=== PATIENT | female | born 1945 | race Caucasian/White ===

== ENCOUNTER 2017-12-02 10:09 | Outpatient (RCR) | payer MEDICARE, SELFPAY ==
[2017-11-25 10:44] LABS: Prothrombin Time (Protime)PT. 50.3 SECONDS (11.7-14.9)
[2017-11-25 11:25] LABS: International Normalized Ratio 5.8
[2017-11-28 10:56] LABS: International Normalized Ratio 4.5; Prothrombin Time (Protime)PT. 40.9 SECONDS (11.7-14.9)
[2017-12-02 10:35] LABS: International Normalized Ratio 1.6; Prothrombin Time (Protime)PT. 18.7 SECONDS (11.7-14.9)
== END 2017-12-02 10:10 | disposition home or self-care (01) ==
LOC: LAB 10:09
PROVIDERS: Family Provider Family Medicine; PCP Family Medicine; Visit Provider Internal Medicine Cardiovascular Disease
DX: I48.92 Unspecified atrial flutter (principal); Z79.01 Long term (current) use of 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
CPT/HCPCS: 36415; 85610

== ENCOUNTER → 2018-03-10 10:57 | Outpatient (CLI) | payer MEDICARE, SELFPAY ==
[2018-03-10 12:38] LABS: AST(SGOT) 28 U/L (15-37); Alanine Aminotransfer ALT/SGPT 33 U/L (13-56); Albumin, Serum 3.4 g/dL (3.2-5.0); Alkaline Phosphatase 108 U/L (45-117); Bilirubin, Direct 0.11 mg/dL (0.00-0.30); Magnesium 2.3 mg/dL (1.6-2.6); Protein, Total 7.4 g/dL (6.4-8.2); T4 Free Direct 1.37 ng/dL (0.76-1.46); Thyroid Stim Hormone (TSH) 1.16 uIU/mL (0.358-3.74)
== END ==
PROVIDERS: Family Provider Family Medicine; PCP Family Medicine; Visit Provider Nurse Practitioner Family
DX: E78.5 Hyperlipidemia, unspecified (principal); I48.92 Unspecified atrial flutter; Z87.74 Personal history of (corrected) congenital malformations of heart and circulatory system; Z79.899 Other long term (current) drug therapy
CPT/HCPCS: 36415; 80076; 83735; 84439; 84443

== ENCOUNTER → 2018-03-28 06:43 | Outpatient (CLI) | payer MEDICARE, SELFPAY ==
--- NOTE | 2018-03-28 14:41 | PFTCOMP ---
COMPLETE PULMONARY FUNCTION TEST INTERPRETATION Brief HPI: Patient is a 73 year old female, currently under the care of Sampson Cuevas, who presents to [facility] for complete pulmonary function tests secondary to diagnosis of hypertension. Respiratory therapist reports good effort and reproducible results. Interpretation: Forced expiration spirometry shows no large airways obstructive ventilatory defect with an FEV1 of 84% predicted. There is no significant bronchodilator response by ATS criteria. Spirograms are of good quality and plateau normally. The respiratory flow volume loop shows a normal pattern. Lung volumes by body plethysmography show a normal total lung capacity at 3.55 L, 85% predicted. All other lung volumes are within normal limits. Diffusion capacity by carbon monoxide is normal at 89% predicted. The airway resistance is elevated. Compared to previous pulmonary function tests from 08/23/2016, there has been a significant improvement in in DLCO by 38%. Impression: These pulmonary function tests are grossly within normal limits. There has been improvement compared to previous testing
--- NOTE | 2018-03-28 14:44 | PFTCOMP_ITS ---
COMPLETE PULMONARY FUNCTION TEST INTERPRETATION Brief HPI: Patient is a 73 year old female, currently under the care of Sampson Cuevas , who presents to [facility] for complete pulmonary function tests secondary to diagnosis of hypertension. Respiratory therapist reports good effort and reproducible results. Interpretation: Forced expiration spirometry shows no large airways obstructive ventilatory defect with an FEV1 of 84% predicted. There is no significant bronchodilator response by ATS criteria. Spirograms are of good quality and plateau normally. The respiratory flow volume loop shows a normal pattern. Lung volumes by body plethysmography show a normal total lung capacity at 3.55 L , 85% predicted. All other lung volumes are within normal limits. Diffusion capacity by carbon monoxide is normal at 89% predicted. The airway resistance is elevated. Compared to previous pulmonary function tests from 08/23/2016, there has been a significant improvement in in DLCO by 38%. Impression: These pulmonary function tests are grossly within normal limits. There has been improvement compared to previous testing
== END ==
PROVIDERS: Family Provider Family Medicine; PCP Family Medicine; Visit Provider Nurse Practitioner Family
DX: I10 Essential (primary) hypertension (principal); I48.92 Unspecified atrial flutter; Z79.01 Long term (current) use of 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; Z79.899 Other long term (current) drug therapy
CPT/HCPCS: 94060; 94726; 94729

== ENCOUNTER → 2018-07-16 16:12 | Outpatient (CLI) | payer MEDICARE, SELFPAY ==
[2018-07-16 18:09] LABS: ALB/GLOB Ratio 0.9 RATIO (0.9-2.4); AST(SGOT) 34 U/L (15-37); Alanine Aminotransfer ALT/SGPT 36 U/L (13-56); Albumin, Serum 3.7 g/dL (3.2-5.0); Alkaline Phosphatase 113 U/L (45-117); Anion Gap 10 (5-15); BUN 13 mg/dL (7-18); BUN/Creat Ratio 13.4 RATIO (10-20); Calcium,Total 8.9 mg/dL (8.5-10.1); Chloride 104 mmol/L (98-107); Cholesterol 235 mg/dL (200); Creatinine, Serum 0.97 mg/dL (0.55-1.02); EST Glomerular Filtration Rate 60 mL/min (>60); Est Glom Filt Rate - Afr Amer 72 mL/min (>60); Globulin 4.2 g/dL (2.2-4.2); Glucose 92 mg/dL (74-106); High Density Lipoprotein 56 mg/dL; Magnesium 2.3 mg/dL (1.6-2.6); Potassium 4.2 mmol/L (3.5-5.1); Protein, Total 7.9 g/dL (6.4-8.2); Sodium Level 143 mmol/L (136-145); T4 Free Direct 1.53 ng/dL (0.76-1.46); Thyroid Stim Hormone (TSH) 1.03 uIU/mL (0.358-3.74); Triglycerides 97 mg/dL; Uric Acid 2.7 mg/dL (2.6-6.0); Very Low Density Lipoprotein 19 mg/dL (5-40)
[2018-07-16 18:12] LABS: Vitamin B12 577 pg/mL (211-911)
[2018-07-16 19:39] LABS: Absolute Neutrophil Count 3.4 X10^3/uL (2.0-7.7); Basophil# 0.02 X10^3/uL; Basophil% 0.4 % (0-1); Eosinophil# 0.05 X10^3/uL; Hematocrit 40.8 % (37-47); Hemoglobin 13.3 g/dl (12.0-15.0); Lymphocyte % 20.1 % (19-41); Mean Corp Hgb Conc 32.6 g/gl (32-36); Mean Corpuscular Hgb 29.2 pg (27.0-32.0); Mean Corpuscular Volume 89.5 fL (81-99); Mean Platelet Vol. 11.1 fl (6.2-12.0); Monocyte# 0.47 X10^3/uL; Monocyte% 9.4 % (0-10); Neutrophil # 3.43 X10^3/uL (2.7-7.7); Neutrophil % 68.9 % (47-70); Platelet Count 156 K/mm3 (150-450); RBC Distribution Width CV 14.9 % (11.6-14.6); RBC Distribution Width SD 48.6 fl (35.1-43.9); Red Blood Count 4.56 M/mm3 (4.2-5.4)
[2018-07-16 19:48] LABS: POSITIVE COUNT NO; POSITIVE DIFFERENTIAL NO; POSITIVE MORPHOLOGY NO
[2018-07-16 20:27] LABS: Hemoglobin A1c 6.1 % (4.2-6.3)
[2018-07-18 11:23] LABS: H. Pylori Antibody (IgG) 0.67 (0.00-0.79)
== END ==
PROVIDERS: Family Provider Family Medicine; PCP Family Medicine; Visit Provider Family Medicine
DX: M19.041 Primary osteoarthritis, right hand (principal); M19.042 Primary osteoarthritis, left hand; F41.8 Other specified anxiety disorders; K21.9 Gastro-esophageal reflux disease without esophagitis; M65.30 Trigger finger, unspecified finger; I10 Essential (primary) hypertension
CPT/HCPCS: 36415; 73130; 80053; 80061; 82607; 82746; 83036; 83735; 84439; 84443; 84550; 85025; 86677

== ENCOUNTER → 2018-07-28 08:41 | Outpatient (CLI) | payer MEDICARE, SELFPAY ==
--- NOTE | 2018-07-28 08:50 | RAD_ITS ---
STUDY: X-RAY - ESOPHAGUS (BARIUM SWALLOW) WITH FLUOROSCOPY REASON FOR EXAM: Female, 73 years old. Dysphagia. TECHNIQUE: 17 view(s) of the esophagus were obtained following swallowing of barium. FLUOROSCOPY TIME (if supplied): (0:33) minutes/seconds COMPARISON: None. FINDINGS: There is no demonstrated esophageal foreign body. There is no demonstrated stricture or mucosal abnormality. There is a small hiatal hernia of the fundus of the stomach. No gastroesophageal reflux at this time. The patient ingested a 12 mm tablet of barium without any difficulty. There is atherosclerotic calcification of the aortic arch with tortuosity of the descending aorta. Findings suggest lobar inhomogeneous infiltrate in the posterior medial segment of the left lower lobe. There are diffuse degenerative changes of the visualized thoracic spine. RAD/Esophagus Only IMPRESSION: Small sliding hiatal hernia without gastroesophageal reflux. Electronically Signed: Jamaal Gonzales MD at 10:20 EDT Tel [phone], Service support ,
== END ==
PROVIDERS: Family Provider Family Medicine; PCP Family Medicine; Visit Provider Family Medicine
DX: K21.9 Gastro-esophageal reflux disease without esophagitis (principal)
CPT/HCPCS: 74220

== ENCOUNTER → 2018-07-30 14:54 | Outpatient (CLI) | payer MEDICARE, SELFPAY ==
[2018-08-04 09:22] LABS: H. PYLORI STOOL AG Negative (Negative)
== END ==
PROVIDERS: Family Provider Family Medicine; PCP Family Medicine; Visit Provider Family Medicine
DX: K21.9 Gastro-esophageal reflux disease without esophagitis (principal)

== ENCOUNTER → 2018-08-13 10:01 | Outpatient (CLI) | payer MEDICARE, SELFPAY ==
--- NOTE | 2018-08-13 10:08 | RAD_ITS ---
STUDY: X-RAY - LEFT HAND, ATTENTION third FINGER REASON FOR EXAM: Female, 73 years old. Fell in April, left middle finger pain TECHNIQUE: 3 view(s) of the finger were obtained. COMPARISON: Left hand 07/16/2018 FINDINGS: Normal metacarpal head. Normal metacarpophalangeal joint. There is demineralization of osseous structures. Normal proximal phalanx. Normal middle phalanx. Normal distal phalanx. Minimal osseous density along the ulna and dorsal cortex of the third proximal phalangeal head as on previous examination. There is mild degenerative arthrosis of the proximal interphalangeal joint. There is moderate degenerative arthrosis of the distal interphalangeal joint. No significant change of soft tissue swelling along the proximal third phalanx. RAD/Finger(s) Min 2 Views IMPRESSION: Possible mild avulsion injury involving the third proximal phalangeal head with adjacent stable soft tissue swelling. Stable osteopenia and degenerative changes. Electronically Signed: Raven Kohler MD at 3:26 EDT , Service support ,
== END ==
PROVIDERS: Family Provider Family Medicine; PCP Family Medicine; Referring Provider Family Medicine; Visit Provider Family Medicine
DX: S62.623A Displaced fracture of middle phalanx of left middle finger, initial encounter for closed fracture (principal)
CPT/HCPCS: 73140

== ENCOUNTER → 2018-08-16 09:52 | Outpatient (CLI) | payer MEDICARE, SELFPAY ==
--- NOTE | 2018-08-16 10:09 | BI_ITS ---
MAMMOGRAPHY - BILATERAL SCREENING 3-D LUIS SYNTHESIS REASON FOR EXAM: Female, 73 years old. Bilateral Screening 3-D tomosynthesis PERTINENT HISTORY: Open heart surgery 1964. No significant family history. TECHNIQUE: 2-D mammograms and 3-D Luis synthesis of the breast (s) were performed. CAD was performed. COMPARISON: 03/25/2017. FINDINGS: The breast composition is heterogeneously dense that can obscure small breast masses. Scattered benign calcifications are seen. No dense spiculated dominant masses or suspicious microcalcification cluster are identified. No new architectural distortion, asymmetric density, adenopathy, skin thickening or nipple retraction identified. There has been no significant change identified since the prior study. BI/SCREENING MAMM (CAD), BILAT IMPRESSION: No mammographic sign of malignancy. Routine yearly mammograms recommended. ASSESSMENT CATEGORY: BIRADS Category 2: Benign. A letter regarding these results will be sent to the patient by the facility within 30 days. FOLLOW UP RECOMMENDATION: Yearly follow up mammogram recommended. (A) Negative mammographic results should not deter biopsy as a palpable lesion if present should be followed based on clinical grounds and biopsy performed if clinically persistent for 3 months or increasing size. Approximately 10% of breast cancers are not detected by mammography. A normal mammogram should not delay biopsy of a clinically suspicious abnormality. Dense breast tissue may obscure neoplasm. Electronically Signed: Jasper Snow, at 21:09 EDT Tel , Service support ,
== END ==
PROVIDERS: Family Provider Family Medicine; PCP Family Medicine; Visit Provider Family Medicine
DX: Z12.31 Encounter for screening mammogram for malignant neoplasm of breast (principal)
CPT/HCPCS: 77063; 77067

== ENCOUNTER → 2018-08-20 09:52 | Outpatient (CLI) | payer MEDICARE, SELFPAY ==
--- NOTE | 2018-08-20 10:10 | RAD_ITS ---
CLINICAL HISTORY: Female, 73 years old. Dysphagia for months with food, patient feels food getting stuck in throat. Denies surgery or cancer. FLUOROSCOPY TIME (if supplied): (2:34) minutes/seconds TECHNIQUE: PROCEDURE: Double Air-contrast upper GI series. REASON FOR EXAM: See clinical history above. TECHNIQUE: After the administration of gas producing crystals, water, and barium solution orally, multiple images of the opacified gastrointestinal tract were obtained under fluoroscopic guidance. Additional upright right lateral cervical esophageal cine imaging was accomplished due to to the patient's symptomatology. FLUOROSCOPY TIME (if supplied): (2:34) minutes/seconds COMPARISON: No prior upper GI series . Correlation esophagram 07/28/[address] abdomen/pelvis 09/30/2017. FINDINGS: After the administration of gas producing crystals, water, and barium solution orally, multiple images of the opacified gastrointestinal tract were obtained under fluoroscopic guidance. Examination of the upper cervical esophagus shows mild laryngeal penetration and minimal aspiration below the vocal cords. Thoracic upper, mid and distal esophagus is dilated with prone MCKINLEY positioning and shows no persistent distal esophageal stricture although evaluation is difficult due to moderate appearing paraesophageal hernia superimposed. Paraesophageal hernia type 2 suspected with normal-appearing location of the GE junction suggested with sliding-type fundal hiatal or diaphragmatic hernia noted adjacent. Moderate appearing gastroesophageal reflux noted. Mild esophageal dysmotility suggested. The stomach shows no mucosal abnormality such as ulcer, mass or polyp but is not fully distended with air due to suspected paraesophageal hernia. Examination the duodenum appears within normal limits without ulceration mucosal thickening. Air contrast and single contrast duodenal bulb with and without compression appear within normal limits as does the C-loop of the duodenum visualized. RAD/Upper GI Series Only IMPRESSION: Minimal laryngeal penetration and minimal aspiration not below vocal cords noted. If clinically indicated, modified esophagram with speech therapy may more helpful for further evaluation. Paraesophageal hernia type II suspected versus large sliding-type hiatal hernia as described. Clinical correlation recommended. Electronically Signed: Jasper Snow, at 13:41 EDT Tel , Service support ,
== END ==
PROVIDERS: Family Provider Family Medicine; PCP Family Medicine; Referring Provider Family Medicine; Visit Provider Family Medicine
DX: K21.9 Gastro-esophageal reflux disease without esophagitis (principal)
CPT/HCPCS: 74246

== ENCOUNTER → 2018-08-26 08:29 | Outpatient (CLI) | payer MEDICARE, SELFPAY ==
--- NOTE | 2018-08-26 08:34 | CT_ITS ---
STUDY: CT CHEST WITHOUT CONTRAST REASON FOR EXAM: Female, 73 years old. Infiltrate RADIATION DOSAGE (If Supplied By Facility): CTDIvol = ( 13.24 ) mGy, DLP = ( 430.00 ) mGycm TECHNIQUE: Transaxial imaging was performed without the administration of intravenous contrast material. Multiplanar coronal and sagittal images were reformatted. Individualized dose optimization techniques were used for this CT. COMPARISON: April 11, 2016 CT chest FINDINGS: There are a few scattered peripheral groundglass opacities within the right middle lobe. There are groundglass opacities within the lung bases and in the middle lobe. There is no demonstrated pleural abnormality. There is significant enlargement of the left pulmonary artery similar to prior study measuring 4.5 cm. There is mild enlargement of the right pulmonary artery measuring 2.8 cm. This calcification on the left side of the heart and pericardium. There are coronary artery calcifications. There is a pretracheal lymph node measuring 1.3 x 1.3 cm stable since prior study. Normal hilar regions. There is atherosclerotic calcification of the aortic arch with tortuosity and elongation of the aortic arch and descending thoracic aorta. There are multi-level degenerative changes of the thoracic spine. The liver appears hyperdense suggesting history of amiodarone therapy. There is a hiatal hernia measuring 4.[address]/Chest without Contrast IMPRESSION: There is a persistent pattern of enlarged left greater than right pulmonary artery consider pulmonary arterial hypertension pulmonary valve stenosis. There is stable calcification of the left side of the heart and the pericardium and no portion of the wall of the heart. There are coronary calcifications. There is stable lymph nodes in the mediastinum There is groundglass opacity within the lungs which is suspicious for pulmonary edema or potentially cardiogenic edema. There is a minimal focus of bright middle lobe atelectasis and/or scarring which is less than prior study. Hiatal hernia The liver is hyperdense suggesting possible reaction to medical therapy including amiodarone. Electronically Signed: Garima Booth MD at 19:45 EDT Tel , Service support ,
== END ==
PROVIDERS: Family Provider Family Medicine; PCP Family Medicine; Referring Provider Family Medicine; Visit Provider Family Medicine
DX: R91.8 Other nonspecific abnormal finding of lung field (principal)
CPT/HCPCS: 71250

== ENCOUNTER → 2018-08-27 09:54 | Outpatient (CLI) | payer MEDICARE, SELFPAY ==
--- NOTE | 2018-08-27 10:06 | BD_ITS ---
STUDY: DUAL ENERGY X-RAY ABSORPTIOMETRY / DXA REASON FOR EXAM: Female, 73 years old. The patient is postmenopausal. Loss of height. TECHNIQUE: Bone Mineral Density (BMD) measurements of lumbar spine and bilateral hips were obtained. # of Images: 6 COMPARISON: Comparison is made with prior study dated July 05, 2009. FINDINGS: Lumbar Spine (L1-L4): g/cm2 (0.861) / T-score (-2.8) / Z-score (-1.1) Findings are suggestive of osteoporosis with a high fracture risk. Left Femur Total: g/cm2 (0.778) / T-score (-1.8) / Z-score (-0.2) Left Femoral Neck: g/cm2 (0.704) / T-score (-2.4) / Z-score (-0.6) Right Femur Total: g/cm2 (0.755) / T-score (-2.0) / Z-score (-0.4) Right Femoral Neck: g/cm2 (0.700) / T-score (-2.4) / Z-score (-0.6) The T-Scores on the most recent prior examination were: Lumbar Spine (L1-L4): There has been improvement of bone density since the previous examination. Left Femur Total: which represents a worsening of 12.7%. Right Femur Total: which represents a worsening of 12.8%. BD/Dexa Bone Density Study IMPRESSION: The patient is considered osteoporotic as outlined below according to World Aravind Organization (WHO) criteria with a high fracture risk. There has been worsening of bone density since the previous examination. Reference Information: The T-score is the number of standard deviations above or below the standard which is normal for young adults at their peak bone mineral density. The World Health Organization (WHO) interprets the T-scores as follows: Above -1 Normal bone density Between -1 and -2.5 Osteopenia Equal to / or below -2.5 Osteoporosis As a practical clinical guideline, osteopenia may be graded as follows: Mild -1 through -1.5 Moderate -1.6 through -2.0 Severe -2.1 through -2.4 The Z-score is the number of standard deviations above or below age-matched controls. A Z-score of less than -1.5 would be considered abnormal. References: 1. NIH Osteoporosis and Related Bone Diseases http://www.osteo.org 2. International Society for Clinical Densitometry http://www.iscd.org 3. National Osteoporosis Foundation http://www.nof.org Electronically Signed: Jamaal Gonzales MD at 8:35 EDT Tel [phone], Service support ,
== END ==
PROVIDERS: Family Provider Family Medicine; PCP Family Medicine; Referring Provider Family Medicine; Visit Provider Family Medicine
DX: Z78.0 Asymptomatic menopausal state (principal); M85.80 Other specified disorders of bone density and structure, unspecified site
CPT/HCPCS: 77080

== ENCOUNTER → 2018-09-01 08:42 | Outpatient (CLI) | payer MEDICARE, SELFPAY ==
--- NOTE | 2018-09-01 08:43 | US_ITS ---
STUDY: ABDOMINAL ULTRASOUND - RIGHT UPPER QUADRANT REASON FOR VISIT: Female, 73 years old. Generalized abdominal pain with intermittent nausea. TECHNIQUE: Ultrasound evaluation of the right upper quadrant was performed with real-time and static phan-scale imaging. TECHNICAL QUALITY: Satisfactory COMPARISON: CT chest 08/26/2018, CT abdomen and pelvis 09/30/2017. FINDINGS: Liver: The liver measures 16.2 cm. There is normal echogenicity of the liver. The bile ducts are within normal limits. There is hepatic color flow. The direction of portal flow is hepatopetal. Minimal gallbladder sludge. 5 mm calculus in the gallbladder body. Gallbladder: Normal distended gallbladder. The gallbladder wall measures 2.6 mm. There is a negative sonographic Leblanc's sign. There is no pericholecystic fluid. There are no gallstones. Common Bile Duct (C.B.D.): The common bile duct measures 4.1 mm. Pancreas: Normal size of the head, body and tail of the pancreas. There is normal echogenicity of the pancreas. There is no demonstrated pancreatic mass or cyst. Right Kidney: Normal size of the right kidney. The right kidney measures 9.3 cm. Normal renal cortex. The right cortex measures 1.2 cm. There is no demonstrated renal mass or cyst. There is no right hydronephrosis. US/Gallbladder IMPRESSION: Minimal cholelithiasis. No evidence of acute cholecystitis. Nondilated biliary tree. No acute abdominal process is evident. Electronically Signed: Karthik Samina, at 13:00 EDT Tel , Service support ,
== END ==
PROVIDERS: Family Provider Family Medicine; PCP Family Medicine; Referring Provider Surgery; Visit Provider Surgery
DX: R10.9 Unspecified abdominal pain (principal)
CPT/HCPCS: 76705

== ENCOUNTER 2018-09-10 08:44 | Day surgery (SDC) | payer MEDICARE, SELFPAY ==
[2018-09-10 09:01] VITALS: BP 137/80; PULSE 66; RESP 16; TEMP 36.2; O2SAT 95
== END 2018-09-10 09:40 | disposition home or self-care (01) ==
LOC: EN 08:44
PROVIDERS: Family Provider Family Medicine; PCP Family Medicine; Referring Provider Surgery; Visit Provider Surgery
PROC: F00ZJWZ Instrumental Swallowing and Oral Function Assessment using Swallowing Equipment (ICD-10-PCS; CPT 43235; principal; 2018-09-10 08:55)
DX: K21.9 Gastro-esophageal reflux disease without esophagitis (principal); K44.9 Diaphragmatic hernia without obstruction or gangrene
CPT/HCPCS: 91010

== ENCOUNTER → 2018-09-27 10:00 | Outpatient (CLI) | payer MEDICARE, SELFPAY ==
[2018-09-09 09:55] VITALS: BMI 26.7
[2018-09-27 11:23] LABS: Magnesium 2.2 mg/dL (1.6-2.6)
== END ==
PROVIDERS: Family Provider Family Medicine; PCP Family Medicine; Referring Provider Nurse Practitioner Family; Visit Provider Nurse Practitioner Family
DX: I10 Essential (primary) hypertension (principal)
CPT/HCPCS: 36415; 83735

== ENCOUNTER 2018-10-07 09:07 | Day surgery (SDC) | payer MEDICARE, SELFPAY ==
[2018-09-09 09:55] VITALS: BMI 26.7
[2018-10-07] VITALS (9 sets, daily range): BP systolic 136–176; BP diastolic 78–101; PULSE 69–73; RESP 16–78; TEMP 36–36.9; O2SAT 91–99; BMI 26.4
--- NOTE | 2018-10-07 06:08 | PCM.HP.STD ---
Problem List (1) Esophageal hiatal hernia Status: Acute History of Present Illness Date of Admission: 10/07/18 The patient is a 73 year old F who presented to the office August 25, 2018. Surgical consultation was been requested regarding gastroesophageal reflux disease and a large paraesophageal hiatal hernia. She had a upper GI barium study demonstrating suggestion of esophageal motility and impingement upon the distal esophagus by the large paraesophageal hiatal hernia. She does have trouble eating meat. She has a dry cough and intermittently hoarse voice. She is previously had heart surgery for a congenital defect. Also has had a hysterectomy and appendectomy. Gallbladder ultrasound showed small gallstones. She has a history of atrial flutter with tachyarrhythmia and is on Eliquis and amiodarone. Past Medical History Past Medical History (Chronic Problems): Chronic Problems (Last Updated 09/09/18 @ 07:44 by ALKA Hernandez) Paroxysmal atrial fibrillation (Chronic) DCCV in April 2016; Essential (primary) hypertension (Chronic) Dilatation of pulmonic artery (Chronic) Daytime somnolence (Chronic) Congenital heart disease (Chronic) 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, left (Chronic) Interatrial septal repair [employer] current use of anticoagulant (Chronic) GERD (gastroesophageal reflux disease) (Chronic) Atrial flutter (Chronic) Medical History: Medical History (Last Updated 09/09/18 @ 07:44 by ALKA Hernandez) Paroxysmal atrial fibrillation (Chronic) I48.0 DCCV in April 2016; Essential (primary) hypertension (Chronic) I10 Esophageal hiatal hernia (Acute) K44.9 Dilatation of pulmonic artery (Chronic) I28.8 Daytime somnolence (Chronic) R40.0 Congenital heart disease (Chronic) Q24.9 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, left (Chronic) I51.7 Interatrial septal repair [employer] current use of anticoagulant (Chronic) Z79.01 GERD (gastroesophageal reflux disease) (Chronic) K21.9 Hypotension (Acute) I95.9 Atrial flutter (Chronic) I48.92 Atypical chest pain R07.89 Hiatal hernia K44.9 Allergies No Known Allergies Allergy (Verified 09/09/18 09:56) Home Medications: Ambulatory Orders Medication Instructions Recorded Pantoprazole Sodium [Protonix] 40 mg PO DAILY 09/02/15 Sertraline HCl 50 mg PO DAILY 09/02/15 amiodarone 200 mg tablet 200 mg PO DAILY #90 tab 11/14/17 apixaban 5 mg tablet 5 mg PO BID #14 tab 01/02/18 diltiazem CD 120 mg 120 mg PO DAILY #90 cap 03/10/18 capsule,extended release 24 hr gabapentin 300 mg capsule 300 mg PO DAILY 08/25/18 levomefolate calcium 15 mg tablet 15 mg PO DAILY 08/25/18 magnesium 400 mg (as magnesium 400 mg PO DAILY tab 09/29/18 oxide) tablet Surgical History: Surgical History (Last Updated 08/25/18 @ 09:52 by Ophelia Blakely) Hx of CABG (Resolved) Z95.1 Hx of appendectomy (Resolved) Z90.49 interatrial septal repair (Resolved) History of hysterectomy Z90.710 Surgical History: appendectomy, hysterectomy, - - ASD repair in 1963. Psychiatric History: No pertinent psych hx [employer] History: No pertinent [employer] CON[employer]IST history Smoking Status: Never smoker - *Family History Paternal Family History: Family History (Last Updated 08/25/18 @ 09:54 by Ophelia Blakely) Mother Hypertension Arthritis Heart disease Father Cancer Brother Cancer Son CVA (cerebral vascular accident) Diabetes Brother TIA (transient ischemic attack) Sister Cancer Thyroid disorder History Items: No pertinent history Maternal Family History: Family History (Last Updated 08/25/18 @ 09:54 by Ophelia Blakely) Mother Hypertension Arthritis Heart disease Father Cancer Brother Cancer Son CVA (cerebral vascular accident) Diabetes Brother TIA (transient ischemic attack) Sister Cancer Thyroid disorder History Items: No pertinent history Review of Systems Constitutional: Denies: Anorexia HEENT: Reports: Difficulty Swallowing Cardiovascular: Denies: Chest Pain Respiratory: Reports: Cough Gastrointestinal: Denies: Abdominal Pain Genitourinary: Denies: Dysuria Neurological: Denies: Balance problems Psychiatric: Denies: Anxiety Endocrine: Denies: Change in Body Habitus VTE Information - Inpt Only VTE Present on Admission: No - Physical Exam General: Alert, Oriented x3, Cooperative Oral: Moist Mucosa Neck: Supple, Negative Carotid Bruits Lungs: Clear to auscultation, Normal air movement Cardiovascular: Irregular Rate, Murmur Abdomen: Bowel Sounds Present, Non Tender, - - Well-healed Pfannenstiel incision Extremities: No clubbing Musculoskeletal: No Tenderness to Palpation of Joints or Extremities Neurological: Cranial nerves II-XII grossly intact Psych/Mental Status: Normal Affect Assessment/Plan All Active Problems (Last Updated 09/09/18 @ 07:44 by Sampson Cuevas NP-C) Esophageal hiatal hernia (Acute) Hx of CABG (Resolved) Hx of appendectomy (Resolved) interatrial septal repair (Resolved) Hypotension (Acute) I plan for a esophagogastroduodenoscopy with possible biopsy or polypectomy as indicated. Careful inspection of her EG junction and hiatal hernia will be noted. She has had an opportunity ask and have questions answered. We will proceed as noted. PH probe placement is anticipated. Jasper Talley M.D., F.A.C.S.
--- NOTE | 2018-10-07 06:12 | HP.PCM_ITS ---
Problem List (1) Esophageal hiatal hernia Status: Acute History of Present Illness Date of Admission: 10/07/18 The patient is a 73 year old F who presented to the office August 25, 2018. Surgical consultation was been requested regarding gastroesophageal reflux disease and a large paraesophageal hiatal hernia. She had a upper GI barium study demonstrating suggestion of esophageal motility and impingement upon the distal esophagus by the large paraesophageal hiatal hernia. She does have trouble eating meat. She has a dry cough and intermittently hoarse voice. She is previously had heart surgery for a congenital defect. Also has had a hysterectomy and appendectomy. Gallbladder ultrasound showed small gallstones. She has a history of atrial flutter with tachyarrhythmia and is on Eliquis and amiodarone. 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 (Chronic) GERD (gastroesophageal reflux disease) (Chronic) Atrial flutter (Chronic) Medical History: Medical History (Last Updated 09/09/18 @ 07:44 by ALKA Hernandez) Paroxysmal atrial fibrillation (Chronic) I48.0 DCCV in April 2016; Essential (primary) hypertension (Chronic) I10 Esophageal hiatal hernia (Acute) K44.9 Dilatation of pulmonic artery (Chronic) I28.8 Daytime somnolence (Chronic) R40.0 Congenital heart disease (Chronic) Q24.9 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, left (Chronic) I51.7 Interatrial septal repair long 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 care 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 current use of anticoagulant (Chronic) Z79.01 GERD (gastroesophageal reflux disease) (Chronic) K21.9 Hypotension (Acute) I95.9 Atrial flutter (Chronic) I48.92 Atypical chest pain R07.89 Hiatal hernia K44.9 Allergies No Known Allergies Allergy (Verified 09/09/18 09:56) Home Medications: Ambulatory Orders Medication Instructions Recorded Pantoprazole Sodium [Protonix] 40 mg PO DAILY 09/02/15 Sertraline HCl 50 mg PO DAILY 09/02/15 amiodarone 200 mg tablet 200 mg PO DAILY #90 tab 11/14/17 apixaban 5 mg tablet 5 mg PO BID #14 tab 01/02/18 diltiazem CD 120 mg 120 mg PO DAILY #90 cap 03/10/18 capsule,extended release 24 hr gabapentin 300 mg capsule 300 mg PO DAILY 08/25/18 levomefolate calcium 15 mg tablet 15 mg PO DAILY 08/25/18 magnesium 400 mg (as magnesium 400 mg PO DAILY tab 09/29/18 oxide) tablet Surgical History: Surgical History (Last Updated 08/25/18 @ 09:52 by Ophelia Blakely) Hx of CABG (Resolved) Z95.1 Hx of appendectomy (Resolved) Z90.49 interatrial septal repair (Resolved) History of hysterectomy Z90.710 Surgical History: appendectomy, hysterectomy, - - ASD repair in 1963. 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 ROUNDER history Smoking Status: Never smoker - *Family History Paternal Family History: Family History (Last Updated 08/25/18 @ 09:54 by Ophelia Blakely) Mother Hypertension Arthritis Heart disease Father Cancer Brother Cancer Son CVA (cerebral vascular accident) Diabetes Brother TIA (transient ischemic attack) Sister Cancer Thyroid disorder History Items: No pertinent history Maternal Family History: Family History (Last Updated 08/25/18 @ 09:54 by Ophelia Blakely) Mother Hypertension Arthritis Heart disease Father Cancer Brother Cancer Son CVA (cerebral vascular accident) Diabetes Brother TIA (transient ischemic attack) Sister Cancer Thyroid disorder History Items: No pertinent history Review of Systems Constitutional: Denies: Anorexia HEENT: Reports: Difficulty Swallowing Cardiovascular: Denies: Chest Pain Respiratory: Reports: Cough Gastrointestinal: Denies: Abdominal Pain Genitourinary: Denies: Dysuria Neurological: Denies: Balance problems Psychiatric: Denies: Anxiety Endocrine: Denies: Change in Body Habitus VTE Information - Inpt Only VTE Present on Admission: No - Physical Exam General: Alert, Oriented x3, Cooperative Oral: Moist Mucosa Neck: Supple, Negative Carotid Bruits Lungs: Clear to auscultation, Normal air movement Cardiovascular: Irregular Rate, Murmur Abdomen: Bowel Sounds Present, Non Tender, - - Well-healed Pfannenstiel incision Extremities: No clubbing Musculoskeletal: No Tenderness to Palpation of Joints or Extremities Neurological: Cranial nerves II-XII grossly intact Psych/Mental Status: Normal Affect Assessment/Plan All Active Problems (Last Updated 09/09/18 @ 07:44 by Sampson Cuevas NP-C) Esophageal hiatal hernia (Acute) Hx of CABG (Resolved) Hx of appendectomy (Resolved) interatrial septal repair (Resolved) Hypotension (Acute) I plan for a esophagogastroduodenoscopy with possible biopsy or polypectomy as indicated. Careful inspection of her EG junction and hiatal hernia will be noted. She has had an opportunity ask and have questions answered. We will proceed as noted. PH probe placement is anticipated. Jasper Talley M.D., F.A.C.S.
--- NOTE | 2018-10-07 10:25 | EGD_PTH ---
PATIENT: RUBEN LOBO LOC: EN U#:[id number] AGE/SX: 73/F ROOM: RE10/07/[address]: Dr. Jasper Talley MD : 1945 BED: DIS: 10/07/2018 SPEC #: [id number] RECD: 10/07/18 12:21 STATUS: NAKIA CASSIDY #: [id number] KATHY: 10/07/18 10:[address]: Jasper Talley DEPT: SURGICAL PATHOLOGY RECD BY: Gerber Larsen ENTERED: 10/07/18 13:36 SP TYPE: EGD BIOPSY OT DR: Dr. Jame De La Garza MD Tissues: A - Gastric mucous membrane B - POLYP C - Esophagus, NOS Procedures: Special Stain Group I Surgery Specimen Level IV GMS Stain (control) HEADER OPERATION: EGD, PH probe (MOD) PRE-OP DIAGNOSIS: GERD TISSUE SUBMITTED: A - Antrum biopsy for H. pylori and path, B - Fundic polyp biopsy, C - Distal esophagus biopsy MICROSCOPIC DIAGNOSIS A. Gastric antrum, biopsy: Chronic gastritis. B. Gastric fundus, biopsy: Fundic gland polyp. C. Distal esophagus, biopsy: Consistent with reflux esophagitis. Focal acute esophagitis. Negative for fungal organisms. AM:juan josé 10/08/18 COMMENT A. The results of immunohistochemistry for Helicobacter pylori will be reported separately ([id number]). C. GMS stain with matched control was used in the evaluation of this case. MICROSCOPIC DESCRIPTION Slides are reviewed. GROSS DESCRIPTION A - Received in fixative is one container labeled with the patient's name and designated antrum biopsy for H. pylori and path. The specimen consists of one irregular fragment of light cohn soft tissue that measures 0.4 x 0.3 x 0.1 cm. The specimen is totally submitted in one cassette. B - Received in fixative is one container labeled with the patient's name and designated fundic polyp biopsy. The specimen consists of one irregular fragment of light cohn soft tissue that measures 0.3 x 0.3 x 0.1 cm. The specimen is totally submitted in one cassette. C - Received in fixative is one container labeled with the patient's name and designated distal esophagus biopsy. The specimen consists of multiple irregular fragments of light cohn soft tissue that in aggregate measure 0.7 x 0.3 x 0.1 cm. The specimen is totally submitted in one cassette. / SJ:rg 10/07/18 TC:2 CPT: 70938 x3, 72577
--- NOTE | 2018-10-07 10:25 | IMM_PTH ---
PATIENT: RUBEN LOBO LOC: EN U#:[id number] AGE/SX: 73/F ROOM: RE10/07/[address]: Dr. Jasper Talley MD : 1945 BED: DIS: 10/07/2018 SPEC #: [id number] RECD: 10/07/18 13:58 STATUS: NAKIA REQ #: [id number] KATHY: 10/07/18 10:[address]: Jasper Talley DEPT: IMMUNOHISTOCHEMISTRY RECD BY: Britney Presley ENTERED: 10/07/18 13:59 SP TYPE: IMMUNO OTHR DR: Dr. Jame De La Garza MD Tissues: A - Stomach, NOS Procedures: H Pylori (initial) PHYSICIAN & INSTITUTION [place] [address] SPECIMEN INFORMATION: Tissue Source: A - Antrum biopsy Clinical Info: GERD Specimen Number: [id number] CPT code: 24304 METHODOLOGY: Deparaffinized sections of prefer/formalin-fixed tissue or PAP/DQ stained slides are incubated with monoclonal/polyclonal antibodies/oligonucleotide probes. Localization is made via biotin free immunoperoxidase method. Appropriate controls are performed and reacted as expected. Results on target cell population are indicated in the following table: RESULTS: ANTIBODY / CLONE RESULT Block A H Pylori (polyclonal) negative These tests were developed and their performance characteristics determined by [facility]. They may not have been cleared or approved by the U.S. Food and Drug Administration. The FDA has determined that such clearance or approval is not necessary. INTERPRETATION: A. Antrum, biopsy: Negative for Helicobacter pylori organisms. AM:juan josé 10/08/18
--- NOTE | 2018-10-07 11:15 | OP.ENDO_ITS ---
Patient Name: Christine Kenney Procedure Date: 10/07/2018 10:47 AM Date of : 1945 Age: 73 Procedure: Upper GI endoscopy Indications: Esophageal reflux Providers: Jasper Talley MD Referring MD: Jasper Talley MD Medicines: Midazolam 3 mg IV, Meperidine 100 mg IV Patient Profile: Previously obtained barium swallow showed a herniation in the stomach. Complications: No immediate complications. Procedure: Pre-Anesthesia Assessment: - Prior to the procedure, a History and Physical was performed, and patient medications and allergies were reviewed. The patient's tolerance of previous anesthesia was also reviewed. The risks and benefits of the procedure and the sedation options and risks were discussed with the patient. All questions were answered, and informed consent was obtained. Prior Anticoagulants: The patient has taken no previous anticoagulant or antiplatelet agents. ASA Grade Assessment: II - A patient with mild systemic disease. After reviewing the risks and benefits, the patient was deemed in satisfactory condition to undergo the procedure. After obtaining informed consent, the endoscope was passed under direct vision. Throughout the procedure, the patient's blood pressure, pulse, and oxygen saturations were monitored continuously. The gastroscope was introduced through the mouth, and advanced to the second part of duodenum. The upper GI endoscopy was accomplished without difficulty. The patient tolerated the procedure well. Moderate Sedation: Moderate (conscious) sedation was personally administered by the endoscopist. The following parameters were monitored: oxygen saturation, heart rate, blood pressure, and response to care. Total physician intraservice time was 15 minutes. Scope In: 10:58:05 AM Scope Out: 11:05:34 AM Total Procedure Duration Time 0 hours 7 minutes 29 seconds Findings: The Z-line was regular and was found 36 cm from the incisors. Biopsies were taken with a cold forceps for histology. A medium-sized hiatal hernia was present. A few 4 mm sessile polyps with no stigmata of recent bleeding were found in the gastric fundus. The polyp was removed with a cold biopsy forceps. Resection and retrieval were complete. Mild antral erythema--biopsied The examined duodenum was normal. A hiatal hernia was present. The CERNO capsule with delivery system was introduced through the mouth and advanced into the esophagus, such that the CERON pH capsule was positioned 30 cm from the incisors, which was 6 cm proximal to the GE junction. The CERON pH capsule was then deployed and attached to the esophageal mucosa. The delivery system was then withdrawn. Endoscopy was utilized for probe placement and diagnostic evaluation. Impression: - Z-line regular, 36 cm from the incisors. Biopsied. - Medium-sized hiatal hernia. pH probe placed - A few gastric polyps. Resected and retrieved. Antrum biopsied - Normal examined duodenum. Recommendation: - Return to my office in 1 week. - Resume previous diet. - Recommend acid suppression medication be held until after 48 hours - Discharge patient to home. - Continue present medications. Procedure Code(s): --- Professional --- 89926, Esophagogastroduodenoscopy, flexible, transoral; with biopsy, single or multiple 96985, 59, Moderate sedation services provided by the same physician or other qualified health child care centre director performing the diagnostic or therapeutic service that the sedation supports, requiring the presence of an independent trained observer to assist in the monitoring of the patient's level of consciousness and physiological status; initial 15 minutes of intraservice time, patient age 5 years or older Diagnosis Code(s): --- Professional --- K44.9, Diaphragmatic hernia without obstruction or gangrene K31.7, Polyp of stomach and duodenum K21.9, Gastro-esophageal reflux disease without esophagitis CPT copyright 2017 [employer]. All rights reserved. The codes documented in this report are preliminary and upon wet process miller review may be revised to meet current compliance requirements. Jasper Talley MD 10/07/2018 11:15:22 AM This report has been signed electronically. Number of Addenda: 0 Note Initiated On: 10/07/2018 10:47 AM
--- OUTSIDE RECORDS SUMMARY | 2018-11-18 22:17 | XMS RPT_ITS ---
:1945 Author Organization OHIP Support Name Relationship Address Phone ATEN, ASPEN Unavailable Unavailable + [place] [address] WESTON LOBO Unavailable [address] + [place] [address] R Unavailable Unavailable Unavailable ATEN, ASPEN Unavailable . + [place], [place] / [facility] Unavailable [address] + [place] [address] R Unavailable Unavailable Unavailable ATEN, ASPEN Unavailable Unavailable + [place] [facility] [facility] Unavailable [address] + [place] [address] R Unavailable Unavailable Unavailable ATEN, ASPEN Unavailable . + [place] / [facility] Unavailable [address] + [place] [address] R Unavailable Unavailable Unavailable ATEN, ASPEN Unavailable Unavailable + [facility] Unavailable [address] + [place] [address] R Unavailable Unavailable Unavailable ATEN, ASPEN Unavailable Unavailable + [facility] Unavailable [address] + [place] [address] R Unavailable Unavailable Unavailable ATEN, ASPEN Unavailable Unavailable + [facility] Unavailable [address] + [place] [address] R Unavailable Unavailable Unavailable ATEN, ASPEN Unavailable . + ., [place] . [facility] Unavailable [address] + [place] [address] R Unavailable Unavailable Unavailable ATEN, ASPEN Unavailable Unavailable + [facility] Unavailable [address] + [place] [address] R Unavailable Unavailable Unavailable ATEN, ASPEN Unavailable Unavailable + [facility] Unavailable [address] + [place] [address] R Unavailable Unavailable Unavailable ATEN, ASPEN Unavailable Unavailable + [facility] Unavailable [address] + [place] [address] R Unavailable Unavailable Unavailable ATEN, ASPEN Unavailable . + [place] [address] [facility] Unavailable [address] + [place] [address] R Unavailable Unavailable Unavailable ATEN, ASPEN Unavailable Unavailable + [facility] Unavailable [address] + [place] [address] R Unavailable Unavailable Unavailable ATEN, ASPEN Unavailable Unavailable + [facility] Unavailable [address] + [place] [address] R Unavailable Unavailable Unavailable ATEN, ASPEN Unavailable Unavailable + [place] [address] [facility] Unavailable [address] + [place] [address] R Unavailable Unavailable Unavailable ATEN, ASPEN Unavailable Unavailable + [place] [address] [facility] Unavailable [address] + [place] [address] R Unavailable Unavailable Unavailable ATEN, ASPEN Unavailable Unavailable + [place] [address] [facility] Unavailable [address] + [place] [address] R Unavailable Unavailable Unavailable ATEN, ASPEN Unavailable Unavailable + [place] [address] [facility] Unavailable [address] + [place] [address] R Unavailable Unavailable Unavailable YAMIL WE[facility]ON Unavailable [address] + [place] [address] R Unavailable Unavailable Unavailable YAMIL WESTON Unavailable [address] + [place] [address] R Unavailable Unavailable Unavailable [facility] L[facility] Unavailable [address] + [place] [address] R Unavailable Unavailable Unavailable [facility] LOBO Unavailable [address] + [place] [address] R Unavailable Unavailable Unavailable [facility] L[facility] Unavailable [address] + [place] [address] R Unavailable Unavailable Unavailable [facility] Unavailable [address] + [place] [address] R Unavailable Unavailable Unavailable [facility] LOBO Unavailable [address] + [place] [address] R Unavailable Unavailable Unavailable [facility] L[facility] Unavailable [address] + [place] [address] R Unavailable Unavailable Unavailable [facility] Unavailable [address] + [place] [address] R Unavailable Unavailable Unavailable Care Team Providers Name Role Phone SONNY BARRON (OD) Attending Unavailable ALESIA DE LA GARZA Referring Unavailable BHATIAMARIO Attending Unavailable MARIO BHATIA Referring Unavailable Roof, Sampson H Attending Unavailable Roof, Sampson H Referring Unavailable De La Garza, Jame Primary Care Unavailable MoodJack thurman Attending Unavailable De La Garza, Jame Primary Care Unavailable Moodispawang Jack Referring Unavailable MoodtonypaJack piña Attending Unavailable Moodispawang Jack Referring Unavailable De La Garza, Jame Primary Care Unavailable Moodispaw, Jack Attending Unavailable De La Garza, Jame Referring Unavailable Amy Sierra Attending Unavailable Trudy Villa Attending Unavailable Roof, Sampson H Attending Unavailable De La Garza, Jame Referring Unavailable De La Garza, Jame Primary Care Unavailable Roof, Sampson H Attending Unavailable Roof, Sampson H Referring Unavailable De La Garza, Jame Primary Care Unavailable Roof, Sampson H Attending Unavailable Roof, Sampson H Referring Unavailable De La Garza, Jame Primary Care Unavailable Doug Brewer Attending Unavailable Roof, Sampson H Referring Unavailable De La Garza, Jame Attending Unavailable De La Garza, Jmae Referring Unavailable De La Garza, Jame Primary Care Unavailable De La Garza, Jame Attending Unavailable De La Garza, Jame Referring Unavailable De La Garza, Jame Primary Care Unavailable De La Garza, Jame Attending Unavailable De La Garza, Jame Referring Unavailable De La Garza, Jame Primary Care Unavailable De La Garza, Jame Attending Unavailable De La Garza, Jame Primary Care Unavailable De La Garza, Jame Attending Unavailable De La Garza, Jame Referring Unavailable De La Garza, Jame Primary Care Unavailable De La Garza, Jame Attending Unavailable De La Garza, Jame Referring Unavailable De La Garza, Jame Primary Care Unavailable De La Garza, Jame Attending Unavailable De La Garza, Jame Referring Unavailable De La Garza, Jame Primary Care Unavailable De La Garza, Jame Attending Unavailable De La Garza, Jame Referring Unavailable De La Garza, Jame Primary Care Unavailable Cebul, Jasper Attending Unavailable De La Garza, Jame Referring Unavailable Cebul, Jasper Attending Unavailable Cebul, Jasper Referring Unavailable De La Garza, Jame Primary Care Unavailable Calabretta, Parish Attending Unavailable Calabretta, Parish Referring Unavailable De La Garza, Jame Primary Care Unavailable Roof, Sampson H Attending Unavailable De La Garza, Jame Referring Unavailable Calabretta, Parish Attending Unavailable Calabretta, Parish Referring Unavailable Roof, Sampson H Attending Unavailable Roof, Sampson H Referring Unavailable De La Garza, Jame Primary Care Unavailable Cebul, Jasper Attending Unavailable Cebul, Jasper Referring Unavailable De La Garza, Jame Primary Care Unavailable Cebul, Jasper Attending Unavailable De La Garza, Jame Referring Unavailable Cebul, Jasper Attending Unavailable PROBLEMS PROBLEMS DATE TYPE CONDITION / CODE ATTENDING STATUS SOURCE 10/20/2018 Unknown K21.9 - CeJasper alonso Active [place] [facility] reflux disease [facility] without esophagitis Repository / K21.9(ICD-10) 10/20/2018 Unknown K44.9 - CebulJasper Active [place] Diaphragmatic hernia Community without obstruction Hospital or gangrene / Repository K44.9(ICD-10) 10/20/2018 Unknown K31.7 - Polyp of Jasper Talley Active [place] stomach and duodenum Community / K31.7(ICD-10) Hospital Repository 09/27/2018 Unknown I10 - Essential Sampson Cuevas Active [place] (primary) Community hypertension / Hospital I10(ICD-10) Repository 09/27/2018 Unknown I48.0 - Paroxysmal Sampson Cuevas Active [place] atrial fibrillation Community / I48.0(ICD-10) Hospital Repository 09/27/2018 Unknown Q24.9 - Congenital Sampson Cuevas Active [place] malformation of Community heart, unspecified / Hospital Q24.9(ICD-10) Repository 09/09/2018 Unknown Z79.899 - Other long Sampson Cuevas Active [place] term (current) drug Community therapy / Hospital Z79.899(ICD-10) Repository 09/01/2018 Unknown R10.9 - Unspecified CebuJasper mcdonald Active [place] abdominal pain / Community R10.9(ICD-10) Hospital Repository 08/27/2018 Unknown M85.89 - Other Jame De La Garza Active [place] specified disorders Community of bone density and Hospital structure, multiple Repository sites / M85.89(ICD-10) 08/13/2018 Unknown S62.609A - Fracture Frederic Jame Active [place] of unspecified Community phalanx of Hospital unspecified finger, Repository initial encounter for closed fracture / S62.609A(ICD-10) 07/16/2018 Unknown 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, 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, Community right hand / Hospital M19.041(ICD-10) Repository 07/16/2018 Unknown M19.042 - Primary De La Garza, 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, left Community hand / Hospital M19.042(ICD-10) Repository 03/10/2018 Unknown I48.92 - Unspecified RoofSampson Active [place] atrial flutter / [facility] I48.92(ICD-10) Hospital Repository 03/10/2018 Unknown E78.5 - RoofSampson Active [place] Hyperlipidemia, [facility] unspecified / Hospital E78.5(ICD-10) Repository 03/10/2018 Unknown Z87.74 - Personal RoofSampson Active [place] history of [facility] (corrected) Hospital congenital Repository malformations of heart and circulatory system / Z87.74(ICD-10) 03/10/2018 Unknown 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 [facility] 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 / Hospital Z79.01(ICD-10) Repository 03/10/2018 Unknown I51.7 - Cardiomegaly Sampson Cuevas Active [place] / I51.7(ICD-10) [facility] Hospital Repository PROCEDURES PROCEDURES No Procedure Records FoundRESULTS RESULTS MAGNESIUM Collected: 10/23/2018 Status: F Source: [place] 3:05 PM [facility] REPOSITORY TYPE CODE TESTS RESULT OUT OF RANGE REFERENCE UNITS LAB L501.5200 1.6-2.6 mg/dL Normal MG 2.3 Performed By: #### L501.5200 #### [place] [facility] [address] [place], [address] VITAMIN D,25 HYDROXY Collected: 10/23/2018 Status: F [facility]: [place] [facility] TYPE CODE TESTS RESULT OUT OF REFERENCE UNITS RANGE LAB L506.1000 29.95-100.01 ng/mL Low Vitamin D 22.3 25-OH Result Comment: Vitamin D 25(OH) Status Range Deficiency <20 ng/mL (50nmol/L) Insuffciency 20 - 30 ng/mL (50 - 75 nmol/L) Sufficiency 30 - 100 ng/mL (75 - 250 nmol/L) Toxicity >100 ng/mL (>250 nmol/L) Performed By: #### L506.1000, L509.1000 #### [facility] [address] [place], [address] PTHIN Collected: 10/23/2018 Status: F Source: [place] 3:05 PM [facility] REPOSITORY TYPE CODE TESTS RESULT OUT OF RANGE REFERENCE UNITS LAB L509.1000 18.4-80.1 pg/mL Normal PTHIN 52.9 Performed By: #### L506.1000, L509.1000 #### [facility] [address] [place], [place], [address] SURGERY VISIT REPORT Observed: 10/18/2018 Status: F Source: [place] 9:33 AM [facility] REPOSITORY [facility] [address] [place] [address] OFFICE VISIT Date of Service: 10/18/18 MR#: [id number] Acct: [id number] Name: RUBEN LOBO Andres Rep #: [id number] : 1945 Provider: Jasper Talley MD Age/Sex: 73/F Location: [facility] Status: Signed Intake Vital Signs10/18/18 Body Mass Index (BMI) 26.4 Intake Visit Reasons: FU Test Results Scope/Monometry Chief Complaint: manometry and EGD results Tire Spotter Required: No Is patient in pain?: No Allergies No Known Allergies Allergy (Verified 10/18/18 08:29) Medications Pantoprazole Sodium [Protonix] 40 mg PO DAILY 09/02/15 [History Confirmed 10/07/18] Sertraline HCl 50 mg PO DAILY 09/02/15 [History Confirmed 10/07/18] amiodarone 200 mg tablet 200 mg PO DAILY #90 tab 11/14/17 [Rx Confirmed 10/07/18] apixaban 5 mg tablet 5 mg PO BID #14 tab 01/02/18 [Rx Confirmed 10/07/18] diltiazem CD 120 mg capsule,extended release 24 hr 120 mg PO DAILY #90 cap 03/10/18 [Rx Confirmed 10/07/18] gabapentin 300 mg capsule 300 mg PO DAILY 08/25/18 [History Confirmed 10/07/18] levomefolate calcium 15 mg tablet 15 mg PO DAILY 08/25/18 [History Confirmed 10/07/18] magnesium 400 mg (as magnesium oxide) tablet 400 mg PO DAILY tab 09/29/18 [History Confirmed 10/07/18] Is last menstrual period known: No Post menopausal: Yes Patient : No PFSH Medical History Paroxysmal atrial fibrillation (Chronic) Essential (primary) hypertension (Chronic) Esophageal hiatal hernia (Acute) Dilatation of pulmonic artery (Chronic) Daytime somnolence (Chronic) Congenital heart disease (Chronic) 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, left (Chronic) 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) GERD (gastroesophageal reflux disease) (Chronic) Hypotension (Acute) Atrial flutter (Chronic) Atypical chest pain (Acute) Hiatal hernia (Acute) Surgical History Hx of CABG (Resolved) Hx of appendectomy (Resolved) interatrial septal repair (Resolved) History of hysterectomy (Acute) Family History Mother Hypertension Arthritis Heart disease Father Cancer Brother Cancer Son CVA (cerebral vascular accident) Diabetes Brother TIA (transient ischemic attack) Sister Cancer kidney cancer Thyroid disorder Social History Smoking Status: Never smoker alcohol intake: never substance use type: does not use caffeine: Yes Type: coffee Number of servings: 1 what type of physical activity do you participate in: walking frequency: daily duration: 30-45 minutes/day seatbelt use: always do you feel safe at home: Yes HPI HPI HPI: RUBEN LOBO, is a 73 F who presents to the office today for surgical follow-up and consultation regarding gastroesophageal reflux disease and a paraesophageal hiatal hernia. Patient does possibly have a lactose intolerance. She has some trouble swallowing food. Her previous history as noted below [id number] Name: RUBEN LOBO [facility] #:[id number] : 1945 Provider:Jasper Talley MD Age/Sex: 73/F Location:[facility] Status:Signed Intake Vital Signs 08/25/18 Height 5 ft 08/25/18 Weight: 137 lb 08/25/18 Body Mass Index (BMI) 26.7 08/25/18 Blood Pressure 148/77 H 08/25/18 Blood Pressure Location Rt brachial 08/25/18 Blood Pressure Position Sitting 08/25/18 Respiratory Rate 20 H 08/25/18 Pulse Rate 79 08/25/18 Pulse Source Monitor 08/25/18 Temperature 98.3 F 08/25/18 Temperature Source Oral 08/25/18 Pulse Ox 94 08/25/18 Oxygen Delivery Method room air Intake Visit Reasons: Large herniation of stomach Tire Spotter Required: No Is patient in pain?: No Allergies No Known Allergies Allergy (Verified 08/25/18 09:55) Medications Pantoprazole Sodium [Protonix] 40 mg PO DAILY 09/02/15 [History Confirmed 08/25/18] Sertraline HCl 50 mg PO DAILY 09/02/15 [History Confirmed 08/25/18] amiodarone 200 mg tablet 200 mg PO DAILY #90 tab 11/14/17 [Rx Confirmed 08/25/18] apixaban 5 mg tablet 5 mg PO BID #14 tab 01/02/18 [Rx Confirmed 08/25/18] diltiazem CD 120 mg capsule,extended release 24 hr 120 mg PO DAILY #90 cap 03/10/18 [Rx Confirmed 08/25/18] magnesium oxide 400 mg (241.3 mg magnesium) tablet 400 mg PO BID #180 tab 05/26/18 [Rx Confirmed 08/25/18] gabapentin 300 mg capsule 300 mg PO DAILY 08/25/18 [History Confirmed 08/25/18] levomefolate calcium 15 mg tablet 15 mg PO DAILY 08/25/18 [History Confirmed 08/25/18] FOR[facility]LY [facility], [facility] Medical History Dilatation of pulmonic artery (Chronic) Daytime somnolence (Chronic) Congenital heart disease (Chronic) 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, 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 (Chronic) 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) HTN (hypertension) (Chronic) GERD (gastroesophageal reflux disease) (Chronic) New onset atrial flutter (Acute) Hypotension (Acute) Atrial flutter (Chronic) Hiatal hernia (Acute) Atypical chest pain (Acute) Surgical History Hx of CABG (Resolved) Hx of appendectomy (Resolved) interatrial septal repair (Resolved) History of hysterectomy (Acute) Family History Mother Hypertension Arthritis Heart disease Father Cancer Brother Cancer Son CVA (cerebral vascular accident) Diabetes Brother TIA (transient ischemic attack) Sister Cancer kidney cancer Thyroid disorder Social History Smoking Status: Never smoker alcohol intake: never substance use type: does not use caffeine: Yes Type: coffee Number of servings: 1 what type of physical activity do you participate in: walking frequency: daily duration: 30-45 minutes/day seatbelt use: always do you feel safe at home: Yes HPI HPI HPI: RUBEN LOBO, is a 73 F who presents to the office today for for surgical consultation regarding gastroesophageal reflux disease and paraesophageal hiatal hernia. The patient is referred by her primary care physician Dr. Jame De La Garza and a written copy of my surgical consult and recommendations will be returned to him. 73-year-old female. For multiple years she has required pantoprazole for reflux symptoms. She claims that is she is off it for any period of time she has difficulty eating swallowing water. Over the past year she has had increased frequency of episodes where she feels like she needs to vomit but cannot. She has never had a esophageal foreign body obstruction. She does have particular trouble eating meat. She has not previously had an upper endoscopy. To help evaluate her situation on August 20, 2018 at the [facility] she had a double air contrast upper GI imaging study. This demonstrates a moderate appearing paraesophageal hiatal hernia. Moderate GE reflux is identified. Suspected esophageal dysmotility. In addition minimal laryngeal penetration is noted. The patient notes a dry cough and intermittently hoarse voice The patient's previously had heart surgery for a congenital defect. She states that she is also had a hysterectomy and appendectomy. She also thinks that she is previously been diagnosed with gallstones. She still has her gallbladder in place. Additionally she has had atrial flutter with tacky arrhythmia and is on anticoagulant Eliquis as well as rhythm control with amiodarone She states that she is scheduled to have a CT scan tomorrow ROS General General: Yes fatigue; no weight change, appetite, colon cancer, breast cancer or weakness HEENT HEENT: Yes difficulty swallowing; no eye injury, eye surgery, swollen glands or hoarseness Endo Endocrine: No thyroid disease, diabetes mellitus, thyroid cancer, Hair loss, heat intolerance or cold intolerance Skin Skin: No rash or changing moles Breast Breast: No left breast lump, right breast lump, nipple discharge, breast pain, abnormal mammogram, abnormal US or breast enlargement Musc Musculoskeletal: Yes arthritis, rheumatoid arthritis and gout; no back problems or joint pain Cardio Cardiovascular: Yes murmur, heart disease, atrial fibrillation and high blood pressure; no pacemaker, heart attack, heart stent, palpitations, shortness of breat with exertion or chest pain Psych Psychiatric: Yes depression and anxiety; no hearing voices Resp Respiratory: Yes shortness of breath, No sleep apnea, No cough, Yes COPD, No asthma, No emphysema, No wheezing Gastro Gastrointestinal: No abdominal pain, Yes nausea or vomiting, No diarrhea, No constipation, No blood in stool, Yes acid reflux, No hemorrhoids, No ulcers, No gallbladder problem, No black,tarry stools Yair Hematologic: Yes blood thinners, No blood disorders, No bleeding, No anemia, No blood clots Neuro Neurologic: No system reviewed and no additional complaints, except as docu, No as per HPI, No abnormal walking, No abnormal hearing, No abnormal movements, No abnormal speech, No behavioral changes, No burning sensations, No confusion, No seizure-like activity, No unsteadiness, No dizziness, No localized weakness, No frequent falls, No headache(s), No lack of coordination, No loss of vision, No memory loss, No numbness, No other visual disturbances, No radiating pain, No restless legs, No sensory deficit, No fainting, No tingling, No tremor(s), No weakness, No other Exam Const General: cooperative, healthy appearing, comfortable, no acute distress Nutritional Appearance: average body habitus Orientation: alert, awake, oriented x3 Other: Slightly hoarse voice with intermittent nonproductive dry cough HENMT Head: normal to inspection Eyes General: appearance normal, both eyes and all related structures Neck Neck: normal visual inspection Carotids: normal carotid upstroke, no bruits Chest Chest palpation AND inspection: normal inspection of the chest Breast Palpation: No nipple discharge Resp Effort AND Inspection: normal respiratory effort Auscultation: clear to auscultation bilaterally Cardio Rhythm: abnormal rhythm Heart Sounds: murmur Pulses: radial pulses present, brachial pulses present, femoral pulses present GI Palpation: soft, no hepatosplenomegaly Auscultation: normal bowel sounds Other: Well-healed very lengthy Pfannenstiel incision Musc Cervical Spine: normal cervical lordosis Skin General: no rashes or lesions noted Neuro General: CN's II-XI intact bilaterally Extrem General: no calf tenderness Psych Affect: normal affect Assessment AND Plan 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 Gastroesophageal reflux disease, esophagitis presence not specified K21.9 3. New onset atrial flutter I48.92 4. Esophageal hiatal hernia K44.9 Plan 73-year-old female with findings suggesting a paraesophageal hiatal hernia. In addition however there are concerns that she has significant reflux with possible pulmonary penetration causing hoarseness and intermittent cough. Barium study suggests possibility of esophageal motility disorder. She has been on long-term proton pump inhibitor. She is anticoagulated on Eliquis because of atrial flutter with rhythm control with amiodarone There is some concern that she has a history of gallstones The patient is obtaining a CT scan tomorrow. We will await those results. If they are definitive for gallstones then no additional imaging will be required. If they are indeterminate then I would recommend a gallbladder ultrasound. I am recommending esophageal manometry. I have discussed the technique, benefits, risks and alternatives. I am recommending esophagogastroduodenoscopy with anticipated biopsy and Swift pH probe placement. Again she has had the opportunity to ask and have questions answered and is desiring to proceed. I am hopeful that she will be a candidate for laparoscopic repair of her suspected paraesophageal hiatal hernia with the additional plan for treatment of her reflux disease. If she has additional gallstone disease that I likely will recommend combined surgical treatment at that setting. She is aware that on my review of her images that the paraesophageal hiatal hernia is quite notable. I am recommending proceeding with definitive evaluation and I do anticipate future laparoscopic repair. We would need to consider the addition of mesh support if a paraesophageal defect is identified. I very much appreciate the kind opportunity of assisting with her surgical care Cc: Dr. Jame Talley M.D., F.A.C.S. 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 Gastroesophageal reflux disease, esophagitis presence not specified K21.9 Esophagitis presence: esophagitis presence not specified New onset atrial flutter I48.92 Esophageal hiatal hernia K44.9 ROS General General: Yes fatigue; no weight change, appetite, colon cancer, breast cancer or weakness HEENT HEENT: Yes difficulty swallowing; no eye injury, eye surgery, swollen glands or hoarseness Endo Endocrine: No thyroid disease, diabetes mellitus, thyroid cancer, Hair loss, heat intolerance or cold intolerance Skin Skin: No rash or changing moles Breast Breast: No left breast lump, right breast lump, breast pain, abnormal mammogram, abnormal US, breast enlargement or nipple discharge Musc Musculoskeletal: Yes arthritis, rheumatoid arthritis and gout; no back problems or joint pain Cardio Cardiovascular: Yes heart disease, atrial fibrillation, high blood pressure and murmur; no pacemaker, heart attack, heart stent, palpitations, shortness of breat with exertion or chest pain Psych Psychiatric: Yes depression and anxiety; no hearing voices Resp Respiratory: Yes shortness of breath, No sleep apnea, No cough, Yes COPD, No asthma, No emphysema, No wheezing Gastro Gastrointestinal: No abdominal pain, Yes nausea or vomiting, No diarrhea, No constipation, No blood in stool, Yes acid reflux, No hemorrhoids, No ulcers, No gallbladder problem, No black,tarry stools Yair Hematologic: Yes blood thinners, No blood disorders, No bleeding, No anemia, No blood clots Neuro Neurologic: No weakness Exam Chest Breast Palpation: No nipple discharge Cardio Heart Sounds: murmur Assessment AND Plan Problems 1. Esophageal hiatal hernia K44.9 2. Gastroesophageal reflux disease with esophagitis K21.0 Plan Testing has identified the following results Barium swallow performed August 20, 2018 demonstrates a paraesophageal hiatal hernia with suggestion of possible esophageal motility disorder. Chest CT August 26, 2018: [facility] Imaging Services [address] [place] [address] Chest without Contrast MR#: [id number]:[id number] Name: YAMILRUBEN [facility] #:[id number] : 1945 73 From: Garima Booth MD PCP:Jame De La Garza MD Status:REG CLI Study:Chest without Contrast Date of Exam:08/26/18 Exam#[id number] Ordering Dr: Jame De La Garza MD STUDY: CT CHEST WITHOUT CONTRAST REASON FOR EXAM: Female, 73 years old. Infiltrate RADIATION DOSAGE (If Supplied By Facility): CTDIvol = ( 13.24 ) mGy, DLP = ( 430.00 ) mGycm TECHNIQUE: Transaxial imaging was performed without the administration of intravenous contrast material. Multiplanar coronal and sagittal images were reformatted. Individualized dose optimization techniques were used for this CT. COMPARISON: April 11, 2016 CT chest FINDINGS: There are a few scattered peripheral groundglass opacities within the right middle lobe. There are groundglass opacities within the lung bases and in the middle lobe. There is no demonstrated pleural abnormality. There is significant enlargement of the left pulmonary artery similar to prior study measuring 4.5 cm. There is mild enlargement of the right pulmonary artery measuring 2.8 cm. This calcification on the left side of the heart and pericardium. There are coronary artery calcifications. There is a pretracheal lymph node measuring 1.3 x 1.3 cm stable since prior study. Normal hilar regions. There is atherosclerotic calcification of the aortic arch with tortuosity and elongation of the aortic arch and descending thoracic aorta. There are multi-level degenerative changes of the thoracic spine. The liver appears hyperdense suggesting history of amiodarone therapy. There is a hiatal hernia measuring 4.[address]/Chest without Contrast IMPRESSION: There is a persistent pattern of enlarged left greater than right pulmonary artery consider pulmonary arterial hypertension pulmonary valve stenosis. There is stable calcification of the left side of the heart and the pericardium and no portion of the wall of the heart. There are coronary calcifications. There is stable lymph nodes in the mediastinum There is groundglass opacity within the lungs which is suspicious for pulmonary edema or potentially cardiogenic edema. There is a minimal focus of bright middle lobe atelectasis and/or scarring which is less than prior study. Hiatal hernia The liver is hyperdense suggesting possible reaction to medical therapy including amiodarone. Electronically Signed: Garima Booth MD at 19:45 EDT Tel , Service support , September 01, 2018 gallbladder ultrasound demonstrated multiple small gallstones but no evidence of acute inflammation Cardiology visit of September 09, 2018 recants at the following Stress test from January 2017 showed no peak exercise ECG changes. Nuclear images were negative for stress-induced myocardial ischemia and previous myocardial injury/infarction. Ejection fraction was reported at 67%. MARYJO from April 2016 showed an estimated ejection fraction 55%, moderately enlarged left atrium, no spontaneous contrast in left atrium, no thrombus detected left atrial appendage, severely enlarged right atrium, mild diffuse mitral thickening, moderate mitral valve insufficiency, moderate tricuspid valve insufficiency, mild diffuse aortic valve thickening, trivial aortic valve insufficiency, mild pulmonic valve insufficiency, ASD repair with color-flow Doppler evidence compatible with 2 very small areas of residual left to right interatrial shunt, bubble contrast study negative for right to left interatrial shunt, and mild atherosclerosis of the aortic arch. October 07, 2018. Esophagogastroduodenoscopy with Swift pH probe demonstrated the Z line at 36 cm. Paraesophageal hiatal hernia. Benign gastric fundic polyps. Biopsies negative for H. pylori. Chronic gastritis. Reflux esophagitis with focal acute esophagitis with no fungal elements. The pH probe component demonstrated DeMeester score average of 23.7 with first day 24.4 and second day 22.6. Esophageal manometry of September 10, 2018 demonstrates mean lower esophageal sphincter pressure of 7.1 which is low. There was 40% week swallows. There was good bolus clearance and the hiatal hernia noted. A was a 20-minute [id number] consultative appointment with the patient and her . I have proposed for her a laparoscopic repair of her hiatal hernia. Great care would be maintained not to overdo the reconstruction. I would propose a laparoscopic Toupet procedure. This also would intentionally be left loose. Pending progress of that procedure would anticipate combining a laparoscopic cholecystectomy same setting. The patient is on Eliquis and we would hold this 2 days preoperatively. In detail I have discussed the technique, benefits, risks, alternatives. She has had an opportunity to ask and have questions answered. At this point she is considering proceeding with definitive surgical repair. She would like to consider that possibly November 2018. She will notify me as to how she would like to proceed. CC: Dr. Jame De La Garza and Dr. Jack Talley M.D., F.A.C.S. Coding Level of Care Code Off vis,est,level 3 Diagnoses Esophageal hiatal hernia K44.9 Gastroesophageal reflux disease with esophagitis K21.0 Esophagitis presence: with esophagitis 10/18/18 0933 <Electronically signed by Jasper Talley MD> Date Jasper Talley MD Cosigner Signature: Date (if applicable) CC: Jame De La Garza MD; Jack Duran MD HISTORY AND PHYSICAL Observed: 10/07/2018 Status: F Source: [place] EXAM 4:28 PM [facility] REPOSITORY [facility] Medical Records Department [address] [place] [id number] History and Physical 10/07/18 0608 MR#: [id number] Acct: [id number] Name: RUBEN LOBO Rep #: [id number] : 1945 73 From: Jasper Talley MD PCP: Jame De La Garza MD Status: [facility] Y Location: EN Problem List (1) Esophageal hiatal hernia Status: Acute History of Present Illness Date of Admission: 10/07/18 The patient is a 73 year old F who presented to the office August 25, 2018. Surgical consultation was been requested regarding gastroesophageal reflux disease and a large paraesophageal hiatal hernia. She had a upper GI barium study demonstrating suggestion of esophageal motility and impingement upon the distal esophagus by the large paraesophageal hiatal hernia. She does have trouble eating meat. She has a dry cough and intermittently hoarse voice. She is previously had heart surgery for a congenital defect. Also has had a hysterectomy and appendectomy. Gallbladder ultrasound showed small gallstones. She has a history of atrial flutter with tachyarrhythmia and is on Eliquis and amiodarone. Past Medical History Past Medical History (Chronic Problems): Chronic Problems (Last Updated 09/09/18 @ 07:44 by ALKA Hernandez) Paroxysmal atrial fibrillation (Chronic) DCCV in April 2016; Essential (primary) hypertension (Chronic) Dilatation of pulmonic artery (Chronic) Daytime somnolence (Chronic) Congenital heart disease (Chronic) 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, left (Chronic) Interatrial septal repair 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) GERD (gastroesophageal reflux disease) (Chronic) Atrial flutter (Chronic) Medical History: Medical History (Last Updated 09/09/18 @ 07:44 by ALKA Hernandez) Paroxysmal atrial fibrillation (Chronic) I48.0 DCCV in April 2016; Essential (primary) hypertension (Chronic) I10 Esophageal hiatal hernia (Acute) K44.9 Dilatation of pulmonic artery (Chronic) I28.8 Daytime somnolence (Chronic) R40.0 Congenital heart disease (Chronic) Q24.9 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, left (Chronic) I51.7 Interatrial septal repair 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) Z79.01 GERD (gastroesophageal reflux disease) (Chronic) K21.9 Hypotension (Acute) I95.9 Atrial flutter (Chronic) I48.92 Atypical chest pain R07.89 Hiatal hernia K44.9 Allergies No Known Allergies Allergy (Verified 09/09/18 09:56) Home Medications: Ambulatory Orders Medication Instructions Recorded Pantoprazole Sodium [Protonix] 40 mg PO DAILY 09/02/15 Sertraline HCl 50 mg PO DAILY 09/02/15 Surgical History: Surgical History (Last Updated 08/25/18 @ 09:52 by Ophelia Blakely) Hx of CABG (Resolved) Z95.1 Hx of appendectomy (Resolved) Z90.49 interatrial septal repair (Resolved) History of hysterectomy Z90.710 Surgical History: appendectomy, hysterectomy, - - ASD repair in 1963. 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 history Smoking Status: Never smoker - *Family History Paternal Family History: Family History (Last Updated 08/25/18 @ 09:54 by Ophelia Blakely) Mother Hypertension Arthritis Heart disease Father Cancer Brother Cancer Son CVA (cerebral vascular accident) Diabetes Brother TIA (transient ischemic attack) Sister Cancer Thyroid disorder History Items: No pertinent history Maternal Family History: Family History (Last Updated 08/25/18 @ 09:54 by Ophelia Blakely) Mother Hypertension Arthritis Heart disease Father Cancer Brother Cancer Son CVA (cerebral vascular accident) Diabetes Brother TIA (transient ischemic attack) Sister Cancer Thyroid disorder History Items: No pertinent history Review of Systems Constitutional: Denies: Anorexia HEENT: Reports: Difficulty Swallowing Cardiovascular: Denies: Chest Pain Respiratory: Reports: Cough Gastrointestinal: Denies: Abdominal Pain Genitourinary: Denies: Dysuria Neurological: Denies: Balance problems Psychiatric: Denies: Anxiety Endocrine: Denies: Change in Body Habitus VTE Information - Inpt Only VTE Present on Admission: No - Physical Exam General: Alert, Oriented x3, Cooperative Oral: Moist Mucosa Neck: Supple, Negative Carotid Bruits Lungs: Clear to auscultation, Normal air movement Cardiovascular: Irregular Rate, Murmur Abdomen: Bowel Sounds Present, Non Tender, - - Well-healed Pfannenstiel incision Extremities: No clubbing Musculoskeletal: No Tenderness to Palpation of Joints or Extremities Neurological: Cranial nerves II-XII grossly intact Psych/Mental Status: Normal Affect Assessment/Plan All Active Problems (Last Updated 09/09/18 @ 07:44 by Sampson Cuevas, TAILMAN-C) Esophageal hiatal hernia (Acute) Hx of CABG (Resolved) Hx of appendectomy (Resolved) interatrial septal repair (Resolved) Hypotension (Acute) I plan for a esophagogastroduodenoscopy with possible biopsy or polypectomy as indicated. Careful inspection of her EG junction and hiatal hernia will be noted. She has had an opportunity ask and have questions answered. We will proceed as noted. PH probe placement is anticipated. Jasper Talley M.D., F.A.C.S. 10/07/18 1628 <Electronically signed by Jasper Talley MD> Date Jasper Talley MD Cosign Signature: Date (if applicable) CC: Jame De La Garza MD; Jasper Talley MD Signed OPERATIVE REPORT - Observed: 10/07/2018 Status: F Source: [place] [facility] 11:15 AM [facility] REPOSITORY [facility] Medical Records Department [address] [place] [address] Operative Report - Endoscopy MR#: [id number] Acct: [id number] Name: RUBEN LOBO Rep #: [id number] : 1945 73 From: Jasper Talley MD PCP: Jame De La Garza MD Status: REG [facility] Patient Name: Ruben Lobo Procedure Date: 10/07/2018 10:47 AM Date of : 1945 Age: 73 Procedure: Upper GI endoscopy Indications: Esophageal reflux Providers: Jasper Talley MD Referring MD: Jasper Talley MD Medicines: Midazolam 3 mg IV, Meperidine 100 mg IV Patient Profile: Previously obtained barium swallow showed a herniation in the stomach. Complications: No immediate complications. Procedure: Pre-Anesthesia Assessment: - Prior to the procedure, a History and Physical was performed, and patient medications and allergies were reviewed. The patient's tolerance of previous anesthesia was also reviewed. The risks and benefits of the procedure and the sedation options and risks were discussed with the patient. All questions were answered, and informed consent was obtained. Prior Anticoagulants: The patient has taken no previous anticoagulant or antiplatelet agents. ASA Grade Assessment: II - A patient with mild systemic disease. After reviewing the risks and benefits, the patient was deemed in satisfactory condition to undergo the procedure. After obtaining informed consent, the endoscope was passed under direct vision. Throughout the procedure, the patient's blood pressure, pulse, and oxygen saturations were monitored continuously. The gastroscope was introduced through the mouth, and advanced to the second part of duodenum. The upper GI endoscopy was accomplished without difficulty. The patient tolerated the procedure well. Moderate Sedation: Moderate (conscious) sedation was personally administered by the endoscopist. The following parameters were monitored: oxygen saturation, heart rate, blood pressure, and response to care. Total physician intraservice time was 15 minutes. Scope In: 10:58:05 AM Scope Out: 11:05:34 AM Total Procedure Duration Time 0 hours 7 minutes 29 seconds Findings: The Z-line was regular and was found 36 cm from the incisors. Biopsies were taken with a cold forceps for histology. A medium-sized hiatal hernia was present. A few 4 mm sessile polyps with no stigmata of recent bleeding were found in the gastric fundus. The polyp was removed with a cold biopsy forceps. Resection and retrieval were complete. Mild antral erythema--biopsied The examined duodenum was normal. A hiatal hernia was present. The SWIFT capsule with delivery system was introduced through the mouth and advanced into the esophagus, such that the SWIFT pH capsule was positioned 30 cm from the incisors, which was 6 cm proximal to the GE junction. The SWIFT pH capsule was then deployed and attached to the esophageal mucosa. The delivery system was then withdrawn. Endoscopy was utilized for probe placement and diagnostic evaluation. Impression: - Z-line regular, 36 cm from the incisors. Biopsied. - Medium-sized hiatal hernia. pH probe placed - A few gastric polyps. Resected and retrieved. Antrum biopsied - Normal examined duodenum. Recommendation: - Return to my office in 1 week. - Resume previous diet. - Recommend acid suppression medication be held until after 48 hours - Discharge patient to home. - Continue present medications. Procedure Code(s): --- Professional --- 54437, Esophagogastroduodenoscopy, flexible, transoral; with biopsy, single or multiple 34756, 59, Moderate sedation services provided by the same physician or other qualified health gericare aide performing the diagnostic or therapeutic service that the sedation supports, requiring the presence of an independent trained observer to assist in the monitoring of the patient's level of consciousness and physiological status; initial 15 minutes of intraservice time, patient age 5 years or older Diagnosis Code(s): --- Professional --- K44.9, Diaphragmatic hernia without obstruction or gangrene K31.7, Polyp of stomach and duodenum K21.9, Gastro-esophageal reflux disease without esophagitis CPT copyright 2017 [employer]. All rights reserved. The codes documented in this report are preliminary and upon offset printing operator review may be revised to meet current compliance requirements. Jasper Talley MD 10/07/2018 11:15:22 AM This report has been signed electronically. Number of Addenda: 0 Note Initiated On: 10/07/2018 10:47 AM 10/07/18 1115 Date Jasper Talley MD Cosigner Signature: Date (if indicated) CC: Jame De La Garza MD; Jasper Talley MD Date Dictated: 10/07/18 1047 Date Transcribed: Butcher Fish: SEAN Signed EGD (PICK SITE) Observed: 10/07/2018 Status: F Source: [place] 10:25 AM [facility] REPOSITORY Patient: RUBEN LOBO : 1945 (73/F) Acct Num: [id number] Phys: Jasper Talley MD Unit Num: [id number] Loc: EN Specimen: [id number] Received: 10/07/18 - 1221 Spec Type: EGD BIOPSY TISSUES 1 TISSUES: A. Gastric mucous membrane B. POLYP C. Esophagus, NOS COMMENT A. The results of immunohistochemistry for Helicobacter pylori will be reported separately ([id number]). C. GMS stain with matched control was used in the evaluation of this case. GROSS DESCRIPTION A - Received in fixative is one container labeled with the patient's name and designated antrum biopsy for H. pylori and path. The specimen consists of one irregular fragment of light cohn soft tissue that measures 0.4 x 0.3 x 0.1 cm. The specimen is totally submitted in one cassette. B - Received in fixative is one container labeled with the patient's name and designated fundic polyp biopsy. The specimen consists of one irregular fragment of light cohn soft tissue that measures 0.3 x 0.3 x 0.1 cm. The specimen is totally submitted in one cassette. C - Received in fixative is one container labeled with the patient's name and designated distal esophagus biopsy. The specimen consists of multiple irregular fragments of light cohn soft tissue that in aggregate measure 0.7 x 0.3 x 0.1 cm. The specimen is totally submitted in one cassette. / SJ:juan josé 10/07/18 TC:2 CPT: 01871 x3, 41400 HEADER OPERATION: EGD, PH probe (MOD) PRE-OP DIAGNOSIS: GERD TISSUE SUBMITTED: A - Antrum biopsy for H. pylori and path, B - Fundic polyp biopsy, C - Distal esophagus biopsy MICROSCOPIC DESCRIPTION Slides are reviewed. MICROSCOPIC DIAGNOSIS A. Gastric antrum, biopsy: Chronic gastritis. B. Gastric fundus, biopsy: Fundic gland polyp. C. Distal esophagus, biopsy: Consistent with reflux esophagitis. Focal acute esophagitis. Negative for fungal organisms. AM:juan josé 10/08/18 Signed Franki [facility] 10/08/18 <signature on file> Performed By: #### PEGD #### [facility] [address] [place] [address] [address] [place], [place], [address] IMMUNOHISTOCHEMISTRY Observed: 10/07/2018 Status: F Source: [place] 10:25 AM [facility] REPOSITORY Patient: RUBEN LOBO : 1945 (73/F) Acct Num: [id number] Phys: Mayank GLOVER,Jasper Unit Num: [id number] Loc: EN Specimen: [id number] Received: 10/07/18 - 1358 Spec Type: IMMUNO TISSUES 1 TISSUES: A. Stomach, NOS SPECIMEN INFORMATION: Tissue Source: A - Antrum biopsy Clinical Info: GERD Specimen Number: [id number] CPT code: 66608 METHODOLOGY: Deparaffinized sections of prefer/formalin-fixed tissue or PAP/DQ stained slides are incubated with monoclonal/polyclonal antibodies/oligonucleotide probes. Localization is made via biotin free immunoperoxidase method. Appropriate controls are performed and reacted as expected. Results on target cell population are indicated in the following table: RESULTS: ANTIBODY / CLONE RESULT Block A H Pylori (polyclonal) negative These tests were developed and their performance characteristics determined by [facility]. They may not have been cleared or approved by the U.S. Food and Drug Administration. The FDA has determined that such clearance or approval is not necessary. INTERPRETATION: A. Antrum, biopsy: Negative for Helicobacter pylori organisms. AM:juan josé 10/08/18 PHYSICIAN AND INSTITUTION [address] [address] Signed Franki Olivier 10/08/18 <signature on file> Performed By: #### PIMM #### [facility] [address] [place], [place] [address]. [place], [address] MAGNESIUM Collected: 09/27/2018 Status: F Source: [place] 10:13 AM [facility] REPOSITORY TYPE CODE TESTS RESULT OUT OF RANGE REFERENCE UNITS LAB L501.5200 1.6-2.6 mg/dL Normal MG 2.2 Performed By: #### L501.5200 #### [facility] [address] [place], [place] [address]. [place], [address] CARDIOLOGY VISIT Observed: 09/09/2018 Status: F Source: [place] REPORT 1:10 PM [facility] REPOSITORY [facility] [address] [place], [place] [address]. [address] [place] [address] OFFICE VISIT Date of Service: 09/09/18 MR#: [id number] Acct: [id number] Name: RUBEN LOBO Rep #: [id number] : 1945 Provider: BRYAN Cuevas Age/Sex: 73/F Location: [facility] Status: Signed HPI HPI Details: RUBEN LOBO, is a 73 F who presents to the office today for a cardiovascular outpatient follow-up. She has a history of atrial flutter with a cardioversion in April 2016, hypertension, and previous ASD with repair in 1962. Pt. denies chest, arm, jaw, or neck discomfort. Her exercise tolerance is stable. Pt. denies symptoms of CHF, palpitations, lightheadedness, near syncope, or syncopal episodes. Pt. denies edema or claudication issues. Pt. denies PND, fever, chills, blood in urine, blood in stool, or myalgia. She state some dizziness with quick position changes. She states sleeping on an incline for years due to GERD. She has having a workup with general surgery/Dr. Talley regarding acid reflux and swallowing concerns. Intake Vital Signs09/09/18 Height 5 ft 09/09/18 Weight: 137 lb 09/09/18 Body Mass Index (BMI) 26.7 09/09/18 Blood Pressure 122/70 H H 09/09/18 Blood Pressure Location Lt brachial Intake Visit Reasons: 6 M FU Tire Spotter Required: No Accompanied by: none Is patient in pain?: No Allergies No Known Allergies Allergy (Verified 09/09/18 09:56) Medications Pantoprazole Sodium [Protonix] 40 mg PO DAILY 09/02/15 [History Confirmed 08/25/18] Sertraline HCl 50 mg PO DAILY 09/02/15 [History Confirmed 08/25/18] amiodarone 200 mg tablet 200 mg PO DAILY #90 tab 11/14/17 [Rx Confirmed 08/25/18] apixaban 5 mg tablet 5 mg PO BID #14 tab 01/02/18 [Rx Confirmed 08/25/18] diltiazem CD 120 mg capsule,extended release 24 hr 120 mg PO DAILY #90 cap 03/10/18 [Rx Confirmed 08/25/18] magnesium oxide 400 mg (241.3 mg magnesium) tablet 400 mg PO BID #180 tab 05/26/18 [Rx Confirmed 08/25/18] gabapentin 300 mg capsule 300 mg PO DAILY 08/25/18 [History Confirmed 08/25/18] levomefolate calcium 15 mg tablet 15 mg PO DAILY 08/25/18 [History Confirmed 08/25/18] PFSH Medical History Paroxysmal atrial fibrillation (Chronic) Essential (primary) hypertension (Chronic) Esophageal hiatal hernia (Acute) Dilatation of pulmonic artery (Chronic) Daytime somnolence (Chronic) Congenital heart disease (Chronic) 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, left (Chronic) 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) GERD (gastroesophageal reflux disease) (Chronic) Hypotension (Acute) Atrial flutter (Chronic) Atypical chest pain (Acute) Hiatal hernia (Acute) Surgical History Hx of CABG (Resolved) Hx of appendectomy (Resolved) interatrial septal repair (Resolved) History of hysterectomy (Acute) Family History Mother Hypertension Arthritis Heart disease Father Cancer Brother Cancer Son CVA (cerebral vascular accident) Diabetes Brother TIA (transient ischemic attack) Sister Cancer kidney cancer Thyroid disorder Social History Smoking Status: Never smoker alcohol intake: never substance use type: does not use caffeine: Yes Type: coffee Number of servings: 1 what type of physical activity do you participate in: walking frequency: daily duration: 30-45 minutes/day seatbelt use: always do you feel safe at home: Yes ROS Const Const: Positive for fatigue; negative for weakness, body ache, fever(s) or chills ENT ENT: Positive for dizziness and other (Difficulty swallowing) Cardio Chest Pain: No Palpitations: No Edema: None Muscle aches with walking: None Resp Respiratory: Positive for SOB orthopnea\SOB lying down (not new); negative for SOB with activity, SOB at rest or paroxysmal nocturnal dyspnea GI GI: Positive for heartburn (with difficulty swollowing); negative nausea, black,tarry stools, bright, red blood in stools or vomiting blood/hematemesis : Negative for hematuria or frequent nighttime urination/ nocturia Musc Musc: Negative for muscle aches/ myalgia Neuro Neuro: Positive for dizziness; negative for weakness, lightheadedness, near syncope or syncope Endo Endo: Positive for fatigue Cardiology Exam Const Appearance: cooperative, healthy appearing, comfortable and no acute distress Nutritional Appearance: average body habitus and well nourished Orientation: alert, awake and oriented x3 Head Head: normal to inspection Ears: hearing grossly normal bilaterally Nose: external nose normal Mouth: oral mucosae normal Eyes Pupils: PERRL EOM: EOM intact bilaterally Neck Neck: no JVD and normal visual inspection Carotids: normal carotid upstroke Chest Chest inspection: normal inspection of the chest, normal respiratory effort and symmetric chest movement Auscultation: Bilateral: Clear to Auscultation Cardio Rate: regular rate Rhythm: regular rhythm Heart sounds: S1 normal and S2 normal; negative rub or gallop GI GI: normal to inspection Neuro General: alert, awake, oriented x3 and CN's II-XI intact bilaterally Skin Skin: no rashes or lesions noted Extremities Pulses: Normal: Right Posterior Tibial Pulse, Left Posterior Tibial Pulse, Right Radial Pulse, Left Radial Pulse Lower Extremity Edema: None: Bilateral Psych Psychological: normal affect Supplemental Info Stress test from January 2017 showed no peak exercise ECG changes. Nuclear images were negative for stress-induced myocardial ischemia and previous myocardial injury/infarction. Ejection fraction was reported at 67%. MARYJO from April 2016 showed an estimated ejection fraction 55%, moderately enlarged left atrium, no spontaneous contrast in left atrium, no thrombus detected left atrial appendage, severely enlarged right atrium, mild diffuse mitral thickening, moderate mitral valve insufficiency, moderate tricuspid valve insufficiency, mild diffuse aortic valve thickening, trivial aortic valve insufficiency, mild pulmonic valve insufficiency, ASD repair with color-flow Doppler evidence compatible with 2 very small areas of residual left to right interatrial shunt, bubble contrast study negative for right to left interatrial shunt, and mild atherosclerosis of the aortic arch. Assessment AND Plan 1. Congenital heart disease Q24.9 Plan She has a history of ASD repair in 1962. Her most recent transesophageal echocardiogram in April 2016 showed 2 very small areas of residual left to right interatrial shunt. Her bubble contrast study was negative for right to left interatrial shunt. She denies any shortness of breath. Her activity level has remained stable. At this time, she will continue current medications and we will continue to monitor. 2. Paroxysmal atrial fibrillation I48.0 DCCV in April 2016; Plan She appears to maintain regular rhythm. Her heart rate remains well controlled. she will continue with a limiting medication, 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 medication, and factor Xa inhibitor. We will continue to monitor. Orders Orders: 3. Essential (primary) hypertension I10 Plan Patient's blood pressure is well-controlled today in the office. We will continue to monitor this. We will not make any medication regimen changes. 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 She will be referred to Dr. Pastor for further input regarding hyperdensity and if recommendation to adjust/decrease amiodarone. Her pulmonary function test, thyroid function, and liver laboratory work were all within normal range. Orders Referrals: Plan Detail Other Medications Discontinued: potassium chloride ER Discontinued Reason: Ordered/[id number] mEq PO DAILY 30 tabs 0RF d in error Additional Comments She will keep February [address] Duran for further evaluation. Thank you for allowing us to participate in the patient's plan of care, if you have any questions please do not hesitate to call. This note was generated using a voice recognition system and there may be incorrect words, spelling, or punctuation that were not noted upon reviewing the office note prior to saving. 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 Z79.899 09/09/18 1310 <Electronically signed by Sampson RUCKER> Date Sampson RUCKER Cosigner Signature: Date (if applicable) CC: Jame De La Garza MD 12 LEAD EKG PERFORMED Observed: 09/09/2018 Status: F [place] [facility] [place] [address] 12 Lead [place] [facility] [place]09/18 0957 MR#: [id number] Acct: [id number] Name: RUBEN LOBO Rep #: [id number] : 1945 73 From: Sampson RUCKER Attending Dr: Sampson Cuevas NP Status: DEP AMB Ordering Dr: Sampson Cuevas Date: 09/09/18 [place] [facility] [place]: F C [place] [facility] [place] [facility] [place] ECG Report Interpretation Sinus Rhythm Nonspecific T-abnormality. ABNORMAL Electronically signed on 09/10/2018 at 17:53 by Jack Duran Software Version [id number] 09/10/18 1757 Date Sampson Cuevas TAILMANKamille CC: Jame De La Garza MD Date Dictated: 09/09/1857 Date Transcribed: 09/09/18956 Butcher Fish: MAYDA Signed GALLBLADDER Observed: 09/01/2018 Status: F Source: [place] 8:43 AM [facility] REPOSITORY [facility] Imaging Services [address] [place] [address] Gallbladder MR#: [id number] Acct: [id number] Name: RUBEN LOBO Rep #: [id number] : 1945 F 73 From: Karthik Haas MD PCP: Jame De La Garza MD Status: REG CLI Study: Gallbladder Date of Exam: 09/01/18 Exam# [id number] Ordering Dr: Jasper Talley MD STUDY: ABDOMINAL ULTRASOUND - RIGHT UPPER QUADRANT REASON FOR VISIT: Female, 73 years old. Generalized abdominal pain with intermittent nausea. TECHNIQUE: Ultrasound evaluation of the right upper quadrant was performed with real-time and static phan-scale imaging. TECHNICAL QUALITY: Satisfactory COMPARISON: CT chest 08/26/2018, CT abdomen and pelvis 09/30/2017. FINDINGS: Liver: The liver measures 16.2 cm. There is normal echogenicity of the liver. The bile ducts are within normal limits. There is hepatic color flow. The direction of portal flow is hepatopetal. Minimal gallbladder sludge. 5 mm calculus in the gallbladder body. Gallbladder: Normal distended gallbladder. The gallbladder wall measures 2.6 mm. There is a negative sonographic Leblanc's sign. There is no pericholecystic fluid. There are no gallstones. Common Bile Duct (C.B.D.): The common bile duct measures 4.1 mm. Pancreas: Normal size of the head, body and tail of the pancreas. There is normal echogenicity of the pancreas. There is no demonstrated pancreatic mass or cyst. Right Kidney: Normal size of the right kidney. The right kidney measures 9.3 cm. Normal renal cortex. The right cortex measures 1.2 cm. There is no demonstrated renal mass or cyst. There is no right hydronephrosis. US/Gallbladder IMPRESSION: Minimal cholelithiasis. No evidence of acute cholecystitis. Nondilated biliary tree. No acute abdominal process is evident. Electronically Signed: Karthik Haas, at 13:00 EDT Tel , Service support , CC: Jame De La Garza MD; Jasper Talley MD Butcher Fish: Signed DEXA BONE DENSITY Observed: 08/27/2018 Status: F Source: [place] [facility] 10:06 AM [facility] REPOS[facility]ORY [facility] Imaging Services [address] [place] [address] Dexa Bone Density Study MR#: [id number] Acct: [id number] Name: RUBEN LOBO Rep #: [id number] : 1945 F 73 From: Jamaal Gonzales MD PCP: Jame De La Garza MD Status: REG CLI Study: Dexa Bone Density Study Date of Exam: 08/27/18 Exam# [id number] Ordering Dr: Jame De La Garza MD STUDY: DUAL ENERGY X-RAY ABSORPTIOMETRY / DXA REASON FOR EXAM: Female, 73 years old. The patient is postmenopausal. Loss of height. TECHNIQUE: Bone Mineral Density (BMD) measurements of lumbar spine and bilateral hips were obtained. # of Images: 6 COMPARISON: Comparison is made with prior study dated July 05, 2009. FINDINGS: Lumbar Spine (L1-L4): g/cm2 (0.861) / T-score (-2.8) / Z-score (-1.1) Findings are suggestive of osteoporosis with a high fracture risk. Left Femur Total: g/cm2 (0.778) / T-score (-1.8) / Z- score (-0.2) Left Femoral Neck: g/cm2 (0.704) / T-score (-2.4) / Z- score (-0.6) Right Femur Total: g/cm2 (0.755) / T-score (-2.0) / Z- score (-0.4) Right Femoral Neck: g/cm2 (0.700) / T-score (-2.4) / Z-score (-0.6) The T-Scores on the most recent prior examination were: Lumbar Spine (L1-L4): There has been improvement of bone density since the previous examination. Left Femur Total: which represents a worsening of 12.7%. Right Femur Total: which represents a worsening of 12.8%. BD/Dexa Bone Density Study IMPRESSION: The patient is considered osteoporotic as outlined below according to World Aravind Organization (WHO) criteria with a high fracture risk. There has been worsening of bone density since the previous examination. Reference Information: The T-score is the number of standard deviations above or below the standard which is normal for young adults at their peak bone mineral density. The World Health Organization (WHO) interprets the T-scores as follows: Above -1 Normal bone density Between -1 and -2.5 Osteopenia Equal to / or below -2.5 Osteoporosis As a practical clinical guideline, osteopenia may be graded as follows: Mild -1 through -1.5 Moderate -1.6 through -2.0 Severe -2.1 through -2.4 The Z-score is the number of standard deviations above or below age-matched controls. A Z-score of less than -1.5 would be considered abnormal. References: 1. NIH Osteoporosis and Related Bone Diseases http://www.osteo.org 2. International Society for Clinical Densitometry http://www.iscd.org 3. National Osteoporosis Foundation http://www.nof.org Electronically Signed: Jamaal Gonzales MD at 8:35 EDT Tel [phone], Service support , CC: Jame De La Garza MD Butcher Fish: Signed CHEST WITHOUT Observed: 08/26/2018 Status: F Source: [place] [facility] 8:34 AM [facility]POS[facility] Imaging Services [address] [place] [address] Chest without Contrast MR#: [id number] Acct: [id number] Name: RUBEN LOBO Rep #: [id number] : 1945 F 73 From: Garima Booth MD PCP: Jame De La Garza MD Status: REG CLI Study: Chest without Contrast Date of Exam: 08/26/18 Exam# [id number] Ordering Dr: Jame De La Garaz MD STUDY: CT CHEST WITHOUT CONTRAST REASON FOR EXAM: Female, 73 years old. Infiltrate RADIATION DOSAGE (If Supplied By Facility): CTDIvol = ( 13.24 ) mGy, DLP = ( 430.00 ) mGycm TECHNIQUE: Transaxial imaging was performed without the administration of intravenous contrast material. Multiplanar coronal and sagittal images were reformatted. Individualized dose optimization techniques were used for this CT. COMPARISON: April 11, 2016 CT chest FINDINGS: There are a few scattered peripheral groundglass opacities within the right middle lobe. There are groundglass opacities within the lung bases and in the middle lobe. There is no demonstrated pleural abnormality. There is significant enlargement of the left pulmonary artery similar to prior study measuring 4.5 cm. There is mild enlargement of the right pulmonary artery measuring 2.8 cm. This calcification on the left side of the heart and pericardium. There are coronary artery calcifications. There is a pretracheal lymph node measuring 1.3 x 1.3 cm stable since prior study. Normal hilar regions. There is atherosclerotic calcification of the aortic arch with tortuosity and elongation of the aortic arch and descending thoracic aorta. There are multi-level degenerative changes of the thoracic spine. The liver appears hyperdense suggesting history of amiodarone therapy. There is a hiatal hernia measuring 4.[address]/Chest without Contrast IMPRESSION: There is a persistent pattern of enlarged left greater than right pulmonary artery consider pulmonary arterial hypertension pulmonary valve stenosis. There is stable calcification of the left side of the heart and the pericardium and no portion of the wall of the heart. There are coronary calcifications. There is stable lymph nodes in the mediastinum There is groundglass opacity within the lungs which is suspicious for pulmonary edema or potentially cardiogenic edema. There is a minimal focus of bright middle lobe atelectasis and/or scarring which is less than prior study. Hiatal hernia The liver is hyperdense suggesting possible reaction to medical therapy including amiodarone. Electronically Signed: Garima Booth MD at 19:45 EDT Tel , Service support , CC: Jame De La Garza MD Butcher Fish: Signed SURGERY VISIT REPORT Observed: 08/25/2018 Status: F Source: [place] 10:37 AM [facility] REPOSITORY [facility] [address] [place] [address] [address] [place] [address] OFFICE VISIT Date of Service: 08/25/18 MR#: [id number] Acct: [id number] Name: YAMILRUBEN M Rep #: [id number] : 1945 Provider: Jasper Talley MD Age/Sex: 73/F Location: [facility] Status: Signed Intake Vital Signs08/25/18 Height 5 ft 08/25/18 Weight: 137 lb Intake Visit Reasons: Large herniation of stomach T[employer] 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 Required: No Is patient in pain?: No Allergies No Known Allergies Allergy (Verified 08/25/18 09:55) Medications Pantoprazole Sodium [Protonix] 40 mg PO DAILY 09/02/15 [History Confirmed 08/25/18] Sertraline HCl 50 mg PO DAILY 09/02/15 [History Confirmed 08/25/18] amiodarone 200 mg tablet 200 mg PO DAILY #90 tab 11/14/17 [Rx Confirmed 08/25/18] apixaban 5 mg tablet 5 mg PO BID #14 tab 01/02/18 [Rx Confirmed 08/25/18] diltiazem CD 120 mg capsule,extended release 24 hr 120 mg PO DAILY #90 cap 03/10/18 [Rx Confirmed 08/25/18] magnesium oxide 400 mg (241.3 mg magnesium) tablet 400 mg PO BID #180 tab 05/26/18 [Rx Confirmed 08/25/18] gabapentin 300 mg capsule 300 mg PO DAILY 08/25/18 [History Confirmed 08/25/18] levomefolate calcium 15 mg tablet 15 mg PO DAILY 08/25/18 [History Confirmed 08/25/18] FORMERLY [facility], 1928–1983 Medical History Dilatation of pulmonic artery (Chronic) Daytime somnolence (Chronic) Congenital heart disease (Chronic) 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, left (Chronic) 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) HTN (hypertension) (Chronic) GERD (gastroesophageal reflux disease) (Chronic) New onset atrial flutter (Acute) Hypotension (Acute) Atrial flutter (Chronic) Hiatal hernia (Acute) Atypical chest pain (Acute) Surgical History Hx of CABG (Resolved) Hx of appendectomy (Resolved) interatrial septal repair (Resolved) History of hysterectomy (Acute) Family History Mother Hypertension Arthritis Heart disease Father Cancer Brother Cancer Son CVA (cerebral vascular accident) Diabetes Brother TIA (transient ischemic attack) Sister Cancer kidney cancer Thyroid disorder Social History Smoking Status: Never smoker alcohol intake: never substance use type: does not use caffeine: Yes Type: coffee Number of servings: 1 what type of physical activity do you participate in: walking frequency: daily duration: 30-45 minutes/day seatbelt use: always do you feel safe at home: Yes HPI HPI HPI: RUBEN LOBO, is a 73 F who presents to the office today for for surgical consultation regarding gastroesophageal reflux disease and paraesophageal hiatal hernia. The patient is referred by her primary care physician Dr. Jame De La Garza and a written copy of my surgical consult and recommendations will be returned to him. 73-year-old female. For multiple years she has required pantoprazole for reflux symptoms. She claims that is she is off it for any period of time she has difficulty eating swallowing water. Over the past year she has had increased frequency of episodes where she feels like she needs to vomit but cannot. She has never had a esophageal foreign body obstruction. She does have particular trouble eating meat. She has not previously had an upper endoscopy. To help evaluate her situation on August 20, 2018 at the [facility] she had a double air contrast upper GI imaging study. This demonstrates a moderate appearing paraesophageal hiatal hernia. Moderate GE reflux is identified. Suspected esophageal dysmotility. In addition minimal laryngeal penetration is noted. The patient notes a dry cough and intermittently hoarse voice The patient's previously had heart surgery for a congenital defect. She states that she is also had a hysterectomy and appendectomy. She also thinks that she is previously been diagnosed with gallstones. She still has her gallbladder in place. Additionally she has had atrial flutter with tacky arrhythmia and is on anticoagulant Eliquis as well as rhythm control with amiodarone She states that she is scheduled to have a CT scan tomorrow ROS General General: Yes fatigue; no weight change, appetite, colon cancer, breast cancer or weakness HEENT HEENT: Yes difficulty swallowing; no eye injury, eye surgery, swollen glands or hoarseness Endo Endocrine: No thyroid disease, diabetes mellitus, thyroid cancer, Hair loss, heat intolerance or cold intolerance Skin Skin: No rash or changing moles Breast Breast: No left breast lump, right breast lump, nipple discharge, breast pain, abnormal mammogram, abnormal US or breast enlargement Musc Musculoskeletal: Yes arthritis, rheumatoid arthritis and gout; no back problems or joint pain Cardio Cardiovascular: Yes murmur, heart disease, atrial fibrillation and high blood pressure; no pacemaker, heart attack, heart stent, palpitations, shortness of breat with exertion or chest pain Psych Psychiatric: Yes depression and anxiety; no hearing voices Resp Respiratory: Yes shortness of breath, No sleep apnea, No cough, Yes COPD, No asthma, No emphysema, No wheezing Gastro Gastrointestinal: No abdominal pain, Yes nausea or vomiting, No diarrhea, No constipation, No blood in stool, Yes acid reflux, No hemorrhoids, No ulcers, No gallbladder problem, No black,tarry stools Yair Hematologic: Yes blood thinners, No blood disorders, No bleeding, No anemia, No blood clots Neuro Neurologic: No system reviewed and no additional complaints, except as docu, No as per HPI, No abnormal walking, No abnormal hearing, No abnormal movements, No abnormal speech, No behavioral changes, No burning sensations, No confusion, No seizure-like activity, No unsteadiness, No dizziness, No localized weakness, No frequent falls, No headache(s), No lack of coordination, No loss of vision, No memory loss, No numbness, No other visual disturbances, No radiating pain, No restless legs, No sensory deficit, No fainting, No tingling, No tremor(s), No weakness, No other Exam Const General: cooperative, healthy appearing, comfortable, no acute distress Nutritional Appearance: average body habitus Orientation: alert, awake, oriented x3 Other: Slightly hoarse voice with intermittent nonproductive dry cough HENMT Head: normal to inspection Eyes General: appearance normal, both eyes and all related structures Neck Neck: normal visual inspection Carotids: normal carotid upstroke, no bruits Chest Chest palpation AND inspection: normal inspection of the chest Breast Palpation: No nipple discharge Resp Effort AND Inspection: normal respiratory effort Auscultation: clear to auscultation bilaterally Cardio Rhythm: abnormal rhythm Heart Sounds: murmur Pulses: radial pulses present, brachial pulses present, femoral pulses present GI Palpation: soft, no hepatosplenomegaly Auscultation: normal bowel sounds Other: Well-healed very lengthy Pfannenstiel incision Musc Cervical Spine: normal cervical lordosis Skin General: no rashes or lesions noted Neuro General: CN's II-XI intact bilaterally Extrem General: no calf tenderness Psych Affect: normal affect Assessment AND Plan Problems 1. 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 Z79.01 2. Gastroesophageal reflux disease, esophagitis presence not specified K21.9 3. New onset atrial flutter I48.92 4. Esophageal hiatal hernia K44.9 Plan 73-year-old female with findings suggesting a paraesophageal hiatal hernia. In addition however there are concerns that she has significant reflux with possible pulmonary penetration causing hoarseness and intermittent cough. Barium study suggests possibility of esophageal motility disorder. She has been on long-term proton pump inhibitor. She is anticoagulated on Eliquis because of atrial flutter with rhythm control with amiodarone There is some concern that she has a history of gallstones The patient is obtaining a CT scan tomorrow. We will await those results. If they are definitive for gallstones then no additional imaging will be required. If they are indeterminate then I would recommend a gallbladder ultrasound. I am recommending esophageal manometry. I have discussed the technique, benefits, risks and alternatives. I am recommending esophagogastroduodenoscopy with anticipated biopsy and Swift pH probe placement. Again she has had the opportunity to ask and have questions answered and is desiring to proceed. I am hopeful that she will be a candidate for laparoscopic repair of her suspected paraesophageal hiatal hernia with the additional plan for treatment of her reflux disease. If she has additional gallstone disease that I likely will recommend combined surgical treatment at that setting. She is aware that on my review of her images that the paraesophageal hiatal hernia is quite notable. I am recommending proceeding with definitive evaluation and I do anticipate future laparoscopic repair. We would need to consider the addition of mesh support if a paraesophageal defect is identified. I very much appreciate the kind opportunity of assisting with her surgical care Cc: Dr. Jame Talley M.D., F.A.C.S. 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 Gastroesophageal reflux disease, esophagitis presence not specified K21.9 Esophagitis presence: esophagitis presence not specified New onset atrial flutter I48.92 Esophageal hiatal hernia K44.9 08/25/18 1037 <Electronically signed by Jasper Talley MD> Date Jasper Talley MD Cosigner Signature: Date (if applicable) CC: Jame De La Garza MD UPPER GI SERIES Observed: 08/20/2018 Status: F Source: [place] [facility] 10:03 AM [facility] REPOS[facility] Imaging Services [address] [place] [address] Upper GI Series Only MR#: [id number] Acct: [id number] Name: RUBEN LOBO Rep #: [id number] : 1945 F 73 From: Jasper Snow MD PCP: Jame De La Garza MD Status: REG CLI Study: Upper GI Series Only Date of Exam: 08/20/18 Exam# [id number] Ordering Dr: Jame De La Garza MD CLINICAL HISTORY: Female, 73 years old. Dysphagia for months with food, patient feels food getting stuck in throat. Denies surgery or cancer. FLUOROSCOPY TIME (if supplied): (2:34) minutes/seconds TECHNIQUE: PROCEDURE: Double Air-contrast upper GI series. REASON FOR EXAM: See clinical history above. TECHNIQUE: After the administration of gas producing crystals, water, and barium solution orally, multiple images of the opacified gastrointestinal tract were obtained under fluoroscopic guidance. Additional upright right lateral cervical esophageal cine imaging was accomplished due to to the patient's symptomatology. FLUOROSCOPY TIME (if supplied): (2:34) minutes/seconds COMPARISON: No prior upper GI series . Correlation esophagram 07/28/[address] abdomen/pelvis 09/30/2017. FINDINGS: After the administration of gas producing crystals, water, and barium solution orally, multiple images of the opacified gastrointestinal tract were obtained under fluoroscopic guidance. Examination of the upper cervical esophagus shows mild laryngeal penetration and minimal aspiration below the vocal cords. Thoracic upper, mid and distal esophagus is dilated with prone MCKINLEY positioning and shows no persistent distal esophageal stricture although evaluation is difficult due to moderate appearing paraesophageal hernia superimposed. Paraesophageal hernia type 2 suspected with normal-appearing location of the GE junction suggested with sliding-type fundal hiatal or diaphragmatic hernia noted adjacent. Moderate appearing gastroesophageal reflux noted. Mild esophageal dysmotility suggested. The stomach shows no mucosal abnormality such as ulcer, mass or polyp but is not fully distended with air due to suspected paraesophageal hernia. Examination the duodenum appears within normal limits without ulceration mucosal thickening. Air contrast and single contrast duodenal bulb with and without compression appear within normal limits as does the C-loop of the duodenum visualized. RAD/Upper GI Series Only IMPRESSION: Minimal laryngeal penetration and minimal aspiration not below vocal cords noted. If clinically indicated, modified esophagram with speech therapy may more helpful for further evaluation. Paraesophageal hernia type II suspected versus large sliding- type hiatal hernia as described. Clinical correlation recommended. Electronically Signed: Jasper Snow, at 13:41 EDT Tel , Service support , CC: Jame De La Garza MD Butcher Fish: Signed SCREENING MAMM (CAD), Observed: 08/16/2018 Status: F Source: [place] 10:11 AM [facility] REPOSITORY [facility] Imaging Services [address] [place] [address] SCREENING MAMM (CAD), BILAT MR#: [id number] Acct: [id number] Name: RUBEN LOBO Rep #: [id number] : 1945 F 73 From: Jasper Snow MD PCP: Jame De La Garza MD Status: REG CLI Study: SCREENING MAMM (CAD), BILAT Date of Exam: 08/16/18 Exam# [id number] Ordering Dr: Jame De La Garza MD MAMMOGRAPHY - BILATERAL SCREENING 3-D DARRIAN SYNTHESIS REASON FOR EXAM: Female, 73 years old. Bilateral Screening 3-D tomosynthesis PERTINENT HISTORY: Open heart surgery 1963. No significant family history. TECHNIQUE: 2-D mammograms and 3-D Darrian synthesis of the breast (s) were performed. CAD was performed. COMPARISON: 03/25/2017. FINDINGS: The breast composition is heterogeneously dense that can obscure small breast masses. Scattered benign calcifications are seen. No dense spiculated dominant masses or suspicious microcalcification cluster are identified. No new architectural distortion, asymmetric density, adenopathy, skin thickening or nipple retraction identified. There has been no significant change identified since the prior study. BI/SCREENING MAMM (CAD), BILAT IMPRESSION: No mammographic sign of malignancy. Routine yearly mammograms recommended. ASSESSMENT CATEGORY: BIRADS Category 2: Benign. A letter regarding these results will be sent to the patient by the facility within 30 days. FOLLOW UP RECOMMENDATION: Yearly follow up mammogram recommended. (A) Negative mammographic results should not deter biopsy as a palpable lesion if present should be followed based on clinical grounds and biopsy performed if clinically persistent for 3 months or increasing size. Approximately 10% of breast cancers are not detected by mammography. A normal mammogram should not delay biopsy of a clinically suspicious abnormality. Dense breast tissue may obscure neoplasm. Electronically Signed: Jasper Snow, at 21:09 EDT Tel , Service support , CC: Jame De La Garza MD Butcher Fish: Signed FINGER(S) MIN 2 VIEWS Observed: 08/13/2018 Status: F Source: [place] 10:09 AM [facility] REPOSITORY [facility] Imaging Services [address] [place] [address] Finger(s) Min 2 Views MR#: [id number] Acct: [id number] Name: RUBEN LOBO Rep #: [id number] : 1945 F 73 From: Raven Kohler MD PCP: Jame De La Garza MD Status: REG CLI Study: Finger(s) Min 2 Views Date of Exam: 08/13/18 Exam# [id number] Ordering Dr: Jame De La Garza MD STUDY: X-RAY - LEFT HAND, ATTENTION third FINGER REASON FOR EXAM: Female, 73 years old. Fell in April, left middle finger pain TECHNIQUE: 3 view(s) of the finger were obtained. COMPARISON: Left hand 07/16/2018 FINDINGS: Normal metacarpal head. Normal metacarpophalangeal joint. There is demineralization of osseous structures. Normal proximal phalanx. Normal middle phalanx. Normal distal phalanx. Minimal osseous density along the ulna and dorsal cortex of the third proximal phalangeal head as on previous examination. There is mild degenerative arthrosis of the proximal interphalangeal joint. There is moderate degenerative arthrosis of the distal interphalangeal joint. No significant change of soft tissue swelling along the proximal third phalanx. RAD/Finger(s) Min 2 Views IMPRESSION: Possible mild avulsion injury involving the third proximal phalangeal head with adjacent stable soft tissue swelling. Stable osteopenia and degenerative changes. Electronically Signed: Raven Kohler MD at 3:26 EDT , Service support , CC: Jame De La Garza MD Butcher Fish: Signed H. PYLORI STOOL AG Collected: 07/30/2018 Status: F Source: [place] 2:56 PM [facility] REPOSITORY TYPE CODE TESTS RESULT OUT OF RANGE REFERENCE UNITS LAB L3100.1950 Negative Normal H PYLORI Negative STL AG Result Comment: Performed at: - [facility] [address] [id number] Real Estate Acquisition Analyst: Taj Ojeda MD, Phone: [phone] Performed By: #### L3100.1950 #### [facility] (refer to report for specific site) refer to report for address and phone number ESOPHAGUS ONLY Observed: 07/28/2018 Status: F Source: [place] 8:43 AM [facility] REPOSITORY [facility] Imaging Services [address] [place] [address] Esophagus Only MR#: [id number] Acct: [id number] Name: RUBEN LOBO Rep #: [id number] : 1945 F 73 From: Jamaal Gonzales MD PCP: Jame De La Garza MD Status: REG CLI Study: Esophagus Only Date of Exam: 07/28/18 Exam# [id number] Ordering Dr: Jame De La Garza MD STUDY: X-RAY - ESOPHAGUS (BARIUM SWALLOW) WITH FLUOROSCOPY REASON FOR EXAM: Female, 73 years old. Dysphagia. TECHNIQUE: 17 view(s) of the esophagus were obtained following swallowing of barium. FLUOROSCOPY TIME (if supplied): (0:33) minutes/seconds COMPARISON: None. FINDINGS: There is no demonstrated esophageal foreign body. There is no demonstrated stricture or mucosal abnormality. There is a small hiatal hernia of the fundus of the stomach. No gastroesophageal reflux at this time. The patient ingested a 12 mm tablet of barium without any difficulty. There is atherosclerotic calcification of the aortic arch with tortuosity of the descending aorta. Findings suggest lobar inhomogeneous infiltrate in the posterior medial segment of the left lower lobe. There are diffuse degenerative changes of the visualized thoracic spine. RAD/Esophagus Only IMPRESSION: Small sliding hiatal hernia without gastroesophageal reflux. Electronically Signed: Jamaal Gonzales MD at 10:20 EDT Tel [phone], Service support , CC: Jame De La Garza MD Butcher Fish: Signed COMPREHENSIVE METABOLIC Collected: 07/16/2018 Status: F Source: [place] 4:20 PM [facility] REPOSITORY Order Comment: Order Date: 07/16/18 Order Info: 0786-1 - CMP Order Info: 66723-1 - LIPID Order Info: 3084-1 - URIC Order Info: 25711-0 - MG Order Info: 3016-3 - TSH Order Info: 2284-8 - FOLS Order Info: 3024-7 - T4F Is Patient Taking Vitamins or Folic Acid Supplements? N TYPE CODE TESTS RESULT OUT OF RANGE REFERENCE UNITS LAB L501.0100 74-106 mg/dL Normal GLU 92 Result Comment: Please note revised GLUCOSE reference range effective 2017. LAB L501.1000 7-18 mg/dL Normal BUN 13 LAB L501.1100 0.55-1.02 mg/dL Normal CREAT,SERUM 0.97 Result Comment: The validity of the calculated GFR AND GFRAA in patients over 70 years has not been determined. Clinical correlation is essential. LAB L501.1110 >60 mL/min Normal EST GFR 60 Result Comment: Non- GFR Calc LAB L501.1115 >60 mL/min Normal EST GFR - AA 72 Result Comment: GFR Calc LAB L501.1300 10-20 RATIO Normal BUN/CRE 13.4 LAB L501.1500 6.4-8.2 g/dL T Normal PROT 7.9 LAB L501.1800 3.2-5.0 g/dL Normal ALB 3.7 LAB L501.1950 2.2-4.2 g/dL Normal GLOB 4.2 LAB L501.2000 0.9-2.4 RATIO Normal A/G 0.9 LAB L501.2200 8.5-10.1 mg/dL CA Normal 8.9 LAB L501.4100 15-37 U/L Normal AST 34 LAB L501.4305 45-117 U/L Normal ALK P 113 LAB L501.4405 13-56 U/L Normal ALT 36 LAB L501.4600 0.20-1.00 mg/dL T Normal BILI 0.70 LAB L501.5300 136-145 mmol/L NA Normal 143 LAB L501.5600 3.5-5.1 mmol/L K Normal 4.2 LAB L501.5900 98-107 mmol/L CL Normal 104 LAB L501.6100 21.0-32.0 mmol/L Normal CO2 29.0 LAB L501.6200 5-15 Normal GAP 10 Performed By: #### L500.4050, L500.4100, L501.1400, L501.5200, L501.9520, L506.0250, L506.0400, L503.0105, L100.0100, L501.9985 #### [facility] [address] [place], [address] LIPID PROFILE Collected: 07/16/2018 Status: F Source: [place] 4:20 PM [facility] REPOSITORY Order Comment: Order Date: 07/16/18 Order Info: 0786-1 - CMP Order Info: 54948-0 - LIPID Order Info: 3084-1 - URIC Order Info: 70631-9 - MG Order Info: 3016-3 - TSH Order Info: 2284-8 - FOLS Order Info: 3024-7 - T4F Is Patient Taking Vitamins or Folic Acid Supplements? N TYPE CODE TESTS RESULT OUT OF RANGE REFERENCE UNITS LAB L501.4900 200 mg/dL High CHOL 235 Result Comment: <200 mg/dL Desirable 200-240 mg/dL Borderline >240 mg/dL High Risk LAB L501.5000 mg/dL Normal TRIG 97 Result Comment: The drugs N-Acetylcysteine and Metamizole may falsely depress this assay. Serum Triglycerides Reference Interval Normal <150 mg/dL Borderline high 150 - 199 mg/dL High 200 - 499 mg/dL Very High > or = 500 mg/dL LAB L501.6400 mg/dL Normal HDL 56 Result Comment: The drugs N-Acetylcysteine and Metamizole may falsely depress this assay. Reference Range HDL <40 mg/dL Low HDL Cholesterol HDL >or= 60 mg/dL High HDL Cholesterol LAB L501.6500 0-130 mg/dL High LDL 160 LAB L501.6600 5-40 mg/dL Normal VLDL 19 Performed By: #### L500.4050, L500.4100, L501.1400, L501.5200, L501.9520, L506.0250, L506.0400, L503.0105, L100.0100, L501.9985 #### [facility] [address] [place], [place], [address] URIC ACID Collected: 07/16/2018 Status: F Source: [place] 4:20 PM [facility] REPOSITORY Order Comment: Order Date: 07/16/18 Order Info: 0786-1 - CMP Order Info: 46162-2 - LIPID Order Info: 3084-1 - URIC Order Info: 22793-1 - MG Order Info: 3016-3 - TSH Order Info: 2284-8 - FOLS Order Info: 3024-7 - T4F Is Patient Taking Vitamins or Folic Acid Supplements? N TYPE CODE TESTS RESULT OUT OF RANGE REFERENCE UNITS LAB L501.1400 2.6-6.0 mg/dL Normal URIC 2.7 Result Comment: The drugs N-Acetylcysteine and Metamizole may falsely depress this assay. Performed By: #### L500.4050, L500.4100, L501.1400, L501.5200, L501.9520, L506.0250, L506.0400, L503.0105, L100.0100, L501.9985 #### [facility] [address] [place], [address] MAGNESIUM Collected: 07/16/2018 Status: F Source: [place] 4:20 PM [facility] REPOSITORY Order Comment: Order Date: 07/16/18 Order Info: 0786-1 - CMP Order Info: 36055-9 - LIPID Order Info: 308- - URIC Order Info: 21540-8 - MG Order Info: 3 - TSH Order Info: 8 - FOLS Order Info: 7 - T4F Is Patient Taking Vitamins or Folic Acid Supplements? N TYPE CODE TESTS RESULT OUT OF RANGE REFERENCE UNITS LAB L501.5200 1.6-2.6 mg/dL Normal MG 2.3 Performed By: #### L500.4050, L500.4100, L501.1400, L501.5200, L501.9520, L506.0250, L506.0400, L503.0105, L100.0100, L501.9985 #### [facility] [address] [place], [place], [id number] THYROID STIM HORMONE Collected: 07/16/2018 Status: F Source: [place] (TSH) 4:20 PM [facility] REPOSITORY Order Comment: Order Date: 07/16/18 Order Info: 0786-1 - CMP Order Info: 87448-2 - LIPID Order Info: 30802-09 - URIC Order Info: 37927-2 - MG Order Info: 3 - TSH Order Info: 2288 - FOLS Order Info: 302-7 - T4F Is Patient Taking Vitamins or Folic Acid Supplements? N TYPE CODE TESTS RESULT OUT OF RANGE REFERENCE UNITS LAB L501.9520 0.358-3.74 uIU/mL Normal TSH 1.03 Performed By: #### L500.4050, L500.4100, L501.1400, L501.5200, L501.9520, L506.0250, L506.0400, L503.0105, L100.0100, L501.9985 #### [facility] [address] [place], [place], [address] FOLATES, (FOLIC ACID) Collected: 07/16/2018 Status: F Source: [place] 4:20 PM [facility] REPOSITORY Order Comment: Order Date: 07/16/18 Order Info: 0786-1 - CMP Order Info: 19669-2 - LIPID Order Info: 308- - URIC Order Info: 92258-2 - MG Order Info: 3 - TSH Order Info: 2284-06 - FOLS Order Info: 7 - T4F Is Patient Taking Vitamins or Folic Acid Supplements? N TYPE CODE TESTS RESULT OUT OF RANGE REFERENCE UNITS LAB L506.0250 3.1-55.4 ng/mL Normal FOLATES 17.90 Performed By: #### L500.4050, L500.4100, L501.1400, L501.5200, L501.9520, L506.0250, L506.0400, L503.0105, L100.0100, L501.9985 #### [facility] [address] [facility] [place], [address] T4 FREE DIRECT Collected: 07/16/2018 Status: F Source: [place] 4:20 PM [facility] REPOSITORY Order Comment: Order Date: 07/16/18 Order Info: 0786-1 - CMP Order Info: 36742-9 - LIPID Order Info: 1 - URIC Order Info: 14228-0 - MG Order Info: 3 - TSH Order Info: 2284-06 - FOLS Order Info: 7 - T4F Is Patient Taking Vitamins or Folic Acid Supplements? N TYPE CODE TESTS RESULT OUT OF REFERENCE UNITS RANGE LAB L506.0400 0.76-1.46 ng/dL High T4 FREE 1.53 DIRECT Performed By: #### L500.4050, L500.4100, L501.1400, L501.5200, L501.9520, L506.0250, L506.0400, L503.0105, L100.0100, L501.9985 #### [facility] [address] [place], [address] VITAMIN B12 Collected: 07/16/2018 Status: F Source: [place] 4:20 PM [facility] REPOSITORY Order Comment: Order Date: 07/16/18 Order Info: 2132-9 - B12 TYPE CODE TESTS RESULT OUT OF RANGE REFERENCE UNITS LAB L503.0105 211-911 pg/mL Normal Vitamin B12 577 Performed By: #### L500.4050, L500.4100, L501.1400, L501.5200, L501.9520, L506.0250, L506.0400, L503.0105, L100.0100, L501.9985 #### [facility] [place], [address] CBC W/DIFF, AUTOMATED Collected: 07/16/2018 Status: F Source: [place] 4:20 PM [facility] REPOSITORY Order Comment: Order Date: 07/16/18 Order Info: 0184-1 - CBCD TYPE CODE TESTS RESULT OUT OF RANGE REFERENCE UNITS LAB L100.1000 4.4-11.0 K/mm3 Normal WBC 5.0 LAB L100.1200 4.2-5.4 M/mm3 Normal RBC 4.56 LAB L100.1300 12.0-15.0 g/dl Normal HGB 13.3 LAB L100.1400 37-47 % Normal HCT 40.8 LAB L100.1500 81-99 fL Normal MCV 89.5 LAB L100.1600 27.0-32.0 pg Normal MCH 29.2 LAB L100.1700 32-36 g/gl Normal MCHC 32.6 LAB L100.1810 11.6-14.6 % High RDW CV 14.9 LAB L100.1820 35.1-43.9 fl High RDW SD 48.6 LAB L100.1900 150-450 K/mm3 Normal PLT 156 LAB L100.2000 6.2-12.0 fl Normal MPV 11.1 LAB L100.2100 47-70 % Normal NEUT% 68.9 LAB L100.2200 19-41 % Normal LY% 20.1 LAB L100.2300 0-10 % Normal MONO% 9.4 LAB L100.2400 0-5 % Normal EO% 1.0 LAB L100.2500 0-1 % Normal BASO% 0.4 LAB L100.2550 0.0-0.9 % Normal IM GRAN % 0.200 Result Comment: IG% - Immature Granulocytes (promyelocytes, myelocytes and metamyelocytes) > 1% indicates that a LEFT SHIFT is Present. LAB L100.2620 2.0-7.7 X10 3/uL Normal Absolute Neut 3.4 LAB L100.2720 0.83-4.51 X10 3/ul Normal Absolute Lymph 1.00 Performed By: #### L500.4050, L500.4100, L501.1400, L501.5200, L501.9520, L506.0250, L506.0400, L503.0105, L100.0100, L501.9985 #### [facility] [address] [place], [place], [address] HEMOGLOBIN A1C Collected: 07/16/2018 Status: F Source: [place] 4:20 PM [facility] REPOSITORY Order Comment: Order Date: 07/16/18 Order Info: 4548-4 - A1C TYPE CODE TESTS RESULT OUT OF RANGE REFERENCE UNITS LAB L501.9985 4.2-6.3 % Normal HGB A1C 6.1 Performed By: #### L500.4050, L500.4100, L501.1400, L501.5200, L501.9520, L506.0250, L506.0400, L503.0105, L100.0100, L501.9985 #### [facility] [address] [facility] [place], [place], [address] H. PYLORI ANTIBODY Collected: 07/16/2018 Status: F Source: [place] (IGG) 4:20 PM [facility] REPOSITORY TYPE CODE TESTS RESULT OUT OF RANGE REFERENCE UNITS LAB L3100.1900 0.00-0.79 Normal H.PYLORI 0.67 [id number] Result Comment: Result Units: Index Value Negative <0.80 Equivocal 0.80 - 0.89 Positive >0.89 Performed at: [facility] [id number] Real Estate Acquisition Analyst: Marcelo Willard PhD, Phone: [phone] Performed By: #### L3100.1900 #### [facility] (refer to report for specific site) refer to report for address and phone number HAND MIN 3 VIEWS Observed: 07/16/2018 Status: F Source: [place] 4:19 PM [facility] REPOSITORY [facility] Imaging Services [address] [place] [address] Hand Min 3 Views MR#: [id number] Acct: [id number] Name: RUBEN LOBO Rep #: [id number] : 1945 F 73 From: Kimani Jiménez MD PCP: Jame De La Garza MD Status: REG CLI Study: Hand Min 3 Views Date of Exam: 07/16/18 Exam# [id number] Ordering Dr: Jame De La Garza MD STUDY: X-RAY - LEFT HAND REASON FOR EXAM: Pain at the third proximal interphalangeal joint after a fall. TECHNIQUE: 3 view(s) of the hand. COMPARISON: None. FINDINGS: There is osteopenia. Normal radiocarpal articulation. Normal distal radioulnar joint. Normal visualized carpal bones. Normal carpal articulations There is joint space narrowing of the carpometacarpal articulation of the thumb. Normal second through fifth carpometacarpal joints. Normal metacarpi. Normal metacarpophalangeal joint of the thumb. Normal interphalangeal joint of the thumb. Normal proximal and distal phalanges of the thumb. Normal metacarpophalangeal joints of the second through fifth fingers. There are marginal osteophytes and joint space narrowing of the second through fifth distal interphalangeal joints. There is joint space narrowing of the second through fifth proximal interphalangeal joints. There is a very small minimally displaced fracture of the ulnar cortex of the head of the third proximal phalanx best demonstrated on the oblique view. There is soft tissue swelling the third digit. RAD/Hand Min 3 Views IMPRESSION: Very small fracture of the ulnar cortex of the head of the third proximal phalanx. Arthrosis of the first carpometacarpal joint and second through fifth proximal and distal interphalangeal joints. Osteopenia. Electronically Signed: Kimani Jiménez MD at 14:15 EDT Tel , Service support , CC: Jame De La Garza MD Butcher Fish: Signed PROGRESS Observed: 06/03/2018 Status: COMPLETED Source: [place] 3:25 PM [facility] REPOSITORY HNO ID: [id number] Author: Mario Bhatia Service: (none) Author Type: Physician Type: Progress Notes Filed: 06/03/2018 4:01 PM Note Text: ASSESSMENT/PLAN: 1. 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 - YAG CAPSULOTOMY OS (LEFT EYE) 2. Punctate keratitis of both eyes - ICD9: 370.21, ICD10: H16.143 Continue Systane Balance three times daily into both eyes. 3. 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 4. Essential hypertension - ICD9: 401.9, ICD10: I10 Manage care with primary care physician. Mario Bhatia MD I have confirmed and edited as necessary the relevant ophthalmic history, review of systems, surgical history, and ophthalmological examination findings as obtained by the ophthalmic technical staff. I have seen and examined Ruben Lobo. I have discussed the examination findings, diagnosis, and treatment options with Ruben Lobo and/or her family. I have also reviewed and agree with the assessment and plan as stated above and agree with all its relevant components. I gave the patient the opportunity to ask questions about the findings, diagnosis, and treatment options. PROGRESS Observed: 05/13/2018 Status: COMPLETED Source: [place] 2:04 PM [facility] REPOSITORY HNO ID: [id number] Author: Mario Bhatia Service: (none) Author Type: Physician Type: Progress Notes Filed: 05/13/2018 2:08 PM Note Text: ASSESSMENT/PLAN: 1. 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 Punctate keratitis of both eyes - ICD9: 370.21, ICD10: H16.143 Begin: Systane Balance 1 drop in both eyes three times daily 3. 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 Essential hypertension - ICD9: 401.9, ICD10: I10 Continue care with primary care physician Mario Bhatia MD I have confirmed and edited as necessary the relevant ophthalmic history, review of systems, surgical history, and ophthalmological examination findings as obtained by the ophthalmic technical staff. I have seen and examined Ruben Lobo. I have discussed the examination findings, diagnosis, and treatment options with Ruben Lobo and/or her family. I have also reviewed and agree with the assessment and plan as stated above and agree with all its relevant components. I gave the patient the opportunity to ask questions about the findings, diagnosis, and treatment options. PULMONARY FUNCTION Observed: 03/28/2018 Status: F Source: [place] REPORT COMP 2:44 PM [facility] REPOSITORY [facility] Pulmonary Services/Neurology [address] [place] [address] MR#: [id number] Acct: [id number] Name: RUBEN LOBO Rep #: [id number] : 1945 73 From: Doug Brewer MD Referring Dr: Sampson Cuevas NP Status: REG CLI Ordering Dr: Date: Location: PSN Sex: F C COMPLETE PULMONARY FUNCTION TEST INTERPRETATION Brief HPI: Patient is a 73 year old female, currently under the care of Sampson Cuevas, who presents to [facility] for complete pulmonary function tests secondary to diagnosis of hypertension. Respiratory therapist reports good effort and reproducible results. Interpretation: Forced expiration spirometry shows no large airways obstructive ventilatory defect with an FEV1 of 84% predicted. There is no significant bronchodilator response by ATS criteria. Spirograms are of good quality and plateau normally. The respiratory flow volume loop shows a normal pattern. Lung volumes by body plethysmography show a normal total lung capacity at 3.55 L, 85% predicted. All other lung volumes are within normal limits. Diffusion capacity by carbon monoxide is normal at 89% predicted. The airway resistance is elevated. Compared to previous pulmonary function tests from 08/23/2016, there has been a significant improvement in in DLCO by 38%. Impression: These pulmonary function tests are grossly within normal limits. There has been improvement compared to previous testing 03/28/18 9081 <Electronically signed by Doug Brewer MD> Date Doug Brewer MD CC: BRYAN Cuevas; Doug Brewer MD; Jame De La Garza MD Date Dictated: 03/28/18 144 Date Transcribed: 03/28/181440 Butcher Fish: CELY Signed CARDIOLOGY VISIT Observed: 03/10/2018 Status: F Source: [place] 1:05 PM [facility] REPOSITORY [facility] [address] [place] [address] OFFICE VISIT Date of Service: 03/10/18 MR#: [id number] Acct: [id number] Name: RUBEN LOBO Rep #: [id number] : 1945 Provider: BRYAN Cuevas Age/Sex: 72/F [place] [facility] [place]: Signed HPI HPI Details: RUBEN LOBO, is a 72 F who presents to the office today for a cardiovascular outpatient follow-up. She has a history of atrial flutter with a cardioversion in April 2016, hypertension, and previous ASD with repair in 1962. Pt. denies chest, arm, jaw, or neck discomfort. Her exercise tolerance is stable. Pt. denies symptoms of CHF, palpitations, lightheadedness, near syncope, or syncopal episodes. Pt. denies edema or claudication issues. Pt. denies PND, fever, chills, blood in urine, blood in stool, or myalgia. She states fatigue after working outside for two hours and being the sun. She state some dizziness with quick position changes. She states sleeping on an incline for years. She states her weight is increased. She states some difficulty swallowing d/t GERD. Intake Vital Signs03/10/18 Height 5 ft 1 in 03/10/18 Weight: 140 lb 03/10/18 Body Mass Index (BMI) 26.4 03/10/18 Blood Pressure 126/62 Intake Visit Reasons: 6 M FU [employer] Required: No Accompanied by: Is patient in pain?: No Allergies No Known Allergies Allergy (Verified 03/10/18 10:03) Medications Pantoprazole Sodium [Protonix] 40 mg PO DAILY 09/02/15 [History Confirmed 03/10/18] Sertraline HCl 50 mg PO DAILY 09/02/15 [History Confirmed 03/10/18] amiodarone 200 mg tablet 200 mg PO DAILY #90 tab 11/14/17 [Rx Confirmed 03/10/18] apixaban 5 mg tablet 5 mg PO BID #14 tab 01/02/18 [Rx Confirmed 03/10/18] magnesium oxide 400 mg tablet 400 mg PO BID #180 tab 02/07/18 [Rx Confirmed 03/10/18] diltiazem CD 120 mg capsule,extended release 24 hr 120 mg PO DAILY #90 cap 03/10/18 [Rx Confirmed 03/10/18] Ejection fraction %: 60 to 64 PFSH Medical History Dilatation of pulmonic artery (Chronic) Daytime somnolence (Chronic) Congenital heart disease (Chronic) 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, left (Chronic) 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) HTN (hypertension) (Chronic) GERD (gastroesophageal reflux disease) (Chronic) New onset atrial flutter (Acute) Hypotension (Acute) Atrial flutter (Chronic) Atypical chest pain (Acute) Surgical History Hx of CABG (Resolved) Hx of appendectomy (Resolved) interatrial septal repair (Resolved) Family History Mother Hypertension Father Cancer Brother Cancer Son CVA (cerebral vascular accident) Diabetes Brother TIA (transient ischemic attack) Social History Smoking Status: Never smoker alcohol intake: never substance use type: does not use caffeine: Yes Type: coffee Number of servings: 1 what type of physical activity do you participate in: walking frequency: daily duration: 30-45 minutes/day seatbelt use: always do you feel safe at home: Yes ROS Const Const: Positive for fatigue and weight gain; negative for weakness, body ache, fever(s) or chills ENT ENT: Positive for dizziness Cardio Chest Pain: No Palpitations: No Edema: None Muscle aches with walking: None Resp Respiratory: Positive for SOB orthopnea\SOB lying down (not new); negative for SOB with activity, SOB at rest or paroxysmal nocturnal dyspnea GI GI: Positive for heartburn (with difficulty swollowing); negative nausea, black,tarry stools, bright, red blood in stools or vomiting blood/hematemesis : Negative for hematuria or frequent nighttime urination/ nocturia Musc Musc: Negative for muscle aches/ myalgia Neuro Neuro: Positive for dizziness; negative for weakness, lightheadedness, near syncope, syncope or orthostatic symptoms Endo Endo: Positive for fatigue Cardiology Exam Const Appearance: cooperative, healthy appearing, comfortable and no acute distress Orientation: alert, awake and oriented x3 Head Head: normal to inspection Mouth: oral mucosae normal Neck Neck: no JVD and normal visual inspection Carotids: normal carotid upstroke Chest Chest inspection: normal inspection of the chest and normal respiratory effort Auscultation: Bilateral: Clear to Auscultation Cardio Rate: regular rate Rhythm: regular rhythm Heart sounds: S1 normal and S2 normal; negative rub or gallop GI GI: normal to inspection Neuro General: alert, awake, oriented x3 and CN's II-XI intact bilaterally Skin Skin: no rashes or lesions noted Extremities Pulses: Normal: Right Posterior Tibial Pulse, Left Posterior Tibial Pulse, Right Radial Pulse, Left Radial Pulse Lower Extremity Edema: None: Bilateral Psych Psychological: normal affect Supplemental Info Stress test from January 2017 showed no peak exercise ECG changes. Nuclear images were negative for stress-induced myocardial ischemia and previous myocardial injury/infarction. Ejection fraction was reported at 67%. MARYJO from April 2016 showed an estimated ejection fraction 55%, moderately enlarged left atrium, no spontaneous contrast in left atrium, no thrombus detected left atrial appendage, severely enlarged right atrium, mild diffuse mitral thickening, moderate mitral valve insufficiency, moderate tricuspid valve insufficiency, mild diffuse aortic valve thickening, trivial aortic valve insufficiency, mild pulmonic valve insufficiency, ASD repair with color-flow Doppler evidence compatible with 2 very small areas of residual left to right interatrial shunt, bubble contrast study negative for right to left interatrial shunt, and mild atherosclerosis of the aortic arch. Assessment AND Plan 1. Paroxysmal atrial fibrillation I48.0 Plan Patient EKG in office showed sinus rhythm at a rate of 71 bpm. Her MARYJO from April 2016 showed an ejection fraction of 55%. Her stress test from January 2017 was negative for stress-induced myocardial ischemia. Patient denies any recurrence of this. She will continue current medications which include calcium channel kelly, 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, and factor Xa inhibitor. 2. Essential hypertension I10 Plan Patient's blood pressure is well-controlled today in the office. We will continue to monitor this. We will not make any medication regimen changes. Orders Orders: 3. Pure hypercholesterolemia E78.00; E78.0 Plan Patient believes is being managed by primary care physician. She is not on any cholesterol lowering medication. 4. H/O atrial septal defect repair Z87.74 Plan MARYJO from April 2016 showed ASD repair with color-flow Doppler evidence compatible with 2 very small areas of residual left to right intra-atrial shunt. Patient denies any changing or worsening shortness of breath. We will continue to monitor this through history, exam, and repeat echocardiogram as needed. 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 Thus due to long-term amiodarone therapy she will undergo a pulmonary function test, liver profile, and thyroid function tests. We will wait for the results for further recommendation. She declined repeat chest x-ray at this time. Orders Orders: 6. Hypomagnesemia E83.42 Plan Patient inquired if her magnesium to be taken once a day. Thus, a magnesium level will be drawn to further evaluate. We will wait for results of this test for further recommendation. Plan Detail Other Orders Orders: Other Medications Refilled: Additional Comments Thank you for allowing us to participate in the patients plan of care, if you have any questions please do not hesitate to call. This note was generated using a voice recognition system and there may be incorrect words, spelling or punctuation that were not noted when reviewing the office note prior to saving. 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 Hypomagnesemia E83.42 Coding Level of Care Code Off vis,est,level 3 Diagnoses Paroxysmal atrial fibrillation I48.0 Essential hypertension I10 Hypertension type: essential hypertension Pure hypercholesterolemia E78.00; E78.0 Hyperlipidemia type: pure hypercholesterolemia H/O atrial septal defect repair Z87.74 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 Z79.899 Hypomagnesemia E83.42 03/10/18 1305 <Electronically signed by Sampson RUCKER> Date Sampson RUCKER Cosigner Signature: Date (if applicable) CC: Jame De La Garza MD LIVER PROFILE Collected: 03/10/2018 Status: F Source: [place] 11:05 AM [facility] REPOSITORY TYPE CODE TESTS RESULT OUT OF RANGE REFERENCE UNITS LAB L501.1500 6.4-8.2 g/dL Normal T PROT 7.4 LAB L501.1800 3.2-5.0 g/dL Normal ALB 3.4 LAB L501.1950 2.2-4.2 g/dL Normal GLOB 4.0 LAB L501.4100 15-37 U/L Normal AST 28 LAB L501.4305 45-117 U/L Normal ALK P 108 LAB L501.4405 13-56 U/L Normal ALT 33 LAB L501.4600 0.20-1.00 mg/dL Normal T BILI 0.30 LAB L501.4700 0.00-0.30 mg/dL Normal D BILI 0.11 Performed By: #### L500.3400, L501.5200, L501.9520, L506.0400 #### [facility] [address] [place], [place], [address] MAGNESIUM Collected: 03/10/2018 Status: F Source: [place] 11:05 AM [facility] REPOSITORY TYPE CODE TESTS RESULT OUT OF RANGE REFERENCE UNITS LAB L501.5200 1.6-2.6 mg/dL Normal MG 2.3 Performed By: #### L500.3400, L501.5200, L501.9520, L506.0400 #### [facility] [address] [place], [address] THYROID STIM HORMONE Collected: 03/10/2018 Status: F Source: [place] (TSH) 11:05 AM [facility] REPOSITORY TYPE CODE TESTS RESULT OUT OF RANGE REFERENCE UNITS LAB L501.9520 0.358-3.74 uIU/mL Normal TSH 1.16 Performed By: #### L500.3400, L501.5200, L501.9520, L506.0400 #### [facility] [address] [place], [address] T4 FREE DIRECT Collected: 03/10/2018 Status: F Source: [place] 11:05 AM [facility] REPOSITORY TYPE CODE TESTS RESULT OUT OF RANGE REFERENCE UNITS LAB L506.0400 0.76-1.46 ng/dL Normal T4 FREE 1.37 DIRECT Performed By: #### L500.3400, L501.5200, L501.9520, L506.0400 #### [facility] [address] [place], [address] 12 LEAD EKG PERFORMED Observed: 03/10/2018 Status: F [place] [facility] [place] [facility] REPOSITORY [facility] [address] [place] [address] 12 Lead EKG performed [place] [facility] [place] 03/10/18 0956 MR#: [id number] Acct: [id number] Name: RUBEN LOBO Rep #: [id number] : 1945 72 From: Sampson Cuevas TAILMAN-C Attending Dr: Sampson Cuevas NP Status: REG AMB Ordering Dr: Sampson Cuevas TAILMANMariellaC Date: 03/10/18 [place] [facility] [place]: F C [place] [facility] [place] Lead EKG [place] [facility] [place] ECG Report Interpretation Sinus Rhythm Electronically signed on 03/10/2018 at 10:32 by Jack Duran 03/10/18 1033 Date Sampson RUCKER CC: Jame De La Garza MD Date Dictated: 03/10/18955 Date Transcribed: 03/10/18955 Butcher Fish: MAYDA Signed PROTHROMBIN TIME W/INR Collected: 12/02/2017 Status: F Source: [place] 10:15 AM [facility] REPOSITORY TYPE CODE TESTS RESULT OUT OF RANGE REFERENCE UNITS LAB L300.4150 11.7-14.9 SECONDS High PROTIME 18.7 LAB L300.4200 Normal INR 1.6 Performed By: #### L300.3900 #### [facility] [address] [place], [address] PROTHROMBIN TIME W/INR Collected: 11/28/2017 Status: F Source: [place] 10:17 AM [facility] REPOSITORY Order Comment: CRITICAL VALUE VERIFIED. CALLED TO [facility] 11/28/17 1109 Indira Crawford. RESULTS READ BACK BY GENEVA . TYPE CODE TESTS RESULT OUT OF REFERENCE UNITS RANGE LAB L300.4150 11.7-14.9 SECONDS High PROTIME 40.9 LAB L300.4200 High alert INR 4.5 Performed By: #### L300.3900 #### [facility] [address] [place], [address] PROTHROMBIN TIME W/INR Collected: 11/25/2017 Status: F Source: [place] 10:19 AM [facility] REPOSITORY Order Comment: Comments: STANDING ORDER Comments: STANDING ORDER TYPE CODE TESTS RESULT OUT OF REFERENCE UNITS RANGE LAB L300.4150 11.7-14.9 SECONDS High PROTIME 50.3 LAB L300.4200 High alert INR 5.8 Result Comment: CRITICAL VALUE VERIFIED. CALLED TO [facility] AT [facility] 11/25/17 1125 Arcelia Ernst. RESULTS READ BACK BY SAME . Performed By: #### L300.3900 #### [facility] [address] [place], [address] ALLERGIES ALLERGIES DATE TYPE / CODE NAME / CODE REACTION SEVERITY SOURCE 10/18/2018 Drug No Known Unknown [facility] Allergy/416 Allergies/M94394 [facility] 432044(SNOM 0388(RXNORM) Repository ED CT) Drug NO KNOWN [facility] Class/82399 ALLERGIES [facility] [place] 1003(SNOMED Repository CT) ENCOUNTERS ENCOUNTERS ADMIT/DISCHARGE ACCOUNT ADMITTING ENCOUNTER LOCATION SOURCE NUMBER CLASS 10/23/[id number] [facility] Hospital ing:MTLAB Repository 10/18/2018/10/18/20 [id number] Ambulatory BMSBuilding:B [place] 18 MS.[facility] Repository 10/07/2018/10/07/20 [id number] Ambulatory [address] Hospital ing:ENRoom: Repository AC10 10/07/2018/10/07/20 [id number] Ambulatory BMSBuilding:B [place] 18 MS.CF.[facility] Repository 09/27/2018 [id number] Ambulatory [facility] Hospital ing:LAB Repository 09/10/2018/09/10/20 [id number] Ambulatory [address] Hospital ing:EN Repository 09/10/2018/09/10/20 [id number] Ambulatory BMSBuilding:B [place] 18 MS.CF.[facility] Repository 09/09/2018/09/09/20 [id number] Ambulatory BMSBuilding:B Valentina 18 MS.[facility] Hospital Repository 09/01/2018 [id number] Ambulatory [facility] Hospital ing:US Repository 08/27/2018 [id number] Ambulatory [facility] Hospital ing:OPBD Repository 08/26/2018 [id number] Ambulatory [facility] Hospital ing:CT Repository 08/25/2018/08/25/20 [id number] Ambulatory BMSBuilding:B [place] 18 MS.[facility] Repository 08/20/2018 [id number] Ambulatory [facility] ing:RAD Repository 08/16/2018 [id number] Ambulatory [facility] Hospital ing:OPBI Repository 08/13/2018 [id number] Ambulatory [facility] ing:MTRAD Repository 07/30/2018 [id number] Ambulatory [facility] Hospital ing:LABSPEC Repository 07/28/2018 [id number] [facility]RAD Repository 07/16/2018 [id number] Ambulatory [facility] Hospital ing:MTLAB Repository 06/03/2018/06/04/20 [id number] Ambulatory [address] Repository 05/13/2018/05/15/20 [id number] Ambulatory [address] Repository 03/28/2018 [id number] Ambulatory [facility] Hospital ing:PSN Repository 03/28/2018 [id number] Ambulatory BMSBuilding:[facility] Repository 03/10/2018 [id number] Ambulatory [facility] Hospital ing:LAB Repository 03/10/2018/03/10/20 [id number] Ambulatory BMSBuilding:B Valentina [address] MS.[facility] Repository 03/04/2018 [id number] Ambulatory [facility] Hospital Repository 02/27/2018 [id number] Ambulatory BMSBuilding:B Anderson MS.[facility] Hospital Repository 02/24/2018 [id number] Ambulatory BMSBuilding:B Anderson MS.[facility] Hospital Repository 12/13/2017 [id number] Ambulatory [facility] Hospital ing:LAB Repository 12/02/2017/12/02/19 [id number] Ambulatory [address] Hospital ing:LAB Repository PAYERS PAYERS ENCOUNTER GUARANTOR PAYER SUBSCRIBER SOURCE 10/23/2018 RUBEN Campos Primary RUBEN Campos Valentina [id number] Insurance:HUMANA HERMANDOB: Community [employer] [id number] Repository [address]Bmi: (414) [id number] [phone] () Date:7535-93-92CD [address] [address]DV: 10/23/2018 Secondary NOT GIVENUNK Anderson Insurance:SELF PAY [facility] Number: Effective Repository Date:2018-10-23 10/18/2018 RUBEN Campos Primary RUBEN Campos Valentina [id number] Insurance:HUMANA HERMANDOB: Community [employer]IC[facility] [id number], [place] Number: Repository [address]Fuw: (330 [id number] [phone] (HP) Date:4433-91-93BW [address] [address]IN: 10/18/2018 Secondary NOT GIVENUNK Valentina Insurance:SELF PAY [facility] Effective Repository Date:2018-10-18 10/07/2018 RUBEN Campos Primary RUBEN Campos [place] [id number] Insurance:HUMANA HERMANDOB: Community [employer]IC[facility] [id number], [place] Number: Repository [address]Eaf: 330 [id number] [phone] (HP) Date:4601-36-94II [address] [address]XX: 10/07/2018 Secondary NOT GIVENUNK Anderson Insurance:SELF PAY [facility] Number: Effective Repository Date:2018-09-19 10/07/2018 RUBEN Campos Primary RUBEN Campos Valentina [id number] Insurance:HUMANA HERMANDOB: Community [employer]IC[facility] [id number], [place] Number: Repository [address]Gyk: (330 [id number] [phone]) Date:1794-82-38FE [address] [address]CY: 10/07/2018 Secondary NOT GIVENUNK Valentina Insurance:SELF PAY [facility] Number: Effective Repository Date:2018-10-07 09/27/2018 RUBEN Campos Primary RUBEN Campos [place] [id number] Insurance:HUMANA HERMANDOB: Community [employer] [id number], [place] Number: Repository [address]Xor: (330 [id number] [phone]) Date:2052-53-24RC [address] [address]TL: 09/27/2018 Secondary NOT GIVENUNK Anderson Insurance:SELF PAY [facility] Number: Effective Repository Date:2018-09-27 09/10/2018 RUBEN Campos [place] [id number] Insurance:HUMANA HERMANDOB: Community S[employer]IO MEDICARE PPOPolicy [id number] [place] Number: Repository [address]Ayz: 330 [id number] [phone] (HP) Date:6898-96-18XU [address] [address]GR: 09/10/2018 Secondary NOT GIVENUNK Valentina Insurance:SELF PAY [facility] Number: Effective Repository Date:2018-08-27 09/10/2018 RUBEN Campos Valentina [id number] Insurance:HUMANA HERMANDOB: Community S[employer] MEDICARE PPOPolicy [id number] [place] Number: Repository [address]Hil: 330 [id number] [phone] () Date:9637-81-19CC [address] [address]NG: 09/10/2018 Secondary NOT GIVENUNK Anderson Insurance:SELF PAY [facility] Number: Effective Repository Date:2018-09-10 09/09/2018 RUBEN Campos Valentina [id number] Insurance:HUMANA HERMANDOB: Community [employer] MEDICARE PPOPolicy [id number] [facility] [place] Number: Repository [address]Zlu: 330 [id number] [phone] (HP) Date:4437-46-34NL [address] [address]QR: 09/09/2018 Secondary NOT GIVENUNK Anderson Insurance:SELF PAY [facility] Number: Effective Repository Date:2018-09-09 09/01/2018 RUBEN Campos Primary RUBEN Campos Valentina [id number] Insurance:HUMANA HERMANDOB: Community S[employer]IO MEDICARE PPOPolicy [id number] [place] Number: Repository [address]Ige: (330 [id number] [phone] (HP) Date:4748-91-17NP [address] [address]RD: 09/01/2018 Secondary NOT GIVENUNK Anderson Insurance:SELF PAY [facility] Number: Effective Repository Date:2018-08-28 08/27/2018 RUBEN Campos [place] [id number] Insurance:HUMANA HERMANDOB: Community S[employer]IO MEDICARE [id number] [place] Number: Repository [address]Lup: (330 [id number] [phone] (HP) Date:3999-14-01UQ [address] [address]MU: 08/27/2018 Secondary NOT GIVENUNK Valentina Insurance:SELF PAY [facility] Number: Effective Repository Date:2018-08-15 08/26/2018 [place] Alivia Primary RUBEN Campos Valentina [id number] Insurance:HUMANA HERMANDOB: Community [facility]L[employer]IO MEDICARE [facility] [id number] Number: Repository [address]Ics: (330) [id number] [phone] (HP) Date:5908-32-82SO [address] [address]FB: 08/26/2018 Secondary NOT GIVENUNK Valentina Insurance:SELF PAY [facility] Number: Effective Repository Date:2018-08-18 08/25/2018 RUBEN Campos [place] [id number] Insurance:HUMANA HERMANDOB: Community [facility] [facility]IC[facility] [id number] Health [facility] Number: Repository [address]Oeu: (330 [id number] [phone] (HP) Date:8466-14-81QE [address] [address]VX: 08/25/2018 Secondary NOT GIVENUNK Anderson Insurance:SELF PAY [facility] Number: Effective Repository Date:2018-08-25 08/20/2018 [place] Campos [place] [id number] Insurance:HUMANA HERMANDOB: Community [employer] [id number], [place] Number: Repository [address]Lwq: 330 [id number] [phone] (HP) Date:7856-71-33TP [address]4601WP: 08/20/2018 Secondary NOT GIVENUNK Valentina Insurance:SELF PAY [facility] Number: Effective Repository Date:2018-08-14 08/16/2018 [place] Campos [place] [id number] Insurance:HUMANA HERMANDOB: Community [facility] [facility]IC[facility] [id number], [place] Number: Repository [address]Evm: (330 [id number] [phone] (HP) Date:1600-62-44JV [place] [address]WP: 08/16/2018 Secondary NOT GIVENUNK Valentina Insurance:SELF PAY [facility] Number: Effective Repository Date:2018-07-21 08/13/2018 [place] Campos Valentina [id number] Insurance:HUMANA HERMANDOB: Community [employer] [facility]IC[facility] [id number], [place] Number: Repository [address]Rzw: (330 [id number] [phone] (HP) Date:6276-57-28OM [place] [address]69712[address]WP: 08/13/2018 Secondary NOT GIVENUNK Valentina Insurance:SELF PAY [facility] Number: Effective Repository Date:2018-08-13 07/30/2018 [place] Campos [place] [id number] Insurance:HUMANA HERMANDOB: Community [facility] [facility]IC[facility] [id number], [place] Number: Repository [address]Tgs: (330 [id number] [phone] (HP) Date:2796-44-43NA [address] [place] [address]VX: 07/30/2018 Secondary NOT GIVENUNK Anderson Insurance:SELF PAY [facility] Number: Effective Repository Date:2018-07-30 07/28/2018 [place] Campos [place] [id number] Insurance:HUMANA HERMANDOB: Community [facility] [id number], [place] Number: Repository [phone]: (330) [id number] [phone] (HP) Date:2885-99-22YQ [address] [place] [address]KJ: 07/28/2018 Secondary NOT GIVENUNK Anderson Insurance:SELF PAY [facility] Number: Effective Repository Date:2018-07-22 07/16/[address] [facility] RUBEN Campos Valentina [id number] Insurance:HUMANA HERMANDOB: Community [facility]IO MEDICARE [facility] [id number] [place] [address], [place]: Repository [address]Ycq: (330 [id number] [phone] () Date:1350-27-90TR [address] [address]AG: 07/16/2018 Secondary NOT GIVENUNK Anderson Insurance:SELF PAY [facility] Number: Effective Repository Date:2018-07-16 03/28/[address] [facility] RUBEN Campos Valentina [id number] Insurance:HUMANA HERMANDOB: Community [facility] [facility]IC[facility] [id number], [place] Number: Repository [address]Suv: [id number] [phone] Date:1728-86-98HB [address] () [address] [place] [address] [id number]: 03/28/2018 Secondary NOT GIVENUNK Valentina Insurance:SELF PAY [facility] Number: Effective Repository Date:2018-03-10 03/28/[address] [place] [address] [facility] RUBEN Campos Valentina [id number] Insurance:HUMANA HERMANDOB: Community [employer] MEDICARE PPOPolicy [id number] [place] Number: Repository [address]Izp: [id number] [phone] Date:[id number] [address] (HP) [address] [place] [id number]: 03/28/2018 Secondary NOT GIVENUNK Anderson Insurance:SELF PAY [facility] Number: Effective Repository Date:2018-03-28 03/10/[address] [place] [address] [facility] RUBEN Campos Valentina [id number] Insurance:HUMANA HERMANDOB: Community [facility] MEDICARE [facility] [id number] [facility] Number: Repository [id number]: [id number] [phone] Date:1437-95-55SQ [address] (HP) [address] [place] [id number]: 03/10/2018 Secondary NOT GIVENUNK Valentina Insurance:SELF PAY [facility] Number: Effective Repository Date:2018-03-10 03/10/2018 [place] [facility] RUBEN Campos Anderson [id number] Insurance:HUMANA HERMANDOB: Community [facility] MEDICARE [facility] [id number] Number[place] Repository [address]Txu: [id number] [phone] Date:[id number] [address] (HP) [address] [place] [id number]: 03/10/2018 Secondary NOT GIVENUNK Valentina Insurance:SELF PAY [facility] Number: Effective Repository Date:2018-03-10 03/04/2018 [place] [facility] RUBEN Campos Valentina [id number] Insurance:HUMANA HERMANDOB: Community [employer] MEDICARE [facility] [id number] Number: Repository [address]Tsg: [id number] [phone] Date:1793-82-96UX [address] (HP) [address] [place] [id number]: 03/04/2018 Secondary NOT GIVENUNK Valentina Insurance:SELF PAY [facility]: Effective Repository Date:2018-03-04 02/27/2018 [place] Campos Valentina [id number] Insurance:HUMANA HERMANDOB: Community [employer] MEDICARE PPOPolicy [id number] Number: Repository [id number]: [id number] [phone] Date:[id number] [address] (HP) [id number] [place] [id number]: 02/27/2018 Secondary NOT GIVENUNK Anderson Insurance:SELF PAY [facility] Number: Effective Repository Date:2018-02-27 02/24/[address] [place] [address] [facility] RUBEN Campos Anderson [id number] Insurance:ANTHEM HERMANDOB: Community [employer] MEDICARE [facility] [id number] [place] Number: Repository [address]Ayd: [id number] [phone] Date:1617-28-07DY [address] (HP) [id number] [place] [address]JA: 02/24/2018 Secondary NOT GIVENUNK Anderson Insurance:SELF PAY [facility] Number: Effective Repository Date:2017-10-28 12/13/[address] [address] [facility] RUBEN Campos Valentina [id number] Insurance:HUMANA HERMANDOB: Community [employer] MEDICARE PPOPolicy [id number] [facility] Number[place] Repository [address]Lvu: [id number] [phone] Date:8706-53-24UC [address] (HP) [id number] [place] [id number]: 12/13/2017 Secondary NOT GIVENUNK Valentina Insurance:SELF PAY [facility] Number: Effective Repository Date:2017-12-13 12/02/[address] [place] [address] [facility] RUBEN Campos Anderson [id number] Insurance:HUMANA HERMANDOB: Community [place] MEDICARE [id number] [address]Kfv: [id number] [phone] Date:6602-09-15NQ [address] () [address], [place] [address]XP: 12/02/2017 Secondary NOT GIVENUNK Anderson Insurance:SELF PAY [facility] Number: Effective Repository Date:2017-11-25
== END 2018-10-07 12:21 | disposition home or self-care (01) ==
LOC: EN 09:11 → AC 09:12
PROVIDERS: Family Provider Family Medicine; PCP Family Medicine; Referring Provider Surgery; Visit Provider Surgery
PROC: (CPT 43235; principal; 2018-10-07 09:55)
DX: K21.0 Gastro-esophageal reflux disease with esophagitis (principal); K31.7 Polyp of stomach and duodenum; K29.50 Unspecified chronic gastritis without bleeding; K44.9 Diaphragmatic hernia without obstruction or gangrene; I48.92 Unspecified atrial flutter; I48.0 Paroxysmal atrial fibrillation; I10 Essential (primary) hypertension; Q24.9 Congenital malformation of heart, unspecified; Z79.02 Long term (current) use of antithrombotics/antiplatelets; Z79.899 Other long term (current) drug therapy
CPT/HCPCS: 43239; 91035; 88305; 88312; 88342; 99152; 99153; J7120

== ENCOUNTER → 2018-10-23 14:57 | Outpatient (CLI) | payer MEDICARE, SELFPAY ==
[2018-10-18 08:30] VITALS: BMI 26.4
[2018-10-23 17:37] LABS: Magnesium 2.3 mg/dL (1.6-2.6)
[2018-10-23 17:53] LABS: Vitamin D,25 Hydroxy 22.3 ng/mL (29.95-100.01)
[2018-10-23 17:54] LABS: PTHIN 52.9 pg/mL (18.4-80.1)
--- OUTSIDE RECORDS SUMMARY | 2018-12-09 12:31 | XMS RPT_ITS ---
:1945 Author Organization OHIP Support Name Relationship Address Phone ATEN, ASPEN Unavailable . + [place] [address] WESTON LOBO Unavailable [address] + [place] [address] R Unavailable Unavailable Unavailable ATEN, ASPEN Unavailable . + [place] [address] WESTON LOBO Unavailable [address] + [place] [address] R Unavailable Unavailable Unavailable ATEN, ASPEN Unavailable Unavailable + [place] [address] WESTON LOBO Unavailable [address] + [place] [address] R Unavailable Unavailable Unavailable ATEN, ASPEN Unavailable . + [place], [place] / [facility] LOBO Unavailable [address] + [place] [address] R Unavailable Unavailable Unavailable ATEN, ASPEN Unavailable Unavailable + [place] LOBO Unavailable [address] + [place] [address] R Unavailable Unavailable Unavailable ATEN, ASPEN Unavailable . + [place], [place] / [facility] L[facility]O Unavailable [address] + [place] [address] R Unavailable Unavailable Unavailable ATEN, ASPEN Unavailable Unavailable + [facility] LOBO Unavailable [address] + [place] [address] R Unavailable Unavailable Unavailable ATEN, ASPEN Unavailable Unavailable + [facility] LOBO Unavailable [address] + [place] [address] R Unavailable Unavailable Unavailable ATEN, ASPEN Unavailable Unavailable + [facility] LOBO Unavailable [address] + [place] [address] R Unavailable Unavailable Unavailable ATEN, ASPEN Unavailable . + ., [place] . [facility] LOBO Unavailable [address] + [place] [address] R Unavailable Unavailable Unavailable ATEN, ASPEN Unavailable Unavailable + [facility]O Unavailable [address] + [place] [address] R Unavailable Unavailable Unavailable ATEN, ASPEN Unavailable Unavailable + [facility] Unavailable [address] + [place] [address] R Unavailable Unavailable Unavailable ATEN, ASPEN Unavailable Unavailable + [facility] Unavailable [address] + [place] [address] R Unavailable Unavailable Unavailable ATEN, ASPEN Unavailable . + [place] [address] WESTON LOBO Unavailable [address] + [place] [address] R Unavailable Unavailable Unavailable ATEN, ASPEN Unavailable Unavailable + [facility] Unavailable [address] + [place] [address] R Unavailable Unavailable Unavailable ATEN, ASPEN Unavailable Unavailable + [facility] Unavailable [address] + [place] [address] R Unavailable Unavailable Unavailable ATEN, ASPEN Unavailable Unavailable + [place] [address] WEST[facility] LOBO Unavailable [address] + [place] [address] R Unavailable Unavailable Unavailable ATEN, ASPEN Unavailable Unavailable + [place] [address] WEST[facility] LOBO Unavailable [address] + [place] [address] R Unavailable Unavailable Unavailable ATEN, ASPEN Unavailable Unavailable + [place] [address] WESTON LOBO Unavailable [address] + [place] [address] R Unavailable Unavailable Unavailable ATENASPEN Unavailable Unavailable + [place] [address] WESTON LOBO Unavailable [address] + [place] [address] R Unavailable Unavailable Unavailable WESTON LOBO Unavailable [address] + [place] [address] R Unavailable Unavailable Unavailable WESTON LOBO Unavailable [address] + [place] [address] R Unavailable Unavailable Unavailable WESTON LOBO Unavailable [address] + [place] [address] R Unavailable Unavailable Unavailable WESTON LOBO Unavailable [address] + [place] [address] R Unavailable Unavailable Unavailable WESTON LOBO Unavailable [address] + [place] [address] R Unavailable Unavailable Unavailable WESTON LOBO Unavailable [address] + [place] [address] R Unavailable Unavailable Unavailable WESTON LOBO Unavailable [address] + [place] [address] R Unavailable Unavailable Unavailable WESTON LOBO Unavailable [address] + [place] [address] R Unavailable Unavailable Unavailable Care Team Providers Name Role Phone SONNY BARRON (OD) Attending Unavailable ALESIA DE LA GARZA Referring Unavailable MARIO GARCIA Attending Unavailable GARCIAMARIO TADEO Referring Unavailable Roof, Sampson H Attending Unavailable Roof, Sampson H Referring Unavailable De La Garza, Jame Primary Care Unavailable Jesusita Ascencio PA-C Attending Unavailable De La Garza, Jame Referring Unavailable MoodispaJack piña Attending Unavailable Moodispaw Jack Referring Unavailable De La Garza, Jame Primary Care Unavailable Moodispaw Jack Attending Unavailable De La Garza, Jame [...] Garza, Jame Referring Unavailable De La Garza, Ajme Primary Care Unavailable De La Garza, Jame [...] Unavailable Cebul, Jasper Attending Unavailable Cebul, Jasper Attending Unavailable Cebul, Jasper Referring Unavailable De La Garza, Jame Primary Care Unavailable PROBLEMS PROBLEMS DATE TYPE CONDITION / CODE ATTENDING STATUS SOURCE 10/20/2018 Unknown K21.9 - Cebul Jasper Active [place] [facility] reflux disease Hospital without esophagitis Repository / K21.9(ICD-10) 10/20/2018 Unknown K44.9 - Cebul, Jasper Active [place] Diaphragmatic hernia Community without obstruction Hospital or gangrene / Repository K44.9(ICD-10) 10/20/2018 Unknown K31.7 - Polyp of Cebul Jasper Active [place] stomach and duodenum Community / K31.7(ICD-10) Hospital Repository 09/27/2018 Unknown I10 - Essential Mason Sampson Blanco Sachi Montgomery (primary) Community hypertension / Hospital I10(ICD-10) Repository 09/27/2018 Unknown I48.0 - Paroxysmal Mason Sampson Francis Active [place] atrial fibrillation Community / I48.0(ICD-10) Hospital Repository 09/27/2018 Unknown Q24.9 - Congenital RoofSampson Active [place] malformation of [facility] heart, unspecified / Hospital Q24.9(ICD-10) Repository 09/09/2018 Unknown Z79.899 - Other long Sampson Cuevas Active [place] term (current) drug Community therapy / Hospital Z79.899(ICD-10) Repository 09/01/2018 Unknown R10.9 - Unspecified CebuJasper mcdonald Active [place] abdominal pain / Community R10.9(ICD-10) Hospital Repository 08/27/2018 Unknown M85.89 - Other De La Garza, Jame Active [place] specified disorders Community of bone density and Hospital structure, multiple Repository sites / M85.89(ICD-10) 08/13/2018 Unknown S62.609A - Fracture De La Garza, Jame Active [place] of unspecified Community phalanx of Hospital unspecified finger, Repository initial encounter for closed fracture / S62.609A(ICD-10) 07/16/2018 Unknown 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, 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, Community right hand / Hospital M19.041(ICD-10) Repository 07/16/2018 Unknown M19.042 - Primary De La Garza, 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, left [facility] hand / Hospital M19.042(ICD-10) Repository 03/10/2018 Unknown I48.92 - Unspecified RoofSampson Active [place] atrial flutter / [facility] I48.92(ICD-10) Hospital Repository 03/10/2018 Unknown E78.5 - RoofSampson Active [place] Hyperlipidemia, Community unspecified / Hospital E78.5(ICD-10) Repository 03/10/2018 Unknown 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 - 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 [place] [address] OFFICE VISIT Date of Service: 12/01/18 MR#: [id number] Acct: [id number] Name: RUBEN LOBO Rep #: [id number] : 1945 Provider: Jesusita Ascencio PA-C Age/Sex: 73/F Location: [facility] Status: Signed Intake Vital Signs12/01/18 Body Mass Index (BMI) 26.4 12/01/18 Height 5 ft 12/01/18 Weight: 135 lb Intake Visit Reasons: lap belgica toupet wrpa AND lap samantha 12-08 w/ RC Chief Complaint: manometry and EGD results Seaman Officer Required: No Is patient in pain?: No Allergies No Known Allergies Allergy (Verified 12/01/18 10:55) Medications Pantoprazole Sodium [Protonix] 40 mg PO DAILY 09/02/15 [History Confirmed 12/01/18] Sertraline HCl 50 mg PO QHS 09/02/15 [History Confirmed 12/01/18] gabapentin 300 mg capsule 300 mg PO QHS 08/25/18 [History Confirmed 12/01/18] levomefolate calcium 15 mg tablet 15 mg PO DAILY 08/25/18 [History Confirmed 12/01/18] magnesium 400 mg (as magnesium oxide) tablet 400 mg PO DAILY tab 09/29/18 [History Confirmed 12/01/18] Amiodarone HCl [Cordarone] 200 mg PO DAILY 12/01/18 [History Confirmed 12/01/18] Apixaban [Eliquis] 5 mg PO BID 12/01/18 [History Confirmed 12/01/18] Diltiazem CD [Cardizem CD] 120 mg PO DAILY 12/01/18 [History Confirmed 12/01/18] Ergocalciferol (Vitamin D2) [Vitamin D2] 50,000 unit PO QWEEK 12/01/18 [History Confirmed 12/01/18] [facility] Medical History Paroxysmal atrial fibrillation (Chronic) Essential (primary) hypertension (Chronic) Esophageal hiatal hernia (Acute) Dilatation of pulmonic artery (Chronic) Daytime somnolence (Chronic) Congenital heart disease (Chronic) 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, left (Chronic) correction current use of anticoagulant (Chronic) GERD (gastroesophageal [...] safe at home: Yes HPI HPI HPI: Patient is a 73 y/o female I am following for an update history and physical for an upcoming laparoscopic Belgica. Patient denies recent hospitalizations or illnesses. She continues to note occasional reflux symptoms. Patient denies previous myocardial infarction, stroke and blood clots. She does follow with Dr. Duran for cardiology. She is currently on Eliquis for cardiac disease. Patient denies previous myocardial infarction, stroke. She denies previous complications with anesthesia. Patient's previous history per Dr. Talley: RUBEN LOBO, is a 73 F who [...] situation on August 20, 2018 at the [facility] she had a double air contrast [...] as well as rhythm control with amiodarone ROS General General: Yes fatigue; no weight [...] blood clots Neuro Neurologic: No weakness Exam Const General: cooperative, healthy appearing, comfortable, no acute distress [facility] Head: normal to inspection Eyes General: appearance normal, both eyes and all related structures Neck Neck: normal visual inspection Neck mass: No Carotids: normal carotid upstroke Chest Breast Palpation: No nipple discharge Resp Effort AND Inspection: normal respiratory effort Auscultation: clear to auscultation bilaterally Cardio Rate: regular rate Rhythm: regular rhythm Heart Sounds: murmur GI Inspection: normal to inspection Palpation: soft Auscultation: normal bowel sounds Skin General: no rashes or lesions noted Neuro General: no focal motor deficits, CN's II-XI intact bilaterally Extrem General: normal to inspection Psych Appearance: grossly normal Affect: normal affect Assessment AND Plan Problems 1. Esophageal hiatal hernia K44.9 2. Calculus of gallbladder without cholecystitis without obstruction K80.[address] Talley will plan to perform a laparoscopic Toupet procedure and laparoscopic cholecystectomy with intraoperative cholangiogram. Procedure details, risk and benefits have been reviewed. Patient has had the opportunity to ask multiple questions. She would like to proceed with the proposed procedure. She is to hold her Eliquis 2 days pre-operatively. Medications Discontinued: apixaban (Eliquis) Discontinued Reason: Order edited - Disco5 mg PO BID 180 tabs 3RF ntinuing original order Coding Level of Care Code No Charge Diagnoses Esophageal hiatal hernia K44.9 Calculus of gallbladder without cholecystitis without obstruction K80.20 Cholelithiasis location: gallbladder Cholecystitis presence: without cholecystitis Biliary obstruction: without biliary obstruction Comment Update H AND P 12/02/18 1445 <Electronically signed by Jesusita Ascencio PA-C> Date Jesusita Ascencio PA-C Cosigner Signature: Date (if applicable) CC: 12 LEAD ELECTROCARDIOGRAM Observed: 12/02/2018 Status: F Source: [place] 12:54 PM [facility] Cardiovascular Services [address] [place] [address] EKG - CAC 12/01/18 1133 MR#: [id number] Acct: [id number] Name: RUBEN LOBO Rep #: [id number] : 1945 73 From: Cory Montes MD Attending Dr: Jasper Talley MD Status: [facility] Ordering Dr: Jasper Talley MD Date: 12/01/18 Location: [facility] Sex: F C Admitted: Test Reason : Blood Pressure : / mmHG Vent. Rate : 063 BPM Atrial Rate : 063 BPM P-R Int : 178 ms QRS Dur : 082 ms QT Int : 452 ms P-R-T Axes : 034 034 086 degrees QTc Int : 462 ms Normal sinus rhythm Normal ECG Confirmed by ALEJANDRA GLOVER, CORY ([id number]), magazine editor BLANCO LUNA ([id number]) on 12/02/2018 12:54:23 PM Referred By: Jasper Talley Confirmed By:CORY MONTES MD 12/02/18 1254 Date Cory Montes MD CC: Jame De La Garza MD; Jasper Talley MD Date Dictated: 12/01/18 1133 Date Transcribed: 12/01/181132 Center Maker Hand: Signed CBC-COMPLETE BLOOD CNT Collected: 12/01/2018 Status: F Source: [place] NO DIFF 11:40 AM [facility] TYPE CODE TESTS RESULT OUT OF RANGE REFERENCE UNITS LAB L100.1000 4.4-11.0 K/mm3 Normal WBC 4.7 LAB L100.1200 4.2-5.4 M/mm3 Normal RBC 4.48 LAB L100.1300 12.0-15.0 g/dl Normal HGB 13.3 LAB L100.1400 37-47 % Normal HCT 41.7 LAB L100.1500 81-99 fL Normal MCV 93.1 LAB L100.1600 27.0-32.0 pg Normal MCH 29.7 LAB L100.1700 32-36 g/gl Low MCHC 31.9 LAB L100.1810 11.6-14.6 % Normal RDW CV 14.2 LAB L100.1820 35.1-43.9 fl High RDW SD 46.9 LAB L100.1900 150-450 K/mm3 Low PLT 127 LAB L100.2000 6.2-12.0 fl Normal MPV 11.0 Performed By: #### L100.0500 #### [facility] [address] [place], [address] BASIC METABOLIC Collected: 12/01/2018 Status: F Source: [place] PROFILE (BMP) 11:40 AM [facility] TYPE CODE TESTS RESULT OUT OF RANGE REFERENCE UNITS LAB L501.0100 74-106 mg/dL High GLU 108 Result Comment: Fasting Glucose result from 100 to 125 mg/dL suggests IMPAIRED HOMEOSTASIS per A.D.A. criteria. Please note revised GLUCOSE reference range effective 2017. LAB L501.1000 7-18 mg/dL High BUN 20 LAB L501.1100 0.55-1.02 mg/dL Normal CREAT,SERUM 0.92 Result Comment: The validity of the calculated GFR AND GFRAA in patients over 70 years has not been determined. Clinical correlation is essential. LAB L501.1110 >60 mL/min Normal EST GFR 64 Result Comment: Non- GFR Calc LAB L501.1115 >60 mL/min Normal EST GFR - AA 77 Result Comment: GFR Calc LAB L501.1255 ml/min Normal Estimated CRCL 39.12 LAB L501.1300 10-20 RATIO High BUN/CRE 21.8 LAB L501.2200 8.5-10 mg/dL Normal .1 CA 8.8 LAB L501.5300 136-14 mmol/L Normal 5 NA 142 LAB L501.5600 3.5-5. mmol/L Normal 1 K 4.1 LAB L501.5900 98-107 mmol/L Normal CL 105 LAB L501.6100 21.0-3 mmol/L Normal 2.0 CO2 30.0 LAB L501.6200 5-15 Normal GAP 7 Performed By: #### L500.2500 #### [facility] [address] [place], [address] MAGNESIUM Collected: 10/23/2018 Status: F Source: [place] 3:05 PM [facility] TYPE CODE TESTS RESULT OUT OF RANGE REFERENCE UNITS LAB L501.5200 1.6-2.6 mg/dL Normal MG 2.3 Performed By: #### L501.5200 #### [facility] [address] [place], [address] VITAMIN D,25 HYDROXY Collected: 10/23/2018 Status: F Source: [place] 3:05 PM [facility] TYPE CODE TESTS RESULT OUT OF REFERENCE UNITS RANGE LAB L506.1000 29.95-100.01 ng/mL Low Vitamin D 22.3 25-OH Result Comment: Vitamin D 25(OH) Status Range Deficiency <20 ng/mL (50nmol/L) Insuffciency 20 - 30 ng/mL (50 - 75 nmol/L) Sufficiency 30 - 100 ng/mL (75 - 250 nmol/L) Toxicity >100 ng/mL (>250 nmol/L) Performed By: #### L506.1000, L509.1000 #### [facility] [address] [place], [address] PTHIN Collected: 10/23/2018 Status: F Source: [place] 3:05 PM [facility] TYPE CODE TESTS RESULT OUT OF RANGE REFERENCE UNITS LAB L509.1000 18.4-80.1 pg/mL Normal PTHIN 52.9 Performed By: #### L506.1000, L509.1000 #### [facility] [address] [place], [place], [address] SURGERY VISIT REPORT Observed: 10/18/2018 Status: F Source: [place] 9:33 AM [facility] 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 Her previous history as noted below [id number] Name: RUBEN LOBO [facility] #:[id number] : 1945 Provider:Jasper Talley MD Age/Sex: 73/F Location:[facility] Status:Signed Intake Vital Signs 08/25/18 Height 5 [...] Intake Visit Reasons: Large herniation of stomach Seaman Officer Required: No Is patient in pain?: No [...] PO DAILY 08/25/18 [History Confirmed 08/25/18] [facility] Medical History Dilatation of pulmonic artery (Chronic) Daytime somnolence (Chronic) Congenital heart disease (Chronic) 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, left (Chronic) correction current use of anticoagulant (Chronic) HTN (hypertension) [...] situation on August 20, 2018 at the [facility] she had a double air contrast [...] normal affect Assessment AND Plan 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 Chest CT August 26, 2018: [facility] Imaging Services [address] [place] [address] Chest without Contrast MR#: [id number]:[id number] Name: RUBEN LOBO [facility] #:[id number] : 1945 73 From: Garima Booth MD PCP:Jame De La Garza MD Status:REG CLI Study:Chest without Contrast Date of Exam:08/26/18 Exam#[id number] Ordering Dr: Jame De La Garza MD [...] hiatal hernia noted. A was a 20-minute [id number] consultative appointment with the patient and her [...] AND PHYSICAL Observed: 10/07/2018 Status: F Source: [place] EXAM 4:28 PM [facility] Medical Records Department [address] [place] [address] History and Physical 10/07/18 0608 MR#: [id number] Acct: [id number] Name: RUBEN LOBO Rep #: [id number] : 1945 73 From: Jasper Talley MD PCP: Jame De La Garza MD Status: [facility] Location: EN Problem List (1) Esophageal [...] 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, left (Chronic) 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 Psychiatric History: No pertinent psych hx GOLF CADDIE History: No pertinent GOLF CADDIE history Smoking Status: Never smoker - *Family [...] (Last Updated 09/09/18 @ 07:44 by Sampson Cuevas [employer]) Esophageal hiatal hernia (Acute) Hx of CABG [...] is anticipated. Jasper Talley M.D., F.A.C.S. 10/07/18 1057 <Electronically signed by Jasper Talley MD> Date Jasper Talley MD Cosigner Signature: Date (if applicable) CC: Jame De La Garza MD; Jasper Talley MD Signed OPERATIVE REPORT - Observed: 10/07/2018 Status: F Source: [place] ENDOS[facility] 11:15 AM [facility] Medical Records Department [address] [place] [address] Operative Report - Endoscopy MR#: [id number] Acct: [id number] Name: RUBEN LOBO Rep #: [id number] : 1945 73 From: Jasper Talley MD PCP: Jame De La Garza MD Status: [facility] Patient Name: Ruben Lobo Procedure Date: 10/07/2018 [...] present medications. Procedure Code(s): --- Professional --- 08705, Esophagogastroduodenoscopy, flexible, transoral; with biopsy, single or multiple 67619, 59, Moderate sedation services provided by the same physician or other qualified health cardiac care nurse performing the diagnostic or therapeutic service that [...] reflux disease without esophagitis CPT copyright 2017 [employer]. All rights reserved. The codes documented in this report are preliminary and upon remote inpatient coder review may be revised to meet current compliance requirements. Jasper Talley MD 10/07/2018 11:15:22 AM This report has been signed electronically. Number of Addenda: 0 Note Initiated On: 10/07/2018 10:47 AM 10/07/18 1115 Date Jasper Talley MD Cosigner Signature: Date (if indicated) CC: Jame De La Garza MD; Jasper Talley MD Date Dictated: 10/07/18 1047 Date Transcribed: Center Maker Hand: SEAN Signed EGD (PICK SITE) Observed: 10/07/2018 Status: F Source: [place] 10:25 AM [facility] Patient: RUBEN LOBO : 1945 (73/F) Acct Num: [id number] Phys: Jasper Talley MD Unit Num: [id number] Loc: EN Specimen: [id number] Received: 10/07/18 - 1221 Spec Type: EGD BIOPSY TISSUES 1 TISSUES: A. Gastric mucous membrane B. POLYP C. Esophagus, NOS COMMENT A. The results of immunohistochemistry for Helicobacter pylori will be reported separately ([id number]). C. GMS stain with matched control was [...] cassette. / SJ:juan josé 10/07/18 TC:2 CPT: 10057 x3, 29246 HEADER OPERATION: EGD, PH probe (MOD) PRE-OP [...] Focal acute esophagitis. Negative for fungal organisms. AM: 10/08/18 Signed Franki [facility] 10/08/18 <signature on file> Performed By: #### PEGD #### [facility] [place], [address] IMMUNOHISTOCHEMISTRY Observed: 10/07/2018 Status: F Source: [place] 10:25 AM [facility] Patient: RUBEN LOBO : 1945 (73/F) Acct Num: [id number] Phys: Mayank GLOVER,Jasper Unit Num: [id number] Loc: EN Specimen: [id number] Received: 10/07/18 - 1358 Spec Type: IMMUNO TISSUES 1 TISSUES: A. Stomach, NOS SPECIMEN INFORMATION: Tissue Source: A - Antrum biopsy Clinical Info: GERD Specimen Number: [id number] CPT code: 68238 METHODOLOGY: Deparaffinized sections of prefer/formalin-fixed tissue or [...] developed and their performance characteristics determined by [facility]. They may not have been cleared or approved by the U.S. Food and Drug Administration. The FDA has determined that such clearance or approval is not necessary. INTERPRETATION: A. Antrum, biopsy: Negative for Helicobacter pylori organisms. AM:rg 10/08/18 PHYSICIAN AND INSTITUTION [address] [address] Signed Franki Olivier 10/08/18 <signature on file> Performed By: #### PIMM #### [facility] [address] [place] [address]. [place], [address] MAGNESIUM Collected: 09/27/2018 Status: F Source: [place] 10:13 AM [facility] TYPE CODE TESTS RESULT OUT OF RANGE REFERENCE UNITS LAB L501.5200 1.6-2.6 mg/dL Normal MG 2.2 Performed By: #### L501.5200 #### [facility] [address] [place] [address]. [place], [address] CARDIOLOGY VISIT Observed: 09/09/2018 Status: F Source: [place] REPORT 1:10 PM [facility] [place] [facility] Group [address] [place], [place] [address]e. 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 Orders Orders: 4. 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.899 Coding Level of Care Code Off vis,est,level 3 Diagnoses Congenital heart disease Q24.9 Paroxysmal atrial fibrillation I48.0 Essential (primary) hypertension I10 correction current use of 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 drug Z79.899 09/09/18 1310 <Electronically signed by Sampson STREETC> Date Sampson STREETC Cosigner Signature: Date (if applicable) CC: Jame De La Garza MD 12 LEAD EKG PERFORMED Observed: 09/09/2018 Status: F Source: [place] [facility] 9:58 AM [address] [place] [address] 12 Lead EKG performed by [facility] 09/09/18 0957 MR#: [id number] Acct: [id number] Name: RUBEN LOBO Rep #: [id number] : 1945 73 From: Sampson Cuevas NP-C Attending Dr: Sampson Cuevas NP Status: DEP AMB Ordering Dr: Sampson Cuevas Date: 09/09/18 Location: [facility] Sex: F C Admitted: [facility]/12 Lead EKG performed by [facility] ECG Report Interpretation Sinus Rhythm Nonspecific T-abnormality. ABNORMAL Electronically signed on 09/10/2018 at 17:53 by Jack Duran Software Version 8610 09/10/18 1757 Date Sampson Cuevas [employer]-C CC: Jame De La Graza MD Date Dictated: 09/09/18956 Date Transcribed: 09/09/18956 Center Maker Hand: MAYDA Signed GALLBLADDER Observed: 09/01/2018 Status: F Source: [place] 8:43 AM [facility] Imaging Services [address] [place] [address] Gallbladder MR#: [id number] Acct: [id number] Name: RUBEN LOBO Rep #: [id number] : 1945 F 73 From: Karthik Haas MD PCP: Jame De La Garza MD Status: REG CLI Study: Gallbladder Date of Exam: 09/01/18 Exam# [id number] Ordering Dr: Jasper Talley MD STUDY: ABDOMINAL [...] De La Garza MD; Jasper Talley MD Center Maker Hand: Signed DEXA BONE DENSITY Observed: 08/27/2018 Status: F Source: [place] STUDY 10:06 AM [facility] Imaging Services [address] [place] [address] Dexa Bone Density Study MR#: [id number] Acct: [id number] Name: RUBEN LOBO Rep #: [id number] : 1945 F 73 From: Jamaal Gonzales MD PCP: Jame De La Garza MD Status: [facility] CLI Study: Dexa Bone Density Study Date of Exam: 08/27/18 Exam# [id number] Ordering Dr: Jame De La Garza MD [...] Jamaal Gonzales MD at 8:35 EDT Tel [phone], Service support , CC: Jame De La Garza MD Center Maker Hand: Signed CHEST WITHOUT Observed: 08/26/2018 Status: F Source: [place] CONTRAST 8:34 AM [facility] Imaging Services [address] [place] [address] Chest without Contrast MR#: [id number] Acct: [id number] Name: RUBEN LOBO Rep #: [id number] : 1945 F 73 From: Garima Booth MD PCP: Jame De La Garza MD Status: REG CLI Study: Chest without Contrast Date of Exam: 08/26/18 Exam# [id number] Ordering Dr: Jame De La Garza MD [...] , CC: Jame De La Garza MD Center Maker Hand: Signed SURGERY VISIT REPORT Observed: 08/25/2018 Status: F Source: [place] 10:[address] [place] [address] OFFICE VISIT Date of Service: 08/25/18 MR#: [id number] Acct: [id number] Name: RUBEN LOBO Rep #: [id number] : 1945 Provider: Jasper Talley MD Age/Sex: 73/F Location: [facility] Status: Signed Intake Vital Signs08/25/18 Height 5 ft 08/25/18 Weight: 137 lb Intake Visit Reasons: Large herniation of stomach Seaman Officer Required: No Is patient in pain?: No [...] PO DAILY 08/25/18 [History Confirmed 08/25/18] [facility] Medical History Dilatation of pulmonic artery (Chronic) Daytime somnolence (Chronic) Congenital heart disease (Chronic) 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, left (Chronic) correction current use of anticoagulant (Chronic) HTN (hypertension) [...] situation on August 20, 2018 at the [facility] she had a double air contrast [...] normal affect Assessment AND Plan 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 Gastroesophageal [...] Coding Level of Care Code Comprehensive,moderate Diagnoses correction current use of anticoagulant Z79.01 Gastroesophageal reflux disease, esophagitis presence not specified K21.9 Esophagitis presence: esophagitis presence not specified New onset atrial flutter I48.92 Esophageal hiatal hernia K44.9 08/25/18 1037 <Electronically signed by Jasper Talley MD> Date Jasper Talley MD Cosigner Signature: Date (if applicable) CC: Jame De La Garza MD UPPER GI SERIES Observed: 08/20/2018 Status: F Source: [place] 10:03 AM [facility] Imaging Services [address] [place] [address] Upper GI Series Only MR#: [id number] Acct: [id number] Name: RUBEN LOBO Rep #: [id number] : 1945 F 73 From: Jasper Snow MD PCP: Jame De La Garza MD Status: REG CLI Study: Upper GI Series Only Date of Exam: 08/20/18 Exam# [id number] Ordering Dr: Jame De La Garza MD [...] , CC: Jame De La Garza MD Center Maker Hand: Signed SCREENING MAMM (CAD), Observed: 08/16/2018 Status: F Source: [place] BILAT 10:11 AM [facility] Imaging Services [address] [place] [address] SCREENING MAMM (CAD), BILAT MR#: [id number] Acct: [id number] Name: RUBEN LOBO Rep #: [id number] : 1945 F 73 From: Jasper Snow MD PCP: Jame De La Garza MD Status: REG CLI Study: SCREENING MAMM (CAD), BILAT Date of Exam: 08/16/18 Exam# [id number] Ordering Dr: Jame De La Garza MD [...] , CC: Jame De La Garza MD Center Maker Hand: Signed FINGER(S) MIN 2 VIEWS Observed: 08/13/2018 Status: F Source: [place] 10:09 AM [facility] Imaging Services [address] [place] [address] Finger(s) Min 2 Views MR#: [id number] Acct: [id number] Name: RUBEN LOBO Rep #: [id number] : 1945 F 73 From: Raven Kohler MD PCP: Jame De La Garza MD Status: REG CLI Study: Finger(s) Min 2 Views Date of Exam: 08/13/18 Exam# [id number] Ordering Dr: Jame De La Garza MD [...] , CC: Jame De La Garza MD Center Maker Hand: Signed H. PYLORI STOOL AG Collected: 07/30/2018 Status: F Source: [place] 2:56 PM [facility] TYPE CODE TESTS RESULT OUT OF RANGE REFERENCE UNITS LAB L3100.1950 Negative Normal H PYLORI Negative STL AG Result Comment: Performed at: - [facility] [id number] Control Clerk Head: Taj Ojeda MD, Phone: [phone] Performed By: #### L3100.1950 #### [facility] (refer to report for specific site) refer to report for address and phone number ESOPHAGUS ONLY Observed: 07/28/2018 Status: F Source: [place] 8:43 AM [facility] Imaging Services [address] [place] [address] Esophagus Only MR#: [id number] Acct: [id number] Name: YAMILRUBEN M Rep #: [id number] : 1945 F 73 From: Jamaal Gonzales MD PCP: Jame De La Garza MD Status: REG CLI Study: Esophagus Only Date of Exam: 07/28/18 Exam# [id number] Ordering Dr: Jame De La Garza MD [...] Jamaal Gonzales MD at 10:20 EDT Tel [phone], Service support , CC: Jame De La Garza MD Center Maker Hand: Signed COMPREHENSIVE METABOLIC Collected: 07/16/2018 Status: F Source: [place] 4:20 PM [facility] Order Comment: Order Date: 07/16/18 Order Info: 0786-1 - CMP Order Info: 45249-6 - LIPID Order Info: 3084-1 - URIC Order Info: 62858-6 - MG Order Info: 3016-3 - TSH [...] L501.9520, L506.0250, L506.0400, L503.0105, L100.0100, L501.9985 #### [facility] [address] [facility] [place], [address] LIPID PROFILE Collected: 07/16/2018 Status: F Source: [place] 4:20 PM [facility] Order Comment: Order Date: 07/16/18 Order Info: 0786-1 - CMP Order Info: 46230-6 - LIPID Order Info: 3084-1 - URIC Order Info: 12322-2 - MG Order Info: 3016-3 - TSH [...] L501.9520, L506.0250, L506.0400, L503.0105, L100.0100, L501.9985 #### [facility] [address] [facility] [place], [address] URIC ACID Collected: 07/16/2018 Status: F Source: [place] 4:20 PM [facility] Order Comment: Order Date: 07/16/18 Order Info: 0786-1 - CMP Order Info: 83795-6 - LIPID Order Info: 3084-1 - URIC Order Info: 85758-6 - MG Order Info: 3016-3 - TSH [...] L501.9520, L506.0250, L506.0400, L503.0105, L100.0100, L501.9985 #### [facility] [address] [place], [place], [address] MAGNESIUM Collected: 07/16/2018 Status: F Source: [place] 4:20 PM [facility] Order Comment: Order Date: 07/16/18 Order Info: 0786-1 - CMP Order Info: 60710-4 - LIPID Order Info: 3084-1 - URIC Order Info: 78702-2 - MG Order Info: 3015-3 - TSH Order Info: 8 - FOLS Order Info: 3023-7 - T4F Is Patient Taking Vitamins or Folic Acid Supplements? N TYPE CODE TESTS RESULT OUT OF RANGE REFERENCE UNITS LAB L501.5200 1.6-2.6 mg/dL Normal MG 2.3 Performed By: #### L500.4050, L500.4100, L501.1400, L501.5200, L501.9520, L506.0250, L506.0400, L503.0105, L100.0100, L501.9985 #### [facility] [address] [facility] [place], [place], [address] THYROID STIM HORMONE Collected: 07/16/2018 Status: F Source: [place] (TSH) 4:20 PM [facility] Order Comment: Order Date: 07/16/18 Order Info: 0786-1 - CMP Order Info: 94356-4 - LIPID Order Info: 308-1 - URIC Order Info: 72817-5 - MG Order Info: 3 - TSH Order Info: 8 - FOLS Order Info: 7 - T4F Is Patient Taking Vitamins or Folic Acid Supplements? N TYPE CODE TESTS RESULT OUT OF RANGE REFERENCE UNITS LAB L501.9520 0.358-3.74 uIU/mL Normal TSH 1.03 Performed By: #### L500.4050, L500.4100, L501.1400, L501.5200, L501.9520, L506.0250, L506.0400, L503.0105, L100.0100, L501.9985 #### [facility] [address] [place], [place], [address] FOLATES, (FOLIC ACID) Collected: 07/16/2018 Status: F Source: [place] 4:20 PM [facility] Order Comment: Order Date: 07/16/18 Order Info: 0786-1 - CMP Order Info: 80293-5 - LIPID Order Info: 308- - URIC Order Info: 30707-7 - MG Order Info: 3 - TSH Order Info: 8 - FOLS Order Info: 7 - T4F Is Patient Taking Vitamins or Folic Acid Supplements? N TYPE CODE TESTS RESULT OUT OF RANGE REFERENCE UNITS LAB L506.0250 3.1-55.4 ng/mL Normal FOLATES 17.90 Performed By: #### L500.4050, L500.4100, L501.1400, L501.5200, L501.9520, L506.0250, L506.0400, L503.0105, L100.0100, L501.9985 #### [facility] [address] [place], [place], [address] T4 FREE DIRECT Collected: 07/16/2018 Status: F Source: [place] 4:20 PM [facility] Order Comment: Order Date: 07/16/18 Order Info: 0786-1 - CMP Order Info: 04561-1 - LIPID Order Info: 3083-11 - URIC Order Info: 30425-7 - MG Order Info: 3016-01 - TSH Order Info: 8 - FOLS Order Info: 7 - T4F Is Patient Taking Vitamins or Folic Acid Supplements? N TYPE CODE TESTS RESULT OUT OF REFERENCE UNITS RANGE LAB L506.0400 0.76-1.46 ng/dL High T4 FREE 1.53 DIRECT Performed By: #### L500.4050, L500.4100, L501.1400, L501.5200, L501.9520, L506.0250, L506.0400, L503.0105, L100.0100, L501.9985 #### [facility] [address] [place], [place], [address] VITAMIN B12 Collected: 07/16/2018 Status: F Source: [place] 4:20 PM [facility] Order Comment: Order Date: 07/16/18 Order Info: 2132-9 - B12 TYPE CODE TESTS RESULT OUT OF RANGE REFERENCE UNITS LAB L503.0105 211-911 pg/mL Normal Vitamin B12 577 Performed By: #### L500.4050, L500.4100, L501.1400, L501.5200, L501.9520, L506.0250, L506.0400, L503.0105, L100.0100, L501.9985 #### [facility] [place], [address] CBC W/DIFF, AUTOMATED Collected: 07/16/2018 Status: F Source: [place] 4:20 PM [facility] Order Comment: Order Date: 07/16/18 Order [...] L501.9520, L506.0250, L506.0400, L503.0105, L100.0100, L501.9985 #### [facility] [address] [place], [place], [address] HEMOGLOBIN A1C Collected: 07/16/2018 Status: F Source: [place] 4:20 PM [facility] Order Comment: Order Date: 07/16/18 Order Info: 4548-4 - A1C TYPE CODE TESTS RESULT OUT OF RANGE REFERENCE UNITS LAB L501.9985 4.2-6.3 % Normal HGB A1C 6.1 Performed By: #### L500.4050, L500.4100, L501.1400, L501.5200, L501.9520, L506.0250, L506.0400, L503.0105, L100.0100, L501.9985 #### [facility] [address] [facility] [place], [place], [address] H. PYLORI ANTIBODY Collected: 07/16/2018 Status: F Source: [place] (IGG) 4:20 PM [facility] TYPE CODE TESTS RESULT OUT OF RANGE REFERENCE UNITS LAB L3100.1900 0.00-0.79 Normal H.PYLORI 0.67 862904 Result Comment: Result Units: Index Value Negative <0.80 Equivocal 0.80 - 0.89 Positive >0.89 Performed at: [facility] [id number] Control Clerk Head: Marcelo Willard PhD, Phone: [phone] Performed By: #### L3100.1900 #### [facility] (refer to report for specific site) refer to report for address and phone number HAND MIN 3 VIEWS Observed: 07/16/2018 Status: F Source: [place] 4:19 PM [facility] [place] [address] Hand Min 3 Views MR#: [id number] Acct: [id number] Name: RUBEN LOBO Rep #: [id number] : 1945 F 73 From: Kimani Jiménez MD PCP: Jame De La Garza MD Status: REG CLI Study: Hand Min 3 Views Date of Exam: 07/16/18 Exam# [id number] Ordering Dr: Jame De La Garza MD [...] , CC: Jame De La Garza MD Center Maker Hand: Signed PROGRESS Observed: 06/03/2018 Status: COMPLETED Source: [place] 3:25 PM [facility] REPOSITORY HNO ID: [id number] Author: Mario Garcia Service: (none) Author Type: Physician Type: Progress [...] Manage care with primary care physician. Mario Garcia MD I have confirmed and edited as [...] options. PROGRESS Observed: 05/13/2018 Status: COMPLETED Source: [place] 2:04 PM [facility] REPOSITORY HNO ID: [id number] Author: Mario Garcia Service: (none) Author Type: Physician Type: Progress [...] Continue care with primary care physician Mario Garcia MD I have confirmed and edited as [...] PULMONARY FUNCTION Observed: 03/28/2018 Status: F Source: [place] REPORT COMP 2:44 PM [facility] Pulmonary Services/Neurology [address] [place] [address] MR#: [id number] Acct: [id number] Name: RUBEN LOBO Rep #: [id number] : 1945 73 From: Doug Brewer MD Referring Dr: Sampson Cuevas NP Status: REG CLI Ordering Dr: Date: Location: [facility] Sex: F C COMPLETE PULMONARY FUNCTION TEST INTERPRETATION Brief HPI: Patient is a 73 year old female, currently under the care of Sampson Cuevas, who presents to [facility] for complete pulmonary function tests secondary [...] been improvement compared to previous testing 03/28/18 1444 <Electronically signed by Doug Brewer MD> Date Doug Brewer MD CC: BRYAN Cuevas; Doug Brewer MD; Jame De La Garza MD Date Dictated: 03/28/181440 Date Transcribed: 03/28/181440 Center Maker Hand: CELY Signed CARDIOLOGY VISIT Observed: 03/10/2018 Status: F Source: [place] REPORT 1:05 PM [facility] [address] [facility] [place] [address] OFFICE VISIT Date of Service: 03/10/18 MR#: [id number] Acct: [id number] Name: RUBEN LOBO Rep #: [id number] : 1945 Provider: BRYAN Cuevas Age/Sex: 72/F Location: [facility] Status: Signed HPI HPI Details: RUBEN LOBO, [...] Pressure 126/62 Intake Visit Reasons: 6 M Seaman Officer Required: No Accompanied by: Is patient in [...] heart disease (Chronic) 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, left (Chronic) correction current use of anticoagulant (Chronic) HTN (hypertension) [...] medication. 4. H/O atrial septal defect repair Z87. Plan MARYJO from April 2016 showed ASD repair with color-flow Doppler evidence compatible with 2 very small areas of residual left to right intra-atrial shunt. Patient denies any changing or worsening shortness of breath. We will continue to monitor this through history, exam, and repeat echocardiogram as needed. Orders Orders: 5. 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.899 Hypomagnesemia E83.42 Coding Level of Care Code Off vis,est,level 3 Diagnoses Paroxysmal atrial fibrillation I48.0 Essential hypertension I10 Hypertension type: essential hypertension Pure hypercholesterolemia E78.00; E78.0 Hyperlipidemia type: pure hypercholesterolemia H/O atrial septal defect repair Z87.74 correction current use of 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 drug Z79.899 Hypomagnesemia E83.42 03/10/18 1305 <Electronically signed by Sampson RUCKER> Date Sampson RUCKER Cosigner Signature: Date (if applicable) CC: Jame De La Garza MD LIVER PROFILE Collected: 03/10/2018 Status: F Source: [place] 11:05 [facility] REPOSITORY TYPE CODE TESTS RESULT OUT OF [...] By: #### L500.3400, L501.5200, L501.9520, L506.0400 #### [facility] [address] [place], [place], [address] MAGNESIUM Collected: 03/10/2018 Status: F Source: [place] 11:05 [facility] REPOSITORY TYPE CODE TESTS RESULT OUT OF RANGE REFERENCE UNITS LAB L501.5200 1.6-2.6 mg/dL Normal MG 2.3 Performed By: #### L500.3400, L501.5200, L501.9520, L506.0400 #### [facility] [address] [place], [address] THYROID STIM HORMONE Collected: 03/10/2018 Status: F Source: [place] (TSH) 11:05 AM [facility] TYPE CODE TESTS RESULT OUT OF RANGE REFERENCE UNITS LAB L501.9520 0.358-3.74 uIU/mL Normal TSH 1.16 Performed By: #### L500.3400, L501.5200, L501.9520, L506.0400 #### [facility] [address] [place], [address] T4 FREE DIRECT Collected: 03/10/2018 Status: F Source: [place] 11:05 AM [facility] TYPE CODE TESTS RESULT OUT OF RANGE REFERENCE UNITS LAB L506.0400 0.76-1.46 ng/dL Normal T4 FREE 1.37 DIRECT Performed By: #### L500.3400, L501.5200, L501.9520, L506.0400 #### [facility] [address] [place], [address] 12 LEAD EKG PERFORMED Observed: 03/10/2018 Status: F Source: [place] [facility] 9:57 AM [facility] [address] [place] [address] 12 Lead EKG performed by [facility] 03/10/18 0956 MR#: [id number] Acct: [id number] Name: RUBEN LOBO Andres Rep #: [id number] : 1945 72 From: Sampson Cuevas [employer]-C Attending Dr: Sampson Cuevas NP Status: REG AMB Ordering Dr: Sampson Cuevas [employer]-C Date: 03/10/18 [place]: [facility] Sex: F C Admitted: [facility]/12 Lead EKG performed by [facility] ECG Report Interpretation Sinus Rhythm Electronically signed on 03/10/2018 at 10:32 by Jack Duran 03/10/18 1033 Date Sampson RUCKER CC: Jame De La Garza MD Date Dictated: 03/10/18955 Date Transcribed: 03/10/18955 Center Maker Hand: MAYDA Signed ALLERGIES ALLERGIES DATE TYPE / CODE NAME / CODE REACTION SEVERITY SOURCE 12/01/2018 Drug No Known Unknown [facility] Allergy/416 Allergies/C02617 Hospital 328783(SNOM 0388(RXNORM) Repository ED CT) Drug NO KNOWN [place] Class/96251 ALLERGIES Main [place] 1003(SNOMED Repository CT) ENCOUNTERS ENCOUNTERS ADMIT/DISCHARGE ACCOUNT ADMITTING ENCOUNTER LOCATION SOURCE NUMBER CLASS 12/08/2018 [id number] [facility] ing[facility]C Repository 12/01/2018/12/01/19 [id number] Ambulatory BMSBuilding:B [place] [facility] Repository 10/23/2018 [id number] Ambulatory [facility] Hospital ing:MTLAB Repository 10/18/2018/10/18/20 [id number] Ambulatory BMSBuilding:B [place] [address] [facility] Repository 10/07/2018/10/07/20 [id number] Ambulatory [address] Hospital ing:ENRoom: Repository [facility] 10/07/2018/10/07/20 [id number] Ambulatory BMSBuilding:B [place] [address] [facility] Repository 09/27/2018 [id number] Ambulatory [facility] Hospital ing:LAB Repository 09/10/2018/09/10/20 [id number] [address] [facility]:EN Repository 09/10/2018/09/10/20 [id number] Ambulatory BMSBuilding:B [place] [address] [facility] Repository 09/09/2018/09/09/20 [id number] Ambulatory BMSBuilding:B [place] [address] [facility] Repository 09/01/2018 [id number] [facility] ing:US Repository 08/27/2018 [id number] Ambulatory [facility] Hospital ing:OPBD Repository 08/26/2018 [id number] Ambulatory [facility] ing:CT Repository 08/25/2018/08/25/20 [id number] Ambulatory BMSBuilding:B [place] [facility] Repository 08/20/2018 [id number] Ambulatory [facility] ing:RAD Repository 08/16/2018 [id number] Ambulatory [facility] ing:OPBI Repository 08/13/2018 [id number] Ambulatory [facility] Hospital ing:MTRAD Repository 07/30/2018 [id number] Ambulatory [facility] Hospital ing:LABSPEC Repository 07/28/2018 [id number] Ambulatory [facility] ing:RAD Repository 07/16/2018 [id number] Ambulatory [facility] ing:MTLAB Repository 06/03/2018/06/04/20 [id number] Ambulatory [address] Repository 05/13/2018/05/15/20 [id number] Ambulatory [address] Repository 03/28/2018 [id number] Ambulatory [facility] Hospital ing:PSN Repository 03/28/2018 [id number] Ambulatory BMSBuilding:W [place] [facility] Repository 03/10/2018 [id number] Ambulatory [facility] Hospital ing:LAB Repository 03/10/2018/03/10/20 [id number] Ambulatory BMSBuilding:B [place] [address] [place] [facility] Repository 03/04/2018 [id number] Ambulatory BMS [facility] Repository 02/27/2018 [id number] Ambulatory BMSBuilding:B [place] MS.[facility] Repository 02/24/2018 [id number] Ambulatory BMSBuilding:B Valentina MS.[facility] Repository 12/13/2017 [id number] Ambulatory [facility] HospitalBuild Hospital ing:LAB Repository PAYERS PAYERS ENCOUNTER GUARANTOR PAYER SUBSCRIBER SOURCE 12/08/2018 RUBEN Campos Primary RUBEN [place] [id number] S Insurance:HUMANA HERMANDOB: Community [employer] [employer] PPOPolicy [id number] Number: Repository [address]Vyg: (330 [id number] [phone] (HP) Date:7577-47-89JQ [address] [address]PB: 12/08/2018 Secondary NOT GIVENUNK Valentina Insurance:SELF PAY [facility] Number: Effective Repository Date:2018-11-07 12/01/2018 RUBEN Campos Primary RUBEN [place] [id number] S Insurance:HUMANA HERMANDOB: Community [employer] [employer] PPOPolicy [id number] Number: Repository [address]Qhm: 330 [id number] [phone] () Date:4151-80-65JP [address] [address]TI: 12/01/2018 Secondary NOT GIVENUNK [place] Insurance:SELF PAY [facility] Number: Effective Repository Date:2018-11-28 10/23/2018 RUBEN Campos Primary RUBEN Montgomery [id number] Insurance:HUMANA HERMANDOB: Community [facility] [facility] [id number] Number: Repository [address]Byz: (330 [id number] [phone]) Date:3276-63-56FF [address] [address]SH: 10/23/2018 Secondary NOT GIVENUNK [place] Insurance:SELF PAY [facility] Number: Effective Repository Date:2018-10-23 10/18/2018 RUBEN Campos Primary RUBEN Montgomery [id number] Insurance:HUMANA HERMANDOB: Community [facility] [id number] [place] Number: Repository [address]Vgr: 330 [id number] [phone] (HP) Date:9267-32-60WG [address] [place] [address]LC: 10/18/2018 Secondary NOT GIVENUNK [place] Insurance:SELF PAY [facility] Number: Effective Repository Date:2018-10-18 10/07/2018 RUBEN Campos [place] [id number] Insurance:HUMANA HERMANDOB: Community [facility] [id number], [place] Number: Repository [address]Qrt: (330 [id number] [phone] (HP) Date:4324-93-07DD [address] [address]AE: 10/07/2018 Secondary NOT GIVENUNK [place] Insurance:SELF PAY [facility] Number: Effective Repository Date:2018-09-19 10/07/2018 RUBEN Campos [place] [id number] Insurance:HUMANA HERMANDOB: Community [facility] [id number] [place] Number: Repository [address]Inw: 330 [id number] [phone] (HP) Date:5070-53-77BZ [address] [address]KC: 10/07/2018 Secondary NOT GIVENUNK [place] Insurance:SELF PAY [facility] Number: Effective Repository Date:2018-10-07 09/27/2018 RUBEN Campos Valentina [id number] Insurance:HUMANA HERMANDOB: Community [facility] [id number] [place] Number: Repository [address]Oui: 330 [id number] [phone] (HP) Date:6424-86-50JM [address] [address]YU: 09/27/2018 Secondary NOT GIVENUNK Valentina Insurance:SELF PAY [facility] Number: Effective Repository Date:2018-09-27 09/10/2018 RUBEN Campos Primary RUBEN Campos [place]ina [id number] Insurance:HUMANA HERMANDOB: Community [place] [employer]ARE [id number] [place] Number[place] Repository [phone]: (330 [id number] [phone] (HP) Date:2098-71-60KV [address] [address]ZZ: 09/10/2018 Secondary NOT GIVENUNK [place] Insurance:SELF PAY [facility] Number: Effective Repository Date:2018-08-27 09/10/2018 RUBEN Campos Primary RUBEN Campos [place] [id number] Insurance:HUMANA HERMANDOB: Community [facility] [id number] [facility] Number[place] Repository [phone]: (330 [id number] [phone] (HP) Date:0939-42-37DS [address] [address]IN: 09/10/2018 Secondary NOT GIVENUNK Valentina Insurance:SELF PAY [facility] Number: Effective Repository Date:2018-09-10 09/09/2018 RUBEN Campos Primary RUBEN Campos [place] [id number] Insurance:HUMANA HERMANDOB: Community [facility] [id number] [facility] Number[place] Repository [address]Nmb: (330 [id number] [phone] (HP) Date:9207-28-72OF [address] [address]QG: 09/09/2018 Secondary NOT GIVENUNK [place] Insurance:SELF PAY [facility] Number: Effective Repository Date:2018-09-09 09/01/2018 RUBEN Campos Primary RUBEN Campos Valentina [id number] Insurance:HUMANA HERMANDOB: Community [facility] [id number] [facility] Number[place] Repository [address]Esf: 330 [id number] [phone] (HP) Date:1982-25-76KM [address] [address]QA: 09/01/2018 Secondary NOT GIVENUNK [place] Insurance:SELF PAY [facility]: Effective Repository Date:2018-08-28 08/27/2018 RUBEN Campos Valentina [id number] Insurance:HUMANA HERMANDOB: Community [place] [facility]ARE [facility] [id number] [facility] Number: Repository [address]Tps: 330 [id number] [phone] () Date:9001-01-31NJ [address] [address]CB: 08/27/2018 Secondary NOT GIVENUNK Valentina Insurance:SELF PAY [facility] Number: Effective Repository Date:2018-08-15 08/26/2018 [place] Campos [place] [id number] Insurance:HUMANA HERMANDOB: Community [facility] [id number] [place] [address], [place]: Repository [address]Xvs: 330 [id number] [phone] (HP) Date:9043-16-13GT [address] [address]PE: 08/26/2018 Secondary NOT GIVENUNK [place] Insurance:SELF PAY [facility] Number: Effective Repository Date:2018-08-18 08/25/2018 RUBEN Campos Valentina [id number] Insurance:HUMANA HERMANDOB: Community [facility] [id number] Women[facility] Number: Repository [address]Wdr: (330 [id number] [phone] () Date:7226-03-85EI [address] [address]YA: 08/25/2018 Secondary NOT GIVENUNK [place] Insurance:SELF PAY [facility] Number: Effective Repository Date:2018-08-25 08/20/2018 [place] Campos Valentina [id number] Insurance:HUMANA HERMANDOB: Community [facility] [id number] Women[facility] Number[place] Repository [address]Bqg: (076 [id number] [phone] (HP) Date:7113-16-11HM [address] [address]DS: 08/20/2018 Secondary NOT GIVENUNK Valentina Insurance:SELF PAY [facility] Number: Effective Repository Date:2018-08-14 08/16/2018 [place] Bunch [facility] RUBEN Campos Valentina [id number] Insurance:HUMANA HERMANDOB: Community [employer] MEDICARE PPOPolic [id number], [place] Number: Repository [phone]: (330 [id number] [phone] (HP) Date:8320-44-94CD [address] [address]RY: 08/16/2018 Secondary NOT GIVENUNK Valentina Insurance:SELF PAY [facility] Number: Effective Repository Date:2018-07-21 08/13/2018 [place] Bunch [facility] RUBEN Campos Valentina [id number] Insurance:HUMANA HERMANDOB: Community [employer]ARE PPOPolicy [id number] [place] [address], [place]: Repository [address]Dnu: 330 [id number] [phone] Date:3460-98-50ST [address] [address]XA: 08/13/2018 Secondary NOT GIVENUNK Valentina Insurance:SELF PAY [facility] Number: Effective Repository Date:2018-08-13 07/30/2018 [place] B[facility] RUBEN Campos Valentina [id number] Insurance:HUMANA HERMANDOB: Community [employer] PPOPolicy [id number] [facility] Number: Repository [address]Iko: 330 [id number] [phone] (HP) Date:5633-12-71CB [address] [address]SC: 07/30/2018 Secondary NOT GIVENUNK Valentina Insurance:SELF PAY [facility] Number: Effective Repository Date:2018-07-30 07/28/2018 [place] Alivia Rubi [place] [id number] Insurance:HUMANA HERMANDOB: Community [employer] MEDICARE PPOPoly [id number] Women[facility], [place] Number[place] Repository [address]Tco: 330 [id number] [phone] (HP) Date:3038-11-98WM [address] [place] [address]WG: 07/28/2018 Secondary NOT GIVENUNK Valentina Insurance:SELF PAY [facility] Number: Effective Repository Date:2018-07-22 07/16/2018 [place] Bunch Primary RUBEN [place] [id number] Insurance:HUMANA HERMANDOB: Community [facility] [id number] Women[facility] Number[place] Repository [address]Vor: 330 [id number] [phone] (HP) Date:5078-34-42NE [address] [address]SM: 07/16/2018 Secondary NOT GIVENUNK [place] Insurance:SELF PAY [facility] Number: Effective Repository Date:2018-07-16 03/28/2018 [place] Bunch Primary RUBEN Montgomery [id number] Insurance:HUMANA HERMANDOB: Community [facility] [id number] Women[facility], [place] Number: Repository [address]Vaf: [id number] [phone] Date:7723-61-78HM [address] (HP) [address] [place] [address]AR: 03/28/2018 Secondary NOT GIVENUNK [place] Insurance:SELF PAY [facility] Number: Effective Repository Date:2018-03-10 03/28/2018 [place] [id number] Insurance:HUMANA HERMANDOB: Community [facility] [id number] Women[facility] Number: Repository [address]Psc: [id number] [phone] Date:7047-93-22CV [address] (HP) [address] [place] [address]QW: 03/28/2018 Secondary NOT GIVENUNK [place] Insurance:SELF PAY [facility] Number: Effective Repository Date:2018-03-28 03/10/2018 [place] Campos Valentina [id number] Insurance:HUMANA HERMANDOB: Community [employer] MED[employer]ARE PPOPolicy [id number] Women's [facility], [place] Number: Repository [address]Geu: [id number] [phone] Date:3419-53-63PA [address] (HP) [address] [place] [address]AN: 03/10/2018 Secondary NOT GIVENUNK [place] Insurance:SELF PAY [facility] Number: Effective Repository Date:2018-03-10 03/10/2018 [place] B[facility] RUBEN Campos Valentina [id number] Insurance:HUMANA HERMANDOB: Community [employer] MEDICARE PPOPoly [id number] Women's [facility], [place] Number: Repository [address]Iyf: [id number] [phone] Date:3179-46-92FI [address] () [id number] [place] [address]BI: 03/10/2018 Secondary NOT GIVENUNK Valentina Insurance:SELF PAY [facility] Number: Effective Repository Date:2018-03-10 03/04/2018 [place] Campos Valentina [id number] Insurance:HUMANA HERMANDOB: Community [employer]ARE PPOPolicy [id number] Women's [facility], [place] Number: Repository [address]Fnu: [id number] [phone] Date:3504-33-09YB [address] () [id number] [place] [address]GE: 03/04/2018 Secondary NOT GIVENUNK [place] Insurance:SELF PAY [facility] Number: Effective Repository Date:2018-03-04 02/27/2018 [place] Campos Valentina [id number] Insurance:HUMANA HERMANDOB: Community [employer]ARE PPOPolicy [id number] Women[facility] Number[place] Repository [address]Vqh: [id number] [phone] Date:2420-53-89QO [address] (HP) [id number] [place] [address]ZE: 02/27/2018 Secondary NOT GIVENUNK [place] Insurance:SELF PAY [facility] Number: Effective Repository Date:2018-02-27 02/24/[address] [facility] RUBEN Campos Valentina [id number] Insurance:ANTHEM HERMANDOB: Community [facility]ICARE [facility] [id number] Women's [facility] Number: Repository [address]Rnb: [id number] [phone] Date:0314-64-95OQ [address] () [address]80766JYXPBMV, [place] [address]AL: 02/24/2018 Secondary NOT GIVENUNK Valentina Insurance:SELF PAY [facility] Number: Effective Repository Date:2017-10-28 12/13/2017 [place] [facility] Valentina [id number] Insurance:HUMANA HERMANDOB: Community [facility] [id number] Women[facility] Number: Repository [id number]: [id number] [phone] Date:6336-87-20YI [address] () [id number] [place] [address]AE: 12/13/2017 Secondary NOT GIVENUNK Valentina Insurance:SELF PAY [facility] Number: Effective Repository Date:2017-12-13
== END ==
PROVIDERS: Family Provider Family Medicine; PCP Family Medicine; Referring Provider Nurse Practitioner Family; Visit Provider Nurse Practitioner Family
DX: M81.0 Age-related osteoporosis without current pathological fracture (principal); I10 Essential (primary) hypertension; I48.0 Paroxysmal atrial fibrillation; Z95.1 Presence of aortocoronary bypass graft
CPT/HCPCS: 36415; 82306; 83735; 83970

== ENCOUNTER 2018-12-08 11:24 | Observation (INO) | payer MEDICARE, SELFPAY ==
[2018-10-18 08:30] VITALS: BMI 26.4
[2018-12-01 10:05] VITALS: BMI 26.4
[2018-12-01 11:03] VITALS: BP 137/74; PULSE 64; RESP 17; TEMP 36.9; O2SAT 97; BMI 26.2
--- NOTE | 2018-12-01 11:26 | SDCEKG_ITS ---
Test Reason : Blood Pressure : / mmHG Vent. Rate : 063 BPM Atrial Rate : 063 BPM P-R Int : 178 ms QRS Dur : 082 ms QT Int : 452 ms P-R-T Axes : 034 034 086 degrees QTc Int : 462 ms Normal sinus rhythm Normal ECG Confirmed by ALEJANDRA GLOVER, LUKAS ([id number]), technical writer and editor BLANCO LUNA ([id number]) on 12/02/2018 12:54:23 PM Referred By: Jaspre Talley Confirmed By:LUKAS ROBERTS MD
[2018-12-01 11:53] LABS: Hematocrit 41.7 % (37-47); Hemoglobin 13.3 g/dl (12.0-15.0); Mean Corp Hgb Conc 31.9 g/gl (32-36); Mean Corpuscular Hgb 29.7 pg (27.0-32.0); Mean Corpuscular Volume 93.1 fL (81-99); Platelet Count 127 K/mm3 (150-450); RBC Distribution Width CV 14.2 % (11.6-14.6); RBC Distribution Width SD 46.9 fl (35.1-43.9); Red Blood Count 4.48 M/mm3 (4.2-5.4); White Blood Count 4.7 K/mm3 (4.4-11.0)
[2018-12-01 11:54] LABS: Scan Indicated on CBC? Y/N NO
[2018-12-01 12:14] LABS: Anion Gap 7 (5-15); BUN 20 mg/dL (7-18); BUN/Creat Ratio 21.8 RATIO (10-20); Calcium,Total 8.8 mg/dL (8.5-10.1); Chloride 105 mmol/L (98-107); Creatinine, Serum 0.92 mg/dL (0.55-1.02); EST Glomerular Filtration Rate 64 mL/min (>60); Est Glom Filt Rate - Afr Amer 77 mL/min (>60); Estimated Creatinine Clearance 39.12 ml/min; Glucose 108 mg/dL (74-106); Potassium 4.1 mmol/L (3.5-5.1); Sodium Level 142 mmol/L (136-145)
[2018-12-08] VITALS (14 sets, daily range): BP systolic 115–154; BP diastolic 63–86; PULSE 67–78; RESP 16–18; TEMP 36.3–37.1; O2SAT 87–100; BMI 26.2; BMI 25.6
--- NOTE | 2018-12-08 | GALL_PTH ---
PATIENT: RUBEN LOBO LOC: MS2 U#:[id number] AGE/SX: 73/F ROOM: MS211 RE12/08/[address]: Dr. Jasper Talley MD : 1945 BED: 1 DIS: 12/10/2018 SPEC #: [id number] RECD: 12/08/18 14:27 STATUS: NAKIA REAdolfo #: [id number] KATHY: 12/08/18 00:[address]: Jasper Talley DEPT: SURGICAL PATHOLOGY RECD BY: Tommie Mcfarland ENTERED: 12/08/18 14:27 SP TYPE: BOAZ WASHBURN DR: Dr. Jame De La Garza MD Tissues: Gallbladder, NOS Procedures: Surgery Specimen Level III HEADER OPERATION: Laparoscopic Himanshu fundoplication with Toupet wrap; laparoscopic cholecystectomy PRE-OP DIAGNOSIS: Esophageal hiatal hernia; calculus of gallbladder without cholecystitis or obstruction TISSUE SUBMITTED: Gallbladder MICROSCOPIC DIAGNOSIS Gallbladder, cholecystectomy: Chronic cholecystitis and cholelithiasis. AM:juan josé 12/09/18 MICROSCOPIC DESCRIPTION Slides are reviewed. GROSS DESCRIPTION Received is one container labeled with the patient's name and designated gallbladder. The specimen consists of a gallbladder measuring 7.8 x 3 x 2.8 cm. The external surface is smooth and glistening. Focally, it is granular, hemorrhagic and contains cautery artifact. The lumen of the gallbladder contains yellow-green mucoid bile and one black calculus measuring 0.3 x 0.2 x 0.1 cm. The mucosa is bile-stained and without any mass lesions. The gallbladder wall averages 0.2 cm in thickness and is free of mass lesions. Patcher Wood Welder sections of the gallbladder and the cystic duct are submitted in one cassette. / AM:juan josé 12/08/18 TC:3 CPT: 24800
[2018-12-08] MEDS: Cefazolin 2 GM in 0.9% Normal Saline 100 ML IV (07:19)
--- NOTE | 2018-12-08 07:22 | DCINST_ITS ---
Addendum entered and electronically signed by Jesusita Ascencio PA-C 12/10/18 13:13: Patient will need to make an appointment with Dr. Talley in 1 week in the office for a follow-up. Original Note: <Jasper Talley - Last Filed: 12/08/18 07:21> Discharge Diet: Light diet - advance as tolerated - if you have questions about your diet instructions, please talk to you doctor. Discharge Activity: May Not Drive - for 3-5 days or while taking narcotic pain medicine. May shower in (days): 1 Lifting Restrictions: 10 pounds Call your doctor if your incision/area has: Continuous Slow Oozing, Sudden Increased Bleeding, Increased Pain/ Swelling, Increased Redness, Foul Smelling Discharge Call your doctor if you observe: Fever of 101 or Higher Suture Line Care: Avoid Pulling/Pushing, Avoid Pinching/Bending Additional Dressing/Incision Instructions:: Change or remove dressing in 3 days. Leave steri-strips in place for 1 week. Allergies/Adverse Reactions: Allergies No Known Allergies Allergy (Verified 12/01/18 10:55) Medications to take at Discharge Pantoprazole Sodium [Protonix] 40 mg PO DAILY 09/02/15 Sertraline HCl 50 mg PO QHS 09/02/15 gabapentin 300 mg capsule 300 mg PO QHS 08/25/18 levomefolate calcium 15 mg tablet 15 mg PO DAILY 08/25/18 magnesium 400 mg (as magnesium oxide) tablet 400 mg PO DAILY tab 09/29/18 Amiodarone HCl [Cordarone] 200 mg PO DAILY 12/01/18 Apixaban [Eliquis] 5 mg PO BID 12/01/18 Diltiazem CD [Cardizem CD] 120 mg PO DAILY 12/01/18 Ergocalciferol (Vitamin D2) [Vitamin D2] 50,000 unit PO QWEEK 12/01/18 Hydrocodone Bitart/Apap 5-325 [[place] 5MG-325MG] 1 tablet PO Q6H PRN PRN 3 Days #8 tablet 12/08/18 The following prescriptions were given: Hydrocodone Bitart/Apap 5-325 [[place] 5MG-325MG] 1 tablet PO Q6H PRN PRN 3 Days #8 tablet PRN Reason: Pain Primary Care Physician: Jame De La Garza MD [Primary Care Provider] - Test Results: Test results from this visit will be discussed in further detail at your follow- up appointment, if applicable. Please Follow Up With: Jasper Talley MD - [phone] When: Call to make an appointment to be seen in about 10 days. <Jesusita Ascencio - Last Filed: 12/09/18 07:45> Test Results: Test results from this visit will be discussed in further detail at your follow- up appointment, if applicable.
[2018-12-08] MEDS: Bupivacaine Mpf 0.5% 30 ML VIAL (11:25)
--- NOTE | 2018-12-08 11:28 | PCM.OPRPT ---
Problem List (1) GERD (gastroesophageal reflux disease) Status: Chronic Qualifiers: (2) Chronic cholecystitis with calculus Status: Chronic Report of Operation Date of Procedure: 12/08/18 Pre-Operative Diagnosis: Intractable gastroesophageal reflux disease. Chronic cholecystitis cholelithiasis. Moderately large hiatal hernia Post-Operative Diagnosis: Same Surgery/Procedure Performed:: Laparoscopic repair of hiatal hernia with toupet procedure. Esophagogastroduodenoscopy. Laparoscopic cholecystectomy Description of Surgical Findings:: Timeout and informed consent was obtained. 73 taken the operating placement table underwent general endotracheal intubation anesthesia. Ancef 2 g given intravenously preoperatively. The abdomen was sterilely prepped draped. Ioban drape was used to facilitate drape placement. 0.5% Marcaine was used as a local anesthetic throughout. Skin sites were pre-anesthetized. To the right and slightly superior to the umbilicus local was instilled following her incision created and using the Primus Green Energyiport technology direct access was gained to the abdomen. The abdomen was insufflated with CO2 to a pressure of 12 mmHg pressure. Primary trocar inserted, laparoscope inserted no of any trocar injuries. By the conclusion of the case I had 2 additional family reports of the right mid and lateral abdomen. A telemeter port site in the left epigastrium and 2 more family reports in the left epigastrium left lateral epigastrium. I addressed the hiatal hernia first. The pars flaccida was identified this area was incised with a harmonic scalpel. I was able to identify the right vita of the diaphragm I then did some blunt dissection to identify the stomach and esophagus. I then mobilized the greater curvature of the stomach up near the fundus transecting the short gastrics were needed with harmonic scalpel in order to get visualization of the left vita. I preserved peritoneum upon both vita. As a then dissected the EG junction free. I then performed dissection into the mediastinum carefully protecting the posterior vagus with the esophagus. I was able to get circumferential control was able to identify the vagus I was able to place 1/2 inch Clarkson drain around the esophagus to help with mobilization and visualization. Carefully with gentle blunt dissection harmonic scalpel dissection The lower 6-8 cm of the esophagus nicely freed. I now had vita while identified the esophagus was freed I used a small pledgets of Dacron using a Hemoccult carotid patch. Lot number [id number]. Serial #[id number]. Expiry date 06/10/2023. I utilized 0 Nurolon sutures in carefully approximated the diaphragmatic hiatus. The defect was moderately large approximately 6-8 7 sutures were required for approximation however made sure that this did not encroach upon the esophagus I felt that I had good repair without making it overtly snug. I then was able to wrap the fundus of the stomach. I secured the fundic wrap to the right vita of the diaphragm with a 0 Nurolon. I then performed the toupee procedure securing the wrap portion of the stomach to the anterior lateral aspect of the esophagus did this with 0 Nurolon in a running fashion. Having achieved that I then took the left portion of the fundus of the right fascia approximately 250-270 degrees around secured that to the left aspect of the anterior lateral esophagus in a similar fashion with a running 0 Nurolon. I did take the opportunity with the apex of each suture to assure that I had portion of the epiphrenic phrenic ligament. [place] that I now had a very nice posterior partial wrap. Diaphragm had been nicely repaired. I then performed an upper endoscopy advancing the scope easily and readily the EG junction appear to be in good position the stomach was insufflated. There was some small amount of retained food still within the stomach not a large amount. I could see the posterior wrap nicely in place. There was absolutely no air leak. The scope was then withdrawn and an OG was replaced to completely decompress the stomach. I felt that I had successfully treated now the hiatal hernia and reflux component. Now addressed the gallbladder that was the need for the extra 5 mm port lateral in the right. Rest of the dissector distracted it perform blunt dissection at the infundibulum until I had the critical view completely identified. The cystic artery clearly identified cystic duct identified in the lower portion of the gallbladder was dissected free so I have acute critical view. Couple hemo-lock clips were placed on the cystic artery prior to transecting it. Harmonic scalpel was used for that. To hemo-lock clips were placed proximally 1 distally on the cystic duct prior to transecting that. The gallbladder was then dissected free from the liver bed using electrocautery. Hemostasis was made intact with electrocautery and then to further assure hemostasis I did place 2 pieces of fibrillar in the liver bed. The liver bed was slightly friable. This area was inspected with a noted to be nicely hemostatic in the right upper quadrant was irrigated and aspirated free. I reinspected the Toupet procedure and I felt that this was nicely intact as well. The gallbladder was now exited through the telemeter port site no fascial enlargement was required. That site was now closed with a GraNee needle and 0 Vicryl sutures of [id number] suture in a simple suture. Port sites were inspected they were noted to be hemostatic ports were removed under visualization the abdomen was allowed to deflate his CO2. Skin edges approximated up to 4 Monocryl subdermal stitches. Steri-Strips and Telfa and OpSite dressings were sponge and instrument and needle counts were reported the surgeon be correct. Blood loss was actually quite minimal for all procedures. Specimens include gallbladder. Drains none. Blood loss minimal. The patient was taken to the recovery area in satisfactory condition without apparent complication Jasper Talley M.D., F.A.C.S. Type of Anesthesia:: General Anesthesiologist: Jarrett Browning
--- NOTE | 2018-12-08 11:39 | OP.PCM_ITS ---
Problem List (1) GERD (gastroesophageal reflux disease) Status: Chronic Qualifiers: (2) Chronic cholecystitis with calculus Status: Chronic Report of Operation Date of Procedure: 12/08/18 Pre-Operative Diagnosis: Intractable gastroesophageal reflux disease. Chronic cholecystitis cholelithiasis. Moderately large hiatal hernia Post-Operative Diagnosis: Same Surgery/Procedure Performed:: Laparoscopic repair of hiatal hernia with toupet procedure. Esophagogastroduodenoscopy. Laparoscopic cholecystectomy Description of Surgical Findings:: Timeout and informed consent was obtained. 73 taken the operating placement table underwent general endotracheal intubation anesthesia. Ancef 2 g given intravenously preoperatively. The abdomen was sterilely prepped draped. Ioban drape was used to facilitate drape placement. 0.5% Marcaine was used as a local anesthetic throughout. Skin sites were pre-anesthetized. To the right and slightly superior to the umbilicus local was instilled following her incision created and using the Visiport technology direct access was gained to the abdomen. The abdomen was insufflated with CO2 to a pressure of 12 mmHg pressure. Primary trocar inserted, laparoscope inserted no of any trocar injuries. By the conclusion of the case I had 2 additional family reports of the right mid and lateral abdomen. A telemeter port site in the left epigastrium and 2 more family reports in the left epigastrium left lateral epigastrium. I addressed the hiatal hernia first. The pars flaccida was id entified this area was incised with a harmonic scalpel. I was able to identify the right vita of the diaphragm I then did some blunt dissection to identify the stomach and esophagus. I then mobilized the greater curvature of the stomach up near the fundus transecting the short gastrics were needed with harmonic scalpel in order to get visualization of the left vita. I preserved peritoneum upon both vita. As a then dissected the EG junction free. I then performed dissection into the mediastinum carefully protecting the posterior vagus with the esophagus. I was able to get circumferential control was able to identify the vagus I was able to place 1/2 inch Augustin drain around the esophagus to help with mobilization and visualization. Carefully with gentle blunt dissection harmonic scalpel dissection The lower 6-8 cm of the esophagus nicely freed. I now had vita while identified the esophagus was freed I used a small pledgets of Dacron using a Hemoccult carotid patch. Lot number [id number]. Serial #[id number]. Expiry date 06/10/2023. I utilized 0 Nurolon sutures in carefully approximated the diaphragmatic hiatus. The defect was moderately large approximately 6-8 7 sutures were required for approximation however made sure that this did not encroach upon the esophagus I felt that I had good repair without making it overtly snug. I then was able to wrap the fundus of the stomach. I secured the fundic wrap to the right vita of the diaphragm with a 0 Nurolon. I then performed the toupee procedure securing the wrap portion of the stomach to the anterior lateral aspect of the esophagus did this with 0 Nurolon in a running fashion. Having achieved that I then took the left portion of the fundus of the right fascia approximately 250-270 degrees around secured that to the left aspect of the anterior lateral esophagus in a similar fashion with a running 0 Nurolon. I did take the opportunity with the apex of each suture to assure that I had portion of the epiphrenic phrenic ligament. [place] that I now had a very nice posterior partial wrap. Diaphragm had been nicely repaired. I then performed an upper endoscopy advancing the scope easily and readily the EG junction appear to be in good position the stomach was insufflated. There was some small amount of retained food still within the stomach not a large amount. I could see the posterior wrap nicely in place. There was absolutely no air leak. The scope was then withdrawn and an OG was replaced to completely decompress the stomach. I felt that I had successfully treated now the hiatal hernia and reflux component. Now addressed the gallbladder that was the need for the extra 5 mm port lateral in the right. Rest of the dissector distracted it perform blunt dissection at the infundibulum until I had the critical view completely identified. The cystic artery clearly identified cystic duct identified in the lower portion of the gallbladder was dissected free so I have acute critical view. Couple hemo-lock clips were placed on the cystic artery prior to transecting it. Harmonic scalpel was used for that. To hemo-lock clips were placed proximally 1 distally on the cystic duct prior to transecting that. The gallbladder was then dissected free from the liver bed using electrocautery. Hemostasis was made intact with electrocautery and then to further assure hemostasis I did place 2 pieces of fibrillar in the liver bed. The liver bed was slightly friable. This area was inspected with a noted to be nicely hemostatic in the right upper quadrant was irrigated and aspirated free. I reinspected the Toupet procedure and I felt that this was nicely intact as well. The gallbladder was now exited through the telemeter port site no fascial enlargement was required. That site was now clos ed with a GraNee needle and 0 Vicryl sutures of [id number] suture in a simple suture. Port sites were inspected they were noted to be hemostatic ports were removed under visualization the abdomen was allowed to deflate his CO2. Skin edges approximated up to 4 Monocryl subdermal stitches. Steri-Strips and Telfa and OpSite dressings were sponge and instrument and needle counts were reported the surgeon be correct. Blood loss was actually quite minimal for all procedures. Specimens include gallbladder. Drains none. Blood loss minimal. The patient was taken to the recovery area in satisfactory condition without apparent complication Jasper Talley M.D., F.A.C.S. Type of Anesthesia:: General Anesthesiologist: Jarrett Browning
[2018-12-08] MEDS: Morphine 2 MG/ML Syringe IV ×2 (14:52→17:45)
[2018-12-08] MEDS: 0.9% NaCl Peripheral Flush Adult/Peds IV ×3 (14:52→18:58)
--- NOTE | 2018-12-08 14:55 | NURSING ---
Bag of LR transported with pt from PACU programmed to run per order 60cc/hr-- MAR times adjusted. Kpad in place and cont. spo2 applied per protocol for + stop screening.
--- NOTE | 2018-12-08 18:01 | NURSING ---
Pt stood at bedside at 1600- slightly dizzy and stated she did not feel comfortable to walk yet. Dr. Talley in to see patient- again educated on importance of ambulation- pt requested to walk at 1730- same completed. Pt walked up hallway, but stated that due to pain she could not tolerate anymore at this time. Returned to room- sitting in recliner. in with patient- both deny needs.
[2018-12-08] MEDS: Ondansetron 4 MG/2 ML Vial IV (18:58)
[2018-12-08] MEDS: Lactated Ringers 1,000 ML 60 ML IV (21:25)
[2018-12-08] MEDS: Sertraline 50 MG Tablet PO (21:25)
[2018-12-08] MEDS: Gabapentin 300 MG Capsule PO (21:25)
[2018-12-09] VITALS (10 sets, daily range): BP systolic 122–147; BP diastolic 64–83; PULSE 72–83; RESP 16–20; TEMP 36.2–36.6; O2SAT 77–97
[2018-12-09] MEDS: HYDROcodone Bitartrate/Apap 5/325 Tablet PO ×2 (02:08→09:30)
[2018-12-09] MEDS: Enoxaparin 40 MG/0.4 ML Syringe SC (05:05)
--- NOTE | 2018-12-09 05:53 | PCM.PN.SRG ---
Subjective: Pt supine in bed Notes abdominal discomfort, no flatus Has not been OOB to chair Still on oxygen - Physical Exam General: Alert Lungs: - - poor respiratory excursion Clear apices Abdomen: Hypoactive Bowel Sounds, Distended, Tender Vital Signs Temp Pulse Resp BP Pulse Ox 98 F 80 16 147/83 H 97 12/09/18 02:09 12/09/18 02:09 12/09/18 02:09 12/09/18 02:09 12/09/18 02:09 Oxygen Flow Rate (L/min) 2 Oxygen Delivery Method Nasal Cannula Weight: 135 lb 9.349 oz Body Mass Index (BMI) 25.6 Intake and Output for Last 24 Hours 12/07/18 12/08/18 12/09/18 23:59 23:59 23:59 Intake Total 529 / 529 1437 / 1437 Output Total 150 / 150 775 / 775 Balance 379 / 379 662 / 662 Medical Necessity - Tobacco Use Smoking Status: Never smoker Assessment/Plan All Active Problems (Last Reviewed 12/01/18 @ 10:02 by Ophelia Blakely) Esophageal hiatal hernia (Acute) Hx of CABG (Resolved) Hx of appendectomy (Resolved) interatrial septal repair (Resolved) Hypotension (Acute) Need to mobilize and encourage IS Plan discharge later today
[2018-12-09] MEDS: Amiodarone 200 MG Tablet PO (09:30)
[2018-12-09] MEDS: Pantoprazole Sodium 40 MG Tablet PO (09:30)
[2018-12-09] MEDS: Magnesium Oxide 400 MG Tablet PO (09:30)
[2018-12-09] MEDS: dilTIAZem CD 120 MG Capsule PO (09:30)
[2018-12-09] MEDS: BENZOCAINE/MENTHOL 1 LOZENGE MUCOUS MEM (09:32)
--- NOTE | 2018-12-09 11:17 | NURSING ---
Pt educated on importance of ambulation and IS- due to low spo2 levels on O2. Educated on fine crackles in lungs and common issues with deep breathing vs. abdominal pain and risk for pneumonia. Pt verbalized understanding. Notified that we will be pushing ambulation today- again understanding verbalized. While ambulating pt did pass flatus, had only been belching prior.
--- NOTE | 2018-12-09 11:38 | NURSING ---
cps called and notified of x1 order for duoneb
[2018-12-09] MEDS: Ipratropium/Albuterol Sulfate 3 ML AMPUL.NEB INHALATION ×2 (11:48→19:55)
--- NOTE | 2018-12-09 13:03 | CASEMGMT ---
RN CM Note. Intro role of CM to patient in room. Pt states she is independent, no dc needs. Continues to wear oxygen. Verified that [facility] is [employer], but per [facility] member service representative: Human guidelines for approval require face to face documentation for need of oxygen and it must be for CHRONIC conditions only. Acute conditions are not covered under [employer]. [facility] nurse jaden. Jeanette KISER RN AC
[2018-12-09] MEDS: Furosemide 20 MG/2 ML VIAL IV (13:25)
[2018-12-09] MEDS: 0.9% NaCl Peripheral Flush Adult/Peds IV (13:26)
--- NOTE | 2018-12-09 14:16 | RAD_ITS ---
STUDY: X-RAY CHEST REASON FOR EXAM: Female, 73 years old. Shortness of breath following recent surgery. TECHNIQUE: PA and lateral views of the chest. COMPARISON: Comparison is made with prior study dated April 11, 2016. FINDINGS: There now is evidence of increased interstitial markings at the lung bases with areas of confluence. This may represent either atelectasis and/or infiltrates superimposed on bibasilar scarring. There is no demonstrated pleural abnormality. Normal size heart. Normal mediastinum and grant. There is prominence of the pulmonary hilar arteries without peripheral pulmonary vascular congestion, suggesting pulmonary hypertension. This is worse on the left side. There is atherosclerotic calcification of the aortic arch with tortuosity. There is demineralization of the osseous structures. Normal visualized ribs, clavicles, and shoulders. Gaseous distention of the stomach in the visualized colon. RAD/Chest PA and Lateral IMPRESSION: Increased markings at the lung bases with areas of confluence suggesting bibasilar atelectasis and/or infiltrate superimposed on scarring. Stable enlargement of the left pulmonary artery. Electronically Signed: Jamaal Gonzales MD at 15:04 EST , Service support ,
--- NOTE | 2018-12-09 15:43 | NURSING ---
CPS called at this time and notified of new orders. Recommendation would be to push I.S. today and if not resolved tomorrow- consult pulmonology.
[2018-12-09] MEDS: Acetaminophen 325 MG Tablet 650 MG PO (17:10)
[2018-12-09 17:22] LABS: Hematocrit 38.3 % (37-47); Mean Corp Hgb Conc 31.3 g/gl (32-36); Mean Corpuscular Hgb 29.4 pg (27.0-32.0); Mean Corpuscular Volume 93.9 fL (81-99); Mean Platelet Vol. 11.3 fl (6.2-12.0); Platelet Count 126 K/mm3 (150-450); RBC Distribution Width CV 14.7 % (11.6-14.6); RBC Distribution Width SD 50.3 fl (35.1-43.9); Red Blood Count 4.08 M/mm3 (4.2-5.4)
[2018-12-09 17:27] LABS: Scan Indicated on CBC? Y/N NO
--- NOTE | 2018-12-09 20:00 | CPS ---
decreased to 1 lpm O2
[2018-12-09] MEDS: Sertraline 50 MG Tablet PO (22:01)
[2018-12-09] MEDS: Gabapentin 300 MG Capsule PO (22:01)
[2018-12-10] VITALS (8 sets, daily range): BP systolic 125–138; BP diastolic 67–70; PULSE 75–81; RESP 16–20; TEMP 36.6–37.2; O2SAT 88–96
[2018-12-10] MEDS: Enoxaparin 40 MG/0.4 ML Syringe SC (06:07)
--- NOTE | 2018-12-10 06:17 | PCM.PN.SRG ---
Subjective: Pt feeling more comfortable - Physical Exam General: Alert, Oriented x3, Cooperative, No apparent distress Lungs: - - clear apices, still diminished in bases Abdomen: Bowel Sounds Present, Soft, Non Tender Vital Signs Temp Pulse Resp BP Pulse Ox 98.0 F 76 18 138/70 H 96 12/10/18 04:06 12/10/18 04:06 12/10/18 04:06 12/10/18 04:06 12/10/18 04:06 Oxygen Flow Rate (L/min) 2 Oxygen Delivery Method Nasal Cannula Weight: 135 lb 9.349 oz Body Mass Index (BMI) 25.6 Intake and Output for Last 24 Hours 12/08/18 12/09/18 12/10/18 23:59 23:59 23:59 Intake Total 529 / 529 2927 / 2927 240 / 240 Output Total 150 / 150 1450 / 1450 Balance 379 / 379 1477 / 1477 240 / 240 Laboratory Tests Past 24 Hrs 12/09/18 17:05 WBC 11.0 RBC 4.08 L Hgb 12.0 Hct 38.3 MCV 93.9 MCH 29.4 MCHC 31.3 L RDW 14.7 H RDW Differential 50.3 H Plt Count 126 L MPV 11.3 Medical Necessity - Tobacco Use Smoking Status: Never smoker Assessment/Plan All Active Problems (Last Reviewed 12/01/18 @ 10:02 by Ophelia Blakely) Esophageal hiatal hernia (Acute) Hx of CABG (Resolved) Hx of appendectomy (Resolved) interatrial septal repair (Resolved) Hypotension (Acute) Pt again encouraged to be OOB and ambulating and working on IS and in chair. I have encouraged her to be completely out of the bed today. Plan discharge today if oxygen can be weened. Post op bed rest after surgery and post op day 1 has lead to bibasilar atelectasis. No evidence for pneumonia. Encouragement offered
[2018-12-10] MEDS: Ipratropium/Albuterol Sulfate 3 ML AMPUL.NEB INHALATION ×3 (06:54→15:39)
[2018-12-10] MEDS: HYDROcodone Bitartrate/Apap 5/325 Tablet PO (07:54)
[2018-12-10] MEDS: Amiodarone 200 MG Tablet PO (11:29)
[2018-12-10] MEDS: dilTIAZem CD 120 MG Capsule PO (11:29)
[2018-12-10] MEDS: Pantoprazole Sodium 40 MG Tablet PO (11:29)
[2018-12-10] MEDS: Magnesium Oxide 400 MG Tablet PO (11:29)
--- NOTE | 2018-12-10 12:28 | PCM.PN.BLA ---
Progress Note Patient continues to need oxygen via nasal canula due to decrease oxygen saturation. Patient does have a history of pulmonary hypertension. Patient recently had a chest x-ray which demonstrated Increased markings at the lung bases with areas of confluence suggesting bibasilar atelectasis and/or infiltrate superimposed on scarring. Stable enlargement of the left pulmonary artery. Patient is ambulatory in her home. Patient has been 83% ambulatory on room air and does qualify for home oxygen. Patient again continues to require 1 liter of oxygen. Code Visit Inpatient E&M: 70304 Subs Hosp L1 - POST-OP
--- NOTE | 2018-12-10 12:39 | PN_ITS ---
Progress Note Patient continues to need oxygen via nasal canula due to decrease oxygen saturation. Patient does have a history of pulmonary hypertension. Patient recently had a chest x-ray which demonstrated Increased markings at the lung bases with areas of confluence suggesting bibasilar atelectasis and/or infiltrate superimposed on scarring. Stable enlargement of the left pulmonary artery. Patient is ambulatory in her home. Patient has been 83% ambulatory on room air and does qualify for home oxygen. Patient again continues to require 1 liter of oxygen. Code Visit Inpatient E&M: 76171 Subs Hosp L1 - POST-OP
--- NOTE | 2018-12-10 12:39 | PCM.DC.SUM ---
Discharge Date and Diagnosis Date of Admission: 12/08/18 Date of Discharge: 12/10/18 - Primary Discharge Diagnosis Intractable gastroesophageal reflux disease Chronic cholecystitis cholelithiasis Moderately large hiatal hernia - Secondary Discharge Diagnosis Chronic Problems (Last Reviewed 12/01/18 @ 10:02 by Ophelia Blakely) Chronic cholecystitis with calculus (Chronic) Paroxysmal atrial fibrillation (Chronic) DCCV in April 2016; Essential (primary) hypertension (Chronic) Dilatation of pulmonic artery (Chronic) Daytime somnolence (Chronic) Congenital heart disease (Chronic) 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, left (Chronic) 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 Esophagogastroduodenoscopy. Laparoscopic cholecystectomy. Summary of Care Provided: The patient is a 73 year old F who presented for an elective laparoscopic Himanshu and lap samantha. Dr. Talley performed a Laparoscopic repair of hiatal hernia with toupet procedure. Esophagogastroduodenoscopy. Laparoscopic cholecystectomy on 12/08/18. Patient tolerated the procedure well. Patient does have a history of pulmonary hypertension. She was placed on oxygen post-operatively. She had difficulty keeping her oxygen saturation into the 90's on room air. Patient was tested for home oxygen and has qualified. Patient will be discharged to home on oxygen via nasal canula. Patient will follow-up with Dr. Talley in 1 week. She denies shortness of breath with oxygen. She notes minimal amount of abdominal discomfort. - Physical Exam General: Alert, Oriented x3, Cooperative Abdomen: Bowel Sounds Present, Soft, Distended - slightly, Tender - generalized, - - Incisions c/d/i. No erythema or infection noted Vital Signs Temp Pulse Resp BP Pulse Ox 97.9 F 75 16 136/70 H 95 12/10/18 07:43 12/10/18 11:25 12/10/18 11:25 12/10/18 07:43 12/10/18 08:15 Oxygen Flow Rate (L/min) 2 Oxygen Delivery Method Nasal Cannula Weight: 135 lb 9.349 oz Body Mass Index (BMI) 25.6 Intake and Output for Last 24 Hours 01/28/19 01/29/19 01/30/19 23:59 23:59 23:59 Intake Total 529 / 529 2927 / 2927 240 / 240 Output Total 150 / 150 1450 / 1450 Balance 379 / 379 1477 / 1477 240 / 240 Laboratory Tests Past 24 Hrs 12/09/18 17:05 WBC 11.0 RBC 4.08 L Hgb 12.0 Hct 38.3 MCV 93.9 MCH 29.4 MCHC 31.3 L RDW 14.7 H RDW Differential 50.3 H Plt Count 126 L MPV 11.3 Discharge Diet: Light diet - advance as tolerated - if you have questions about your diet instructions, please talk to you doctor. Discharge Activity: May Not Drive - for 3-5 days or while taking narcotic pain medicine. May shower in (days): 1 Call your doctor if your incision/area has: Continuous Slow Oozing, Sudden Increased Bleeding, Increased Pain/ Swelling, Increased Redness, Foul Smelling Discharge Call your doctor if you observe: Fever of 101 or Higher Suture Line Care: Avoid Pulling/Pushing, Avoid Pinching/Bending Additional Dressing/Incision Instructions:: Change or remove dressing in 3 days. Leave steri-strips in place for 1 week. Home Medications: Medications to take at Discharge Pantoprazole Sodium [Protonix] 40 mg PO DAILY 09/02/15 Sertraline HCl 50 mg PO QHS 09/02/15 gabapentin 300 mg capsule 300 mg PO QHS 08/25/18 levomefolate calcium 15 mg tablet 15 mg PO DAILY 08/25/18 magnesium 400 mg (as magnesium oxide) tablet 400 mg PO DAILY tab 09/29/18 Amiodarone HCl [Cordarone] 200 mg PO DAILY 12/01/18 Apixaban [Eliquis] 5 mg PO BID 12/01/18 Diltiazem CD [Cardizem CD] 120 mg PO DAILY 12/01/18 Ergocalciferol (Vitamin D2) [Vitamin D2] 50,000 unit PO QWEEK 12/01/18 Hydrocodone Bitart/Apap 5-325 [[place] 5MG-325MG] 1 tablet PO Q6H PRN PRN 3 Days #8 tablet 12/08/18 Following Prescrptions Were Given to Patient: Hydrocodone Bitart/Apap 5-325 [[place] 5MG-325MG] 1 tablet PO Q6H PRN PRN 3 Days #8 tablet PRN Reason: Pain Primary Care Physician: Jame De La Garza MD [Primary Care Provider] - Please Follow Up With: Jasper Talley MD - [phone] When: 1 week Disposition: Home Minutes spent on discharge:: 25 Patient Condition:: Stable Medical Necessity - Tobacco Use Smoking Status: Never smoker Meaningful Use Info Meaningful Use Diagnoses (Choose all that apply): None applicable Code Visit Inpatient E&M: 40983 Disch Hosp
--- NOTE | 2018-12-10 12:57 | DS.PCM_ITS ---
Discharge Date and Diagnosis Date of Admission: 12/08/18 Date of Discharge: 12/10/18 - Primary Discharge Diagnosis Intractable gastroesophageal reflux disease Chronic cholecystitis cholelithiasis Moderately large hiatal hernia - Secondary Discharge Diagnosis Chronic Problems (Last Reviewed 12/01/18 @ 10:02 by Ophelia Blakely) Chronic cholecystitis with calculus (Chronic) Paroxysmal atrial fibrillation (Chronic) DCCV in April 2016; Essential (primary) hypertension (Chronic) Dilatation of pulmonic artery (Chronic) Daytime somnolence (Chronic) Congenital heart disease (Chronic) 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, left (Chronic) 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 Esophagogastroduodenoscopy. Laparoscopic cholecystectomy. Summary of Care Provided: The patient is a 73 year old F who presented for an elective laparoscopic Himanshu and lap samantha. Dr. Talley performed a Laparoscopic repair of hiatal hernia with toupet procedure. Esophagogastroduodenoscopy. Laparoscopic cholecystectomy on 12/08/18. Patient tolerated the procedure well. Patient does have a history of pulmonary hypertension. She was placed on oxygen post-operatively. She had difficulty keeping her oxygen saturation into the 90's on room air. Patient was tested for home oxygen and has qualified. Patient will be discharged to home on oxygen via nasal canula. Patient will follow-up with Dr. Talley in 1 week. She denies shortness of breath with oxygen. She notes minimal amount of abdominal discomfort. - Physical Exam General: Alert, Oriented x3, Cooperative Abdomen: Bowel Sounds Present, Soft, Distended - slightly, Tender - generalized, - - Incisions c/d/i. No erythema or infection noted Vital Signs Temp Pulse Resp BP Pulse Ox 97.9 F 75 16 136/70 H 95 12/10/18 07:43 12/10/18 11:25 12/10/18 11:25 12/10/18 07:43 12/10/18 08:15 Oxygen Flow Rate (L/min) 2 Oxygen Delivery Method Nasal Cannula Weight: 135 lb 9.349 oz Body Mass Index (BMI) 25.6 Intake and Output for Last 24 Hours 01/28/19 01/29/19 01/30/19 23:59 23:59 23:59 Intake Total 529 / 529 2927 / 2927 240 / 240 Output Total 150 / 150 1450 / 1450 Balance 379 / 379 1477 / 1477 240 / 240 Laboratory Tests Past 24 Hrs 12/09/18 17:05 WBC 11.0 RBC 4.08 L Hgb 12.0 Hct 38.3 MCV 93.9 MCH 29.4 MCHC 31.3 L RDW 14.7 H RDW Differential 50.3 H Plt Count 126 L MPV 11.3 Discharge Diet: Light diet - advance as tolerated - if you have questions about your diet instructions, please talk to you doctor. Discharge Activity: May Not Drive - for 3-5 days or while taking narcotic pain medicine. May shower in (days): 1 Call your doctor if your incision/area has: Continuous Slow Oozing, Sudden Increased Bleeding, Increased Pain/ Swelling, Increased Redness, Foul Smelling Discharge Call your doctor if you observe: Fever of 101 or Higher Suture Line Care: Avoid Pulling/Pushing, Avoid Pinching/Bending Additional Dressing/Incision Instructions:: Change or remove dressing in 3 days. Leave steri-strips in place for 1 week. Home Medications: Medications to take at Discharge Pantoprazole Sodium [Protonix] 40 mg PO DAILY 09/02/15 Sertraline HCl 50 mg PO QHS 09/02/15 gabapentin 300 mg capsule 300 mg PO QHS 08/25/18 levomefolate calcium 15 mg tablet 15 mg PO DAILY 08/25/18 magnesium 400 mg (as magnesium oxide) tablet 400 mg PO DAILY tab 09/29/18 Amiodarone HCl [Cordarone] 200 mg PO DAILY 12/01/18 Apixaban [Eliquis] 5 mg PO BID 12/01/18 Diltiazem CD [Cardizem CD] 120 mg PO DAILY 12/01/18 Ergocalciferol (Vitamin D2) [Vitamin D2] 50,000 unit PO QWEEK 12/01/18 Hydrocodone Bitart/Apap 5-325 [[place] 5MG-325MG] 1 tablet PO Q6H PRN PRN 3 Days #8 tablet 12/08/18 Following Prescrptions Were Given to Patient: Hydrocodone Bitart/Apap 5-325 [[place] 5MG-325MG] 1 tablet PO Q6H PRN PRN 3 Days #8 tablet PRN Reason: Pain Primary Care Physician: Jame De La Garza MD [Primary Care Provider] - Please Follow Up With: Jasper Talley MD - [phone] When: 1 week Disposition: Home Minutes spent on discharge:: 25 Patient Condition:: Stable Medical Necessity - Tobacco Use Smoking Status: Never smoker Meaningful Use Info Meaningful Use Diagnoses (Choose all that apply): None applicable Code Visit Inpatient E&M: 28135 Disch Hosp
--- NOTE | 2018-12-10 14:22 | CASEMGMT ---
RN CM NOTE: Home O2 qualification testing completed and pt qualifies for oxygen. Script obtained from [facility]. Script, Face to Face stating pt's need for home O2, home O2 qualification testing, insurance information, demographics, documentation of chronic condition/pulmonary hypertension, and Discharge Summary all faxed to [facility] @ [phone]. They were made aware pt is discharging today and will need portable oxygen delivered prior to discharge. Jaylene BUSTAMANTEN RN CM
== END 2018-12-10 16:15 | disposition home or self-care (01) ==
LOC: SDC 11:35 → MS2 18:05 → MS3 12-09 07:22
PROVIDERS: Physician Assistant; Admitting Provider Surgery; Family Provider Family Medicine; PCP Family Medicine; Referring Provider Surgery; Visit Provider Surgery
PROC: (CPT 43325; principal; 2018-12-08 06:55)
DX: K80.10 Calculus of gallbladder with chronic cholecystitis without obstruction (principal); K21.9 Gastro-esophageal reflux disease without esophagitis; K44.9 Diaphragmatic hernia without obstruction or gangrene; Z95.1 Presence of aortocoronary bypass graft; I27.20 Pulmonary hypertension, unspecified; I48.0 Paroxysmal atrial fibrillation; I10 Essential (primary) hypertension; Q24.9 Congenital malformation of heart, unspecified; F32.9 Major depressive disorder, single episode, unspecified; Z79.899 Other long term (current) drug therapy; Z79.01 Long term (current) use of 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; G25.81 Restless legs syndrome
CPT/HCPCS: 43280; 47562; 36415; 71046; 80048; 85027; 87070; 87205; 88304; 93005; 94640; 94667; 94762; 96372; 96374; 96375; 96376; 99218; J7120; A4216; C1768; G0378; G0379; J1940; J2405

== ENCOUNTER → 2019-01-15 13:45 | Outpatient (CLI) | payer MEDICARE, SELFPAY ==
[2018-12-31 07:41] VITALS: BMI 23.4
--- NOTE | 2019-01-15 13:47 | ECHOD_ITS ---
Reason For Study: dyspnea/SOB Procedure This was a 2D Doppler, Color Flow transthoracic echocardiogram. Contrast injection was performed. Exam performed in department. Left Ventricle Normal LV size. Left ventricular systolic function is normal. The estimated ejection fraction is 60 %. Post operative septal motion. No regional wall motion abnormalities noted. Right Ventricle Normal RV size. Normal systolic function. Atria The left atrium is moderately enlarged. The right atrium is mildly enlarged. 2D echocardiographic findings c/w an interatrial shunt repair. No doppler evidence for ASD. Mitral Valve There is no mitral annular calcification. Mild diffuse mitral valve thickening. Mild (1+) mitral valve insufficiency. Tricuspid Valve Normal tricuspid valve. Trivial tricuspid valve insufficiency. Right ventricular systolic pressure estimated to be 31 mmHg. Aortic Valve Trisinus/trileaflet aortic valve. Normal aortic valve. Trivial aortic valve insufficiency. Pulmonic Valve The pulmonic valve is not well visualized. Mild (1+) pulmonic valve insufficiency. Great Vessels Normal sized aortic root. Pericardium/Pleural No pericardial effusion. MMode/2D Measurements & Calculations LVIDd: 4.6 cm IVSd: 0.82 cm Ao root diam: 2.6 cm LVIDs: 2.8 cm LVPWd: 1.0 cm RVDd: 3.4 cm FS: 39.5 % LAV(MOD-bp): 73.3 ml LA A4 area: 25.9 cm2 LA dimension(2D): 4.2 cm LAV(MOD-bp) Indexed: 46.6 ml/m2 LAV(MOD-sp2): 49.5 ml LAV(MOD-sp4): 90.7 ml RA A4 area: 21.0 cm2 Doppler Measurements & Calculations MV E max sandor: 95.8 cm/sec Lat Peak E' Sandor: 5.1 cm/sec Med Peak E' Sandor: 7.5 cm/sec MV A max sandor: 89.3 cm/sec E/E' lat: 18.7 E/E' med: 12.8 MV E/A: 1.1 Ao V2 max: 138.8 cm/sec AI max sandor: 464.0 cm/sec LV V1 max: 113.4 cm/sec Ao max P.7 mmHg AI max P.1 mmHg LV V1 max P.2 mmHg AI dec slope: 262.5 cm/sec2 AI P1/2t: 517.8 msec PA V2 max: 197.6 cm/sec PI dec slope: 128.9 cm/sec2 TR max sandor: 264.5 cm/sec PA V2 mean: 135.6 cm/sec TR max P.2 mmHg PA V2 VTI: 39.9 cm Interpretation Summary Left ventricular systolic function is normal. The estimated ejection fraction is 60 %. Post operative septal motion. The left atrium is moderately enlarged. The right atrium is mildly enlarged. 2D echocardiographic findings c/w an interatrial shunt repair. Mild diffuse mitral valve thickening. Mild (1+) mitral valve insufficiency. Trivial tricuspid valve insufficiency. Trivial aortic valve insufficiency. Mild (1+) pulmonic valve insufficiency. Right ventricular systolic pressure estimated to be 31 mmHg. Transmitral diastolic flow velocities suggest diastolic dysfunction (pseudonormal pattern). Ordering Physician: Christopher Devine D.O. Referring Physician: Jame De La Garza Performed By: Ophelia Diaz RDCS, RVT
== END ==
PROVIDERS: Family Provider Family Medicine; PCP Family Medicine; Referring Provider Internal Medicine Critical Care Medicine; Visit Provider Internal Medicine Critical Care Medicine
DX: I27.20 Pulmonary hypertension, unspecified (principal)
CPT/HCPCS: 93306

== ENCOUNTER → 2019-01-28 10:46 | Outpatient (CLI) | payer MEDICARE, SELFPAY ==
[2019-01-28 09:59] VITALS: BMI 23.2
[2019-01-28 12:11] LABS: Rheumatoid Factor < 10.0 IU/mL (<15)
[2019-01-29 15:34] LABS: ANTINUCLEAR ANTIBODIES DIRECT Negative (Negative)
[2019-01-30 20:07] LABS: Cytoplasmic Ab (C-ANCA) <1:20 titer (Neg:<1:20)
[2019-01-31 11:55] LABS: CCP IgG Antibodies 13 units (0-19); Perinuclear Ab (P-ANCA) <1:20 titer (Neg:<1:20)
== END ==
PROVIDERS: Family Provider Family Medicine; PCP Family Medicine; Visit Provider Nurse Practitioner Acute Care
DX: R06.09 Other forms of dyspnea (principal)
CPT/HCPCS: 36415; 86038; 86200; 86225; 86235; 86256; 86431

== ENCOUNTER → 2019-04-13 | Outpatient (CLI) | payer MEDICARE, SELFPAY ==
[2019-01-28 09:59] VITALS: BMI 23.2
[2019-04-03 14:04] VITALS: BMI 24.2
--- NOTE | 2019-04-14 07:42 | PFT ---
INTRODUCTION: The patient is a 74-year-old female that presents for pulmonary function studies secondary to a diagnosis of exertional dyspnea. Respiratory therapy reports good patient effort. Bronchodilators were used during testing. INTERPRETATION: Forced expiration spirometry demonstrates no evidence of a large airways obstructive ventilatory defect. There was no significant response to aerosolized bronchodilators, based upon strict ATS criteria. Spirograms are of good quality and plateau normally. Body plethysmography was performed and reveals lung volumes to be within normal limits. Diffusing capacity by single breath CO is also within normal limits. When compared to pulmonary function studies from March 2018, there has been improvement in the patient's FEV1 and total lung capacity. IMPRESSION: Normal pulmonary function studies.
== END | disposition home or self-care (01) ==
LOC: PSN 07:46
PROVIDERS: Family Provider Family Medicine; PCP Family Medicine; Referring Provider Nurse Practitioner Acute Care; Visit Provider Nurse Practitioner Acute Care
DX: R06.09 Other forms of dyspnea (principal)
CPT/HCPCS: 94060; 94726; 94729

== ENCOUNTER → 2019-04-15 | Outpatient (CLI) | payer MEDICARE, SELFPAY ==
[2019-01-28 09:59] VITALS: BMI 23.2
[2019-04-03 14:04] VITALS: BMI 24.2
[2019-04-15 09:10] VITALS: PULSE 65; PULSE 69; PULSE 73; PULSE 75; PULSE 77; PULSE 79; PULSE 88; O2SAT 94; O2SAT 95; O2SAT 96; O2SAT 98
--- NOTE | 2019-04-15 13:06 | PCM.PSN.6M ---
PSN 6 Minute Walk Test - 6 Minute Walk Test 6 Minute Walk Test: 6 Minute Walk Test PSN:6-Minute Walk Test Start: 04/15/19 09:09 Freq: Status: Active Protocol: RESP.6MINW Document 04/15/19 09:10 MAXWELL (Rec: 04/15/19 09:16 MAXWELL [id number]) 6 Minute Walk Test Date Performed 04/15/19 Time Performed 09:00 Height 5 ft Weight: 124 lb Weight in Pounds 124.[address]: Christopher Devine Assistive device used: None Pre-test Oxygen Delivery Method Room Air Pulse Ox (%) 94 Pulse Rate (60-100 beats/min) 65 Dyspnea Sofya Scale (0-10) 0 Exertion Sofya Scale (6-20) 6 1st minute Oxygen Delivery Method Room Air Pulse Ox (%) 95 Pulse Rate (60-100 beats/min) 73 2nd minute Oxygen Delivery Method Room Air Pulse Ox (%) 95 Pulse Rate (60-100 beats/min) 75 3rd minute Oxygen Delivery Method Room Air Pulse Ox (%) 95 Pulse Rate (60-100 beats/min) 77 4th minute Oxygen Delivery Method Room Air Pulse Ox (%) 94 Pulse Rate (60-100 beats/min) 79 5th minute Oxygen Delivery Method Room Air Pulse Ox (%) 96 Pulse Rate (60-100 beats/min) 79 6th minute Oxygen Delivery Method Room Air Pulse Ox (%) 95 Pulse Rate (60-100 beats/min) 88 Dyspnea Sofya Scale (0-10) 1 Exertion Sofya Scale (6-20) 12 Post-test Oxygen Delivery Method Room Air Pulse Ox (%) 98 Pulse Rate (60-100 beats/min) 69 Full Laps Walked 17 Partial Lap, Number of Tiles Walked 39 Total Distance Walked (ft) 1042 - Interpretation Interpretation: The patient ambulated 1042 feet over the course of 6 minutes beginning on room air without assistive devices or breaks. Pretesting oxygen saturation was noted to be 94% on room air. With ambulation, the dustin oxygen saturation was 94%. There was no significant exertional oxygen desaturation. - Recommendations Recommendations: There is no indication for the use of supplemental oxygen at this time.
== END | disposition home or self-care (01) ==
PROVIDERS: Family Provider Family Medicine; PCP Family Medicine; Referring Provider Nurse Practitioner Acute Care; Visit Provider Nurse Practitioner Acute Care
DX: R06.09 Other forms of dyspnea (principal)
CPT/HCPCS: 94618

== ENCOUNTER → 2019-04-22 | Outpatient (CLI) | payer MEDICARE, SELFPAY ==
[2019-04-22 08:52] VITALS: BMI 24.2
[2019-04-22 11:16] LABS: AST(SGOT) 32 U/L (15-37); Alanine Aminotransfer ALT/SGPT 37 U/L (13-56); Albumin, Serum 3.6 g/dL (3.2-5.0); Alkaline Phosphatase 110 U/L (45-117); Bilirubin, Direct 0.17 mg/dL (0.00-0.30); Cholesterol 207 mg/dL (200); Globulin 4.1 g/dL (2.2-4.2); High Density Lipoprotein 58 mg/dL; Protein, Total 7.7 g/dL (6.4-8.2); T4 Total, Thyroxin 12.6 ug/dL (4.8-13.9); Thyroid Stim Hormone (TSH) 1.66 uIU/mL (0.358-3.74); Triglycerides 112 mg/dL; Very Low Density Lipoprotein 22 mg/dL (5-40)
== END | disposition home or self-care (01) ==
LOC: LAB 09:44
PROVIDERS: Family Provider Family Medicine; PCP Family Medicine; Referring Provider Internal Medicine Cardiovascular Disease; Visit Provider Internal Medicine Cardiovascular Disease
DX: E78.5 Hyperlipidemia, unspecified (principal)
CPT/HCPCS: 36415; 80061; 80076; 84436; 84443

== ENCOUNTER → 2019-04-23 | Outpatient (CLI) | payer MEDICARE, SELFPAY ==
[2019-04-22 08:52] VITALS: BMI 24.2
== END | disposition home or self-care (01) ==
LOC: SL 12:53
PROVIDERS: Family Provider Family Medicine; PCP Family Medicine; Referring Provider Internal Medicine Critical Care Medicine; Visit Provider Internal Medicine Critical Care Medicine
DX: G47.34 Idiopathic sleep related nonobstructive alveolar hypoventilation (principal)
CPT/HCPCS: 94762

== ENCOUNTER → 2019-05-07 | Outpatient (CLI) | payer MEDICARE, SELFPAY ==
[2019-04-30 13:57] VITALS: BMI 24.2
== END | disposition home or self-care (01) ==
PROVIDERS: Family Provider Family Medicine; PCP Family Medicine; Referring Provider Nurse Practitioner Acute Care; Visit Provider Nurse Practitioner Acute Care
DX: G47.33 Obstructive sleep apnea (adult) (pediatric) (principal)
CPT/HCPCS: 95806

== ENCOUNTER → 2019-06-12 | Outpatient (CLI) | payer MEDICARE, SELFPAY ==
[2019-04-30 13:57] VITALS: BMI 24.2
== END | disposition home or self-care (01) ==
LOC: SL 19:36
PROVIDERS: Family Provider Family Medicine; PCP Family Medicine; Referring Provider Nurse Practitioner Acute Care; Visit Provider Nurse Practitioner Acute Care
DX: G47.33 Obstructive sleep apnea (adult) (pediatric) (principal)
CPT/HCPCS: 95811

== ENCOUNTER → 2019-08-21 | Outpatient (CLI) | payer MEDICARE, SELFPAY ==
[2019-08-12 06:25] VITALS: BMI 24.4
--- NOTE | 2019-08-21 16:06 | RAD_ITS ---
STUDY: X-RAY - RIGHT KNEE REASON FOR EXAM: Female, 74 years old. Right knee pain TECHNIQUE: 4 view(s) of the knee. COMPARISON: None. FINDINGS: Normal visualized distal femur. Normal visualized proximal tibia and fibula. Normal proximal tibiofibular articulation. Normal medial femorotibial compartment. Normal lateral femorotibial compartment. Normal patellofemoral articulation. There is no demonstrated joint effusion. The soft tissue structures are unremarkable. RAD/Knee 4 or More Views IMPRESSION: Normal x-ray examination of the knee. Electronically Signed: Denny Ruiz MD ([place]) at 16:17 EDT , Service support ,
== END | disposition home or self-care (01) ==
LOC: MTRAD 16:06
PROVIDERS: Family Provider Family Medicine; PCP Family Medicine; Referring Provider Family Medicine; Visit Provider Family Medicine
DX: M25.561 Pain in right knee (principal)
CPT/HCPCS: 73564

== ENCOUNTER → 2019-10-17 09:18 | Outpatient (CLI) | payer MEDICARE, SELFPAY ==
[2019-08-12 06:25] VITALS: BMI 24.4
[2019-10-01 15:36] VITALS: BMI 25.5
--- NOTE | 2019-10-17 09:20 | BI_ITS ---
MAMMOGRAPHY - BILATERAL SCREENING REASON FOR EXAM: Female, 74 years old. Routine annual screening examination. PERTINENT HISTORY: Non-contributory. TECHNIQUE: Digital bilateral breast luis (3D mammographic acquisition) in the CC and MLO projections. 2-D mediolateral oblique (MLO) and craniocaudad (CC) views of both breasts were obtained. CAD: Full Field Digital Mammography with Computer Added Detection was performed. COMPARISON: Comparison is made with prior examination dated August 16, 2018 and March 25, 2017. FINDINGS: Breast Composition: The breasts are heterogeneously dense, which may obscure small masses. There are no dominant masses or suspicious calcifications. No other significant abnormalities are identified. There has been no significant change since the prior study. BI/SCREEN MAMM (CAD) W/LUIS BILAT IMPRESSION: Stable bilateral screening mammogram. Yearly follow-up mammogram recommended. (A) ASSESSMENT CATEGORY: BIRADS Category 1: Negative. A letter regarding these results will be sent to the patient by the facility within 30 days. Approximately 10% of breast cancers are not detected by mammography. A normal mammogram should not delay biopsy of a clinically suspicious abnormality. [id number] Electronically Signed: Jamaal Gonzales, at 8:48 EST , Service support ,
== END ==
PROVIDERS: Family Provider Family Medicine; PCP Family Medicine; Referring Provider Family Medicine; Visit Provider Family Medicine
DX: Z12.31 Encounter for screening mammogram for malignant neoplasm of breast (principal)
CPT/HCPCS: 77063; 77067

== ENCOUNTER → 2019-10-20 11:00 | Outpatient (CLI) | payer MEDICARE, SELFPAY ==
[2019-10-01 15:36] VITALS: BMI 25.5
== END ==
PROVIDERS: Family Provider Family Medicine; PCP Family Medicine; Referring Provider Nurse Practitioner Acute Care; Visit Provider Nurse Practitioner Acute Care
DX: G47.33 Obstructive sleep apnea (adult) (pediatric) (principal)
CPT/HCPCS: 98960; G0463

== ENCOUNTER 2020-01-16 12:05 | Emergency (ER) | payer MEDICARE, SELFPAY ==
[2019-12-30 06:33] VITALS: BMI 23.0
[2020-01-16 12:06] VITALS: BP 136/82; PULSE 72; RESP 18; TEMP 36.2; O2SAT 98; BMI 20.9
[2020-01-16] MEDS: oxyCODONE 5 MG Tablet PO (12:26)
[2020-01-16] MEDS: Ondansetron ODT 4 MG Tablet PO (12:26)
[2020-01-16] MEDS: Acetaminophen 500 MG Tablet 1000 MG PO (12:26)
--- NOTE | 2020-01-16 12:27 | RAD_ITS ---
STUDY: X-RAY - RIGHT KNEE REASON FOR EXAM: Female, 74 years old. knee pain 6 months, no injury TECHNIQUE: view(s) of the knee. COMPARISON: None. FINDINGS: Normal visualized distal femur. Normal visualized proximal tibia and fibula. Normal proximal tibiofibular articulation. There is mild narrowing in the medial femorotibial compartment. Normal lateral femorotibial compartment. Normal patellofemoral articulation. The soft tissue structures are unremarkable. RAD/Knee 4 or More Views IMPRESSION: Mild medial joint space narrowing. Otherwise unremarkable x-ray examination of the knee. Electronically Signed: Devon Taylor, at 12:52 EST Tel , Service support ,
--- NOTE | 2020-01-16 12:34 | ED.DCSUM_ITS ---
- ER Visit Summary Date of Service: 01/16/20 Chief Complaint: Right knee pain History of Present Illness: The patient is a [address] Jame De La Garza. She reports she has right knee pain again approximately month ago. She does not remember any specific injury. No fall, MVA, or change in activity. She reports it is a sharp pain that is 10 out of 10 at worst and 6 out of 10 currently. Is worsened by walking. She is taken Tylenol and iced it without relief. She denies any paresthesias distally. Review of systems: General: No fever, chills, cold sweats. Cardiovascular: No chest pain, palpitations. Respiratory: No cough, shortness of breath, dyspnea on exertion. Gastrointestinal: No abdominal pain, nausea, vomiting, diarrhea, melena, or hematochezia. Genitourinary: No dysuria, frequency, hematuria. Skin: No rash. Neuro: No headache, numbness, weakness. Physical Examination: Vitals: Stable. Afebrile. General: Well-nourished and well-developed. Head: Normocephalic atraumatic. Neck: Supple, no lymphadenopathy. No JVD. Nontender. Cardiovascular: Regular rate and rhythm. No murmurs. Respiratory: No respiratory distress. Clear to auscultation bilaterally. Abdominal: Soft, nontender, nondistended, normal bowel sounds. No guarding, rebound, or peritoneal signs. Back: Nontender. Extremities: Moderate tenderness to palpation with medial side of her right knee. Mild joint effusion. Pain, but no ligamentous instability with anterior/posterior drawer and medial/lateral stress. 2+ dorsalis pedis pulse. Skin: Normal color, no rash. Neurologic: Alert and oriented ?3. Cranial nerves II through XII are intact. Normal strength and sensation. Psych: Normal affect. Test Results: Clinical Impression(s) from Imaging Studies Knee X-Ray 01/16/20 12:27 IMPRESSION: Mild medial joint space narrowing. Otherwise unremarkable x-ray examination of the knee. Electronically Signed: Devon Taylor, at 12:52 EST Tel , Service support , Emergency Department Course and Treatment: Patient was treated with oxycodone and Tylenol. She took a dose of Eliquis this morning. I do not think arthrocentesis is in her best interest. Clinically I think that a meniscus injury is the most likely cause of her pain. Treatment Plan: Patient be discharged with Percocet and Colace. Instructed to follow-up with Dr. Carvajal in 3 to 5 days for another exam. Return to the emergency department for any worsening symptoms. Disposition: To home in improved and stable condition. Impression: 1. Right knee pain. This note was generated with [employer] dictation software. It may contain incorrect words, spelling, and punctuation that were not noted in review of the chart prior to signing ED Disposition - Plan for ED Patient: Disposition: Home or Assisted Living Instructions: KNEE PAIN, Uncertain Cause Prescriptions: Docusate Sodium [Colace] 100 mg PO DAILY #20 cap Prescription Printed Oxycodone HCl/Acetaminophen [Percocet 5/325] 1 tab PO Q6H PRN PRN 3 Days #12 tab PRN Reason: Pain Prescription Printed Ondansetron [Zofran Odt] 4 mg PO Q8H PRN PRN #10 tab PRN Reason: Nausea Prescription Printed Referrals: Cy Carvajal DO [STAFF PHYSICIAN] - 3-5 Days
== END 2020-01-16 13:32 | disposition home or self-care (01) ==
PROVIDERS: Emergency Provider Emergency Medicine; PCP Family Medicine
DX: M25.561 Pain in right knee (principal); D68.9 Coagulation defect, unspecified; I10 Essential (primary) hypertension; I25.10 Atherosclerotic heart disease of native coronary artery without angina pectoris; Z79.899 Other long term (current) drug therapy
CPT/HCPCS: 73564; 99283

== ENCOUNTER → 2020-03-15 10:49 | Outpatient (CLI) | payer MEDICARE, SELFPAY ==
[2020-03-15 13:05] LABS: Vitamin D,25 Hydroxy 44.6 ng/mL
[2020-03-15 13:08] LABS: AST(SGOT) 31 U/L (15-37); Alanine Aminotransfer ALT/SGPT 35 U/L (13-56); Albumin, Serum 3.6 g/dL (3.2-5.0); Alkaline Phosphatase 74 U/L (45-117); Bilirubin, Direct 0.18 mg/dL (0.00-0.30); Globulin 3.9 g/dL (2.2-4.2); Protein, Total 7.5 g/dL (6.4-8.2); T4 Free Direct 1.41 ng/dL (0.76-1.46)
[2020-03-15 13:15] LABS: Anion Gap 2 (5-15); BUN 15 mg/dL (7-18); BUN/Creat Ratio 18.6 RATIO (10-20); Calcium,Total 8.7 mg/dL (8.5-10.1); Chloride 107 mmol/L (98-107); EST Glomerular Filtration Rate 74 mL/min (>60); Est Glom Filt Rate - Afr Amer 89 mL/min (>60); Glucose 105 mg/dL (74-106); Potassium 3.9 mmol/L (3.5-5.1); Sodium Level 141 mmol/L (136-145); Thyroid Stim Hormone (TSH) 1.19 uIU/mL (0.358-3.74)
== END ==
PROVIDERS: Physician Assistant Medical; PCP Family Medicine; Referring Provider Family Medicine; Visit Provider Family Medicine
DX: M81.0 Age-related osteoporosis without current pathological fracture (principal); I48.92 Unspecified atrial flutter; E78.00 Pure hypercholesterolemia, unspecified; Z79.899 Other long term (current) drug therapy
CPT/HCPCS: 36415; 80048; 80076; 82306; 84439; 84443

== ENCOUNTER → 2020-06-08 11:45 | Outpatient (CLI) | payer MEDICARE, SELFPAY ==
[2020-06-08 11:14] VITALS: BMI 21.1
--- NOTE | 2020-06-08 11:52 | RAD_ITS ---
STUDY: X-RAY CHEST REASON FOR EXAM: Female, 75 years old. Previous open heart surgery. Routine physical. TECHNIQUE: PA and lateral views of the chest. COMPARISON: Chest, 12/09/2018. CT of the chest, 04/11/2016. FINDINGS: The lungs are well-expanded. There is increased density at both lung bases which may be due to overlying breast tissue. The more extreme interstitial markings and scarring seen on the previous study are not appreciated on the current exam. There is no demonstrated pleural abnormality. The heart is normal in size. There is bilateral hilar prominence unchanged from previous study. This is due to prominent pulmonary arteries. The mediastinum appears grossly normal and unchanged. There is atherosclerotic calcification of the aortic arch with tortuosity. There is demineralization of the osseous structures. Normal visualized ribs, clavicles, and shoulders. There is no demonstrated abnormality of the visualized soft tissue structures of the upper abdomen. RAD/Chest PA and Lateral IMPRESSION: 1. Minimal increased density at the lung bases. Question overlying breast tissue versus mild infiltrate. 2. No other change from the previous examination. Electronically Signed: Victorino River DO at 16:27 EDT Tel [phone], Service support ,
[2020-06-08 12:59] LABS: Cholesterol 213 mg/dL (200); High Density Lipoprotein 58 mg/dL; T4 Free Direct 1.52 ng/dL (0.76-1.46); Triglycerides 83 mg/dL; Very Low Density Lipoprotein 17 mg/dL (5-40)
== END ==
PROVIDERS: PCP Family Medicine; Referring Provider Internal Medicine Cardiovascular Disease; Visit Provider Internal Medicine Cardiovascular Disease
DX: E78.00 Pure hypercholesterolemia, unspecified (principal); I48.0 Paroxysmal atrial fibrillation; Q24.9 Congenital malformation of heart, unspecified; E78.2 Mixed hyperlipidemia; I10 Essential (primary) hypertension; Z79.899 Other long term (current) drug therapy
CPT/HCPCS: 36415; 71046; 80061; 84439; 84443

== ENCOUNTER → 2020-07-19 06:54 | Outpatient (CLI) | payer MEDICARE, SELFPAY ==
[2020-06-08 11:14] VITALS: BMI 21.1
--- NOTE | 2020-07-19 13:41 | PFT ---
INTRODUCTION: The patient is a 75-year-old female that presents for pulmonary function studies secondary to a diagnosis of high risk medication use. Respiratory therapy reports good patient effort. Bronchodilators were used during testing. INTERPRETATION: Forced expiration spirometry demonstrates no evidence of a large airways obstructive ventilatory defect. There was no significant response to aerosolized bronchodilators, based upon strict ATS criteria. Spirograms are of good quality and plateau normally. Body plethysmography was performed and reveals lung volumes to be within normal limits. Diffusing capacity by single breath CO is also within normal limits at 91% of predicted. IMPRESSION: Grossly normal pulmonary function studies.
== END ==
PROVIDERS: PCP Family Medicine; Referring Provider Internal Medicine Cardiovascular Disease; Visit Provider Internal Medicine Cardiovascular Disease
DX: I48.0 Paroxysmal atrial fibrillation (principal); Q24.9 Congenital malformation of heart, unspecified; E78.2 Mixed hyperlipidemia; I10 Essential (primary) hypertension; Z79.899 Other long term (current) drug therapy
CPT/HCPCS: 94060; 94726; 94729

== ENCOUNTER → 2020-09-06 13:31 | Outpatient (CLI) | payer MEDICARE, SELFPAY ==
[2020-06-08 11:14] VITALS: BMI 21.1
== END ==
PROVIDERS: PCP Family Medicine; Referring Provider Family Medicine; Visit Provider Family Medicine
DX: R30.0 Dysuria (principal)
CPT/HCPCS: 87077; 87086; 87088; 87186

== ENCOUNTER 2020-09-11 15:14 | Emergency (ER) | payer MEDICARE, SELFPAY ==
[2020-06-08 11:14] VITALS: BMI 21.1
[2020-09-11 15:15] VITALS: BP 136/80; PULSE 79; RESP 26; TEMP 36.7; O2SAT 97; BMI 21.1
[2020-09-11 15:19] VITALS: BP 136/80; PULSE 79; RESP 26; TEMP 36.7; O2SAT 97
--- NOTE | 2020-09-11 15:56 | CT_ITS ---
STUDY: CT ABDOMEN AND PELVIS WITHOUT CONTRAST REASON FOR EXAM: Female, 75 years old. ABD PAIN W/ NAUSEA X 3 DAYS, UTI, WEIGHT LOSS RADIATION DOSAGE (If Supplied By Facility): CTDIvol = ( 12.51 ) mGy, DLP = ( 404.15 ) mGycm TECHNIQUE: Transaxial images were obtained from the dome of the diaphragm to the symphysis pubis without oral contrast, and without intravenous contrast. Sagittal and coronal images were reconstructed. Individualized dose optimization techniques were used for this CT. COMPARISON: 09/30/2017 FINDINGS: The visualized lung bases are unremarkable. Stable left pericardial calcifications. Normal liver. Cholecystectomy. Normal spleen. Normal pancreas. Normal bilateral adrenal glands. Multiple nonobstructing right renal stones. Normal left kidney. Normal visualized stomach. Normal small intestine. Normal colon. Appendectomy. Normal abdominal aorta. Normal inferior vena cava. Normal retroperitoneum. Normal urinary bladder. Normal abdominal wall. Normal osseous structures. CT/Abdomen/Pelvis W IV Cont ONLY IMPRESSION: No evidence of acute intestinal pathology or acute obstructive uropathy. No visible mass or adenopathy. Electronically Signed: Taj Dominguez MD at 18:05 EST Tel , Service support ,
--- NOTE | 2020-09-11 15:58 | ED.VISSUMM ---
- ER Visit Summary Date of Service: 09/11/20 Chief Complaint: Lower abdominal pain with nausea and vomiting History of Present Illness: The patient is a 75 F this with a UTI this past week by her primary care physician and was placed on oral antibiotics. Says she is developed lower abdominal pain with nausea vomiting. She also states she has some mild constipation. She denies any fever or chills. Denies any current dysuria. She has had multiple prior abdominal surgeries including appendectomy, cholecystectomy and hysterectomy. She is currently on the blood thinner Eliquis. She also has a history of hypertension, anxiety and A. fib. Physical Examination: Elderly female no acute distress vital signs stable afebrile. She does not look septic or toxic. H EENT exam dry mucous membranes. Neck nontender. Lungs clear to auscultation. Heart regular rhythm no murmur. Abdomen soft. Nondistended. Normal bowel sounds. Minimal suprapubic tenderness. No organomegaly or masses. No pulsatile mass. No distention no signs of obstruction. Patient is moving all 4 extremities. Calves are nontender without edema. Neurologically she is awake and alert with no focal motor deficits. Test Results: CBC white count of 6. Hemoglobin 13. Platelets slightly low 119,000. Chemistries normal normal creatinine gap. Liver enzymes ALT and AST slightly elevated. Lipase normal. Urinalysis normal no signs of infection. Scan of the abdomen and pelvis with IV contrast only showed right-sided renal stones but otherwise no acute pathology. No diverticulitis. No perforation or abscess. No other causes for her discomfort. Repeat exam the patient is doing well at 7:53 PM. Abdomen is benign. She and I went over all of her test results she is comfortably discharged home. And follow-up with her primary care physician. Emergency Department Course and Treatment: Patient with recent UTI on antibiotic now with nausea vomiting and suprapubic abdominal pain. Basically a benign exam with minimal tenderness. She undergo a CT of her abdomen pelvis with labs. She will receive IV fluids and IV Zofran for nausea and dehydration. Treatment Plan: Follow-up with your doctor. Finish her antibiotic for her UTI. Tylenol for any pain. Return if worse. Disposition: Discharge Impression: Acute abdominal pain with nausea and vomiting of uncertain etiology Acute dehydration History of prior appendectomy, cholecystectomy and hysterectomy Status post recent UTI This note was generated with [employer] software. It may contain incorrect words, spelling, and punctuation that were not noted in review of the chart prior to signing ED Disposition - Plan for ED Patient: Referrals: Jame De La Garza MD [Primary Care Provider] -
[2020-09-11] MEDS: Ondansetron 4 MG/2 ML Vial IV (16:16)
[2020-09-11] MEDS: 0.9% Normal Saline 1,000 ML 1000 ML IV (16:16)
[2020-09-11 16:26] LABS: Absolute Lymphocyte Count 0.64 X10^3/uL (0.83-4.51); Absolute Neutrophil Count 5.1 X10^3/uL (2.0-7.7); Basophil# 0.03 X10^3/uL; Basophil% 0.5 % (0-1); Eosinophil# 0.02 X10^3/uL; Eosinophils% 0.3 % (0-5); Hematocrit 43.2 % (37-47); Hemoglobin 13.8 g/dL (12.0-15.0); Lymphocyte # 0.64 X10^3/ul (4.0); Lymphocyte % 10.3 % (19-41); Mean Corp Hgb Conc 31.9 g/dL (32-36); Mean Corpuscular Hgb 31.3 pg (27.0-32.0); Mean Platelet Vol. 10.6 fl (6.2-12.0); Monocyte# 0.44 X10^3/uL; Monocyte% 7.1 % (0-10); NRBC Flagged by Analyzer 0 % (0-5); Neutrophil # 5.08 X10^3/uL (2.7-7.7); Neutrophil % 81.5 % (47-70); POSITIVE COUNT YES; Platelet Count 119 K/mm3 (150-450); RBC Distribution Width CV 12.6 % (11.6-14.6); RBC Distribution Width SD 45.2 fl (35.1-43.9); Red Blood Count 4.41 M/mm3 (4.2-5.4); White Blood Count 6.2 K/mm3 (4.4-11.0)
[2020-09-11 16:33] LABS: Bacteria 0 SEEN /hpf (None Seen); Mucous, Urine 0 SEEN /hpf (<or=2+); Red Blood Cells-Urine 0 SEEN /hpf (0-5)
[2020-09-11 16:34] LABS: Differential Indicated SCAN CRITERIA MET
[2020-09-11 16:39] LABS: AST(SGOT) 152 U/L (15-37); Alanine Aminotransfer ALT/SGPT 150 U/L (13-56); Albumin, Serum 3.5 g/dL (3.2-5.0); Alkaline Phosphatase 71 U/L (45-117); Anion Gap 6 (5-15); BUN 17 mg/dL (7-18); Bilirubin, Direct 0.18 mg/dL (0.00-0.30); Calcium,Total 9.1 mg/dL (8.5-10.1); Chloride 111 mmol/L (98-107); Creatinine, Serum 1.06 mg/dL (0.55-1.02); EST Glomerular Filtration Rate 54 mL/min (>60); Est Glom Filt Rate - Afr Amer 65 mL/min (>60); Globulin 3.9 g/dL (2.2-4.2); Glucose 123 mg/dL (74-106); Lipase 333 U/L (73-393); Potassium 4.3 mmol/L (3.5-5.1); Protein, Total 7.4 g/dL (6.4-8.2); Sodium Level 144 mmol/L (136-145)
[2020-09-11 16:50] LABS: Color, Urine Yellow (Yellow); Glucose, Dipstick Normal (Normal); Ketone-Dipstick 5 mg/dl (Negative); Leukocyte Esterase-Dipstick 25 /ul (Negative); Nitrite-Dipstick Negative (Negative); Occult Blood-Urine 10 /ul (Negative); Protein-Dipstick 30 mg/dl (Negative); Urine Clarity Cloudy (Clear); Urine Urobilinogen 1 mg/dl (Normal); Urine pH 6.5 (5.0 - 8.0)
[2020-09-11 16:54] LABS: Urine Bilirubin Dipstick 1 mg/dL (Negative)
[2020-09-11 16:58] LABS: Squamous Epithelial Cells - UA 0-5 SEEN /hpf (5-10); White Blood Cells 0-5 SEEN /hpf (0-5)
[2020-09-11 16:59] LABS: Amorphous Sediment 2+; Calcium Oxalate Crystals Ur 1+ /hpf (<or=2+)
[2020-09-11 17:00] LABS: Hyaline Cast 0-5 SEEN /lpf (0-5)
[2020-09-11 17:36] VITALS: BP 132/77; PULSE 65; RESP 14; TEMP 36.9; O2SAT 98
[2020-09-11 19:26] VITALS: BP 141/74; PULSE 67; RESP 22; TEMP 36.5; O2SAT 94
--- NOTE | 2020-09-11 19:58 | ED.DEP ---
ED Disposition - Plan for ED Patient: Disposition: Home or Assisted Living Instructions: ED Abdominal Pain Unkn Cause Fem Referrals: Jame De La Garza MD [Primary Care Provider] - 3-5 Days if not improving Additional Instructions: Tylenol for pain. Follow-up with your doctor if not improving. Your labs tonight, urinalysis and CAT scan all look good.
== END 2020-09-11 20:12 | disposition home or self-care (01) ==
PROVIDERS: Emergency Provider Emergency Medicine; PCP Family Medicine
DX: R10.30 Lower abdominal pain, unspecified (principal); R11.2 Nausea with vomiting, unspecified; E86.0 Dehydration; Z87.440 Personal history of urinary (tract) infections
CPT/HCPCS: 74177; 80048; 80076; 81001; 83690; 85025; 96374; 99283; J7030; Q9967; J2405

== ENCOUNTER → 2020-09-20 14:40 | Outpatient (CLI) | payer MEDICARE, SELFPAY ==
[2020-09-11 15:15] VITALS: BMI 21.1
--- NOTE | 2020-09-20 14:44 | RAD_ITS ---
HISTORY: interstitial lung disease. patient states she has no energy ADDITIONAL HISTORY: None provided. COMPARISON: 06/08/2020. CTA 04/11/2016 EXAMINATION/TECHNIQUE: XR Chest 2 Views Number of images including paperwork: 2 FINDINGS: LUNGS AND PLEURA: No dense consolidation. Blunting of the right costophrenic angle compatible with small pleural effusion versus pleural scarring. CARDIAC SILHOUETTE: Stable. Pericardial calcifications along the left heart appear similar. MEDIASTINUM AND RAOUL: Pulmonary arterial enlargement, greater on the left, and appears unchanged. UPPER ABDOMEN: Unremarkable. SKELETON AND SOFT TISSUES: No acute findings. Degenerative changes. OTHER DEVICES AND HARDWARE: None. RAD/Chest PA and Lateral IMPRESSION: Small right pleural effusion versus pleural scarring. at [id number] Reported and signed by: Yue Meza MD Electronically Signed: Yue Meza MD at 6:47 EST Tel , Service support ,
[2020-09-20 18:05] LABS: Absolute Lymphocyte Count 1.03 X10^3/uL (0.83-4.51); Basophil# 0.04 X10^3/uL; Basophil% 0.7 % (0-1); Eosinophil# 0.02 X10^3/uL; Eosinophils% 0.4 % (0-5); Hematocrit 45.2 % (37-47); Lymphocyte # 1.03 X10^3/ul (4.0); Lymphocyte % 18.4 % (19-41); Mean Corpuscular Hgb 30.5 pg (27.0-32.0); Mean Corpuscular Volume 98.5 fL (81-99); Mean Platelet Vol. 11.1 fl (6.2-12.0); Monocyte# 0.53 X10^3/uL; Monocyte% 9.4 % (0-10); NRBC Flagged by Analyzer 0 % (0-5); Neutrophil # 3.97 X10^3/uL (2.7-7.7); Neutrophil % 70.7 % (47-70); Platelet Count 158 K/mm3 (150-450); RBC Distribution Width CV 12.8 % (11.6-14.6); RBC Distribution Width SD 46.4 fl (35.1-43.9); Red Blood Count 4.59 M/mm3 (4.2-5.4); White Blood Count 5.6 K/mm3 (4.4-11.0)
[2020-09-20 18:24] LABS: Erythrocyte Sedimentation Rate 4 mm/hr (0-30)
[2020-09-20 18:32] LABS: ALB/GLOB Ratio 0.9 RATIO (0.9-2.4); AST(SGOT) 110 U/L (15-37); Alanine Aminotransfer ALT/SGPT 183 U/L (13-56); Albumin, Serum 3.6 g/dL (3.2-5.0); Alkaline Phosphatase 78 U/L (45-117); Anion Gap 4 (5-15); BUN 15 mg/dL (7-18); BUN/Creat Ratio 13.6 RATIO (10-20); Bilirubin, Direct 0.19 mg/dL (0.00-0.30); Calcium,Total 9.3 mg/dL (8.5-10.1); Chloride 104 mmol/L (98-107); EST Glomerular Filtration Rate 51 mL/min (>60); Est Glom Filt Rate - Afr Amer 62 mL/min (>60); Globulin 3.9 g/dL (2.2-4.2); Glucose 87 mg/dL (74-106); Potassium 3.9 mmol/L (3.5-5.1); Protein, Total 7.5 g/dL (6.4-8.2); Sodium Level 140 mmol/L (136-145)
== END ==
PROVIDERS: PCP Family Medicine; Referring Provider Family Medicine; Visit Provider Family Medicine
DX: J84.9 Interstitial pulmonary disease, unspecified (principal)
CPT/HCPCS: 36415; 71046; 80053; 82248; 85025; 85652

== ENCOUNTER → 2020-10-14 18:01 | Outpatient (CLI) | payer MEDICARE, SELFPAY | PROVIDERS: PCP Family Medicine; Referring Provider Internal Medicine Gastroenterology; Visit Provider Internal Medicine Gastroenterology | DX: Z11.59 Encounter for screening for other viral diseases (principal) | CPT/HCPCS: 87635; C9803; U0003 ==

== ENCOUNTER → 2021-07-03 08:05 | Outpatient (CLI) | payer MEDICARE, SELFPAY ==
[2020-12-30 13:33] VITALS: BMI 22.6
--- NOTE | 2021-07-03 08:26 | EKG12_ITS ---
Test Reason : PRE-OP Blood Pressure : / mmHG Vent. Rate : 064 BPM Atrial Rate : 064 BPM P-R Int : 138 ms QRS Dur : 080 ms QT Int : 466 ms P-R-T Axes : 026 036 067 degrees QTc Int : 480 ms Normal sinus rhythm Normal ECG Confirmed by ALEJANDRA GLOVER, LUKAS ([id number]), video tape editor KRISTINE DURAN ([id number]) on 07/04/2021 7:57:31 AM Referred By: Pranav Colbert Confirmed By:LUKAS ROBERTS MD
[2021-07-03 08:46] LABS: Hematocrit 41.7 % (37-47); Hemoglobin 13.4 g/dL (12.0-15.0); Mean Corp Hgb Conc 32.1 g/dL (32-36); Mean Corpuscular Hgb 31.7 pg (27.0-32.0); Mean Corpuscular Volume 98.6 fL (81-99); Mean Platelet Vol. 10.5 fl (6.2-12.0); Platelet Count 119 K/mm3 (150-450); RBC Distribution Width CV 13.5 % (11.6-14.6); Red Blood Count 4.23 M/mm3 (4.2-5.4); White Blood Count 5.1 K/mm3 (4.4-11.0)
[2021-07-03 09:11] LABS: Anion Gap 1 (5-15); BUN 15 mg/dL (7-18); BUN/Creat Ratio 19.8 RATIO (10-20); Calcium,Total 8.8 mg/dL (8.5-10.1); Chloride 107 mmol/L (98-107); Creatinine, Serum 0.76 mg/dL (0.55-1.02); EST Glomerular Filtration Rate 79 mL/min (>60); Est Glom Filt Rate - Afr Amer 95 mL/min (>60); Glucose 105 mg/dL (74-106); Potassium 4.2 mmol/L (3.5-5.1); Sodium Level 142 mmol/L (136-145)
== END ==
PROVIDERS: PCP Family Medicine; Referring Provider Physician Assistant; Visit Provider Physician Assistant
DX: Z01.818 Encounter for other preprocedural examination (principal)
CPT/HCPCS: 36415; 80048; 85027; 93005

== ENCOUNTER → 2021-08-03 13:02 | Outpatient (CLI) | payer MEDICARE, SELFPAY | PROVIDERS: PCP Family Medicine; Visit Provider Nurse Practitioner Acute Care | DX: G47.33 Obstructive sleep apnea (adult) (pediatric) (principal) | CPT/HCPCS: 98960; G0463 ==

== ENCOUNTER → 2021-08-15 15:36 | Outpatient (CLI) | payer MEDICARE, SELFPAY ==
[2021-08-15 17:26] LABS: Absolute Lymphocyte Count 0.97 X10^3/uL (0.83-4.51); Absolute Neutrophil Count 3.5 X10^3/uL (2.0-7.7); Basophil# 0.04 X10^3/uL; Basophil% 0.8 % (0-1); Eosinophil# 0.06 X10^3/uL; Eosinophils% 1.2 % (0-5); Hematocrit 41.1 % (37-47); Hemoglobin 13.3 g/dL (12.0-15.0); Lymphocyte # 0.97 X10^3/ul (0.83-4.51); Lymphocyte % 19.3 % (19-41); Mean Corp Hgb Conc 32.4 g/dL (32-36); Mean Corpuscular Hgb 31.3 pg (27.0-32.0); Mean Corpuscular Volume 96.7 fL (81-99); Mean Platelet Vol. 11.5 fl (6.2-12.0); Monocyte# 0.43 X10^3/uL; Monocyte% 8.6 % (0-10); NRBC Flagged by Analyzer 0 % (0-5); Neutrophil # 3.49 X10^3/uL (2.7-7.7); Neutrophil % 69.5 % (47-70); Platelet Count 118 K/mm3 (150-450); RBC Distribution Width CV 13.4 % (11.6-14.6); Red Blood Count 4.25 M/mm3 (4.2-5.4)
[2021-08-15 18:15] LABS: Anion Gap 7 (5-15); BUN 19 mg/dL (7-18); BUN/Creat Ratio 23.9 RATIO (10-20); Calcium,Total 9.3 mg/dL (8.5-10.1); Chloride 108 mmol/L (98-107); EST Glomerular Filtration Rate 75 mL/min (>60); Est Glom Filt Rate - Afr Amer 90 mL/min (>60); Glucose 77 mg/dL (74-106); Potassium 3.8 mmol/L (3.5-5.1); Sodium Level 142 mmol/L (136-145)
== END ==
PROVIDERS: PCP Family Medicine; Visit Provider Physician Assistant
DX: Z01.818 Encounter for other preprocedural examination (principal)
CPT/HCPCS: 36415; 80048; 85025

== ENCOUNTER 2021-09-11 05:37 | Day surgery (SDC) | payer MEDICARE, SELFPAY ==
[2021-09-11 06:15] VITALS: BP 162/72; PULSE 70; RESP 18; TEMP 36.5; O2SAT 99; BMI 23.0
[2021-09-11] MEDS: Lactated Ringers 1,000 ML 100 ML IV (06:25)
[2021-09-11] MEDS: Cefazolin 2 GM in 0.9% Normal Saline 100 ML IV (07:38)
[2021-09-11] MEDS: Epinephrine (1 mg/ml) 1 MG/ML VIAL (07:52)
[2021-09-11] MEDS: Lidocaine 1% /Epi 1:100 (20ml) 20 ML Vial (08:05)
[2021-09-11 08:24] VITALS: BP 161/89; BP 162/72; PULSE 72; RESP 14; TEMP 36.1; O2SAT 93
[2021-09-11 08:30] VITALS: BP 152/80; BP 162/72; PULSE 73; RESP 18; O2SAT 93
[2021-09-11 08:45] VITALS: BP 141/72; BP 162/72; PULSE 66; RESP 18; TEMP 36.1; O2SAT 100
[2021-09-11 08:46] VITALS: BP 141/72; BP 162/72; PULSE 68; RESP 16; O2SAT 93
[2021-09-11 09:40] VITALS: BP 142/80; BP 162/72; PULSE 78; RESP 16; TEMP 36.6; O2SAT 98
--- NOTE | 2021-09-11 09:53 | PCM.OPRPT ---
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 Description of Procedure: With appropriate informed consent, the patient was taken to the operative suite. After induction of general and regional anesthesia and administration of the preoperative antibiotics, the well leg was fitted with BHUMI and SCDs and well padded. The right knee was placed into the arthroscopy leg singh, prepped and draped sterilely. The standard arthroscopy portals were pre-injected with 0.5% Marcaine with epinephrine. A lateral portal was established. The diagnostic arthroscopy was begun. The patellofemoral joint revealed no significant cartilage damage. The medial compartment was entered and the medial portal was established. A probe was utilized to probe the medial meniscus. There was a posterior horn, multi-layered MMT and Grade 3 and 4 chondromalacia of the medial femoral condyle and medial tibial plateau. ACL and PCL were probed and intact. The lateral compartment was entered. There was no significant pathology. Subsequently, a partial [ medial ] meniscectomy was performed using a combination of straight and angled basket punches. The meniscotome was then utilized to remove the fragments of cartilage and then to smooth the remainder of the meniscus to a firm and stable rim. A shaver was used to perform a chondroplasty on the [ MFC and MTP ] to smooth the roughened surface cartilage and remove any delaminated cartilage. Thereafter, the arthroscopy instruments and fluid were removed. The portals were closed with interrupted sutures of 4-0 nylon followed by application of a sterile well-padded dressing and KELECHI wrap. The patient was extubated and transferred to the PACU in stable and satisfactory condition. Cy Carvajal DO Surgeon: Cy Carvajal applied marine physics professor: None Type of Anesthesia: General Anesthesiologist: Jarrett Browning Admit VTE Documentation VTE Present on Admission: No VTE Mechan Device Prophylaxis: SCD's and Thigh High BHUMI Hose VTE Pharm Prophylaxis ordered?: Yes
== END 2021-09-11 10:02 | disposition home or self-care (01) ==
LOC: SDC 05:37 → AC 05:38
PROVIDERS: PCP Family Medicine; Referring Provider Orthopaedic Surgery; Visit Provider Orthopaedic Surgery
PROC: (CPT 29870; principal; 2021-09-11 07:10)
DX: S83.241A Other tear of medial meniscus, current injury, right knee, initial encounter (principal); X50.1XXA Overexertion from prolonged static or awkward postures, initial encounter; Y93.9 Activity, unspecified; Y92.9 Unspecified place or not applicable; I25.10 Atherosclerotic heart disease of native coronary artery without angina pectoris; I10 Essential (primary) hypertension; F32.A Depression, unspecified; Z79.01 Long term (current) use of 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; Q24.9 Congenital malformation of heart, unspecified; I48.92 Unspecified atrial flutter; K21.9 Gastro-esophageal reflux disease without esophagitis; G47.33 Obstructive sleep apnea (adult) (pediatric); I48.0 Paroxysmal atrial fibrillation; I27.20 Pulmonary hypertension, unspecified; Z79.899 Other long term (current) drug therapy; E78.2 Mixed hyperlipidemia; M06.9 Rheumatoid arthritis, unspecified
CPT/HCPCS: 01400; 29881; J7120; J2405

== ENCOUNTER → 2021-10-09 15:44 | Outpatient (CLI) | payer MEDICARE, SELFPAY ==
--- NOTE | 2021-10-09 15:46 | RAD_ITS ---
STUDY: XR Chest 2 Views 10/09/2021 3:53 PM REASON FOR EXAM: Female, 76 years old. CHEST PAIN amiodarone therapy COMPARISON: 11/20/2019 TECHNIQUE: XR Chest 2 Views FINDINGS: There is a right pleural effusion. Right lower lobe infiltrate or atelectasis. Enlarged heart size. Normal mediastinum. Normal grant. Prominent appearing increased interstitial lung markings. Normal visualized pulmonary arteries. There is atherosclerotic calcification of the aortic arch with tortuosity. There are diffuse degenerative changes of the visualized thoracic spine. There is degenerative osteoarthritis of the bilateral shoulders. There is no demonstrated abnormality of the visualized soft tissue structures of the upper abdomen. RAD/Chest PA and Lateral IMPRESSION: There is a right pleural effusion. Right lower lobe infiltrate or atelectasis. Electronically Signed: Parker Hunt MD at 16:50 EST , Service support ,
[2021-10-09 17:19] LABS: AST(SGOT) 39 U/L (15-37); Alanine Aminotransfer ALT/SGPT 38 U/L (13-56); Albumin, Serum 3.4 g/dL (3.2-5.0); Alkaline Phosphatase 87 U/L (45-117); Bilirubin, Direct 0.18 mg/dL (0.00-0.30); Cholesterol 189 mg/dL (200); Globulin 3.6 g/dL (2.2-4.2); High Density Lipoprotein 53 mg/dL; T4 Free Direct 1.34 ng/dL (0.76-1.46); Thyroid Stim Hormone (TSH) 1.75 uIU/mL (0.358-3.74); Triglycerides 81 mg/dL; Very Low Density Lipoprotein 16 mg/dL (5-40)
== END ==
PROVIDERS: PCP Family Medicine; Referring Provider Internal Medicine Cardiovascular Disease; Visit Provider Internal Medicine Cardiovascular Disease
DX: R07.89 Other chest pain (principal); E78.2 Mixed hyperlipidemia; I48.0 Paroxysmal atrial fibrillation; I51.7 Cardiomegaly; Z79.899 Other long term (current) drug therapy
CPT/HCPCS: 36415; 71046; 80061; 80076; 84439; 84443

== ENCOUNTER 2022-01-10 15:06 | Outpatient (CLI) | payer MEDICARE, SELFPAY ==
[2022-01-10 17:49] LABS: Absolute Lymphocyte Count 0.99 X10^3/uL (0.83-4.51); Absolute Neutrophil Count 2.5 X10^3/uL (2.0-7.7); Basophil# 0.02 X10^3/uL; Basophil% 0.5 % (0-1); Eosinophil# 0.04 X10^3/uL; Hematocrit 42.5 % (37-47); Hemoglobin 14.1 g/dL (12.0-15.0); Lymphocyte # 0.99 X10^3/ul (0.83-4.51); Mean Corp Hgb Conc 33.2 g/dL (32-36); Mean Corpuscular Hgb 31.3 pg (27.0-32.0); Mean Corpuscular Volume 94.2 fL (81-99); Mean Platelet Vol. 11.1 fl (6.2-12.0); Monocyte# 0.38 X10^3/uL; Monocyte% 9.6 % (0-10); NRBC Flagged by Analyzer 0 % (0-5); Neutrophil # 2.51 X10^3/uL (2.7-7.7); Neutrophil % 63.4 % (47-70); Platelet Count 114 K/mm3 (150-450); RBC Distribution Width SD 45.2 fl (35.1-43.9); Red Blood Count 4.51 M/mm3 (4.2-5.4)
[2022-01-10 17:51] LABS: Erythrocyte Sedimentation Rate 7 mm/hr (0-30)
[2022-01-10 18:08] LABS: ALB/GLOB Ratio 0.9 RATIO (0.9-2.4); AST(SGOT) 48 U/L (15-37); Alanine Aminotransfer ALT/SGPT 51 U/L (13-56); Albumin, Serum 3.4 g/dL (3.2-5.0); Alkaline Phosphatase 70 U/L (45-117); Anion Gap 3 (5-15); BUN 16 mg/dL (7-18); CRP < 2.90 mg/L (0.0-3.0); Calcium,Total 8.8 mg/dL (8.5-10.1); Chloride 104 mmol/L (98-107); Creatinine, Serum 0.64 mg/dL (0.55-1.02); EST Glomerular Filtration Rate 96 mL/min (>60); Est Glom Filt Rate - Afr Amer 116 mL/min (>60); Globulin 3.7 g/dL (2.2-4.2); Glucose 85 mg/dL (74-106); Potassium 4.1 mmol/L (3.5-5.1); Protein, Total 7.1 g/dL (6.4-8.2); Sodium Level 139 mmol/L (136-145)
== END 2022-01-10 23:59 | disposition home or self-care (01) ==
LOC: LAB 15:07
PROVIDERS: PCP Family Medicine; Referring Provider Family Medicine; Visit Provider Family Medicine
DX: J01.90 Acute sinusitis, unspecified (principal)
CPT/HCPCS: 36415; 80053; 85025; 85652; 86140

== ENCOUNTER 2022-02-12 06:51 | Outpatient (CLI) | payer MEDICARE, SELFPAY ==
--- NOTE | 2022-02-12 06:54 | CT_ITS ---
STUDY: CT MAXILLOFACIAL SINUSES REASON FOR EXAM: Female, 76 years old. ACUTE SINUSITIS RADIATION DOSAGE (If Supplied By Facility): CTDIvol = ( 33.06 ) mGy, DLP = ( 701.62 ) mGycm TECHNIQUE: The patient was scanned in a multi detector CT scanner. High resolution axial imaging was performed without the administration of intravenous contrast material. Sagittal and coronal images were reconstructed. Individualized dose optimization techniques were used for this CT. COMPARISON: None. FINDINGS: FRONTAL SINUSES: Normal aeration, without mucosal inflammatory disease. ETHMOIDAL SINUSES: Normal aeration, without mucosal inflammatory disease. MAXILLARY SINUSES: Small incidental retention cyst at the base of the right maxillary antrum. No mucosal thickening or air-fluid levels. SPHENOIDAL SINUSES: Normal aeration, without mucosal inflammatory disease. Nonspecific fluid opacifies a few of the right mastoid air cells. There is nonpneumatization of the inferior mastoid air cells on both sides, greater on the right. No mastoid septal destruction is seen to indicate coalescent mastoiditis. No fluid is seen about the middle ear ossicles. There is been previous optic surgery. The globes, optic nerves and extraocular muscles are symmetric. No intraorbital mass. The inferior nasal turbinates are hypertrophied. There is a minimal andrew bullosa on the left. No turbinate paradoxical curvature. Nasal septum is midline. There is slight lateral deviation of both uncinate processes with secondary narrowing of the ethmoidal infundibula. Epiglottis is normal in size. Adenoids and palatine tonsils mildly prominent. Parotid glands are symmetric. No cervical adenopathy is visualized on this nonenhanced scan. Upper cervical spine is unremarkable except for facet arthritis. CT/Sinus/Facial Bone IMPRESSION: No findings of acute or chronic sinusitis identified. Electronically Signed: Diego Johnson MD at 8:00 EDT ,
== END 2022-02-12 23:59 | disposition home or self-care (01) ==
LOC: CT 06:52
PROVIDERS: PCP Family Medicine; Referring Provider Family Medicine; Visit Provider Family Medicine
DX: J01.90 Acute sinusitis, unspecified (principal)
CPT/HCPCS: 70486

== ENCOUNTER 2022-02-13 16:40 | Outpatient (CLI) | payer MEDICARE, SELFPAY ==
[2022-02-13 16:43] LABS: Mucous, Urine 0 SEEN /hpf (<or=2+); Squamous Epithelial Cells - UA 0 SEEN /hpf (5-10); White Blood Cells 0 SEEN /hpf (0-5)
[2022-02-13 17:52] LABS: Color, Urine Brown (Yellow); Glucose, Dipstick Normal (Normal); Ketone-Dipstick 5 mg/dl (Negative); Leukocyte Esterase-Dipstick 25 /ul (Negative); Nitrite-Dipstick Negative (Negative); Occult Blood-Urine 250 /ul (Negative); Protein-Dipstick 100 mg/dl (Negative); Urine Bilirubin Dipstick Negative (Negative); Urine Clarity Cloudy (Clear); Urine Urobilinogen 1 mg/dl (Normal); Urine pH 6.5 (5.0 - 8.0)
[2022-02-13 18:03] LABS: Red Blood Cells-Urine > 100 SEEN /hpf (0-5)
[2022-02-13 18:04] LABS: Bacteria 1+ /hpf (None Seen)
[2022-02-13 18:05] LABS: Calcium Oxalate Crystals Ur 1+ /hpf (<or=2+)
== END 2022-02-13 23:59 | disposition home or self-care (01) ==
LOC: MFPLAB 16:41
PROVIDERS: PCP Family Medicine; Referring Provider Family Medicine; Visit Provider Family Medicine
DX: R31.9 Hematuria, unspecified (principal)
CPT/HCPCS: 81001; 87077; 87086; 87088; 87186

== ENCOUNTER → 2022-03-07 | Outpatient (CLI) | payer MEDICARE, SELFPAY | END | disposition home or self-care (01) | PROVIDERS: PCP Family Medicine; Referring Provider Family Medicine; Visit Provider Family Medicine | DX: R31.9 Hematuria, unspecified (principal) | CPT/HCPCS: 87086; 87088 ==

== ENCOUNTER → 2022-03-21 | Outpatient (CLI) | payer MEDICARE, SELFPAY ==
--- NOTE | 2022-03-21 10:51 | BD_ITS ---
STUDY: DUAL ENERGY X-RAY ABSORPTIOMETRY / DXA REASON FOR EXAM: Female, 76 years old. 733.00OsteoporosisBONE DENSITY REASON FOR EXAM TECHNIQUE: Bone Mineral Density (BMD) measurements of lumbar spine and bilateral hips were obtained. COMPARISON: Comparison is made with prior study 08/27/2018. FINDINGS: Lumbar Spine (L1-L4): g/cm2 (0.799) / T-score (-2.5) / Z-score (0.1) Findings are suggestive of osteopenia with a high fracture risk. Left Femur Total: g/cm2 (0.707) / T-score (-1.9) / Z-score (0.0) Left Femoral Neck: g/cm2 (0.626) / T-score (-2.0) / Z-score (0.2) Right Femur Total: g/cm2 (0.726) / T-score (-1.8) / Z-score (0.1) Right Femoral Neck: g/cm2 (0.584) / T-score (-2.4) / Z-score (-0.2) The T-Scores on the most recent prior examination were: Lumbar Spine (L1-L4): There has been improvement of bone density since the previous examination. Left Femur Total: which represents a worsening of 1.6%. Right Femur Total: which represents an improvement of 4.2%. BD/Dexa Bone Density Study IMPRESSION: The patient is considered osteopenic as outlined below according to World Aravind Organization (WHO) criteria with a high fracture risk. There has been improvement of bone density since the previous examination. Reference Information: The T-score is the number of standard deviations above or below the standard which is normal for young adults at their peak bone mineral density. The World Health Organization (WHO) interprets the T-scores as follows: Above -1 Normal bone density Between -1 and -2.5 Osteopenia Equal to / or below -2.5 Osteoporosis As a practical clinical guideline, osteopenia may be graded as follows: Mild -1 through -1.5 Moderate -1.6 through -2.0 Severe -2.1 through -2.4 The Z-score is the number of standard deviations above or below age-matched controls. A Z-score of less than -1.5 would be considered abnormal. References: 1. NIH Osteoporosis and Related Bone Diseases www osteo.org 2. International Society for Clinical Densitometry www iscd.org 3. National Osteoporosis Foundation www nof.org Electronically Signed: Jamaal Gonzales MD at 15:32 EDT ,
== END | disposition home or self-care (01) ==
LOC: OPBD 10:32
PROVIDERS: PCP Family Medicine; Visit Provider Family Medicine
DX: M81.0 Age-related osteoporosis without current pathological fracture (principal)
CPT/HCPCS: 77080

== ENCOUNTER → 2022-04-19 | Outpatient (CLI) | payer MEDICARE, SELFPAY | END | disposition home or self-care (01) | PROVIDERS: PCP Family Medicine; Referring Provider Family Medicine; Visit Provider Family Medicine | DX: N39.0 Urinary tract infection, site not specified (principal) | CPT/HCPCS: 87086; 87088; 87186 ==

== ENCOUNTER → 2022-05-17 | Outpatient (CLI) | payer MEDICARE, SELFPAY ==
[2022-05-17 10:22] LABS: Absolute Lymphocyte Count 0.97 X10^3/uL (0.83-4.51); Basophil# 0.02 X10^3/uL; Basophil% 0.5 % (0-1); Eosinophil# 0.08 X10^3/uL; Eosinophils% 1.8 % (0-5); Hematocrit 41.4 % (37-47); Lymphocyte # 0.97 X10^3/ul (0.83-4.51); Lymphocyte % 21.9 % (19-41); Mean Corp Hgb Conc 31.4 g/dL (32-36); Mean Corpuscular Hgb 30.4 pg (27.0-32.0); Mean Platelet Vol. 11.1 fl (6.2-12.0); Monocyte# 0.39 X10^3/uL; Monocyte% 8.8 % (0-10); NRBC Flagged by Analyzer 0 % (0-5); Neutrophil # 2.95 X10^3/uL (2.7-7.7); Neutrophil % 66.5 % (47-70); Platelet Count 106 K/mm3 (150-450); RBC Distribution Width CV 13.4 % (11.6-14.6); RBC Distribution Width SD 47.6 fl (35.1-43.9); Red Blood Count 4.27 M/mm3 (4.2-5.4); White Blood Count 4.4 K/mm3 (4.4-11.0)
[2022-05-17 11:19] LABS: Anion Gap 4 (5-15); BUN 15 mg/dL (7-18); Calcium,Total 8.7 mg/dL (8.5-10.1); Chloride 108 mmol/L (98-107); Creatinine, Serum 0.75 mg/dL (0.55-1.02); EST Glomerular Filtration Rate 80 mL/min (>60); Est Glom Filt Rate - Afr Amer 96 mL/min (>60); Glucose 106 mg/dL (74-106); Potassium 4.4 mmol/L (3.5-5.1); Sodium Level 142 mmol/L (136-145); T4 Free Direct 1.36 ng/dL (0.76-1.46); Thyroid Stim Hormone (TSH) 2.46 uIU/mL (0.358-3.74)
== END | disposition home or self-care (01) ==
LOC: LAB 09:22
PROVIDERS: Nurse Practitioner Gerontology; PCP Family Medicine; Visit Provider Internal Medicine Cardiovascular Disease
DX: R53.83 Other fatigue (principal)
CPT/HCPCS: 36415; 80048; 84439; 84443; 85025

== ENCOUNTER → 2022-06-29 | Outpatient (CLI) | payer MEDICARE, SELFPAY ==
--- NOTE | 2022-06-29 12:55 | ECHOD_ITS ---
Reason For Study: Afib/Flutter Procedure This was a 2D Doppler, Color Flow transthoracic echocardiogram. The exam was of adequate technical quality. Exam performed in department. Left Ventricle Normal LV size. Left ventricular systolic function is normal. The estimated ejection fraction is 55 %. Diastolic function is indeterminate. No regional wall motion abnormalities noted. Right Ventricle Normal RV size. Normal systolic function. Atria The left atrium is moderately enlarged. Normal right atrium. 2D echocardiographic findings c/w an interatrial shunt repair. No doppler evidence for ASD. Mitral Valve There is no mitral annular calcification. Normal mitral valve. Mild (1+) mitral valve insufficiency. Tricuspid Valve Normal tricuspid valve. Trivial tricuspid valve insufficiency. Right ventricular systolic pressure estimated to be 21 mmHg. Aortic Valve Trisinus/trileaflet aortic valve. Normal aortic valve. Trivial aortic valve insufficiency. Pulmonic Valve The pulmonic valve is not well visualized. Mild (1+) pulmonic valve insufficiency. Great Vessels Normal sized aortic root. Pericardium/Pleural No pericardial effusion. MMode/2D Measurements & Calculations LVIDd: 4.2 cm IVSd: 0.77 cm Ao root diam: 3.1 cm LVIDs: 2.6 cm LVPWd: 0.90 cm LA dimension: 4.6 cm RVDd: 2.8 cm FS: 39.1 % LAV(MOD-bp): 72.4 ml LA A4 area: 25.5 cm2 RA A4 area: 18.3 cm2 LAV(MOD-bp) Indexed: 51.9 ml/m2 LAV(MOD-sp2): 62.6 ml LAV(MOD-sp4): 83.4 ml Time Measurements MV dec time: 0.20 sec Doppler Measurements & Calculations MV E max sandor: 78.9 cm/sec Lat Peak E' Sandor: 8.2 cm/sec Med Peak E' Sandor: 10.8 cm/sec MV A max sandor: 74.6 cm/sec E/E' lat: 9.7 E/E' med: 7.3 MV E/A: 1.1 MV V2 max: 95.7 cm/sec MV P1/2t max sandor: 95.7 cm/sec Ao V2 max: 138.9 cm/sec MV max P.7 mmHg MV P1/2t: 76.4 msec Ao max P.7 mmHg MV V2 mean: 53.9 cm/sec MV dec slope: 367.0 cm/sec2 Ao V2 mean: 85.1 cm/sec MV mean P.4 mmHg MVA(P1/2t): 2.9 cm2 Ao mean P.5 mmHg MV V2 VTI: 27.9 cm Ao V2 VTI: 25.7 cm AI max sandor: 452.6 cm/sec LV V1 max: 119.0 cm/sec PA V2 max: 187.5 cm/sec AI max P.9 mmHg LV V1 max P.7 mmHg PA V2 mean: 124.5 cm/sec LV V1 mean P.8 mmHg AI dec slope: 296.4 cm/sec2 LV V1 mean: 77.6 cm/sec AI P1/2t: 447.3 msec LV V1 VTI: 21.9 cm TR max sandor: 208.9 cm/sec PI dec slope: 156.6 cm/sec2 TR max P.5 mmHg ECHO/Echo Complete Interpretation Summary Left ventricular systolic function is normal. The estimated ejection fraction is 55 %. The left atrium is moderately enlarged. 2D echocardiographic findings c/w an interatrial shunt repair. No doppler evidence for ASD. Mild (1+) mitral valve insufficiency. Trivial tricuspid valve insufficiency. Trivial aortic valve insufficiency. Mild (1+) pulmonic valve insufficiency. Right ventricular systolic pressure estimated to be 21 mmHg. Diastolic function is indeterminate. Ordering Physician: Radha Spencer Referring Physician: Jame De La Garza Performed By: Jhonathan Sharp RCS
--- NOTE | 2022-06-29 12:56 | US_ITS ---
STUDY: RENAL ULTRASOUND - COMPLETE REASON FOR EXAM: Female, 77 years old. HEMATURIA TECHNIQUE: Ultrasound evaluation of the kidneys was performed with real-time and static crook-scale imaging. COMPARISON: None. FINDINGS: RIGHT KIDNEY: Normal location of the right kidney, which is normal in size. The right kidney measures 10 cm x 6.6 cm x 5.4 cm. There is a normal cortex of the right kidney. The renal cortex measures 1.7 cm. There is no right renal mass or cyst. There is a 1.4 cm calculus in the proximal right ureter. There is moderate hydronephrosis of the right kidney. DISTAL RIGHT URETER: There is non-visualization of the distal right ureter. There is no demonstrated right ureterovesical junction calculus. There is no demonstrated right ureteral jet. LEFT KIDNEY: Normal location of the left kidney, which is normal in size. The left kidney measures 10 cm x 4.5 cm x 4.8 cm. There is a normal cortex of the left kidney. The renal cortex measures 1.5 cm. There is no left renal mass or cyst. There are no left renal calculi. There is no left hydronephrosis. DISTAL LEFT URETER: There is non-visualization of the distal left ureter. There is no demonstrated left ureterovesical junction calculus. There is no demonstrated left ureteral jet. BLADDER: The bladder is empty at the time of examination. US/Kidney and Bladder IMPRESSION: 1.4 cm calculus in the proximal right ureter causing moderate degree of right hydronephrosis. Electronically Signed: Jamaal Gonzales MD at 13:54 EDT ,
== END | disposition home or self-care (01) ==
PROVIDERS: PCP Family Medicine; Referring Provider Nurse Practitioner Gerontology; Visit Provider Nurse Practitioner Gerontology
DX: R31.0 Gross hematuria (principal); I48.0 Paroxysmal atrial fibrillation; I34.0 Nonrheumatic mitral (valve) insufficiency
CPT/HCPCS: 76770; 93306

== ENCOUNTER → 2022-07-06 | Outpatient (CLI) | payer MEDICARE, SELFPAY ==
--- NOTE | 2022-07-06 12:41 | RAD_ITS ---
STUDY: X-RAY CHEST REASON FOR EXAM: Female, 77 years old. R06.00 , dyspnea TECHNIQUE: PA and lateral views of the chest. COMPARISON: 10/09/2021 FINDINGS: There is hyperinflation of the lungs consistent with chronic obstructive lung disease (COPD). No airspace consolidation. There is pleural fibrotic scarring of the right costophrenic angle. Normal size heart. Normal mediastinum and grant. There is prominence of the pulmonary hilar arteries without peripheral pulmonary vascular congestion, suggesting pulmonary hypertension. There is atherosclerotic calcification of the aortic arch with tortuosity. There is demineralization of the osseous structures. Normal visualized ribs, clavicles, and shoulders. There is no demonstrated abnormality of the visualized soft tissue structures of the upper abdomen. RAD/Chest PA and Lateral IMPRESSION: No airspace consolidation or pleural effusion. Chronic fibrotic changes. Pulmonary hypertension. Electronically Signed: Denny Ruiz MD ([place]) at 16:53 EDT ,
[2022-07-06 15:09] LABS: Absolute Lymphocyte Count 1.16 X10^3/uL (0.83-4.51); Absolute Neutrophil Count 5.9 X10^3/uL (2.0-7.7); Basophil# 0.05 X10^3/uL; Basophil% 0.6 % (0-1); Eosinophil# 0.02 X10^3/uL; Eosinophils% 0.3 % (0-5); Hematocrit 41.6 % (37-47); Hemoglobin 13.3 g/dL (12.0-15.0); Lymphocyte # 1.16 X10^3/ul (0.83-4.51); Mean Corpuscular Hgb 31.3 pg (27.0-32.0); Mean Corpuscular Volume 97.9 fL (81-99); Monocyte# 0.51 X10^3/uL; Monocyte% 6.6 % (0-10); NRBC Flagged by Analyzer 0 % (0-5); Neutrophil # 5.88 X10^3/uL (2.7-7.7); Neutrophil % 76.2 % (47-70); Platelet Count 235 K/mm3 (150-450); RBC Distribution Width CV 14.1 % (11.6-14.6); RBC Distribution Width SD 50.8 fl (35.1-43.9); Red Blood Count 4.25 M/mm3 (4.2-5.4); White Blood Count 7.7 K/mm3 (4.4-11.0)
[2022-07-06 15:13] LABS: Erythrocyte Sedimentation Rate 14 mm/hr (0-30)
[2022-07-06 15:30] LABS: ALB/GLOB Ratio 0.6 RATIO (0.9-2.4); AST(SGOT) 230 U/L (15-37); Alanine Aminotransfer ALT/SGPT 274 U/L (13-56); Albumin, Serum 2.6 g/dL (3.2-5.0); Alkaline Phosphatase 91 U/L (45-117); Anion Gap 3 (5-15); BUN 19 mg/dL (7-18); BUN/Creat Ratio 17.4 RATIO (10-20); Calcium,Total 8.2 mg/dL (8.5-10.1); Chloride 106 mmol/L (98-107); Creatinine, Serum 1.09 mg/dL (0.55-1.02); EST Glomerular Filtration Rate 52 mL/min (>60); Est Glom Filt Rate - Afr Amer 63 mL/min (>60); Globulin 4.2 g/dL (2.2-4.2); Glucose 122 mg/dL (74-106); Potassium 4.2 mmol/L (3.5-5.1); Protein, Total 6.8 g/dL (6.4-8.2); Sodium Level 141 mmol/L (136-145); Thyroid Stim Hormone (TSH) 2.23 uIU/mL (0.358-3.74)
== END | disposition home or self-care (01) ==
PROVIDERS: PCP Family Medicine; Referring Provider Family Medicine; Visit Provider Family Medicine
DX: R63.4 Abnormal weight loss (principal); R06.00 Dyspnea, unspecified
CPT/HCPCS: 36415; 71046; 80053; 84443; 85025; 85652

== ENCOUNTER → 2022-07-10 | Outpatient (CLI) | payer MEDICARE, SELFPAY ==
[2022-07-10 14:08] LABS: Internal QC Validated? YES +Cl - CLEAR BKGD; Monotest Negative (Negative)
== END | disposition home or self-care (01) ==
LOC: LAB 12:31
PROVIDERS: PCP Family Medicine; Referring Provider Family Medicine; Visit Provider Family Medicine
DX: R53.83 Other fatigue (principal)
CPT/HCPCS: 36415; 86308

== ENCOUNTER → 2022-07-12 | Outpatient (CLI) | payer MEDICARE, SELFPAY ==
[2022-07-12 12:01] LABS: AST(SGOT) 74 U/L (15-37); Alanine Aminotransfer ALT/SGPT 107 U/L (13-56); Albumin, Serum 2.5 g/dL (3.2-5.0); Alkaline Phosphatase 96 U/L (45-117); Bilirubin, Direct 0.12 mg/dL (0.00-0.30); Cholesterol 125 mg/dL (200); Globulin 3.9 g/dL (2.2-4.2); High Density Lipoprotein 34 mg/dL; Protein, Total 6.4 g/dL (6.4-8.2); T4 Total, Thyroxin 8.6 ug/dL (4.8-13.9); Thyroid Stim Hormone (TSH) 4.19 uIU/mL (0.358-3.74); Triglycerides 129 mg/dL; Very Low Density Lipoprotein 26 mg/dL (5-40)
== END | disposition home or self-care (01) ==
LOC: LAB 10:20
PROVIDERS: PCP Family Medicine; Visit Provider Internal Medicine Cardiovascular Disease
DX: Q24.9 Congenital malformation of heart, unspecified (principal); I27.20 Pulmonary hypertension, unspecified; I48.92 Unspecified atrial flutter; I48.0 Paroxysmal atrial fibrillation; I51.7 Cardiomegaly; E78.2 Mixed hyperlipidemia; Z79.899 Other long term (current) drug therapy
CPT/HCPCS: 36415; 80061; 80076; 84436; 84443

== ENCOUNTER → 2022-07-25 | Outpatient (CLI) | payer MEDICARE, SELFPAY ==
--- NOTE | 2022-07-25 13:34 | CT_ITS ---
STUDY: CT ABDOMEN AND PELVIS WITH CONTRAST REASON FOR EXAM: Female, 77 years old. ELEVATED LIVER ENZYMES WEIGHT LOSS RADIATION DOSAGE (If Supplied By Facility): CTDIvol = ( 13.66 ) mGy, DLP = ( 326.47 ) mGycm TECHNIQUE: Transaxial images were obtained from the dome of the diaphragm to the symphysis pubis with oral contrast. Oral and amp; IV Readi-CAT and amp; 100mL Isovue-370 was administered. Sagittal and coronal images were reconstructed. Individualized dose optimization techniques were used for this CT. COMPARISON: Comparison is made with prior study dated 09/11/2020. FINDINGS: Stable increased markings at the lung bases suggestive of scarring. Coronary artery calcification. Stable left pericardial calcifications. Normal liver. The patient is status post cholecystectomy. Normal spleen. Normal pancreas. Normal bilateral adrenal glands. Moderate degree of right hydronephrosis and proximal right hydroureter due to a 9.4 mm calculus in the proximal portion of the right ureter. Normal left kidney. There is a small hiatal hernia. Normal small intestine. Normal colon. The patient is status post appendectomy. Normal abdominal aorta. Normal inferior vena cava. Normal retroperitoneum. Normal urinary bladder. There is absence of the uterus consistent with a prior hysterectomy. Normal abdominal wall. There are degenerative changes of the visualized lumbar spine. CT/Abdomen/Pelvis WITH Contrast IMPRESSION: Moderate degree of the right hydronephrosis and proximal right hydroureter due to a 9.4 mm calculus in the proximal portion of the right ureter. The patient is status post cholecystectomy. Prior hysterectomy. Electronically Signed: Jamaal Gonzales MD at 14:12 EDT ,
== END | disposition home or self-care (01) ==
LOC: CT 13:33
PROVIDERS: PCP Family Medicine; Referring Provider Family Medicine; Visit Provider Family Medicine
DX: R63.4 Abnormal weight loss (principal)
CPT/HCPCS: 74177; Q9967

== ENCOUNTER 2022-08-01 12:13 | Day surgery (SDC) | payer MEDICARE, SELFPAY ==
[2022-08-01 12:27] VITALS: BP 142/69; PULSE 76; RESP 16; TEMP 36.3; O2SAT 100; BMI 19.8
[2022-08-01] MEDS: Lactated Ringers 1,000 ML 15 ML IV (12:34)
--- NOTE | 2022-08-01 13:47 | PCM.HP.STD ---
[facility] - General General Date of Service: 08/01/22 Chief Complaint: Right proximal ureteral calculi [facility] Narrative RUBEN LOBO, is a 77 F who presents for treatment of a right proximal ureteral calculi were in place a stent and then shockwave lithotripsy, spoke to her in the preoperative setting regarding the procedure we talked about the risk of the procedure bleeding infection is stopped her Eliquis as instructed there is a risk that she will need multiple procedures and the stone may not break is also risk of bleeding from the kidney from the shockwave [facility] Medical History (Updated 07/30/22 @ 09:22 by Montse Ascencio) Anxiety Arthritis 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, left Atrial flutter Cardiology follow-up encounter Chronic cholecystitis with calculus Congenital heart disease CPAP (continuous positive airway pressure) dependence Depression Dilatation of pulmonic artery Esophageal hiatal hernia Essential (primary) hypertension Excessive bleeding Gastric reflux GERD (gastroesophageal reflux disease) History of atrial fibrillation History of cardioversion History of echocardiogram History of hiatal hernia History of pain when walking History of steroid therapy History of stress test 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 current use of anticoagulant Mixed hyperlipidemia Non-smoker On amiodarone therapy CLARISSE (obstructive sleep apnea) Paroxysmal atrial fibrillation Post-menopausal Pulmonary hypertension Restless legs Rheumatoid arthritis Shortness of breath on exertion Sleep apnea Wears dentures Wears hearing aid Home Medications denosumab 60 mg/mL subcutaneous syringe (Prolia) 60 mg subcut [id number] 12/14/20 [History Last Taken Unknown] pantoprazole 40 mg tablet,delayed release 40 mg PO DAILY 12/14/20 [History Last Taken Unknown] sertraline 100 mg tablet 100 mg PO QHS 12/14/20 [History Last Taken Unknown] ascorbic acid (vitamin C) 500 mg tablet (Vitamin C) 500 mg PO BID 08/21/21 [History Last Taken Unknown] apixaban 5 mg tablet (Eliquis) 5 mg PO BID 07/30/22 [History Last Taken 07/29/22] diltiazem HCl 120 mg capsule,extended release 24 hr 120 mg PO DAILY bp/heart 07/30/22 [History Last Taken Unknown] ciprofloxacin HCl 500 mg tablet (Cipro) 500 mg PO BID #6 tabs 08/01/22 [Rx Last Taken Unknown] Allergy/AdvReac Type Severity Reaction Status Date / Time No Known Allergies Allergy Verified 08/01/22 12:25 Family History Mother Hypertension Arthritis Heart disease Father Cancer Brother Cancer Son CVA (cerebral vascular accident) Diabetes Brother TIA (transient ischemic attack) Sister Cancer kidney cancer Thyroid disorder Surgical History History of appendectomy History of arthroscopy of right knee History of atrial septal defect repair History of cardiac catheterization History of cholecystectomy History of hysterectomy History of open heart surgery Status post laparoscopic Himanshu fundoplication (~11/2018) Social History Smoking Status: Never smoker alcohol intake: never substance use type: does not use caffeine: Yes Type: coffee Number of servings: 1 what type of physical activity do you participate in: walking frequency: daily duration: 30-45 minutes/day seatbelt use: always do you feel safe at home: Yes Vital Signs Vital Signs Vital Signs: 08/01/22 12:27 08/01/22 12:27 Temperature 97.4 F L Temperature Source Temporal Pulse Rate 76 Respiratory Rate 16 Respiratory Pattern Normal Blood Pressure 142/69 H Blood Pressure Mean 93 Blood Pressure Source Monitor Blood Pressure Position Semi-Fowlers Blood Pressure Location Left Arm Pulse Ox 100 Oxygen Delivery Method Room Air Weight Weight: 46.2 kg Body Mass Index (BMI) 19.8
--- NOTE | 2022-08-01 13:48 | PCM.DC ---
Discharge Instructions Diet Discharge Diet: No restrictions, Light diet - advance as tolerated and Soft diet Activity Discharge Activity: Return to Normal Activity Follow Up Care Please Follow Up With: Hesham Reece MD When: call for appt., do xray before next appt Test Results: Test results from this visit will be discussed in further detail at your follow-up appointment, if applicable. Discharge Plan Admission Primary Reason for Your Visit: Right kidney stone Attending Provider: Hesham Reece Primary Care Provider: Jame De La Garza Discharge Orders/Prescriptions Prescriptions: New ciprofloxacin HCl [Cipro] 500 mg tablet 500 mg PO BID Qty: 6 0RF Continued sertraline 100 mg tablet 100 mg PO QHS pantoprazole 40 mg tablet,delayed release (DR/EC) 40 mg PO DAILY Prolia 60 mg/mL syringe 60 mg SC [id number] ascorbic acid (vitamin C) [Vitamin C] 500 mg Tablet 500 mg PO BID diltiazem HCl 120 mg capsule,extended release 24hr 120 mg PO DAILY Held Eliquis 5 mg tablet 5 mg PO BID Hold Instructions: Resume on 08/06/22. Referrals / Follow Up: Jame De La Garza MD [Primary Care Provider] - Hesham Reece MD [Med Staff - Active Staff] - Disposition Disposition (needs filled in before D/C Order can be placed): Home, Self Care
[2022-08-01] MEDS: Lactated Ringers 1,000 ML 75 ML IV (13:50)
[2022-08-01] MEDS: Cefazolin 2 GM in 0.9% Normal Saline 100 ML IV (14:07)
--- NOTE | 2022-08-01 15:29 | PCM.OPRPT ---
Report of Operation Date of Procedure: 08/01/22 Pre-Operative Diagnosis: right ureteral calculi Post-Operative Diagnosis: same Surgery/Procedure Performed:: cysto and right stent placement and right ESWL Description of Surgical Findings:: Patient presents to the hospital for treatment of a kidney stone with shockwave lithotripsy. In the preoperative area and x-ray was done to confirm the location of the stone. The x-ray was reviewed and the stone location was reviewed. In the preoperative setting I spoke with the patient regarding the treatment of the stone how the treatment would be conducted and the expectations after surgery. The patient understands there is a risk of bleeding and infection. Also discussed the very rare risk of hematoma or damage to the kidney. We also discussed the risk that the shockwave machine will fail to break the stone adequately and that the patient may need other surgical procedures. We also discussed the possibility that the patient may need a stent after the procedure. After reviewing the procedure with the patient, the patient is signed the consent form all the patient's questions were addressed and was taken back to the operating room for treatment of a kidney stone. Patient was taken back to the operating room, patient was identified by the nursing staff, we identified the side of the treatment and the patient side of treatment had been marked by my initials. The patient underwent general anesthetic and was placed supine on the lithotripter table. We then used fluoroscopy to identify the stone on the Right side. The urethra and genitals were prepped and draped in usual sterile fashion. Using a 21 Bruneian rigid cystourethroscope the entire length of the urethra was normal then went into the bladder. Identified the trigone the left and right ureteral orifice. I then cannulated the right orifice and advanced a wire up into the kidney. I then backloaded a 5 Bruneian open ended catheter over the wire and injected contrast to delineate the anatomy. After the retrograde was performed I then used fluoroscopic images and guidance to advanced a wire up into the kidney and over the 0.038 glidewire I advanced a 6 Bruneian by 26 cm double pigtail stent. I then pulled the 0.038 Glidewire off and the stent coiled in the kidney bladder good position. The bladder was then drained. We confirmed the position of the stent by fluoroscopy. We then positioned the patient under the lithotripter and we used triangulation technique to identify the location of the stone and then we made sure that the stone was engaged in the F2 focal point of F2 Donier lithoprior machine. Once the patient was positioned appropriately and the stone was identified and placed in the F2 focal point of the lithotripter machine we then proceeded with shockwave lithotripsy. In the beginning the shockwave was delivered at a rate of 90 shocks per minute, we monitor the EKG for any ectopy. The power was slowly increased to 5 kV and subsequently at the 7 kV. We then proceeded with the treatment we move the therapy had around during the treatment to make sure the stone stayed in the F2 focal point during the entire treatment and after 4000 shockwaves were delivered to the stone under fluoroscopic guidance the treatment was completed. The patient was given instructions to call the office to make an a follow-up appointment with an xray to evaluate the success of the treatment, pateint understands that its possible the stones may need another procedure.At this point the patient's anesthetic was reversed patient was extubated and taken back to the PACU in stable condition.Patient was taken back to the operating room after induction of general anesthesia, the patient was placed in dorsolithotomy position. Surgeon: Hesham Reece Type of Anesthesia: General Drains: right stent Admit VTE Documentation VTE Present on Admission: No VTE Mechan Device Prophylaxis: SCD's VTE Pharm Prophylaxis ordered?: No
[2022-08-01 15:40] VITALS: BP 140/86; BP 142/69; PULSE 80; RESP 17; TEMP 36.3; O2SAT 100
[2022-08-01 15:45] VITALS: BP 142/69; BP 142/89; PULSE 78; RESP 16; O2SAT 100
[2022-08-01] MEDS: Ketorolac 15 MG/ML Vial IV (15:46)
[2022-08-01 15:59] VITALS: BP 134/79; BP 142/69; PULSE 76; RESP 16; TEMP 36.1; O2SAT 99
[2022-08-01 16:13] VITALS: BP 142/69
[2022-08-01 16:49] VITALS: BP 140/76; BP 142/69; PULSE 81; RESP 16; TEMP 36.8; O2SAT 95
== END 2022-08-01 17:09 | disposition home or self-care (01) ==
LOC: SDC 12:14 → AC 12:15
PROVIDERS: PCP Family Medicine; Referring Provider Urology; Visit Provider Urology
PROC: (CPT 50590; principal; 2022-08-01 14:05)
DX: N20.1 Calculus of ureter (principal); I48.92 Unspecified atrial flutter; I48.0 Paroxysmal atrial fibrillation; I10 Essential (primary) hypertension; G47.33 Obstructive sleep apnea (adult) (pediatric); K21.9 Gastro-esophageal reflux disease without esophagitis; F41.9 Anxiety disorder, unspecified; F32.A Depression, unspecified; Z79.01 Long term (current) use of 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; Z79.899 Other long term (current) drug therapy; Z86.16 Personal history of COVID-19
CPT/HCPCS: J7120; C1769; C2617; J2405

== ENCOUNTER → 2022-08-06 | Outpatient (CLI) | payer MEDICARE, SELFPAY ==
--- NOTE | 2022-08-06 14:25 | RAD_ITS ---
EXAM: XR ABDOMEN, 1 VIEW CLINICAL INDICATION: CALCULUS OF KIDNEY TECHNIQUE: Frontal supine view of the abdomen/pelvis. This report was created using [employer] report generation technology. COMPARISON: CT of 07/25/2022. FINDINGS: LOWER THORAX: No acute pathology. GASTROINTESTINAL TRACT: Unremarkable. Non-obstructive. No bowel or stomach distention. ORGANS: Right ureteral stent has been inserted and extends from the upper pole of the right kidney to the region of the urinary bladder. A 2 mm rounded calcification with central lucency is projected adjacent to the distal third of the right ureter, consistent with a calcified pelvic phlebolith as was noted on prior CT. The 9 mm stone seen within the proximal right ureter on the prior CT is not visualized on the current abdominal radiograph. No organomegaly. BONES/JOINTS: Lumbar degenerative disc disease is present. SOFT TISSUES: No acute pathology. RAD/Abdomen Single View IMPRESSION: Interval placement of a right ureteral stent. No definite ureteral stones are seen adjacent to the indwelling right ureteral stent. Electronically Signed: Diego Johnson MD at 5:18 EDT ,
== END | disposition home or self-care (01) ==
PROVIDERS: PCP Family Medicine; Referring Provider Urology; Visit Provider Urology
DX: N20.0 Calculus of kidney (principal)
CPT/HCPCS: 74018

== ENCOUNTER → 2022-09-13 | Outpatient (CLI) | payer MEDICARE, SELFPAY ==
--- NOTE | 2022-09-13 13:15 | CT_ITS ---
EXAM: CT RIGHT LOWER EXTREMITY WITHOUT INTRAVENOUS CONTRAST CLINICAL INDICATION: ARTHRITIS PRE OP TECHNIQUE: Helically acquired images were obtained of the right lower extremity without intravenous contrast. 2-D reformats were performed by the technologist. CTDIvol = ( 20.63 ) mGy, DLP = ( 1445.29 ) mGycm This CT exam was performed using one or more of the following dose reduction techniques: automated exposure control, adjustment of the mA and/or kV according to patient size, and/or use of iterative reconstruction technique. This report was created using Fourteen IP report Safe Shepherd technology. COMPARISON: None. FINDINGS: BONES/JOINTS: Moderate hip and knee osteoarthrosis, the latter worse at the medial femorotibial compartment. No acute osseous abnormalities or malalignment. No osteonecrosis. No other sclerotic or destructive changes. SOFT TISSUES: Large suprapatellar joint effusion. No soft tissue swelling or gas. No radiopaque foreign body. CT/Extremity Lower without Contra IMPRESSION: Moderate osteoarthrosis involving the knee and hip joints with large suprapatellar joint effusion identified. Electronically Signed: Umair Rodriguez MD at 2:16 EDT ,
[2022-09-13 14:17] LABS: AST(SGOT) 48 U/L (15-37); Alanine Aminotransfer ALT/SGPT 41 U/L (13-56); Albumin, Serum 3.5 g/dL (3.2-5.0); Alkaline Phosphatase 80 U/L (45-117); Bilirubin, Direct 0.17 mg/dL (0.00-0.30); Globulin 4.2 g/dL (2.2-4.2); Protein, Total 7.7 g/dL (6.4-8.2); Thyroid Stim Hormone (TSH) 2.77 uIU/mL (0.358-3.74)
== END | disposition home or self-care (01) ==
PROVIDERS: Internal Medicine Cardiovascular Disease; PCP Family Medicine; Referring Provider Orthopaedic Surgery; Visit Provider Orthopaedic Surgery
DX: E78.5 Hyperlipidemia, unspecified (principal); R74.8 Abnormal levels of other serum enzymes; R79.89 Other specified abnormal findings of blood chemistry; M17.11 Unilateral primary osteoarthritis, right knee
CPT/HCPCS: 36415; 73700; 80076; 84443

== ENCOUNTER → 2022-09-20 | Outpatient (CLI) | payer MEDICARE, SELFPAY | END | disposition home or self-care (01) | LOC: LABSPEC 16:48 | PROVIDERS: PCP Family Medicine; Visit Provider Urology | DX: N30.00 Acute cystitis without hematuria (principal) | CPT/HCPCS: 87077; 87086; 87088; 87186 ==

== ENCOUNTER 2022-10-01 17:18 | Observation (INO) | payer MEDICARE, SELFPAY ==
[2022-09-24 15:29] LABS: Absolute Lymphocyte Count 1.08 X10^3/uL (0.83-4.51); Absolute Neutrophil Count 3.1 X10^3/uL (2.0-7.7); Basophil# 0.03 X10^3/uL; Basophil% 0.6 % (0-1); Eosinophils% 2.1 % (0-5); Hematocrit 39.7 % (37-47); Hemoglobin 12.9 g/dL (12.0-15.0); Lymphocyte # 1.08 X10^3/ul (0.83-4.51); Lymphocyte % 22.7 % (19-41); Mean Corp Hgb Conc 32.5 g/dL (32-36); Mean Corpuscular Hgb 31.4 pg (27.0-32.0); Mean Corpuscular Volume 96.6 fL (81-99); Mean Platelet Vol. 11.5 fl (6.2-12.0); Monocyte% 8.4 % (0-10); NRBC Flagged by Analyzer 0 % (0-5); Neutrophil # 3.14 X10^3/uL (2.7-7.7); Platelet Count 119 K/mm3 (150-450); RBC Distribution Width CV 13.3 % (11.6-14.6); RBC Distribution Width SD 47.4 fl (35.1-43.9); Red Blood Count 4.11 M/mm3 (4.2-5.4); White Blood Count 4.8 K/mm3 (4.4-11.0)
[2022-09-24 15:56] LABS: Albumin, Serum 3.3 g/dL (3.2-5.0); Anion Gap 5 (5-15); BUN 21 mg/dL (7-18); BUN/Creat Ratio 26.3 RATIO (10-20); Calcium,Total 9.1 mg/dL (8.5-10.1); Chloride 107 mmol/L (98-107); EST Glomerular Filtration Rate 74 mL/min (>60); Est Glom Filt Rate - Afr Amer 90 mL/min (>60); Glucose 142 mg/dL (74-106); Potassium 4.1 mmol/L (3.5-5.1); Sodium Level 143 mmol/L (136-145)
[2022-09-24 16:01] LABS: Hemoglobin A1c 5.2 % (3.8-5.6)
[2022-09-24 16:10] LABS: Magnesium 2.3 mg/dL (1.6-2.6)
--- NOTE | 2022-09-25 14:36 | CASEMGMT ---
TC to pt for RN CM assessment, pt states she will not be spending the night in the hospital. She plans to go home same day as surgery.
[2022-10-01] VITALS (17 sets, daily range): BP systolic 112–152; BP diastolic 61–78; PULSE 67–80; RESP 16–18; TEMP 36.2–36.9; O2SAT 96–100; BMI 21.4
[2022-10-01] MEDS: Gabapentin 600 MG Tablet PO (08:32)
[2022-10-01] MEDS: Acetaminophen 500 MG Tablet 1000 MG PO ×2 (08:32→21:39)
[2022-10-01] MEDS: Magnesium 1 GM over 15 mins IV (08:32)
[2022-10-01] MEDS: Lactated Ringers 1,000 ML 15 ML IV (08:53)
[2022-10-01 09:21] LABS: Bedside Glucose 145 mg/dL (74-106)
[2022-10-01] MEDS: Cefazolin 2 GM in 0.9% Normal Saline 100 ML IV (09:35)
--- NOTE | 2022-10-01 10:30 | KNEE_PTH ---
PATIENT: RUBEN LOBO LOC: [facility]3 U#:[id number] AGE/SX: 77/F ROOM: [facility]316 RE10/01/[address]: Dr. Cy Carvajal DO : 1945 BED: 1 DIS: 10/02/2022 SPEC #: [id number] RECD: 10/01/22 10:57 STATUS: NAKIA REAdolfo #: [id number] KATHY: 10/01/22 10:[address]: Cy Carvajal DEPT: SURGICAL PATHOLOGY RECD BY: Summer Camacho ENTERED: 10/01/22 11:48 SP TYPE: TOTAL KNEE OTHR DR: Dr. Jame De La Garza MD Tissues: Knee, NOS Procedures: Decalcification bone/plaque Surgery Specimen Level IV HEADER OPERATION: ERAS, total knee replacement robotic arm assist PRE-OP DIAGNOSIS: Osteoarthritis right knee TISSUE SUBMITTED: Right knee bone MICROSCOPIC DIAGNOSIS Right knee bone, total knee replacement/resection: Pieces of bone with degenerative osteoarthritic changes. POLLO:juan josé 10/05/2022 MICROSCOPIC DESCRIPTION Slides are reviewed. GROSS DESCRIPTION Received is one container designated right knee bone. The specimen consists of multiple fragments of cohn-yellow bone measuring in aggregate 10 x 9 x 3 cm. No soft tissue is identified. A number of bony fragments contain articular surfaces consistent with tibial plateau and femoral condyle and displaying prominent osteophyte formation, eburnation, and bone erosion. Residential [employer] Heat Technician sections are submitted in one cassette after decalcification. / POLLO:juan josé 10/01/2022 TC:5 CPT: 09249, 09420
--- NOTE | 2022-10-01 10:40 | OP.PCM_ITS ---
Report of Operation Date of Procedure: 10/01/22 Pre-Operative Diagnosis: OA right knee Post-Operative Diagnosis: same Surgery/Procedure Performed:: Right TKR Description of Surgical Findings:: Report of Operation Date of Procedure: 10/01/2022 Preoperative Diagnosis: [ right ] knee primary osteoarthritis Postoperative Diagnosis: [right ] knee primary osteoarthritis Operation: Robotic Assisted Knee Total Arthroplasty, [right ] knee Surgeon: Dr Cy Carvajal DO Political Director: Pranav Colbert PA-C Anesthesia: spinal Anesthesiologist: Alen Fregoso M.D. Findings: Stable knee with good patella tracking Specimen(s): Bony cuts Complications: No intraoperative complications Estimated Blood Loss: 30 cc IV Fluids: 1000 cc crystalloid Implants Used: 1. Sukhwinder Triathlon press-fit CR size 2 femur 2. [place] Triathlon size 2 tibia 3. 29 mm patella 4. 12 mm CS polyethylene Brief History Operative Indications: [ (77 y/o female) ] with history of [ right ] knee osteoarthrosis with radiographic findings with loss of joint space, osteophyte formation and subchondral sclerosis. Failed conservative measures as mentioned in the H&P. Discussion of total knee arthroplasty as well as risk and benefits were discussed with the patient including but not limited to blood loss, DVTs, PEs, neurovascular damage, general risk of anesthesia including loss of life, and stiffness or instability were also discussed with the patient. Patient demonstrated understanding and was able to sign informed consent. Procedure: On the date of procedure, patient's [right ] lower extremity was marked in the preoperative area. The patient was then taken back to the operating room where that patient was placed on the table in the supine position. All bony prominences were identified and well-padded. Anesthesia assumed control of the C-spine and airway throughout the remainder of the procedure. A tourniquet was placed on the [ right ] upper thigh and the leg was prepped in a sterile fashion. The surgeon then scrubbed at this time. Upon reentering the room, the [right ] lower extremity was draped in a standard orthopedic fashion. A timeout was then called and everyone agreed upon the side, the site, the procedure to be performed, patient's identity and antibiotics given. Esmarch bandage was used to exsanguinate the extremity and the tourniquet was p laced up to 250 mmHg with the knee in flexion. A midline skin incision was made and a sharp dissection was taken down through skin, subcutaneous tissue and fat. The standard medial parapatellar incision was made and the patella was subluxed laterally. An appropriate deep MCL release was done and the fat pad was resected. Our attention was then directed to the patella. The patella was everted and a flat resection was made. The knee was then flexed up and 2 femoral pins were placed inside the incision and 2 tibial pins were placed outside the incision in the medial tibia bicortically. Once this was completed, the 2 checkpoints in the femur and tibia were placed. Knee was then flexed up and the bony landmarks were registered. Once the was completed, the knee taken through range of motion and manually stressed allowing us to plan for an appropriate tibial cut. The robotic arm was brought into the field sterilely and checkpoint and saw were registered. Based on the patient's deformity, the tibial cut was made in [ 1 degree varus ]. At this time, the tensioner was then placed in the joint and ligament tension was checked at 90 degrees and full extension. Based on the patient's ligamentous tension, appropriate adjustments were made to the operative plan and ligament releases were done. Once we were happy with our operative plan with balanced flexion and extension gaps, our attention was directed to the femur. The robot was brought into the field sterilely and registered. Posterior condylar cuts, anterior chamfer cuts and anterior cuts were appropriately made for a [size 2 ] femur. When these were completed, the saws were switched out in the distal femoral and posterior chamfer cuts were made. Protecting the soft tissue throughout this time. A [size 2 ] base plate was selected. The knee was flexed to 90 degrees and soft tissues and posterior osteophytes were removed from the joint. 40 cc of the periarticular injection was injected into the posterior medial corner of the joint. The appropriate trials were then placed on the femur and tibia. A trial polyethylene was trialed to ensure proper balancing and stability of the knee. The appropriate tibial internal rotation was then marked with a bovie. Our attention was then directed to the patella. The lug holes were drilled and the patella trial was placed. Patellar tracking was checked and deemed appropriate. Once we were happy, lug holes were drilled for the femur and trial components were removed. The tibia was subluxed and pinned into place and the keel was punched and drilled appropriately. Final components were verified and opened. The wound was copiously irrigated with normal saline. The components were impacted into place with the tibia, femur and finally the patella. The trial poly component was placed and the knee was placed in full extension. The tracking, alignment and balance were verified and a [12 mm CS ] polyethylene component was placed. Once the final components were placed an Irrisept lavage was performed and the wound was copiously irrigated with normal saline solution and the periarticular injection was given. the wound was closed in a layer-paez fashion using #1 alejandro ryl interrupted sutures for the arthrotomy, 2-0 interrupted vicryl suture for the subcuticular layer and aylin for final skin closure. A sterile compressive dressing was then placed. The patient was then awakened from anesthesia, transferred to the [place] and transferred to the PACU for recovery. My physician assistant cross country coach was a vital part of this case. He was important in appropriate retraction during the case, and protection of soft tissues during bony cuts. His intimate knowledge of the case and my steps aided in safe and expedient completion of the procedure as well as appropriate position of the leg during the case. He was also vital in assisting with closure under my direct supervision. Due to the complexity of this case, robotic arm was used to assist in the surgery to improve accuracy and clinical outcomes. Post-op Plan: DVT ppx; ASA 81 mg BID, thigh high compression stockings Follow up: in office in 2 weeks for wound check PT: to start POD #0 at hospital, outpatient PT should be arranged. Preoperative antibiotic: Ancef 1 gram IV Cy Carvajal DO Surgeon: Cy Carvajal ict support technicians: Pranav Colbert Type of Anesthesia: Spinal Anesthesiologist: Alen Fregoso Estimated Blood Loss (mL): 30 cc Fluids Replaced: 1000 cc crystalloid Admit VTE Documentation VTE Present on Admission: No VTE Mechan Device Prophylaxis: SCD's and Thigh High BHUMI Hose VTE Pharm Prophylaxis ordered?: Yes
--- NOTE | 2022-10-01 11:20 | RAD_ITS ---
STUDY: X-RAY - RIGHT KNEE REASON FOR EXAM: Female, 77 years old. Postoperative evaluation after total knee arthroplasty. TECHNIQUE: 2 view(s) of the knee. COMPARISON: January 16, 2020. FINDINGS: There is a 3 component total knee arthroplasty in anatomic position. There are expected post-operative findings. There are no complications. No other significant abnormality is identified. RAD/Knee 1 or 2 Views IMPRESSION: Total knee arthroplasty in anatomic alignment without complications. Electronically Signed: Pranav Go, at 11:30 EST ,
[2022-10-01] MEDS: Lactated Ringers 1,000 ML 125 ML IV (11:21)
--- NOTE | 2022-10-01 14:08 | SUR.PHASEII ---
PT IS WAITING FOR PHYSICAL THERAPY AT THIS TIME.
--- NOTE | 2022-10-01 14:54 | SUR.PHASEII ---
PT KNEE LEAKING DARK RED BLOOD, CONCETTA JEFFERSON AT BEDSIDE, PER JEFFERSON REINFORCED DRESSING AND PLACED A SANDBAG ON THE WOUND FOR 1 HR, THEN PT CAN COME DO THERAPY, WILL REDRESS THE WOUND PRIOR TO D/C PER JEFFERSON VERBAL ORDER.
--- NOTE | 2022-10-01 16:04 | SUR.PHASEII ---
PT IN ROOM WITH PT NOW.
--- NOTE | 2022-10-01 16:45 | SUR.PHASEII ---
PT NOTES MODERATE BLEEDING THROUGH KELECHI WRAP AFTER SHE WAS UP WITH PHYSICAL THERAPY. PT ASSISTED BACK TO BED AND SAND BAD PLACED BACK ON PT'S KNEE AND WRAPPED WITH MORE KELECHI WRAP.
--- NOTE | 2022-10-01 17:17 | SUR.PHASEII ---
CALLED MADE TO DR. JONAS LETTING HIM KNOW PT BLED AFTER PHYSICAL THERAPY. INSTRUCTED TO REDRESS AND SAND BAG HER LEG MORE AND ADMIT OBS OVER NIGHT.
[2022-10-01] MEDS: oxyCODONE 5 MG Tablet PO (17:30)
[2022-10-01] MEDS: 0.9% Saline Lock 10 ML Syringe IV (21:39)
[2022-10-02 00:51] VITALS: BP 125/71; PULSE 70; RESP 16; TEMP 36.9; O2SAT 95
--- NOTE | 2022-10-02 01:06 | NURSING ---
removed paula bandage and sandbag. minimal blood on dressing. pt assisted to the bathroom. pt tolerated well. increased drainage drainage on bandage. re-applied sandbag.
[2022-10-02 05:59] VITALS: BP 122/61; PULSE 75; RESP 16; TEMP 36.6; O2SAT 96
[2022-10-02 06:03] VITALS: BP 122/61; PULSE 75; RESP 16; TEMP 36.6; O2SAT 96
[2022-10-02] MEDS: oxyCODONE 5 MG Tablet PO ×2 (06:05→13:45)
[2022-10-02] MEDS: Acetaminophen 500 MG Tablet 1000 MG PO ×2 (06:05→13:45)
--- NOTE | 2022-10-02 07:53 | PCM.PN.ORT ---
Subjective Subjective Patient sitting up in bed awake. Patient states her pain has been very well managed. Patient denies any chest pain, shortness of breath, nausea vomiting. Nursing states they did change dressing 1 time last night. Patient has no other complaints at this time. Patient quite anxious to be discharged home. Objective Data Objective Data Vital Signs: Vital Signs Temp Pulse Resp BP Pulse Ox O2 Del Method O2 Flow Rate 98 F 75 16 122/61 H 96 Room Air 4 10/02/22 06:03 10/02/22 06:03 10/02/22 06:03 10/02/22 06:03 10/02/22 06:03 10/02/22 06:03 10/01/22 12:45 Oxygen Flow Rate (L/min) 4 Oxygen Delivery Method Room Air Weight: 49.714 kg Body Mass Index (BMI) 21.4 Intake & Output: Intake and Output for Last 24 Hours 09/30/22 10/01/22 10/02/22 23:59 23:59 23:59 Intake Total 2422.42 / 2422.42 300 / 300 Balance 2422.42 / 2422.42 300 / 300 Lab / Micro Data Result Diagrams: 09/24/22 15:09 09/24/22 15:09 Labs: Laboratory Results - last 24 hr 10/01/22 08:27: POC Glucose 145 H Micro: Microbiology 09/24/22 15:09 Swab (Method) Nasal Screen MRSA/MSSA - Final Radiography Diagnostic Testing: Radiology Impression Knee X-Ray 10/01/22 11:20 IMPRESSION: Total knee arthroplasty in anatomic alignment without complications. Electronically Signed: Pranav Go, at 11:30 EST , Physical Exam Narrative Upon entering the room I found patient sitting up in bed awake alert and oriented. Patient no respiratory distress, speaking in full sentences. Patient has full range of motion of the upper extremities without limitations. On exam of the right knee I found 2 small areas of blood soaked dressing. The more proximal area was approximately 2 cm in diameter. The distal spot was 1 cm in diameter at the distal end of the incision. The stab incisions on the midshaft tibia clean dry intact. Patient has good flexion-extension of the knee with mild pain. No calf tenderness. Neurovascular is otherwise intact. Const alert and oriented x3 General Appearance: cooperative HEENT normocephalic Eyes PERRL Resp normal respiratory effort Effort and Inspection: able to speak in complete sentences Extremity normal capillary refill Skin no rashes or lesions noted Neuro CN's II-XII intact bilaterally Psych mental status grossly normal Assessment & Plan Assessment/Plan (1) Status post total right knee replacement not using cement: PLAN: 1. Patient will continue all pain medication as prescribed. Patient has received her postop oxycodone, and the prescription has been filled 2. Resume Eliquis as prescribed preoperatively 3. Encourage incentive spirometry 4. Continue ice to the right knee 45 minutes each hour while awake 5. Therapy this morning if no additional bleeding discharge home after therapy 6. Change dressing prior to discharge 7. Follow-up as scheduled (2) Postoperative bleeding from incision:
--- NOTE | 2022-10-02 08:01 | DCINST_ITS ---
Discharge Instructions Diet Discharge Diet: No restrictions Activity Discharge Activity: Return to Normal Activity and May Shower May shower in (days): 4 May resume sexual activity in: No Restrictions Ice area for (Minutes): 45 Keep extremity elevated above heart level: Operative Extremity Dressing / Incision Call your doctor if your incision/area has: Sudden Increased Bleeding and Increased Redness Call your doctor if you observe: Fever of 101 or Higher Remove Dressing in: 1 week Follow Up Care Please Follow Up With: Pranav Colbert PA-C When: As scheduled Test Results: Test results from this visit will be discussed in further detail at your follow- up appointment, if applicable. Discharge Plan Admission Primary Reason for Your Visit: Postop right total knee arthroplasty Attending Provider: Cy Carvajal Primary Care Provider: Jame De La Garza Discharge Orders/Prescriptions Prescriptions: New acetaminophen 500 mg Tablet 1,000 mg PO Q8 14 Days Qty: 84 0RF oxycodone 5 mg Tablet 5 - 10 mg PO Q4H PRN PRN (Reason: Pain Score 4-10) 7 Days Qty: 1 0RF Continued sertraline 100 mg tablet 100 mg PO QHS pantoprazole 40 mg tablet,delayed release (DR/EC) 40 mg PO DAILY Prolia 60 mg/mL syringe 60 mg SC [id number] ascorbic acid (vitamin C) [Vitamin C] 500 mg Tablet 500 mg PO BID Eliquis 5 mg tablet 5 mg PO BID Hold Instructions: Resume on 08/06/22. diltiazem HCl 120 mg capsule,extended release 24hr 120 mg PO DAILY calcium carbonate-vitamin D3 600-125 mg-unit Tablet 1 tab PO DAILY Referrals / Follow Up: Jame De La Garza MD [Primary Care Provider] - Disposition Disposition (needs filled in before D/C Order can be placed): Home, Self Care
--- NOTE | 2022-10-02 09:25 | CASEMGMT ---
TAIWO AGUILERA Assessment: Face to Face with pt for initial transition planning/care coordination assessment. TAIWO AGUILERA introduced self and role at [facility], pt voices understanding and consents to assessment. Pt is A/O x4 and answers all questions appropriately at this time. Pt sitting up in bed eating breakfast in no distress. Care providers, pharmacy, and demographics verified/updated. Admitting Dx: R TKR PCP:Frederic Specialists:Tyrelapsloane, ortho; Shanell, uro; Nilson, puljoey Preferred Pharmacy: [facility] Insurance: [email or web address] [facility] Prescription Benefit: yes LW/HPOA: Pt states she has a LW/DPOA and her DPOA is her son Jaxon Palmer. Pt is aware this is not on file at [facility] and she may bring in to be scanned into her chart. LNOK: Deion Kenney, Living Arrangements: Pt lives in a single story home with 2 steps to enter. Pt reports she is I in ADL's and denies concerns at home. Transportation: Pt drives self and denies concerns with transportation. She states her sister will transport her to medical appts post surgery. DME/HHC/SNF: Pt has a standard walker, canes and grab bars in the bathroom and in the tub at home. Pt states [facility] was supposed to start today for PT. She denies SNF stays. Pt states no concerns with going home at time of dc. Message to Deyanira at [facility], PT will start tomorrow. Pt states no further concerns/needs. CM to follow. Advised pt to ask CM if any further question/concerns/needs arise, voices understanding. Pt Goal: Home with [facility] Plan: Home with [facility]
[2022-10-02 09:35] VITALS: BP 126/76; PULSE 75; RESP 18; TEMP 36.4; O2SAT 99
--- NOTE | 2022-10-02 11:01 | PHA.DC.MR ---
Pharmacy Service has performed discharge medication reconciliation for this patient. The patient's discharge medication list was reviewed for discrepancies and discrepancies were resolved. Home Medications denosumab 60 mg/mL subcutaneous syringe (Prolia) 60 mg subcut [id number] 12/14/20 pantoprazole 40 mg tablet,delayed release 40 mg PO DAILY 12/14/20 sertraline 100 mg tablet 100 mg PO QHS 12/14/20 ascorbic acid (vitamin C) 500 mg tablet (Vitamin C) 500 mg PO BID 08/21/21 apixaban 5 mg tablet (Eliquis) 5 mg PO BID 07/30/22 diltiazem HCl 120 mg capsule,extended release 24 hr 120 mg PO DAILY bp/heart 07/30/22 calcium carbonate-vitamin D3 600 mg-125 unit tablet 1 tab PO DAILY 09/17/22 acetaminophen 500 mg tablet 1,000 mg PO Q8 Pain 14 days #84 tabs 10/02/22 oxycodone 5 mg tablet 5 - 10 mg PO Q4H PRN PRN Pain Score 4-10 7 days #1 TAB 10/02/22
[2022-10-02 13:42] VITALS: BP 114/61; PULSE 84; RESP 18; TEMP 37.2; O2SAT 98
[2022-10-02 15:08] VITALS: BP 152/76
== END 2022-10-02 15:19 | disposition home or self-care (01) ==
LOC: MS3 10-02 01:59 → SDC 10-02 09:51 → MS3 10-02 09:51
PROVIDERS: Anesthesiology; Admitting Provider Orthopaedic Surgery; PCP Family Medicine; Referring Provider Orthopaedic Surgery; Visit Provider Orthopaedic Surgery
PROC: 0SRC0JZ Replacement of Right Knee Joint with Synthetic Substitute, Open Approach (ICD-10-PCS; CPT 27447; principal; 2022-10-01 10:00)
DX: M17.11 Unilateral primary osteoarthritis, right knee (principal); M06.9 Rheumatoid arthritis, unspecified; I48.92 Unspecified atrial flutter; I48.0 Paroxysmal atrial fibrillation; Z86.16 Personal history of COVID-19; R06.09 Other forms of dyspnea; Z79.01 Long term (current) use of 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; Z79.899 Other long term (current) drug therapy; I10 Essential (primary) hypertension; K21.9 Gastro-esophageal reflux disease without esophagitis; E78.2 Mixed hyperlipidemia; G47.33 Obstructive sleep apnea (adult) (pediatric); I25.10 Atherosclerotic heart disease of native coronary artery without angina pectoris
CPT/HCPCS: 27447; S2900; 01402; 64447; 36415; 73560; 80048; 82040; 82962; 83036; 83735; 85025; 87081; 88305; 88311; 97116; 97162; 97530; 99218; 99251; C1776; J7120; A4216; G0378; G0463; J2405; J3475

== ENCOUNTER → 2023-04-11 | Outpatient (CLI) | payer MEDICARE, SELFPAY ==
--- NOTE | 2023-04-11 12:41 | MRI_ITS ---
STUDY: MRI LUMBAR SPINE WITHOUT CONTRAST REASON FOR EXAM: Female, 78 years old. RADICULOPATHY, OSTEOPOROSIS RISK, LBP TECHNIQUE: MRI examination lumbar spine fusion protocol including multiplanar multiecho noncontrast imaging. Contrast: No contrast administered. COMPARISON: None FINDINGS: Vertebral bodies and alignment. 1. Vertebral body height and alignment are maintained. Multilevel disc changes and heterogeneous marrow signal. There is edema and a moderate type I endplate changes at L3-4. No evidence of disc edema. No paraspinal fluid collections identified. 2. No evidence of occult fracture or malalignment. 3. Paraspinous soft tissue planes have normal appearance. Normal appearance of the muscular fascial planes of the erector spinae. 4. Normal appearance of the sacrum and sacroiliac joints. Intervertebral disks levels. T12-L1: Disc desiccation without disc herniation canal or foraminal narrowing. L1-2: Disc desiccation, minimal disc bulge without disc herniation canal or foraminal narrowing. Mild facet arthropathy. L2-3: Disc desiccation, broad-based posterior disc bulge, no evidence of canal or foraminal narrowing. Facet and ligamentum flavum hypertrophic changes are present. L3-4: Disc desiccation, broad-based chronic appearing disc bulge/borderline protrusion with deformity the anterior epidural space. No canal stenosis. Mild endplate erosions noted. Facet and ligamentum flavum hypertrophic changes are present. Mild crowding of nerve roots in the lateral recesses without nerve root impingement. Neural foramina are widely patent. L4-5: Disc desiccation, broad-based concentric disc protrusion, deformity of the anterior epidural space at, central thecal sac is maintained at approximately 10 mm. Facet and ligament flavum hypertrophic changes are present. There is effacement of the lateral recesses greater on the LEFT than RIGHT, potential of early LEFT L5 nerve root impingement in the LEFT lateral recess. Mild foraminal narrowing without grant nerve root impingement. L5-S1: Disc desiccation, broad-based chronic appearing disc bulge without evidence of disc herniation or canal stenosis. Facet hypertrophic changes without foraminal stenosis. Spinal cord: Normal appearance of the spinal cord and conus. Conus is located at L1. Cauda equina has normal appearance. No evidence of cord compression or edema. No intramedullary signal abnormality noted. MRI/Spine Lumbar (Routine) IMPRESSION: 1. Diffuse multilevel lumbar spondylosis. There are Modic type I endplate changes at L3-4. There is broad-based posterior disc bulge/borderline protrusion at L3-4 without grant canal stenosis or nerve root impingement. 2. Broad-based concentric disc protrusion at L4-5, no canal stenosis however effacement of the anterior epidural space and narrowing of the lateral recesses. Potential early LEFT L5 nerve root impingement within the LEFT lateral recess. 3. No evidence of cord compression. No intramedullary signal abnormality noted. Electronically Signed: Karthik Johnston MD at 21:16 EDT ,
== END | disposition home or self-care (01) ==
PROVIDERS: PCP Family Medicine; Referring Provider Orthopaedic Surgery; Visit Provider Orthopaedic Surgery
DX: M54.16 Radiculopathy, lumbar region (principal); Z96.651 Presence of right artificial knee joint
CPT/HCPCS: 72148

== ENCOUNTER → 2023-06-14 | Outpatient (CLI) | payer MEDICARE, SELFPAY ==
[2023-06-14 15:00] LABS: Absolute Lymphocyte Count 1.33 X10^3/uL (0.83-4.51); Absolute Neutrophil Count 3.6 X10^3/uL (2.0-7.7); Basophil# 0.02 X10^3/uL; Basophil% 0.4 % (0-1); Eosinophil# 0.03 X10^3/uL; Eosinophils% 0.5 % (0-5); Hematocrit 42.4 % (37-47); Hemoglobin 12.8 g/dL (12.0-15.0); Lymphocyte # 1.33 X10^3/ul (0.83-4.51); Lymphocyte % 24.4 % (19-41); Mean Corp Hgb Conc 30.2 g/dL (32-36); Mean Corpuscular Hgb 27.5 pg (27.0-32.0); Mean Platelet Vol. 11.9 fl (6.2-12.0); Monocyte# 0.43 X10^3/uL; Monocyte% 7.9 % (0-10); NRBC Flagged by Analyzer 0 % (0-5); Neutrophil # 3.63 X10^3/uL (2.7-7.7); Neutrophil % 66.4 % (47-70); Platelet Count 142 K/mm3 (150-450); RBC Distribution Width CV 15.5 % (11.6-14.6); RBC Distribution Width SD 51.2 fl (35.1-43.9); Red Blood Count 4.66 M/mm3 (4.2-5.4); White Blood Count 5.5 K/mm3 (4.4-11.0)
[2023-06-14 15:47] LABS: AST(SGOT) 27 U/L (15-37); Alanine Aminotransfer ALT/SGPT 20 U/L (13-56); Albumin, Serum 3.7 g/dL (3.2-5.0); Alkaline Phosphatase 55 U/L (45-117); Anion Gap 2 (5-15); BUN 14 mg/dL (7-18); BUN/Creat Ratio 17.3 RATIO (10-20); Calcium,Total 8.9 mg/dL (8.5-10.1); Chloride 108 mmol/L (98-107); Creatinine, Serum 0.81 mg/dL (0.55-1.02); EST Glomerular Filtration Rate 73 mL/min (>60); Est Glom Filt Rate - Afr Amer 88 mL/min (>60); Globulin 3.8 g/dL (2.2-4.2); Glucose 104 mg/dL (74-106); Potassium 3.7 mmol/L (3.5-5.1); Protein, Total 7.5 g/dL (6.4-8.2); Sodium Level 141 mmol/L (136-145); Thyroid Stim Hormone (TSH) 1.87 uIU/mL (0.358-3.74)
== END | disposition home or self-care (01) ==
LOC: MTLAB 12:38
PROVIDERS: PCP Family Medicine; Referring Provider Family Medicine; Visit Provider Family Medicine
DX: I48.91 Unspecified atrial fibrillation (principal); J84.9 Interstitial pulmonary disease, unspecified
CPT/HCPCS: 36415; 80053; 84443; 85025

== ENCOUNTER 2023-10-12 14:55 | Emergency (ER) | payer MEDICARE, SELFPAY ==
[2023-10-12 14:55] VITALS: BP 144/101; PULSE 112; RESP 16; TEMP 36; O2SAT 98; BMI 23.3
--- NOTE | 2023-10-12 15:27 | EKG12_ITS ---
Test Reason : HEADACHE Blood Pressure : / mmHG Vent. Rate : 114 BPM Atrial Rate : 228 BPM P-R Int : 000 ms QRS Dur : 076 ms QT Int : 334 ms P-R-T Axes : -80 018 087 degrees QTc Int : 460 ms Atrial flutter with 2:1 A-V conduction Nonspecific ST and T wave abnormality Abnormal ECG Confirmed by ALEJANDRA GLOVER, LUKAS ([id number]), metropolitan editor BENJAMIN DAVDI ([id number]) on 10/14/2023 9:52:45 AM Referred By: Confirmed By:LUKAS ROBERTS MD
[2023-10-12 15:52] LABS: Absolute Lymphocyte Count 1.03 X10^3/uL (0.83-4.51); Basophil# 0.03 X10^3/uL; Basophil% 0.7 % (0-1); Eosinophil# 0.03 X10^3/uL; Eosinophils% 0.7 % (0-5); Hematocrit 41.9 % (37-47); Hemoglobin 13.5 g/dL (12.0-15.0); Lymphocyte # 1.03 X10^3/ul (0.83-4.51); Mean Corp Hgb Conc 32.2 g/dL (32-36); Mean Corpuscular Hgb 30.2 pg (27.0-32.0); Mean Corpuscular Volume 93.7 fL (81-99); Mean Platelet Vol. 10.7 fl (6.2-12.0); Monocyte# 0.36 X10^3/uL; NRBC Flagged by Analyzer 0 % (0-5); Neutrophil % 66.9 % (47-70); Platelet Count 119 K/mm3 (150-450); RBC Distribution Width CV 13.6 % (11.6-14.6); Red Blood Count 4.47 M/mm3 (4.2-5.4); White Blood Count 4.5 K/mm3 (4.4-11.0)
[2023-10-12 16:07] LABS: ALB/GLOB Ratio 1.1 RATIO (0.9-2.4); AST(SGOT) 20 U/L (15-37); Alanine Aminotransfer ALT/SGPT 22 U/L (13-56); Albumin, Serum 3.6 g/dL (3.2-5.0); Alkaline Phosphatase 70 U/L (45-117); Anion Gap 5 (5-15); BUN 15 mg/dL (7-18); BUN/Creat Ratio 20.3 RATIO (10-20); Calcium,Total 8.9 mg/dL (8.5-10.1); Chloride 106 mmol/L (98-107); Creatinine, Serum 0.74 mg/dL (0.55-1.02); EST Glomerular Filtration Rate 81 mL/min (>60); Est Glom Filt Rate - Afr Amer 98 mL/min (>60); Globulin 3.4 g/dL (2.2-4.2); Glucose 125 mg/dL (74-106); Potassium 3.8 mmol/L (3.5-5.1); Sodium Level 141 mmol/L (136-145); Troponin-I HS 16 pg/mL (3.0-54.0)
--- NOTE | 2023-10-12 16:09 | CT_ITS ---
EXAM: CT HEAD WITHOUT INTRAVENOUS CONTRAST CLINICAL INDICATION: headache TECHNIQUE: Multiple axial images were obtained of the head without intravenous contrast. This CT exam was performed using one or more of the following dose reduction techniques: automated exposure control, adjustment of the mA and/or kV according to patient size, and/or use of iterative reconstruction technique. COMPARISON: CT, 02/12/2022 FINDINGS: BRAIN AND EXTRA-AXIAL SPACES: Small chronic lacunar infarct within the left putamen. There is non-specific periventricular hypoattenuation which is most commonly related to chronic microvascular ischemic disease in a patient of this age. There is no mass, mass-effect, or shift of the midline structures. No evidence of acute infarct or acute intracranial hemorrhage. There is no evidence of pathologic extra-axial fluid. There is no hydrocephalus. Patent basal cisterns. BONES/JOINTS: No significant abnormality. No discrete lytic or blastic abnormalities. VASCULATURE: Arteriosclerosis. SINUSES: No significant findings. MASTOID AIR CELLS: No significant effusion. ORBITS: Bilateral ocular lens extraction presumptively for the treatment of cataracts. Otherwise, no acute orbital pathology. CT/Brain/Head without Contrast IMPRESSION: Chronic ischemic changes. No CT evidence of acute intracranial pathology. Electronically Signed: Mundo Strauss DO at 17:23 EST ,
[2023-10-12] MEDS: DiphenhydrAMINE 50 MG/ML Syringe 25 MG IV (16:17)
[2023-10-12] MEDS: Metoclopramide 10 MG/2 ML Vial IV (16:17)
[2023-10-12] MEDS: 0.9% Normal Saline (1000mL) 1,000 ML 999 ML IV (16:18)
[2023-10-12 17:45] VITALS: BP 167/113; PULSE 114; RESP 18; O2SAT 94
[2023-10-12 17:47] LABS: Bacteria 0 SEEN /hpf (None Seen); Color, Urine Straw (Yellow); Glucose, Dipstick Normal (Normal); Ketone-Dipstick Negative (Negative); Leukocyte Esterase-Dipstick Negative /ul (Negative); Mucous, Urine 0 SEEN /hpf (<or=2+); Nitrite-Dipstick Negative (Negative); Occult Blood-Urine Negative /ul (Negative); Protein-Dipstick Negative (Negative); Red Blood Cells-Urine 0 SEEN /hpf (0-5); Squamous Epithelial Cells - UA 0 SEEN /hpf (5-10); Urine Bilirubin Dipstick Negative (Negative); Urine Clarity Clear (Clear); Urine Urobilinogen Normal (Normal); White Blood Cells 0 SEEN /hpf (0-5)
[2023-10-12 20:37] VITALS: BP 144/98; PULSE 98; RESP 16; TEMP 36.6; O2SAT 98
--- NOTE | 2023-10-12 22:18 | EDS_ITS ---
HPI History of Present Illness Chief Complaint: Nausea/Vomiting Narrative Narrative: 78-year-old female presenting with months of headache intermittently. States worse in the morning. She states that now she is having nausea and vomiting. She has not had this evaluated by her primary care physician. She has not been referred to neurologist. No history of migraines. No history of trauma. Patient states that her father of a tumor in his brain. Patient states that she does not have any abdominal pain. She has not had fever or chills. No urinary or vaginal complaints. No constipation or diarrhea. 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 drug [facility] current use of anticoagulant Mixed hyperlipidemia Non-smoker On amiodarone therapy CLARISSE (obstructive sleep apnea) Paroxysmal atrial fibrillation Post-menopausal Pulmonary hypertension Restless legs Rheumatoid arthritis Shortness of breath on exertion Sleep apnea Wears dentures Wears hearing aid Home Medications denosumab 60 mg/mL subcutaneous syringe (Prolia) 60 mg subcut [id number] 12/14/20 [History Last Taken 04/25/22] pantoprazole 40 mg tablet,delayed release 40 mg PO DAILY 12/14/20 [History Last Taken 09/26/22] sertraline 100 mg tablet 100 mg PO QHS 12/14/20 [History Last Taken 09/30/22] ascorbic acid (vitamin C) 500 mg tablet (Vitamin C) 500 mg PO BID 08/21/21 [History Last Taken 09/26/22] calcium carbonate-vitamin D3 600 mg-125 unit tablet 1 tab PO DAILY 09/17/22 [History Last Taken 09/26/22] acetaminophen 500 mg tablet 1,000 mg (2 x 500 mg) PO Q8 Pain 14 days #84 tabs 10/02/22 [Rx Last Taken Unknown] oxycodone 5 mg tablet 5 - 10 mg (1 - 2 x 5 mg) PO Q4H PRN PRN Pain Score 4-10 7 days #1 TAB 10/02/22 [Rx Last Taken Unknown] diltiazem HCl 120 mg capsule,extended release 24 hr See Rx Instructions .Route .COMPLEX #90 CAPSULES 10/24/22 [Rx Last Taken Unknown] apixaban 5 mg tablet (Eliquis) 5 mg PO BID #180 tabs 08/01/23 [Rx Last Taken Unknown] ondansetron 4 mg disintegrating tablet 4 mg PO Q8H PRN PRN Nausea #20 tabs 10/12/23 [Rx Last Taken Unknown] Allergy/AdvReac Type Severity Reaction Status Date / Time No Known Allergies Allergy Verified 10/12/23 14:55 Family History Mother Hypertension Arthritis Heart disease Father Cancer Brother Cancer Son CVA (cerebral vascular accident) Diabetes Brother TIA (transient ischemic attack) Sister Cancer kidney cancer Thyroid disorder Surgical History History of appendectomy History of arthroscopy of right knee History of atrial septal defect repair History of cardiac catheterization History of cholecystectomy History of hysterectomy History of open heart surgery Hx of cystoscopy Status post laparoscopic Himanshu fundoplication (~11/2018) Status post right knee replacement Social History Smoking Status: Never smoker alcohol intake: never substance use type: does not use caffeine: Yes Type: coffee Number of servings: 1 what type of physical activity do you participate in: walking frequency: daily duration: 30-45 minutes/day seatbelt use: always do you feel safe at home: Yes ROS ROS ED Constitutional Constitutional ED: Denies chills, fever(s) or sweats Eyes Eyes: Denies blurry vision or change in vision ENT ENT ED: Denies ear pain or sore throat Cardiovascular Cardiovascular: Denies chest pain, palpitations or racing heartbeat Respiratory/Chest Respiratory/Chest: Denies cough, dyspnea or sputum Gastrointestinal Gastrointestinal: Reports nausea and vomiting; Denies abdominal pain, constipation or diarrhea Genitourinary Genitourinary ED: Denies dysuria, hematuria or urinary frequency Musculoskeletal Musculoskeletal: Denies arthralgias, myalgias or neck pain Integumentary Denies abscess, Abrasions or rash Neurologic Neurologic: Reports headache(s); Denies paresthesias or weakness Psychiatric Psychiatric: Denies anxiety, depression, suicidal ideation or suicidal thoughts Endocrine Endocrinology: Denies polydipsia or polyuria EXAM Physical Exam Const Vital Signs: 10/12/23 14:55 10/12/23 17:45 10/12/23 20:37 Temperature 96.8 F L 98 F Temperature Source Temporal Pulse Rate 112 H 114 H 98 Respiratory Rate 16 18 16 Blood Pressure 144/101 H 167/113 H 144/98 H Blood Pressure Mean 115 131 113 Pulse Ox 98 94 98 Oxygen Delivery Method Room Air Room Air Positive well nourished General Appearance ED: NAD; Negative for pallor HEENT Reports normocephalic, TM's clear and moist mucous membranes atraumatic and trauma Tympanic Membrane ED: Yes TM's clear Eyes PERRL and EOMs intact bilaterally Neck no lymphadenopathy, supple and no meningeal signs Resp normal respiratory effort and clear to auscultation bilaterally Auscultation: Negative for rales, rhonchi or wheezes Cardio regular rate and regular rhythm GI non-tender Extremity normal to inspection General Extremety ED: Negative for edema General Extremity: Negative for edema Neuro oriented x3, CN's II-XII intact bilaterally and no sensory deficits noted Sensorium / Orientation: awake and alert Motor Exam: strength 5/5 throughout Psych mental status grossly normal Mood & Affect: Negative for anxious or tearful Skin General Skin Exam: Negative for jaundice or pallor MDM MDM MDM Narrative Medical decision making narrative: Patient presenting with headaches, nausea, vomiting. She reports a history of her father having a brain tumor. Original includes migraine, atypical headache, dehydration, electrolyte normalities. CBC within normal limits. CMP is normal. Urinalysis negative for infection. CT of the brain was performed and is negative. Patient medicated with Reglan, Benadryl and states her headache is resolved and her nausea and vomiting are also better. EKG was performed on my interpretation this shows a flutter with 2 1 conduction and she has a history of A-fib. Patient anticoagulated so I will suspicion for PE. Patient given IV fluids and her heart rate is better now at 98. Headache is improved. Patient will be discharged home with Zofran. She is counseled take Tylenol for headaches. Return precautions discussed. Impression: 1. Headache 2. Nausea/vomiting Lab Data Attestation: I reviewed the patient's lab results. Labs: Laboratory Results - last 24 hr 10/12/23 10/12/23 15:35 17:42 WBC 4.5 RBC 4.47 Hgb 13.5 Hct 41.9 MCV 93.7 MCH 30.2 MCHC 32.2 RDW Std Deviation 47.0 H RDW Coeff of Reji 13.6 Plt Count 119 L MPV 10.7 Immature Gran % (Auto) 0.700 Neut % (Auto) 66.9 Lymph % (Auto) 23.0 [place] % (Auto) 8.0 Eos % (Auto) 0.7 Baso % (Auto) 0.7 Absolute Neuts (auto) 3.0 Absolute Lymphs (auto) 1.03 Nucleated RBC % 0 Sodium 141 Potassium 3.8 Chloride 106 Carbon Dioxide 30.0 Anion Gap 5 BUN 15 Creatinine 0.74 Estim Creat Clear Calc 33.30 Est GFR (MDRD) Af Amer 98 Est GFR (MDRD) Non-Af 81 BUN/Creatinine Ratio 20.3 H Glucose 125 H Calcium 8.9 Total Bilirubin 0.80 AST 20 ALT 22 Alkaline Phosphatase 70 Troponin I High Sens 16 Total Protein 7.0 Albumin 3.6 Globulin 3.4 Albumin/Globulin Ratio 1.1 Urine Color Straw Urine Clarity Clear Urine pH 7.0 Ur Specific [place] 1.010 Urine Protein Negative Urine Glucose (UA) Normal Urine Ketones Negative Urine Occult Blood Negative Urine Nitrite Negative Urine Bilirubin Negative Urine Urobilinogen Normal Ur Leukocyte Esterase Negative Urine RBC 0 SEEN Urine WBC 0 SEEN Ur Squamous Epith Cells 0 SEEN Urine Bacteria 0 SEEN Urine Mucus 0 SEEN Radiography Diagnostic Testing: Clinical Impression(s) from Imaging Studies Brain CT 10/12/23 16:09 IMPRESSION: Chronic ischemic changes. No CT evidence of acute intracranial pathology. Electronically Signed: Mundo Strauss DO at 17:23 EST , Discharge Plan Triage Chief Complaint: Nausea/Vomiting Other Complaint: Headache ED Provider: Earnest Haji Dx/Rx/DC Orders Instructions: ED Headache Unspecified, ED Vomiting (Adult) Prescriptions: New ondansetron 4 mg tablet,disintegrating 4 mg PO Q8H PRN PRN (Reason: Nausea) Qty: 20 0RF No Action sertraline 100 mg tablet 100 mg PO QHS pantoprazole 40 mg tablet,delayed release (DR/EC) 40 mg PO DAILY Prolia 60 mg/mL syringe 60 mg SC [id number] ascorbic acid (vitamin C) [Vitamin C] 500 mg Tablet 500 mg PO BID calcium carbonate-vitamin D3 600-125 mg-unit Tablet 1 tab PO DAILY acetaminophen 500 mg Tablet 1,000 mg PO Q8 14 Days Qty: 84 0RF oxycodone 5 mg Tablet 5 - 10 mg PO Q4H PRN PRN (Reason: Pain Score 4-10) 7 Days Qty: 1 0RF diltiazem HCl 120 mg capsule,extended release 24hr See Rx Instructions .ROUTE .COMPLEX Qty: 90 3RF Dose Instruction: TAKE 1 CAPSULE EVERY DAY FOR BLOOD PRESSURE AND HEART Rx Instructions: TAKE 1 CAPSULE EVERY DAY FOR BLOOD PRESSURE AND HEART Eliquis 5 mg tablet 5 mg PO BID Qty: 180 3RF Hold Instructions: Resume on 08/06/22. Primary Care Provider: Jame De La Garza Referrals: Jame De La Garza MD [Primary Care Provider] - Disposition Disposition: Home, Self Care Discharge Date/Time: 10/12/23 20:38
== END 2023-10-12 20:38 | disposition home or self-care (01) ==
PROVIDERS: Emergency Provider Student in an Organized Health Care Education/Training Program; PCP Family Medicine; Visit Provider Student in an Organized Health Care Education/Training Program
DX: R51.9 Headache, unspecified (principal); R11.2 Nausea with vomiting, unspecified; G47.33 Obstructive sleep apnea (adult) (pediatric)
CPT/HCPCS: 70450; 80053; 81001; 84484; 85025; 93005; 96374; 96375; 99285; J7030; A4216

== ENCOUNTER → 2023-12-03 | Outpatient (CLI) | payer MEDICARE, SELFPAY ==
--- NOTE | 2023-12-03 13:39 | RAD_ITS ---
STUDY: X-RAY - CERVICAL SPINE REASON FOR EXAM: Female, 78 years old. CERVICAL DEGENERATIVE DISC TECHNIQUE: 5 view(s) of the cervical spine were obtained. COMPARISON: None FINDINGS: Normal anterior atlantoaxial articulation. Normal odontoid process. Bones are demineralized. Normal cervical lordosis. Normal vertebral bodies and endplates. Mild disc space narrowing throughout the cervical spine. Normal visualized intervertebral neuroforamina. The soft tissue structures are unremarkable. RAD/Cerv Spine 4 or 5 Views IMPRESSION: Mild degenerative changes, no acute findings Electronically Signed: Mario Wang MD at 17:07 EST ,
== END | disposition home or self-care (01) ==
LOC: MTRAD 13:37
PROVIDERS: PCP Family Medicine; Referring Provider Clinical Nurse Specialist Adult Health; Visit Provider Clinical Nurse Specialist Adult Health
DX: M50.30 Other cervical disc degeneration, unspecified cervical region (principal)
CPT/HCPCS: 72050

== ENCOUNTER → 2024-02-07 | Outpatient (CLI) | payer MEDICARE, SELFPAY | END | disposition home or self-care (01) | PROVIDERS: PCP Family Medicine; Referring Provider Physician Assistant Medical; Visit Provider Physician Assistant Medical | DX: R55 Syncope and collapse (principal); I48.0 Paroxysmal atrial fibrillation | CPT/HCPCS: 93225; 93226 ==

== ENCOUNTER → 2024-05-26 | Outpatient (CLI) | payer MEDICARE, SELFPAY ==
[2024-05-26 15:22] LABS: Absolute Lymphocyte Count 1.23 X10^3/uL (0.83-4.51); Absolute Neutrophil Count 3.1 X10^3/uL (2.0-7.7); Basophil# 0.03 X10^3/uL; Basophil% 0.6 % (0-1); Eosinophil# 0.05 X10^3/uL; Hematocrit 41.9 % (37-47); Hemoglobin 12.5 g/dL (12.0-15.0); Lymphocyte # 1.23 X10^3/ul (0.83-4.51); Lymphocyte % 25.6 % (19-41); Mean Corp Hgb Conc 29.8 g/dL (32-36); Mean Corpuscular Hgb 26.5 pg (27.0-32.0); Mean Corpuscular Volume 88.8 fL (81-99); Mean Platelet Vol. 11.5 fl (6.2-12.0); Monocyte# 0.38 X10^3/uL; Monocyte% 7.9 % (0-10); NRBC Flagged by Analyzer 0 % (0-5); Neutrophil # 3.11 X10^3/uL (2.7-7.7); Neutrophil % 64.7 % (47-70); Platelet Count 128 K/mm3 (150-450); RBC Distribution Width CV 16.3 % (11.6-14.6); RBC Distribution Width SD 53.2 fl (35.1-43.9); Red Blood Count 4.72 M/mm3 (4.2-5.4); White Blood Count 4.8 K/mm3 (4.4-11.0)
[2024-05-26 15:55] LABS: Microalbumin,Random Urine 19.5 mg/L (NO RANGE EST.); Microalbumin:Creatinine Ratio 25.6 mg/g CRE (<30 mg/g CRE)
[2024-05-26 16:06] LABS: ALB/GLOB Ratio 0.9 RATIO (0.9-2.4); AST(SGOT) 21 U/L (15-37); Alanine Aminotransfer ALT/SGPT 17 U/L (13-56); Albumin, Serum 3.6 g/dL (3.2-5.0); Alkaline Phosphatase 61 U/L (45-117); Anion Gap 6 (5-15); BUN 15 mg/dL (7-18); BUN/Creat Ratio 20.4 RATIO (10-20); Calcium,Total 8.9 mg/dL (8.5-10.1); Chloride 104 mmol/L (98-107); Creatinine, Serum 0.74 mg/dL (0.55-1.02); EST Glomerular Filtration Rate 81 mL/min (>60); Est Glom Filt Rate - Afr Amer 98 mL/min (>60); Globulin 3.8 g/dL (2.2-4.2); Glucose 106 mg/dL (74-106); Potassium 3.6 mmol/L (3.5-5.1); Protein, Total 7.4 g/dL (6.4-8.2); Sodium Level 139 mmol/L (136-145); Thyroid Stim Hormone (TSH) 1.76 uIU/mL (0.358-3.74)
== END | disposition home or self-care (01) ==
LOC: MFPLAB 11:50
PROVIDERS: PCP Family Medicine; Visit Provider Family Medicine
DX: D69.6 Thrombocytopenia, unspecified (principal); I10 Essential (primary) hypertension
CPT/HCPCS: 36415; 80053; 82043; 82570; 84443; 85025

== ENCOUNTER 2024-07-08 16:06 | Emergency (ER) | payer MEDICARE, SELFPAY ==
[2024-07-08] VITALS (10 sets, daily range): BP systolic 141–160; BP diastolic 84–99; PULSE 92–97; RESP 16–30; TEMP 36.4–36.6; O2SAT 93–98; BMI 24.1
--- NOTE | 2024-07-08 16:20 | MRI_ITS ---
We are attempting to reach an attending provider to discuss findings. An addendum with communication details will be sent when the communication is complete. STUDY: MRI CERVICAL SPINE REASON FOR EXAM: Female, 79 years old. Neck pain -- Concern for epidural hematoma -- Recent steroid injection at C7-T1 TECHNIQUE: MRI examination of the cervical spine obtained with standard protocol including multiplanar multiecho Noncontrast imaging. Contrast: No contrast administered COMPARISON: No pertinent prior examinations for comparison. FINDINGS: Vertebral bodies and alignment: 1. Vertebral body height and alignment are maintained. No marrow edema or occult fracture.. 2. Prevertebral soft tissue planes have normal appearance. Normal appearance the odontoid process and alignment of the craniocervical junction. 3. There is focal area of subcutaneous and muscular edema posteriorly at the T1-T2 level. Remaining muscular fascial planes have normal appearance, and the posterior ligamentous support structure the cervical spine is intact. Intervertebral disc levels: C2-3: Disc desiccation, no evidence of disc herniation canal or foraminal stenosis. C3-4: Disc desiccation, no disc herniation noted. There is extensive posterior epidural fluid collection which extends superiorly to level of the posterior arch of C2 consistent with a large epidural abscess versus hematoma. This does extend the full extent of the cervical spine and extends into the thoracic spine to approximately the T8 level. At C3-4, the epidural fluid measures approximately 3 mm in thickness. There is narrowing of the thecal sac, and effacement of the CSF space. The AP dimension of the thecal sac estimated at 7.6 mm. No cord compression. Neural foramina are mildly narrowed due to uncovertebral joint and facet changes. Normal appearance the endplate. C4-5: Disc desiccation, broad-based posterior disc bulge/borderline protrusion. Prominent posterior epidural fluid collection, central thecal sac is narrowed to approximately 5 mm with effacement of the spinal cord and mild flattening without evidence of cord edema or hemorrhage. The neural foramina are widely patent. Facet hypertrophic changes are present. C5-6: Disc desiccation. No disc herniation. There however is prominence of the posterior epidural fluid collection with maximal thickness of approximately 5 mm. Effacement of CSF space. Thecal sac measures approximately 6 mm. No cord compression. Mild RIGHT foraminal stenosis. C6-7: Disc desiccation without disc herniation. Posterior epidural fluid collection is noted, currently estimated at 5 mm. Effacement of CSF space. No evidence of cord compression. Neural foramina appear widely patent.. C7-T1: No disc herniation. There is disc desiccation. Posterior epidural fluid collection is again noted. Neural foramina appear widely patent. Spinal CORD: There is normal appearance the spinal cord. No intramedullary signal abnormality, masses or syrinx. Normal appearance of the cervical medullary junction. There is cord displacement due to the large posterior epidural fluid collection/hematoma versus abscess. MRI/Spine Cervical (Routine) IMPRESSION: 1. Extensive posterior epidural abscess versus hematoma extending throughout the full extent of the cervical canal. Appears to terminate superiorly at posterior arch of C2, and extends inferiorly to the level of T8 in the mid thoracic spine. Significant effacement of the CSF space throughout spinal canal due to the posterior epidural fluid. Displacement of the cord without evidence of cord compression or edema. No cord hemorrhage. 2. Multilevel cervical spondylosis, there is broad-based disc bulge/borderline protrusion at C4-5. 3. Normal appearance the visualized spinal cord without evidence of signal abnormality however displacement due to large posterior epidural abscess. No cord edema or hemorrhage. 4. Edema is noted posteriorly in the muscular fascial planes at the T1-T2 level, of uncertain etiology. Electronically Signed: Karthik Johnston MD at 19:56 EDT ,
--- NOTE | 2024-07-08 16:20 | MRI_ITS ---
STUDY: MRI THORACIC SPINE WithoutCONTRAST REASON FOR EXAM: Female, 79 years old. Pain -- Concern for epidural hematoma TECHNIQUE: MRI examination of the thoracic spine obtained with a standard protocol including multiplanar multiecho noncontrastimaging. Contrast: No contrast administered. COMPARISON: Comparison is made to MRI of the cervical spine obtained same date. FINDINGS: VERTEBRAL BODIES: 1. Vertebral body height and alignment are maintained. Prominent hemangioma present at T8. Small hemangioma at T12. 2. No evidence of fracture marrow edema or destructive marrow replacement process. 3. There is note of an extensive posterior epidural fluid collection which extends from approximately the T8-T9 level, superiorly into the cervical spine as previously noted. There is minimal thickness in the T8-T9 level estimated at approximately 1 to 2 mm, however significantly thickened superiorly, measuring approximately 9 mm at the T2 level. INTERVERTEBRAL DISC SPACES: T1-2, T2-3, T3-4, T4-5, T5-6, T6-7, T7-8, T8-9, T9-10, T10-11, T11-12: 1. Intervertebral disc spaces are maintained, there is diffuse disc desiccation without evidence of disc herniation. There is broad-based disc bulge at T12-L1. SPINAL CORD: 1. Spinal cord has normal configuration, conus terminating at L1. There is however displacement of the cord anteriorly in the mid to upper thoracic spine due to the posterior epidural fluid collection. No cord edema or hemorrhage. No significant cord flattening identified. PARASPINOUS SOFT TISSUES: The soft tissue structures are unremarkable. MRI/Spine Thoracic (Routine) IMPRESSION: 1. Prominent posterior epidural fluid collection extending from approximately the T8-T9 level, superiorly to the cervical spine. Minimal thickness in the lower thoracic spine however epidural fluid collection measures approximately 9 mm in the upper thoracic spine with effacement of the thecal CSF space. Cord displacement without acute cord compression. 2. Epidural fluid collections consistent with a prominent epidural hematoma versus developing abscess. 3. No disc herniation identified. 4. Cord has normal signal without evidence of edema or hemorrhage. Mild displacement in the upper thoracic spine. Electronically Signed: Karthik Johnston MD at 20:02 EDT ,
--- NOTE | 2024-07-08 16:37 | ED.VIS.BACK ---
HPI History of Present Illness Chief Complaint: Back Informant: patient Onset/Context/Timing Onset: Today Context: Sudden Onset Chronic pain exacerbated by: Epidural injection Timing: Continuous Quality: - (Stabbing) Location: Thoracic (Upper thoracic, lower cervical) Current Severity: Severe Maximum Severity: Severe Worsened by: improves with Movement Relieved by: Remaining Still Associated Symptoms Associated Symptoms: Negative for Numbness or Tingling Narrative Narrative: Patient presents with upper back pain that began today. Patient states she had an epidural injection in her upper back. Patient states that after that her pain became worse. Patient describes the pain as stabbing. Patient states it is worse with any movement. Patient states it is better with rest. Patient denies any radiation of the pain. Patient denies any paresthesias or weakness. Patient denies any bowel or bladder changes. Patient denies any difficulty breathing or difficulty swallowing. Patient is on Eliquis for atrial fibrillation. [facility] Medical History Wears hearing aid Arthritis Restless legs Shortness of breath on exertion On amiodarone therapy Wears dentures Post-menopausal Depression Anxiety Rheumatoid arthritis History of hiatal hernia Gastric reflux Non-smoker CPAP (continuous positive airway pressure) dependence Sleep apnea History of pain when walking History of echocardiogram History of stress test Hypertension Cardiology follow-up encounter History of atrial fibrillation History of cardioversion CLARISSE (obstructive sleep apnea) Mixed hyperlipidemia assisted current use of 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 drug Pulmonary hypertension Chronic cholecystitis with calculus Paroxysmal atrial fibrillation Essential (primary) hypertension Esophageal hiatal hernia 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, 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 use of anticoagulant Atrial flutter GERD (gastroesophageal reflux disease) Home Medications ?Medication ?Instructions ?Recorded ?Last Taken ?Type denosumab 60 mg/mL subcutaneous 60 mg subcut [id number] 12/14/20 04/25/22 History syringe (Prolia) pantoprazole 40 mg tablet,delayed 40 mg PO DAILY 12/14/20 09/26/22 History release sertraline 100 mg tablet 100 mg PO QHS 12/14/20 09/30/22 History calcium carbonate-vitamin D3 600 1 tab PO DAILY 09/17/22 09/26/22 History mg-125 unit tablet diltiazem HCl 120 mg See Rx Instructions .Route 12/18/23 Unknown Rx capsule,extended release 24 hr .COMPLEX #90 CAPSULES magnesium 200 mg tablet 400 mg PO BID 12/18/23 Unknown History acetaminophen 500 mg tablet 1,000 mg PO Q8 PRN Pain 12/20/23 Unknown History ascorbic acid (vitamin C) 500 mg 500 mg PO DAILY 12/20/23 Unknown History tablet (Vitamin C) metoprolol tartrate 50 mg tablet 50 mg PO BID This is a dose 03/02/24 Unknown Rx increase #180 tabs apixaban 5 mg tablet (Eliquis) 5 mg PO BID #180 tabs 04/07/24 Unknown Rx Allergy/AdvReac Type Severity Reaction Status Date / Time No Known Allergies Allergy Verified 07/08/24 16:08 Family History Mother Hypertension Arthritis Heart disease Father Cancer Brother Cancer Son CVA (cerebral vascular accident) Diabetes Brother TIA (transient ischemic attack) Sister Cancer kidney cancer Thyroid disorder Surgical History Status post right knee replacement Hx of cystoscopy History of arthroscopy of right knee History of cardiac catheterization History of open heart surgery History of cholecystectomy History of atrial septal defect repair History of appendectomy Status post laparoscopic Himanshu fundoplication (~11/2018) History of hysterectomy Social History Smoking Status: Never smoker alcohol intake: never substance use type: does not use caffeine: Yes Type: coffee Number of servings: 1 what type of physical activity do you participate in: walking frequency: daily duration: 30-45 minutes/day seatbelt use: always do you feel safe at home: Yes ROS ROS ED Constitutional Constitutional ED: Denies chills or fever(s) Eyes Eyes: Denies blurry vision or change in vision ENT ENT ED: Denies rhinorrhea or sore throat Cardiovascular Cardiovascular: Denies chest pain or palpitations Respiratory/Chest Respiratory/Chest: Denies cough or dyspnea Gastrointestinal Gastrointestinal: Denies nausea or vomiting Genitourinary Genitourinary ED: Denies dysuria or hematuria Musculoskeletal Musculoskeletal: Reports back pain and neck pain Integumentary Denies abscess or rash Neurologic Neurologic: Denies headache(s) or weakness Allergic/Immunologic Allergic/Immunologic ED: Denies mouth swelling or urticaria EXAM Physical Exam Const Vital Signs: 07/08/24 16:08 07/08/24 17:11 07/08/24 17:45 Temperature 97.5 F L Temperature Source Oral Pulse Rate 93 95 97 Respiratory Rate 16 21 H 30 H Blood Pressure 160/99 H 146/87 H 152/90 H Blood Pressure Mean 119 106 108 Pulse Ox 95 98 95 Oxygen Delivery Method Room Air 07/08/24 20:00 07/08/24 21:00 07/08/24 21:30 Temperature Temperature Source Pulse Rate 96 97 Respiratory Rate 18 18 Blood Pressure 157/95 H 154/84 H 141/96 H Blood Pressure Mean 115 104 110 Pulse Ox 96 94 94 Oxygen Delivery Method Room Air 07/08/24 21:45 07/08/24 22:00 Temperature Temperature Source Pulse Rate 94 Respiratory Rate 17 Blood Pressure 156/88 H Blood Pressure Mean 106 Pulse Ox 94 93 Oxygen Delivery Method Positive well nourished and well developed General Appearance ED: well developed and NAD HEENT Reports moist mucous membranes Neck supple and no JVD Resp normal respiratory effort and clear to auscultation bilaterally Cardio regular rate and regular rhythm GI soft to palpation, non-tender and non-distended Back/Spine Back/Spine Narrative: There is tenderness over the injection site at the upper thoracic/lower cervical area. There is no bony crepitance or step-off. Range of motion was limited in all motions of the thoracic spine secondary to pain. There is pain with flexion of the cervical spine. There is no pain with rotation of the cervical spine. Lumbar Spine / Lower Back: ROM limited Extremity normal to inspection General Extremety ED: Negative for edema or tenderness General Extremity: Negative for edema Neuro oriented x3 and no sensory deficits noted Neuro Narrative: Babinski sign was downgoing bilaterally. There is no clonus noted. Sensorium / Orientation: alert Motor Exam: strength 5/5 throughout Psych mental status grossly normal MDM MDM MDM Narrative Medical decision making narrative: Differential diagnosis includes epidural hematoma, coagulopathy, spinal cord compression, and postoperative pain. MRI of the cervical and thoracic spine will be obtained to assess for epidural hematoma. CBC will be obtained to assess for leukocytosis and anemia. Basic metabolic profile will be obtained to assess for renal function and electrolyte abnormality. PT was INR and PTT will be obtained to assess for coagulopathy. Lab Data Attestation: I reviewed the patient's lab results. Lab results narrative: CBC was reviewed. Platelets were slightly low at 90. PT with INR and PTT were reviewed and were essentially within normal limits. Basic metabolic profile was reviewed. Glucose was slightly elevated at 127. The remainder is within normal limits. Labs: Laboratory Results - last 24 hr 07/08/24 16:42 WBC 6.9 RBC 4.57 Hgb 12.9 Hct 41.0 MCV 89.7 MCH 28.2 MCHC 31.5 L RDW Std Deviation 49.8 H RDW Coeff of Reji 15.0 H Plt Count 90 L MPV 11.0 Immature Gran % (Auto) 0.700 Neut % (Auto) 88.2 H Lymph % (Auto) 8.9 L [place] % (Auto) 1.3 Eos % (Auto) 0.3 Baso % (Auto) 0.6 Absolute Neuts (auto) 6.0 Absolute Lymphs (auto) 0.61 L Nucleated RBC % 0 PT 14.2 INR 1.1 APTT 22.8 L Sodium 141 Potassium 3.9 Chloride 107 Carbon Dioxide 29.0 Anion Gap 5 BUN 18 Creatinine 0.63 Estim Creat Clear Calc 46.67 Est GFR (MDRD) Af Amer 117 Est GFR (MDRD) Non-Af 97 BUN/Creatinine Ratio 28.6 H Glucose 127 H Calcium 9.5 Radiography Diagnostic Testing: Clinical Impression(s) from Imaging Studies Cervical Spine MRI 07/08/24 16:20 IMPRESSION: 1. Extensive posterior epidural abscess versus hematoma extending throughout the full extent of the cervical canal. Appears to terminate superiorly at posterior arch of C2, and extends inferiorly to the level of T8 in the mid thoracic spine. Significant effacement of the CSF space throughout spinal canal due to the posterior epidural fluid. Displacement of the cord without evidence of cord compression or edema. No cord hemorrhage. 2. Multilevel cervical spondylosis, there is broad-based disc bulge/borderline protrusion at C4-5. 3. Normal appearance the visualized spinal cord without evidence of signal abnormality however displacement due to large posterior epidural abscess. No cord edema or hemorrhage. 4. Edema is noted posteriorly in the muscular fascial planes at the T1-T2 level, of uncertain etiology. Electronically Signed: Karthik Johnston MD at 19:56 EDT , ADDENDUM: 07/08/242011 IMPRESSION: 1. Extensive posterior epidural abscess versus hematoma extending throughout the full extent of the cervical canal. Appears to terminate superiorly at posterior arch of C2, and extends inferiorly to the level of T8 in the mid thoracic spine. Significant effacement of the CSF space throughout spinal canal due to the posterior epidural fluid. Displacement of the cord without evidence of cord compression or edema. No cord hemorrhage. 2. Multilevel cervical spondylosis, there is broad-based disc bulge/borderline protrusion at C4-5. 3. Normal appearance the visualized spinal cord without evidence of signal abnormality however displacement due to large posterior epidural abscess. No cord edema or hemorrhage. 4. Edema is noted posteriorly in the muscular fascial planes at the T1-T2 level, of uncertain etiology. N.B. : The above Results were Read Back by Karthik Johnston MD to Jame Buenrostro, , , and understanding confirmed on 07/08/2024 20:05:14 (ET). Electronically Signed: Karthik Johnston MD at 19:56 EDT , Thoracic Spine MRI 07/08/24 16:20 IMPRESSION: 1. Prominent posterior epidural fluid collection extending from approximately the T8-T9 level, superiorly to the cervical spine. Minimal thickness in the lower thoracic spine however epidural fluid collection measures approximately 9 mm in the upper thoracic spine with effacement of the thecal CSF space. Cord displacement without acute cord compression. 2. Epidural fluid collections consistent with a prominent epidural hematoma versus developing abscess. 3. No disc herniation identified. 4. Cord has normal signal without evidence of edema or hemorrhage. Mild displacement in the upper thoracic spine. Electronically Signed: Karthik Johnston MD at 20:02 EDT , MRI of the cervical and thoracic spine was obtained. There is epidural hematoma extending from C2 related to T8-T9 level. It is approximately 8 to 9 mm in thickness. There is some compression of the spinal cord but there is no cord edema or hemorrhage. This was interpreted by the radiologist and was also independently reviewed by myself. Treatment and Re-Evaluation Narrative: Case was discussed with Dr. Noel. He was advised of the findings. He discussed the case with Dr. Vargas from orthopedic spine surgery. He recommended the patient be transferred in case the hematoma would expand and will require emergency surgery. Case was discussed with the [facility] transfer center for [facility]. The hospitalist, Dr. Lam recommended consulting neurosurgery. Case was discussed with Dr. Richard from neurosurgery. He recommended admitting the patient to ICU. Case was discussed with ICU nurse practitioner. Patient was accepted there. They recommended giving the patient Kcentra to reverse the Eliquis. This was ordered. Patient will be transferred to [facility]. Patient and family understand and are agreeable with the plan. All questions were answered. Discharge Plan Triage Chief Complaint: Back ED Provider: Jame Buenrostro Dx/Rx/DC Orders Clinical Impression: Spinal epidural hematoma, Essential (primary) hypertension, Paroxysmal atrial fibrillation Prescriptions: No Action sertraline 100 mg tablet 100 mg PO QHS pantoprazole 40 mg tablet,delayed release (DR/EC) 40 mg PO DAILY Prolia 60 mg/mL syringe 60 mg SC [id number] acetaminophen 500 mg tablet 1,000 mg PO Q8 PRN (Reason: Pain) Patient Comments: pt states 2-3 tabs at a time magnesium 200 mg tablet 400 mg PO BID ascorbic acid (vitamin C) [Vitamin C] 500 mg tablet 500 mg PO DAILY calcium carbonate-vitamin D3 600-125 mg-unit Tablet 1 tab PO DAILY diltiazem HCl 120 mg capsule,extended release 24hr See Rx Instructions .ROUTE .COMPLEX Qty: 90 3RF Dose Instruction: TAKE 1 CAPSULE EVERY DAY FOR BLOOD PRESSURE AND HEART Rx Instructions: TAKE 1 CAPSULE EVERY DAY FOR BLOOD PRESSURE AND HEART metoprolol tartrate 50 mg tablet 50 mg PO BID Qty: 180 3RF Eliquis 5 mg tablet 5 mg PO BID Qty: 180 3RF Primary Care Provider: Jame De La Garza Referrals: Jame De La Garza MD [Primary Care Provider] - Print Language: Bolivian Disposition Disposition: Acute Care Hospital Discharge Location: [facility]
[2024-07-08 16:52] LABS: Absolute Lymphocyte Count 0.61 X10^3/uL (0.83-4.51); Basophil# 0.04 X10^3/uL; Basophil% 0.6 % (0-1); Eosinophil# 0.02 X10^3/uL; Eosinophils% 0.3 % (0-5); Hemoglobin 12.9 g/dL (12.0-15.0); Lymphocyte # 0.61 X10^3/ul (0.83-4.51); Lymphocyte % 8.9 % (19-41); Mean Corp Hgb Conc 31.5 g/dL (32-36); Mean Corpuscular Hgb 28.2 pg (27.0-32.0); Mean Corpuscular Volume 89.7 fL (81-99); Monocyte# 0.09 X10^3/uL; Monocyte% 1.3 % (0-10); NRBC Flagged by Analyzer 0 % (0-5); Neutrophil # 6.04 X10^3/uL (2.7-7.7); Neutrophil % 88.2 % (47-70); POSITIVE COUNT YES; Platelet Count 90 K/mm3 (150-450); RBC Distribution Width SD 49.8 fl (35.1-43.9); Red Blood Count 4.57 M/mm3 (4.2-5.4); White Blood Count 6.9 K/mm3 (4.4-11.0)
[2024-07-08 17:00] LABS: International Normalized Ratio 1.1; Prothrombin Time (Protime)PT. 14.2 SECONDS (11.7-14.9)
[2024-07-08 17:01] LABS: Partial Thromboplast Time 22.8 Seconds (24.1-36.2)
[2024-07-08 17:11] LABS: Anion Gap 5 (5-15); BUN 18 mg/dL (7-18); BUN/Creat Ratio 28.6 RATIO (10-20); Calcium,Total 9.5 mg/dL (8.5-10.1); Chloride 107 mmol/L (98-107); Creatinine, Serum 0.63 mg/dL (0.55-1.02); EST Glomerular Filtration Rate 97 mL/min (>60); Est Glom Filt Rate - Afr Amer 117 mL/min (>60); Estimated Creatinine Clearance 46.67 ml/min; Glucose 127 mg/dL (74-106); Potassium 3.9 mmol/L (3.5-5.1); Sodium Level 141 mmol/L (136-145)
[2024-07-08] MEDS: VIAFLEX IV (22:44)
[2024-07-08] MEDS: HUM PROTHROMBIN CPLX LANS IV (22:44)
[2024-07-08] MEDS: Morphine 4 MG/ML Syringe IV (23:35)
[2024-07-08] MEDS: Ondansetron 4 MG/2 ML Vial IV (23:35)
== END 2024-07-08 23:55 | disposition short-term general hospital (02) ==
PROVIDERS: Emergency Provider Emergency Medicine; PCP Family Medicine; Visit Provider Emergency Medicine
DX: G97.61 Postprocedural hematoma of a nervous system organ or structure following a nervous system procedure (principal); I48.0 Paroxysmal atrial fibrillation; I10 Essential (primary) hypertension; G47.33 Obstructive sleep apnea (adult) (pediatric)
CPT/HCPCS: 72141; 72146; 80048; 85025; 85610; 85730; 96365; 96375; 99283; J7050; A4216; C9159; J2405

== ENCOUNTER 2024-07-19 09:51 | Inpatient (IN) | payer MEDICARE, SELFPAY ==
[2024-07-19] VITALS (12 sets, daily range): BP systolic 98–123; BP diastolic 67–89; PULSE 66–108; RESP 15–30; TEMP 36.5–37.2; O2SAT 92–100; BMI 20.7
--- NOTE | 2024-07-19 10:08 | EKG12_ITS ---
Test Reason : BACK PAIN Blood Pressure : / mmHG Vent. Rate : 104 BPM Atrial Rate : 208 BPM P-R Int : 000 ms QRS Dur : 078 ms QT Int : 438 ms P-R-T Axes : 000 039 091 degrees QTc Int : 575 ms Critical Test Result: Long QTc Atrial flutter with 2:1 A-V conduction Nonspecific ST and T wave abnormality Abnormal ECG Confirmed by ALEJANDRA GLOVER, LUKAS ([id number]), news editor KRISTINE DURAN ([id number]) on 07/20/2024 2:49:03 PM Referred By: Confirmed By:LUKAS ROBERTS MD
--- NOTE | 2024-07-19 10:09 | RAD_ITS ---
EXAM: XR CHEST, 1 VIEW CLINICAL INDICATION: PT HAS HX OF BACK SURGERY, HAD A EPIDURAL LAST WEEK WHICH CAUSED A HEMATOMA AND NOW HAS MORE PAIN. WAS GIVEN TRAMADOL ON SATURDAY AND NOW HAS MORE PAIN AND STATES THE MEDICINE MAKES HER DIZZY AND MAKES HER SLEEPY. PT C/O PAIN STILL. STATES SHE TOOK IT LAST EITHER LAST NIGHT OR THIS MORNING. CALLED EMS BECAUSE SHE NEEDED HELP GETTING UP. TECHNIQUE: Frontal view of the chest. COMPARISON: 07/06/2022. FINDINGS: LUNGS AND PLEURAL SPACES: Pulmonary hyperinflation with flattening of the hemidiaphragms. No suspicious interstitial infiltrates, consolidation or edema. No pneumothorax. No effusion. HEART: Cardiomegaly is unchanged. MEDIASTINUM: Central airways and mediastinal contour are unremarkable. BONES/JOINTS: Unremarkable. No acute fracture. SOFT TISSUES: Midline surgical aylin overlying the lower cervical spine and thoracic spine. VASCULATURE: Pronounced dilatation of the left main pulmonary artery bifurcation may be secondary to pulmonic valve stenosis with poststenotic dilatation and/or pulmonary arterial hypertension. RAD/Chest 1 View (Portable) IMPRESSION: 1. No acute cardiopulmonary pathology. 2. COPD. 3. Cardiomegaly with dilated left main pulmonary artery bifurcation overlying the left mainstem bronchus may be secondary to pulmonic valve stenosis with poststenotic dilatation and/or pulmonary arterial hypertension. Correlation with 2-D echocardiogram will help clarify. 4. No significant interval change. Electronically Signed: Smith Wood MD at 10:44 EDT ,
[2024-07-19 10:19] LABS: Absolute Lymphocyte Count 2.26 X10^3/uL (0.83-4.51); Absolute Neutrophil Count 11.8 X10^3/uL (2.0-7.7); Basophil# 0.06 X10^3/uL; Basophil% 0.4 % (0-1); Eosinophil# 0.01 X10^3/uL; Eosinophils% 0.1 % (0-5); Hematocrit 35.9 % (37-47); Hemoglobin 11.1 g/dL (12.0-15.0); Lymphocyte # 2.26 X10^3/ul (0.83-4.51); Lymphocyte % 14.7 % (19-41); Mean Corp Hgb Conc 30.9 g/dL (32-36); Mean Corpuscular Hgb 28.8 pg (27.0-32.0); Mean Corpuscular Volume 93.2 fL (81-99); Mean Platelet Vol. 11.1 fl (6.2-12.0); Monocyte# 1.08 X10^3/uL; NRBC Flagged by Analyzer 0 % (0-5); Neutrophil % 76.9 % (47-70); Platelet Count 262 K/mm3 (150-450); RBC Distribution Width CV 15.2 % (11.6-14.6); RBC Distribution Width SD 51.3 fl (35.1-43.9); Red Blood Count 3.85 M/mm3 (4.2-5.4); White Blood Count 15.4 K/mm3 (4.4-11.0)
[2024-07-19 10:35] LABS: Anion Gap 5 (5-15); BUN 21 mg/dL (7-18); BUN/Creat Ratio 23.5 RATIO (10-20); Calcium,Total 9.5 mg/dL (8.5-10.1); Chloride 106 mmol/L (98-107); Creatinine, Serum 0.89 mg/dL (0.55-1.02); EST Glomerular Filtration Rate 65 mL/min (>60); Est Glom Filt Rate - Afr Amer 78 mL/min (>60); Estimated Creatinine Clearance 36.82 ml/min; Glucose 215 mg/dL (74-106); Potassium 3.8 mmol/L (3.5-5.1); Sodium Level 139 mmol/L (136-145); Troponin-I HS 14 pg/mL (3.0-54.0)
--- NOTE | 2024-07-19 10:53 | EX.ED.DYSGE1 ---
HPI History of Present Illness Chief Complaint: Back Informant: patient Narrative Narrative: Patient is a 79-year-old female with history of chronic atrial flutter/fibrillation on Eliquis, diltiazem and metoprolol as well as recent epidural neck injection performed by pain management with complication of what sounds like an epidural hematoma requiring emergent surgery at [facility]. This was performed 10 days ago. Patient was discharged from the hospital a week ago to home. She states at 1 point she could not move her extremities however her movement has returned. She has had increased weakness over the past 24 hours or so and is having increased pain in her back. She does not recall the name of her surgeon. She notes she did follow-up with her PCP, Dr. De La Garza, who prescribed her tramadol. She started taking this yesterday. She states that she was discharged home with only Tylenol for pain medication. She does live at home with her her has Parkinson's so is not able to assist her. She has been wearing a [place] collar as well. This morning her son came and checked on her and she was laying in bed. He states she was a little slow to arouse (it took 2 to 5 seconds for her to wake up) and patient was complaining of dizziness. States when she tried to move this morning she had increased pain coming from her right back radiating around. She states she felt she could not move her arms and legs. Patient was having a hard time lifting of the water bottle stating she felt too weak. Family states this is new. No report of any fevers, sweats or chills. No report of any nausea or vomiting or abdominal pain. Denies any chest pain or difficulty breathing. No new drainage or rash from this vision site reported. Denies any recent falls or injuries. Patient notes she did not take her morning medications. 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 Pulmonary hypertension Chronic cholecystitis with calculus Paroxysmal atrial fibrillation Essential (primary) hypertension Esophageal hiatal hernia 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, left 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 Atrial flutter GERD (gastroesophageal reflux disease) Home Medications ?Medication ?Instructions ?Recorded ?Last Taken ?Type pantoprazole 40 mg tablet,delayed 40 mg PO DAILY 12/14/20 07/18/24 History release sertraline 100 mg tablet 100 mg PO QHS 12/14/20 07/18/24 History diltiazem HCl 120 mg See Rx Instructions .Route 12/18/23 07/18/24 Rx capsule,extended release 24 hr .COMPLEX #90 CAPSULES magnesium 200 mg tablet 100 mg PO DAILY 12/18/23 07/18/24 History acetaminophen 500 mg tablet 1,000 mg PO Q8 PRN Pain 12/20/23 Unknown History metoprolol tartrate 50 mg tablet 50 mg PO BID This is a dose 03/02/24 07/19/24 Rx increase #180 tabs apixaban 5 mg tablet (Eliquis) 5 mg PO BID #180 tabs 04/07/24 07/18/24 Rx cholecalciferol (vitamin D3) 50 50 mcg PO DAILY 07/19/24 07/18/24 History mcg (2,000 unit) capsule tramadol 50 mg tablet 50 mg PO Q4H PRN pain 07/19/24 07/18/24 History Allergy/AdvReac Type Severity Reaction Status Date / Time No Known Allergies Allergy Verified 07/19/24 09:58 Family History Mother Hypertension Arthritis Heart disease Father Cancer Brother Cancer Son CVA (cerebral vascular accident) Diabetes Brother TIA (transient ischemic attack) Sister Cancer kidney cancer Thyroid disorder Surgical History Status post right knee replacement Hx of cystoscopy History of arthroscopy of right knee History of cardiac catheterization History of open heart surgery History of cholecystectomy History of atrial septal defect repair History of appendectomy Status post laparoscopic Himanshu fundoplication (~11/2018) History of hysterectomy Social History Smoking Status: Never smoker alcohol intake: never substance use type: does not use caffeine: Yes Type: coffee Number of servings: 1 what type of physical activity do you participate in: walking frequency: daily duration: 30-45 minutes/day seatbelt use: always do you feel safe at home: Yes ROS ROS ED Constitutional Constitutional ED: Denies chills or fever(s) Cardiovascular Cardiovascular: Denies chest pain or palpitations Respiratory/Chest Respiratory/Chest: Denies cough or dyspnea Gastrointestinal Gastrointestinal: Denies abdominal pain, nausea or vomiting Genitourinary Genitourinary ED: Denies dysuria Musculoskeletal Musculoskeletal: Reports back pain Integumentary Denies rash Neurologic Neurologic: Reports weakness; Denies paresthesias Hematologic/Lymphatic Hematologic/Lymphatic: Reports easy bleeding, easy bruising and other Details: on eliquis EXAM Physical Exam Const Vital Signs: 07/19/24 09:52 07/19/24 11:31 07/19/24 11:38 Temperature 98.1 F Temperature Source Oral Pulse Rate 74 66 108 H Pulse Rate [Lying] Pulse Rate [Sitting (for 1 minute prior to obtaining)] Respiratory Rate 16 Blood Pressure 104/80 98/71 Blood Pressure [Lying] Blood Pressure [Sitting (for 1 minute prior to obtaining)] Blood Pressure Mean 88 80 Blood Pressure Mean [Lying] Blood Pressure Mean [Sitting (for 1 minute prior to obtaining)] Pulse Ox 97 Oxygen Delivery Method Room Air 07/19/24 12:43 07/19/24 13:00 07/19/24 13:31 Temperature 98 F Temperature Source Pulse Rate 100 73 Pulse Rate [Lying] 101 H Pulse Rate [Sitting (for 1 minute prior to obtaining)] 101 H Respiratory Rate 26 H 30 H Blood Pressure 123/86 H 112/88 H Blood Pressure [Lying] 112/75 Blood Pressure [Sitting (for 1 minute prior to obtaining)] 116/78 Blood Pressure Mean 98 96 Blood Pressure Mean [Lying] 87 Blood Pressure Mean [Sitting (for 1 minute prior to obtaining)] 90 Pulse Ox 92 92 Oxygen Delivery Method Room Air 07/19/24 14:05 07/19/24 15:00 07/19/24 16:57 Temperature 98.9 F Temperature Source Temporal Pulse Rate 101 H 90 90 Pulse Rate [Lying] Pulse Rate [Sitting (for 1 minute prior to obtaining)] Respiratory Rate 15 20 H 18 Blood Pressure 112/88 H 112/89 H 122/85 H Blood Pressure [Lying] Blood Pressure [Sitting (for 1 minute prior to obtaining)] Blood Pressure Mean 96 96 97 Blood Pressure Mean [Lying] Blood Pressure Mean [Sitting (for 1 minute prior to obtaining)] Pulse Ox 92 94 93 Oxygen Delivery Method Room Air Room Air Room Air Positive well nourished and well developed General Appearance ED: well developed and NAD HEENT Reports moist mucous membranes Eyes PERRL and EOMs intact bilaterally Neck Neck Narrative: [place] Post[place] J collar in place. Chest Wall inspection of chest normal and palpation of chest normal Resp normal respiratory effort and clear to auscultation bilaterally Cardio regular rate and regular rhythm GI normal to inspection, nondistended, normoactive bowel sounds and non-tender Back/Spine Back/Spine Narrative: Surgical aylin in place of the lower cervical and upper thoracic spine, midline. There is significant tenderness palpation of the upper thoracic back diffusely and worse on the right. No fluid collection or hematomas appreciated on palpation but patient does not tolerate deeper palpation. 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 No drift of the upper extremities. Sensation intact in all extremities. Sensorium / Orientation: alert Psych mental status grossly normal Skin Skin Narrative: Surgical incision of the upper back midline consistent with her recent spinal surgery. There are aylin in place but no surrounding erythema or drainage appreciated. No signs of cellulitis at this time. MDM MDM MDM Narrative Medical decision making narrative: Patient is evaluated for increased weakness as well as increased pain. She has a relatively complex medical history with chronic anticoagulation on Eliquis and recent epidural hematoma requiring emergent surgery. This was performed at [facility]. Records over [facility] reviewed. It appears that patient had a T1-T5 laminectomy with evacuation of epidural hematoma performed by Dr. Richard on 07/09. Per neurosurgery progress note on 07/12/2024 her neurologic strength improved to 5 out of 5, the drain was DC'd and plan for follow-up in 2 weeks for incision check/staple removal. Most recent CBC on 07/12/2024 shows white blood cell count of 7.31. Differential is broad including postoperative infection, postoperative pain control, medication side effect, pneumonia, urinary tract infection, acute dehydration, cardiac event. Protocol labs obtained and will add on CRP and ESR. I do not think she requires repeat spinal imaging at this time as she does not have acute deficits and I suspect imaging will show postoperative changes at this time. Once I have results back will speak with neurosurgery on-call for the patient surgeon at [facility] and come up with a final disposition. Is given morphine, Zofran and gentle IV fluids in the ER. Will give the patient her morning metoprolol as well so she does not go into A-fib with RVR. Patient is improvement of pain with morphine but does require redosed. She does have a leukocytosis with white blood cell count of 15.4 and a mild anemia with a hemoglobin 11.1. The leukocytosis is acute however the anemia is stable compared to her labs on 07/12/2024 where her white blood cell count was 11.2. Inflammatory markers largely normal. She does have an elevated lactate of 2.4. Is given IV fluids. Urinalysis concerning for infection with positive nitrates and 3+ bacteria on straight cath sample however she also has 50-100 hyaline cast and 5-10 epithelial cells. Repeat lactate after fluids is now 1.1. I spoke with the patient's surgeon, Dr. Richard, who states if she does not have any acute neurologic symptoms or signs of surgical site infection on exam he does not think there is any type of surgical complication and does not need transfer back to [facility]. I then spoke with hospitalist, Dr. Owen, who was not convinced that the leukocytosis was from a urinary tract infection and requested a CT of the surgical sites for further evaluation. CT shows postsurgical absence of the spinous processes and lamina at T1-T2, superficial midline postoperative hematoma underneath the midline surgical aylin extending from the cervical spine down to T6 vertebral body level measuring 5 x 3.3 cm actually and 14.2 cm craniocaudally. Given that she is on Eliquis that amount of bleeding does not surprising however her hemoglobin is stable. This might be causing her pain. I then spoke again with the hospitalist service who felt the patient be better over at [facility] where her surgeon is in case there is surgical complication that arises. I spoke with the hospitalist at [facility] who declined transfer at this time since there is no clear surgical complication and he recommended treatment for the urinary tract infection fluids and state they be happy to except if the patient starts to have signs of surgical site infection. I then spoke with Dr. Ricardo who accepted the patient on her service. Patient stated that she did not want to be transferred. Patient remains hemodynamically stable in the ER. He started on Rocephin for my concern of urinary tract infection. Patient remains afebrile in the emergency room. After receiving IV fluids patient is still lightheaded and dizzy when she attempts to stand. Unable to perform full orthostatics. Lab Data Attestation: I reviewed the patient's lab results. Labs: Laboratory Results - last 24 hr 07/19/24 07/19/24 07/19/24 10:05 11:15 12:15 WBC 15.4 H RBC 3.85 L Hgb 11.1 L Hct 35.9 L MCV 93.2 MCH 28.8 MCHC 30.9 L RDW Std Deviation 51.3 H RDW Coeff of Reji 15.2 H Plt Count 262 MPV 11.1 Immature Gran % (Auto) 0.900 Neut % (Auto) 76.9 H Lymph % (Auto) 14.7 L Catron % (Auto) 7.0 Eos % (Auto) 0.1 Baso % (Auto) 0.4 Absolute Neuts (auto) 11.8 H Absolute Lymphs (auto) 2.26 Nucleated RBC % 0 ESR 5 Sodium 139 Potassium 3.8 Chloride 106 Carbon Dioxide 28.0 Anion Gap 5 BUN 21 H Creatinine 0.89 Estim Creat Clear Calc 36.82 Est GFR (MDRD) Af Amer 78 Est GFR (MDRD) Non-Af 65 BUN/Creatinine Ratio 23.5 H Glucose 215 H Lactic Acid 2.4 H* Calcium 9.5 Troponin I High Sens 14 C-React Prot Ext Range 10.60 H Urine Color Rowena Urine Clarity Sl. Cloudy Urine pH 5.0 Ur Specific [place] 1.030 Urine Protein 30 H Urine Glucose (UA) Normal Urine Ketones 5 H Urine Occult Blood Negative Urine Nitrite Positive H Urine Bilirubin 1 H Urine Urobilinogen 4 H Ur Leukocyte Esterase 25 H Urine RBC 0 SEEN Urine WBC 0-5 SEEN Ur Squamous Epith Cells 5-10 SEEN Amorphous Sediment 1+ Urine Bacteria 3+ Hyaline Casts 50-100 SEEN Urine Mucus 4+ 07/19/24 15:27 WBC RBC Hgb Hct MCV MCH MCHC RDW Std Deviation RDW Coeff of Reji Plt Count MPV Immature Gran % (Auto) Neut % (Auto) Lymph % (Auto) Catron % (Auto) Eos % (Auto) Baso % (Auto) Absolute Neuts (auto) Absolute Lymphs (auto) Nucleated RBC % ESR Sodium Potassium Chloride Carbon Dioxide Anion Gap BUN Creatinine Estim Creat Clear Calc Est GFR (MDRD) Af Amer Est GFR (MDRD) Non-Af BUN/Creatinine Ratio Glucose Lactic Acid 1.1 Calcium Troponin I High Sens C-React Prot Ext Range Urine Color Urine Clarity Urine pH Ur Specific [place] Urine Protein Urine Glucose (UA) Urine Ketones Urine Occult Blood Urine Nitrite Urine Bilirubin Urine Urobilinogen Ur Leukocyte Esterase Urine RBC Urine WBC Ur Squamous Epith Cells Amorphous Sediment Urine Bacteria Hyaline Casts Urine Mucus Radiography Chest X-Ray - ED: 1 View, Read by ED Physician, Read by Radiologist and Chronic Changes Diagnostic Testing: Clinical Impression(s) from Imaging Studies Chest X-Ray 07/19/24 10:09 IMPRESSION: 1. No acute cardiopulmonary pathology. 2. COPD. 3. Cardiomegaly with dilated left main pulmonary artery bifurcation overlying the left mainstem bronchus may be secondary to pulmonic valve stenosis with poststenotic dilatation and/or pulmonary arterial hypertension. Correlation with 2-D echocardiogram will help clarify. 4. No significant interval change. Electronically Signed: Smith Wood MD at 10:44 EDT Reading Location ID and State: [facility] / [place] , Service support , Cervical Spine CT 07/19/24 13:27 IMPRESSION: 1. Postsurgical absence of the spinous processes and lamina at T1-T2 disc space level and caudally. Please see CT thoracic spine showing superficial midline hematoma underneath the surgical aylin. 2. No suspicious cervical extruded disc fragment or cervical spinal stenosis. 3. No CT evidence of any suspicious residual gas-containing epidural abscess following postsurgical evacuation. 4. Partial ankylosis of the left C2-C3 facet joint and mild left C3-C4 left C4-C5 degenerative facet arthropathy. Electronically Signed: Smith Wood MD at 15:03 EDT , Thoracic Spine CT 07/19/24 13:27 IMPRESSION: 1. Superficial midline postoperative hematoma underneath the midline surgical aylin extending from the cervical spine down to T6 vertebral body level. This measures 5.1 x 3.3 cm in the axial projection and 14.2 cm craniocaudally. 2. Postsurgical absence of the spinous processes and lamina at T1-T2 down to T5-T6 disc space levels. 3. T8 benign vertebral hemangioma and smaller T12 benign vertebral body hemangioma. 4. Suboptimal visualization of the central canal due to absence of intrathecal contrast. No suspicious central canal stenosis or intervertebral neural foraminal stenosis. 5. Small bilateral apical paraseptal cysts, left more than right. 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
[2024-07-19 11:04] LABS: Erythrocyte Sedimentation Rate 5 mm/hr (0-30)
--- NOTE | 2024-07-19 11:06 | ED.RN ---
Multiple family members in the hallway. Family were told that patient could have 2 visitors and they could switch in and out. Family upset about this. I also explained that they would have to stay in the room and not hang out in the hallway due to HIPAA and other patients privacy. They verbalized understanding.
[2024-07-19] MEDS: Ondansetron 4 MG/2 ML Vial IV (11:13)
[2024-07-19] MEDS: Morphine 4 MG/ML Syringe IV ×2 (11:13→14:18)
[2024-07-19] MEDS: 0.9% Normal Saline (1000mL) 1,000 ML 100 ML IV ×2 (11:14→16:52)
[2024-07-19] MEDS: Metoprolol(XL)Succ 50 MG Tablet PO (11:37)
[2024-07-19 11:45] LABS: Lactic Acid 2.4 mmol/L (0.4-1.9)
--- NOTE | 2024-07-19 12:09 | ED.RN ---
Paged Dr Joaquín Richard from [facility].
[2024-07-19 12:18] LABS: Red Blood Cells-Urine 0 SEEN /hpf (0-5)
[2024-07-19 12:21] LABS: Color, Urine Amber (Yellow); Glucose, Dipstick Normal (Normal); Ketone-Dipstick 5 mg/dl (Negative); Leukocyte Esterase-Dipstick 25 /ul (Negative); Nitrite-Dipstick Positive (Negative); Occult Blood-Urine Negative /ul (Negative); Protein-Dipstick 30 mg/dl (Negative); Urine Clarity Sl. Cloudy (Clear); Urine Urobilinogen 4 mg/dl (Normal)
[2024-07-19 12:24] LABS: Urine Bilirubin Dipstick 1 mg/dL (Negative)
[2024-07-19 12:35] LABS: Amorphous Sediment 1+; Bacteria 3+ /hpf (None Seen); Hyaline Cast 50-100 SEEN /lpf (0-5); Mucous, Urine 4+ /hpf (<or=2+); Squamous Epithelial Cells - UA 5-10 SEEN /hpf (5-10); White Blood Cells 0-5 SEEN /hpf (0-5)
--- NOTE | 2024-07-19 13:07 | ED.RN ---
Dr Richard paged again. Answering service had the wrong number for call back.
--- NOTE | 2024-07-19 13:15 | ED.RN ---
Dr Richard called back
--- NOTE | 2024-07-19 13:27 | CT_ITS ---
STUDY: CT THORACIC SPINE WITHOUT CONTRAST REASON FOR EXAM: Female, 79 years old. Post op pain. C and T spine surgery 2 weeks ago with bleeding complications RADIATION DOSAGE (If Supplied By Facility): CTDIvol = ( 18.54 ) mGy, DLP = ( 700.96 ) mGycm TECHNIQUE: The patient was scanned in a multi detector CT scanner. High resolution imaging was performed. Images were obtained from lower C3 to upper L2. Sagittal and coronal images were reconstructed. Individualized dose optimization techniques were used for this CT. The protocol utilizes one or more of the following dose reduction techniques: automated exposure control, adjustment of mA and/or kV according to patient size, and/or use of iterative reconstruction technique. COMPARISON: Unremarkable thoracic spine without contrast 07/08/2024. FINDINGS: Normal visualized cervical spine. Normal kyphosis of the thoracic spine. There is no substantial scoliosis. Postsurgical absence of the spinous processes and lamina at T1-T2 down to T5-T6 disc space levels. Normal thoracic vertebral body heights and alignment. Coarse vertical trabeculations of the T8 vertebral body due to hemangioma. Smaller T12 benign vertebral body hemangioma is also present. No lytic or blastic lesions. Normal disc spaces heights. Suboptimal visualization of the central canal due to absence of intrathecal contrast. No central canal stenosis and no intervertebral neural foraminal stenosis. Prominent midline subcutaneous postoperative hematoma underneath the midline surgical aylin. This hematoma extends from the cervical spine down to T6 vertebral body level. The hematoma measures 5.1 x 3.3 cm in the axial projection and 14.2 cm craniocaudally. Small paraseptal cysts are visible in the lung apices, left more than right. CT/Spine Thoracic without Contras IMPRESSION: 1. Superficial midline postoperative hematoma underneath the midline surgical aylin extending from the cervical spine down to T6 vertebral body level. This measures 5.1 x 3.3 cm in the axial projection and 14.2 cm craniocaudally. 2. Postsurgical absence of the spinous processes and lamina at T1-T2 down to T5-T6 disc space levels. 3. T8 benign vertebral hemangioma and smaller T12 benign vertebral body hemangioma. 4. Suboptimal visualization of the central canal due to absence of intrathecal contrast. No suspicious central canal stenosis or intervertebral neural foraminal stenosis. 5. Small bilateral apical paraseptal cysts, left more than right. Electronically Signed: Smith Wood MD at 14:56 EDT ,
--- NOTE | 2024-07-19 13:27 | CT_ITS ---
EXAM: CT CERVICAL SPINE WITHOUT INTRAVENOUS CONTRAST CLINICAL INDICATION: post op pain. C and T spine surgery 2 weeks ago with bleeding complications TECHNIQUE: Helically acquired images were obtained of the cervical spine without intravenous contrast. 2D reformatted images were reviewed. This CT exam was performed using one or more of the following dose reduction techniques: automated exposure control, adjustment of the mA and/or kV according to patient size, and/or use of iterative reconstruction technique. RADIATION DOSE: CTDIvol = 17.98 mGy, DLP = 378.25 mGy-cm COMPARISON: MR cervical spine without contrast 07/08/2024. FINDINGS: VERTEBRAE: Postsurgical absence of the spinous processes and lamina at T1-T2 disc space level and caudally. Normal vertebral body heights. Normal alignment. No lytic or blastic lesions. DISCS/SPINAL CANAL/NEURAL FORAMINA: Unremarkable. No critical stenosis. Normal central canal and intervertebral neuroforamina. Partial ankylosis of the left C2-C3 facet joint. Mild left C3-C4 and left C4-C5 degenerative facet arthropathy. Normal remaining facet joints. SOFT TISSUES: Unremarkable. No prevertebral soft tissue swelling. LYMPH NODES: Unremarkable. No cervical adenopathy. LUNG APICES: Unremarkable as visualized. Clear. CT/Spine Cervical without Contras IMPRESSION: 1. Postsurgical absence of the spinous processes and lamina at T1-T2 disc space level and caudally. Please see CT thoracic spine showing superficial midline hematoma underneath the surgical aylin. 2. No suspicious cervical extruded disc fragment or cervical spinal stenosis. 3. No CT evidence of any suspicious residual gas-containing epidural abscess following postsurgical evacuation. 4. Partial ankylosis of the left C2-C3 facet joint and mild left C3-C4 left C4-C5 degenerative facet arthropathy. Electronically Signed: Smith Wood MD at 15:03 EDT ,
--- NOTE | 2024-07-19 13:34 | ED.RN ---
call son sourav when admitted [phone]
[2024-07-19 15:19] LABS: Reflex Lactate? Y
[2024-07-19 15:59] LABS: Lactic Acid 1.1 mmol/L (0.4-1.9)
--- NOTE | 2024-07-19 16:22 | ED.RN ---
Called transfer line to [facility] for transfer
[2024-07-19] MEDS: Ceftriaxone 1 GM/50 ML BAG IV (16:52)
[2024-07-19] MEDS: oxyCODONE 5 MG Tablet PO ×2 (17:42→23:53)
--- NOTE | 2024-07-19 17:42 | HP.PCM.HOS_ITS ---
HPI - General General Date of Admission: 07/19/24 Date of Service: 07/19/24 Chief Complaint: intractable pain HPI Narrative RUBEN LOBO, is a 79 F with a PMH as outlined who presents via the ED on 07/19/2024 with a complaint of intractable upper back pain. She had an epidural neck injection by pain management for intractable neck pain, which was complicated by epidural hematoma. She had to go to [facility] emergently for evacuation of the hematoma which was done 10 days prior to admission. She was discharged home but said the pain was still poorly controlled. She said she had been feeling weak at home due to the intractable pain. She denied any fever, chills, nausea, vomiting, burning with urination or any other symptoms. Review of systems was otherwise negative. Vitals in the ED were BP of 122/85, WV of 90, RR of 18 and temp of 98.9F. He was saturating at 94% on room air. CBC showed Hb of 11.1, wbc of 15.4 and platelets of 262. ESR is 5 and CRP is 10.60. Urinalysis showed 3+ bacteria. [place]mitry showed sodium of 139, potassium of 3.8 and bicarb of 28. Cr is 0.89. She did have imaging of the cervical and thoracic spine done due to concerns about possible infection of the surgical site. Cervical spine CT showed postsurcial absence of the spinous processes nad laima at T1-T2 disc space level caudally and no suspicious cervical extruded dis fragment or cervical spinal stenosis and no evidence of any residual gas containing epidural sbscess following post surgical evacuation. Thoracic spine Ct showed superficial midline postoperative hematoma underneath the midline surgical aylin extending from the cervical spine own to T6 vertebral body level, measuring 5.1 x 3.3cm axially and 14.2cm craniocaudally. The ED doctor discussed the findings with the spine surgeon at [facility] who did no think patient needed to be transferred there and didnt think her symptoms were due to the surgery. She is therefore being admitted to be managed for debility due to intractable back pain and UTI. 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 Pulmonary hypertension Chronic cholecystitis with calculus Paroxysmal atrial fibrillation Essential (primary) hypertension Esophageal hiatal hernia 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, left 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 Atrial flutter GERD (gastroesophageal reflux disease) Home Medications ?Medication ?Instructions ?Recorded ?Last Taken ?Type pantoprazole 40 mg tablet,delayed 40 mg PO DAILY 12/14/20 07/18/24 History release sertraline 100 mg tablet 100 mg PO QHS 12/14/20 07/18/24 History magnesium 200 mg tablet 100 mg PO DAILY 12/18/23 07/18/24 History acetaminophen 500 mg tablet 1,000 mg PO Q8 PRN Pain 12/20/23 Unknown History metoprolol tartrate 50 mg tablet 50 mg PO BID This is a dose 03/02/24 07/19/24 Rx increase #180 tabs apixaban 5 mg tablet (Eliquis) 5 mg PO BID #180 tabs 04/07/24 07/18/24 Rx cholecalciferol (vitamin D3) 50 50 mcg PO DAILY 07/19/24 07/18/24 History mcg (2,000 unit) capsule diltiazem HCl 120 mg 120 mg PO DAILY BLOOD PRESSURE AND 07/19/24 07/18/24 History capsule,extended release 24 hr HEART tramadol 50 mg tablet 50 mg PO Q4H PRN pain 07/19/24 07/18/24 History Allergy/AdvReac Type Severity Reaction Status Date / Time No Known Allergies Allergy Verified 07/19/24 09:58 Family History Mother Hypertension Arthritis Heart disease Father Cancer Brother Cancer Son CVA (cerebral vascular accident) Diabetes Brother TIA (transient ischemic attack) Sister Cancer kidney cancer Thyroid disorder Surgical History Status post right knee replacement Hx of cystoscopy History of arthroscopy of right knee History of cardiac catheterization History of open heart surgery History of cholecystectomy History of atrial septal defect repair History of appendectomy Status post laparoscopic Himanshu fundoplication (~11/2018) History of hysterectomy Social History Smoking Status: Never smoker alcohol intake: never substance use type: does not use caffeine: Yes Type: coffee Number of servings: 1 what type of physical activity do you participate in: walking frequency: daily duration: 30-45 minutes/day seatbelt use: always do you feel safe at home: Yes ROS Constitutional Constitutional: Reports fatigue, malaise and weakness; Denies anorexia, chills or fever(s) Eyes Eyes: Denies change in vision ENT HEENT: Denies dysphagia, headache(s), nasal congestion, nasal discharge or sore throat Cardiovascular Cardiovascular: Denies chest pain, dyspnea on exertion, edema, lightheadedness, orthopnea, palpitations, paroxysmal nocturnal dyspnea, rapid heart rate or syncope Respiratory/Chest Respiratory/Chest: Denies cough, dyspnea, productive cough, shortness of breath at rest or shortness of breath with exertion Gastrointestinal Gastrointestinal: Denies abdominal pain, constipation, diarrhea, dyspepsia, nausea or vomiting Genitourinary Genitourinary: Denies burning urination, dysuria, urinary frequency or urinary urgency Musculoskeletal Musculoskeletal: Reports back pain; Denies arthralgias, joint pain, joint stiffness, joint swelling, myalgias or neck pain Neurologic Neurologic: Denies confusion, dizziness, focal weakness, headache(s), numbness, paresthesias, seizure-like activity, seizures, syncope or tingling Psychiatric Psychiatric: Denies anxiety or depression Endocrine Endocrinology: Denies change in body appearance Vital Signs Vital Signs Vital Signs: 07/19/24 09:52 07/19/24 11:31 07/19/24 11:38 Temperature 98.1 F Temperature Source Oral Pulse Rate 74 66 108 H Pulse Rate [Lying] Pulse Rate [Sitting (for 1 minute prior to obtaining)] Respiratory Rate 16 Blood Pressure 104/80 98/71 Blood Pressure [Lying] Blood Pressure [Sitting (for 1 minute prior to obtaining)] Blood Pressure Mean 88 80 Blood Pressure Mean [Lying] Blood Pressure Mean [Sitting (for 1 minute prior to obtaining)] Pulse Ox 97 Oxygen Delivery Method Room Air 07/19/24 12:43 07/19/24 13:00 07/19/24 13:31 Temperature 98 F Temperature Source Pulse Rate 100 73 Pulse Rate [Lying] 101 H Pulse Rate [Sitting (for 1 minute prior to obtaining)] 101 H Respiratory Rate 26 H 30 H Blood Pressure 123/86 H 112/88 H Blood Pressure [Lying] 112/75 Blood Pressure [Sitting (for 1 minute prior to obtaining)] 116/78 Blood Pressure Mean 98 96 Blood Pressure Mean [Lying] 87 Blood Pressure Mean [Sitting (for 1 minute prior to obtaining)] 90 Pulse Ox 92 92 Oxygen Delivery Method Room Air 07/19/24 14:05 07/19/24 15:00 07/19/24 16:57 Temperature 98.9 F Temperature Source Temporal Pulse Rate 101 H 90 90 Pulse Rate [Lying] Pulse Rate [Sitting (for 1 minute prior to obtaining)] Respiratory Rate 15 20 H 18 Blood Pressure 112/88 H 112/89 H 122/85 H Blood Pressure [Lying] Blood Pressure [Sitting (for 1 minute prior to obtaining)] Blood Pressure Mean 96 96 97 Blood Pressure Mean [Lying] Blood Pressure Mean [Sitting (for 1 minute prior to obtaining)] Pulse Ox 92 94 93 Oxygen Delivery Method Room Air Room Air Room Air Weight Weight: 106 lb Body Mass Index (BMI) 20.7 Physical Exam Const alert, oriented x3 and no apparent distress Constitutional Narrative: in mild distress due to upper back pain General Appearance: cooperative HEENT normocephalic, head/scalp atraumatic, hearing grossly normal bilaterally, moist oral mucous membranes and oropharynx normal Eyes PERRL, EOMs intact bilaterally and conjunctivae normal Neck no lymphadenopathy, supple and no JVD Resp normal respiratory effort, no retractions, no use of accessory muscles and clear to auscultation bilaterally Cardio regular rate, regular rhythm, S1 normal heart sound, S2 normal heart sound and no murmurs GI normal to inspection, nondistended, normoactive bowel sounds, soft to palpation, non-tender and non-distended Extremity normal to inspection, full ROM and no clubbing, cyanosis or edema Extremity Narrative: In cervical collar. Skin Skin Narrative: intact aylin over upper back at site of surgery. Mild erythema around the aylin. Minimal erythema, no discharge.. Neuro oriented x3, CN's II-XII intact bilaterally, moves all extremities and no focal motor deficits Sensorium / Orientation: awake and alert Motor Exam: strength 5/5 throughout Psych affect normal Results Lab / Micro Data 07/19/24 10:05 07/19/24 10:05 Labs: Laboratory Results - last 24 hr 07/19/24 10:05: WBC 15.4 H, RBC 3.85 L, Hgb 11.1 L, Hct 35.9 L, MCV 93.2, MCH 28.8, MCHC 30.9 L, RDW Std Deviation 51.3 H, RDW Coeff of Reji 15.2 H, Plt Count 262, MPV 11.1, Immature Gran % (Auto) 0.900, Neut % (Auto) 76.9 H, Lymph % (Auto) 14.7 L, [place] % (Auto) 7.0, Eos % (Auto) 0.1, Baso % (Auto) 0.4, Absolute Neuts (auto) 11.8 H, Absolute Lymphs (auto) 2.26, Nucleated RBC % 0, ESR 5, Sodium 139, Potassium 3.8, Chloride 106, Carbon Dioxide 28.0, Anion Gap 5, BUN 21 H, Creatinine 0.89, Estim Creat Clear Calc 36.82, Est GFR (MDRD) Af Amer 78, Est GFR (MDRD) Non-Af 65, BUN/Creatinine Ratio 23.5 H, Glucose 215 H, Calcium 9.5, Troponin I High Sens 14, C-React Prot Ext Range 10.60 H 07/19/24 11:15: Lactic Acid 2.4 H* 07/19/24 12:15: Urine Color [place], Urine Clarity Sl. Cloudy, Urine pH 5.0, Ur Specific [place] 1.030, Urine Protein 30 H, Urine Glucose (UA) Normal, Urine Ketones 5 H, Urine Occult Blood Negative, Urine Nitrite Positive H, Urine Bilirubin 1 H, Urine Urobilinogen 4 H, Ur Leukocyte Esterase 25 H, Urine RBC 0 SEEN, Urine WBC 0-5 SEEN, Ur Squamous Epith Cells 5-10 SEEN, Amorphous Sediment 1+, Urine Bacteria 3+, Hyaline Casts 50-100 SEEN, Urine Mucus 4+ 07/19/24 15:27: Lactic Acid 1.1 Rhythm Strip Rhythm Strip: A-fib Rate: 104 Ectopy: None Imaging Radiology Impression Chest X-Ray 07/19/24 10:09 IMPRESSION: 1. No acute cardiopulmonary pathology. 2. COPD. 3. Cardiomegaly with dilated left main pulmonary artery bifurcation overlying the left mainstem bronchus may be secondary to pulmonic valve stenosis with poststenotic dilatation and/or pulmonary arterial hypertension. Correlation with 2-D echocardiogram will help clarify. 4. No significant interval change. Electronically Signed: Smith Wood MD at 10:44 EDT Reading Location ID and State: [facility] / [place] , Service support , Cervical Spine CT 07/19/24 13:27 IMPRESSION: 1. Postsurgical absence of the spinous processes and lamina at T1-T2 disc space level and caudally. Please see CT thoracic spine showing superficial midline hematoma underneath the surgical aylin. 2. No suspicious cervical extruded disc fragment or cervical spinal stenosis. 3. No CT evidence of any suspicious residual gas-containing epidural abscess following postsurgical evacuation. 4. Partial ankylosis of the left C2-C3 facet joint and mild left C3-C4 left C4-C5 degenerative facet arthropathy. Electronically Signed: Smith Wood MD at 15:03 EDT Reading Location ID and State: [facility] / [place] , Service support , Thoracic Spine CT 07/19/24 13:27 IMPRESSION: 1. Superficial midline postoperative hematoma underneath the midline surgical aylin extending from the cervical spine down to T6 vertebral body level. This measures 5.1 x 3.3 cm in the axial projection and 14.2 cm craniocaudally. 2. Postsurgical absence of the spinous processes and lamina at T1-T2 down to T5-T6 disc space levels. 3. T8 benign vertebral hemangioma and smaller T12 benign vertebral body hemangioma. 4. Suboptimal visualization of the central canal due to absence of intrathecal contrast. No suspicious central canal stenosis or intervertebral neural foraminal stenosis. 5. Small bilateral apical paraseptal cysts, left more than right. Electronically Signed: Smith Wood MD at 14:56 EDT , Assessment & Plan Assessment/Plan (1) UTI (urinary tract infection): (2) Intractable pain: PLAN: Plan #UTI * admitted with a complaint of weakness and intractable back pain, likely from her recent epidural abscess I&D * urinalysis showed 3+ bacteria. WBC is elevated at 15.4, with a predominant neutrophilia. * admit to med surg * get urine cultures and blood cultures * start on IV ceftriaxone. * hydrate gently with IVF NS @ 125cc/hr x 2 * #postop cervical hematoma * As stated patient had evacuation of an epidural hematoma done at [facility] in [place] 10 days ago. Due to concerns about possible infection at the site, she had thoracic spine and cervical spine CT done on admission which showed superficial midline postop hematoma underneath the midline surgical aylin extending from the cervical spine down to T6 vertebral body, measuring 5.1 x 3.3 cm in the axial projection and 14.2 cm craniocaudally * The ED doctor did discuss this with patient surgeon at [facility] who did not think that patient needed to be transferred to [facility] as this was suspected changes from the surgery. * Patient is on Eliquis will monitor Hb closely to see if there is any drop which may signify a worsening of the hematoma. * #History of epidural hematoma s/p evacuation * As stated above surgery done 10 days ago. Imaging findings as above. * Surgical site has mild erythema around the aylin but there is minimal differential warmth and no discharge. Will monitor closely. * has intractable pain from the surgery. Will place on PO tylenol, PO oxycodone and IV morphine prn for pain * #Paroxysmal afib: on eliquis and metoprolol as well as cardizem. #Depression; on sertraline DVT prophylaxis: on eliquis already CODE STATUS: DNR CCA no intubation * Patient counseled extensively about different types of CODE STATUS including full code, DNR CCA and DNR CCA. * Patient elects to be DNRCCA no intubation. * Total [id number] time 17 minutes. Charges/Coding Visit Charges Inpatient E&M: 13256 Init Hosp L3 Procedures Hospitalists Procedures: 66978 Advncd Care Plan 30 Min
[2024-07-19] MEDS: 0.9% Normal Saline (1000mL) 1,000 ML 125 ML IV (19:09)
[2024-07-19] MEDS: Acetaminophen 325 MG Tablet 650 MG PO (23:53)
[2024-07-19] MEDS: Metoprolol Tartrate 50 MG Tablet PO (23:54)
[2024-07-19] MEDS: APIXABAN 5 MG TABLET PO (23:54)
[2024-07-19] MEDS: Sertraline 100 MG Tablet PO (23:56)
[2024-07-20 04:07] VITALS: BP 101/67; PULSE 87; RESP 16; TEMP 36.7; O2SAT 100
[2024-07-20 06:34] LABS: Absolute Lymphocyte Count 2.08 X10^3/uL (0.83-4.51); Basophil# 0.04 X10^3/uL; Basophil% 0.4 % (0-1); Eosinophil# 0.04 X10^3/uL; Eosinophils% 0.4 % (0-5); Hematocrit 27.4 % (37-47); Hemoglobin 8.4 g/dL (12.0-15.0); Lymphocyte # 2.08 X10^3/ul (0.83-4.51); Lymphocyte % 23.2 % (19-41); Mean Corp Hgb Conc 30.7 g/dL (32-36); Mean Corpuscular Hgb 28.9 pg (27.0-32.0); Mean Corpuscular Volume 94.2 fL (81-99); Mean Platelet Vol. 10.8 fl (6.2-12.0); Monocyte# 0.78 X10^3/uL; Monocyte% 8.7 % (0-10); NRBC Flagged by Analyzer 0 % (0-5); Neutrophil # 5.97 X10^3/uL (2.7-7.7); Neutrophil % 66.7 % (47-70); Platelet Count 149 K/mm3 (150-450); RBC Distribution Width CV 15.6 % (11.6-14.6); RBC Distribution Width SD 53.1 fl (35.1-43.9); Red Blood Count 2.91 M/mm3 (4.2-5.4)
[2024-07-20 07:29] LABS: Anion Gap 6 (5-15); BUN 22 mg/dL (7-18); BUN/Creat Ratio 26.3 RATIO (10-20); Calcium,Total 8.7 mg/dL (8.5-10.1); Chloride 108 mmol/L (98-107); Creatinine, Serum 0.84 mg/dL (0.55-1.02); EST Glomerular Filtration Rate 70 mL/min (>60); Est Glom Filt Rate - Afr Amer 85 mL/min (>60); Estimated Creatinine Clearance 39.01 ml/min; Glucose 128 mg/dL (74-106); Potassium 4.1 mmol/L (3.5-5.1); Sodium Level 141 mmol/L (136-145)
--- NOTE | 2024-07-20 07:41 | WOUNDNOTE ---
skin photo: left flank/sacral area
[2024-07-20] MEDS: dilTIAZem CD 120 MG Capsule PO (09:44)
[2024-07-20] MEDS: Menthol/Lanolin/Calamine/Znox 113 GM Tube 1 APPLIC TOPICAL ×2 (09:44→21:27)
[2024-07-20] MEDS: Pantoprazole Sodium 40 MG Tablet PO (09:44)
[2024-07-20] MEDS: Cholecalciferol (VIT D3) 25 MCG TABLET (1,000 UNITS) 50 MCG PO (09:44)
[2024-07-20 09:45] VITALS: BP 106/79; PULSE 103
[2024-07-20] MEDS: Metoprolol Tartrate 50 MG Tablet PO ×2 (09:45→21:29)
[2024-07-20] MEDS: Ceftriaxone 1 GM/50 ML BAG IV (09:45)
[2024-07-20] MEDS: APIXABAN 5 MG TABLET PO ×2 (09:45→21:29)
[2024-07-20] MEDS: Ensure Plus High Protein 120 ML LIQUID PO ×4 (09:46→21:52)
[2024-07-20 09:57] VITALS: BP 106/79; PULSE 102; RESP 16; TEMP 36.9; O2SAT 97
--- NOTE | 2024-07-20 13:11 | CASEMGMT ---
TAIWO AGUILERA Assessment Face to Face with patient for initial transition planning/care coordination assessment. TAIWO AGUILERA introduced self and role at [facility], pt voices understanding. Pt is A&Ox4 and is resting comfortably in bed and is calm. Care providers, pharmacy, and demographics verified. Admitting dx: UTI LACE Strata: 2 PCP: Jame De La Garza Specialists: Jorge Luis Devine (Pulmonary) Preferred Pharmacy: [facility] Insurance: [employer] [facility] Prescription Benefit: Yes LNOK: Deion Kenney (), Jaxon Palmer (Son), Jame (Son) Living Arrangements: Pt lives with her in a single story home with two steps to enter ADLs/IADLs: Pt currently requires assistance with ADL and IADLS Transportation: Self, both sons. Denies current concerns DME: FWW, canes, Grab bars, C-Collar, BP Monitor. Denies further needs at this time HHC/SNF: Reports recent SNF stay but cannot recall the name of the facility. Pt states that she had a poor experience at the SNF. Pt states that she is active with HHC but is unsure of the agency. Pt son states that he believes it is [facility]. Pt?s goal: Home with the continuation of HHC Plan: Anticipate eventual DC home with the continuation of HHC. Pt denies SNF needs. 6-click is 15. PT/OT evaluations are pending. Report given to [facility] TAIWO AGUILERA. Case management to contact current HHC company to see if they are able to continue home care at time of DC. Mai Farley RN, CM
[2024-07-20] MEDS: 0.9% Normal Saline (1000mL) 1,000 ML 125 ML IV (14:09)
--- NOTE | 2024-07-20 14:48 | CASEMGMT ---
Discharge Planning A list of?SNF providers including quality and resource use data and consistent with the patient's preferred geographic region, medical needs, and insurance network was created in [employer] Guide.? This list was provided to the SW. Lauryn Feldman Discharge Planning Asst.
--- NOTE | 2024-07-20 15:31 | CASEMGMT ---
Message sent to [facility] to see if patient is active with their services as pt cannot recall name of agency she is active with. Pt was in [facility] prior.
[2024-07-20 16:00] VITALS: BP 109/75; PULSE 87; RESP 16; TEMP 36.1; O2SAT 100
--- NOTE | 2024-07-20 16:55 | PCM.PN.HOSP ---
Reason for Visit Reason for Visit: Diagnoses Urinary tract infection, site not specified (07/19/24) Pain, unspecified (07/19/24) Subjective Subjective Patient was seen and examined today, urine culture is not growing out any bacteria yet, patient still has some pain around the incision site on her upper back and lower neck area. Objective Data Objective Data Vital Signs: Vital Signs Temp Pulse Resp BP Pulse Ox O2 Del Method 98.5 F 102 H 16 106/79 97 Room Air 07/20/24 09:57 07/20/24 09:57 07/20/24 09:57 07/20/24 09:57 07/20/24 09:57 07/20/24 09:57 Oxygen Delivery Method Room Air Weight: 48.081 kg Body Mass Index (BMI) 20.7 Intake & Output: Intake and Output for Last 24 Hours 07/18/24 07/19/24 07/20/24 23:59 23:59 23:59 Intake Total 613.33 / 713.33 2150 / 2150 Output Total 0 / 0 Balance 613.33 / 713.33 2150 / 2150 Lab / Micro Data 07/20/24 06:22 07/20/24 06:22 Labs: Laboratory Results - last 24 hr 07/20/24 06:22: WBC 9.0, RBC 2.91 L, Hgb 8.4 L, Hct 27.4 L, MCV 94.2, MCH 28.9, MCHC 30.7 L, RDW Std Deviation 53.1 H, RDW Coeff of Reji 15.6 H, Plt Count 149 L, MPV 10.8, Immature Gran % (Auto) 0.600, Neut % (Auto) 66.7, Lymph % (Auto) 23.2, [place] % (Auto) 8.7, Eos % (Auto) 0.4, Baso % (Auto) 0.4, Absolute Neuts (auto) 6.0, Absolute Lymphs (auto) 2.08, Nucleated RBC % 0, Sodium 141, Potassium 4.1, Chloride 108 H, Carbon Dioxide 27.0, Anion Gap 6, BUN 22 H, Creatinine 0.84, Estim Creat Clear Calc 39.01, Est GFR (MDRD) Af Amer 85, Est GFR (MDRD) Non-Af 70, BUN/Creatinine Ratio 26.3 H, Glucose 128 H, Calcium 8.7 Micro: Microbiology 07/19/24 12:15 Urine, Random Urine Culture - Preliminary Culture exhibits no growth. Rhythm Strip Rhythm Strip: A-fib Rate: 104 Ectopy: None Physical Exam Const alert, oriented x3, no apparent distress and average body habitus General Appearance: cooperative, well kempt and well developed Orientation / Consciousness: awake, oriented to person, oriented to place and oriented to time HEENT normocephalic, head/scalp atraumatic and moist oral mucous membranes Eyes PERRL, EOMs intact bilaterally and conjunctivae normal Neck supple, no JVD, thyroid normal and no carotid bruits General: trachea midline Resp normal respiratory effort, no retractions, no use of accessory muscles and clear to auscultation bilaterally Auscultation: Negative for rales, rhonchi or wheezes Cardio regular rate, regular rhythm, S1 normal heart sound, S2 normal heart sound, no murmurs, no rub and no gallops GI normal to inspection, nondistended, normoactive bowel sounds, soft to palpation, non-tender and non-distended Extremity no clubbing, cyanosis or edema Skin Skin Narrative: Patient has a healing incision over the upper thoracic spine area in the midline extending into the neck area, there is no discharge from the area, it is tender around the right sided aspect of the incision, tenderness is not severe. Neuro oriented x3, CN's II-XII intact bilaterally, no focal motor deficits and no sensory deficits noted Sensorium / Orientation: awake and alert Speech: speech normal Psych affect normal Assessment & Plan Assessment/Plan (1) Postoperative hematoma: PLAN: Plan 1. Acute cystitis-patient's urine is not growing out any organisms as of yet, continue present antibiotic coverage #2 status postevacuation of hematoma in the third cervical spine area in the upper thoracic spine area with continuing tenderness of the area-continue to observe for any changes in the wound healing of this area #3 paroxysmal [id number] is on metoprolol and Eliquis #4 chronic depression-patient is on Zoloft Total clinical time spent by myself addressing the patient's medical issues, reviewing all of her data, and collaborating with patient's care team: 35 minutes Charges/Coding Visit Charges Inpatient E&M: 53146 Subs Hosp L2
[2024-07-20] MEDS: oxyCODONE 5 MG Tablet PO (21:25)
[2024-07-20] MEDS: Acetaminophen 325 MG Tablet 650 MG PO (21:26)
[2024-07-20 21:29] VITALS: BP 131/75; PULSE 93; PULSE 95; RESP 18; TEMP 36.7; O2SAT 99
[2024-07-20] MEDS: Sertraline 100 MG Tablet PO (21:29)
[2024-07-20] MEDS: 0.9% Saline Lock 10 ML Syringe IV (21:40)
[2024-07-21 03:29] VITALS: BP 94/60; PULSE 86; RESP 16; TEMP 36.7; O2SAT 96
[2024-07-21 08:47] VITALS: BP 116/68; PULSE 103; RESP 17; TEMP 36.7; O2SAT 100
--- NOTE | 2024-07-21 08:59 | CASEMGMT ---
Received confirmation that pt is not active with [facility]. Message sent to [facility] who reported they are active with PT, OT and [employer] services for pt. Requested dc diver assistant send rest of referral at this time.
--- NOTE | 2024-07-21 09:20 | CASEMGMT ---
Discharge Planning HH resumption referral sent to [facility]. Lauryn Feldman DC Planning Asst.
[2024-07-21 09:49] VITALS: PULSE 72
[2024-07-21] MEDS: Metoprolol Tartrate 50 MG Tablet PO (09:49)
[2024-07-21] MEDS: dilTIAZem CD 120 MG Capsule PO (09:49)
[2024-07-21] MEDS: APIXABAN 5 MG TABLET PO (09:49)
[2024-07-21] MEDS: Pantoprazole Sodium 40 MG Tablet PO (09:50)
[2024-07-21] MEDS: Cholecalciferol (VIT D3) 25 MCG TABLET (1,000 UNITS) 50 MCG PO (09:51)
[2024-07-21] MEDS: Ensure Plus High Protein 120 ML LIQUID PO (09:53)
[2024-07-21] MEDS: Ceftriaxone 1 GM/50 ML BAG IV (09:56)
[2024-07-21] MEDS: Menthol/Lanolin/Calamine/Znox 113 GM Tube 1 APPLIC TOPICAL (10:02)
[2024-07-21] MEDS: Acetaminophen 325 MG Tablet 650 MG PO (12:02)
--- NOTE | 2024-07-21 12:20 | DCINST_ITS ---
Discharge Instructions Diet Discharge Diet: No restrictions Activity Discharge Activity: Return to Normal Activity Weight Bearing Status: Full weight bearing Follow Up Care Test Results: Test results from this visit will be discussed in further detail at your follow- up appointment, if applicable. Discharge Plan Admission Admit Date/Time: 07/19/24 17:33 Primary Reason for Your Visit: cystitis, back pain Attending Provider: Yahir Thrasher Primary Care Provider: Jame De La Garza Consulting Providers: Mady Ricardo Discharge Orders/Prescriptions Prescriptions: New hydrocodone-acetaminophen 5-325 mg tablet 1 tab PO Q6H PRN (Reason: pain) 4 Days Qty: 14 0RF cephalexin 500 mg capsule 500 mg PO TID Qty: 15 0RF Rx Instructions: start on 07/22/24 Continued sertraline 100 mg tablet 100 mg PO QHS pantoprazole 40 mg tablet,delayed release (DR/EC) 40 mg PO DAILY acetaminophen 500 mg tablet 1,000 mg PO Q8 PRN (Reason: Pain) Patient Comments: pt states 2-3 tabs at a time magnesium 200 mg tablet 100 mg PO DAILY tramadol 50 mg tablet 50 mg PO Q4H PRN cholecalciferol (vitamin D3) 50 mcg (2,000 unit) capsule 50 mcg PO DAILY diltiazem HCl 120 mg capsule,extended release 24hr 120 mg PO DAILY metoprolol tartrate 50 mg tablet 50 mg PO BID Qty: 180 3RF Eliquis 5 mg tablet 5 mg PO BID Qty: 180 3RF Referrals / Follow Up: Jame De La Garza MD [Primary Care Provider] - Within 2 Weeks (you will need a repeat CBC ordered) Disposition Disposition (needs filled in before D/C Order can be placed): Home, Self Care
[2024-07-21 12:42] LABS: Absolute Lymphocyte Count 1.46 X10^3/uL (0.83-4.51); Absolute Neutrophil Count 6.5 X10^3/uL (2.0-7.7); Basophil# 0.03 X10^3/uL; Basophil% 0.3 % (0-1); Eosinophil# 0.07 X10^3/uL; Eosinophils% 0.8 % (0-5); Hematocrit 27.2 % (37-47); Hemoglobin 8.4 g/dL (12.0-15.0); Lymphocyte # 1.46 X10^3/ul (0.83-4.51); Lymphocyte % 16.6 % (19-41); Mean Corp Hgb Conc 30.9 g/dL (32-36); Mean Corpuscular Hgb 29.5 pg (27.0-32.0); Mean Corpuscular Volume 95.4 fL (81-99); Mean Platelet Vol. 10.7 fl (6.2-12.0); Monocyte# 0.68 X10^3/uL; Monocyte% 7.8 % (0-10); NRBC Flagged by Analyzer 0 % (0-5); Neutrophil # 6.48 X10^3/uL (2.7-7.7); Neutrophil % 73.9 % (47-70); Platelet Count 142 K/mm3 (150-450); RBC Distribution Width CV 15.4 % (11.6-14.6); Red Blood Count 2.85 M/mm3 (4.2-5.4); White Blood Count 8.8 K/mm3 (4.4-11.0)
--- NOTE | 2024-07-21 12:58 | CASEMGMT ---
Addendum entered by Veronique Acuña 07/21/24 13:28: DC instructions and progress notes attached via [facility] and sent to [facility] at this time. Original Note: RN CM into pt room, pt nurse present. Pt states she does want to return home with her HHC. She states she has multiple family members who can assist at home. She states that her sons are staying with her for a short time as well. Pt declines SNF. [facility] to resume care for pt.
--- NOTE | 2024-07-21 13:19 | PCM.DC.SUM ---
Providers Date of Admission: 07/19/24 Date of Discharge: 07/21/24 Primary Care Physician: Dr. 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 Acute cystitis #2 status postevacuation of hematoma of the upper thoracic spinal area #3 paroxysmal C-vkc-szxargw is on metoprolol and Eliquis #4 chronic depression-patient is on Zoloft #5 acute anemia-etiology unclear Total clinical time spent by myself addressing the patient's medical issues, reviewing all of her data, and collaborating with patient's care team: 35 minutes Medications at Discharge Home Medications pantoprazole 40 mg tablet,delayed release 40 mg PO DAILY 12/14/20 sertraline 100 mg tablet 100 mg PO QHS 12/14/20 magnesium 200 mg tablet 100 mg PO DAILY 12/18/23 acetaminophen 500 mg tablet 1,000 mg PO Q8 PRN Pain 12/20/23 metoprolol tartrate 50 mg tablet 50 mg PO BID This is a dose increase #180 tabs 03/02/24 apixaban 5 mg tablet (Eliquis) 5 mg PO BID #180 tabs 04/07/24 cholecalciferol (vitamin D3) 50 mcg (2,000 unit) capsule 50 mcg PO DAILY 07/19/24 diltiazem HCl 120 mg capsule,extended release 24 hr 120 mg PO DAILY BLOOD PRESSURE AND HEART 07/19/24 tramadol 50 mg tablet 50 mg PO Q4H PRN pain 07/19/24 cephalexin 500 mg capsule 500 mg PO TID #15 caps 07/21/24 hydrocodone-acetaminophen 5-325mg 5mg-325mg 1 tab PO Q6H PRN pain 4 days #14 tabs 07/21/24 Hospital Course Operations None Procedures None Summary of Care Provided Minutes Spent on Discharge: 31 Hospital Course: This 79-year-old white female was seen in the emergency room at [facility] with complaints of increased pain in her upper right back area. Patient recently underwent surgery for an epidural hematoma that resulted from a cervical epidural injection. She had been discharged from the hospital approximately 10 days ago with Tylenol for pain and she has been wearing a rigid cervical collar. Patient also complained of generalized weakness, she denied any fevers or chills. Emergency room physician contacted the patient's physician who performed her surgery on 07/09/2024, it appeared that the patient had a T1-T5 laminectomy with evacuation of an epidural hematoma. Labs were obtained in the emergency room to rule out any postoperative infection, white blood cell count was elevated at 15.4, hemoglobin was 11.1, lactic acid was elevated at 2.4, urinalysis was obtained and was concerning for an infection with positive nitrite and +3 bacteria on a straight cath sample. The ER physician spoke with the patient's surgeon, the patient's surgeon did not feel that the patient needed to be transferred back to [facility] where the surgery had been performed and instead the patient was admitted to the hospital here for uncontrolled pain and acute cystitis. Patient was given IV antibiotics and pain medications, her back pain improved during her hospitalization, urine culture grew out no organisms. Despite this result, I felt that the patient had a urinary tract infection and antibiotics were continued at the time of discharge home. Patient had a drop in her hemoglobin after she was admitted to the hospital, at the time of discharge it was stable however-etiology for the drop in hemoglobin was not understood. The patient's hemoglobin at the time of discharge from [facility] on 07/12/2024 was 11.2. On 07/21/2024, patient was seen and examined: On examination she appeared in good health and spirits, she does not appear to be in any distress. Vital signs as documented. Skin warm and dry and without overt rashes. Neck without JVD, thyroid appears normal, trachea is midline, neck is supple. Lungs clear, normal air movement was noted. Heart exam notable for regular rhythm, normal sounds and absence of murmurs, rubs or gallops. Abdomen unremarkable and without evidence of organomegaly, masses, or abdominal aortic enlargement, bowel sounds are present in all 4 quadrants, no abdominal tenderness was noted. Extremities nonedematous, no cyanosis was noted, no clubbing was noted. Neuro: Cranial nerves II through XII are grossly intact, no focal motor deficits were noted, sensation to light touch and pinprick is intact, motor exam 5/5 throughout. Psych: Patient is alert and oriented x3, she does not appear anxious or depressed, she does not appear agitated. Patient was discharged home in stable condition on 07/21/2024 I contacted the patient's physician-Dr. Jame De La Garza-and made him aware that the patient had a drop in her hemoglobin during her hospitalization, he will recheck her labs and perform any necessary workup. Weight / BMI Weight Weight: 48.081 kg Body Mass Index (BMI) 20.7 ABG / Lab / Microbiology Data 07/21/24 12:34 07/20/24 06:22 Laboratory: Laboratory Results - last 24 hr 07/21/24 12:34: WBC 8.8, RBC 2.85 L, Hgb 8.4 L, Hct 27.2 L, MCV 95.4, MCH 29.5, MCHC 30.9 L, RDW Std Deviation 53.0 H, RDW Coeff of Reji 15.4 H, Plt Count 142 L, MPV 10.7, Immature Gran % (Auto) 0.600, Neut % (Auto) 73.9 H, Lymph % (Auto) 16.6 L, [place] % (Auto) 7.8, Eos % (Auto) 0.8, Baso % (Auto) 0.3, Absolute Neuts (auto) 6.5, Absolute Lymphs (auto) 1.46, Nucleated RBC % 0 Microbiology: Microbiology 07/19/24 12:15 Urine, Random Urine Culture - Final Culture exhibits no growth. D/C Instructions Discharge Diet: No restrictions Weight Bearing Status: Full weight bearing Meaningful Use Info Meaningful Use Meaningful Use Diagnoses (Choose all that apply): None applicable Ischemic Stroke Statin Dosing Therapy Reference: STATIN DOSE THERAPY REFERENCE: * Patients > 75 years receive moderate or high dose statin therapy. * Patients 75 years or YOUNGER should receive HIGH intensity statin dose unless contraindicated. You will be required to document reason for non-treatment if statin daily dose does not meet guidelines. HIGH DOSE STATIN THERAPY DAILY Atorvastatin > than or = to 40 mg Rosuvastatin > than or = to 20 mg Amlodipine + Atorvastatin > than or = to 2.5/40 mg Ezetimibe + Simvastatin 10/80 mg Simvastatin 80mg Discharge Plan Admission Admit Date/Time: 07/19/24 17:33 Primary Reason for Your Visit: cystitis, back pain Attending Provider: Yahir Thrasher Primary Care Provider: Jame De La Garza Consulting Providers: Mady Ricardo Discharge Orders/Prescriptions Prescriptions: New hydrocodone-acetaminophen 5-325 mg tablet 1 tab PO Q6H PRN (Reason: pain) 4 Days Qty: 14 0RF cephalexin 500 mg capsule 500 mg PO TID Qty: 15 0RF Rx Instructions: start on 07/22/24 Continued sertraline 100 mg tablet 100 mg PO QHS pantoprazole 40 mg tablet,delayed release (DR/EC) 40 mg PO DAILY acetaminophen 500 mg tablet 1,000 mg PO Q8 PRN (Reason: Pain) Patient Comments: pt states 2-3 tabs at a time magnesium 200 mg tablet 100 mg PO DAILY tramadol 50 mg tablet 50 mg PO Q4H PRN cholecalciferol (vitamin D3) 50 mcg (2,000 unit) capsule 50 mcg PO DAILY diltiazem HCl 120 mg capsule,extended release 24hr 120 mg PO DAILY metoprolol tartrate 50 mg tablet 50 mg PO BID Qty: 180 3RF Eliquis 5 mg tablet 5 mg PO BID Qty: 180 3RF Referrals / Follow Up: Jame De La Garza MD [Primary Care Provider] - Within 2 Weeks (you will need a repeat CBC ordered) Disposition Disposition (needs filled in before D/C Order can be placed): Home, Self Care Charges/Coding Visit Charges Inpatient E&M: 20223 Disch Hosp >30min
[2024-07-21 14:27] VITALS: BP 106/67; PULSE 101; RESP 16; TEMP 36.6; O2SAT 100
== END 2024-07-21 15:15 | disposition home health service (06) | DRG 690 ==
LOC: ED 16:58 → MS3 17:18
PROVIDERS: Admitting Provider Student in an Organized Health Care Education/Training Program; Emergency Provider Emergency Medicine; PCP Family Medicine; Visit Provider Internal Medicine
DX: N30.00 Acute cystitis without hematuria (principal); L76.31 Postprocedural hematoma of skin and subcutaneous tissue following a dermatologic procedure; D64.9 Anemia, unspecified; E86.0 Dehydration; E78.2 Mixed hyperlipidemia; S31.809A Unspecified open wound of unspecified buttock, initial encounter; I48.0 Paroxysmal atrial fibrillation; M06.9 Rheumatoid arthritis, unspecified; I10 Essential (primary) hypertension; K21.9 Gastro-esophageal reflux disease without esophagitis; G47.33 Obstructive sleep apnea (adult) (pediatric); Z66 Do not resuscitate; Z79.01 Long term (current) use of 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; Z79.899 Other long term (current) drug therapy; X58.XXXA Exposure to other specified factors, initial encounter
CPT/HCPCS: 36415; 71045; 72125; 72128; 80048; 81001; 83605; 84484; 85025; 85652; 86140; 87040; 87086; 93005; 97162; 97802; 99285; J7030; P9612; A4216; J2405

== ENCOUNTER → 2024-07-31 | Outpatient (CLI) | payer MEDICARE, SELFPAY ==
[2024-07-31 17:42] LABS: Absolute Lymphocyte Count 1.24 X10^3/uL (0.83-4.51); Absolute Neutrophil Count 2.9 X10^3/uL (2.0-7.7); Basophil# 0.03 X10^3/uL; Basophil% 0.6 % (0-1); Eosinophil# 0.07 X10^3/uL; Eosinophils% 1.5 % (0-5); Hematocrit 37.6 % (37-47); Hemoglobin 11.5 g/dL (12.0-15.0); Lymphocyte # 1.24 X10^3/ul (0.83-4.51); Lymphocyte % 26.7 % (19-41); Mean Corp Hgb Conc 30.6 g/dL (32-36); Mean Corpuscular Volume 98.2 fL (81-99); Mean Platelet Vol. 11.3 fl (6.2-12.0); Monocyte# 0.38 X10^3/uL; Monocyte% 8.2 % (0-10); NRBC Flagged by Analyzer 0 % (0-5); Neutrophil % 62.6 % (47-70); Platelet Count 178 K/mm3 (150-450); RBC Distribution Width CV 17.9 % (11.6-14.6); RET-HE 31.9 pg (30-35); Red Blood Count 3.83 M/mm3 (4.2-5.4); Reticulocyte Count 4.98 % (0.5-1.5); White Blood Count 4.6 K/mm3 (4.4-11.0)
[2024-07-31 17:57] LABS: Ferritin 88 ng/mL (8-252); Iron Binding Capacity,Total 404 ug/dL (250-450); Lipase 174 U/L (13-75)
[2024-08-04 08:15] LABS: Endomysial Antibody IgA Negative (Negative); Immunoglobulin A 539 mg/dL (64-422); t-Transglutaminase IgA <2 U/mL (0-3)
== END | disposition home or self-care (01) ==
LOC: MTLAB 15:13
PROVIDERS: PCP Family Medicine; Referring Provider Family Medicine; Visit Provider Family Medicine
DX: R19.7 Diarrhea, unspecified (principal); D64.9 Anemia, unspecified
CPT/HCPCS: 36415; 82728; 82784; 83516; 83550; 83690; 85025; 85045; 86255

== ENCOUNTER → 2024-08-28 | Outpatient (CLI) | payer MEDICARE, SELFPAY ==
--- NOTE | 2024-08-28 15:56 | CT_ITS ---
EXAM: CT ABDOMEN AND PELVIS WITH INTRAVENOUS CONTRAST CLINICAL INDICATION: pancreas inflammation and diarrhea TECHNIQUE: Helically acquired images were obtained of the abdomen and pelvis with intravenous contrast. This CT exam was performed using one or more of the following dose reduction techniques: automated exposure control, adjustment of the mA and/or kV according to patient size, and/or use of iterative reconstruction technique. CONTRAST: Oral and amp; IV Readi-CAT and amp; 75mL Isovue-370 RADIATION DOSE: CTDIvol = 12.91 mGy, DLP = 424.65 mGy-cm COMPARISON: 9.14.22 FINDINGS: LOWER THORAX: There are calcifications of the coronary arteries. Left-sided pericardial calcifications. Lung bases are clear. ABDOMEN: LIVER: Unremarkable. Normal liver. GALLBLADDER AND BILE DUCTS: There is non-visualization of the gallbladder, which may be secondary to either contraction or a prior cholecystectomy. No intra- or extrahepatic biliary ductal dilation. PANCREAS: Unremarkable. No focal cystic or solid mass. Normal pancreas. SPLEEN: Unremarkable. Normal spleen. ADRENALS: Unremarkable. Normal bilateral adrenal glands. KIDNEYS AND URETERS: Unremarkable. Normal renal size and position. No hydronephrosis. No acute findings of the right kidney. No acute findings of the left kidney. STOMACH AND BOWEL: Stool throughout the colon. No stomach or bowel distention. No focal inflammatory change. Normal visualized stomach. Normal small intestine. PELVIS: APPENDIX: There is non-visualization of the appendix. BLADDER: Unremarkable. Normal urinary bladder. REPRODUCTIVE: There is absence of the uterus consistent with a prior hysterectomy. ABDOMEN and PELVIS: INTRAPERITONEAL SPACE: Unremarkable. No ascites or other fluid collection. No free air. BONES/JOINTS: There are multi-level degenerative changes of the thoracic spine. There are diffuse degenerative changes of the visualized lumbar spine. No suspicious lytic or blastic abnormality. SOFT TISSUES: There is an umbilical hernia containing fat. VASCULATURE: There is atherosclerotic calcification of the aortic arch with tortuosity and elongation of the aortic arch and descending thoracic aorta. There are calcifications of the abdominal aorta. This is consistent for atherosclerotic disease. There is no abdominal aortic aneurysm. Normal pulmonary arteries. LYMPH NODES: Unremarkable. No enlarged lymph nodes. CT/Abdomen/Pelvis WITH Contrast IMPRESSION: No acute findings in the abdomen or pelvis. Electronically Signed: Parker Hunt MD at 15:35 EDT ,
[2024-08-28 16:21] LABS: CREATININE FINGERSTICK < 1.0 mg/dL (0.55-1.02); EGFR FINGERSTICK > 60.0000 mL/min (>60)
== END | disposition home or self-care (01) ==
LOC: CT 15:54
PROVIDERS: PCP Family Medicine; Referring Provider Family Medicine; Visit Provider Family Medicine
DX: I51.89 Other ill-defined heart diseases (principal)
CPT/HCPCS: 74177; Q9967

== ENCOUNTER → 2024-09-04 | Outpatient (CLI) | payer MEDICARE, SELFPAY ==
--- NOTE | 2024-09-04 13:03 | ECHOD_ITS ---
Reason For Study: PAROXYSMAL AFIB Procedure This was a 2D Doppler, Color Flow transthoracic echocardiogram. Exam performed in department. Left Ventricle Normal LV size. The left ventricular ejection fraction is 60 %. No regional wall motion abnormalities noted. Right Ventricle Normal RV size. Normal systolic function. Atria The left atrium is mildly enlarged. Normal right atrium. Mitral Valve Mild (1+) eccentric mitral valve insufficiency. Tricuspid Valve Normal tricuspid valve. Mild (1+) tricuspid valve insufficiency. Right ventricular systolic pressure estimated to be 28 mmHg. Aortic Valve Trisinus/trileaflet aortic valve. Mild focal aortic valve calcification. Mild (1+) aortic valve insufficiency. Pulmonic Valve Mild restriction of the pulmonic valve. Mild stenosis of the pulmonic valve. Mild (1+) pulmonic valve insufficiency. Great Vessels Calcified aortic root. The pulmonary artery is normal size. Inferior vena cava collapse with respiration. Pericardium/Pleural No pericardial effusion. MMode/2D Measurements & Calculations LVIDd: 4.4 cm IVSd: 0.90 cm Ao root diam: 3.3 cm LVIDs: 2.9 cm LVPWd: 0.98 cm FS: 35.1 % LAV(MOD-bp): 74.7 ml LVAd ap4: 22.2 cm2 LVAd ap2: 21.9 cm2 LAV(MOD-bp) Indexed: 51.2 ml/m2 LVLd ap4: 6.8 cm LVLd ap2: 7.9 cm LAV(MOD-sp2): 73.8 ml EDV(MOD-sp4): 64.0 ml EDV(MOD-sp2): 55.7 ml LAV(MOD-sp4): 72.1 ml EDV(sp4-el): 61.0 ml EDV(sp2-el): 51.9 ml LVAs ap4: 12.8 cm2 LVAs ap2: 12.1 cm2 LVLs ap4: 5.9 cm LVLs ap2: 6.5 cm ESV(MOD-sp4): 24.1 ml ESV(MOD-sp2): 20.8 ml ESV(sp4-el): 23.8 ml ESV(sp2-el): 19.1 ml EF(MOD-sp4): 62.4 % EF(MOD-sp2): 62.6 % EF(sp4-el): 61.0 % SV(MOD-sp4): 39.9 ml SV(MOD-sp2): 34.9 ml SV(sp4-el): 37.2 ml LA dimension(2D): 4.3 cm LA A4 area: 23.1 cm2 RA A4 area: 20.1 cm2 TAPSE: 2.0 cm Doppler Measurements & Calculations MV E max bart: 116.2 cm/sec Ao V2 max: 116.3 cm/sec AI max bart: 421.4 cm/sec Ao max P.4 mmHg AI max P.0 mmHg Ao V2 mean: 75.0 cm/sec AI dec slope: 345.5 cm/sec2 Ao mean P.6 mmHg AI P1/2t: 357.3 msec Ao V2 VTI: 22.1 cm AV (velocity ratio): 0.91 LV V1 max: 90.0 cm/sec PA V2 max: 154.9 cm/sec PI dec slope: 262.9 cm/sec2 LV V1 max P.2 mmHg PA V2 mean: 105.5 cm/sec LV V1 mean P.6 mmHg LV V1 mean: 58.2 cm/sec LV V1 VTI: 20.2 cm TR max bart: 266.1 cm/sec TR max P.3 mmHg ECHO/Echo Complete Interpretation Summary Normal LV size. The left ventricular ejection fraction is 60 %. Mild restriction of the pulmonic valve. Mild stenosis of the pulmonic valve. Ordering Physician: Cy Rodriguez Referring Physician: Cy Rodriguez; Jame De La Garza Performed By: Ophelia Diaz, DORY, RVT
== END | disposition home or self-care (01) ==
LOC: CVS 13:02
PROVIDERS: PCP Family Medicine; Referring Provider Internal Medicine Cardiovascular Disease; Visit Provider Internal Medicine Cardiovascular Disease
DX: I48.0 Paroxysmal atrial fibrillation (principal)
CPT/HCPCS: 93306

== ENCOUNTER 2024-10-16 13:30 | Outpatient (RCR) | payer MEDICARE, SELFPAY ==
--- NOTE | 2024-09-14 08:38 | HP.PTEVAL_ITS ---
Patient's Visit Information Visit Information Visit Information: RUBEN LOBO is a 79 year old F referred to Physical Therapy by Joaquín Richard MD with a diagnosis of cervicothoracic spinal stenosis. Date of Evaluation: 09/10/24 Physical Therapist: Roberto Cortez DPT Visit Plan Frequency: 2x /Week Duration: 6 Weeks Plan: 1) manual/IASTIM to reduce R sided mid trap, upper trap pain 2) light mid trap/upper trap activation to aid in improved posture 3) light progressive ROM of cervical and thoracic spine. Subjective Subjective: Pt. is here today for her initial evaluation with diagnosis of cervicothoracic spinal stenosis. Pt. reports having an injection on aug 08. She has a blood clot and have to have emergency removal. She had surgery the following day. Pt. was in hospital for 4 days. Pt. reports haivng several aylin in her thoracic and cervical spine. Those were removed ~2 weeks ago. Pt. is still having pain her thoracic spine R worse than L. She reports no N/T noted. Pt. is on a 8Lb lifting restriction. She is sleeping okay, but does wake her up at night. Pt. was unsure to what surgery she had. Pt. is hopeful to reduce the pain in her neck and back and get back to all household activities. 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 Pain Thoracic spine: Pain Intensity (Out of 10): 6 Pain Intensity Range: 4 and 10 Comment: R side Objective Objective: POSTURE: Pt. has a general increased thoracic kyphosis. Pt. has increased pain with attempts to correct. FH posture as well. [place]: Pt. has healing incision from cervical throughout thoracic spine. No signs of infection. Good healing. Pt. has marked tenderness along thoracic erector spinae. She has increased pain at L mid trap and rhomboids as well as upper trap. NEURO: pt. has normal sensation in BUEs and throughout thoracic spine. ROM: Pt. has close to full B shoulder ROM without increase in symptoms. CERVICAL SPINE: pt. has mod loss with extension, min loss with flexion, mod/max loss with B sidebend and rotation. Pt. reports not much pain with cervical ROM, but marked stiffness. THORACIC SPINE: Pt. has increased NW symptoms with extension mod loss, rotation increase NW Mod loss bilat. MMT: Pt. has 4+/5 strength throughout BUEs, mild increase NW with mid trap testing. Balance/Special Test Scores Oswestry Neck Score: 22 Goals Goal 1:: LTG: Pt. to be I with HEP. Goal Time Frame: 4-6 Weeks Goal 2:: LTG: Pt. report decreased R sided thoracic pain allowing for increased tolerance with all daily activities. Goal Time Frame: 4-6 Weeks Goal 3:: STG: Pt. to sleep throughout the night without increase in symptoms. Goal Time Frame: 2-4 Weeks Goal 4:: LTG: Pt. to report no pain with all ADLs. Goal Time Frame: 4-6 Weeks Goal 5:: LTG: PT. to have increased cervical and thoracic ROM by 25% throughout. Goal Time Frame: 4-6 Weeks Rehabilitation Potential Physical Therapy Diagnosis: Pt. has signs and symptoms consistent with cervicothoracic spinal stenosis. Pt. has marked muscle pain after her subsequent surgery to remove blood clotting. Pt. has marked cervical and thoracic hypomobility as well. Pt. would benefit from manual to reduce muscle pain progressing into light muscle activiation to increase cervical/thoracic stability. Rehabilitation Potential: Good Anticipated Interventions Patient/Client Instruction: Educate patient on: Condition, Plan of Care, Risk Factors and Benefits of Fitness Program For the Purpose of:: To improve decision making, To facilitate caregiver knowledge, To improve self management, To prevent re-injury and To improve ability to perform tasks related to life management Therapeutic Exercise to Include: Strength training, Coordination, Postural training, Flexibilty training, Active ROM, [place] Exercises and Scapular Strength/Stabilization For the Purpose of:: To decrease pain, To increase ROM, To improve nutrient delivery to tissue, To increase oxygenation perfusion, To improve muscle performance and motor function, To improve ability to perform ADL's, To decrease soft tissue restriction and To increase flexibility/ROM Manual Therapy Techniques to Include: Soft tissue mobilization Comment: IASTIM For the Purpose of:: To decrease pain, To increase ROM, To improve nutrient delivery to tissue and To increase oxygenation perfusion Text: Thank you for the opportunity to evaluate your patient. For Medicare and Medicare HMO plans, please review the plan of care and approve it. It will need to be FAXED BACK to us at [phone] for Medicare purposes. For Medicare only, by signing this I certify the plan of care. Please let me know if there are questions or concerns regarding this plan of care. Physician Sig nature: Date:
== END 2024-10-16 19:00 | disposition home or self-care (01) ==
LOC: PT 13:30
PROVIDERS: PCP Family Medicine; Referring Provider Neurological Surgery; Visit Provider Neurological Surgery
DX: M48.03 Spinal stenosis, cervicothoracic region (principal)
CPT/HCPCS: 97140; 97161

== ENCOUNTER → 2025-01-26 | Outpatient (CLI) | payer MEDICARE, SELFPAY ==
--- NOTE | 2025-01-26 07:05 | MRI_ITS ---
PROCEDURE: SPINE THORACIC (ROUTINE) REASON FOR EXAM: UPPER THORAX PAIN S/P SURGICAL INTERVENTION AND FAILED PT IN PAST TECHNIQUE: Noncontrast thoracic spine MRI. COMPARISON: None. FINDINGS: Vertebrae: Thoracic vertebral body heights are preserved. Vertebral body hemangiomata noted, by far most prominent at the T8 vertebral body. Bone marrow signal is otherwise unremarkable. Alignment: Normal. No spondylolisthesis. Spinal Cord: Thoracic spinal cord is of normal size and signal intensities. Disc spaces: Minimal to mild degenerative disc disease of the thoracic spine noted. A very mild disc protrusion is seen at the T7-T8 level. No significant degree of spinal canal stenosis or neural foraminal narrowing is noted. Very mild disc bulge noted at T12-L1, without associated spinal canal stenosis or neural foraminal narrowing. Moderate disc space narrowing is seen at this level. No significant disc bulge or herniation is seen at the remaining thoracic levels. Normal appearance of the thoracic cord is seen, including the conus medullaris. Paraspinal Tissues: Unremarkable. MRI/Spine Thoracic (Routine) IMPRESSION: 1. Minimal to mild multilevel thoracic spine degenerative disc disease. 2. No significant spinal canal stenosis or neural foraminal narrowing is seen. 3. Additional findings as noted Reading Location: [id number]
--- NOTE | 2025-01-26 07:05 | MRI_ITS ---
PROCEDURE: SPINE CERVICAL (ROUTINE) REASON FOR EXAM: CERVICAL PAIN S/P SURGICAL INTERVENTION AND FAILED PT IN PAST TECHNIQUE: Cervical spine MRI without intravenous gadolinium-based contrast. COMPARISON: 07/19/2024. FINDINGS: Cervical vertebral body heights are preserved. Prominent marrow edema within the dens and xoek-seorwib-czgv-right anterior arch of C1 with small surrounding degenerative soft tissue pannus, similar to slightly increased from 07/08/2024. Severe loss of joint space between the anterior arch of C1 and the dens again noted. No significant malalignment. Operative changes of the upper thoracic spine better depicted on separately dictated MRI thoracic spine. Unremarkable cervical cord signal. C2-3: Mild left onui-yyaxamj-ojmq-right facet arthropathy. No significant spinal canal or foraminal stenosis. C3-4: Mild diffuse disc bulging. Mild facet arthropathy, rkep-kjdpzxv-erbp-right. Minimal focal spinal canal stenosis. No significant foraminal stenosis. C4-5: Loss of disc height with diffuse disc bulging and superimposed central disc protrusion contacting the ventral cord. Mild focal spinal canal stenosis. Mild facet arthropathy. Mild/moderate right foraminal stenosis. C5-6: Small posterior central disc protrusion. Minimal focal spinal canal stenosis. Moderate right and mild/moderate left foraminal stenosis. C6-7: Diffuse disc bulging with tiny superimposed posterior central disc protrusion. Mild/moderate right foraminal stenosis. No significant spinal canal or left foraminal stenosis. C7-T1: Mild bilateral foraminal disc bulging. No significant spinal canal stenosis. Mild bilateral foraminal stenosis. Other: Cataract surgery. MRI/Spine Cervical (Routine) IMPRESSION: 1. Multilevel spondylosis as above, most prominent at C1-C2 with increasing ass ociated marrow edema compared with 07/08/2024. No high-grade foraminal or spinal canal stenosis identified, however there is a po sterior central disc protrusion at C4-C5 contacting the ventral cord. 2. Additional description as above. Reading Location: [id number]
== END | disposition home or self-care (01) ==
PROVIDERS: PCP Family Medicine; Referring Provider Family Medicine; Visit Provider Family Medicine
DX: M54.6 Pain in thoracic spine (principal); R68.89 Other general symptoms and signs
CPT/HCPCS: 72141; 72146

== ENCOUNTER 2025-03-12 07:14 | Observation (INO) | payer MEDICARE, SELFPAY ==
[2025-03-12] VITALS (10 sets, daily range): BP systolic 102–146; BP diastolic 63–89; PULSE 64–94; RESP 15–20; TEMP 36.5–36.7; O2SAT 95–98; BMI 24.2; BMI 22.7
--- NOTE | 2025-03-12 07:32 | ED.RN ---
PT BROUGHT IN BY HER SON, CO CHRONIC NECK PAIN AND NAUSEA IN THE MORNINGS. PT CARES FOR HER WHO HAS [place] AND IS NOT AMBULATORY. 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 CAUSES HER ABD PAIN. HX OF AFIB. SON IS AT THE BEDSIDE TODAY.
--- NOTE | 2025-03-12 07:38 | EKG12_ITS ---
Test Reason : GENERAL Blood Pressure : */* mmHG Vent. Rate : 64 BPM Atrial Rate : 187 BPM P-R Int : * ms QRS Dur : 78 ms QT Int : 462 ms P-R-T Axes : * 15 113 degrees QTcB Int : 476 ms Critical Test Result: AV Block Atrial flutter with variable block Abnormal ECG Confirmed by ALEJANDRA GLOVER, LUKAS ([id number]), film editor KRISTINE DURAN ([id number]) on 03/15/2025 9:17:20 AM Referred By: Confirmed By: LUKAS ROBERTS MD
--- NOTE | 2025-03-12 07:40 | EX.ED.DYSGE1 ---
HPI History of Present Illness Chief Complaint: General Illness Narrative Narrative: Patient is a 79-year-old female who is presenting to the ER with multiple complaints. Patient is having upper thoracic chronic back pain for a year status post surgeries and spinal injections. Patient has seen multiple specialist for this, she has an appointment next week. This is not acute today. Patient acute concern is weakness, fatigue, nausea since Saturday. 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 Son is at bedside. Son states that patient is weak and fatigued caring for her . Patient has no headache or neck pain. No significant chest pain or shortness of breath. Mild abdominal discomfort. No history of acid reflux, she does take acid reflux medication. No bowel or bladder changes. Patient uses with 2 feet for ambulation at home. No recent falls. No recent trauma. No true emesis, just nausea for the past 2 days. [facility] Medical History Postoperative hematoma Dehydration Dizziness Intractable pain UTI (urinary tract infection) Wears hearing aid Arthritis Restless legs Shortness of breath on exertion On amiodarone therapy Wears dentures Post-menopausal Depression Anxiety Rheumatoid arthritis History of hiatal hernia Gastric reflux Non-smoker CPAP (continuous positive airway pressure) dependence Sleep apnea History of pain when walking History of echocardiogram History of stress test Hypertension Cardiology follow-up encounter History of atrial fibrillation History of cardioversion CLARISSE (obstructive sleep apnea) Mixed 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 Pulmonary hypertension Chronic cholecystitis with calculus Paroxysmal atrial fibrillation Essential (primary) hypertension Esophageal hiatal hernia 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, left 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 Atrial flutter GERD (gastroesophageal reflux disease) Home Medications ?Medication ?Instructions ?Recorded ?Last Taken ?Type sertraline 100 mg tablet 100 mg PO QHS 12/14/20 07/18/24 History acetaminophen 500 mg tablet 1,000 mg PO Q8 PRN Pain 12/20/23 Unknown History metoprolol tartrate 50 mg tablet 50 mg PO BID This is a dose 03/02/24 07/19/24 Rx increase #180 tabs apixaban 5 mg tablet (Eliquis) 5 mg PO BID #180 tabs 04/07/24 07/18/24 Rx cholecalciferol (vitamin D3) 50 50 mcg PO DAILY 07/19/24 07/18/24 History mcg (2,000 unit) capsule pantoprazole 40 mg tablet,delayed 40 mg PO DAILY #90 tabs 08/19/24 Unknown Rx release diltiazem HCl 180 mg 180 mg PO DAILY 03/12/25 03/12/25 History capsule,extended release 24 hr magnesium oxide 400 mg PO DAILY SUPPLEMENT 03/12/25 03/11/25 History oxycodone 5 mg tablet 2.5 - 5 mg PO QHS 03/12/25 03/11/25 History tizanidine 4 mg tablet 4 mg PO Q8H PRN muscle spasticity 03/12/25 Unknown History Allergy/AdvReac Type Severity Reaction Status Date / Time No Known Allergies Allergy Verified 03/12/25 07:15 Family History Mother Hypertension Arthritis Heart disease Father Cancer Brother Cancer Son CVA (cerebral vascular accident) Diabetes Brother TIA (transient ischemic attack) Sister Cancer kidney cancer Thyroid disorder Surgical History Status post right knee replacement Hx of cystoscopy History of arthroscopy of right knee History of cardiac catheterization History of open heart surgery History of cholecystectomy History of atrial septal defect repair History of appendectomy Status post laparoscopic Himanshu fundoplication (~11/2018) History of hysterectomy Social History Smoking Status: Never smoker alcohol intake: never substance use type: does not use caffeine: Yes Type: coffee Number of servings: 1 what type of physical activity do you participate in: walking frequency: daily duration: 30-45 minutes/day seatbelt use: always do you feel safe at home: Yes ROS ROS ED ROS Narrative REVIEW OF SYSTEMS: Unless otherwise stated in this report the patient's positive and negative responses for review of systems for constitutional, eyes, ENT, cardiovascular, respiratory, gastrointestinal, neurological, , musculoskeletal, and integument systems and related systems to the presenting problem are either stated in the history of present illness or were not pertinent or were negative for the symptoms and/or complaints related to the presenting medical problem. EXAM Physical Exam Narrative Exam Narrative: Vital signs reviewed and patient is not hypoxic. Son is at bedside General: The patient appears well and in no apparent distress. Patient is resting comfortably on cart. Not toxic, lethargic, or listless. Skin: Warm, dry, no pallor noted. There is no rash noted. Head: Normocephalic, atraumatic Eye: Normal conjunctiva, no drainage, EOMI. PERRL. Ears, Nose, Mouth, and Throat: oral mucosa is slightly dry. Nares patent. Mouth without vesicles. Cardiovascular: Regular Rate and Rhythm, no murmurs, gallops, or rubs Respiratory: Patient is in no distress, no accessory muscle use, lungs are clear to auscultation, no wheezing, rales or rhonchi Back: non-tender, no CVA tenderness bilaterally to percussion. NO CTLS midline or paraspinal tenderness to palpation. GI: Soft, minimal midepigastric tenderness to palpation, no tenderness to palpation, no masses appreciated. No rebound, guarding, or rigidity noted. Musculoskeletal: The patient has full range of motion of all extremities and joints with no difficulty. Patient has no motor, no sensory deficits. Neurological: A&O x4, normal speech, no focal neurological deficits. Psychiatric: Cooperative Const Vital Signs: 03/12/25 07:15 03/12/25 07:26 03/12/25 09:20 Temperature 97.7 F L Temperature Source Oral Pulse Rate 69 66 Respiratory Rate 16 15 Respiratory Effort Normal Respiratory Pattern Normal Blood Pressure 105/63 102/70 Blood Pressure Mean 77 80 Pulse Ox 98 96 Oxygen Delivery Method Room Air Room Air MDM MDM MDM Narrative Medical decision making narrative: Patient seen and examined: IV fluids, Zofran, Pepcid, Lidoderm patch, EKG, basic lab work will be done. Patient has chronic A-fib. Differential diagnosis includes but is not limited to: Relevant laboratory interpretation: Platelets 130, bun 22, creatinine 0.8. Troponin and BNP have been added on. Reevaluation: 0931 patient has no symptoms. Patient feels significantly better after Zofran and IV fluids Social barriers to healthcare: There are no food insecurities, there is no issue with transportation, there are no insurance barriers Disposition: Patient was given IV fluids, Zofran and Pepcid. Patient was prescribed Zofran and Lidoderm patches. Patient has a follow-up with a\spinal specialist next week. Patient's been having upper back pain for a year. Son is at bedside. Patient is tired and fatigued, patient is taking care of her at home. 0908 I have spoken to the stewardesses teacher on-call, Dr. Martin. He agrees with 2-1 AV block, patient is on Eliquis, since patient is having weakness, nausea, and her age, he recommended admission to the hospital for observation and to see if patient symptoms would worsen and if patient would need a pacemaker or not. He has reviewed the 2 EKGs done today. 09 patient's case was discussed with her. Patient was recommended to be admitted for observation by cardiology. Patient agrees. Patient has no symptoms currently. Patient feels significant better after Zofran and IV fluids. Lab work shows no significant findings. Patient had add-on troponin, BMP, and coags. Patient is on Eliquis. No other further recommendations from Dr. Martin. Hospitalist has been paged, cardiology be on consultation Dr Owen agrees with admission Lab Data Attestation: I reviewed the patient's lab results. Labs: Laboratory Results - last 24 hr 03/12/25 07:50 WBC 4.7 RBC 4.45 Hgb 12.2 Hct 38.4 MCV 86.3 MCH 27.4 MCHC 31.8 L RDW Std Deviation 48.3 H RDW Coeff of Reji 15.3 H Plt Count 130 L MPV 10.9 Immature Gran % (Auto) 0.400 Neut % (Auto) 65.6 Lymph % (Auto) 22.6 [place] % (Auto) 9.7 Eos % (Auto) 1.1 Baso % (Auto) 0.6 Absolute Neuts (auto) 3.1 Absolute Lymphs (auto) 1.07 Nucleated RBC % 0 Sodium 138 Potassium 4.5 Chloride 101 Carbon Dioxide 27.2 Anion Gap 10 BUN 22 H Creatinine 0.89 Estim Creat Clear Calc 40.29 L Est GFR (MDRD) Non-Af 66 BUN/Creatinine Ratio 24.3 H Glucose 144 H Calcium 9.4 Total Bilirubin 0.45 AST 24 ALT 10 Alkaline Phosphatase 118 H Total Protein 7.1 Albumin 4.0 Globulin 3.1 Albumin/Globulin Ratio 1.3 Lipase 80 H EKG Initial EKG: Attestation: I personally reviewed and interpreted this EKG as follows: (EKG interpretation. An irregular irregular rhythm at 64 beats a minute. Normal axis deviation. Nonspecific ST findings. QTc of 476. EKG reading second-degree type II block, however P-Ps do not appear to be coordinating perfectly, not a third-degree type block, this would be repeated.) Comments: EKG #2. EKG interpretation. Regular rhythm at 62 beats a minute. Discharge Plan Dx/Rx/DC Orders Clinical Impression: 2nd degree AV block, Nausea, Dehydration, mild Disposition Disposition: Acute Care Hospital [facility]
[2025-03-12] MEDS: Ondansetron 4 MG/2 ML Vial IV (07:53)
[2025-03-12] MEDS: 0.9% Normal Saline (1000mL) 1,000 ML 999 ML IV (07:53)
[2025-03-12 08:05] LABS: Absolute Lymphocyte Count 1.07 X10^3/uL (0.83-4.51); Absolute Neutrophil Count 3.1 X10^3/uL (2.0-7.7); Basophil# 0.03 X10^3/uL; Basophil% 0.6 % (0-1); Eosinophil# 0.05 X10^3/uL; Eosinophils% 1.1 % (0-5); Hematocrit 38.4 % (37-47); Hemoglobin 12.2 g/dL (12.0-15.0); Lymphocyte # 1.07 X10^3/ul (0.83-4.51); Lymphocyte % 22.6 % (19-41); Mean Corp Hgb Conc 31.8 g/dL (32-36); Mean Corpuscular Hgb 27.4 pg (27.0-32.0); Mean Corpuscular Volume 86.3 fL (81-99); Mean Platelet Vol. 10.9 fl (6.2-12.0); Monocyte# 0.46 X10^3/uL; Monocyte% 9.7 % (0-10); NRBC Flagged by Analyzer 0 % (0-5); Neutrophil # 3.11 X10^3/uL (2.7-7.7); Neutrophil % 65.6 % (47-70); Platelet Count 130 K/mm3 (150-450); RBC Distribution Width CV 15.3 % (11.6-14.6); RBC Distribution Width SD 48.3 fl (35.1-43.9); Red Blood Count 4.45 M/mm3 (4.2-5.4); White Blood Count 4.7 K/mm3 (4.4-11.0)
--- NOTE | 2025-03-12 08:10 | EKG12_ITS ---
Test Reason : REPEAT Blood Pressure : */* mmHG Vent. Rate : 62 BPM Atrial Rate : 62 BPM P-R Int : 216 ms QRS Dur : 86 ms QT Int : 458 ms P-R-T Axes : 74 31 117 degrees QTcB Int : 464 ms Atrial flutter with variable block Nonspecific T wave abnormality Abnormal ECG Confirmed by ALEJANDRA GLOVER, LUKAS ([id number]), order editor KRISTINE DURAN ([id number]) on 03/15/2025 9:54:57 AM Referred By: Confirmed By: LUKAS ROBERTS MD
[2025-03-12 08:23] LABS: ALB/GLOB Ratio 1.3 RATIO (0.9-2.4); AST(SGOT) 24 U/L (<=31); Alanine Aminotransfer ALT/SGPT 10 U/L (<=34); Alkaline Phosphatase 118 U/L (35-104); Anion Gap 10 (5-15); BUN 22 mg/dL (4-19); BUN/Creat Ratio 24.3 RATIO (10-20); Calcium,Total 9.4 mg/dL (7.6-11.0); Carbon Dioxide 27.2 mmol/L (21.0-32.0); Chloride 101 mmol/L (98-108); Creatinine, Serum 0.89 mg/dL (0.70-1.20); EST Glomerular Filtration Rate 66 (>60); Estimated Creatinine Clearance 40.29 ml/min (50-250); Globulin 3.1 g/dL (2.2-4.2); Glucose 144 mg/dL (70-99); Lipase 80 U/L (13-75); Potassium 4.5 mmol/L (3.3-5.1); Protein, Total 7.1 g/dL (5.9-8.4); Sodium Level 138 mmol/L (133-145); Total Bilirubin 0.45 mg/dL (0.00-1.30)
[2025-03-12] MEDS: Lidocaine 5% Patch 1 PATCH TOPICAL (09:09)
[2025-03-12] MEDS: Famotidine 200 MG/20 ML MDV 20 MG in 0.9% Normal Saline (Pres. free 8 ML 300 MG IV (09:09)
--- NOTE | 2025-03-12 09:40 | PCM.HP.STD ---
HPI - General General Date of Admission: 03/12/25 Date of Service: 03/12/25 Chief Complaint: Fatigue HPI Narrative RUBEN LOBO, is a 79 Fwith past medical history significant for paroxysmal atrial fibrillation, ASD status postrepair dyslipidemia hypertension who presented with progressive generalized weakness and fatigue. Per patient he has been unsteady on his feet but denies having any fall. Also complains of chronic neck and back pain for which she is undergoing multiple epidural steroid injection. Decision was made to present patient to the hospital due to increasing fatigue. Workup in the emergency department was unremarkable except for EKG which demonstrated second-degree AV block. The health administration teacher on-call Dr. Rivas was notified recommended for patient to be admitted for subsequent evaluation in the hospital [facility] Medical History Postoperative hematoma Dehydration Dizziness Intractable pain UTI (urinary tract infection) Wears hearing aid Arthritis Restless legs Shortness of breath on exertion On amiodarone therapy Wears dentures Post-menopausal Depression Anxiety Rheumatoid arthritis History of hiatal hernia Gastric reflux Non-smoker CPAP (continuous positive airway pressure) dependence Sleep apnea History of pain when walking History of echocardiogram History of stress test Hypertension Cardiology follow-up encounter History of atrial fibrillation History of cardioversion CLARISSE (obstructive sleep apnea) Mixed hyperlipidemia 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 Pulmonary hypertension Chronic cholecystitis with calculus Paroxysmal atrial fibrillation Essential (primary) hypertension Esophageal hiatal hernia 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, left 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 Atrial flutter GERD (gastroesophageal reflux disease) Home Medications ?Medication ?Instructions ?Recorded ?Last Taken ?Type sertraline 100 mg tablet 100 mg PO QHS 12/14/20 03/11/25 History acetaminophen 500 mg tablet 1,000 mg PO Q8 PRN Pain 12/20/23 03/11/25 History metoprolol tartrate 50 mg tablet 50 mg PO BID This is a dose 03/02/24 03/11/25 Rx increase #180 tabs apixaban 5 mg tablet (Eliquis) 5 mg PO BID #180 tabs 04/07/24 03/11/25 Rx cholecalciferol (vitamin D3) 50 50 mcg PO DAILY 07/19/24 03/11/25 History mcg (2,000 unit) capsule pantoprazole 40 mg tablet,delayed 40 mg PO DAILY #90 tabs 08/19/24 03/11/25 Rx release diltiazem HCl 180 mg 180 mg PO DAILY 03/12/25 03/12/25 History capsule,extended release 24 hr magnesium oxide 400 mg PO DAILY SUPPLEMENT 03/12/25 03/11/25 History oxycodone 5 mg tablet 2.5 - 5 mg PO QHS 03/12/25 03/11/25 History tizanidine 4 mg tablet 4 mg PO Q8H PRN muscle spasticity 03/12/25 Unknown History Allergy/AdvReac Type Severity Reaction Status Date / Time No Known Allergies Allergy Verified 03/12/25 07:15 Family History Mother Hypertension Arthritis Heart disease Father Cancer Brother Cancer Son CVA (cerebral vascular accident) Diabetes Brother TIA (transient ischemic attack) Sister Cancer kidney cancer Thyroid disorder Surgical History Status post right knee replacement Hx of cystoscopy History of arthroscopy of right knee History of cardiac catheterization History of open heart surgery History of cholecystectomy History of atrial septal defect repair History of appendectomy Status post laparoscopic Himanshu fundoplication (~11/2018) History of hysterectomy Social History Smoking Status: Never smoker alcohol intake: never substance use type: does not use caffeine: Yes Type: coffee Number of servings: 1 what type of physical activity do you participate in: walking frequency: daily duration: 30-45 minutes/day seatbelt use: always do you feel safe at home: Yes ROS ROS Narrative GENERAL: Fatigue HEENT: denies headache, sinus congestion, or drainage, dysphagia RESPIRATORY: denies cough, sputum production, shortness of breath, dyspnea on exertion CARDIAC: denies chest pain, palpitations, orthopnea, PND GASTROINTESTINAL: Abdominal pain and nausea but no vomit GENITOURINARY: denies dysuria, urgency, frequency, heamaturia EXTREMITY: denies swelling MUSCULOSKELETAL: Chronic neck pain NEUROLOGIC: denies focal numbness, weakness, tingling HEMATOLOGIC: denies easy bruising and/or hemorrhage INTEGUMENT: denies rashes PSYCHIATRIC: denies suicidal or homicidal ideation Vital Signs Vital Signs Vital Signs: 03/12/25 07:15 03/12/25 07:26 03/12/25 09:20 Temperature 97.7 F L Temperature Source Oral Pulse Rate 69 66 Respiratory Rate 16 15 Respiratory Effort Normal Respiratory Pattern Normal Blood Pressure 105/63 102/70 Blood Pressure Mean 77 80 Pulse Ox 98 96 Oxygen Delivery Method Room Air Room Air Weight Weight: 56.245 kg Body Mass Index (BMI) 24.2 Physical Exam Narrative GENERAL: cooperative HEENT: Atraumatic; normocephalic EYES; Anicteric, Normal Conjunctiva NECK; supple, normal thyroid, RESPIRATORY: Diminished to auscultation CARDIOVASCULAR: Regular S1 S2, GI: soft, normoactive bowel sounds, : No Renal angle tenderness; EXTREMITIES: No edema, no clubbing, MUSCULOSKELETAL: no muscle wasting NEURO: Awake; no lateralizing signs. SKIN: No Rash PSYCH; Flat affect Results Lab / Micro Data 03/12/25 07:50 03/12/25 07:50 Labs: Laboratory Results - last 24 hr 03/12/25 07:50: WBC 4.7, RBC 4.45, Hgb 12.2, Hct 38.4, MCV 86.3, MCH 27.4, MCHC 31.8 L, RDW Std Deviation 48.3 H, RDW Coeff of Reji 15.3 H, Plt Count 130 L, MPV 10.9, Immature Gran % (Auto) 0.400, Neut % (Auto) 65.6, Lymph % (Auto) 22.6, [place] % (Auto) 9.7, Eos % (Auto) 1.1, Baso % (Auto) 0.6, Absolute Neuts (auto) 3.1, Absolute Lymphs (auto) 1.07, Nucleated RBC % 0, Sodium 138, Potassium 4.5, Chloride 101, Carbon Dioxide 27.2, Anion Gap 10, BUN 22 H, Creatinine 0.89, Estim Creat Clear Calc 40.29 L, Est GFR (MDRD) Non-Af 66, BUN/Creatinine Ratio 24.3 H, Glucose 144 H, Calcium 9.4, Total Bilirubin 0.45, AST 24, ALT 10, Alkaline Phosphatase 118 H, Total Protein 7.1, Albumin 4.0, Globulin 3.1, Albumin/Globulin Ratio 1.3, Lipase 80 H Assessment & Plan Assessment/Plan (1) 2nd degree AV block: PLAN: Plan Patient is a 79-year-old lady with past medical history significant for paroxysmal atrial fibrillation, ASD status postrepair dyslipidemia hypertension who presented with progressive generalized weakness and fatigue. EKG obtained in the emergency department demonstrated type II AV block. Admitted to monitored bed for subsequent management 1. A fib/flutter with 2-1 AV conduction EKG obtained in the ED did show questionable Mobitz type II. Admitted to telemetry for continuous monitoring as part of her management ordered serial cardiac enzymes 2D echo and consultation placed to cardiology from the ED. Patient is on Cardizem as well as metoprolol held given her presentation did continue patient systemic anticoagulant with 2. Chronic back pain with significant debility ? Requested for PT OT and mental health social worker to assist with discharge planning. Also ordered TSH for subsequent eval came back within normal 3. Congenital heart disease?ASD ? Status post repair 4. Hypertension ? Blood pressure controlled, home medications continued with dose adjustment as needed 5. Depression with anxiety ? Patient is on sertraline 6. GERD ? With previous laparoscopic Himanshu's fundoplication patient is on PPI continued 7. DVT prophylaxis ? Patient is on apixaban Advance planning; did discuss with the patient and family (patient's son who was in the room) regarding advanced directives as well as CODE STATUS. Did explain the various scenarios involved ( FULL CODE, DNR CCA, DNR CCA with no intubation, and DNR CC and what each meant) patient elected to be DNR CCA no intubation. Order was placed. Time spent on discussion 16 minutes. Charges/Coding Multi Select Codes Visit Charges Visit Charges: 75456 Init Hosp L2 Hospitalists' Procedures Procedures: 44496 Advncd Care Plan 30 Min
--- NOTE | 2025-03-12 09:45 | ECHOD_ITS ---
Reason For Study Reason For Study: ARRYTHMIA Procedure This was a 2D Doppler, Color Flow transthoracic echocardiogram. Exam performed portable in patient room. Left Ventricle Normal left ventricle. The estimated ejection fraction is 55-60 %. Right Ventricle Normal right ventricle. Normal systolic function. Atria The left atrium is moderately enlarged. The right atrium is moderately enlarged. Mitral Valve The mitral valve is structurally normal. No prolapse or stenosis seen. Mild (1+) mitral valve insufficiency. Tricuspid Valve Normal tricuspid valve. Moderate (2+) tricuspid valve insufficiency. Aortic Valve Trisinus/trileaflet aortic valve. Trivial aortic valve insufficiency. Pulmonic Valve The pulmonic valve is not well visualized. Great Vessels The aortic root is not well visualized. Pericardium/Pleural No pericardial effusion. MMode/2D Measurements & Calculations LVIDd: 3.9 cm IVSd: 0.75 cm LVOT diam: 2.0 cm LVIDs: 2.9 cm LVPWd: 1.1 cm LVOT area: 3.3 cm2 RVDd: 4.0 cm FS: 25.1 % Ao root diam: 3.0 cm LAV(MOD-bp): 77.7 ml LVAd ap4: 19.4 cm2 LAV(MOD-bp) Indexed: 51.0 ml/m2 LVLd ap4: 6.8 cm LAV(MOD-sp2): 57.7 ml EDV(MOD-sp4): 47.6 ml LAV(MOD-sp4): 88.7 ml EDV(sp4-el): 47.2 ml LVAs ap4: 13.9 cm2 LVLs ap4: 6.3 cm ESV(MOD-sp4): 28.3 ml ESV(sp4-el): 26.2 ml EF(MOD-sp4): 40.6 % EF(sp4-el): 44.5 % SV(MOD-sp4): 19.3 ml SV(sp4-el): 21.0 ml LA A4 area: 27.2 cm2 SI(MOD-sp4): 12.7 ml/m2 LA dimension(2D): 4.3 cm RA A4 area: 23.0 cm2 Time Measurements MV dec time: 0.15 sec Doppler Measurements & Calculations MV E max sandor: 122.8 cm/sec Lat Peak E' Sandor: 6.9 cm/sec Med Peak E' Sandor: 9.5 cm/sec MV A max sandor: 41.3 cm/sec E/E' lat: 17.8 E/E' med: 13.0 MV E/A: 3.0 MV V2 max: 131.2 cm/sec Ao V2 max: 98.1 cm/sec MV max P.9 mmHg MV dec slope: 810.5 cm/sec2 Ao max P.9 mmHg MV V2 mean: 63.1 cm/sec Ao V2 mean: 64.9 cm/sec MV mean P.2 mmHg Ao mean P.0 mmHg MV V2 VTI: 24.1 cm Ao V2 VTI: 19.0 cm AV (velocity ratio): 0.93 MVA(VTI): 2.4 cm2 MED(I,D): 3.0 cm2 MED(V,D): 3.1 cm2 AI max sandor: 443.2 cm/sec LV V1 max: 92.7 cm/sec SV(LVOT): 57.9 ml AI max P.6 mmHg LV V1 max P.4 mmHg LV V1 mean P.9 mmHg AI dec slope: 232.9 cm/sec2 LV V1 mean: 63.2 cm/sec AI P1/2t: 557.3 msec LV V1 VTI: 17.6 cm PA V2 max: 165.0 cm/sec TR max sandor: 304.0 cm/sec PA V2 mean: 101.1 cm/sec TR max P.0 mmHg PA mean PG (full): 1.6 mmHg ECHO/Echo Complete Interpretation Summary The estimated ejection fraction is 55-60 %. Normal LV systolic function Mild MR Trivial aortic regurgitation Moderate tricuspid dilatation. No significant change from previous echocardiogram Ordering Physician: Anthony Owen Referring Physician: Jame De La Garza MD Performed By: Chanell Ruff RCS
[2025-03-12 10:08] LABS: International Normalized Ratio 1.3; Prothrombin Time (Protime)PT. 16.4 SECONDS (11.7-14.9)
[2025-03-12 10:09] LABS: Partial Thromboplast Time 31.9 Seconds (24.1-36.2)
[2025-03-12 10:39] LABS: Pro- Brain NATRIURETIC PEPTIDE 1002 pg/mL (<=1800); Troponin T High Sensitivity 13 ng/L (<=14)
[2025-03-12 11:49] LABS: Troponin T High Sens 2 HR 12 ng/L (<=14)
[2025-03-12] MEDS: Acetaminophen 500 MG Tablet 1000 MG PO ×2 (13:01→21:15)
[2025-03-12] MEDS: oxyCODONE 5 MG Tablet PO (13:01)
--- NOTE | 2025-03-12 13:17 | PCM.CONS.C ---
Assessment & Plan Assessment/Plan (1) Paroxysmal atrial fibrillation: (2) Atrial flutter, paroxysmal: (3) Nausea: (4) MUÑOZ (dyspnea on exertion): (5) Fatigue: PLAN: 79-year-old patient I was consulted for evaluation of this patient as she has abnormal EKG Presentation with symptoms of nausea fatigue generalized weakness. Review of the quality assurance monitor body showed evidence of atrial flutter with variable ventricular rate Patient had history of ASD which was repaired in 1962 as a child And she been seen and followed by the hotel lobby concierge here at [facility] Patient has been on rate control as well as on anticoagulation with Eliquis. She was on diltiazem hydrochloride 180 mg daily in addition to metoprolol 50 mg twice daily as well patient has been treated with amiodarone. On review of the cardiac record patient had an echocardiogram previously showed EF in the range of 60% no significant valvular abnormality noted. Cardiac care plan recommendations; This patient with multiple medical comorbidities Has paroxysmal atrial fibrillation Essential hypertension Pulmonary hypertension CLARISSE The quality assurance monitor body did reveal atrial flutter with variable ventricular rate. Recommend to monitor over the night continue on the anticoagulation with apixaban In addition I reduced the dose of the beta-kelly to metoprolol 25 twice daily Reduce the dose of Cardizem to 30 every 8 hour. Will repeat an echocardiogram to assess and evaluate LV function. Will follow-up clinically during this admission once stable she can be discharged likely tomorrow and plan of follow-up earlier with the primary hotel lobby concierge To discuss further plan possible synchronized cardioversion which can be set up as an outpatient. HPI Consult Data Date of Consult: 03/12/25 HPI Narrative Reason for Consultation: Atrial flutter with variable ventricular rate HPI Narrative: RUBEN LOBO, is a 79 F who presents [facility] Medical History Postoperative hematoma Dehydration Dizziness Intractable pain UTI (urinary tract infection) Wears hearing aid Arthritis Restless legs Shortness of breath on exertion On amiodarone therapy Wears dentures Post-menopausal Depression Anxiety Rheumatoid arthritis History of hiatal hernia Gastric reflux Non-smoker CPAP (continuous positive airway pressure) dependence Sleep apnea History of pain when walking History of echocardiogram History of stress test Hypertension Cardiology follow-up encounter History of atrial fibrillation History of cardioversion CLARISSE (obstructive sleep apnea) Mixed hyperlipidemia senior care current use of 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 drug Pulmonary hypertension Chronic cholecystitis with calculus Paroxysmal atrial fibrillation Essential (primary) hypertension Esophageal hiatal hernia 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, left senior care current use of anticoagulant Atrial flutter GERD (gastroesophageal reflux disease) Home Medications ?Medication ?Instructions ?Recorded ?Last Taken ?Type sertraline 100 mg tablet 100 mg PO QHS 12/14/20 03/11/25 History acetaminophen 500 mg tablet 1,000 mg PO Q8 PRN Pain 12/20/23 03/11/25 History metoprolol tartrate 50 mg tablet 50 mg PO BID This is a dose 03/02/24 03/11/25 Rx increase #180 tabs apixaban 5 mg tablet (Eliquis) 5 mg PO BID #180 tabs 04/07/24 03/11/25 Rx cholecalciferol (vitamin D3) 50 50 mcg PO DAILY 07/19/24 03/11/25 History mcg (2,000 unit) capsule pantoprazole 40 mg tablet,delayed 40 mg PO DAILY #90 tabs 08/19/24 03/11/25 Rx release diltiazem HCl 180 mg 180 mg PO DAILY 03/12/25 03/12/25 History capsule,extended release 24 hr magnesium oxide 400 mg PO DAILY SUPPLEMENT 03/12/25 03/11/25 History oxycodone 5 mg tablet 2.5 - 5 mg PO QHS 03/12/25 03/11/25 History tizanidine 4 mg tablet 4 mg PO Q8H PRN muscle spasticity 03/12/25 Unknown History Allergy/AdvReac Type Severity Reaction Status Date / Time No Known Allergies Allergy Verified 03/12/25 07:15 Family History Mother Hypertension Arthritis Heart disease Father Cancer Brother Cancer Son CVA (cerebral vascular accident) Diabetes Brother TIA (transient ischemic attack) Sister Cancer kidney cancer Thyroid disorder Surgical History Status post right knee replacement Hx of cystoscopy History of arthroscopy of right knee History of cardiac catheterization History of open heart surgery History of cholecystectomy History of atrial septal defect repair History of appendectomy Status post laparoscopic Himanshu fundoplication (~11/2018) History of hysterectomy Social History Smoking Status: Never smoker alcohol intake: never substance use type: does not use caffeine: Yes Type: coffee Number of servings: 1 what type of physical activity do you participate in: walking frequency: daily duration: 30-45 minutes/day seatbelt use: always do you feel safe at home: Yes Physical Exam Cardio Cardio Narrative: Seen and evaluated at bedside family were at bedside she is comfortable Feeling better still having some mild nausea athletic monitor showed atrial flutter with variable ventricular rate Cardiac exam S1-S2 irregular No systolic or diastolic murmur Chest exam normal to auscultation bilateral Examination lower extremity no lower extremity edema noted. Risk Stratification Risk Stratification Applicable: No Objective Data Vital Signs: Vital Signs Temp Pulse Resp BP Pulse Ox O2 Del Method 97.9 F 70 18 123/85 H 95 Room Air 03/12/25 10:03/12/25 10:03/12/25 10:27 03/12/25 10:27 03/12/25 10:03/12/25 10:57 Oxygen Delivery Method Room Air Weight: 116 lb 9.992 oz Body Mass Index (BMI) 22.7 Intake & Output: Intake and Output for Last 24 Hours 03/10/25 03/11/25 03/12/25 23:59 23:59 23:59 Intake Total 1210 / 1210 Balance 1210 / 1210 Lab / Micro Data 03/12/25 07:50 03/12/25 07:50 Labs: Laboratory Results - last 24 hr 03/12/25 07:50: WBC 4.7, RBC 4.45, Hgb 12.2, Hct 38.4, MCV 86.3, MCH 27.4, MCHC 31.8 L, RDW Std Deviation 48.3 H, RDW Coeff of Reji 15.3 H, Plt Count 130 L, MPV 10.9, Immature Gran % (Auto) 0.400, Neut % (Auto) 65.6, Lymph % (Auto) 22.6, [place] % (Auto) 9.7, Eos % (Auto) 1.1, Baso % (Auto) 0.6, Absolute Neuts (auto) 3.1, Absolute Lymphs (auto) 1.07, Nucleated RBC % 0, Sodium 138, Potassium 4.5, Chloride 101, Carbon Dioxide 27.2, Anion Gap 10, BUN 22 H, Creatinine 0.89, Estim Creat Clear Calc 40.29 L, Est GFR (MDRD) Non-Af 66, BUN/Creatinine Ratio 24.3 H, Glucose 144 H, Calcium 9.4, Total Bilirubin 0.45, AST 24, ALT 10, Alkaline Phosphatase 118 H, Total Protein 7.1, Albumin 4.0, Globulin 3.1, Albumin/Globulin Ratio 1.3, Lipase 80 H 03/12/25 09:47: PT 16.4 H, INR 1.3, APTT 31.9, Troponin T High Sens 13, NT pro BNP II 1002, TSH 3.660 03/12/25 11:20: Troponin T Hi Sens 2 Hr 12 Cardiology Labs/Tests 03/12/25 07:50: WBC 4.7, RBC 4.45, Hgb 12.2, Hct 38.4, MCV 86.3, MCH 27.4, MCHC 31.8 L, Plt Count 130 L, MPV 10.9, Immature Gran % (Auto) 0.400, Neut % (Auto) 65.6, Lymph % (Auto) 22.6, [place] % (Auto) 9.7, Eos % (Auto) 1.1, Baso % (Auto) 0.6, Absolute Neuts (auto) 3.1, Nucleated RBC % 0, Sodium 138, Potassium 4.5, Chloride 101, Carbon Dioxide 27.2, Anion Gap 10, BUN 22 H, Creatinine 0.89, Est GFR (MDRD) Non-Af 66, BUN/Creatinine Ratio 24.3 H, Glucose 144 H, Calcium 9.4, Total Bilirubin 0.45 03/12/25 09:47: PT 16.4 H, INR 1.3, APTT 31.9 Rhythm: EKG: ECHO: Stress Test: Cardiac Cath: PCI: CT Surgery: Holter monitor: EPS: PPM: CXR: Chest CT Scan:
[2025-03-12 14:43] LABS: Troponin T High Sens 4 HR 12 ng/L (<=14)
[2025-03-12] MEDS: Metoprolol Tartrate 25 MG Tablet PO (21:12)
[2025-03-12] MEDS: dilTIAZem 30 MG Tablet PO (21:12)
[2025-03-12] MEDS: APIXABAN 5 MG TABLET PO (21:12)
[2025-03-12] MEDS: Sertraline 100 MG Tablet PO (21:15)
[2025-03-13] VITALS (7 sets, daily range): BP systolic 128–150; BP diastolic 85–100; PULSE 79–89; RESP 16–18; TEMP 36.6–36.7; O2SAT 96–97; BMI 23.6
[2025-03-13 05:39] LABS: Absolute Lymphocyte Count 1.65 X10^3/uL (0.83-4.51); Absolute Neutrophil Count 2.7 X10^3/uL (2.0-7.7); Basophil# 0.02 X10^3/uL; Basophil% 0.4 % (0-1); Eosinophil# 0.08 X10^3/uL; Eosinophils% 1.6 % (0-5); Hematocrit 36.7 % (37-47); Hemoglobin 11.5 g/dL (12.0-15.0); Lymphocyte # 1.65 X10^3/ul (0.83-4.51); Lymphocyte % 33.6 % (19-41); Mean Corp Hgb Conc 31.3 g/dL (32-36); Mean Corpuscular Hgb 27.3 pg (27.0-32.0); Mean Corpuscular Volume 87.2 fL (81-99); Mean Platelet Vol. 11.6 fl (6.2-12.0); Monocyte# 0.49 X10^3/uL; NRBC Flagged by Analyzer 0 % (0-5); Neutrophil # 2.65 X10^3/uL (2.7-7.7); Platelet Count 109 K/mm3 (150-450); RBC Distribution Width CV 15.5 % (11.6-14.6); RBC Distribution Width SD 49.2 fl (35.1-43.9); Red Blood Count 4.21 M/mm3 (4.2-5.4); White Blood Count 4.9 K/mm3 (4.4-11.0)
--- NOTE | 2025-03-13 06:00 | EKG12_ITS ---
Test Reason : AM EKG Blood Pressure : */* mmHG Vent. Rate : 81 BPM Atrial Rate : 192 BPM P-R Int : * ms QRS Dur : 78 ms QT Int : 386 ms P-R-T Axes : -89 54 96 degrees QTcB Int : 448 ms Atrial flutter with variable A-V block Abnormal ECG When compared with ECG of 12-Mar-2025 08:23, MANUAL COMPARISON REQUIRED DATA IS UNCONFIRMED Confirmed by ALEJANDRA GLOVER, LUKAS ([id number]), film editor supervisor KRISTINE DURAN ([id number]) on 03/19/2025 12:42:53 PM Referred By: NARCISO Confirmed By: LUKAS ROBERTS MD
[2025-03-13 06:04] LABS: Anion Gap 10 (5-15); BUN 15 mg/dL (4-19); BUN/Creat Ratio 22.3 RATIO (10-20); Carbon Dioxide 23.1 mmol/L (21.0-32.0); Chloride 105 mmol/L (98-108); Creatinine, Serum 0.69 mg/dL (0.70-1.20); EST Glomerular Filtration Rate 88 (>60); Estimated Creatinine Clearance 44.34 ml/min (50-250); Glucose 118 mg/dL (70-99); Magnesium 1.9 mg/dL (1.5-2.2); Phosphorus 4.2 mg/dL (2.7-4.5); Potassium 4.4 mmol/L (3.3-5.1); Sodium Level 138 mmol/L (133-145)
[2025-03-13] MEDS: Acetaminophen 500 MG Tablet 1000 MG PO ×2 (06:30→14:34)
[2025-03-13] MEDS: dilTIAZem 30 MG Tablet PO ×2 (06:30→14:34)
--- NOTE | 2025-03-13 09:10 | PCM.DC.SUM ---
Providers Date of Admission: 03/12/25 Date of Discharge: 03/13/25 Primary Care Physician: Dr. Jame De La Garza MD Consultations 03/12/25 10:12 Consult: Cardiology Routine Consulting Provider: Quincy Martin Reason for Consult: Second-degree AV block EMERGENT Consult: No MD Notified: Yes Date Notified: 03/12/25 Time Notified: 09:44 Method of Notification: ED Physician Initiated Reason For Visit: SECOND DEGREE AV BLOCK Diagnosis Discharge Diagnosis (1) Paroxysmal atrial fibrillation: Status: Chronic Code(s): I48.0 - Paroxysmal atrial fibrillation (2) Atrial flutter, paroxysmal: Status: Acute Code(s): I48.92 - Unspecified atrial flutter (3) Nausea: Status: Acute Code(s): R11.0 - Nausea (4) MUÑOZ (dyspnea on exertion): Status: Chronic Code(s): R06.09 - Other forms of dyspnea (5) Fatigue: Status: Acute Code(s): R53.83 - Other fatigue Plan Patient is a 79-year-old lady with past medical history significant for paroxysmal atrial fibrillation, ASD status postrepair dyslipidemia hypertension who presented with progressive generalized weakness and fatigue. EKG obtained in the emergency department demonstrated type II AV block. Admitted to monitored bed for subsequent management 1. A fib/flutter with 2-1 AV conduction EKG obtained in the ED did show questionable Mobitz type II. Admitted to telemetry for continuous monitoring as part of her management ordered serial cardiac enzymes 2D echo and consultation placed to cardiology from the ED. Patient is on Cardizem as well as metoprolol held given her presentation did continue patient systemic anticoagulant with apixaban Patient was seen in consultation by Dr. Martin with cardiology medication adjustments were made patient was on Cardizem 180 mg daily changed to 30 mg 3 times daily. Patient was also on metoprolol 50 mg twice daily this was decreased to 25 twice daily. Patient had a repeat echo done and plans for patient to follow-up with primary cardiology as outpatient for possible synchronized cardioversion as outpatient 2. Chronic back pain with significant debility ? Requested for PT OT and case management social worker to assist with discharge planning. Also ordered TSH for subsequent eval came back within normal 3. Congenital heart disease?ASD ? Status post repair 4. Hypertension ? Blood pressure controlled, home medications continued with dose adjustment as needed 5. Depression with anxiety ? Patient is on sertraline 6. GERD ? With previous laparoscopic Himanshu's fundoplication patient is on PPI continued 7. DVT prophylaxis ? Patient is on apixaban Medications at Discharge Home Medications sertraline 100 mg tablet 100 mg PO QHS 12/14/20 acetaminophen 500 mg tablet 1,000 mg PO Q8 PRN Pain 12/20/23 apixaban 5 mg tablet (Eliquis) 5 mg PO BID #180 tabs 04/07/24 cholecalciferol (vitamin D3) 50 mcg (2,000 unit) capsule 50 mcg PO DAILY 07/19/24 pantoprazole 40 mg tablet,delayed release 40 mg PO DAILY #90 tabs 08/19/24 magnesium oxide 400 mg PO DAILY SUPPLEMENT 03/12/25 oxycodone 5 mg tablet 2.5 - 5 mg PO QHS 03/12/25 tizanidine 4 mg tablet 4 mg PO Q8H PRN muscle spasticity 03/12/25 diltiazem HCl 30 mg tablet 30 mg PO Q8 30 days #90 tabs 03/13/25 metoprolol tartrate 25 mg tablet 25 mg PO BID 30 days #60 tabs 03/13/25 Hospital Course Summary of Care Provided Minutes Spent on Discharge: 32 Physical Exam Narrative GENERAL: cooperative, appears jittery HEENT: Atraumatic; normocephalic EYES; Anicteric, Normal Conjunctiva NECK; supple, normal thyroid, RESPIRATORY: Diminished to auscultation CARDIOVASCULAR: Regular S1 S2, GI: soft, normoactive bowel sounds, : No Renal angle tenderness; EXTREMITIES: No edema, no clubbing, MUSCULOSKELETAL: no muscle wasting NEURO: Awake; no lateralizing signs. SKIN: No Rash PSYCH; Flat affect Weight / BMI Weight Weight: 54.9 kg Body Mass Index (BMI) 23.6 ABG / Lab / Microbiology Data 03/13/25 05:08 03/13/25 05:08 Laboratory: Laboratory Results - last 24 hr 03/12/25 09:47: PT 16.4 H, INR 1.3, APTT 31.9, Troponin T High Sens 13, NT pro BNP II 1002, TSH 3.660 03/12/25 11:20: Troponin T Hi Sens 2 Hr 12 03/12/25 13:55: Troponin T Hi Sens 4Hr 12 03/13/25 05:08: WBC 4.9, RBC 4.21, Hgb 11.5 L, Hct 36.7 L, MCV 87.2, MCH 27.3, MCHC 31.3 L, RDW Std Deviation 49.2 H, RDW Coeff of Reji 15.5 H, Plt Count 109 L, MPV 11.6, Immature Gran % (Auto) 0.400, Neut % (Auto) 54.0, Lymph % (Auto) 33.6, [place] % (Auto) 10.0, Eos % (Auto) 1.6, Baso % (Auto) 0.4, Absolute Neuts (auto) 2.7, Absolute Lymphs (auto) 1.65, Nucleated RBC % 0, Sodium 138, Potassium 4.4, Chloride 105, Carbon Dioxide 23.1, Anion Gap 10, BUN 15, Creatinine 0.69 L, Estim Creat Clear Calc 44.34 L, Est GFR (MDRD) Non-Af 88, BUN/Creatinine Ratio 22.3 H, Glucose 118 H, Calcium 9.0, Phosphorus 4.2, Magnesium 1.9 D/C Instructions Discharge Diet: No restrictions Discharge Activity: Return to Normal Activity Call your doctor if you observe: Fever of 101 or Higher, Shortness of breath, Fainting spells and Chest pain DC O2, CPAP, BIPAP Needs Home O2 Discharge instructions: No Meaningful Use Info Meaningful Use Meaningful Use Diagnoses (Choose all that apply): None applicable Ischemic Stroke Statin Dosing Therapy Reference: STATIN DOSE THERAPY REFERENCE: * Patients > 75 years receive moderate or high dose statin therapy. * Patients 75 years or YOUNGER should receive HIGH intensity statin dose unless contraindicated. You will be required to document reason for non-treatment if statin daily dose does not meet guidelines. HIGH DOSE STATIN THERAPY DAILY Atorvastatin > than or = to 40 mg Rosuvastatin > than or = to 20 mg Amlodipine + Atorvastatin > than or = to 2.5/40 mg Ezetimibe + Simvastatin 10/80 mg Simvastatin 80mg Discharge Plan Admission Admit Date/Time: 03/12/25 09:40 Attending Provider: Anthony Owen Primary Care Provider: Jame De La Garza Consulting Providers: Quincy Martin Discharge Orders/Prescriptions Prescriptions: New diltiazem HCl 30 mg Tablet 30 mg PO Q8 30 Days Qty: 90 0RF metoprolol tartrate 25 mg Tablet 25 mg PO BID 30 Days Qty: 60 0RF Continued sertraline 100 mg tablet 100 mg PO QHS acetaminophen 500 mg tablet 1,000 mg PO Q8 PRN (Reason: Pain) cholecalciferol (vitamin D3) 50 mcg (2,000 unit) capsule 50 mcg PO DAILY magnesium oxide 400 mg magnesium tablet 400 mg PO DAILY tizanidine 4 mg tablet 4 mg PO Q8H PRN (Reason: muscle spasticity) oxycodone 5 mg tablet 2.5 - 5 mg PO QHS Patient Comments: PT TAKES NEEDED. Eliquis 5 mg tablet 5 mg PO BID Qty: 180 3RF pantoprazole 40 mg tablet,delayed release (DR/EC) 40 mg PO DAILY Qty: 90 3RF Discontinued diltiazem HCl 180 mg capsule,extended release 24hr 180 mg PO DAILY metoprolol tartrate 50 mg tablet 50 mg PO BID Qty: 180 3RF Referrals / Follow Up: Jame De La Garza MD [Primary Care Provider] - Within 2 Weeks Quincy Martin MD [Med Staff - Active Staff] - Within 2 Weeks Disposition Disposition (needs filled in before D/C Order can be placed): Home, Self Care Charges/Coding Visit Charges Inpatient E&M: 73346 Disch Hosp >30min
[2025-03-13] MEDS: Metoprolol Tartrate 25 MG Tablet PO (09:12)
[2025-03-13] MEDS: APIXABAN 5 MG TABLET PO (09:12)
[2025-03-13] MEDS: Cholecalciferol (VIT D3) 25 MCG TABLET (1,000 UNITS) 50 MCG PO (09:13)
[2025-03-13] MEDS: Magnesium Chloride 64 MG Delay Rel.Tablet 128 MG PO (09:13)
[2025-03-13] MEDS: Pantoprazole Sodium 40 MG Tablet PO (09:13)
== END 2025-03-13 09:10 | disposition home or self-care (01) ==
LOC: ED 09:29 → PCU 10:01
PROVIDERS: Admitting Provider Internal Medicine; Emergency Provider Emergency Medicine; PCP Family Medicine; Visit Provider Internal Medicine
DX: I44.1 Atrioventricular block, second degree (principal); I48.0 Paroxysmal atrial fibrillation; I48.92 Unspecified atrial flutter; I10 Essential (primary) hypertension; F41.9 Anxiety disorder, unspecified; R11.0 Nausea; E86.0 Dehydration; F32.A Depression, unspecified; E78.2 Mixed hyperlipidemia; K21.9 Gastro-esophageal reflux disease without esophagitis; R06.09 Other forms of dyspnea; M54.9 Dorsalgia, unspecified; G89.29 Other chronic pain; G47.33 Obstructive sleep apnea (adult) (pediatric); Z79.01 Long term (current) use of 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; Z79.891 Long term (current) use of opiate analgesic; Z90.710 Acquired absence of both cervix and uterus
CPT/HCPCS: 36415; 80048; 80053; 83690; 83735; 83880; 84100; 84443; 84484; 85025; 85610; 85730; 93005; 93306; 94668; 96374; 96375; 97161; 97166; 99221; 99252; 99284; A4216; G0378; G0463; J2405

== ENCOUNTER 2025-05-19 11:30 | Outpatient (RCR) | payer MEDICARE, SELFPAY ==
--- NOTE | 2025-04-12 14:21 | HP.PTEVAL ---
Patient's Visit Information Visit Information Visit Information: RUBEN LOBO is a 80 year old F referred to Physical Therapy by Dr. Juan Manuel Martinez MD with a diagnosis of CERVICAL DISC DEGENERATION. Date of Evaluation: 04/12/25 Physical Therapist: Berny Freitas, PT, Cert MDT, OCS Visit Plan Frequency: 2x /Week Duration: 4 Weeks Plan: PT INTERVENTIONS MANUAL THERAPY ( STM/TRACTION CERVICAL) ,CERVICAL ROM ,POSTURAL EX'S ,STRENGTHENING AND MODALITIES Subjective Subjective: This 80 y/o female presents to physical therapy with cervical pain. Patient has had epidural injection neck thus had spinal hematoma. Patient had T1 -T6 laminectomy and [facility] Aug 08. Patient d/c to home on Aug after 3-4 days with fww and neck brace . Patient had to wear neck brace for [address] Martinez ,recommended PT and x-rays cervical DDD,. Dr Martinez want another MRI. Patient located cervical spine to base . Described as ache. Medication oxycodone. Patient aggravating standing/bending ,flexion ,turning and lifting . Alleviating factors rest. Denies paresthesia/tingling-. Denies dizziness/nausea/tinnitus. Patient has global ESTRADA. Pain pain affects sleeping. Patient condition affects QOL and function /ADL. Patient goals to decrease pain. SOCAIL: Pain Bilateral Neck: Pain Intensity (Out of 10): 7 Pain Intensity Range: 10 Objective Objective: POSTURE: mild thoracic kyphosis GAIT: reciprocal pattern PALAPTION: tender UT/levator/paraspinals NEURO: denies paresthesia/tingling ,reflexes C5-6-7 1/3 CERVICAL ROM: flexion mod loss ,lateral flexion severe loss ,extension severe loss , rotation mod/severe loss BUE AROM: WFL MMT: grossly 4/5 ,shoulders 4-/5 Special Tests C/S Radiculapathy - Left Upper limb tension test: Negative C/S Radiculapathy - Right Upper limb tension test: Negative C/S Radiculapathy - Left Spurlings: Positive C/S Radiculapathy - Right [place]: Positive C/S Radiculapathy - Left Cervical distraction: Negative C/S Radiculapathy - Right Cervical distraction: Negative C/S Radiculapathy - Left Relief test: Negative C/S Radiculapathy - Right Relief test: Negative Sharp Miriam: Negative Vertebral Artery Test: Negative Alar Ligament Test: Negative Balance/Special Test Scores Oswestry Neck Score: 34 Goals Goal 1:: Patient to be I with HEP for cervical Goal Time Frame: 4-6 Weeks Goal 2:: Patient to demonstrate 40% improvement with less pain and improved function Goal Time Frame: 4-6 Weeks Goal 3:: Patient to improve cervical ROM for function of recovery for driving Goal Time Frame: 4-6 Weeks Goal 4:: Patient to improve neck oswestry score by 5 points to improve QOL and function Goal Time Frame: 4-6 Weeks Rehabilitation Potential Physical Therapy Diagnosis: Patient has h/o T1-6 laminectomy from hematoma Aug 09 with pain ,decrease ROM cervical ,tenderness throughout impairs ADLS and housework tasks thus benefit from skilled PT Rehabilitation Potential: Good Anticipated Interventions Patient/Client Instruction: Educate patient on: Condition and Plan of Care For the Purpose of:: To decrease pain, To increase ROM, To improve muscle performance and motor function, To improve ability to perform ADL's, To increase tolerance to activity/condition/position, To improve ability of physical actions for home/community/work/leisure, To improve health of tissue, To decrease soft tissue restriction, To increase flexibility/ROM, To improve endurance and To assume or resume ADL's Therapeutic Exercise to Include: Strength training, Postural training, Flexibilty training, Active ROM and Scapular Strength/Stabilization For the Purpose of:: To decrease pain, To increase ROM, To improve muscle performance and motor function, To improve ability to perform ADL's, To increase tolerance to activity/condition/position, To improve ability of physical actions for home/community/work/leisure, To improve health of tissue, To decrease soft tissue restriction, To increase flexibility/ROM and To improve tolerance to ADL's Manual Therapy Techniques to Include: Soft tissue mobilization Comment: CERVICAL TRACTION For the Purpose of:: To decrease pain, To increase ROM, To improve nutrient delivery to tissue, To increase oxygenation perfusion, To improve muscle performance and motor function, To improve health of tissue and To decrease soft tissue restriction TENS: Yes IF ES: Yes Cryotherapy (ice pack, ice massage): Yes Thermo therapy (hot pack): Yes Ultrasound (thermal/non thermal): Yes For the Purpose of:: To decrease pain, To increase ROM, To improve nutrient delivery to tissue, To increase oxygenation perfusion, To improve health of tissue and To decrease soft tissue restriction Text: Thank you for the opportunity to evaluate your patient. For Medicare and Medicare HMO plans, please review the plan of care and approve it. It will need to be FAXED BACK to us at [phone] for Medicare purposes. For Medicare only, by signing this I certify the plan of care. Please let me know if there are questions or concerns regarding this plan of care. Physician Signature: Date:
--- NOTE | 2025-05-19 12:32 | HP.PTDCSUM ---
Discharge Summary D/C summary: It has been my pleasure to treat RUBEN LOBO referred by Dr. Juan Manuel Martinez MD, with the diagnosis of CERVICAL DISC DEGENERATION for a total of 8 visit(s). Discharge Date: 05/19/25 Please see the following information for a summary of their discharge status. Subjective Subjective: Doing some better plan to see for A-FIB Able to sleep less medication Able to work in garden Pain Bilateral Neck: Pain Intensity (Out of 10): 2 Overall Improvement % Improvement: 50 Objective Objective/Function: OSTURE: mild thoracic kyphosis GAIT: reciprocal pattern PALAPTION: tender UT/levator/paraspinals NEURO: denies paresthesia/tingling ,reflexes C5-6-7 1/3 CERVICAL ROM: flexion mod loss ,lateral flexion mod loss ,extension/mod severe loss , rotation mod loss BUE AROM: WFL MMT: grossly 4/5 ,shoulders 4-/5 Goals Goal 1:: Patient to be I with HEP for cervical Goal Progress: Goal Met Goal 2:: Patient to demonstrate 40% improvement with less pain and improved function Goal Progress: Goal Met Goal 3:: Patient to improve cervical ROM for function of recovery for driving Goal Progress: Goal Met Goal 4:: Patient to improve neck oswestry score by 5 points to improve QOL and function Goal Progress: Goal Met Plan Plan: D/C D/C Information Discharge Comments: HEP d/c sentence: If there are questions or concerns regarding this patient's physical therapy, please feel free to call me at [phone]. Thank you for the referral of this patient. Sincerely, Berny Freitas, PT, Cert MDT, OCS Balance/Gait/Functional tests Balance/Special Test Scores Oswestry Neck Score: 10 Improvement % Improvement: 50
== END 2025-05-19 19:00 | disposition home or self-care (01) ==
LOC: PT 11:30
PROVIDERS: PCP Family Medicine; Referring Provider Orthopaedic Surgery Orthopaedic Surgery of the Spine; Visit Provider Orthopaedic Surgery Orthopaedic Surgery of the Spine
DX: M50.30 Other cervical disc degeneration, unspecified cervical region (principal)
CPT/HCPCS: 97035; 97110; 97140; 97162

== ENCOUNTER 2025-05-29 18:07 | Inpatient (IN) | payer MEDICARE, SELFPAY ==
[2025-05-29] VITALS (39 sets, daily range): BP systolic 64–115; BP diastolic 40–75; PULSE 43–99; RESP 12–37; TEMP 32.6–37.5; O2SAT 87–100; BMI 23.8
[2025-05-29] MEDS: NORMAL SALINE 999 ML IV (18:20)
--- NOTE | 2025-05-29 18:23 | EDS_ITS ---
HPI History of Present Illness Chief Complaint: Weakness Informant: patient and family Narrative Narrative: Presents private vehicle with sister increasing weakness. Lightheaded symptoms. Denies cough denies recent vomiting diarrhea. Denies urinary symptoms. On presentation blood pressure in the 60s. Patient history of atrial fibrillation on Eliquis. History of hypertension on medications. She denies taking any extra doses of medications. States recently saw cardiology her Eliquis was decreased from 5-2.5. Denies any black or bloody stools. She has been told of anemia in the past and has had previous transfusion when asked. Unclear of any congestive heart failure. Her sister states she met with her to have dinner. Per patient was feeling fine throughout the day sudden symptoms while they were eating. After evaluation depression no echocardiogram 2 months ago EF normal. [facility] Medical History Postoperative hematoma Dehydration Dizziness Intractable pain UTI (urinary tract infection) Wears hearing aid Arthritis Restless legs Shortness of breath on exertion On amiodarone therapy Wears dentures Post-menopausal Depression Anxiety Rheumatoid arthritis History of hiatal hernia Gastric reflux Non-smoker CPAP (continuous positive airway pressure) dependence Sleep apnea History of pain when walking History of echocardiogram History of stress test Hypertension Cardiology follow-up encounter History of atrial fibrillation History of cardioversion CLARISSE (obstructive sleep apnea) Mixed hyperlipidemia [facility] current use of 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 drug Pulmonary hypertension Chronic cholecystitis with calculus Paroxysmal atrial fibrillation Essential (primary) hypertension Esophageal hiatal hernia 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, left [facility] current use of anticoagulant Atrial flutter GERD (gastroesophageal reflux disease) Home Medications ?Medication ?Instructions ?Recorded ?Last Taken ?Type sertraline 100 mg tablet 100 mg PO QHS sleep 12/14/20 03/11/25 History apixaban 5 mg tablet (Eliquis) 5 mg PO BID blood thinn er #180 tabs 04/07/24 03/11/25 Rx cholecalciferol (vitamin D3) 50 50 mcg PO DAILY vitami n 07/19/24 03/11/25 History mcg (2,000 unit) capsule pantoprazole 40 mg tablet,delayed 40 mg PO DAILY reflu x #90 tabs 08/19/24 03/11/25 Rx release magnesium oxide 400 mg PO DAILY SUPPLEMENT 0 03/12/25 03/11/25 History oxycodone 5 mg tablet 2.5 - 5 mg PO QHS pain 03/1203/11/25 History diltiazem HCl 30 mg tablet 30 mg PO Q8 30 days #90 tab s 03/13/25 Unknown Rx metoprolol tartrate 25 mg tablet 25 mg PO BID 30 days #60 tabs 03/13/25 Unknown Rx Allergy/AdvReac Type Severity Reaction Status Date / Time No Known Allergies Allergy Verified 03/22/25 14:44 Family History Mother Hypertension Arthritis Heart disease Father Cancer Brother Cancer Son CVA (cerebral vascular accident) Diabetes Brother TIA (transient ischemic attack) Sister Cancer kidney cancer Thyroid disorder Surgical History Status post right knee replacement Hx of cystoscopy History of arthroscopy of right knee History of cardiac catheterization History of open heart surgery History of cholecystectomy History of atrial septal defect repair History of appendectomy Status post laparoscopic Himanshu fundoplication (~11/2018) History of hysterectomy Social History Smoking Status: Never smoker alcohol intake: never substance use type: does not use caffeine: Yes Type: coffee Number of servings: 1 what type of physical activity do you participate in: walking frequency: daily duration: 30-45 minutes/day seatbelt use: always do you feel safe at home: Yes ROS ROS ED Constitutional Constitutional ED: Denies fever(s) Cardiovascular Cardiovascular: Reports other Details: Lightheaded ; Denies chest pain Respiratory/Chest Respiratory/Chest: Denies cough Gastrointestinal Gastrointestinal: Denies abdominal pain, diarrhea or vomiting Musculoskeletal Musculoskeletal: Denies none Integumentary Denies rash or wounds Neurologic Neurologic: Reports weakness EXAM Physical Exam Const Vital Signs: 05/29/25 18:08 05/29/25 18:18 05/29/25 18:19 Temperature 97.7 F L 97.2 F L Temperature Source Temporal Temporal Pulse Rate 67 63 Respiratory Rate 16 17 Respiratory Pattern Normal Blood Pressure 67/47 L 65/45 L Blood Pressure Mean 53 51 Pulse Ox 95 92 Oxygen Delivery Method Room Air Room Air Oxygen Flow Rate (L/min) 05/29/25 18:20 05/29/25 18:27 05/29/25 18:29 Temperature Temperature Source Pulse Rate 44 L 56 L Respiratory Rate 22 H 23 H Respiratory Pattern Blood Pressure 64/52 L Blood Pressure Mean 56 Pulse Ox 99 95 91 Oxygen Delivery Method Room Air Room Air Oxygen Flow Rate (L/min) 05/29/25 18:30 05/29/25 18:33 05/29/25 18:35 Temperature Temperature Source Pulse Rate 52 L 53 L 65 Respiratory Rate 29 H 22 H 18 Respiratory Pattern Blood Pressure 71/48 L 69/55 L 69/55 L Blood Pressure Mean 55 59 62 Pulse Ox 87 98 Oxygen Delivery Method Room Air Oxygen Flow Rate (L/min) 05/29/25 18:40 05/29/25 18:40 05/29/25 18:43 Temperature Temperature Source Pulse Rate 54 L 58 L 58 L Respiratory Rate 24 H 23 H 19 H Respiratory Pattern Blood Pressure 71/51 L 71/51 L 69/48 L Blood Pressure Mean 57 60 57 Pulse Ox 97 100 99 Oxygen Delivery Method Nasal Cannula Oxygen Flow Rate (L/min) 2 05/29/25 18:45 05/29/25 18:50 05/29/25 18:55 Temperature Temperature Source Pulse Rate 48 L 58 L 56 L Respiratory Rate 17 23 H 24 H Respiratory Pattern Blood Pressure 76/63 L 75/51 L 73/54 L Blood Pressure Mean 69 60 61 Pulse Ox 100 Oxygen Delivery Method Oxygen Flow Rate (L/min) 05/29/25 19:00 05/29/25 19:03 05/29/25 19:05 Temperature Temperature Source Pulse Rate 57 L 58 L 59 L Respiratory Rate 37 H 30 H 21 H Respiratory Pattern Blood Pressure 73/59 L 73/59 L 75/55 L Blood Pressure Mean 66 63 63 Pulse Ox 100 100 Oxygen Delivery Method Nasal Cannula Oxygen Flow Rate (L/min) 2 05/29/25 19:10 05/29/25 19:12 05/29/25 19:15 Temperature 97.7 F L Temperature Source Oral Pulse Rate 51 L 60 43 L Respiratory Rate 14 26 H 12 Respiratory Pattern Blood Pressure 77/48 L 72/43 L 65/45 L Blood Pressure Mean 58 52 53 Pulse Ox 100 97 100 Oxygen Delivery Method Nasal Cannula Oxygen Flow Rate (L/min) 2 05/29/25 19:18 05/29/25 19:21 05/29/25 19:23 Temperature Temperature Source Pulse Rate 56 L 60 79 Respiratory Rate 14 18 Respiratory Pattern Blood Pressure 72/43 L 80/53 L 83/61 L Blood Pressure Mean 54 62 68 Pulse Ox 96 Oxygen Delivery Method Oxygen Flow Rate (L/min) 05/29/25 19:24 05/29/25 19:27 05/29/25 19:30 Temperature Temperature Source Pulse Rate 81 77 79 Respiratory Rate 17 19 H 22 H Respiratory Pattern Blood Pressure 89/67 L 83/61 L 94/63 Blood Pressure Mean 76 70 74 Pulse Ox 97 98 Oxygen Delivery Method Oxygen Flow Rate (L/min) 05/29/25 19:33 05/29/25 19:40 05/29/25 19:42 Temperature Temperature Source Pulse Rate 74 72 80 Respiratory Rate 23 H 23 H 17 Respiratory Pattern Blood Pressure 83/58 L 84/51 L 84/56 L Blood Pressure Mean 67 63 65 Pulse Ox 96 94 Oxygen Delivery Method Oxygen Flow Rate (L/min) 05/29/25 19:45 05/29/25 19:51 05/29/25 19:53 Temperature 90.7 F L 92.5 F L Temperature Source Core Core Pulse Rate 77 82 84 Respiratory Rate 21 H 34 H Respiratory Pattern Blood Pressure 82/53 L 75/58 L 75/58 L Blood Pressure Mean 62 65 63 Pulse Ox 98 91 Oxygen Delivery Method Oxygen Flow Rate (L/min) 05/29/25 20:00 05/29/25 20:00 05/29/25 20:10 Temperature 95.7 F L 95.6 F L 96.6 F L Temperature Source Core Core Core Pulse Rate 89 84 96 Respiratory Rate 30 H 24 H 24 H Respiratory Pattern Blood Pressure 89/40 L 102/53 L 94/64 Blood Pressure Mean 56 69 74 Pulse Ox 95 99 94 Oxygen Delivery Method Nasal Cannula Nasal Cannula Oxygen Flow Rate (L/min) 2 2 05/29/25 20:25 05/29/25 20:40 05/29/25 20:55 Temperature 97.1 F L 97.3 F L 97.9 F Temperature Source Core Core Core Pulse Rate 96 99 98 Respiratory Rate 18 20 H 26 H Respiratory Pattern Blood Pressure 115/47 L 91/54 L 97/67 Blood Pressure Mean 69 66 77 Pulse Ox 94 89 94 Oxygen Delivery Method Nasal Cannula Nasal Cannula Nasal Cannula Oxygen Flow Rate (L/min) 2 2 2 05/29/25 21:08 Temperature 98.0 F Temperature Source Core Pulse Rate 99 Respiratory Rate 24 H Respiratory Pattern Blood Pressure 108/71 Blood Pressure Mean 83 Pulse Ox 92 Oxygen Delivery Method Nasal Cannula Oxygen Flow Rate (L/min) 2 Positive well nourished and well developed General Appearance ED: well developed and NAD HEENT Reports moist mucous membranes normocephalic and atraumatic Eyes General Eye ED: Yes pale conjunctiva Neck full ROM Chest Wall Chest: Negative for tenderness Resp normal respiratory effort and normal air movement Effort and Inspection: symmetric chest movement; Negative for respiratory distress Cardio no murmurs Rate: bradycardia Rhythm: abnormal rhythm Peripheral Pulses: pulses 2+ throughout GI normal to inspection, nondistended, normoactive bowel sounds and non-tender Palpation: Negative for guarding or rebound tenderness present Extremity normal to inspection General Extremety ED: Negative for edema or tenderness General Extremity: Negative for edema Neuro oriented x3 and no sensory deficits noted Sensorium / Orientation: awake and alert Skin no rashes or lesions noted and no wounds Sepsis Attestation Sepsis Alert: Yes Sepsis Attestation: Sepsis Ruled Out (No clinical symptoms with other reasons for hypotension.) MDM MDM MDM Narrative Medical decision making narrative: Interventions / MDM: Differential diagnosis: Symptomatic bradycardia, transient hypotension, paroxysmal atrial fibrillation, weakness, acute kidney injury Diagnosis considered but do not suspect: Sepsis however no clinical symptoms of upper respiratory or urinary symptoms. My EKG interpretation: EKG at 1821: Atrial flutter with variable AV block rate of [address] changes. Repeat EKG at 2037: Sinus rhythm rate of 99, no ST changes. Imaging independently reviewed and interpreted by myself: 1 view chest x-ray: Increased interstitial markings, no consolidations. External documents reviewed: Reviewing records March of this year had bradycardia concerns for type II block cardiology was involved recommend admission her metoprolol decreased to 25 mg twice daily her diltiazem went down to 30 mg every 8 hours from 180 mg. Her echocardiogram was normal in the hospital. She was discharged potential outpatient evaluation for cardioversion. She was not hypotensive at that time. Test considered but not ordered:N/A ED course: Patient pressures in the 60s heart rate in the 40s sepsis protocol and labs were ordered. However she does not report any infectious symptoms she has pale conjunctiva. I did type and screen. 30 cc/kg normal same bolus ord ered. Patient has bradycardia hypotension she was ordered for 1 mg atropine. 1854: Fluids were given. Nursing heart rate still in the 40s blood pressure systolic 70s additional atropine ordered. 1907: With patient's bradycardia and hypotension I did speak with on-call precision lathe operator Dr. Contreras discussed her history and march admission. Recommends holding her calcium and beta-blockers. He states if not responsive can start a dopamine drip. Normal EF with her blood pressure can give additional fluids. Additional liter of fluids was ordered. 1942: Dopamine drip started at 5 mg/kg/min, per nursing just started. Heart rate in the 70s and 80s blood pressure systolic 83. Labs normal hemoglobin 12.2. Creatinine 1.43 up from 0.6 previously. She denies any recent vomiting or diarrhea. X-ray increased interstitial markings concerning edema versus atypical viral infection per radiology. Patient with no cough symptoms for concerns for pneumonia. Lactic acid returned 2.8 fluids were given likely from her hypotension. 1999: Apparently patient became hypothermic in the ED. Maikol hugger placed. Sampson catheter with temperature probe placed. 2029: Heart rate in the 90s appears sinus rhythm on the monitor blood pressure systolic 106. Will repeat EKG. Son is currently present she sees Dr. More from [facility] electrophysiology for the past year. She saw him on Saturday. Paperwork from discharge from the visit notes she was decreased on Eliquis however back up on her diltiazem to 180 mg once a day along with placed on metoprolol 50 mg once a day. Combination of AURELIA and her higher doses of medications may have contributed to her bradycardia. Core temperature 97.1 in the room. 2042: EKG is back in normal sinus rhythm. Heart rate in the 90s. Blood pressure systolic 88 in the room currently. Urine negative for infection cultures are pending. At this time concerns for bradycardia induced symptoms likely caused by her AURELIA. Dopamine drip will be stopped at this time we will monitor. Fluids given for blood pressure. Will reevaluate and plan to admit. 2119: Patient off the dopamine drip she is off the Maikol hugger heart rate in the 90s blood pressure 108 systolic. Clinically feeling better. Does complain of her chronic neck issues. I discussed with hospitalist Dr. Castañeda discussed her history findings recent medical changes then increases by her electr ophysiologist. We will admit her to PCU. Re-evaluation: stable Disposition discussed with patient/family/significant other: Patient Case discussed with consulting clinician: Cardiology, hospitalist This note was generated with [employer] dictation software. It may contain incorrect words, spelling, and punctuation that were not noted in checking the note before signing. Lab Data Attestation: I reviewed the patient's lab results. Labs: Laboratory Results - last 24 hr 05/29/25 05/29/25 05/29/25 18:15 18:25 19:56 WBC 7.6 RBC 4.34 Hgb 12.2 Hct 38.2 MCV 88.0 MCH 28.1 MCHC 31.9 L RDW Std Deviation 48.8 H RDW Coeff of Reij 15.1 H Plt Count 181 MPV 11.6 Immature Gran % (Auto) 0.400 Neut % (Auto) 61.1 Lymph % (Auto) 27.1 [place] % (Auto) 9.4 Eos % (Auto) 1.2 Baso % (Auto) 0.8 Absolute Neuts (auto) 4.6 Absolute Lymphs (auto) 2.05 Nucleated RBC % 0 PT 16.3 H INR 1.3 APTT 31.7 Sodium 139 Potassium 4.2 Chloride 103 Carbon Dioxide 22.8 Anion Gap 13 BUN 32 H Creatinine 1.43 H Estim Creat Clear Calc 24.46 L Est GFR (MDRD) Non-Af 37 L BUN/Creatinine Ratio 22.4 H Glucose 211 H Lactic Acid 2.8 H* Calcium 9.4 Total Bilirubin 0.46 AST 30 ALT 16 Alkaline Phosphatase 130 H Total Protein 6.9 Albumin 4.1 Globulin 2.8 Albumin/Globulin Ratio 1.4 Urine Color Yellow Urine Clarity Sl. Cloudy Urine pH 5.0 Ur Specific [place] 1.020 Urine Protein 100 H Urine Glucose (UA) Normal Urine Ketones 5 H Urine Occult Blood 10 H Urine Nitrite Negative Urine Bilirubin 1 H Urine Urobilinogen 1 H Ur Leukocyte Esterase 100 H Urine RBC 0-5 SEEN Urine WBC 0-5 SEEN Ur Squamous Epith Cells 0-5 SEEN Ur Transition Epith Cell 0-5 SEEN Calcium Oxalate Crystal 1+ Urine Bacteria 2+ Hyaline Casts 50-100 SEEN Urine Mucus 1+ Blood Type O POSITIVE Antibody Screen NEGATIVE Radiography Diagnostic Testing: Clinical Impression(s) from Imaging Studies Chest X-Ray 05/29/25 18:45 IMPRESSION: 1. Increased interstitial markings, which may represent pulmonary edema or atypical/viral infection 2. Opacity at the aortopulmonary window, in keeping with known enlargement of the pulmonary artery in this location, appears intervally enlarged compared to most recent radiographs on 07/19/2024. Reading Location: [facility] Critical Care Time Critical Care Time: Yes Critical care time (excluding procedures): 30-74 minutes, Discussing w/Patient &/or Family/Licensed Retail Supervisor, Discussing w/Consultants, Arranging Admission or Transf er, Performing Direct Patient Care at Bedside and - (45 minutes) Discharge Plan Triage Chief Complaint: Weakness ED Provider: Fadi Krueger Dx/Rx/DC Orders Clinical Impression: Symptomatic bradycardia, Hypotension, Atrial flutter, paroxysmal, Acute kidney injury, Weakness, Hypothermia Prescriptions: No Action sertraline 100 mg tablet 100 mg PO QHS cholecalciferol (vitamin D3) 50 mcg (2,000 unit) capsule 50 mcg PO DAILY magnesium oxide 400 mg magnesium tablet 400 mg PO DAILY oxycodone 5 mg tablet 2.5 - 5 mg PO QHS Patient Comments: PT TAKES NEEDED. diltiazem HCl 30 mg Tablet 30 mg PO Q8 30 Days Qty: 90 0RF metoprolol tartrate 25 mg Tablet 25 mg PO BID 30 Days Qty: 60 0RF Eliquis 5 mg tablet 5 mg PO BID Qty: 180 3RF pantoprazole 40 mg tablet,delayed release (DR/EC) 40 mg PO DAILY Qty: 90 3RF Primary Care Provider: Jame De La Garza Referrals: Jame De La Garza MD [Primary Care Provider] - Print Language: Kazakh Disposition Disposition: Acute Care Hospital [facility]
[2025-05-29 18:45] LABS: Hematocrit 38.2 % (37-47); Hemoglobin 12.2 g/dL (12.0-15.0); Immature Granulocytes Count 0.030 X10^3/uL (0.0-0.0); Mean Corp Hgb Conc 31.9 g/dL (32-36); Mean Corpuscular Volume 88.0 fL (81-99); Mean Platelet Vol. 11.6 fl (6.2-12.0); NRBC Flagged by Analyzer 0 % (0-5); Platelet Count 181 K/mm3 (150-450); RBC Distribution Width CV 15.1 % (11.6-14.6); RBC Distribution Width SD 48.8 fl (35.1-43.9); Red Blood Count 4.34 M/mm3 (4.2-5.4); White Blood Count 7.6 K/mm3 (4.4-11.0)
--- NOTE | 2025-05-29 18:45 | RAD_ITS ---
PROCEDURE: CHEST 1 VIEW (PORTABLE) 05/29/2025 REASON FOR EXAM: HYPOTENSION TECHNIQUE: Frontal view of the chest. COMPARISON: Chest radiograph on 07/19/2024 and 07/06/2022, CT thoracic spine on 07/19/2024 FINDINGS: Hardware: None Cardiomediastinal silhouette: Increased prominence of rounded density at the aortiopulmonary window compared to most recent radiographs on 07/19/2024. Tortuous thoracic aorta with atherosclerosis remains unchanged. Lungs: Increased prominence of the interstitial markings. No significant pleural effusion. Bones: Degenerative changes of the shoulders and spine. RAD/Chest 1 View (Portable) IMPRESSION: 1. Increased interstitial markings, which may represent pulmonary edema or aty pical/viral infection 2. Opacity at the aortopulmonary window, in keeping with known enlargement of the pulmonary artery in this location, appears intervally enlarged compared to most recent radiographs on 07/19/2024. Reading Location: [facility]
--- OUTSIDE RECORDS SUMMARY | 2025-05-29 18:53 | XMS RPT_ITS | CCD ---
Author Organization [facility] CliniSynj Care Team Providers Care Necktie Stitcher Name Role Phone Donna RN, Lauryn Solorzano Unavailable Unavailable Donna RN, Lauryn Solorzano Unavailable Unavailable Jack Duran MD Unavailable Irene, RN, Michelle Campos Unavailable Pete Bonilla RN, Michelle Campos Unavailable Unavailgerardo Thompson RN, Lauryn Solorzano Unavailable Unavailable Donna MARAVILLA, Lauryn Solorzano Unavailable Unavailable Jack Duarn MD Unavailable Rip De La Garza MD Primary Care Provider Dr. Rip De La Garza Primary Care Provider Dr. Rip De La Garza Referring Provider [phone] Tj ADAMS, RIPSAW OPERATOR-C Radha Attending Provider CONCETTA Leyva Attending Provider Dr. Jack Duran Attending Provider [phone] Christopher Devine Attending Provider [phone] Rip De La Garza Primary Care Provider Dr. Rip De La Garza Referring Provider [phone] CONCETTA Leyva Attending Provider Dr. Jack Duran Attending Provider [phone] Christopher Devine Attending Provider [phone] Dr. Rip De La Garza Primary Care Provider Dr. Rip De La Garza Referring Provider [phone] Dr. Rip De La Garza Primary Care Provider [phone] Rip De La Garza Referring Provider [phone] CONCETTA Rivero Attending Provider Kadeem ADAMS, RIPSAW OPERATOR-C Rosario Attending Provider [phone] Frederic GLOVER, Rip Solorzano Primary Care Provider Shine GLOVER, Regi Unavailable HAILE GONZALEZ Admitting Unavailabl e HAILE GONZALEZ Attending Unavailabl e BRODERICK, RIP Referring Unavailable DE LA GARZA, RIP A Primary Care Unavailable Frederic GLOVER, Rip A Unavailable Rito PT, Pratima Unavailable Frederic GLOVER, Dr. Kilgore Primary Care Provider Jose Manuel GLOVER, Abdulaziz Attending Provider Jose Manuel GLOVER, Abdulaziz Referring Provider [phone] Frederic GLOVER, Dr. Kilgore Attending Provider [phone] Frederic GLOVER, Dr. Kilgore Referring Provider Frederic GLOVER, Dr. Kilgore Primary Care Provider [facility] DO, Dr. Nice Emergency Provider Brayden GLOVER, Dr. Cruz Admit Provider Unavailable Brayden GLOVER, Dr. Cruz Attending Provider Unavailjeanine Martin MD, Dr. Mathew Other Provider Brayden GLOVER, Dr. Cruz Other Provider Unavailable Veronica GLOVER, Dr. Mathew Attending Provider Jyoti GLOVER, Dr. Ray Attending Provider Dr. Anthony Owen MD Referring Provider Unavailjeanine Martinez MD, Dr. Zambrano Attending Provider Dr. Juan Manuel Martinez MD Referring Provider De La Garza, Rip Primary Care Unavailable Cory Montes Attending Unavailable De La Garza, Rip Primary Care Unavailable Radha Rodriguez Attending Unavailable De La Garza, Rip Referring Unavailable Radha Rodriguez Attending Unavailable De La Garza, Rip Referring Unavailable De La Garza, Rip Primary Care Unavailable Quincy Martin Consulting Unavailable De La Garza, Rip Primary Care Unavailable Anthony Owen Attending Unavailable Anthony Owen Admitting Unavailable Anthony Owen Consulting Unavailable De La Garza, Rip Attending Unavailable De La Garza, Rip Referring Unavailable De La Garza, Rip Primary Care Unavailable De La Garza, Rip Primary Care Unavailable Radha Rodriguez Attending Unavailable Radha Rodriguez Referring Unavailable Abdulaziz Banegas Referring Unavailable Abdulaziz Banegas Attending Unavailable De La Garza, Rip Primary Care Unavailable De La Garza, Rip Primary Care Unavailable De La Garza, Rip Attending Unavailable De La Garza, Rip Referring Unavailable De La Garza, Rip Primary Care Unavailable De La Garza, Rip Attending Unavailable Jaimeam, Mady Cristel Admitting Unavailable Koram, Mady Cristel Consulting Unavailable De La Garza, Rip Primary Care Unavailable Yahir Thrasher Attending Unavailable Yahir Thrasher Consulting Unavailable Quincy Martin Attending Unavailable Jaimeam, Mady Cristel Attending Unavailable De La Garza, Rip Primary Care Unavailable Anthony Owen Referring Unavailable Cory Montes Attending Unavailable De La Garza, Rip Primary Care Unavailable Cory Montes Attending Unavailable De La Garza, Rip Primary Care Unavailable Tj RIPSAW OPERATOR, Radha Attending Unavailable Juan Manuel Martinez Referring Unavailable Juan Manuel Martinez Attending Unavailable De La Garza, Rip Primary Care Unavailable De La Garza, Rip Primary Care Unavailable De La Garza, Rip Attending Unavailable De La Garza, Rip Primary Care Unavailable Rip Buenrostro Attending Unavailable Quincy Martin Consulting Unavailable De La Garza, Rip Primary Care Unavailable Anthony Owen Attending Unavailable Anthony Owen Admitting Unavailable Koram, Mady Cristel Consulting Unavailable Koram, Mady Cristel Admitting Unavailable De La Garza, Rip Primary Care Unavailable Yahir Thrasher Attending Unavailable De La Garza, Rip Attending Unavailable De La Garza, Rip Referring Unavailable De La Garza, Rip Primary Care Unavailable Juan Manuel Martinez Attending Unavailable De La Garza, Rip Primary Care Unavailable De La Garza, Rip Referring Unavailable De La Garza, Rip A Primary Care Provider VINITA THAKUR Attending Unavailable RADHA RODRIGUEZ Referring Unavailable DE LA GARZA, RIP Primary Care Unavailable VINITA THAKUR Attending Unavailable DE LA GARZA, RIP Primary Care Unavailable Medications Current Medications Medication Drug Class(es) Dates Sig (Normalized) Sig (Original) acetaminophen 325 mg / HYDROcodone bitartrate 5 mg oral tablet (20 sources) Opioid Agonist Start: 07-21-2024 End: 08-18-2024 take 1 tablet by mouth every six hours as needed HYDROcodone-aceta minophen (Grimes) 5-325 MG tablet Take 1 tablet by mouth every 6 hours as needed. 07/22/2024 Active Start: 12-08-2018 End: 12-11-2018 Hydrocodone-Acetaminophen 1 TABLET tablet Discontinued 1 {tbl} PO EVERY 6 HOURS NEEDED as needed for Pain 8 3 0 December 08, 2018 1:00am December 10, 2018 1:00am December 11, 2018 1:07am Postoperative pain Other acute postprocedural pain Start: 12-08-2018 End: 12-11-2018 take 1 tablet by mouth every six hours as needed Hydrocodone-Acetaminophen Discontinued 1 TABLET PO EVERY 6 HOURS NEEDED 8 3 December 08, 2018 1:00am December 11, 2018 1:07am Start: 09-30-2017 End: 03-10-2018 Hydrocodone-Acetaminophen 1 TABLET tablet Discontinued 1 - 2 {tbl} PO EVERY 4 HOURS NEEDED as needed for Pain 12 0 September 30, 2017 1:00am March 10, 2018 10:21am Start: 09-30-2017 End: 03-10-2018 take 1 tablet by mouth every four hours as needed Hydrocodone-Acetaminophen Discontinued 1 - 2 TABLET PO EVERY 4 HOURS NEEDED September 30, 2017 1:00am March 10, 2018 10:21am apixaban 2.5 mg oral tablet (20 sources) Factor Xa Inhibitor Start: 05-25-2025 take 1 tablet by mouth twice daily apixaban (Eliquis) 2.5 MG tablet Take 1 tablet (2.5 mg) by mouth 2 times daily. 180 tablet 3 05/25/2025 Active Start: 07-17-2024 End: 05-25-2025 take 1 tablet by mouth twice daily apixaban (Eliquis) 5 MG tablet Take 5 mg by mouth twice a day. 07/17/2024 05/25/2025 Discontinued Start: 07-30-2022 End: 04-07-2024 take 1 tablet by mouth twice daily Apixaban (Eliquis) 5 mg tablet Discontinued 5 mg PO TWICE A DAY 180 November 18, 2023 10:15am April 07, 2024 3:55pm Start: 12-02-2017 End: 06-29-2022 take 1 tablet by mouth twice daily Apixaban 5 mg tablet Discontinued 5 mg PO TWICE A DAY 60 October 16, 2021 2:29pm June 29, 2022 5:03pm afib Start: 04-14-2016 End: 11-18-2017 take 1 tablet by mouth twice daily Apixaban 5 MG tablet Discontinued 5 mg PO TWICE A DAY 180 November 14, 2017 8:44am November 18, 2017 1:53pm take 5 mg by mouth once daily ap ixaban (ELIQUIS ORAL) Take 5 mg by mouth once daily. 0 Active Comment on above: Take 5 mg by mouth o nce daily. calcium carbonate 600 mg / cholecalciferol 125 unt oral tablet (3 sources) Vitamin D Start: 09-17-2022 take 1 tablet by mouth once daily Calcium Carbonate-Vitamin D3 Active 1 TABLET PO DAILY September 17, 2022 12:00am Start: 09-17-2022 take 1 tablet by avani th once daily Calcium Carbonate-Vitamin D3 (Calcium 600 + D(3)) 600-125 mg-unit Tablet Active 1 TABLET PO DAILY September 17, 2022 12:00am Calcium Carbonate / vitamin D3 (3 sources) Start: 09-17-2022 take 1 tablet by mouth once daily Calcium Carbonate-Vitamin D3 Active 1 TABLET PO DAILY September 17, 2022 12:00am Start: 09-17-2022 take 1 tablet by avani th once daily Calcium Carbonate-Vitamin D3 Active 1 TABLET PO DAILY September 17, 2022 1:00am cholecalciferol 0.05 mg oral capsule (20 sources) Vitamin D Start: 07-19-2024 take 1 capsule by mouth once daily Cholecalciferol (Vitamin D3) 50 mcg (2,000 unit) capsule Active 50 ug PO DAILY July 19, 2024 12:00am vitamin Start: 07-15-2024 take 1 tablet by avani th once daily cholecalciferol (Vitamin D-3) 50 MCG (2000 UT) tablet Take 2,000 Units by mouth daily. 07/15/2024 Active End: 05-01-2022 take 1 tablet by mouth once daily cholecalciferol (VITAMIN D) 1,000 unit tab tablet Take 1,000 Units by mouth once daily. 0 05/01/2022 Discontinued Comment on above: Take 1,000 Units by mouth once daily. ciprofloxacin 500 mg oral tablet (2 sources) Quinolone Antimicrobial Start: 08-01-20 take 1 tablet by mouth twice daily Ciprofloxacin Hcl (Cipro) 500 mg tablet Active 500 MG PO TWICE A DAY August 01, 2022 12:00am 1 ml denosumab 60 mg/ml prefilled syringe (20 sources) RANK Ligand Inhibitor Start: 07-15-20 24 denosumab (PROLIA) 60 mg/mL syrg Inject 60 mg subcutaneously once every 6 months. Patient should start on July 15, 2024. 07/15/2024 Active Start: 12-14-2020 End: 07-19-2024 denosumab (Prolia) 60 MG/ML solution prefilled syringe Inject 60 mg under the skin every 6 months. 07/15/2024 Active inject 60 mg by subc utaneous injection twice daily denosumab (PROLIA) 60 mg/mL syrg Inject 60 mg subcutaneously one time only. Twice daily Active Comment on above: Inject 60 mg subcuta neously one time only. Twice daily 24 hr dilTIAZem hydrochloride 180 mg extended release oral capsule (20 sources) Calcium Channel Kelly Start: 05-06-20 End: 05-25-20 take 1 tablet by mouth twice daily dilTIAZem (Cardizem) 60 MG immediate release tablet Take 60 mg by mouth 2 times daily. 05/06/2025 05/25/2025 Discontinued Start: 03-13-2025 take 1 tablet by avani every eight hours Diltiazem Hcl 30 mg Tablet Active 30 mg PO EVERY 8 HOURS 90 30 0 March 13, 2025 12:00am Start: 01-05-2025 End: 05-25-2026 take 1 capsule by mouth once daily dilTIAZem CD (Cardizem CD) 180 MG 24 hr capsule Take 1 capsule (180 mg) by mouth daily. 90 capsule 3 05/25/2025 05/25/2026 Active Start: 04-14-2016 End: 03-12-2025 take 1 capsule by mouth once daily Diltiazem Hcl 120 mg capsule,extended release 24hr Discontinued 120 mg PO DAILY 90 3 October 05, 2024 1:34pm March 12, 2025 9:54am BLOOD PRESSURE AND HEART take 1 tablet by avani four times daily diltiazem (CARDIZEM) 120 mg tablet Take 120 mg by mouth four times daily. Active Comment on above: Take 120 mg by mouth four times daily. DULoxetine 20 mg delayed release oral capsule (1 source) Serotonin and Norepinephrine Reuptake Inhibitor Start: take 1 capsule by mouth once daily DULoxetine (Cymbalta) [address] capsule Take 20 mg by mouth daily. 05/06/2025 Active indapamide 1.25 mg oral tablet (5 sources) Thiazide-like Diuretic Start: take 0.625 mg by mouth once daily indapamide (Lozol) 1.25 MG tablet Take 0.625 mg by mouth daily. 05/06/2025 Active Start: 08-18-2024 End: 09-15-2024 take 1 mg by mouth once daily Indapamide 1.25 mg table t Discontinued mg PO daily August 18, 2024 1:37pm September 15, 2024 2:06pm magnesium oxide 400 mg oral tablet (20 sources) Start: 07-15-2024 take 1 tablet by mouth once daily Magnesium Oxide 400 mg magnesium tablet Active 400 mg PO DAILY March 12, 2025 12:00am SUPPLEMENT Start: 09-29-2018 End: 04-03-2019 take 1 tablet by mouth once daily Magnesium Oxide 400 mg magnesium tablet Discontinued 400 mg PO DAILY September 29, 2018 1:00am April 03, 2019 2:08pm supplement Start: 04-14-2016 End: 09-29-2018 take 1 tablet by mouth twice daily Magnesium Oxide 400 mg tablet Discontinued 400 mg PO TWICE A DAY 180 3 May 26, 2018 2:18pm September 29, 2018 5:43pm 24 hr metoprolol succinate 50 mg extended release oral tablet (20 sources) beta-Adrenergic Kelly Start: 05-25-2025 End: 05-25-2026 take 1 tablet by mouth once daily in the evening metoprolol succinate XL (Toprol-XL) 50 MG 24 hr tablet Take 1 tablet (50 mg) by mouth every evening. Do not crush or chew. 30 tablet 11 05/25/2025 05/25/2026 Active Start: 03-13-2025 take 1 tablet by avani th twice daily Metoprolol Tartrate 25 mg Tablet Active 25 mg PO TWICE A DAY 60 30 0 March 13, 2025 12:00am Start: 03-02-2024 End: 05-25-2025 take 1 tablet by mouth twice daily metoprolol tartrate (Lopressor) 50 MG tablet Take 50 mg by mouth twice a day. 07/15/2024 05/25/2025 Discontinued Start: 12-18-2023 End: 03-02-2024 take 1 tablet by mouth twice daily Metoprolol Tartrate 25 mg tablet Discontinued 25 mg PO TWICE A DAY 180 3 December 18, 2023 4:23pm March 02, 2024 2:22pm oxyCODONE hydrochloride 5 mg oral tablet (7 sources) Opioid Agonist Start: 03-12-2025 take 2.5-5 mg by mouth at bedtime Oxycodone 5 mg tablet Active 2.5 - 5 mg PO AT BEDTIME March 12, 2025 12:00am pain Start: 10-02-2022 End: 12-18-2023 take 5-10 mg by mouth every four hours as needed for pain Oxycodone 5 mg Tablet Discontinued 5 - 10 mg PO EVERY 4 HOURS NEEDED as needed for Pain Score 4-10 1 7 0 October 02, 2022 December 18, 2023 3:57pm Status post total right knee replacement not using cement Presence of right artificial knee joint rivaroxaban 20 mg oral tablet (5 sources) Factor Xa Inhibitor Start: 06-29-2022 take 1 tablet by mouth once daily at dinner Rivaroxaban (Xarelto) 20 mg tablet Active 20 MG PO DAILY June 29, 2022 12:00am must administer with evening meal sertraline 100 mg oral tablet (20 sources) Serotonin Reuptake Inhibitor Start: 12-14-2020 take 1 tablet by mouth at bedtime Sertraline 100 mg tablet Active 100 mg PO AT BEDTIME December 14, 2020 1:00am sleep Start: 12-31-2018 End: 12-14-2020 take 2 tablets by mouth at bedtime Sertraline 50 mg tablet Discontinued 100 mg PO AT BEDTIME December 31, 2018 8:49am December 14, 2020 11:30am DEPRESSION Start: 12-31-2018 End: 12-14-2020 take 100 mg by mouth at bedtime Sertraline Discontinue d 100 MG PO AT BEDTIME December 31, 2018 8:49am December 14, 2020 11:30am Start: 09-02-2015 End: 12-31-2018 take 1 tablet by mouth at bedtime Sertraline 50 MG tablet Discontinued 50 mg PO AT BEDTIME September 02, 2015 12:00am December 31, 2018 8:50am DEPRESSION Comment on above: Take 100 mg by mouth once daily. Completed/Discontinued Medications Medication Drug Class(es) Dates Sig (Normalized) Sig (Original) acetaminophen 500 mg oral tablet (20 sources) Start: 10-02-2022 End: 2025 take 2 tablets by mouth every eight hours as needed for pain Acetaminophen 500 mg tablet Discontinued 1000 mg PO EVERY 8 HOURS as needed for Pain December 20, 2023 2:47pm 2025 2:46pm Start: 10-02-2022 End: 12-20-2023 take 1000 mg by mouth every eight hours Acetaminophen Active 1000 MG PO EVERY 8 HOURS December 20, 2023 2:47pm acetaminophen 325 mg / oxyCODONE hydrochloride 5 mg oral tablet (20 sources) Opioid Agonist Start: 01-16-2020 End: 01-19-2020 Oxycodone-Acetaminophen 1 TABLET tablet Discontinued 1 {tbl} PO EVERY 6 HOURS NEEDED as needed for Pain 12 3 0 January 16, 2020 January 18, 2020 12:00am January 19, 2020 12:08am Knee pain Pain in unspecified knee Start: 01-16-2020 End: 01-19-2020 take 1 tablet by mouth every six hours as needed Oxycodone-Acetaminophen Discontinued 1 TABLET PO EVERY 6 HOURS NEEDED 12 3 January 16, 2020 January 19, 2020 12:08am amiodarone hydrochloride 200 mg oral tablet (20 sources) Antiarrhythmic Start: 05-17-2022 End: 05-17-2022 Amiodarone 200 mg tablet Discontinued 100 mg PO DAILY 90 3 May 17, 2022 9:11am May 17, 2022 4:38pm heart Start: 05-17-2022 End: 05-17-2022 take 100 mg by mouth once daily Amiodarone Discontinue d 100 MG PO DAILY 90 May 17, 2022 9:11am May 17, 2022 4:38pm Start: 04-19-2016 End: 07-16-2024 take 1 tablet by mouth once daily Amiodarone 200 mg tablet Discontinued 200 mg PO DAILY 90 3 November 16, 2021 9:33am May 17, 2022 9:12am heart Start: 04-14-2016 End: 09-30-2017 take 1 tablet by mouth twice daily Amiodarone 200 MG tablet Discontinued 200 mg PO TWICE A DAY 60 0 April 14, 2016 12:00am September 30, 2017 2:53pm Comment on above: Take by mouth once d aily. ascorbic acid 500 mg oral tablet (20 sources) Vitamin C Start: 08-21-2021 End: 12-20-2023 take 1 tablet by mouth twice daily Ascorbic Acid (Vitamin C) (Vitamin C) 500 mg Tablet Discontinued 500 mg PO TWICE A DAY August 21, 2021 12:00am December 20, 2023 2:49pm Start: 08-21-2021 End: 07-19-2024 take 1 tablet by mouth once daily Ascorbic Acid (Vitamin C) (Vitamin C) 500 mg tablet Discontinued 500 mg PO DAILY December 20, 2023 2:48pm July 19, 2024 1:36pm Start: 08-12-2019 End: 06-08-2020 Ascorbic Acid (Vitamin C) 50 0 mg capsule Discontinued mg PO 0 August 12, 2019 12:00am June 08, 2020 11:16am Start: 08-12-2019 End: 06-08-2020 Ascorbic Acid (Vitamin C) Discontinued MG PO August 12, 2019 12:00am June 08, 2020 11:16am [facility] daily ascorbic acid (Vitamin C) 500 MG tablet Take 500 mg by mouth daily. Active Comment on above: Take 500 mg by mouth once daily. calcium carbonate 1500 mg oral tablet (20 sources) Start: 12-31-2018 End: 06-08-2020 take 1 tablet by mouth twice daily Calcium Carbonate (Calcium 600) 600 mg calcium (1,500 mg) tablet Discontinued 600 mg PO TWICE A DAY December 31, 2018 1:00am June 08, 2020 11:15am Calcium Carbonate / Vitamin D (16 sources) Start: 09-15-2015 take 2 tablets by mouth once daily CALTRATE 600+D 600-400 MG-UNIT TABS Two tablets by mouth daily CALCIUM CARBONATE-VITAMIN D [id number] Jack Duran MD Start: 09-15-2015 End: 05-01-2016 take 2 tablets by mouth once daily CALTRATE 600+D 600-400 MG-UNIT TABS Two tablets by mouth daily CALCIUM CARBONATE-VITAMIN D [id number] Adrianna Box PA-C Start: 09-15-2015 take 2 tablets by mo [facility] once daily CALTRATE 600+D 600-400 MG-UNIT TABS Two tablets by mouth daily CALCIUM CARBONATE-VITAMIN D Jack Duran MD Start: 09-15-2015 End: 05-01-2016 take 2 tablets by mouth once daily CALTRATE 600+D 600-400 MG-UNIT TABS Two tablets by mouth daily CALCIUM CARBONATE-VITAMIN D Adrianna Box PA-C Calcium Carbonate-Vitamin D3 600-125 mg-unit Tablet (2 sources) Start: 09-17-2022 End: 07-19-2024 Calcium Carbonate-Vitamin D3 600-125 mg-unit Tablet Discontinued 1 {tbl} PO DAILY September 17, 2022 1:00am July 19, 2024 1:36pm calcium citrate 1040 mg oral tablet (3 sources) End: 05-01-2022 take 1 tablet by mouth twice daily Calcium Citrate 250 mg calcium tab Take 1 tablet by mouth twice daily. 0 05/01/2022 Discontinued Comment on above: Take 1 tablet by avani th twice daily. cephalexin 500 mg oral capsule (14 sources) Cephalosporin Antibacterial Start: 07-21-2024 End: 08-18-2024 take 1 capsule by mouth three times daily Cephalexin 500 mg capsule Discontinued 500 mg PO THREE TIMES A DAY 15 0 July 21, 2024 12:00am August 18, 2024 1:36pm start on 07/22/24 docusate sodium 100 mg oral capsule (20 sources) Start: 01-16-2020 End: 06-08-2020 take 1 capsule by mouth once daily Docusate Sodium 100 MG capsule Discontinued 100 mg PO DAILY 20 January 16, 2020 1:00am June 08, 2020 11:16am Start: 09-30-2017 End: 03-10-2018 take 1 capsule by mouth once daily Docusate Sodium 100 MG capsule Discontinued 100 mg PO DAILY 20 September 30, 2017 1:00am March 10, 2018 10:21am ergocalciferol 1.25 mg oral capsule (20 sources) Provitamin D2 Compound Start: 12-01-2018 End: 04-03-2019 Ergocalciferol (Vitamin D2) 50,000 UNIT capsule Discontinued 08703 U PO EVERY WEEK December 01, 2018 1:00am April 03, 2019 2:06pm supplement Start: 09-15-2015 End: 05-01-2016 take 1 tablet by mouth once daily VITAMIN D (ERGOCALCIFEROL) 54738 UNIT CAPS One tablet by mouth daily ERGOCALCIFEROL [id number] Jack Duran MD Start: 09-15-2015 End: 05-01-2016 take 1 tablet by mouth once daily VITAMIN D (ERGOCALCIFEROL) 85174 UNIT CAPS One tablet by mouth daily ERGOCALCIFEROL [id number] Jack Duran MD Fluad Quad (65yr up)(PF) 60 mcg (15 mcg x 4)/0.5mL IM syringe (flu vac (4 sources) Start: 08-03-2021 End: 08-03-2021 Fluad Quad (65yr up)(PF) 60 mcg (15 mcg x 4)/0.5mL IM syringe (flu vac Discontinued 60 MCG IM ONCE 0.5 August 03, 2021 9:21am August 03, 2021 10:13am gabapentin 100 mg oral capsule (20 sources) Anti-epileptic Agent Start: 12-31-2018 End: 08-12-2019 Gabapentin 100 mg capsule Discontinued 0 PO TWICE A DAY December 31, 2018 1:00am August 12, 2019 11:18am 1-3 capsules PO BID in addition to HS gabapentin; Start: 08-25-2018 End: 08-12-2019 take 1 capsule by mouth at bedtime Gabapentin 300 mg capsule Discontinued 300 mg PO AT BEDTIME August 25, 2018 12:00am August 12, 2019 11:18am restless legs hydroCHLOROthiazide 25 mg / triamterene 37.5 mg oral tablet (20 sources) Potassium-sparing Diuretic, Thiazide Diuretic Start: 09-02-2015 End: 05-01-2016 Triamterene-Hydrochlorothiaz id 1 EACH tablet Discontinued 1 {tbl} PO DAILY September 02, 2015 12:00am April 14, 2016 4:10pm Start: 09-02-2015 End: 04-14-2016 take 1 tablet by mouth once daily Triamterene-Hydrochlorothiazid Discontin ued 1 TABLET PO DAILY September 02, 2015 12:00am April 14, 2016 4:10pm Ipratropium (3 sources) Anticholinergic End: 05-01-2022 IPRATROPIUM BROMIDE NASAL Us e in the nose every 6 hours as needed. 0 05/01/2022 Discontinued IPRATROPIUM BROM ANDREEA NASAL Use in the nose every 6 hours as needed. 0 Active Comment on above: Use in the nose ever y 6 hours as needed. levomefolate (20 sources) Start: 08-25-2018 End: 12-31-2018 take 1 tablet by mouth once daily Levomefolate Calcium (L-Methylfolate) 15 mg tablet Discontinued 15 MG PO DAILY August 25, 2018 9:58am December 31, 2018 8:50am Start: 08-25-2018 End: 12-31-2018 take 1 tablet by mouth once daily Levomefolate Calcium (L-Methylfolate) 15 mg tablet Discontinued 15 mg PO DAILY August 25, 2018 12:00am December 31, 2018 8:50am Start: 08-25-2018 End: 12-31-2018 take 1 tablet by mouth once daily Levomefolate Calcium (L-Methylfolate) 15 mg tablet Discontinued 15 MG PO DAILY August 24, 2018 11:00pm December 31, 2018 7:50am Start: 08-25-2018 End: 12-31-2018 take 1 tablet by mouth once daily Levomefolate Calcium (L-Methylfolate) 15 mg tablet Discontinued 15 MG PO DAILY August 25, 2018 12:00am December 31, 2018 8:50am Magnesium (3 sources) Start: 12-18-2023 End: 03-12-2025 Magnesium 200 mg tablet Disc ontinued 100 mg PO DAILY December 18, 2023 1:00am March 12, 2025 9:55am Start: 12-18-2023 Magnesium 200 mg tablet Active 100 mg PO DAILY December 18, 2023 1:00am Start: 12-18-2023 take 400 mg by mouth twice wyatt ly Magnesium Active 400 MG PO TWICE A DAY December 18, 2023 1:00am Juthljiji-Axigroi-Lzjlj Acid (MAGNEBIND 400) 400-200-1 mg tab (1 source) Magnesium-Calciu m-Folic Acid (MAGNEBIND 400) 400-200-1 mg tab Take by mouth. 0 Active Comment on above: Take by mouth. Benksgoem-Rsojgev-Xizes Acid (MAGNEBIND 400,WITH FOLIC ACID,) 400-200-1 mg tab (2 sources) End: 05-01-20 Tveqytxzb-Ruuhrsv-Fxpft Acid (MAGNEBIND 400,WITH FOLIC ACID,) 400-200-1 mg tab Take by mouth. 0 05/01/2022 Discontinued Magnesium-Calciu m-Folic Acid (MAGNEBIND 400,WITH FOLIC ACID,) 400-200-1 mg tab Take by mouth. 0 Active Comment on above: Take by mouth. menthol 0.0044 mg/mg / zinc oxide 0.206 mg/mg topical ointment (2 sources) Start: 08-18-2024 End: 03-12-2025 Menthol-Zinc Oxide (Calmoseptine) 0.44-20.6 % ointment Discontinued TOPICAL August 18, 2024 12:00am March 12, 2025 9:57am multivit with calcium,iron,min (WOMEN'S MULTIPLE VITAMINS ORAL) (3 sources) End: 05-01-2022 take 1 tablet by mouth once daily multivit with calcium,iron,min (WOMEN'S MULTIPLE VITAMINS ORAL) Take 1 tablet by mouth once daily. 0 05/01/2022 Discontinued take 1 tablet by mouth once palmira y multivit with calcium,iron,min (WOMEN'S MULTIPLE VITAMINS ORAL) Take 1 tablet by mouth once daily. 0 Active Comment on above: Take 1 tablet by avani once daily. nitrofurantoin, macrocrystals 25 mg / nitrofurantoin, monohydrate 75 mg oral capsule (20 sources) Nitrofuran Antibacterial Start: 017 End: 018 take 1 capsule by mouth every twelve hours Nitrofurantoin Monohyd/M-Cryst 100 MG capsule Discontinued 100 mg PO EVERY 12 HOURS 14 0 September 30, 2017 1:00am March 10, 2018 10:20am ondansetron 4 mg disintegrating oral tablet (20 sources) Serotonin-3 Receptor Antagonist Start: 023 End: 024 take 1 tablet by mouth every eight hours as needed for nausea Ondansetron 4 mg tablet,disintegrating Discontinued 4 mg PO EVERY 8 HOURS NEEDED as needed for Nausea 20 October 12, 2023 1:00am December 18, 2023 3:57pm Start: 01-16-2020 End: 06-08-2020 take 1 tablet by mouth every eight hours as needed for nausea Ondansetron 4 MG tablet Discontinued 4 mg PO EVERY 8 HOURS NEEDED as needed for Nausea January 16, 2020 1:00am June 08, 2020 11:16am pantoprazole 40 mg delayed release oral tablet (20 sources) Proton Pump Inhibitor Start: 09-07-2015 End: 08-19-2024 take 1 tablet by mouth once daily Pantoprazole 40 mg tablet,delayed release (DR/EC) Discontinued 40 mg PO DAILY December 14, 2020 1:00am August 19, 2024 4:27pm Start: 09-02-2015 End: 12-31-2018 take 2 tablets by mouth once daily Pantoprazole 20 MG tablet Discontinued 40 mg PO DAILY September 02, 2015 12:00am December 31, 2018 8:50am gerd Start: 09-02-2015 End: 12-31-2018 take 40 mg by mouth once daily Pantoprazole Discontinu ed 40 MG PO DAILY September 02, 2015 12:00am December 31, 2018 8:50am Comment on above: Take 40 mg by mouth once daily. phenazopyridine hydrochloride 100 mg oral tablet (20 sources) Start: 09-11-20 End: 12-14-19 take 2 tablets by mouth three times daily Phenazopyridine 100 MG tablet Discontinued 200 mg PO THREE TIMES A DAY September 11, 2020 12:00am December 14, 2020 11:32am Start: 09-11-2020 End: 12-14-2020 take 200 mg by mouth three times daily Phenazopyridine Discontinued 200 MG PO THREE TIMES A DAY September 11, 2020 12:00am December 14, 2020 11:32am Pomegranate Fruit Extract (20 sources) Start: 04-03-2019 End: 08-12-2019 take 250 mg by mouth once daily Pomegranate Fruit Extract Discontinued 250 MG PO DAILY April 03, 2019 2:08pm August 12, 2019 11:19am Start: 04-03-2019 End: 08-12-2019 take 1 capsule by mouth once daily Pomegranate Fruit Extract 250 mg capsule Discontinued 250 mg PO DAILY 0 April 03, 2019 12:00am August 12, 2019 11:19am Start: 04-03-2019 End: 08-12-2019 take 1 capsule by mouth once daily Pomegranate Fruit Extract 250 mg capsule Discontinued 250 mg PO DAILY April 03, 2019 12:00am August 12, 2019 11:19am Start: 04-03-2019 End: 08-12-2019 take 250 mg by mouth once daily Pomegranate Fruit Extr act Discontinued 250 MG PO DAILY April 02, 2019 11:00pm August 12, 2019 10:19am Start: 04-03-2019 End: 08-12-2019 take 250 mg by mouth once daily Pomegranate Fruit Extr act Discontinued 250 MG PO DAILY April 03, 2019 12:00am August 12, 2019 11:19am POMEGRANATE FRUIT EXTRACT (3 sources) Start: 04-03-2019 End: 05-01-2022 take 1 capsule by mouth once daily pomegranate fruit extract 250 mg cap Take 250 mg by mouth once daily. 0 04/03/2019 05/01/2022 Discontinued Start: 04-03-2019 take 1 capsule by mo [facility] once daily pomegranate fruit extract 250 mg cap Take 250 mg by mouth once daily. 0 04/03/2019 Active Comment on above: Take 250 mg by mouth once daily. potassium chloride 20 meq extended release oral tablet (20 sources) Start: 09-09-2018 End: 09-09-2018 take 1 tablet by mouth once daily Potassium Chloride 20 mEq tablet extended release Discontinued 20 meq PO DAILY 30 0 September 09, 2018 12:00am September 09, 2018 12:25pm potassium gluconate 2.5 meq oral tablet (3 sources) End: 05-01-2022 take 1 tablet by mouth once daily Potassium 99 mg tab Take 1 tablet by mouth once daily. 0 05/01/2022 Discontinued Comment on above: Take 1 tablet by [facility] once daily. Prenat.Vits,Chilango,Min- Iron-Folic (18 sources) Start: 12-31-2018 End: 12-14-2020 take 1 tablet by mouth once daily Prenat.Vits,Chilango,Min-Ir on-Folic Discontinued 1 TABLET PO DAILY December 31, 2018 8:49am December 14, 2020 11:32am Start: 12-31-2018 End: 12-14-2020 take 1 tablet by mouth once daily Prenat.Vits,Chilango,Ofj-Upmi-Ekhfz Discontin ued 1 TABLET PO DAILY December 31, 2018 12:00am December 14, 2020 10:32am Start: 12-31-2018 End: 12-14-2020 take 1 tablet by mouth once daily Prenat.Vits,Chilango,Dsi-Zqbk-Bwmvu Discontin ued 1 TABLET PO DAILY December 31, 2018 1:00am December 14, 2020 11:32am Prenat.Vits,Chilango,Nhu-Qjya-Bof ic tablet (2 sources) Start: 12-31-2018 End: 12-14-2020 Prenat.Vits,Chilango,Uvh-Gwuz-Oxj ic tablet Discontinued 1 {tbl} PO DAILY December 31, 2018 1:00am December 14, 2020 11:32am 28 mg iron- 800 mcg tab (3 sources) Start: 03-23-2019 End: 05-01-2022 take 1 tablet by mouth once daily 28 mg iron- 800 mcg tab Take 1 tablet by mouth once daily. 3 03/23/2019 05/01/2022 Discontinued Start: 03-23-2019 take 1 tablet by avani th once daily 28 mg iron- 800 mcg tab Take 1 tablet by mouth once daily. 3 03/23/2019 Active Comment on above: Take 1 tablet by avani th once daily. propranolol hydrochloride 10 mg oral tablet (1 source) beta-Adrenergic Kelly End: take 1 tablet by mouth once daily propranolol (Inderal) 10 MG tablet Take 10 mg by mouth Nightly. 05/25/2025 Discontinued rOPINIRole 1 mg oral tablet (20 sources) Nonergot Dopamine Agonist Start: End: take 1 tablet by mouth at bedtime Ropinirole 1 mg tablet Discontinued 1 mg PO AT BEDTIME August 12, 2019 12:00am December 30, 2019 10:39am sulfamethoxazole 800 mg / trimethoprim 160 mg oral tablet (20 sources) Dihydrofolate Reductase Inhibitor Antibacterial, Sulfonamide Antimicrobial Start: End: Sulfamethoxazole-Tr imethoprim 1 EACH tablet Discontinued 1 NMA PO TWICE A DAY September 11, 2020 12:00am December 14, 2020 11:32am Start: 09-11-2020 End: 12-14-2020 Sulfamethoxazole-Trimethopri m Discontinued 1 EACH PO TWICE A DAY September 11, 2020 12:00am December 14, 2020 11:32am tiZANidine 4 mg oral tablet (1 source) Central alpha-2 Adrenergic Agonist Start: 03-12-2025 End: 2025 take 1 tablet by mouth every eight hours as needed Tizanidine 4 mg tablet Discontinued 4 mg PO Q8H as needed for muscle spasticity March 12, 2025 12:00am 2025 2:46pm traMADol hydrochloride 50 mg oral tablet (2 sources) Opioid Agonist Start: 07-19-2024 End: 08-18-2024 take 1 tablet by mouth every four hours as needed Tramadol 50 mg tablet Discontinued 50 mg PO EVERY 4 HOURS NEEDED July 19, 2024 12:00am August 18, 2024 1:36pm pain valACYclovir 500 mg oral tablet (3 sources) Herpesvirus Nucleoside Analog DNA Polymerase Inhibitor, Herpes Simplex Virus Nucleoside Analog DNA Polymerase Inhibitor, Herpes Zoster Virus Nucleoside Analog DNA Polymerase Inhibitor End: 05-01-2022 valACYclovir (VALTREX) 500 mg tablet Take 500 mg by mouth as needed. 0 05/01/2022 Discontinued Comment on above: Take 500 mg by mouth as needed. warfarin sodium 4 mg oral tablet (20 sources) Vitamin K Antagonist Start: 11-18-2017 End: 12-02-2017 take 1 tablet by mouth once daily Warfarin 4 mg tablet Discontinued 4 mg PO daily 30 November 18, 2017 1:00am December 02, 2017 12:10pm Please contact the information source for Protocol details. Problems Active Problems Problem Classification Problem Date Documented Da te Episodic/Chronic Abdominal hernia (20 sources) Hiatal hernia; Translations: [Diaphragmatic hernia without obstruction or gangrene] 12-08-2018 Episodic Anxiety disorders (20 sources) Anxiety; Translations: [Anxiety disorder, unspecified] Onset: 4 07-08-2024 Chronic Biliary tract disease (20 sources) Chronic cholecystitis with calculus; Translations: [Calculus of gallbladder with chronic cholecystitis without obstruction] 10-01-2019 Episodic Cardiac and circulatory congenital anomalies (20 sources) Left atrial abnormality; Translations: [Congenital heart disease] Onset: 4 09-07-2015 Chronic Cardiac and circulatory congenital anomalies (1 source) Personal history of (corrected) congenital malformations of heart and circulatory system; Translations: [Personal history of (corrected) congenital malformations of heart and circulatory system] Onset: Episodic Cardiac dysrhythmias (20 sources) Atrial flutter; Translations: [Unspecified atrial flutter] Onset: 6 04-19-2016 Chronic Comment on above: DCCV in April 2016; Cataract (20 sources) Bilateral pseudophakia; Translations: [Presence of intraocular lens] Onset: 8 Resolved: 9 04-28-2019 Chronic Coagulation and hemorrhagic disorders (1 source) Thrombocytopenia, unspecified; Translations: [Thrombocytopenia, unspecified] Onset: 4 Chronic Coma; stupor; and brain damage (20 sources) Daytime somnolence; Translations: [Somnolence] Onset: 5 09-15-2015 Episodic Complications of surgical procedures or medical care (9 sources) Postoperative hemorrhage; Translations: [Postoperative hemorrhage from incision] Episodic Conditions associated with dizziness or vertigo (2 sources) Dizziness; Translations: [Dizziness and giddiness] 07-29-2024 Episodic Conduction disorders (3 sources) Second degree atrioventricular block; Translations: [Atrioventricular block, second degree] Onset: 5 03-21-2025 Chronic Disorders of lipid metabolism (20 sources) Mixed hyperlipidemia; Translations: [Mixed hyperlipidemia] Onset: 4 Chronic Esophageal disorders (20 sources) Gastroesophageal reflux disease; Translations: [Gastro-esophageal reflux disease without esophagitis] 12-08-2018 Chronic Essential hypertension (20 sources) Hypertensive disorder; Translations: [Essential hypertension] Onset: 6 08-02-2016 Chronic Fluid and electrolyte disorders (4 sources) Dehydration; Translations: [Dehydration] 07-29-2024 Episodic Heart valve disorders (16 sources) Mitral valve regurgitation; Translations: [Nonrheumatic mitral (valve) insufficiency] 05-17-2022 Chronic Inflammation; infection of eye (except that caused by tuberculosis or sexually transmitteddisease) (20 sources) Bilateral punctate keratitis of eyes; Translations: [Punctate keratitis, bilateral] Onset: 8 05-13-2018 Chronic Intracranial injury (20 sources) Hematoma; Translations: [Epidural hematoma] Onset: 4 07-08-2024 Episodic Malaise and fatigue (20 sources) Fatigue; Translations: [Other fatigue] Onset: 5 Episodic Mood disorders (20 sources) Depressive disorder; Translations: [Depression] Onset: 4 07-09-2024 Chronic Nausea and vomiting (3 sources) Nausea; Translations: [Nausea] Onset: 5 03-12-2025 Episodic Other aftercare (20 sources) Long-term current use of anticoagulant; Translations: [care home (current) use of 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] 12-08-2018 Episodic Other aftercare (20 sources) Drug therapy finding; Translations: [Other watermelon inspector (current) drug therapy] 10-09-2021 Episodic Other aftercare (20 sources) Long-term current use of drug therapy; Translations: [Other watermelon inspector (current) drug therapy] 04-02-2019 Episodic Other aftercare (1 source) superintendent container terminal (current) use of 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; Translations: [care home (current) use of 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] Onset: 5 Episodic Other and ill-defined heart disease (20 sources) Left atrial enlargement; Translations: [Cardiomegaly] 12-08-2018 Chronic Comment on above: Interatrial septal r epair Other and ill-defined heart disease (1 source) Other ill-defined heart diseases; Translations: [Other ill-defined heart diseases] Onset: 4 Chronic Other circulatory disease (20 sources) Low blood pressure; Translations: [Hypotension, unspecified] 10-01-2019 Episodic Other connective tissue disease (6 sources) History of total knee arthroplasty; Translations: [Presence of right artificial knee joint] 10-02-2022 Chronic Other connective tissue disease (1 source) Presence of right artificial knee joint; Translations: [Knee joint replacement] Chronic Other gastrointestinal disorders (20 sources) H/O: abdominal hernia; Translations: [Personal history of other diseases of the digestive system] Onset: 4 07-09-2024 Episodic Other hereditary and degenerative nervous system conditions (1 source) Essential tremor; Translations: [Essential tremor] Chronic Other injuries and conditions due to external causes (2 sources) Other injury of unspecified body region, initial encounter; Translations: [Other injury of unspecified body region, initial encounter] Onset: 5 Episodic Other liver diseases (13 sources) Elevated liver enzymes level; Translations: [Abnormal levels of other serum enzymes] 07-13-2022 Episodic Other lower respiratory disease (20 sources) Dyspnea on exertion; Translations: [Dyspnea, unspecified] 12-31-2018 Episodic Other lower respiratory disease (2 sources) Other forms of dyspnea; Translations: [Other forms of dyspnea] Onset: 4 Episodic Other nervous system disorders (16 sources) Tremor; Translations: [Tremor, unspecified] 05-17-2022 Episodic Other nervous system disorders (8 sources) Tremor, unspecified; Translations: [Abnormal involuntary movements] Episodic Other nutritional; endocrine; and metabolic disorders (20 sources) Hypomagnesemia; Translations: [Hypomagnesemia] Onset: 4 07-09-2024 Chronic Other screening for suspected conditions (not mental disorders or infectious disease) (13 sources) Raised TSH level; Translations: [Other specified abnormal findings of blood chemistry] 07-13-2022 Episodic Pulmonary heart disease (20 sources) Pulmonary hypertension; Translations: [Pulmonary hypertension, unspecified] 10-01-2019 Chronic Comment on above: PASP 31 mmHg Pulmonary heart disease (20 sources) Dilatation of pulmonary artery; Translations: [Other diseases of pulmonary vessels] Onset: 5 09-07-2015 Episodic Residual codes; unclassified (20 sources) Obstructive sleep apnea syndrome; Translations: [Obstructive sleep apnea (adult) (pediatric)] Onset: 4 10-01-2019 Chronic Comment on above: AHI 11.92 Residual codes; unclassified (20 sources) Hypoxia; Translations: [Idiopathic sleep related nonobstructive alveolar hypoventilation] 04-30-2019 Chronic Residual codes; unclassified (11 sources) Obstructive sleep apnea (adult) (pediatric); Translations: [Obstructive sleep apnea (adult)(pediatric)] Onset: Chronic Residual codes; unclassified (10 sources) History of repair of atrial septal defect; Translations: [Personal history of (corrected) congenital malformations of heart and circulatory system] Onset: 6 08-02-2016 Episodic Residual codes; unclassified (2 sources) Pain; Translations: [Pain, unspecified] 07-29-2024 Episodic Residual codes; unclassified (2 sources) Other specified postprocedural states; Translations: [History of laminectomy] 03-23-2025 Episodic Rheumatoid arthritis and related disease (20 sources) Rheumatoid arthritis of multiple joints; Translations: [Rheumatoid arthritis, unspecified] Onset: 4 07-09-2024 Chronic Spinal cord injury (2 sources) Spinal epidural hematoma; Translations: [Unspecified site of spinal cord injury without evidence of spinal bone injury] 07-16-2024 Chronic Spondylosis; intervertebral disc disorders; other back problems (3 sources) Degeneration of cervical intervertebral disc; Translations: [Other cervical disc degeneration, mid-cervical region, unspecified level] Onset: 5 03-23-2025 Chronic Spondylosis; intervertebral disc disorders; other back problems (20 sources) Pain in cervical spine; Translations: [Cervicalgia] Onset: 4 07-09-2024 Episodic Unclassified (3 sources) Long-term drug therapy; Translations: [Other half-way (current) drug therapy] Onset: 6 04-19-2016 Unclassified (1 source) Finding of body mass index; Translations: [Body mass index (BMI) 25.0-25.9, adult] Onset: 5 10-26-2015 Unclassified (1 source) Hematoma, epidural (HCC); Translations: [Hematoma, epidural (HCC)] Onset: 4 Unclassified (2 sources) Degeneration of intervertebral disc of cervical region Unclassified (4 sources) M50.30 - Other cervical disc degeneration, unspecified cervical region Unclassified (2 sources) Longstanding persistent atrial fibrillation; Translations: [Longstanding persistent atrial fibrillation (HCC)] Onset: 4 Viral infection (20 sources) Disease caused by 2019-nCoV; Translations: [COVID-19] Episodic Past or Other Problems Problem Classification Problem Date Documented Da te Episodic/Chronic Nonspecific chest pain (20 sources) Atypical chest pain; Translations: [Chest discomfort] Onset: 09-07-2015 09-07-2015 Episodic Other aftercare (6 sources) Other watermelon inspector (current) drug therapy; Translations: [Other watermelon inspector (current) drug therapy] Onset: 04-19-2016 04-19-2016 Episodic Other eye disorders (20 sources) Vortex keratopathy of bilateral eyes; Translations: [Unspecified corneal deposit, bilateral] Onset: 05-13-2018 05-13-2018 Episodic Other gastrointestinal disorders (1 source) Diarrhea, unspecified; Translations: [Diarrhea, unspecified] Onset: 08-27-2024 Episodic Other nutritional; endocrine; and metabolic disorders (7 sources) Body mass index (BMI) 25.0-25.9, adult; Translations: [Body mass index (BMI) 25.0-25.9, adult] Onset: 10-26-2015 10-26-2015 Episodic Residual codes; unclassified (13 sources) Family history of stroke; Translations: [FH: Hypertension] 10-26-2015 Episodic Residual codes; unclassified (3 sources) FH: Hypertension; Translations: [Family history of ischemic heart disease and other diseases of the circulatory system] 09-15-2015 Episodic Residual codes; unclassified (1 source) Pain, unspecified; Translations: [Pain, unspecified] Onset: 07-22-2024 Episodic Syncope (6 sources) Syncope; Translations: [Syncope and collapse] Onset: 09-15-2024 12-18-2023 Episodic Urinary tract infections (4 sources) Urinary tract infectious disease; Translations: [Urinary tract infection, site not specified] Onset: 07-22-2024 07-29-2024 Episodic Results Test Name Value Interpretation Reference Range Facility 37on 05-25-2025 37 Stop the propanolol and the cardizem pills Restart the Diltiazem 180 mg daily in AM Restart Metoprolol (Toprol) 50 mg once a day in the evening Decrease the eliquis to 2.5 mg twice a day. You can take half of the 5mg pill twice a day until you run out and then fill the new script. Please check your Blood Pressure and Heart Rate 2-3 times a week and write it down and bring it to Dr Rodriguez appointment. Normal [facility] ECG 12 lead - CLINIC PERFORM EDon 05-25-2025 Probably Typical Atrial Flutter with a 2:1 VR [facility] Office Visiton 05-25-2025 Follow-up visit [id number] Ruben Lobo 1945 F Date Provider Department Center 05/25/2025 [id number] [facility] None No family history on file Level of Service:30514 DE OFFICE/OUTPATIENT ESTABLISHED MOD MDM 30 MIN Reason for Visit and Comments: Atrial Flutter [101] Other [0] - 1962 ASD closure Atrial Fibrillation [80] - Persisitent Hypertension [364335] Sleep Apnea [348] - Does not have C-PAP Normal [facility] Progress Noteon 05-25-2025 Progress Note ;;[facility] [place] Cardiology/Electroph ysiology Follow Up Clinic Note Chief Complaint: Chief Complaint Patient presents with Atrial Flutter Other 1963 ASD closure Atrial Fibrillation Persisitent Hypertension Sleep Apnea Does not have C-PAP History of Present Illness: Ruben Lobo is a 80 y.o. female referred here in Dec [address] Rodriguez for evaluation of her atrial tachyarrhythmias. She had an ASD closure in 1962. She was diagnosed with atrial fibrillation in 2017 and had a CVN by Dr. Duran. She reports that she followed with him for a while, and records show that at least in 2018 she was on amiodarone. She does not remember the drug and she was off of it as of 2021. It looks like she went back into atrial flutter by ECG in Oct 2023 and has been in it by ECGs (Jun 2024, Jul 2024, Aug 2024, and Sep 2024) and by a Holter monitor in Jan 2024 since then. In Jun 2024 she had a paraspinal hematoma with a neck injection for pain that required neurosurgical intervention. She was restarted on Eliquis soon after that. When I met her in December, she had no cardiac symptoms, other than some vague fatigue/weakness. We decided that rate control was appropriate, as the likelihood of maintaining sinus rhythm is fairly low given her age, her ASD repair, her large atria, and the fact that she has been in the arrhythmia for a year and a half. I increased her Cardizem to 180 mg daily and kept her on metoprolol 50 twice daily She presents today feeling at her baseline. She really cannot tell me when she may have gotten back into atrial flutter/fibrillation . She continues to report some weakness/fatigue, which is at her baseline. However, she presented to the [facility] ED in early March for weakness. She was discharged from the ED without seeing cardiology. The EKGs, which showed atrial flutter with a controlled/variable VR were read as second-degree AV block and her Cardizem and metoprolol were decreased. Subsequently, she saw her PCP who decreased her Cardizem to 60 mg twice a day and stopped the metoprolol and gave her propranolol 10 mg daily. She denies chest pain, shortness of breath/MUÑOZ, decrease in exercise tolerance, palpitation, dizziness, or syncope. Her who needed total care for parkinsonism recently was moved [place] [facility] facility. She does not exercise regularly, but can do all of her ADLs. The ECG from the [facility] ED in March showed a slow atrial flutter with a controlled VR in the 60 to 80 bpm. Another echo done in March 2025 showed a normal LVEF with minimal valvular disease. Her EKG today shows a slow, likely typical atrial flutter, though the atrial cycle is ~200 bpm, with a 2-1 VR at ~100 bpm. ECGs in Aug/Sep 2024 (which I reviewed) show both typical and reverse typical a flutter with 2-1 conduction and a VR of 105 beats a minute. A 48-hour Holter in Jan 2024 shows the same with an avg VR of 95 bpm. An echo in Aug 2024 shows a normal LVEF of 60% mildly enlarged LA and a normal RA, and mild TR, MR, and AI. Assessment and Plan: 1. Longstanding Persistent Atrial Flutter: It appears that she may have been in this rhythm since at least Oct 2023. She denies symptoms other than some fatigue that has started over the last few weeks and does not seem associated with her rhythm. When I met her in December, her HR was better controlled after Dr. Rodriguez increased the metoprolol to 50 twice daily. I do not believe that a cardioversion or ablation will help her feel any better. I think the likelihood of recurrence given her ASD surgery and longstanding arrhythmia are high. In December, and again today I told her and her son that rate control seems more appropriate in this case. The medications should not have been decreased in the ED. I will resume the 180 mg of Cardizem daily in the morning and restart 50 mgof Toprol in the evening. This should be enough to control her heart rate. I have asked her and her son to record her HR and BP for Dr. Rodriguez. She sees him in the next month. Today, I will also decrease her Eliquis to 2.5 twice a day as she is now 80 and weighs 53 kg. I will see her here on a as needed basis. 2. Hypertension: Seems well-controlled here today. I have asked her and her son to keep a log of her BPs and heart rate for Dr. Rodriguez. 3. Paraspinal hematoma: This occurred in the setting of a neck injection for pain. She has been cleared to resume Eliquis and has been taking it without incident. When I met her we briefly spoke about a Watchman procedure because she asked me if she could stop the Eliquis. If she has another bleeding episode it would be reasonable to consider that. Past Medical History: Medical History[1] Past Surgical History Surgical History[2] Family History Family History[3] Social History Social History[4] Medications: Reviewed Allergies: Reviewed Review of Systems: All other systems wer (more content not included)... [facility] (1)on 025 PT D/C Summary (1) [facility] [id number] [place] [address] / REHABILITATION SERVICES DISCHARGE SUMMARY MR#: [id number] Acct: [id number] Name: RUBEN LOBO Rep #: [id number] : 1945 80 From: Berny Freitas PT, Cert. T, OCS Referring Dr.: Dr. Juan Manuel Martinez MD Status: REG RCR Insurance: [employer] PPO SELF PAY INSURANCE Discharge Summary D/C summary: It has been my pleasure to treat RUBEN LOBO referred by Dr. Juan Manuel Martinez MD, with the diagnosis of CERVICAL DISC DEGENERATION for a total of 8 visit(s). Discharge Date: 05/19/25 Please see the following information for a summary of their discharge status. Subjective Subjective: Doing some better plan to see for A-FIB Able to sleep less medication Able to work in garden Pain Bilateral Neck: Pain Intensity (Out of 10): 2 Overall Improvement % Improvement: 50 Objective Objective/Function: OSTURE: mild thoracic kyphosis GAIT: reciprocal pattern PALAPTION: tender UT/levator/paraspina ls NEURO: denies paresthesia/tingling ,reflexes C5-6-7 1/3 CERVICAL ROM: flexion mod loss ,lateral flexion mod loss ,extension/mod severe loss , rotation mod loss BUE AROM: WFL MMT: grossly 4/5 ,shoulders 4-/5 Goals Goal 1:: Patient to be I with HEP for cervical Goal Progress: Goal Met Goal 2:: Patient to demonstrate 40% improvement with less pain and improved function Goal Progress: Goal Met Goal 3:: Patient to improve cervical ROM for function of recovery for driving Goal Progress: Goal Met Goal 4:: Patient to improve neck oswestry score by 5 points to improve QOL and function Goal Progress: Goal Met Plan Plan: D/C D/C Information Discharge Comments: HEP d/c sentence: If there are questions or concerns regarding this patient's physical therapy, please feel free to call me at [phone]. Thank you for the referral of this patient. Sincerely, Berny Freitas PT, Cert T, OCS Balance/Gait/Functio nal tests Balance/Special Test Scores Oswestry Neck Score: 10 Improvement % Improvement: 50 05/20/25 1302 CC: Dr. Juan Manuel Martinez MD; Dr. Rip De La Garza MD JLA Signed [facility] 3604-28-2025 36 Records received and given to [facility] 36on 04-27-2025 36 Records requested via fax [facility] 36 ----- Message from Ophelia Campos sent at 04/27/2025 1:31 PM EDT ----- She was admitted to [facility] 03-12-25 need Echo EKG and Card consult [facility] Inital Evaluation (1) - PTon 04-12-2025 Inital Evaluation (1) - PT [facility] Physical Therapy [facility] [address] [place] [address] [address] [place] [address] / REHABILITATION SERVICES INITIAL EVALUATION MR#: [id number] Acct: [id number] Name: RUBEN LOBO Rep #: [id number] : 1945 80 From: Samantha Mckeon PT. MD Verdugo, OCS Referring Dr.: Dr. Juan Manuel Martinez MD Status: REG RCR Insurance: [employer] PPO SELF PAY INSURANCE Patient's Visit Information Visit Information Visit Information: RUBEN LOBO is a 80 year old F referred to Physical Therapy by Dr. Juan Manuel Martinez MD with a diagnosis of CERVICAL DISC DEGENERATION. Date of Evaluation: 04/12/25 Physical Therapist: Berny Freitas PT, Samantha GLOVERT, OCS Visit Plan Frequency: 2x /Week Duration: 4 Weeks Plan: PT INTERVENTIONS MANUAL THERAPY ( STM/TRACTION CERVICAL) ,CERVICAL ROM ,POSTURAL EX'S ,STRENGTHENING AND MODALITIES Subjective Subjective: This 80 y/o female presents to physical therapy with cervical pain. Patient has had epidural injection neck thus had spinal hematoma. Patient had T1 -T6 laminectomy and [facility] Aug 08. Patient d/c to home on Aug after 3-4 days with fww and neck brace . Patient had to wear neck brace for [address] Martinez ,recommended PT and x-rays cervical DDD,. Dr Martinez want another MRI. Patient located cervical spine to base . Described as ache. Medication oxycodone. Patient aggravating standing/bending ,flexion ,turning and lifting . Alleviating factors rest. Denies paresthesia/tingling -. Denies dizziness/nausea/tin nitus. Patient has global ESTRADA. Pain pain affects sleeping. Patient condition affects QOL and function /ADL. Patient goals to decrease pain. SOCAIL: Pain Bilateral Neck: Pain Intensity (Out of 10): 7 Pain Intensity Range: 10 Objective Objective: POSTURE: mild thoracic kyphosis GAIT: reciprocal pattern PALAPTION: tender UT/levator/paraspina ls NEURO: denies paresthesia/tingling ,reflexes C5-6-7 1/3 CERVICAL ROM: flexion mod loss ,lateral flexion severe loss ,extension severe loss , rotation mod/severe loss BUE AROM: WFL MMT: grossly 4/5 ,shoulders 4-/5 Special Tests C/S Radiculapathy - Left Upper limb tension test: Negative C/S Radiculapathy - Right Upper limb tension test: Negative C/S Radiculapathy - Left Spurlings: Positive C/S Radiculapathy - Right Spurlings: Positive C/S Radiculapathy - Left Cervical distraction: Negative C/S Radiculapathy - Right Cervical distraction: Negative C/S Radiculapathy - Left Relief test: Negative C/S Radiculapathy - Right Relief test: Negative Sharp Miriam: Negative Vertebral Artery Test: Negative Alar Ligament Test: Negative Balance/Special Test Scores Oswestry Neck Score: 34 Goals Goal 1:: Patient to be I with HEP for cervical Goal Time Frame: 4-6 Weeks Goal 2:: Patient to demonstrate 40% improvement with less pain and improved function Goal Time Frame: 4-6 Weeks Goal 3:: Patient to improve cervical ROM for function of recovery for driving Goal Time Frame: 4-6 Weeks Goal 4:: Patient to improve neck oswestry score by 5 points to improve QOL and function Goal Time Frame: 4-6 Weeks Rehabilitation Potential Physical Therapy Diagnosis: Patient has h/o T1-6 laminectomy from hematoma Aug 09 with pain ,decrease ROM cervical ,tenderness throughout impairs ADLS and housework tasks thus benefit from s killed PT Rehabilitation Potential: Good Anticipated Interventions Patient/Client Instruction: Educate patient on: Condition and Plan of Care For the Purpose of:: To decrease pain, To increase ROM, To improve muscle performance and motor function, To improve ability to perform ADL's, To increase tolerance to activity/condition/p osition, To improve ability of physical actions for home/community/work/ leisure, To improve health of tissue, To decrease soft tissue restriction, To increase flexibility/ROM, To improve endurance and To assume or resume ADL's Therapeutic Exercise to Include: Strength training, Postural training, Flexibilty training, Active ROM and Scapular Strength/Stabilizati on For the Purpose of:: To decrease pain, To increase ROM, To improve muscle performance and motor function, To improve ability to perform ADL's, To increase tolerance to activity/condition/p osition, To improve ability of physical actions for home/community/work/ leisure, To improve health of tissue, To decrease soft tissue restriction, To increase flexibility/ROM and To improve tolerance to ADL's Manual Therapy Techniques to Include: Soft tissue mobilization Comment: CERVICAL TRACTION For the Purpose of:: To decrease pain, To increase ROM, To improve nutrient delivery to tissue, To increase oxygenation perfusion, To improve muscle performance and motor function, To improve health of tissue and To decrease soft tissue restriction TENS: Yes IF ES: Yes Cryotherapy (ice pack, ice mas (more content not included)... Normal [facility] Cerv Spine 4 or 5 Viewson Cerv Spine 4 or 5 Views [facility] Imaging Services [address] [address] Cerv Spine 4 or 5 Views MR#: [id number] Acct: [id number] Name: RUBEN LOBO Rep #: [id number] : 1945 F 80 From: Jv Boyer MD PCP: Dr. Rip De La Garza MD Status: DEP AMB Study: Cerv Spine 4 or 5 Views Date of Exam: 03/22/25 Exam# [id number] Ordering Dr: Nicole Gonzalez PROCEDURE: CERV SPINE 4 OR 5 VIEWS 2025 REASON FOR EXAM: PAIN TECHNIQUE: Four views of the cervical spine, with flexion and extension views COMPARISON: July 19, 2024 CT FINDINGS: Vertebral body height and alignment are maintained. There is no spondylolisthesis or significant instability demonstrated on flexion or extension views. There is mild loss of disc height from C4-7. Soft tissues are unremarkable. Mineralization is normal. Vascular calcifications are visible. RAD/Cerv Spine 4 or 5 Views IMPRESSION: There is no instability demonstrated. [facility] CC: CONCETTA Patrick; Dr. Rip De La Garza MD [employer] Supervisor: Signed Normal [facility] Orthopedic Visit Reporton Orthopedic Visit Report [facility] [address] [place] [address] [address] [place] [address] OFFICE VISIT Date of Service: 03/22/25 MR#: [id number] Acct: [id number] Name: RUBEN LOBO Rep #: [id number] : 1945 Provider: Dr. Juan Manuel Martinez MD Age/Sex: 80/F Location: [email or web address] Status: Signed Intake Vital Signs 09/15/24 13:01 03/12/25 10:28 03/22/25 14:41 Height 5 ft 5 ft 5 ft Weight: 113 lb 8 oz BMI 22.1 Intake Visit Reasons: CERVICAL/THORACIC SPINE Chief Complaint: Cervica and thoracic spine pain Accompanied by: Self Is patient in pain?: Yes Pain scale (1-10): 8 Allergies No Known Allergies Allergy (Verified 03/22/25 14:44) Medications ???Medication ???Instructions ???Recorded ???Confirmed ???Type sertraline 100 mg tablet 100 mg PO QHS sleep 12/14/2003/22 History apixaban 5 mg tablet (Eliquis) 5 mg PO BID blood thinner #180 tab s 04/07/24 03/22/25 Rx cholecalciferol (vitamin D3) 50 50 mcg PO DAILY vitamin 07/19/24 0 03/22/25 History mcg (2,000 unit) capsule pantoprazole 40 mg tablet,delayed 40 mg PO DAILY reflux #90 tabs 03/22/25 Rx release magnesium oxide 400 mg PO DAILY SUPPLEMENT 5 03/22/25 History oxycodone 5 mg tablet 2.5 - 5 mg PO QHS pain 03/12/25 History diltiazem HCl 30 mg tablet 30 mg PO Q8 30 days #90 tabs 03/1303/22/25 Rx metoprolol tartrate 25 mg tablet 25 mg PO BID 30 days #60 tabs 02/0203/22/25 Rx Have you fallen in the past year?: No PFSH Medical History Postoperative hematoma Dehydration Dizziness Intractable pain UTI (urinary tract infection) Wears hearing aid Arthritis Restless legs Shortness of breath on exertion On amiodarone therapy Wears dentures Post-menopausal Depression Anxiety Rheumatoid arthritis History of hiatal hernia Gastric reflux Non-smoker CPAP (continuous positive airway pressure) dependence Sleep apnea History of pain when walking History of echocardiogram History of stress test Hypertension Cardiology follow-up encounter History of atrial fibrillation History of cardioversion CLARISSE (obstructive sleep apnea) 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 Pulmonary hypertension Chronic cholecystitis with calculus Paroxysmal atrial fibrillation Essential (primary) hypertension Esophageal hiatal hernia 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, left care home current use of anticoagulant Atrial flutter GERD (gastroesophageal reflux disease) Surgical History Status post right knee replacement Hx of cystoscopy History of arthroscopy of right knee History of cardiac catheterization History of open heart surgery History of cholecystectomy History of atrial septal defect repair History of appendectomy Status post laparoscopic Diogenes fundoplication ( 11/2018) History of hysterectomy Family History Mother Hypertension Arthritis Heart disease [...] you feel safe at home: Yes HPI CERVICAL/THORACIC SPINE Details: This documentation accurately reflects the service provided and the decisions made by me, Dr. Juan Manuel Martinez MD 03/22/25 1441. Part of today???s visit was documented by Rodolfo Aldana MA, acting as scribe. RUBEN LOBO is a 80 year old F here today for cervical and thoracic spine pain. Patient is having pain in the back. The pain is achy and stabbing. The pain is mainly in the upper back behind the neck. The pain goes into both shoulder.This has been going on since June of 2024. She got a shot in the neck by Dr. Sanchez, and that's when her pain started. When he took the needle out he ruptured a blood clot. Patient got a surgery in the neck. The surgery was on 07/09/2024 at [facility] in [place]. The pain hurts worse when she walks.Patient did physical therapy at [facility]. They mainly massaged her neck and back which had helped a little bit.Patient denies any diabetes, but is on a blood thinner.Patient denies any smoking or drugs.Patient states she doesn't have much feeling in (more content not included)... Normal [facility] Thoracic Spine 2 Viewson Thoracic Spine 2 Views [facility] Imaging Services [address] [place] [address] Thoracic Spine 2 Views MR#: [id number] Acct: [id number] Name: RUBEN LOBO Rep #: [id number] : 1945 F 80 From: Isaac Hayward MD PCP: Dr. Rip De La Garza MD Status: DEP AMB Study: Thoracic Spine 2 Views Date of Exam: 03/22/25 Exam# [id number] Ordering Dr: Nicole Gonzalez PROCEDURE: THORACIC SPINE 2 VIEWS 2025 REASON FOR EXAM: PAIN TECHNIQUE: 2 view(s) of the thoracic spine. COMPARISON: Thoracic spine CT on 07/19/2024, thoracic spine MRI 01/26/2025 FINDINGS: Thoracic vertebral body heights and alignment are maintained. There is mild diffuse osteopenia. Vertebral body hemangiomas are better demonstrated on prior cross-sectional exams. Ctwf-xo-vogbfydp multilevel degenerative changes. Aortic atherosclerosis. Visualized lungs are clear. RAD/Thoracic Spine 2 Views IMPRESSION: 1. Qvmc-cy-zapiyqnp degenerative changes of the thoracic spine. 2. Diffuse osteopenia. Reading Location: [id number] CC: CONCETTA Patrick; Dr. Rip De La Garza MD [employer] Supervisor: Signed Normal [facility] Basic Metabolic Profile (BMP )on 03-15-2025 BUN Normal 4-19 [facility] Comment on above: Result Comment: Canc elled via OM: Order cancelled - Patient discharged Performed By: #### L 503.6005 #### [facility] [address] [place], [address] BUN/CRE Normal 10-20 [facility] Comment on above: Result Comment: Canc elled via OM: Order cancelled - Patient discharged Performed By: #### L 503.6005 #### [facility] [address] [place], [address] Calcium Normal 7.6-11.0 [facility] Comment on above: Result Comment: Canc elled via OM: Order cancelled - Patient discharged Performed By: #### L 503.6005 #### [facility] [address] [place], [address] CL Normal 98-108 [facility] Comment on above: Result Comment: Canc elled via OM: Order cancelled - Patient discharged Performed By: #### L 503.6005 #### [facility] [address] [place], [address] CO2 Normal 21.0-32.0 [facility] Comment on above: Result Comment: Canc elled via OM: Order cancelled - Patient discharged Performed By: #### L 503.6005 #### [facility] [address] [place], [address] CREAT,SERUM Normal 0.70-1.20 [facility] Comment on above: Result Comment: Canc elled via OM: Order cancelled - Patient discharged Performed By: #### L 503.6005 #### [facility] [address] [place], [address] eGFR Normal >60 [facility] Comment on above: Result Comment: Canc elled via OM: Order cancelled - Patient discharged Performed By: #### L 503.6005 #### [facility] [address] [place], [address] GAP Normal 5-15 [facility] Comment on above: Result Comment: Canc elled via OM: Order cancelled - Patient discharged Performed By: #### L 503.6005 #### [facility] [address] [place], [address] GLU Normal 70-99 [facility] Comment on above: Result Comment: Canc elled via OM: Order cancelled - Patient discharged Performed By: #### L 503.6005 #### [facility] [address] [place], [address] Potassium Normal 3.3-5.1 [facility] Comment on above: Result Comment: Canc elled via OM: Order cancelled - Patient discharged Performed By: #### L 503.6005 #### [facility] [address] [place], [address] Basic Metabolic Profile (BMP) Normal 133-145 [facility] Comment on above: Result Comment: Canc elled via OM: Order cancelled - Patient discharged Performed By: #### L 503.6005 #### [facility] [address] [place], [address] CBC W/Diff, Automatedon 05-0 -2024 Absolute Neut Normal 2.0-7.7 [facility] Comment on above: Result Comment: Canc elled via OM: Order cancelled - Patient discharged Performed By: #### L 503.6005 #### [facility] [address] [place], [address] HCT Normal 37-47 [facility] Comment on above: Result Comment: Canc elled via OM: Order cancelled - Patient discharged Performed By: #### L 503.6005 #### [facility] [address] [place], [address] HGB Normal 12.0-15.0 [facility] Comment on above: Result Comment: Canc elled via OM: Order cancelled - Patient discharged Performed By: #### L 503.6005 #### [facility] [address] [place], [address] MCH Normal 27.0-32.0 [facility] Comment on above: Result Comment: Canc elled via OM: Order cancelled - Patient discharged Performed By: #### L 503.6005 #### [facility] [address] [place], [address] MCHC Normal 32-36 [facility] Comment on above: Result Comment: Canc elled via OM: Order cancelled - Patient discharged Performed By: #### L 503.6005 #### [facility] [address] [place], [address] MCV Normal 81-99 [facility] Comment on above: Result Comment: Canc elled via OM: Order cancelled - Patient discharged Performed By: #### L 503.6005 #### [facility] [address] [place], [address] NEUT% Normal 47-70 [facility] Comment on above: Result Comment: Canc elled via OM: Order cancelled - Patient discharged Performed By: #### L 503.6005 #### [facility] [address] [place] [place], [address] PLT Normal 150-450 [facility] Comment on above: Result Comment: Canc elled via OM: Order cancelled - Patient discharged Performed By: #### L 503.6005 #### [facility] [address] [place] [place], [address] RBC Normal 4.2-5.4 [facility] Comment on above: Result Comment: Canc elled via OM: Order cancelled - Patient discharged Performed By: #### L 503.6005 #### [facility] [address] [place], [address] RDW CV Normal 11.6-14.6 [facility] Comment on above: Result Comment: Canc elled via OM: Order cancelled - Patient discharged Performed By: #### L 503.6005 #### [facility] [address] [place], [address] RDW SD Normal 35.1-43.9 [facility] Comment on above: Result Comment: Canc elled via OM: Order cancelled - Patient discharged Performed By: #### L 503.6005 #### [facility] [address] [place], [address] WBC Normal 4.4-11.0 [facility] Comment on above: Result Comment: Canc elled via OM: Order cancelled - Patient discharged Performed By: #### L 503.6005 #### [facility] [address] [place], [address] Basic Metabolic Profile (BMP )on 03-14-2025 BUN Normal 4-19 [facility] Comment on above: Result Comment: Canc elled via OM: Order cancelled - Patient discharged Performed By: #### L 500.2500, L100.0100, L501.4020 #### [facility] [address] [place] [place], [address] BUN/CRE Normal 10-20 [facility] Comment on above: Result Comment: Canc elled via OM: Order cancelled - Patient discharged Performed By: #### L 500.2500, L100.0100, L501.4020 #### [facility] [address] [place], [address] Calcium Normal 7.6-11.0 [facility] Comment on above: Result Comment: Canc elled via OM: Order cancelled - Patient discharged Performed By: #### L 500.2500, L100.0100, L501.4020 #### [facility] [address] [place] [place], [address] CL Normal 98-108 [facility] Comment on above: Result Comment: Canc elled via OM: Order cancelled - Patient discharged Performed By: #### L 500.2500, L100.0100, L501.4020 #### [facility] [address] [place] [place], [address] CO2 Normal 21.0-32.0 [facility] Comment on above: Result Comment: Canc elled via OM: Order cancelled - Patient discharged Performed By: #### L 500.2500, L100.0100, L501.4020 #### [facility] [address] [place] [place], [address] CREAT,SERUM Normal 0.70-1.20 [facility] Comment on above: Result Comment: Canc elled via OM: Order cancelled - Patient discharged Performed By: #### L 500.2500, L100.0100, L501.4020 #### [facility] [address] [place], [address] eGFR Normal >60 [facility] Comment on above: Result Comment: Canc elled via OM: Order cancelled - Patient discharged Performed By: #### L 500.2500, L100.0100, [id number] #### [facility] [address] [place], [address] GAP Normal 5-15 [facility] Comment on above: Result Comment: Canc elled via OM: Order cancelled - Patient discharged Performed By: #### L 500.2500, L100.0100, [id number] #### [facility] [address] [place], [address] GLU Normal 70-99 [facility] Comment on above: Result Comment: Canc elled via OM: Order cancelled - Patient discharged Performed By: #### L 500.2500, L100.0100, L501.4020 #### [facility] [address] [place], [address] Potassium Normal 3.3-5.1 [facility] Comment on above: Result Comment: Canc elled via OM: Order cancelled - Patient discharged Performed By: #### L 500.2500, L100.0100, L501.4020 #### [facility] [address] [place], [address] Basic Metabolic Profile (BMP) Normal 133-145 [facility] Comment on above: Result Comment: Canc elled via OM: Order cancelled - Patient discharged Performed By: #### L 500.2500, L100.0100, L501.4020 #### [facility] [address] [place], [address] CBC W/Diff, Automatedon 05-0 -2024 Absolute Neut Normal 2.0-7.7 [facility] Comment on above: Result Comment: Canc elled via OM: Order cancelled - Patient discharged Performed By: #### L 500.2500, L100.0100, L501.4020 #### [facility] [address] [place], [address] HCT Normal 37-47 [facility] Comment on above: Result Comment: Canc elled via OM: Order cancelled - Patient discharged Performed By: #### L 500.2500, L100.0100, [id number] #### [facility] [address] [place], [address] HGB Normal 12.0-15.0 [facility] Comment on above: Result Comment: Canc elled via OM: Order cancelled - Patient discharged Performed By: #### L 500.2500, L100.0100, L501.4020 #### [facility] [address] [place], [address] MCH Normal 27.0-32.0 [facility] Comment on above: Result Comment: Canc elled via OM: Order cancelled - Patient discharged Performed By: #### L 500.2500, L100.0100, [id number] #### [facility] [address] [place], [address] MCHC Normal 32-36 [facility] Comment on above: Result Comment: Canc elled via OM: Order cancelled - Patient discharged Performed By: #### L 500.2500, L100.0100, [id number] #### [facility] [address] [place], [address] MCV Normal 81-99 [facility] Comment on above: Result Comment: Canc elled via OM: Order cancelled - Patient discharged Performed By: #### L 500.2500, L100.0100, L501.4020 #### [facility] [address] [place], [place], [address] NEUT% Normal 47-70 [facility] Comment on above: Result Comment: Canc elled via OM: Order cancelled - Patient discharged Performed By: #### L 500.2500, L100.0100, L501.4020 #### [facility] [address] [place], [address] PLT Normal 150-450 [facility] Comment on above: Result Comment: Canc elled via OM: Order cancelled - Patient discharged Performed By: #### L 500.2500, L100.0100, L501.4020 #### [facility] [address] [place], [address] RBC Normal 4.2-5.4 [facility] Comment on above: Result Comment: Canc elled via OM: Order cancelled - Patient discharged Performed By: #### L 500.2500, L100.0100, L501.4020 #### [facility] [address] [place], [address] RDW CV Normal 11.6-14.6 [facility] Comment on above: Result Comment: Canc elled via OM: Order cancelled - Patient discharged Performed By: #### L 500.2500, L100.0100, L501.4020 #### [facility] [address] [place], [address] RDW SD Normal 35.1-43.9 [facility] Comment on above: Result Comment: Canc elled via OM: Order cancelled - Patient discharged Performed By: #### L 500.2500, L100.0100, L501.4020 #### [facility] [address] [place], [address] WBC Normal 4.4-11.0 [facility] Comment on above: Result Comment: Canc elled via OM: Order cancelled - Patient discharged Performed By: #### L 500.2500, L100.0100, L501.4020 #### [facility] [address] [place], [address] 12 Lead EKGon 03-13-2025 12 Lead EKG [facility] Cardi[facility] Services [address] [place] [address] 12 Lead EKG 03/13/25 0602 MR#: [id number] Acct: [id number] Name: RUBEN LOBO Rep #: [id number] : 1945 79 From: Cory Montes MD Attending Dr: Dr. Anthony Owen MD Status: DIS MELI Ordering Dr: Quincy Martin MD Date: 03/13/25 Location: [facility] Sex: F C Admitted: 03/12/25 Test Reason : AM EKG Blood Pressure : */* mmHG Vent. Rate : 81 BPM Atrial Rate : 192 BPM P-R Int : * ms QRS Dur : 78 ms QT Int : 386 ms P-R-T Axes : -89 54 96 degrees QTcB Int : 448 ms Atrial flutter with variable A-V block Abnormal ECG When compared with ECG of 12-Mar-2025 08:23, MANUAL COMPARISON REQUIRED DATA IS UNCONFIRMED Confirmed by JYOTI GLOVER, CORY ([id number]), map editor KRISTINE DURAN ([id number]) on 03/19/2025 12:42:53 PM Referred By: BRAYDEN Confirmed By: CORY MONTES MD 03/19/25 1242 Date Cory Montes MD CC: Dr. Anthony Owen MD; Dr. Rip De La Garza MD; Dr. Quincy Martin MD Signed Normal [facility] Absolute lymphocyte countOrd ered By: Anthony Owen on 03-13-2025 Lymphocytes Auto (Unsp spec) [#/Vol] 1.65 10*3/uL 0.83-4.51 [facility] Absolute neutrophil countOrd ered By: Anthony Owen on 03-13-2025 Neutrophils (Bld) [#/Vol] 2.7 10*3/uL 2.0-7.7 [facility] Anion gap in Serum or Plasma Ordered By: Anthony Owen on 03-13-2025 Anion gap [Moles/Vol] 10 mmol/L 5-15 [facility] Automated lymphocyte count a s percentage of total leukocytesOrdered By: Anthony Owen on 03-13-2025 Lymphocytes/100 WBC Auto (Unsp spec) 33.6 % 19-41 [facility] BUN/creatinine ratioOrdered By: Anthony Owen on 03-13-2025 Urea nitrogen/Creatinine [Mass ratio] 22.3 mg/mg High 10- [facility] Basic Metabolic Profile (BMP )on 03-13-2025 BUN/CRE 22.3 RATIO High 10- [facility] Comment on above: Performed By: #### L 503.6005 #### [facility] [address] [place], [address] Calcium [Mass/Vol] 9.0 mg/dL Normal 7.6-11.0 [facility] Comment on above: Performed By: #### L 503.6005 #### [facility] [address] [place], [address] Chloride [Moles/Vol] 105 mmol/L Normal 98-108 [facility] Comment on above: Performed By: #### L 503.6005 #### [facility] [address] [place], [address] CO2 [Moles/Vol] 23.1 mmol/L Normal 21.0-32.0 [facility] Comment on above: Performed By: #### L 503.6005 #### [facility] [address] [place], [address] Creatinine [Mass/Vol] 0.69 mg/dL Low 0.70-1.20 [facility] Comment on above: Performed By: #### L 503.6005 #### [facility] [address] [place], [address] ECRCL 44.34 ml/min Low 50-250 [facility] Comment on above: Performed By: #### L 503.6005 #### [facility] [address] [place], [address] GAP 10 Normal 5-15 [facility] Comment on above: Performed By: #### L 503.6005 #### [facility] [address] [place], [address] GFR/1.73 sq M.predicted among non-blacks MDRD (S/P/Bld) [Vol rate/Area] 88 mL/min/{1.73_m2} Normal >60 [facility] Comment on above: Result Comment: mL/m in/1.73m2 CKD-EPI Creatinine Equation (2020) Performed By: #### L 503.6005 #### [facility] [address] [place], [address] Glucose [Mass/Vol] 118 mg/dL High 70-99 [facility] Comment on above: Performed By: #### L 503.6005 #### [facility] [address] [place], [address] Potassium [Moles/Vol] 4.4 mmol/L Normal 3.3-5.1 [facility] Comment on above: Performed By: #### L 503.6005 #### [facility] [address] [place], [address] Sodium [Moles/Vol] 138 mmol/L Normal 133-145 [facility] Comment on above: Performed By: #### L 503.6005 #### [facility] [address] [place], [address] Urea nitrogen [Mass/Vol] 15 mg/dL Normal 4-19 [facility] Comment on above: Performed By: #### L 503.6005 #### [facility] [address] [place], [address] Basophil percentageOrdered B y: Anthony Owen on 03-13-2025 Basophils/100 WBC (Bld) 0.4 % 0-1 [facility] CBC W/Diff, Automatedon Absolute Lymph 1.65 X10 3/uL Normal 0.83-4.51 [facility] Comment on above: Performed By: #### L 503.6005 #### [facility] [address] [place], [address] Absolute Neut 2.7 X10 3/uL Normal 2.0-7.7 [facility] Comment on above: Performed By: #### L 503.6005 #### [facility] [address] [place], [address] Basophils/100 WBC (Bld) 0.4 % Normal 0-1 [facility] Comment on above: Performed By: #### L 503.6005 #### [facility] [address] [place], [address] Eosinophils/100 WBC (Bld) 1.6 % Normal 0-5 [facility] Comment on above: Performed By: #### L 503.6005 #### [facility] [address] [place], [address] Erythrocyte distribution width (RBC) [Ratio] 15.5 % High 11.6-14.6 [facility] Comment on above: Performed By: #### L 503.6005 #### [facility] [address] [place], [address] Hematocrit (Bld) [Volume fraction] 36.7 % Low 37-47 [facility] Comment on above: Performed By: #### L 503.6005 #### [facility] [address] [place], [address] Hemoglobin (Bld) [Mass/Vol] 11.5 g/dL Low 12.0-15.0 [facility] Comment on above: Performed By: #### L 503.6005 #### [facility] [address] [place], [address] IG% 0.400 Normal 0.0-0.9 [facility] Comment on above: Result Comment: IG% - Immature Granulocytes (promyelocytes, myelocytes and metamyelocytes) > 1% indicates that a LEFT SHIFT is Present. Performed By: #### L 503.6005 #### [facility] [address] [place], [address] Lymphocytes/100 WBC (Bld) 33.6 % Normal 19-41 [facility] Comment on above: Performed By: #### L 503.6005 #### [facility] [address] [place], [address] MCH (RBC) [Entitic mass] 27.3 pg Normal 27.0-32.0 [facility] Comment on above: Performed By: #### L 503.6005 #### [facility] [address] [place], [address] MCHC (RBC) [Mass/Vol] 31.3 g/dL Low 32-36 [facility] Comment on above: Performed By: #### L 503.6005 #### [facility] [address] [place], [address] MCV (RBC) [Entitic vol] 87.2 fL Normal 81-99 [facility] Comment on above: Performed By: #### L 503.6005 #### [facility] [address] [place], [address] Monocytes/100 WBC (Bld) 10.0 % Normal 0-10 [facility] Comment on above: Performed By: #### L 503.6005 #### [facility] [address] [place], [address] Neutrophils/100 WBC (Bld) 54.0 % Normal 47-70 [facility] Comment on above: Performed By: #### L 503.6005 #### [facility] [address] [place], [address] Nucleated RBC (Bld) [#/Vol] 0 10*3/uL Normal 0-5 [facility] Comment on above: Performed By: #### L 503.6005 #### [facility] [address] [place], [address] Platelet mean volume (Bld) [Entitic vol] 11.6 fL Normal 6.2-12.0 [facility] Comment on above: Performed By: #### L 503.6005 #### [facility] [address] [place], [address] Platelets (Bld) [#/Vol] 109 10*3/uL Low 150-450 [facility] Comment on above: Performed By: #### L 503.6005 #### [facility] [address] [place], [address] RBC (Bld) [#/Vol] 4.21 10*6/uL Normal 4.2-5.4 [facility] Comment on above: Performed By: #### L 503.6005 #### [facility] [address] [place], [address] RDW SD 49.2 fl High 35.1-43.9 [facility] Comment on above: Performed By: #### L 503.6005 #### [facility] [address] [place], [address] WBC (Bld) [#/Vol] 4.9 10*3/uL Normal 4.4-11.0 [facility] Comment on above: Performed By: #### L 503.6005 #### [facility] [address] [place], [address] Carbon dioxide, total [Moles /volume] in Central venous bloodOrdered By: Anthony Owen on 03-13-2025 CO2 [Moles/Vol] 23.1 mmol/L 21.0-32.0 [facility] Chloride assayOrdered By: Leonardo Owen on 03-13-2025 Chloride [Moles/Vol] 105 mmol/L 98-108 [facility] Eosinophil percentageOrdered By: Anthony Owen on 03-13-2025 Eosinophils/100 WBC (Bld) 1.6 % 0-5 [facility] Erythrocyte distribution wid th ratioOrdered By: Anthony Owen on 03-13-2025 Erythrocyte distribution width (RBC) [Ratio] 15.5 % High 11.6-14.6 [facility] Erythrocyte distribution wid th standard deviationOrdered By: Anthony Owen on 03-13-2025 Erythrocyte distribution width (RBC) [Ratio] 49.2 fl High 35.1-43.9 [facility] Glomerular filtration rate ( GFR) estimation/1.73 sq m using serum, plasma, or whole bOrdered By: Anthony Owen on 03-13-2025 GFR/1.73 sq M.predicted among non-blacks MDRD (S/P/Bld) [Vol rate/Area] 88 mL/min/{1.73_m2} >60 [facility] Comment on above: mL/min/1.73m2 CKD-EP I Creatinine Equation (2020) Hematocrit Auto (Bld) [Volum e fraction]Ordered By: Anthony Owen on 03-13-2025 Hematocrit (Bld) [Volume fraction] 36.7 % Low 37-47 [facility] Hemoglobin measurementOrdere d By: Anthony Owen on 03-13-2025 Hemoglobin (Bld) [Mass/Vol] 11.5 g/dL Low 12.0-15.0 [facility] Immature granulocytes/100 WB C Auto (Bld)Ordered By: Anthony Owen on 03-13-2025 Immature granulocytes/100 WBC (Bld) 0.400 % 0.0-0.9 [facility] Comment on above: IG% - Immature Granu locytes (promyelocytes, myelocytes and metamyelocytes) > 1% indicates that a LEFT SHIFT is Present. MCV (mean corpuscular volume ) determinationOrdered By: Anthony Owen on 03-13-2025 MCV (RBC) [Entitic vol] 87.2 fL 81-99 [facility] Magnesiumon 03-13-2025 Magnesium [Mass/Vol] 1.9 mg/dL Normal 1.5-2.2 [facility] Comment on above: Performed By: #### L 500.2500, L100.0100, L501.4020 #### [facility] [address] [place], [place], [address] Magnesium measurement (mass/ volume)Ordered By: Anthony Owen on 03-13-2025 Magnesium (Unsp spec) [Mass/Vol] 1.9 mg/dL 1.5-2.2 [facility] Mean corpuscular hemoglobin (MCH) determinationOrdered By: Anthony Owen on 03-13-2025 MCH (RBC) [Entitic mass] 27.3 pg 27.0-32.0 [facility] Mean corpuscular hemoglobin concentration (MCHC) determinationOrdered By: Anthony Owen on 03-13-2025 MCHC (RBC) [Mass/Vol] 31.3 g/dL Low 32-36 [facility] Mean platelet volume determi nationOrdered By: Anthony Owen on 03-13-2025 Platelet mean volume (Bld) [Entitic vol] 11.6 fL 6.2-12.0 [facility] Monocyte percentageOrdered B y: Anthony Owen on 03-13-2025 Monocytes/100 WBC (Bld) 10.0 % 0-10 [facility] Neutrophil percentageOrdered By: Anthony Owen on 03-13-2025 Neutrophils/100 WBC (Bld) 54.0 % 47-70 [facility] Nucleated red blood cell per centageOrdered By: Anthony Owen on 03-13-2025 Nucleated RBC/100 WBC (Bld) [Ratio] 0 % 0-5 [facility] Phosphoruson 03-13-2025 Phosphate [Mass/Vol] 4.2 mg/dL Normal 2.7-4.5 [facility] Comment on above: Performed By: #### L 503.6005 #### [facility] [address] [facility] [place], [address] Platelet countOrdered By: Leonardo Owen on 03-13-2025 Platelets (Bld) [#/Vol] 109 10*3/uL Low 150-450 [facility] Potassium measurement (mass/ volume)Ordered By: Anthony Owen on 03-13-2025 Potassium (Unsp spec) [Mass/Vol] 4.4 mmol/L 3.3-5.1 [facility] RBC Auto (Bld) [#/Vol]Ordere d By: Anthony Owen on 03-13-2025 RBC (Bld) [#/Vol] 4.21 10*6/uL 4.2-5.4 [facility] Serum creatinine measurement (mass/volume)Ordered By: Anthony Owen on 03-13-2025 Creatinine [Mass/Vol] 0.69 mg/dL Low 0.70-1.20 [facility] Serum glucose measurement (m ass/volume)Ordered By: Anthony Owen on 03-13-2025 Glucose [Mass/Vol] 118 mg/dL High 70-99 [facility] Serum or plasma calcium unruly urement (mass/volume)Ordered By: Anthony Owen on 03-13-2025 Calcium [Mass/Vol] 9.0 mg/dL 7.6-11.0 [facility] Serum or plasma urea nitroge n measurement (mass/volume)Ordered By: Anthony Owen on 03-13-2025 Urea nitrogen [Mass/Vol] 15 mg/dL 4-19 [facility] Sodium levelOrdered By: Cheko Owen on 03-13-2025 Sodium [Moles/Vol] 138 mmol/L 133-145 [facility] White blood cell (WBC) count Ordered By: Anthony Owen on 03-13-2025 WBC (Bld) [#/Vol] 4.9 10*3/uL 4.4-11.0 [facility] 12 Lead EKGon 03-12-2025 12 Lead EKG [facility] Cardiovascular Services [address] [place] [address] 12 Lead EKG 03/12/25 0823 MR#: [id number] Acct: [id number] Name: RUBEN LOBO Rep #: [id number] : 1945 79 From: Cory Montes MD Attending Dr: Dr. Anthony Owen MD Status: DIS MELI Ordering Dr: Tex Chavarria DO Date: 03/12/25 Location: U Sex: F C Admitted: 03/12/25 Test Reason : REPEAT Blood Pressure : */* mmHG Vent. Rate : 62 BPM Atrial Rate : 62 BPM P-R Int : 216 ms QRS Dur : 86 ms QT Int : 458 ms P-R-T Axes : 74 31 117 degrees QTcB Int : 464 ms Atrial flutter with variable block Nonspecific T wave abnormality Abnormal ECG Confirmed by CORY MONTES MD ([id number]), map editor KRISTINE DURAN ([id number]) on 03/15/2025 9:54:57 AM Referred By: Confirmed By: CORY MONTES MD 03/15/2554 Date Cory Montes MD CC: Dr. Anthony Owen MD; Dr. Rip De La Garza MD; Dr. Tex Chavarria DO Signed Normal [facility] 12 Lead EKG [facility] Cardi[facility] Services [address] [place] [address] 12 Lead EKG 03/12/25 0756 MR#: [id number] Acct: [id number] Name: RUBEN LOBO Rep #: [id number] : 1945 79 From: Cory Montes MD Attending Dr: Dr. Anthony Owen MD Status: DIS MELI Ordering Dr: Tex Chavarria DO Date: 03/12/25 Location: [facility] Sex: F C Admitted: 03/12/25 Test Reason : GENERAL Blood Pressure : */* mmHG Vent. Rate : 64 BPM Atrial Rate : 187 BPM P-R Int : * ms QRS Dur : 78 ms QT Int : 462 ms P-R-T Axes : * 15 113 degrees QTcB Int : 476 ms Critical Test Result: AV Block Atrial flutter with variable block Abnormal ECG Confirmed by CORY MONTES MD ([id number]), KRISTINE Duarte ([id number]) on 03/15/2025 9:17:20 AM Referred By: Confirmed By: CORY MONTES MD 03/15/25 0917 Date Cory Montes MD CC: Dr. Anthony Owen MD; Dr. Rip De La Garza MD; Dr. Tex Chavarria DO Signed Normal [facility] Activated partial thrombopla stin time (aPTT) in platelet poor plasma by coagulation aOrdered By: Tex Chavarria on 03-12-2025 aPTT Coag (PPP) [Time] 31.9 s 24.1-36.2 [facility] Bilirubin, totalOrdered By: Tex Chavarria on 03-12-2025 Bilirubin [Mass/Vol] 0.45 mg/dL 0.00-1.30 [facility] CBC W/Diff, Automatedon Absolute Lymph 1.07 X10 3/uL Normal 0.83-4.51 [facility] Comment on above: Performed By: #### L 500.2500, L100.0100, L501.4020 #### [facility] [address] [place], [address] Absolute Neut 3.1 X10 3/uL Normal 2.0-7.7 [facility] Comment on above: Performed By: #### L 500.2500, L100.0100, L501.4020 #### [facility] [address] [place], [address] Basophils/100 WBC (Bld) 0.6 % Normal 0-1 [facility] Comment on above: Performed By: #### L 500.2500, L100.0100, L501.4020 #### [facility] [address] [place], [address] Eosinophils/100 WBC (Bld) 1.1 % Normal 0-5 [facility] Comment on above: Performed By: #### L 500.2500, L100.0100, L501.4020 #### [facility] [address] [place], [address] Erythrocyte distribution width (RBC) [Ratio] 15.3 % High 11.6-14.6 [facility] Comment on above: Performed By: #### L 500.2500, L100.0100, L501.4020 #### [facility] [address] [place], [address] Hematocrit (Bld) [Volume fraction] 38.4 % Normal 37-47 [facility] Comment on above: Performed By: #### L 500.2500, L100.0100, L501.4020 #### [facility] [address] [place], [address] Hemoglobin (Bld) [Mass/Vol] 12.2 g/dL Normal 12.0-15.0 [facility] Comment on above: Performed By: #### L 500.2500, L100.0100, L501.4020 #### [facility] [address] [place], [address] IG% 0.400 Normal 0.0-0.9 [facility] Comment on above: Result Comment: IG% - Immature Granulocytes (promyelocytes, myelocytes and metamyelocytes) > 1% indicates that a LEFT SHIFT is Present. Performed By: #### L 500.2500, L100.0100, L501.4020 #### [facility] [address] [place], [address] Lymphocytes/100 WBC (Bld) 22.6 % Normal 19-41 [facility] Comment on above: Performed By: #### L 500.2500, L100.0100, L501.4020 #### [facility] [address] [place], [address] MCH (RBC) [Entitic mass] 27.4 pg Normal 27.0-32.0 [facility] Comment on above: Performed By: #### L 500.2500, L100.0100, L501.4020 #### [facility] [address] [place], [address] MCHC (RBC) [Mass/Vol] 31.8 g/dL Low 32-36 [facility] Comment on above: Performed By: #### L 500.2500, L100.0100, L501.4020 #### [facility] [address] [place], [address] MCV (RBC) [Entitic vol] 86.3 fL Normal 81-99 [facility] Comment on above: Performed By: #### L 500.2500, L100.0100, L501.4020 #### [facility] [address] [place], [address] Monocytes/100 WBC (Bld) 9.7 % Normal 0-10 [facility] Comment on above: Performed By: #### L 500.2500, L100.0100, L501.4020 #### [facility] [address] [place], [address] Neutrophils/100 WBC (Bld) 65.6 % Normal 47-70 [facility] Comment on above: Performed By: #### L 500.2500, L100.0100, L501.4020 #### [facility] [address] [place], [address] Nucleated RBC (Bld) [#/Vol] 0 10*3/uL Normal 0-5 [facility] Comment on above: Performed By: #### L 500.2500, L100.0100, L501.4020 #### [facility] [address] [place], [address] Platelet mean volume (Bld) [Entitic vol] 10.9 fL Normal 6.2-12.0 [facility] Comment on above: Performed By: #### L 500.2500, L100.0100, L501.4020 #### [facility] [address] [place], [address] Platelets (Bld) [#/Vol] 130 10*3/uL Low 150-450 [facility] Comment on above: Performed By: #### L 500.2500, L100.0100, L501.4020 #### [facility] [address] [place], [address] RBC (Bld) [#/Vol] 4.45 10*6/uL Normal 4.2-5.4 [facility] Comment on above: Performed By: #### L 500.2500, L100.0100, L501.4020 #### [facility] [address] [place], [address] RDW SD 48.3 fl High 35.1-43.9 [facility] Comment on above: Performed By: #### L 500.2500, L100.0100, L501.4020 #### [facility] [address] [place], [address] WBC (Bld) [#/Vol] 4.7 10*3/uL Normal 4.4-11.0 [facility] Comment on above: Performed By: #### L 500.2500, L100.0100, L501.4020 #### [facility] [address] [place], [address] Comprehensive Metabolic Prof [facility] 03-12-2025 Albumin [Mass/Vol] 4.0 g/dL Normal 3.4-4.8 [facility] Comment on above: Performed By: #### L 500.2500, L100.0100, L501.4020 #### [facility] [address] [place], [address] Albumin/Globulin [Mass ratio] 1.3 {ratio} Normal 0.9-2.4 [facility] Comment on above: Performed By: #### L 500.2500, L100.0100, L501.4020 #### [facility] [address] [place], [address] ALK PHOS 118 U/L High 35-104 [facility] Comment on above: Performed By: #### L 500.2500, L100.0100, L501.4020 #### [facility] [address] [place], [address] ALT [Catalytic activity/Vol] 10 U/L Normal <=34 [facility] Comment on above: Performed By: #### L 500.2500, L100.0100, L501.4020 #### [facility] [address] [place], [address] AST [Catalytic activity/Vol] 24 U/L Normal <=31 [facility] Comment on above: Performed By: #### L 500.2500, L100.0100, L501.4020 #### [facility] [address] [place], [address] Bilirubin [Mass/Vol] 0.45 mg/dL Normal 0.00-1.30 [facility] Comment on above: Performed By: #### L 500.2500, L100.0100, L501.4020 #### [facility] [address] [place], [address] BUN/CRE 24.3 RATIO High 10-20 [facility] Comment on above: Performed By: #### L 500.2500, L100.0100, L501.4020 #### [facility] [address] [place], [address] Calcium [Mass/Vol] 9.4 mg/dL Normal 7.6-11.0 [facility] Comment on above: Performed By: #### L 500.2500, L100.0100, L501.4020 #### [facility] [address] [place], [address] Chloride [Moles/Vol] 101 mmol/L Normal 98-108 [facility] Comment on above: Performed By: #### L 500.2500, L100.0100, L501.4020 #### [facility] [address] [place], [address] CO2 [Moles/Vol] 27.2 mmol/L Normal 21.0-32.0 [facility] Comment on above: Performed By: #### L 500.2500, L100.0100, L501.4020 #### [facility] [address] [place], [address] Creatinine [Mass/Vol] 0.89 mg/dL Normal 0.70-1.20 [facility] Comment on above: Performed By: #### L 500.2500, L100.0100, L501.4020 #### [facility] [address] [place], [address] ECRCL 40.29 ml/min Low 50-250 [facility] Comment on above: Performed By: #### L 500.2500, L100.0100, L501.4020 #### [facility] [address] [place], [address] GAP 10 Normal 5-15 [facility] Comment on above: Performed By: #### L 500.2500, L100.0100, L501.4020 #### [facility] [address] [place], [address] GFR/1.73 sq M.predicted among non-blacks MDRD (S/P/Bld) [Vol rate/Area] 66 mL/min/{1.73_m2} Normal >60 [facility] Comment on above: Result Comment: mL/m in/1.73m2 CKD-EPI Creatinine Equation (2020) Performed By: #### L 500.2500, L100.0100, L501.4020 #### [facility] [address] [place] [place], [address] Globulin (S) [Mass/Vol] 3.1 g/dL Normal 2.2-4.2 [facility] Comment on above: Performed By: #### L 500.2500, L100.0100, L501.4020 #### [facility] [address] [place], [address] Glucose [Mass/Vol] 144 mg/dL High 70-99 [facility] Comment on above: Performed By: #### L 500.2500, L100.0100, L501.4020 #### [facility] [address] [place], [address] Potassium [Moles/Vol] 4.5 mmol/L Normal 3.3-5.1 [facility] Comment on above: Performed By: #### L 500.2500, L100.0100, L501.4020 #### [facility] [address] [place], [address] Sodium [Moles/Vol] 138 mmol/L Normal 133-145 [facility] Comment on above: Performed By: #### L 500.2500, L100.0100, L501.4020 #### [facility] [address] [place], [address] T PROT 7.1 g/dL Normal 5.9-8.4 [facility] Comment on above: Performed By: #### L 500.2500, L100.0100, L501.4020 #### [facility] [address] [place], [address] Urea nitrogen [Mass/Vol] 22 mg/dL High 4-19 [facility] Comment on above: Performed By: #### L 500.2500, L100.0100, L501.4020 #### [facility] [address] [place], [address] Consultation - Cardiologyon 03-12-2025 Consultation - Cardiology [facility] Medical Records Department [address] [place] [address] Consultation - Cardiology 03/12/25 1317 MR#: [id number] Acct: [id number] Name: RUBEN LOBO Rep #: [id number] : 1945 79 From: Quincy Martin MD PCP: Dr. Rip De La Garza MD Status:ADM MELI Location: [place] [address] Assessment Plan Assessment/Plan (1) Paroxysmal atrial fibrillation: (2) Atrial flutter, paroxysmal: (3) Nausea: (4) MUÑOZ (dyspnea on exertion): (5) Fatigue: PLAN: 79-year-old patient I was consulted for evaluation of this patient as she has abnormal EKG Presentation with symptoms of nausea fatigue generalized weakness. 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 She was on diltiazem hydrochloride 180 mg daily in addition to metoprolol 50 mg twice daily as well patient has been treated with amiodarone. On review of the cardiac record patient had an echocardiogram previously showed EF in the range of 60% no significant valvular abnormality noted. Cardiac care plan recommendations; This patient with multiple medical comorbidities Has paroxysmal atrial fibrillation Essential hypertension Pulmonary hypertension CLARISSE The residential monitor did reveal atrial flutter with variable ventricular rate. Recommend to monitor over the night continue on the anticoagulation with apixaban In addition I reduced the dose of the beta-kelly to metoprolol 25 twice daily Reduce the dose of Cardizem to 30 every 8 hour. Will repeat an echocardiogram to assess and evaluate LV function. Will follow-up clinically during this admission once stable she can be discharged likely tomorrow and plan of follow-up earlier with the primary cryptographic center specialist To discuss further plan possible synchronized cardioversion which can be set up as an outpatient. HPI Consult Data Date of Consult: 03/12/25 HPI Narrative Reason for Consultation: Atrial flutter with variable ventricular rate HPI Narrative: RUBEN LOBO, is a 79 F who presents [facility] Medical History Postoperative hematoma Dehydration Dizziness Intractable pain UTI (urinary tract infection) Wears hearing aid Arthritis Restless legs Shortness of breath on exertion On amiodarone therapy Wears dentures Post-menopausal Depression Anxiety Rheumatoid arthritis History of hiatal hernia Gastric reflux Non-smoker CPAP (continuous positive airway pressure) dependence Sleep apnea History of pain when walking History of echocardiogram History of stress test Hypertension Cardiology follow-up encounter History of atrial fibrillation History of cardioversion CLARISSE (obstructive sleep apnea) Mixed 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 Pulmonary hypertension Chronic cholecystitis with calculus Paroxysmal atrial fibrillation Essential (primary) hypertension Esophageal hiatal hernia 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, left care home current use of anticoagulant Atrial flutter GERD (gastroesophageal reflux disease) Home Medications ???Medication ???Instructions ???Recorded ???Last Taken ???Type sertraline 100 mg tablet 100 mg PO QHS 12/14/20 03/11/25 Hi story acetaminophen 500 mg tablet 1,000 mg PO Q8 PRN Pain 12/20/23 0 03/11/25 History metoprolol tartrate 50 mg tablet 50 mg PO BID This is a dose 03/11/25 Rx increase #180 tabs apixaban 5 mg tablet (Eliquis) 5 mg PO BID #180 tabs 04/07/2412/05 Rx cholecalciferol (vitamin D3) 50 50 mcg PO DAILY 07/19/24 03/11/25 History mcg (2,000 unit) capsule pantoprazole 40 mg tablet,delayed 40 mg PO DAILY #90 tabs 08/19/24 03/11/25 Rx release diltiazem HCl 180 mg 180 mg PO DAILY 03/12/25 03/12/25 History capsule,extended release 24 hr magnesium oxide 400 mg PO DAILY SUPPLEMENT 5 03/11/25 History oxycodone 5 mg tablet 2.5 - 5 mg PO QHS 03/12/25 5 History tizanidine 4 mg tablet 4 mg PO Q8H PRN muscle spasticity 03/12/25 Unknown History Allergy/AdvReac Type Severity Reaction Status Date / Time No Known Allergies Allergy Verified 03/12/25 07:15 Family History Mother Hypertension Arthritis Heart disease Father Cancer Brother Cancer Son CVA (cerebral vascular accident) Diabetes Brother TIA (transient ischemic attack) Sister Cancer kidney cancer Thyroid disorder Surgical History (more content not included)... Normal [facility] Echo Completeon 03-12-2025 Echo Complete [facility] [address] [place] [address] Echo Complete 03/12/25 1420 MR#: [id number] Acct: [id number] Name: RUBEN LOBO Rep #: [id number] : 1945 79 From: Quincy Martin MD Attending Dr: Dr. Anthony Owen MD Status: ADM MELI Ordering Dr: Anthony Owen MD Date: 03/12/25 Location: [facility] Sex: F C Admitted: 03/12/25 Reason For Study Reason For Study: ARRYTHMIA Procedure This was a 2D Doppler, Color Flow transthoracic echocardiogram. Exam performed portable in patient room. Left Ventricle Normal left ventricle. The estimated ejection fraction is 55-60 %. Right Ventricle Normal right ventricle. Normal systolic function. Atria The left atrium is moderately enlarged. The right atrium is moderately enlarged. Mitral Valve The mitral valve is structurally normal. No prolapse or stenosis seen. Mild (1+) mitral valve insufficiency. Tricuspid Valve Normal tricuspid valve. Moderate (2+) tricuspid valve insufficiency. Aortic Valve Trisinus/trileaflet aortic valve. Trivial aortic valve insufficiency. Pulmonic Valve The pulmonic valve is not well visualized. Great Vessels The aortic root is not well visualized. Pericardium/Pleural No pericardial effusion. MMode/2D Measurements Calculations LVIDd: 3.9 cm IVSd: 0.75 cm LVOT diam: 2.0 cm LVIDs: 2.9 cm LVPWd: 1.1 cm LVOT area: 3.3 cm2 RVDd: 4.0 cm FS: 25.1 % Ao root diam: 3.0 cm LAV(MOD-bp): 77.7 ml LVAd ap4: 19.4 cm2 LAV(MOD-bp) Indexed: 51.0 ml/m2 LVLd ap4: 6.8 cm LAV(MOD-sp2): 57.7 ml EDV(MOD-sp4): 47.6 ml LAV(MOD-sp4): 88.7 ml EDV(sp4-el): 47.2 ml LVAs ap4: 13.9 cm2 LVLs ap4: 6.3 cm ESV(MOD-sp4): 28.3 ml ESV(sp4-el): 26.2 ml EF(MOD-sp4): 40.6 % EF(sp4-el): 44.5 % SV(MOD-sp4): 19.3 ml SV(sp4-el): 21.0 ml LA A4 area: 27.2 cm2 SI(MOD-sp4): 12.7 ml/m2 LA dimension(2D): 4.3 cm RA A4 area: 23.0 cm2 Time Measurements MV dec time: 0.15 sec Doppler Measurements Calculations MV E max bart: 122.8 cm/sec Lat Peak E' Bart: 6.9 cm/sec Med Peak E' Bart: 9.5 cm/sec MV A max bart: 41.3 cm/sec E/E' lat: 17.8 E/E' med: 13.0 MV E/A: 3.0 MV V2 max: 131.2 cm/sec Ao V2 max: 98.1 cm/sec MV max P.9 mmHg MV dec slope: 810.5 cm/sec2 Ao max P.9 mmHg MV V2 mean: 63.1 cm/sec Ao V2 mean: 64.9 cm/sec MV mean P.2 mmHg Ao mean P.0 mmHg MV V2 VTI: 24.1 cm Ao V2 VTI: 19.0 cm AV (velocity ratio): 0.93 MVA(VTI): 2.4 cm2 MED(I,D): 3.0 cm2 MED(V,D): 3.1 cm2 AI max bart: 443.2 cm/sec LV V1 max: 92.7 cm/sec SV(LVOT): 57.9 ml AI max P.6 mmHg LV V1 max P.4 mmHg LV V1 mean P.9 mmHg AI dec slope: 232.9 cm/sec2 LV V1 mean: 63.2 cm/sec AI P1/2t: 557.3 msec LV V1 VTI: 17.6 cm PA V2 max: 165.0 cm/sec TR max bart: 304.0 cm/sec PA V2 mean: 101.1 cm/sec TR max P.0 mmHg PA mean PG (full): 1.6 mmHg ECHO/Echo Complete Interpretation Summary The estimated ejection fraction is 55-60 %. Normal LV systolic function Mild MR Trivial aortic regurgitation Moderate tricuspid dilatation. No significant change from previous echocardiogram Ordering Physician: Anthony Owen Referring Physician: Rpi De La Garza MD Performed By: Chanell Ruff RCS 03/13/25 1449 Date Quincy Martin MD CC: Dr. Anthony Owen MD; Dr. Rip De La Garza MD Date Dictated: 03/12/25 1420 Date Transcribed: 03/13/25 1449 [employer] Supervisor: Signed Normal [facility] Emergency Department Summary on 03-12-2025 Emergency Department Summary [facility] Medical Records Department [address] [place] [address] Emergency Department Summary 03/12/25 MR#: [id number] Acct: [id number] Name: RUBEN LOBO Rep #: [id number] : 1945 79 From: Tex Chavarria DO PCP: Dr. Rip De La Garza MD Status:ADM MELI Location: [address] History of Present Illness Chief Complaint: General Illness Narrative Narrative: Patient is a 79-year-old female who is presenting to the ER with multiple complaints. Patient is having upper thoracic chronic back pain for a year status post surgeries and spinal injections. Patient has seen multiple specialist for this, she has an appointment next week. This is not acute today. Patient acute concern is weakness, fatigue, nausea since Saturday. 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 Son is at bedside. Son states that patient is weak and fatigued caring for her . Patient has no headache or neck pain. No significant chest pain or shortness of breath. Mild abdominal discomfort. No history of acid reflux, she does take acid reflux medication. No bowel or bladder changes. Patient uses with 2 feet for ambulation at home. No recent falls. No recent trauma. No true emesis, just nausea for the past [address] [facility] Medical History Postoperative hematoma Dehydration Dizziness Intractable pain UTI (urinary tract infection) Wears hearing aid Arthritis Restless legs Shortness of breath on exertion On amiodarone therapy Wears dentures Post-menopausal Depression Anxiety Rheumatoid arthritis History of hiatal hernia Gastric reflux Non-smoker CPAP (continuous positive airway pressure) dependence Sleep apnea History of pain when walking History of echocardiogram History of stress test Hypertension Cardiology follow-up encounter History of atrial fibrillation History of cardioversion CLARISSE (obstructive sleep apnea) Mixed hyperlipidemia care home current use of 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 drug Pulmonary hypertension Chronic cholecystitis with calculus Paroxysmal atrial fibrillation Essential (primary) hypertension Esophageal hiatal hernia 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, left care home current use of anticoagulant Atrial flutter GERD (gastroesophageal reflux disease) Home Medications ???Medication ???Instructions ???Recorded ???Last Taken ???Type sertraline 100 mg tablet 100 mg PO QHS 12/14/20 07/18/24 Hi story acetaminophen 500 mg tablet 1,000 mg PO Q8 PRN Pain 12/20/23 U nknown History metoprolol tartrate 50 mg tablet 50 mg PO BID This is a dose 07/19/24 Rx increase #180 tabs apixaban 5 mg tablet (Eliquis) 5 mg PO BID #180 tabs 04/07/2406/03 Rx cholecalciferol (vitamin D3) 50 50 mcg PO DAILY 07/19/24 07/18/24 History mcg (2,000 unit) capsule pantoprazole 40 mg tablet,delayed 40 mg PO DAILY #90 tabs 08/19/24 Unknown Rx release diltiazem HCl 180 mg 180 mg PO DAILY 03/12/25 03/12/25 History capsule,extended release 24 hr magnesium oxide 400 mg PO DAILY SUPPLEMENT 5 03/11/25 History oxycodone 5 mg tablet 2.5 - 5 mg PO QHS 03/12/25 5 History tizanidine 4 mg tablet 4 mg PO Q8H PRN muscle spasticity 03/12/25 Unknown History Allergy/AdvReac Type Severity Reaction Status Date / Time No Known Allergies Allergy Verified 03/12/25 07:15 Family History Mother Hypertension Arthritis Heart disease Father Cancer Brother Cancer Son CVA (cerebral vascular accident) Diabetes Brother TIA (transient ischemic attack) Sister Cancer kidney cancer Thyroid disorder Surgical History Status post right knee replacement Hx of cystoscopy History of arthroscopy of right knee History of cardiac catheterization History of open heart surgery History of cholecystectomy History of atrial septal defect repair History of appendectomy Status post laparoscopic Diogenes fundoplication ( 11/2018) History of hysterectomy Social History Smoking Status: Never smoker alcohol intake: never substance use type: does not use caffeine: Yes Type: coffee Number of servings: 1 what type of physical activity do you participate in: walking frequency: daily duration: 30-45 minutes/day seatbelt use: always do you feel safe at home: Yes ROS ROS ED ROS Narrative REVIEW OF SYSTEMS: Unless otherwise stated in this report the patient's positive and negative responses for review of systems for constitutional, eyes, ENT, cardiovascular, respiratory, gas trointestinal, neurological, , musculoskeletal, and (more content not included)... Normal [facility] H AND P Exam - [facility] 03-12-2025 H&P Exam - Hospitalist [facility] Medical Records Department [address] [place] [address] H P Exam - Hospitalist 03/12/25 0940 MR#: [id number] Acct: [id number] Name: RUBEN LOBO Rep #: [id number] : 1945 79 From: Anthony Owen MD PCP: Dr. Rip De La Garza MD Status:ADM MELI Location: [place] [address] HPI - General General Date of Admission: 03/12/25 Date of Service: 03/12/25 Chief Complaint: Fatigue HPI Narrative RUBEN LOBO, is a 79 Fwith past medical history significant for paroxysmal atrial fibrillation, ASD status postrepair dyslipidemia hypertension who presented with progressive generalized weakness and fatigue. Per patient he has been unsteady on his feet but denies having any fall. Also complains of chronic neck and back pain for which she is undergoing multiple epidural steroid injection. Decision was made to present patient to the hospital due to increasing fatigue. Workup in the emergency department was unremarkable except for EKG which demonstrated second-degree AV block. The cryptographic center specialist on-call Dr. Rivas was notified recommended for patient to be admitted for subsequent evaluation in the hospital [facility] Medical History Postoperative hematoma Dehydration Dizziness Intractable pain UTI (urinary tract infection) Wears hearing aid Arthritis Restless legs Shortness of breath on exertion On amiodarone therapy Wears dentures Post-menopausal Depression Anxiety Rheumatoid arthritis History of hiatal hernia Gastric reflux Non-smoker CPAP (continuous positive airway pressure) dependence Sleep apnea History of pain when walking History of echocardiogram History of stress test Hypertension Cardiology follow-up encounter History of atrial fibrillation History of cardioversion CLARISSE (obstructive sleep apnea) Mixed hyperlipidemia care home current use of 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 drug Pulmonary hypertension Chronic cholecystitis with calculus Paroxysmal atrial fibrillation Essential (primary) hypertension Esophageal hiatal hernia 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, left care home current use of anticoagulant Atrial flutter GERD (gastroesophageal reflux disease) Home Medications ???Medication ???Instructions ???Recorded ???Last Taken ???Type sertraline 100 mg tablet 100 mg PO QHS 12/14/20 03/11/25 Hi story acetaminophen 500 mg tablet 1,000 mg PO Q8 PRN Pain 12/20/23 0 03/11/25 History metoprolol tartrate 50 mg tablet 50 mg PO BID This is a dose 03/11/25 Rx increase #180 tabs apixaban 5 mg tablet (Eliquis) 5 mg PO BID #180 tabs 04/07/2412/05 Rx cholecalciferol (vitamin D3) 50 50 mcg PO DAILY 07/19/24 03/11/25 History mcg (2,000 unit) capsule pantoprazole 40 mg tablet,delayed 40 mg PO DAILY #90 tabs 08/19/24 03/11/25 Rx release diltiazem HCl 180 mg 180 mg PO DAILY 03/12/25 03/12/25 History capsule,extended release 24 hr magnesium oxide 400 mg PO DAILY SUPPLEMENT 5 03/11/25 History oxycodone 5 mg tablet 2.5 - 5 mg PO QHS 03/12/25 5 History tizanidine 4 mg tablet 4 mg PO Q8H PRN muscle spasticity 03/12/25 Unknown History Allergy/AdvReac Type Severity Reaction Status Date / Time No Known Allergies Allergy Verified 03/12/25 07:15 Family History Mother Hypertension Arthritis Heart disease Father Cancer Brother Cancer Son CVA (cerebral vascular accident) Diabetes Brother TIA (transient ischemic attack) Sister Cancer kidney cancer Thyroid disorder Surgical History Status post right knee replacement Hx of cystoscopy History of arthroscopy of right knee History of cardiac catheterization History of open heart surgery History of cholecystectomy History of atrial septal defect repair History of appendectomy Status post laparoscopic Diogenes fundoplication ( 11/2018) History of hysterectomy Social History Smoking Status: Never smoker alcohol intake: never substance use type: does not use caffeine: Yes Type: coffee Number of servings: 1 what type of physical activity do you participate in: walking frequency: daily duration: 30-45 minutes/day seatbelt use: always do you feel safe at home: Yes ROS ROS Narrative GENERAL: Fatigue HEENT: denies headache, sinus congestion, or drainage, dysphagia RESPIRATORY: denies cough, sputum production, shortness of breath, dyspnea on exertion CARDIAC: denies chest pain, palpitations, orthopnea, PND GASTROINTESTINAL: Abdominal pain and nausea but no vomit GENITOURINARY: denies dysuria, urgency, frequency, heamaturia EXTREMITY (more content not included)... Normal [facility] normalized rat io (INR) calculationOrdered By: Tex Chavarria on 03-12-2025 INR Coag (Bld) [Relative time] 1.3 {INR} [facility] L499.0042on 03-12-2025 Trop T High Sen 12 ng/L Normal <=14 [facility] Comment on above: Performed By: #### L 500.2500, L100.0100, L501.4020 #### [facility] [address] [place], [address] L499.0043on 03-12-2025 Trop T High Sen 12 ng/L Normal <=14 [facility] Comment on above: Performed By: #### L 499.0043 #### [facility] [address] [place], [address] L501.4021on 03-12-2025 Trop T High Sen 13 ng/L Normal <=14 [facility] Comment on above: Performed By: #### L 500.2500, L100.0100, L501.4020 #### [facility] [address] [place], [address] L503.7505on 03-12-2025 Natriuretic peptide B (Bld) [Mass/Vol] 1002 pg/mL Normal <=1800 [facility] Comment on above: Result Comment: Hear t Failure Unlikely: < 300 pg/mL Heart Failure Likely < 50 Years: > 450 pg/mL 50-75 Years: > 900 pg/mL >75 Years: > 1800 pg/mL Performed By: #### L 500.2500, L100.0100, L501.4020 #### [facility] [address] [place], [address] Laboratory - Chemistry and C hemistry - challengeOrdered By: Tex Chavarria on 03-12-2025 AST [Catalytic activity/Vol] 24 U/L <32 [facility] Lipaseon 03-12-2025 Lipase [Catalytic activity/Vol] 80 U/L High 13-75 [facility] Comment on above: Result Comment: Kendra abrams note: LIPASE revised reference range effective 23. New Lipase methodology. Expected to produce lower values than the previous assay method. NEW Reference Range: 13 - 75 U/L Performed By: #### L 500.2500, L100.0100, L501.4020 #### [facility] [address] [place], [address] Lipase measurementOrdered By : Tex Chavarria on 03-12-2025 Lipase [Catalytic activity/Vol] 80 U/L High 13-75 [facility] Comment on above: Please note:LIPASE r evised reference range effective 23. New Lipase methodology. Expected to produce lower values than the previous assay method. NEW Reference Range: 13 - 75 U/L Natriuretic peptide.B prohor pearl N-Terminal [Mass/volume] in Serum or PlasmaOrdered By: Tex Chavarria on 03-12-2025 Natriuretic peptide.B prohormone N-Terminal [Mass/Vol] 1002 pg/mL <1800 [facility] Comment on above: Heart Failure Unlike ly: < 300 pg/mLHeart Failure Likely< 50 Years: > 450 pg/mL50-75 Years: > 900 pg/mL>75 Years: > 1800 pg/mL Partial Thromboplast Timeon 03-12-2025 aPTT Coag (Bld) [Time] 31.9 s Normal 24.1-36.2 [facility] Comment on above: Performed By: #### L 500.2500, L100.0100, L501.4020 #### [facility] [address] [place], [address] Prothrombin Time w/INRon INR Coag (PPP) [Relative time] 1.3 {INR} Normal [facility] Comment on above: Performed By: #### L 500.2500, L100.0100, L501.4020 #### [facility] [address] [place], [address] PT Coag (PPP) [Time] 16.4 s High 11.7-14.9 [facility] Comment on above: Performed By: #### L 500.2500, L100.0100, L501.4020 #### [facility] [address] [place], [address] Prothrombin timeOrdered By: Tex Chavarria on 03-12-2025 PT Coag (PPP) [Time] 16.4 s High 11.7-14.9 [facility] Serum globulin measurementOr dered By: Tex Chavarria on 03-12-2025 Globulin (S) [Mass/Vol] 3.1 g/dL 2.2-4.2 [facility] Serum or plasma alanine avery otransferase (ALT) measurementOrdered By: Tex Chavarria on 03-12-2025 ALT [Catalytic activity/Vol] 10 U/L <35 [facility] Serum or plasma albumin unruly urement (mass/volume)Ordered By: Tex Chavarria on 03-12-2025 Albumin [Mass/Vol] 4.0 g/dL 3.4-4.8 [facility] Serum or plasma albumin/glob ulin mass ratioOrdered By: Tex Chavarria on 03-12-2025 Albumin/Globulin [Mass ratio] 1.3 {ratio} 0.9-2.4 [facility] Serum or plasma alkaline javier sphatase measurementOrdered By: Tex Chavarria on 03-12-2025 ALP [Catalytic activity/Vol] 118 U/L High 35-104 [facility] TSH DL <= 0.005 mIU/L QnOrde red By: Anthony Owen on 03-12-2025 TSH Qn 3.660 uIU/mL 0.300-4.200 [facility] Thyroid Stim Hormone (TSH)on 03-12-2025 TSH 3.660 uIU/mL Normal 0.300-4.200 [facility] Comment on above: Performed By: #### L 500.2500, L100.0100, L501.4020 #### [facility] [address] [place], [address] Total proteinOrdered By: Clyde haylee Deon on 03-12-2025 Protein [Mass/Vol] 7.1 g/dL 5.9-8.4 [facility] Troponin T.cardiac [Mass/vol ume] in Serum or Plasma by High sensitivity methodOrdered By: Tex Chavarria on 03-12-2025 Troponin T.cardiac High sensitivity method [Mass/Vol] 12 ng/L <14 [facility] Troponin T.cardiac High sensitivity method [Mass/Vol] 12 ng/L <14 [facility] Troponin T.cardiac High sensitivity method [Mass/Vol] 13 ng/L <14 [facility] Magnetic resonance imaging r eportOrdered By: Yahri Moise on 01-26-2025 Study report [facility] Imaging Services [address] [place] [address] Spine Cervical (Routine) MR#: [id number] Acct: [id number] Name: RUBEN LOBO Rep #: [id number] : 1945 F 79 From: Coral Moise MD PCP: Dr. Rip De La Garza MD Status: REG CLI Study:Spine Cervical (Routine) Date of Exam: 01/26/25 Exam# [id number] Ordering Dr: Alexis De La Garza MD PROCEDURE: SPINE CERVICAL (ROUTINE) REASON FOR EXAM: CERVICAL PAIN S/P SURGICAL INTERVENTION AND FAILED PT IN PAST TECHNIQUE: Cervical spine MRI without intravenous gadolinium-based contrast. COMPARISON: 07/19/2024. FINDINGS: Cervical vertebral body heights are preserved. Prominent marrow edema within thedens and cudc-oeiswgd-grtr-ri ght anterior arch of C1 with small surrounding degenerative soft tissue pannus, similar to slightly increased from 07/08/2024. Severe loss of joint space between the anterior arch of C1 and the dens again noted. No significant malalignment. Operative changes of the upper thoracic spine better depicted on separately dictated MRI thoracic spine. Unremarkable cervical cord signal. C2-3: Mild left qvhl-gtsyizo-bfij-ri ght facet arthropathy. No significant spinal canal or foraminal stenosis. C3-4: Mild diffuse disc bulging. Mild facet arthropathy, zaox-gyzynue-sicw-ri ght. Minimal focal spinal canal stenosis. No significant foraminal stenosis. C4-5: Loss of disc height with diffuse disc bulging and superimposed central disc protrusion contacting the ventral cord. Mild focal spinal canal stenosis. Mild facet arthropathy. Mild/moderate right foraminal stenosis. C5-6: Small posterior central disc protrusion. Minimal focal spinal canal stenosis. Moderate right and mild/moderate left foraminal stenosis. C6-7: Diffuse disc bulging with tiny superimposed posterior central disc protrusion. Mild/moderate right foraminal stenosis. No significant spinal canal or left foraminal stenosis. C7-T1: Mild bilateral foraminal disc bulging. No significant spinal canal stenosis. Mild bilateral foraminal stenosis. Other: Cataract surgery. MRI/Spine Cervical (Routine) IMPRESSION: 1. Multilevel spondylosis as above, most prominent at C1-C2 with increasing associated marrow edema compared with 07/08/2024. No high-grade foraminal or spinal canal stenosis identified, however there is a posterior central disc protrusion at C4-C5 contacting the ventral cord. 2. Additional description as above. Reading Location: [id number] CC: Dr. Rip De La Garza MD ~ [employer] Supervisor: Signed [facility] Magnetic resonance imaging r eportOrdered By: Anthony Ryan on 01-26-2025 Study report [facility] Imaging Services [address] [place] [address] Spine Thoracic (Routine) MR#: [id number] Acct: [id number] Name: RUBEN LOBO Rep #: [id number] : 1945 F 79 From: Valentino Ryan MD PCP: Dr. Rip De La Garza MD Status: REG CLI Study:Spine Thoracic (Routine) Date of Exam: 01/26/25 Exam# [id number] Ordering Dr: Alexis De La Garza MD PROCEDURE: SPINE THORACIC (ROUTINE) REASON FOR EXAM: UPPER THORAX PAIN S/P SURGICAL INTERVENTION AND FAILED PT IN PAST TECHNIQUE: Noncontrast thoracic spine MRI. COMPARISON: None. FINDINGS: Vertebrae: Thoracic vertebral body heights are preserved. Vertebral body hemangiomata noted, by far most prominent at the T8 vertebral body. Bone marrow signal is otherwise unremarkable. Alignment: Normal. No spondylolisthesis. Spinal Cord: Thoracic spinal cord is of normal size and signal intensities. Disc spaces: Minimal to mild degenerative disc disease of the thoracic spine noted. A very mild disc protrusion is seen at the T7-T8 level. No significant degree of spinal canal stenosis or neural foraminal narrowing is noted. Very mild disc bulge noted at T12-L1, without associated spinal canal stenosis or neural foraminal narrowing. Moderate disc space narrowing is seen at this level. No significant disc bulge or herniation is seen at the remaining thoracic levels. Normal appearance of the thoracic cord is seen, including the conus medullaris. Paraspinal Tissues: Unremarkable. MRI/Spine Thoracic (Routine) IMPRESSION: 1. Minimal to mild multilevel thoracic spine degenerative disc disease. 2. No significant spinal canal stenosis or neural foraminal narrowing is seen. 3. Additional findings as noted Reading Location: [address] CC: Dr. Rip De La Garza MD ~ [employer] Supervisor: Signed [facility] Spine Cervical (Routine)on 0 01-26-2025 Spine Cervical (Routine) [facility] Imaging Services [address] [place] [address] [id number] Spine Cervical (Routine) MR#: [id number] Acct: [id number] Name: RUBEN LOBO Rep #: [id number] : 1945 F 79 From: Yahir Moise MD PCP: Dr. Rip De La Garza MD Status: REG CLI Study: Spine Cervical (Routine) Date of Exam: Exam# [id number] Ordering Dr: Rip De La Garza MD PROCEDURE: SPINE CERVICAL (ROUTINE) REASON FOR EXAM: CERVICAL PAIN S/P SURGICAL INTERVENTION AND FAILED PT IN PAST TECHNIQUE: Cervical spine MRI without intravenous gadolinium-based contrast. COMPARISON: 07/19/2024. FINDINGS: Cervical vertebral body heights are preserved. Prominent marrow edema within the dens and xovz-jilmrrs-czsd-ri ght anterior arch of C1 with small surrounding degenerative soft tissue pannus, similar to slightly increased from 07/08/2024. Severe loss of joint space between the anterior arch of C1 and the dens again noted. No significant malalignment. Operative changes of the upper thoracic spine better depicted on separately dictated MRI thoracic spine. Unremarkable cervical cord signal. C2-3: Mild left erid-cfdkfex-pkvo-ri ght facet arthropathy. No significant spinal canal or foraminal stenosis. C3-4: Mild diffuse disc bulging. Mild facet arthropathy, jeyw-vdhmffp-squm-ri ght. Minimal focal spinal canal stenosis. No significant foraminal stenosis. C4-5: Loss of disc height with diffuse disc bulging and superimposed central disc protrusion contacting the ventral cord. Mild focal spinal canal stenosis. Mild facet arthropathy. Mild/moderate right foraminal stenosis. C5-6: Small posterior central disc protrusion. Minimal focal spinal canal stenosis. Moderate right and mild/moderate left foraminal stenosis. C6-7: Diffuse disc bulging with tiny superimposed posterior central disc protrusion. Mild/moderate right foraminal stenosis. No significant spinal canal or left foraminal stenosis. C7-T1: Mild bilateral foraminal disc bulging. No significant spinal canal stenosis. Mild bilateral foraminal stenosis. Other: Cataract surgery. MRI/Spine Cervical (Routine) IMPRESSION: 1. Multilevel spondylosis as above, most prominent at C1-C2 with increasing associated marrow edema compared with 07/08/2024. No high-grade foraminal or spinal canal stenosis identified, however there is a posterior central disc protrusion at C4-C5 contacting the ventral cord. 2. Additional description as above. Reading Location: [id number] CC: Dr. Rip De La Garza MD [employer] Supervisor: Signed Normal [facility] Spine Thoracic (Routine)on 0 01-26-2025 Spine Thoracic (Routine) [facility] Imaging Services [address] [place] [address] Spine Thoracic (Routine) MR#: [id number] Acct: [id number] Name: RUBEN LOBO Rep #: [id number] : 1945 F 79 From: Anthony Barnard PCP: Dr. Rip De La Garza MD Status: REG CLI Study: Spine Thoracic (Routine) Date of Exam: Exam# [id number] Ordering Dr: Rip De La Garza MD PROCEDURE: SPINE THORACIC (ROUTINE) REASON FOR EXAM: UPPER THORAX PAIN S/P SURGICAL INTERVENTION AND FAILED PT IN PAST TECHNIQUE: Noncontrast thoracic spine MRI. COMPARISON: None. FINDINGS: Vertebrae: Thoracic vertebral body heights are preserved. Vertebral body hemangiomata noted, by far most prominent at the T8 vertebral body. Bone marrow signal is otherwise unremarkable. Alignment: Normal. No spondylolisthesis. Spinal Cord: Thoracic spinal cord is of normal size and signal intensities. Disc spaces: Minimal to mild degenerative disc disease of the thoracic spine noted. A very mild disc protrusion is seen at the T7-T8 level. No significant degree of spinal canal stenosis or neural foraminal narrowing is noted. Very mild disc bulge noted at T12-L1, without associated spinal canal stenosis or neural foraminal narrowing. Moderate disc space narrowing is seen at this level. No significant disc bulge or herniation is seen at the remaining thoracic levels. Normal appearance of the thoracic cord is seen, including the conus medullaris. Paraspinal Tissues: Unremarkable. MRI/Spine Thoracic (Routine) IMPRESSION: 1. Minimal to mild multilevel thoracic spine degenerative disc disease. 2. No significant spinal canal stenosis or neural foraminal narrowing is seen. 3. Additional findings as noted Reading Location: [address] CC: Dr. Rip De La Garza MD [employer] Supervisor: Signed Normal [facility] Office Visiton 01-05-2025 Follow-up visit [id number] Ruben Lobo 1945 F Date Provider Department Center 01/05/2025 [id number] [facility] None No family history on file Level of Service:85459 DE OFFICE/OUTPATIENT NEW HIGH MDM 60 MINUTES Reason for Visit and Comments: Atrial Flutter [101] - Atypical Other [0] - 1962 ASD closure Atrial Fibrillation [80] - PAF Hypertension [933149] Normal [facility] Progress Noteon 01-05-[address] [facility] [place] Cardiology/Electroph ysiology New Patient clinic Note Chief Complaint: Chief Complaint Patient presents with Atrial Flutter Atypical Other 1962 ASD closure Atrial Fibrillation PAF Hypertension History of Present Illness: Ruben Lobo is a 79 y.o. female referred here by Dr. Rodriguez for evaluation of her atrial tachyarrhythmias. She had an appointment in Nov 2024, but could not make it. As far as I can tell she had an ASD closure in 1962. She was diagnosed with atrial fibrillation in 2017 and had a CVN by Dr. Duran. She reports that she followed with him for a while, and records show that at least in 2018 she was on amiodarone. She does not remember the drug and she was off of it as of 2021. It appears that she went back into an atypical atrial flutter by ECG in Oct 2023 and has been in it by ECGs (Jun in 2023) and by a Holter monitor in January 2024 since then. In June 2024 she suffered a paraspinal hematoma with a neck injection for pain that required neurosurgical intervention. She was restarted on Eliquis soon after that. She presents today feeling at her baseline. She really cannot tell me when she may have gotten back into atrial flutter/fibrillation . She reports some fatigue over the last few weeks, but she denies chest pain, shortness of breath/MUÑOZ, decrease in exercise tolerance, palpitation, dizziness, or syncope. She takes care of her who needs total care because of severe parkinsonism. She does not exercise regularly, but can do all of her ADLs. Dr. Rodriguez increased her metoprolol to 50 twice daily in Sep 2024. She reports blood pressures in the 140-150 systolic at home and heart rates mostly in the 90s. Her EKG today shows probably typical atrial flutter, though the atrial cycle is ~200 bpm, with a VR in the 70s. ECGs from August and September 2024 (which I were able to review) show both typical and reverse typical a flutter with 2-1 conduction and a VR of 105 beats a minute. A 48-hour Holter in Jan 2024 shows the same with an avg VR of 95 bpm. An echo in August 2024 shows a normal LVEF of 60% mildly enlarged LA and a normal RA, and mild TR, MR, and AI. Assessment and Plan: 1. Longstanding Persistent Atrial Flutter: It appears that she may have been in this rhythm since at least October 2023. She denies symptoms other than some fatigue that has started over the last few weeks and does not seem associated with her rhythm. In addition, her heart rate appears better by today's ECG because of the increase in metoprolol to 50 twice daily. I wonder if that is contributing to some fatigue. I do not believe that a cardioversion or ablation will help her feel any better. I think the likelihood of recurrence given her ASD surgery and longstanding arrhythmia are high. I told her and her son today that rate control seems more appropriate in this case. I will increase the Cardizem to 180 mg daily 2. Hypertension: She may be a little nervous today, but her BP seems to be running a little high at home. The Cardizem should help with this as well. I have asked her and her son to keep a log of her BPs and heart rate for Dr. Rodriguez. I will see her one more time in 3 to 4 months to make sure that she is doing okay. 3. Paraspinal hematoma: This occurred in the setting of a neck injection for pain. She has been cleared to resume Eliquis and has been taking it without incident. Today we briefly spoke about a Watchman procedure because she asked me if she could stop the Eliquis. If she has another bleeding episode it would be reasonable to consider a left atrial appendage closure. Past Medical History: Past Medical History: Diagnosis Date A-fib ([facility]) ([facility]) 10/14/2024 On Eliquis Anxiety 10/14/2024 Congenital heart disease 11/11/1963 Mixed hyperlipidemia 07/09/2024 CLARISSE on CPAP 10/14/2024 Rheumatoid arthritis involving multiple sites ([facility]) ([facility]) 07/09/2024 Typical atrial flutter ([facility]) 10/14/2024 Past Surgical History Past Surgical History: Procedure Laterality Date APPENDECTOMY ASD REPAIR CHOLECYSTECTOMY HYSTERECTOMY KNEE ARTHROPLASTY Right DIOGENES FUNDOPLICATION Family History No family history on file. Social History Social History Tobacco Use Smoking status: Never Smokeless tobacco: Never Vaping Use Vaping status: Never Used Substance Use Topics Alcohol use: Never Drug use: Never Medications: Reviewed Allergies: Reviewed Review of Systems: All other systems were reviewed and are negative other than as noted in the HPI. Physical Examination: Vitals: Blood pressure (!) 154/100, pulse 77, height 5' (1.524 m), weight 144 lb 12.8 oz (65.7 kg), SpO2 96%. Constitutional: Appears well kept and looks stated age; in NAD Psychiatric: A &O x3 Mood is pleasant; Affect is appropriate Musculoskeletal: Normocephalic; no joint swelling; gait steady; 5/5 (more content not included)... Normal [facility] 12 Lead EKG performed by [facility] on 09-15-2024 12 Lead EKG performed by [facility] [address] [place] [address] 12 Lead EKG performed by [facility] 09/15/24806 MR#: [id number] Acct: [id number] Name: RUBEN LOBO Rep #: [id number] : 1945 79 From: Radha Rodriguez MD Attending Dr: Dr. Radha Rodriguez MD Status: DE P AMB Ordering Dr: Radha Rodriguez MD Date: 09/15/24 [place] [facility] [place]: F C Admitted: [facility]/12 Lead EKG performed by [facility] ECG Report Interpretation ------Atrial flutter -Diffuse ST depression + Nonspecific T-abnormality -Nondiagnostic. ABNORMAL Electronically signed on 09/15/2024 at 15:[address] Radha Rodriguez [employer] Version 8610 09/15/244 Date Radha Rodriguez MD CC: Dr. Rip De La Garza MD Date Dictated: 09/15/24806 Date Transcribed: 09/15/24806 [employer] Supervisor: Signed Normal [facility] Cardiology Visit Reporton Cardiology Visit Report [facility] [address] [place] [address] OFFICE VISIT Date of Service: 09/15/24 MR#: [id number] Acct: [id number] Name: RUBEN LOBO Andres Rep #: [id number] : 1945 Provider: Dr. Radha collier MD Age/Sex: 79/F Location: [facility] Status: Signed HPI HPI History of Present Illness Details: Ms. Lobo is seen here today for monitoring of her coronary disease and to review treatment options for her atypical atrial flutter. The patient has been documented to be in atrial flutter on EKG in October 2023 July 19, 2020 for August 18, 2024 and again today. Her EKG today shows atrial flutter with a heart rate of [address]-T wave changes and is really unchanged from her previous EKGs. Historically her EKGs have been read as sinus tach to 104 to 108 bpm. The patient has been on Eliquis and she had a pain injection after being off Eliquis for several days that resulted in a paraspinous hematoma requiring neuro surgical intervention. She has been recently cleared and is no longer having to wear her neck brace. The patient tells me that the neurosurgeon reported it was okay for her now to proceed with direct-current cardioversion if that was indicated. The patient has a history of an open ASD closure in 1962. She also has a history of hypertension. The patient had a Holter monitor done in January 2024 which showed atrial fibrillation and flutter with rare PVCs that was read as 100% atrial fibrillation. The patient's diary correlated with the rapid heart rates as palpitations. Recent echocardiogram done September 04, 2024. There is normal LV size and systolic function ejection fraction of 60% with no regional wall motion abnormality. Right ventricle was normal size and function left atrium was mildly enlarged there was normal right atrial size. 1+ mitral regurgitation was noted the tricuspid valve was normal with 1+ TR and right ventricular systolic pressure was estimated at 28. There was mild restriction of the pulmonic valve noted with 1+ pulmonic insufficiency. The patient comes in today with her son to discuss treatment options which I would recommend she be evaluated by electrophysiology. Intake Vital Signs 08/18/24 13:34 09/15/24 13:01 Height 5 ft 5 ft Weight: 112 lb BMI 21.9 BP 140/89 H Blood Pressure Location Lt brachial Position Sitting Respiration 18 Pulse 104 H Pulse Source Monitor Pulse Oximetry (%) 93 Oxygen Delivery Method room air Intake Visit Reasons: 6 WK FU Rock Breaker Required: No Is patient in pain?: No Allergies No Known Allergies Allergy (Verified 09/15/24 13:02) Medications ???Medication ???Instructions ???Recorded ???Confirmed ???Type sertraline 100 mg tablet 100 mg PO QHS 12/14/20 09/15/24 History magnesium 200 mg tablet 100 mg PO DAILY 12/18/23 09/15/24 History acetaminophen 500 mg tablet 1,000 mg PO Q8 PRN Pain 12/20/23 09/15/24 History metoprolol tartrate 50 mg tablet 50 mg PO BID This is a dose 03/02/24 09/15/24 Rx increase #180 tabs apixaban 5 mg tablet (Eliquis) 5 mg PO BID #180 tabs 04/07/24 09/15/24 Rx cholecalciferol (vitamin D3) 50 50 mcg PO DAILY 07/19/24 09/15/24 History mcg (2,000 unit) capsule diltiazem HCl 120 mg 120 mg PO DAILY BLOOD PRESSURE AND 07/19/24 09/15/24 History capsule,extended release 24 hr HEART menthol 0.44 %-zinc oxide 20.6 % topical 08/18/24 09/15/24 History topical ointment (Calmoseptine) pantoprazole 40 mg tablet,delayed 40 mg PO DAILY #90 tabs 08/19/24 09/15/24 Rx release Ejection fraction %: 60 Have you fallen in the past year?: Yes [facility] Medical History Postoperative hematoma Dehydration Dizziness Intractable pain UTI (urinary tract infection) Wears hearing aid Arthritis Restless legs Shortness of breath on exertion On amiodarone therapy Wears dentures Post-menopausal Depression Anxiety Rheumatoid arthritis History of hiatal hernia Gastric reflux Non-smoker CPAP (continuous positive airway pressure) dependence Sleep apnea History of pain when walking History of echocardiogram History of stress test Hypertension Cardiology follow-up encounter History of atrial fibrillation History of cardioversion CLARISSE (obstructive sleep apnea) Mixed hyperlipidemia care home current use of 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 drug Pulmonary hypertension Chronic cholecystitis with calculus Paroxysmal atrial fibrillation Essential (primary) hypertension Esophageal hiatal hernia 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, left care home current use of anticoagulant Atrial flutter GERD (gastroesophageal reflux disease) Surgical History ... [facility] Inital Evaluation (1) - PTon 09-14-2024 Inital Evaluation (1) - PT [facility] Physical Therapy [facility] [address] [place] [address] / REHABILITATION SERVICES INITIAL EVALUATION MR#: [id number] Acct: [id number] Name: RUBEN LOBO Rep #: [id number] : 1945 79 From: Roberto Cortez DPT Referring Dr.: Abdulaziz Banegas MD Status: REG RCR Insurance: [employer] PPO SELF PAY INSURANCE Patient's Visit Information Visit Information Visit Information: RUBEN LOBO is a 79 year old F referred to Physical Therapy by Abdulaziz Banegas MD with a diagnosis of cervicothoracic spinal stenosis. Date of Evaluation: 09/10/24 Physical Therapist: Roberto Cortez DPT Visit Plan Frequency: 2x /Week Duration: 6 Weeks Plan: 1) manual/IASTIM to reduce R sided mid trap, upper trap pain 2) light mid trap/upper trap activation to aid in improved posture 3) light progressive ROM of cervical and thoracic spine. Subjective Subjective: Pt. is here today for her initial evaluation with diagnosis of cervicothoracic spinal stenosis. Pt. reports having an injection on aug 08. She has a blood clot and have to have emergency removal. She had surgery the following day. Pt. was in hospital for 4 days. Pt. reports haivng several aylin in her thoracic and cervical spine. Those were removed 2 weeks ago. Pt. is still having pain her thoracic spine R worse than L. She reports no N/T noted. Pt. is on a 8Lb lifting restriction. She is sleeping okay, but does wake her up at night. Pt. was unsure to what surgery she had. Pt. is hopeful to reduce the pain in her neck and back and get back to all household activities. 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 Pain Thoracic spine: Pain Intensity (Out of 10): 6 Pain Intensity Range: 4 and 10 Comment: R side Objective Objective: POSTURE: Pt. has a general increased thoracic kyphosis. Pt. has increased pain with attempts to correct. FH posture as well. [place]ON: Pt. has healing incision from cervical throughout thoracic spine. No signs of infection. Good healing. Pt. has marked tenderness along thoracic erector spinae. She has increased pain at L mid trap and rhomboids as well as upper trap. NEURO: pt. has normal sensation in BUEs and throughout thoracic spine. ROM: Pt. has close to full B shoulder ROM without increase in symptoms. CERVICAL SPINE: pt. has mod loss with extension, min loss with flexion, mod/max loss with B sidebend and rotation. Pt. reports not much pain with cervical ROM, but marked stiffness. THORACIC SPINE: Pt. has increased NW symptoms with extension mod loss, rotation increase NW Mod loss bilat. MMT: Pt. has 4+/5 strength throughout BUEs, mild increase NW with mid trap testing. Balance/Special Test Scores Oswestry Neck Score: 22 Goals Goal 1:: LTG: Pt. to be I with HEP. Goal Time Frame: 4-6 Weeks Goal 2:: LTG: Pt. report decreased R sided thoracic pain allowing for increased tolerance with all daily activities. Goal Time Frame: 4-6 Weeks Goal 3:: STG: Pt. to sleep throughout the night without increase in symptoms. Goal Time Frame: 2-4 Weeks Goal 4:: LTG: Pt. to report no pain with all ADLs. Goal Time Frame: 4-6 Weeks Goal 5:: LTG: PT. to have increased cervical and thoracic ROM by 25% throughout. Goal Time Frame: 4-6 Weeks Rehabilitation Potential Physical Therapy Diagnosis: Pt. has signs and symptoms consistent with cervicothoracic spinal stenosis. Pt. has marked muscle pain after her subsequent surgery to remove blood clotting. Pt. has marked cervical and thoracic hypomobility as well. Pt. would benefit from manual to reduce muscle pain progressing into light muscle activiation to increase cervical/thoracic stability. Rehabilitation Potential: Good Anticipated Interventions Patient/Client Instruction: Educate patient on: Condition, Plan of Care, Risk Factors and Benefits of Fitness Program For the Purpose of:: To improve decision making, To facilitate caregiver knowledge, To improve self management, To prevent re-injury and To improve ability to perform tasks related to life management Therapeutic Exercise to Include: Strength training, Coordination, Postural training, Flexibilty training, Active ROM, [place] Exercises and Scapular Strength/Stabilizati on For the Purpose of:: To decrease pain, To increase ROM, To improve nutrient delivery to tissue, To increase oxygenation perfusion, To improve muscle performance and motor function, To improve ability to perform ADL's, To decrease soft tissue restriction and To increase flexibility/ROM Manual Therapy Techniques to Include: Soft tissue mobilization Comment: IASTIM For the Purpose of:: To decrease pain, To increase ROM, To improve nutrient delivery to tissue and To increase oxygenation perfusion Text: Thank you for the opportunity to evaluate your patient. For Medicare and (more content not included)... Normal [facility] Echo Completeon 09-04-2024 Echo Complete [facility] [address] [place] [address] Echo Complete 09/04/24 1307 MR#: [id number] Acct: [id number] Name: RUBEN LOBO Rep #: [id number] : 1945 79 From: Cory Montes MD Attending Dr: Dr. Radha Rodriguez MD Status: [facility] Ordering Dr: Radha Rodriguez MD Date: 09/04/24 Location: [facility] Sex: F C Admitted: Reason For Study: PAROXYSMAL AFIB Procedure This was a 2D Doppler, Color Flow transthoracic echocardiogram. Exam performed in department. Left Ventricle Normal LV size. The left ventricular ejection fraction is 60 %. No regional wall motion abnormalities noted. Right Ventricle Normal RV size. Normal systolic function. Atria The left atrium is mildly enlarged. Normal right atrium. Mitral Valve Mild (1+) eccentric mitral valve insufficiency. Tricuspid Valve Normal tricuspid valve. Mild (1+) tricuspid valve insufficiency. Right ventricular systolic pressure estimated to be 28 mmHg. Aortic Valve Trisinus/trileaflet aortic valve. Mild focal aortic valve calcification. Mild (1+) aortic valve insufficiency. Pulmonic Valve Mild restriction of the pulmonic valve. Mild stenosis of the pulmonic valve. Mild (1+) pulmonic valve insufficiency. Great Vessels Calcified aortic root. The pulmonary artery is normal size. Inferior vena cava collapse with respiration. Pericardium/Pleural No pericardial effusion. MMode/2D Measurements Calculations LVIDd: 4.4 cm IVSd: 0.90 cm Ao root diam: 3.3 cm LVIDs: 2.9 cm LVPWd: 0.98 cm FS: 35.1 % _ LAV(MOD-bp): 74.7 ml LVAd ap4: 22.2 cm2 LVAd ap2: 21.9 cm2 LAV(MOD-bp) Indexed: 51.2 ml/m2 LVLd ap4: 6.8 cm LVLd ap2: 7.9 cm LAV(MOD-sp2): 73.8 ml EDV(MOD-sp4): 64.0 ml EDV(MOD-sp2): 55.7 ml LAV(MOD-sp4): 72.1 ml EDV(sp4-el): 61.0 ml EDV(sp2-el): 51.9 ml LVAs ap4: 12.8 cm2 LVAs ap2: 12.1 cm2 LVLs ap4: 5.9 cm LVLs ap2: 6.5 cm ESV(MOD-sp4): 24.1 ml ESV(MOD-sp2): 20.8 ml ESV(sp4-el): 23.8 ml ESV(sp2-el): 19.1 ml EF(MOD-sp4): 62.4 % EF(MOD-sp2): 62.6 % EF(sp4-el): 61.0 % _ SV(MOD-sp4): 39.9 ml SV(MOD-sp2): 34.9 ml SV(sp4-el): 37.2 ml _ LA dimension(2D): 4.3 cm LA A4 area: 23.1 cm2 RA A4 area: 20.1 cm2 _ TAPSE: 2.0 cm Doppler Measurements Calculations MV E max bart: 116.2 cm/sec Ao V2 max: 116.3 cm/sec AI max bart: 421.4 cm/sec Ao max P.4 mmHg AI max P.0 mmHg Ao V2 mean: 75.0 cm/sec AI dec slope: 345.5 cm/sec2 Ao mean P.6 mmHg AI P1/2t: 357.3 msec Ao V2 VTI: 22.1 cm AV (velocity ratio): 0.91 _ LV V1 max: 90.0 cm/sec PA V2 max: 154.9 cm/sec PI dec slope: 262.9 cm/sec2 LV V1 max P.2 mmHg PA V2 mean: 105.5 cm/sec LV V1 mean P.6 mmHg LV V1 mean: 58.2 cm/sec LV V1 VTI: 20.2 cm _ TR max bart: 266.1 cm/sec TR max P.3 mmHg ECHO/Echo Complete Interpretation Summary Normal LV size. The left ventricular ejection fraction is 60 %. Mild restriction of the pulmonic valve. Mild stenosis of the pulmonic valve. Ordering Physician: Radha Rodriguez Referring Physician: Radha Rodriguez; Rip De La Garza Performed By: Ophelia Diaz, DORY, RVT 09/04/24 1636 Date Cory Montes MD CC: Dr. Rip De La Garza MD; Dr. Radha Rodriguez MD Date Dictated: 09/04/24 1307 Date Transcribed: 09/04/241635 [employer] Supervisor: Signed Normal [facility] Abdomen/Pelvis WITH Contrast on 08-28-2024 Abdomen/Pelvis WITH Contrast [facility] Imaging Services [address] [place] [id number] Abdomen/Pelvis WITH Contrast MR#: [id number] Acct: [id number] Name: RUBEN LOBO Andres Rep #: [id number] : 1945 F 79 From: Parker Barnard PCP: Dr. Rip De La Garza MD Status: [facility] Study: Abdomen/Pelvis WITH Contrast Date of Exam: Exam# [id number] Ordering Dr: Rip De La Garza MD [id number] EXAM: CT ABDOMEN AND PELVIS WITH INTRAVENOUS CONTRAST CLINICAL INDICATION: pancreas inflammation and diarrhea TECHNIQUE: Helically acquired images were obtained of the abdomen and pelvis with intravenous contrast. This CT exam was performed using one or more of the following dose reduction techniques: automated exposure control, adjustment of the mA and/or kV according to patient size, and/or use of iterative reconstruction technique. CONTRAST: Oral and amp; IV Readi-CAT and amp; 75mL Isovue-370 RADIATION DOSE: CTDIvol = 12.91 mGy, DLP = 424.65 mGy-cm COMPARISON: 9.14.22 FINDINGS: LOWER THORAX: There are calcifications of the coronary arteries. Left-sided pericardial calcifications. Lung bases are clear. ABDOMEN: LIVER: Unremarkable. Normal liver. GALLBLADDER AND BILE DUCTS: There is non-visualization of the gallbladder, which may be secondary to either contraction or a prior cholecystectomy. No intra- or extrahepatic biliary ductal dilation. PANCREAS: Unremarkable. No focal cystic or solid mass. Normal pancreas. SPLEEN: Unremarkable. Normal spleen. ADRENALS: Unremarkable. Normal bilateral adrenal glands. KIDNEYS AND URETERS: Unremarkable. Normal renal size and position. No hydronephrosis. No acute findings of the right kidney. No acute findings of the left kidney. STOMACH AND BOWEL: Stool throughout the colon. No stomach or bowel distention. No focal inflammatory change. Normal visualized stomach. Normal small intestine. PELVIS: APPENDIX: There is non-visualization of the appendix. BLADDER: Unremarkable. Normal urinary bladder. REPRODUCTIVE: There is absence of the uterus consistent with a prior hysterectomy. ABDOMEN and PELVIS: INTRAPERITONEAL SPACE: Unremarkable. No ascites or other fluid collection. No free air. BONES/JOINTS: There are multi-level degenerative changes of the thoracic spine. There are diffuse degenerative changes of the visualized lumbar spine. No suspicious lytic or blastic abnormality. SOFT TISSUES: There is an umbilical hernia containing fat. VASCULATURE: There is atherosclerotic calcification of the aortic arch with tortuosity and elongation of the aortic arch and descending thoracic aorta. There are calcifications of the abdominal aorta. This is consistent for atherosclerotic disease. There is no abdominal aortic aneurysm. Normal pulmonary arteries. LYMPH NODES: Unremarkable. No enlarged lymph nodes. CT/Abdomen/Pelvis WITH Contrast IMPRESSION: No acute findings in the abdomen or pelvis. Electronically Signed: Parker Hunt MD at 15:35 EDT , CC: Dr. Rip De La Garza MD [employer] Supervisor: Signed Normal [facility] CREATININE FINGERSTICKon CREATININE WB < 1.0 Normal 0.55-1.02 [facility] Comment on above: Performed By: #### L 500.2500, L100.0100, L501.4020 #### [facility] [address] [place], [address] EGFR WB > 60.0000 Normal >60 [facility] Comment on above: Performed By: #### L 500.2500, L100.0100, L501.4020 #### [facility] [address] [place], [address] 12 Lead EKG performed by [facility] on 08-18-2024 12 Lead EKG performed by [facility] [address] [place] [address] 12 Lead EKG performed by [facility] 08/18/2434 MR#: [id number] Acct: [id number] Name: RUBEN LOBO Rep #: [id number] : 1945 79 From: Radha Rodriguez MD Attending Dr: Dr. Radha Rodriguez MD Status: DE P AMB Ordering Dr: Radha Rodriguez MD Date: 08/18/24 [place] [facility] [place]: F C Admitted: BMS/12 Lead EKG performed by [facility] ECG Report Interpretation ------Atypical Atrial Flutter with 2:1 conduction Nonspecific T-abnormality ABNORMAL Electronically signed on 08/18/2024 at 14:[address] Radha Rodriguez [employer] Version 8610 08/18/24 1429 Date Radha Rodriguez MD CC: Dr. Rip De La Garza MD Date Dictated: 08/18/24933 Date Transcribed: 08/18/24933 [employer] Supervisor: Signed Normal [facility] Cardiology Visit Reporton Cardiology Visit Report [facility] [address] [place], [place] [address] OFFICE VISIT Date of Service: 08/18/24 MR#: [id number] Acct: [id number] Name: RUBEN LOBO Rep #: [id number] : 1945 Provider: Dr. Radha collier MD Age/Sex: 79/F Location: [facility] Status: Signed HPI HPI History of Present Illness Details: Ruben Lobo is a 79-year-old white female with a history of paroxysmal atrial fibrillation/flutter status post synchronized biphasic DC cardioversion (2015), ASD status post repair (1962), hyperlipidemia, and hypertension. Patient comes in today for 6-month follow-up visit. She actually had an epidural injection on August 09 which resulted in a paraspinous hematoma requiring emergent neurosurgical intervention. She had been off of her Eliquis for 4 days prior to the episode of dural injection. And the Eliquis was reinstituted 2 to 3 days after her neurosurgical surgery. She believes that was around August 12, 2024. The patient sometimes is aware when she is in atrial fibrillation she currently denies any palpitations. However, EKG done in the office today shows atypical flutter with 2-1 AV conduction and nonspecific ST and T wave changes. She is not aware other than the fact that she knows her heart rate is in the 100 range. It is 104 on the EKG with a flutter rate of 200. The patient is on a combination of diltiazem and metoprolol. Blood pressure is well-controlled at 117/77. I do not have an op report from her recent hospitalization at [facility]. She was not aware that she was in anything other than sinus tach. She is still wearing a c-collar brace. She is to follow-up with the neurosurgeon next week. Her [id number] score is 4. Intake Vital Signs 07/08/24 16:08 07/20/24 14:14 08/18/24 13:34 Height 5 ft 1 in 5 ft 5 ft Weight: 111 lb BMI 21.7 BP 117/77 Blood Pressure Location Lt brachial Position Sitting Respiration 18 Pulse 104 H Pulse Source Monitor Pulse Oximetry (%) 97 Oxygen Delivery Method room air Intake Visit Reasons: 6 M FU Rock Breaker Required: No Accompanied by: Self Is patient in pain?: No Allergies No Known Allergies Allergy (Verified 08/18/24 13:34) Medications ???Medication ???Instructions ???Recorded ???Confirmed ???Type pantoprazole 40 mg tablet,delayed 40 mg PO DAILY 12/14/20 08/18/24 History release sertraline 100 mg tablet 100 mg PO QHS 12/14/20 08/18/24 History magnesium 200 mg tablet 100 mg PO DAILY 12/18/23 08/18/24 History acetaminophen 500 mg tablet 1,000 mg PO Q8 PRN Pain 12/20/23 08/18/24 History metoprolol tartrate 50 mg tablet 50 mg PO BID This is a dose 03/02/24 08/18/24 Rx increase #180 tabs apixaban 5 mg tablet (Eliquis) 5 mg PO BID #180 tabs 04/07/24 08/18/24 Rx cholecalciferol (vitamin D3) 50 50 mcg PO DAILY 07/19/24 08/18/24 History mcg (2,000 unit) capsule diltiazem HCl 120 mg 120 mg PO DAILY BLOOD PRESSURE AND 07/19/24 08/18/24 History capsule,extended release 24 hr HEART indapamide 1.25 mg tablet mg PO QDAY 08/18/24 08/18/24 History menthol 0.44 %-zinc oxide 20.6 % topical 08/18/24 08/18/24 History topical ointment (Calmoseptine) Ejection fraction %: 55 Have you fallen in the past year?: Yes [facility] Medical History Postoperative hematoma Dehydration Dizziness Intractable pain UTI (urinary tract infection) Wears hearing aid Arthritis Restless legs Shortness of breath on exertion On amiodarone therapy Wears dentures Post-menopausal Depression Anxiety Rheumatoid arthritis History of hiatal hernia Gastric reflux Non-smoker CPAP (continuous positive airway pressure) dependence Sleep apnea History of pain when walking History of echocardiogram History of stress test Hypertension Cardiology follow-up encounter History of atrial fibrillation History of cardioversion CLARISSE (obstructive sleep apnea) Mixed hyperlipidemia care home current use of 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 drug Pulmonary hypertension Chronic cholecystitis with calculus Paroxysmal atrial fibrillation Essential (primary) hypertension Esophageal hiatal hernia 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, left 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 Normal [facility] Celiac Disease Profileon ENDOMYSIAL IGA Negative Normal Negative [facility] Comment on above: Performed By: #### L 3410.2400, L5.0 ####[facility] [id number] [place], [place], [id number] IMMUNOGLOB A QN 539 mg/dL High 64-422 [facility] Comment on above: Result Comment: Perf ormed at: CB - [facility] [address] [id number] Senior Payroll Manager: Marcelo Willard PhD, Phone: [phone] Performed By: #### L 3410.2400, L5.0 ####[facility] [id number] [place], [place], [id number] tTG IGA <2 Normal 0-3 [facility] Comment on above: Result Comment: Nega tive 0 - 3 Weak Positive 4 - 10 Positive >10 Tissue Transglutaminase (tTG) has been identified as the endomysial antigen. Studies have demonstr- ated that endomysial IgA antibodies have over 99% specificity for gluten sensitive enteropathy. Performed By: #### L 3410.2400, L5.2450 ####[facility] [address] [place], [place], [id number] CBC W/Diff, Automatedon 07-13 Absolute Lymph 1.24 X10 3/uL Normal 0.83-4.51 [facility] Comment on above: Order Comment: 'TROP ' Serial specimen #1, #2 or #3: 1 Performed By: #### L 500.2500, L100.0100, L501.4020 #### [facility] [address] [place], [address] Absolute Neut 2.9 X10 3/uL Normal 2.0-7.7 [facility] Comment on above: Order Comment: 'TROP ' Serial specimen #1, #2 or #3: 1 Performed By: #### L 500.2500, L100.0100, L501.4020 #### [facility] [address] [place], [address] Basophils/100 WBC (Bld) 0.6 % Normal 0-1 [facility] Comment on above: Order Comment: 'TROP ' Serial specimen #1, #2 or #3: 1 Performed By: #### L 500.2500, L100.0100, L501.4020 #### [facility] [address] [place], [address] Eosinophils/100 WBC (Bld) 1.5 % Normal 0-5 [facility] Comment on above: Order Comment: 'TROP ' Serial specimen #1, #2 or #3: 1 Performed By: #### L 500.2500, L100.0100, L501.4020 #### [facility] [address] [place], [address] Erythrocyte distribution width (RBC) [Ratio] 17.9 % High 11.6-14.6 [facility] Comment on above: Order Comment: 'TROP ' Serial specimen #1, #2 or #3: 1 Performed By: #### L 500.2500, L100.0100, L501.4020 #### [facility] [address] [place], [address] Hematocrit (Bld) [Volume fraction] 37.6 % Normal 37-47 [facility] Comment on above: Order Comment: 'TROP ' Serial specimen #1, #2 or #3: 1 Performed By: #### L 500.2500, L100.0100, L501.4020 #### [facility] [address] [place], [address] Hemoglobin (Bld) [Mass/Vol] 11.5 g/dL Low 12.0-15.0 [facility] Comment on above: Order Comment: 'TROP ' Serial specimen #1, #2 or #3: 1 Performed By: #### L 500.2500, L100.0100, L501.4020 #### [facility] [address] [place], [address] IG% 0.400 Normal 0.0-0.9 [facility] Comment on above: Order Comment: 'TROP ' Serial specimen #1, #2 or #3: 1 Result Comment: IG% - Immature Granulocytes (promyelocytes, myelocytes and metamyelocytes) > 1% indicates that a LEFT SHIFT is Present. Performed By: #### L 500.2500, L100.0100, L501.4020 #### [facility] [address] [place], [address] Lymphocytes/100 WBC (Bld) 26.7 % Normal 19-41 [facility] Comment on above: Order Comment: 'TROP ' Serial specimen #1, #2 or #3: 1 Performed By: #### L 500.2500, L100.0100, L501.4020 #### [facility] [address] [place], [address] MCH (RBC) [Entitic mass] 30.0 pg Normal 27.0-32.0 [facility] Comment on above: Order Comment: 'TROP ' Serial specimen #1, #2 or #3: 1 Performed By: #### L 500.2500, L100.0100, L501.4020 #### [facility] [address] [place], [address] MCHC (RBC) [Mass/Vol] 30.6 g/dL Low 32-36 [facility] Comment on above: Order Comment: 'TROP ' Serial specimen #1, #2 or #3: 1 Performed By: #### L 500.2500, L100.0100, L501.4020 #### [facility] [address] [place], [address] MCV (RBC) [Entitic vol] 98.2 fL Normal 81-99 [facility] Comment on above: Order Comment: 'TROP ' Serial specimen #1, #2 or #3: 1 Performed By: #### L 500.2500, L100.0100, L501.4020 #### [facility] [address] [place], [address] Monocytes/100 WBC (Bld) 8.2 % Normal 0-10 [facility] Comment on above: Order Comment: 'TROP ' Serial specimen #1, #2 or #3: 1 Performed By: #### L 500.2500, L100.0100, L501.4020 #### [facility] [address] [place], [address] Neutrophils/100 WBC (Bld) 62.6 % Normal 47-70 [facility] Comment on above: Order Comment: 'TROP ' Serial specimen #1, #2 or #3: 1 Performed By: #### L 500.2500, L100.0100, L501.4020 #### [facility] [address] [place], [address] Nucleated RBC (Bld) [#/Vol] 0 10*3/uL Normal 0-5 [facility] Comment on above: Order Comment: 'TROP ' Serial specimen #1, #2 or #3: 1 Performed By: #### L 500.2500, L100.0100, L501.4020 #### [facility] [address] [place], [address] Platelet mean volume (Bld) [Entitic vol] 11.3 fL Normal 6.2-12.0 [facility] Comment on above: Order Comment: 'TROP ' Serial specimen #1, #2 or #3: 1 Performed By: #### L 500.2500, L100.0100, L501.4020 #### [facility] [address] [place], [address] Platelets (Bld) [#/Vol] 178 10*3/uL Normal 150-450 [facility] Comment on above: Order Comment: 'TROP ' Serial specimen #1, #2 or #3: 1 Performed By: #### L 500.2500, L100.0100, L501.4020 #### [facility] [address] [place], [address] RBC (Bld) [#/Vol] 3.83 10*6/uL Low 4.2-5.4 [facility] Comment on above: Order Comment: 'TROP ' Serial specimen #1, #2 or #3: 1 Performed By: #### L 500.2500, L100.0100, L501.4020 #### [facility] [address] [place], [address] RDW SD 63.0 fl High 35.1-43.9 [facility] Comment on above: Order Comment: 'TROP ' Serial specimen #1, #2 or #3: 1 Performed By: #### L 500.2500, L100.0100, L501.4020 #### [facility] [address] [place], [address] WBC (Bld) [#/Vol] 4.6 10*3/uL Normal 4.4-11.0 [facility] Comment on above: Order Comment: 'TROP ' Serial specimen #1, #2 or #3: 1 Performed By: #### L 500.2500, L100.0100, L501.4020 #### [facility] [address] [place], [address] Ferritinon 07-31-2024 Ferritin [Mass/Vol] 88 ng/mL Normal 8-252 [facility] Comment on above: Order Comment: 'TROP ' Serial specimen #1, #2 or #3: 1 Performed By: #### L 500.2500, L100.0100, L501.4020 #### [facility] [address] [place], [address] Iron Binding Capacity,Totalo n 07-31-2024 TIBC 404 ug/dL Normal 250-450 [facility] Comment on above: Order Comment: 'TROP ' Serial specimen #1, #2 or #3: 1 Performed By: #### L 500.2500, L100.0100, L501.4020 #### [facility] [address] [place], [address] Lipaseon 07-31-2024 Lipase [Catalytic activity/Vol] 174 U/L High 13-75 [facility] Comment on above: Order Comment: Order Date: 07/23/24Order Info: [id number] - TIBCOrder Info: [id number] - DONY Result Comment: Kendra abrams note: LIPASE revised reference range effective 23. New Lipase methodology. Expected to produce lower values than the previous assay method. NEW Reference Range: 13 - 75 U/L Performed By: #### L 3410.2400, L501.2450 ####[facility] [id number] [place], [address] Retic Panelon 07-31-2024 IM RET FRACTION 18.20 High 3.00-15.90 [facility] Comment on above: Order Comment: 'TROP ' Serial specimen #1, #2 or #3: 1 Performed By: #### L 500.2500, L100.0100, L501.4020 #### [facility] [address] [place], [address] RET-HE 31.9 pg Normal 30-35 [facility] Comment on above: Order Comment: 'TROP ' Serial specimen #1, #2 or #3: 1 Performed By: #### L 500.2500, L100.0100, L501.4020 #### [facility] [address] [place], [address] Retic Count 4.98 High 0.5-1.5 [facility] Comment on above: Order Comment: 'TROP ' Serial specimen #1, #2 or #3: 1 Performed By: #### L 500.2500, L100.0100, L501.4020 #### [facility] [address] [place], [address] [facility] 07-27-2024 [facility] Telephone ([facility]CS[facility]) RUBEN LOBO ([id number]) 1945 F Date Time Provider Department 07/27/24 FRANCES VANN HCSIND During your visit today, we recorded the following information about you: Frances Vann, [employer] 07/27/2024 11:35 AM Signed Unmade PT visit today due to patients being admitted to hospital. Allergies As of Date: 07/27/2024 (No Known Allergies) Date Reviewed: 07/23/2024 Reviewed by: Felicia Caicedo OT - Fully Assessed Reason for Visit: Home Care [4073] Cmt: Unmade PT visit Prescriptions as of 07/27/2024 - apixaban (ELIQUIS) 5 mg tab(s) Take 5 mg by mouth two times a day. - cephALEXin (KEFLEX) 500 mg capsule Take 500 mg by mouth three times a day. - HYDROcodone-acetamin ophen (NORCO) 5-325 mg per tablet Take 1 tablet by mouth every 6 hours as needed for pain. - metoprolol tartrate, short acting, (LOPRESSOR) 50 mg tablet Take 50 mg by mouth two times a day. - cholecalciferol (VITAMIN D-3) 50 mcg (2,000 unit) tablet Take 2,000 Units by mouth once daily. - magnesium oxide 400 mg magnesium tab Take 1 tablet by mouth once daily. - acetaminophen (TYLENOL) 500 mg tablet Take 1,000 mg by mouth every 8 hours as needed for pain. - ascorbic acid, vitamin C, (VITAMIN C) 500 mg tablet Take 500 mg by mouth once daily. - pantoprazole DR (PROTONIX) 40 mg tablet Take 40 mg by mouth once daily. - denosumab (PROLIA) 60 mg/mL syrg Inject 60 mg subcutaneously once every 6 months. Patient should start on July 15, 2024. - diltiazem (CARDIZEM) 120 mg tablet Take 120 mg by mouth four times daily. - sertraline (ZOLOFT) 50 mg tablet Take 100 mg by mouth once daily. Meds Comments as of 07/22/2024: 07/22/24. 2 new medications: 1. Hydrocodone- acetaminophen 5-325mg. 1 tablet by mouth every 6 hours as needed for pain. 2. Keflex 500mg 1 capsule by mouth 3 times a day. 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] 05/13/2018 Essential hypertension [I10] 05/13/2018 Pseudophakia of both eyes [Z96.1] 04/28/2019 A-fib (HCC) [I48.91] Anxiety [F41.9] Congenital heart disease [Q24.9] 1964 CLARISSE on CPAP [G47.33] Epidural hematoma (HCC) [S06.4XAA] 07/08/2024 Hematoma, epidural (HCC) [S06.4XAA] 07/08/2024 History of hiatal hernia [Z87.19] 07/09/2024 Mixed hyperlipidemia [E78.2] 07/09/2024 Rheumatoid arthritis involving multiple sites (*07/09/2024 Depression [F32.A] 07/09/2024 Pain of cervical spine [M54.2] 07/09/2024 Hypomagnesemia [E83.42] 07/09/2024 Encounter Status:Closed by FRANCES VANN on 07/27/24 Normal [facility] [place] Culture, Blood (WB)on 2023 CUB No growth in 5 days. Normal [facility] Comment on above: Performed By: #### L 503.6005 #### [facility] [address] [place], [address] CBC W/Diff, Automatedon 07-12-2023 Absolute Lymph 1.46 X10 3/uL Normal 0.83-4.51 [facility] Comment on above: Performed By: #### L 500.2500, L100.0100, L501.4020 #### [facility] [address] [place], [address] Absolute Neut 6.5 X10 3/uL Normal 2.0-7.7 [facility] Comment on above: Performed By: #### L 500.2500, L100.0100, L501.4020 #### [facility] [address] [place], [address] Basophils/100 WBC (Bld) 0.3 % Normal 0-1 [facility] Comment on above: Performed By: #### L 500.2500, L100.0100, L501.4020 #### [facility] [address] [place], [address] Eosinophils/100 WBC (Bld) 0.8 % Normal 0-5 [facility] Comment on above: Performed By: #### L 500.2500, L100.0100, L501.4020 #### [facility] [address] [place], [address] Erythrocyte distribution width (RBC) [Ratio] 15.4 % High 11.6-14.6 [facility] Comment on above: Performed By: #### L 500.2500, L100.0100, L501.4020 #### [facility] [address] [place], [address] Hematocrit (Bld) [Volume fraction] 27.2 % Low 37-47 [facility] Comment on above: Performed By: #### L 500.2500, L100.0100, L501.4020 #### [facility] [address] [place], [address] Hemoglobin (Bld) [Mass/Vol] 8.4 g/dL Low 12.0-15.0 [facility] Comment on above: Performed By: #### L 500.2500, L100.0100, L501.4020 #### [facility] [address] [place], [address] IG% 0.600 Normal 0.0-0.9 [facility] Comment on above: Result Comment: IG% - Immature Granulocytes (promyelocytes, myelocytes and metamyelocytes) > 1% indicates that a LEFT SHIFT is Present. Performed By: #### L 500.2500, L100.0100, L501.4020 #### [facility] [address] [place], [address] Lymphocytes/100 WBC (Bld) 16.6 % Low 19-41 [facility] Comment on above: Performed By: #### L 500.2500, L100.0100, L501.4020 #### [facility] [address] [place], [address] MCH (RBC) [Entitic mass] 29.5 pg Normal 27.0-32.0 [facility] Comment on above: Performed By: #### L 500.2500, L100.0100, L501.4020 #### [facility] [address] [place], [address] MCHC (RBC) [Mass/Vol] 30.9 g/dL Low 32-36 [facility] Comment on above: Performed By: #### L 500.2500, L100.0100, L501.4020 #### [facility] [address] [place], [address] MCV (RBC) [Entitic vol] 95.4 fL Normal 81-99 [facility] Comment on above: Performed By: #### L 500.2500, L100.0100, L501.4020 #### [facility] [address] [place], [address] Monocytes/100 WBC (Bld) 7.8 % Normal 0-10 [facility] Comment on above: Performed By: #### L 500.2500, L100.0100, L501.4020 #### [facility] [address] [place], [address] Neutrophils/100 WBC (Bld) 73.9 % High 47-70 [facility] Comment on above: Performed By: #### L 500.2500, L100.0100, L501.4020 #### [facility] [address] [place], [address] Nucleated RBC (Bld) [#/Vol] 0 10*3/uL Normal 0-5 [facility] Comment on above: Performed By: #### L 500.2500, L100.0100, L501.4020 #### [facility] [address] [place], [address] Platelet mean volume (Bld) [Entitic vol] 10.7 fL Normal 6.2-12.0 [facility] Comment on above: Performed By: #### L 500.2500, L100.0100, L501.4020 #### [facility] [address] [place], [address] Platelets (Bld) [#/Vol] 142 10*3/uL Low 150-450 [facility] Comment on above: Performed By: #### L 500.2500, L100.0100, L501.4020 #### [facility] [address] [place] [place], [address] RBC (Bld) [#/Vol] 2.85 10*6/uL Low 4.2-5.4 [facility] Comment on above: Performed By: #### L 500.2500, L100.0100, L501.4020 #### [facility] [address] [place], [address] RDW SD 53.0 fl High 35.1-43.9 [facility] Comment on above: Performed By: #### L 500.2500, L100.0100, L501.4020 #### [facility] [address] [place], [address] WBC (Bld) [#/Vol] 8.8 10*3/uL Normal 4.4-11.0 [facility] Comment on above: Performed By: #### L 500.2500, L100.0100, L501.4020 #### [facility] [address] [place], [address] CNPNon 07-21-2024 CNPN Telephone (HCSIND) RUBEN LOBO ([id number]) 1945 F Date Time Provider Department 07/21/24 RIP DE LA GARZA HCSIND During your visit today, we recorded the following information about you: Dory العراقي LPN 07/21/2024 2:[address] De La Garza's office, spoke with Roberta, advised we will be resuming care on 07/23/24. She confirmed and will Dr De La Garza know. Allergies As of Date: 07/21/2024 (No Known Allergies) Date Reviewed: 07/16/2024 Reviewed by: Pratima Veras, PT - Fully Assessed Reason for Visit: Home Care [4073] Cmt: Resumption of Care Prescriptions as of 07/22/2024 - metoprolol tartrate, short acting, (LOPRESSOR) 50 mg tablet Take 50 mg by mouth two times a day. - cholecalciferol (VITAMIN D-3) 50 mcg (2,000 unit) tablet Take 2,000 Units by mouth once daily. - magnesium oxide 400 mg magnesium tab Take 1 tablet by mouth once daily. - acetaminophen (TYLENOL) 500 mg tablet Take 1,000 mg by mouth every 8 hours as needed for pain. - ascorbic acid, vitamin C, (VITAMIN C) 500 mg tablet Take 500 mg by mouth once daily. - pantoprazole DR (PROTONIX) 40 mg tablet Take 40 mg by mouth once daily. - denosumab (PROLIA) 60 mg/mL syrg Inject 60 mg subcutaneously once every 6 months. Patient should start on July 15, 2024. - diltiazem (CARDIZEM) 120 mg tablet Take 120 mg by mouth four times daily. - sertraline (ZOLOFT) 50 mg tablet Take 100 mg by mouth once daily. 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] 05/13/2018 Essential hypertension [I10] 05/13/2018 Pseudophakia of both eyes [Z96.1] 04/28/2019 A-fib (HCC) [I48.91] Anxiety [F41.9] Congenital heart disease [Q24.9] 1964 CLARISSE on CPAP [G47.33] Epidural hematoma (HCC) [S06.4XAA] 07/08/2024 Hematoma, epidural (HCC) [S06.4XAA] 07/08/2024 History of hiatal hernia [Z87.19] 07/09/2024 Mixed hyperlipidemia [E78.2] 07/09/2024 Rheumatoid arthritis involving multiple sites (*07/09/2024 Depression [F32.A] 07/09/2024 Pain of cervical spine [M54.2] 07/09/2024 Hypomagnesemia [E83.42] 07/09/2024 Encounter Status:Closed by DORY العراقي on 07/21/24 [facility] Telephone (HCSIND) RUBEN LOBO ([id number]) 1945 F Date Time Provider Department 07/21/24 ERIN CHISHOLM HCSIND During your visit today, we recorded the following information about you: Erin Chisholm 07/21/2024 12:44 PM Signed Date/Time: 07/21/2024 12:42 PM Spoke with Jaxon @ phone #: [phone] - Preferred # for contact: [phone] Have you received help from a home care company in the last 60 days? [facility] Are you agreeable to [facility] services? yes What address will we be seeing you at? [address] [place] [id number] Do you have any upcoming appointments or things we need to schedule around? Not sure Do you have a teachable CG or can you manage your care independently? Allergies As of Date: 07/21/2024 (No Known Allergies) Date Reviewed: 07/16/2024 Reviewed by: Pratima Veras, PT - Fully Assessed Reason for Visit: Home Care [4073] Cmt: Confirmation Call Prescriptions as of 07/21/2024 - metoprolol tartrate, short acting, (LOPRESSOR) 50 mg tablet Take 50 mg by mouth two times a day. - cholecalciferol (VITAMIN D-3) 50 mcg (2,000 unit) tablet Take 2,000 Units by mouth once daily. - magnesium oxide 400 mg magnesium tab Take 1 tablet by mouth once daily. - acetaminophen (TYLENOL) 500 mg tablet Take 1,000 mg by mouth every 8 hours as needed for pain. - ascorbic acid, vitamin C, (VITAMIN C) 500 mg tablet Take 500 mg by mouth once daily. - pantoprazole DR (PROTONIX) 40 mg tablet Take 40 mg by mouth once daily. - denosumab (PROLIA) 60 mg/mL syrg Inject 60 mg subcutaneously once every 6 months. Patient should start on July 15, 2024. - diltiazem (CARDIZEM) 120 mg tablet Take 120 mg by mouth four times daily. - sertraline (ZOLOFT) 50 mg tablet Take 100 mg by mouth once daily. 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] 05/13/2018 Essential hypertension [I10] 05/13/2018 Pseudophakia of both eyes [Z96.1] 04/28/2019 A-fib (HCC) [I48.91] Anxiety [F41.9] Congenital heart disease [Q24.9] 1964 CLARISSE on CPAP [G47.33] Epidural hematoma (HCC) [S06.4XAA] 07/08/2024 Hematoma, epidural (HCC) [S06.4XAA] 07/08/2024 History of hiatal hernia [Z87.19] 07/09/2024 Mixed hyperlipidemia [E78.2] 07/09/2024 Rheumatoid arthritis involving multiple sites (*07/09/2024 Depression [F32.A] 07/09/2024 Pain of cervical spine [M54.2] 07/09/2024 Hypomagnesemia [E83.42] 07/09/2024 Encounter Status:Closed by ERIN CHISHOLM on 07/21/24 Normal [facility] [place] Discharge Instructionon - Discharge Instruction [facility] Medical Records Department [address] [place] [address] Instructions for Home/Discharge Instructions 07/21/24 1220 MR#: [id number] Acct: [id number] Name: RUBEN LOBO Rep #: [id number] : 1945 79 From: Yahir Thrasher DO PCP: Dr. Rip De La Garza MD Status:ADM IN Discharge Instructions Diet Discharge Diet: No restrictions Activity Discharge Activity: Return to Normal Activity Weight Bearing Status: Full weight bearing Follow Up Care Test Results: Test results from this visit will be discussed in further detail at your follow-up appointment, if applicable. Discharge Plan Admission Admit Date/Time: 07/19/24 17:33 Primary Reason for Your Visit: cystitis, back pain Attending Provider: Yahir Thrasher Primary Care Provider: Rip De La Garza Consulting Providers: Mady Ricardo Discharge Orders/Prescriptions Prescriptions: New hydrocodone-acetamin ophen 5-325 mg tablet 1 tab PO Q6H PRN (Reason: pain) 4 Days Qty: 14 0RF cephalexin 500 mg capsule 500 mg PO TID Qty: 15 0RF Rx Instructions: start on 07/22/24 Continued sertraline 100 mg tablet 100 mg PO QHS pantoprazole 40 mg tablet,delayed release (DR/EC) 40 mg PO DAILY acetaminophen 500 mg tablet 1,000 mg PO Q8 PRN (Reason: Pain) Patient Comments: pt states 2-3 tabs at a time magnesium 200 mg tablet 100 mg PO DAILY tramadol 50 mg tablet 50 mg PO Q4H PRN cholecalciferol (vitamin D3) 50 mcg (2,000 unit) capsule 50 mcg PO DAILY diltiazem HCl 120 mg capsule,extended release 24hr 120 mg PO DAILY metoprolol tartrate 50 mg tablet 50 mg PO BID Qty: 180 3RF Eliquis 5 mg tablet 5 mg PO BID Qty: 180 3RF Referrals / Follow Up: Rip De La Garza MD [Primary Care Provider] - Within 2 Weeks (you will need a repeat CBC ordered) Disposition Disposition (needs filled in before D/C Order can be placed): Home, Self Care 07/21/24 1319 Yahir Thrasher DO CC: Dr. Rip De La Garza MD; Dr. Mady Ricardo MD Signed Normal [facility] Metabolic Profile (BMP )on 07-20-2024 BUN/CRE 26.3 RATIO High 10-20 [facility] Comment on above: Performed By: #### L 500.2500, L100.0100, L501.4020 #### [facility] [address] [place], [address] CA,Total 8.7 mg/dL Normal 8.5-10.1 [facility] Comment on above: Performed By: #### L 500.2500, L100.0100, L501.4020 #### [facility] [address] [place], [address] Chloride [Moles/Vol] 108 mmol/L High 98-107 [facility] Comment on above: Performed By: #### L 500.2500, L100.0100, L501.4020 #### [facility] [address] [place], [address] CO2 [Moles/Vol] 27.0 mmol/L Normal 21.0-32.0 [facility] Comment on above: Performed By: #### L 500.2500, L100.0100, L501.4020 #### [facility] [address] [place], [address] Creatinine [Mass/Vol] 0.84 mg/dL Normal 0.55-1.02 [facility] Comment on above: Result Comment: The validity of the calculated GFR GFRAA in patients over 70 years has not been determined. Clinical correlation is essential. Performed By: #### L 500.2500, L100.0100, L501.4020 #### [facility] [address] [place], [address] ECRCL 39.01 ml/min Normal [facility] Comment on above: Performed By: #### L 500.2500, L100.0100, L501.4020 #### [facility] [address] [place], [address] EST GFR - AA 85 mL/min Normal >60 [facility] Comment on above: Result Comment: Afri can Turkish GFR Calc Performed By: #### L 500.2500, L100.0100, L501.4020 #### [facility] [address] [place], [address] GAP 6 Normal 5-15 [facility] Comment on above: Performed By: #### L 500.2500, L100.0100, L501.4020 #### [facility] [address] [place], [address] GFR/1.73 sq M.predicted among non-blacks MDRD (S/P/Bld) [Vol rate/Area] 70 mL/min/{1.73_m2} Normal >60 [facility] Comment on above: Result Comment: Non- GFR Calc Performed By: #### L 500.2500, L100.0100, L501.4020 #### [facility] [address] [place], [address] Glucose [Mass/Vol] 128 mg/dL High 74-106 [facility] Comment on above: Result Comment: Fast ing Glucose result greater than or equal to 126 mg/dL suggests DIABETES MELLITUS per A.D.A. criteria. Performed By: #### L 500.2500, L100.0100, L501.4020 #### [facility] [address] [place], [address] Potassium [Moles/Vol] 4.1 mmol/L Normal 3.5-5.1 [facility] Comment on above: Performed By: #### L 500.2500, L100.0100, L501.4020 #### [facility] [address] [place], [address] Sodium [Moles/Vol] 141 mmol/L Normal 136-145 [facility] Comment on above: Performed By: #### L 500.2500, L100.0100, L501.4020 #### [facility] [address] [place], [address] Urea nitrogen [Mass/Vol] 22 mg/dL High 7-18 [facility] Comment on above: Performed By: #### L 500.2500, L100.0100, L501.4020 #### [facility] [address] [place], [address] CBC W/Diff, Automatedon 09-0 9-2024 Absolute Lymph 2.08 X10 3/uL Normal 0.83-4.51 [facility] Comment on above: Performed By: #### L 500.2500, L100.0100, L501.4020 #### [facility] [address] [place], [address] Absolute Neut 6.0 X10 3/uL Normal 2.0-7.7 [facility] Comment on above: Performed By: #### L 500.2500, L100.0100, L501.4020 #### [facility] [address] [place], [address] Basophils/100 WBC (Bld) 0.4 % Normal 0-1 [facility] Comment on above: Performed By: #### L 500.2500, L100.0100, L501.4020 #### [facility] [address] [place], [address] Eosinophils/100 WBC (Bld) 0.4 % Normal 0-5 [facility] Comment on above: Performed By: #### L 500.2500, L100.0100, L501.4020 #### [facility] [address] [place] [place], [address] Erythrocyte distribution width (RBC) [Ratio] 15.6 % High 11.6-14.6 [facility] Comment on above: Performed By: #### L 500.2500, L100.0100, L501.4020 #### [facility] [address] [place], [address] Hematocrit (Bld) [Volume fraction] 27.4 % Low 37-47 [facility] Comment on above: Performed By: #### L 500.2500, L100.0100, L501.4020 #### [facility] [address] [place] [place], [address] Hemoglobin (Bld) [Mass/Vol] 8.4 g/dL Low 12.0-15.0 [facility] Comment on above: Performed By: #### L 500.2500, L100.0100, L501.4020 #### [facility] [address] [place], [address] IG% 0.600 Normal 0.0-0.9 [facility] Comment on above: Result Comment: IG% - Immature Granulocytes (promyelocytes, myelocytes and metamyelocytes) > 1% indicates that a LEFT SHIFT is Present. Performed By: #### L 500.2500, L100.0100, L501.4020 #### [facility] [address] [place], [address] Lymphocytes/100 WBC (Bld) 23.2 % Normal 19-41 [facility] Comment on above: Performed By: #### L 500.2500, L100.0100, L501.4020 #### [facility] [address] [place], [address] MCH (RBC) [Entitic mass] 28.9 pg Normal 27.0-32.0 [facility] Comment on above: Performed By: #### L 500.2500, L100.0100, L501.4020 #### [facility] [address] [place], [address] MCHC (RBC) [Mass/Vol] 30.7 g/dL Low 32-36 [facility] Comment on above: Performed By: #### L 500.2500, L100.0100, L501.4020 #### [facility] [address] [place], [address] MCV (RBC) [Entitic vol] 94.2 fL Normal 81-99 [facility] Comment on above: Performed By: #### L 500.2500, L100.0100, L501.4020 #### [facility] [address] [place] [place], [address] Monocytes/100 WBC (Bld) 8.7 % Normal 0-10 [facility] Comment on above: Performed By: #### L 500.2500, L100.0100, L501.4020 #### [facility] [address] [place] [place], [address] Neutrophils/100 WBC (Bld) 66.7 % Normal 47-70 [facility] Comment on above: Performed By: #### L 500.2500, L100.0100, L501.4020 #### [facility] [address] [place], [address] Nucleated RBC (Bld) [#/Vol] 0 10*3/uL Normal 0-5 [facility] Comment on above: Performed By: #### L 500.2500, L100.0100, L501.4020 #### [facility] [address] [place], [address] Platelet mean volume (Bld) [Entitic vol] 10.8 fL Normal 6.2-12.0 [facility] Comment on above: Performed By: #### L 500.2500, L100.0100, L501.4020 #### [facility] [address] [place], [address] Platelets (Bld) [#/Vol] 149 10*3/uL Low 150-450 [facility] Comment on above: Performed By: #### L 500.2500, L100.0100, L501.4020 #### [facility] [address] [place], [address] RBC (Bld) [#/Vol] 2.91 10*6/uL Low 4.2-5.4 [facility] Comment on above: Performed By: #### L 500.2500, L100.0100, L501.4020 #### [facility] [address] [place], [address] RDW SD 53.1 fl High 35.1-43.9 [facility] Comment on above: Performed By: #### L 500.2500, L100.0100, L501.4020 #### [facility] [address] [place], [address] WBC (Bld) [#/Vol] 9.0 10*3/uL Normal 4.4-11.0 [facility] Comment on above: Performed By: #### L 500.2500, L100.0100, L501.4020 #### [facility] [address] [place], [address] Urine Cultureon 07-20-2024 [facility] Culture exhibits no growth. Normal [facility] Comment on above: Performed By: #### M 100.2200 ####[facility] [address] [place], [address] 12 Lead EKGon 07-19-2024 12 Lead EKG [facility] Cardiovascular Services [address] [place] [address] 12 Lead EKG 07/19/24 1014 MR#: [id number] Acct: [id number] Name: RUBEN LOBO Rep #: [id number] : 1945 79 From: Cory Montes MD Attending Dr: Dr. Yahir Thrasher DO Status: A DM IN Ordering Dr: Dana Casarez DO Date: 07/19/24 Location: [facility] [place] Sex: F C Admitted: 07/19/24 Test Reason : BACK PAIN Blood Pressure : / mmHG Vent. Rate : 104 BPM Atrial Rate : 208 BPM P-R Int : 000 ms QRS Dur : 078 ms QT Int : 438 ms P-R-T Axes : 000 039 091 degrees QTc Int : 575 ms Critical Test Result: Long QTc Atrial flutter with 2:1 A-V conduction Nonspecific ST and T wave abnormality Abnormal ECG Confirmed by CORY MONTES MD ([id number]), map editor KRISTINE DURAN ([id number]) on 07/20/2024 2:49:03 PM Referred By: Confirmed By:CORY MONTES MD 07/20/24 1449 Date Cory Montes MD CC: Dr. Dana Casarez DO; Dr. Rip De La Garza MD; Dr. Yahir Thrasher DO Signed Normal [facility] Basic Metabolic Profile (BMP )on 07-19-2024 BUN/CRE 23.5 RATIO High 10-20 [facility] Comment on above: Order Comment: 'TROP ' Serial specimen #1, #2 or #3: 1 Performed By: #### L 500.2500, L100.0100, L501.4020 #### [facility] [address] [place], [address] CA,Total 9.5 mg/dL Normal 8.5-10.1 [facility] Comment on above: Order Comment: 'TROP ' Serial specimen #1, #2 or #3: 1 Performed By: #### L 500.2500, L100.0100, L501.4020 #### [facility] [address] [place], [address] Chloride [Moles/Vol] 106 mmol/L Normal 98-107 [facility] Comment on above: Order Comment: 'TROP ' Serial specimen #1, #2 or #3: 1 Performed By: #### L 500.2500, L100.0100, L501.4020 #### [facility] [address] [place], [address] CO2 [Moles/Vol] 28.0 mmol/L Normal 21.0-32.0 [facility] Comment on above: Order Comment: 'TROP ' Serial specimen #1, #2 or #3: 1 Performed By: #### L 500.2500, L100.0100, L501.4020 #### [facility] [address] [place], [address] Creatinine [Mass/Vol] 0.89 mg/dL Normal 0.55-1.02 [facility] Comment on above: Order Comment: 'TROP ' Serial specimen #1, #2 or #3: 1 Result Comment: The validity of the calculated GFR GFRAA in patients over 70 years has not been determined. Clinical correlation is essential. Performed By: #### L 500.2500, L100.0100, L501.4020 #### [facility] [address] [place], [address] ECRCL 36.82 ml/min Normal [facility] Comment on above: Order Comment: 'TROP ' Serial specimen #1, #2 or #3: 1 Performed By: #### L 500.2500, L100.0100, L501.4020 #### [facility] [address] [place], [address] EST GFR - AA 78 mL/min Normal >60 [facility] Comment on above: Order Comment: 'TROP ' Serial specimen #1, #2 or #3: 1 Result Comment: Afri can Turkish GFR Calc Performed By: #### L 500.2500, L100.0100, L501.4020 #### [facility] [address] [place], [address] GAP 5 Normal 5-15 [facility] Comment on above: Order Comment: 'TROP ' Serial specimen #1, #2 or #3: 1 Performed By: #### L 500.2500, L100.0100, L501.4020 #### [facility] [address] [place], [address] GFR/1.73 sq M.predicted among non-blacks MDRD (S/P/Bld) [Vol rate/Area] 65 mL/min/{1.73_m2} Normal >60 [facility] Comment on above: Order Comment: 'TROP ' Serial specimen #1, #2 or #3: 1 Result Comment: Non- GFR Calc Performed By: #### L 500.2500, L100.0100, L501.4020 #### [facility] [address] [place], [address] Glucose [Mass/Vol] 215 mg/dL High 74-106 [facility] Comment on above: Order Comment: 'TROP ' Serial specimen #1, #2 or #3: 1 Result Comment: Gluc ose result greater than or equal to 200 mg/dL suggests DIABETES MELLITUS per A.D.A. criteria. Performed By: #### L 500.2500, L100.0100, L501.4020 #### [facility] [address] [place], [address] Potassium [Moles/Vol] 3.8 mmol/L Normal 3.5-5.1 [facility] Comment on above: Order Comment: 'TROP ' Serial specimen #1, #2 or #3: 1 Performed By: #### L 500.2500, L100.0100, L501.4020 #### [facility] [address] [place], [address] Sodium [Moles/Vol] 139 mmol/L Normal 136-145 [facility] Comment on above: Order Comment: 'TROP ' Serial specimen #1, #2 or #3: 1 Performed By: #### L 500.2500, L100.0100, L501.4020 #### [facility] [address] [place], [address] Urea nitrogen [Mass/Vol] 21 mg/dL High 7-18 [facility] Comment on above: Order Comment: 'TROP ' Serial specimen #1, #2 or #3: 1 Performed By: #### L 500.2500, L100.0100, L501.4020 #### [facility] [address] [place], [address] CBC W/Diff, Automatedon 09-0 Absolute Lymph 2.26 X10 3/uL Normal 0.83-4.51 [facility] Comment on above: Performed By: #### L 500.2500, L100.0100, L501.4020 #### [facility] [address] [place], [address] Absolute Neut 11.8 X10 3/uL High 2.0-7.7 [facility] Comment on above: Performed By: #### L 500.2500, L100.0100, L501.4020 #### [facility] [address] [place], [address] Basophils/100 WBC (Bld) 0.4 % Normal 0-1 [facility] Comment on above: Performed By: #### L 500.2500, L100.0100, L501.4020 #### [facility] [address] [place], [address] Eosinophils/100 WBC (Bld) 0.1 % Normal 0-5 [facility] Comment on above: Performed By: #### L 500.2500, L100.0100, L501.4020 #### [facility] [address] [place], [address] Erythrocyte distribution width (RBC) [Ratio] 15.2 % High 11.6-14.6 [facility] Comment on above: Performed By: #### L 500.2500, L100.0100, L501.4020 #### [facility] [address] [place], [address] Hematocrit (Bld) [Volume fraction] 35.9 % Low 37-47 [facility] Comment on above: Performed By: #### L 500.2500, L100.0100, L501.4020 #### [facility] [address] [place], [address] Hemoglobin (Bld) [Mass/Vol] 11.1 g/dL Low 12.0-15.0 [facility] Comment on above: Performed By: #### L 500.2500, L100.0100, L501.4020 #### [facility] [address] [place], [address] IG% 0.900 Normal 0.0-0.9 [facility] Comment on above: Result Comment: IG% - Immature Granulocytes (promyelocytes, myelocytes and metamyelocytes) > 1% indicates that a LEFT SHIFT is Present. Performed By: #### L 500.2500, L100.0100, L501.4020 #### [facility] [address] [place], [address] Lymphocytes/100 WBC (Bld) 14.7 % Low 19-41 [facility] Comment on above: Performed By: #### L 500.2500, L100.0100, L501.4020 #### [facility] [address] [place], [address] MCH (RBC) [Entitic mass] 28.8 pg Normal 27.0-32.0 [facility] Comment on above: Performed By: #### L 500.2500, L100.0100, L501.4020 #### [facility] [address] [place], [address] MCHC (RBC) [Mass/Vol] 30.9 g/dL Low 32-36 [facility] Comment on above: Performed By: #### L 500.2500, L100.0100, L501.4020 #### [facility] [address] [place], [address] MCV (RBC) [Entitic vol] 93.2 fL Normal 81-99 [facility] Comment on above: Performed By: #### L 500.2500, L100.0100, L501.4020 #### [facility] [address] [place], [address] Monocytes/100 WBC (Bld) 7.0 % Normal 0-10 [facility] Comment on above: Performed By: #### L 500.2500, L100.0100, L501.4020 #### [facility] [address] [place], [address] Neutrophils/100 WBC (Bld) 76.9 % High 47-70 [facility] Comment on above: Performed By: #### L 500.2500, L100.0100, L501.4020 #### [facility] [address] [place], [address] Nucleated RBC (Bld) [#/Vol] 0 10*3/uL Normal 0-5 [facility] Comment on above: Performed By: #### L 500.2500, L100.0100, L501.4020 #### [facility] [address] [place], [address] Platelet mean volume (Bld) [Entitic vol] 11.1 fL Normal 6.2-12.0 [facility] Comment on above: Performed By: #### L 500.2500, L100.0100, L501.4020 #### [facility] [address] [place], [address] Platelets (Bld) [#/Vol] 262 10*3/uL Normal 150-450 [facility] Comment on above: Performed By: #### L 500.2500, L100.0100, L501.4020 #### [facility] [address] [place], [address] RBC (Bld) [#/Vol] 3.85 10*6/uL Low 4.2-5.4 [facility] Comment on above: Performed By: #### L 500.2500, L100.0100, L501.4020 #### [facility] [address] [place], [address] RDW SD 51.3 fl High 35.1-43.9 [facility] Comment on above: Performed By: #### L 500.2500, L100.0100, L501.4020 #### [facility] [address] [place], [address] WBC (Bld) [#/Vol] 15.4 10*3/uL High 4.4-11.0 [facility] Comment on above: Performed By: #### L 500.2500, L100.0100, L501.4020 #### [facility] [address] [place], [address] CRPon 07-19-2024 C-REACTIVE PROT 10.60 mg/L High 0.0-3.0 [facility] Comment on above: Result Comment: C-Re active Protein (CRP) provides useful information for the diagnosis, therapy and monitoring of inflammatory processes and associated diseases. For the evaluation of Relative Risk for Cardiovascular Disease, a High Sensitivity CRP (HSCRP) should be ordered. Performed By: #### L 500.2500, L100.0100, L501.4020 #### [facility] [address] [place], [address] Chest 1 View (Portable)on Chest 1 View (Portable) [facility] Imaging Services [address] [place] [address] Chest 1 View (Portable) MR#: [id number] Acct: [id number] Name: RUBEN LOBO Andres Rep #: [id number] : 1945 F 79 From: Smith Wood MD PCP: Dr. Rip De La Garza MD Status: [facility] ER Study: Chest 1 View (Portable) Date of Exam: 07/19/24 Exam# [id number] Ordering Dr: Dana Casarez DO [id number] EXAM: XR CHEST, 1 VIEW CLINICAL INDICATION: PT HAS HX OF BACK SURGERY, HAD A EPIDURAL LAST WEEK WHICH CAUSED A HEMATOMA AND NOW HAS MORE PAIN. WAS GIVEN TRAMADOL ON SATURDAY AND NOW HAS MORE PAIN AND STATES THE MEDICINE MAKES HER DIZZY AND MAKES HER SLEEPY. PT C/O PAIN STILL. STATES SHE TOOK IT LAST EITHER LAST NIGHT OR THIS MORNING. CALLED EMS BECAUSE SHE NEEDED HELP GETTING UP. TECHNIQUE: Frontal view of the chest. COMPARISON: 07/06/2022. FINDINGS: LUNGS AND PLEURAL SPACES: Pulmonary hyperinflation with flattening of the hemidiaphragms. No suspicious interstitial infiltrates, consolidation or edema. No pneumothorax. No effusion. HEART: Cardiomegaly is unchanged. MEDIASTINUM: Central airways and mediastinal contour are unremarkable. BONES/JOINTS: Unremarkable. No acute fracture. SOFT TISSUES: Midline surgical aylin overlying the lower cervical spine and thoracic spine. VASCULATURE: Pronounced dilatation of the left main pulmonary artery bifurcation may be secondary to pulmonic valve stenosis with poststenotic dilatation and/or pulmonary arterial hypertension. RAD/Chest 1 View (Portable) IMPRESSION: 1. No acute cardiopulmonary pathology. 2. COPD. 3. Cardiomegaly with dilated left main pulmonary artery bifurcation overlying the left mainstem bronchus may be secondary to pulmonic valve stenosis with poststenotic dilatation and/or pulmonary arterial hypertension. Correlation with 2-D echocardiogram will help clarify. 4. No significant interval change. Electronically Signed: Smith Wood MD at 10:44 EDT , CC: Dr. Dana Casarez DO; Dr. Rip De La Garza MD [employer] Supervisor: Signed Normal [facility] Emergency Department Summary on 07-19-2024 Emergency Department Summary [facility] Medical Records Department [address] [place] [address] Emergency Department Summary 07/19/24 MR#: [id number] Acct: [id number] Name: RUBEN LOBO Rep #: [id number] : 1945 79 From: Dana Casarez DO PCP: Dr. Rip De La Garza MD Status:ADM IN Location: [address] History of Present Illness Chief Complaint: Back Informant: patient Narrative Narrative: Patient is a 79-year-old female with history of chronic atrial flutter/fibrillation on Eliquis, diltiazem and metoprolol as well as recent epidural neck injection performed by pain management with complication of what sounds like an epidural hematoma requiring emergent surgery at [facility]. This was performed 10 days ago. Patient was discharged from the hospital a week ago to home. She states at 1 point she could not move her extremities however her movement has returned. She has had increased weakness over the past 24 hours or so and is having increased pain in her back. She does not recall the name of her surgeon. She notes she did follow-up with her PCP, Dr. De La Garza, who prescribed her tramadol. She started taking this yesterday. She states that she was discharged home with only Tylenol for pain medication. She does live at home with her her has Parkinson's so is not able to assist her. She has been wearing a [place] [employer] collar as well. This morning her son came and checked on her and she was laying in bed. He states she was a little slow to arouse (it took 2 to 5 seconds for her to wake up) and patient was complaining of dizziness. States when she tried to move this morning she had increased pain coming from her right back radiating around. She states she felt she could not move her arms and legs. Patient was having a hard time lifting of the water bottle stating she felt too weak. Family states this is new. No report of any fevers, sweats or chills. No report of any nausea or vomiting or abdominal pain. Denies any chest pain or difficulty breathing. No new drainage or rash from this vision site reported. Denies any recent falls or injuries. Patient notes she did not take her morning medications. [facility] Medical History Wears hearing aid Arthritis Restless legs Shortness of breath on exertion On amiodarone therapy Wears dentures Post-menopausal Depression Anxiety Rheumatoid arthritis History of hiatal hernia Gastric reflux Non-smoker CPAP (continuous positive airway pressure) dependence Sleep apnea History of pain when walking History of echocardiogram History of stress test Hypertension Cardiology follow-up encounter History of atrial fibrillation History of cardioversion CLARISSE (obstructive sleep apnea) Mixed 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 Pulmonary hypertension Chronic cholecystitis with calculus Paroxysmal atrial fibrillation Essential (primary) hypertension Esophageal hiatal hernia 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, left care home current use of anticoagulant Atrial flutter GERD (gastroesophageal reflux disease) Home Medications ???Medication ???Instructions ???Recorded ???Last Taken ???Type pantoprazole 40 mg tablet,delayed 40 mg PO DAILY 12/14/20 07/18/24 History release sertraline 100 mg tablet 100 mg PO QHS 12/14/20 07/18/24 History diltiazem HCl 120 mg See Rx Instructions .Route 12/18/23 07/18/24 Rx capsule,extended release 24 hr .COMPLEX #90 CAPSULES magnesium 200 mg tablet 100 mg PO DAILY 12/18/23 07/18/24 History acetaminophen 500 mg tablet 1,000 mg PO Q8 PRN Pain 12/20/23 Unknown History metoprolol tartrate 50 mg tablet 50 mg PO BID This is a dose 03/02/24 07/19/24 Rx increase #180 tabs apixaban 5 mg tablet (Eliquis) 5 mg PO BID #180 tabs 04/07/24 07/18/24 Rx cholecalciferol (vitamin D3) 50 50 mcg PO DAILY 07/19/24 07/18/24 History mcg (2,000 unit) capsule tramadol 50 mg tablet 50 mg PO Q4H PRN pain 07/19/24 07/18/24 History Allergy/AdvReac Type Severity Reaction Status Date / Time No Known Allergies Allergy Verified 07/19/24 09:58 Family History Mother Hypertension Arthritis Heart disease Father Cancer Brother Cancer Son CVA (cerebral vascular accident) Diabetes Brother TIA (transient ischemic attack) Sister Cancer kidney cancer Thyroid disorder Surgical History Status post right knee replacement Hx of cystoscopy History of arthroscopy of right knee History of cardiac catheterization History of open heart surgery History of cholecystectomy History of atrial septal defect repair History of appendectomy Status post l (more content not included)... Normal [facility] Erythrocyte Sed Rateon 07-19 SED RATE 5 mm/hr Normal 0-30 [facility] Comment on above: Performed By: #### L 500.2500, L100.0100, L501.4020 #### [facility] [address] [place], [address] H AND P Exam - Hospitaliston 07-19-2024 H&P Exam - Hospitalist [facility] Medical Records Department [address] [place] [address] H P Exam - Hospitalist 07/19/24 1742 MR#: [id number] Acct: [id number] Name: RUBEN LOBO Rep #: [id number] : 1945 79 From: Mady Ricardo MD PCP: Dr. Rip De La Garza MD Status:ADM IN Location: [facility] BP643-6 HPI - General General Date of Admission: 07/19/24 Date of Service: 07/19/24 Chief Complaint: intractable pain HPI Narrative RUBEN LOBO, is a 79 F with a PMH as outlined who presents via the ED on 07/19/2024 with a complaint of intractable upper back pain. She had an epidural neck injection by pain management for intractable neck pain, which was complicated by epidural hematoma. She had to go to [facility] emergently for evacuation of the hematoma which was done 10 days prior to admission. She was discharged home but said the pain was still poorly controlled. She said she had been feeling weak at home due to the intractable pain. She denied any fever, chills, nausea, vomiting, burning with urination or any other symptoms. Review of systems was otherwise negative. Vitals in the ED were BP of 122/85, DE of 90, RR of 18 and temp of 98.9F. He was saturating at 94% on room air. CBC showed Hb of 11.1, wbc of 15.4 and platelets of 262. ESR is 5 and CRP is 10.60. Urinalysis showed 3+ bacteria. Chemitry showed sodium of 139, potassium of 3.8 and bicarb of 28. Cr is 0.89. She did have imaging of the cervical and thoracic spine done due to concerns about possible infection of the surgical site. Cervical spine CT showed postsurcial absence of the spinous processes nad laima at T1-T2 disc space level caudally and no suspicious cervical extruded dis fragment or cervical spinal stenosis and no evidence of any residual gas containing epidural sbscess following post surgical evacuation. Thoracic spine Ct showed superficial midline postoperative hematoma underneath the midline surgical aylin extending from the cervical spine own to T6 vertebral body level, measuring 5.1 x 3.3cm axially and 14.2cm craniocaudally. The ED doctor discussed the findings with the spine surgeon at [facility] who did no think patient needed to be transferred there and didnt think her symptoms were due to the surgery. She is therefore being admitted to be managed for debility due to intractable back pain and UTI. [facility] Medical History Wears hearing aid Arthritis Restless legs Shortness of breath on exertion On amiodarone therapy Wears dentures Post-menopausal Depression Anxiety Rheumatoid arthritis History of hiatal hernia Gastric reflux Non-smoker CPAP (continuous positive airway pressure) dependence Sleep apnea History of pain when walking History of echocardiogram History of stress test Hypertension Cardiology follow-up encounter History of atrial fibrillation History of cardioversion CLARISSE (obstructive sleep apnea) Mixed hyperlipidemia care home current use of 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 drug Pulmonary hypertension Chronic cholecystitis with calculus Paroxysmal atrial fibrillation Essential (primary) hypertension Esophageal hiatal hernia 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, left care home current use of anticoagulant Atrial flutter GERD (gastroesophageal reflux disease) Home Medications ???Medication ???Instructions ???Recorded ???Last Taken ???Type pantoprazole 40 mg tablet,delayed 40 mg PO DAILY 12/14/20 07/18/24 History release sertraline 100 mg tablet 100 mg PO QHS 12/14/20 07/18/24 History magnesium 200 mg tablet 100 mg PO DAILY 12/18/23 07/18/24 History acetaminophen 500 mg tablet 1,000 mg PO Q8 PRN Pain 12/20/23 Unknown History metoprolol tartrate 50 mg tablet 50 mg PO BID This is a dose 03/02/24 07/19/24 Rx increase #180 tabs apixaban 5 mg tablet (Eliquis) 5 mg PO BID #180 tabs 04/07/24 07/18/24 Rx cholecalciferol (vitamin D3) 50 50 mcg PO DAILY 07/19/24 07/18/24 History mcg (2,000 unit) capsule diltiazem HCl 120 mg 120 mg PO DAILY BLOOD PRESSURE AND 07/19/24 07/18/24 History capsule,extended release 24 hr HEART tramadol 50 mg tablet 50 mg PO Q4H PRN pain 07/19/24 07/18/24 History Allergy/AdvReac Type Severity Reaction Status Date / Time No Known Allergies Allergy Verified 07/19/24 09:58 Family History Mother Hypertension Arthritis Heart disease Father Cancer Brother Cancer Son CVA (cerebral vascular accident) Diabetes Brother TIA (transient ischemic attack) Sister Cancer kidney cancer Thyroid disorder Surgical History Status post right knee replacement Hx of cystoscopy History of arthroscopy of right knee History of car (more content not included)... Normal [facility] L501.4020on 07-19-2024 TROPONIN-I HS 14 pg/mL Normal 3.0-54.0 [facility] Comment on above: Order Comment: 'TROP ' Serial specimen #1, #2 or #3: 1 Result Comment: Kendra abrams Note: New Test Units and Gender Specific Reference Ranges. For more information see Policy Stat Procedure [place] High Sensitivity Troponin (TNIH) and attachments. Performed By: #### L 500.2500, L100.0100, L501.4020 #### [facility] [address] [facility] [place], [address] Lactic Acidon 07-19-2024 Lactate [Moles/Vol] 1.1 mmol/L Normal 0.4-1.9 [facility] Comment on above: Performed By: #### L 503.6005 #### [facility] [address] [place], [address] Lactate [Moles/Vol] 2.4 mmol/L Invalid Interpretation Code 0.4-1.9 [facility] Comment on above: Order Comment: Y Result Comment: Crit ical Result(s) Called at: 11:44:21 07/19/2024 by: Linda De Leon. Results read back by same. Performed By: #### L 503.6005 ####[facility] [address] [place], [address] Spine Cervical without Contr ason 07-19-2024 Spine Cervical without Contras [facility] Imaging Services [address] [place] [address] Spine Cervical without Contras MR#: [id number] Acct: [id number] Name: RUBEN LOBO Rep #: [id number] : 1945 F 79 From: Smith Wood MD PCP: Dr. Rip De La Garza MD Status: REG ER Study: Spine Cervical without Contras Date of Exam: 0 07/19/24 Exam# [id number] Ordering Dr: Dana Casarez DO [id number] EXAM: CT CERVICAL SPINE WITHOUT INTRAVENOUS CONTRAST CLINICAL INDICATION: post op pain. C and T spine surgery 2 weeks ago with bleeding complications TECHNIQUE: Helically acquired images were obtained of the cervical spine without intravenous contrast. 2D reformatted images were reviewed. This CT exam was performed using one or more of the following dose reduction techniques: automated exposure control, adjustment of the mA and/or kV according to patient size, and/or use of iterative reconstruction technique. RADIATION DOSE: CTDIvol = 17.98 mGy, DLP = 378.25 mGy-cm COMPARISON: MR cervical spine without contrast 07/08/2024. FINDINGS: VERTEBRAE: Postsurgical absence of the spinous processes and lamina at T1-T2 disc space level and caudally. Normal vertebral body heights. Normal alignment. No lytic or blastic lesions. DISCS/SPINAL CANAL/NEURAL FORAMINA: Unremarkable. No critical stenosis. Normal central canal and intervertebral neuroforamina. Partial ankylosis of the left C2-C3 facet joint. Mild left C3-C4 and left C4-C5 degenerative facet arthropathy. Normal remaining facet joints. SOFT TISSUES: Unremarkable. No prevertebral soft tissue swelling. LYMPH NODES: Unremarkable. No cervical adenopathy. LUNG APICES: Unremarkable as visualized. Clear. CT/Spine Cervical without Contras IMPRESSION: 1. Postsurgical absence of the spinous processes and lamina at T1-T2 disc space level and caudally. Please see CT thoracic spine showing superficial midline hematoma underneath the surgical aylin. 2. No suspicious cervical extruded disc fragment or cervical spinal stenosis. 3. No CT evidence of any suspicious residual gas-containing epidural abscess following postsurgical evacuation. 4. Partial ankylosis of the left C2-C3 facet joint and mild left C3-C4 left C4-C5 degenerative facet arthropathy. Electronically Signed: Smith Wood MD at 15:03 EDT Reading Location ID and State: [facility] / [place] , Service support , CC: Dr. Dana Casarez DO; Dr. 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 Rip De La Garza MD Status: REG ER Study: Spine Thoracic without Contras Date of Exam: 0 07/19/24 Exam# [id number] Ordering Dr: Dana Casarez DO [id number] STUDY: CT THORACIC SPINE WITHOUT CONTRAST REASON FOR EXAM: Female, 79 years old. Post op pain. C and T spine surgery 2 weeks ago with bleeding complications RADIATION DOSAGE (If Supplied By Facility): CTDIvol = ( 18.54 ) mGy, DLP = ( 700.96 ) mGycm TECHNIQUE: The patient was scanned in a multi detector CT scanner. High resolution imaging was performed. Images were obtained from lower C3 to upper L2. Sagittal and coronal images were reconstructed. Individualized dose optimization techniques were used for this CT. The protocol utilizes one or more of the following dose reduction techniques: automated exposure control, adjustment of mA and/or kV according to patient size, and/or use of iterative reconstruction technique. COMPARISON: Unremarkable thoracic spine without contrast 07/08/2024. FINDINGS: Normal visualized cervical spine. Normal kyphosis of the thoracic spine. There is no substantial scoliosis. Postsurgical absence of the spinous processes and lamina at T1-T2 down to T5-T6 disc space levels. Normal thoracic vertebral body heights and alignment. Coarse vertical trabeculations of the T8 vertebral body due to hemangioma. Smaller T12 benign vertebral body hemangioma is also present. No lytic or blastic lesions. Normal disc spaces heights. Suboptimal visualization of the central canal due to absence of intrathecal contrast. No central canal stenosis and no intervertebral neural foraminal stenosis. Prominent midline subcutaneous postoperative hematoma underneath the midline surgical aylin. This hematoma extends from the cervical spine down to T6 vertebral body level. The hematoma measures 5.1 x 3.3 cm in the axial projection and 14.2 cm craniocaudally. Small paraseptal cysts are visible in the lung apices, left more than right. CT/Spine Thoracic without Contras IMPRESSION: 1. Superficial midline postoperative hematoma underneath the midline surgical aylin extending from the cervical spine down to T6 vertebral body level. This measures 5.1 x 3.3 cm in the axial projection and 14.2 cm craniocaudally. 2. Postsurgical absence of the spinous processes and lamina at T1-T2 down to T5-T6 disc space levels. 3. T8 benign vertebral hemangioma and smaller T12 benign vertebral body hemangioma. 4. Suboptimal visualization of the central canal due to absence of intrathecal contrast. No suspicious central canal stenosis or intervertebral neural foraminal stenosis. 5. Small bilateral apical paraseptal cysts, left more than right. Electronically Signed: Smith Wood MD at 14:56 EDT , CC: Dr. Dana Casarez, DO; Dr. Rip De La Garza MD Fish Bait Processing Supervisor: Signed Normal [facility] Urinalysis, Completeon 07-19 AMORPHOUS 1+ Normal [facility] Comment on above: Order Comment: COLOR OF URINE MAY AFFECT DIPSTICK RESULTS.POWER PRESS SUPERVISOR TO SPECIFY Performed By: #### L 400.0001 ####[facility] [address] [place], [address] BACTERIA 3+ /hpf Normal None Seen [facility] Comment on above: Order Comment: COLOR OF URINE MAY AFFECT DIPSTICK RESULTS.POWER PRESS SUPERVISOR TO SPECIFY Performed By: #### L 400.0001 ####[facility] [address] [place], [address] CAST,HYALINE 50-100 SEEN Normal 0-5 [facility] Comment on above: Order Comment: COLOR OF URINE MAY AFFECT DIPSTICK RESULTS.POWER PRESS SUPERVISOR TO SPECIFY Performed By: #### L 400.0001 ####[facility] [address] [place], [address] EPI,SQUAMOUS 5-10 SEEN Normal 5-10 [facility] Comment on above: Order Comment: COLOR OF URINE MAY AFFECT DIPSTICK RESULTS.POWER PRESS SUPERVISOR TO SPECIFY Performed By: #### L 400.0001 ####[facility] [address] [place], [address] Mucus Ql (Urine sed) 4+ /hpf Normal [facility] Comment on above: Order Comment: COLOR OF URINE MAY AFFECT DIPSTICK RESULTS.POWER PRESS SUPERVISOR TO SPECIFY Performed By: #### L 400.0001 ####[facility] [address] [place], [address] WBC 0-5 SEEN Normal 0-5 [facility] Comment on above: Order Comment: COLOR OF URINE MAY AFFECT DIPSTICK RESULTS.POWER PRESS SUPERVISOR TO SPECIFY Performed By: #### L 400.0001 ####[facility] [address] [place], [address] RBC 0 SEEN Normal 0-5 [facility] Comment on above: Order Comment: COLOR OF URINE MAY AFFECT DIPSTICK RESULTS.POWER PRESS SUPERVISOR TO SPECIFY Performed By: #### L 400.0001 ####[facility] [address] [place], [address] CNCOon 07-14-2024 CNCO Letter Text Normal [facility] CNPCate 07-14-2024 CNPN Telephone (HCSIND) RUBEN LOBO ([id number]) 1945 F Date Time Provider Department 07/14/24 [facility] During your visit today, we recorded the following information about you: Nasrin Lezama LPN 07/14/2024 11:09 AM Signed Date/Time: 07/14/2024 11:07 AM Spoke with Ruben @ phone #: [phone] - Preferred # for contact: [phone] Have you received help from a home care company in the last 60 days? No Are you agreeable to [facility] services? Yes What address will we be seeing you at? [address] [place] [address] Do you have any upcoming appointments or things we need to schedule around? No Do you have a teachable CG or can you manage your care independently? Independent with care . Allergies As of Date: 07/14/2024 (No Known Allergies) Date Reviewed: 07/10/2024 Reviewed by: Oh Kelly, RN - Fully Assessed Reason for Visit: Home Care [4073] Cmt: Confirmation Call Prescriptions as of 07/14/2024 - ascorbic acid, vitamin C, (VITAMIN C) 500 mg tablet Take 500 mg by mouth once daily. - pantoprazole DR (PROTONIX) 40 mg tablet Take 40 mg by mouth once daily. - denosumab (PROLIA) 60 mg/mL syrg Inject 60 mg subcutaneously one time only. Twice daily - diltiazem (CARDIZEM) 120 mg tablet Take 120 mg by mouth four times daily. - amiodarone (PACERONE) 200 mg tablet Take by mouth once daily. - sertraline (ZOLOFT) 50 mg tablet Take 100 mg by mouth once daily. 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] 05/13/2018 Essential hypertension [I10] 05/13/2018 Pseudophakia of both eyes [Z96.1] 04/28/2019 A-fib (HCC) [I48.91] Anxiety [F41.9] Congenital heart disease [Q24.9] 1964 CLARISSE on CPAP [G47.33] Epidural hematoma (HCC) [S06.4XAA] 07/08/2024 Hematoma, epidural (HCC) [S06.4XAA] 07/08/2024 History of hiatal hernia [Z87.19] 07/09/2024 Mixed hyperlipidemia [E78.2] 07/09/2024 Rheumatoid arthritis involving multiple sites (*07/09/2024 Depression [F32.A] 07/09/2024 Pain of cervical spine [M54.2] 07/09/2024 Hypomagnesemia [E83.42] 07/09/2024 Encounter Status:Closed by NASRIN LEZAMA on 07[facility]14/24 [facility] HNO [facility]: [id number] Author: HECTOR HAAS MD Service: Hospital Medicine Author Type: Physician Type: Discharge Summary Filed: 07/13/2024 10:16 Note Text: DISCHARGE SUMMARY PATIENT NAME: Ruben Lobo ADMISSION DATE: 07/09/2024 DISCHARGE DATE: 07/13/2024 Attending Physician: Hector Haas MD Code Status: Full Code Highest Readmission Risk Score: 13 The 30 day readmissions risk score is derived from an internally validated risk model which evaluates patient level characteristics, utilization history, medication orders and lab results up until the day of discharge. Patients with a score of 40 or above are considered highest risk for readmission. Specific patient level drivers will be listed at the bottom of the summary. Reason for Hospitalization: Difficulty walking and slurred speech Epidural hematoma Hospital Course: 79 years old with past medical history of paroxysmal A-fib on Eliquis, anxiety, depression, congenital heart disease CLARISSE on CPAP, hyperlipidemia cervical spine pain. Patient had underwent steroid injection for cervical spine on 07/08/2024 for which she held the Eliquis for 2 days then he presented to the hospital with difficulty walking, slurred speech and weakness. MRI was completed and showed extensive posterior epidural fluid collection extending superiorly to the level of the posterior arch of C2 consistent with large epidural hematoma. Admitted to the ICU and neurosurgeon was consulted and patient is s/p T1-T5 laminectomy,evacuati on of epidural hematoma for which she regained her strength and improved and went back to baseline. Blood thinner on hold. Neurosurgery has recommended to continue [place] J collar and to hold Eliquis till she follow-up in 2 weeks. I told the patient that she has to follow-up with the neurosurgeon and she should not resume Eliquis until cleared by neurosurgeon as an outpatient. Patient is stable and doing fine and ready for discharge with home health care. Consulting Teams During Hospitalization: Neurosurgeon Treatment Team: Attending Provider: Hector Haas MD Consulting: Melody Duke Attending: MR HEATHER SERRANO Patient Condition @ Discharge: Stable Discharge Disposition: Home with Home Health Modification to Baseline: Discharge Checklist: Has Inventory And Pricing Associate been notified of pending discharge today: Yes Medications reconciled: Yes Follow-up appointment orders placed: Yes Does the patient have a PICC line or central line: No Discharge medications reviewed: Yes Meds to Beds used: Yes General: AOX3. No acute distress. Well developed, hydrated and nourished. Head: [place] J collar Neck: The neck is supple without adenopathy. No JVD Cardiac:Regular heart rate, sangeeta S 1 S2 , no added murmurs or sounds Lung: Sounds are clear in all lobes bilaterally without rales, ronchi, or wheezes Abdominal: soft lax, and non-tender without distention. Bowel sounds are present and normoactive in all four quadrants. Extremities: No swelling or erythema. Neurological: The patient is awake, alert and oriented to person, place, and time with normal speech. Motor function is normal with muscle strength 5/5 bilaterally to upper and lower extremities. Sensation is intact bilaterally. . Cranial nerves are intact. Psychiatric: Appropriate mood and affect. Good judgement and insight. No visual or auditory hallucinations. Information Provided to Patient: Follow-up with primary care and neurosurgery DIET: Resume pre-hospital diet ACTIVITY: Resume pre-hospital activity WOUND/SURGICAL SITE CARE: None ALLERGIES No Known Allergies Discharge Medications: Medication List CONTINUE taking these medications amiodarone 200 mg tablet Commonly known as: PACERONE dilTIAZem 120 mg tablet Commonly known as: CARDIZEM pantoprazole DR 40 mg tablet Commonly known as: PROTONIX PROLIA 60 mg/mL Generic drug: denosumab sertraline 50 mg tablet Commonly known as: ZOLOFT VITAMIN C 500 mg tablet Generic drug: ascorbic acid (vitamin C) STOP taking these medications ELIQUIS ORAL Plan of Care: Plan of care discussed with Provider, RN, Patient Future Appointments: Follow Up with PCP: Rip De La Garza MD Discharge Information Row Name Admission (Current) from 07/09/2024 in MR 5B MED/SURG Home Health Care Agency [facility] Start of Care 07/14/24 start of care will be in the next 24-48 hours after you are discharged The patient's risk for 30-day readmission is determined using the following contributing factors: Pt variables contributing to increased readmission risk: 22 Active Medication Orders 14 Most Recent BUN Result 9.7 First Resulted Calcium During Admission 1 Insurance - Medicare 1 Discharge Disposition - Home I have performed the [id number]-[id number] and relevant services for a total of >30 minutes. SIGNATURE: Hector Haas MD DATE: July 13, 2024 TIME: 10:13 (more content not included)... [facility] ([id number]) 1945 F Date Time Provider Department 07/13/24 FLAVIA DAWSON During your visit today, we recorded the following information about you: Flavia Dawson LPN 07/13/2024 11:46 AM Signed Unable to leave message to follow for home care due to holiday. Flavia Dawson LPN July 13, 2024 11:45 AM Lise NasrinDANIEL 07/14/2024 11:45 AM Addendum Made several attempts to call providers office, was on hold every time. DANIEL Giron Ludmila, LPN 07/14/2024 12:15 PM Signed Called and left message with Amy in providers office, wanted to know if he would follow for home care. DANIEL Giron Ludmila, LPN 07/14/2024 3:17 PM Signed Spoke with Brandi in office, she stated agreed to follow post surgery - as long as pt does not have any vacuum devices, drains, pumps etc, then the surgical team will need to follow. Nasrin Lezama LPN Allergies As of Date: 07/13/2024 (No Known Allergies) Date Reviewed: 07/10/2024 Reviewed by: Oh Kelly, RN - Fully Assessed Reason for Visit: Home Care [4073] Cmt: MD TO FOLLOW Prescriptions as of 07/14/2024 - ascorbic acid, vitamin C, (VITAMIN C) 500 mg tablet Take 500 mg by mouth once daily. - pantoprazole DR (PROTONIX) 40 mg tablet Take 40 mg by mouth once daily. - denosumab (PROLIA) 60 mg/mL syrg Inject 60 mg subcutaneously one time only. Twice daily - diltiazem (CARDIZEM) 120 mg tablet Take 120 mg by mouth four times daily. - amiodarone (PACERONE) 200 mg tablet Take by mouth once daily. - sertraline (ZOLOFT) 50 mg tablet Take 100 mg by mouth once daily. 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] 05/13/2018 Essential hypertension [I10] 05/13/2018 Pseudophakia of both eyes [Z96.1] 04/28/2019 A-fib (HCC) [I48.91] Anxiety [F41.9] Congenital heart disease [Q24.9] 1964 CLARISSE on CPAP [G47.33] Epidural hematoma (HCC) [S06.4XAA] 07/08/2024 Hematoma, epidural (HCC) [S06.4XAA] 07/08/2024 History of hiatal hernia [Z87.19] 07/09/2024 Mixed hyperlipidemia [E78.2] 07/09/2024 Rheumatoid arthritis involving multiple sites (*07/09/2024 Depression [F32.A] 07/09/2024 Pain of cervical spine [M54.2] 07/09/2024 Hypomagnesemia [E83.42] 07/09/2024 Encounter Status:Closed by FLAVIA DAWSON on 07/13/24 Normal [facility] THERAPY NTon 07-13-2024 THERAPY NT HNO ID: [id number] Author: MICHAEL AMIN PT DPT Service: Physical Therapy Author Type: Professor Of Business Type: Therapy (PT/OT/Speech/Resp) Filed: 07/13/2024 15:31 Note Text: Attestation signed by Michael Amin PT DPT at 07/13/2024 3:31 PM I reviewed and agree with the documentation corresponding to this therapy visit. SIGNATURE: Michael Amin PT DPT DATE: July 13, 2024 TIME: 3:30 PM Physical Therapy Treatment Summary SERVICE DATE: 07/13/2024 SERVICE TIME: 853 to 932 ROOM: [id number] PT 6 Clicks Score: 21 Total Joint Replacement Discharge Readiness: Cleared from Physical Therapy DISCHARGE RECOMMENDATIONS Home PT Recommended Discharge Disposition Due to: Functional status decline Recommended Discharge Equipment: Wheeled Walker ASSESSMENT Response to Therapy Interventions: Good Participation in Activities, Improved Tolerance for Activity Tolerated session fairly well w/ pt progressing well for home. Pt voiced understanding to all education including precautions, home safety/set up. Pt's questions were answered, Recommended family asisst w/ home set uponhomegoing for safety. PRECAUTIONS Spine, Brace Gina horne, log roll, PRIYA CURRENT HOSPITAL COURSE cervical epidural steroid injection yesterday on 07/08 resuling in weakness falls S/p T1-5 Laminectomy/ Hematoma evacuation 07/09 with ICU stay. 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 She sometimes has to assist husb w/ his self care but he can usually take care of himself. She does the driving. SUBJECTIVE per pt will have FFSU. Voiced concern w/ and his issues, stated FANTA viera w/ her sons. THERAPY DIAGNOSIS Reduced mobility-other TREATMENT INTERVENTIONS Therapeutic Exercise (01863), Gait Training (48868), Therapeutic Activity (86635) Timed Code Treatment (minutes): 39 Skilled Treatment Time (minutes): 39 TRAINING AND EDUCATION PROVIDED Anatomy and Impact on Deficits, Assistive Device Use, Car Transfers, Discharge Planning, Exercise Program, Falls Prevention, Gait Pattern, Reduction of Deviations, Home Safety, Home Set-up/Modifications , Precautions/Restrict ions, Role of Physical Therapy, Sitting Balance, Stair Navigation, Standing Balance, Transfers THERAPEUTIC SKILLS USED Cues for Sequencing/Proper Technique for Activity, Cuing Verbal, Movement Facilitation FUNCTIONAL STATUS Bed Mobility Rolling: Additional Information (NT) verbal education on log roll Supine To Sit: Additional Information (NT) Sit to Supine: Additional Information (NT) Scooting: Supervision Transfers Sit To Stand: Supervision slow to rise, good balance. no dizziness Stand To Sit: Supervision Bed to Chair Additional Information (NT) Bed To Chair Transfer Type: Stepping Bed To Chair Transfer Equipment: Wheeled Walker Gait Stand By Assistance vc to stay w/ in confines of ww during turning. No LOB, no dizziness, daniel LE buckling. vc to not to attempt ti turn head. Precautions reinforced. Gait Device: Wheeled Walker General Deviations/Observati ons: Narrow Base of Support, Step length decreased, Improper distancing from assistive device Gait Distance (feet): 25'x2,250' Stairs Contact Guard Assistance Stairs Device: Rail, Other: See Comment (No rail for entry, son to provide support.) Number of Stairs: 5 (x2 trials) GOALS Patient will demonstrate progress to optimize functional mobility, maximize activity tolerance and endurance to maximize function upon discharge. Able to Perform HEP with: Minimal Assistance Rolling with: Minimal Assistance Transfer Supine to/from Sit with: Minimal Assistance Transfer Sit to/from Stand with: Minimal Assistance Ambulate with: Minimal Assistance Distance: 50 Device: Wheeled Walker Ambulate Up and Down Steps with: Stand By Assistance Number of Steps: 3 Device: Rail Rehab Potential: Fair Progress Toward Goals: Progressing as expected PLAN PT Frequency: 5 Times Per Week Treatment Interventions: Education Plan for Next Visit: Bed Mobility, Gait Training, Sit to Stand Transfers, Walker Training, Stair Training SIGNATURE: Salina Rushing PTA PATIENT NAME: Arline (more content not included)... Normal [facility] Basic metabolic 2000 panelon 07-12-2024 Anion gap [Moles/Vol] mmol/L Low 5-16 [facility] Comment on above: Order Comment: Speci men Type: BLOOD SPECIMEN Ordering Facility: [facility] Address: [address] [place] [address] Performed By: #### 2 4323-8, 2276-4, 16906-9, 2777-1, 58090-6, 88102-0 #### [facility] CLIA [id number] [address] [place], [place] [address] [place] Calcium [Mass/Vol] 9.2 mg/dL Normal 8.5-10.5 [facility] Comment on above: Order Comment: Speci men Type: BLOOD SPECIMEN Ordering Facility: [facility] Address: [address] [place] [address] Performed By: #### 2 4323-8, 2276-4, 64328-4, 2777-1, 35766-8, 41790-9 #### [facility] CLIA [id number] [address] [place], [place] [address] [place] Chloride [Moles/Vol] 104 mmol/L Normal 98-107 [facility] Comment on above: Order Comment: Speci men Type: BLOOD SPECIMEN Ordering Facility: [facility] Address: [address] [place] [address] Performed By: #### 2 4323-8, 2276-4, 45117-1, 2777-1, 23096-7, 99041-2 #### [facility] CLIA [id number] [address] [place], [place] [address] [place] CO2 [Moles/Vol] 32 mmol/L Normal 21-32 [facility] Comment on above: Order Comment: Speci men Type: BLOOD SPECIMEN Ordering Facility: [facility] Address: [address] [place] [address] Performed By: #### 2 4323-8, 2276-4, 39973-7, 2777-1, 96822-5, 94443-9 #### [facility] CLIA [id number] [address] [place], [place] [address] [place] Creatinine [Mass/Vol] 0.49 mg/dL Low 0.51-0.95 [facility] Comment on above: Order Comment: Speci men Type: BLOOD SPECIMEN Ordering Facility: [facility] Address: [address] [place] [address] Result Comment: Huma ents receiving either N-Acetylcysteine (NAC) or Metamizole prior to venipuncture, may have falsely depressed results. Performed By: #### 2 4323-8, 2276-4, 68815-2, 2777-1, 12100-9, 93288-0 #### [facility] CLIA [id number] [address] [place], [place] [address] [place] Creatinine and Glomerular filtration rate.predicted panel (S/P/Bld) 96 mL/min/1.73m??? Normal >=60 [facility] Comment on above: Order Comment: Magalie lorenzo Type: BLOOD SPECIMEN Ordering Facility: [facility] Address: [address] [place] [address] Result Comment: Diana mated Glomerular Filtration Rate (eGFR) is calculated using the 2020 CKD-EPI creatinine equation. This equation utilizes serum creatinine, sex, and age as parameters. The creatinine assay has traceable calibration to isotope dilution-mass spectrometry. Refer to KDIGO guidelines for clinical interpretation. In patients with unstable renal function, e.g. those with acute kidney injury, the eGFR may not accurately reflect actual GFR. Performed By: #### 2 4323-8, 2276-4, 67543-5, 2777-1, 54436-8, 27841-0 #### [facility] CLIA [id number] [address] [place], [place] [address] [place] Glucose [Mass/Vol] 178 mg/dL High 70-100 [facility] Comment on above: Order Comment: Magalie lorenzo Type: BLOOD SPECIMEN Ordering Facility: [facility] Address: [address] [place] [address] Result Comment: The [place] [employer] (ADA) provides guidance for cutoff values for fasting glucose and random glucose. The ADA defines fasting as no caloric intake for at least 8 hours. Fasting plasma glucose results between 100 to 125 mg/dL indicate increased risk for diabetes (prediabetes). Fasting plasma glucose results greater than or equal to 126 mg/dL meet the criteria for diagnosis of diabetes. In the absence of unequivocal hyperglycemia, results should be confirmed by repeat testing. In a patient with classic symptoms of hyperglycemia or hyperglycemic crisis, random plasma glucose results greater than or equal to 200 mg/dL meet the criteria for diagnosis of diabetes. Reference: Standards of Medical Care in Diabetes 2016, [place] [employer]. Diabetes Care. 2016.39(Suppl 1). Results may be falsely elevated after the administration of Sulfapyridine. Results may be falsely depressed after the administration of Sulfasalazine. Performed By: #### 2 4323-8, 6-4, 95621-5, 2776-1, 56610-1, 85846-2 #### [facility] CLIA [id number] [address] [place], [place] [address] [place] Potassium [Moles/Vol] 4.1 mmol/L Normal 3.5-5.1 [facility] Comment on above: Order Comment: Speci men Type: BLOOD SPECIMEN Ordering Facility: [facility] Address: [address] [place] [address] Performed By: #### 2 4323-8, 2275-4, 81285-8, 2776-, 57505-3, 90349-5 #### [facility] CLIA [id number] [address] [place] [address] [place] Sodium [Moles/Vol] 138 mmol/L Normal 136-145 [facility] Comment on above: Order Comment: Speci men Type: BLOOD SPECIMEN Ordering Facility: [facility] Address: [address] [place] [address] Performed By: #### 2 4323-8, 2275-4, 32840-1, 2776-1, 62410-2, 22182-9 #### [facility] CLIA [id number] [address] [place] [address] [place] Urea nitrogen [Mass/Vol] 14 mg/dL Normal 7-26 [facility] Comment on above: Order Comment: Speci men Type: BLOOD SPECIMEN Ordering Facility: [facility] Address: [address] [place] [address] Performed By: #### 2 4323-8, 2275-4, 01124-8, 2776-1, 74413-3, 49207-9 #### [facility] CLIA [id number] [address] [place], [place] [address] [place] CBC W Auto Differential pane l (Bld)on 07-12-2024 Basophils (Bld) [#/Vol] 10*3/uL Normal <0.11 [facility] Comment on above: Order Comment: Speci men Type: BLOOD SPECIMEN Ordering Facility: [facility] Address: [address] [place] [address] Performed By: #### 2 4323-8, 2276-4, 35358-4, 2777-1, 95713-0, 97179-9 #### [facility] CLIA [id number] [address] [place], [place] [address] [place] Basophils/100 WBC (Bld) 0.1 % Normal [facility] Comment on above: Order Comment: Speci men Type: BLOOD SPECIMEN Ordering Facility: [facility] Address: [address] [place] [address] Performed By: #### 2 4323-8, 2276-4, 96219-0, 2777-1, 96864-4, 62379-3 #### [facility] CLIA [id number] [address] [place] [address] [place] Differential cell count method Nom (Bld) Auto Normal [facility] Comment on above: Order Comment: Speci men Type: BLOOD SPECIMEN Ordering Facility: [facility] Address: [address] [place] [address] Performed By: #### 2 4323-8, 2276-4, 97371-1, 2777-1, 89650-4, 06595-7 #### [facility] CLIA [id number] [address] [place], [place] [address] [place] Eosinophils (Bld) [#/Vol] 10*3/uL Normal <0.46 [facility] Comment on above: Order Comment: Speci men Type: BLOOD SPECIMEN Ordering Facility: [facility] Address: [address] [place] [address] Performed By: #### 2 4323-8, 2276-4, 99894-4, 2777-1, 39131-9, 12556-0 #### [facility] CLIA [id number] [address] [place], [place] [address] [place] Eosinophils/100 WBC (Bld) 0.3 % Normal [facility] Comment on above: Order Comment: Speci men Type: BLOOD SPECIMEN Ordering Facility: [facility] Address: [address] [place] [address] Performed By: #### 2 4323-8, 6-4, 01714-2, 2777-1, 04870-5, 22931-0 #### [facility] CLIA [id number] [address] [place] [address] [place] Erythrocyte distribution width (RBC) [Ratio] 15.2 % High 11.5-15.0 [facility] Comment on above: Order Comment: Speci men Type: BLOOD SPECIMEN Ordering Facility: [facility] Address: [address] [place] [address] Performed By: #### 2 4323-8, 6-4, 30068-2, 2777-1, 09000-1, 33772-4 #### [facility] CLIA [id number] [address] [place] [address] [place] Hematocrit (Bld) [Volume fraction] 35.4 % Low 36.0-46.0 [facility] Comment on above: Order Comment: Speci men Type: BLOOD SPECIMEN Ordering Facility: [facility] Address: [address] [place] [address] Performed By: #### 2 4323-8, 6-4, 91743-6, 2777-1, 62157-7, 55619-3 #### [facility] CLIA [id number] [address] [place], [place] [address] [place] Hemoglobin (Bld) [Mass/Vol] 11.2 g/dL Low 11.5-15.5 [facility] Comment on above: Order Comment: Speci men Type: BLOOD SPECIMEN Ordering Facility: [facility] Address: [address] [place] [address] Performed By: #### 2 4323-8, 6-4, 70225-8, 2777-1, 54656-1, 77182-9 #### [facility] CLIA [id number] [address] [place] [address] [place] Immature granulocytes (Bld) [#/Vol] 0.05 10*3/uL Normal <0.10 [facility] Comment on above: Order Comment: Speci men Type: BLOOD SPECIMEN Ordering Facility: [facility] Address: [address] [place], [place] [address] Performed By: #### 2 4323-8, 6-4, 77040-9, 2777-1, 08424-5, 19578-9 #### [facility] CLIA [id number] [address] [place], [place] [address] [place] Immature granulocytes/100 WBC (Bld) 0.7 % Normal [facility] Comment on above: Order Comment: Speci men Type: BLOOD SPECIMEN Ordering Facility: [facility] Address: [address] [place] [address] Performed By: #### 2 4323-8, 6-4, 15818-6, 2777-1, 09892-9, 19006-5 #### [facility] CLIA [id number] [address] [place] [address] [place] Lymphocytes (Bld) [#/Vol] 0.87 10*3/uL Low 1.00-4.00 [facility] Comment on above: Order Comment: Speci men Type: BLOOD SPECIMEN Ordering Facility: [facility] Address: [address] [place], [place] [address] Performed By: #### 2 4323-8, 6-4, 26107-5, 2777-1, 77434-7, 58406-7 #### [facility] CLIA [id number] [address] [place], [place] [address] [place] Lymphocytes/100 WBC (Bld) 11.9 % Normal [facility] Comment on above: Order Comment: Speci men Type: BLOOD SPECIMEN Ordering Facility: [facility] Address: [address] [place] [address] Performed By: #### 2 4323-8, 6-4, 44906-9, 7-1, 69870-3, 00412-1 #### [facility] CLIA [id number] [address] [place], [place] [address] [place] MCH (RBC) [Entitic mass] 29.2 pg Normal 26.0-34.0 [facility] Comment on above: Order Comment: Speci men Type: BLOOD SPECIMEN Ordering Facility: [facility] Address: [address] [place] [address] Performed By: #### 2 4323-8, 6-4, 32818-0, 7-1, 19373-8, 51571-9 #### [facility] CLIA [id number] [address] [place] [address] [place] MCHC (RBC) [Mass/Vol] 31.6 g/dL Normal 30.5-36.0 [facility] Comment on above: Order Comment: Speci men Type: BLOOD SPECIMEN Ordering Facility: [facility] Address: [address] [place] [address] Performed By: #### 2 4323-8, 6-4, 30445-0, 7-1, 24526-5, 34892-9 #### [facility] CLIA [id number] [address] [place], [place] [address] [place] MCV (RBC) [Entitic vol] 92.2 fL Normal 80.0-100.0 M [facility] Comment on above: Order Comment: Speci men Type: BLOOD SPECIMEN Ordering Facility: [facility] Address: [address] [place] [address] Performed By: #### 2 4323-8, 6-4, 05359-7, 2777-1, 39772-2, 88429-3 #### [facility] CLIA [id number] [address] [place] [address] [place] Monocytes (Bld) [#/Vol] 0.61 10*3/uL Normal <0.87 [facility] Comment on above: Order Comment: Speci men Type: BLOOD SPECIMEN Ordering Facility: [facility] Address: [address] [place], [place] [address] Performed By: #### 2 4323-8, 6-4, 01731-9, 7-1, 40044-3, 61320-4 #### [facility] CLIA [id number] [address] [place] [address] [place] Monocytes/100 WBC (Bld) 8.3 % Normal [facility] Comment on above: Order Comment: Speci men Type: BLOOD SPECIMEN Ordering Facility: [facility] Address: [address] [place], [place] [address] Performed By: #### 2 4323-8, 6-4, 64386-5, 7-1, 93571-4, 48037-6 #### [facility] CLIA [id number] [address] [place], [place] [address] [place] Neutrophils (Bld) [#/Vol] 5.75 10*3/uL Normal 1.45-7.50 [facility] Comment on above: Order Comment: Speci men Type: BLOOD SPECIMEN Ordering Facility: [facility] Address: [address] [place], [place] [address] Performed By: #### 2 4323-8, 6-4, 87567-2, 2777-1, 51435-6, 31383-2 #### [facility] CLIA [id number] [address] [place], [place] [address] [place] Neutrophils/100 WBC (Bld) 78.7 % Normal [facility] Comment on above: Order Comment: Speci men Type: BLOOD SPECIMEN Ordering Facility: [facility] Address: [address] [place], [place] [address] Performed By: #### 2 4323-8, 6-4, 66945-6, 7-1, 01871-5, 99339-2 #### [facility] CLIA [id number] [address] [place] [address] [place] Nucleated RBC (Bld) [#/Vol] 10*3/uL Normal <0.01 [facility] Comment on above: Order Comment: Speci men Type: BLOOD SPECIMEN Ordering Facility: [facility] Address: [address] [place] [address] Performed By: #### 2 4323-8, 2276-4, 42714-6, 2777-1, 77731-8, 41412-1 #### [facility] CLIA [id number] [address] [place], [place] [address] [place] Nucleated RBC/100 WBC (Bld) [Ratio] 0.0 /100 WBC Normal [facility] Comment on above: Order Comment: Speci men Type: BLOOD SPECIMEN Ordering Facility: [facility] Address: [address] [place] [address] Performed By: #### 2 4323-8, 6-4, 13775-4, 7-1, 12990-0, 56597-4 #### [facility] CLIA [id number] [address] [place], [place] [address] [place] Platelet mean volume (Bld) [Entitic vol] 11.3 fL Normal 9.0-12.7 [facility] Comment on above: Order Comment: Speci men Type: BLOOD SPECIMEN Ordering Facility: [facility] Address: [address] [place] [address] Performed By: #### 2 4323-8, 6-4, 14638-8, 7-1, 88850-0, 54632-1 #### [facility] CLIA [id number] [address] [place], [place] [address] [place] Platelets (Bld) [#/Vol] 92 10*3/uL Low 150-400 M [facility] Comment on above: Order Comment: Speci men Type: BLOOD SPECIMEN Ordering Facility: [facility] Address: [address] [place] [address] Result Comment: No c lot detected. Performed By: #### 2 4323-8, 2276-4, 48081-5, 2777-1, 09893-8, 28551-1 #### [facility] CLIA [id number] [address] [place], [place] [address] [facility] OF [place] RBC (Bld) [#/Vol] 3.84 10*6/uL Low 3.90-5.20 [facility] Comment on above: Order Comment: Speci men Type: BLOOD SPECIMEN Ordering Facility: [facility] Address: [address] [place] [address] Performed By: #### 2 4323-8, 2276-4, 02307-9, 2777-1, 48346-5, 29263-9 #### [facility] CLIA [id number] [address] [place], [place] [address] [facility] OF [place] WBC (Bld) [#/Vol] 7.31 10*3/uL Normal 3.70-11.00 [facility] Comment on above: Order Comment: Speci men Type: BLOOD SPECIMEN Ordering Facility: [facility] Address: [address] [place] [address] Performed By: #### 2 4323-8, 2276-4, 40915-4, 2777-1, 37062-2, 81200-1 #### [facility] CLIA [id number] [address] [place], [place] [address] [facility] CONSULT PROGon 07-12-2024 CONSULT PROG HNO ID: [id number] Author: JUSTINO PALMER APRN.EMERGENCY PLANNING AND RESPONSE MANAGER Service: Neurosurgery Author Type: Nurse Practitioner Type: Consult Progress Note Filed: 07/12/2024 11:32 Note Text: POST OP PROGRESS NOTE NEUROSURGERY PATIENT NAME: Ruben Lobo DATE of SERVICE: 07/12/2024 TIME of SERVICE: 9:20 AM ASSESSMENT AND PLAN: 79 year old female who is POD #3 s/p T1-T5 laminectomy, evacuation of epidural hematoma by Dr. Banegas Continue current post operative care Neurologically strength improved to 5/5 Pain control Regular diet Increase activity, up OOB BID, ambulate, PT/OT, IS CANDDB Q1H Continue [place] J collar Will DC drain today Continue medical management per the primary team We will FU outpatient in 2 weeks for incision check/staple removal Please call with any questions We will sign off Case and POC discussed with Dr. Banegas and RN Subjective INTERVAL HPI Patient is a 79 year old female who is POD #3 s/p T1-T5 laminectomy, evacuation of epidural hematoma by Dr. Banegas. She was seen and examined at bedside this morning. She is resting comfortably sitting up in the recliner. Pain controlled at this time. No overnight events. She denies chest pain, shortness of breath, nausea, vomiting, diarrhea. She complains of incisional neck pain. PRIYA drain holding suction, 30 cc output overnight, serosanguineous. Dressing is clean, dry, intact, aylin intact. We will DC drain today. Incision cleaned with chlorhexidine, dressing changed today. Vitals stable. Neurologically strength improved to 5/5. Current Facility-Administere d Medications Medication Dose Route Frequency potassium chloride ER 20-40 mEq tab(s) (KLOR-CON) 20-40 mEq ORAL/FEEDING TUBE PRN Or potassium chloride iv piggyback 20 mEq/100 mL 20 mEq INTRAVENOUS PRN phosphorus 500 mg tab(s) (K PHOS NEUTRAL) 500 mg ORAL/FEEDING TUBE PRN(NO DISPENSE) magnesium sulfate iv piggyback in sterile water 2 g 50 mL 2 g INTRAVENOUS PRN NaCl 0.9% iv flush bag 20 mL INTRAVENOUS PRN albuterol 2.5 mg /3 mL (0.083 %) 2.5 mg (PROVENTIL) 2.5 mg INHALATION q 4 H PRN ondansetron 4 mg tab(s) (ZOFRAN) 4 mg ORAL q 6 H PRN Or ondansetron (PF) 4 mg injection (ZOFRAN) 4 mg INTRAVENOUS q 6 H PRN docusate sodium 200 mg cap(s) (COLACE) 200 mg ORAL BID magnesium hydroxide 400 mg/5 mL 30 mL (MOM) 30 mL ORAL/FEEDING TUBE DAILY PRN sertraline 100 mg tab(s) (ZOLOFT) 100 mg ORAL AT BEDTIME bisacodyl EC 10 mg tab(s) (DULCOLAX) 10 mg ORAL DAILY PRN bisacodyl 10 mg suppository (DULCOLAX) 10 mg RECTAL DAILY PRN ceFAZolin iv piggyback 2 g in D5W (iso-osmotic) 100 mL (ANCEF) 2 g INTRAVENOUS q 6 HR polyethylene glycol 3350 17 g packet 17 g ORAL DAILY morphine 4 mg injection 4 mg INTRAVENOUS q 2 H PRN oxyCODONE-acetaminop hen 5-325 mg 1 tablet (PERCOCET) 1 tablet ORAL q 4 H PRN oxyCODONE-acetaminop hen 5-325 mg 2 tablet (PERCOCET) 2 tablet ORAL q 4 H PRN tiZANidine 4 mg tab(s) (ZANAFLEX) 4 mg ORAL q 8 H PRN acetaminophen 650 mg tab(s) (TYLENOL) 650 mg ORAL q [address] 40 mg tab(s) (PROTONIX) 40 mg ORAL DAILY (6 AM) dilTIAZem CD 120 mg cap(s) (CARDIZEM CD, CARTIA XT) 120 mg ORAL DAILY Objective PHYSICAL EXAM General Appearence: Alert and oriented x3, confused at times, follows commands, NAD, voice normal, speech clear, [place] J collar intact Eyes: PERRLA HEENT: normocephalic, atraumatic Respiratory: no respiratory distress, regular breathing, rate and effort Cardiovascular: regular rate and rhythm, peripheral pulses palpable, no edema Musculoskeletal: RUIZ x4 Neuro: Strength 5/5 RUE, 5/5 LUE 5/5 RLE, 5/5 LLE Sensation intact Skin: Incision with dressing C/D/I, aylin intact PRIYA drain with 30 cc output, serosanguineous, will DC drain today, incision cleaned with chlorhexidine, dressing changed today VITAL SIGNS 24 HOUR REVIEW: Patient Vitals for the past 24 hrs: BP Temp Temp src Pulse Resp SpO2 07/12/24 0727 164/95 36.4 ?C (97.6 ?F) -- 107 -- 93 % 07/11/24 2030 133/87 36.7 ?C (98.1 ?F) Oral 100 16 91 % 07/11/24 1450 139/84 36.7 ?C (98 ?F) Oral 115 14 89 % LABS: Recent Labs 07/11/24 0601 07/10/24 0352 WBC 8.47 13.29* HB 11.2* 11.7 HCT 35.5* 36.0 PLT 96* 95* NA 137 137 K 4.3 4.2 CHLOR 105 105 CO2 32 28 BUN 18 15 CREAT 0.62 0.51 GLUC 136* 149* CA 9.3 9.1 MG 1.9 2.1 P 1.8* 2.8 SIGNATURE: Justino Palmer APRN.CNP DATE: July 12, 2024 TIME: 9:20 AM Normal [facility] Magnesium SerPl-mCncon 07-12 Magnesium [Mass/Vol] 1.6 mg/dL Normal 1.6-2.6 [facility] Comment on above: Order Comment: Speci men Type: BLOOD SPECIMEN Ordering Facility: [facility] Address: [address] [place] [address] [place] [address] Performed By: #### 2 4323-8, 2276-4, 71379-6, 2777-1, 90010-7, 99649-8 #### [facility] CLIA [id number] [address] [place] [address] THERAPY NTon 07-12-2024 THERAPY NT HNO ID: [id number] Author: MICHAEL AMIN PT, DPT Service: Physical Therapy Author Type: Professor Of Business Type: Therapy (PT/OT/Speech/Resp) Filed: 07/12/2024 14:53 Note Text: Attestation signed by Michael Amin PT, DPT at 07/12/2024 2:53 PM I reviewed and agree with the documentation corresponding to this therapy visit. SIGNATURE: Michael Amin PT, DPT DATE: July 12, 2024 TIME: 2:53 PM Physical Therapy Treatment Summary SERVICE DATE: 07/12/2024 SERVICE TIME: 955 to 105 ROOM: [id number] PT 6 Clicks Score: 21 Total Joint Replacement Discharge Readiness: Cleared from Physical Therapy DISCHARGE RECOMMENDATIONS Home PT Recommended Discharge Disposition Due to: Functional status decline Recommended Discharge Equipment: Wheeled Walker ASSESSMENT Response to Therapy Interventions: Low Activity Tolerance Pt tolerated session fair. Pt is SBA/CGA for all aspects of fucntional mobilty. Pt is demonstrating increased overall functional mobility and with good safety and precautions intact. DPT addressed and agrees to discharge recommendation change from SNF to HHPT. Pt is concerned about assist for at home with parkinsons. PRECAUTIONS Spine, Brace Gina horne, log roll, PRIYA CURRENT HOSPITAL COURSE cervical epidural steroid injection yesterday on 07/08 resuling in weakness falls S/p T1-5 Laminectomy/ Hematoma evacuation 07/09 with ICU stay. 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 She sometimes has to assist husb w/ his self care but he can usually take care of himself. She does the driving. SUBJECTIVE Pt agreeable to therapy THERAPY DIAGNOSIS Reduced mobility-other TREATMENT INTERVENTIONS Therapeutic Activity (99330), Gait Training (72777) Timed Code Treatment (minutes): 57 Skilled Treatment Time (minutes): 57 TRAINING AND EDUCATION PROVIDED Advanced Balance Activities THERAPEUTIC SKILLS USED Cuing Verbal, Cuing Tactile, Cues for Sequencing/Proper Technique for Activity FUNCTIONAL STATUS Bed Mobility Rolling: Maximal Assistance Supine To Sit: Stand By Assistance, Contact Guard Assistance Sit to Supine: Stand By Assistance, Contact Guard Assistance Scooting: Stand By Assistance, Contact Guard Assistance Transfers Sit To Stand: Stand By Assistance, Contact Guard Assistance from EOB, chair, minimal cies for safety good follow through. Stand To Sit: Stand By Assistance, Contact Guard Assistance Bed to Chair Stand By Assistance, Contact Guard Assistance Bed To Chair Transfer Type: Stepping Bed To Chair Transfer Equipment: Wheeled Walker Gait Stand By Assistance, Contact Guard Assistance Pt demonstrating good FWW proximity/management , No instability, dizziness or LOB noted. Gait Device: Wheeled Walker General Deviations/Observati ons: Antalgic gait, Melvi decreased, Narrow Base of Support Gait Distance (feet): 226ft, 200ft Stairs Stand By Assistance, Contact Guard Assistance Stairs Device: Rail Number of Stairs: 10 GOALS Patient will demonstrate progress to optimize functional mobility, maximize activity tolerance and endurance to maximize function upon discharge. Able to Perform HEP with: Minimal Assistance Rolling with: Minimal Assistance Transfer Supine to/from Sit with: Minimal Assistance Transfer Sit to/from Stand with: Minimal Assistance Ambulate with: Minimal Assistance Distance: 50 Device: Wheeled Walker Ambulate Up and Down Steps with: Stand By Assistance Number of Steps: 3 Device: Rail Rehab Potential: Fair Progress Toward Goals: Progressing as expected PLAN PT Frequency: 5 Times Per Week Treatment Interventions: Education Plan for Next Visit: Gait Training SIGNATURE: Anthony Shay PTA PATIENT NAME: Ruben Lobo DATE: July 12, 2024 TIME: 11:11 AM Normal [facility] Basic metabolic 2000 panelon 07-11-2024 Anion gap [Moles/Vol] mmol/L Low 5-16 [facility] Comment on above: Order Comment: Speci men Type: BLOOD SPECIMEN Ordering Facility: [facility] Address: [address] [place], [place] [address] Performed By: #### 2 4323-8, 2276-4, 64113-5, 2777-1, 03338-2, 31696-1 #### [facility] CLIA [id number] [address] [place] [address] [place] Calcium [Mass/Vol] 9.3 mg/dL Normal 8.5-10.5 [facility] Comment on above: Order Comment: Speci men Type: BLOOD SPECIMEN Ordering Facility: [facility] Address: [address] [place] [address] Performed By: #### 2 4323-8, 2276-4, 44440-3, 2777-1, 91086-3, 67268-6 #### [facility] CLIA [id number] [address] [place] [address] [place] Chloride [Moles/Vol] 105 mmol/L Normal 98-107 [facility] Comment on above: Order Comment: Speci men Type: BLOOD SPECIMEN Ordering Facility: [facility] Address: [address] [place] [address] Performed By: #### 2 4323-8, 2276-4, 84187-6, 2777-1, 94966-9, 42333-6 #### [facility] CLIA [id number] [address] [place] [address] [place] CO2 [Moles/Vol] 32 mmol/L Normal 21-32 [facility] Comment on above: Order Comment: Speci men Type: BLOOD SPECIMEN Ordering Facility: [facility] Address: [address] [place] [address] Performed By: #### 2 4323-8, 6-4, 83954-9, 2777-1, 24767-9, 88668-1 #### [facility] CLIA [id number] [address] [place], [place] [address] [place] Creatinine [Mass/Vol] 0.62 mg/dL Normal 0.51-0.95 [facility] Comment on above: Order Comment: Speci men Type: BLOOD SPECIMEN Ordering Facility: [facility] Address: [address] [place] [address] Result Comment: Huma ents receiving either N-Acetylcysteine (NAC) or Metamizole prior to venipuncture, may have falsely depressed results. Performed By: #### 2 4323-8, 2276-4, 78657-2, 2777-1, 94840-3, 92770-8 #### [facility] CLIA [id number] [address] [place], [place] [address] [place] Creatinine and Glomerular filtration rate.predicted panel (S/P/Bld) 91 mL/min/1.73m??? Normal >=60 [facility] Comment on above: Order Comment: Speci men Type: BLOOD SPECIMEN Ordering Facility: [facility] Address: [address] [place] [address] Result Comment: Diana mated Glomerular Filtration Rate (eGFR) is calculated using the 2020 CKD-EPI creatinine equation. This equation utilizes serum creatinine, sex, and age as parameters. The creatinine assay has traceable calibration to isotope dilution-mass spectrometry. Refer to KDIGO guidelines for clinical interpretation. In patients with unstable renal function, e.g. those with acute kidney injury, the eGFR may not accurately reflect actual GFR. Performed By: #### 2 4323-8, 2276-4, 55101-6, 2777-1, 47487-6, 04182-5 #### [facility] CLIA [id number] [address] [place], [place] [address] [place] Glucose [Mass/Vol] 136 mg/dL High 70-100 [facility] Comment on above: Order Comment: Speci men Type: BLOOD SPECIMEN Ordering Facility: [facility] Address: [address] [place] [address] Result Comment: The [place] Diabetes [employer] (ADA) provides guidance for cutoff values for fasting glucose and random glucose. The ADA defines fasting as no caloric intake for at least 8 hours. Fasting plasma glucose results between 100 to 125 mg/dL indicate increased risk for diabetes (prediabetes). Fasting plasma glucose results greater than or equal to 126 mg/dL meet the criteria for diagnosis of diabetes. In the absence of unequivocal hyperglycemia, results should be confirmed by repeat testing. In a patient with classic symptoms of hyperglycemia or hyperglycemic crisis, random plasma glucose results greater than or equal to 200 mg/dL meet the criteria for diagnosis of diabetes. Reference: Standards of Medical Care in Diabetes 2016, [place] [employer] Association. Diabetes Care. 2016.39(Suppl 1). Results may be falsely elevated after the administration of Sulfapyridine. Results may be falsely depressed after the administration of Sulfasalazine. Performed By: #### 2 4323-8, 2276-4, 93647-4, 7-1, 98907-1, 12993-9 #### [facility] CLIA [id number] [address] [place], [place] [address] [place] Potassium [Moles/Vol] 4.3 mmol/L Normal 3.5-5.1 [facility] Comment on above: Order Comment: Speci men Type: BLOOD SPECIMEN Ordering Facility: [facility] Address: [facility] [place] [address] Performed By: #### 2 4323-8, 6-4, 96404-8, 2777-1, 04168-3, 75622-4 #### [facility] CLIA [id number] [address] [place], [place] [address] [place] Sodium [Moles/Vol] 137 mmol/L Normal 136-145 [facility] Comment on above: Order Comment: Speci men Type: BLOOD SPECIMEN Ordering Facility: [facility] Address: [address] [place] [address] Performed By: #### 2 4323-8, 6-4, 90162-2, 7-1, 61986-0, 65011-1 #### [facility] CLIA [id number] [address] [place], [place] [address] [place] Urea nitrogen [Mass/Vol] 18 mg/dL Normal 7-26 [facility] Comment on above: Order Comment: Speci men Type: BLOOD SPECIMEN Ordering Facility: [facility] Address: [address] [place] [address] Performed By: #### 2 4323-8, 6-4, 19312-7, 7-1, 44729-7, 46186-4 #### [facility] CLIA [id number] [address] [place], [place] [address] [place] CBC W Auto Differential pane l (Bld)on 07-11-2024 Basophils (Bld) [#/Vol] 10*3/uL Normal <0.11 M [facility] Comment on above: Order Comment: Speci men Type: BLOOD SPECIMEN Ordering Facility: [facility] Address: [address] [place] [address] Performed By: #### 2 4323-8, 6-4, 20456-4, 7-1, 50945-9, 63659-0 #### [facility] CLIA [id number] [address] [place] [address] [place] Basophils/100 WBC (Bld) 0.1 % Normal [facility] Comment on above: Order Comment: Speci men Type: BLOOD SPECIMEN Ordering Facility: [facility] Address: [address] [place] [address] Performed By: #### 2 4323-8, 2276-4, 05767-2, 2777-1, 35612-5, 72939-8 #### [facility] CLIA [id number] [address] [place], [place] [address] [place] Differential cell count method Nom (Bld) Auto Normal [facility] Comment on above: Order Comment: Speci men Type: BLOOD SPECIMEN Ordering Facility: [facility] Address: [address] [place] [address] Performed By: #### 2 4323-8, 2276-4, 93233-1, 2777-1, 78510-1, 28080-2 #### [facility] CLIA [id number] [address] [place], [place] [address] [place] Eosinophils (Bld) [#/Vol] 10*3/uL Normal <0.46 [facility] Comment on above: Order Comment: Speci men Type: BLOOD SPECIMEN Ordering Facility: [facility] Address: [address] [place] [address] Performed By: #### 2 4323-8, 6-4, 19432-6, 2777-1, 91073-1, 41837-4 #### [facility] CLIA [id number] [address] [place], [place] [address] [place] Eosinophils/100 WBC (Bld) 0.0 % Normal [facility] Comment on above: Order Comment: Speci men Type: BLOOD SPECIMEN Ordering Facility: [facility] Address: [address] [place] [address] Performed By: #### 2 4323-8, 2276-4, 78545-2, 2777-1, 67216-3, 02693-9 #### [facility] CLIA [id number] [address] [place], [place] [address] [place] Erythrocyte distribution width (RBC) [Ratio] 15.7 % High 11.5-15.0 [facility] Comment on above: Order Comment: Speci men Type: BLOOD SPECIMEN Ordering Facility: [facility] Address: [address] [place] [address] Performed By: #### 2 4323-8, 6-4, 92222-1, 2777-1, 81672-1, 14640-6 #### [facility] CLIA [id number] [address] [place] [address] [place] Hematocrit (Bld) [Volume fraction] 35.5 % Low 36.0-46.0 [facility] Comment on above: Order Comment: Speci men Type: BLOOD SPECIMEN Ordering Facility: [facility] Address: [address] [place] [address] Performed By: #### 2 4323-8, 6-4, 59488-6, 7-1, 41891-9, 03759-5 #### [facility] CLIA [id number] [address] [place], [place] [address] [place] Hemoglobin (Bld) [Mass/Vol] 11.2 g/dL Low 11.5-15.5 [facility] Comment on above: Order Comment: Speci men Type: BLOOD SPECIMEN Ordering Facility: [facility] Address: [address] [place] [address] Performed By: #### 2 4323-8, 6-4, 25145-0, 2777-1, 27733-1, 49987-5 #### [facility] CLIA [id number] [address] [place], [place] [address] [place] Immature granulocytes (Bld) [#/Vol] 0.09 10*3/uL Normal <0.10 [facility] Comment on above: Order Comment: Speci men Type: BLOOD SPECIMEN Ordering Facility: [facility] Address: [address] [place] [address] Performed By: #### 2 4323-8, 6-4, 20224-2, 2777-1, 55318-5, 49650-0 #### [facility] CLIA [id number] [address] [place], [place] [address] [place] Immature granulocytes/100 WBC (Bld) 1.1 % Normal [facility] Comment on above: Order Comment: Speci men Type: BLOOD SPECIMEN Ordering Facility: [facility] Address: [address] [place] [address] Performed By: #### 2 4323-8, 6-4, 22208-3, 7-1, 09603-3, 08765-3 #### [facility] CLIA [id number] [address] [place] [address] [place] Lymphocytes (Bld) [#/Vol] 0.61 10*3/uL Low 1.00-4.00 [facility] Comment on above: Order Comment: Speci men Type: BLOOD SPECIMEN Ordering Facility: [facility] Address: [address] [place] [address] Performed By: #### 2 4323-8, 6-4, 84666-2, 2777-1, 85425-1, 87671-2 #### [facility] CLIA [id number] [address] [place], [place] [address] [place] Lymphocytes/100 WBC (Bld) 7.2 % Normal [facility] Comment on above: Order Comment: Speci men Type: BLOOD SPECIMEN Ordering Facility: [facility] Address: [address] [place] [address] Performed By: #### 2 4323-8, 6-4, 47499-1, 7-1, 69319-4, 93903-1 #### [facility] CLIA [id number] [address] [place], [place] [address] [place] MCH (RBC) [Entitic mass] 29.0 pg Normal 26.0-34.0 [facility] Comment on above: Order Comment: Speci men Type: BLOOD SPECIMEN Ordering Facility: [facility] Address: [address] [place] [address] Performed By: #### 2 4323-8, 6-4, 53176-9, 2777-1, 31121-7, 38174-4 #### [facility] CLIA [id number] [address] [place], [place] [address] [place] MCHC (RBC) [Mass/Vol] 31.5 g/dL Normal 30.5-36.0 [facility] Comment on above: Order Comment: Speci men Type: BLOOD SPECIMEN Ordering Facility: [facility] Address: [address] [place] [address] Performed By: #### 2 4323-8, 6-4, 32805-4, 2777-1, 59635-8, 31141-7 #### [facility] CLIA [id number] [address] [place], [place] [address] [place] MCV (RBC) [Entitic vol] 92.0 fL Normal 80.0-100.0 [facility] Comment on above: Order Comment: Speci men Type: BLOOD SPECIMEN Ordering Facility: [facility] Address: [address] [place] [address] Performed By: #### 2 4323-8, 6-4, 72290-0, 277-1, 94798-0, 13945-9 #### [facility] CLIA [id number] [address] [place] [address] [place] Monocytes (Bld) [#/Vol] 0.91 10*3/uL High <0.87 [facility] Comment on above: Order Comment: Speci men Type: BLOOD SPECIMEN Ordering Facility: [facility] Address: [address] [place] [address] Performed By: #### 2 4323-8, 6-4, 88674-6, 277-1, 56426-3, 40045-6 #### [facility] CLIA [id number] [address] [place] [address] [place] Monocytes/100 WBC (Bld) 10.7 % Normal [facility] Comment on above: Order Comment: Speci men Type: BLOOD SPECIMEN Ordering Facility: [facility] Address: [address] [place] [address] Performed By: #### 2 4323-8, 6-4, 71973-3, 2776-1, 68447-1, 97131-9 #### [facility] CLIA [id number] [address] [place] [address] [place] Neutrophils (Bld) [#/Vol] 6.85 10*3/uL Normal 1.45-7.50 [facility] Comment on above: Order Comment: Speci men Type: BLOOD SPECIMEN Ordering Facility: [facility] Address: [address] [place] [address] Performed By: #### 2 4323-8, 2275-4, 09893-0, 7-1, 82617-5, 93341-9 #### [facility] CLIA [id number] [address] [place], [place] [address] [place] Neutrophils/100 WBC (Bld) 80.9 % Normal [facility] Comment on above: Order Comment: Speci men Type: BLOOD SPECIMEN Ordering Facility: [facility] Address: [address] [place] [address] Performed By: #### 2 4323-8, 6-4, 30229-2, 7-1, 35050-7, 61346-7 #### [facility] CLIA [id number] [address] [place], [place] [address] [place] Nucleated RBC (Bld) [#/Vol] 10*3/uL Normal <0.01 [facility] Comment on above: Order Comment: Speci men Type: BLOOD SPECIMEN Ordering Facility: [facility] Address: [address] [place] [address] Performed By: #### 2 4323-8, 6-4, 08524-5, 7-1, 34146-6, 78473-8 #### [facility] CLIA [id number] [address] [place], [place] [address] [place] Nucleated RBC/100 WBC (Bld) [Ratio] 0.0 /100 WBC Normal [facility] Comment on above: Order Comment: Speci men Type: BLOOD SPECIMEN Ordering Facility: [facility] Address: [address] [place] [address] Performed By: #### 2 4323-8, 2276-4, 42450-3, 2777-1, 04954-9, 75782-9 #### [facility] CLIA [id number] [address] [place], [place] [address] [place] Platelet mean volume (Bld) [Entitic vol] 11.6 fL Normal 9.0-12.7 [facility] Comment on above: Order Comment: Speci men Type: BLOOD SPECIMEN Ordering Facility: [facility] Address: [address] [place] [address] Performed By: #### 2 4323-8, 6-4, 49331-0, 7-1, 31841-9, 24955-0 #### [facility] CLIA [id number] [address] [place] [address] [place] Platelets (Bld) [#/Vol] 96 10*3/uL Low 150-400 M [facility] Comment on above: Order Comment: Speci men Type: BLOOD SPECIMEN Ordering Facility: [facility] Address: [address] [place] [address] Result Comment: No c lot detected. Performed By: #### 2 4323-8, 6-4, 72940-1, 7-1, 34049-6, 35621-2 #### [facility] CLIA [id number] [address] [place], [place] [address] [place] RBC (Bld) [#/Vol] 3.86 10*6/uL Low 3.90-5.20 [facility] Comment on above: Order Comment: Speci men Type: BLOOD SPECIMEN Ordering Facility: [facility] Address: [address] [place] [address] Performed By: #### 2 4323-8, 6-4, 10480-8, 7-1, 16464-1, 80255-1 #### [facility] CLIA [id number] [address] [place] [place] [address] [place] WBC (Bld) [#/Vol] 8.47 10*3/uL Normal 3.70-11.00 [facility] Comment on above: Order Comment: Speci men Type: BLOOD SPECIMEN Ordering Facility: [facility] Address: [address] [place] [address] Performed By: #### 2 4323-8, 2276-4, 56479-4, 2777-1, 90544-6, 67899-1 #### [facility] CLIA [id number] [address] [place] [place] [address] [facility] CONSULT PROGon 07-11-2024 CONSULT PROG HNO ID: [id number] Author: JUSTINO PALMER APRN.EMERGENCY PLANNING AND RESPONSE MANAGER Service: Neurosurgery Author Type: Nurse Practitioner Type: Consult Progress Note Filed: 07/11/2024 16:22 Note Text: POST OP PROGRESS NOTE NEUROSURGERY PATIENT NAME: Ruben Lobo DATE of SERVICE: 07/11/2024 TIME of SERVICE: 2:20 PM ASSESSMENT AND PLAN: 79 year old female who is POD #2 s/p T1-T5 laminectomy, evacuation of epidural hematoma by Dr. Banegas Continue current post operative care Neurologically strength improved Pain control Regular diet Increase activity, up OOB BID, ambulate, PT/OT, IS CANDDB Q1H Continue [place] J collar Continue drain Continue ABX until drain DC'd Continue medical management per the primary team Please call with any questions We will continue to follow Case and POC discussed with Dr. Banegas, RN, and family at bedside Subjective INTERVAL HPI Patient is a 79 year old female who is POD #2 s/p T1-T5 laminectomy, evacuation of epidural hematoma by Dr. Banegas. She was seen and examined at bedside. She is resting in bed with [place] J collar intact. Pain controlled at this time. No overnight events. She denies chest pain, shortness of breath, nausea, vomiting, diarrhea. She complains of incisional pain. PRIYA drain holding suction, 120 cc output overnight, serosanguineous. Dressing is clean, dry, intact, aylin intact. Vitals stable. Neurologically strength improved. Current Facility-Administere d Medications Medication Dose Route Frequency potassium chloride ER 20-40 mEq tab(s) (KLOR-CON) 20-40 mEq ORAL/FEEDING TUBE PRN Or potassium chloride iv piggyback 20 mEq/100 mL 20 mEq INTRAVENOUS PRN phosphorus 500 mg tab(s) (K PHOS NEUTRAL) 500 mg ORAL/FEEDING TUBE PRN(NO DISPENSE) magnesium sulfate iv piggyback in sterile water 2 g 50 mL 2 g INTRAVENOUS PRN NaCl 0.9% iv flush bag 20 mL INTRAVENOUS PRN albuterol 2.5 mg /3 mL (0.083 %) 2.5 mg (PROVENTIL) 2.5 mg INHALATION q 4 H PRN ondansetron 4 mg tab(s) (ZOFRAN) 4 mg ORAL q 6 H PRN Or ondansetron (PF) 4 mg injection (ZOFRAN) 4 mg INTRAVENOUS q 6 H PRN docusate sodium 200 mg cap(s) (COLACE) 200 mg ORAL BID magnesium hydroxide 400 mg/5 mL 30 mL (MOM) 30 mL ORAL/FEEDING TUBE DAILY PRN sertraline 100 mg tab(s) (ZOLOFT) 100 mg ORAL AT BEDTIME bisacodyl EC 10 mg tab(s) (DULCOLAX) 10 mg ORAL DAILY PRN bisacodyl 10 mg suppository (DULCOLAX) 10 mg RECTAL DAILY PRN ceFAZolin iv piggyback 2 g in D5W (iso-osmotic) 100 mL (ANCEF) 2 g INTRAVENOUS q 6 HR polyethylene glycol 3350 17 g packet 17 g ORAL DAILY morphine 4 mg injection 4 mg INTRAVENOUS q 2 H PRN oxyCODONE-acetaminop hen 5-325 mg 1 tablet (PERCOCET) 1 tablet ORAL q 4 H PRN oxyCODONE-acetaminop hen 5-325 mg 2 tablet (PERCOCET) 2 tablet ORAL q 4 H PRN tiZANidine 4 mg tab(s) (ZANAFLEX) 4 mg ORAL q 8 H PRN acetaminophen 650 mg tab(s) (TYLENOL) 650 mg ORAL q [address] 40 mg tab(s) (PROTONIX) 40 mg ORAL DAILY (6 AM) dilTIAZem CD 120 mg cap(s) (CARDIZEM CD, CARTIA XT) 120 mg ORAL DAILY Objective PHYSICAL EXAM General Appearence: Alert and oriented x3, confused at times, follows commands, NAD, voice normal, speech clear, [place] J collar intact Eyes: PERRLA HEENT: normocephalic, atraumatic Respiratory: no respiratory distress, regular breathing, rate and effort Cardiovascular: regular rate and rhythm, peripheral pulses palpable, no edema Musculoskeletal: RUIZ x4 Neuro: Strength 5/5 RUE, 5/5 LUE 5/5 RLE, 5/5 LLE Sensation intact Skin: Incision with dressing C/D/I, aylin intact PRIYA drain with 120 cc output, serosanguineous VITAL SIGNS 24 HOUR REVIEW: Patient Vitals for the past 24 hrs: BP Temp Temp src Pulse Resp SpO2 07/11/24 1450 139/84 36.7 ?C (98 ?F) Oral 115 14 89 % 07/11/24 0829 121/76 36.8 ?C (98.3 ?F) -- 105 -- 93 % 07/11/24 0346 109/68 36.7 ?C (98 ?F) Oral 103 14 90 % 07/11/24 0009 134/86 36.6 ?C (97.9 ?F) Oral 104 16 97 % 07/10/24 2105 131/81 36.3 ?C (97.4 ?F) Oral 103 19 97 % LABS: Recent Labs 07/11/24 0601 07/10/24 0352 07/09/24 0059 WBC 8.47 13.29* 9.69 HB 11.2* 11.7 12.9 HCT 35.5* 36.0 40.5 PLT 96* 95* 105* INR -- -- 1.0 APTT -- -- 25.4 NA 137 137 139 K 4.3 4.2 4.0 CHLOR 105 105 104 CO2 32 28 28 BUN 18 15 15 CREAT 0.62 0.51 0.58 GLUC 136* 149* 150* CA 9.3 9.1 9.7 MG 1.9 2.1 1.7 P 1.8* 2.8 4.2 SIGNATURE: Justino Palmer APRN.EMERGENCY PLANNING AND RESPONSE MANAGER DATE: July 11, 2024 TIME: 2:20 PM [facility] Calcium.ionized [Moles/Vol]o n 07-11-2024 Calcium.ionized (Bld) [Mass/Vol] 1.22 mmol/L Normal 1.08-1.30 [facility] Comment on above: Order Comment: Speci men Type: BLOOD SPECIMEN Ordering Facility: [facility] Address: [address] [place] [address] Performed By: #### 2 4323-8, 6-4, 26412-0, 2777-1, 38031-3, 31793-7 #### [facility] CLIA [id number] [address] [place] [address] [place] Calcium.ionized adjusted to pH 7.4 (Bld) [Moles/Vol] 1.19 mmol/L Normal 1.08-1.30 [facility] Comment on above: Order Comment: Speci men Type: BLOOD SPECIMEN Ordering Facility: [facility] Address: [address] [place] [address] Performed By: #### 2 4323-8, 6-4, 70336-3, 2777-1, 32946-0, 52697-9 #### [facility] CLIA [id number] [address] [place], [place] [address] [place] Magnesium SerPl-mCncon 07-11 Magnesium [Mass/Vol] 1.9 mg/dL Normal 1.6-2.6 [facility] Comment on above: Order Comment: Speci men Type: BLOOD SPECIMEN Ordering Facility: [facility] Address: [address] [place] [address] Performed By: #### 2 4323-8, 6-4, 31668-7, 2777-1, 50323-1, 98968-9 #### [facility] CLIA [id number] [address] [place], [place] [address] [place] Phosphate SerPl-mCncon 07-11 Phosphate [Mass/Vol] 1.8 mg/dL Low 2.5-4.9 [facility] Comment on above: Order Comment: Speci men Type: BLOOD SPECIMEN Ordering Facility: [facility] Address: [address] [place] [address] Result Comment: Elev ated m-protein (paraprotein) levels in the serum may be exhibited in patients with monoclonal gammopathies, causing falsely elevated inorganic phosphorus results. Performed By: #### 2 4323-8, 2276-4, 18776-8, 2777-1, 12412-7, 37026-4 #### [facility] CLIA [id number] [address] THERAPY NTon 07-11-2024 THERAPY NT HNO ID: [id number] Author: GIANLUCA AVILEZ, OTR/L Service: Occupational Therapy Author Type: Occupational Therapist Type: Therapy (PT/OT/Speech/Resp) Filed: 07/11/2024 12:31 Note Text: Occupational Therapy Evaluation Summary SERVICE DATE: 07/11/2024 SERVICE TIME: 45 to 1015 ROOM: [id number] OT 6 Clicks Score: 15 DISCHARGE RECOMMENDATIONS Subacute/SNF Recommended Discharge Disposition Comments: Pt not safe for return home at this time d/t husb unable to assist and pt having some confusion and difficulty focusing at this time. Recommended Discharge Disposition Due to: Functional deficits requiring ongoing therapy service prior to discharge home. Anticipated Discharge Needs: Supervision at Home Recommended Discharge Equipment: To Be Determined ASSESSMENT Response to Therapy Interventions: Good Participation in Activities, Needs Frequent Redirection or Reinstruction Tolerated OT well once able to get engaged in tasks at hand. She would benefit from continued OT to prepare for return home. PRECAUTIONS Spine, Brace Gina horne, log roll, PRIYA CURRENT HOSPITAL COURSE cervical epidural steroid injection yesterday on 07/08 resuling in weakness falls S/p T1-5 Laminectomy/ Hematoma evacuation 07/09 with ICU stay. 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 She sometimes has to assist husb w/ his self care but he can usually take care of himself. She does the driving. Baseline Cognition: Oriented to self, Oriented to place, Oriented to time, Oriented to situation SUBJECTIVE Will you help me dial this number Pt trying to get a hold of insurance company but having difficulty. Advised nurse and she was to assist pt w/ her concern COGNITION Orientation Deficits: Other: See Comment (Orinted to self. Difficulty figuring out how to use phone for insurace information. At times calling out for family members and forgetting that she is in the hospital. Oriented to month but not exact date) Responsiveness: Alert Follows Commands: 1-step Commands Attention Deficits: Distractible THERAPY DIAGNOSIS Decreased activities of daily living (ADL) TREATMENT INTERVENTIONS Evaluation, Self Fci Management (33332) Timed Code Treatment (minutes): 16 Skilled Treatment Time (minutes): 31 TRAINING AND EDUCATION PROVIDED Activity Adaptation/Compensat ory Strategies, Assistive Device Use, Bed Mobility, Benefits of In-Hospital Mobility, Functional Mobility Involving ADLs, Lower Extremity Dressing, Role of Occupational Therapy, Transfer - Bed to Chair THERAPEUTIC SKILLS USED Cues for Sequencing/Proper Technique for Activity, Management of Critical Lines, Tubes and/or Drains, Movement Facilitation FUNCTIONAL STATUS Activities of Daily Living Assist Level Additional Information Feeding Set Up Grooming Minimal Assistance Bathing Upper Body Minimal Assistance Bathing Lower Body Moderate Assistance Dressing Upper Body Minimal Assistance Dressing Lower Body Moderate Assistance Toileting Maximal Assistance Mobility Assist Level Additional Information Bed Mobility Rolling: Minimal Assistance Supine To Sit: Moderate Assistance Sit to Stand Moderate Assistance, Additional Information (mod to min assist) Stand to Sit Minimal Assistance Bed to Chair Moderate Assistance Bed To Chair Transfer Type: Stepping Bed To Chair Transfer Equipment: Wheeled Walker Toilet/Commode Shower Functional Mobility GOALS Patient will demonstrate progress to optimize self-care activities, cognitive and/or coping to maximize function upon discharge. Grooming with: Supervision Upper Body Bathing with: Supervision Upper Body Dressing with: Supervision Lower Body Bathing with: Supervision Lower Body Dressing with: Supervision Toilet Hygiene with: Supervision Toilet Transfer with: Supervision Additional Goal 1: Supervision functional mobility for getting around the house staying on the main level. Additional Goal 2: Pt will be instructed in spine precautions, adaptive techniques/equipment and demo understanding w/ min cueing for follow through w/ no signs of confusion Rehab Potential: Good PLAN OT Frequency: Once Daily Treatment Interventions: Self Care/Home Management, Functional Mobility Training, Balance Training, Cognitive Training Plan for Next Visit: Bat (more content not included)... Normal [facility] Basic metabolic 2000 panelon 07-10-2024 Anion gap [Moles/Vol] 4 mmol/L Low 5-16 [facility] Comment on above: Order Comment: Speci men Type: BLOOD SPECIMEN Ordering Facility: [facility] Address: [address] [place] [address] Performed By: #### 3 255-7, 76865-6, 11665-9 #### [facility] CLIA [id number] [address] [place] [address] [place] Calcium [Mass/Vol] 9.1 mg/dL Normal 8.5-10.5 [facility] Comment on above: Order Comment: Speci men Type: BLOOD SPECIMEN Ordering Facility: [facility] Address: [address] [place] [address] Performed By: #### 3 255-7, 02680-2, 11571-1 #### [facility] CLIA [id number] [address] [place] [address] [place] Chloride [Moles/Vol] 105 mmol/L Normal 98-107 [facility] Comment on above: Order Comment: Speci men Type: BLOOD SPECIMEN Ordering Facility: [facility] Address: [address] [place] [address] Performed By: #### 3 255-7, 65142-1, 04690-6 #### [facility] CLIA [id number] [address] [place] [address] [place] CO2 [Moles/Vol] 28 mmol/L Normal 21-32 [facility] Comment on above: Order Comment: Speci men Type: BLOOD SPECIMEN Ordering Facility: [facility] Address: [address] [place] [address] Performed By: #### 3 255-7, 74235-8, 46909-5 #### [facility] CLIA [id number] [address] [place] [address] [place] Creatinine [Mass/Vol] 0.51 mg/dL Normal 0.51-0.95 [facility] Comment on above: Order Comment: Magalie lorenzo Type: BLOOD SPECIMEN Ordering Facility: [facility] Address: [address] [facility] [place] [address] Result Comment: Huma ents receiving either N-Acetylcysteine (NAC) or Metamizole prior to venipuncture, may have falsely depressed results. Performed By: #### 3 255-7, 43545-2, 28009-4 #### [facility] CLIA [id number] [address] [place] [address] Creatinine and Glomerular filtration rate.predicted panel (S/P/Bld) 95 mL/min/1.73m??? Normal >=60 [facility] Comment on above: Order Comment: Magalie lorenzo Type: BLOOD SPECIMEN Ordering Facility: [facility] Address: [address] [place] [address] Result Comment: Diana mated Glomerular Filtration Rate (eGFR) is calculated using the 2020 CKD-EPI creatinine equation. This equation utilizes serum creatinine, sex, and age as parameters. The creatinine assay has traceable calibration to isotope dilution-mass spectrometry. Refer to KDIGO guidelines for clinical interpretation. In patients with unstable renal function, e.g. those with acute kidney injury, the eGFR may not accurately reflect actual GFR. Performed By: #### 3 255-7, 96382-5, 93628-7 #### [facility] CLIA [id number] [address] [place] [address] [place] Glucose [Mass/Vol] 149 mg/dL High 70-100 [facility] Comment on above: Order Comment: Magalie lorenzo Type: BLOOD SPECIMEN Ordering Facility: [facility] Address: [address] [place] [address] Result Comment: The [place] [employer] (ADA) provides guidance for cutoff values for fasting glucose and random glucose. The ADA defines fasting as no caloric intake for at least 8 hours. Fasting plasma glucose results between 100 to 125 mg/dL indicate increased risk for diabetes (prediabetes). Fasting plasma glucose results greater than or equal to 126 mg/dL meet the criteria for diagnosis of diabetes. In the absence of unequivocal hyperglycemia, results should be confirmed by repeat testing. In a patient with classic symptoms of hyperglycemia or hyperglycemic crisis, random plasma glucose results greater than or equal to 200 mg/dL meet the criteria for diagnosis of diabetes. Reference: Standards of Medical Care in Diabetes 2016, [place] [employer] Association. Diabetes Care. 2016.39(Suppl 1). Results may be falsely elevated after the administration of Sulfapyridine. Results may be falsely depressed after the administration of Sulfasalazine. Performed By: #### 3 255-7, 38855-2, 14902-5 #### [facility] CLIA [id number] [address] [place] [address] [place] Potassium [Moles/Vol] 4.2 mmol/L Normal 3.5-5.1 [facility] Comment on above: Order Comment: Magalie lorenzo Type: BLOOD SPECIMEN Ordering Facility: [facility] Address: [address] [place] [address] Performed By: #### 3 255-7, 75995-3, 28739-4 #### [facility] CLIA [id number] [address] [place] [address] [place] Sodium [Moles/Vol] 137 mmol/L Normal 136-145 [facility] Comment on above: Order Comment: Magalie lorenzo Type: BLOOD SPECIMEN Ordering Facility: [facility] Address: [address] [place] [address] Performed By: #### 3 255-7, 15217-7, 59700-4 #### [facility] CLIA [id number] [address] [place], [place] [address] [place] Urea nitrogen [Mass/Vol] 15 mg/dL Normal 7-26 [facility] Comment on above: Order Comment: Magalie lorenzo Type: BLOOD SPECIMEN Ordering Facility: [facility] Address: [address] [place] [address] Performed By: #### 3 255-7, 48021-9, 84510-2 #### [facility] CLIA [id number] [address] [place] [address] [place] CBC W Auto Differential pane l (Bld)on 07-10-2024 Basophils (Bld) [#/Vol] 10*3/uL Normal <0.11 [facility] Comment on above: Order Comment: Speci men Type: BLOOD SPECIMEN Ordering Facility: [facility] Address: [address] [place] [address] Performed By: #### 3 255-7, 56501-6, 99727-0 #### [facility] CLIA [id number] [address] [place] [address] [place] Basophils/100 WBC (Bld) 0.1 % Normal [facility] Comment on above: Order Comment: Speci men Type: BLOOD SPECIMEN Ordering Facility: [facility] Address: [address] [place] [address] Performed By: #### 3 255-7, 26047-6, 85803-6 #### [facility] CLIA [id number] [address] [place] [address] Differential cell count method Nom (Bld) Auto Normal [facility] Comment on above: Order Comment: Speci men Type: BLOOD SPECIMEN Ordering Facility: [facility] Address: [address] [place] [address] Performed By: #### 3 255-7, 89916-8, 97240-7 #### [facility] CLIA [id number] [address] [place] [address] [place] Eosinophils (Bld) [#/Vol] 10*3/uL Normal <0.46 [facility] Comment on above: Order Comment: Speci men Type: BLOOD SPECIMEN Ordering Facility: [facility] Address: [address] [place] [address] Performed By: #### 3 255-7, 04670-8, 60933-7 #### [facility] CLIA [id number] [address] [place] [address] [place] Eosinophils/100 WBC (Bld) 0.0 % Normal [facility] Comment on above: Order Comment: Speci men Type: BLOOD SPECIMEN Ordering Facility: [facility] Address: [address] [place] [address] Performed By: #### 3 255-7, 42414-3, 77366-1 #### [facility] CLIA [id number] [address] [place], [place] [address] [place] Erythrocyte distribution width (RBC) [Ratio] 15.2 % High 11.5-15.0 [facility] Comment on above: Order Comment: Speci men Type: BLOOD SPECIMEN Ordering Facility: [facility] Address: [address] [place] [address] Performed By: #### 3 255-7, 65590-1, 56251-2 #### [facility] CLIA [id number] [address] [place] [address] [place] Hematocrit (Bld) [Volume fraction] 36.0 % Normal 36.0-46.0 [facility] Comment on above: Order Comment: Speci men Type: BLOOD SPECIMEN Ordering Facility: [facility] Address: [address] [place] [address] Performed By: #### 3 255-7, 56525-8, 55366-0 #### [facility] CLIA [id number] [address] [place] [address] [place] Hemoglobin (Bld) [Mass/Vol] 11.7 g/dL Normal 11.5-15.5 [facility] Comment on above: Order Comment: Speci men Type: BLOOD SPECIMEN Ordering Facility: [facility] Address: [address] [place] [address] Performed By: #### 3 255-7, 19718-2, 32678-7 #### [facility] CLIA [id number] [address] [place] [address] [place] Immature granulocytes (Bld) [#/Vol] 0.10 10*3/uL High <0.10 [facility] Comment on above: Order Comment: Speci men Type: BLOOD SPECIMEN Ordering Facility: [facility] Address: [address] [place] [address] Performed By: #### 3 255-7, 01075-9, 09796-7 #### [facility] CLIA [id number] [address] [place] [address] [place] Immature granulocytes/100 WBC (Bld) 0.8 % Normal [facility] Comment on above: Order Comment: Speci men Type: BLOOD SPECIMEN Ordering Facility: [facility] Address: [address] [place] [address] Performed By: #### 3 255-7, 91433-3, 64836-4 #### [facility] CLIA [id number] [address] [place] [address] [place] Lymphocytes (Bld) [#/Vol] 0.46 10*3/uL Low 1.00-4.00 [facility] Comment on above: Order Comment: Speci men Type: BLOOD SPECIMEN Ordering Facility: [facility] Address: [address] [place] [address] Performed By: #### 3 255-7, 53339-0, 60206-3 #### [facility] CLIA [id number] [address] [place] [address] [place] Lymphocytes/100 WBC (Bld) 3.5 % Normal [facility] Comment on above: Order Comment: Speci men Type: BLOOD SPECIMEN Ordering Facility: [facility] Address: [address] [place] [address] Performed By: #### 3 255-7, 38489-7, 59769-2 #### [facility] CLIA [id number] [address] [place] [address] [place] MCH (RBC) [Entitic mass] 29.0 pg Normal 26.0-34.0 [facility] Comment on above: Order Comment: Speci men Type: BLOOD SPECIMEN Ordering Facility: [facility] Address: [address] [place] [address] Performed By: #### 3 255-7, 21353-8, 05772-7 #### [facility] CLIA [id number] [address] [place] [address] [place] MCHC (RBC) [Mass/Vol] 32.5 g/dL Normal 30.5-36.0 [facility] Comment on above: Order Comment: Speci men Type: BLOOD SPECIMEN Ordering Facility: [facility] Address: [address] [place] [address] Performed By: #### 3 255-7, 56583-8, 90295-3 #### [facility] CLIA [id number] [address] [place], [place] [address] [place] MCV (RBC) [Entitic vol] 89.3 fL Normal 80.0-100.0 [facility] Comment on above: Order Comment: Speci men Type: BLOOD SPECIMEN Ordering Facility: [facility] Address: [address] [place] [address] Performed By: #### 3 255-7, 33128-1, 27306-5 #### [facility] CLIA [id number] [address] [place] [address] [place] Monocytes (Bld) [#/Vol] 0.90 10*3/uL High <0.87 [facility] Comment on above: Order Comment: Speci men Type: BLOOD SPECIMEN Ordering Facility: [facility] Address: [address] [place] [address] Performed By: #### 3 255-7, 84858-8, 65546-6 #### [facility] CLIA [id number] [address] [place] [address] [place] Monocytes/100 WBC (Bld) 6.8 % Normal [facility] Comment on above: Order Comment: Speci men Type: BLOOD SPECIMEN Ordering Facility: [facility] Address: [address] [place] [address] Performed By: #### 3 255-7, 22573-5, 53509-3 #### [facility] CLIA [id number] [address] [place], [place] [address] [place] Neutrophils (Bld) [#/Vol] 11.82 10*3/uL High 1.45-7.50 [facility] Comment on above: Order Comment: Speci men Type: BLOOD SPECIMEN Ordering Facility: [facility] Address: [address] [place] [address] Performed By: #### 3 255-7, 32731-8, 53167-3 #### [facility] CLIA [id number] [address] [place] [address] [place] Neutrophils/100 WBC (Bld) 88.8 % Normal [facility] Comment on above: Order Comment: Speci men Type: BLOOD SPECIMEN Ordering Facility: [facility] Address: [address] [place] [address] Performed By: #### 3 255-7, 30757-2, 67272-9 #### [facility] CLIA [id number] [address] [place] [address] [place] Nucleated RBC (Bld) [#/Vol] 10*3/uL Normal <0.01 [facility] Comment on above: Order Comment: Speci men Type: BLOOD SPECIMEN Ordering Facility: [facility] Address: [address] [place] [address] Performed By: #### 3 255-7, 76872-0, 54224-8 #### [facility] CLIA [id number] [address] [place] [address] [place] Nucleated RBC/100 WBC (Bld) [Ratio] 0.0 /100 WBC Normal [facility] Comment on above: Order Comment: Speci men Type: BLOOD SPECIMEN Ordering Facility: [facility] Address: [address] [place] [address] Performed By: #### 3 255-7, 64089-0, 01909-0 #### [facility] CLIA [id number] [address] [place] [address] [place] Platelet mean volume (Bld) [Entitic vol] 11.5 fL Normal 9.0-12.7 [facility] Comment on above: Order Comment: Speci men Type: BLOOD SPECIMEN Ordering Facility: [facility] Address: [address] [place] [address] Performed By: #### 3 255-7, 87012-3, 07578-3 #### [facility] CLIA [id number] [address] [place] [address] [place] Platelets (Bld) [#/Vol] 95 10*3/uL Low 150-400 M [facility] Comment on above: Order Comment: Speci men Type: BLOOD SPECIMEN Ordering Facility: [facility] Address: [address] [place] [address] Result Comment: No c lot detected. Performed By: #### 3 255-7, 72600-2, 98508-5 #### [facility] CLIA [id number] [address] [place], [place] [address] [place] RBC (Bld) [#/Vol] 4.03 10*6/uL Normal 3.90-5.20 [facility] Comment on above: Order Comment: Speci men Type: BLOOD SPECIMEN Ordering Facility: [facility] Address: [address] [place] [address] Performed By: #### 3 255-7, 92706-4, 78300-9 #### [facility] CLIA [id number] [address] [place], [place] [address] [place] WBC (Bld) [#/Vol] 13.29 10*3/uL High 3.70-11.00 [facility] Comment on above: Order Comment: Speci men Type: BLOOD SPECIMEN Ordering Facility: [facility] Address: [address] [place] [address] Performed By: #### 3 255-7, 64533-3, 40418-6 #### [facility] CLIA [id number] [address] [place] [address] [facility] CONSULT PROGon 07-10-2024 CONSULT PROG HNO ID: [id number] Author: JUSTINO PALMER APRN.EMERGENCY PLANNING AND RESPONSE MANAGER Service: Neurosurgery Author Type: Nurse Practitioner Type: Consult Progress Note Filed: 07/10/2024 10:34 Note Text: POST OP PROGRESS NOTE NEUROSURGERY PATIENT NAME: Ruben Lobo DATE of SERVICE: 07/10/2024 TIME of SERVICE: 9:30 AM ASSESSMENT AND PLAN: 79 year old female who is POD #1 s/p T1-T5 laminectomy, evacuation of epidural hematoma by Dr. Banegas Continue current post operative care Neurologically strength improved Pain control Advance diet as tolerated Increase activity, up OOB BID, ambulate, PT/OT, IS CANDDB Q1H Continue [place] J collar Continue drain Continue ABX until drain DC'd Continue medical management per the primary ICU team Please call with any questions We will continue to follow Case and POC discussed with Dr. Banegas, RN, and family at bedside Subjective INTERVAL HPI Patient is a 79 year old female who is POD #1 s/p T1-T5 laminectomy, evacuation of epidural hematoma by Dr. Banegas. She was seen and examined at bedside this morning. She is resting in bed with cervical collar intact. Pain controlled at this time. No overnight events. She denies chest pain, shortness of breath, nausea, vomiting, diarrhea. She complains of incisional pain. PRIYA drain holding suction, 140 cc output overnight, serosanguineous. Dressing is clean, dry, intact, aylin intact. Vitals stable. Neurologically strength improved. Current Facility-Administere d Medications Medication Dose Route Frequency potassium chloride ER 20-40 mEq tab(s) (KLOR-CON) 20-40 mEq ORAL/FEEDING TUBE PRN Or potassium chloride iv piggyback 20 mEq/100 mL 20 mEq INTRAVENOUS PRN phosphorus 500 mg tab(s) (K PHOS NEUTRAL) 500 mg ORAL/FEEDING TUBE PRN(NO DISPENSE) magnesium sulfate iv piggyback in sterile water 2 g 50 mL 2 g INTRAVENOUS PRN NaCl 0.9% iv flush bag 20 mL INTRAVENOUS PRN albuterol 2.5 mg /3 mL (0.083 %) 2.5 mg (PROVENTIL) 2.5 mg INHALATION q 4 H PRN ondansetron 4 mg tab(s) (ZOFRAN) 4 mg ORAL q 6 H PRN Or ondansetron (PF) 4 mg injection (ZOFRAN) 4 mg INTRAVENOUS q 6 H PRN docusate sodium 200 mg cap(s) (COLACE) 200 mg ORAL BID magnesium hydroxide 400 mg/5 mL 30 mL (MOM) 30 mL ORAL/FEEDING TUBE DAILY PRN sertraline 100 mg tab(s) (ZOLOFT) 100 mg ORAL AT BEDTIME bisacodyl EC 10 mg tab(s) (DULCOLAX) 10 mg ORAL DAILY PRN bisacodyl 10 mg suppository (DULCOLAX) 10 mg RECTAL DAILY PRN ceFAZolin iv piggyback 2 g in D5W (iso-osmotic) 100 mL (ANCEF) 2 g INTRAVENOUS q 6 HR polyethylene glycol 3350 17 g packet 17 g ORAL DAILY morphine 4 mg injection 4 mg INTRAVENOUS q 2 H PRN oxyCODONE-acetaminop hen 5-325 mg 1 tablet (PERCOCET) 1 tablet ORAL q 4 H PRN oxyCODONE-acetaminop hen 5-325 mg 2 tablet (PERCOCET) 2 tablet ORAL q 4 H PRN tiZANidine 4 mg tab(s) (ZANAFLEX) 4 mg ORAL q 8 H PRN acetaminophen 650 mg tab(s) (TYLENOL) 650 mg ORAL q 6 H PRN amiodarone 200 mg tab(s) (PACERONE) 200 mg ORAL DAILY [START ON 07/11/2024] pantoprazole DR 40 mg tab(s) (PROTONIX) 40 mg ORAL DAILY (6 AM) dilTIAZem CD 120 mg cap(s) (CARDIZEM CD, CARTIA XT) 120 mg ORAL DAILY Objective PHYSICAL EXAM General Appearence: Alert and oriented x3, confused at times, follows commands, NAD, voice normal, speech clear, cervical collar intact Eyes: PERRLA HEENT: normocephalic, atraumatic Respiratory: no respiratory distress, regular breathing, rate and effort Cardiovascular: regular rate and rhythm, peripheral pulses palpable, no edema Musculoskeletal: RUIZ x4 Neuro: Strength 5/5 RUE, 5/5 LUE 5/5 RLE, 5/5 LLE Sensation intact Skin: Incision with dressing C/D/I, aylin intact PRIYA drain with 140 cc output, serosanguineous VITAL SIGNS 24 HOUR REVIEW: Patient Vitals for the past 24 hrs: BP Temp Temp src Pulse Resp SpO2 Weight 07/10/24 0904 -- -- -- 100 25 95 % -- 07/10/24 0744 -- 37.3 ?C (99.2 ?F) Oral -- -- -- -- 07/10/24 0700 119/69 -- -- 98 19 96 % -- 08/30/24 0600 121/71 -- -- 98 14 98 % -- 07/10/24 0500 120/73 -- -- 98 19 97 % -- 07/10/24 0425 -- -- -- -- -- -- 54.3 kg (119 lb 11.4 oz) 07/10/24 0400 141/84 36.6 ?C (97.9 ?F) Oral 97 17 98 % -- 07/10/24 0300 144/86 -- -- 97 19 99 % -- 07/10/24 0200 158/88 -- -- 97 19 99 % -- 07/10/24 0100 150/85 -- -- 97 18 99 % -- 07/10/24 0000 149/85 -- -- 96 18 99 % -- 07/09/24 2300 146/84 -- -- 97 22 98 % -- 07/09/24 2200 154/77 -- -- 97 20 98 % -- 07/09/24 2100 151/84 -- -- 96 22 97 % -- 07/09/24 2000 151/86 36.6 ?C (97.8 ?F) Oral 96 22 99 % -- 07/09/24 1900 168/93 -- -- 96 24 99 % -- 07/09/24 1830 168/101 -- -- 95 23 99 % -- 07/09/24 1800 166/88 -- -- 93 21 99 % -- 07/09/24 1745 150/93 -- -- 88 24 96 % -- 07/09/24 1730 164/91 -- -- 85 20 100 % -- 07/09/24 1715 155/94 -- -- 87 17 99 % -- 07/09/24 1700 149/91 -- -- 85 24 100 % -- 07/09/24 1645 153/85 -- -- 88 23 99 % -- 07/09/24 1630 153/81 -- -- 91 24 98 % -- 07/09/24 1615 -- -- -- 93 27 99 % -- 07/09/24 1600 -- -- -- 85 23 99 % (more content not included)... [facility] Calcium.ionized [Moles/Vol]o n 07-10-2024 Calcium.ionized (Bld) [Mass/Vol] 1.15 mmol/L Normal 1.08-1.30 [facility] Comment on above: Order Comment: Magalie lorenzo Type: BLOOD SPECIMEN Ordering Facility: [facility] Address: [address] [place] [address] Performed By: #### 3 255-7, 95400-7, 89431-6 #### [facility] CLIA [id number] [address] [place] [address] [place] Calcium.ionized adjusted to pH 7.4 (Bld) [Moles/Vol] 1.11 mmol/L Normal 1.08-1.30 [facility] Comment on above: Order Comment: Magalie lorenzo Type: BLOOD SPECIMEN Ordering Facility: [facility] Address: [address] [place] [address] Performed By: #### 3 255-7, 64500-3, 24368-2 #### [facility] CLIA [id number] [address] [place] [address] [place] Magnesium SerPl-mCncon 07-10 Magnesium [Mass/Vol] 2.1 mg/dL Normal 1.6-2.6 [facility] Comment on above: Order Comment: Magalie lorenzo Type: BLOOD SPECIMEN Ordering Facility: [facility] Address: [address] [place] [address] Performed By: #### 3 255-7, 40074-1, 90302-2 #### [facility] CLIA [id number] [address] [place], [place] [address] [place] NURSING PROGon 07-10-2024 NURSING PROG HNO ID: [id number] Author: MUSA OSEI, RN Service: Nursing Author Type: Registered Nurse Type: Nursing Progress Note Filed: 07/10/2024 12:45 Note Text: Report called to 5b; all questions addressed. All belongings sent with patient, family present. Normal [facility] Phosphate SerPl-mCncon 07-10 Phosphate [Mass/Vol] 2.8 mg/dL Normal 2.5-4.9 [facility] Comment on above: Order Comment: Speci men Type: BLOOD SPECIMEN Ordering Facility: [facility] Address: [address] [place] [address] Result Comment: Elev ated m-protein (paraprotein) levels in the serum may be exhibited in patients with monoclonal gammopathies, causing falsely elevated inorganic phosphorus results. Performed By: #### 3 255-7, 84443-9, 94737-4 #### [facility] CLIA [id number] [facility] [address] THERAPY NTon 07-10-2024 THERAPY NT HNO ID: [id number] Author: FLAVIA BAUMAN, PT, DPT Service: Physical Therapy Author Type: Physical Therapist Type: Therapy (PT/OT/Speech/Resp) Filed: 07/10/2024 14:42 Note Text: Physical Therapy Evaluation Summary SERVICE DATE: 07/10/2024 SERVICE TIME: 1351 to 1430 ROOM: [place] [address] PT 6 Clicks Score: 11 Total Joint Replacement Discharge Readiness: Cleared from Physical Therapy DISCHARGE RECOMMENDATIONS Subacute/SNF Recommended Discharge Disposition Due to: Functional status decline Recommended Discharge Equipment: Wheeled Walker ASSESSMENT Response to Therapy Interventions: Low Activity Tolerance Pt tolerated PT eval fair. Pt educated on spine precautions, log roll, and PT POC. Pt is max assitance with poor LE coordination, pain limiting. Implement acute care PT, recommend SNF PRECAUTIONS Spine, Brace Gina horne, log roll, PRIYA CURRENT HOSPITAL COURSE cervical epidural steroid injection yesterday on 07/08 resuling in weakness falls S/p T1-5 Laminectomy/ Hematoma evacuation 07/09 with ICU stay. 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 Falls noted due to hard to get up- requring intermittent assistance to achieve stand SUBJECTIVE THERAPY DIAGNOSIS Reduced mobility-other TREATMENT INTERVENTIONS Evaluation, Therapeutic Activity (86237) Timed Code Treatment (minutes): 24 Skilled Treatment Time (minutes): 39 TRAINING AND EDUCATION PROVIDED Advanced Balance Activities THERAPEUTIC SKILLS USED Physical Assist FUNCTIONAL STATUS Bed Mobility Rolling: Maximal Assistance Supine To Sit: Maximal Assistance Transfers Sit To Stand: Maximal Assistance, Additional Information From EOB and chair level, max cues, cues for breathing, strong posterior lean Stand To Sit: Maximal Assistance Bed to Chair Gait Maximal Assistance, Additional Information Very small slow shuffeled steps Gait Device: Wheeled Walker Gait Distance (feet): 3 feet, 4 feet Stairs GOALS Patient will demonstrate progress to optimize functional mobility, maximize activity tolerance and endurance to maximize function upon discharge. Able to Perform HEP with: Minimal Assistance Rolling with: Minimal Assistance Transfer Supine to/from Sit with: Minimal Assistance Transfer Sit to/from Stand with: Minimal Assistance Ambulate with: Minimal Assistance Distance: 50 Device: Wheeled Walker Ambulate Up and Down Steps with: Stand By Assistance Number of Steps: 3 Device: Rail Rehab Potential: Fair Progress Toward Goals: Progressing slower than expected PLAN PT Frequency: 5 Times Per Week Treatment Interventions: Education Plan for Next Visit: Gait Training SIGNATURE: Flavia Bauman PT, DPT PATIENT NAME: Ruben Lobo DATE: July 10, 2024 TIME: 2:42 PM [facility] THERAPY NT HNO ID: [id number] Author: FLAVIA BAUMAN PT, DPT Service: Physical Therapy Author Type: Physical Therapist Type: Therapy (PT/OT/Speech/Resp) Filed: 07/10/2024 08:15 Note Text: PHYSICAL THERAPY MISSED VISIT SERVICE DATE: 07/10/2024 SERVICE TIME: ROOM: [facility]-23 Patient not seen due to Clinical Appropriateness (Pt with BR orders). SIGNATURE: Flavia Bauman PT, DPT PATIENT NAME: Ruben Lobo DATE: July 10, 2024 TIME: 8:15 AM [facility] THERAPY NT HNO ID: [id number] Author: TODD COLON OTR/Xochitl Service: ? Author Type: Occupational Therapist Type: Therapy (PT/OT/Speech/Resp) Filed: 07/10/2024 08:06 Note Text: OCCUPATIONAL THERAPY MISSED VISIT SERVICE DATE: 07/10/2024 SERVICE TIME: 0805 ROOM: [facility]-23 Patient not seen due to Clinical Appropriateness (Pt with active bedrest oders. Will intiate OT eval when medically cleared for OOB activity.). SIGNATURE: CHETAN Kamara/Xochitl PATIENT NAME: Ruben Lobo DATE: July 10, 2024 TIME: 8:06 AM [facility] ANES POSTPROC EVALon 024 ANES POSTPROC EVAL HNO ID: [id number] Author: JONO LEBLANC MD Service: Anesthesiology Author Type: Anesthesiologist Type: Anesthesia Postprocedure Evaluation Filed: 07/09/2024 16:03 Note Text: POST ANESTHESIA EVALUATION NOTE : 1945 Procedure Summary Date: 07/09/24 Room / Location: OR 05 / OR Anesthesia Start: 1104 Anesthesia Stop: 1406 Procedure: CERVICOTHORACIC LAMINECTOMY FOR EVACUATION OF EPIDURAL COLLECTION (Bilateral: Spine Thoracic) Diagnosis: Epidural hematoma (HCC) (Epidural hematoma (HCC) [S06.4XAA]) Surgeons: Abdulaziz Banegas MD Responsible Provider: Jono Leblanc MD Anesthesia Type: general ASA Status: 3 Anesthesia Type: general Airway Type: ETT Last Vitals Vitals Value Taken Time BP 138/82 07/09/24 1545 Temp 36.7 ?C (98 ?F) 07/09/24 1400 Pulse 85 07/09/24 1601 Resp 23 07/09/24 1601 SpO2 95 % 07/09/24 1549 Vitals shown include unfiled device data. Post Anesthesia Patient Status Patient Evaluation: PACU. PACU/ICU Patient Condition: stable. Anticipated Disposition: ICU planned admission. Neurological Status: aware and responsive. Pulmonary Status: breathing comfortably on room air Airway Control: returned to baseline unsupported. Cardiovascular Status: stable. Pain Management: clinically adequate Postoperative Hydration: acceptable. Intraoperative Events: no significant anesthesia events Post Operative Nausea/Vomiting Status: no significant post operative nausea or vomiting Recommendation: continue current plan of care. Anesthesia Observations No Documentation SIGNATURE: Jono Leblanc MD PATIENT NAME: Ruben Lobo DATE: July 09, 2024 TIME: 4:03 PM CSN: [id number] [facility] ANES PRE-OPon 08-29-2024 ANES PRE-OP HNO ID: [id number] Author: JONO LEBLANC MD Service: Anesthesiology Author Type: Anesthesiologist Type: Anesthesia Preprocedure Evaluation Filed: 07/09/2024 10:44 Note Text: ANESTHESIOLOGY DAY OF SURGERY NOTE : 1945 Procedure Information Date/Time: 07/09/24 1000 Procedure: CERVICOTHORACIC LAMINECTOMY FOR EVACUATION OF EPIDURAL COLLECTION (Bilateral: Spine Thoracic) Location: MR OR 05 / MR OR Surgeons: Abdulaziz Banegas MD Estimated body mass index is 21.37 kg/m? as calculated from the following: Height as of this encounter: 154.9 cm (5' 1). Weight as of this encounter: 51.3 kg (113 lb 1.5 oz). Most recent hematocrit and potassium results: Hematocrit 40.5 07/09/2024 Potassium 4.0 07/09/2024 Relevant Problems ANESTHESIA (+) CLARISSE on CPAP CARDIO (+) A-fib (HCC) (+) Essential hypertension NEURO-PSYCH (+) History of hiatal hernia PULMONARY (+) CLARISSE on CPAP Other (+) Rheumatoid arthritis involving multiple sites (HCC) I - PHYSICAL EVALUATION AIRWAY Patient intubated: No. Tracheostomy tube not present Mallampati: II. TM distance: >3 FB. Neck ROM: full ROM without neurological symptoms. Mouth opening: adequate. Short neck: no. Thick neck: no DENTAL Dentures, upper: complete. Additional exam findings: yes. CARDIOVASCULAR Rhythm: irregular PULMONARY Breath sounds clear to auscultation. II - ANESTHESIA PLAN ASA Score: 3 Anesthetic Plan: general Airway type: ETT The patient is not a current smoker. NPO Status: adequate Beta Kelly Monitoring Plan Monitoring plan: standard ASA and invasive hemodynamic monitoring. Monitoring method: arterial Line Post Procedure Analgesic Plan Postoperative analgesic plan: parenteral or oral opioids. Informed Consent Anesthetic risks, benefits, alternatives, personnel and consent discussed: yes. Patient / Responsible Democrat agrees to proceed: yes Patient / Surrogate agrees to blood products: Yes Vitals Value Taken Time BP 148/88 07/09/24 1000 Pulse 95 07/09/24 1028 Resp 35 07/09/24 1017 Temp SpO2 97 % 07/09/24 1028 Vitals shown include unfiled device data. Facility-Administere d Medications as of 07/09/2024 Medication Dose Route Frequency - potassium chloride ER 20-40 mEq tab(s) (KLOR-CON) 20-40 mEq ORAL/FEEDING TUBE PRN Or - potassium chloride iv piggyback 20 mEq/100 mL 20 mEq INTRAVENOUS PRN - phosphorus 500 mg tab(s) (K PHOS NEUTRAL) 500 mg ORAL/FEEDING TUBE PRN(NO DISPENSE) - magnesium sulfate iv piggyback in sterile water 2 g 50 mL 2 g INTRAVENOUS PRN - NaCl 0.9% iv flush bag 20 mL INTRAVENOUS PRN - lactated ringers iv infusion 50 mL/hr INTRAVENOUS CONTINUOUS - albuterol 2.5 mg /3 mL (0.083 %) 2.5 mg (PROVENTIL) 2.5 mg INHALATION q 4 H PRN - famotidine 20 mg injection (PEPCID) 20 mg INTRAVENOUS BID - ondansetron 4 mg tab(s) (ZOFRAN) 4 mg ORAL q 6 H PRN Or - ondansetron (PF) 4 mg injection (ZOFRAN) 4 mg INTRAVENOUS q 6 H PRN - docusate sodium 200 mg cap(s) (COLACE) 200 mg ORAL BID - magnesium hydroxide 400 mg/5 mL 30 mL (MOM) 30 mL ORAL/FEEDING TUBE DAILY PRN - sertraline 100 mg tab(s) (ZOLOFT) 100 mg ORAL AT BEDTIME - magnesium sulfate in sterile water 4 g in 100 mL iv piggyback 4 g INTRAVENOUS ONCE - ceFAZolin iv piggyback 2 g in D5W (iso-osmotic) 100 mL (ANCEF) 2 g INTRAVENOUS Pre-Op Once Outpatient Medications as of 07/09/2024 Medication Sig - ascorbic acid, vitamin C, (VITAMIN C) 500 mg tablet Take 500 mg by mouth once daily. - pantoprazole DR (PROTONIX) 40 mg tablet Take 40 mg by mouth once daily. - denosumab (PROLIA) 60 mg/mL syrg Inject 60 mg subcutaneously one time only. Twice daily - diltiazem (CARDIZEM) 120 mg tablet Take 120 mg by mouth four times daily. - apixaban (ELIQUIS ORAL) Take 5 mg by mouth once daily. - amiodarone (PACERONE) 200 mg tablet Take by mouth once daily. - sertraline (ZOLOFT) 50 mg tablet Take 100 mg by mouth once daily. I have interviewed and examined the patient. I have reviewed the medical record and/or the pre-anesthesia evaluation, pertinent labs, and test results. This contains updated information obtained within 48 hours of Surgery/Procedure. SIGNATURE: Jono Leblanc MD PATIENT NAME: Ruben Lobo DATE: July 09, 2024 TIME: 10:29 AM CSN: [id number] [facility] BLOOD BANK COMMENTon 024 BLOOD BANK COMMENT See Comment [facility] Comment on above: Order Comment: Speci men Type: BLOOD SPECIMEN Ordering Facility: [facility] Address: [address] [place] [address] Result Comment: CONA YANA sample requested from :[facility] 07/09/24 02:33 SE Performed By: #### 3 255-7, 38818-7, 40454-8 #### [facility] CLIA [id number] [address] [place] [address] OF [facility] BRIEF OP NOTon 07-09-2024 BRIEF OP NOT HNO ID: [id number] Author: ABDULAZIZ BANEGAS MD Service: Neurosurgery Author Type: Physician Type: Brief Op Note Filed: 07/09/2024 13:03 Note Text: BRIEF OPERATIVE / PROCEDURE NOTE LOG ID: [id number] SURGERY/PROCEDURE DATE: 07/09/2024 INCISION/PROCEDURE START TIME: 11:51 AM INCISION CLOSE/PROCEDURE END TIME: 1:01 PM SURGEON(S)/PROCEDURA LIST(S) AND ADMINISTRATIVE INTERN(S): Surgeons and Role: * Abdulaziz Banegas MD - Primary Pulp Grinder: Jese Maravilla SA SURGERY/PROCEDURE(S) : T1-5 laminectomy/evac of epidural hemtoma ANESTHESIA: General FINDINGS: Spinal cord compression ESTIMATED BLOOD LOSS:150 ml SPECIMENS: None COMPLICATIONS: None DRAINS: Modified CLOSURE TECHNIQUE: Primary PRE-OP/PRE-PROCEDURE DIAGNOSIS: C2-T6 epidural hematoma/parapresis POST-OP/POST-PROCEDU RE DIAGNOSIS: Same as Preop Patient was accompanied to the next level of care by a licensed practitioner from the surgical team pending completion of this brief op note (or operative note) SIGNATURE: Abdulaziz Banegas MD PATIENT NAME: Ruben Lobo DATE: July 09, 2024 TIME: 1:01 PM Normal [facility] CBC panel Auto (Bld)on 07-09 Erythrocyte distribution width (RBC) [Ratio] 15.0 % Normal 11.5-15.0 [facility] Comment on above: Order Comment: Speci men Type: BLOOD SPECIMEN Ordering Facility: [facility] Address: [address] [place] [address] Performed By: #### 3 255-7, 50764-5, 82907-2 #### [facility] CLIA [id number] [address] [place] [address] [place] Hematocrit (Bld) [Volume fraction] 40.5 % Normal 36.0-46.0 [facility] Comment on above: Order Comment: Speci men Type: BLOOD SPECIMEN Ordering Facility: [facility] Address: [address] [place] [address] Performed By: #### 3 255-7, 10560-4, 79439-8 #### [facility] CLIA [id number] [address] [place] [address] [place] Hemoglobin (Bld) [Mass/Vol] 12.9 g/dL Normal 11.5-15.5 [facility] Comment on above: Order Comment: Speci men Type: BLOOD SPECIMEN Ordering Facility: [facility] Address: [address] [place] [address] Performed By: #### 3 255-7, 59076-5, 32131-9 #### [facility] CLIA [id number] [address] [place] [address] [place] MCH (RBC) [Entitic mass] 28.4 pg Normal 26.0-34.0 [facility] Comment on above: Order Comment: Speci men Type: BLOOD SPECIMEN Ordering Facility: [facility] Address: [address] [place] [address] Performed By: #### 3 255-7, 35143-4, 58759-6 #### [facility] CLIA [id number] [address] [place], [place] [address] [place] MCHC (RBC) [Mass/Vol] 31.9 g/dL Normal 30.5-36.0 [facility] Comment on above: Order Comment: Speci men Type: BLOOD SPECIMEN Ordering Facility: [facility] Address: [address] [place] [address] Performed By: #### 3 255-7, 35861-2, 52794-2 #### [facility] CLIA [id number] [address] [place] [address] [place] MCV (RBC) [Entitic vol] 89.0 fL Normal 80.0-100.0 M [facility] Comment on above: Order Comment: Speci men Type: BLOOD SPECIMEN Ordering Facility: [facility] Address: [address] [place] [address] Performed By: #### 3 255-7, 23173-6, 84162-7 #### [facility] CLIA [id number] [address] [place] [address] [place] Nucleated RBC (Bld) [#/Vol] 10*3/uL Normal <0.01 [facility] Comment on above: Order Comment: Speci men Type: BLOOD SPECIMEN Ordering Facility: [facility] Address: [address] [place] [address] Performed By: #### 3 255-7, 14123-7, 94560-2 #### [facility] CLIA [id number] [address] [place], [place] [address] [place] Platelet mean volume (Bld) [Entitic vol] 11.9 fL Normal 9.0-12.7 [facility] Comment on above: Order Comment: Speci men Type: BLOOD SPECIMEN Ordering Facility: [facility] Address: [address] [place] [address] Performed By: #### 3 255-7, 69167-9, 75582-2 #### [facility] CLIA [id number] [address] [place], [place] [address] [place] Platelets (Bld) [#/Vol] 105 10*3/uL Low 150-400 [facility] Comment on above: Order Comment: Speci men Type: BLOOD SPECIMEN Ordering Facility: [facility] Address: [address] [place] [address] Result Comment: Resu lts checked and verified. No clot detected. Performed By: #### 3 255-7, 20253-0, 37684-7 #### [facility] CLIA [id number] [address] [place] [address] [place] RBC (Bld) [#/Vol] 4.55 10*6/uL Normal 3.90-5.20 [facility] Comment on above: Order Comment: Speci men Type: BLOOD SPECIMEN Ordering Facility: [facility] Address: [address] [place] [address] Performed By: #### 3 255-7, 36755-1, 13546-7 #### [facility] CLIA [id number] [address] [place] [address] [place] WBC (Bld) [#/Vol] 9.69 10*3/uL Normal 3.70-11.00 [facility] Comment on above: Order Comment: Speci men Type: BLOOD SPECIMEN Ordering Facility: [facility] Address: [address] [place] [address] Performed By: #### 3 255-7, 47654-1, 58067-5 #### [facility] CLIA [id number] [address] [place] [address] OF [place] CONFIRM BLOOD TYPEon 024 ABO O Normal [facility] Comment on above: Order Comment: Speci men Type: BLOOD SPECIMEN Ordering Facility: [facility] Address: [address] [place] [address] Performed By: #### 3 255-7, 87108-7, 61268-4 #### [facility] CLIA [id number] [address] [place] [address] [place] Rh Nom (Bld) Positive Normal [facility] Comment on above: Order Comment: Speci men Type: BLOOD SPECIMEN Ordering Facility: [facility] Address: [address] [place] [address] Performed By: #### 3 255-7, 18983-4, 63350-4 #### [facility] CLIA [id number] [address] [place] [address] [facility] CONSULTon 07-09-2024 CONSULT HNO ID: [id number] Author: ABDULAZIZ BANEGAS MD Service: Neurosurgery Author Type: Nurse Practitioner Type: Consults Filed: 07/10/2024 16:22 Note Text: Attestation signed by Abdulaziz Banegas MD at 07/10/2024 4:22 PM I reviewed and agree with Z SPino eval CONSULT: NEUROSURGERY PATIENT NAME: Ruben Lobo DATE of SERVICE: 07/09/2024 TIME of SERVICE: 8:00 AM REASON FOR CONSULT: Cervicothoracic epidural hematoma REQUESTING PHYSICIAN: Dylon Farley APRN.EMERGENCY PLANNING AND RESPONSE MANAGER PRIMARY CARE PHYSICIAN: Rip De La Garza MD HPI: Ms. Lboo is a 79 year old female who presents to [facility] ED as a transfer from [facility]. She received a cervical epidural steroid injection yesterday on 07/08. After the procedure she began to have difficulty walking, slurred speech, and progressive weakness. She is on Eliquis at home for a-fib and the medication was reportedly stopped 2 days before injection. An MRI was done at [facility] and showed extensive posterior epidural hematoma spanning cervicothoracic spine. Imaging reviewed by Dr. Banegas. We recommend emergent cervicothoracic laminectomy, evacuation of epidural hematoma. Risks and benefits of surgery were explained to the patient, significant other, and son at bedside including bleeding, infection, CSF leak, paralysis, nerve root injury, increased weakness, increased numbness, need for further surgeries, , stroke, myocardial infarction, DVT, PE. All of their questions were answered. They are willing to proceed with surgery. She is posted for emergent surgery. Patient seen and examined at bedside this AM. She is resting in bed complaining of cervical neck pain. She denies chest pain, shortness of breath, nausea, vomiting, diarrhea. She complains of progressive paraparesis since her injection yesterday. She denies any bowel or bladder symptoms. She is AANDOx3, follows commands, moves all extremities x4, 4-/5 strength in BUE/BLE. Vitals stable. ASSESSMENT AND PLAN: - 79 year old female who presents with epidural hematoma/progressive paraparesis - Imaging reviewed by Dr. Banegas - We recommend emergent cervicothoracic laminectomy, evacuation of epidural hematoma - Had a long discussion with patient, significant other, and son at bedside about treatment options including risks, benefits, and details of surgery - They are willing to proceed with surgery - She is posted for emergent surgery - Continue medical management per the primary ICU team - Please call with any questions - We will continue to follow - Case and plan of care discussed with Dr. 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 No date: Depression No date: Essential hypertension No date: GERD (gastroesophageal reflux disease) No date: H/O hiatal hernia 1964: Interatrial septal defect Comment: s/p Surgical correction No date: CLARISSE on CPAP No date: Pulmonary hypertension ([facility]) Comment: PASP-31 No date: Rheumatoid arthritis ([facility]) PAST SURGICAL HISTORY: PAST SURGICAL HISTORY 1963: APPENDECTOMY HX No date: ARTHROSCOPY KNEE DIAGNOSTIC W/WO SYNOVIAL BX SPX; Right 1964: ASD CLOSURE; N/A 12/2015: CARDIOVERSION ; N/A 2019: CHOLECYSTECTOMY HX No date: CYSTOSCOPY; N/A 2019: HERNIA REPAIR HX No date: HYSTERECTOMY HX Comment: Partial 11/2018: LAP, REVISION DIOGENES FUNDOPLASTY 1964: LHC ONLY (NO CORONARIES); N/A 1964: PAST SURGICAL HISTORY OF Comment: ASD repair of Left Interatrial Septum 05/13/2018: POST-CATARACT LASER SURGERY; Left Comment: Yag Capsulotomy No date: TOTAL KNEE REPLACEMENT; Right 2005: XCAPSL CTRC RMVL INSJ IO LENS PROSTH W/O ECP; Bilateral Comment: Cataract Extraction with PC IOL/ Restor lens FAMILY HISTORY: FAMILY HISTORY Problem Relation Age of Onset Hypertension Mother Heart Mother Cancer Sister Kidney No Ocular Disease No Family History Diabetes No Family History SOCIAL HISTORY: Social History Tobacco Use Smoking status: Never Smokeless tobacco: Never Substance Use Topics Alcohol use: No Drug use: No MEDICATIONS: Prior to Admission Medications: ascorbic acid, vitamin C, (VITAMIN C) 500 mg tablet, Take 500 mg by mouth once daily., Disp: , Rfl: , 07/08/[address] (PROTONIX) 40 mg tablet, Take 40 mg by mouth once daily., Disp: , Rfl: , 07/08/2024 denosumab (PROLIA) 60 mg/mL syrg, Inject 60 mg subcutaneously one time only. Twice daily, Disp: , Rfl: , 07/08/2024 diltiazem (CARDIZEM) 120 mg tablet, Take 120 mg by mouth four times daily., Disp: , Rfl: , 07/08/2024 apixaban (ELIQUIS ORAL), Take 5 mg by mouth once daily. , Disp: , Rfl: , Past Week amiodarone (more content not included)... Normal [facility] Comprehensive metabolic 2000 panelon 07-09-2024 Albumin [Mass/Vol] 3.8 g/dL Normal 3.2-5.0 [facility] Comment on above: Order Comment: Magalie lorenzo Type: BLOOD SPECIMEN Ordering Facility: [facility] Address: [address] [place] [address] Performed By: #### 2 4323-8, 2276-4, 58580-2, 2777-1, 79281-9, 56446-3 #### [facility] CLIA [id number] [address] [place], [place] [address] [place] ALP [Catalytic activity/Vol] 70 U/L Normal 45-117 [facility] Comment on above: Order Comment: Magalie lorenzo Type: BLOOD SPECIMEN Ordering Facility: [facility] Address: [address] [facility] [place] [address] Performed By: #### 2 4323-8, 6-4, 20351-0, 7-1, 49992-3, 80376-9 #### [facility] CLIA [id number] [address] [place], [place] [address] [place] ALT [Catalytic activity/Vol] 10 U/L Low 13-61 [facility] Comment on above: Order Comment: Speci men Type: BLOOD SPECIMEN Ordering Facility: [facility] Address: [address] [place] [address] Result Comment: Resu lts may be falsely depressed after the administration of Sulfasalazine and/or Sulfapyridine. Performed By: #### 2 4323-8, 6-4, 35553-2, 7-1, 26631-9, 94393-9 #### [facility] CLIA [id number] [address] [place], [place] [address] [place] Anion gap [Moles/Vol] 7 mmol/L Normal 5-16 [facility] Comment on above: Order Comment: Speci men Type: BLOOD SPECIMEN Ordering Facility: [facility] Address: [facility] [place] [address] Performed By: #### 2 4323-8, 6-4, 68577-5, 7-1, 82239-1, 23905-3 #### [facility] CLIA [id number] [address] [place], [place] [address] [place] AST [Catalytic activity/Vol] 24 U/L Normal 8-34 [facility] Comment on above: Order Comment: Speci men Type: BLOOD SPECIMEN Ordering Facility: [facility] Address: [address] [place] [address] Result Comment: Resu lts may be falsely depressed after the administration of Sulfasalazine and/or Sulfapyridine. Performed By: #### 2 4323-8, 6-4, 97804-2, 2777-1, 27353-8, 74216-2 #### [facility] CLIA [id number] [address] [place], [place] [address] [place] Bilirubin [Mass/Vol] 1.0 mg/dL Normal 0.2-1.0 [facility] Comment on above: Order Comment: Speci men Type: BLOOD SPECIMEN Ordering Facility: [facility] Address: [address] [place] [address] Performed By: #### 2 4323-8, 6-4, 83862-9, 2777-1, 63746-8, 95152-3 #### [facility] CLIA [id number] [address] [place] [address] [place] Calcium [Mass/Vol] 9.7 mg/dL Normal 8.5-10.5 [facility] Comment on above: Order Comment: Speci men Type: BLOOD SPECIMEN Ordering Facility: [facility] Address: [address] [place] [address] Performed By: #### 2 4323-8, 6-4, 99836-7, 2777-1, 15918-4, 18200-8 #### [facility] CLIA [id number] [address] [place], [place] [address] [place] Chloride [Moles/Vol] 104 mmol/L Normal 98-107 [facility] Comment on above: Order Comment: Speci men Type: BLOOD SPECIMEN Ordering Facility: [facility] Address: [address] [place] [address] Performed By: #### 2 4323-8, 6-4, 00155-9, 2777-1, 84267-9, 80008-8 #### [facility] CLIA [id number] [address] [place], [place] [address] [place] CO2 [Moles/Vol] 28 mmol/L Normal 21-32 [facility] Comment on above: Order Comment: Speci men Type: BLOOD SPECIMEN Ordering Facility: [facility] Address: [address] [place] [address] Performed By: #### 2 4323-8, 6-4, 09926-2, 2777-1, 48598-6, 16163-2 #### [facility] CLIA [id number] [address] [place] [address] [place] Creatinine [Mass/Vol] 0.58 mg/dL Normal 0.51-0.95 [facility] Comment on above: Order Comment: Magalie lorenzo Type: BLOOD SPECIMEN Ordering Facility: [facility] Address: [address] [place] [address] Result Comment: Huma ents receiving either N-Acetylcysteine (NAC) or Metamizole prior to venipuncture, may have falsely depressed results. Performed By: #### 2 4323-8, 6-4, 10203-0, 2777-1, 31432-8, 04863-9 #### [facility] CLIA [id number] [address] [place] [address] [place] Creatinine and Glomerular filtration rate.predicted panel (S/P/Bld) 92 mL/min/1.73m??? Normal >=60 [facility] Comment on above: Order Comment: Magalie lorenzo Type: BLOOD SPECIMEN Ordering Facility: [facility] Address: [address] [place] [address] Result Comment: Diana mated Glomerular Filtration Rate (eGFR) is calculated using the 2020 CKD-EPI creatinine equation. This equation utilizes serum creatinine, sex, and age as parameters. The creatinine assay has traceable calibration to isotope dilution-mass spectrometry. Refer to KDIGO guidelines for clinical interpretation. In patients with unstable renal function, e.g. those with acute kidney injury, the eGFR may not accurately reflect actual GFR. Performed By: #### 2 4323-8, 6-4, 76127-6, 2777-1, 60508-8, 06209-1 #### [facility] CLIA [id number] [address] [place] [address] [place] Glucose [Mass/Vol] 150 mg/dL High 70-100 [facility] Comment on above: Order Comment: Magalie lorenzo Type: BLOOD SPECIMEN Ordering Facility: [facility] Address: [address] [place] [address] Result Comment: The [place] Diabetes Association (ADA) provides guidance for cutoff values for fasting glucose and random glucose. The ADA defines fasting as no caloric intake for at least 8 hours. Fasting plasma glucose results between 100 to 125 mg/dL indicate increased risk for diabetes (prediabetes). Fasting plasma glucose results greater than or equal to 126 mg/dL meet the criteria for diagnosis of diabetes. In the absence of unequivocal hyperglycemia, results should be confirmed by repeat testing. In a patient with classic symptoms of hyperglycemia or hyperglycemic crisis, random plasma glucose results greater than or equal to 200 mg/dL meet the criteria for diagnosis of diabetes. Reference: Standards of Medical Care in Diabetes 2016, [place] Diabetes Association. Diabetes Care. 2016.39(Suppl 1). Results may be falsely elevated after the administration of Sulfapyridine. Results may be falsely depressed after the administration of Sulfasalazine. Performed By: #### 2 4323-8, 6-4, 81163-3, 7-1, 62039-1, 60714-0 #### [facility] CLIA [id number] [address] [place], [place] [address] [place] Potassium [Moles/Vol] 4.0 mmol/L Normal 3.5-5.1 [facility] Comment on above: Order Comment: Speci men Type: BLOOD SPECIMEN Ordering Facility: [facility] Address: [address] [place] [address] Performed By: #### 2 4323-8, 6-4, 55373-8, 2776-1, 27671-7, 01038-0 #### [facility] CLIA [id number] [address] [place], [place] [address] [place] Protein [Mass/Vol] 7.2 g/dL Normal 6.0-8.5 [facility] Comment on above: Order Comment: Speci men Type: BLOOD SPECIMEN Ordering Facility: [facility] Address: [address] [place] [address] Performed By: #### 2 4323-8, 6-4, 57360-4, 7-1, 73224-2, 22592-6 #### [facility] CLIA [id number] [address] [place], [place] [address] [place] Sodium [Moles/Vol] 139 mmol/L Normal 136-145 [facility] Comment on above: Order Comment: Speci men Type: BLOOD SPECIMEN Ordering Facility: [facility] Address: [address] [place] [address] Performed By: #### 2 4323-8, 2276-4, 81649-6, 2777-1, 73094-6, 43509-2 #### [facility] CLIA [id number] [address] [place] [address] [place] Urea nitrogen [Mass/Vol] 15 mg/dL Normal 7-26 [facility] Comment on above: Order Comment: Speci men Type: BLOOD SPECIMEN Ordering Facility: [facility] Address: [address] [place] [address] Performed By: #### 2 4323-8, 6-4, 32972-5, 2777-1, 67282-7, 53475-8 #### [facility] CLIA [id number] [address] [place] [address] [place] Ferritin SerPl-ncon 2023 Ferritin [Mass/Vol] 22.8 ng/mL Normal 8.0-307.0 [facility] Comment on above: Order Comment: Speci men Type: BLOOD SPECIMEN Ordering Facility: [facility] Address: [address] [place] [address] Performed By: #### 2 4323-8, 6-4, 87556-1, 2777-1, 26071-7, 34477-9 #### [facility] CLIA [id number] [address] [place], [place] [address] [place] Fibrinogen PPP-mCncon 2023 Fibrinogen Coag (PPP) [Mass/Vol] 278 mg/dL Normal 200-400 [facility] Comment on above: Order Comment: Speci men Type: BLOOD SPECIMEN Ordering Facility: [facility] Address: [address] [place] [address] Performed By: #### 3 255-7, 65445-6, 62132-8 #### [facility] CLIA [id number] [address] [place] [address] [place] [address] [place] HISTORY PHYSICALon HISTORY PHYSICAL HNO ID: [id number] Author: ABDULAZIZ BANEGAS MD Service: Neurosurgery Author Type: Physician Type: H&P Filed: 07/09/2024 10:42 Note Text: UPDATED HISTORY AND PHYSICAL EXAMINATION SERVICE DATE: 07/09/2024 SERVICE TIME: 10:42 AM PHYSICAL EXAM MUST BE COMPLETED ON ADMISSION The History and Physical (completed in the past 30 days) has been reviewed and the patient has been examined. The contents accurately reflect the patient's condition with the following additions or revisions since the HANDP was completed. Examination indicates no changes. This HANDP can be found in the attached. SIGNATURE: Abdulaziz Banegas MD PATIENT NAME: Ruben Lobo DATE: July 09, 2024 TIME: 10:42 AM Normal [facility] HISTORY PHYSICAL HNO ID: [id number] Author: HAILE GONZALEZ DO Service: Critical Care Author Type: Physician Type: H&P Filed: 07/09/2024 09:42 Note Text: [facility] PULMONARY [facility] CRITICAL CARE SERVICE DATE: July 09, 2024 SERVICE TIME: 0030 HPI: This is a 79 year old female with a past medical history of paroxysmal A-fib, anxiety, depression, congenital heart disease CLARISSE on CPAP, hyperlipidemia cervical spine pain. Patient is on Eliquis at home for A-fib. Patient held Eliquis at home for 2 days prior to planning steroid injection for cervical spine pain. Patient underwent procedure [facility] 07/08/2024. After the procedure the patient reports that she had difficulty walking, slurred speech, weakness. An MRI was completed and was significant for extensive posterior epidural fluid collection extending superiorly to the level of the posterior arch of C2 consistent with large epidural abscess versus hematoma. Hematoma wasnoted to extend the fourth send of the cervical spine and into the thoracic spine to approximately level of T8. No cord compression was noted. After the discovery of a hematoma, it was determined that the patient should be transferred to high-level care. Neurosurgery was notified at the request of the hospitalist physician for evaluation prior to acceptance and transfer. Dr. Banegas reviewed the case and MRI imaging and recommended ICU admission for frequent neuro assessments. Patient was accepted for admission to [facility] ICU. On arrival, patient is awake, alert and oriented x 3. No acute distress noted. Patient denies headache, vision changes, paresthesias, weakness, chest pain, shortness of breath, abdominal pain, N/V, urinary frequency or dysuria. Neurologic assessment is benign. No focal sensory/motor deficits. Laboratory diagnostics assessed on admission. CMP obtained and significant for glucose of 150, otherwise unremarkable. Iron studies are benign. CBC with no leukocytosis or anemia. Anemia noted with a platelet count of 105. PT/INR/PTT/fibrinoge n all within normal parameters. UA does not appear infectious. Type and screen collected. 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 No date: Rheumatoid arthritis ([facility]) PAST SURGICAL HISTORY 1964: APPENDECTOMY HX No date: ARTHROSCOPY KNEE DIAGNOSTIC W/WO SYNOVIAL BX SPX; Right 1964: ASD CLOSURE; N/A 12/2015: CARDIOVERSION ; N/A 2019: CHOLECYSTECTOMY HX No date: CYSTOSCOPY; N/A 2019: HERNIA REPAIR HX No date: HYSTERECTOMY HX Comment: Partial 11/2018: LAP, REVISION DIOGENES FUNDOPLASTY 1964: [facility] ONLY (NO CORONARIES); N/A 1964: PAST SURGICAL HISTORY OF Comment: ASD repair of Left Interatrial Septum 05/13/2018: POST-CATARACT LASER SURGERY; Left Comment: Yag Capsulotomy No date: TOTAL KNEE REPLACEMENT; Right 2004: XCAPSL CTRC RMVL INSJ IO LENS PROSTH W/O ECP; Bilateral Comment: Cataract Extraction with PC IOL/ Restor lens FAMILY HISTORY Problem Relation Age of Onset Hypertension Mother Heart Mother Cancer Sister Kidney No Ocular Disease No Family History Diabetes No Family History Social History Tobacco Use Smoking status: Never Smokeless tobacco: Never Substance Use Topics Alcohol use: No Drug use: No HOME MEDICATIONS: ascorbic acid, vitamin C, (VITAMIN C) 500 mg tabletTake 500 mg by mouth once daily.Disp: Rfl: pantoprazole DR (PROTONIX) 40 mg tabletTake 40 mg by mouth once daily.Disp: Rfl: denosumab (PROLIA) 60 mg/mL syrgInject 60 mg subcutaneously one time only. Twice dailyDisp: Rfl: diltiazem (CARDIZEM) 120 mg tabletTake 120 mg by mouth four times daily.Disp: Rfl: apixaban (ELIQUIS ORAL)Take 5 mg by mouth once daily. Disp: Rfl: amiodarone (PACERONE) 200 mg tabletTake by mouth once daily.Disp: Rfl: sertraline (ZOLOFT) 50 mg tabletTake 100 mg by mouth once daily. Disp: Rfl: INPATIENT MEDICATIONS: Current Facility-Administere d Medications Medication Dose Route Frequency potassium chloride ER 20-40 mEq tab(s) (KLOR-CON) 20-40 mEq ORAL/FEEDING TUBE PRN Or potassium chloride iv piggyback 20 mEq/100 mL 20 mEq INTRAVENOUS PRN phosphorus 500 mg tab(s) (K PHOS NEUTRAL) 500 mg ORAL/FEEDING TUBE PRN(NO DISPENSE) magnesium sulfate iv piggyback in sterile water 2 g 50 mL 2 g INTRAVENOUS PRN NaCl 0.9% iv flush bag 20 mL INTRAVENOUS PRN lactated ringers iv infusion 50 mL/hr INTRAVENOUS CONTINUOUS albuterol 2.5 mg /3 mL (0.083 %) 2.5 mg (PROVENTIL) 2.5 mg INHALATION q 4 H PRN famotidine 20 mg injec (more content not included)... Normal [facility] IMMATURE PLATELET FRACTIONon 07-09-2024 Platelets reticulated/100 platelets Auto (Bld) 5.9 % Normal 0.9-7.2 [facility] Comment on above: Order Comment: Magalie lorenzo Type: BLOOD SPECIMEN Ordering Facility: [facility] Address: [address] [place] [address] Performed By: #### 3 255-7, 77502-1, 38323-4 #### [facility] CLIA [id number] [address] [place], [place] [address] [place] Iron and Iron binding capaci ty panelon 07-09-2024 Iron [Mass/Vol] 71 ug/dL Normal 50-170 [facility] Comment on above: Order Comment: Magalie lorenzo Type: BLOOD SPECIMEN Ordering Facility: [facility] Address: [address] [place], [place] [address] Result Comment: Huma ents treated with metal-binding drugs (e.g.deferoxamine) may have depressed iron values, as chelated iron may not properly react in the Siemens iron assay. Performed By: #### 2 4323-8, 2276-4, 86461-2, 2777-1, 75489-5, 08920-7 #### [facility] CLIA [id number] [address] [place], [place] [address] [place] Iron binding capacity [Mass/Vol] 398 ug/dL Normal 221-481 [facility] Comment on above: Order Comment: Magalie lorenzo Type: BLOOD SPECIMEN Ordering Facility: [facility] Address: [address] [place] [address] Performed By: #### 2 4323-8, 6-4, 38765-5, 7-1, 35098-1, 09260-4 #### [facility] CLIA [id number] [address] [place], [place] [address] [place] Iron/TIBC [Molar ratio] 17.8 % Low 22.0-44.0 M [facility] Comment on above: Order Comment: Magalie lorenzo Type: BLOOD SPECIMEN Ordering Facility: [facility] Address: [address] [place] [address] Performed By: #### 2 4323-8, 2276-4, 99695-9, 2777-1, 57776-8, 44980-3 #### [facility] CLIA [id number] [address] [place], [place] [address] [place] LDH SerPl-cCncon 07-09-2024 LDH [Catalytic activity/Vol] 177 U/L Normal 84-246 [facility] Comment on above: Order Comment: Magalie lorenzo Type: BLOOD SPECIMEN Ordering Facility: [facility] Address: [address] [place] [address] Performed By: #### 2 532-0 #### [facility] CLIA [id number] [address] [place], [place] [address] [place] Lipid 1996 panelon 4 Cholesterol [Mass/Vol] 166 mg/dL Normal 0-199 [facility] Comment on above: Order Comment: Chandanjag lorenzo Type: BLOOD SPECIMEN Ordering Facility: [facility] Address: [address] [place] [address] Result Comment: <200 mg/dL, Desirable 200-239 mg/dL, Borderline high >239 mg/dL, High Performed By: #### 2 4323-8, 6-4, 13906-0, 7-1, 03203-3, 41091-3 #### [facility] CLIA [id number] [address] OF [place] Cholesterol in HDL [Mass/Vol] 49 mg/dL Normal >40 [facility] Comment on above: Order Comment: Magalie lorenzo Type: BLOOD SPECIMEN Ordering Facility: [facility] Address: [address] [place] [address] Result Comment: 40-5 9 mg/dL, Acceptable >59 mg/dL, High: Negative risk factor for coronary heart disease <40 mg/dL, Low: Positive risk factor for coronary heart disease Performed By: #### 2 4323-8, 6-4, 15899-5, 7-1, 67631-6, 30997-9 #### [facility] CLIA [id number] [facility] [employer] [address] OF [facility] Cholesterol in LDL [Mass/Vol] 108 mg/dL Normal 0-129 [facility] Comment on above: Order Comment: Chandanjag lorenzo Type: BLOOD SPECIMEN Ordering Facility: [facility] Address: [address] [place] [address] Result Comment: <100 mg/dL, Optimal 100-129 mg/dL, Near optimal/above optimal 130-159 mg/dL, Borderline high 160-189 mg/dL, High >189 mg/dL, Very high Secondary prevention optimal LDL Cholesterol levels are recommended to be < 70 mg/dL Performed By: #### 2 4323-8, 2276-4, 51053-8, 7-1, 55689-2, 36736-7 #### [facility] CLIA [id number] [address] [place], [place] [address] [facility] OF [place] Cholesterol in LDL/Cholesterol in HDL [Mass ratio] 2.20 {ratio} Normal <2.54 [facility] Comment on above: Order Comment: Magalie lorenzo Type: BLOOD SPECIMEN Ordering Facility: [facility] Address: [address] [place] [address] Result Comment: Refe romulo: 1. National Cholesterol Education Program ATP III Guideline At-A-Glance Quick Desk Reference: National Heart, Lung, and Blood [place]. National Institutes of Health. 2001: NIH Publication No. 01-3305. 2. An International Atherosclerosis Society position paper: global recommendations for the management of dyslipidemia: executive summary, Atherosclerosis. 2014: 232(2):410-413. Performed By: #### 2 4323-8, 6-4, 00491-0, 2777-1, 72441-8, 43346-2 #### [facility] CLIA [id number] [address] [place], [place] [address] [place] Cholesterol in VLDL [Mass/Vol] 9 mg/dL Normal <30 [facility] Comment on above: Order Comment: Magalie lorenzo Type: BLOOD SPECIMEN Ordering Facility: [facility] Address: [address] [place] [address] Performed By: #### 2 4323-8, 6-4, 47031-4, 2777-1, 78380-9, 45312-2 #### [facility] CLIA [id number] [address] [place], [place] [address] [place] Cholesterol non HDL [Mass/Vol] 117 mg/dL Normal <130 [facility] Comment on above: Order Comment: Magalie lorenzo Type: BLOOD SPECIMEN Ordering Facility: [facility] Address: [address] [place], [place] [address] Result Comment: <130 mg/dL, Optimal 130-159 mg/dL, Near optimal/above optimal 160-189 mg/dL, Borderline high 190-219 mg/dL, High >219 mg/dL, Very high Secondary prevention optimal non HDL Cholesterol levels are recommended to be <100 mg/dL Performed By: #### 2 4323-8, 6-4, 86417-2, 7-1, 30288-9, 31279-7 #### [facility] CLIA [id number] [address] [place], [place] [address] [place] Cholesterol.total/Choles terol in HDL [Mass ratio] 3.39 {ratio} Normal <5.10 [facility] Comment on above: Order Comment: Speci men Type: BLOOD SPECIMEN Ordering Facility: [facility] Address: [address] [place] [address] Performed By: #### 2 4323-8, 6-4, 26310-4, 7-1, 12613-1, 59380-5 #### [facility] CLIA [id number] [address] [place] [address] STATES [place] [facility] FASTING TIME Normal [facility] Comment on above: Order Comment: Speci men Type: BLOOD SPECIMEN Ordering Facility: [facility] Address: [address] [place] [address] Result Comment: Unkn own Performed By: #### 2 4323-8, 6-4, 30470-1, 7-1, 57956-2, 08775-7 #### [facility] CLIA [id number] [address] [place] [address] [place] Triglyceride [Mass/Vol] 47 mg/dL Normal 30-149 M [facility] Comment on above: Order Comment: Speci men Type: BLOOD SPECIMEN Ordering Facility: [facility] Address: [address] [place] [address] Result Comment: <150 mg/dL, Normal 150-199 mg/dL, Borderline high 200-499 mg/dL, High >499 mg/dL, Very high Patients receiving either N-Acetylcysteine (NAC) or Metamizole prior to venipuncture, may have falsely depressed results. Performed By: #### 2 4323-8, 6-4, 17941-9, 2777-1, 63464-5, 14042-5 #### [facility] CLIA [id number] [address] [place], [place] [address] [place] Magnesium SerPl-mCncon 07-09 Magnesium [Mass/Vol] 1.7 mg/dL Normal 1.6-2.6 [facility] Comment on above: Order Comment: Speci men Type: BLOOD SPECIMEN Ordering Facility: [facility] Address: [address] [place] [address] Performed By: #### 2 4323-8, 2276-4, 57756-4, 2777-1, 50569-7, 18638-9 #### [facility] CLIA [id number] [address] [place] [address] [facility] OF [place] NURSING PROGon 07-09-2024 NURSING PROG HNO ID: [id number] Author: KELLIE CHANG RN Service: Nursing Author Type: Registered Nurse Type: Nursing Progress Note Filed: 07/09/2024 14:24 Note Text: Spoke with patient's ICU nurse, Charline about medications on her pump set. Patient came to in house holding with LR and a mag bolus running, they were stopped during surgery. OK per Charline to restart both medications at same rate she arrived to in house holding Normal [facility] NUTRITIONon 07-09-2024 NUTRITION HNO ID: [id number] Author: AJ RUSSO RD Service: Nutrition Therapy Author Type: Registered Dietitian Type: Nutrition Filed: 07/09/2024 14:20 Note Text: NUTRITION THERAPY INITIAL ASSESSMENT SERVICE DATE: 07/09/2024 SERVICE TIME: 1330 REASON FOR VISIT: MST 2 Nutrition Assessment: Recommended Malnutrition Diagnosis: Unable to Identify Malnutrition at this time Nutrition Diagnosis: PES Statement: No diagnosis at this time Care Plan: Follow for diet advancement to goal Monitor and Evaluation: Meet greater than 75% of estimated needs, Monitor bowel function, Monitor labs, I/Os, vital signs, weight, Monitor fluid/electrolyte balance HPI: Pt admitted for epidural hematoma and pain of cervical spine. Neurosurgery consulted. OR today for cervicothoracic laminectomy for evacuation of epidural collection. 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 No date: Rheumatoid arthritis ([facility]) Intake History: Nutrition Intake Prior to Admission: Unable to determine (Pt off the floor in OR) Current Nutrition Intake: NPO Current Intake Over time: (1 day LOS) Dosing Weight: 51.3 kg (113 lb) Dosing Weight Type: Current weight Estimated kilocalorie needs: 3820-8146 Calorie Calculation Method: 25-30 kcals/kg Estimated protein needs (grams): 61-77 Grams protein determined by: 1.2 - 1.5 g/kg Diet Orders (From admission, onward) Start Ordered 07/09/2445 DIET NPO START NOW 07/09/24 0944 Anthropometrics: Height: 154.9 cm (5' 1) Weight: 51.3 kg (113 lb 1.5 oz) Usual Weight: 51.3 kg (113 lb) 04/2022 Usual Weight Obtained From: Chart Review Body mass index is 21.37 kg/m?. Weight change percentage over time: No recent wt hx available per EMR but appears stable since 2021 Weight Change: Stable weight(s) Last Wt 07/09/24 : 51.3 kg (113 lb 1.5 oz) 05/02/22 : 51.5 kg (113 lb 9.6 oz) Physical Exam: Reason NFPE not performed: Unable to participate (Pt off the floor in OR) Potential micronutrient deficiency: Unable to determine at this time Edema/Ascites: No edema GI Symptoms: None Functional Status: Unable to assess Potential Signs of Inflammation: Chronic condition, Hyperglycemia, Imaging studies MNT Billing: $ Routine Care : 1-15 minutes SIGNATURE: Aj Russo RD PATIENT NAME: Ruben Lobo DATE: July 09, 2024 TIME: 2:17 PM [facility] OPERATIVE NOon 07-09-2024 OPERATIVE NO HNO ID: [id number] Author: ABDULAZIZ BANEGAS MD Service: Neurosurgery Author Type: Physician Type: Operative Report Filed: 07/10/2024 16:23 Note Text: [facility] - OPERATIVE REPORT RUBEN LOBO : 1945 AGE: 79. SEX: F PATIENT TYPE: I HOSP [facility] LOCATION: [place] [address] ATTENDING PHYSICIAN: HAILE GONZALEZ CSN NUMBER: [id number] DATE OF SURGERY/PROCEDURE: 07/09/2024 INCISION/PROCEDURE START TIME: 11:51 AM INCISION CLOSE/PROCEDURE END TIME: 1:24 PM PREOPERATIVE DIAGNOSIS: POSTOPERATIVE DIAGNOSIS: SURGEON: Abdulaziz Banegas MD ADMINISTRATIVE INTERN: assistant county attorney, Justino Palmer CNP SURGERY/PROCEDURE: 1. T1-T5 laminectomy. 2. Evacuation of epidural hematoma. 3. Insertion of subfascial drain. ANESTHESIA: General This is an emergency procedure. PREOPERATIVE DIAGNOSES: 1. Status post epidural steroid injection, C2-T6. 2. Epidural hematoma. 3. Paraparesis. 4. Failure of conservative therapy. POSTOPERATIVE DIAGNOSES: 1. Status post epidural steroid injection, C2-T6. 2. Epidural hematoma. 3. Paraparesis. 4. Failure of conservative therapy. ESTIMATED BLOOD LOSS: 150 mL. Patient received 2 liters of crystalloid. Urine output was 100 mL. COMPLICATIONS: There were no intraoperative complications. INDICATIONS FOR SURGERY: The patient is a 79-year-old female who received upper thoracic epidural steroid injection yesterday. Right after procedure, she noted that she is unable to turn her head, ambulate. The patient was sent over to emergency room where extensive epidural hematoma was discovered with its apex at T2- T3 level. The patient was transferred from outside facility to the Intensive Care Unit. She failed to improve conservatively and she was scheduled for a surgical decompression. Surgical benefits and risks were discussed in detail, including bleeding, infection, CSF leak, nerve root injury, failure to improve, need for further surgeries, paralysis, increased weakness, , stroke, myocardial infarction, DVT, PE. The patient was willing to proceed. DESCRIPTION OF PROCEDURE: After the patient was identified in preoperative area, she was brought to the operating room where she was intubated. Perioperative antibiotics were administered. The patient's head was placed in Loza headholder, and she was placed on Hamilton table prone, and the pressure points were double padded, patient's head was secured in Loza headholder to a Hamilton table. Intraoperative C-arm was used to identify operative levels and patient's posterior cervicothoracic spine was prepped and draped in sterile fashion. Midline linear incision was made with a #10 scalpel. Dissection was carried down through subcutaneous tissue to the cervicothoracic fascia. Small soft tissue hematoma at the T2-T3 level was noted from epidural steroid injection. Cervicothoracic fascia was opened bilaterally, subperiosteal dissection plane over the spinous process and lamina was developed. Self-retaining retractors were applied. A marking clamp was placed at C7 and level was confirmed according to [facility] Spine localization protocol. Copious irrigation was used. At that point, we proceeded with laminectomy T1-T5, spinous process of T1-T5 were removed with Leksell rongeurs, utilizing high-speed Midas Jonel drill, 2 and 3 mm Kerrison rongeurs. Laminectomy was performed. Spinal cord was decompressed. A large amount of blood was removed. Utilizing gentle irrigation and [place] elevator, the rest of the tissues were decompressed. Hemostasis was obtained with bone wax, Surgicel, Gelfoam, thrombin. Subfascial drain was exited through a separate stab wound. The wound was closed in sterile fashion using 0 Vicryl, 2-0 Vicryl and skin aylin. Sterile dressing was applied. Patient was placed supine. She was extubated. The patient was taken over to the Intensive Care Unit to stable vital signs. At the end of the procedure, needle and sponge count was correct. There were no intraoperative complications. Abdulaziz Banegas MD TA:[id number] /[id number] Normal [facility] PT panel Coag (PPP)on 2023 INR Coag (PPP) [Relative time] 1.0 {INR} Normal 0.9-1.3 [facility] Comment on above: Order Comment: Speci men Type: BLOOD SPECIMEN Ordering Facility: [facility] Address: [address] [place] [address] Result Comment: Komal min K Antagonist (VKA) Therapeutic Range: INR 2 to 3 (Target INR of 2.5) Note: For patients treated with VKA drugs, such as warfarin, the [place] [employer] 2012 Guideline recommends a therapeutic INR range of 2 to 3 (target INR of 2.5). This recommendation includes high-risk patients with antiphospholipid syndrome with previous arterial or venous thromboembolism, current-generation mechanical or bioprosthetic aortic heart valve replacement. Note: Patients with mechanical aortic valve replacement and additional risk factors for thromboembolic events (atrial fibrillation, previous thromboembolism, LV dysfunction, hypercoagulable conditions) or an older generation mechanical AVR (i.e., ball in-Cage) or any mechanical MVR should have a INR therapeutic range of 2.5 to 3.5 (target INR of 3). Jessica GH, et al. Chest 2012, 141:7S-47S Kari RA, et al. [facility] 2017, 70: 252-289 Performed By: #### 3 255-7, 32548-8, 25542-5 #### [facility] CLIA [id number] [address] [place] [address] [place] PT Coag (PPP) [Time] 10.9 s Normal 9.7-13.0 [facility] Comment on above: Order Comment: Magalie lorenzo Type: BLOOD SPECIMEN Ordering Facility: [facility] Address: [address] [place] [address] Performed By: #### 3 255-7, 70763-2, 36012-4 #### [facility] CLIA [id number] [address] [place], [place] [address] [place] Phosphate [facility] 07-09 Phosphate [Mass/Vol] 4.2 mg/dL Normal 2.5-4.9 [facility] Comment on above: Order Comment: Magalie lorenzo Type: BLOOD SPECIMEN Ordering Facility: [facility] Address: [address] [place] [address] Result Comment: Elev ated m-protein (paraprotein) levels in the serum may be exhibited in patients with monoclonal gammopathies, causing falsely elevated inorganic phosphorus results. Performed By: #### 2 4323-8, 2276-4, 79178-7, 2777-1, 28343-8, 10761-1 #### [facility] CLIA [id number] [address] [place], [place] [address] [place] STAPHYLOCOCCUS AUREUS AND MR SA SCREEN, PCR, NASALon 07-09-2024 S. aureus and MRSA panel JOANN+probe (Nose) Not detected Normal Not Detected [facility] Comment on above: Order Comment: Speci men Type: BLOOD SPECIMEN Ordering Facility: [facility] Address: [facility] [place] [address] Performed By: #### 3 255-7, 29818-3, 41469-4 #### [facility] CLIA [id number] [address] THERAPY NTon 07-09-2024 THERAPY NT HNO ID: [id number] Author: TODD COLON OTR/Xochitl Service: ? Author Type: Occupational Therapist Type: Therapy (PT/OT/Speech/Resp) Filed: 07/09/2024 12:47 Note Text: OCCUPATIONAL THERAPY MISSED VISIT SERVICE DATE: 07/09/2024 SERVICE TIME: 1247 ROOM: SURGERY POOL (MR SURGERY) Patient not seen due to Test / Procedure. SIGNATURE: CHETAN Kamara/Xochitl PATIENT NAME: Ruben Lobo DATE: July 09, 2024 TIME: 12:47 PM Normal [facility] THERAPY NT HNO ID: [id number] Author: FLAVIA BAUMAN PT, DPT Service: Physical Therapy Author Type: Physical Therapist Type: Therapy (PT/OT/Speech/Resp) Filed: 07/09/2024 11:07 Note Text: PHYSICAL THERAPY MISSED VISIT SERVICE DATE: 07/09/2024 SERVICE TIME: ROOM: MR SURGERY POOL (MR SURGERY) Patient not seen due to Clinical Appropriateness (Pt is in surgery this ). SIGNATURE: Flavia Bauman PT, DPT PATIENT NAME: Ruben Lobo DATE: July 09, 2024 TIME: 11:07 AM Normal [facility] THERAPY NT HNO ID: [id number] Author: ALVAREZ VALDERRAMA RRT Service: Respiratory Therapy Author Type: Registered Resp Therapist Type: Therapy (PT/OT/Speech/Resp) Filed: 07/09/2024 08:44 Note Text: 07/09/24 0826 Resp Assessment: Within Normal Limits (WNL): Rhythm Regular and Unlabored; No Cough or Sputum; Breath Sounds Clear All Lobes Forced Vital Capacity (FVC) (L) 1.1 Bedside Spirometry/Neuromusc ular Assessment $Bedside Spirometry/Neuromusc ular Assessment $Performed - Neuromuscular Assessment (FVC and NIF) NIF (cm H2O) (Non-Intubated) -36 [facility] TYPE + SCREENon 07-09-2024 ABO O [facility] Comment on above: Order Comment: Speci men Type: BLOOD SPECIMEN Ordering Facility: [facility] Address: [address] [place] [address] Performed By: #### 3 255-7, 54373-0, 79748-0 #### [facility] CLIA [id number] [address] [place] [address] [place] HISTORICAL AB SCR STATUS Negative [facility] Comment on above: Order Comment: Speci men Type: BLOOD SPECIMEN Ordering Facility: [facility] Address: [address] [place] [address] Performed By: #### 3 255-7, 03805-9, 07710-7 #### [facility] CLIA [id number] [address] [place] [address] [place] Rh Nom (Bld) Positive [facility] Comment on above: Order Comment: Speci men Type: BLOOD SPECIMEN Ordering Facility: [facility] Address: [address] [place] [address] Performed By: #### 3 255-7, 57800-6, 57065-7 #### [facility] CLIA [id number] [address] [place] [address] [place] TYPE AND SCREEN EXPIRATION 07/12/2024 23:59 [facility] Comment on above: Order Comment: Speci men Type: BLOOD SPECIMEN Ordering Facility: [facility] Address: [address] [place] [address] Performed By: #### 3 255-7, 09143-7, 51957-7 #### [facility] CLIA [id number] [address] [place] [address] [place] Urinalysis complete panel (U )on 07-09-2024 Bacteria LM.HPF (Urine sed) [#/Area] None Seen Normal None Seen [facility] Comment on above: Order Comment: Speci men Type: BLOOD SPECIMEN Ordering Facility: [facility] Address: [address] [place] [address] Performed By: #### 3 255-7, 31398-0, 49250-3 #### [facility] CLIA [id number] [address] [place], [place] [address] [place] Bilirubin Ql (U) Negative Normal Negative [facility] Comment on above: Order Comment: Speci men Type: BLOOD SPECIMEN Ordering Facility: [facility] Address: [address] [place] [address] Performed By: #### 3 255-7, 45447-8, 58267-3 #### [facility] CLIA [id number] [address] [place], [place] [address] [place] Clarity (Unsp spec) Cloudy Abnormal Clear [facility] Comment on above: Order Comment: Speci men Type: BLOOD SPECIMEN Ordering Facility: [facility] Address: [address] [place] [address] Performed By: #### 3 255-7, 21136-2, 76000-7 #### [facility] CLIA [id number] [address] [place] [address] [place] Color (U) Yellow Normal Yellow [facility] Comment on above: Order Comment: Speci men Type: BLOOD SPECIMEN Ordering Facility: [facility] Address: [address] [place] [address] Performed By: #### 3 255-7, 22259-7, 37474-4 #### [facility] CLIA [id number] [address] [place], [place] [address] [place] Epithelial cells LM.HPF (Urine sed) [#/Area] Few Normal [facility] Comment on above: Order Comment: Speci men Type: BLOOD SPECIMEN Ordering Facility: [facility] Address: [address] [place] [address] Performed By: #### 3 255-7, 11356-0, 39614-9 #### [facility] CLIA [id number] [address] [place] [address] [place] Glucose Test strip (U) [Mass/Vol] Negative Normal Negative [facility] Comment on above: Order Comment: Speci men Type: BLOOD SPECIMEN Ordering Facility: [facility] Address: [address] [place] [address] Performed By: #### 3 255-7, 11231-8, 23031-9 #### [facility] CLIA [id number] [address] [place] [address] [place] Hemoglobin Ql (U) Negative Normal Negative [facility] Comment on above: Order Comment: Speci men Type: BLOOD SPECIMEN Ordering Facility: [facility] Address: [address] [place] [address] Performed By: #### 3 255-7, 58648-7, 48162-9 #### [facility] CLIA [id number] [address] [place] [address] Ketones Ql (U) Trace Abnormal Negative [facility] Comment on above: Order Comment: Speci men Type: BLOOD SPECIMEN Ordering Facility: [facility] Address: [address] [place] [address] Performed By: #### 3 255-7, 65452-0, 11086-0 #### [facility] CLIA [id number] [address] [place] [address] Leukocyte esterase Test strip Ql (U) Negative Normal Negative [facility] Comment on above: Order Comment: Speci men Type: BLOOD SPECIMEN Ordering Facility: [facility] Address: [address] [place] [address] Performed By: #### 3 255-7, 24823-3, 65524-3 #### [facility] CLIA [id number] [address] [place] [address] [place] Nitrite Ql (U) Negative Normal Negative [facility] Comment on above: Order Comment: Speci men Type: BLOOD SPECIMEN Ordering Facility: [facility] Address: [address] [place] [address] Performed By: #### 3 255-7, 15405-6, 89791-2 #### [facility] CLIA [id number] [address] [place], [place] [address] [place] pH (U) 7.0 [pH] Normal 5.0-8.0 [facility] Comment on above: Order Comment: Speci men Type: BLOOD SPECIMEN Ordering Facility: [facility] Address: [address] [place] [address] Performed By: #### 3 255-7, 72308-8, 98790-9 #### [facility] CLIA [id number] [address] [place], [place] [address] [place] Protein (U) [Mass/Vol] Negative Normal Negative [facility] Comment on above: Order Comment: Speci men Type: BLOOD SPECIMEN Ordering Facility: [facility] Address: [address] [place] [address] Performed By: #### 3 255-7, 10268-7, 97103-0 #### [facility] CLIA [id number] [address] [place] [address] [place] RBC LM.HPF (Urine sed) [#/Area] 0-3 /HPF Normal 0-3 /HPF [facility] Comment on above: Order Comment: Speci men Type: BLOOD SPECIMEN Ordering Facility: [facility] Address: [address] [place] [address] Performed By: #### 3 255-7, 04545-4, 52516-4 #### [facility] CLIA [id number] [address] [place], [place] [address] [place] Specific gravity (U) [Rel density] 1.014 Normal 1.005-1.030 [facility] Comment on above: Order Comment: Speci men Type: BLOOD SPECIMEN Ordering Facility: [facility] Address: [address] [place] [address] Performed By: #### 3 255-7, 01732-3, 22068-7 #### [facility] CLIA [id number] [address] [place], [place] [address] [place] Urobilinogen Ql (U) Negative Normal Negative [facility] Comment on above: Order Comment: Speci men Type: BLOOD SPECIMEN Ordering Facility: [facility] Address: [address] [place] [address] [place] [id number] Performed By: #### 3 255-7, 80241-9, 14350-4 #### [facility] CLIA [id number] [address] [place], [place] [address] [facility] OF JOHN WBC LM.HPF (Urine sed) [#/Area] 0-5 /HPF Normal 0-5 /HPF [facility] Comment on above: Order Comment: Speci men Type: BLOOD SPECIMEN Ordering Facility: [facility] Address: [address] [place] [address] [place] [id number] Performed By: #### 3 255-7, 06189-5, 56516-1 #### [facility] CLIA [id number] [address] [place], [place] [address] [facility] OF JOHN XR VERIFY LEVEL [id number] 07-09-2024 XR VERIFY LEVEL C-SPINE-NB * * *Final Report* * * DATE OF EXAM: Jul 09 2024 12:16PM RHX [id number] - XR VERIFY LEVEL C-SPINE-NB / PROCEDURE REASON: Other * * * * Physician Interpretation * * * * XR VERIFY LEVEL C-SPINE-NB Ordering Physician: ABDULAZIZ BANEGAS Clinical Statement: Spinal localization FINDINGS: The tip of the surgical instrument is at the level of the spinous process of C7. IMPRESSION: Surgical instrument tip is at the spinous process of C7. Findings were confirmed with a spine surgeon at the time of the examination. [employer] Supervisor: PSCB Transcribe Date/Time: Jul 09 2024 12:22P Dictated by : GINGER BLAS MD This examination was interpreted and the report reviewed and electronically signed by: GINGER BLAS MD on Jul 09 2024 12:29PM EST [id number] Normal [facility] aPTT PPPon 07-09-2024 aPTT Coag (PPP) [Time] 25.4 s Normal 23.0-32.4 [facility] Comment on above: Order Comment: Speci men Type: BLOOD SPECIMEN Ordering Facility: [facility] Address: [address], [place] [address] Performed By: #### 3 255-7, 16281-6, 35031-3 #### [facility] CLIA [id number] [address] [place] [address] [place] Basic Metabolic Profile (BMP )on 07-08-2024 BUN/CRE 28.6 RATIO High 10-20 [facility] Comment on above: Performed By: #### L 500.2500, L100.0100, L501.4020 #### [facility] [address] [place], [address] CA,Total 9.5 mg/dL Normal 8.5-10.1 [facility] Comment on above: Performed By: #### L 500.2500, L100.0100, L501.4020 #### [facility] [address] [place], [address] Chloride [Moles/Vol] 107 mmol/L Normal 98-107 [facility] Comment on above: Performed By: #### L 500.2500, L100.0100, L501.4020 #### [facility] [address] [place], [address] CO2 [Moles/Vol] 29.0 mmol/L Normal 21.0-32.0 [facility] Comment on above: Performed By: #### L 500.2500, L100.0100, L501.4020 #### [facility] [address] [place], [address] Creatinine [Mass/Vol] 0.63 mg/dL Normal 0.55-1.02 [facility] Comment on above: Result Comment: The validity of the calculated GFR GFRAA in patients over 70 years has not been determined. Clinical correlation is essential. Performed By: #### L 500.2500, L100.0100, L501.4020 #### [facility] [address] [place], [address] ECRCL 46.67 ml/min Normal [facility] Comment on above: Performed By: #### L 500.2500, L100.0100, L501.4020 #### [facility] [address] [place], [address] EST GFR - AA 117 mL/min Normal >60 [facility] Comment on above: Result Comment: Afri can Turkish GFR Calc Performed By: #### L 500.2500, L100.0100, L501.4020 #### [facility] [address] [place], [address] GAP 5 Normal 5-15 [facility] Comment on above: Performed By: #### L 500.2500, L100.0100, L501.4020 #### [facility] [address] [place], [address] GFR/1.73 sq M.predicted among non-blacks MDRD (S/P/Bld) [Vol rate/Area] 97 mL/min/{1.73_m2} Normal >60 [facility] Comment on above: Result Comment: Non- GFR Calc Performed By: #### L 500.2500, L100.0100, L501.4020 #### [facility] [address] [place], [address] Glucose [Mass/Vol] 127 mg/dL High 74-106 [facility] Comment on above: Result Comment: Fast ing Glucose result greater than or equal to 126 mg/dL suggests DIABETES MELLITUS per A.D.A. criteria. Performed By: #### L 500.2500, L100.0100, L501.4020 #### [facility] [address] [place], [address] Potassium [Moles/Vol] 3.9 mmol/L Normal 3.5-5.1 [facility] Comment on above: Performed By: #### L 500.2500, L100.0100, L501.4020 #### [facility] [address] [place] [place], [address] Sodium [Moles/Vol] 141 mmol/L Normal 136-145 [facility] Comment on above: Performed By: #### L 500.2500, L100.0100, L501.4020 #### [facility] [address] [place], [address] Urea nitrogen [Mass/Vol] 18 mg/dL Normal 7-18 [facility] Comment on above: Performed By: #### L 500.2500, L100.0100, L501.4020 #### [facility] [address] [place], [address] CBC W/Diff, Automatedon 06-12 Absolute Lymph 0.61 X10 3/uL Low 0.83-4.51 [facility] Comment on above: Performed By: #### L 500.2500, L100.0100, L501.4020 #### [facility] [address] [place], [address] Absolute Neut 6.0 X10 3/uL Normal 2.0-7.7 [facility] Comment on above: Performed By: #### L 500.2500, L100.0100, L501.4020 #### [facility] [address] [place], [address] Basophils/100 WBC (Bld) 0.6 % Normal 0-1 [facility] Comment on above: Performed By: #### L 500.2500, L100.0100, L501.4020 #### [facility] [address] [place], [address] Eosinophils/100 WBC (Bld) 0.3 % Normal 0-5 [facility] Comment on above: Performed By: #### L 500.2500, L100.0100, L501.4020 #### [facility] [address] [place], [address] Erythrocyte distribution width (RBC) [Ratio] 15.0 % High 11.6-14.6 [facility] Comment on above: Performed By: #### L 500.2500, L100.0100, L501.4020 #### [facility] [address] [place], [address] Hematocrit (Bld) [Volume fraction] 41.0 % Normal 37-47 [facility] Comment on above: Performed By: #### L 500.2500, L100.0100, L501.4020 #### [facility] [address] [place], [address] Hemoglobin (Bld) [Mass/Vol] 12.9 g/dL Normal 12.0-15.0 [facility] Comment on above: Performed By: #### L 500.2500, L100.0100, L501.4020 #### [facility] [address] [place], [address] IG% 0.700 Normal 0.0-0.9 [facility] Comment on above: Result Comment: IG% - Immature Granulocytes (promyelocytes, myelocytes and metamyelocytes) > 1% indicates that a LEFT SHIFT is Present. Performed By: #### L 500.2500, L100.0100, L501.4020 #### [facility] [address] [place], [address] Lymphocytes/100 WBC (Bld) 8.9 % Low 19-41 [facility] Comment on above: Performed By: #### L 500.2500, L100.0100, L501.4020 #### [facility] [address] [place], [address] MCH (RBC) [Entitic mass] 28.2 pg Normal 27.0-32.0 [facility] Comment on above: Performed By: #### L 500.2500, L100.0100, L501.4020 #### [facility] [address] [place], [address] MCHC (RBC) [Mass/Vol] 31.5 g/dL Low 32-36 [facility] Comment on above: Performed By: #### L 500.2500, L100.0100, L501.4020 #### [facility] [address] [place], [address] MCV (RBC) [Entitic vol] 89.7 fL Normal 81-99 [facility] Comment on above: Performed By: #### L 500.2500, L100.0100, L501.4020 #### [facility] [address] [place], [address] Monocytes/100 WBC (Bld) 1.3 % Normal 0-10 [facility] Comment on above: Performed By: #### L 500.2500, L100.0100, L501.4020 #### [facility] [address] [place], [address] Neutrophils/100 WBC (Bld) 88.2 % High 47-70 [facility] Comment on above: Performed By: #### L 500.2500, L100.0100, L501.4020 #### [facility] [address] [place], [address] Nucleated RBC (Bld) [#/Vol] 0 10*3/uL Normal 0-5 [facility] Comment on above: Performed By: #### L 500.2500, L100.0100, L501.4020 #### [facility] [address] [place], [address] Platelet mean volume (Bld) [Entitic vol] 11.0 fL Normal 6.2-12.0 [facility] Comment on above: Performed By: #### L 500.2500, L100.0100, L501.4020 #### [facility] [address] [place], [address] Platelets (Bld) [#/Vol] 90 10*3/uL Low 150-450 [facility] Comment on above: Performed By: #### L 500.2500, L100.0100, L501.4020 #### [facility] [address] [place], [address] RBC (Bld) [#/Vol] 4.57 10*6/uL Normal 4.2-5.4 [facility] Comment on above: Performed By: #### L 500.2500, L100.0100, L501.4020 #### [facility] [address] [place], [address] RDW SD 49.8 fl High 35.1-43.9 [facility] Comment on above: Performed By: #### L 500.2500, L100.0100, L501.4020 #### [facility] [address] [place], [address] WBC (Bld) [#/Vol] 6.9 10*3/uL Normal 4.4-11.0 [facility] Comment on above: Performed By: #### L 500.2500, L100.0100, L501.4020 #### [facility] [address] [place], [address] Emergency Department Summary on 07-08-2024 Emergency Department Summary [facility] Medical Records Department [address] [place] [address] Emergency Department Summary 07/08/24 MR#: [id number] Acct: [id number] Name: RUBEN LOBO Rep #: [id number] : 1945 79 From: Rip Buenrostro DO PCP: Dr. Rip De La Garza MD Status:DEP ER Location: ED HPI History of Present Illness Chief Complaint: Back Informant: patient Onset/Context/Timing Onset: Today Context: Sudden Onset Chronic pain exacerbated by: Epidural injection Timing: Continuous Quality: - (Stabbing) Location: Thoracic (Upper thoracic, lower cervical) Current Severity: Severe Maximum Severity: Severe Worsened by: improves with Movement Relieved by: Remaining Still Associated Symptoms Associated Symptoms: Negative for Numbness or Tingling Narrative Narrative: Patient presents with upper back pain that began today. Patient states she had an epidural injection in her upper back. Patient states that after that her pain became worse. Patient describes the pain as stabbing. Patient states it is worse with any movement. Patient states it is better with rest. Patient denies any radiation of the pain. Patient denies any paresthesias or weakness. Patient denies any bowel or bladder changes. Patient denies any difficulty breathing or difficulty swallowing. Patient is on Eliquis for atrial fibrillation. [facility] Medical History Wears hearing aid Arthritis Restless legs Shortness of breath on exertion On amiodarone therapy Wears dentures Post-menopausal Depression Anxiety Rheumatoid arthritis History of hiatal hernia Gastric reflux Non-smoker CPAP (continuous positive airway pressure) dependence Sleep apnea History of pain when walking History of echocardiogram History of stress test Hypertension Cardiology follow-up encounter History of atrial fibrillation History of cardioversion CLARISSE (obstructive sleep apnea) Mixed 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 Pulmonary hypertension Chronic cholecystitis with calculus Paroxysmal atrial fibrillation Essential (primary) hypertension Esophageal hiatal hernia 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, left [employer] current use of anticoagulant Atrial flutter GERD (gastroesophageal reflux disease) Home Medications ???Medication ???Instructions ???Recorded ???Last Taken ???Type denosumab 60 mg/mL subcutaneous 60 mg subcut [id number] 12/14/20 04/25/22 History syringe (Prolia) pantoprazole 40 mg tablet,delayed 40 mg PO DAILY 12/14/20 09/26/22 History release sertraline 100 mg tablet 100 mg PO QHS 12/14/20 09/30/22 History calcium carbonate-vitamin D3 600 1 tab PO DAILY 09/17/22 09/26/22 History mg-125 unit tablet diltiazem HCl 120 mg See Rx Instructions .Route 12/18/23 Unknown Rx capsule,extended release 24 hr .COMPLEX #90 CAPSULES magnesium 200 mg tablet 400 mg PO BID 12/18/23 Unknown History acetaminophen 500 mg tablet 1,000 mg PO Q8 PRN Pain 12/20/23 Unknown History ascorbic acid (vitamin C) 500 mg 500 mg PO DAILY 12/20/23 Unknown History tablet (Vitamin C) metoprolol tartrate 50 mg tablet 50 mg PO BID This is a dose 03/02/24 Unknown Rx increase #180 tabs apixaban 5 mg tablet (Eliquis) 5 mg PO BID #180 tabs 04/07/24 Unknown Rx Allergy/AdvReac Type Severity Reaction Status Date / Time No Known Allergies Allergy Verified 07/08/24 16:08 Family History Mother Hypertension Arthritis Heart disease Father Cancer Brother Cancer Son CVA (cerebral vascular accident) Diabetes Brother TIA (transient ischemic attack) Sister Cancer kidney cancer Thyroid disorder Surgical History Status post right knee replacement Hx of cystoscopy History of arthroscopy of right knee History of cardiac catheterization History of open heart surgery History of cholecystectomy History of atrial septal defect repair History of appendectomy Status post laparoscopic Diogenes fundoplication ( 11/2018) History of hysterectomy Social History Smoking Status: Never smoker alcohol intake: never substance use type: does not use caffeine: Yes Type: coffee Number of servings: 1 what type of physical activity do you participate in: walking frequency: daily duration: 30-45 minutes/day seatbelt use: always do you feel safe at home: Yes ROS ROS ED Constitutional Constitutional ED: Denies chills or fever(s) Eyes Eyes: Denies blurry vision or change in vision ENT ENT ED: Denies rhinorrhea or sore throat Cardiovascular Cardiovascular: Denies chest pain or palpit (more content not included)... Normal [facility] Partial Thromboplast Timeon 07-08-2024 aPTT Coag (Bld) [Time] 22.8 s Low 24.1-36.2 [facility] Comment on above: Performed By: #### L 300.7181, L300.3903 #### [facility] [address] [place], [address] Prothrombin Time w/INRon INR Coag (PPP) [Relative time] 1.1 {INR} Normal [facility] Comment on above: Performed By: #### L 300.4310, L300.3900 #### [facility] [address] [place], [address] PT Coag (PPP) [Time] 14.2 s Normal 11.7-14.9 [facility] Comment on above: Performed By: #### L 300.4310, L300.3900 #### [facility] [address] [place], [address] Spine Cervical (Routine)on 0 07-08-2024 Spine Cervical (Routine) [facility] Imaging Services [address] [place] [address] Spine Cervical (Routine) MR#: [id number] Acct: [id number] Name: RUBEN LOBO Rep #: [id number] : 1945 F 79 From: Karthik Barnard PCP: Dr. Rip De La Garza MD Status: [facility] Study: Spine Cervical (Routine) Date of Exam: Exam# [id number] Ordering Dr: Rip Buenrostro DO ADDENDUM by Dr. Karthik Johnston MD on 07/08/24 at 1956 [id number] STUDY: MRI CERVICAL SPINE REASON FOR EXAM: Female, 79 years old. Neck pain -- Concern for epidural hematoma -- Recent steroid injection at C7-T1 TECHNIQUE: MRI examination of the cervical spine obtained with standard protocol including multiplanar multiecho Noncontrast imaging. Contrast: No contrast administered COMPARISON: No pertinent prior examinations for comparison. FINDINGS: Vertebral bodies and alignment: 1. Vertebral body height and alignment are maintained. No marrow edema or occult fracture.. 2. Prevertebral soft tissue planes have normal appearance. Normal appearance the odontoid process and alignment of the craniocervical junction. 3. There is focal area of subcutaneous and muscular edema posteriorly at the T1-T2 level. Remaining muscular fascial planes have normal appearance, and the posterior ligamentous support structure the cervical spine is intact. Intervertebral disc levels: C2-3: Disc desiccation, no evidence of disc herniation canal or foraminal stenosis. C3-4: Disc desiccation, no disc herniation noted. There is extensive posterior epidural fluid collection which extends superiorly to level of the posterior arch of C2 consistent with a large epidural abscess versus hematoma. This does extend the full extent of the cervical spine and extends into the thoracic spine to approximately the T8 level. At C3-4, the epidural fluid measures approximately 3 mm in thickness. There is narrowing of the thecal sac, and effacement of the CSF space. The AP dimension of the thecal sac estimated at 7.6 mm. No cord compression. Neural foramina are mildly narrowed due to uncovertebral joint and facet changes. Normal appearance the endplate. C4-5: Disc desiccation, broad-based posterior disc bulge/borderline protrusion. Prominent posterior epidural fluid collection, central thecal sac is narrowed to approximately 5 mm with effacement of the spinal cord and mild flattening without evidence of cord edema or hemorrhage. The neural foramina are widely patent. Facet hypertrophic changes are present. C5-6: Disc desiccation. No disc herniation. There however is prominence of the posterior epidural fluid collection with maximal thickness of approximately 5 mm. Effacement of CSF space. Thecal sac measures approximately 6 mm. No cord compression. Mild RIGHT foraminal stenosis. C6-7: Disc desiccation without disc herniation. Posterior epidural fluid collection is noted, currently estimated at 5 mm. Effacement of CSF space. No evidence of cord compression. Neural foramina appear widely patent.. C7-T1: No disc herniation. There is disc desiccation. Posterior epidural fluid collection is again noted. Neural foramina appear widely patent. Spinal CORD: There is normal appearance the spinal cord. No intramedullary signal abnormality, masses or syrinx. Normal appearance of the cervical medullary junction. There is cord displacement due to the large posterior epidural fluid collection/hematoma versus abscess. 07/08/241955 Date cc: Dr. Rip Buenrostro DO; Dr. Rip De La Garza MD * Signed ADDENDUM by Dr. Karthik Johnston MD on 07/08/24 at 1955 MRI/Spine Cervical (Routine) IMPRESSION: 1. Extensive posterior epidural abscess versus hematoma extending throughout the full extent of the cervical canal. Appears to terminate superiorly at posterior arch of C2, and extends inferiorly to the level of T8 in the mid thoracic spine. Significant effacement of the CSF space throughout spinal canal due to the posterior epidural fluid. Displacement of the cord without evidence of cord compression or edema. No cord hemorrhage. 2. Multilevel cervical spondylosis, there is broad-based disc bulge/borderline protrusion at C4-5. 3. Normal appearance the visualized spinal cord without evidence of signal abnormality however displacement due to large posterior epidural abscess. No cord edema or hemorrhage. 4. Edema is noted posteriorly in the muscular fascial planes at the T1-T2 level, of uncertain etiology. N.B. : The above Results were Read Back by Karthik Johnston MD to Rip Buenrostro, DO, and understanding confirmed on 07/08/2024 20:05:14 (ET). Electronically Signed: Karthik Johnston MD at 19:56 EDT Reading Location ID and State: [id number] (more content not included)... Normal [facility] Spine Thoracic (Routine)on 07-08-2024 Spine Thoracic (Routine) [facility] Imaging Services [address], [place] [address] Spine Thoracic (Routine) MR#: [id number] Acct: [id number] Name: RUBEN LOBO Andres Rep #: [id number] : 1945 F 79 From: Karthik Barnard PCP: Dr. Rip De La Garza MD Status: [facility] Study: Spine Thoracic (Routine) Date of Exam: Exam# [id number] Ordering Dr: Rip Buenrostro DO [id number] STUDY: MRI THORACIC SPINE WithoutCONTRAST REASON FOR EXAM: Female, 79 years old. Pain -- Concern for epidural hematoma TECHNIQUE: MRI examination of the thoracic spine obtained with a standard protocol including multiplanar multiecho noncontrastimaging. Contrast: No contrast administered. COMPARISON: Comparison is made to MRI of the cervical spine obtained same date. FINDINGS: VERTEBRAL BODIES: 1. Vertebral body height and alignment are maintained. Prominent hemangioma present at T8. Small hemangioma at T12. 2. No evidence of fracture marrow edema or destructive marrow replacement process. 3. There is note of an extensive posterior epidural fluid collection which extends from approximately the T8-T9 level, superiorly into the cervical spine as previously noted. There is minimal thickness in the T8-T9 level estimated at approximately 1 to 2 mm, however significantly thickened superiorly, measuring approximately 9 mm at the T2 level. INTERVERTEBRAL DISC SPACES: T1-2, T2-3, T3-4, T4-5, T5-6, T6-7, T7-8, T8-9, T9-10, T10-11, T11-12: 1. Intervertebral disc spaces are maintained, there is diffuse disc desiccation without evidence of disc herniation. There is broad-based disc bulge at T12-L1. SPINAL CORD: 1. Spinal cord has normal configuration, conus terminating at L1. There is however displacement of the cord anteriorly in the mid to upper thoracic spine due to the posterior epidural fluid collection. No cord edema or hemorrhage. No significant cord flattening identified. PARASPINOUS SOFT TISSUES: The soft tissue structures are unremarkable. MRI/Spine Thoracic (Routine) IMPRESSION: 1. Prominent posterior epidural fluid collection extending from approximately the T8-T9 level, superiorly to the cervical spine. Minimal thickness in the lower thoracic spine however epidural fluid collection measures approximately 9 mm in the upper thoracic spine with effacement of the thecal CSF space. Cord displacement without acute cord compression. 2. Epidural fluid collections consistent with a prominent epidural hematoma versus developing abscess. 3. No disc herniation identified. 4. Cord has normal signal without evidence of edema or hemorrhage. Mild displacement in the upper thoracic spine. Electronically Signed: Karthik Johnston MD at 20:02 EDT , CC: Dr. Rip Buenrostro DO; Dr. Rip De La Garza MD [employer] Supervisor: Signed Normal [facility] CBC W/Diff, Automatedon 05-11 Absolute Lymph 1.23 X10 3/uL Normal 0.83-4.51 [facility] Comment on above: Order Comment: Order Date: 05/26/24Order Info: 0184-1 - CBCD Performed By: #### L 502.0250, L100.0100, L501.9520, L500.4050 ####[facility] [address] [place], [address] Absolute Neut 3.1 X10 3/uL Normal 2.0-7.7 [facility] Comment on above: Order Comment: Order Date: 05/26/24Order Info: 0184-1 - CBCD Performed By: #### L 502.0250, L100.0100, L501.9520, L500.4050 ####[facility] [address] [place], [address] Basophils/100 WBC (Bld) 0.6 % Normal 0-1 [facility] Comment on above: Order Comment: Order Date: 05/26/24Order Info: 0184-1 - CBCD Performed By: #### L 502.0250, L100.0100, L501.9520, L500.4050 ####[facility] [address] [place], [address] Eosinophils/100 WBC (Bld) 1.0 % Normal 0-5 [facility] Comment on above: Order Comment: Order Date: 05/26/24Order Info: 0184-1 - CBCD Performed By: #### L 502.0250, L100.0100, L501.9520, L500.4050 ####[facility] [address] [place], [address] Erythrocyte distribution width (RBC) [Ratio] 16.3 % High 11.6-14.6 [facility] Comment on above: Order Comment: Order Date: 05/26/24Order Info: 018- - CBCD Performed By: #### L 502.0250, L100.0100, L501.9520, L500.4050 ####[facility] [address] [place], [address] Hematocrit (Bld) [Volume fraction] 41.9 % Normal 37-47 [facility] Comment on above: Order Comment: Order Date: 05/26/24Order Info: 018- - CBCD Performed By: #### L 502.0250, L100.0100, L501.9520, L500.4050 ####[facility] [address] [place], [address] Hemoglobin (Bld) [Mass/Vol] 12.5 g/dL Normal 12.0-15.0 [facility] Comment on above: Order Comment: Order Date: 05/26/24Order Info: 018- - CBCD Performed By: #### L 502.0250, L100.0100, L501.9520, L500.4050 ####[facility] [address] [place], [address] IG% 0.200 Normal 0.0-0.9 [facility] Comment on above: Order Comment: Order Date: 05/26/24Order Info: 018- - CBCD Result Comment: IG% - Immature Granulocytes (promyelocytes, myelocytes and metamyelocytes) > 1% indicates that a LEFT SHIFT is Present. Performed By: #### L 502.0250, L100.0100, L501.9520, L500.4050 ####[facility] [address] [place], [address] Lymphocytes/100 WBC (Bld) 25.6 % Normal 19-41 [facility] Comment on above: Order Comment: Order Date: 05/26/24Order Info: 0184-1 - CBCD Performed By: #### L 502.0250, L100.0100, L501.9520, L500.4050 ####[facility] [address] [place], [address] MCH (RBC) [Entitic mass] 26.5 pg Low 27.0-32.0 [facility] Comment on above: Order Comment: Order Date: 05/26/24Order Info: 0184-1 - CBCD Performed By: #### L 502.0250, L100.0100, L501.9520, L500.4050 ####[facility] [address] [place], [address] MCHC (RBC) [Mass/Vol] 29.8 g/dL Low 32-36 [facility] Comment on above: Order Comment: Order Date: 05/26/24Order Info: 018-1 - CBCD Performed By: #### L 502.0250, L100.0100, L501.9520, L500.4050 ####[facility] [address] [place], [address] MCV (RBC) [Entitic vol] 88.8 fL Normal 81-99 [facility] Comment on above: Order Comment: Order Date: 05/26/24Order Info: 0184-1 - CBCD Performed By: #### L 502.0250, L100.0100, L501.9520, L500.4050 ####[facility] [address] [place], [address] Monocytes/100 WBC (Bld) 7.9 % Normal 0-10 [facility] Comment on above: Order Comment: Order Date: 05/26/24Order Info: 0184-1 - CBCD Performed By: #### L 502.0250, L100.0100, L501.9520, L500.4050 ####[facility] [address] [place], [address] Neutrophils/100 WBC (Bld) 64.7 % Normal 47-70 [facility] Comment on above: Order Comment: Order Date: 05/26/24Order Info: 0184-1 - CBCD Performed By: #### L 502.0250, L100.0100, L501.9520, L500.4050 ####[facility] [address] [place], [address] Nucleated RBC (Bld) [#/Vol] 0 10*3/uL Normal 0-5 [facility] Comment on above: Order Comment: Order Date: 05/26/24Order Info: 0184-1 - CBCD Performed By: #### L 502.0250, L100.0100, L501.9520, L500.4050 ####[facility] [address] [place], [address] Platelet mean volume (Bld) [Entitic vol] 11.5 fL Normal 6.2-12.0 [facility] Comment on above: Order Comment: Order Date: 05/26/24Order Info: 0184-1 - CBCD Performed By: #### L 502.0250, L100.0100, L501.9520, L500.4050 ####[facility] [address] [place], [address] Platelets (Bld) [#/Vol] 128 10*3/uL Low 150-450 [facility] Comment on above: Order Comment: Order Date: 05/26/24Order Info: 0184-1 - CBCD Performed By: #### L 502.0250, L100.0100, L501.9520, L500.4050 ####[facility] [address] [place], [address] RBC (Bld) [#/Vol] 4.72 10*6/uL Normal 4.2-5.4 [facility] Comment on above: Order Comment: Order Date: 05/26/24Order Info: 0184-1 - CBCD Performed By: #### L 502.0250, L100.0100, L501.9520, L500.4050 ####[facility] [address] [place], [address] RDW SD 53.2 fl High 35.1-43.9 [facility] Comment on above: Order Comment: Order Date: 05/26/24Order Info: 0184-1 - CBCD Performed By: #### L 502.0250, L100.0100, L501.9520, L500.4050 ####[facility] [address] [place], [address] WBC (Bld) [#/Vol] 4.8 10*3/uL Normal 4.4-11.0 [facility] Comment on above: Order Comment: Order Date: 05/26/24Order Info: 0184-1 - CBCD Performed By: #### L 502.0250, L100.0100, L501.9520, L500.4050 ####[facility] [address] [place], [address] Comprehensive Metabolic Prof [facility] 05-26-2024 Albumin [Mass/Vol] 3.6 g/dL Normal 3.2-5.0 [facility] Comment on above: Order Comment: Order Date: 05/26/24Order Info: 0786-1 - CMPOrder Info: 3016-3 - TSH Performed By: #### L 502.0250, L100.0100, L501.9520, L500.4050 ####[facility] [address] [place], [address] Albumin/Globulin [Mass ratio] 0.9 {ratio} Normal 0.9-2.4 [facility] Comment on above: Order Comment: Order Date: 05/26/24Order Info: 0786-1 - CMPOrder Info: 3016-3 - TSH Performed By: #### L 502.0250, L100.0100, L501.9520, L500.4050 ####[facility] [address] [place], [address] ALK P 61 U/L Normal 45-117 [facility] Comment on above: Order Comment: Order Date: 05/26/24Order Info: 07-1 - CMPOrder Info: 6-3 - TSH Performed By: #### L 502.0250, L100.0100, L501.9520, L500.4050 ####[facility] [address] [place], [address] ALT [Catalytic activity/Vol] 17 U/L Normal 13-56 [facility] Comment on above: Order Comment: Order Date: 05/26/24Order Info: 0786- - CMPOrder Info: 3016-3 - TSH Performed By: #### L 502.0250, L100.0100, L501.9520, L500.4050 ####[facility] [address] [place], [address] AST [Catalytic activity/Vol] 21 U/L Normal 15-37 [facility] Comment on above: Order Comment: Order Date: 05/26/24Order Info: 0786- - CMPOrder Info: 3016-3 - TSH Performed By: #### L 502.0250, L100.0100, L501.9520, L500.4050 ####[facility] [address] [place], [address] Bilirubin [Mass/Vol] 0.80 mg/dL Normal 0.20-1.00 [facility] Comment on above: Order Comment: Order Date: 05/26/24Order Info: 0786-1 - CMPOrder Info: 3016-3 - TSH Result Comment: For patients on eltrombopag therapy, use of Dimension [place] TBIL is not recommended. Performed By: #### L 502.0250, L100.0100, L501.9520, L500.4050 ####[facility] [address] [place], [address] BUN/CRE 20.4 RATIO High 10-20 [facility] Comment on above: Order Comment: Order Date: 05/26/24Order Info: [id number] - CMPOrder Info: [id number] - TSH Performed By: #### L 502.0250, L100.0100, L501.9520, L500.4050 ####[facility] [address] [place], [address] CA,Total 8.9 mg/dL Normal 8.5-10.1 [facility] Comment on above: Order Comment: Order Date: 05/26/24Order Info: [id number] - CMPOrder Info: [id number] - TSH Performed By: #### L 502.0250, L100.0100, L501.9520, L500.4050 ####[facility] [address] [place], [address] Chloride [Moles/Vol] 104 mmol/L Normal 98-107 [facility] Comment on above: Order Comment: Order Date: 05/26/24Order Info: [id number] - CMPOrder Info: [id number] - TSH Performed By: #### L 502.0250, L100.0100, L501.9520, L500.4050 ####[facility] [address] [place], [address] CO2 [Moles/Vol] 29.0 mmol/L Normal 21.0-32.0 [facility] Comment on above: Order Comment: Order Date: 05/26/24Order Info: [id number] - CMPOrder Info: [id number] - TSH Performed By: #### L 502.0250, L100.0100, L501.9520, L500.4050 ####[facility] [address] [place], [address] Creatinine [Mass/Vol] 0.74 mg/dL Normal 0.55-1.02 [facility] Comment on above: Order Comment: Order Date: 05/26/24Order Info: [id number] - CMPOrder Info: [id number] - TSH Result Comment: The validity of the calculated GFR GFRAA in patients over 70 years has not been determined. Clinical correlation is essential. Performed By: #### L 502.0250, L100.0100, L501.9520, L500.4050 ####[facility] [address] [place], [address] EST GFR - AA 98 mL/min Normal >60 [facility] Comment on above: Order Comment: Order Date: 05/26/24Order Info: [id number] - CMPOrder Info: [id number] - TSH Result Comment: Afri can Turkish GFR Calc Performed By: #### L 502.0250, L100.0100, L501.9520, L500.4050 ####[facility] [address] [place], [address] GAP 6 Normal 5-15 [facility] Comment on above: Order Comment: Order Date: 05/26/24Order Info: [id number] - CMPOrder Info: [id number] - TSH Performed By: #### L 502.0250, L100.0100, L501.9520, L500.4050 ####[facility] [address] [place], [address] GFR/1.73 sq M.predicted among non-blacks MDRD (S/P/Bld) [Vol rate/Area] 81 mL/min/{1.73_m2} Normal >60 [facility] Comment on above: Order Comment: Order Date: 05/26/24Order Info: [id number] - CMPOrder Info: [id number] - TSH Result Comment: Non- GFR Calc Performed By: #### L 502.0250, L100.0100, L501.9520, L500.4050 ####[facility] [address] [place], [address] Globulin (S) [Mass/Vol] 3.8 g/dL Normal 2.2-4.2 [facility] Comment on above: Order Comment: Order Date: 05/26/24Order Info: 07- - CMPOrder Info: 3 - TSH Performed By: #### L 502.0250, L100.0100, L501.9520, L500.4050 ####[facility] [address] [place], [address] Glucose [Mass/Vol] 106 mg/dL Normal 74-106 [facility] Comment on above: Order Comment: Order Date: 05/26/24Order Info: [id number] - CMPOrder Info: [id number] - TSH Result Comment: Fast ing Glucose result from 100 to 125 mg/dL suggests IMPAIRED HOMEOSTASIS per A.D.A. criteria. Performed By: #### L 502.0250, L100.0100, L501.9520, L500.4050 ####[facility] [address] [place], [address] Potassium [Moles/Vol] 3.6 mmol/L Normal 3.5-5.1 [facility] Comment on above: Order Comment: Order Date: 05/26/24Order Info: [id number]- - CMPOrder Info: [id number] - TSH Performed By: #### L 502.0250, L100.0100, L501.9520, L500.4050 ####[facility] [address] [place], [address] Sodium [Moles/Vol] 139 mmol/L Normal 136-145 [facility] Comment on above: Order Comment: Order Date: 05/26/24Order Info: [id number] - CMPOrder Info: [id number] - TSH Performed By: #### L 502.0250, L100.0100, L501.9520, L500.4050 ####[facility] [address] [place], [address] T PROT 7.4 g/dL Normal 6.4-8.2 [facility] Comment on above: Order Comment: Order Date: 05/26/24Order Info: [id number] - CMPOrder Info: [id number] - TSH Performed By: #### L 502.0250, L100.0100, L501.9520, L500.4050 ####[facility] [address] [place], [address] Urea nitrogen [Mass/Vol] 15 mg/dL Normal 7-18 [facility] Comment on above: Order Comment: Order Date: 05/26/24Order Info: [id number] - CMPOrder Info: [id number] - TSH Performed By: #### L 502.0250, L100.0100, L501.9520, L500.4050 ####[facility] [address] [place], [address] Microalb:Creat Ratio,Random URon 05-26-2024 Creatinine [Mass/Vol] 76.10 mg/dL Normal NO RAN GE EST. [facility] Comment on above: Order Comment: Order Date: 05/26/24Order Info: [id number] - MIACRE Performed By: #### L 502.0250, L100.0100, L501.9520, L500.4050 ####[facility] [address] [place], [address] MALB:CRE 25.6 mg/g CRE Normal <30 mg/g CRE [facility] Comment on above: Order Comment: Order Date: 05/26/24Order Info: [id number] - MIACRE Performed By: #### L 502.0250, L100.0100, L501.9520, L500.4050 ####[facility] [address] [place], [address] MICROALBUMIN,UR 19.5 mg/L Normal NO RANGE EST. [facility] Comment on above: Order Comment: Order Date: 05/26/24Order Info: [id number] - MIACRE Performed By: #### L 502.0250, L100.0100, L501.9520, L500.4050 ####[facility] [address] [place], [address] Thyroid Stim Hormone (TSH)on 05-26-2024 TSH 1.76 uIU/mL Normal 0.358-3.74 [facility] Comment on above: Order Comment: Order Date: 05/26/24Order Info: [id number] - CMPOrder Info: [id number] - TSH Performed By: #### L 502.0250, L100.0100, L501.9520, L500.4050 ####[facility] [address] [place], [place], [address] Absolute lymphocyte countOrd ered By: Earnest Haji on 10-12-2023 Lymphocytes Auto (Unsp spec) [#/Vol] 1.03 10*3/uL 0.83-4.51 [facility] Basophil percentageOrdered B y: Earnest Haji on 10-12-2023 Basophil percentage 0 SEEN /hpf 0-5 [facility] Basophils/100 WBC (Bld) 0.7 % 0-1 [facility] Bilirubin [Mass/Vol] 0.80 mg/dL 0.20-1.00 [facility] Comment on above: For patients on eltr ombopag therapy, use of Dimension Newell TBIL is not recommended. Chloride [Moles/Vol] 106 mmol/L 98-107 [facility] Eosinophils/100 WBC (Bld) 0.7 % 0-5 [facility] Glucose [Mass/Vol] 125 mg/dL 74-106 [facility] Comment on above: Fasting Glucose resu lt from 100 to 125 mg/dL suggests IMPAIRED HOMEOSTASIS per A.D.A. criteria. Neutrophils (Bld) [#/Vol] 3.0 10*3/uL 2.0-7.7 [facility] Neutrophils/100 WBC (Bld) 66.9 % 47-70 [facility] Potassium [Moles/Vol] 3.8 mmol/L 3.5-5.1 [facility] Protein [Mass/Vol] 7.0 g/dL 6.4-8.2 [facility] Sodium [Moles/Vol] 141 mmol/L 136-145 [facility] WBC (Bld) [#/Vol] 4.5 10*3/uL 4.4-11.0 [facility] Bilirubin Test strip Ql (U)O rdered By: Earnest Haji on 10-12-2023 Bilirubin Ql (U) Negative Negative [facility] Blood erythrocytes count (nu mber/volume)Ordered By: Earnest Haji on 10-12-2023 RBC (Bld) [#/Vol] 4.47 10*6/uL 4.2-5.4 [facility] Blood hemoglobin measurement (mass/volume)Ordered By: Earnest Haji on 10-12-2023 Hemoglobin (Bld) [Mass/Vol] 13.5 g/dL 12.0-15.0 [facility] Blood lymphocytes/100 leukoc ytesOrdered By: Earnest Haji on 10-12-2023 Lymphocytes/100 WBC (Bld) 23.0 % 19-41 [facility] Blood monocytes/100 leukocyt esOrdered By: Earnest Haji on 10-12-2023 Monocytes/100 WBC (Bld) 8.0 % 0-10 [facility] Blood platelet mean volumeOr dered By: Earnest Haji on 10-12-2023 Platelet mean volume (Bld) [Entitic vol] 10.7 fL 6.2-12.0 [facility] Determination of erythrocyte mean corpuscular volume (MCV)Ordered By: Earnest Haji on 10-12-2023 MCV (RBC) [Entitic vol] 93.7 fL 81-99 [facility] Hematocrit Auto (Bld) [Volum e fraction]Ordered By: Earnest Haji on 10-12-2023 Hematocrit (Bld) [Volume fraction] 41.9 % 37-47 [facility] Ketones Test strip Ql (U)Ord ered By: Earnest Haji on 10-12-2023 Ketones Ql (U) Negative Negative [facility] Laboratory - Chemistry and C hemistry - challengeOrdered By: Earnest Haji on 10-12-2023 ALP [Catalytic activity/Vol] 70 U/L 45-117 [facility] ALT [Catalytic activity/Vol] 22 U/L 13-56 [facility] CO2 [Moles/Vol] 30.0 mmol/L 21.0-32.0 [facility] Globulin (S) [Mass/Vol] 3.4 g/dL 2.2-4.2 [facility] Urea nitrogen/Creatinine [Mass ratio] 20.3 mg/mg 10-20 [facility] Laboratory - Hematology and Cell countsOrdered By: Earnest Haji on 10-12-2023 Erythrocyte distribution width (RBC) [Entitic vol] 47.0 fL 35.1-43.9 [facility] Erythrocyte distribution width (RBC) [Ratio] 13.6 % 11.6-14.6 [facility] Immature granulocytes/100 WBC (Bld) 0.700 % 0.0-0.9 [facility] Comment on above: IG% - Immature Granu locytes (promyelocytes, myelocytes and metamyelocytes) > 1% indicates that a LEFT SHIFT is Present. MCH (RBC) [Entitic mass] 30.2 pg 27.0-32.0 [facility] Nucleated RBC/100 WBC (Bld) [Ratio] 0 % 0-5 [facility] MCHC Auto (RBC) [Mass/Vol]Or dered By: Earnest Haji on 10-12-2023 MCHC (RBC) [Mass/Vol] 32.2 g/dL 32-36 [facility] Mucus LM Ql (Urine sed)Order ed By: Earnest Haji on 10-12-2023 Mucus Ql (Urine sed) 0 SEEN /hpf [facility] Nitrite Test strip Ql (U)Ord ered By: Earnest Haji on 10-12-2023 Nitrite Ql (U) Negative Negative [facility] No Panel InformationOrdered By: Earnest Haji on 10-12-2023 Estimated Creatinine Clearance Calc 33.30 ml/min [facility] Estimated GFR (MDRD) Amer 98 mL/min >60 [facility] Comment on above: GFR Calc Estimated GFR (MDRD) Non-Af Amer 81 mL/min >60 [facility] Comment on above: Non- GFR Calc Troponin I High Sensitivity 16 pg/mL 3.0-54.0 [facility] Comment on above: Please Note: [place] t Units and Gender Specific Reference Ranges. For more information see Policy Stat Procedure Newell High Sensitivity Troponin (TNIH) and attachments. Platelets bldOrdered By: Abdulkadir Haji on 10-12-2023 Platelets (Bld) [#/Vol] 119 10*3/uL 150-450 [facility] Protein Test strip Ql (U)Ord ered By: Earnest Haji on 10-12-2023 Protein Ql (U) Negative Negative [facility] Serum or plasma albumin unruly urement (mass/volume)Ordered By: Earnest Haji on 10-12-2023 Albumin [Mass/Vol] 3.6 g/dL 3.2-5.0 [facility] Serum or plasma albumin/glob ulin mass ratioOrdered By: Earnest Haji on 10-12-2023 Albumin/Globulin [Mass ratio] 1.1 {ratio} 0.9-2.4 [facility] Serum or plasma calcium unruly urement (mass/volume)Ordered By: Earnest Haji on 10-12-2023 Calcium [Mass/Vol] 8.9 mg/dL 8.5-10.1 [facility] Serum or plasma creatinine m easurement (mass/volume)Ordered By: Earnest Haji on 10-12-2023 Creatinine [Mass/Vol] 0.74 mg/dL 0.55-1.02 [facility] Comment on above: The validity of the calculated GFR & GFRAA in patients over 70 years has not been determined. Clinical correlation is essential. Serum or plasma urea nitroge n measurement (mass/volume)Ordered By: Earnest Haji on 10-12-2023 Urea nitrogen [Mass/Vol] 15 mg/dL 7-18 [facility] Squamous epithelial cells de tection in urine sediment by light microscopyOrdered By: Earnest Haji on 10-12-2023 Epithelial cells.squamous LM Ql (Urine sed) 0 SEEN /hpf 5-10 [facility] Thin prep Papanicolaou smear with manual screeningOrdered By: Earnest Haji on 10-12-2023 Thin prep Papanicolaou smear with manual screening 20 U/L 15-37 [facility] Thin prep Papanicolaou smear with manual screening 5 5-15 [facility] Urine blood detectionOrdered By: Earnest Haji on 10-12-2023 RBC Ql (U) Negative Negative [facility] RBC Ql (U) 0 SEEN /hpf 0-5 [facility] Urine clarityOrdered By: Abdulkadir Haji on 10-12-2023 Clarity (U) Clear Clear [facility] Urine color determinationOrd ered By: Earnest Haji on 10-12-2023 Color (U) Straw Yellow [facility] Urine glucose detectionOrder ed By: Earnest Haji on 10-12-2023 Glucose Ql (U) Normal mg/dl Normal [facility] Urine leukocyte esterase det ection by dipstickOrdered By: Earnest Haji on 10-12-2023 Leukocyte esterase Test strip Ql (U) Negative Negative [facility] Urine pHOrdered By: Earnest mckeon on 10-12-2023 pH (U) 7.0 [pH] 5.0 - 8.0 [facility] Urine sediment bacteria coun t by microscopy (number/high power field)Ordered By: Earnest Haji on 10-12-2023 Bacteria LM.HPF (Urine sed) [#/Area] 0 /[HPF] None Seen [facility] Urine specific gravity measu rementOrdered By: Earnest Haji on 10-12-2023 Specific gravity (U) [Rel density] 1.010 1.002-1.030 [facility] Urobilinogen Auto test strip Ql (U)Ordered By: Earnest Haji on 10-12-2023 Urobilinogen Ql (U) Normal mg/dl Normal [facility] Absolute lymphocyte countOrd ered By: Rip De La Garza on 06-14-2023 Lymphocytes Auto (Unsp spec) [#/Vol] 1.33 10*3/uL 0.83-4.51 [facility] Basophil percentageOrdered B y: Rip De La Garza on 06-14-2023 Basophils/100 WBC (Bld) 0.4 % 0-1 [facility] Bilirubin [Mass/Vol] 0.70 mg/dL 0.20-1.00 [facility] Comment on above: For patients on eltr ombopag therapy, use of Dimension Newell TBIL is not recommended. Chloride [Moles/Vol] 108 mmol/L 98-107 [facility] Eosinophils/100 WBC (Bld) 0.5 % 0-5 [facility] Glucose [Mass/Vol] 104 mg/dL 74-106 [facility] Comment on above: Fasting Glucose resu lt from 100 to 125 mg/dL suggests IMPAIRED HOMEOSTASIS per A.D.A. criteria. Neutrophils (Bld) [#/Vol] 3.6 10*3/uL 2.0-7.7 [facility] Neutrophils/100 WBC (Bld) 66.4 % 47-70 [facility] Potassium [Moles/Vol] 3.7 mmol/L 3.5-5.1 [facility] Protein [Mass/Vol] 7.5 g/dL 6.4-8.2 [facility] Sodium [Moles/Vol] 141 mmol/L 136-145 [facility] WBC (Bld) [#/Vol] 5.5 10*3/uL 4.4-11.0 [facility] Blood erythrocytes count (nu mber/volume)Ordered By: Rip eD La Garza on 06-14-2023 RBC (Bld) [#/Vol] 4.66 10*6/uL 4.2-5.4 [facility] Blood hemoglobin measurement (mass/volume)Ordered By: Rip De La Garza on 06-14-2023 Hemoglobin (Bld) [Mass/Vol] 12.8 g/dL 12.0-15.0 [facility] Blood lymphocytes/100 leukoc ytesOrdered By: Rip De La Garza on 06-14-2023 Lymphocytes/100 WBC (Bld) 24.4 % 19-41 [facility] Blood monocytes/100 leukocyt esOrdered By: Rip De La Garza on 06-14-2023 Monocytes/100 WBC (Bld) 7.9 % 0-10 [facility] Blood platelet mean volumeOr dered By: Rip De La Garza on 06-14-2023 Platelet mean volume (Bld) [Entitic vol] 11.9 fL 6.2-12.0 [facility] Determination of erythrocyte mean corpuscular volume (MCV)Ordered By: Rip De La Garza on 06-14-2023 MCV (RBC) [Entitic vol] 91.0 fL 81-99 [facility] Hematocrit Auto (Bld) [Volum e fraction]Ordered By: Rip De La Garza on 06-14-2023 Hematocrit (Bld) [Volume fraction] 42.4 % 37-47 [facility] Laboratory - Chemistry and C hemistry - challengeOrdered By: Rip De La Garza on 06-14-2023 ALP [Catalytic activity/Vol] 55 U/L 45-117 [facility] ALT [Catalytic activity/Vol] 20 U/L 13-56 [facility] CO2 [Moles/Vol] 31.0 mmol/L 21.0-32.0 [facility] Globulin (S) [Mass/Vol] 3.8 g/dL 2.2-4.2 [facility] Urea nitrogen/Creatinine [Mass ratio] 17.3 mg/mg 10-20 [facility] Laboratory - Hematology and Cell countsOrdered By: Rip De La Garza on 06-14-2023 Erythrocyte distribution width (RBC) [Entitic vol] 51.2 fL 35.1-43.9 [facility] Erythrocyte distribution width (RBC) [Ratio] 15.5 % 11.6-14.6 [facility] Immature granulocytes/100 WBC (Bld) 0.400 % 0.0-0.9 [facility] Comment on above: IG% - Immature Granu locytes (promyelocytes, myelocytes and metamyelocytes) > 1% indicates that a LEFT SHIFT is Present. MCH (RBC) [Entitic mass] 27.5 pg 27.0-32.0 [facility] Nucleated RBC/100 WBC (Bld) [Ratio] 0 % 0-5 [facility] MCHC Auto (RBC) [Mass/Vol]Or dered By: Rip De La Garza on 06-14-2023 MCHC (RBC) [Mass/Vol] 30.2 g/dL 32-36 [facility] No Panel InformationOrdered By: Rip De La Garza on 06-14-2023 Estimated GFR (MDRD) Amer 88 mL/min >60 [facility] Comment on above: GFR Calc Estimated GFR (MDRD) Non-Af Amer 73 mL/min >60 [facility] Comment on above: Non- GFR Calc Thyroid Stimulating Hormone (TSH) 1.87 uIU/mL 0.358-3.74 [facility] Platelets bldOrdered By: Julianna De La Garza on 06-14-2023 Platelets (Bld) [#/Vol] 142 10*3/uL 150-450 [facility] Serum or plasma albumin unruly urement (mass/volume)Ordered By: Rip De La Garza on 06-14-2023 Albumin [Mass/Vol] 3.7 g/dL 3.2-5.0 [facility] Serum or plasma albumin/glob ulin mass ratioOrdered By: Rip De La Garza on 06-14-2023 Albumin/Globulin [Mass ratio] 1.0 {ratio} 0.9-2.4 [facility] Serum or plasma calcium unruly urement (mass/volume)Ordered By: Rip De La Garza on 06-14-2023 Calcium [Mass/Vol] 8.9 mg/dL 8.5-10.1 [facility] Serum or plasma creatinine m easurement (mass/volume)Ordered By: Rip De La Garza on 06-14-2023 Creatinine [Mass/Vol] 0.81 mg/dL 0.55-1.02 [facility] Comment on above: The validity of the calculated GFR & GFRAA in patients over 70 years has not been determined. Clinical correlation is essential. Serum or plasma urea nitroge n measurement (mass/volume)Ordered By: Rip De La Garza on 06-14-2023 Urea nitrogen [Mass/Vol] 14 mg/dL 7-18 [facility] Thin prep Papanicolaou smear with manual screeningOrdered By: Rip De La Garza on 06-14-2023 Thin prep Papanicolaou smear with manual screening 27 U/L 15-37 [facility] Thin prep Papanicolaou smear with manual screening 2 5-15 [facility] Glucose Glucometer (BldC) [M ass/Vol]on 10-01-2022 Glucose [Mass/Vol] 145 mg/dL 74-106 [facility] Work Phone: Comment on above: MANAGEMENT OF PATIEN T CARE PER NURSING PROTOCOL Absolute lymphocyte counton 09-24-2022 Lymphocytes Auto (Unsp spec) [#/Vol] 1.08 10*3/uL 0.83-4.51 [facility] Work Phone: Basophil percentageon 2021 Basophils/100 WBC (Bld) 0.6 % 0-1 [facility] Work Phone: Chloride [Moles/Vol] 107 mmol/L 98-107 [facility] Work Phone: Eosinophils/100 WBC (Bld) 2.1 % 0-5 [facility] Work Phone: Glucose [Mass/Vol] 142 mg/dL 74-106 [facility] Work Phone: Comment on above: Fasting Glucose resu lt greater than or equal to 126 mg/dL suggests DIABETES MELLITUS per A.D.A. criteria. Neutrophils (Bld) [#/Vol] 3.1 10*3/uL 2.0-7.7 [facility] Work Phone: Neutrophils/100 WBC (Bld) 66.0 % 47-70 [facility] Work Phone: Potassium [Moles/Vol] 4.1 mmol/L 3.5-5.1 [facility] Work Phone: Sodium [Moles/Vol] 143 mmol/L 136-145 [facility] Work Phone: WBC (Bld) [#/Vol] 4.8 10*3/uL 4.4-11.0 [facility] Work Phone: Blood erythrocytes count (nu mber/volume)on 09-24-2022 RBC (Bld) [#/Vol] 4.11 10*6/uL 4.2-5.4 [facility] Work Phone: Blood hemoglobin measurement (mass/volume)on 09-24-2022 Hemoglobin (Bld) [Mass/Vol] 12.9 g/dL 12.0-15.0 [facility] Work Phone: Blood lymphocytes/100 leukoc yteson 09-24-2022 Lymphocytes/100 WBC (Bld) 22.7 % 19-41 [facility] Work Phone: Blood monocytes/100 leukocyt eson 09-24-2022 Monocytes/100 WBC (Bld) 8.4 % 0-10 [facility] Work Phone: Blood platelet mean volumeon 09-24-2022 Platelet mean volume (Bld) [Entitic vol] 11.5 fL 6.2-12.0 [facility] Work Phone: Determination of erythrocyte mean corpuscular volume (MCV)on 09-24-2022 MCV (RBC) [Entitic vol] 96.6 fL 81-99 [facility] Work Phone: Hematocrit Auto (Bld) [Volum e fraction]on 09-24-2022 Hematocrit (Bld) [Volume fraction] 39.7 % 37-47 [facility] Work Phone: Laboratory - Chemistry and C hemistry - challengeon 09-24-2022 CO2 [Moles/Vol] 31.0 mmol/L 21.0-32.0 [facility] Work Phone: Magnesium [Mass/Vol] 2.3 mg/dL 1.6-2.6 [facility] Work Phone: [phone] Urea nitrogen/Creatinine [Mass ratio] 26.3 mg/mg 10-20 [facility] Work Phone: [phone] Laboratory - Hematology and Cell countson 09-24-2022 Erythrocyte distribution width (RBC) [Entitic vol] 47.4 fL 35.1-43.9 [facility] Work Phone: [phone] Erythrocyte distribution width (RBC) [Ratio] 13.3 % 11.6-14.6 [facility] Work Phone: Immature granulocytes/100 WBC (Bld) 0.200 % 0.0-0.9 [facility] Work Phone: Comment on above: IG% - Immature Granu locytes (promyelocytes, myelocytes and metamyelocytes) > 1% indicates that a LEFT SHIFT is Present. MCH (RBC) [Entitic mass] 31.4 pg 27.0-32.0 [facility] Work Phone: Nucleated RBC/100 WBC (Bld) [Ratio] 0 % 0-5 [facility] Work Phone: MCHC Auto (RBC) [Mass/Vol]on 09-24-2022 MCHC (RBC) [Mass/Vol] 32.5 g/dL 32-36 [facility] Work Phone: No Panel Informationon 09-24 Estimated GFR (MDRD) Amer 90 mL/min >60 [facility] Work Phone: Comment on above: GFR Calc Estimated GFR (MDRD) Non-Af Amer 74 mL/min >60 [facility] Work Phone: Comment on above: Non- GFR Calc Platelets bldon 09-24-2022 Platelets (Bld) [#/Vol] 119 10*3/uL 150-450 [facility] Work Phone: Serum or plasma albumin unruly urement (mass/volume)on 09-24-2022 Albumin [Mass/Vol] 3.3 g/dL 3.2-5.0 [facility] Work Phone: Serum or plasma calcium unruly urement (mass/volume)on 09-24-2022 Calcium [Mass/Vol] 9.1 mg/dL 8.5-10.1 [facility] Work Phone: Serum or plasma creatinine m easurement (mass/volume)on 09-24-2022 Creatinine [Mass/Vol] 0.80 mg/dL 0.55-1.02 [facility] Work Phone: Comment on above: The validity of the calculated GFR & GFRAA in patients over 70 years has not been determined. Clinical correlation is essential. Serum or plasma urea nitroge n measurement (mass/volume)on 09-24-2022 Urea nitrogen [Mass/Vol] 21 mg/dL 7-18 [facility] Work Phone: Thin prep Papanicolaou smear with manual screeningon 09-24-2022 Thin prep Papanicolaou smear with manual screening 5 5-15 [facility] Work Phone: Whole blood hemoglobin A1c/t otal hemoglobin ratio (mass fraction)on 09-24-2022 HbA1c (Bld) [Mass fraction] 5.2 % 3.8-5.6 [facility] Work Phone: [phone] Comment on above: Normal < 5.7 % Predi abetic 5.7 - 6.4 % Diabetic >or= 6.5 % Please note range changes. Basophil percentageon 2021 Bilirubin [Mass/Vol] 0.60 mg/dL 0.20-1.00 [facility]: [phone] Comment on above: For patients on eltr ombopag therapy, use of Dimension Newell TBIL is not recommended. Protein [Mass/Vol] 7.7 g/dL 6.4-8.2 [facility] Work Phone: [phone] Direct bilirubinon Bilirubin.direct [Mass/Vol] 0.17 mg/dL 0.00-0.30 [facility] Work Phone: [phone] Laboratory - Chemistry and C hemistry - challengeon 09-13-2022 ALP [Catalytic activity/Vol] 80 U/L 45-117 [facility] Work Phone: [phone] ALT [Catalytic activity/Vol] 41 U/L 13-56 [facility] Work Phone: [phone] Globulin (S) [Mass/Vol] 4.2 g/dL 2.2-4.2 [facility] Work Phone: [phone] Panel Informationon 09-13 Thyroid Stimulating Hormone (TSH) 2.77 uIU/mL 0.358-3.74 [facility] Work Phone: [phone] Serum or plasma albumin unruly urement (mass/volume)on 09-13-2022 Albumin [Mass/Vol] 3.5 g/dL 3.2-5.0 [facility] Work Phone: [phone] Thin prep Papanicolaou smear with manual screeningon 09-13-2022 Thin prep Papanicolaou smear with manual screening 48 U/L 15-37 [facility] Work Phone: Basophil percentageon 2021 Bilirubin [Mass/Vol] 0.40 mg/dL 0.20-1.00 [facility] Work Phone: [phone] Comment on above: For patients on eltr ombopag therapy, use of Dimension Newell TBIL is not recommended. Cholesterol [Mass/Vol] 125 mg/dL <200 [facility] Work Phone: [phone] Comment on above: <200 mg/dL Desirable 200-240 mg/dL Borderline >240 mg/dL High Risk Protein [Mass/Vol] 6.4 g/dL 6.4-8.2 [facility] Work Phone: [phone] Triglyceride [Mass/Vol] 129 mg/dL <199 [facility] Work Phone: [phone] Comment on above: The drugs N-Acetylcy steine and Metamizole may falsely depress this assay.Serum Triglycerides Reference Interval Normal <150 mg/dL Borderline high 150 - 199 mg/dL High 200 - 499 mg/dL Very High > or = 500 mg/dL Direct bilirubinon Bilirubin.direct [Mass/Vol] 0.12 mg/dL 0.00-0.30 [facility] Work Phone: [phone] Laboratory - Chemistry and C hemistry - challengeon 07-12-2022 ALP [Catalytic activity/Vol] 96 U/L 45-117 [facility] Work Phone: [phone] ALT [Catalytic activity/Vol] 107 U/L 13-56 [facility] Work Phone: [phone] Globulin (S) [Mass/Vol] 3.9 g/dL 2.2-4.2 [facility] Work Phone: [phone] [Mass/Vol] 8.6 ug/dL 4.8-13.9 [facility] Work Phone: [phone] Panel Informationon 07-12 Thyroid Stimulating Hormone (TSH) 4.19 uIU/mL 0.358-3.74 [facility] Work Phone: [phone] Serum or plasma albumin unruly urement (mass/volume)on 07-12-2022 Albumin [Mass/Vol] 2.5 g/dL 3.2-5.0 [facility] Work Phone: [phone] Serum or plasma cholesterol in HDL measurement (mass/volume)on 07-12-2022 Cholesterol in HDL [Mass/Vol] 34 mg/dL >40 [facility] Work Phone: Comment on above: The drugs N-Acetylcy steine and Metamizole may falsely depress this assay. Reference Range HDL <40 mg/dL Low HDL Cholesterol HDL >or= 60 mg/dL High HDL Cholesterol Serum or plasma cholesterol in VLDL measurement (mass/volume)on 07-12-2022 Cholesterol in VLDL [Mass/Vol] 26 mg/dL 5-40 [facility] Work Phone: [phone] Serum or plasma low density lipoprotein (LDL) cholesterol measurement (mass/volume)on 07-12-2022 Cholesterol in LDL [Mass/Vol] 65 mg/dL 0-130 [facility] Work Phone: Thin prep Papanicolaou smear with manual screeningon 07-12-2022 Thin prep Papanicolaou smear with manual screening 74 U/L 15-37 [facility] Work Phone: Serum heterophile antibody d etectionon 07-10-2022 Heterophile Ab Ql (S) Negative Negative [facility] Work Phone: Absolute lymphocyte counton 07-06-2022 Lymphocytes Auto (Unsp spec) [#/Vol] 1.16 10*3/uL 0.83-4.51 [facility] Work Phone: Basophil percentageon 2021 Basophils/100 WBC (Bld) 0.6 % 0-1 [facility] Work Phone: [phone] Bilirubin [Mass/Vol] 0.70 mg/dL 0.20-1.00 [facility] Work Phone: Comment on above: For patients on eltr ombopag therapy, use of Dimension Newell TBIL is not recommended. Chloride [Moles/Vol] 106 mmol/L 98-107 [facility] Work Phone: Eosinophils/100 WBC (Bld) 0.3 % 0-5 [facility] Work Phone: Glucose [Mass/Vol] 122 mg/dL 74-106 [facility] Work Phone: Comment on above: Fasting Glucose resu lt from 100 to 125 mg/dL suggests IMPAIRED HOMEOSTASIS per A.D.A. criteria. Neutrophils (Bld) [#/Vol] 5.9 10*3/uL 2.0-7.7 [facility] Work Phone: Neutrophils/100 WBC (Bld) 76.2 % 47-70 [facility] Work Phone: Potassium [Moles/Vol] 4.2 mmol/L 3.5-5.1 [facility] Work Phone: [phone] Protein [Mass/Vol] 6.8 g/dL 6.4-8.2 [facility] Work Phone: [phone] Sodium [Moles/Vol] 141 mmol/L 136-145 [facility] Work Phone: WBC (Bld) [#/Vol] 7.7 10*3/uL 4.4-11.0 [facility] Work Phone: Blood erythrocytes count (nu mber/volume)on 07-06-2022 RBC (Bld) [#/Vol] 4.25 10*6/uL 4.2-5.4 [facility] Work Phone: Blood hemoglobin measurement (mass/volume)on 07-06-2022 Hemoglobin (Bld) [Mass/Vol] 13.3 g/dL 12.0-15.0 [facility] Work Phone: Blood lymphocytes/100 leukoc yteson 07-06-2022 Lymphocytes/100 WBC (Bld) 15.0 % 19-41 [facility] Work Phone: Blood monocytes/100 leukocyt eson 07-06-2022 Monocytes/100 WBC (Bld) 6.6 % 0-10 [facility] Work Phone: Blood platelet mean volumeon 07-06-2022 Platelet mean volume (Bld) [Entitic vol] 11.0 fL 6.2-12.0 [facility] Work Phone: [phone] Determination of erythrocyte mean corpuscular volume (MCV)on 07-06-2022 MCV (RBC) [Entitic vol] 97.9 fL 81-99 [facility] Work Phone: [phone] Erythrocyte sedimentation ra marcia 07-06-2022 ESR (Bld) [Velocity] 14 mm/h 0-30 [facility] Work Phone: [phone] Hematocrit Auto (Bld) [Volum e fraction]on 07-06-2022 Hematocrit (Bld) [Volume fraction] 41.6 % 37-47 [facility] Work Phone: [phone] Laboratory - Chemistry and C hemistry - challengeon 07-06-2022 ALP [Catalytic activity/Vol] 91 U/L 45-117 [facility] Work Phone: [phone] ALT [Catalytic activity/Vol] 274 U/L 13-56 [facility] Work Phone: [phone] CO2 [Moles/Vol] 32.0 mmol/L 21.0-32.0 [facility] Work Phone: [phone] Globulin (S) [Mass/Vol] 4.2 g/dL 2.2-4.2 [facility] Work Phone: [phone] Urea nitrogen/Creatinine [Mass ratio] 17.4 mg/mg 10-20 [facility] Work Phone: [phone] Laboratory - Hematology and Cell countson 07-06-2022 Erythrocyte distribution width (RBC) [Entitic vol] 50.8 fL 35.1-43.9 [facility] Work Phone: [phone] Erythrocyte distribution width (RBC) [Ratio] 14.1 % 11.6-14.6 [facility] Work Phone: [phone] Immature granulocytes/100 WBC (Bld) 1.300 % 0.0-0.9 [facility] Work Phone: [phone] Comment on above: IG% - Immature Granu locytes (promyelocytes, myelocytes and metamyelocytes) > 1% indicates that a LEFT SHIFT is Present. MCH (RBC) [Entitic mass] 31.3 pg 27.0-32.0 [facility] Work Phone: [phone] Nucleated RBC/100 WBC (Bld) [Ratio] 0 % 0-5 [facility] Work Phone: [phone] MCHC Auto (RBC) [Mass/Vol]on 07-06-2022 MCHC (RBC) [Mass/Vol] 32.0 g/dL 32-36 [facility] Work Phone: [phone] Panel Informationon 07-06 Estimated GFR (MDRD) Amer 63 mL/min >60 [facility] Work Phone: [phone] Comment on above: GFR Calc Estimated GFR (MDRD) Non-Af Amer 52 mL/min >60 [facility] Work Phone: [phone] Comment on above: Non- GFR Calc Thyroid Stimulating Hormone (TSH) 2.23 uIU/mL 0.358-3.74 [facility] Work Phone: Platelets bldon 07-06-2022 Platelets (Bld) [#/Vol] 235 10*3/uL 150-450 [facility] Work Phone: [phone] Serum or plasma albumin unruly urement (mass/volume)on 07-06-2022 Albumin [Mass/Vol] 2.6 g/dL 3.2-5.0 [facility] Work Phone: [phone] Serum or plasma albumin/glob ulin mass ratioon 07-06-2022 Albumin/Globulin [Mass ratio] 0.6 {ratio} 0.9-2.4 [facility] Work Phone: [phone] Serum or plasma calcium unruly urement (mass/volume)on 07-06-2022 Calcium [Mass/Vol] 8.2 mg/dL 8.5-10.1 [facility] Work Phone: [phone] Serum or plasma creatinine m easurement (mass/volume)on 07-06-2022 Creatinine [Mass/Vol] 1.09 mg/dL 0.55-1.02 [facility] Work Phone: Comment on above: The validity of the calculated GFR & GFRAA in patients over 70 years has not been determined. Clinical correlation is essential. Serum or plasma urea nitroge n measurement (mass/volume)on 07-06-2022 Urea nitrogen [Mass/Vol] 19 mg/dL 7-18 [facility] Work Phone: Thin prep Papanicolaou smear with manual screeningon 07-06-2022 Thin prep Papanicolaou smear with manual screening 230 U/L 15-37 [facility] Work Phone: Thin prep Papanicolaou smear with manual screening 3 5-15 [facility] Work Phone: Absolute lymphocyte counton 05-17-2022 Lymphocytes Auto (Unsp spec) [#/Vol] 0.97 10*3/uL 0.83-4.51 [facility] Work Phone: Basophil percentageon 2021 Basophils/100 WBC (Bld) 0.5 % 0-1 [facility] Work Phone: Chloride [Moles/Vol] 108 mmol/L 98-107 [facility] Work Phone: Eosinophils/100 WBC (Bld) 1.8 % 0-5 [facility] Work Phone: Glucose [Mass/Vol] 106 mg/dL 74-106 [facility] Work Phone: Comment on above: Fasting Glucose resu lt from 100 to 125 mg/dL suggests IMPAIRED HOMEOSTASIS per A.D.A. criteria. Neutrophils (Bld) [#/Vol] 3.0 10*3/uL 2.0-7.7 [facility] Work Phone: Neutrophils/100 WBC (Bld) 66.5 % 47-70 [facility] Work Phone: Potassium [Moles/Vol] 4.4 mmol/L 3.5-5.1 [facility] Work Phone: Sodium [Moles/Vol] 142 mmol/L 136-145 [facility] Work Phone: [phone] WBC (Bld) [#/Vol] 4.4 10*3/uL 4.4-11.0 [facility] Work Phone: Blood erythrocytes count (nu mber/volume)on 05-17-2022 RBC (Bld) [#/Vol] 4.27 10*6/uL 4.2-5.4 [facility]: [phone] Blood hemoglobin measurement (mass/volume)on 05-17-2022 Hemoglobin (Bld) [Mass/Vol] 13.0 g/dL 12.0-15.0 [facility] Work Phone: Blood lymphocytes/100 leukoc yteson 05-17-2022 Lymphocytes/100 WBC (Bld) 21.9 % 19-41 [facility] Work Phone: [phone] Blood monocytes/100 leukocyt eson 05-17-2022 Monocytes/100 WBC (Bld) 8.8 % 0-10 [facility] Work Phone: Blood platelet mean volumeon 05-17-2022 Platelet mean volume (Bld) [Entitic vol] 11.1 fL 6.2-12.0 [facility] Work Phone: Determination of erythrocyte mean corpuscular volume (MCV)on 05-17-2022 MCV (RBC) [Entitic vol] 97.0 fL 81-99 [facility] Work Phone: [phone] Hematocrit Auto (Bld) [Volum e fraction]on 05-17-2022 Hematocrit (Bld) [Volume fraction] 41.4 % 37-47 [facility] Work Phone: Laboratory - Chemistry and C hemistry - challengeon 05-17-2022 CO2 [Moles/Vol] 30.0 mmol/L 21.0-32.0 [facility] Work Phone: Free T4 [Mass/Vol] 1.36 ng/dL 0.76-1.46 [facility] Work Phone: [phone] Urea nitrogen/Creatinine [Mass ratio] 20.0 mg/mg 10-20 [facility] Work Phone: [phone] Laboratory - Hematology and Cell countson 05-17-2022 Erythrocyte distribution width (RBC) [Entitic vol] 47.6 fL 35.1-43.9 [facility] Work Phone: [phone] Erythrocyte distribution width (RBC) [Ratio] 13.4 % 11.6-14.6 [facility] Work Phone: [phone] Immature granulocytes/100 WBC (Bld) 0.500 % 0.0-0.9 [facility] Work Phone: [phone] Comment on above: IG% - Immature Granu locytes (promyelocytes, myelocytes and metamyelocytes) > 1% indicates that a LEFT SHIFT is Present. MCH (RBC) [Entitic mass] 30.4 pg 27.0-32.0 [facility] Work Phone: [phone] Nucleated RBC/100 WBC (Bld) [Ratio] 0 % 0-5 [facility] Work Phone: [phone] MCHC Auto (RBC) [Mass/Vol]on 05-17-2022 MCHC (RBC) [Mass/Vol] 31.4 g/dL 32-36 [facility] Work Phone: No Panel Informationon 05-17 Estimated GFR (MDRD) Amer 96 mL/min >60 [facility] Work Phone: [phone] Comment on above: GFR Calc Estimated GFR (MDRD) Non-Af Amer 80 mL/min >60 [facility] Work Phone: [phone] Comment on above: Non- GFR Calc Thyroid Stimulating Hormone (TSH) 2.46 uIU/mL 0.358-3.74 [facility] Work Phone: Platelets bldon 05-17-2022 Platelets (Bld) [#/Vol] 106 10*3/uL 150-450 [facility] Work Phone: Serum or plasma calcium unruly urement (mass/volume)on 05-17-2022 Calcium [Mass/Vol] 8.7 mg/dL 8.5-10.1 [facility] Work Phone: Serum or plasma creatinine m easurement (mass/volume)on 05-17-2022 Creatinine [Mass/Vol] 0.75 mg/dL 0.55-1.02 [facility] Work Phone: Comment on above: The validity of the calculated GFR & GFRAA in patients over 70 years has not been determined. Clinical correlation is essential. Serum or plasma urea nitroge n measurement (mass/volume)on 05-17-2022 Urea nitrogen [Mass/Vol] 15 mg/dL 7-18 [facility] Work Phone: Thin prep Papanicolaou smear with manual screeningon 05-17-2022 Thin prep Papanicolaou smear with manual screening 4 5-15 [facility] Work Phone: Culture, urineon 03-07-2022 Bacteria identified Cx Nom (U) Positive [facility] Work Phone: Basophil percentageon 2021 Basophil percentage 0 SEEN /hpf 0-5 [facility] Work Phone: Bilirubin Test strip Ql (U)o n 02-13-2022 Bilirubin Ql (U) Negative Negative [facility] Work Phone: Calcium oxalate crystals det ection in urine sediment by light microscopyon 02-13-2022 Calcium oxalate crystals LM Ql (Urine sed) 1+ /hpf [facility] Work Phone: Culture, urineon 02-13-2022 Bacteria identified Cx Nom (U) Enterococcus faecalis [facility] Work Phone: Ketones Test strip Ql (U)on 02-13-2022 Ketones Ql (U) 5 mg/dl Negative [facility] Work Phone: Mucus LM Ql (Urine sed)on Mucus Ql (Urine sed) 0 SEEN /hpf [facility] Work Phone: Nitrite Test strip Ql (U)on 02-13-2022 Nitrite Ql (U) Negative Negative [facility] Work Phone: Protein Test strip Ql (U)on 02-13-2022 Protein Ql (U) 100 mg/dl Negative [facility] Work Phone: Squamous epithelial cells de tection in urine sediment by light microscopyon 02-13-2022 Epithelial cells.squamous LM Ql (Urine sed) 0 SEEN /hpf 5-10 [facility] Work Phone: Urine blood detectionon RBC Ql (U) 250 /ul Negative [facility] Work Phone: [phone] RBC Ql (U) > 100 SEEN /hpf 0-5 [facility] Work Phone: [phone] Urine clarityon 02-13-2022 Clarity (U) Cloudy Clear [facility] Work Phone: Urine color determinationon 02-13-2022 Color (U) Brown Yellow [facility] Work Phone: Urine glucose detectionon Glucose Ql (U) Normal mg/dl Normal [facility] Work Phone: Urine leukocyte esterase det ection by dipstickon 02-13-2022 Leukocyte esterase Test strip Ql (U) 25 /ul Negative [facility] Work Phone: Urine pHon 02-13-2022 pH (U) 6.5 [pH] 5.0 - 8.0 [facility] Work Phone: Urine sediment bacteria coun t by microscopy (number/high power field)on 02-13-2022 Bacteria LM.HPF (Urine sed) [#/Area] 1 /[HPF] None Seen [facility] Work Phone: Urine specific gravity measu rementon 02-13-2022 Specific gravity (U) [Rel density] 1.020 1.002-1.030 [facility] Work Phone: Urobilinogen Auto test strip Ql (U)on 02-13-2022 Urobilinogen Ql (U) 1 mg/dl Normal [facility] Work Phone: Absolute lymphocyte counton 01-10-2022 Lymphocytes Auto (Unsp spec) [#/Vol] 0.99 10*3/uL 0.83-4.51 [facility] Work Phone: Basophil percentageon 2021 Basophils/100 WBC (Bld) 0.5 % 0-1 [facility] Work Phone: Bilirubin [Mass/Vol] 0.70 mg/dL 0.20-1.00 [facility] Work Phone: Comment on above: For patients on eltr ombopag therapy, use of Dimension Newell TBIL is not recommended. Chloride [Moles/Vol] 104 mmol/L 98-107 [facility] Work Phone: Eosinophils/100 WBC (Bld) 1.0 % 0-5 [facility] Work Phone: Glucose [Mass/Vol] 85 mg/dL 74-106 [facility] Work Phone: Neutrophils (Bld) [#/Vol] 2.5 10*3/uL 2.0-7.7 [facility] Work Phone: Neutrophils/100 WBC (Bld) 63.4 % 47-70 [facility] Work Phone: Potassium [Moles/Vol] 4.1 mmol/L 3.5-5.1 [facility] Work Phone: Protein [Mass/Vol] 7.1 g/dL 6.4-8.2 [facility] Work Phone: Sodium [Moles/Vol] 139 mmol/L 136-145 [facility] Work Phone: WBC (Bld) [#/Vol] 4.0 10*3/uL 4.4-11.0 [facility] Work Phone: Blood erythrocytes count (nu mber/volume)on 01-10-2022 RBC (Bld) [#/Vol] 4.51 10*6/uL 4.2-5.4 [facility] Work Phone: Blood hemoglobin measurement (mass/volume)on 01-10-2022 Hemoglobin (Bld) [Mass/Vol] 14.1 g/dL 12.0-15.0 [facility] Work Phone: Blood lymphocytes/100 leukoc yteson 01-10-2022 Lymphocytes/100 WBC (Bld) 25.0 % 19-41 [facility] Work Phone: [phone] Blood monocytes/100 leukocyt eson 01-10-2022 Monocytes/100 WBC (Bld) 9.6 % 0-10 [facility] Work Phone: Blood platelet mean volumeon 01-10-2022 Platelet mean volume (Bld) [Entitic vol] 11.1 fL 6.2-12.0 [facility] Work Phone: Determination of erythrocyte mean corpuscular volume (MCV)on 01-10-2022 MCV (RBC) [Entitic vol] 94.2 fL 81-99 [facility] Work Phone: Erythrocyte sedimentation ra marcia 01-10-2022 ESR (Bld) [Velocity] 7 mm/h 0-30 [facility] Work Phone: Hematocrit Auto (Bld) [Volum e fraction]on 01-10-2022 Hematocrit (Bld) [Volume fraction] 42.5 % 37-47 [facility] Work Phone: Laboratory - Chemistry and C hemistry - challengeon 01-10-2022 ALP [Catalytic activity/Vol] 70 U/L 45-117 [facility] Work Phone: ALT [Catalytic activity/Vol] 51 U/L 13-56 [facility] Work Phone: CO2 [Moles/Vol] 32.0 mmol/L 21.0-32.0 [facility] Work Phone: Globulin (S) [Mass/Vol] 3.7 g/dL 2.2-4.2 [facility] Work Phone: Urea nitrogen/Creatinine [Mass ratio] 25.0 mg/mg 10-20 [facility] Work Phone: [phone] Laboratory - Hematology and Cell countson 01-10-2022 Erythrocyte distribution width (RBC) [Entitic vol] 45.2 fL 35.1-43.9 [facility] Work Phone: [phone] Erythrocyte distribution width (RBC) [Ratio] 13.0 % 11.6-14.6 [facility] Work Phone: [phone] Immature granulocytes/100 WBC (Bld) 0.500 % 0.0-0.9 [facility] Work Phone: [phone] Comment on above: IG% - Immature Granu locytes (promyelocytes, myelocytes and metamyelocytes) > 1% indicates that a LEFT SHIFT is Present. MCH (RBC) [Entitic mass] 31.3 pg 27.0-32.0 [facility] Work Phone: [phone] Nucleated RBC/100 WBC (Bld) [Ratio] 0 % 0-5 [facility] Work Phone: [phone] MCHC Auto (RBC) [Mass/Vol]on 01-10-2022 MCHC (RBC) [Mass/Vol] 33.2 g/dL 32-36 [facility] Work Phone: [phone] No Panel Informationon 01-10 Estimated GFR (MDRD) Amer 116 mL/min >60 [facility] Work Phone: [phone] Comment on above: GFR Calc Estimated GFR (MDRD) Non-Af Amer 96 mL/min >60 [facility] Work Phone: [phone] Comment on above: Non- GFR Calc Platelets bldon 01-10-2022 Platelets (Bld) [#/Vol] 114 10*3/uL 150-450 [facility] Work Phone: [phone] Serum or plasma C reactive p rotein measurement (mass/volume)on 01-10-2022 CRP [Mass/Vol] mg/L 0.0-3.0 [facility] Work Phone: [phone] Comment on above: C-Reactive Protein ( CRP) provides useful information for thediagnosis, therapy and monitoring of inflammatory processesand associated diseases. For the evaluation of Relative Riskfor Cardiovascular Disease, a High Sensitivity CRP (HSCRP)should be ordered. Serum or plasma albumin unruly urement (mass/volume)on 01-10-2022 Albumin [Mass/Vol] 3.4 g/dL 3.2-5.0 [facility] Work Phone: Serum or plasma albumin/glob ulin mass ratioon 01-10-2022 Albumin/Globulin [Mass ratio] 0.9 {ratio} 0.9-2.4 [facility] Work Phone: [phone] Serum or plasma calcium unruly urement (mass/volume)on 01-10-2022 Calcium [Mass/Vol] 8.8 mg/dL 8.5-10.1 [facility] Work Phone: Serum or plasma creatinine m easurement (mass/volume)on 01-10-2022 Creatinine [Mass/Vol] 0.64 mg/dL 0.55-1.02 [facility] Work Phone: Comment on above: The validity of the calculated GFR & GFRAA in patients over 70 years has not been determined. Clinical correlation is essential. Serum or plasma urea nitroge n measurement (mass/volume)on 01-10-2022 Urea nitrogen [Mass/Vol] 16 mg/dL 7-18 [facility] Work Phone: Thin prep Papanicolaou smear with manual screeningon 01-10-2022 Thin prep Papanicolaou smear with manual screening 48 U/L 15-37 [facility] Work Phone: [phone] Thin prep Papanicolaou smear with manual screening 3 5-15 [facility] Work Phone: [phone] Lab Report: Prothrombin Time w/INRon 12-02-2017 Coagulation tissue factor induced in platelet poor plasma 18.7 s High 11.7-14.9 [facility] Work Phone: [phone] INR in blood by coagulation 1.6 {INR} Invalid Interpretation Code [facility] Work Phone: [phone] Lab Report: Prothrombin Time w/INRon 11-28-2017 Coagulation tissue factor induced in platelet poor plasma 40.9 s High 11.7-14.9 [facility] Work Phone: [phone] INR in blood by coagulation 4.5 {INR} Critically high [facility] Work Phone: [phone] Lab Report: Prothrombin Time w/INRon 11-25-2017 Coagulation tissue factor induced in platelet poor plasma 50.3 s High 11.7-14.9 [facility] Work Phone: [phone] INR in blood by coagulation 5.8 {INR} Critically high [facility] Work Phone: [phone] Lab Report: T4 Total, Thyrox inon 07-08-2017 T4 mass conc 12.3 ug/dL Invalid Interpretation Code 4.8-13.9 [facility] Work Phone: [phone] Lab Report: Thyroid Stim Hor pearl (TSH)on 07-08-2017 Thyrotropin Qn 1.13 u[iU]/mL Invalid Interpretation Code 0.358-3.74 [facility] Work Phone: [phone] Office Visit: [facility] 07-08-20 17 Documentation of current medications (procedure) Done Invalid Interpretation Code [facility] Work Phone: [phone] Protein mass conc Done [facility] Work Phone: [phone] Tobacco smoking status NMIS Tobacco smoking status [facility] Invalid Interpretation Code [facility] Work Phone: [phone] Tobacco smoking status [facility] Never smoker [facility] Work Phone: [phone] Tobacco use [facility] Never smoker Invalid Interpretation Code [facility] Work Phone: [phone] Lab Report: Basic Metabolic Profile (BMP)on 05-06-2017 Anion gap 6 mmol/L Invalid Interpretation Code 5-15 [facility] Work Phone: [phone] Anion gap molar conc 6 mmol/L 5-[address] [facility] Work Phone: [phone] BUN/Creatinine Ratio 19.0 RATIO Invalid Interpretation Code 10-20 [facility] Work Phone: [phone] Calcium 8.7 mg/dL Invalid Interpretation Code 8.5-10.1 [facility] Work Phone: [phone] Chloride 102 mmol/L Invalid Interpretation Code 98-107 [facility] Work Phone: [phone] CO2 31.0 mmol/L Invalid Interpretation Code 21.0-32.0 [facility] Work Phone: [phone] CO2 ppres (BldV) 31.0 mmol/L 21.0-32.0 [facility] Work Phone: [phone] Creatinine 0.89 mg/dL Invalid Interpretation Code 0.55-1.02 [facility] Work Phone: [phone] eGFR (non-black) 80 mL/min/{1.73_m2} Invalid Interpretation Code >60 [facility] Work Phone: [phone] eGFR (non-black) 66 mL/min/{1.73_m2} Invalid Interpretation Code >60 [facility] Work Phone: [phone] EST GFR - AA 80 mL/min >60 [facility] Work Phone: [phone] Glucose 107 mg/dL Invalid Interpretation Code 70-110 [facility] Work Phone: [phone] Glucose mass conc 107 mg/dL 70-110 [facility] Work Phone: [phone] Potassium 3.9 mmol/L Invalid Interpretation Code 3.5-5.1 [facility] Work Phone: [phone] Sodium 139 mmol/L Invalid Interpretation Code 136-145 [facility] Work Phone: [phone] Urea nitrogen 17 mg/dL Invalid Interpretation Code 7-18 [facility] Work Phone: [phone] Lab Report: Lipid Profileon 05-06-2017 Cholesterol 226 mg/dL High 200 [facility] Work Phone: [phone] HDL Cholesterol 65 mg/dL Invalid Interpretation Code [facility] Work Phone: [phone] LDL Cholesterol 141 mg/dL High 0-130 [facility] Work Phone: [phone] Triglyceride 100 mg/dL Invalid Interpretation Code [facility] Work Phone: [phone] very low density lipoproteins 20 mg/dL Invalid Interpretation Code 5-40 [facility] Work Phone: [phone] Lab Report: Liver Profileon 05-06-2017 Alanine aminotransferase (ALT) 27 U/L Invalid Interpretation Code 12-78 [facility] Work Phone: [phone] Albumin 3.6 g/dL Invalid Interpretation Code 3.4-5.0 [facility] Work Phone: [phone] Alkaline phosphatase (ALP) 114 U/L Invalid Interpretation Code 45-117 [facility] Work Phone: [phone] ALP enzyme act/vol (Bld) 114 U/L 45-117 [facility] Work Phone: [phone] Aspartate aminotransferase (AST) 25 U/L Invalid Interpretation Code 15-37 [facility] Work Phone: [phone] Bilirubin (direct) 0.13 mg/dL Invalid Interpretation Code 0.00-0.30 [facility] Work Phone: [phone] Bilirubin (total) 0.70 mg/dL Invalid Interpretation Code 0.20-1.00 [facility] Work Phone: [phone] Globulin 4.2 g/dL High 2.3-3.5 [facility] Work Phone: [phone] Globulin mass conc (S) 4.2 g/dL High 2.3-3.5 [facility] Work Phone: [phone] Protein 7.8 g/dL Invalid Interpretation Code 6.4-8.2 [facility] Work Phone: [phone] Lab Report: Lipid Profileon 01-07-2017 Cholesterol [Mass/Vol] 222 mg/dL High 200 [facility] Work Phone: [phone] Cholesterol in HDL [Mass/Vol] 71 mg/dL [facility] Work Phone: [phone] Cholesterol in LDL [Mass/Vol] 130 mg/dL 0-130 [facility] Work Phone: [phone] Lipoprotein.pre-beta [Mass/Vol] 21 mg/dL 5-40 [facility] Work Phone: [phone] Triglyceride [Mass/Vol] 105 mg/dL [facility] Work Phone: [phone] Lab Report: Liver Profileon 01-07-2017 Albumin [Mass/Vol] 3.8 g/dL 3.4-5.0 [facility] Work Phone: [phone] ALP (Bld) [Catalytic activity/Vol] 112 U/L 45-117 [facility] Work Phone: [phone] ALT [Catalytic activity/Vol] 25 U/L 12-78 [facility] Work Phone: [phone] AST [Catalytic activity/Vol] 22 U/L 15-37 [facility] Work Phone: [phone] Bilirubin [Mass/Vol] 0.60 mg/dL 0.20-1.[address] [facility] [address] [facility] [employer] Work Phone: [phone] Bilirubin.direct [Mass/Vol] 0.14 mg/dL 0.00-0.30 [facility] Work Phone: [phone] Globulin (S) [Mass/Vol] 4.1 g/dL High 2.3-3.5 [facility] [employer] Work Phone: [phone] Protein [Mass/Vol] 7.9 g/dL 6.4-8.2 [facility] Work Phone: [phone]) Lab Report: T4 Total, Thyrox inon 01-07-2017 T4 [Mass/Vol] 13.3 ug/dL Invalid Interpretation Code 4.8-13.9 [facility] [employer] Work Phone: [phone]) Lab Report: Thyroid Stim Hor pearl (TSH)on 01-07-2017 TSH Qn 1.41 u[iU]/mL 0.358-3.74 [facility] [employer] Work Phone: [phone] Office Visiton 01-07-2017 Dietary management education, guidance, and counseling (procedure) yes Invalid Interpretation Code [facility] Work Phone: [phone] Documentation of current medications (procedure) Done Invalid Interpretation Code [facility] Work Phone: [phone] Replaced Document: [facility] E CG Observationson 01-07-2017 EKG QRS axis 26 deg [facility] [employer] Work Phone: [phone] electrocardiogram interpretation Sinus Rhythm - Nonspecific T-abnormality. ABNORMAL Invalid Interpretation Code [facility] [employer] Work Phone: GE use only - for [employer] import when terms are not otherwise specified 442 ms Invalid Interpretation Code [facility] Phone: [phone] Interpretation Sinus Rhythm - Nonspecific T-abnormality. ABNORMAL [facility] Work Phone: [phone] P Prosper 32 deg [facility] Work Phone: [phone] P wave axis, electrocardiogram 32 deg Invalid Interpretation Code [facility] Work Phone: [phone] DE Interval 138 ms [facility] Work Phone: [phone] DE interval, electrocardiogram 138 ms Invalid Interpretation Code [facility] Work Phone: [phone] Pulse (Heart Rate) 74 /min Invalid Interpretation Code [facility] Phone: [phone] QRS axis, electrocardiogram 26 deg Invalid Interpretation Code [facility] Phone: [phone] QRS Duration 88 ms [facility] Phone: [phone] QRS duration, electrocardiogram 88 ms Invalid Interpretation Code [facility] Phone: [phone] QT Interval new path ms [facility] Work Phone: [phone] QT interval, electrocardiogram new path ms Invalid Interpretation Code [facility] Phone: [phone] QTc Evans 442 ms [facility] Work Phone: [phone] T Prosper 90 deg [facility] Phone: [phone] T wave axis, electrocardiogram 90 deg Invalid Interpretation Code [facility] Phone: [phone] Clinical Lists Update: [employer] 01-02-2017 Left ventricular Ejection fraction 60 % Invalid Interpretation Code [facility] Phone: [phone] Office Visit: [facility] 10-26-20 15 Tobacco smoking status NHIS Never smoker [facility] Phone: [phone] Tobacco use [facility] Never smoker Invalid Interpretation Code [facility] Phone: [phone] Office Visiton 09-15-2015 cardiac risk group B Invalid Interpretation Code [facility] Phone: [phone] General cardiovascular disease 10Y risk [#] [place]D'Agostm[place] 11 % Invalid Interpretation Code [facility] Work Phone: [phone] Clinical Lists Update: [employer] 09-02-2015 Anion gap [Moles/Vol] 8 mmol/L [facility] Work Phone: [phone] Chloride [Moles/Vol] 105 mmol/L [facility] Work Phone: [phone] CO2 (BldV) [Partial pressure] 28.0 mmol/L [facility] Work Phone: [phone] Creatinine [Mass/Vol] 1.04 mg/dL [facility] Work Phone: [phone] Erythrocytes (RBC) 4.51 10*6/uL Invalid Interpretation Code [facility] Work Phone: [phone] Hematocrit (Bld) [Volume fraction] 36.3 % Low [facility] Work Phone: [phone] Hematocrit (HCT) 36.3 % Low [facility] Work Phone: [phone] Hemoglobin (Bld) [Mass/Vol] 11.1 g/dL Low [facility] Work Phone: [phone]) MCH 24.6 pg Low [facility] Work Phone: [phone] MCH (RBC) [Entitic mass] 24.6 pg Low [facility] Work Phone: [phone] MCHC 30.6 g/dL Low [facility] Work Phone: [phone] MCHC (RBC) [Mass/Vol] 30.6 g/dL Low [facility] Work Phone: [phone]) MCV 80.5 fL Low [facility] Work Phone: [phone] MCV (RBC) [Entitic vol] 80.5 fL Low [facility] Work Phone: [phone] Platelets 185 10*3/mm3 Invalid Interpretation Code [facility] Work Phone: [phone]() Platelets (Bld) [#/Vol] 185 10*3/mm3 [facility] Work Phone: [phone] Potassium [Moles/Vol] 3.7 mmol/L [facility] Work Phone: [phone]) RBC (Bld) [#/Vol] 4.51 10*6/uL [facility] Work Phone: [phone] Sodium [Moles/Vol] 141 mmol/L [facility] Work Phone: [phone] Urea nitrogen [Mass/Vol] 21 mg/dL [facility] Work Phone: [phone] Urea nitrogen/Creatinine [Mass ratio] 20.2 mg/mg [facility] Work Phone: [phone] WBC (Bld) [#/Vol] 7.8 10*3/uL [facility] Work Phone: [phone] WBC (Leukocytes) 7.8 10*3/uL Invalid Interpretation Code [facility] Work Phone: [phone] Culture, urine Bacteria identified Cx Nom (U) Enterococcus faecalis [facility] Work Phone: Bacteria identified Cx Nom (U) Positive [facility] Work Phone: [phone] Bacteria identified Cx Nom (U) Presumptive E. coli [facility] Work Phone: [phone] Bacteria identified Cx Nom (U) Escherichia coli [facility] Work Phone: [phone] Panel Information Nasal Screen MRSA/MSSA [facility] Work Phone: Vital Signs Date Time Vital Sign Value Performing Clinician Nani trimble 05-25-2025 13:23-0400 Body height 152.4 cm Vinita Thakur MD Work Phone: [facility] 05-25-2025 13:23-0400 Body mass index (BMI) [Ratio] 22.89 kg/m2 Vinita Thakur MD Work Phone: [facility] 05-25-2025 13:23-0400 Body weight 53.16 kg Vinita Thakur MD Work Phone: [facility] 05-25-2025 13:23-0400 Diastolic blood pressure 82 mm[Hg] Vinita Thakur MD Work Phone: [facility] 05-25-2025 13:23-0400 Heart rate 103 /min Vinita Thakur MD Work Phone: [facility] 05-25-2025 13:23-0400 SaO2% (BldA) [Mass fraction] 97 % Vinita Thakur MD Work Phone: [facility] 05-25-2025 13:23-0400 Systolic blood pressure 130 mm[Hg] Vinita Thakur MD Work Phone: [facility] 2025 14:41-0400 Body height 152.[address] Rip De La Garza MD Work Phone: [facility] 2025 14:41-0400 Body mass index (BMI) [Ratio] 22.1 kg/m2 Dr. Rip De La Garza MD Work Phone: [facility] 2025 14:41-0400 Body weight 51.[address] Rip De La Garza MD Work Phone: [facility] 03-13-2025 14:29-0400 Body temperature 97.9 [degF] Dr. Rip De La Garza MD Work Phone: [facility] 03-13-2025 14:29-0400 Diastolic blood pressure 100 mm[Hg] Dr. Rip De La Garza MD Work Phone: [facility] 03-13-2025 14:29-0400 Heart rate 89 /min Dr. Rip De La Garza MD Work Phone: [facility] 03-13-2025 14:29-0400 Respiratory rate 18 /min Dr. Rip De La Garza MD Work Phone: [facility] 03-13-2025 14:29-0400 SaO2% (BldA) [Mass fraction] 96 % Dr. Rip De La Garza MD Work Phone: [facility] 03-13-2025 14:29-0400 Systolic blood pressure 150 mm[Hg] Dr. Rip De La Garza MD Work Phone: [facility] 03-13-2025 05:19-0400 Body mass index (BMI) [Ratio] 23.6 kg/m2 Dr. Rip De La Garza MD Work Phone: [facility] 03-13-2025 05:19-0400 Body weight 54.[address] Rip De La Garza MD Work Phone: [facility] 08-17-2024 13:46-0400 Body temperature 97.39 [degF] Pratima Halderman-Mckeon PT Work Phone: [facility] 08-17-2024 13:46-0400 Diastolic blood pressure 80 mm[Hg] Pratima Halderman-Mckeon PT Work Phone: [facility] 08-17-2024 13:46-0400 Heart rate 100 /min Pratima Halderman-Mckeon PT Work Phone: [facility] 08-17-2024 13:46-0400 Respiratory rate 16 /min Pratima Halderman-Mckeon PT Work Phone: [facility] 08-17-2024 13:46-0400 SaO2% (BldA) [Mass fraction] 97 % Pratima Halderman-Mckeon PT Work Phone: [facility] 08-17-2024 13:46-0400 Systolic blood pressure 120 mm[Hg] Pratima Halderman-Mckeon PT Work Phone: [facility] 08-11-2024 12:09-0400 Body temperature 97.3 [degF] Frances Hugo [employer] Work Phone: [facility] 08-11-2024 12:09-0400 Diastolic blood pressure 84 mm[Hg] Frances Hugo [employer] MANAGER Work Phone: [facility] 08-11-2024 12:09-0400 Heart rate 99 /min Frances Hugo [employer] MANAGER Work Phone: [facility] 08-11-2024 12:09-0400 Respiratory rate 18 /min Frances Hugo [employer] MANAGER Work Phone: [facility] 08-11-2024 12:09-0400 SaO2% (BldA) [Mass fraction] 99 % Frances Hugo [employer] MANAGER Work Phone: [facility] 08-11-2024 12:09-0400 Systolic blood pressure 128 mm[Hg] Frances Hugo [employer] MANAGER Work Phone: [facility] 08-04-2024 13:20-0400 Body temperature 98.01 [degF] Pratima Legerhafsacrystal-Mckeon PT Work Phone: [facility] 08-04-2024 13:20-0400 Diastolic blood pressure 76 mm[Hg] Pratima Halhafsacrystal-Mckeon PT Work Phone: [facility] 08-04-2024 13:20-0400 Heart rate 92 /min Pratima Arsenadrian-Mckeon PT Work Phone: [facility] 08-04-2024 13:20-0400 Respiratory rate 16 /min Pratima Arsenhafsacrystal-Mckeon PT Work Phone: [facility] 08-04-2024 13:20-0400 SaO2% (BldA) [Mass fraction] 99 % Pratima Tenorio-Mckeon PT Work Phone: [facility] 08-04-2024 13:20-0400 Systolic blood pressure 128 mm[Hg] Pratima Tenorio-Mckeon PT Work Phone: [facility] 07-29-2024 13:14-0400 Body temperature 97.39 [degF] Frances Hugo [employer] MA[employer]GER Work Phone: [facility] 07-29-2024 13:14-0400 Diastolic blood pressure 88 mm[Hg] Frances Hugo [employer] MANAGER Work Phone: [facility] 07-29-2024 13:14-0400 Heart rate 89 /min Frances Hugo [employer] MANAGER Work Phone: [facility] 07-29-2024 13:14-0400 Respiratory rate 18 /min Frances Hugo [employer] MANAGER Work Phone: [facility] 07-29-2024 13:14-0400 SaO2% (BldA) [Mass fraction] 98 % Frances Hugo [employer] MANAGER Work Phone: [facility] 07-29-2024 13:14-0400 Systolic blood pressure 128 mm[Hg] Frances Hugo [employer] MANAGER Work Phone: [facility] 07-23-2024 10:26-0400 Body temperature 97 [degF] Felicia Gerstenslager O T Work Phone: [facility] 07-23-2024 10:26-0400 Diastolic blood pressure 82 mm[Hg] Felicia Gerstenslager OT Work Phone: [facility] 07-23-2024 10:26-0400 Heart rate 90 /min Felicia Gerstenslager O T Work Phone: [facility] 07-23-2024 10:26-0400 SaO2% (BldA) [Mass fraction] 99 % Felicia Gerstenslager OT Work Phone: [facility] 07-23-2024 10:26-0400 Systolic blood pressure 128 mm[Hg] Felicia Gerstenslager OT Work Phone: [facility] 07-22-2024 14:18-0400 Diastolic blood pressure 72 mm[Hg] Chevy Rufener PT Work Phone: [facility] 07-22-2024 14:18-0400 Heart rate 99 /min Chevy Rufener PT Work Phone: [facility] 07-22-2024 14:18-0400 Respiratory rate 16 /min Chevy Rufener PT Work Phone: [facility] 07-22-2024 14:18-0400 SaO2% (BldA) [Mass fraction] 98 % Chevy Rufener PT Work Phone: [facility] 07-22-2024 14:18-0400 Systolic blood pressure 132 mm[Hg] Chevy Rufener PT Work Phone: [facility] 07-22-2024 14:02-0400 Body temperature 97.81 [degF] Chevy Rufener PT Work Phone: [facility] 07-17-2024 13:46-0400 Heart rate 100 /min Anna Clancey OTR/L Work Phone: [facility] 07-17-2024 13:46-0400 SaO2% (BldA) [Mass fraction] 98 % Anna Clancey OTR/L Work Phone: [facility] 07-17-2024 13:34-0400 Body temperature 98.71 [degF] Anna Clancey OTR/L Work Phone: [facility] 07-17-2024 13:34-0400 Diastolic blood pressure 78 mm[Hg] Anna Clancey OTR/L Work Phone: [facility] 07-17-2024 13:34-0400 Systolic blood pressure 116 mm[Hg] Anna Clancey OTR/L Work Phone: [facility] 07-16-2024 15:52-0400 Body temperature 96.91 [degF] Pratima Personman-Mckeon PT Work Phone: [facility] 07-16-2024 15:52-0400 Diastolic blood pressure 84 mm[Hg] Pratima Halderman-Mckeon PT Work Phone: [facility] 07-16-2024 15:52-0400 Heart rate 100 /min Pratima Halderman-Mckeon PT Work Phone: [facility] 07-16-2024 15:52-0400 Respiratory rate 16 /min Pratima Halderman-Mckeon PT Work Phone: [facility] 07-16-2024 15:52-0400 SaO2% (BldA) [Mass fraction] 99 % Pratima Legerderman-Mckeon PT Work Phone: [facility] 07-16-2024 15:52-0400 Systolic blood pressure 140 mm[Hg] Pratima Halderman-Mckeon PT Work Phone: [facility] 07-15-2024 10:29-0400 Body temperature 97 [degF] Pratima Veras PT Work Phone: [facility] 07-15-2024 10:29-0400 Diastolic blood pressure 70 mm[Hg] Pratima Veras PT Work Phone: [facility] 07-15-2024 10:29-0400 Heart rate 78 /min Pratima Veras PT Work Phone: [facility] 07-15-2024 10:29-0400 Respiratory rate 16 /min Pratima HalDomingo PT Work Phone: [facility] 07-15-2024 10:29-0400 SaO2% (BldA) [Mass fraction] 97 % Pratima Veras PT Work Phone: [facility] 07-15-2024 10:29-0400 Systolic blood pressure 132 mm[Hg] Pratima Veras PT Work Phone: [facility] 01-29-2024 12:27-0400 Body height 152.[address] Rip De La Garza Work Phone: [facility] 01-29-2024 12:27-0400 Body mass index (BMI) [Ratio] 22.8 kg/m2 Dr. Rip De La Garza Work Phone: [facility] 01-29-2024 12:27-0400 Body weight 53.[address] Rip De La Garza Work Phone: [facility] 01-29-2024 12:27-0400 Diastolic blood pressure 70 mm[Hg] Dr. Rip De La Garza Work Phone: [facility] 01-29-2024 12:27-0400 Heart rate 89 /min Dr. Rip De La Garza Work Phone: [facility] 01-29-2024 12:27-0400 Systolic blood pressure 128 mm[Hg] Dr. Rip De La Garza Work Phone: [facility] 12-20-2023 10:33-0500 Body mass index (BMI) [Ratio] 22.8 kg/m2 Dr. Rip De La Garza Work Phone: [facility] 12-20-2023 10:33-0500 Body temperature 98.6 [degF] Dr. Rip De La Garza Work Phone: [facility] 12-20-2023 10:33-0500 Body weight 53.[address] Rip De La Garza Work Phone: [facility] 12-20-2023 10:33-0500 Diastolic blood pressure 86 mm[Hg] Dr. Rip De La Garza Work Phone: [facility] 12-20-2023 10:33-0500 Heart rate 102 /min Dr. Rip De La Garza Work Phone: [facility] 12-20-2023 10:33-0500 Respiratory rate 18 /min Dr. Rip De La Garza Work Phone: [facility] 12-20-2023 10:33-0500 SaO2% (BldA) [Mass fraction] 97 % Dr. Rip De La Garza Work Phone: [facility] 12-20-2023 10:33-0500 Systolic blood pressure 134 mm[Hg] Dr. Rip De La Garza Work Phone: [facility] 12-18-2023 13:01-0500 Body mass index (BMI) [Ratio] 23.4 kg/m2 Dr. Rip De La Garza Work Phone: [facility] 12-18-2023 13:01-0500 Body weight 54.[address] Rip De La Garza Work Phone: [facility] 12-18-2023 13:01-0500 Diastolic blood pressure 91 mm[Hg] Dr. Rip De La Garza Work Phone: [facility] 12-18-2023 13:01-0500 Heart rate 105 /min Dr. Rip De La Garza Work Phone: [facility] 12-18-2023 13:01-0500 Respiratory rate 18 /min Dr. Rip De La Garza Work Phone: [facility] 12-18-2023 13:01-0500 SaO2% (BldA) [Mass fraction] 95 % Dr. Rip De La Garza Work Phone: [facility] 12-18-2023 13:01-0500 Systolic blood pressure 136 mm[Hg] Dr. Rip De La Garza Work Phone: [facility] 10-12-2023 20:37-0500 Body temperature 98 [degF] [facility] 10-12-2023 20:37-0500 Diastolic blood pressure 98 mm[Hg] [facility] 10-12-2023 20:37-0500 Heart rate 98 /min [facility] 10-12-2023 20:37-0500 Respiratory rate 16 /min [facility] 10-12-2023 20:37-0500 SaO2% (BldA) [Mass fraction] 98 % [facility] 10-12-2023 20:37-0500 Systolic blood pressure 144 mm[Hg] [facility] 10-12-2023 14:55-0500 Body height 152.[address] [facility] 10-12-2023 14:55-0500 Body mass index (BMI) [Ratio] 23.3 kg/m2 [facility] 10-12-2023 14:55-0500 Body weight 54.[address] [facility] 10-02-2022 13:42-0500 Body temperature 98.9 [degF] Dr. Rip De La Garza Work Phone: [facility] Work Phone: 10-02-2022 13:42-0500 Diastolic blood pressure 61 mm[Hg] Dr. Rip De L aGarza Work Phone: [facility] Work Phone: 10-02-2022 13:42-0500 Heart rate 84 /min Dr. Rip De La Garza Work Phone: [facility] Work Phone: 10-02-2022 13:42-0500 Respiratory rate 18 /min Dr. Rip De La Garza Work Phone: [facility] Work Phone: 10-02-2022 13:42-0500 SaO2% (BldA) [Mass fraction] 98 % Dr. Rip De La Garza Work Phone: [facility] Work Phone: 10-02-2022 13:42-0500 Systolic blood pressure 114 mm[Hg] Dr. Rip De La Garza Work Phone: [facility] Work Phone: 10-01-2022 18:10-0500 Body height 152.[address] Rip De La Garza Work Phone: [facility] Work Phone: 10-01-2022 18:10-0500 Body mass index (BMI) [Ratio] 21.4 kg/m2 Dr. Rip De La Garza Work Phone: [facility] Work Phone: 10-01-2022 18:10-0500 Body weight 49.[address] Rip De La Garza Work Phone: [facility] Work Phone: 10-01-2022 12:45-0500 Inhaled oxygen flow rate 4 L/min Dr. Rip De La Garza Work Phone: [facility] Work Phone: 08-01-2022 16:49-0400 Body temperature 98.3 [degF] Dr. Rip De La Garza Work Phone: [facility] Work Phone: 08-01-2022 16:49-0400 Diastolic blood pressure 76 mm[Hg] Dr. Rip De La Garza Work Phone: [facility] Work Phone: 08-01-2022 16:49-0400 Heart rate 81 /min Dr. Rip De La Garza Work Phone: [facility] Work Phone: 08-01-2022 16:49-0400 Respiratory rate 16 /min Dr. Rip De La Garza Work Phone: [facility] Work Phone: 08-01-2022 16:49-0400 SaO2% (BldA) [Mass fraction] 95 % Dr. Rip De La Garza Work Phone: [facility] Work Phone: 08-01-2022 16:49-0400 Systolic blood pressure 140 mm[Hg] Dr. Rip De La Garza Work Phone: [facility] Work Phone: 08-01-2022 12:27-0400 Body height 152.[address] Rip De La Garza Work Phone: [facility] Work Phone: 08-01-2022 12:27-0400 Body mass index (BMI) [Ratio] 19.8 kg/m2 Dr. Rip De La Garza Work Phone: [facility] Work Phone: 08-01-2022 12:27-0400 Body weight 46.[address] Rip De La Garza Work Phone: [facility] Work Phone: 07-12-2022 11:00-0400 Body height 154.[address] Rip De La Garza Work Phone: [facility] Work Phone: 07-12-2022 11:00-0400 Body mass index (BMI) [Ratio] 20.2 kg/m2 Dr. Rip De La Garza Work Phone: [facility] Work Phone: 07-12-2022 11:00-0400 Body temperature 97.2 [degF] Dr. Rip De La Garza Work Phone: [facility] Work Phone: 07-12-2022 11:00-0400 Body weight 48.[address] Rip De La Garza Work Phone: [facility] Work Phone: 07-12-2022 11:00-0400 Diastolic blood pressure 65 mm[Hg] Dr. Rip De La Garza Work Phone: [facility] Work Phone: 07-12-2022 11:00-0400 Heart rate 72 /min Dr. Rip De La Garza Work Phone: [facility] Work Phone: 07-12-2022 11:00-0400 Respiratory rate 16 /min Dr. Rip De La Garza Work Phone: [facility] Work Phone: 07-12-2022 11:00-0400 SaO2% (BldA) [Mass fraction] 96 % Dr. Rip De La Garza Work Phone: [facility] Work Phone: 07-12-2022 11:00-0400 Systolic blood pressure 129 mm[Hg] Dr. Rip De La Garza Work Phone: [facility] Work Phone: 05-17-2022 08:32-0400 Body height 154.[address] Rip De La Garza Work Phone: [facility] Work Phone: 05-17-2022 08:32-0400 Body mass index (BMI) [Ratio] 21.3 kg/m2 Dr. Rip De La Garza Work Phone: [facility] Work Phone: 05-17-2022 08:32-0400 Body weight 51.[address] Rip De La Garza Work Phone: [facility] Work Phone: 05-17-2022 08:32-0400 Diastolic blood pressure 76 mm[Hg] Dr. Rip De La Garza Work Phone: [facility] Work Phone: 05-17-2022 08:32-0400 Heart rate 69 /min Dr. Rip De La Garza Work Phone: [facility] Work Phone: 05-17-2022 08:32-0400 Respiratory rate 18 /min Dr. Rip De La Garza Work Phone: [facility] Work Phone: 05-17-2022 08:32-0400 SaO2% (BldA) [Mass fraction] 95 % Dr. Rip De La Garza Work Phone: [facility] Work Phone: 05-17-2022 08:32-0400 Systolic blood pressure 134 mm[Hg] Dr. Rip De La Garza Work Phone: [facility] Work Phone: 05-02-2022 13:57-0400 Body height 152.4 cm Snehal Cross MD Work Phone: [facility] 05-02-2022 13:57-0400 Body weight 51.53 kg Snehal Cross MD Work Phone: [facility] 05-02-2022 13:57-0400 Diastolic blood pressure 63 mm[Hg] Snehal Cross MD Work Phone: [facility] 05-02-2022 13:57-0400 Heart rate 69 /min Snehal Cross MD Work Phone: [facility] 05-02-2022 13:57-0400 SaO2% (BldA) [Mass fraction] 98 % Snehal Cross MD Work Phone: [facility] 05-02-2022 13:57-0400 Systolic blood pressure 130 mm[Hg] Snehal Cross MD Work Phone: [facility] 03-21-2022 10:48-0400 Body height 154.[address] [facility] Work Phone: 07-08-2017 10:23-0400 BMI (Body Mass Index) 24.72 kg/m2 Lauryn Thompson RN [facility] Work Phone: 07-08-2017 10:23-0400 BP Diastolic 68 mm[Hg] Lauryn Thompson RN [facility] Work Phone: 07-08-2017 10:23-0400 BP Systolic 138 mm[Hg] Lauryn Thompson RN [facility] Work Phone: 07-08-2017 10:0400 Height 156.21 cm Lauryn Thompson RN [facility] Work Phone: 07-08-2017 10:-0400 Pulse (Heart Rate) 80 /min Lauryn Thompson RN [facility] Work Phone: 07-08-2017 10:-0400 Respiratory Rate 18 /min Lauryn Thompson RN [facility] Work Phone: 07-08-2017 10:0400 Weight 60.33 kg Lauryn Thompson RN [facility] Work Phone: 01-07-2017 13:21-0500 Heart rate 74 /min Jack Duran MD [facility] Work Phone: 01-07-2017 13:01-0500 BMI (Body Mass Index) 25.65 kg/m2 Jack Duran MD [facility] Work Phone: 01-07-2017 13:01-0500 Body weight 62.6 kg Jack Duran MD [facility] Work Phone: 01-07-2017 13:01-0500 BP Diastolic 72 mm[Hg] Jack Duran MD [facility] Work Phone: 01-07-2017 13:01-0500 BP Systolic 128 mm[Hg] Jack Duran MD [facility] Work Phone: 01-07-2017 13:01-0500 BSA (Body Surface Area) 1.62 m2 Jack Duran MD [facility] Work Phone: 01-07-2017 13:01-0500 Pulse (Heart Rate) 72 /min [facility] Work Phone: 01-07-2017 13:01-0500 Respiratory Rate 18 /min Jack Duran MD [facility] Work Phone: 01-07-2017 13:01-0500 Weight 62.6 kg Jack Duran MD [facility] Work Phone: 09-15-2015 13:36-0500 Height 156.21 cm Jack Duran MD [facility] Work Phone: Encounters Encounter Date Encounter Type Care Provider Facility Start: 05-25-2025 End: 05-25-2025 Office outpatient visit 25 minutes Vinita Thakur MD Work Phone: [facility] Comment on above: Typical atrial flutt er (HCC) (Primary Dx); Longstanding persistent atrial fibrillation (HCC); Congenital heart disease; Essential hypertension; Paraspinal hematoma; CLARISSE on CPAP Start: 05-25-2025 End: 05-25-2025 ambulatory [facility] Start: 05-19-2025 End: 05-19-[address] Rip De La Garza MD Work Phone: -Physical Therapy Start: 05-19-2025 End: 05-19-[address] Juan Manuel Martinez MD -Physical Therapy Work Phone: Start: 2025 End: [address] Juan Manuel Martinez MD -[facility] Work Phone: Start: 2025 End: 2025 ambulatory Juan Manuel Martinez Facility:[facility] Start: 03-13-2025 Non-patient / Non-visit Dr. Anthony Owen MD -[facility] Work Phone: Start: 03-13-2025 End: 03-13-2025 ambulatory Rip De La Garza Facility:[facility] Start: 03-13-2025 End: 03-13-2025 Non-patient / Non-visit Dr. Cory Montes MD -[facility] Work Phone: Start: 03-12-2025 Non-patient / Non-visit Dr. Quincy Martin MD -[facility] Start: 03-12-2025 End: 03-13-2025 ambulatory Quincy Martin Facility:[facility] Start: 03-12-2025 End: 03-13-2025 Evaluation and management of inpatient Dr. Anthony Owen MD -Progressive Care Unit Work Phone: Start: 02-03-2025 ambulatory Rip De La Garza Facility:[facility] Start: 01-26-2025 End: 01-26-[address] Rip De La Garza MD Work Phone: [facility] Work Phone: Start: 01-26-2025 End: 01-26-[address] Rip De La Garza MD -[facility] Work Phone: Start: 01-26-2025 End: 01-26-2025 ambulatory Rip De La Garza Facility:[facility] Start: 01-05-2025 End: 01-05-2025 ambulatory [facility] Start: 10-16-2024 End: 10-16-2024 ambulatory Abdulaziz Banegas Facility:[facility] Start: 10-16-2024 End: 10-16-2024 Discharged Recurring Abdulaziz Banegas MD -Physical Therapy Work Phone: Start: 09-15-2024 End: 09-15-2024 ambulatory Rip De La Garza Facility:[facility] Start: 09-08-2024 ambulatory Rip De La Garza Facility:[facility] Start: 09-04-2024 ambulatory Rip De La Garza Facility:[facility] Start: 09-04-2024 End: 09-04-2024 ambulatory Rip De La Garza Facility:[facility] Start: 08-28-2024 End: 08-28-2024 ambulatory Rip De La Garza Facility:[facility] Start: 08-18-2024 End: 08-18-2024 ambulatory Radha Rodriguez Facility:[facility] Start: 08-17-2024 End: 08-17-2024 Home visit Pratima Veras PT Work Phone: [facility] Comment on above: PT AGENCY DC W VISIT Start: 08-12-2024 End: 08-12-2024 Home visit Natalie Cantu RECRUITMENT ASSISTANT Work Phone: [facility] Comment on above: RECRUITMENT ASSISTANT DISC DC W VISIT Start: 08-11-2024 End: 08-11-2024 Home visit Frances Vann AIRPORT OPERATIONS DUTY MANAGER Work Phone: [facility] Comment on above: AIRPORT OPERATIONS DUTY MANAGER ROUTINE Start: 08-05-2024 End: 08-05-2024 Home visit Natalie Cantu RECRUITMENT ASSISTANT Work Phone: [facility] Comment on above: RECRUITMENT ASSISTANT ROUTINE Start: 08-04-2024 End: 08-04-2024 Home visit Pratima Veras PT Work Phone: [facility] Comment on above: PT REASSESSMENT Start: 07-31-2024 End: 07-31-2024 [facility] Facility:[facility] Start: 07-29-2024 End: 07-29-2024 Home visit Frances Vann AIRPORT OPERATIONS DUTY MANAGER Work Phone: [facility] Comment on above: AIRPORT OPERATIONS DUTY MANAGER ROUTINE RECRUITMENT ASSISTANT UNMADE VISIT Start: 07-27-2024 End: 07-27-2024 Telephone encounter Frances Vann AIRPORT OPERATIONS DUTY MANAGER Work Phone: [facility] Comment on above: Home Care (Unmade PT visit) Start: 07-27-2024 End: 07-27-2024 Home visit Frances Vann AIRPORT OPERATIONS DUTY MANAGER Work Phone: [facility] Comment on above: AIRPORT OPERATIONS DUTY MANAGER UNMADE VISIT Start: 07-23-2024 End: 07-23-2024 Home visit Rachel Baker RN Work Phone: [facility] Comment on above: CARE COORDINATION Start: 07-23-2024 End: 07-23-2024 Home visit Felicia Caicedo OT Work Phone: [facility] Comment on above: OT EVAL Start: 07-22-2024 End: 07-22-2024 Home visit Chevy Hernandez PT Work Phone: [facility] Comment on above: PT ROMA Start: 07-21-2024 End: 07-21-2024 Telephone encounter Erin Chisholm Work Phone: [facility] Comment on above: Home Care (Confirmat ion Call ) Home Care (Resumptio n of Care) Start: 07-21-2024 End: 07-21-2024 Home visit Pratima Veras PT Work Phone: [facility] Comment on above: PT TRANSFER PT UNMADE VISIT Start: 07-19-2024 ambulatory Mady Cristel Koram Facility :[facility] Start: 07-19-2024 End: 07-21-2024 Evaluation and management of inpatient Mady Cristel Koram Facility:[facility] Start: 07-17-2024 End: 07-17-2024 Home visit Anna Alexandre OTR/L Work Phone: [facility] Comment on above: OT EVAL Start: 07-16-2024 End: 07-16-2024 Home visit Rachel Baker RN Work Phone: [facility] Comment on above: CARE COORDINATION PT ROUTINE Start: 07-15-2024 End: 07-15-2024 Home visit Pratima Veras PT Work Phone: [facility] Comment on above: PT SOC Start: 07-14-2024 End: 07-14-2024 Telephone encounter Nasrin Lezama LPN Work Phone: [facility] Comment on above: Home Care (Confirmat ion Call ) Start: 07-13-2024 End: 07-13-2024 Telephone encounter Flavia Dawson GEOSPATIAL ENGINEER [facility] Comment on above: Home Care (MD ELOY MURPHY) Start: 07-09-2024 Evaluation and management of inpatient HAILE GONZALEZ Facility:[id number] Start: 07-08-2024 End: 07-08-2024 Emergency department patient visit Rip Empire Facility:[facility] Start: 05-26-2024 End: 05-26-2024 ambulatory [facility] Facility:[facility] Start: 02-07-2024 End: 02-07-[address] Rip De La Garza Work Phone: [facility] Work Phone: Start: 02-07-2024 End: 02-07-[address] Rip De La Garza Work Phone: [facility]-Pulmonary Services/Neurology Work Phone: Start: 01-29-2024 End: 01-29-[address] Rip De La Garza Work Phone: [facility] Work Phone: Start: 12-20-2023 End: 12-20-[address] Rip De La Garza Work Phone: [facility]-Pulmonary Medicine [facility] Work Phone: Start: 12-18-2023 End: 12-18-[address] Rip De La Garza Work Phone: [facility] Work Phone: Start: 12-03-2023 End: 12-03-[address] Rip De La Garza Work Phone: [facility]-Radiology, [place] Work Phone: Start: 10-12-2023 End: 10-12-2023 Emergency department patient visit [facility]-Emergency Department Work Phone: Start: 06-14-2023 End: 06-14-2023 ambulatory [facility] Work Phone: Start: 06-14-2023 End: 06-14-2023 Patient encounter procedure [facility]-Laboratory, [place] Work Phone: Start: 04-11-2023 End: 04-11-2023 Patient encounter procedure [facility] Work Phone: Start: 10-01-2022 End: 10-02-2022 Evaluation and management of inpatient Dr. Rip De La Garza Work Phone: [facility]-Medical Surgical 3 Start: 10-01-2022 End: 10-02-[address] Rip De La Garza Work Phone: [facility] Work Phone: Start: 09-20-2022 End: 09-20-[address] Rip De La Garza Work Phone: [facility] Work Phone: Start: 09-20-2022 End: 09-20-[address] Rip De La Garza Work Phone: [facility]-Laboratory, Spec[place] Start: 09-13-2022 End: 09-13-[address] Rip De La Garza Work Phone: [facility] Work Phone: Start: 09-13-2022 End: 09-13-[address] Rip De La Garza Work Phone: [facility]-Cat Scan, [facility] Start: 08-06-2022 End: 08-06-[address] Rip De La Garza Work Phone: [facility] Work Phone: Start: 08-06-2022 End: 08-06-[address] Rip De La Garza Work Phone: [facility]-Radiology, [facility] Start: 08-01-2022 End: 08-01-2022 Admission to same day surgery center Dr. Rip De La Garza Work Phone: [facility]-Surgical Day Care Start: 08-01-2022 End: 08-01-[address] Rip De La Garza Work Phone: [facility] Work Phone: Start: 07-25-2022 End: 07-25-[address] Rip De La Garza Work Phone: [facility] Work Phone: Start: 07-25-2022 End: 07-25-[address] Rip De La Garza Work Phone: [facility] Start: 07-12-2022 End: 07-12-[address] Rip De La Garza Work Phone: [facility] Work Phone: Start: 07-12-2022 End: 07-12-[address] Rip De La Garza Work Phone: [facility]-Pulmonary Medicine [facility] Start: 07-10-2022 End: 07-10-[address] Rip De La Garza Work Phone: [facility] Work Phone: Start: 07-10-2022 End: 07-10-[address] Rip De La Garza Work Phone: [facility]-Laboratory Start: 07-06-2022 End: 07-06-[address] Rip De La Garza Work Phone: [facility] Work Phone: Start: 07-06-2022 End: 07-06-[address] Rip De La Garza Work Phone: [facility] Start: 06-29-2022 Non-patient / Non-visit Dr. Rip De La Garza Work Phone: [facility] Start: 06-29-2022 End: 06-29-[address] Rip De La Garza Work Phone: [facility] Work Phone: Start: 06-29-2022 End: 06-29-[address] Rip De La Garza Work Phone: [facility] Start: 06-01-2022 End: 06-01-[address] Rip De La Garza Work Phone: [facility] Start: 05-17-2022 End: 05-17-[address] Rip De La Garza Work Phone: [facility] Start: 05-02-2022 End: 05-02-2022 Patient encounter procedure Snehal Cross MD Work Phone: Neurology Comment on above: Essential tremor (Pr imary Dx) Start: 04-19-2022 End: 04-19-[address] Rip De La Garza Work Phone: [facility]-Laboratory, Specimen Start: 04-03-2022 Telephone encounter Snehal hermosillo MD Work Phone: Neurology Comment on above: Patient Update (Expo sure to Covid ) Start: 03-30-2022 Telephone encounter Snehal hermosillo MD Work Phone: Neurology Comment on above: Referral Request ([facility] for Dr. Cross) Start: 03-21-2022 End: 03-21-2022 Patient encounter procedure [facility]-Outpatient Bone Densitometry Start: 03-07-2022 End: 03-07-2022 Patient encounter procedure [facility]-Laboratory, Specimen Start: 02-13-2022 End: 02-13-2022 Patient encounter procedure [facility]-Laboratory, [place] Start: 02-12-2022 End: 02-12-2022 Patient encounter procedure [facility]-Cat Scan, [facility] Start: 01-10-2022 End: 01-10-2022 Patient encounter procedure [facility]-Laboratory Procedures Date Procedure Procedure Detail Performing Clinician Start: 05-25-2025 Ecg routine ecg w/le ast 12 lds w/i&r Vinita Thakur MD Work Phone: Start: 2025 X-ray of cervical spine Dr. Rip De La Garza MD Work Phone: Start: [address] Rip De La Garza MD Work Phone: Start: 03-13-[address] Rip De La Garza MD Work Phone: Start: 03-13-2025 Serum inorganic phos phate measurement Dr. Rip De La Garza MD Work Phone: Start: 01-26-2025 MRI of cervical spine Evon De La Garza MD Work Phone: Start: 01-26-2025 MRI of thoracic spine Evon De La Garza MD Work Phone: Start: 07-09-2024 Antibody screen HORACIO Barnard GONZALEZ Comment on above: Order Comment: Speci men Type: BLOOD SPECIMEN Ordering Facility: [facility] Address: [facility] [place] [address] Performed By: #### 3 [id number], [id number], [id number] #### [facility] CLIA [id number] [address] [place] [address] OF JOHN Start: 12-03-2023 X-ray of cervical spine Dr. Rip De La Garza Work Phone: Start: 10-12-2023 CT of head without contrast Start: 04-11-2023 MRI of lumbar spine Start: 10-01-2022 Radiologic examinati on of knee Dr. Rip De La Garza Work Phone: Start: 10-01-2022 Total Knee Replaceme nt Robotic Arm Alessia (Right) Dr. Rip De La Garza Work Phone: Start: 09-13-2022 MRI of lower extremity Dr. Rip De La Garza Work Phone: Start: 08-06-2022 Diagnostic radiograp hy of abdomen Dr. Rip De La Garza Work Phone: Start: 08-01-2022 Extracorporeal shock wave lith[address] Rip De La Garza Work Phone: Start: 07-25-2022 Computed tomography of abdomen and pelvis with contrast Dr. Rip De La Garza Work Phone: Start: 07-06-2022 Plain chest X-ray Dr. Bertrand De La Garza Work Phone: Start: 06-29-[address] Alexis De La Garza Work Phone: Start: 05-02-2022 Adult depression scr eening assessment Snehal Cross MD Work Phone: Start: 03-21-2022 Dual energy X-ray absorptiometry Start: 03-07-2022 Urine culture Start: 02-13-2022 Bacteria identified in Urine by Culture Start: 02-13-2022 Urine culture Start: 02-12-2022 CT of face Start: 07-08-2017 End: 07-08-2017 Follow Up Appt 6 months Adrianna wong PA-C Work Phone: Start: 07-08-2017 End: 07-08-2017 PFM Adrianna Box PA-C Work Phone: Start: 07-08-2017 End: 07-08-2017 Thyroid stimulating hormone (TSH) Adrianna Box PA-C Work Phone: Start: 07-08-2017 End: 07-08-2017 Thyroxine (T4) Adrianna Box PA-C Work Phone: Start: 04-11-2017 Lipid 1996 panel - S rogelio or Plasma Vinita Thakur MD Work Phone: Start: 04-11-2017 End: 05-06-2017 *Hepatic Function Panel Jack Duran MD Start: 04-11-2017 End: 05-06-2017 Lipid panel [AGGREGATE] Jack Duran MD Start: 01-07-2017 End: 01-07-2017 Dietary management education, guidance, and counseling Jack Duran MD Start: 01-07-2017 End: 01-07-2017 Documentation of current medications Jack Duran MD Start: 01-07-2017 End: 01-07-2017 *Hepatic Function Panel Jack Duran MD Start: 01-07-2017 End: 01-07-2017 Electrocardiogram, complete Jack stover MD Start: 01-07-2017 End: 01-07-2017 Follow Up Appt 6 months Jack Duran MD Start: 01-07-2017 End: 01-07-2017 Lipid panel [AGGREGATE] Jack Duran MD Start: 01-07-2017 End: 01-07-2017 MMM Jack Duran MD Start: 01-07-2017 End: 06-26-2017 Nuclear stress test -exercise Jack Duran MD Start: 01-07-2017 End: 01-07-2017 Thyroid stimulating hormone (TSH) Jack uDran MD Start: 01-07-2017 End: 01-07-2017 Thyroxine (T4) Jack Duran MD Start: 08-02-2016 End: 06-26-2017 *Hepatic Function Panel Yahir Jeanine Russo ENDOSCOPY TECHNICAN -C Start: 08-02-2016 End: 08-02-2016 Follow Up Appt 6 months Yahir Jeanine Russo ENDOSCOPY TECHNICAN -C Start: 08-02-2016 End: 08-02-2016 PFM Yahir A Russo ENDOSCOPY TECHNICAN-C Start: 08-02-2016 End: 06-26-2017 Pulmonary Function Test - complete Yahir Solorzano Russo ENDOSCOPY TECHNICAN-C Start: 08-02-2016 End: 06-26-2017 Thyroid stimulating hormone (TSH) Yahir A Russo ENDOSCOPY TECHNICAN-C Start: 08-02-2016 End: 06-26-2017 Thyroxine (T4) Yahir Solorzano Russo ENDOSCOPY TECHNICAN-C Start: 05-01-2016 End: 05-01-2016 Follow Up Appt 3 months Adrianna wong PA-C Work Phone: Start: 05-01-2016 End: 05-01-2016 Follow Up Appt 6 months Adrianna wong PA-C Work Phone: Start: 05-01-2016 End: 05-01-2016 MMM Adrianna Box PA-C Work Phone: Start: 05-01-2016 End: 05-01-2016 PFM Adrianna Box PA-C Work Phone: Start: 04-19-2016 End: 06-09-2016 Electrocardiogram, complete Jack stovre MD Start: 10-26-2015 End: 10-26-2015 Follow Up Appt Other Adrianna mcdonald PA-C Work Phone: Start: 09-15-2015 End: 09-16-2015 Documentation of current medications Jack Duran MD Start: 09-15-2015 End: 09-15-2015 Follow Up Appt 6 weeks Jack Duran MD Start: 09-15-2015 End: 09-15-2015 MMM Jack Duran MD Start: 09-15-2015 End: 09-22-2015 Nuclear stress test -Lexiscan Jack Duran MD Bacteria identified in Urine by Culture Dr. Rip De La Garza Work Phone: Nasal Screen MRSA/MSSA Dr. Bertrand De La Garza Work Phone: Urine culture Dr. Rip De La Garza Work Phone: Plan of Treatment Date Care Activity Detail Author Start: 12-07-2029 DTaP/Tdap/Td Vaccine s (2 - Td or Tdap) DTaP/Tdap/Td Vaccines (2 - Td or Tdap) [facility] Start: 12-07-2029 Urine microalbumin profile DTa P,Tdap,Td Vaccine (2 - Td or Tdap) [facility] Start: 07-12-2027 Diabetes Screening Diabetes Screenin g [facility] Start: 08-04-2025 BP Controlled (<130/80) BP Con trolled (<130/80) [facility] Start: 07-17-2025 BP Controlled (<130/80) BP Con trolled (<130/80) [facility] Start: 07-12-2025 Influenza vaccination Influenza Vacc ine (#1) [facility] Start: 03-13-2025 Patient discharge [facility] Start: 03-12-2025 Ambulation without limitation [facility] Start: 03-12-2025 Assessment of risk o f venous thromboembolism [facility] Start: 03-12-2025 Catheterization of vein [facility] Start: 03-12-2025 Insertion of cathete r into peripheral vein [facility] Start: 03-12-2025 Measuring intake and output [facility] Start: 03-12-2025 Oxygen therapy [facility] Start: 03-12-2025 Providing care accor ding to standard [facility] [facility] Start: 03-12-2025 Referral to cryptographic center specialist [facility] Start: 03-12-2025 Referral to occupati onal therapist [facility] Start: 03-12-2025 Referral to service [facility] Start: 03-12-2025 Admission procedure [facility] Start: 03-12-2025 End: 03-12-2025 [facility] Start: 11-11-2024 Medicare Advantage A nnual Wellness Visit Medicare Advantage Annual Wellness Visit [facility] Start: 07-22-2024 End: 07-22-2024 Home visit 07/22/2024 2:00 PM EDT Home Care Visit [facility] [address], [place] [id number] Chevy Hernandez, PT [address] [place] [address] PT ROMA [facility] Comment on above: PT ROMA Start: 07-12-2024 Covid-19 Vaccine ( season) Covid-19 Vaccine ( season) [facility] Start: 07-12-2024 Covid-19 Vaccine ( season) Covid-19 Vaccine ( season) [facility] Start: 07-12-2024 COVID-19 Vaccine ( season) COVID-19 Vaccine ( season) [facility] Start: 07-12-2024 Influenza vaccination Influenza Vacc ine (#1) [facility] Start: 12-20-2023 Patient referral [facility] Work Phone: Start: 11-11-2023 Advance Directive Discussion Advance Directive Discussion [facility] Start: 10-12-2023 [facility] Start: 05-02-2023 Adult depression scr eening assessment DEPRESSION SCREENING [facility] Start: 10-01-2022 Following clinical p athway protocol [facility] Work Phone: Start: 10-01-2022 Admission procedure [facility] Work Phone: Start: 10-01-2022 Application of ice c ollar, cap or bag [facility] Work Phone: Start: 10-01-2022 Exercises [facility] Work Phone: Start: 10-01-2022 Incentive spirometry [facility] Work Phone: Start: 10-01-2022 Neurovascular assessment [facility] Work Phone: Start: 10-01-2022 End: 10-02-2022 Patient discharge [facility] Work Phone: Start: 10-01-2022 Patient education [facility] Work Phone: Start: 10-01-2022 Provision of activit y privileges [facility] Work Phone: Start: 10-01-2022 Referral to service [facility] Work Phone: Start: 10-01-2022 Vital signs measurements [facility] Work Phone: Start: 10-01-2022 Wound care [facility] Work Phone: Start: 10-01-2022 [facility] Work Phone: Start: 08-01-2022 Anes lithotrp xtrcor p shock wave w/o water bath ANESTH KIDNEY STONE DESTRUCT [facility] Work Phone: Start: 08-01-2022 Patient discharge [facility] Work Phone: Start: 08-01-2022 Ambulation without limitation [facility] Work Phone: Start: 08-01-2022 Medication education [facility] Work Phone: Start: 08-01-2022 Taking patient vital signs [facility] Work Phone: Start: 08-01-2022 [facility] Work Phone: Start: 07-12-2022 Influenza vaccination INFLUENZ A (Season Ended) [facility] Start: 04-11-2022 Lipid panel Lipid Panel [facility] Start: 01-12-2022 COVID-19 VACCINE (4 - Booster for Pfizer series) COVID-19 VACCINE (4 - Booster for Pfizer series) [facility] Start: 11-11-2021 ADVANCE DIRECTIVE DISCUSSION ADVANCE DIRECTIVE DISCUSSION [facility] Start: 2020 RSV Immunization for Adults (1 - 1-dose 75+ series) RSV Immunization for Adults (1 - 1-dose 75+ series) [facility] Start: 2020 RSV Vaccine (1 - 1-d ose 75+ series) RSV Vaccine (1 - 1-dose 75+ series) [facility] Start: 02-24-2018 End: 02-24-2018 Appointment [facility] Work Phone: Start: 07-08-2017 End: 07-08-2017 Appointment Appointment [facility] Work Phone: Start: 07-08-2017 End: 07-08-2017 Follow Up Appt 6 months Follow Up Appt 6 months [facility] [employer] Work Phone: Start: 07-08-2017 End: 07-08-2017 PFM PFM [facility] [employer] Work Phone: Start: 07-08-2017 End: 07-08-2017 Thyroid stimulating hormone (TSH) *TSH [facility] [employer] Work Phone: Start: 07-08-2017 End: 07-08-2017 Thyroxine (T4) *T4 (Total) [facility] [employer] Work Phone: Start: 04-11-2017 End: 05-06-2017 *Hepatic Function Panel *Hepatic Function Panel [facility] [employer] Work Phone: Start: 04-11-2017 End: 05-06-2017 Lipid panel [AGGREGATE] *Lipid Profile CC PCP [facility] Work Phone: Start: 01-07-2017 End: 01-07-2017 *Hepatic Function Panel *Hepatic Function Panel [employer] Work Phone: Start: 01-07-2017 End: 01-07-2017 Electrocardiogram, complete EKG (In office) [employer] Work Phone: Start: 01-07-2017 End: 01-07-2017 Follow Up Appt 6 months Follow Up Appt 6 months [employer] Work Phone: Start: 01-07-2017 End: 01-07-2017 Lipid panel [AGGREGATE] *Lipid Profile CC PCP [employer] Work Phone: Start: 01-07-2017 End: 01-07-2017 MMM MMM [employer] Work Phone: Start: 01-07-2017 End: 01-07-2017 Nuclear stress test -exercise Nuclear stress test -exercise [employer] Work Phone: Start: 01-07-2017 End: 01-07-2017 Thyroid stimulating hormone (TSH) *TSH [employer] Work Phone: Start: 01-07-2017 End: 01-07-2017 Thyroxine (T4) *T4 (Total) [employer] Work Phone: Start: 08-02-2016 End: 06-26-2017 *Hepatic Function Panel *Hepatic Function Panel [facility] Phone: Start: 08-02-2016 End: 08-02-2016 Follow Up Appt 6 months Follow Up Appt 6 months [employer] Work Phone: Start: 08-02-2016 End: 08-02-2016 PFM PFM [employer] Work Phone: Start: 08-02-2016 End: 08-02-2016 Pulmonary Function Test - complete Pulmonary Function Test - complete [employer] Work Phone: Start: 08-02-2016 End: 06-26-2017 Thyroid stimulating hormone (TSH) *TSH [employer] Work Phone: Start: 08-02-2016 End: 06-26-2017 Thyroxine (T4) *T4 (Total) [facility] Work Phone: Start: 05-01-2016 End: 05-01-2016 Follow Up Appt 3 months Follow Up Appt 3 months [facility] Work Phone: Start: 05-01-2016 End: 05-01-2016 Follow Up Appt 6 months Follow Up Appt 6 months [facility] Work Phone: Start: 05-01-2016 End: 05-01-2016 MMM MMM [facility] Work Phone: Start: 05-01-2016 End: 05-01-2016 PFM PFM [facility] Work Phone: Start: 04-19-2016 End: 04-19-2016 Electrocardiogram, complete EKG (In office) [facility] Work Phone: Start: 10-26-2015 End: 10-26-2015 Follow Up Appt Other Follow Up Appt Other [facility] Work Phone: Start: 09-15-2015 End: 09-15-2015 Follow Up Appt 6 weeks Follow Up Appt 6 weeks [facility] Work Phone: Start: 09-15-2015 End: 09-15-2015 MMM MMM [facility] Work Phone: Start: 09-15-2015 End: 09-15-2015 Nuclear stress test -Lexiscan Nuclear stress test -Lexiscan [facility] Work Phone: Start: 2010 BONE DENSITY BONE DENSITY [facility] Start: 2010 PNEUMOCOCCAL: 65+ (1 - PCV) PNEUMOCOCCAL: 65+ (1 - PCV) [facility] Start: 2010 PNEUMOVAX AGE 65 AND OVER WITH 5YR LOOKBACK (#1) PNEUMOVAX AGE 65 AND OVER WITH 5YR LOOKBACK (#1) [facility] Start: 2010 Screening for osteoporosis Bone Dens ity Screening [facility] Start: 2005 RSV Vaccine (1 - 1-d ose 60+ series) RSV Vaccine (1 - 1-dose 60+ series) [facility] Start: 1995 SHINGRIX VACCINE (1 of 2) [place] GRIX VACCINE (1 of 2) [facility] Start: 1995 Zoster Vaccines (1 of 2) Zoste r Vaccines (1 of 2) [facility] Start: 1990 DIABETES SCREEN DIABETES SCREEN [facility] Start: 1964 Urine microalbumin profile DTA P,TDAP,TD (1 - Tdap) [facility] Start: 1963 ANNUAL PCP TEAM BRICK WHEELER JIMMIE DISEASE VISIT ANNUAL PCP TEAM CHRONIC DISEASE VISIT [facility] Start: 1963 BP CONTROLLED (<130/80) BP CON TROLLED (<130/80) [facility] Start: 1963 HEPATITIS C SCREENING HEPATITIS C SC REENING [facility] Start: 1957 Adult depression scr eening assessment DEPRESSION SCREENING [facility] Start: 1957 Depression Monitoring Depression Mon itoring [facility] Start: 1950 COVID-19 VACCINE (#1) COVID-19 VACCI NE (#1) [facility] Start: 1945 Screening for osteoporosis Bone Dens ity Scan [facility] Patient Education [facility] Work Phone: Patient referral [facility] Work Phone: Polysomnography [facility] Work Phone: [place] [facility] Immunizations Immunization Date Immunization Notes Care Provider Ezequiel bautista 11-27-2023 influenza virus vaccine, unspecified formulation Vinita Thakur MD Work Phone: [facility] 08-01-2021 influenza virus vaccine, unspecified formulation Flavia Dawson LPN [facility] 12-30-2020 influenza, injectabl e, quadrivalent, preservative free [facility] 12-30-2020 influenza, seasonal, injectable [facility] 12-30-2020 Fluad Quad (65yr up)(PF) 60 mcg (15 mcg x 4)/0.5mL IM syringe (flu vac [facility] Work Phone: 08-12-2019 Fluad 2019- 65yr up(PF)45 mcg(15 mcgx3)/0.5 mL intramuscular syringe (flu vac [facility] Work Phone: 07-12-2015 Influenza virus vaccine [facility] Payers Date Payer Category Payer Self-pay [id number] [phone] [id number] 2019 Medicare HUMANA MEDICARE HU[employer]NA MEDICARE PPO [id number] 2019-Present [phone] [place], [place] [address] PPO [id number] 2019 Medicare [facility] HUMANA MEDICARE PPO [id number] 2019-Present [phone] [place] [address] [id number] 2019 Medicare HMO [facility] MEDICARE [id number] 2019 Medicare [id number] 2015 Medicare [id number] Unknown [id number] [id number] 2 Unknown [id number] 2.16.840.1.656292.3.579.2.46 2 Unknown [id number] 2.16.840.1.717710.3.579.2.46 2 Unknown [id number] 2.16.840.1.540899.3.579.2.46 2 Unknown [id number] 2.16.840.1.473888.3.579.2.46 2 Unknown [id number] 2.16.840.1.363920.3.579.2.46 2 Unknown [id number] 2.16.840.1.647202.3.579.2.46 2 Unknown [id number] 2.16.840.1.886659.3.579.2.46 2 Unknown [id number] 2.16.840.1.676091.3.579.2.46 2 Unknown [id number] 2.16.840.1.912782.3.579.2.46 2 Unknown [id number] 2.16.840.1.096988.3.579.2.46 2 Unknown [id number] 2.16.840.1.930903.3.579.2.46 2 Unknown [id number] 2.16.840.1.910475.3.579.2.46 2 Unknown [id number] 2.16.840.1.381716.3.579.2.46 2 Unknown [id number] 2.16.840.1.648449.3.579.2.46 2 Unknown [id number] 2.16.840.1.074835.3.579.2.46 2 Unknown [id number] 2.16.840.1.218035.3.579.2.46 2 Unknown [id number] 2.16.840.1.054053.3.579.2.46 2 Unknown [id number] 2.16.840.1.888812.3.579.2.46 2 Unknown [id number] 2.16.840.1.584754.3.579.2.46 2 Unknown [id number] 2.16.840.1.163120.3.579.2.46 2 Unknown [id number] 2.16.840.1.283219.3.579.2.46 2 Unknown [id number] 2.16.840.1.195020.3.579.2.46 2 Unknown [id number] 2.16.840.1.933374.3.579.2.46 2 Social History Date Type Detail Facility Start: 10-09-2021 End: 01-29-2024 Tobacco smoking status NMIS Unknown if ever smoked [facility] Start: 1945 Sex Assigned At Female [facility] Start: 05-13-2018 End: 10-14-2024 Tobacco smoking status NMIS Never smoked tobacco [facility] Start: 05-13-2018 End: 10-14-2024 Tobacco use and exposure Smokeless tobacco non-user [facility] Start: 11-05-2019 End: 07-08-2024 Alcohol intake Current non-drinker of alcohol (finding) [facility] Start: 1945 Sex Assigned At Not on file C [facility] Start: 04-22-2022 End: 05-02-2022 Exposure to SARS-CoV-2 (event) Not sure [facility] Start: 04-11-2016 None [facility] Start: 04-11-2016 Spouse/ Signif icant Other [facility] Start: 09-03-2015 Non-smoker [facility] Start: 07-09-2024 End: 05-25-2025 History of Social function [facility] Start: 07-09-2024 End: 05-25-2025 [facility] Utilities [facility] Has the [employer], [employer], oil, or water company threatened to shut off services in your home in past 12Mo No [facility] Adult Depression Screening Assessment 4 [facility] (I/We) worried gavin er (my/our) food would run out before (I/we) got money to buy more. Never true [facility] Start: 06-11-2022 End: 02-01-2025 Sex Female (finding) [facility] Start: 05-25-2025 Alcoholic beverage intake Lifetime non-drinker (finding) [employer] Medical Equipment Procedure Code Equipment Code Equipment Origin al Text Equipment Identifier Dates Diogenes fundoplication CLIP,HEMOL OCK LG WECK FDA Start: 12-08-2018 Diogenes fundoplication CLIP,HEMOL OCK MED WECK FDA Start: 12-08-2018 Diogenes fundoplication CLIP,HEMOL OCK MED WECK FDA Start: 12-08-2018 Diogenes fundoplication CLIP,HEMOL OCK MED WECK FDA Start: 12-08-2018 Diogenes fundoplication PATCH,CAROTID THIN FDA Start: 12-08-2018 Diogenes fundoplication CLIP,HEMOL OCK LG WECK FDA Start: 12-08-2018 Diogenes fundoplication CLIP,HEMOL OCK MED WECK FDA Start: 12-08-2018 Diogenes fundoplication CLIP,HEMOL OCK MED WECK FDA Start: 12-08-2018 Diogenes fundoplication CLIP,HEMOL OCK MED WECK FDA Start: 12-08-2018 Doigenes fundoplication PATCH,CAROTID THIN FDA Start: 12-08-2018 Diogenes fundoplication CLIP,HEMOL OCK LG WECK FDA Start: 12-08-2018 Diogenes fundoplication CLIP,HEMOL OCK MED WECK FDA Start: 12-08-2018 Diogenes fundoplication CLIP,HEMOL OCK MED WECK FDA Start: 12-08-2018 Diogenes fundoplication CLIP,HEMOL OCK MED WECK FDA Start: 12-08-2018 Diogenes fundoplication PATCH,CAROTID THIN FDA Start: 12-08-2018 Diogenes fundoplication CLIP,HEMOL OCK LG WECK FDA Start: 12-08-2018 Diogenes fundoplication CLIP,HEMOL OCK MED WECK FDA Start: 12-08-2018 Diogenes fundoplication CLIP,HEMOL OCK MED WECK FDA Start: 12-08-2018 Diogenes fundoplication CLIP,HEMOL OCK MED WECK FDA Start: 12-08-2018 Diogenes fundoplication PATCH,CAROTID THIN FDA Start: 12-08-2018 Diogenes fundoplication CLIP,HEMOL OCK LG WECK FDA Start: 12-08-2018 Diogenes fundoplication CLIP,HEMOL OCK MED WECK FDA Start: 12-08-2018 Diogenes fundoplication CLIP,HEMOL OCK MED WECK FDA Start: 12-08-2018 Diogenes fundoplication CLIP,HEMOL OCK MED WECK FDA Start: 12-08-2018 Diogenes fundoplication PATCH,CAROTID THIN FDA Start: 12-08-2018 Diogenes fundoplication CLIP,HEMOL OCK LG WECK FDA Start: 12-08-2018 Diogenes fundoplication CLIP,HEMOL OCK MED WECK FDA Start: 12-08-2018 Diogenes fundoplication CLIP,HEMOL OCK MED WECK FDA Start: 12-08-2018 Diogenes fundoplication CLIP,HEMOL OCK MED WECK FDA Start: 12-08-2018 Diogenes fundoplication PATCH,CAROTID THIN FDA Start: 12-08-2018 Diogenes fundoplication CLIP,HEMOL OCK LG WECK FDA Start: 12-08-2018 Diogenes fundoplication CLIP,HEMOL OCK MED WECK FDA Start: 12-08-2018 Diogenes fundoplication CLIP,HEMOL OCK MED WECK FDA Start: 12-08-2018 Diogenes fundoplication CLIP,HEMOL OCK MED WECK FDA Start: 12-08-2018 Diogenes fundoplication PATCH,CAROTID THIN FDA Start: 12-08-2018 Diogenes fundoplication CLIP,HEMOL OCK LG WECK FDA Start: 12-08-2018 Diogenes fundoplication CLIP,HEMOL OCK MED WECK FDA Start: 12-08-2018 Diogenes fundoplication CLIP,HEMOL OCK MED WECK FDA Start: 12-08-2018 Diogenes fundoplication CLIP,HEMOL OCK MED WECK FDA Start: 12-08-2018 Diogenes fundoplication PATCH,CAROTID THIN FDA Start: 12-08-2018 Diogenes fundoplication CLIP,HEMOL OCK LG WECK FDA Start: 12-08-2018 Diogenes fundoplication CLIP,HEMOL OCK MED WECK FDA Start: 12-08-2018 Diogenes fundoplication CLIP,HEMOL OCK MED WECK FDA Start: 12-08-2018 Diogenes fundoplication CLIP,HEMOL OCK MED WECK FDA Start: 12-08-2018 Diogenes fundoplication PATCH,CAROTID THIN FDA Start: 12-08-2018 Diogenes fundoplication CLIP,HEMOL OCK LG WECK FDA Start: 12-08-2018 Diogenes fundoplication CLIP,HEMOL OCK MED WECK FDA Start: 12-08-2018 Diogenes fundoplication CLIP,HEMOL OCK MED WECK FDA Start: 12-08-2018 Diogenes fundoplication CLIP,HEMOL OCK MED WECK FDA Start: 12-08-2018 Diogenes fundoplication PATCH,CAROTID THIN FDA Start: 12-08-2018 Diogenes fundoplication CLIP,HEMOL OCK LG WECK FDA Start: 12-08-2018 Diogenes fundoplication CLIP,HEMOL OCK MED WECK FDA Start: 12-08-2018 Diogenes fundoplication CLIP,HEMOL OCK MED WECK FDA Start: 12-08-2018 Diogenes fundoplication CLIP,HEMOL OCK MED WECK FDA Start: 12-08-2018 Diogenes fundoplication PATCH,CAROTID THIN FDA Start: 12-08-2018 Diogenes fundoplication CLIP,HEMOL OCK LG WECK FDA Start: 12-08-2018 Diogenes fundoplication CLIP,HEMOL OCK MED WECK FDA Start: 12-08-2018 Diogenes fundoplication CLIP,HEMOL OCK MED WECK FDA Start: 12-08-2018 Diogenes fundoplication CLIP,HEMOL OCK MED WECK FDA Start: 12-08-2018 Diogenes fundoplication PATCH,CAROTID THIN FDA Start: 12-08-2018 Diogenes fundoplication CLIP,HEMOL OCK LG WECK FDA Start: 12-08-2018 Diogenes fundoplication CLIP,HEMOL OCK MED WECK FDA Start: 12-08-2018 Diogenes fundoplication CLIP,HEMOL OCK MED WECK FDA Start: 12-08-2018 Diogenes fundoplication CLIP,HEMOL OCK MED WECK FDA Start: 12-08-2018 Diogenes fundoplication PATCH,CAROTID THIN FDA Start: 12-08-2018 Diogenes fundoplication CLIP,HEMOL OCK LG WECK FDA Start: 12-08-2018 Diogenes fundoplication CLIP,HEMOL OCK MED WECK FDA Start: 12-08-2018 Diogenes fundoplication CLIP,HEMOL OCK MED WECK FDA Start: 12-08-2018 Diogenes fundoplication CLIP,HEMOL OCK MED WECK FDA Start: 12-08-2018 Diogenes fundoplication PATCH,CAROTID THIN FDA Start: 12-08-2018 Diogenes fundoplication CLIP,HEMOL OCK LG WECK FDA Start: 12-08-2018 Diogenes fundoplication CLIP,HEMOL OCK MED WECK FDA Start: 12-08-2018 Diogenes fundoplication CLIP,HEMOL OCK MED WECK FDA Start: 12-08-2018 Diogenes fundoplication CLIP,HEMOL OCK MED WECK FDA Start: 12-08-2018 Diogenes fundoplication PATCH,CAROTID THIN FDA Start: 12-08-2018 Diogenes fundoplication CLIP,HEMOL OCK LG WESTEPHANIE FDA Start: 12-08-2018 Diogenes fundoplication CLIP,HEMOL OCK MED WECK FDA Start: 12-08-2018 Diogenes fundoplication CLIP,HEMOL OCK MED WECK FDA Start: 12-08-2018 Diogenes fundoplication CLIP,HEMOL OCK MED WECK FDA Start: 12-08-2018 Diogenes fundoplication PATCH,CAROTID THIN FDA Start: 12-08-2018 Diogenes fundoplication CLIP,HEMOL OCK LG WESTEPHANIE FDA Start: 12-08-2018 Diogenes fundoplication CLIP,HEMOL OCK MED WECK FDA Start: 12-08-2018 Diogenes fundoplication CLIP,HEMOL OCK MED WECK FDA Start: 12-08-2018 Diogenes fundoplication CLIP,HEMOL OCK MED WECK FDA Start: 12-08-2018 Diogenes fundoplication PATCH,CAROTID THIN FDA Start: 12-08-2018 Diogenes fundoplication CLIP,HEMOL OCK LG WECK FDA Start: 12-08-2018 Diogenes fundoplication CLIP,HEMOL OCK MED WECK FDA Start: 12-08-2018 Diogenes fundoplication CLIP,HEMOL OCK MED WECK FDA Start: 12-08-2018 Diogenes fundoplication CLIP,HEMOL OCK MED WECK FDA Start: 12-08-2018 Diogenes fundoplication PATCH,CAROTID THIN FDA Start: 12-08-2018 Diogenes fundoplication CLIP,HEMOL OCK LG WECK FDA Start: 12-08-2018 Diogenes fundoplication CLIP,HEMOL OCK MED WECK FDA Start: 12-08-2018 Diogenes fundoplication CLIP,HEMOL OCK MED WECK FDA Start: 12-08-2018 Diogenes fundoplication CLIP,HEMOL OCK MED WECK FDA Start: 12-08-2018 Diogenes fundoplication PATCH,CAROTID THIN FDA Start: 12-08-2018 Diogenes fundoplication CLIP,HEMOL OCK LG WECK FDA Start: 12-08-2018 Diogenes fundoplication CLIP,HEMOL OCK MED WECK FDA Start: 12-08-2018 Diogenes fundoplication CLIP,HEMOL OCK MED WECK FDA Start: 12-08-2018 Diogenes fundoplication CLIP,HEMOL OCK MED WECK FDA Start: 12-08-2018 Diogenes fundoplication PATCH,CAROTID THIN FDA Start: 12-08-2018 Lithotripsy, ESWL ([id number]) Polymeric uret eral stent ()[id number] FDA Start: 08-01-2022 Lithotripsy, ESWL ([id number]) Polymeric uret eral stent ()[id number] FDA Start: 08-01-2022 ([id number]) Metal-backed patella prosthesis ()[id number] FDA Start: 10-01-2022 ([id number]) Coated knee femu r prosthesis ()[id number] FDA Start: 10-01-2022 ([id number]) Coated knee tibi a prosthesis ()[id number] FDA Start: 10-01-2022 ([id number]) Tibial insert ()[id number] FDA Start: 10-01-2022 Goals Date Patient Goal Desired Activity /State Functional Status Date Assessment Result Facility 03-13-2025 Functional status Ambulates [facility] Work Phone: 10-02-2022 Functional status Chair [facility] Work Phone: 08-01-2022 Functional status Bathroom Privilege [facility] Work Phone: Mental Status Date Assessment Result Facility 03-13-2025 Cognitive function Voice/Name [facility] Work Phone: 10-12-2023 Cognitive function Level Of Cons ciousness Awake;Alert;Appropriate;Follow s Commands [facility] Work Phone: 10-02-2022 Cognitive function Level Of Cons ciousness Awake;Alert;Appropriate;Follow s Commands [facility] Work Phone: 10-01-2022 Cognitive function Voice/Name [facility] Work Phone: 08-01-2022 Cognitive function Voice/Name [facility] Work Phone: Clinical Notes 05-13-2018 to 05-25-2025 Vinita Thakur MD - 05/25/2025 1:45 PM EDTPatient Instructions Note Date & Type Note Facility 05-25-2025 History of Presen t illness Narrative ;;[facility] [place] Card[facility]/Electrophysiology Follow Up Clinic Note Chief Complaint: Chief Complaint Patient presents with Atrial Flutter Other 1963 ASD closure Atrial Fibrillation Persisitent Hypertension Sleep Apnea Does not have C-PAP History of Present Illness: Ruben Lobo is a 80 y.o. female referred here in Dec [address] Rodriguez for evaluation of her atrial tachyarrhythmias. She had an ASD closure in 1962. She was diagnosed with atrial fibrillation in 2017 and had a CVN by Dr. Duran. She reports that she followed with him for a while, and records show that at least in 2018 she was on amiodarone. She does not remember the drug and she was off of it as of 2021. It looks like she went back into atrial flutter by ECG in Oct 2023 and has been in it by ECGs (Jun 2024, Jul 2024, Aug 2024, and Sep 2024) and by a Holter monitor in Jan 2024 since then. In Jun 2024 she had a paraspinal hematoma with a neck injection for pain that required neurosurgical intervention. She was restarted on Eliquis soon after that. When I met her in December, she had no cardiac symptoms, other than some vague fatigue/weakness. We decided that rate control was appropriate, as the likelihood of maintaining sinus rhythm is fairly low given her age, her ASD repair, her large atria, and the fact that she has been in the arrhythmia for a year and a half. I increased her Cardizem to 180 mg daily and kept her on metoprolol 50 twice daily She presents today feeling at her baseline. She really cannot tell me when she may have gotten back into atrial flutter/fibrillation. She continues to report some weakness/fatigue, which is at her baseline. However, she presented to the [facility] ED in early March for weakness. She was discharged from the ED without seeing cardiology. The EKGs, which showed atrial flutter with a controlled/variable VR were read as second-degree AV block and her Cardizem and metoprolol were decreased. Subsequently, she saw her PCP who decreased her Cardizem to 60 mg twice a day and stopped the metoprolol and gave her propranolol 10 mg daily. She denies chest pain, shortness of breath/MUÑOZ, decrease in exercise tolerance, palpitation, dizziness, or syncope. Her who needed total care for parkinsonism recently was moved [place] a [place] [facility] facility. She does not exercise regularly, but can do all of her ADLs. The ECG from the [facility] ED in March showed a slow atrial flutter with a controlled VR in the 60 to 80 bpm. Another echo done in March 2025 showed a normal LVEF with minimal valvular disease. Her EKG today shows a slow, likely typical atrial flutter, though the atrial cycle is ~200 bpm, with a 2-1 VR at ~100 bpm. ECGs in Aug/Sep 2024 (which I reviewed) show both typical and reverse typical a flutter with 2-1 conduction and a VR of 105 beats a minute. A 48-hour Holter in Jan 2024 shows the same with an avg VR of 95 bpm. An echo in Aug 2024 shows a normal LVEF of 60% mildly enlarged LA and a normal RA, and mild TR, MR, and AI. Assessment and Plan: 1. Longstanding Persistent Atrial Flutter: It appears that she may have been in this rhythm since at least Oct 2023. She denies symptoms other than some fatigue that has started over the last few weeks and does not seem associated with her rhythm. When I met her in December, her HR was better controlled after Dr. Rodriguez increased the metoprolol to 50 twice daily. I do not believe that a cardioversion or ablation will help her feel any better. I think the likelihood of recurrence given her ASD surgery and longstanding arrhythmia are high. In December, and again today I told her and her son that rate control seems more appropriate in this case. The medications should not have been decreased in the ED. I will resume the 180 mg of Cardizem daily in the morning and restart 50 mg of Toprol in the evening. This should be enough to control her heart rate. I have asked her and her son to record her HR and BP for Dr. Rodriguez. She sees him in the next month. Today, I will also decrease her Eliquis to 2.5 twice a day as she is now 80 and weighs 53 kg. I will see her here on a as needed basis. 2. Hypertension: Seems well-controlled here today. I have asked her and her son to keep a log of her BPs and heart rate for Dr. Rodriguez. 3. Paraspinal hematoma: This occurred in the setting of a neck injection for pain. She has been cleared to resume Eliquis and has been taking it without incident. When I met her we briefly spoke about a Watchman procedure because she asked me if she could stop the Eliquis. If she has another bleeding episode it would be reasonable to consider that. Past Medical History: Medical History[1] Past Surgical History Surgical History[2] Family History Family History[3] Social History Social History[4] Medications: Reviewed Allergies: Reviewed Review of Systems: All other systems were reviewed and are negative other than as noted in the HPI. Physical Examination: Vitals: Blood pressure 130/82, pulse 103, height 5' (1.524 m), weight 117 lb 3.2 oz (53.2 kg), SpO2 97%. Constitutional: Appears well kept and looks stated age; in NAD Psychiatric: A &O x3 Mood is pleasant; Affect is appropriate Musculoskeletal: Normocephalic; no joint swelling; gait steady; 5/5 muscle strength bilaterally in upper and lower extremities; no clubbing or cyanosis HEENT: Pupils are equal and round; Conjunctiva are not injected; Sclera are non-icteric; Airway and Nares are patent; Ears without external abnormalities. Mucosa is pink; Dentition is normal Neck: Supple; No JVD or Bruits; No thyromegaly; No lymphadenopathy Respiratory: Lungs are clear with no rales or wheezes. Respiratory effort is normal and symmetrical bilaterally; Good air movement bilaterally Heart: Regularly irregular; Nl S1 and S2 no mcrg Abdomen: NABS soft, non-tender, non-distended; no organomegaly; no obvious masses Extremities/Skin: No LE edema; Skin warm to touch and well perfused; skin discoloration is absent Neuro: sensation and motor function are grossly normal. Cranial Nerves are grossly intact Laboratory Tests: Lab Results Component Value Date WBC 4.6 07/31/2024 HGB 11.5 (A) 07/31/2024 HCT 37.6 07/31/2024 MCV 98.2 07/31/2024 PLT 178 07/31/2024 Lab Results Component Value Date NA 141 07/20/2024 K 4.1 07/20/2024 CL 108 (A) 07/20/2024 CO2 27 07/20/2024 BUN 22 07/20/2024 CREATININE 0.84 07/20/2024 Vinita Thakur MD DATE of SERVICE: 05/25/2025 [1] Past Medical History: Diagnosis Date A-fib ([facility]) ([facility]) 10/14/2024 On Eliquis Anxiety 10/14/2024 Congenital heart disease 11/11/1963 Mixed hyperlipidemia 07/09/2024 CLARISSE on CPAP 10/14/2024 Rheumatoid arthritis involving multiple sites ([facility]) ([facility]) 07/09/2024 Typical atrial flutter ([facility]) 10/14/2024 [2] Past Surgical History: Procedure Laterality Date APPENDECTOMY ASD REPAIR CHOLECYSTECTOMY HYSTERECTOMY KNEE ARTHROPLASTY Right DIOGENES FUNDOPLICATION [3] No family history on file. [4] Social History Tobacco Use Smoking status: Never Smokeless tobacco: Never Vaping Use Vaping status: Never Used Substance Use Topics Alcohol use: Never Drug use: Never documented in this encounter [facility] 05-25-2025 Instructions Vinita Thakur MD - 05/25/2025 1:45 PM EDT Stop the propanolol and the cardizem pills Restart the Diltiazem 180 mg daily in AM Restart Metoprolol (Toprol) 50 mg once a day in the evening Decrease the eliquis to 2.5 mg twice a day. You can take half of the 5mg pill twice a day until you run out and then fill the new script. Please check your Blood Pressure and Heart Rate 2-3 times a week and write it down and bring it to Dr Rodriguez appointment. documented in this encounter [facility] 05-19-2025 Discharge summary Note Date/Time May 19, 2025 7:00p [facility] [address] [place] [address] / REHABILITATION SERVICES DISCHARGE SUMMARY MR#: [id number] Acct: [id number] Name: RUBEN LOBO Rep #: [id number] : 1945 80 From: Cert. NATALIIA Cevallos, OCS Referring Dr.: Dr. Juan Manuel Martinez MD Status: REG RCR Insurance: [employer] MEDICARE PPO SELF PAY INSURANCE Discharge Summary D/C summary: It has been my pleasure to treat RUBEN LOBO referred by Dr. Juan Manuel Martinez MD, with the diagnosis of CERVICAL DISC DEGENERATION for a total of 8 visit(s). Discharge Date: 05/19/25 Please see the following information for a summary of their discharge status. Subjective Subjective: Doing some better plan to see for A-FIB Able to sleep less medication Able to work in garden Pain Bilateral Neck: Pain Intensity (Out of 10): 2 Overall Improvement % Improvement: 50 Objective Objective/Function: OSTURE: mild thoracic kyphosis GAIT: reciprocal pattern PALAPTION: tender UT/levator/paraspinals NEURO: denies paresthesia/tingling ,reflexes C5-6-7 1/3 CERVICAL ROM: flexion mod loss ,lateral flexion mod loss ,extension/mod severe loss , rotation mod loss BUE AROM: WFL MMT: grossly 4/5 ,shoulders 4-/5 Goals Goal 1:: Patient to be I with HEP for cervical Goal Progress: Goal Met Goal 2:: Patient to demonstrate 40% improvement with less pain and improved function Goal Progress: Goal Met Goal 3:: Patient to improve cervical ROM for function of recovery for driving Goal Progress: Goal Met Goal 4:: Patient to improve neck oswestry score by 5 points to improve QOL and function Goal Progress: Goal Met Plan Plan: D/C D/C Information Discharge Comments: HEP d/c sentence: If there are questions or concerns regarding this patient's physical therapy, please feel free to call me at [phone]. Thank you for the referral of thispatient. Sincerely, Berny Freitas PT, Cert T, OCS Balance/Gait/Functional tests Balance/Special Test Scores Oswestry Neck Score: 10 Improvement % Improvement: 50 <Electronically signed by Samantha Mckeon PT. NATALIIA, OCS> 05/20/25 1302 CC: Dr. Juan Manuel Martinez MD; Dr. Rip De La Garza MD ~ JLA Signed [facility] Work Phone: 1(492) 195-376907-09-2025 Discharge summary [facility] [address] [place] [address] [address] [place] [id number] / REHABILITATION SERVICES DISCHARGE SUMMARY MR#: [id number] Acct: [id number] Name: RUBEN LOBO Rep #: [id number] : 1945 80 From: Cert. NATALIIA Cevallos, OCS Referring Dr.: Dr. Juan Manuel Martinez MD Status: REG RCR Insurance: [employer] MEDICARE PPO SELF PAY INSURANCE Discharge Summary D/C summary: It has been my pleasure to treat RUBEN LOBO referred by Dr. Juan Manuel Martinez MD, with the diagnosis of CERVICAL DISC DEGENERATION for a total of 8 visit(s). Discharge Date: 05/19/25 Please see the following information for a summary of their discharge status. Subjective Subjective: Doing some better plan to see DR mike MERINO Able to sleep less medication Able to work in garden Pain Bilateral Neck: Pain Intensity (Out of 10): 2 Overall Improvement % Improvement: 50 Objective Objective/Function: OSTURE: mild thoracic kyphosis GAIT: reciprocal pattern PALAPTION: tender UT/levator/paraspinals NEURO: denies paresthesia/tingling ,reflexes C5-6-7 11/13 CERVICAL ROM: flexion mod loss ,lateral flexion mod loss ,extension/mod severe loss , rotation mod loss BUE AROM: WFL MMT: grossly 4/5 ,shoulders 4-/5 Goals Goal 1:: Patient to be I with HEP for cervical Goal Progress: Goal Met Goal 2:: Patient to demonstrate 40% improvement with less pain and improved function Goal Progress: Goal Met Goal 3:: Patient to improve cervical ROM for function of recovery for driving Goal Progress: Goal Met Goal 4:: Patient to improve neck oswestry score by 5 points to improve QOL and function Goal Progress: Goal Met Plan Plan: D/C D/C Information Discharge Comments: HEP d/c sentence: If there are questions or concerns regarding this patient's physical therapy, please feel free to call me at [phone]. Thank you for the referral of thispatient. Sincerely, Berny Freitas, PT, Cert MDT, OCS Balance/Gait/Functional tests Balance/Special Test Scores Oswestry Neck Score: 10 Improvement % Improvement: 50 05/20/25 1302 CC: Dr. Juan Manuel Martinez MD; Dr. Rip De La Garza MD ~ JLA Signed [facility]05-03-2025 [facility] Medical Records Department [address] [place] [address] Discharge Summary 03/13/25 09 MR#: [id number] Acct: [id number] Name: RUBEN LOBO Rep #: [id number] : 1945 79 From: Anthony Owen MD PCP: Dr. Rip De La Garza MD Status:ADM MELI Location: [place] [address] Providers Date of Admission: 03/12/25 Date of Discharge: 03/13/25 Primary Care Physician: Dr. Rip De La Garza MD Consultations 03/12/25 10:12 Consult: Cardiology Routine Consulting Provider: Quincy Martin Reason for Consult: Second-degree AV block EMERGENT Consult: No MD Notified: Yes Date Notified: 03/12/25 Time Notified: 09:44 Method of Notification: ED Physician Initiated Reason For Visit: SECOND DEGREE AV BLOCK Diagnosis Discharge Diagnosis (1) Paroxysmal atrial fibrillation: Status: Chronic Code(s): I48.0 - Paroxysmal atrial fibrillation (2) Atrial flutter, paroxysmal: Status: Acute Code(s): I48.92 - Unspecified atrial flutter (3) Nausea: Status: Acute Code(s): R11.0 - Nausea (4) MUÑOZ (dyspnea on exertion): Status: Chronic Code(s): R06.09 - Other forms of dyspnea (5) Fatigue: Status: Acute Code(s): R53.83 - Other fatigue Plan Patient is a 79-year-old lady with past medical history significant for paroxysmal atrial fibrillation, ASD status postrepair dyslipidemia hypertension who presented with progressive generalized weakness and fatigue. EKG obtained in the emergency department demonstrated type II AV block. Admitted to monitored bed for subsequent management 1. A fib/flutter with 2-1 AV conduction EKG obtained in the ED did show questionable Mobitz type II. Admitted to telemetry for continuous monitoring as part of her management ordered serial cardiac enzymes 2D echo and consultation placed to cardiology from the ED. Patient is on Cardizem as well as metoprolol held given her presentation did continue patient systemic anticoagulant with apixaban Patient was seen in consultation by Dr. Martin with cardiology medication adjustments were made patient was on Cardizem 180 mg daily changed to 30 mg 3 times daily. Patient was also on metoprolol 50 mg twice daily this was decreased to 25 twice daily. Patient had a repeat echo done and plans for patient to follow-up with primary cardiology as outpatient for possible synchronized cardioversion as outpatient 2. Chronic back pain with significant debility ??? Requested for PT OT and web content & social media manager to assist with discharge planning. Also ordered TSH for subsequent eval came back within normal 3. Congenital heart disease???ASD ??? Status post repair 4. Hypertension ??? Blood pressure controlled, home medications continued with dose adjustment as needed 5. Depression with anxiety ??? Patient is on sertraline 6. GERD ??? With previous laparoscopic Diogenes's fundoplication patient is on PPI continued 7. DVT prophylaxis ??? Patient is on apixaban Medications at Discharge Home Medications sertraline 100 mg tablet 100 mg PO QHS 12/14/20 acetaminophen 500 mg tablet 1,000 mg PO Q8 PRN Pain 12/20/23 apixaban 5 mg tablet (Eliquis) 5 mg PO BID #180 tabs 04/07/24 cholecalciferol (vitamin D3) 50 mcg (2,000 unit) capsule 50 mcg PO DAILY 07/19/24 pantoprazole 40 mg tablet,delayed release 40 mg PO DAILY #90 tabs 08/19/24 magnesium oxide 400 mg PO DAILY SUPPLEMENT 03/12/25 oxycodone 5 mg tablet 2.5 - 5 mg PO QHS 03/12/25 tizanidine 4 mg tablet 4 mg PO Q8H PRN muscle spasticity 03/12/25 diltiazem HCl 30 mg tablet 30 mg PO Q8 30 days #90 tabs 03/13/25 metoprolol tartrate 25 mg tablet 25 mg PO BID 30 days #60 tabs 03/13/25 Hospital Course Summary of Care Provided Minutes Spent on Discharge: 32 Physical Exam Narrative GENERAL: cooperative, appears jittery HEENT: Atraumatic; normocephalic EYES; Anicteric, Normal Conjunctiva NECK; supple, normal thyroid, RESPIRATORY: Diminished to auscultation CARDIOVASCULAR: Regular S1 S2, GI: soft, normoactive bowel sounds, : No Renal angle tenderness; EXTREMITIES: No edema, no clubbing, MUSCULOSKELETAL: no muscle wasting NEURO: Awake; no lateralizing signs. SKIN: No Rash PSYCH; Flat affect Weight / BMI Weight Weight: 54.9 kg Body Mass Index (BMI) 23.6 ABG / Lab / Microbiology Data 03/13/25 05:08 03/13/25 05:08 Laboratory: Laboratory Results - last 24 hr 03/12/25 09:47: PT 16.4 H, INR 1.3, APTT 31.9, Troponin T High Sens 13, NT pro BNP II 1002, TSH 3.660 03/12/25 11:20: Troponin T Hi Sens 2 Hr 12 03/12/25 13:55: Troponin T Hi Sens 4Hr 12 03/13/25 05:08: WBC 4.9, RBC 4.21, Hgb 11.5 L, Hct 36.7 L, MCV 87.2, MCH 27.3, MCHC 31.3 L, RDW Std Deviation 49.2 H, RDW Coeff of Reji 15.5 H, Plt Count 109 L, MPV 11.6, Immature Gran % (Auto) 0.400, Neut % (Auto) 54.0, Lymph % (Auto) 33.6, [place] % (Auto) 10.0, Eos % (Auto) 1.6, Baso % (more contentnot included)...[facility]05-02-2025 Evaluation note* Diagnosis Onset Date Resolution Status Admit Date Atrial flutter, paroxysmal acute March 12, 2025 9:40am Dehydration, mild acute March 9:40am Nausea acute March 12, 2025 9:40am MUÑOZ (dyspnea on exertion) chronic March 12, 2025 9:40am Paroxysmal atrial fibrillation chron ic March 12, 2025 9:40am 2nd degree AV block resolved March 122024 9:40am Fatigue resolved March 12, 2025 9:40am H/O laminectomy acute 2025 2:22pm Other cervical disc degeneration, mid-cervical region, unspecified level acute March 222024 2:22pm [facility] Work Phone: 1(163) 279-705510-07-2024 Miscellaneous Notes* PT DISCHARGE - Pratima Veras, PT - 08/17/2024 1:21 PM EDT SITUATION: spouse present during today's visit. patient reports the following since the last homecare visit: medications/allergies--no changes, no fall. patient reports she is doing beter. Feels thatshe is doing more and starting to build some stamina. Reports she is able to complete all of her self care. Family assists with gettign her out of the house and with outdoor ambulation. Pt reports that she usses the cane some but prefers to use the rollator BACKGROUND: Diagnoses (reason for Home Care): hospital admission to [facility] on 07/19/24-07/21/24 [facility]: pt had a cervical epidural on 07/08 then presented to the ER on 07/09 with difficulty walking, slurredspeech and weakness Diagnoses (reason for Home Care): [facility] 07/09/24 on 07/13/24. Encounter for other orthopedic aftercare SURGERY/PROCEDURE: 1. T1-T5 laminectomy. 2. Evacuation of epidural hematoma. 3. Insertion of subfascial drain. Weight Bearing/Precaution Changes: neck brace - may remove when sitting or sleeping ASSESSMENT: Focus of visit performed standing le strength exercises. Patient has good understandingof HEP. able to continue indep. Starting to do some walkign without an ad ( short distances in the kitchen and bathroom or near something to touch. Physical therapy discharged: goals achieved. Functional performance at discharge - bed mobility independent, transfers independent, ambulation independent and stairs supervision. Plan of care, goals, and discharge reviewed and agreed upon with patient and/or caregiver. RECOMMENDATION: Patient discharged from home health services. Instructions to include:home exercise program as directed See intervention summary for intervention/education details. [facility]'s home Note* PT DISCHARGE - Pratima Veras PT - 08/17/2024 1:21 PM EDT SITUATION: spouse present during today's visit. patient reports the following since the last homecare visit: medications/allergies--no changes, no fall. patient reports she is doing beter. Feels thatshe is doing more and starting to build some stamina. Reports she is able to complete all of her self care. Family assists with gettign her out of the house and with outdoor ambulation. Pt reports that she usses the cane some but prefers to use the rollator BACKGROUND: Diagnoses (reason for Home Care): hospital admission to [facility] on 07/19/24-07/21/24 [facility]: pt had a cervical epidural on 07/08 then presented to the ER on 07/09 with difficulty walking, slurredspeech and weakness Diagnoses (reason for Home Care): [facility] 07/09/24 on 07/13/24. Encounter for other orthopedic aftercare SURGERY/PROCEDURE: 1. T1-T5 laminectomy. 2. Evacuation of epidural hematoma. 3. Insertion of subfascial drain. Weight Bearing/Precaution Changes: neck brace - may remove when sitting or sleeping ASSESSMENT: Focus of visit performed standing le strength exercises. Patient has good understandingof HEP. able to continue indep. Starting to do some walkign without an ad ( short distances in the kitchen and bathroom or near something to touch. Physical therapy discharged: goals achieved. Functional performance at discharge - bed mobility independent, transfers independent, ambulation independent and stairs supervision. Plan of care, goals, and discharge reviewed and agreed upon with patient and/or caregiver. RECOMMENDATION: Patient discharged from home health services. Instructions to include:home exercise program as directed See intervention summary for intervention/education details. [facility] Work Phone: 1(431) 677-744209-24-2024 Miscellaneous Notes* PT ROUTINE/REASSESSMENT/RECERT/CASE MGMT - Pratima Veras, PT - 08/04/2024 12:31 PM EDT SITUATION: spouse present during today's visit. patient reports the following since the last homecare visit: medications/allergies--no changes, no fall. patient reports she is doing ok. States that things are finally starting to settle down around here . Her son called [employer] this morning to arrange to have the walker shipped to her . I finally decidedthat i do want it. This rollaotr is really getting worn out BACKGROUND: Diagnoses (reason for Home Care): hospital admission to [facility] on 07/19/24-07/21/24 [facility]: pt had a cervical epidural on 07/08 then presented to the ER on 07/09 with difficulty walking, slurred speech and weakness Diagnoses (reason for Home Care): [facility] 07/09/24 on 07/13/24. Encounter for other orthopedic aftercare SURGERY/PROCEDURE: 1. T1-T5 laminectomy. 2. Evacuation of epidural hematoma. 3. Insertion of subfascial drain. Weight Bearing/Precaution Changes: neck brace - may remove when sitting or sleeping ASSESSMENT: Focus of visit performed standing le strength exercises. Patient has good understandingof HEP. Gait training w/cane Plan of care, goals, and visit frequency reviewed and agreed upon with patient and/or caregiver. . Unalbe to walk outside today due to rain. Son states that took her out yesterday and walked to the neighbors drive and back Current Discharge Plan: independent with home exercise program Anticipate discharge by TBD RECOMMENDATION: Will add one additional viist to the POC to address cane training . Next visit to focus on: cane and stair training and outdoor ambulation if able See intervention summary for intervention/education details. [facility] Patient's home Note* PT ROUTINE/REASSESSMENT/RECERT/CASE MGMT - Pratima Veras, PT - 08/04/2024 12:31 PM EDT SITUATION: spouse present during today's visit. patient reports the following since the last homecare visit: medications/allergies--no changes, no fall. patient reports she is doing ok. States that things are finally starting to settle down around here . Her son called [employer] this morning to arrange to have the walker shipped to her . I finally decidedthat i do want it. This rollaotr is really getting worn out BACKGROUND: Diagnoses (reason for Home Care): hospital admission to [facility] on 07/19/24-07/21/24 [facility]: pt had a cervical epidural on 07/08 then presented to the ER on 07/09 with difficulty walking, slurred speech and weakness Diagnoses (reason for Home Care): [facility] 07/09/24 on 07/13/24. Encounter for other orthopedic aftercare SURGERY/PROCEDURE: 1. T1-T5 laminectomy. 2. Evacuation of epidural hematoma. 3. Insertion of subfascial drain. Weight Bearing/Precaution Changes: neck brace - may remove when sitting or sleeping ASSESSMENT: Focus of visit performed standing le strength exercises. Patient has good understandingof HEP. Gait training w/cane Plan of care, goals, and visit frequency reviewed and agreed upon with patient and/or caregiver. . Unalbe to walk outside today due to rain. Son states that took her out yesterday and walked to the neighbors drive and back Current Discharge Plan: independent with home exercise program Anticipate discharge by TBD RECOMMENDATION: Will add one additional viist to the POC to address cane training . Next visit to focus on: cane and stair training and outdoor ambulation if able See intervention summary for intervention/education details. [facility] Work Phone: 1(339) 127-515209-18-2024 Miscellaneous Notes* PT ROUTINE/REASSESSMENT/RECERT/CASE MGMT - Frances Vann PTA - 07/29/2024 1:03 PM EDT SITUATION: son present during today's visit. patient reports the following since the last homecare visit: medications/allergies--no changes, no fall. patient reports she is doing ok. just got home from hospital yesterday. things have been crazy around here.. BACKGROUND: Diagnoses (reason for Home Care): hospital admission to [facility] on 07/19/24-07/21/24. pt had a cervical epidural on 07/08 then presented to the ER on 07/09 with difficulty walking, slurred speech and weakness Diagnoses (reason for Home Care): [facility] 07/09/24 on 07/13/24. Encounter for other orthopedic aftercare SURGERY/PROCEDURE: 1. T1-T5 laminectomy. 2. Evacuation of epidural hematoma. 3. Insertion of subfascial drain. Weight Bearing/Precaution Changes: neck brace ASSESSMENT: Focus of visit performed standing le strength exercises. Patient has good understanding of HEP. Gait training w/rollator. Plan of care, goals, and visit frequency reviewed and agreed upon with patient and/or caregiver. Current Discharge Plan: independent with home exercise program Anticipate discharge by TBD RECOMMENDATION: Next visit to focus on stair training and outdoor ambulation if able See intervention summary for intervention/education details. [facility] in this encounter[facility] Patient's home Note* PT ROUTINE/REASSESSMENT/RECERT/CASE MGMT - Frances Vann PTA - 07/29/2024 1:03 PM EDT SITUATION: son present during today's visit. patient reports the following since the last homecare visit: medications/allergies--no changes, no fall. patient reports she is doing ok. just got home from hospital yesterday. things have been crazy around here.. BACKGROUND: Diagnoses (reason for Home Care): hospital admission to [facility] on 07/19/24-07/21/24. pt had a cervical epidural on 07/08 then presented to the ER on 07/09 with difficulty walking, slurred speech and weakness Diagnoses (reason for Home Care): [facility] 07/09/24 on 07/13/24. Encounter for other orthopedic aftercare SURGERY/PROCEDURE: 1. T1-T5 laminectomy. 2. Evacuation of epidural hematoma. 3. Insertion of subfascial drain. Weight Bearing/Precaution Changes: neck brace ASSESSMENT: Focus of visit performed standing le strength exercises. Patient has good understanding of HEP. Gait training w/rollator. Plan of care, goals, and visit frequency reviewed and agreed upon with patient and/or caregiver. Current Discharge Plan: independent with home exercise program Anticipate discharge by TBD RECOMMENDATION: Next visit to focus on stair training and outdoor ambulation if able See intervention summary for intervention/education details. [facility] Work Phone: [phone]) 821-689909-16-2024 Telephone encounter Note* Telephone Encounter - Frances Vann PTA - 07/27/2024 11:28 AM EDT Unmade PT visit today due to patients being admitted to hospital. [facility] Work Phone: 1(472) 679-926809-16-2024 Miscellaneous Notes* Telephone Encounter - Frances Vann PTA - 07/27/2024 11:28 AM EDT Unmade PT visit today due to patients being admitted to hospital. documented in this encounterMem[facility]24 Miscellaneous Notes* CARE COORDINATION - Rachel Baker RN - 07/23/2024 3:35 PM EDT Medication review completed. No ineffective drug therapy, significant side effects, significant drug interactions, duplicate drug therapy, or noncompliance with drug therapy noted. Patient reports taking Eliquis 2 times daily not listed on medication list. Called PCP Dr. De La Garza's office to confirm. Eliquis added to medication list. Rachel Baker RN documented in this encounterMemorial [facility]09-12-[facility] Patient's home Note* CARE COORDINATION - Rachel Baker RN - 07/23/2024 3:35 PM EDT Medication review completed. No ineffective drug therapy, significant side effects, significant drug interactions, duplicate drug therapy, or noncompliance with drug therapy noted. Patient reports taking Eliquis 2 times daily not listed on medication list. Called PCP Dr. De La Garza's office to confirm. Eliquis added to medication list. Rachel Baker RN [facility] Work Phone: 1(725) 915-689009-12-2024 Miscellaneous Notes* OT EVALUATION/REASSESSMENT/RECERT - Felicia Caicedo OT - 07/23/2024 7:10 AM EDT SITUATION: Pt lying in bed upon arrival in no apparent distress. spouse present during today's visit. patient reports the following since the last homecare visit: medications/allergies--no changes, no fall. BACKGROUND: Diagnoses or reason for home care: Pt went to spine doctor for an epidural and during the procedurea blood clot ruptured. Pt is now under spinal precautions and in a cervical collar. Cystitis. Resume PT, OT, RECRUITMENT ASSISTANT per previous plan of care Valentina 07/19-07/21 Any one of the comorbidities from the list below may have a deleterious effect on the primary home care diagnosis. ACTIVE PROBLEM LIST Essential Hypertension A-Fib (Hcc) Anxiety Congenital Heart Disease Epidural Hematoma (Hcc) Hematoma, Epidural (Hcc) Mixed Hyperlipidemia Rheumatoid Arthritis Involving Multiple Sites (Hcc) Depression Pain of Cervical Spine Hypomagnesemia SPECIFIC ORDERS: - Precautions/Activity Restrictions: Weight Bearing or Precautions: spinal, Brace Gina horne - Start Cephalexin 500mg capsule PO TID on 07/22/24 - Follow up with PCP in 2 weeks ASSESSMENT: PLOF; Pt was Indep with self care, was ambulating community distances without a device, and was driving. She was taking care of all IADL and was managing meds, finances, and MD appoitnmadalid. Social Situation: Pt lives with spouse who is not in good health. Pt was acting as his 24 hour CG. Son is staying with pt for a week to assist. Has multiple family members who assist as needed. Pt pays to have yardwork done. Barriers: pain, decreased activity tolerance, strength, and balance. D/C Plan: To remain in her own home and get back to doing everything I was doing before. [facility]. Reviewed and explained homecare services. Plan of care, goals and visit frequency developed, reviewed, and agreed upon with patient and/or caregiver. Patient identified goals: to be able to walk. Therapist educated pt on falls prevention and spinal precautions. Pt demo abilty to follow during functional tasks. Therapist recommended having someone with pt when she performs showering tasks and she reports her family will be there for this. Pt scored 85/100 on the Modified Denny Index. She currently is at a sup to Indep level for ADL and transfers. Rafaeliy is providing assist when needed. Pt declines further skilled OT services at this time 1 time eval only. Current Discharge Plan:remain in community with/without caregiver support. Anticipate discharge by 07/23/24 RECOMMENDATION: Plan for next visit to focus on n/a- 1 time eval only. Pt declines further skilled OT services.. See intervention summary for intervention/education details. documented in this encounterMem[facility]09-[facility] Patient's home Note* OT EVALUATION/REASSESSMENT/RECERT - Felicia Caicedo OT - 07/23/2024 7:10 AM EDT SITUATION: Pt lying in bed upon arrival in no apparent distress. spouse present during today's visit. patient reports the following since the last homecare visit: medications/allergies--no changes, no fall. BACKGROUND: Diagnoses or reason for home care: Pt went to spine doctor for an epidural and during the procedurea blood clot ruptured. Pt is now under spinal precautions and in a cervical collar. Cystitis. Resume PT, OT, RECRUITMENT ASSISTANT per previous plan of care Valentina 07/19-07/21 Any one of the comorbidities from the list below may have a deleterious effect on the primary home care diagnosis. ACTIVE PROBLEM LIST Essential Hypertension A-Fib (Hcc) Anxiety Congenital Heart Disease Epidural Hematoma (Hcc) Hematoma, Epidural (Hcc) Mixed Hyperlipidemia Rheumatoid Arthritis Involving Multiple Sites (Hcc) Depression Pain of Cervical Spine Hypomagnesemia SPECIFIC ORDERS: - Precautions/Activity Restrictions: Weight Bearing or Precautions: spinal, Brace Gina coffmany - Start Cephalexin 500mg capsule PO TID on 07/22/24 - Follow up with PCP in 2 weeks ASSESSMENT: PLOF; Pt was Indep with self care, was ambulating community distances without a device, and was driving. She was taking care of all IADL and was managing meds, finances, and MD appnicolastwaylon. Social Situation: Pt lives with spouse who is not in good health. Pt was acting as his 24 hour CG. Son is staying with pt for a week to assist. Has multiple family members who assist as needed. Pt pays to have yardwork done. Barriers: pain, decreased activity tolerance, strength, and balance. D/C Plan: To remain in her own home and get back to doing everything I was doing before. [facility]. Reviewed and explained homecare services. Plan of care, goals and visit frequency developed, reviewed, and agreed upon with patient and/or caregiver. Patient identified goals: to be able to walk. Therapist educated pt on falls prevention and spinal precautions. Pt demo abilty to follow during functional tasks. Therapist recommended having someone with pt when she performs showering tasks and she reports her family will be there for this. Pt scored 85/100 on the Modified Denny Index. She currently is at a sup to Indep level for ADL and transfers. Reay is providing assist when needed. Pt declines further skilled OT services at this time 1 time eval only. Current Discharge Plan:remain in community with/without caregiver support. Anticipate discharge by 07/23/24 RECOMMENDATION: Plan for next visit to focus on n/a- 1 time eval only. Pt declines further skilled OT services.. See intervention summary for intervention/education details. [facility] Work Phone: 1(776) 807-834109-11-2024 Miscellaneous Notes* HH PT SOC/ROMA/FOLLOW UP/OTHER - Chevy Hernandez, PT - 07/22/2024 2:30 PM EDT SITUATION: spouse and son present during today's visit. patient reports she is tired today. Reports she wants to get better so she can take care of her who has Parkinsons. BACKGROUND: Diagnoses (reason for Home Care): hospital admission to [facility] on 07/19/24-07/21/24. pt had a cervical epidural on 07/08 then presented to the ER on 07/09 with difficulty walking, slurred speech and weakness Diagnoses (reason for Home Care): [facility] 07/09/24 on 07/13/24. Encounter for other orthopedic aftercare SURGERY/PROCEDURE: 1. T1-T5 laminectomy. 2. Evacuation of epidural hematoma. 3. Insertion of subfascial drain. ACTIVE PROBLEM LIST Punctate Keratitis of Both Eyes Vortex Keratopathy, Bilateral Essential Hypertension Pseudophakia of Both Eyes A-Fib (Hcc) Mixed Hyperlipidemia Rheumatoid Arthritis Involving Multiple Sites (Hcc) Depression Pain of Cervical Spine Hypomagnesemia SPECIFIC ORDERS - Equipment Owned: Cane, Walker, Shower Chair - PRECAUTIONS Spine, Brace Gina horne, log roll, PRIYA - Wound location: Incision Neck Posterior , Wound care: - Keep waterproof dressing on for 5 days until 07/16, then leave open to air - Wound location: Buttock , Wound care: Foam- Adhesive ASSESSMENT: [facility]. Reviewed and explained homecare services. Plan of care, goals, and visit frequency developed, reviewed, and agreed upon with patient and/or caregiver. Patient Goal: to get back to her independent life Patient will benefit from continued physical therapy to address the following deficits: strength, balance, gait, transfers, stair negotiation and bed mobility. Current Discharge Plan: independent with home exercise program. Anticipate discharge by TBD. RECOMMENDATION: Next visit to focus on progress HEP and functional mobility as tolerated Agreeable to PT, OT and RECRUITMENT ASSISTANT; declining NA. See intervention summary for intervention/education details. documented in this encounterMem[facility]09-11-[facility]24 Patient's home Note* HH PT SOC/ROMA/FOLLOW UP/OTHER - Chevy Hernandez PT - 07/22/2024 2:30 PM EDT SITUATION: spouse and son present during today's visit. patient reports she is tired today. Reports she wants to get better so she can take care of her who has Parkinsons. BACKGROUND: Diagnoses (reason for Home Care): hospital admission to [facility] on 07/19/24-07/21/24. pt had a cervical epidural on 07/08 then presented to the ER on 07/09 with difficulty walking, slurred speech and weakness Diagnoses (reason for Home Care): [facility] 07/09/24 on 07/13/24. Encounter for other orthopedic aftercare SURGERY/PROCEDURE: 1. T1-T5 laminectomy. 2. Evacuation of epidural hematoma. 3. Insertion of subfascial drain. ACTIVE PROBLEM LIST Punctate Keratitis of Both Eyes Vortex Keratopathy, Bilateral Essential Hypertension Pseudophakia of Both Eyes A-Fib (Hcc) Mixed Hyperlipidemia Rheumatoid Arthritis Involving Multiple Sites (Hcc) Depression Pain of Cervical Spine Hypomagnesemia SPECIFIC ORDERS - Equipment Owned: Cane, Walker, Shower Chair - PRECAUTIONS Spine, Brace Gina horne, log roll, PRIYA - Wound location: Incision Neck Posterior , Wound care: - Keep waterproof dressing on for 5 days until 07/16, then leave open to air - Wound location: Buttock , Wound care: Foam- Adhesive ASSESSMENT: [facility]. Reviewed and explained homecare services. Plan of care, goals, and visit frequency developed, reviewed, and agreed upon with patient and/or caregiver. Patient Goal: to get back to her independent life Patient will benefit from continued physical therapy to address the following deficits: strength, balance, gait, transfers, stair negotiation and bed mobility. Current Discharge Plan: independent with home exercise program. Anticipate discharge by TBD. RECOMMENDATION: Next visit to focus on progress HEP and functional mobility as tolerated Agreeable to PT, OT and RECRUITMENT ASSISTANT; declining NA. See intervention summary for intervention/education details. [facility] Work Phone: 1(208) 442-730009-10-2024 Telephone encounter Note* Telephone Encounter - Dory العراقي LPN - 07/21/2024 2:[address] De La Garza's office, spoke with Roberta, advised we will be resuming care on 07/23/24. She confirmed and will Dr De La Garza know. [facility] Work Phone: [phone]) [phone] Miscellaneous Notes* Telephone Encounter - Dory العراقي LPN - 07/21/2024 2:[address] De La Garza's office, spoke with Roberta, advised we will be resuming care on 07/23/24. She confirmed and will Dr De La Garza know. documented in this encounterMemorial [facility]09-10-2024 [facility] Medical Records Department [address] [place] [id number] Discharge Summary 07/21/24 1319 MR#: [id number] Acct: [id number] Name: RUBEN LOBO Rep #: [id number] : 1945 79 From: Yahir Thrasher DO PCP: Dr. Rip De La Garza MD Status:DIS IN Location: [facility] GE[facility]-2 Providers Date of Admission: 07/19/24 Date of Discharge: 07/21/24 Primary Care Physician: Dr. Rip De La Garza MD Consultations 07/20/24 03:27 Consult: Onc/Wound/zipper machine operator Routine Comment: Reason for Consult:: chronic wounds on upper buttocks/lower back that come and go Reason For Visit: UTI Diagnosis Discharge Diagnosis (1) Postoperative hematoma: Status: Acute Plan 1. Acute cystitis #2 status postevacuation of hematoma of the upper thoracic spinal area #3 paroxysmal [id number] is on metoprolol and Eliquis #4 chronic depression-patient is on Zoloft #5 acute anemia-etiology unclear Total clinical time spent by myself addressing the patient's medical issues, reviewing all of her data, and collaborating with patient's care team: 35 minutes Medications at Discharge Home Medications pantoprazole 40 mg tablet,delayed release 40 mg PO DAILY 12/14/20 sertraline 100 mg tablet 100 mg PO QHS 12/14/20 magnesium 200 mg tablet 100 mg PO DAILY 12/18/23 acetaminophen 500 mg tablet 1,000 mg PO Q8 PRN Pain 12/20/23 metoprolol tartrate 50 mg tablet 50 mg PO BID This is a dose increase #180 tabs 03/02/24 apixaban 5 mg tablet (Eliquis) 5 mg PO BID #180 tabs 04/07/24 cholecalciferol (vitamin D3) 50 mcg (2,000 unit) capsule 50 mcg PO DAILY 07/19/24 diltiazem HCl 120 mg capsule,extended release 24 hr 120 mg PO DAILY BLOOD PRESSURE AND HEART 07/19/24 tramadol 50 mg tablet 50 mg PO Q4H PRN pain 07/19/24 cephalexin 500 mg capsule 500 mg PO TID #15 caps 07/21/24 hydrocodone-acetaminophen 5-325mg 5mg-325mg 1 tab PO Q6H PRN pain 4 days #14 tabs 07/21/24 Hospital Course Operations None Procedures None Summary of Care Provided Minutes Spent on Discharge: 31 Hospital Course: This 79-year-old white female was seen in the emergency room at [facility] with complaints of increased pain in her upper right back area. Patient recently underwent surgery for an epidural hematoma that resulted from a cervical epidural injection. She had been discharged from the hospital approximately 10 days ago with Tylenol for pain and she has been wearing a rigid cervical collar. Patient also complained of generalized weakness, she denied any fevers or chills. Emergency room physician contacted the patient's physician who performed her surgery on 07/09/2024, it appeared that the patient had a T1-T5 laminectomy with evacuation of an epidural hematoma. Labs were obtained in the emergency room to rule out any postoperative infection, white blood cell count was elevated at 15.4, hemoglobin was 11.1, lactic acid was elevated at 2.4, urinalysis was obtained and was concerning for an infection with positive nitrite and +3 bacteria on a straight cath sample. The ER physician spoke with the patient's surgeon, the patient's surgeon did not feel that the patient needed to be transferred back to [facility] where the surgery had been performed and instead the patient was admitted to the hospital here for uncontrolled pain and acute cystitis. Patient was given IV antibiotics and pain medications, her back pain improved during her hospitalization, urine culture grew out no organisms. Despite this result, I felt that the patient had a urinary tract infection and antibiotics were continued at the time of discharge home. Patient had a drop in her hemoglobin after she was admitted to the hospital, at the time of discharge it was stable however-etiology for the drop in hemoglobin was not understood. The patient's hemoglobin at the time of discharge from [facility] on 07/12/2024 was 11.2. On 07/21/2024, patient was seen and examined: On examination she appeared in good health and spirits, she does not appear to be in any distress. Vital signs as documented. Skin warm and dry and without overt rashes. Neck without JVD, thyroid appears normal, trachea is midline, neck is supple. Lungs clear, normal air movement was noted. Heart exam notable for regular rhythm, normal sounds and absence of murmurs, rubs or gallops. Abdomen unremarkable and without evidence of organomegaly, masses, or abdominal aortic enlargement, bowel sounds are present in all 4 quadrants, no abdominal tenderness was noted. Extremities nonedematous, no cyanosis was noted, no clubbing was noted. Neuro: Cranial nerves II through XII are grossly intact, no focal motor deficits were noted, sensation to light touch and pinprick is intact, motor exam 5/5 throughout. Psych: Patient is alert and oriented x3, she does not appear anxious or depressed, she does not appear agitated. Patie (more content not included)...[facility]09-10-2024 Telephone encounter Note* Telephone Encounter - Erin Chisholm - 07/21/2024 12:42 PM EDT Date/Time: 07/21/2024 12:42 PM Spoke with Jaxon @ phone #: [phone] - Preferred # for contact: [phone] Have you received help from a home care company in the last 60 days? [facility] Are you agreeable to [facility] services? yes What address will we be seeing you at? [address] [place] [id number] Do you have any upcoming appointments or things we need to schedule around? Not sure Do you have a teachable CG or can you manage your care independently? [facility] Work Phone: [phone] Miscellaneous Notes* Telephone Encounter - Erin Chisholm - 07/21/2024 12:42 PM EDT Date/Time: 07/21/2024 12:42 PM Spoke with Jaxon @ phone #: [phone] - Preferred # for contact: [phone] Have you received help from a home care company in the last 60 days? [facility] Are you agreeable to [facility] services? yes What address will we be seeing you at? [address] [place] [address] Do you have any upcoming appointments or things we need to schedule around? Not sure Do you have a teachable CG or can you manage your care independently? documented in this encounterMem[facility] Miscellaneous Notes* OT EVALUATION/REASSESSMENT/RECERT - Anna Alexandre, OTR/L - 07/17/2024 10:13 AM EDT SITUATION: spouse and sons present during today's visit. patient reports the following since the last homecarevisit: medications/allergies--no changes, no fall. Pt lives with spouse who has his own medical issues and is unable to assist pt - pt is typically his caregiver. Pt has son from out of stay who is here to assist as well as multiple other family members. Pt states they aren't left alone.Pt took tylenol during visit and used ice pack. Pt reports pain at 3-4 after taking tylenol. Pt reports she hasbeen doing her ADLs with supervision and feels like she doesn't need the RECRUITMENT ASSISTANT. BACKGROUND: Diagnoses or reason for home care: Encounter for other orthopedic aftercare SURGERY/PROCEDURE: T1-T5 laminectomy. Past medical history: HTN, A-Fib, HLD, Rheumatoid Arthritis, Depression, anxiety, CLARISSE Weight Bearing or Precautions: Gerson wyatt ASSESSMENT: Patient evaluated by [facility] Home[facility]. Reviewed and explained homecare services. Plan of care, goals and visit frequency developed, reviewed, and agreed upon with patient and/or caregiver. Patient identified goals: I want to get better. RECOMMENDATION: Plan for next visit to focus on n/a. OT instructed on the RPE scale during activities, pain management techniques and tub/shower transfers. Pt reports completing ADLs with supervision and having 24/7A from family members for assistance needed in all ADL/IADL tasks. OT recommended returning for further instruction on energy conservation education and modifiations for IADLs during recovery, thoughpt declined. OT evaluation only completed this date. See intervention summary for intervention/education details. documented in this encounterMemorial [facility] Patient's home Note* OT EVALUATION/REASSESSMENT/RECERT - Anna Alexandre OTR/L - 07/17/2024 10:13 AM EDT SITUATION: spouse and sons present during today's visit. patient reports the following since the last homecarevisit: medications/allergies--no changes, no fall. Pt lives with spouse who has his own medical issues and is unable to assist pt - pt is typically his caregiver. Pt has son from out of stay who is here to assist as well as multiple other family members. Pt states they aren't left alone.Pt took tylenol during visit and used ice pack. Pt reports pain at 3-4 after taking tylenol. Pt reports she hasbeen doing her ADLs with supervision and feels like she doesn't need the RECRUITMENT ASSISTANT. BACKGROUND: Diagnoses or reason for home care: Encounter for other orthopedic aftercare SURGERY/PROCEDURE: T1-T5 laminectomy. Past medical history: HTN, A-Fib, HLD, Rheumatoid Arthritis, Depression, anxiety, CLARISSE Weight Bearing or Precautions: Gerson wyatt ASSESSMENT: Patient evaluated by [facility] Homecare occupational therapy. Reviewed and explained homecare services. Plan of care, goals and visit frequency developed, reviewed, and agreed upon with patient and/or caregiver. Patient identified goals: I want to get better. RECOMMENDATION: Plan for next visit to focus on n/a. OT instructed on the RPE scale during activities, pain management techniques and tub/shower transfers. Pt reports completing ADLs with supervision and having 24/7A from family members for assistance needed in all ADL/IADL tasks. OT recommended returning for further instruction on energy conservation education and modifiations for IADLs during recovery, thoughpt declined. OT evaluation only completed this date. See intervention summary for intervention/education details. [facility] Work Phone: 1(207) 664-869309-05-2024 Miscellaneous Notes* PT ROUTINE/REASSESSMENT/RECERT/CASE MGMT - Pratima Veras, PT - 07/16/2024 3:01 PM EDT SITUATION: spouse present during today's visit. patient reports the following since the last homecare visit: medications/allergies--no changes, no fall. patient reports she's eager to get her dressing off its bugging me Pt reports that the son who came from [place] to help her is now in the hospital so her sisters areat the house today to help her . Pt had not called for her follow up appt. Assisted pt to call , but she ended up having to leave a message BACKGROUND:pt had a cervical epidural on 07/08 then presented to the ER on 07/09 with difficulty walking, slurred speech and weakness Diagnoses (reason for Home Care): [facility] 07/09/24 on 07/13/24. Encounter for other orthopedic aftercare SURGERY/PROCEDURE: 1. T1-T5 laminectomy. 2. Evacuation of epidural hematoma. 3. Insertion of subfascial drain. ACTIVE PROBLEM LIST Punctate Keratitis of Both Eyes Vortex Keratopathy, Bilateral Essential Hypertension Pseudophakia of Both Eyes A-Fib (Hcc) Mixed Hyperlipidemia Rheumatoid Arthritis Involving Multiple Sites (Hcc) Depression Pain of Cervical Spine Hypomagnesemia SPECIFIC ORDERS - Equipment Owned:Cane, Walker, Shower Chair - PRECAUTIONS Spine, Brace Gina horne, log roll, PRIYA - Wound location: Incision Neck Posterior , Wound care: - Keep waterproof dressing on for 5 days until 07/16, then leave open to air - Wound location: Buttock , Wound care: Foam- Adhesive - Follow up in 2 weeks after surgery for incision check/staple removal ASSESSMENT: Focus of visit dressing removal . Incision 195 cm with 39 aylin. Clean , dry , well approximated . With pts permission a photo was uploaded to [employer] for MD to review Pts sister found a RW in the garage. Adjusted to her ht and instr in use Instr in standing HEP , gave written handout Plan of care, goals, and visit frequency reviewed and agreed upon with patient and/or caregiver. Current Discharge Plan: independent with home exercise program Anticipate discharge by 08/08/24 RECOMMENDATION: Next visit to focus on ther ex, gait, balance See intervention summary for intervention/education details. documented in [facility] encounter[facility] Patient's home Note* PT ROUTINE/REASSESSMENT/RECERT/CASE MGMT - Pratima Veras, PT - 07/16/2024 3:01 PM EDT SITUATION: spouse present during today's visit. patient reports the following since the last homecare visit: medications/allergies--no changes, no fall. patient reports she's eager to get her dressing off its bugging me Pt reports that the son who came from [place] to help her is now in the hospital so her sisters areat the house today to help her . Pt had not called for her follow up appt. Assisted pt to call , but she ended up having to leave a message BACKGROUND:pt had a cervical epidural on 07/08 then presented to the ER on 07/09 with difficulty walking, slurred speech and weakness Diagnoses (reason for Home Care): [facility] 07/09/24 on 07/13/24. Encounter for other orthopedic aftercare SURGERY/PROCEDURE: 1. T1-T5 laminectomy. 2. Evacuation of epidural hematoma. 3. Insertion of subfascial drain. ACTIVE PROBLEM LIST Punctate Keratitis of Both Eyes Vortex Keratopathy, Bilateral Essential Hypertension Pseudophakia of Both Eyes A-Fib (Hcc) Mixed Hyperlipidemia Rheumatoid Arthritis Involving Multiple Sites (Hcc) Depression Pain of Cervical Spine Hypomagnesemia SPECIFIC ORDERS - Equipment Owned:Cane, Walker, Shower Chair - PRECAUTIONS Spine, Brace Gina horne, log faraz, PRIYA - Wound location: Incision Neck Posterior , Wound care: - Keep waterproof dressing on for 5 days until Th07/16, then leave open to air - Wound location: Buttock , Wound care: Foam- Adhesive - Follow up in 2 weeks after surgery for incision check/staple removal ASSESSMENT: Focus of visit dressing removal . Incision 195 cm with 39 aylin. Clean , dry , well approximated . With pts permission a photo was uploaded to [employer] for MD to review Pts sister found a RW in the garage. Adjusted to her ht and instr in use Instr in standing HEP , gave written handout Plan of care, goals, and visit frequency reviewed and agreed upon with patient and/or caregiver. Current Discharge Plan: independent with home exercise program Anticipate discharge by 08/08/24 RECOMMENDATION: Next visit to focus on ther ex, gait, balance See intervention summary for intervention/education details. [facility] Work Phone: 1(233) 593-305709-05-2024 Miscellaneous Notes* CARE COORDINATION - Rachel Baker RN - 07/16/2024 10:00 AM EDT Medication review completed. No ineffective drug therapy, significant side effects, significant drug interactions, duplicate drug therapy, or noncompliance with drug therapy noted. SOC clinician reported the following. Patient not taking Amiodarone. Patient taking Metoprolol Tartrate 50 mg BID not listed on medication list. Per PCP outside record medication list Metoprolol present and Amiodarone is not. Updated medication list. Rachel Baker RN documented in this encounterMem[facility] Patient's home Note* CARE COORDINATION - Rachel Baker RN - 07/16/2024 10:00 AM EDT Medication review completed. No ineffective drug therapy, significant side effects, significant drug interactions, duplicate drug therapy, or noncompliance with drug therapy noted. SOC clinician reported the following. Patient not taking Amiodarone. Patient taking Metoprolol Tartrate 50 mg BID not listed on medication list. Per PCP outside record medication list Metoprolol present and Amiodarone is not. Updated medication list. Rachel Baker RN [facility] Work Phone: [phone]) 757-306809-04-2024 Miscellaneous Notes* HH PT SOC/ROMA/FOLLOW UP/OTHER - Pratima Veras, PT - 07/15/2024 9:31 AM EDT SITUATION: spouse and son present during today's visit. patient reports this really hurts, its kind of a crazy situation . BACKGROUND:pt had a cervical epidural on 07/08 then presented to the ER on 07/09 with difficulty walking, slurred speech and weakness Diagnoses (reason for Home Care): [facility] 07/09/24 on 07/13/24. Encounter for other orthopedic aftercare SURGERY/PROCEDURE: 1. T1-T5 laminectomy. 2. Evacuation of epidural hematoma. 3. Insertion of subfascial drain. ACTIVE PROBLEM LIST Punctate Keratitis of Both Eyes Vortex Keratopathy, Bilateral Essential Hypertension Pseudophakia of Both Eyes A-Fib (Hcc) Mixed Hyperlipidemia Rheumatoid Arthritis Involving Multiple Sites (Hcc) Depression Pain of Cervical Spine Hypomagnesemia SPECIFIC ORDERS - Equipment Owned: Cane, Walker, Shower Chair - PRECAUTIONS Spine, Brace Gina horne, log roll, PRIYA - Wound location: Incision Neck Posterior , Wound care: - Keep waterproof dressing on for 5 days until 07/16, then leave open to air - Wound location: Buttock , Wound care: Foam- Adhesive - Follow up in 2 weeks after surgery for incision check/staple removal ASSESSMENT: Patient evaluated by [facility] Homecare physical therapy. Reviewed and explained homecare services. Plan of care, goals, and visit frequency developed, reviewed, and agreed upon with patient and/or caregiver. Patient Goal: get back to myself again Patient will benefit from continued physical therapy to address the following deficits: strength, balance, gait, transfers, stair negotiation and bed mobility. Current Discharge Plan: independent with home exercise program. Anticipate discharge by 08/08/24. RECOMMENDATION: Next visit to focus on dressing removal, ther ex, gait, transfers Agreeable to PT, OT and RECRUITMENT ASSISTANT; declining none. See intervention summary for intervention/education details. documented in this encounterMem[facility] Patient's home Note* PT SOC/ROMA/FOLLOW UP/OTHER - Pratima Veras PT - 07/15/2024 9:31 AM EDT SITUATION: spouse and son present during today's visit. patient reports this really hurts, its kind of a crazy situation . BACKGROUND:pt had a cervical epidural on 07/08 then presented to the ER on 07/09 with difficulty walking, slurred speech and weakness Diagnoses (reason for Home Care): [facility] 07/09/24 on 07/13/24. Encounter for other orthopedic aftercare SURGERY/PROCEDURE: 1. T1-T5 laminectomy. 2. Evacuation of epidural hematoma. 3. Insertion of subfascial drain. ACTIVE PROBLEM LIST Punctate Keratitis of Both Eyes Vortex Keratopathy, Bilateral Essential Hypertension Pseudophakia of Both Eyes A-Fib (Hcc) Mixed Hyperlipidemia Rheumatoid Arthritis Involving Multiple Sites (Hcc) Depression Pain of Cervical Spine Hypomagnesemia SPECIFIC ORDERS - Equipment Owned: Cane, Walker, Shower Chair - PRECAUTIONS Spine, Brace Gina horne, log roll, PRIYA - Wound location: Incision Neck Posterior , Wound care: - Keep waterproof dressing on for 5 days until 07/16, then leave open to air - Wound location: Buttock , Wound care: Foam- Adhesive - Follow up in 2 weeks after surgery for incision check/staple removal ASSESSMENT: Patient evaluated by [facility] Homecare physical therapy. Reviewed and explained homecare services. Plan of care, goals, and visit frequency developed, reviewed, and agreed upon with patient and/or caregiver. Patient Goal: get back to myself again Patient will benefit from continued physical therapy to address the following deficits: strength, balance, gait, transfers, stair negotiation and bed mobility. Current Discharge Plan: independent with home exercise program. Anticipate discharge by 08/08/24. RECOMMENDATION: Next visit to focus on dressing removal, ther ex, gait, transfers Agreeable to PT, OT and RECRUITMENT ASSISTANT; declining none. See intervention summary for intervention/education details. [facility] Work Phone: 1(575) 602-106409-03-2024 Telephone encounter Note* Telephone Encounter - Nasrin Lezama LPN - 07/14/2024 11:07 AM EDT Date/Time: 07/14/2024 11:07 AM Spoke with Ruben @ phone #: [phone] - Preferred # for contact: [phone] Have you received help from a home care company in the last 60 days? No Are you agreeable to [facility] services? Yes What address will we be seeing you at? [address] [place], [place] [id number] Do you have any upcoming appointments or things we need to schedule around? No Do you have a teachable CG or can you manage your care independently? Independent with care . [facility] Work Phone: [phone]) 124-977309-03-2024 Miscellaneous Notes* Telephone Encounter - Nasrin Lezama LPN - 07/14/2024 11:07 AM EDT Date/Time: 07/14/2024 11:07 AM Spoke with Ruben @ phone #: [phone] - Preferred # for contact: [phone] Have you received help from a home care company in the last 60 days? No Are you agreeable to [facility] services? Yes What address will we be seeing you at? [address] [place] [id number] Do you have any upcoming appointments or things we need to schedule around? No Do you have a teachable CG or can you manage your care independently? Independent with care . documented in this encounterMem[facility] Telephone encounter Note * Telephone Encounter - Flavia Dawson LPN - 07/13/2024 11:45 AM EDT Unable to leave message to follow for home care due to holiday. Flavia Dawson LPN July 13, 2024 11:45 AM [facility]09-02-2024 Miscellaneous Notes* Telephone Encounter - Flavia Dawson LPN - 07/13/2024 11:45 AM EDT Unable to leave message to follow for home care due to holiday. Flavia Dawson LPN July 13, 2024 11:45 AM documented in this encounterMemorial [facility]-2024 NoteHNO ID: [id number] Author: SEE JOYCE LISW Service: Care Management Author Type: Low Raw Sugar Cutter Type: Care Mgt Progress Note Filed: 07/13/2024 10:50 Note Text: Summary: Discharge Planning CARE MANAGEMENT DISCHARGE NOTE SERVICE DATE: July 13, 2024 SERVICE TIME: 10:28 AM Admission Date: 07/09/2024 LOS: 4 days Discharge Arrangement Services Arranged Provider Name: [facility] Phone: see below Caregiver Assessment Transportation Arrangements Transportation Arrangements: Car Date of Trip: 07/13/24 Time of Trip: 1600 Destination: Home Handoff Communication: Additional Information: Pt will d/c to home with [facility] for home therapy. Pt has necessary dme at baseline. Pt and family agreeable for d/c plan. Spouse to transport. Case closed Discharge Information Row Name Admission (Current) from 07/09/2024 in MR [id number] MED/SURG Home Health Care Agency [facility] Home Care Start of Care 07/14/24 start of care will be in the next 24-48 hours after you are discharged SIGNATURE: SHOBHA Doss PATIENT NAME: Ruben Lobo DATE: July 13, 2024 TIME: 10:28 AM CONTACT #: [phone] NoteHNO ID: [id number] Author: SEE JOYCE LISW Service: Care Management Author Type: Low Raw Sugar Cutter Type: Care Mgt Progress Note Filed: 07/12/2024 13:49 Note Text: Summary: Discharge Planning CARE MANAGEMENT PROGRESS NOTE SERVICE DATE: 07/12/2024 SERVICE TIME: 1:48 PM LOS: 3 days [place] of Choice Given: Yes Level of Care Discussed: Home Care Financial Disclosure Provided: Yes Provider List: Home Care Provider list within the patient's requested geographic area shared with the patient/family: Yes within: 20 miles of zip code: [address] Quality and resource use metrics shared with the patient that are relevant to the patient's goals of care and treatment preferences:: Yes Pt gave choice for [facility] home care. Referral sent. Encouraged additional choices as able. Will follow for [facility] set up. SIGNATURE: SHOBHA Doss PATIENT NAME: Ruben Lobo DATE: July 12, 2024 TIME: 1:48 PM PAGER/CONTACT #: [phone]09-01-2024 Note HNO ID: [id number] Author: SEE JOYCE LISW Service: Care Management Author Type: Low Raw Sugar Cutter Type: Care Mgt Progress Note Filed: 07/12/2024 12:08 Note Text: Summary: Discharge Planning Update Note: D/c plan recommended for [facility] for home therapy. Pt,spouse, son rip notified and in agreement. Pt to given FOC as soon as able. Pt has necessary DME at baseline. 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 She was given resources to assist with this concern. Will continue to follow for [facility] set up. Family to transport at discharge.[facility] NoteHNO ID: [id number] Author: REGI RIOJAS MD Service: Hospital Medicine Author Type: Physician Type: Progress Notes Filed: 07/12/2024 01:59 Note Text: HOSPITALIST SERVICE DAILY PROGRESS NOTE PRIMARY CARE PHYSICIAN: Rip De La Garza MD Sign off: 79-year-old lady with known history of paroxysmal atrial fibrillation on Eliquis, anxiety, depression, CLARISSE on CPAP, hyperlipidemia presented to the hospital with cervical spine pain after steroid injection she received on 07/08/2024. She also had neurological deficits. MRI showed hematoma in the cervical spine. She is s/p T1-T5 laminectomy/hematoma evacuation. She was in the ICU and was downgraded on 07/11/2024. She continues to have drain. Neurosurgery following. SUBJECTIVE: Patient was seen and examined this morning, sleeping in bed, no acute distress, no acute events overnight. Continue to follow recommendations from neurosurgery regarding duration of drain status post T1-T5 laminectomy with hematoma evacuation. PHYSICAL EXAM: BP 133/87 Pulse 115 Temp (Src) 98.1 (Oral) Resp 16 Ht 5' 1 (1.55m) Wt 119 lb 11.4 oz (54.3kg) SpO2 91% BMI 22.63 kg/(m2). O2 Therapy: Room Air DATA: Intake/Output Summary (Last 24 hours) at 07/12/2024 0155 Last data filed at 07/11/2024 1426 Gross per 24 hour Intake -- Output 350 ml Net -350 ml Current Facility-Administered Medications Medication Dose Route Frequency Provider Last Rate Last Admin pantoprazole DR 40 mg tab(s) (PROTONIX) 40 mg ORAL DAILY (6 AM) García Snow APRN.EMERGENCY PLANNING AND RESPONSE MANAGER 40 mg at 07/11/24 0511 dilTIAZem CD 120 mg cap(s) (CARDIZEM CD, CARTIA XT) 120 mg ORAL DAILY García Snow APRN.EMERGENCY PLANNING AND RESPONSE MANAGER 120 mg at 07/11/24 0850 potassium chloride ER 20-40 mEq tab(s) (KLOR-CON) 20-40 mEq ORAL/FEEDING TUBE PRN García Snow APRN.EMERGENCY PLANNING AND RESPONSE MANAGER Or potassium chloride iv piggyback 20 mEq/100 mL 20 mEq INTRAVENOUS PRN García Snow APRN.EMERGENCY PLANNING AND RESPONSE MANAGER phosphorus 500 mg tab(s) (K PHOS NEUTRAL) 500 mg ORAL/FEEDING TUBE PRN(NO DISPENSE) García Snow APRN.EMERGENCY PLANNING AND RESPONSE MANAGER magnesium sulfate iv piggyback in sterile water 2 g 50 mL 2 g INTRAVENOUS PRN García Snow APRN.EMERGENCY PLANNING AND RESPONSE MANAGER NaCl 0.9% iv flush bag 20 mL INTRAVENOUS PRN Neidert, García Taj, COUNTING MACHINE OPERATOR.EMERGENCY PLANNING AND RESPONSE MANAGER albuterol 2.5 mg /3 mL (0.083 %) 2.5 mg (PROVENTIL) 2.5 mg INHALATION q 4 H PRN García Snow APRN.EMERGENCY PLANNING AND RESPONSE MANAGER ondansetron 4 mg tab(s) (ZOFRAN) 4 mg ORAL q 6 H PRN García Snow APRN.EMERGENCY PLANNING AND RESPONSE MANAGER Or ondansetron (PF) 4 mg injection (ZOFRAN) 4 mg INTRAVENOUS q 6 H PRN García Snow APRN.EMERGENCY PLANNING AND RESPONSE MANAGER 4 mg at 07/09/24 1257 docusate sodium 200 mg cap(s) (COLACE) 200 mg ORAL BID García Snow APRN.EMERGENCY PLANNING AND RESPONSE MANAGER 200 mg at 07/11/242022 magnesium hydroxide 400 mg/5 mL 30 mL (MOM) 30 mL ORAL/FEEDING TUBE DAILY PRN García Snow APRN.EMERGENCY PLANNING AND RESPONSE MANAGER sertraline 100 mg tab(s) (ZOLOFT) 100 mg ORAL AT BEDTIME García Snow APRN.EMERGENCY PLANNING AND RESPONSE MANAGER 100 mg at 07/11/242022 bisacodyl EC 10 mg tab(s) (DULCOLAX) 10 mg ORAL DAILY PRN García Snow APRN.EMERGENCY PLANNING AND RESPONSE MANAGER bisacodyl 10 mg suppository (DULCOLAX) 10 mg RECTAL DAILY PRN García Snow APRN.EMERGENCY PLANNING AND RESPONSE MANAGER ceFAZolin iv piggyback 2 g in D5W (iso-osmotic) 100 mL (ANCEF) 2 g INTRAVENOUS q 6 HR García Snow APRN.EMERGENCY PLANNING AND RESPONSE MANAGER Stopped at 07/12/24 0008 polyethylene glycol 3350 17 g packet 17 g ORAL DAILY García Snow APRN.EMERGENCY PLANNING AND RESPONSE MANAGER 17 g at 07/11/24 0850 morphine 4 mg injection 4 mg INTRAVENOUS q 2 H PRN García Snow APRN.EMERGENCY PLANNING AND RESPONSE MANAGER 4 mg at 07/11/24 1419 oxyCODONE-acetaminophen 5-325 mg 1 tablet (PERCOCET) 1 tablet ORAL q 4 H PRN García Snow APRN.EMERGENCY PLANNING AND RESPONSE MANAGER 1 tablet at 07/11/24 1731 oxyCODONE-acetaminophen 5-325 mg 2 tablet (PERCOCET) 2 tablet ORAL q 4 H PRN García Snow APRN.EMERGENCY PLANNING AND RESPONSE MANAGER 2 tablet at 07/11/24 1229 tiZANidine 4 mg tab(s) (ZANAFLEX) 4 mg ORAL q 8 H PRN García Snow APRN.EMERGENCY PLANNING AND RESPONSE MANAGER acetaminophen 650 mg tab(s) (TYLENOL) 650 mg ORAL q 6 H PRN García Snow APRN.EMERGENCY PLANNING AND RESPONSE MANAGER 650 mg at 07/09/242031 Recent Results (from the past 36 hour(s)) COMPLETE BLOOD COUNT AND DIFFERENTIAL Collection Time: 07/11/24 6:01 AM Result Value Ref Range WBC 8.47 3.70 - 11.00 k/uL RBC 3.86 (L) 3.90 - 5.20 m/uL Hemoglobin 11.2 (L) 11.5 - 15.5 g/dL Hematocrit 35.5 (L) 36.0 - 46.0 % MCV 92.0 80.0 - 100.0 fL MCH 29.0 26.0 - 34.0 pg MCHC 31.5 30.5 - 36.0 g/dL RDW-CV 15.7 (H) 11.5 - 15.0 % Platelet Count 96 (L) 150 - 400 k/uL MPV 11.6 9.0 - 12.7 fL Neutrophils % 80.9 % Abs Neut 6.85 1.45 - 7.50 k/uL Lymphocytes % 7.2 % Abs Lymph 0.61 (L) 1.00 - 4.00 k/uL Monocytes % 10.7 % Abs [place] 0.91 (H) <0.87 k/uL Eosinophils % 0.0 % Abs Eosin <0.03 <0.46 k/uL Basophils % 0.1 % Abs Baso <0.03 <0.11 k/uL Immature Granulocytes % 1.1 % Abs Immature Gran 0.09 <0.10 k/uL NRBC 0.0 /100 WBC Absolute nRBC <0.01 <0.01 k/uL Diff Type Auto BASIC METABOLIC PANEL Collection Time: 07/11/24 6:01 AM Result Value Ref Range (more content not included)...[facility]08-31-2024 NoteHNO ID: [id number] Author: TONYA HENNESSY MD Service: Hospital Medicine Author Type: Physician Type: Progress Notes Filed: 07/11/2024 14:35 Note Text: INPATIENT PROGRESS NOTE SERVICE DATE: 07/11/2024 SERVICE TIME: 9:32 AM PRIMARY SERVICE: Hospital Medicine Subjective INTERVAL HPI: No acute events overnight. Patient continued to have drainage from the drain. Patient was evaluated at the bedside. Patient reported having 5-6 pain on resting and 8-9/10 with breathing. No other complaints. Current Facility-Administered Medications Medication Dose Route Frequency potassium chloride ER 20-40 mEq tab(s) (KLOR-CON) 20-40 mEq ORAL/FEEDING TUBE PRN Or potassium chloride iv piggyback 20 mEq/100 mL 20 mEq INTRAVENOUS PRN phosphorus 500 mg tab(s) (K PHOS NEUTRAL) 500 mg ORAL/FEEDING TUBE PRN(NO DISPENSE) magnesium sulfate iv piggyback in sterile water 2 g 50 mL 2 g INTRAVENOUS PRN NaCl 0.9% iv flush bag 20 mL INTRAVENOUS PRN albuterol 2.5 mg /3 mL (0.083 %) 2.5 mg (PROVENTIL) 2.5 mg INHALATION q 4 H PRN ondansetron 4 mg tab(s) (ZOFRAN) 4 mg ORAL q 6 H PRN Or ondansetron (PF) 4 mg injection (ZOFRAN) 4 mg INTRAVENOUS q 6 H PRN docusate sodium 200 mg cap(s) (COLACE) 200 mg ORAL BID magnesium hydroxide 400 mg/5 mL 30 mL (MOM) 30 mL ORAL/FEEDING TUBE DAILY PRN sertraline 100 mg tab(s) (ZOLOFT) 100 mg ORAL AT BEDTIME bisacodyl EC 10 mg tab(s) (DULCOLAX) 10 mg ORAL DAILY PRN bisacodyl 10 mg suppository (DULCOLAX) 10 mg RECTAL DAILY PRN ceFAZolin iv piggyback 2 g in D5W (iso-osmotic) 100 mL (ANCEF) 2 g INTRAVENOUS q 6 HR polyethylene glycol 3350 17 g packet 17 g ORAL DAILY morphine 4 mg injection 4 mg INTRAVENOUS q 2 H PRN oxyCODONE-acetaminophen 5-325 mg 1 tablet (PERCOCET) 1 tablet ORAL q 4 H PRN oxyCODONE-acetaminophen 5-325 mg 2 tablet (PERCOCET) 2 tablet ORAL q 4 H PRN tiZANidine 4 mg tab(s) (ZANAFLEX) 4 mg ORAL q 8 H PRN acetaminophen 650 mg tab(s) (TYLENOL) 650 mg ORAL q 6 H PRN amiodarone 200 mg tab(s) (PACERONE) 200 mg ORAL DAILY pantoprazole DR 40 mg tab(s) (PROTONIX) 40 mg ORAL DAILY (6 AM) dilTIAZem CD 120 mg cap(s) (CARDIZEM CD, CARTIA XT) 120 mg ORAL DAILY Objective PHYSICAL EXAM: BP 121/76 Pulse 105 Temp (Src) 98.3 (Oral) Resp 14 Ht 5' 1 (1.55m) Wt 119 lb 11.4 oz (54.3kg) SpO2 93% BMI 22.63 kg/(m2). O2 Therapy: Room Air, Liters: 0.0 Physical Exam Performed General-appears comfortable in no acute distress. [id number] in place, drain in place with drainage noted. Heart-normal rate and rhythm. S1 and S2 heard. No murmur/gallop/rub Lungs-clear to auscultation bilaterally. No wheezes/crackles Abdomen-soft and nontender. Normal bowel sounds. Neuro-alert and oriented x3. No gross neurological deficits. Extremities-warm and perfusing well. No pedal edema. DATA: Diagnostic tests reviewed for today's visit: DATA: LABORATORY TESTS: CBC: Recent Labs 07/11/24 0601 07/10/24 03507/09/24 005 WBC 8.47 13.29* 9.69 HB 11.2* 11.7 12.9 PLT 96* 95* 105* MCV 92.0 89.3 89.0 NEUTP 80.9 88.8 -- ABSNEUT 6.85 11.82* -- LYMPHP 7.2 3.5 -- EODINP 0.0 0.0 -- CHEM: Recent Labs 07/11/24 0601 07/10/24 0352 07/09/24 005 NA 137 137 139 K 4.3 4.2 4.0 CA 9.3 9.1 9.7 MG 1.9 2.1 1.7 P 1.8* 2.8 4.2 ANION <3* 4* 7 CHLOR 105 105 104 CO2 32 28 28 GLUC 136* 149* 150* BUN 18 15 15 CREAT 0.62 0.51 0.58 HEPATIC: Recent Labs 07/09/24 0059 ALT 10* AST 24 TBILI 1.0 ALKPHOS 70 ALB 3.8 TPROT 7.2 URINALYSIS: Recent Labs 07/09/24 0152 SPGR 1.014 UBACTERIA None Seen LEUKEST Negative UWBC 0-5 /HPF URBC 0-3 /HPF UHB Negative UPROT Negative UGLUC Negative UKET Trace* COAG: Recent Labs 07/09/24 0059 APTT 25.4 INR 1.0 CARDIAC: No results for input(s): CKMB, CKMBP, TROPT, PBNP in the last 168 hours. Most recent labs and imaging results. Assessment/Plan Sign off: 79-year-old lady with known history of paroxysmal atrial fibrillation on Eliquis, anxiety, depression, CLARISSE on CPAP, hyperlipidemia presented to the hospital with cervical spine pain after steroid injection she received on 07/08/2024. She also had neurological deficits. MRI showed hematoma in the cervical spine. She is s/p T1-T5 laminectomy/hematoma evacuation. She was in the ICU and was downgraded on 07/11/2024. She continues to have drain. Neurosurgery following. # Epidural hematoma: Presented with cervical spine pain, difficulty walking, slurred speech, weakness after steroid injection in the C-spine on 07/08/2024. MRI showed hematoma extending superiorly to the level of the posterior arch of C2 consistent with large epidural hematoma. She was taken to surgery. She is s/p T1-T5 laminectomy with hematoma evacuation. Neurosurgery on board. Recommended to continue the drain as long as she has drainage. Discussed with neurosurgery. Continue cefazolin 2 g every 6 hours as long as she has PRIYA drain in. Co (more content not included)...[facility]08-30-2024 NoteHNO ID: [id number] Author: GARCÍA SNOW APRN.CNP Service: Critical Care Author Type: Nurse Practitioner Type: Plan of Care Filed: 07/10/2024 11:50 Note Text: Reached out and discussed patient with Sagar Palmer (Neurosurgery). He is ok for patient be transferred to floors.[facility]08-30-2024 NoteHNO ID: [id number] Author: SHILOH NUNEZ RN Service: Care Management Author Type: Registered Nurse Type: Care Mgt Progress Note Filed: 07/10/2024 11:15 Note Text: CARE MANAGEMENT PROGRESS NOTE SERVICE DATE: 07/10/2024 SERVICE TIME: 1110 LOS: 1 day Post-Acute Discharge Planning Patient Goal(s): Be able to go home, General wellness [place] of Choice Explained: Discharge Planning Participant(s): Patient/Family Comments: Anticipated # of Days Until Discharge: Transport at Discharge: Needs Prior to Discharge: Needs Prior to Discharge: To Be Determined Post-Acute Discharge Plan: Chart reviewed. Patient came to the hospital from home with her for a steroid injection for back pain 07/08 at [facility]. Post procedure she had slurred speech and weakness. She had an MRI which showed a large hematoma vs epidural abscess. She was transferred to [facility] for a higher level of care. Neurosurgery is following and she had a T1-5 Laminectomy/ Hematoma evacuation 07/09. She has a C-collar and post op PRIYA drain. She is on IV antibiotics which per Neurosurgery note she will need to continue until the drain is removed. At this time her plan remiains to return home independently when medically cleared. She denies needing any HHC, therapy, DME, or rehab stays but is pending therapy evals. 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 Until HCPOA can be obtained and verified we will follow [place] NOK. Patient is legally but her has Parkinson's and Dementia- per patient he does not have capacity to make decisions and requires car dryer care. She has 2 adult biological children and they are legal NOK. They are listed below: Buck Hood (son) [phone] Rip Lobo (son) [phone] SIGNATURE: Shiloh Nunez RN PATIENT NAME: Ruben Lobo DATE: July 10, 2024 TIME: 11:10 AM PAGER/CONTACT #: [phone] Note HNO ID: [id number] Author: HAILE GONZALEZ DO Service: Critical Care Author Type: Physician Type: Progress Notes Filed: 07/10/2024 09:37 Note Text: PULMONARY/CRITICAL CARE INTENSIVE MEDICAL/SURGICAL CARE UNIT PROGRESS NOTE Patient Name: Ruben Lobo Account #: Data Unavailable Admission Date: 07/09/2024 Date of Evaluation: 07/10/2024 Time of Evaluation: 9:26 AM SUBJECTIVE Patient only complains about pain this morning. She wants to know when she can go home. VITALS 07/10/24 0600 07/10/24 0700 07/10/24 0744 07/10/24 0904 BP: 121/71 119/69 Pulse: 98 98 100 Resp: 14 19 25 Temp: 37.3 ?C (99.2 ?F) TempSrc: Oral SpO2: 98% 96% 95% Weight: Height: PHYSICAL EXAM Gen: Alert AND Oriented x 3, No acute distress HEENT: Normocephalic, Atraumatic, Pupils Equally Reactive to light and accomodation, moist mucous membranes, Neck: Supple, no rigidity, Trachea is midline, no Lymphadenopathy Lungs: Clear to Auscultation bilaterally , No wheezing, rhonchi or rales Heart: Regular Rate and Rhythm, Normal S1 and S2, no murmurs Abd: Soft, Nontender and nondistended, Positive Bowel Sounds x all four quadrants Ext: No edema, +2 pulses Neuro: CN II - XII grossly intact, 4/5 in the RLE ; C-Spine PRIYA Drain in place 24 hour Intake AND Output: Intake/Output Summary (Last 24 hours) at 07/10/2024 0926 Last data filed at 07/10/2024 0744 Gross per 24 hour Intake 3804.6 ml Output 1285 ml Net 2519.6 ml INPATIENT MEDICATIONS : Current Facility-Administered Medications Medication Dose Route Frequency potassium chloride ER 20-40 mEq tab(s) (KLOR-CON) 20-40 mEq ORAL/FEEDING TUBE PRN Or potassium chloride iv piggyback 20 mEq/100 mL 20 mEq INTRAVENOUS PRN phosphorus 500 mg tab(s) (K PHOS NEUTRAL) 500 mg ORAL/FEEDING TUBE PRN(NO DISPENSE) magnesium sulfate iv piggyback in sterile water 2 g 50 mL 2 g INTRAVENOUS PRN NaCl 0.9% iv flush bag 20 mL INTRAVENOUS PRN albuterol 2.5 mg /3 mL (0.083 %) 2.5 mg (PROVENTIL) 2.5 mg INHALATION q 4 H PRN famotidine 20 mg injection (PEPCID) 20 mg INTRAVENOUS BID ondansetron 4 mg tab(s) (ZOFRAN) 4 mg ORAL q 6 H PRN Or ondansetron (PF) 4 mg injection (ZOFRAN) 4 mg INTRAVENOUS q 6 H PRN docusate sodium 200 mg cap(s) (COLACE) 200 mg ORAL BID magnesium hydroxide 400 mg/5 mL 30 mL (MOM) 30 mL ORAL/FEEDING TUBE DAILY PRN sertraline 100 mg tab(s) (ZOLOFT) 100 mg ORAL AT BEDTIME bisacodyl EC 10 mg tab(s) (DULCOLAX) 10 mg ORAL DAILY PRN bisacodyl 10 mg suppository (DULCOLAX) 10 mg RECTAL DAILY PRN ceFAZolin iv piggyback 2 g in D5W (iso-osmotic) 100 mL (ANCEF) 2 g INTRAVENOUS q 6 HR polyethylene glycol 3350 17 g packet 17 g ORAL DAILY morphine 4 mg injection 4 mg INTRAVENOUS q 2 H PRN oxyCODONE-acetaminophen 5-325 mg 1 tablet (PERCOCET) 1 tablet ORAL q 4 H PRN oxyCODONE-acetaminophen 5-325 mg 2 tablet (PERCOCET) 2 tablet ORAL q 4 H PRN tiZANidine 4 mg tab(s) (ZANAFLEX) 4 mg ORAL q 8 H PRN acetaminophen 650 mg tab(s) (TYLENOL) 650 mg ORAL q 6 H PRN NaCl 0.9% iv infusion 50 mL/hr INTRAVENOUS CONTINUOUS HOME MEDICATIONS: ascorbic acid, vitamin C, (VITAMIN C) 500 mg tabletTake 500 mg by mouth once daily.Disp: Rfl: pantoprazole DR (PROTONIX) 40 mg tabletTake 40 mg by mouth once daily.Disp: Rfl: denosumab (PROLIA) 60 mg/mL syrgInject 60 mg subcutaneously one time only. Twice dailyDisp: Rfl: diltiazem (CARDIZEM) 120 mg tabletTake 120 mg by mouth four times daily.Disp: Rfl: apixaban (ELIQUIS ORAL)Take 5 mg by mouth once daily. Disp: Rfl: amiodarone (PACERONE) 200 mg tabletTake by mouth once daily.Disp: Rfl: sertraline (ZOLOFT) 50 mg tabletTake 100 mg by mouth once daily. Disp: Rfl: LABORATORY TESTS: CBC: Recent Labs 07/10/2435107/09/2458 WBC 13.29* 9.69 HB 11.7 12.9 HCT 36.0 40.5 PLT 95* 105* MCV 89.3 89.0 RDWCV 15.2* 15.0 NEUTP 88.8 -- ABSNEUT 11.82* -- LYMPHP 3.5 -- MONOP 6.8 -- EODINP 0.0 -- COAG: Recent Labs 07/09/2458 APTT 25.4 INR 1.0 BMP: Recent Labs 07/10/2435107/09/2458 GLUC 149* 150* NA 137 139 K 4.2 4.0 CHLOR 105 104 CO2 28 28 ANION 4* 7 BUN 15 15 CREAT 0.51 0.58 CHEM: Recent Labs 07/10/2435107/09/2458 ALB -- 3.8 TPROT -- 7.2 CA 9.1 9.7 MG 2.1 1.7 HEPATIC: Recent Labs 07/09/2458 ALKPHOS 70 ALT 10* AST 24 TBILI 1.0 URINALYSIS: Recent Labs 07/09/24 0152 SPGR 1.014 UGLUC Negative UBILI Negative UKET Trace* UHB Negative UPROT Negative UWBC 0-5 /HPF CARDIAC: No results for input(s): CKTEST, CKMB, CKMBP, TROPT, PBNP in the last 168 hours. ASSESSMENT - Acute Respiratory Insufficiency - Epidural Hematoma 2/2 C-Spine Steroid Injection (07/08) s/p T1-5 Laminectomy/Hematoma Evacuation (07/09) - Hx of Chronic Upper AND Lower Back Pain - Hx of CLARISSE (PAP Compliant) - Hx of Paroxysmal Atrial Fibrillation - Hx of Congenital Heart Disease - Hx of Depression - Hx of Osteo (more content not included)...[facility]08-29-2024 Note HNO ID: [id number] Author: JONO LEBLANC MD Service: Anesthesiology Author Type: Anesthesiologist Type: Anesthesia Procedure Notes Filed: 07/09/2024 12:14 Note Text: ANESTHESIOLOGY PROCEDURE NOTE A-Line General Information Procedure Start Time/Medication Administration: 07/09/2024 11:16 AM Procedure End Time: 07/09/2024 11:20 AM Patient location during procedure: OR Timeout Performed Pre-procedure: timeout performed Indications: continuous blood pressure monitoring Staffing Anesthesiologist: Jono Leblanc MD Performed by: anesthesiologist Preparation Sterility Preparation: hand hygiene performed prior to procedure, sterile gloves, drapes, and procedure tray, gown used during line insertion, surgical cap used, mask used, sterile drape used during line insertion, skin prep agent completely dried prior to procedure Site Prep: Chloraprep Procedure Details Catheter Type: arterial line Catheter Size: 20 G Catheter Length: 1.75 in Guidewire Used: Yes Guidewire Removed Intact: Yes Laterality: right Site: radial artery Ultrasound Guided: No Line Secured: occlusive biodressing Events Events: patient tolerated procedure well with no complications SIGNATURE: Jono Leblanc MD PATIENT NAME: Ruben Lobo DATE: July 09, 2024 TIME: 12:13 PM CSN: [id number] [facility]08-29-2024 NoteHNO ID: [id number] Author: ALYX HUERTA AA Service: ? Author Type: Seaman Type: Anesthesia Procedure Notes Filed: 07/09/2024 11:47 Note Text: ANESTHESIOLOGY PROCEDURE NOTE Airway General Information Procedure Start Time/Medication Administration: 07/09/2024 11:13 AM Procedure End Time: 07/09/2024 11:15 AM Patient location during procedure: OR Timeout Performed Pre-procedure: timeout performed Consent Obtained: Yes Patient identity confirmed: arm band Staffing Anesthesiologist: Jono Leblanc MD CAA: Alyx Huerta AA Performed by: anesthesiologist and CAA Indications and Patient Condition Indications for airway management: anesthesia Preoxygenated: yes anesthesia circuit Method: sleep Manual In-Line Stabilization: Yes Difficult Mask: No Final Airway Details Final airway type: endotracheal airway Final Endotracheal Airway: ETT Cuffed: yes Successful intubation technique: video laryngoscopy Devices used: Glidescope Endotracheal tube insertion site: oral Blade: Darvin Blade size: #3 ETT size (mm): 7.0 Measured from: lips Measurement (cm): 20 Placement verified by: capnometry Cormack-Lehane Classification: grade I - full view of glottis Number of attempts at approach: 1 Airway not difficult Comments Atraumatic intubation. Dentition unchanged. Tube taped with silk tape x2. SIGNATURE: ADI Weldon PATIENT NAME: Ruben Lobo DATE: July 09, 2024 TIME: 11:46 AM CSN: [id number] [facility]08-29-[facility]24 NoteHNO ID: [id number] Author: SHILOH NUNEZ RN Service: Care Management Author Type: Registered Nurse Type: Care Mgt Initial Assessment Filed: 07/09/2024 09:17 Note Text: CARE MANAGEMENT: ASSESSMENT AND DISCHARGE PLAN SERVICE DATE: July 09, 2024 SERVICE TIME: 09 PCP: Rip De La Garza MD Primary Contact: Extended Emergency Contact Information Primary Emergency Contact: Buck Palmer Relation: Son Admission Status: Inpatient Insurance Provider: [employer] PPO Discharge Planning requested by: Per Department Practice Potential Transition Plans Home Advance Directives Current Advance Directive: Health Care Power of Clinical Operations Consultant In Chart: No Wheel Assembler Attempted to Assist with AD Completion: Yes Action: Patient Unwilling Current Living Arrangements and Support Lives with: Spouse/significant other Type of Residence: Private Residence (House) Support: Children, Family members How do you manage to accomplish the following: Independent: Ambulation;Bathe/Shower;Dress;Meals/Meal Prep;Going to the bathroom;Medication Management;Transportation to appointments/community Current Services/Equipment Discharge Planning Patient Goal(s): Be able to go home, General wellness [place] of Choice Explained: Are you interested in bedside delivery of your medications? No Discharge Planning Participant(s): Patient Patient/Family Comments: Caregiver Assessment: Transport at Discharge: Transportation Arrangements: Car Needs Prior to Discharge: Needs Prior to Discharge: To Be Determined Post-Acute Discharge Plan: Intimate Partner Violence We have begun to talk to patients about safe and healthy relationships because it can have a large impact on your health. Do you feel safe around your partner or ex-partner?: Yes Within the last year, have you been afraid of your partner or ex-partner?: No Within the last year, have you been humiliated or emotionally abused in other ways by your partner or ex-partner?: No Within the last year, have you been kicked, hit, slapped, or otherwise physically hurt by your partner or ex-partner?: No Within the last year, have you been raped or forced to have any kind of sexual activity by your partner or ex-partner?: No Food Insecurity Within the past 12 months, you worried that your food would run out before you got the money to buy more.: Never true Within the past 12 months, the food you bought just didn't last and you didn't have money to get more.: Never true Transportation Needs In the past 12 months, has lack of transportation kept you from medical appointments or from getting medications?: No In the past 12 months, has lack of transportation kept you from meetings, work, or from getting things needed for daily living?: No Housing Stability In the last 12 months, was there a time when you were not able to pay the mortgage or rent on time?: No At any time in the past 12 months, were you homeless or living in a chcf (including now)?: No Utilities In the past 12 months has the [employer], gas, oil, or water [employer] threatened to shut off services in your home?: No Chart reviewed. Patient came to the hospital from home with her for a steroid injection for back pain 07/08 at [facility]. Post procedure she had slurred speech and weakness. She had an MRI which showed a large hematoma vs epidural abscess. She was transferred to [facility] for a higher level of care. Neurosurgery is following and she is getting frequent Neuro checks. At her baseline she is independent in her ADL's including transport. 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 She is established with her PCP and can afford her medications. At this time her plan is to return home independently when medically cleared. She denies needing any HHC, therapy, DME, or rehab stays. Patient states she has a HCPOA appointing her son Buck Palmer- however she does not have the paperwork available and states Buck does not have a copy. Until HCPOA can be obtained and verified we will follow [place] NO. Patient is legally but her has Parkinson's and Dementia- per patient he does not have capacity to make decisions and requires car dryer care. She has 2 adult biological children and they are legal NOK. They are listed below: Buck Hood (son) [phone] Rip Pablito (son) [phone] SIGNATURE: Shiloh Nunez RN PATIENT NAME: Ruben Lobo DATE: July 09, 2024 TIME: 9:08 AM CONTACT #: [phone] [facility]06-22-[facility] History of Present illness Narrative* Snehal Cross MD - 05/02/2022 2:15 PM EDT [facility] - NEW PATIENT EVALUATION Rip De La Garza MD ([facility]) [address] [facility] [id number] Rip De La Garza MD, MD [address] [facility] [id number] De La Garza: Thank you for referring Ms. Lobo to our clinic today. As you know she is a 77 year old right-handed female who is seen in consultation for evaluation of tremor since 2020. She is seen with her . Subjective HISTORY OF PRESENT ILLNESS: Initial HPI Hand tremors for 1 year. Sometimes mouth. Not in legs, head, voice. Both hands. Dropping silverware. Doesn't affect eating. Notices the most on the computer double tapping keys. Handwriting is bad, never was good. Sometimes small or big. Wavy. Doesn't affect drinking. Hard to put on earrings due tohands. Daily and constant. Nothing makes them better or worse. No numbness in hands or feet. On amiodarone since at least 2017. No family history of tremor. Interval History: In addition, the following areas that may be affected by abnormal involuntary movements were evaluated: Daily activities Difficulties with eating: No Difficulties in dressin (none) Difficulties with hygiene activities: No Difficulties with handwriting: Yes (mild) Difficulties with doing hobbies and other activities: Yes (slight) Difficulties turning in bed: 0 (none) Difficulties getting out of bed, car or chair: No Tremors/Gait/Balance Shaking or tremors: Yes (moderate): Walking and balance problems: 0 (none) Number of falls in the Last Month: 4. Bumped head on open cupboard door. Fell in yard after tripping. All are mechanical falls. Gait freezin (none) Autonomic/Pain Lightheadeness on standing: Yes (mild) can affect walking. On heart meds. Urinary problems: Yes (slight) Constipation problems: 0 (none) Pain and other sensations: 0 (none) Speech/Swallowing Speech problems: Yes (mild) Drooling: Yes: little when asleep Chewing and swallowing problems: Yes (slight) Sleep/Fatigue Sleep problems: Yes (moderate): trouble falling asleep. Hard to fall back to sleep. Old. Daytime sleepiness: Yes (mild) Fatigue: Yes (slight) REM sleep behavior disorder: yes Talking Restless Legs Syndrome: yes Some Impaired sense of smell: No Mood/Behavior Depression: PQH-9 = 14 usually representing moderate (10-14) depression. Anxiety: BRENDA-7 = 15 usually representing severe (>15) anxiety. Finally, the following table shows the patient's overall global physical and mental health using the PROMIS scale: PROMIS-10 Office Visit from 05/02/2022 in Neurology Global Physical Health T Score 42.3 Global Mental Health T Score 36.3 0-10 Standard Pain Scale 4 *PROMIS-10 scoring scale: mean = 50, over 50 is above average, under 50 is below average Movement Disorders Medications Schedule - as of the start of the visit: Review of Systems Review of Systems Constitutional Negative for Fevers, Night Sweats, Weight Gain, Weight Loss and Fatigue Eyes Negative for Change in vison not corrected by glasses and Vision loss or change Hent Positive for Hearing Loss, Tinnitus and Recent change in speech or voice Negative for Difficulty Swallowing Cardiovascular Negative for Chest Pain, Lightheadedness and Leg pain with walking Respiratory Positive for SOB with exertion Negative for SOB at rest, Cough, Wheezing and Snoring GI Positive for Blood in Stool Negative for Abdominal Pain, Diarrhea, Constipation, Nausea/Vomiting and Heartburn Positive for Urgency and Incontinence Endocrine Negative for Heat Intolerance and Excessive Thirst Musculoskeletal Positive for Back Pain Negative for Joint Swelling, Stiff Joints and Muscle Pain Integumentary Negative for Rashes, Itching and Hair Changes Heme/Lymph Negative for Prolonged Bleeding, Easy Bruising and Swelling of Arm or Leg Allergy/Immunologic Negative for Nasal Congestion and Swollen Nodes Neurologic Positive for Weakness and Slurred Speech Negative for Memory Problems, Headache, Numbness/Tingling, Double Vision and Trouble Swallowing Psychiatric Positive for Stress or Conflicts, Depression, Anxiety and Irritability Negative for Hallucinations and Delusions Patient's Review of Systems has been reviewed with the patient and updated as appropriate. ALLERGIES No Known Allergies Current Outpatient Medications Medication Sig ascorbic acid, vitamin C, (VITAMIN C) 500 mg tablet Take 500 mg by mouth once daily. pantoprazole DR TenorioPROTONIX) 40 mg tablet Take 40 mg by mouth once daily. denosumab (PROLIA) 60 mg/mL syrg Inject 60 mg subcutaneously one time only. Twice daily diltiazem (CARDIZEM) 120 mg tablet Take 120 mg by mouth four times daily. apixaban (ELIQUIS ORAL) Take 5 mg by mouth once daily. amiodarone (PACERONE) 200 mg tablet Take by mouth once daily. sertraline (ZOLOFT) 50 mg tablet Take 100 mg by mouth once daily. No current facility-administered medications for this visit. Past Medical and Surgical History: has a past medical history of A-fib (HCC), Anxiety, Arthritis, and Essential hypertension. has a past surgical history that includes xcapsl ctrc rmvl insj io lens prosth w/o ecp (Bilateral, 2004); past surgical history of (1963); appendectomy hx (1963); hysterectomy hx; cholecystectomy hx (2018); hernia repair hx (2018); past surgical history of; and post-cataract laser surgery (Left, 05/13/2018). Social History Tobacco Use Smoking status: Never Smoker Smokeless tobacco: Never Used Substance Use Topics Alcohol use: No Drug use: No Family History: family history includes Cancer in her sister; Heart in her mother; Hypertension in her mother. In addition, the patient denies any family history of PD/parkinsonism, tremor, other involuntary movement disorders. Objective Vital Signs: BP 130/63 (BP Site: Left Arm, BP Position: Sitting, BP Cuff Size: Regular Adult) Pulse 69 Ht 152.4 cm (5') Wt 51.5 kg (113 lb 9.6 oz) SpO2 98% BMI 22.19 kg/m General Physical Examination: General: Awake, alert, interactive, no acute distress, good nutritional status, normal development,well-kept General Neurological Examination: Neurological Exam Mental Status Awake and alert. Speech is normal. Language is fluent with no aphasia. Fund of knowledge is appropriate for level of education. Cranial Nerves CN III, IV, : Extraocular movements intact bilaterally. CN V: Facial sensation is normal. CN VII: Full and symmetric facial movement. CN VIII: Right: Hearing is normal. Left: Hearing is decreased. CN XI: Shoulder shrug strength is normal. CN XII: Tongue midline without atrophy or fasciculations. Motor Normal muscle tone. Strength is 5/5 throughout all four extremities. Bilateral upper extremity action and postural tremors. No resting tremor. Rare no-no head tremor. No rigidity or bradykinesia. No micrographia. Spirals and lines are mildly tremulous with either hand, worse on left. Sensory Vibration sense mildly reduced at toes. Reflexes Right Left Brachioradialis 2+ 2+ Biceps 2+ 2+ Patellar 2+ 2+ Achilles 1+ 1+ Plantar Mute Mute Right pathological reflexes: Sundar's absent. Ankle clonus absent. Left pathological reflexes: Sundar's absent. Ankle clonus absent. Coordination Right: Tfhand-ei-pmqi normal. Rapid alternating movement normal. Vedj-sg-rlpy normal. Left: Ikxpbf-ap-pytr normal. Rapid alternating movement normal. Legz-xj-nqhp normal. Gait Casual gait: Normal stance. Normal stride length. Slight limp left (knee). Normal right arm swing. Normal left arm swing. Able to rise from chair without using arms. Assessment and Plan: Assessment Ms. Lobo is a right-handed 77 year old female with Essential tremor. Action tremors are consistent with ET. Discussed diagnosis of ET vs PD is clinical. There are no elements of the history or physical exam concerning for parkinsonism. Discussed potential treatment options vs no treatment. Tremors may worsen with time and starting medications would not change that. At this point tremors are notbothersome enough to warrant treatment. Discussed limited treatment options given her other medicalconditions and medications. Tremors can improve with beta blockers but I am not comfortable starting one due to her AF. If PCP/cardiology feels is safe then can be started and managed by that team. Primidone interacts with Elidanyelle. Discussed Topamax as third option but she is not comfortable with risk of weight loss which is reasonable. I am happy to see her back as needed. The following are the current problems noted and addressed during this visit: Essential tremor (primary encounter diagnosis) Updated Movement Disorders Medication Schedule: Level of service : 29634 (45-59 min). Time spent 46 min on the day of service, which included preparing to see the patient, [id number] patient care, completing clinical documentation, performing a medically appropriate examination and counseling and educating the patient/family/caregiver. Thank you for allowing me to be part of the clinical care of this patient! I look forward to continued participation in the patient s care with you. Please do not hesitate to call with any questions. Sincerely, Snehal Cross MD [facility] Miscellaneous Notes* Telephone Encounter - Felicita Maravilla RN - 04/03/2022 8:56 AM EDT Received voicemail from patient on Sat04/03/2022 8:32 AM Transcript below: This is Ruben anderson 12:45 . I have an appointment this today or this afternoon with Dr. Cross but on Saturday I was exposed to COVID please give me a call thank you. Returned call to patient. Patient agreeable to reschedule. New visit is 05/02/22 @ 2pm. MD ANDREW notified. Felicita Maravilla MSN, RN April 03, 2022 9:08 AM documented in this [facility] Miscellaneous Notes* Telephone Encounter - Lizzette Mandujano - 03/30/2022 4:14 PM EDT Called and spoke with patient. She is scheduled for 04/03/2022. Referral scanned into patient's chart. Lizzette Mandujano * Telephone Encounter - Carrie Alvarenga MA - 03/30/2022 2:01 PM EDT New patient referral received from [facility], for patients tremors. I have placed the referral in the PSS box for review and scheduling. Thanks! Carrie Alvarenga MA documented in this encounter[facility] History of Past illness Narrative* Problem Noted Date Resolved Date After-cataract obscuring vision, right 8 11/05/2019 documented as of this encounter (statuses as of 03/30/2022) [facility] History of Past illness Narrative* Problem Noted Date Resolved Date After-cataract obscuring vision, right 8 11/05/2019 documented as of this encounter (statuses as of 04/03/2022) [facility] History of Past illness Narrative* Problem Noted Date Resolved Date After-cataract obscuring vision, right 8 11/05/2019 documented as of this encounter (statuses as of 05/02/2022) [facility] noteNo assessment information availableWCleveland [facility] Work Phone: Evaluation note* Diagnosis Essential tremor- Primary Essential and other specified forms of tremor documented in this encounter [facility] note* Diagnosis Onset Date Resolution Status Fatigue acute Tremor acute Congenital heart disease chr onic Essential (primary) hypertension chronic Mixed hyperlipidemia chronic Paroxysmal atrial fibrillation chronic [facility] Work Phone: Evaluation note* Diagnosis Onset Date Resolution Status Fatigue acute Tremor acute Congenital heart disease chr onic Essential (primary) hypertension chronic Mixed hyperlipidemia chronic Paroxysmal atrial fibrillation chronic COVID-19 acute [facility] Work Phone: Evaluation note* Diagnosis Onset Date Resolution Status Fatigue acute Tremor acute Congenital heart disease chr onic Essential (primary) hypertension chronic Mixed hyperlipidemia chronic Paroxysmal atrial fibrillation chronic COVID-19 acute CLARISSE (obstructive sleep apnea) [facility] Work Phone: Evaluation note* Diagnosis Onset Date Resolution Status COVID-19 acute CLARISSE (obstructive sleep apnea) chronic [facility] Work Phone: Evaluation note* Diagnosis Onset Date Resolution Status CLARISSE (obstructive sleep apnea) chronic Postoperative bleeding from incision acute Status post total right knee replacement not using cement acute [facility] Work Phone: Evaluation note* Diagnosis Onset Date Resolution Status Syncope acute Congenital heart disease chr onic Essential (primary) hypertension chronic Paroxysmal atrial fibrillation chronic CLARISSE (obstructive sleep apnea) chronic Syncope acute Congenital heart disease chr onic Essential (primary) hypertension chronic Paroxysmal atrial fibrillation chronic [facility] Work Phone: Evaluation note* Diagnosis Typical atrial flutter (HCC)- Primary Longstanding persistent atrial fibrillation (HCC) Congenital heart disease Unspecified congenital anomaly of heart Essential hypertension Unspecified essential hypertension Paraspinal hematoma Contusion of unspecified site CLARISSE on CPAP documented in this encounter [facility] Discharge instructions Additional Instructions Implant Used?: [facility] Work Phone: Patient's home Plan of care note* Visit Details Visit Type -PT SOC Discipline -Physical Therapy Problems Problem Description Start Date Status Goals Interve ntions Medication Education Disciplines: Skilled Services 07/15/2024 Active 1 goal linked to scheduled/docume nted intervention 1 goal intervention scheduled/documen connor in this visit Sepsis Disciplines: Skilled Services 07/15/2024 Resolved on 07/15/2024 1 goal linked to scheduled/docume nted intervention 1 goal intervention scheduled/documen connor in this visit Physician Specific Parameters Disciplines: Skilled Services 07/15/2024 Active 1 goal linked to scheduled/docume nted intervention 1 goal intervention scheduled/documen connor in this visit Risk for Falls Disciplines: Skilled Services 07/15/2024 Active 1 goal linked to scheduled/docume nted intervention 1 goal intervention scheduled/documen connor in this visit Pain Disciplines: Skilled Services 07/15/2024 Active 1 goal linked to scheduled/docume nted intervention 1 goal intervention scheduled/documen connor in this visit Discharge Disciplines: Skilled Services 07/15/2024 Active 1 goal linked to scheduled/docume nted intervention 1 goal intervention scheduled/documen connor in this visit Advance Directives Disciplines: Skilled Services 07/15/2024 Resolved on 07/15/2024 1 goal linked to scheduled/docume nted intervention 1 goal intervention scheduled/documen connor in this visit PT Orthopedic Condition Disciplines: PT 07/15/2024 Active 1 goal linked to scheduled/docume nted intervention 4 goal interventions scheduled/documen connor in this visit PT Learning Assessment Disciplines: PT 07/15/2024 Resolved on 07/15/2024 1 goal linked to scheduled/docume nted intervention 1 goal intervention scheduled/documen connor in this visit PT Cardiovascular Disease Disciplines: PT 07/15/2024 Resolved on 07/15/2024 1 goal linked to scheduled/docume nted intervention 1 goal intervention scheduled/documen connor in this visit Goals Goal Associated Problem Outcome Goal Met? Visit Notes Patient/caregiver will demonstrate ability to obtain, store, identify and administer ordered medications, keep accurate medication list in home, and adhere to medication schedule Description: Patient/caregiver will demonstrate ability to obtain, store, identify and administer ordered medications, keep accurate medication list in home, and adhere to medication schedule by 09/12/24. Medication Education No Patient/caregiver will be able to identify and report symptoms of sepsis Description: Patient/caregiver will be able to identify signs/symptoms of sepsis infection and will verbalize actions to take if suspected by 09/12/24. . Sepsis Completed Yes Patient to maintain parameters within physician-specified ranges throughout certification period Physician Specific Parameters No Manage Risk for falls Description: Patient/caregiver will verbalize knowledge of individualized fall prevention strategies by 09/12/24. . Risk for Falls No Manage Pain Description: Patient/caregiver will verbalize knowledge and understanding of appropriate techniques to control pain, including pain medication and non-pharmacological techniques. Patient will verbalize or demonstrate an acceptable level of pain as evidenced by a pain score of <5/10 and improvement in ability to perform activities of daily living to be achieved by 09/12/24. . Pain No Manage discharge planning Description: Patient/caregiver will verbalize understanding of ongoing discharge plan provided related to disease management, arrangements for outpatient and/or community services, obtaining medications, supplies, and DME, as needed throughout certification period. Discharge No Patient/caregiver will make healthcare providers aware of and any changes to Advance Directives throughout certification period Advance Directives Completed Yes Manage Orthopedic Condition Description: Improve patient and/or caregiver understanding of post surgical and/or non-surgical orthopedic intervention management as evidenced by patient and/or caregiver able to verbalize, demonstrate, and teach back instruction, to be achieved by 08/08/24.. PT Orthopedic Condition No Demonstrate understanding of education Description: Patient and/or caregiver will understand educational instruction to be achieved by 08/08/24.. PT Learning Assessment Completed Yes Manage Secondary Cardiovascular disease Description: Improve patient and/or caregiver understanding of secondary cardiovascular disease management as evidenced by patient and/or caregiver able to verbalize, demonstrate, and teach back instruction, to be achieved by 09/12/24. . PT Cardiovascular Disease Completed Yes Interventions Intervention Associated Problem/Goal Status Variance Visit Notes Medication Education Description: Evaluate/instruct patient/caregiver on obtaining, storing, identifying and administering ordered medications as well as keeping accurate medication list in the home and adhereing to medication schedule Problem:Medication Education Goal:Patient/caregive r will demonstrate ability to obtain, store, identify and administer ordered medications, keep accurate medication list in home, and adhere to medication schedule Completed Patient instructed on importance of keeping accurate medication list in home, need to take up-to-date medication list to all medical provider appointments and adhering to medication schedule. Risk of Sepsis Description: Patient is at risk for sepsis. Monitor closely for s/s of sepsis. Problem:Sepsis Goal:Patient/caregive r will be able to identify and report symptoms of sepsis Completed SPO2 Description: Notify Dr. De La Garza if pulse ox is <92% at rest. Problem:Physician Specific Parameters Goal:Patient to maintain parameters within physician-specified ranges throughout certification period Completed Instruct on individual fall risk factors and strategies to prevent falls and injuries caused by falls. Problem:Risk for Falls Goal:Manage Risk for falls Completed PT: Patient instructed on Eliminating Environmental Hazards: Keep pathways clear, Keep pets out of pathways, Remove unsafe rugs, Move furniture from pathways, Keep rooms and walkways well lit, Install hand rails/grab bars and Wear supportive shoes or non-skid socks Managing Impaired Functional Mobility: Use assistive device(s): front wheeled walker Managing Pain Instruct on pain and instruct on strategies to control pain Problem:Pain Goal:Manage Pain Completed patient instructed on techniques to control pain including Pharmacological measures and Non-Pharmacological measures; rest, positioning/elevation and mobility/therapeutic exercise. Instruct on importance of follow-up appts and continued monitoring with medical provider &/or chronic care clinic Problem:Discharge Goal:Manage discharge planning Completed Education provided on importance of compliance with follow-up appointment(s). Recommendations: patient/caregiver to follow up with scheduling appointment(s) for post-acute/primary care provider/chronic care clinic Determine patient's Advance Directive Status Description: Patient does not have advance directives. Patient/Caregiver declined Advance Directive information. Problem:Advance Directives Goal:Patient/caregive r will make healthcare providers aware of and any changes to Advance Directives throughout certification period Completed Discussed Advance Directives with Patient and/or Caregiver. Referred patient to Home Care handbook for further information on Healthcare DPOA & Living Will. Instruct on orthopedic bracing Description: Orthopedic bracing to include [place] collar . Problem:PT Orthopedic Condition Goal:Manage Orthopedic Condition Completed patient instructed on orthopedic bracing including wearing schedule and skin care. Instruct on orthopedic precautions and weight bearing restrictions Description: Orthopedic precautions including- spine, wearing [place] collar at all times except bathing No bending lifting or twisting Problem:PT Orthopedic Condition Goal:Manage Orthopedic Condition Completed patient instructed on orthopedic precautions. Instruct on management of edema Problem:PT Orthopedic Condition Goal:Manage Orthopedic Condition Completed Instruct patient on management of edema including ice. Instruct on self-management of post surgical and/or non-surgical orthopedic intervention Problem:PT Orthopedic Condition Goal:Manage Orthopedic Condition Completed patient instructed on managagement of orthopedic condition, staying well hydrated, eating foods with high protein, signs and symptoms of infection, follow provider guidance for showering , instructed on when to call provider and instructed on when to call 911. Instruct and educate on knowledge deficits Problem:PT Learning Assessment Goal:Demonstrate understanding of education Completed patient verbalize and/or demonstrate understanding of physical therapy education including cardiac disease management, orthopedic condition management, surgical precautions, pain management, fall prevention strategies, home safety and functional activity. Education methods include: verbal cues and written instructions. Further education required to improve knowledge and compliance with orthopedic condition management, surgical precautions, pain management, fall prevention strategies, home safety, functional activity and home exercise program. Instruct on signs, symptoms, and management of secondary cardiovascular disease Problem:PT Cardiovascular Disease Goal:Manage Secondary Cardiovascular disease Completed Instructed patient on exercise and activity guidelines and instructed on when to call provider. documented in this encounter [facility] Plan of care note* Visit Details Visit Type -PT ROUTINE Discipline -Physical Therapy Problems Problem Description Start Date Status Goals Interve ntions Physician Specific Parameters Disciplines: Skilled Services 07/15/2024 Active 1 goal linked to scheduled/document ed intervention 1 goal intervention scheduled/document ed in this visit Risk for Falls Disciplines: Skilled Services 07/15/2024 Active 1 goal linked to scheduled/document ed intervention 1 goal intervention scheduled/document ed in this visit Pain Disciplines: Skilled Services 07/15/2024 Active 1 goal linked to scheduled/document ed intervention 1 goal intervention scheduled/document ed in this visit PT Impaired muscle performance and/or ROM Disciplines: PT 07/15/2024 Active 1 goal linked to scheduled/document ed intervention 1 goal intervention scheduled/document ed in this visit PT Impaired mobility Disciplines: PT 07/15/2024 Active 1 goal linked to scheduled/document ed intervention 1 goal intervention scheduled/document ed in this visit PT Impaired gait Disciplines: PT 07/15/2024 Active 1 goal linked to scheduled/document ed intervention 1 goal intervention scheduled/document ed in this visit PT Orthopedic Condition Disciplines: PT 07/15/2024 Active 1 goal linked to scheduled/document ed intervention 4 goal interventions scheduled/document ed in this visit Goals Goal Associated Problem Outcome Goal Met? Visit Notes Patient to maintain parameters within physician-specified ranges throughout certification period Physician Specific Parameters No Manage Risk for falls Description: Patient/caregiver will verbalize knowledge of individualized fall prevention strategies by 09/12/24. . Risk for Falls No Manage Pain Description: Patient/caregiver will verbalize knowledge and understanding of appropriate techniques to control pain, including pain medication and non-pharmacological techniques. Patient will verbalize or demonstrate an acceptable level of pain as evidenced by a pain score of <5/10 and improvement in ability to perform activities of daily living to be achieved by 09/12/24. . Pain No Improved Muscle Performance and/or ROM Description: LTG: Patient will demonstrate improved muscle performance to meet functional goals as evidenced by ability to tolerate 10-15 minutes of therapeutic activity, to be achieved by 08/08/24.. STG: Patient and/or caregiver will verbalize/demonstrate independence with home exercise program, to improve functional mobility, to be achieved by 07/25/24. PT Impaired muscle performance and/or ROM No Improved Transfers Description: LTG: Patient will demonstrate safe transfers to/from bed, chair, couch and car independently with AD, to be achieved by 08/08/24.. PT Impaired mobility No Improved Gait Description: STG: Patient will demonstrate improved gait ability as evidenced by ambulation 75 feet with front wheeled walker independently with AD, in order to maneuver throughout home , to be achieved by 07/25/24. LTG: Patient will demonstrate improved gait ability as evidenced by ambulation 200 feet with LRAD independently with AD, to return to safe household and community ambulation, in order to return to plf , to be achieved by 08/08/24.. PT Impaired gait No Manage Orthopedic Condition Description: Improve patient and/or caregiver understanding of post surgical and/or non-surgical orthopedic intervention management as evidenced by patient and/or caregiver able to verbalize, demonstrate, and teach back instruction, to be achieved by 08/08/24.. PT Orthopedic Condition No Interventions Intervention Associated Problem/Goal Status Variance Visit Notes SPO2 Description: Notify Dr. De La Garza if pulse ox is <92% at rest. Problem:Physician Specific Parameters Goal:Patient to maintain parameters within physician-specified ranges throughout certification period Completed Instruct on individual fall risk factors and strategies to prevent falls and injuries caused by falls. Problem:Risk for Falls Goal:Manage Risk for falls Completed PT: Patient instructed on Eliminating Environmental Hazards: Keep pathways clear, Remove unsafe rugs, Move furniture from pathways, Keep rooms and walkways well lit and Install hand rails/grab bars Managing Impaired Functional Mobility: Use assistive device(s): rollator walker Managing Pain Instruct on pain and instruct on strategies to control pain Problem:Pain Goal:Manage Pain Completed patient instructed on techniques to control pain including Pharmacological measures and Non-Pharmacological measures; rest and positioning/elevation. Physical Therapy Therapeutic Exercises Problem:PT Impaired muscle performance and/or ROM Goal:Improved Muscle Performance and/or ROM Completed patient instructed on strengthening exercises including STANDING : HEEL RAISES, , KNEE FLEX, , HIP FLEX, HIP ABD X 10 with verbal, tactile, visual and written cues for technique . patient instructed to perform home exercise program daily which included hourly ambulation. Physical Therapy Transfer Training Problem:PT Impaired mobility Goal:Improved Transfers Completed Transfer training and instruction to patient on safe transfers to and from chair and RW seat with stand by assist and verbal cues for technique . Physical Therapy Gait Training Problem:PT Impaired gait Goal:Improved Gait Completed Gait training and instruction to patient on safe ambulation with rollator walker for 30' x 3 feet with stand by assist, with verbal and visual cues for corrections of gait deviations including pacing, using brakes. Instruct on orthopedic bracing Description: Orthopedic bracing to include [place] collar . Problem:PT Orthopedic Condition Goal:Manage Orthopedic Condition Completed patient instructed on orthopedic bracing including how to don/doff and wearing schedule. Instruct on orthopedic precautions and weight bearing restrictions Description: Orthopedic precautions including- spine, wearing [place] collar at all times except bathing No bending lifting or twisting Problem:PT Orthopedic Condition Goal:Manage Orthopedic Condition Completed patient instructed on orthopedic precautions. Physical therapy to perform surgical incision/wound management Description: Removal of post-op dressing on POD 7 ( 07/16/24). If no drainage is present, leave open to air; if drainage is present, cover with clean dressing and contact provider. Problem:PT Orthopedic Condition Goal:Manage Orthopedic Condition Completed Intervention completed this date. Incision 195 cm with 39 aylin. Clean , dry , well approximated . With pts permission a photo was uploaded to [employer] for MD to review Instruct on self-management of post surgical and/or non-surgical orthopedic intervention Problem:PT Orthopedic Condition Goal:Manage Orthopedic Condition Completed patient instructed on managagement of orthopedic condition, staying well hydrated, eating foods with high protein, signs and symptoms of infection, follow provider guidance for showering and instructed on when to call provider. [facility]* Visit Details Visit Type -OT EVAL Discipline -Occupational Therapy Problems Problem Description Start Date Status Goals Interve ntions Medication Education Disciplines: Skilled Services 07/15/2024 Active 1 goal linked to scheduled/documen connor intervention 1 goal intervention scheduled/document ed in this visit OT Referral Disciplines: Skilled Services 07/15/2024 Resolved on 07/17/2024 1 goal linked to scheduled/documen connor intervention 1 goal intervention scheduled/document ed in this visit Physician Specific Parameters Disciplines: Skilled Services 07/15/2024 Active 1 goal linked to scheduled/documen connor intervention 1 goal intervention scheduled/document ed in this visit Risk for Falls Disciplines: Skilled Services 07/15/2024 Active 1 goal linked to scheduled/documen connor intervention 1 goal intervention scheduled/document ed in this visit Pain Disciplines: Skilled Services 07/15/2024 Active 1 goal linked to scheduled/documen connor intervention 1 goal intervention scheduled/document ed in this visit Discharge Disciplines: Skilled Services 07/15/2024 Active 1 goal linked to scheduled/documen connor intervention 1 goal intervention scheduled/document ed in this visit OT Learning Assessment Disciplines: OT 07/17/2024 Resolved on 07/17/2024 1 goal linked to scheduled/documen connor intervention 1 goal intervention scheduled/document ed in this visit OT Aerobic Capacity for Functional Activity Disciplines: OT 07/17/2024 Resolved on 07/17/2024 1 goal linked to scheduled/documen connor intervention 1 goal intervention scheduled/document ed in this visit OT Functional Transfers Disciplines: OT 07/17/2024 Resolved on 07/17/2024 1 goal linked to scheduled/documen connor intervention 1 goal intervention scheduled/document ed in this visit Goals Goal Associated Problem Outcome Goal Met? Visit Notes Patient/caregiver will demonstrate ability to obtain, store, identify and administer ordered medications, keep accurate medication list in home, and adhere to medication schedule Description: Patient/caregiver will demonstrate ability to obtain, store, identify and administer ordered medications, keep accurate medication list in home, and adhere to medication schedule by 09/12/24. Medication Education No Patient will be referred to additional discipline as needed OT Referral Completed Yes Goal met Patient to maintain parameters within physician-specified ranges throughout certification period Physician Specific Parameters No Manage Risk for falls Description: Patient/caregiver will verbalize knowledge of individualized fall prevention strategies by 09/12/24. . Risk for Falls No Manage Pain Description: Patient/caregiver will verbalize knowledge and understanding of appropriate techniques to control pain, including pain medication and non-pharmacological techniques. Patient will verbalize or demonstrate an acceptable level of pain as evidenced by a pain score of <5/10 and improvement in ability to perform activities of daily living to be achieved by 09/12/24. . Pain No Manage discharge planning Description: Patient/caregiver will verbalize understanding of ongoing discharge plan provided related to disease management, arrangements for outpatient and/or community services, obtaining medications, supplies, and DME, as needed throughout certification period. Discharge No Demonstrate understanding of education Description: Patient and/or caregiver will understand educational instruction to be achieved by 07/16/24. OT Learning Assessment Completed Yes Goal met Improved Aerobic Capacity Description: Patient will demonstrate improved aerobic capacity to meet functional goals as evidenced by Rate of Perceived Exertion (RPE) 4 /10 during functional tasks to be achieved by 07/17/24. OT Aerobic Capacity for Functional Activity Completed Yes Goal met Improved Functional Transfers Description: patient will demonstrate safe transfers to/from shower/tub with supervision assistance with use of DME to be achieved by 07/16/24. OT Functional Transfers Completed Yes Goal met Interventions Intervention Associated Problem/Goal Status Variance Visit Notes Medication Education Description: Evaluate/instruct patient/caregiver on obtaining, storing, identifying and administering ordered medications as well as keeping accurate medication list in the home and adhereing to medication schedule Problem:Medication Education Goal:Patient/caregiv er will demonstrate ability to obtain, store, identify and administer ordered medications, keep accurate medication list in home, and adhere to medication schedule Completed Patient instructed on importance of keeping accurate medication list in home and need to take up-to-date medication list to all medical provider appointments. OT evaluation and treatment Description: Evaluate and treat for the assessment of functional deficits and establishment of appropriate interventions and education to address: I/ADL training, functional transfers, DME/adaptive equipment recommendations, safety awareness, energy conservation, home safety and falls prevention recommendations and upper extremity strengthening and home exercise program training. Problem:OT Referral Goal:Patient will be referred to additional discipline as needed Completed SPO2 Description: Notify Dr. De La Garza if pulse ox is <92% at rest. Problem:Physician Specific Parameters Goal:Patient to maintain parameters within physician-specified ranges throughout certification period Completed Instruct on individual fall risk factors and strategies to prevent falls and injuries caused by falls. Problem:Risk for Falls Goal:Manage Risk for falls Completed OT: Patient instructed on Managing Impaired Functional Mobility: Caregiver to provide assist with: Steps, Transfers and ADL/IADLs as well as use of grab bars and shower chair Managing Pain Instruct on pain and instruct on strategies to control pain Problem:Pain Goal:Manage Pain Completed patient instructed on techniques to control pain including Pharmacological measures and Non-Pharmacological measures; rest, positioning/elevation, breathing/relaxation, use of DME/assistive devices and use of thermal modalities, apply ice to affected area for the following prescribed frequency: 20 min on 40 min off. a great amount of time was spent educating pt on benefits of pain management during recovery. Pt had not taken any pain meds as she was awaiting tramedol being delivered to home - unclear if medication would actually be delivered this date. OT recommended continuing with tylenol and trying to keep pain less than a 6. Pt took mediation and was using ice during OT session, reporting a significant decrease in pain by the end of the OT session. Instruct on final discharge plan and deliver discharge instructions Problem:Discharge Goal:Manage discharge planning Completed Delivered OT Discharge plan: Discharge plan discussed with patient for plan for transition to: caregiver assistance Instruct and educate on knowledge deficits Problem:OT Learning Assessment Goal:Demonstrate understanding of education Completed Education methods include: verbal cues, visual cues and teach back. Patient/Caregiver require further education to improve knowledge and compliance with n/a. OT discharge completed this date. Aerobic Capacity Training Problem:OT Aerobic Capacity for Functional Activity Goal:Improved Aerobic Capacity Completed OT instructed on RPE scale and benefits of keeping fatigue at a 4 or lower throughout recovery to maintain safety and increase independence during daily tasks. Patient verbalized understanding and states she is at a 5 after ambulating to the bathroom and completing tub transfer. OT recommended waiting until she has more energy and decreased pain prior to trying to complete shower. Patient verbalized understanding. Transfer Training Problem:OT Functional Transfers Goal:Improved Functional Transfers Completed OT demonstrated tub shower transfer by holding grab bar with bilateral upper extremities and kicking leg back and need to step into the tub sideways. OT then recommended using grab bar on side of tub to balance self while completing sit to and from stand on shower chair. Patient able to complete tub shower transfer with standby assistance after instruction. Patient states no increase in pain with this technique. OT recommended always having a caregiver present for safety at this time. documented in this encounter [facility] home Plan of care note* Visit Details Visit Type -PT ROMA Discipline -Physical Therapy Problems Problem Description Start Date Status Goals Interve ntions Medication Education Disciplines: Skilled Services 07/15/2024 Active 1 goal linked to scheduled/documente d intervention 1 goal intervention scheduled/document ed in this visit Physician Specific Parameters Disciplines: Skilled Services 07/15/2024 Active 1 goal linked to scheduled/documente d intervention 1 goal intervention scheduled/document ed in this visit Risk for Falls Disciplines: Skilled Services 07/15/2024 Active 1 goal linked to scheduled/documente d intervention 1 goal intervention scheduled/document ed in this visit Pain Disciplines: Skilled Services 07/15/2024 Active 1 goal linked to scheduled/documente d intervention 1 goal intervention scheduled/document ed in this visit Discharge Disciplines: Skilled Services 07/15/2024 Active 1 goal linked to scheduled/documente d intervention 1 goal intervention scheduled/document ed in this visit PT Impaired mobility Disciplines: PT 07/15/2024 Active 2 goals linked to scheduled/documente d interventions 2 goal interventions scheduled/document ed in this visit PT Impaired gait Disciplines: PT 07/15/2024 Active 1 goal linked to scheduled/documente d intervention 1 goal intervention scheduled/document ed in this visit PT Orthopedic Condition Disciplines: PT 07/15/2024 Active 1 goal linked to scheduled/documente d intervention 3 goal interventions scheduled/document ed in this visit High Risk Medications Disciplines: Skilled Services 07/22/2024 Active 1 goal linked to scheduled/documente d intervention 2 goal interventions scheduled/document ed in this visit Goals Goal Associated Problem Outcome Goal Met? Visit Notes Patient/caregiver will demonstrate ability to obtain, store, identify and administer ordered medications, keep accurate medication list in home, and adhere to medication schedule Description: Patient/caregiver will demonstrate ability to obtain, store, identify and administer ordered medications, keep accurate medication list in home, and adhere to medication schedule by 09/12/24. Medication Education No Patient to maintain parameters within physician-specified ranges throughout certification period Physician Specific Parameters No Manage Risk for falls Description: Patient/caregiver will verbalize knowledge of individualized fall prevention strategies by 09/12/24. . Risk for Falls No Manage Pain Description: Patient/caregiver will verbalize knowledge and understanding of appropriate techniques to control pain, including pain medication and non-pharmacological techniques. Patient will verbalize or demonstrate an acceptable level of pain as evidenced by a pain score of <5/10 and improvement in ability to perform activities of daily living to be achieved by 09/12/24. . Pain No Manage discharge planning Description: Patient/caregiver will verbalize understanding of ongoing discharge plan provided related to disease management, arrangements for outpatient and/or community services, obtaining medications, supplies, and DME, as needed throughout certification period. Discharge No Improved Transfers Description: LTG: Patient will demonstrate safe transfers to/from bed, chair, couch and car independently with AD, to be achieved by 08/08/24.. PT ROMA performed 07/22/24. Goals remain appropriate, extend PT POC until 08/15/24. PT Impaired mobility No Improved Bed Mobility Description: STG: Patient will demonstrate improved bed mobility, ability to position self and supine <> sit independently to be achieved by 07/25/24. PT ROMA performed 07/22/24. Goals remain appropriate, extend PT POC until 08/15/24. PT Impaired mobility No Improved Gait Description: STG: Patient will demonstrate improved gait ability as evidenced by ambulation 75 feet with front wheeled walker independently with AD, in order to maneuver throughout home , to be achieved by 07/25/24. Goal met 07/22/24. LTG: Patient will demonstrate improved gait ability as evidenced by ambulation 200 feet with LRAD independently with AD, to return to safe household and community ambulation, in order to return to plf , to be achieved by 08/08/24.. PT ROMA performed 07/22/24. Goals remain appropriate, extend PT POC until 08/15/24. PT Impaired gait No Manage Orthopedic Condition Description: Improve patient and/or caregiver understanding of post surgical and/or non-surgical orthopedic intervention management as evidenced by patient and/or caregiver able to verbalize, demonstrate, and teach back instruction, to be achieved by 08/08/24.. PT ROMA performed 07/22/24. Goals remain appropriate, extend PT POC until 08/15/24. PT Orthopedic Condition No Patient/caregiver will teach back high risk medication side effect and precaution education Description: STG Patient/caregiver will verbalize understanding of high risk medication side effects and precautions to be achieved by 09/12/24. LTG Patient/caregiver will continue to verbalize understanding of high risk medication side effects and precautions throughout certification period. High Risk Medications No Interventions Intervention Associated Problem/Goal Status Variance Visit Notes Medication Education Description: Evaluate/instruct patient/caregiver on obtaining, storing, identifying and administering ordered medications as well as keeping accurate medication list in the home and adhereing to medication schedule Problem:Medication Education Goal:Patient/caregive r will demonstrate ability to obtain, store, identify and administer ordered medications, keep accurate medication list in home, and adhere to medication schedule Completed Patient and Caregiver instructed on importance of keeping accurate medication list in home, need to take up-to-date medication list to all medical provider appointments, adhering to medication schedule, proper storage of medications and medication, route, dose, frequency, purpose, and side effects of medications. SPO2 Description: Notify Dr. De La Garza if pulse ox is <92% at rest. Problem:Physician Specific Parameters Goal:Patient to maintain parameters within physician-specified ranges throughout certification period Completed Instruct on individual fall risk factors and strategies to prevent falls and injuries caused by falls. Problem:Risk for Falls Goal:Manage Risk for falls Completed Interventions implemented and instructions provided this visit to reduce risk of falls:Assistive devices to be used: RW. Instruct on pain and instruct on strategies to control pain Problem:Pain Goal:Manage Pain Completed patient instructed on techniques to control pain including Pharmacological measures and Non-Pharmacological measures; rest, positioning/elevation, mobility/therapeutic exercise, use of DME/assistive devices and use of thermal modalities, apply ice to affected area. Instruct on ongoing discharge plan Problem:Discharge Goal:Manage discharge planning Completed Ongoing Discharge plan: Discharge plan discussed with patient and caregiver including frequency and duration for home PT and plan for transition to: live independently at home without ongoing services. Physical Therapy Transfer Training Problem:PT Impaired mobility Goal:Improved Transfers Completed Transfer training and instruction to patient on safe transfers to and from chair with supervision and verbal, tactile and visual cues for sequencing extremities and to promote anterior weight shifting. Recommended the following adaptive equipment/durable medical equipment: walker. Physical Therapy Bed Mobility Training Problem:PT Impaired mobility Goal:Improved Bed Mobility Completed Bed mobility training and instruction on safe positioning to patient and/or caregiver, including supine to sit, sit to supine and rolling side to side with log roll technique. Physical Therapy Gait Training Problem:PT Impaired gait Goal:Improved Gait Completed Gait training and instruction to patient on safe ambulation with front wheeled walker for 40 feet with supervision, with verbal cues for corrections of gait deviations including increase BL step length, increase heel strike/toe off and to reduce reliance on BL LEs. Instruct on orthopedic bracing Description: Orthopedic bracing to include [place] J collar . Problem:PT Orthopedic Condition Goal:Manage Orthopedic Condition Completed patient and caregiver instructed on orthopedic bracing including wearing schedule. Instruct on orthopedic precautions and weight bearing restrictions Description: Orthopedic precautions including- spine, wearing [employer] [place] [employer] [place] collar at all times except bathing No bending lifting or twisting Problem:PT Orthopedic Condition Goal:Manage Orthopedic Condition Completed patient and caregiver instructed on orthopedic precautions. Instruct on management of edema Problem:PT Orthopedic Condition Goal:Manage Orthopedic Condition Completed Instruct patient on management of edema including elevation above the level of the heart, ice and benefits of activity. Opioids- educated on high risk medication Problem:High Risk Medications Goal:Patient/caregive r will teach back high risk medication side effect and precaution education Completed patient and caregiver educated on taking medication(s) as prescribed by provider. Do not stop medication or alter doses without speaking with your provider. Discuss medication effectiveness or side effect concerns with your provider and home care team. Only take opioids as prescribed, do not share your medications, and take proper precautions in storing and properly disposing of opioids once no longer needed. Possible side effects of opioid medication including sedation, decreased rate of breathing, and constipation. Report over sedation to prescribing provider and practice deep breathing techniques every hour while awake. Prevent constipation by increasing water and fiber intake, increasing activity as tolerated, and use stool softener(s) as prescribed. Antibiotic- educated on high risk medication Problem:High Risk Medications Goal:Patient/caregive r will teach back high risk medication side effect and precaution education Completed patient and caregiver educated on taking medication(s) as prescribed by provider. Do not stop medication or alter doses without speaking with your provider. Discuss medication effectiveness or side effect concerns with your provider and home care team. Take the full dispensed amount even if you start feeling better, as bacteria can become resistant to antibiotic treatment if you do not finish your prescription. Common side effects are upset stomach and diarrhea. Take your antibiotics with food unless otherwise indicated to help with indigestion. Taking an ojga-[id number]-[id number] probiotic or eating yogurt with live and active cultures three times a day can help prevent antibiotic-associated diarrhea. Call your provider immediately if you develop rashes or hives as this could be a delayed allergic reaction. Seek emergency treatment if you develop severe allergic reaction symptoms such as mouth or tongue swelling. [facility] Visit Details Visit Type -OT EVAL Discipline -Occupational Therapy Problems Problem Description Start Date Status Goals Interve ntions Medication Education Disciplines: Skilled Services 07/15/2024 Active 1 goal linked to scheduled/documen connor intervention 1 goal intervention scheduled/document ed in this visit Physician Specific Parameters Disciplines: Skilled Services 07/15/2024 Active 1 goal linked to scheduled/documen connor intervention 1 goal intervention scheduled/document ed in this visit Risk for Falls Disciplines: Skilled Services 07/15/2024 Active 1 goal linked to scheduled/documen connor intervention 1 goal intervention scheduled/document ed in this visit Pain Disciplines: Skilled Services 07/15/2024 Active 1 goal linked to scheduled/documen connor intervention 1 goal intervention scheduled/document ed in this visit Discharge Disciplines: Skilled Services 07/15/2024 Active 1 goal linked to scheduled/documen connor intervention 1 goal intervention scheduled/document ed in this visit OT Referral Disciplines: Skilled Services 07/22/2024 Resolved on 07/23/2024 1 goal linked to scheduled/documen connor intervention 1 goal intervention scheduled/document ed in this visit OT Learning Assessment Disciplines: OT 07/23/2024 Resolved on 07/23/2024 1 goal linked to scheduled/documen connor intervention 1 goal intervention scheduled/document ed in this visit OT ADLs/IADLs Disciplines: OT 07/23/2024 Resolved on 07/23/2024 1 goal linked to scheduled/documen connor intervention 1 goal intervention scheduled/document ed in this visit OT Functional Transfers Disciplines: OT 07/23/2024 Resolved on 07/23/2024 1 goal linked to scheduled/documen connor intervention 1 goal intervention scheduled/document ed in this visit Goals Goal Associated Problem Outcome Goal Met? Visit Notes Patient/caregiver will demonstrate ability to obtain, store, identify and administer ordered medications, keep accurate medication list in home, and adhere to medication schedule Description: Patient/caregiver will demonstrate ability to obtain, store, identify and administer ordered medications, keep accurate medication list in home, and adhere to medication schedule by 09/12/24. Medication Education No Patient to maintain parameters within physician-specified ranges throughout certification period Physician Specific Parameters No Manage Risk for falls Description: Patient/caregiver will verbalize knowledge of individualized fall prevention strategies by 09/12/24. . Risk for Falls No Manage Pain Description: Patient/caregiver will verbalize knowledge and understanding of appropriate techniques to control pain, including pain medication and non-pharmacological techniques. Patient will verbalize or demonstrate an acceptable level of pain as evidenced by a pain score of <5/10 and improvement in ability to perform activities of daily living to be achieved by 09/12/24. . Pain No Manage discharge planning Description: Patient/caregiver will verbalize understanding of ongoing discharge plan provided related to disease management, arrangements for outpatient and/or community services, obtaining medications, supplies, and DME, as needed throughout certification period. Discharge No Patient will be referred to additional discipline as needed OT Referral Completed Yes Demonstrate understanding of education Description: Patient and/or caregiver will understand educational instruction to be achieved by 07/23/24. OT Learning Assessment Completed Yes Improved ADLs/IADLs performance Description: patient will verbalize understanding of instructions and demonstrate improved performance of lower body dressing, bathing and toileting to supervision or setup assistance as evidenced by improved Denny ADL Index score to at least 85/100 to be achieved by 07/23/24. OT ADLs/IADLs Completed Yes Improved Functional Transfers Description: patient will demonstrate safe transfers to/from toilet and shower/tub with supervision assistance and no verbal cues with use of DME to be achieved by 07/23/24. OT Functional Transfers Completed Yes Interventions Intervention Associated Problem/Goal Status Variance Visit Notes Medication Education Description: Evaluate/instruct patient/caregiver on obtaining, storing, identifying and administering ordered medications as well as keeping accurate medication list in the home and adhereing to medication schedule Problem:Medication Education Goal:Patient/caregive r will demonstrate ability to obtain, store, identify and administer ordered medications, keep accurate medication list in home, and adhere to medication schedule Completed Patient instructed on importance of keeping accurate medication list in home and adhering to medication schedule. SPO2 Description: Notify Dr. De La Garza if pulse ox is <92% at rest. Problem:Physician Specific Parameters Goal:Patient to maintain parameters within physician-specified ranges throughout certification period Completed Instruct on individual fall risk factors and strategies to prevent falls and injuries caused by falls. Problem:Risk for Falls Goal:Manage Risk for falls Completed OT: Patient instructed on Eliminating Environmental Hazards: Keep pathways clear, Keep pets out of pathways, Keep rooms and walkways well lit and Keep frequently used items within reach Instruct on pain and instruct on strategies to control pain Problem:Pain Goal:Manage Pain Completed patient instructed on techniques to control pain including Pharmacological measures and Non-Pharmacological measures; rest and positioning/elevation. Instruct on ongoing discharge plan Problem:Discharge Goal:Manage discharge planning Completed Ongoing Discharge plan: Discharge plan discussed with patient including frequency and duration for home OT and plan for transition to: caregiver assistance. OT evaluation and treatment Description: Evaluate and treat for the assessment of functional deficits and establishment of appropriate interventions and education to address: I/ADL training, functional transfers, DME/adaptive equipment recommendations and safety awareness. Problem:OT Referral Goal:Patient will be referred to additional discipline as needed Completed Instruct and educate on knowledge deficits Problem:OT Learning Assessment Goal:Demonstrate understanding of education Completed Education methods include: verbal cues, tactile cues and visual cues. Patient/Caregiver has recieved education to improve knowledge and compliance with fall prevention strategies, orthopedic condition management, home safety, infection control precautions, functional adl/iadl activity, functional transfers and discharge planning. ADL/IADLs Training Problem:OT ADLs/IADLs Goal:Improved ADLs/IADLs performance Completed Instruct patient on compensatory strategies, adaptive equipment/DME use and safety and falls prevention and handheld shower use to facilite improved performance of lower body dressing, bathing and toileting hygiene with supervision or setup assistance Transfer Training Problem:OT Functional Transfers Goal:Improved Functional Transfers Completed Instruct patient on safe transfers and proper techniques including slow positional changes, body positioning to perform to and from toilet and shower/tub with sup assistance and verbal cues for safety. education and training on the following adaptive equipment/durable medical equipment:grab bar(s) and shower chair. [facility] Visit Details Visit Type -[employer] DUTY MANAGER ROUTINE Discipline -Physical Therapy Problems Problem Description Start Date Status Goals Interve ntions Medication Education Disciplines: Skilled Services 07/15/2024 Active 1 goal linked to scheduled/document ed intervention 1 goal intervention scheduled/document ed in this visit Physician Specific Parameters Disciplines: Skilled Services 07/15/2024 Active 1 goal linked to scheduled/document ed intervention 1 goal intervention scheduled/document ed in this visit Risk for Falls Disciplines: Skilled Services 07/15/2024 Active 1 goal linked to scheduled/document ed intervention 1 goal intervention scheduled/document ed in this visit Pain Disciplines: Skilled Services 07/15/2024 Active 1 goal linked to scheduled/document ed intervention 1 goal intervention scheduled/document ed in this visit Discharge Disciplines: Skilled Services 07/15/2024 Active 1 goal linked to scheduled/document ed intervention 2 goal interventions scheduled/document ed in this visit PT Impaired muscle performance and/or ROM Disciplines: PT 07/15/2024 Active 1 goal linked to scheduled/document ed intervention 1 goal intervention scheduled/document ed in this visit PT Impaired mobility Disciplines: PT 07/15/2024 Active 1 goal linked to scheduled/document ed intervention 1 goal intervention scheduled/document ed in this visit PT Impaired gait Disciplines: PT 07/15/2024 Active 1 goal linked to scheduled/document ed intervention 1 goal intervention scheduled/document ed in this visit PT Orthopedic Condition Disciplines: PT 07/15/2024 Active 1 goal linked to scheduled/document ed intervention 3 goal interventions scheduled/document ed in this visit Goals Goal Associated Problem Outcome Goal Met? Visit Notes Patient/caregiver will demonstrate ability to obtain, store, identify and administer ordered medications, keep accurate medication list in home, and adhere to medication schedule Description: Patient/caregiver will demonstrate ability to obtain, store, identify and administer ordered medications, keep accurate medication list in home, and adhere to medication schedule by 09/12/24. Medication Education No Patient to maintain parameters within physician-specified ranges throughout certification period Physician Specific Parameters No Manage Risk for falls Description: Patient/caregiver will verbalize knowledge of individualized fall prevention strategies by 09/12/24. . Risk for Falls No Manage Pain Description: Patient/caregiver will verbalize knowledge and understanding of appropriate techniques to control pain, including pain medication and non-pharmacological techniques. Patient will verbalize or demonstrate an acceptable level of pain as evidenced by a pain score of <5/10 and improvement in ability to perform activities of daily living to be achieved by 09/12/24. . Pain No Manage discharge planning Description: Patient/caregiver will verbalize understanding of ongoing discharge plan provided related to disease management, arrangements for outpatient and/or community services, obtaining medications, supplies, and DME, as needed throughout certification period. Discharge No Improved Muscle Performance and/or ROM Description: LTG: Patient will demonstrate improved muscle performance to meet functional goals as evidenced by ability to tolerate 10-15 minutes of therapeutic activity, to be achieved by 08/08/24.. STG: Patient and/or caregiver will verbalize/demonstrate independence with home exercise program, to improve functional mobility, to be achieved by 07/25/24. PT ROMA performed 07/22/24. Goals remain appropriate, extend PT POC until 08/15/24. PT Impaired muscle performance and/or ROM No Improved Transfers Description: LTG: Patient will demonstrate safe transfers to/from bed, chair, couch and car independently with AD, to be achieved by 08/08/24.. PT ROMA performed 07/22/24. Goals remain appropriate, extend PT POC until 08/15/24. PT Impaired mobility No Improved Gait Description: STG: Patient will demonstrate improved gait ability as evidenced by ambulation 75 feet with front wheeled walker independently with AD, in order to maneuver throughout home , to be achieved by 07/25/24. Goal met 07/22/24. LTG: Patient will demonstrate improved gait ability as evidenced by ambulation 200 feet with LRAD independently with AD, to return to safe household and community ambulation, in order to return to plf , to be achieved by 08/08/24.. PT ROMA performed 07/22/24. Goals remain appropriate, extend PT POC until 08/15/24. PT Impaired gait No Manage Orthopedic Condition Description: Improve patient and/or caregiver understanding of post surgical and/or non-surgical orthopedic intervention management as evidenced by patient and/or caregiver able to verbalize, demonstrate, and teach back instruction, to be achieved by 08/08/24.. PT ROMA performed 07/22/24. Goals remain appropriate, extend PT POC until 08/15/24. PT Orthopedic Condition No Interventions Intervention Associated Problem/Goal Status Variance Visit Notes Medication Education Description: Evaluate/instruct patient/caregiver on obtaining, storing, identifying and administering ordered medications as well as keeping accurate medication list in the home and adhereing to medication schedule Problem:Medication Education Goal:Patient/caregive r will demonstrate ability to obtain, store, identify and administer ordered medications, keep accurate medication list in home, and adhere to medication schedule Completed Patient instructed on importance of keeping accurate medication list in home and adhering to medication schedule. SPO2 Description: Notify Dr. De La Garza if pulse ox is <92% at rest. Problem:Physician Specific Parameters Goal:Patient to maintain parameters within physician-specified ranges throughout certification period Completed Instruct on individual fall risk factors and strategies to prevent falls and injuries caused by falls. Problem:Risk for Falls Goal:Manage Risk for falls Completed PT: Patient instructed on Managing Impaired Functional Mobility: Use assistive device(s): rollator walker Instruct on pain and instruct on strategies to control pain Problem:Pain Goal:Manage Pain Completed patient instructed on techniques to control pain including Non-Pharmacological measures; rest and positioning Instruct on ongoing discharge plan Problem:Discharge Goal:Manage discharge planning Completed Ongoing Discharge plan: Discharge plan discussed with patient including frequency and duration for home PT and plan for transition to: live independently at home without ongoing services. Instruct on importance of follow-up appts and continued monitoring with medical provider &/or chronic care clinic Problem:Discharge Goal:Manage discharge planning Completed Education provided on importance of compliance with follow-up appointment(s). Recommendations: patient/caregiver to follow up with scheduling appointment(s) for post-acute/primary care provider/chronic care clinic Physical Therapy Therapeutic Exercises Problem:PT Impaired muscle performance and/or ROM Goal:Improved Muscle Performance and/or ROM Completed patient instructed on strengthening exercises including standing heel toe raises, hip abd and flrcion, hams curls and 1/4squats x's 10 each. seated faq and hip flexion x's 10 each with verbal, visual and written cues for form and pace. patient instructed to perform home exercise program twice a day which included above ex. Physical Therapy Transfer Training Problem:PT Impaired mobility Goal:Improved Transfers Completed Transfer training and instruction to patient on safe transfers to and from chair and couch with supervision and verbal cues for reaching abck for chair prior to sitting. Physical Therapy Gait Training Problem:PT Impaired gait Goal:Improved Gait Completed Gait training and instruction to patient on safe ambulation with rollator walker for 3x's 35 feet with supervision, with verbal cues for corrections of gait deviations including pacing for safety and energy conservation. Instruct on orthopedic bracing Description: Orthopedic bracing to include [place] J collar . Problem:PT Orthopedic Condition Goal:Manage Orthopedic Condition Completed patient instructed on orthopedic bracing including how to don/doff, wearing schedule and skin care. Instruct on orthopedic precautions and weight bearing restrictions Description: Orthopedic precautions including- spine, wearing [place] collar at all times except bathing No bending lifting or twisting Problem:PT Orthopedic Condition Goal:Manage Orthopedic Condition Completed patient instructed on orthopedic precautions. Instruct on self-management of post surgical and/or non-surgical orthopedic intervention Problem:PT Orthopedic Condition Goal:Manage Orthopedic Condition Completed patient instructed on staying well hydrated, eating foods with high protein, signs and symptoms of infection, signs and symptoms of DVT/PE, instructed on when to call provider and instructed on when to call 911. [facility] Visit Details Visit Type -RECRUITMENT ASSISTANT UNMADE VISIT Discipline -Home Health Aide Problems Problem Description Start Date Status Goals Interve ntions Home Health Aide Care Plan Disciplines: All Services, RECRUITMENT ASSISTANT 07/15/2024 Active 1 goal linked to scheduled/documente d intervention 3 goal interventions scheduled/documented in this visit Goals Goal Associated Problem Outcome Goal Met? Visit Notes Patient will maintain adequate hygiene and demonstrate safe ambulation,transfers, positioning. Patient status will be reported to clinical rn manager. Patient will be provided with assistance for IADLs. Home Health Aide Care Plan No Interventions Intervention Associated Problem/Goal Status Variance Visit Notes Provide skin care Description: Provide the following skin care: lotion as patient requests Problem:Home Health Aide Care Plan Goal:Patient will maintain adequate hygiene and demonstrate safe ambulation,transfers, positioning. Patient status will be reported to clinical rn manager. Patient will be provided with assistance for IADLs. Scheduled Provide oral care Problem:Home Health Aide Care Plan Goal:Patient will maintain adequate hygiene and demonstrate safe ambulation,transfers, positioning. Patient status will be reported to clinical rn manager. Patient will be provided with assistance for IADLs. Scheduled Bathe patient Description: Bathe patient sponge bath on commode. Problem:Home Health Aide Care Plan Goal:Patient will maintain adequate hygiene and demonstrate safe ambulation,transfers, positioning. Patient status will be reported to clinical rn manager. Patient will be provided with assistance for IADLs. Scheduled [facility] Visit Details Visit Type -PT REASSESSMENT Discipline -Physical Therapy Problems Problem Description Start Date Status Goals Interve ntions Physician Specific Parameters Disciplines: Skilled Services 07/15/2024 Active 1 goal linked to scheduled/document ed intervention 1 goal intervention scheduled/document ed in this visit Risk for Falls Disciplines: Skilled Services 07/15/2024 Active 1 goal linked to scheduled/document ed intervention 1 goal intervention scheduled/document ed in this visit Pain Disciplines: Skilled Services 07/15/2024 Active 1 goal linked to scheduled/document ed intervention 1 goal intervention scheduled/document ed in this visit PT Impaired muscle performance and/or ROM Disciplines: PT 07/15/2024 Active 1 goal linked to scheduled/document ed intervention 1 goal intervention scheduled/document ed in this visit PT Impaired mobility Disciplines: PT 07/15/2024 Active 2 goals linked to scheduled/document ed interventions 2 goal interventions scheduled/document ed in this visit PT Impaired gait Disciplines: PT 07/15/2024 Active 2 goals linked to scheduled/document ed interventions 2 goal interventions scheduled/document ed in this visit PT Impaired balance Disciplines: PT 07/15/2024 Active 1 goal linked to scheduled/document ed intervention 1 goal intervention scheduled/document ed in this visit PT Orthopedic Condition Disciplines: PT 07/15/2024 Active 1 goal linked to scheduled/document ed intervention 2 goal interventions scheduled/document ed in this visit Goals Goal Associated Problem Outcome Goal Met? Visit Notes Patient to maintain parameters within physician-specified ranges throughout certification period Physician Specific Parameters No Manage Risk for falls Description: Patient/caregiver will verbalize knowledge of individualized fall prevention strategies by 09/12/24. . Risk for Falls No Manage Pain Description: Patient/caregiver will verbalize knowledge and understanding of appropriate techniques to control pain, including pain medication and non-pharmacological techniques. Patient will verbalize or demonstrate an acceptable level of pain as evidenced by a pain score of <5/10 and improvement in ability to perform activities of daily living to be achieved by 09/12/24. . Pain No Improved Muscle Performance and/or ROM Description: LTG: Patient will demonstrate improved muscle performance to meet functional goals as evidenced by ability to tolerate 10-15 minutes of therapeutic activity, to be achieved by 08/08/24.. STG: Patient and/or caregiver will verbalize/demonstrate independence with home exercise program, to improve functional mobility, to be achieved by 07/25/24. PT ROMA performed 07/22/24. Goals remain appropriate, extend PT POC until 08/15/24.- extend to 08/22/24 PT Impaired muscle performance and/or ROM No Improved Transfers Description: LTG: Patient will demonstrate safe transfers to/from bed, chair, couch and car independently with AD, to be achieved by 08/08/24.. PT ROMA performed 07/22/24. Goals remain appropriate, extend PT POC until 08/15/24. PT Impaired mobility Completed Yes Improved Bed Mobility Description: STG: Patient will demonstrate improved bed mobility, ability to position self and supine <> sit independently to be achieved by 07/25/24. PT ROMA performed 07/22/24. Goals remain appropriate, extend PT POC until 08/15/24. PT Impaired mobility Completed Yes Improved Stair Climbing Description: STG:: Patient will demonstrate improved stair negotiation as evidenced by ascend/descend 2 steps with walker with sba assistance, to be achieved by 07/25/24. LTG: Patient will demonstrate improved stair negotiation as evidenced by ascend/descend 1 flight steps with railing and with cane independently, to safely access all areas of the home, access community and exit home, to be achieved by 08/08/24.. PT ROMA performed 07/22/24. Goals remain appropriate, extend PT POC until 08/15/24.- extended to 08/22/24 PT Impaired gait No Improved Gait Description: STG: Patient will demonstrate improved gait ability as evidenced by ambulation 75 feet with front wheeled walker independently with AD, in order to maneuver throughout home , to be achieved by 07/25/24. Goal met 07/22/24. LTG: Patient will demonstrate improved gait ability as evidenced by ambulation 200 feet with LRAD independently with AD, to return to safe household and community ambulation, in order to return to plf , to be achieved by 08/08/24.-PT ROMA performed 07/22/24. Goals remain appropriate, extend PT POC until 08/15/24..- new achieve by date of 08/22/24 LTG - pt will demonstrates improved gait ability as evidenced by ambulating household distances/surfaces with st cane to be achieved by 08/22/24 PT Impaired gait No Improved Balance Description: LTG: Patient will demonstrate improved standing balance to meet functional goals as evidenced by TUG score of <30 to be achieved by 08/15/24. Goal met 07/22/24 and updated from 40 seconds to 30 seconds. Goal met 08/04/24 updated to 20 seconds with achieve by date of 08/22/24 PT Impaired balance No Manage Orthopedic Condition Description: Improve patient and/or caregiver understanding of post surgical and/or non-surgical orthopedic intervention management as evidenced by patient and/or caregiver able to verbalize, demonstrate, and teach back instruction, to be achieved by 08/08/24.. PT ROMA performed 07/22/24. Goals remain appropriate, extend PT POC until 08/15/24. PT Orthopedic Condition No Interventions Intervention Associated Problem/Goal Status Variance Visit Notes SPO2 Description: Notify Dr. De La Garza if pulse ox is <92% at rest. Problem:Physician Specific Parameters Goal:Patient to maintain parameters within physician-specified ranges throughout certification period Completed Instruct on individual fall risk factors and strategies to prevent falls and injuries caused by falls. Problem:Risk for Falls Goal:Manage Risk for falls Completed PT: Patient instructed on Eliminating Environmental Hazards: Keep pathways clear, Remove unsafe rugs, Move furniture from pathways, Keep rooms and walkways well lit, Install hand rails/grab bars and Wear supportive shoes or non-skid socks Managing Impaired Functional Mobility: Use assistive device(s): rollator walker Managing Pain Instruct on pain and instruct on strategies to control pain Problem:Pain Goal:Manage Pain Completed patient instructed on techniques to control pain including Pharmacological measures and Non-Pharmacological measures; rest and positioning/elevation. Physical Therapy Therapeutic Exercises Problem:PT Impaired muscle performance and/or ROM Goal:Improved Muscle Performance and/or ROM Completed patient instructed on strengthening exercises including standing heel toe raises, hip abd and flrcion, hams curls and 1/4squats x's 10 each. seated faq and hip flexion x's 15 each with verbal, visual and written cues for form and pace. patient instructed to perform home exercise program twice a day which included above ex. Physical Therapy Transfer Training Problem:PT Impaired mobility Goal:Improved Transfers Completed Transfer training and instruction to patient on safe transfers to and from bed, chair, toilet, couch and car with independent Physical Therapy Bed Mobility Training Problem:PT Impaired mobility Goal:Improved Bed Mobility Completed KATHY bed mobility Physical Therapy Stair Training Problem:PT Impaired gait Goal:Improved Stair Climbing Completed Stair training and instruction to patient on safe stair climbing, ascend/descend 1 steps, with walker with maximum assist to put walker in/out of the door and verbal cues for technique Pt relies on pulling to ascend the step. Physical Therapy Gait Training Problem:PT Impaired gait Goal:Improved Gait Completed Gait training and instruction to patient on safe ambulation with rollator walker for 75 feet with supervision, with verbal cues for corrections of gait deviations including staying in the walker . Gait training and instruction to patient on safe ambulation with single point cane for 15' x 6 feet with stand by assist, with verbal and visual cues for corrections of gait deviations including sequencing, , stride length , increasing NGOZI . Physical Therapy Balance Training Problem:PT Impaired balance Goal:Improved Balance Completed Developed, implemented, and instructed patient on standing balance exercises including gait training with cane . Instruct on orthopedic bracing Description: Orthopedic bracing to include [place] collar . Problem:PT Orthopedic Condition Goal:Manage Orthopedic Condition Completed patient instructed on orthopedic bracing including wearing schedule. Instruct on self-management of post surgical and/or non-surgical orthopedic intervention Problem:PT Orthopedic Condition Goal:Manage Orthopedic Condition Completed patient instructed on managagement of orthopedic condition, staying well hydrated, eating foods with high protein, signs and symptoms of infection and signs and symptoms of DVT/PE. [facility] Visit Details Visit Type -RECRUITMENT ASSISTANT ROUTINE Discipline -Home Health Aide Problems Problem Description Start Date Status Goals Interve ntions Home Health Aide Care Plan Disciplines: All Services, RECRUITMENT ASSISTANT 07/15/2024 Active 1 goal linked to scheduled/documente d intervention 3 goal interventions scheduled/documented in this visit Goals Goal Associated Problem Outcome Goal Met? Visit Notes Patient will maintain adequate hygiene and demonstrate safe ambulation,transfers, positioning. Patient status will be reported to clinical rn manager. Patient will be provided with assistance for IADLs. Home Health Aide Care Plan No Interventions Intervention Associated Problem/Goal Status Variance Visit Notes Provide skin care Description: Provide the following skin care: lotion as patient requests Problem:Home Health Aide Care Plan Goal:Patient will maintain adequate hygiene and demonstrate safe ambulation,transfers, positioning. Patient status will be reported to clinical rn manager. Patient will be provided with assistance for IADLs. Completed Completed Provide oral care Problem:Home Health Aide Care Plan Goal:Patient will maintain adequate hygiene and demonstrate safe ambulation,transfers, positioning. Patient status will be reported to clinical rn manager. Patient will be provided with assistance for IADLs. Completed Completed Bathe patient Description: Bathe patient sponge bath on commode. Problem:Home Health Aide Care Plan Goal:Patient will maintain adequate hygiene and demonstrate safe ambulation,transfers, positioning. Patient status will be reported to clinical rn manager. Patient will be provided with assistance for IADLs. Completed Completed [facility] Visit Details Visit Type -[employer]PER[employer] DUTY MANAGER ROUTINE Discipline -Physical Therapy Problems Problem Description Start Date Status Goals Interve ntions Medication Education Disciplines: Skilled Services 07/15/2024 Active 1 goal linked to scheduled/document ed intervention 1 goal intervention scheduled/document ed in this visit Physician Specific Parameters Disciplines: Skilled Services 07/15/2024 Active 1 goal linked to scheduled/document ed intervention 1 goal intervention scheduled/document ed in this visit Risk for Falls Disciplines: Skilled Services 07/15/2024 Active 1 goal linked to scheduled/document ed intervention 1 goal intervention scheduled/document ed in this visit Pain Disciplines: Skilled Services 07/15/2024 Active 1 goal linked to scheduled/document ed intervention 1 goal intervention scheduled/document ed in this visit Discharge Disciplines: Skilled Services 07/15/2024 Active 1 goal linked to scheduled/document ed intervention 2 goal interventions scheduled/document ed in this visit PT Impaired muscle performance and/or ROM Disciplines: PT 07/15/2024 Active 1 goal linked to scheduled/document ed intervention 1 goal intervention scheduled/document ed in this visit PT Impaired gait Disciplines: PT 07/15/2024 Active 2 goals linked to scheduled/document ed interventions 2 goal interventions scheduled/document ed in this visit PT Impaired balance Disciplines: PT 07/15/2024 Active 1 goal linked to scheduled/document ed intervention 1 goal intervention scheduled/document ed in this visit PT Orthopedic Condition Disciplines: PT 07/15/2024 Active 1 goal linked to scheduled/document ed intervention 3 goal interventions scheduled/document ed in this visit Goals Goal Associated Problem Outcome Goal Met? Visit Notes Patient/caregiver will demonstrate ability to obtain, store, identify and administer ordered medications, keep accurate medication list in home, and adhere to medication schedule Description: Patient/caregiver will demonstrate ability to obtain, store, identify and administer ordered medications, keep accurate medication list in home, and adhere to medication schedule by 09/12/24. Medication Education No Patient to maintain parameters within physician-specified ranges throughout certification period Physician Specific Parameters No Manage Risk for falls Description: Patient/caregiver will verbalize knowledge of individualized fall prevention strategies by 09/12/24. . Risk for Falls No Manage Pain Description: Patient/caregiver will verbalize knowledge and understanding of appropriate techniques to control pain, including pain medication and non-pharmacological techniques. Patient will verbalize or demonstrate an acceptable level of pain as evidenced by a pain score of <5/10 and improvement in ability to perform activities of daily living to be achieved by 09/12/24. . Pain No Manage discharge planning Description: Patient/caregiver will verbalize understanding of ongoing discharge plan provided related to disease management, arrangements for outpatient and/or community services, obtaining medications, supplies, and DME, as needed throughout certification period. Discharge No Improved Muscle Performance and/or ROM Description: LTG: Patient will demonstrate improved muscle performance to meet functional goals as evidenced by ability to tolerate 10-15 minutes of therapeutic activity, to be achieved by 08/08/24.. STG: Patient and/or caregiver will verbalize/demonstrate independence with home exercise program, to improve functional mobility, to be achieved by 07/25/24. PT ROMA performed 07/22/24. Goals remain appropriate, extend PT POC until 08/15/24.- extend to 08/22/24 PT Impaired muscle performance and/or ROM No Improved Stair Climbing Description: STG:: Patient will demonstrate improved stair negotiation as evidenced by ascend/descend 2 steps with walker with sba assistance, to be achieved by 07/25/24. LTG: Patient will demonstrate improved stair negotiation as evidenced by ascend/descend 1 flight steps with railing and with cane independently, to safely access all areas of the home, access community and exit home, to be achieved by 08/08/24.. PT ROMA performed 07/22/24. Goals remain appropriate, extend PT POC until 08/15/24.- extended to 08/22/24 PT Impaired gait No Improved Gait Description: STG: Patient will demonstrate improved gait ability as evidenced by ambulation 75 feet with front wheeled walker independently with AD, in order to maneuver throughout home , to be achieved by 07/25/24. Goal met 07/22/24. LTG: Patient will demonstrate improved gait ability as evidenced by ambulation 200 feet with LRAD independently with AD, to return to safe household and community ambulation, in order to return to plf , to be achieved by 08/08/24.-PT ROMA performed 07/22/24. Goals remain appropriate, extend PT POC until 08/15/24..- new achieve by date of 08/22/24 LTG - pt will demonstrates improved gait ability as evidenced by ambulating household distances/surfaces with st cane to be achieved by 08/22/24 PT Impaired gait No Improved Balance Description: LTG: Patient will demonstrate improved standing balance to meet functional goals as evidenced by TUG score of <30 to be achieved by 08/15/24. Goal met 07/22/24 and updated from 40 seconds to 30 seconds. Goal met 08/04/24 updated to 20 seconds with achieve by date of 08/22/24 PT Impaired balance No Manage Orthopedic Condition Description: Improve patient and/or caregiver understanding of post surgical and/or non-surgical orthopedic intervention management as evidenced by patient and/or caregiver able to verbalize, demonstrate, and teach back instruction, to be achieved by 08/08/24.. PT ROMA performed 07/22/24. Goals remain appropriate, extend PT POC until 08/15/24. PT Orthopedic Condition No Interventions Intervention Associated Problem/Goal Status Variance Visit Notes Medication Education Description: Evaluate/instruct patient/caregiver on obtaining, storing, identifying and administering ordered medications as well as keeping accurate medication list in the home and adhereing to medication schedule Problem:Medication Education Goal:Patient/caregive r will demonstrate ability to obtain, store, identify and administer ordered medications, keep accurate medication list in home, and adhere to medication schedule Completed Patient instructed on importance of keeping accurate medication list in home. SPO2 Description: Notify Dr. De La Garza if pulse ox is <92% at rest. Problem:Physician Specific Parameters Goal:Patient to maintain parameters within physician-specified ranges throughout certification period Completed Instruct on individual fall risk factors and strategies to prevent falls and injuries caused by falls. Problem:Risk for Falls Goal:Manage Risk for falls Completed PT: Patient instructed on Managing Impaired Functional Mobility: Use assistive device(s): front wheeled walker for outdoor ambulation and single point cane for indoor ambulation Instruct on pain and instruct on strategies to control pain Problem:Pain Goal:Manage Pain Completed patient instructed on techniques to control pain including Non-Pharmacological measures; rest. Deliver N[facility] Problem:Discharge Goal:Manage discharge planning Completed Delivered [facility] on 08/11/24 for discharge date of 08/18/24. Patient denies questions/concerns w/ form. Instruct on ongoing discharge plan Problem:Discharge Goal:Manage discharge planning Completed Ongoing Discharge plan: Discharge plan discussed with patient including frequency and duration for home PT and plan for transition to: live independently at home without ongoing services. Physical Therapy Therapeutic Exercises Problem:PT Impaired muscle performance and/or ROM Goal:Improved Muscle Performance and/or ROM Completed patient instructed on strengthening exercises including standing heel toe raises, hip abd, flexion and ext, hams curls and 1/4 squats x's 12 each with verbal cues for form. patient instructed to perform home exercise program twice a day which included above ex. Physical Therapy Stair Training Problem:PT Impaired gait Goal:Improved Stair Climbing Completed Stair training and instruction to patient on safe stair climbing, ascend/descend 2 steps, without railing and with rollator with moderate assist for lifting /lowering rollator and verbal cues for safety. Physical Therapy Gait Training Problem:PT Impaired gait Goal:Improved Gait Completed Gait training and instruction to patient on safe ambulation with single point cane for 3x's75 feet with supervision, with verbal cues for corrections of gait deviations including pacing and correct seuquencing. Physical Therapy Balance Training Problem:PT Impaired balance Goal:Improved Balance Completed Developed, implemented, and instructed patient on standing balance exercises including standing exercises and cane training. Instruct on orthopedic bracing Description: Orthopedic bracing to include [place] collar . Problem:PT Orthopedic Condition Goal:Manage Orthopedic Condition Completed patient instructed on orthopedic bracing including how to don/doff and wearing schedule. Instruct on orthopedic precautions and weight bearing restrictions Description: Orthopedic precautions including- spine, wearing [place] collar at all times except bathing No bending lifting or twisting Problem:PT Orthopedic Condition Goal:Manage Orthopedic Condition Completed patient instructed on orthopedic precautions. Instruct on self-management of post surgical and/or non-surgical orthopedic intervention Problem:PT Orthopedic Condition Goal:Manage Orthopedic Condition Completed patient instructed on signs and symptoms of infection, signs and symptoms of DVT/PE, instructed on when to call provider and instructed on when to call 911. [facility] Visit Details Visit Type -RECRUITMENT ASSISTANT DISC DC W Vi sit Discipline -Home Health Aide Problems Problem Description Start Date Status Goals Interve ntions Home Health Aide Care Plan Disciplines: All Services, RECRUITMENT ASSISTANT 07/15/2024 Active 1 goal linked to scheduled/documente d intervention 3 goal interventions scheduled/documented in this visit Goals Goal Associated Problem Outcome Goal Met? Visit Notes Patient will maintain adequate hygiene and demonstrate safe ambulation,transfers, positioning. Patient status will be reported to clinical rn manager. Patient will be provided with assistance for IADLs. Home Health Aide Care Plan No Interventions Intervention Associated Problem/Goal Status Variance Visit Notes Provide skin care Description: Provide the following skin care: lotion as patient requests Problem:Home Health Aide Care Plan Goal:Patient will maintain adequate hygiene and demonstrate safe ambulation,transfers, positioning. Patient status will be reported to clinical rn manager. Patient will be provided with assistance for IADLs. Completed Completed Provide oral care Problem:Home Health Aide Care Plan Goal:Patient will maintain adequate hygiene and demonstrate safe ambulation,transfers, positioning. Patient status will be reported to clinical rn manager. Patient will be provided with assistance for IADLs. Completed Completed Bathe patient Description: Bathe patient sponge bath on commode. Problem:Home Health Aide Care Plan Goal:Patient will maintain adequate hygiene and demonstrate safe ambulation,transfers, positioning. Patient status will be reported to clinical rn manager. Patient will be provided with assistance for IADLs. Completed Completed documented in this encounter [facility] home Plan of care note* Visit Details Visit Type -PT AGENCY DC W V ISIT Discipline -Physical Therapy Problems Problem Description Start Date Status Goals Interve ntions Medication Education Disciplines: Skilled Services 07/15/2024 Resolved on 08/17/2024 1 goal linked to scheduled/document ed intervention Physician Specific Parameters Disciplines: Skilled Services 07/15/2024 Resolved on 08/17/2024 1 goal linked to scheduled/document ed intervention 1 goal intervention scheduled/document ed in this visit Risk for Falls Disciplines: Skilled Services 07/15/2024 Resolved on 08/17/2024 1 goal linked to scheduled/document ed intervention 1 goal intervention scheduled/document ed in this visit Pain Disciplines: Skilled Services 07/15/2024 Resolved on 08/17/2024 1 goal linked to scheduled/document ed intervention 1 goal intervention scheduled/document ed in this visit Discharge Disciplines: Skilled Services 07/15/2024 Resolved on 08/17/2024 1 goal linked to scheduled/document ed intervention PT Impaired muscle performance and/or ROM Disciplines: PT 07/15/2024 Resolved on 08/17/2024 1 goal linked to scheduled/document ed intervention 1 goal intervention scheduled/document ed in this visit PT Impaired gait Disciplines: PT 07/15/2024 Resolved on 08/17/2024 2 goals linked to scheduled/document ed interventions 2 goal interventions scheduled/document ed in this visit PT Impaired balance Disciplines: PT 07/15/2024 Resolved on 08/17/2024 1 goal linked to scheduled/document ed intervention 1 goal intervention scheduled/document ed in this visit PT Orthopedic Condition Disciplines: PT 07/15/2024 Resolved on 08/17/2024 1 goal linked to scheduled/document ed intervention 3 goal interventions scheduled/document ed in this visit Home Health Aide Care Plan Disciplines: All Services, Physical Therapy, RECRUITMENT ASSISTANT 07/15/2024 Resolved on 08/17/2024 1 goal linked to scheduled/document ed intervention 3 goal interventions scheduled/document ed in this visit High Risk Medications Disciplines: Skilled Services 07/22/2024 Resolved on 08/17/2024 1 goal linked to scheduled/document ed intervention Goals Goal Associated Problem Outcome Goal Met? Visit Notes Patient/caregiver will demonstrate ability to obtain, store, identify and administer ordered medications, keep accurate medication list in home, and adhere to medication schedule Description: Patient/caregiver will demonstrate ability to obtain, store, identify and administer ordered medications, keep accurate medication list in home, and adhere to medication schedule by 09/12/24. Medication Education Completed Yes Patient to maintain parameters within physician-specified ranges throughout certification period Physician Specific Parameters Completed Yes Manage Risk for falls Description: Patient/caregiver will verbalize knowledge of individualized fall prevention strategies by 09/12/24. . Risk for Falls Completed Yes Manage Pain Description: Patient/caregiver will verbalize knowledge and understanding of appropriate techniques to control pain, including pain medication and non-pharmacological techniques. Patient will verbalize or demonstrate an acceptable level of pain as evidenced by a pain score of <5/10 and improvement in ability to perform activities of daily living to be achieved by 09/12/24. . Pain Completed Yes Manage discharge planning Description: Patient/caregiver will verbalize understanding of ongoing discharge plan provided related to disease management, arrangements for outpatient and/or community services, obtaining medications, supplies, and DME, as needed throughout certification period. Discharge Completed Yes Improved Muscle Performance and/or ROM Description: LTG: Patient will demonstrate improved muscle performance to meet functional goals as evidenced by ability to tolerate 10-15 minutes of therapeutic activity, to be achieved by 08/08/24.. STG: Patient and/or caregiver will verbalize/demonstrate independence with home exercise program, to improve functional mobility, to be achieved by 07/25/24. PT ROMA performed 07/22/24. Goals remain appropriate, extend PT POC until 08/15/24.- extend to 08/22/24 PT Impaired muscle performance and/or ROM Completed Yes Improved Stair Climbing Description: STG:: Patient will demonstrate improved stair negotiation as evidenced by ascend/descend 2 steps with walker with sba assistance, to be achieved by 07/25/24. LTG: Patient will demonstrate improved stair negotiation as evidenced by ascend/descend 1 flight steps with railing and with cane independently, to safely access all areas of the home, access community and exit home, to be achieved by 08/08/24.. PT ROMA performed 07/22/24. Goals remain appropriate, extend PT POC until 08/15/24.- extended to 08/22/24 PT Impaired gait Completed Yes Improved Gait Description: STG: Patient will demonstrate improved gait ability as evidenced by ambulation 75 feet with front wheeled walker independently with AD, in order to maneuver throughout home , to be achieved by 07/25/24. Goal met 07/22/24. LTG: Patient will demonstrate improved gait ability as evidenced by ambulation 200 feet with LRAD independently with AD, to return to safe household and community ambulation, in order to return to plf , to be achieved by 08/08/24.-PT ROMA performed 07/22/24. Goals remain appropriate, extend PT POC until 08/15/24..- new achieve by date of 08/22/24 LTG - pt will demonstrates improved gait ability as evidenced by ambulating household distances/surfaces with st cane to be achieved by 08/22/24 PT Impaired gait Completed Yes Improved Balance Description: LTG: Patient will demonstrate improved standing balance to meet functional goals as evidenced by TUG score of <30 to be achieved by 08/15/24. Goal met 07/22/24 and updated from 40 seconds to 30 seconds. Goal met 08/04/24 updated to 20 seconds with achieve by date of 08/22/24 PT Impaired balance Completed Yes Manage Orthopedic Condition Description: Improve patient and/or caregiver understanding of post surgical and/or non-surgical orthopedic intervention management as evidenced by patient and/or caregiver able to verbalize, demonstrate, and teach back instruction, to be achieved by 08/08/24.. PT ROMA performed 07/22/24. Goals remain appropriate, extend PT POC until 08/15/24. PT Orthopedic Condition Completed Yes Patient will maintain adequate hygiene and demonstrate safe ambulation,transfers, positioning. Patient status will be reported to clinical rn manager. Patient will be provided with assistance for IADLs. Home Health Aide Care Plan No Patient/caregiver will teach back high risk medication side effect and precaution education Description: STG Patient/caregiver will verbalize understanding of high risk medication side effects and precautions to be achieved by 09/12/24. LTG Patient/caregiver will continue to verbalize understanding of high risk medication side effects and precautions throughout certification period. High Risk Medications Completed Yes Interventions Intervention Associated Problem/Goal Status Variance Visit Notes SPO2 Description: Notify Dr. De La Garza if pulse ox is <92% at rest. Problem:Physician Specific Parameters Goal:Patient to maintain parameters within physician-specified ranges throughout certification period Completed Instruct on individual fall risk factors and strategies to prevent falls and injuries caused by falls. Problem:Risk for Falls Goal:Manage Risk for falls Completed PT: Patient instructed on Eliminating Environmental Hazards: Keep pathways clear, Remove unsafe rugs, Move furniture from pathways, Keep rooms and walkways well lit, Install hand rails/grab bars and Wear supportive shoes or non-skid socks Managing Impaired Functional Mobility: Use assistive device(s): front wheeled walker and single point cane Managing Pain Instruct on pain and instruct on strategies to control pain Problem:Pain Goal:Manage Pain Completed patient instructed on techniques to control pain including Pharmacological measures and Non-Pharmacological measures; rest and positioning/elevation. Physical Therapy Therapeutic Exercises Problem:PT Impaired muscle performance and/or ROM Goal:Improved Muscle Performance and/or ROM Completed patient instructed on strengthening exercises including standing heel toe raises, hip abd, flexion and ext, hams curls and 1/4 squats x's 12 each with verbal cues for form. patient instructed to perform home exercise program twice a day which included above ex. Physical Therapy Stair Training Problem:PT Impaired gait Goal:Improved Stair Climbing Completed up and down 2 steps to garage with rail and supervision pnly Physical Therapy Gait Training Problem:PT Impaired gait Goal:Improved Gait Completed Indep amb with RW on indoor and outdoor surfaces with steady recip pattern x 150' Physical Therapy Balance Training Problem:PT Impaired balance Goal:Improved Balance Completed pt demonstrates improved dynamic standing balacne as evidecned by a TUG of 19 Instruct on orthopedic bracing Description: Orthopedic bracing to include [place] collar . Problem:PT Orthopedic Condition Goal:Manage Orthopedic Condition Completed patient instructed on orthopedic bracing including wearing schedule. Instruct on orthopedic precautions and weight bearing restrictions Description: Orthopedic precautions including- spine, wearing [place] collar at all times except bathing No bending lifting or twisting Problem:PT Orthopedic Condition Goal:Manage Orthopedic Condition Completed patient instructed on orthopedic precautions. Instruct on self-management of post surgical and/or non-surgical orthopedic intervention Problem:PT Orthopedic Condition Goal:Manage Orthopedic Condition Completed patient instructed on managagement of orthopedic condition, staying well hydrated, eating foods with high protein, signs and symptoms of infection, signs and symptoms of DVT/PE, follow provider guidance for showering and instructed on when to call provider. Provide skin care Description: Provide the following skin care: lotion as patient requests Problem:Home Health Aide Care Plan Goal:Patient will maintain adequate hygiene and demonstrate safe ambulation,transfers, positioning. Patient status will be reported to clinical rn manager. Patient will be provided with assistance for IADLs. Scheduled Provide oral care Problem:Home Health Aide Care Plan Goal:Patient will maintain adequate hygiene and demonstrate safe ambulation,transfers, positioning. Patient status will be reported to clinical rn manager. Patient will be provided with assistance for IADLs. Scheduled Bathe patient Description: Bathe patient sponge bath on commode. Problem:Home Health Aide Care Plan Goal:Patient will maintain adequate hygiene and demonstrate safe ambulation,transfers, positioning. Patient status will be reported to clinical rn manager. Patient will be provided with assistance for IADLs. Scheduled [facility] ([facility]ative[facility]No reason for referral information availableWCleveland Clinic [facility] Work Phone: Chief Complaint and Reason for Visit Chief Complaint E ORDER SINUSITIS Chief Complaint E ORDER SINUSITIS OSTEOPOROSIS Chief Complaint SINUSITIS OSTEOPOROSIS reassess cardiovascular status EORDERS Reason for Visit Fatigue Tremor Congenital heart disease Essential (primary) hypertension Mixed hyperlipidemia Paroxysmal atrial fibrillation Chief Complaint OSTEOPOROSIS reassess cardiovascular status EORDERS CONGESTION/COVID TEST HEMATURIA, A-FIB/FLUTTER *MOODISPAW* Reason for Visit Fatigue Tremor Congenital heart disease Essential (primary) hypertension Mixed hyperlipidemia Paroxysmal atrial fibrillation COVID-19 Chief Complaint OSTEOPOROSIS reassess cardiovascular status EORDERS CONGESTION/COVID TEST HEMATURIA, A-FIB/FLUTTER *MOODISPAW* E ORDERS 1 Y FU Reason for Visit Fatigue Tremor Congenital heart disease Essential (primary) hypertension Mixed hyperlipidemia Paroxysmal atrial fibrillation COVID-19 CLARISSE (obstructive sleep apnea) Chief Complaint OSTEOPOROSIS reassess cardiovascular status EORDERS CONGESTION/COVID TEST HEMATURIA, A-FIB/FLUTTER *MOODISPAW* E ORDERS Reason for Visit Fatigue Tremor Congenital heart disease Essential (primary) hypertension Mixed hyperlipidemia Paroxysmal atrial fibrillation COVID-19 Chief Complaint reassess cardiovascu lar status EORDERS CONGESTION/COVID TEST HEMATURIA, A-FIB/FLUTTER *MOODISPAW* E ORDERS 1 Y FU ELEVATED LIVER ENZYMES Reason for Visit Fatigue Tremor Congenital heart disease Essential (primary) hypertension Mixed hyperlipidemia Paroxysmal atrial fibrillation COVID-19 CLARISSE (obstructive sleep apnea) Chief Complaint reassess cardiovascu lar status EORDERS CONGESTION/COVID TEST HEMATURIA, A-FIB/FLUTTER *MOODISPAW* E ORDERS 1 Y FU ELEVATED LIVER ENZYMES ESWL STENT RIGHT Reason for Visit Fatigue Tremor Congenital heart disease Essential (primary) hypertension Mixed hyperlipidemia Paroxysmal atrial fibrillation COVID-19 CLARISSE (obstructive sleep apnea) Chief Complaint CONGESTION/COVID JACY T HEMATURIA, A-FIB/FLUTTER *MOODISPAW* E ORDERS 1 Y FU ELEVATED LIVER ENZYMES ESWL STENT RIGHT Unilateral primary osteoarthritis, right knee/INT Reason for Visit COVID-19 CLARISSE (obstructive sleep apnea) Chief Complaint HEMATURIA, A-FIB/FLU TTER *MOODISPAW* E ORDERS 1 Y FU ELEVATED LIVER ENZYMES ESWL STENT RIGHT Unilateral primary osteoarthritis, right knee/INT RT 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 Reason for Visit CLARISSE (obstructive sle ep apnea) Postoperative bleeding from incision Status post total right knee replacement not using cement Chief Complaint PRESENCE OF RIGHT AR TIFICIAL KNEE JOINT Chief Complaint HEADACHE AND NAUSEA Chief Complaint CERVICAL DEGENERATIV E DISC Moved from 10 on 12/16/23 Follow per pcp 6 W FU PAROXYSMAL ATRIAL FIBRILLATION Reason for Visit Syncope Congenital heart disease Essential (primary) hypertension Paroxysmal atrial fibrillation CLARISSE (obstructive sleep apnea) Syncope Congenital heart disease Essential (primary) hypertension Paroxysmal atrial fibrillation Chief Complaint Admit Date SPINAL STENOSIS CERVIAL PT HAS RX Decemb er 2023 1:30pm UPPER THORAX PAIN, CERVICAL PAIN January [id number] 6:58am Chief Complaint Admit Date UPPER THORAX PAIN, CERVICAL PAIN January 092024 6:58am SECOND DEGREE AV BLOCK March 12, 2025 9:4 0am SECOND DEGREE AV BLOCK March 12, 2025 1:1 7pm AM EKG March 13, 2025 6:02am SECOND DEGREE AV BLOCK March 13, 2025 9:1 0am CERVICAL/THORACIC SPINE 2025 2 :22pm Room 4 2025 2:55p m CERVICAL DISC, RX HERE May 19, 2025 11 :30am Reason for Visit Admit Date Atrial flutter, paroxysmal March 12, 2025 9:40am Dehydration, mild March 12, 2025 9:40am Nausea March 12, 2025 9:40am MUÑOZ (dyspnea on exertion) March 12, 2025 9:40am Paroxysmal atrial fibrillation March 12, 2025 9:40am 2nd degree AV block March 12, 2025 9:40am Fatigue March 12, 2025 9:40am H/O laminectomy 2025 2:22p m Other cervical disc degenera tion, mid-cervical region, unspecified level 2025 2:22pm Family History No Family History Records Found Relationship Condition Age at Onset Recorded Date/T amarjit mother Hypertension Unknown Arthritis Unknown Cardiac disease Unknown father Malignant neoplasm Unknown brother Malignant neoplasm Unknown son Cerebrovascular accident (CVA) Unknown Diabetes mellitus Unknown brother Transient cerebral ischemia Unknown sister Malignant neoplasm Unknown Disorder of thyroid Unknown Advance Directives No Advanced Directives Records Found Date Activated Date Inactivated Comments 07/09/2024 12:43 AM 07/13/2024 4:22 PM Question Answer Comments Full Code Order Discussed With: Patient Advance Directive Response Recorded Date/ Time Advance Directives No April 13 1:15pm Living Will Yes August 21 11:21am Power of Clinical Operations Consultant Yes August 21, 2021 11:21am Advance Directive Response Recorded Date/ Time Advance Directives No April 13 1:15pm Living Will No July 30, 2022 9:11am Power of Clinical Operations Consultant No July 9:11am Advance Directive Response Recorded Date/ Time Advance Directives No April 13 12:15pm Living Will No September 17 10:09am Power of Clinical Operations Consultant No September 17, 2022 10:09am Advance Directive Response Recorded Date/ Time Advance Directives No April 13 12:15pm Living Will No October 01, 022 6:10pm Power of Clinical Operations Consultant No October 01, 2022 6:10pm Advance Directive Response Recorded Date/ Time Advance Directives No April 13 1:15pm Living Will No October 01, 022 7:10pm Power of Clinical Operations Consultant No October 01, 2022 7:10pm Advance Directive Response Recorded Date/ Time Advance Directives No April 13 12:15pm Living Will No October 12 3:18pm Power of Clinical Operations Consultant No October 12, 2023 3:18pm Advance Directive Response Recorded Date/ Time Advance Directives No April 13 1:15pm Living Will No October 12 4:18pm Power of Clinical Operations Consultant No October 12, 2023 4:18pm Date Activated Date Inactivated Comments 07/09/2024 12:43 AM Date Activated Date Inactivated Comments 07/15/2024 12:08 PM Date Activated Date Inactivated Comments 07/09/2024 12:43 AM 07/13/2024 4:22 PM Question Answer Comments Full Code Order Discussed With: Patient Date Activated Date Inactivated Comments 07/15/2024 12:08 PM Date Activated Date Inactivated Comments 07/09/2024 12:43 AM 07/13/2024 4:22 PM Question Answer Comments Full Code Order Discussed With: Patient Advance Directive Response Recorded Date/ Time Living Will No July 19 6:23pm Do you have a Healthcare Power of Clinical Operations Consultant? No July 19, 2024 6:23pm Advance Directives No April 13 1:15pm Advance Directive Response Recorded Date/ Time Do you have a Healthcare Power of Clinical Operations Consultant? Yes March 12, 2025 10:30am Name of Medical Power of Clinical Operations Consultant Isaac ingram March 12, 2025 10:30am Advance Directives No April 13 1:15pm Summary Purpose Additional Source Comments Goals (unrecognized section and content) Goals may be documented in a n alternate sectionGoals may be documented in an alternate sectionGoals may be documented in an alternate sectionGoals may be documented in an alternate sectionGoals may be documented in an alternate sectionGoals may be documented in an alternate sectionGoals may be documented in an alternate sectionGoals may be documented in an alternate sectionGoals may be documented in an alternate sectionGoals may be documented in an alternate sectionGoals may be documented in an alternate sectionGoals may be documented in an alternate sectionGoals may be documented in an alternate sectionGoals may be documented in an alternate section Source Comments (unrecognize d section and content) In the event this informatio n is protected by the Federal Confidentiality of Alcohol and Drug Abuse Patient Records regulations: The Federal rules restrict any use of the information to criminally investigate or prosecute any alcohol or drug abuse patient.[facility] the event this information is protected by the Federal Confidentiality of Alcohol and Drug Abuse Patient Records regulations: The Federal rules restrict any use of the information to criminally investigate or prosecute any alcohol or drug abuse patient.[facility] Hospital[facility] the event this information is protected by the Federal Confidentiality of Alcohol and Drug Abuse Patient Records regulations: The Federal rules restrict any use of the information to criminally investigate or prosecute any alcohol or drug abuse patient.[facility] HospitalIn the event this information is protected by the Federal Confidentiality of Alcohol and Drug Abuse Patient Records regulations: The Federal rules restrict any use of the information to criminally investigate or prosecute any alcohol or drug abuse patient.[facility] Hospital[facility] the event this information is protected by the Federal Confidentiality of Alcohol and Drug Abuse Patient Records regulations: The Federal rules restrict any use of the information to criminally investigate or prosecute any alcohol or drug abuse patient.[facility] the event this information is protected by the Federal Confidentiality of Alcohol and Drug Abuse Patient Records regulations: The Federal rules restrict any use of the information to criminally investigate or prosecute any alcohol or drug abuse patient.[facility] Hospital[facility] the event this information is protected by the Federal Confidentiality of Alcohol and Drug Abuse Patient Records regulations: The Federal rules restrict any use of the information to criminally investigate or prosecute any alcohol or drug abuse patient.[facility] HospitalIn the event this information is protected by the Federal Confidentiality of Alcohol and Drug Abuse Patient Records regulations: The Federal rules restrict any use of the information to criminally investigate or prosecute any alcohol or drug abuse patient.[facility] the event this information is protected by the Federal Confidentiality of Alcohol and Drug Abuse Patient Records regulations: The Federal rules restrict any use of the information to criminally investigate or prosecute any alcohol or drug abuse patient.[facility] HospitalIn the event this information is protected by the Federal Confidentiality of Alcohol and Drug Abuse Patient Records regulations: The Federal rules restrict any use of the information to criminally investigate or prosecute any alcohol or drug abuse patient.[facility] HospitalIn the event this information is protected by the Federal Confidentiality of Alcohol and Drug Abuse Patient Records regulations: The Federal rules restrict any use of the information to criminally investigate or prosecute any alcohol or drug abuse patient.[facility] Hospital[facility] the event this information is protected by the Federal Confidentiality of Alcohol and Drug Abuse Patient Records regulations: The Federal rules restrict any use of the information to criminally investigate or prosecute any alcohol or drug abuse patient.[facility] HospitalIn the event this information is protected by the Federal Confidentiality of Alcohol and Drug Abuse Patient Records regulations: The Federal rules restrict any use of the information to criminally investigate or prosecute any alcohol or drug abuse patient.[facility] HospitalIn the event this information is protected by the Federal Confidentiality of Alcohol and Drug Abuse Patient Records regulations: The Federal rules restrict any use of the information to criminally investigate or prosecute any alcohol or drug abuse patient.[facility] HospitalIn the event this information is protected by the Federal Confidentiality of Alcohol and Drug Abuse Patient Records regulations: The Federal rules restrict any use of the information to criminally investigate or prosecute any alcohol or drug abuse patient.[facility] HospitalIn the event this information is protected by the Federal Confidentiality of Alcohol and Drug Abuse Patient Records regulations: The Federal rules restrict any use of the information to criminally investigate or prosecute any alcohol or drug abuse patient.[facility] HospitalIn the event this information is protected by the Federal Confidentiality of Alcohol and Drug Abuse Patient Records regulations: The Federal rules restrict any use of the information to criminally investigate or prosecute any alcohol or drug abuse patient.[facility] HospitalIn the event this information is protected by the Federal Confidentiality of Alcohol and Drug Abuse Patient Records regulations: The Federal rules restrict any use of the information to criminally investigate or prosecute any alcohol or drug abuse patient.[facility] HospitalIn the event this information is protected by the Federal Confidentiality of Alcohol and Drug Abuse Patient Records regulations: The Federal rules restrict any use of the information to criminally investigate or prosecute any alcohol or drug abuse patient.[facility] HospitalIn the event this information is protected by the Federal Confidentiality of Alcohol and Drug Abuse Patient Records regulations: The Federal rules restrict any use of the information to criminally investigate or prosecute any alcohol or drug abuse patient.[facility] HospitalIn the event this information is protected by the Federal Confidentiality of Alcohol and Drug Abuse Patient Records regulations: The Federal rules restrict any use of the information to criminally investigate or prosecute any alcohol or drug abuse patient.[facility] HospitalIn the event this information is protected by the Federal Confidentiality of Alcohol and Drug Abuse Patient Records regulations: The Federal rules restrict any use of the information to criminally investigate or prosecute any alcohol or drug abuse patient.[facility] HospitalIn the event this information is protected by the Federal Confidentiality of Alcohol and Drug Abuse Patient Records regulations: The Federal rules restrict any use of the information to criminally investigate or prosecute any alcohol or drug abuse patient.[facility] HospitalIn the event this information is protected by the Federal Confidentiality of Alcohol and Drug Abuse Patient Records regulations: The Federal rules restrict any use of the information to criminally investigate or prosecute any alcohol or drug abuse patient.[facility] HospitalIn the event this information is protected by the Federal Confidentiality of Alcohol and Drug Abuse Patient Records regulations: The Federal rules restrict any use of the information to criminally investigate or prosecute any alcohol or drug abuse patient.[facility] Reason for Visit (unrecogniz ed section and content) Reason Comments Referral Request [facility] for Dr. 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 Atrial Fibrillation Persisitent Hypertension Sleep Apnea Does not have C-PAP Care Teams (unrecognized sec tion and content) Necktie Stitcher Relationship Specialty Start Date End Date Rip De La Garza MD [address] [place] [id number] PCP - General Family Practice 05/13/18 Necktie Stitcher Relationship Specialty Start Date End Date Rip De La Garza MD [address] [facility] [place] [place] [id number] PCP - General Family Practice 05/13/18 Necktie Stitcher Relationship Specialty Start Date End Date Rip De La Garza MD [address] [place], [place] [address] PCP - General Family Practice 05/13/18 Team Status: Active Member Role Status Dates Dr. Rip De La Garza MD Family Provider Active Dr. Rip De La Garza MD Primary Care Provider Active Team Status: Inactive Member Role Status Dates Dr. Rip De La Garza MD Primary Care Provider Active Dr. Radha Carvajal DO Attending Provider, Referring Provider Active Team Status: Inactive Member Role Status Dates Dr. Rip De La Garza MD Primary Care Provide r, Attending Provider, Referring Provider Active Team Status: Inactive Member Role Status Dates Dr. Rip De La Garza MD Primary Care Provider Active Dr. Earnest Haji DO Emergency Provider Active Team Status: Inactive Member Role Status Dates Dr. Rip De La Garza MD Primary Care Provider, Referring P rovider Active Rosario Quan NP, RIPSAW OPERATOR-C Attending Provider Active Team Status: Inactive Member Role Status Dates Dr. Rip De La Garza MD Primary Care Provider, Referring P rovider Active Dr. Radha Rodriguez MD Active Adrianna HYLTON PA Attending Provider Active Team Status: Inactive Member Role Status Dates Dr. Rip De La Garza MD Primary Care Provider, Referring P rovider Active Adrianna HYLTON PA Attending Provider Active Team Status: Inactive Member Role Status Dates Dr. Rip De La Garza MD Primary Care Provider Active RIPSAW OPERATORMary Kilgore Attending Provider, Referring Provid er Active Team Status: Inactive Member Role Status Dates Dr. Rip De La Garza MD Primary Care Provider Active Adrianna Box PA, PA Attending Provider, Referr ing Provider Active Necktie Stitcher Relationship Specialty Start Date End Date Rip De La Garza MD [address] [place] [id number] PCP - General Family Medicine 05/13/18 [place] [address] [place] [address] [place] [address] Referring Internal Medicine 07/13/24 Necktie Stitcher Relationship Specialty Start Date End Date Rip De La Garza MD [address] [place] [id number] PCP - General Family Medicine 05/13/18 Regi Riojas MD [address] [place] [address] Referring Internal Medicine 07/13/24 Rip De La Garza MD [address] [facility] [address] [place] [address] Home Care Provider Family Medicine 07/14/24 Pratima Veras, PT [address] [place] [address] Beautician Apprentice Post Acute Care 07/14/24 Necktie Stitcher Relationship Specialty Start Date End Date Rip De La Garza MD [address] [place] [address] PCP - General Family Medicine 05/13/18 Regi Riojas MD [address] [place] [address] Referring Internal Medicine 07/13/24 Rip De La Garza MD [address] [facility] [address] [place] [address] Home Care Provider Family Medicine 07/14/24 Pratima Veras, PT [address] [place] [address] Beautician Apprentice Post Acute Care 07/14/24 Necktie Stitcher Relationship Specialty Start Date End Date Rip De La Garza MD [address] [place] [address] PCP - General Family Medicine 05/13/18 Regi Riojas MD [address] [place] [address] Referring Internal Medicine 07/13/24 Rip De La Garza MD [address] [place] [address] Home Care Provider Family Medicine 07/14/24 Pratima Veras, PT [address] [place] [address] Beautician Apprentice Post Acute Care 07/14/24 Necktie Stitcher Relationship Specialty Start Date End Date Rip De La Garza MD [address] [place] [address] PCP - General Family Medicine 05/13/18 Regi Riojas MD [address] [place] [address] Referring Internal Medicine 07/13/24 Rip De La Garza MD [address] [facility] [address] [place] [address] Home Care Provider Family Medicine 07/14/24 Pratima Veras, PT [address] [place] [address] Beautician Apprentice Post Acute Care 07/14/24 Necktie Stitcher Relationship Specialty Start Date End Date Rip De La Garza MD [address] [place] [address] PCP - General Family Medicine 05/13/18 Regi Riojas MD [address] [place] [address] Referring Internal Medicine 07/13/24 Rip De La Garza MD [address] [facility] [address] [place] [address] Home Care Provider Family Medicine 07/14/24 Pratima Veras, PT [address] [facility] [place] [address] Beautician Apprentice Post Acute Care 07/14/24 Necktie Stitcher Relationship Specialty Start Date End Date Rip De La Garza MD [address] [place] [address] PCP - General Family Medicine 05/13/18 Regi Riojas MD [address] [place] [address] Referring Internal Medicine 07/13/24 Rip De La Garza MD [address] [facility] [address] [place] [address] Home Care Provider Family Medicine 07/14/24 Pratima Veras, PT [address] [place] [address] Beautician Apprentice Post Acute Care 07/14/24 Necktie Stitcher Relationship Specialty Start Date End Date Rip De La Garza MD [address] [place] [address] PCP - General Family Medicine 05/13/18 Regi Riojas MD [address] [place] [address] Referring Internal Medicine 07/13/24 Rip De La Garza MD [address] [facility] [address] [place] [address] Home Care Provider Family Medicine 07/14/24 Pratima Veras, PT [address] [place] [address] 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 Rip De La Garza MD Primary Care Provider Active Team Status: Inactive Member Role Status Dates Dr. Rip De La Garza MD Primary Care Provider Active Start: October 16, 2024 End: October 16, 2024 Abdulaziz Banegas MD Attending Provider Active Star t: October 16, 2024 End: October 16, 2024 Abdulaziz Banegas MD Referring Provider Active Star t: October 16, 2024 End: October 16, 2024 Team Status: Inactive Member Role Status Dates Dr. Rip De La Garza MD Primary Care Provider Active Start: January 26, 2025 End: January 26, 2025 Dr. Rip De La Garza MD Attending Provider Active St art: January 26, 2025 End: January 26, 2025 Dr. Rip De La Garza MD Referring Provider Active St art: January 26, 2025 End: January 26, 2025 Team Status: Active Member Role/Relationship Status Dates Dr. Rip De La Garza MD Primary Care Provider Active Team Status: Inactive Member Role/Relationship Status Dates Dr. Rip De La Garza MD Primary Care Provider Active Start: January 26, 2025 End: January 26, 2025 Dr. Rip De La Garza MD Attending Provider Active St art: January 26, 2025 End: January 26, 2025 Dr. Rip De La Garza MD Referring Provider Active St art: January 26, 2025 End: January 26, 2025 Team Status: Inactive Member Role/Relationship Status Dates Dr. Rip De La Garza MD Primary Care Provider Active Start: March 12, 2025 End: March 13, 2025 Dr. Tex Chavarria DO Emergency Provider Active S tart: March 12, 2025 End: March 13, 2025 Dr. Anthony Owen MD Admit Provider Active Star t: March 12, 2025 End: March 13, 2025 Dr. Anthony Owen MD Attending Provider Active Start: March 12, 2025 End: March 13, 2025 Dr. Quincy Martin MD Other Provider Active Star t: March 12, 2025 End: March 13, 2025 Dr. Quincy Martin MD Other Provider Active Star t: March 12, 2025 Team Status: Active Member Role/Relationship Status Dates Dr. Rip De La Garza MD Primary Care Provider Active Start: March 12, 2025 Dr. Tex Chavarria DO Emergency Provider Active S tart: March 12, 2025 Dr. Anthony Owen MD Admit Provider Active Star t: March 12, 2025 Dr. Anthony Owen MD Other Provider Active Star t: March 12, 2025 Dr. Quincy Martin MD Attending Provider Active Start: March 12, 2025 Dr. Quincy Martin MD Other Provider Active Star t: March 12, 2025 Team Status: Active Member Role/Relationship Status Dates Dr. Rip De La Garza MD Primary Care Provider Active Start: March 13, 2025 End: March 13, 2025 Dr. Cory Montes MD Attending Provider Active S tart: March 13, 2025 End: March 13, 2025 Dr. Anthony Owen MD Referring Provider Active Start: March 13, 2025 End: March 13, 2025 Team Status: Active Member Role/Relationship Status Dates Dr. Rip De La Garza MD Primary Care Provider Active Start: March 13, 2025 Dr. Tex Chavarria DO Emergency Provider Active S tart: March 13, 2025 Dr. Anthony Owen MD Admit Provider Active Star t: March 13, 2025 Dr. Anthony Owen MD Attending Provider Active Start: March 13, 2025 Dr. Anthony Owen MD Other Provider Active Star t: March 13, 2025 Dr. Quicny Martin MD Other Provider Active Star t: March 13, 2025 Team Status: Inactive Member Role/Relationship Status Dates Dr. Rip De La Garza MD Primary Care Provider Active Start: 2025 End: 2025 Dr. Rip De La Garza MD Referring Provider Active St art: 2025 End: 2025 Dr. Juan Manuel Martinez MD Attending Provider Active Start: 2025 End: 2025 Team Status: Inactive Member Role/Relationship Status Dates Dr. Rip De La Garza MD Primary Care Provider Active Start: 2025 End: 2025 Dr. Cory Montes MD Attending Provider Active S tart: 2025 End: 2025 Team Status: Inactive Member Role/Relationship Status Dates Dr. Rip De La Garza MD Primary Care Provider Active Start: May 19, 2025 End: May 19, 2025 Dr. Juan Manuel Martinez MD Attending Provider Active Start: May 19, 2025 End: May 19, 2025 Dr. Juan Manuel Martinez MD Referring Provider Active Start: May 19, 2025 End: May 19, 2025 Necktie Stitcher Relationship Specialty Start Date End Date Rip De La Garza [address] [place] [address] PCP - General Family Medicine 01/05/25 INFORMATION SOURCE (unrecogn ized section and content) DATE CREATED AUTHOR 07/13/2024 [facility]ter DATE CREATED AUTHOR AUTHOR'S ORGANIZ ATION 07/28/2024 [facility] DATE CREATED AUTHOR AUTHOR'S ORGANIZ ATION 05/25/2025 [facility] DATE CREATED AUTHOR AUTHOR'S ORGANIZ ATION 05/29/2025 [facility] FOR RECORDS PERTAINING TO PATIENTS WHO ARE OR HAVE BEEN ENROLLED IN A CHEMICAL DEPENDENCY/SUBSTANCEABUSE PROGRAM, SOME INFORMATION MAY BE OMITTED. This clinical summary was aggregated from multiple sources. Caution should be exercised in using it in the provision of clinical care. This summary normalizes information from multiple sources, and as a consequence, information in this document may materially change the coding, format and clinical context of patient data. In addition, data may be omitted in some cases. CLINICAL DECISIONS SHOULD BE BASED ON THE PRIMARY CLINICAL RECORDS. [employer] provides no warranty or guarantee of the accuracy or completeness of information in this document.
[2025-05-29 18:57] LABS: Prothrombin Time (Protime)PT. 16.3 SECONDS (11.7-14.9)
[2025-05-29 18:58] LABS: Partial Thromboplast Time 31.7 Seconds (24.1-36.2)
[2025-05-29 19:01] LABS: AST(SGOT) 30 U/L (<=31); Alanine Aminotransfer ALT/SGPT 16 U/L (<=34); Albumin, Serum 4.1 g/dL (3.4-4.8); Alkaline Phosphatase 130 U/L (35-104); Anion Gap 13 (5-15); BUN 32 mg/dL (4-19); BUN/Creat Ratio 22.4 RATIO (10-20); Calcium,Total 9.4 mg/dL (7.6-11.0); Carbon Dioxide 22.8 mmol/L (21.0-32.0); Chloride 103 mmol/L (98-108); Estimated Creatinine Clearance 24.46 ml/min (50-250); Globulin 2.8 g/dL (2.2-4.2); Glucose 211 mg/dL (70-99); Potassium 4.2 mmol/L (3.3-5.1)
[2025-05-29] MEDS: 0.9% Normal Saline (1000mL) 1,000 ML 999 ML IV ×2 (19:16→20:57)
[2025-05-29] MEDS: DOPamine IV 800 MG/250 ML IV.SOLN. 5.2 MG CONT INF (19:23)
[2025-05-29 20:08] LABS: Color, Urine Yellow (Yellow); Glucose, Dipstick Normal (Normal); Ketone-Dipstick 5 mg/dl (Negative); Leukocyte Esterase-Dipstick 100 /ul (Negative); Nitrite-Dipstick Negative (Negative); Occult Blood-Urine 10 /ul (Negative); Protein-Dipstick 100 mg/dl (Negative); Specific Gravity, Urine 1.020 (1.002-1.030)
[2025-05-29 20:10] LABS: Urine Bilirubin Dipstick 1 mg/dL (Negative)
--- NOTE | 2025-05-29 20:13 | ED.RN ---
Dr. Fadi Krueger notified of core temp of 93 when temp rojo was placed, output of 10 ml on placement of temp rojo, and richy hugger placement. will continue to monitor
[2025-05-29 20:37] LABS: Mucous, Urine 1+ /hpf (<or=2+); Red Blood Cells-Urine 0-5 SEEN /hpf (0-5); Squamous Epithelial Cells - UA 0-5 SEEN /hpf (5-10); Transitional Epithelial - Ur 0-5 SEEN /hpf (0-5)
[2025-05-29 20:44] LABS: Calcium Oxalate Crystals Ur 1+ /hpf (<or=2+)
--- NOTE | 2025-05-29 21:19 | PCM.HP.STD ---
[facility] - General General Date of Admission: 05/29/25 Date of Service: 05/29/25 Chief Complaint: Weakness and Lightheadedness. HPI Narrative RUBEN KENNEY, is a 80 F with a past medical history of essential hypertension; on metoprolol twice daily, history of hyperlipidemia; currently not on treatment, congenital heart disease with ASD; s/p repair, paroxysmal atrial fibrillation; on diltiazem TID daily plus apixaban BID followed by [facility], history of DCCV (2016), history of mitral valve insufficiency, CLARISSE, history of pulmonary hypertension, history of syncope, RLS, depression with anxiety; on sertraline, history of chronic cholecystitis with calculus, GERD with history of hiatal hernia; s/p Himanshu fundoplication (2018) on pantoprazole, OA; with history of right TKR plus chronic back pain; s/p laminectomy on oxycodone nightly as needed and history of admission here from March 12, 2025 to March 13, 2025 for treatment of atrial fibrillation; with 2-1 block and EKG in the ER revealing Mobitz type II AV block with echocardiogram on March 13, 2025 that revealed LVEF ~60% with 1+ mitral valve insufficiency and 2+ tricuspid valve insufficiency which was not significantly changed from previous echocardiogram who presents to [facility] [place] complaining of weakness and lightheadedness. Ms. Kenney reports her symptoms began just prior to arrival when she was eating dinner with her sister and suddenly began to feel weak and lightheaded. Her sister brought her in via private vehicle and was noted to have a systolic blood pressure in the ~60 mmHg range with a EKG that revealed atrial flutter; with variable AV block and a rate of [address] changes and she was subsequently diagnosed with cardiogenic shock that was treated with aggressive volume resuscitation and 1 mg of atropine x 2 followed by dopamine drip IV with spontaneous conversion back to normal sinus rhythm and blood pressure increasing to 108/71 mmHg. She was also noted to have transient hypothermia requiring Maikol hugger and laboratory evidence of AURELIA; with elevated serum creatinine of 1.43 mg/dL (up from 0.69 mg/dL last admission) and Lactic Acidosis of 2.8 mmol/L present on admission during concern for sepsis but with no signs of infection including negative urinalysis and patient stating she was feeling completely fine up until this event. She denies associated fever, chills, nausea, vomiting, diarrhea, constipation, blood in stools, abdominal pain, chest pain, palpitations, heart racing, lower extremity edema, dysuria, hematuria, headache, rash or wounds. The ER physician spoke directly with the snow removal supervisor on-call who recommended holding her AV magdalene blocking agents including diltiazem and metoprolol with formal consultation pending in the a.m. and appreciated advance. She was then admitted to the PCU for ongoing care for a stay that is expected to extend beyond 2 midnights. [facility] Medical History Postoperative hematoma Dehydration Dizziness Intractable pain UTI (urinary tract infection) Wears hearing aid Arthritis Restless legs Shortness of breath on exertion On amiodarone therapy Wears dentures Post-menopausal Depression Anxiety Rheumatoid arthritis History of hiatal hernia Gastric reflux Non-smoker CPAP (continuous positive airway pressure) dependence Sleep apnea History of pain when walking History of echocardiogram History of stress test Hypertension Cardiology follow-up encounter History of atrial fibrillation History of cardioversion CLARISSE (obstructive sleep apnea) 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 Pulmonary hypertension Chronic cholecystitis with calculus Paroxysmal atrial fibrillation Essential (primary) hypertension Esophageal hiatal hernia 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, left 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 Atrial flutter GERD (gastroesophageal reflux disease) Home Medications ?Medication ?Instructions ?Recorded ?Last Taken ?Type sertraline 100 mg tablet 100 mg PO QHS sleep 12/14/20 03/11/25 History cholecalciferol (vitamin D3) 50 50 mcg PO DAILY vitamin 07/19/24 03/11/25 History mcg (2,000 unit) capsule pantoprazole 40 mg tablet,delayed 40 mg PO DAILY reflux #90 tabs 08/19/24 03/11/25 Rx release magnesium oxide 400 mg PO DAILY SUPPLEMENT 03/12/25 03/11/25 History apixaban 2.5 mg tablet (Eliquis) 2.5 mg PO BID 05/29/25 Unknown History ascorbic acid (vitamin C) 500 mg 500 mg PO QDAY 05/29/25 Unknown History tablet diltiazem HCl 180 mg 180 mg PO Q24H 05/29/25 Unknown History capsule,extended release 24 hr duloxetine 20 mg capsule,delayed 20 mg PO DAILY 05/29/25 Unknown History release hydrocodone-acetaminophen 5-325mg 1 tab PO Q6H PRN PRN pain 05/29/25 Unknown History 5mg-325mg indapamide 1.25 mg tablet 0.625 mg PO DAILY 05/29/25 Unknown History metoprolol succinate 50 mg 50 mg PO QPM 05/29/25 Unknown History tablet,extended release 24 hr Allergy/AdvReac Type Severity Reaction Status Date / Time No Known Allergies Allergy Verified 03/22/25 14:44 Family History Mother Hypertension Arthritis Heart disease Father Cancer Brother Cancer Son CVA (cerebral vascular accident) Diabetes Brother TIA (transient ischemic attack) Sister Cancer kidney cancer Thyroid disorder Surgical History Status post right knee replacement Hx of cystoscopy History of arthroscopy of right knee History of cardiac catheterization History of open heart surgery History of cholecystectomy History of atrial septal defect repair History of appendectomy Status post laparoscopic Himanshu fundoplication (~11/2018) History of hysterectomy Social History Smoking Status: Never smoker alcohol intake: never substance use type: does not use caffeine: Yes Type: coffee Number of servings: 1 what type of physical activity do you participate in: walking frequency: daily duration: 30-45 minutes/day seatbelt use: always do you feel safe at home: Yes ROS ROS Narrative Review of Systems: Constitutional: Patient admits to lightheadedness and weakness but she denies fever or chills. Eyes: Patient denies changes in vision or discharge from eyes. ENT: Patient denies runny nose, sore throat or ear pain. Resp: Patient denies SOB, cough or wheezing. CV: Patient denies chest pain, palpitations, heart racing or lower extremity edema. GI: Patient denies abdominal pain, nausea, vomiting, diarrhea or constipation. : Patient denies dysuria, hematuria or urinary frequency. MSK: Patient denies arthralgias or myalgias. Skin: Patient denies rash, abscess, wounds or jaundice. Psych: Patient denies symptoms of uncontrolled depression or anxiety. Neuro: Patient denies headache, paresthesias or focal neurologic deficits. Allergy: Patient denies lip swelling, tongue swelling or urticaria. Hematology: Patient admits to easy bleeding and bruisability on apixaban. Endocrinology: Patient denies polyuria, polydipsia or polyphagia. 14 point ROS otherwise negative except for positives noted above in HPI. Vital Signs Vital Signs Vital Signs: 05/29/25 18:08 05/29/25 18:18 05/29/25 18:19 Temperature 97.7 F L 97.2 F L Temperature Source Temporal Temporal Pulse Rate 67 63 Respiratory Rate 16 17 Respiratory Pattern Normal Blood Pressure 67/47 L 65/45 L Blood Pressure Mean 53 51 Pulse Ox 95 92 Oxygen Delivery Method Room Air Room Air Oxygen Flow Rate (L/min) 05/29/25 18:20 05/29/25 18:27 05/29/25 18:29 Temperature Temperature Source Pulse Rate 44 L 56 L Respiratory Rate 22 H 23 H Respiratory Pattern Blood Pressure 64/52 L Blood Pressure Mean 56 Pulse Ox 99 95 91 Oxygen Delivery Method Room Air Room Air Oxygen Flow Rate (L/min) 05/29/25 18:30 05/29/25 18:33 05/29/25 18:35 Temperature Temperature Source Pulse Rate 52 L 53 L 65 Respiratory Rate 29 H 22 H 18 Respiratory Pattern Blood Pressure 71/48 L 69/55 L 69/55 L Blood Pressure Mean 55 59 62 Pulse Ox 87 98 Oxygen Delivery Method Room Air Oxygen Flow Rate (L/min) 05/29/25 18:40 05/29/25 18:40 05/29/25 18:43 Temperature Temperature Source Pulse Rate 54 L 58 L 58 L Respiratory Rate 24 H 23 H 19 H Respiratory Pattern Blood Pressure 71/51 L 71/51 L 69/48 L Blood Pressure Mean 57 60 57 Pulse Ox 97 100 99 Oxygen Delivery Method Nasal Cannula Oxygen Flow Rate (L/min) 2 05/29/25 18:45 05/29/25 18:50 05/29/25 18:55 Temperature Temperature Source Pulse Rate 48 L 58 L 56 L Respiratory Rate 17 23 H 24 H Respiratory Pattern Blood Pressure 76/63 L 75/51 L 73/54 L Blood Pressure Mean 69 60 61 Pulse Ox 100 Oxygen Delivery Method Oxygen Flow Rate (L/min) 05/29/25 19:00 05/29/25 19:03 05/29/25 19:05 Temperature Temperature Source Pulse Rate 57 L 58 L 59 L Respiratory Rate 37 H 30 H 21 H Respiratory Pattern Blood Pressure 73/59 L 73/59 L 75/55 L Blood Pressure Mean 66 63 63 Pulse Ox 100 100 Oxygen Delivery Method Nasal Cannula Oxygen Flow Rate (L/min) 2 05/29/25 19:10 05/29/25 19:12 05/29/25 19:15 Temperature 97.7 F L Temperature Source Oral Pulse Rate 51 L 60 43 L Respiratory Rate 14 26 H 12 Respiratory Pattern Blood Pressure 77/48 L 72/43 L 65/45 L Blood Pressure Mean 58 52 53 Pulse Ox 100 97 100 Oxygen Delivery Method Nasal Cannula Oxygen Flow Rate (L/min) 2 05/29/25 19:18 05/29/25 19:21 05/29/25 19:23 Temperature Temperature Source Pulse Rate 56 L 60 79 Respiratory Rate 14 18 Respiratory Pattern Blood Pressure 72/43 L 80/53 L 83/61 L Blood Pressure Mean 54 62 68 Pulse Ox 96 Oxygen Delivery Method Oxygen Flow Rate (L/min) 05/29/25 19:24 05/29/25 19:27 05/29/25 19:30 Temperature Temperature Source Pulse Rate 81 77 79 Respiratory Rate 17 19 H 22 H Respiratory Pattern Blood Pressure 89/67 L 83/61 L 94/63 Blood Pressure Mean 76 70 74 Pulse Ox 97 98 Oxygen Delivery Method Oxygen Flow Rate (L/min) 05/29/25 19:33 05/29/25 19:40 05/29/25 19:42 Temperature Temperature Source Pulse Rate 74 72 80 Respiratory Rate 23 H 23 H 17 Respiratory Pattern Blood Pressure 83/58 L 84/51 L 84/56 L Blood Pressure Mean 67 63 65 Pulse Ox 96 94 Oxygen Delivery Method Oxygen Flow Rate (L/min) 05/29/25 19:45 05/29/25 19:51 05/29/25 19:53 Temperature 90.7 F L 92.5 F L Temperature Source Core Core Pulse Rate 77 82 84 Respiratory Rate 21 H 34 H Respiratory Pattern Blood Pressure 82/53 L 75/58 L 75/58 L Blood Pressure Mean 62 65 63 Pulse Ox 98 91 Oxygen Delivery Method Oxygen Flow Rate (L/min) 05/29/25 20:00 05/29/25 20:00 05/29/25 20:10 Temperature 95.7 F L 95.6 F L 96.6 F L Temperature Source Core Core Core Pulse Rate 89 84 96 Respiratory Rate 30 H 24 H 24 H Respiratory Pattern Blood Pressure 89/40 L 102/53 L 94/64 Blood Pressure Mean 56 69 74 Pulse Ox 95 99 94 Oxygen Delivery Method Nasal Cannula Nasal Cannula Oxygen Flow Rate (L/min) 2 2 05/29/25 20:25 05/29/25 20:40 05/29/25 20:55 Temperature 97.1 F L 97.3 F L 97.9 F Temperature Source Core Core Core Pulse Rate 96 99 98 Respiratory Rate 18 20 H 26 H Respiratory Pattern Blood Pressure 115/47 L 91/54 L 97/67 Blood Pressure Mean 69 66 77 Pulse Ox 94 89 94 Oxygen Delivery Method Nasal Cannula Nasal Cannula Nasal Cannula Oxygen Flow Rate (L/min) 2 2 2 05/29/25 21:08 Temperature 98.0 F Temperature Source Core Pulse Rate 99 Respiratory Rate 24 H Respiratory Pattern Blood Pressure 108/71 Blood Pressure Mean 83 Pulse Ox 92 Oxygen Delivery Method Nasal Cannula Oxygen Flow Rate (L/min) 2 Weight Weight: 121 lb 11.123 oz Body Mass Index (BMI) 23.8 Physical Exam Const alert, oriented x3, no apparent distress, average body habitus and healthy appearing General Appearance: cooperative HEENT normocephalic, head/scalp atraumatic, hearing grossly normal bilaterally and moist oral mucous membranes Eyes PERRL, EOMs intact bilaterally and conjunctivae normal Neck no lymphadenopathy, supple and no JVD Resp normal respiratory effort, no retractions, no use of accessory muscles and clear to auscultation bilaterally Cardio regular rate and regular rhythm GI normal to inspection, nondistended, normoactive bowel sounds, soft to palpation, non-tender and non-distended Extremity normal to inspection, full ROM and no clubbing, cyanosis or edema Skin Skin Narrative: Patient has evidence of rash, abscess, wounds or jaundice. Neuro oriented x3, CN's II-XII intact bilaterally, moves all extremities and no focal motor deficits Sensorium / Orientation: awake, alert, oriented to person, oriented to place and oriented to time Speech: speech normal Psych affect normal Results Medical Records Data Attestation: I reviewed the patient's medical records Lab / Micro Data Attestation: I reviewed the patient's lab results. 05/30/25 04:26 05/30/25 04:26 Labs: Laboratory Results - last 24 hr 05/29/25 18:15: WBC 7.6, RBC 4.34, Hgb 12.2, Hct 38.2, MCV 88.0, MCH 28.1, MCHC 31.9 L, RDW Std Deviation 48.8 H, RDW Coeff of Reji 15.1 H, Plt Count 181, MPV 11.6, Immature Gran % (Auto) 0.400, Neut % (Auto) 61.1, Lymph % (Auto) 27.1, Garden % (Auto) 9.4, Eos % (Auto) 1.2, Baso % (Auto) 0.8, Absolute Neuts (auto) 4.6, Absolute Lymphs (auto) 2.05, Nucleated RBC % 0, PT 16.3 H, INR 1.3, APTT 31.7, Sodium 139, Potassium 4.2, Chloride 103, Carbon Dioxide 22.8, Anion Gap 13, BUN 32 H, Creatinine 1.43 H, Estim Creat Clear Calc 24.46 L, Est GFR (MDRD) Non-Af 37 L, BUN/Creatinine Ratio 22.4 H, Glucose 211 H, Lactic Acid 2.8 H*, Calcium 9.4, Total Bilirubin 0.46, AST 30, ALT 16, Alkaline Phosphatase 130 H, Total Protein 6.9, Albumin 4.1, Globulin 2.8, Albumin/Globulin Ratio 1.4 05/29/25 18:25: Blood Type O POSITIVE, Antibody Screen NEGATIVE 05/29/25 19:56: Urine Color Yellow, Urine Clarity Sl. Cloudy, Urine pH 5.0, Ur Specific [place] 1.020, Urine Protein 100 H, Urine Glucose (UA) Normal, Urine Ketones 5 H, Urine Occult Blood 10 H, Urine Nitrite Negative, Urine Bilirubin 1 H, Urine Urobilinogen 1 H, Ur Leukocyte Esterase 100 H, Urine RBC 0-5 SEEN, Urine WBC 0-5 SEEN, Ur Squamous Epith Cells 0-5 SEEN, Ur Transition Epith Cell 0-5 SEEN, Calcium Oxalate Crystal 1+, Urine Bacteria 2+, Hyaline Casts 50-100 SEEN, Urine Mucus 1+ Imaging Radiology Impression Chest X-Ray 05/29/25 18:45 IMPRESSION: 1. Increased interstitial markings, which may represent pulmonary edema or atypical/viral infection 2. Opacity at the aortopulmonary window, in keeping with known enlargement of the pulmonary artery in this location, appears intervally enlarged compared to most recent radiographs on 07/19/2024. Reading Location: [id number] Imaging Services [address] [place] [id number] Chest without Contrast MR#: [id number] Acct: [id number] Name: RUBEN KENNEY Rep #: [id number] : 1945 F 80 From: Isaac Hayward MD PCP: Dr. Jame De La Garza MD Status: ADM IN Study: Chest without Contrast Date of Exam: 05/29/25 Exam# [id number] Ordering Dr: Anthony Arnold DO PROCEDURE: CHEST WITHOUT CONTRAST 05/29/2025 REASON FOR EXAM: ABNORMAL CXR WITH FEVER. TECHNIQUE: Chest CT without contrast. Coronal and Sagittal reconstruction series were provided. One or more dose reduction techniques were used (e.g., Automated exposure control, adjustment of the mA and/or kV according to patient size, use of iterative reconstruction technique RADIATION DOSE SUMMARY: CTDlvol: 7.5 mGy DLP: 241 mGycm COMPARISON: Chest radiographs 05/29/2025, CT thoracic spine 07/19/2024 FINDINGS: Lymph nodes: No significant thoracic lymphadenopathy. Heart and Vasculature: Cardiomegaly, predominantly of the atria, similar to prior. Multivessel coronary calcifications. Additionally, there are pericardial calcifications which are unchanged. Marked enlargement of the pulmonary arteries, with the main pulmonary artery measuring 4.4 cm in diameter and the left pulmonary artery measuring 4.8 cm (previously 4.5 cm on 07/19/2024). Aortic atherosclerosis without aneurysm. Lungs and Airways: Respiratory motion limits evaluation. Central airways are predominantly clear. Interlobular septal thickening bilaterally. Consolidation at the periphery of the right middle lobe Pleura: Trace calcification along the pleura overlying the right middle lobe. No significant effusion. No pneumothorax. Upper Abdomen: Small hiatal hernia. Mild thickening of both adrenal glands. Bones: Postoperative changes from laminectomy in the upper thoracic spine. Vertebral body hemangiomas at several levels, unchanged. Degenerative changes of the spine and shoulders. CT/Chest without Contrast IMPRESSION: 1. Slight interval worsening of pulmonary artery dilation since 07/19/2024. Cardiomegaly with biatrial enlargement and pericardial calcifications are unchanged. Consider Cardiology consultation, in addition to echocardiogram and MRI if not previously performed. 2. Interlobular septal thickening, likely the result of pulmonary edema. 3. Peripheral consolidation in the right middle lobe may represent atelectasis, though infection could appear similar. Reading Location: [id number] CC: Dr. Anthony Arnold DO; Dr. 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: Signed Assessment & Plan Assessment/Plan (1) Cardiogenic shock: (2) Symptomatic bradycardia: (3) Hypotension: QUALIFIERS: Hypotension type: unspecified hypotension type Qualified Code(s): I95.9 - Hypotension, unspecified (4) Hypothermia: QUALIFIERS: Encounter type: initial encounter Qualified Code(s): T68.XXXA - Hypothermia, initial encounter (5) Atypical atrial flutter: (6) Lactic acidosis: (7) AURELIA (acute kidney injury): (8) Adverse drug reaction: QUALIFIERS: Encounter type: initial encounter Qualified Code(s): T50.905A - Adverse effect of unspecified drugs, medicaments and biological substances, initial encounter PLAN: Plan 1. Cardiogenic Shock; with associated bradycardia, hypotension and transient hypothermia requiring Maikol hugger - Admit to PCU. Patient improved remarkably after expert care rendered in ER with patient off Maikol hugger and dopamine and currently in normal sinus rhythm. Check TSH and serum cortisol level. Serialize troponin. Hold all AV magdalene blocking agents. Give ondansetron IV as needed for nausea vomiting. Finally, we will consult [facility] to see this patient on rounds in the a.m. for further recommendations without appreciated in advance. 2. EKG that revealed atrial flutter; with variable AV block and a rate of 45 bpm causing #1 - Patient currently has converted to NSR. 3. Lactic Acidosis of 2.8 mmol/L present on admission during concern for sepsis but with no signs of infection including negative urinalysis complicating #1 & #2 - Recheck lactate and closely monitor. 4. AURELIA; with elevated serum creatinine of 1.43 mg/dL (up from 0.69 mg/dL last admission) adding to the medical complexity of #1 - #3 - Gently volume resuscitate and recheck renal indices in a.m. to follow trend for improvement. 5. Adverse Drug Reaction to combination of diltiazem and metoprolol likely triggering #1 - #4 - We we will hold both diltiazem and metoprolol until further notice. Give digoxin IV as needed for rapid ventricular response if it should develop. 6. History of admission here from March 12, 2025 to March 13, 2025 for treatment of atrial fibrillation; with 2-1 block and EKG in the ER revealing Mobitz type II AV block with echocardiogram on March 13, 2025 that revealed LVEF ~60% with 1+ mitral valve insufficiency and 2+ tricuspid valve insufficiency which was not significantly changed from previous echocardiogram on chronic apixaban - Noted. 7. Congenital heart disease with ASD; s/p repair, paroxysmal atrial fibrillation; on diltiazem TID daily plus apixaban BID followed by [facility] - Noted. 8. Essential hypertension; on metoprolol twice daily - Hold metoprolol as noted in #5. 9. History of hyperlipidemia; currently not on treatment - Check lipid profile to confirm status. 10. History of DCCV (2016) - Noted. 11. CLARISSE - Maintain nocturnal CPAP as previous. 12. History of pulmonary hypertension - Noted. 13. History of syncope - Noted. 14. RLS - Stable. 15. Depression with anxiety; on sertraline - Continue sertraline as before. 16. History of chronic cholecystitis with calculus - Noted. 17. GERD with history of hiatal hernia; s/p Himanshu fundoplication (2019) on pantoprazole - Maintain PPI. 18. OA; with history of right TKR plus chronic back pain; s/p laminectomy on oxycodone nightly as needed - Give acetaminophen as needed for [id number] (level 1-5/10) pain or fever. Give oxycodone as needed for severe (level 6-10/10) pain. 19. DVT prophylaxis - Patient is already on apixaban as outlined in #6 which will be continued. Total time: Approximately (but not less than) 75 minutes. Charges/Coding Visit Charges Inpatient E&M: 34155 Init Hosp L3
--- OUTSIDE RECORDS SUMMARY | 2025-05-29 22:17 | XMS RPT_ITS | CCD ---
Author Organization [facility]ini[facility] Care Team Providers Care Human Resources Records Clerk Name Role Phone Donna RN, Lauryn Solorzano Unavailable Unavailable Donna RN, Lauryn Solorzano Unavailable Unavailable Jack Duran MD Unavailable Irene, RN, Michelle Campos Unavailable Pete Bonilla RN, Michelle Campos Unavailable Unavailgerardo Thompson RN, Lauryn Solorzano Unavailable Unavailable Donna MARAVILLA, Lauryn Solorzano Unavailable Unavailable Jack Duran MD Unavailable Rip De La Garza MD Primary Care Provider Dr. Rip De La Garza Primary Care Provider Dr. Rip De La Garza Referring Provider Tj ADAMS, BUCKLE SEWER-C Radha Attending Provider CONCETTA Leyva Attending Provider Dr. Jack Duran Attending Provider [phone] Christopher Devine Attending Provider Dr. Rip De La Garza Primary Care Provider [phone] Dr. Rip De La Garza Referring Provider CONCETTA Leyva Attending Provider Dr. Jack Duran Attending Provider [phone] Christopher Devine Attending Provider [phone] Dr[address] Rip De La Garza Primary Care Provider Dr. Rip De La Garza Referring Provider [phone] Dr. Rip De La Garza Primary Care Provider [phone] Rip De La Garza Referring Provider [phone] CONCETTA Rivero Attending Provider Kadeem ADAMS, BUCKLE SEWER-C Rosario Attending Provider Frederic GLOVER, Rip Solorzano Primary Care Provider [phone] Shine GLOVER, Regi Unavailable HAILE GONZALEZ Admitting Unavailabl e HAILE GONZALEZ Attending Unavailabl e BRODERICK, RIP Referring Unavailable DE LA GARZA, RIP A Primary Care Unavailable Frederic GLOVER, Rip A Unavailable Rito PT, Pratima Unavailable Frederic GLOVER, Dr. Kilgore Primary Care Provider Jose Manuel GLOVER, Abdulaziz Attending Provider Jose Manuel GLOVER, Abdulaziz Referring Provider Frederic GLOVER, Dr. Kilgore Attending Provider Frederic GLOVER, Dr. Kilgore Referring Provider Frederic GLOVER, Dr. Kilgore Primary Care Provider [facility] DO, Dr. Nice Emergency Provider Brayden GLOVER, Dr. Cruz Admit Provider Unavailable Brayden GLOVER, Dr. Cruz Attending Provider Unavailjeanine Martin MD, Dr. Mathew Other Provider Baryden GLOVER, Dr. Cruz Other Provider Unavailable Veronica [...] La Garza, Rip Primary Care Unavailable Tj BUCKLE SEWER, Radha Attending Unavailable Juan Mnauel Martinez Referring Unavailable Juan Manuel Martinez Attending [...] La Garza, Rip A Primary Care Provider [phone] VINITA THAKUR Attending Unavailable RADHA RODRIGUEZ Referring [...] every six hours as needed HYDROcodone-aceta minophen ([place]) 5-325 MG tablet Take 1 tablet by [...] 08, 2020 11:16am [facility] ascorbic acid (Vitamin [...] tablets by mouth daily CALCIUM CARBONATE-VITAMIN D [id number] Jack Duran MD Start: 09-15-2015 End: 05-01-2016 take 2 tablets by mouth once daily CALTRATE 600+D 600-400 MG-UNIT TABS Two tablets by mouth daily CALCIUM CARBONATE-VITAMIN D [id number] Adrianna Box PA-C Start: 09-15-2015 take 2 tablets by mo [facility] once daily CALTRATE 600+D 600-400 MG-UNIT TABS [...] Ergocalciferol (Vitamin D2) 50,000 UNIT capsule Discontinued 90854 U PO EVERY WEEK December 01, 2018 1:00am April 03, 2019 2:06pm supplement Start: 09-15-2015 End: 05-01-2016 take 1 tablet by mouth once daily VITAMIN D (ERGOCALCIFEROL) 57898 UNIT CAPS One tablet by mouth daily ERGOCALCIFEROL [id number] Jack Duran MD Start: 09-15-2015 End: 05-01-2016 take 1 tablet by mouth once daily VITAMIN D (ERGOCALCIFEROL) 00413 UNIT CAPS One tablet by mouth daily ERGOCALCIFEROL [id number] Jack Duran MD Fluad Quad (65yr up)(PF) [...] TWICE A DAY December 18, 2023 1:00am Owoehutug-Kfamxps-Nnzgn Acid (MAGNEBIND 400) 400-200-1 mg tab (1 source) Magnesium-Calciu m-Folic Acid (MAGNEBIND 400) 400-200-1 mg tab Take by mouth. 0 Active Comment on above: Take by mouth. Hskfitwii-Cydexeo-Bnblx Acid (MAGNEBIND 400,WITH FOLIC ACID,) 400-200-1 mg tab (2 sources) End: 05-01-20 Klcvcsyji-Cendree-Wbrok Acid (MAGNEBIND 400,WITH FOLIC ACID,) 400-200-1 mg [...] Start: 04-03-2019 take 1 capsule by mo [facility] once daily pomegranate fruit extract 250 mg [...] Comment on above: Take [address] [facility] once daily. Prenat.Vits,Chilango,Min- Iron-Folic (18 sources) Start: 12-31-2018 End: 12-14-2020 take 1 tablet by mouth once daily Prenat.Vits,Chilango,Min-Ir on-Folic Discontinued 1 TABLET PO DAILY December 31, 2018 8:49am December 14, 2020 11:32am Start: 12-31-2018 End: 12-14-2020 take 1 tablet by mouth once daily Prenat.Vits,Chilango,Qcv-Bocf-Lualr Discontin ued 1 TABLET PO DAILY December 31, 2018 12:00am December 14, 2020 10:32am Start: 12-31-2018 End: 12-14-2020 take 1 tablet by mouth once daily Prenat.Vits,Chilango,Vny-Cyol-Mghuh Discontin ued 1 TABLET PO DAILY December 31, 2018 1:00am December 14, 2020 11:32am Prenat.Vits,Chilango,Mgz-Gijq-Yeb ic tablet (2 sources) Start: 12-31-2018 End: 12-14-2020 Prenat.Vits,Chilango,Krd-Feuk-Inr ic tablet Discontinued 1 {tbl} PO DAILY [...] sources) Long-term current use of anticoagulant; Translations: [prison (current) use of 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] 12-08-2018 Episodic Other aftercare (20 sources) Drug therapy finding; Translations: [Other oysterman (current) drug therapy] 10-09-2021 Episodic Other aftercare (20 sources) Long-term current use of drug therapy; Translations: [Other oysterman (current) drug therapy] 04-02-2019 Episodic Other aftercare (1 source) emt intermediate (current) use of 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; Translations: [prison (current) use of 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] Onset: 5 Episodic [...] (3 sources) Long-term drug therapy; Translations: [Other correction (current) drug therapy] Onset: 6 04-19-2016 Unclassified [...] 09-07-2015 Episodic Other aftercare (6 sources) Other oysterman (current) drug therapy; Translations: [Other oysterman (current) drug therapy] Onset: 04-19-2016 04-19-2016 Episodic [...] bring it to Dr Rodriguez appointment. 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 However, she presented to the [place] ED in early March for weakness. She [...] for parkinsonism recently was moved to a longterm facility. She does not exercise regularly, but can do all of her ADLs. The ECG from the [place] ED in March showed a slow atrial [...] her BPs and heart rate for Dr. oRdriguez. 3. Paraspinal hematoma: This occurred in the [...] systems wer (more content not included)... [facility] Summary (1)on 025 PT D/C Summary (1) [facility] Physical [facility] [address] [place] [address] / REHABILITATION SERVICES DISCHARGE SUMMARY MR#: [id number] Acct: [id number] Name: RBUEN LOBO Rep #: [id number] : 1945 80 From: Berny Freitas PT, [...] please feel free to call me at [phone]. Thank you for the referral of this patient. Sincerely, Berny Freitas PT, Cert T, OCS Balance/Gait/Functio nal tests Balance/Special Test Scores Oswestry Neck Score: 10 Improvement % Improvement: 50 05/20/25 1302 CC: Dr. Juan Manuel Martinez MD; Dr. Rip De La Garza MD JLA Signed [facility] 3604-28-2025 36 Records received and given to [facility] 36on 04-27-2025 36 Records requested via fax [facility] 36 ----- Message from Ophelia Campos sent at 04/27/2025 1:31 PM EDT ----- She was admitted to [facility] 03-12-25 need Echo EKG and Card consult [facility] Inital Evaluation (1) - PTon 04-12-2025 Inital Evaluation (1) - PT [facility] [address] [place] [address] [address] [place] [address] / REHABILITATION SERVICES INITIAL EVALUATION MR#: [id number] Acct: [id number] Name: RUBEN LOBO Rep #: [id number] : 1945 80 From: Samantha Mckeon PT. [...] hematoma. Patient had T1 -T6 laminectomy and [facility] Aug 08. Patient d/c to [...] ice mas (more content not included)... Normal [facility] Cerv Spine 4 or 5 Viewson Cerv Spine 4 or 5 Views [facility] Imaging Services [address] [place] [address] Cerv Spine 4 or 5 Views MR#: [id number] Acct: [id number] Name: RUBEN LOBO Rep #: [id number] : 1945 F 80 From: Jv Boyer MD PCP: Dr. Rip De La Garza MD Status: DEP AMB Study: Cerv Spine 4 or 5 Views Date of Exam: 03/22/25 Exam# [id number] Ordering Dr: Nicole Gonzalez PROCEDURE: CERV SPINE [...] is no instability demonstrated. Reading Location: [facility] CC: CONCETTA Patrick; Dr. Rip De La Garza MD [employer] Detail: Signed Normal [facility] Orthopedic Visit Reporton Orthopedic Visit Report [facility] [address] [place] [address] [address] [place] [address] OFFICE VISIT Date of Service: 03/22/25 MR#: [id number] Acct: [id number] Name: RUBEN LOBO Rep #: [id number] : 1945 Provider: Dr. Juan Manuel Martinez MD Age/Sex: 80/F Location: [email or web address] Status: Signed Intake Vital Signs 09/15/24 13:01 [...] cardioversion CLARISSE (obstructive sleep apnea) Mixed hyperlipidemia emt intermediate current use of 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 drug Pulmonary hypertension Chronic cholecystitis with calculus Paroxysmal atrial fibrillation Essential (primary) hypertension Esophageal hiatal hernia 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, left prison current use of anticoagulant Atrial flutter GERD [...] neck. The surgery was on 07/09/2024 at [facility] in [place]. The pain hurts worse when she walks.Patient [facility]. They mainly massaged her neck and back which had helped a little bit.Patient denies any diabetes, but is on a blood thinner.Patient denies any smoking or drugs.Patient states she doesn't have much feeling in (more content not included)... Normal [facility] Thoracic Spine 2 Viewson Thoracic Spine [address] [facility] Imaging Services [address] [place] [address] Thoracic Spine 2 Views MR#: [id number] Acct: [id number] Name: RUBEN LOBO Rep #: [id number] : 1945 F 80 From: Isaac Hayward MD PCP: Dr. Rip De La Garza MD Status: DEP AMB Study: Thoracic Spine 2 Views Date of Exam: 03/22/25 Exam# [id number] Ordering Dr: Nicole Gonzalez PROCEDURE: THORACIC SPINE 2 VIEWS 2025 REASON FOR EXAM: PAIN TECHNIQUE: 2 view(s) of the thoracic spine. COMPARISON: Thoracic spine CT on 07/19/2024, thoracic spine MRI 01/26/2025 FINDINGS: Thoracic vertebral body heights and alignment are maintained. There is mild diffuse osteopenia. Vertebral body hemangiomas are better demonstrated on prior cross-sectional exams. Geed-aa-cslubsve multilevel degenerative changes. Aortic atherosclerosis. Visualized lungs are clear. RAD/Thoracic Spine 2 Views IMPRESSION: 1. Amsk-bh-mpvzxxkt degenerative changes of the thoracic spine. 2. Diffuse osteopenia. Reading Location: [id number] CC: CONCETTA Patrick; Dr. Rip De La Garza MD [employer] Detail: Signed Normal [facility] Basic Metabolic Profile (BMP )on 03-15-2025 BUN Normal 4-19 [facility] Comment on above: Result Comment: Canc elled via OM: Order cancelled - Patient discharged Performed By: #### L 503.6005 #### [facility] Laboratory [address] [place], [address] BUN/CRE Normal 10-20 [facility] Comment on above: Result Comment: Canc elled via OM: Order cancelled - Patient discharged Performed By: #### L 503.6005 #### [facility] [address] [place], [address] Calcium Normal 7.6-11.0 [facility] Comment on above: Result Comment: Canc elled via OM: Order cancelled - Patient discharged Performed By: #### L 503.6005 #### [facility] [address] [place], [address] CL Normal 98-108 [facility] Comment on above: Result Comment: Canc elled via OM: Order cancelled - Patient discharged Performed By: #### L 503.6005 #### [facility] [address] [place], [address] CO2 Normal 21.0-32.0 [facility] Comment on above: Result Comment: Canc elled via OM: Order cancelled - Patient discharged Performed By: #### L 503.6005 #### [facility] [address] [place], [address] CREAT,SERUM Normal 0.70-1.20 [facility] Comment on above: Result Comment: Canc elled via OM: Order cancelled - Patient discharged Performed By: #### L 503.6005 #### [facility] [address] [place], [address] eGFR Normal >60 [facility] Comment on above: Result Comment: Canc elled via OM: Order cancelled - Patient discharged Performed By: #### L 503.6005 #### [facility] [address] [place], [address] GAP Normal 5-15 [facility] Comment on above: Result Comment: Canc elled via OM: Order cancelled - Patient discharged Performed By: #### L 503.6005 #### [facility] [address] [place], [address] GLU Normal 70-99 [facility] Comment on above: Result Comment: Canc elled via OM: Order cancelled - Patient discharged Performed By: #### L 503.6005 #### [facility] [address] [place], [address] Potassium Normal 3.3-5.1 [facility] Comment on above: Result Comment: Canc elled via OM: Order cancelled - Patient discharged Performed By: #### L 503.6005 #### [facility] [address] [place], [address] Basic Metabolic Profile (BMP) Normal 133-145 [facility] Comment on above: Result Comment: Canc elled via OM: Order cancelled - Patient discharged Performed By: #### L 503.6005 #### [facility] [address] [place], [address] CBC W/Diff, Automatedon 05-0 -2024 Absolute Neut Normal 2.0-7.7 [facility] Comment on above: Result Comment: Canc elled via OM: Order cancelled - Patient discharged Performed By: #### L 503.6005 #### [facility] [address] [place], [address] HCT Normal 37-47 [facility] Comment on above: Result Comment: Canc elled via OM: Order cancelled - Patient discharged Performed By: #### L 503.6005 #### [facility] [address] [place], [address] HGB Normal 12.0-15.0 [facility] Comment on above: Result Comment: Canc elled via OM: Order cancelled - Patient discharged Performed By: #### L 503.6005 #### [facility] [address] [place], [address] MCH Normal 27.0-32.0 [facility] Comment on above: Result Comment: Canc elled via OM: Order cancelled - Patient discharged Performed By: #### L 503.6005 #### [facility] [address] [place], [address] MCHC Normal 32-36 [facility] Comment on above: Result Comment: Canc elled via OM: Order cancelled - Patient discharged Performed By: #### L 503.6005 #### [facility] [address] [place], [address] MCV Normal 81-99 [facility] Comment on above: Result Comment: Canc elled via OM: Order cancelled - Patient discharged Performed By: #### L 503.6005 #### [facility] [address] [place], [address] NEUT% Normal 47-70 [facility] Comment on above: Result Comment: Canc elled via OM: Order cancelled - Patient discharged Performed By: #### L 503.6005 #### [facility] [address] [place], [address] PLT Normal 150-450 [facility] Comment on above: Result Comment: Canc elled via OM: Order cancelled - Patient discharged Performed By: #### L 503.6005 #### [facility] [address] [place], [address] RBC Normal 4.2-5.4 [facility] Comment on above: Result Comment: Canc elled via OM: Order cancelled - Patient discharged Performed By: #### L 503.6005 #### [facility] [address] [place], [address] RDW CV Normal 11.6-14.6 [facility] Comment on above: Result Comment: Canc elled via OM: Order cancelled - Patient discharged Performed By: #### L 503.6005 #### [facility] [address] [place], [address] RDW SD Normal 35.1-43.9 [facility] Comment on above: Result Comment: Canc elled via OM: Order cancelled - Patient discharged Performed By: #### L 503.6005 #### [facility] [address] [place], [address] WBC Normal 4.4-11.0 [facility] Comment on above: Result Comment: Canc elled via OM: Order cancelled - Patient discharged Performed By: #### L 503.6005 #### [facility] [address] [place], [address] Basic Metabolic Profile (BMP )on 03-14-2025 BUN Normal 4-19 [facility] Comment on above: Result Comment: Canc elled via OM: Order cancelled - Patient discharged Performed By: #### L 500.2500, L100.0100, L501.4020 #### [facility] [address] [place], [address] BUN/CRE Normal 10-20 [facility] Comment on above: Result Comment: Canc elled via OM: Order cancelled - Patient discharged Performed By: #### L 500.2500, L100.0100, L501.4020 #### [facility] [address] [place], [address] Calcium Normal 7.6-11.0 [facility] Comment on above: Result Comment: Canc elled via OM: Order cancelled - Patient discharged Performed By: #### L 500.2500, L100.0100, L501.4020 #### [facility] [address] [place], [address] CL Normal 98-108 [facility] Comment on above: Result Comment: Canc elled via OM: Order cancelled - Patient discharged Performed By: #### L 500.2500, L100.0100, L501.4020 #### [facility] [address] [place], [address] CO2 Normal 21.0-32.0 [facility] Comment on above: Result Comment: Canc elled via OM: Order cancelled - Patient discharged Performed By: #### L 500.2500, L100.0100, L501.4020 #### [facility] [address] [place], [address] CREAT,SERUM Normal 0.70-1.20 [facility] Comment on above: Result Comment: Canc elled via OM: Order cancelled - Patient discharged Performed By: #### L 500.2500, L100.0100, L501.4020 #### [facility] [address] [place], [address] eGFR Normal >60 [facility] Comment on above: Result Comment: Canc elled via OM: Order cancelled - Patient discharged Performed By: #### L 500.2500, L100.0100, L501.4020 #### [facility] [address] [place], [address] GAP Normal 5-15 [facility] Comment on above: Result Comment: Canc elled via OM: Order cancelled - Patient discharged Performed By: #### L 500.2500, L100.0100, L501.4020 #### [facility] [address] [place], [address] GLU Normal 70-99 [facility] Comment on above: Result Comment: Canc elled via OM: Order cancelled - Patient discharged Performed By: #### L 500.2500, L100.0100, L501.4020 #### [facility] [address] [place], [address] Potassium Normal 3.3-5.1 [facility] Comment on above: Result Comment: Canc elled via OM: Order cancelled - Patient discharged Performed By: #### L 500.2500, L100.0100, L501.4020 #### [facility] [address] [place], [address] Basic Metabolic Profile (BMP) Normal 133-145 [facility] Comment on above: Result Comment: Canc elled via OM: Order cancelled - Patient discharged Performed By: #### L 500.2500, L100.0100, L501.4020 #### [facility] [address] [place], [address] CBC W/Diff, Automatedon 05-0 -2024 Absolute Neut Normal 2.0-7.7 [facility] Comment on above: Result Comment: Canc elled via OM: Order cancelled - Patient discharged Performed By: #### L 500.2500, L100.0100, L501.4020 #### [facility] [address] [place], [address] HCT Normal 37-47 [facility] Comment on above: Result Comment: Canc elled via OM: Order cancelled - Patient discharged Performed By: #### L 500.2500, L100.0100, L501.4020 #### [facility] [address] [place], [address] HGB Normal 12.0-15.0 [facility] Comment on above: Result Comment: Canc elled via OM: Order cancelled - Patient discharged Performed By: #### L 500.2500, L100.0100, L501.4020 #### [facility] [address] [place], [address] MCH Normal 27.0-32.0 [facility] Comment on above: Result Comment: Canc elled via OM: Order cancelled - Patient discharged Performed By: #### L 500.2500, L100.0100, L501.4020 #### [facility] [address] [place], [address] MCHC Normal 32-36 [facility] Comment on above: Result Comment: Canc elled via OM: Order cancelled - Patient discharged Performed By: #### L 500.2500, L100.0100, L501.4020 #### [facility] [address] [place], [address] MCV Normal 81-99 [facility] Comment on above: Result Comment: Canc elled via OM: Order cancelled - Patient discharged Performed By: #### L 500.2500, L100.0100, L501.4020 #### [facility] [address] [place], [address] NEUT% Normal 47-70 [facility] Comment on above: Result Comment: Canc elled via OM: Order cancelled - Patient discharged Performed By: #### L 500.2500, L100.0100, L501.4020 #### [facility] [address] [place], [address] PLT Normal 150-450 [facility] Comment on above: Result Comment: Canc elled via OM: Order cancelled - Patient discharged Performed By: #### L 500.2500, L100.0100, L501.4020 #### [facility] [address] [place], [address] RBC Normal 4.2-5.4 [facility] Comment on above: Result Comment: Canc elled via OM: Order cancelled - Patient discharged Performed By: #### L 500.2500, L100.0100, L501.4020 #### [facility] [address] [place], [address] RDW CV Normal 11.6-14.6 [facility] Comment on above: Result Comment: Canc elled via OM: Order cancelled - Patient discharged Performed By: #### L 500.2500, L100.0100, L501.4020 #### [facility] [address] [place], [address] RDW SD Normal 35.1-43.9 [facility] Comment on above: Result Comment: Canc elled via OM: Order cancelled - Patient discharged Performed By: #### L 500.2500, L100.0100, L501.4020 #### [facility] [address] [place], [address] WBC Normal 4.4-11.0 [facility] Comment on above: Result Comment: Canc elled via OM: Order cancelled - Patient discharged Performed By: #### L 500.2500, L100.0100, L501.4020 #### [facility] [address] [place], [address] 12 Lead EKGon 03-13-2025 12 Lead E[address] [facility] Cardiovascular Services [address] [place] [address] 12 Lead EKG 03/13/25 0602 MR#: [id number] Acct: [id number] Name: RUBEN LOBO Rep #: [id number] : 1945 79 From: Cory Montes MD Attending Dr: Dr. Anthony Owen MD Status: DIS MELI Ordering Dr: Quincy Martin MD Date: 03/13/25 Location: [facility] Sex: F C Admitted: 03/12/25 Test Reason [...] UNCONFIRMED Confirmed by JYOTI GLOVER, CORY ([id number]), book or script editor KRISTINE DURAN ([id number]) on 03/19/2025 12:42:53 PM Referred By: BRAYDEN Confirmed By: CORY MONTES MD 03/19/25 1242 Date Cory Montes MD CC: Dr. Anthony Owen MD; Dr. Rip De La Garza MD; Dr. Quincy Martin MD Signed Normal [facility] Absolute lymphocyte countOrd ered By: Anthony Owen on 03-13-2025 Lymphocytes Auto (Unsp spec) [#/Vol] 1.65 10*3/uL 0.83-4.51 [facility] Absolute neutrophil countOrd ered By: Anthony Owen on 03-13-2025 Neutrophils (Bld) [#/Vol] 2.7 10*3/uL 2.0-7.7 [facility] Anion gap in Serum or Plasma Ordered By: Anthony Owen on 03-13-2025 Anion gap [Moles/Vol] 10 mmol/L 5-15 [facility] Automated lymphocyte count a s percentage of total leukocytesOrdered By: Anthony Owen on 03-13-2025 Lymphocytes/100 WBC Auto (Unsp spec) 33.6 % 19-41 [facility] BUN/creatinine ratioOrdered By: Anthony Owen on 03-13-2025 Urea nitrogen/Creatinine [Mass ratio] 22.3 mg/mg High 10- [facility] Basic Metabolic Profile (BMP )on 03-13-2025 BUN/CRE 22.3 RATIO High 10- [facility] Comment on above: Performed By: #### L 503.6005 #### [facility] [address] [place], [address] Calcium [Mass/Vol] 9.0 mg/dL Normal 7.6-11.0 [facility] Comment on above: Performed By: #### L 503.6005 #### [facility] [address] [place], [address] Chloride [Moles/Vol] 105 mmol/L Normal 98-108 [facility] Comment on above: Performed By: #### L 503.6005 #### [facility] [address] [place], [address] CO2 [Moles/Vol] 23.1 mmol/L Normal 21.0-32.0 [facility] Comment on above: Performed By: #### L 503.6005 #### [facility] [address] [place], [address] Creatinine [Mass/Vol] 0.69 mg/dL Low 0.70-1.20 [facility] Comment on above: Performed By: #### L 503.6005 #### [facility] [address] [place], [address] ECRCL 44.34 ml/min Low 50-250 [facility] Comment on above: Performed By: #### L 503.6005 #### [facility] [address] [place], [address] GAP 10 Normal 5-15 [facility] Comment on above: Performed By: #### L 503.6005 #### [facility] [address] [place], [address] GFR/1.73 sq M.predicted among non-blacks MDRD (S/P/Bld) [Vol rate/Area] 88 mL/min/{1.73_m2} Normal >60 [facility] Comment on above: Result Comment: mL/m in/1.73m2 CKD-EPI Creatinine Equation (2020) Performed By: #### L 503.6005 #### [facility] [address] [place], [address] Glucose [Mass/Vol] 118 mg/dL High 70-99 [facility] Comment on above: Performed By: #### L 503.6005 #### [facility] [address] [place], [address] Potassium [Moles/Vol] 4.4 mmol/L Normal 3.3-5.1 [facility] Comment on above: Performed By: #### L 503.6005 #### [facility] [address] [place], [address] Sodium [Moles/Vol] 138 mmol/L Normal 133-145 [facility] Comment on above: Performed By: #### L 503.6005 #### [facility] [address] [place], [address] Urea nitrogen [Mass/Vol] 15 mg/dL Normal 4-19 [facility] Comment on above: Performed By: #### L 503.6005 #### [facility] [address] [place], [address] Basophil percentageOrdered B y: Anthony Owen on 03-13-2025 Basophils/100 WBC (Bld) 0.4 % 0-1 [facility] CBC W/Diff, Automatedon Absolute Lymph 1.65 X10 3/uL Normal 0.83-4.51 [facility] Comment on above: Performed By: #### L 503.6005 #### [facility] [address] [place], [address] Absolute Neut 2.7 X10 3/uL Normal 2.0-7.7 [facility] Comment on above: Performed By: #### L 503.6005 #### [facility] [address] [place], [address] Basophils/100 WBC (Bld) 0.4 % Normal 0-1 [facility] Comment on above: Performed By: #### L 503.6005 #### [facility] [address] [place], [address] Eosinophils/100 WBC (Bld) 1.6 % Normal 0-5 [facility] Comment on above: Performed By: #### L 503.6005 #### [facility] [address] [place], [address] Erythrocyte distribution width (RBC) [Ratio] 15.5 % High 11.6-14.6 [facility] Comment on above: Performed By: #### L 503.6005 #### [facility] [address] [place], [address] Hematocrit (Bld) [Volume fraction] 36.7 % Low 37-47 [facility] Comment on above: Performed By: #### L 503.6005 #### [facility] [address] [place], [address] Hemoglobin (Bld) [Mass/Vol] 11.5 g/dL Low 12.0-15.0 [facility] Comment on above: Performed By: #### L 503.6005 #### [facility] [address] [place], [address] IG% 0.400 Normal 0.0-0.9 [facility] Comment on above: Result Comment: IG% - Immature Granulocytes (promyelocytes, myelocytes and metamyelocytes) > 1% indicates that a LEFT SHIFT is Present. Performed By: #### L 503.6005 #### [facility] [address] [place], [address] Lymphocytes/100 WBC (Bld) 33.6 % Normal 19-41 [facility] Comment on above: Performed By: #### L 503.6005 #### [facility] [address] [place], [address] MCH (RBC) [Entitic mass] 27.3 pg Normal 27.0-32.0 [facility] Comment on above: Performed By: #### L 503.6005 #### [facility] [address] [place], [address] MCHC (RBC) [Mass/Vol] 31.3 g/dL Low 32-36 [facility] Comment on above: Performed By: #### L 503.6005 #### [facility] [address] [place], [address] MCV (RBC) [Entitic vol] 87.2 fL Normal 81-99 [facility] Comment on above: Performed By: #### L 503.6005 #### [facility] [address] [place], [address] Monocytes/100 WBC (Bld) 10.0 % Normal 0-10 [facility] Comment on above: Performed By: #### L 503.6005 #### [facility] [address] [place], [address] Neutrophils/100 WBC (Bld) 54.0 % Normal 47-70 [facility] Comment on above: Performed By: #### L 503.6005 #### [facility] [address] [place], [address] Nucleated RBC (Bld) [#/Vol] 0 10*3/uL Normal 0-5 [facility] Comment on above: Performed By: #### L 503.6005 #### [facility] [address] [place], [address] Platelet mean volume (Bld) [Entitic vol] 11.6 fL Normal 6.2-12.0 [facility] Comment on above: Performed By: #### L 503.6005 #### [facility] [address] [place], [address] Platelets (Bld) [#/Vol] 109 10*3/uL Low 150-450 [facility] Comment on above: Performed By: #### L 503.6005 #### [facility] [address] [place], [address] RBC (Bld) [#/Vol] 4.21 10*6/uL Normal 4.2-5.4 [facility] Comment on above: Performed By: #### L 503.6005 #### [facility] [address] [place], [address] RDW SD 49.2 fl High 35.1-43.9 [facility] Comment on above: Performed By: #### L 503.6005 #### [facility] [address] [place], [address] WBC (Bld) [#/Vol] 4.9 10*3/uL Normal 4.4-11.0 [facility] Comment on above: Performed By: #### L 503.6005 #### [facility] [address] [place], [address] Carbon dioxide, total [Moles /volume] in Central venous bloodOrdered By: Anthony Owen on 03-13-2025 CO2 [Moles/Vol] 23.1 mmol/L 21.0-32.0 [facility] Chloride assayOrdered By: Leonardo Owen on 03-13-2025 Chloride [Moles/Vol] 105 mmol/L 98-108 [facility] Eosinophil percentageOrdered By: Anthony Owen on 03-13-2025 Eosinophils/100 WBC (Bld) 1.6 % 0-5 [facility] Erythrocyte distribution wid th ratioOrdered By: Anthony Owen on 03-13-2025 Erythrocyte distribution width (RBC) [Ratio] 15.5 % High 11.6-14.6 [facility] Erythrocyte distribution wid th standard deviationOrdered By: Anthony Owen on 03-13-2025 Erythrocyte distribution width (RBC) [Ratio] 49.2 fl High 35.1-43.9 [facility] Glomerular filtration rate ( GFR) estimation/1.73 sq m using serum, plasma, or whole bOrdered By: Anthony Owen on 03-13-2025 GFR/1.73 sq M.predicted among non-blacks MDRD (S/P/Bld) [Vol rate/Area] 88 mL/min/{1.73_m2} >60 [facility] Comment on above: mL/min/1.73m2 CKD-EP I Creatinine Equation (2020) Hematocrit Auto (Bld) [Volum e fraction]Ordered By: Anthony Owen on 03-13-2025 Hematocrit (Bld) [Volume fraction] 36.7 % Low 37-47 [facility] Hemoglobin measurementOrdere d By: Anthony Owen on 03-13-2025 Hemoglobin (Bld) [Mass/Vol] 11.5 g/dL Low 12.0-15.0 [facility] Immature granulocytes/100 WB C Auto (Bld)Ordered By: Anthony Owen on 03-13-2025 Immature granulocytes/100 WBC (Bld) 0.400 % 0.0-0.9 [facility] Comment on above: IG% - Immature Granu locytes (promyelocytes, myelocytes and metamyelocytes) > 1% indicates that a LEFT SHIFT is Present. MCV (mean corpuscular volume ) determinationOrdered By: Anthony Owen on 03-13-2025 MCV (RBC) [Entitic vol] 87.2 fL 81-99 [facility] Magnesiumon 03-13-2025 Magnesium [Mass/Vol] 1.9 mg/dL Normal 1.5-2.2 [facility] Comment on above: Performed By: #### L 500.2500, L100.0100, L501.4020 #### [facility] [address] [place], [place], [address] Magnesium measurement (mass/ volume)Ordered By: Anthony Owen on 03-13-2025 Magnesium (Unsp spec) [Mass/Vol] 1.9 mg/dL 1.5-2.2 [facility] Mean corpuscular hemoglobin (MCH) determinationOrdered By: Anthony Owen on 03-13-2025 MCH (RBC) [Entitic mass] 27.3 pg 27.0-32.0 [facility] Mean corpuscular hemoglobin concentration (MCHC) determinationOrdered By: Anthony Owen on 03-13-2025 MCHC (RBC) [Mass/Vol] 31.3 g/dL Low 32-36 [facility] Mean platelet volume determi nationOrdered By: Anthony Owen on 03-13-2025 Platelet mean volume (Bld) [Entitic vol] 11.6 fL 6.2-12.0 [facility] Monocyte percentageOrdered B y: Anthony Owen on 03-13-2025 Monocytes/100 WBC (Bld) 10.0 % 0-10 [facility] Neutrophil percentageOrdered By: Anthony Owen on 03-13-2025 Neutrophils/100 WBC (Bld) 54.0 % 47-70 [facility] Nucleated red blood cell per centageOrdered By: Anthony Owen on 03-13-2025 Nucleated RBC/100 WBC (Bld) [Ratio] 0 % 0-5 [facility] Phosphoruson 03-13-2025 Phosphate [Mass/Vol] 4.2 mg/dL Normal 2.7-4.5 [facility] Comment on above: Performed By: #### L 503.6005 #### [facility] [address] [place], [address] Platelet countOrdered By: Leonardo Owen on 03-13-2025 Platelets (Bld) [#/Vol] 109 10*3/uL Low 150-450 [facility] Potassium measurement (mass/ volume)Ordered By: Anthony Owen on 03-13-2025 Potassium (Unsp spec) [Mass/Vol] 4.4 mmol/L 3.3-5.1 [facility] RBC Auto (Bld) [#/Vol]Ordere d By: Anthony Owen on 03-13-2025 RBC (Bld) [#/Vol] 4.21 10*6/uL 4.2-5.4 [facility] Serum creatinine measurement (mass/volume)Ordered By: Anthony Owen on 03-13-2025 Creatinine [Mass/Vol] 0.69 mg/dL Low 0.70-1.20 [facility] Serum glucose measurement (m ass/volume)Ordered By: Anthony Owen on 03-13-2025 Glucose [Mass/Vol] 118 mg/dL High 70-99 [facility] Serum or plasma calcium unruly urement (mass/volume)Ordered By: Anthony Owen on 03-13-2025 Calcium [Mass/Vol] 9.0 mg/dL 7.6-11.0 [facility] Serum or plasma urea nitroge n measurement (mass/volume)Ordered By: Anthony Owen on 03-13-2025 Urea nitrogen [Mass/Vol] 15 mg/dL 4-19 [facility] Sodium levelOrdered By: Cheko Owen on 03-13-2025 Sodium [Moles/Vol] 138 mmol/L 133-145 [facility] White blood cell (WBC) count Ordered By: Anthony Owen on 03-13-2025 WBC (Bld) [#/Vol] 4.9 10*3/uL 4.4-11.0 [facility] 12 Lead EKGon 03-12-2025 12 Lead E[address] [facility] Cardiovascular Services [address] [place] [address] 12 Lead EKG 03/12/25 0823 MR#: [id number] Acct: [id number] Name: RUBEN LOBO Rep #: [id number] : 1945 79 From: Cory Monets MD Attending Dr: Dr. Anthony Owen MD [...] Abnormal ECG Confirmed by CORY MONTES MD ([id number]), book or script editor KRISTINE DURAN ([id number]) on 03/15/2025 9:54:57 AM Referred By: Confirmed By: CORY MONTES MD 03/15/2554 Date Cory Montes MD CC: Dr. Anthony Owen MD; Dr. Rip De La Garza MD; Dr. Tex Chavarria DO Signed Normal [facility] 12 Lead EKG [facility] Cardiovascular Services [address] [place] [address] 12 Lead EKG 03/12/25 0756 MR#: [id number] Acct: [id number] Name: RUBEN LOBO Rep #: [id number] : 1945 79 From: Cory Montes MD Attending Dr: Dr. Anthony Owen MD Status: DIS MELI Ordering Dr: Tex Chavarria DO Date: 03/12/25 Location: [facility] Sex: F C Admitted: 03/12/25 Test Reason [...] Abnormal ECG Confirmed by CORY MONTES MD ([id number]), KRISTINE Duarte ([id number]) on 03/15/2025 9:17:20 AM Referred By: Confirmed By: CORY MONTES MD 03/15/25 0917 Date Cory Montes MD CC: Dr. Anthony Owen MD; Dr. Rip De La Garza MD; Dr. Tex Chavarria DO Signed Normal [facility] Activated partial thrombopla stin time (aPTT) in platelet poor plasma by coagulation aOrdered By: Tex Chavarria on 03-12-2025 aPTT Coag (PPP) [Time] 31.9 s 24.1-36.2 [facility] Bilirubin, totalOrdered By: Tex Chavarria on 03-12-2025 Bilirubin [Mass/Vol] 0.45 mg/dL 0.00-1.30 [facility] CBC W/Diff, Automatedon Absolute Lymph 1.07 X10 3/uL Normal 0.83-4.51 [facility] Comment on above: Performed By: #### L 500.2500, L100.0100, L501.4020 #### [facility] [address] [place], [address] Absolute Neut 3.1 X10 3/uL Normal 2.0-7.7 [facility] Comment on above: Performed By: #### L 500.2500, L100.0100, L501.4020 #### [facility] [address] [place], [address] Basophils/100 WBC (Bld) 0.6 % Normal 0-1 [facility] Comment on above: Performed By: #### L 500.2500, L100.0100, L501.4020 #### [facility] [address] [place], [address] Eosinophils/100 WBC (Bld) 1.1 % Normal 0-5 [facility] Comment on above: Performed By: #### L 500.2500, L100.0100, L501.4020 #### [facility] [address] [place], [address] Erythrocyte distribution width (RBC) [Ratio] 15.3 % High 11.6-14.6 [facility] Comment on above: Performed By: #### L 500.2500, L100.0100, L501.4020 #### [facility] [address] [place], [address] Hematocrit (Bld) [Volume fraction] 38.4 % Normal 37-47 [facility] Comment on above: Performed By: #### L 500.2500, L100.0100, L501.4020 #### [facility] [address] [place], [address] Hemoglobin (Bld) [Mass/Vol] 12.2 g/dL Normal 12.0-15.0 [facility] Comment on above: Performed By: #### L 500.2500, L100.0100, L501.4020 #### [facility] [address] [place], [address] IG% 0.400 Normal 0.0-0.9 [facility] Comment on above: Result Comment: IG% - Immature Granulocytes (promyelocytes, myelocytes and metamyelocytes) > 1% indicates that a LEFT SHIFT is Present. Performed By: #### L 500.2500, L100.0100, L501.4020 #### [facility] [address] [place], [address] Lymphocytes/100 WBC (Bld) 22.6 % Normal 19-41 [facility] Comment on above: Performed By: #### L 500.2500, L100.0100, L501.4020 #### [facility] [address] [place], [address] MCH (RBC) [Entitic mass] 27.4 pg Normal 27.0-32.0 [facility] Comment on above: Performed By: #### L 500.2500, L100.0100, L501.4020 #### [facility] [address] [place], [address] MCHC (RBC) [Mass/Vol] 31.8 g/dL Low 32-36 [facility] Comment on above: Performed By: #### L 500.2500, L100.0100, L501.4020 #### [facility] [address] [place], [address] MCV (RBC) [Entitic vol] 86.3 fL Normal 81-99 [facility] Comment on above: Performed By: #### L 500.2500, L100.0100, L501.4020 #### [facility] [address] [place], [address] Monocytes/100 WBC (Bld) 9.7 % Normal 0-10 [facility] Comment on above: Performed By: #### L 500.2500, L100.0100, L501.4020 #### [facility] [address] [place], [address] Neutrophils/100 WBC (Bld) 65.6 % Normal 47-70 [facility] Comment on above: Performed By: #### L 500.2500, L100.0100, L501.4020 #### [facility] [address] [place], [address] Nucleated RBC (Bld) [#/Vol] 0 10*3/uL Normal 0-5 [facility] Comment on above: Performed By: #### L 500.2500, L100.0100, L501.4020 #### [facility] [address] [place], [address] Platelet mean volume (Bld) [Entitic vol] 10.9 fL Normal 6.2-12.0 [facility] Comment on above: Performed By: #### L 500.2500, L100.0100, L501.4020 #### [facility] [address] [place], [address] Platelets (Bld) [#/Vol] 130 10*3/uL Low 150-450 [facility] Comment on above: Performed By: #### L 500.2500, L100.0100, L501.4020 #### [facility] [address] [place], [address] RBC (Bld) [#/Vol] 4.45 10*6/uL Normal 4.2-5.4 [facility] Comment on above: Performed By: #### L 500.2500, L100.0100, L501.4020 #### [facility] [address] [place], [address] RDW SD 48.3 fl High 35.1-43.9 [facility] Comment on above: Performed By: #### L 500.2500, L100.0100, L501.4020 #### [facility] [address] [place], [address] WBC (Bld) [#/Vol] 4.7 10*3/uL Normal 4.4-11.0 [facility] Comment on above: Performed By: #### L 500.2500, L100.0100, L501.4020 #### [facility] [address] [place], [address] Comprehensive Metabolic Prof [facility] 03-12-2025 Albumin [Mass/Vol] 4.0 g/dL Normal 3.4-4.8 [facility] Comment on above: Performed By: #### L 500.2500, L100.0100, L501.4020 #### [facility] [address] [place], [address] Albumin/Globulin [Mass ratio] 1.3 {ratio} Normal 0.9-2.4 [facility] Comment on above: Performed By: #### L 500.2500, L100.0100, L501.4020 #### [facility] [address] [place], [address] ALK PHOS 118 U/L High 35-104 [facility] Comment on above: Performed By: #### L 500.2500, L100.0100, L501.4020 #### [facility] [address] [place], [address] ALT [Catalytic activity/Vol] 10 U/L Normal <=34 [facility] Comment on above: Performed By: #### L 500.2500, L100.0100, L501.4020 #### [facility] [address] [place], [address] AST [Catalytic activity/Vol] 24 U/L Normal <=31 [facility] Comment on above: Performed By: #### L 500.2500, L100.0100, L501.4020 #### [facility] [address] [place], [address] Bilirubin [Mass/Vol] 0.45 mg/dL Normal 0.00-1.30 [facility] Comment on above: Performed By: #### L 500.2500, L100.0100, L501.4020 #### [facility] [address] [place], [address] BUN/CRE 24.3 RATIO High 10-20 [facility] Comment on above: Performed By: #### L 500.2500, L100.0100, L501.4020 #### [facility] [address] [place], [address] Calcium [Mass/Vol] 9.4 mg/dL Normal 7.6-11.0 [facility] Comment on above: Performed By: #### L 500.2500, L100.0100, L501.4020 #### [facility] [address] [place], [address] Chloride [Moles/Vol] 101 mmol/L Normal 98-108 [facility] Comment on above: Performed By: #### L 500.2500, L100.0100, L501.4020 #### [facility] [address] [place], [address] CO2 [Moles/Vol] 27.2 mmol/L Normal 21.0-32.0 [facility] Comment on above: Performed By: #### L 500.2500, L100.0100, L501.4020 #### [facility] [address] [place], [address] Creatinine [Mass/Vol] 0.89 mg/dL Normal 0.70-1.20 [facility] Comment on above: Performed By: #### L 500.2500, L100.0100, L501.4020 #### [facility] [address] [place], [address] ECRCL 40.29 ml/min Low 50-250 [facility] Comment on above: Performed By: #### L 500.2500, L100.0100, L501.4020 #### [facility] [address] [place], [address] GAP 10 Normal 5-15 [facility] Comment on above: Performed By: #### L 500.2500, L100.0100, L501.4020 #### [facility] [address] [place], [address] GFR/1.73 sq M.predicted among non-blacks MDRD (S/P/Bld) [Vol rate/Area] 66 mL/min/{1.73_m2} Normal >60 [facility] Comment on above: Result Comment: mL/m in/1.73m2 CKD-EPI Creatinine Equation (2020) Performed By: #### L 500.2500, L100.0100, L501.4020 #### [facility] [address] [place], [address] Globulin (S) [Mass/Vol] 3.1 g/dL Normal 2.2-4.2 [facility] Comment on above: Performed By: #### L 500.2500, L100.0100, L501.4020 #### [facility] [address] [place], [address] Glucose [Mass/Vol] 144 mg/dL High 70-99 [facility] Comment on above: Performed By: #### L 500.2500, L100.0100, L501.4020 #### [facility] [address] [place], [address] Potassium [Moles/Vol] 4.5 mmol/L Normal 3.3-5.1 [facility] Comment on above: Performed By: #### L 500.2500, L100.0100, L501.4020 #### [facility] [address] [place], [address] Sodium [Moles/Vol] 138 mmol/L Normal 133-145 [facility] Comment on above: Performed By: #### L 500.2500, L100.0100, L501.4020 #### [facility] [address] [place], [address] T PROT 7.1 g/dL Normal 5.9-8.4 [facility] Comment on above: Performed By: #### L 500.2500, L100.0100, L501.4020 #### [facility] [address] [place], [address] Urea nitrogen [Mass/Vol] 22 mg/dL High 4-19 [facility] Comment on above: Performed By: #### L 500.2500, L100.0100, L501.4020 #### [facility] [address] [place], [address] Consultation - Cardiologyon 03-12-2025 Consultation - Cardiology [facility] Medical Records Department [address] [place] [address] Consultation - Cardiology 03/12/25 1317 MR#: [id number] Acct: [id number] Name: RUBEN LOBO Rep #: [id number] : 1945 79 From: Quincy Martin MD PCP: Dr. Rip De La Garza MD Status:ADM MELI Location: [place] [address] Assessment Plan Assessment/Plan (1) Paroxysmal atrial fibrillation: (2) Atrial flutter, paroxysmal: (3) Nausea: (4) MUÑOZ (dyspnea on exertion): (5) Fatigue: PLAN: 79-year-old patient I was consulted for evaluation of this patient as she has abnormal EKG Presentation with symptoms of nausea fatigue generalized weakness. 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 Normal [facility] Echo Completeon 03-12-2025 Echo Complete [facility] [address] [place] [address] Echo Complete 03/12/25 1420 MR#: [id number] Acct: [id number] Name: RUBEN LOBO Rep #: [id number] : 1945 79 From: Quincy Martin MD Attending Dr: Dr. Anthony Owen MD Status: ADM MELI Ordering Dr: Anthony Owen MD Date: 03/12/25 Location: [facility] Sex: F C Admitted: 03/12/25 Reason For [...] echocardiogram Ordering Physician: Anthony Owen Referring Physician: Rip De La Garza MD Performed By: Chanell Ruff RCS 03/13/25 1449 Date Quincy Martin MD CC: Dr. Anthony Owen MD; Dr. Rip De La Garza MD Date Dictated: 03/12/25 1420 Date Transcribed: 03/13/25 1449 [employer] Detail: Signed Normal [facility] Emergency Department Summary on 03-12-2025 Emergency Department Summary [facility] Medical Records Department [address] [place] [address] Emergency Department Summary 03/12/25 MR#: [id number] Acct: [id number] Name: RUBEN LOBO Rep #: [id number] : 1945 79 From: Tex Chavarria DO PCP: Dr. Rip De La Garza MD Status:ADM MELI Location: [address] History of Present Illness Chief Complaint: [...] just nausea for the past 2 days. 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 Normal [facility] H AND P Exam - [facility] 03-12-2025 H&P Exam - Hospitalist [facility] Medical Records Department [address] [place] [address] H P Exam - Hospitalist 03/12/25 0940 MR#: [id number] Acct: [id number] Name: RUBEN LOBO Rep #: [id number] : 1945 79 From: Anthony Owen MD PCP: Dr. Rip De La Garza MD Status:ADM MELI Location: [place] [address] HPI - General General Date of Admission: 03/12/25 Date of Service: 03/12/25 Chief Complaint: Fatigue HPI Narrative RUBEN OLBO, is a 79 Fwith past medical history [...] EKG which demonstrated second-degree AV block. The egg packer on-call Dr. 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 Normal [facility] normalized rat io (INR) calculationOrdered By: Tex Chavarria on 03-12-2025 INR Coag (Bld) [Relative time] 1.3 {INR} [facility] L499.0042on 03-12-2025 Trop T High Sen 12 ng/L Normal <=14 [facility] Comment on above: Performed By: #### L 500.2500, L100.0100, L501.4020 #### [facility] [address] [place], [address] L499.0043on 03-12-2025 Trop T High Sen 12 ng/L Normal <=14 [facility] Comment on above: Performed By: #### L 499.0043 #### [facility] [address] [place], [address] L501.4021on 03-12-2025 Trop T High Sen 13 ng/L Normal <=14 [facility] Comment on above: Performed By: #### L 500.2500, L100.0100, L501.4020 #### [facility] [address] [place], [address] L503.7505on 03-12-2025 Natriuretic peptide B (Bld) [Mass/Vol] 1002 pg/mL Normal <=1800 [facility] Comment on above: Result Comment: Hear t Failure Unlikely: < 300 pg/mL Heart Failure Likely < 50 Years: > 450 pg/mL 50-75 Years: > 900 pg/mL >75 Years: > 1800 pg/mL Performed By: #### L 500.2500, L100.0100, L501.4020 #### [facility] [address] [place], [address] Laboratory - Chemistry and C hemistry - challengeOrdered By: Tex Chavarria on 03-12-2025 AST [Catalytic activity/Vol] 24 U/L <32 [facility] Lipaseon 03-12-2025 Lipase [Catalytic activity/Vol] 80 U/L High 13-75 [facility] Comment on above: Result Comment: Kendra abrams note: LIPASE revised reference range effective 23. New Lipase methodology. Expected to produce lower values than the previous assay method. NEW Reference Range: 13 - 75 U/L Performed By: #### L 500.2500, L100.0100, L501.4020 #### [facility] [address] [place], [address] Lipase measurementOrdered By : Tex Chavarria on 03-12-2025 Lipase [Catalytic activity/Vol] 80 U/L High 13-75 [facility] Comment on above: Please note:LIPASE r evised reference range effective 23. New Lipase methodology. Expected to produce lower values than the previous assay method. NEW Reference Range: 13 - 75 U/L Natriuretic peptide.B prohor pearl N-Terminal [Mass/volume] in Serum or PlasmaOrdered By: Tex Chavarria on 03-12-2025 Natriuretic peptide.B prohormone N-Terminal [Mass/Vol] 1002 pg/mL <1800 [facility] Comment on above: Heart Failure Unlike ly: < 300 pg/mLHeart Failure Likely< 50 Years: > 450 pg/mL50-75 Years: > 900 pg/mL>75 Years: > 1800 pg/mL Partial Thromboplast Timeon 03-12-2025 aPTT Coag (Bld) [Time] 31.9 s Normal 24.1-36.2 [facility] Comment on above: Performed By: #### L 500.2500, L100.0100, L501.4020 #### [facility] [address] [place], [address] Prothrombin Time w/INRon INR Coag (PPP) [Relative time] 1.3 {INR} Normal [facility] Comment on above: Performed By: #### L 500.2500, L100.0100, L501.4020 #### [facility] [address] [place], [address] PT Coag (PPP) [Time] 16.4 s High 11.7-14.9 [facility] Comment on above: Performed By: #### L 500.2500, L100.0100, L501.4020 #### [facility] [address] [place], [address] Prothrombin timeOrdered By: Tex Chavarria on 03-12-2025 PT Coag (PPP) [Time] 16.4 s High 11.7-14.9 [facility] Serum globulin measurementOr dered By: Tex Chavarria on 03-12-2025 Globulin (S) [Mass/Vol] 3.1 g/dL 2.2-4.2 [facility] Serum or plasma alanine avery otransferase (ALT) measurementOrdered By: Tex Chavarria on 03-12-2025 ALT [Catalytic activity/Vol] 10 U/L <35 [facility] Serum or plasma albumin unruly urement (mass/volume)Ordered By: Tex Chavarria on 03-12-2025 Albumin [Mass/Vol] 4.0 g/dL 3.4-4.8 [facility] Serum or plasma albumin/glob ulin mass ratioOrdered By: Tex Chavarria on 03-12-2025 Albumin/Globulin [Mass ratio] 1.3 {ratio} 0.9-2.4 [facility] Serum or plasma alkaline javier sphatase measurementOrdered By: Tex Chavarria on 03-12-2025 ALP [Catalytic activity/Vol] 118 U/L High 35-104 [facility] TSH DL <= 0.005 mIU/L QnOrde red By: Anthony Owen on 03-12-2025 TSH Qn 3.660 uIU/mL 0.300-4.200 [facility] Thyroid Stim Hormone (TSH)on 03-12-2025 TSH 3.660 uIU/mL Normal 0.300-4.200 [facility] Comment on above: Performed By: #### L 500.2500, L100.0100, L501.4020 #### [facility] [address] [place], [address] Total proteinOrdered By: Clyde haylee Deon on 03-12-2025 Protein [Mass/Vol] 7.1 g/dL 5.9-8.4 [facility] Troponin T.cardiac [Mass/vol ume] in Serum or Plasma by High sensitivity methodOrdered By: Tex Chavarria on 03-12-2025 Troponin T.cardiac High sensitivity method [Mass/Vol] 12 ng/L <14 [facility] Troponin T.cardiac High sensitivity method [Mass/Vol] 12 ng/L <14 [facility] Troponin T.cardiac High sensitivity method [Mass/Vol] 13 ng/L <14 [facility] Magnetic resonance imaging r eportOrdered By: Yahir Moise on 01-26-2025 Study report [facility] Imaging Services [address] [place] [address] Spine Cervical (Routine) MR#: [id number] Acct: [id number] Name: RUBEN LOBO Rep #: [id number] : 1945 F 79 From: Coral Moise MD PCP: Dr. Rip De La Garza MD Status: REG CLI Study:Spine Cervical (Routine) Date of Exam: 01/26/25 Exam# [id number] Ordering Dr: Alexis De La Garza MD PROCEDURE: SPINE CERVICAL (ROUTINE) REASON FOR EXAM: CERVICAL PAIN S/P SURGICAL INTERVENTION AND FAILED PT IN PAST TECHNIQUE: Cervical spine MRI without intravenous gadolinium-based contrast. COMPARISON: 07/19/2024. FINDINGS: Cervical vertebral body heights are preserved. Prominent marrow edema within thedens and sywd-rcrmbbf-tbei-ri ght anterior arch of C1 with small surrounding degenerative soft tissue pannus, similar to slightly increased from 07/08/2024. Severe loss of joint space between the anterior arch of C1 and the dens again noted. No significant malalignment. Operative changes of the upper thoracic spine better depicted on separately dictated MRI thoracic spine. Unremarkable cervical cord signal. C2-3: Mild left owdn-vlqqhiv-ziui-ri ght facet arthropathy. No significant spinal canal or foraminal stenosis. C3-4: Mild diffuse disc bulging. Mild facet arthropathy, bhvt-uyaccux-toss-ri ght. Minimal focal spinal canal stenosis. No [...] 2. Additional description as above. Reading Location: [id number] CC: Dr. Rip De La Garza MD ~ [employer] Detail: Signed [facility] Magnetic resonance imaging r eportOrdered By: Anthony Ryan on 01-26-2025 Study [address] [facility] Imaging Services [address] [place] [address] Spine Thoracic (Routine) MR#: [id number] Acct: [id number] Name: RUBEN LOBO Rep #: [id number] : 1945 F 79 From: Valentino Ryan MD PCP: Dr. Rip De La Garza MD Status: REG CLI Study:Spine Thoracic (Routine) Date of Exam: 01/26/25 Exam# [id number] Ordering Dr: Alexis De La Garza MD [...] 3. Additional findings as noted Reading Location: [address] CC: Dr. Rip De La Garza MD ~ [employer] Detail: Signed [facility] Spine Cervical (Routine)on 0 01-26-2025 Spine Cervical (Routine) [facility] Imaging Services [address] [place] [address] Spine Cervical (Routine) MR#: [id number] Acct: [id number] Name: RUBEN LOBO Rep #: [id number] : 1945 F 79 From: Yahir Moise MD PCP: Dr. Rip De La Garza MD Status: REG CLI Study: Spine Cervical (Routine) Date of Exam: Exam# [id number] Ordering Dr: Rip De La Garza MD PROCEDURE: SPINE CERVICAL (ROUTINE) REASON FOR EXAM: CERVICAL PAIN S/P SURGICAL INTERVENTION AND FAILED PT IN PAST TECHNIQUE: Cervical spine MRI without intravenous gadolinium-based contrast. COMPARISON: 07/19/2024. FINDINGS: Cervical vertebral body heights are preserved. Prominent marrow edema within the dens and srnj-vjhuzru-zqip-ri ght anterior arch of C1 with small surrounding degenerative soft tissue pannus, similar to slightly increased from 07/08/2024. Severe loss of joint space between the anterior arch of C1 and the dens again noted. No significant malalignment. Operative changes of the upper thoracic spine better depicted on separately dictated MRI thoracic spine. Unremarkable cervical cord signal. C2-3: Mild left muaw-dpdtzln-sptw-ri ght facet arthropathy. No significant spinal canal or foraminal stenosis. C3-4: Mild diffuse disc bulging. Mild facet arthropathy, cazm-rtzjchv-efaa-ri ght. Minimal focal spinal canal stenosis. No [...] 2. Additional description as above. Reading Location: [id number] CC: Dr. Rip De La Garza MD [employer] Detail: Signed Normal [facility] Spine Thoracic (Routine)on 0 01-26-2025 Spine Thoracic (Routine) [facility] Imaging Services [address] [place] [address] Spine Thoracic (Routine) MR#: [id number] Acct: [id number] Name: RUBEN LOBO Rep #: [id number] : 1945 F 79 From: Anthony Barnard PCP: Dr. Rip De La Garza MD Status: REG CLI Study: Spine Thoracic (Routine) Date of Exam: Exam# [id number] Ordering Dr: Rip De La Garza MD [...] 3. Additional findings as noted Reading Location: [address] CC: Dr. Rip De La Garza MD [employer] Detail: Signed Normal [facility] Office Visiton 01-05-2025 Follow-up visit [id number] Ruben Lobo 1945 F Date Provider Department Center 01/05/2025 [id number] THAKUR [facility] D[facility] None No family history on file Level of Service:94934 ND OFFICE/OUTPATIENT NEW HIGH MDM 60 MINUTES Reason for Visit and Comments: Atrial Flutter [101] - Atypical Other [0] - 1962 ASD closure Atrial Fibrillation [80] - PAF Hypertension [622566] Normal [facility] Progress Noteon 01-05-2025 Progress Note [facility] Cardiology/Electroph ysiology New Patient clinic Note Chief [...] History: Past Medical History: Diagnosis Date A-fib ([facility]) ([facility]) 10/14/2024 On Eliquis Anxiety 10/14/2024 Congenital heart disease 11/11/1963 Mixed hyperlipidemia 07/09/2024 CLARISSE on CPAP 10/14/2024 Rheumatoid arthritis involving multiple sites ([facility]) ([facility]) 07/09/2024 Typical atrial flutter ([facility]) 10/14/2024 Past Surgical History Past [...] steady; 5/5 (more content not included)... Normal [facility] 12 Lead EKG performed by [facility] on 09-15-2024 12 Lead EKG performed by [facility] [address] [place] [address] 12 Lead EKG performed by [facility] 09/15/24806 MR#: [id number] Acct: [id number] Name: RUBEN LOBO Rep #: [id number] : 1945 79 From: Radha Rodriguez MD Attending Dr: Dr. Radha oRdriguez MD Status: DE P AMB Ordering Dr: Radha Rodriguez MD Date: 09/15/24 Location: [facility] Sex: F C Admitted: [facility]/12 Lead EKG performed by [facility] ECG Report Interpretation ------Atrial flutter -Diffuse ST depression + Nonspecific T-abnormality -Nondiagnostic. ABNORMAL Electronically signed on 09/15/2024 at 15:[address] Radha Rodriguez [employer] Software Version 8610 09/15/244 Date Radha Rodriguez MD CC: Dr. Rip De La Garza MD Date Dictated: 09/15/24806 Date Transcribed: 09/15/24806 [employer] Detail: Signed Normal [facility] Cardiology Visit Reporton Cardiology Visit Report [facility] [address] [place] [address] OFFICE VISIT Date of Service: 09/15/24 MR#: [id number] Acct: [id number] Name: RUBEN LOBO Andres Rep #: [id number] : 1945 Provider: Dr. Radha collier MD Age/Sex: 79/F Location: [facility] Status: Signed HPI HPI History of Present [...] air Intake Visit Reasons: 6 WK FU Derrick Operator Required: No Is patient in pain?: No [...] you fallen in the past year?: Yes [facility] Medical History Postoperative hematoma Dehydration Dizziness Intractable [...] cardioversion CLARISSE (obstructive sleep apnea) Mixed hyperlipidemia prison current use of 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 drug Pulmonary hypertension Chronic cholecystitis with calculus Paroxysmal atrial fibrillation Essential (primary) hypertension Esophageal hiatal hernia 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, left prison current use of anticoagulant Atrial flutter GERD (gastroesophageal reflux disease) Surgical History ... [facility] Inital Evaluation (1) - PTon 09-14-2024 Inital Evaluation (1) - PT [facility] Physical Therapy [facility] [address] [place] [address] / REHABILITATION SERVICES INITIAL EVALUATION MR#: [id number] Acct: [id number] Name: RUBEN LOBO Rep #: [id number] : 1945 79 From: Roberto Cortez DPT Referring Dr.: Abdulaziz Banegas MD Status: REG RCR Insurance: [employer] PPO SELF PAY INSURANCE Patient's Visit Information Visit Information Visit Information: RUBEN LOBO is a 79 year old F referred to Physical Therapy by Abdulaziz Banegas MD with a diagnosis of cervicothoracic spinal stenosis. Date of Evaluation: 09/10/24 Physical Therapist: oRberto Cortez DPT Visit Plan Frequency: 2x /Week [...] Medicare and (more content not included)... Normal [facility] Echo Completeon 09-04-2024 Echo Complete [facility] Cardiovascular Services [address] [place] [address] Echo Complete 09/04/24 1307 MR#: [id number] Acct: [id number] Name: RUBEN LOBO Rep #: [id number] : 1945 79 From: Cory Montes MD Attending Dr: Dr. Radha Rodriguez MD Status: [facility] Ordering Dr: Radha Rodriguez MD Date: 09/04/24 Location: [facility] Sex: F C Admitted: [...] Date Dictated: 09/04/24 1307 Date Transcribed: 09/04/241635 [employer] Detail: Signed Normal [facility] Abdomen/Pelvis WITH Contrast on 08-28-2024 Abdomen/Pelvis WITH Contrast [facility] Imaging Services [address] [place] [address] [id number] Abdomen/Pelvis WITH Contrast MR#: [id number] Acct: [id number] Name: RUBEN LOBO Andres Rep #: [id number] : 1945 F 79 From: Parker Barnard PCP: Dr. Rip De La Garza MD Status: [facility] Study: Abdomen/Pelvis WITH Contrast Date of Exam: Exam# [id number] Ordering Dr: Rip De La Garza MD [id number] EXAM: CT ABDOMEN AND PELVIS WITH INTRAVENOUS [...] CC: Dr. Rip De La Garza MD [employer] Detail: Signed Normal [facility] CREATININE FINGERSTICKon CREATININE WB < 1.0 Normal 0.55-1.02 [facility] Comment on above: Performed By: #### L 500.2500, L100.0100, L501.4020 #### [facility] [address] [place], [address] EGFR WB > 60.0000 Normal >60 [facility] Comment on above: Performed By: #### L 500.2500, L100.0100, L501.4020 #### [facility] [address] [place], [address] 12 Lead EKG performed by [facility] on 08-18-2024 12 Lead EKG performed by [facility] [address] [place] [address] 12 Lead EKG performed by [facility] 08/18/2434 MR#: [id number] Acct: [id number] Name: RUBEN LOBO Rep #: [id number] : 1945 79 From: Radha Rodriguez MD Attending Dr: Dr. Radha Rodriguez MD Status: DE P AMB Ordering Dr: Radha Rodriguez MD Date: 08/18/24 Location: [facility] Sex: F C Admitted: [facility]/12 Lead EKG performed by [facility] ECG Report Interpretation ------Atypical Atrial Flutter with 2:1 conduction Nonspecific T-abnormality ABNORMAL Electronically signed on 08/18/2024 at 14:[address] Radha Rodriguez [employer] Software Version 8610 08/18/24 1429 Date Radha Rodriguez MD CC: Dr. Rip De La Garza MD Date Dictated: 08/18/24933 Date Transcribed: 08/18/24933 [employer] Detail: Signed Normal [facility] Cardiology Visit Reporton Cardiology Visit Report [facility] [address] [place], [place] [address] OFFICE VISIT Date of Service: 08/18/24 MR#: [id number] Acct: [id number] Name: RUBEN LOBO Rep #: [id number] : 1945 Provider: Dr. Radha collier MD Age/Sex: 79/F Location: [facility] Status: Signed HPI HPI History of Present [...] op report from her recent hospitalization at [facility]. She was not aware that she was in anything other than sinus tach. She is still wearing a c-collar brace. She is to follow-up with the neurosurgeon next week. Her [id number] score is 4. Intake Vital Signs 07/08/24 16:08 07/20/24 14:14 08/18/24 13:34 Height 5 ft 1 in 5 ft 5 ft Weight: 111 lb BMI 21.7 BP 117/77 Blood Pressure Location Lt brachial Position Sitting Respiration 18 Pulse 104 H Pulse Source Monitor Pulse Oximetry (%) 97 Oxygen Delivery Method room air Intake Visit Reasons: 6 M FU Derrick Operator Required: No Accompanied by: Self Is patient [...] you fallen in the past year?: Yes [facility] Medical History Postoperative hematoma Dehydration Dizziness Intractable [...] cardioversion CLARISSE (obstructive sleep apnea) Mixed hyperlipidemia prison current use of 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 drug Pulmonary hypertension Chronic cholecystitis with calculus Paroxysmal atrial fibrillation Essential (primary) hypertension Esophageal hiatal hernia 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, left emt intermediate current use of anticoagulant Atrial flutter GERD [...] Family H (more content not included)... Normal [facility] Celiac Disease Profileon ENDOMYSIAL IGA Negative Normal Negative [facility] Comment on above: Performed By: #### L 3410.2400, L5.0 ####[facility] [id number] [place], [place], [id number] IMMUNOGLOB A QN 539 mg/dL High 64-422 [facility] Comment on above: Result Comment: Perf ormed at: CB - [facility] [address] [id number] Track Service Worker: Marcelo Willard PhD, Phone: [phone] Performed By: #### L 3410.2400, L5.0 ####[facility] [id number] [place], [place], [id number] tTG IGA <2 Normal 0-3 [facility] Comment on above: Result Comment: Nega tive 0 - 3 Weak Positive 4 - 10 Positive >10 Tissue Transglutaminase (tTG) has been identified as the endomysial antigen. Studies have demonstr- ated that endomysial IgA antibodies have over 99% specificity for gluten sensitive enteropathy. Performed By: #### L 3410.2400, L5.2450 ####[facility] [id number] [place], [place], [id number] CBC W/Diff, Automatedon 07-13 Absolute Lymph 1.24 X10 3/uL Normal 0.83-4.51 [facility] Comment on above: Order Comment: 'TROP ' Serial specimen #1, #2 or #3: 1 Performed By: #### L 500.2500, L100.0100, L501.4020 #### [facility] [address] [place], [address] Absolute Neut 2.9 X10 3/uL Normal 2.0-7.7 [facility] Comment on above: Order Comment: 'TROP ' Serial specimen #1, #2 or #3: 1 Performed By: #### L 500.2500, L100.0100, L501.4020 #### [facility] [address] [place], [address] Basophils/100 WBC (Bld) 0.6 % Normal 0-1 [facility] Comment on above: Order Comment: 'TROP ' Serial specimen #1, #2 or #3: 1 Performed By: #### L 500.2500, L100.0100, L501.4020 #### [facility] [address] [place], [address] Eosinophils/100 WBC (Bld) 1.5 % Normal 0-5 [facility] Comment on above: Order Comment: 'TROP ' Serial specimen #1, #2 or #3: 1 Performed By: #### L 500.2500, L100.0100, L501.4020 #### [facility] [address] [place], [address] Erythrocyte distribution width (RBC) [Ratio] 17.9 % High 11.6-14.6 [facility] Comment on above: Order Comment: 'TROP ' Serial specimen #1, #2 or #3: 1 Performed By: #### L 500.2500, L100.0100, L501.4020 #### [facility] [address] [place], [address] Hematocrit (Bld) [Volume fraction] 37.6 % Normal 37-47 [facility] Comment on above: Order Comment: 'TROP ' Serial specimen #1, #2 or #3: 1 Performed By: #### L 500.2500, L100.0100, L501.4020 #### [facility] [address] [place], [address] Hemoglobin (Bld) [Mass/Vol] 11.5 g/dL Low 12.0-15.0 [facility] Comment on above: Order Comment: 'TROP ' Serial specimen #1, #2 or #3: 1 Performed By: #### L 500.2500, L100.0100, L501.4020 #### [facility] [address] [place], [address] IG% 0.400 Normal 0.0-0.9 [facility] Comment on above: Order Comment: 'TROP ' Serial specimen #1, #2 or #3: 1 Result Comment: IG% - Immature Granulocytes (promyelocytes, myelocytes and metamyelocytes) > 1% indicates that a LEFT SHIFT is Present. Performed By: #### L 500.2500, L100.0100, L501.4020 #### [facility] [address] [place], [address] Lymphocytes/100 WBC (Bld) 26.7 % Normal 19-41 [facility] Comment on above: Order Comment: 'TROP ' Serial specimen #1, #2 or #3: 1 Performed By: #### L 500.2500, L100.0100, L501.4020 #### [facility] [address] [place], [address] MCH (RBC) [Entitic mass] 30.0 pg Normal 27.0-32.0 [facility] Comment on above: Order Comment: 'TROP ' Serial specimen #1, #2 or #3: 1 Performed By: #### L 500.2500, L100.0100, L501.4020 #### [facility] [address] [place], [address] MCHC (RBC) [Mass/Vol] 30.6 g/dL Low 32-36 [facility] Comment on above: Order Comment: 'TROP ' Serial specimen #1, #2 or #3: 1 Performed By: #### L 500.2500, L100.0100, L501.4020 #### [facility] [address] [place], [address] MCV (RBC) [Entitic vol] 98.2 fL Normal 81-99 [facility] Comment on above: Order Comment: 'TROP ' Serial specimen #1, #2 or #3: 1 Performed By: #### L 500.2500, L100.0100, L501.4020 #### [facility] [address] [place], [address] Monocytes/100 WBC (Bld) 8.2 % Normal 0-10 [facility] Comment on above: Order Comment: 'TROP ' Serial specimen #1, #2 or #3: 1 Performed By: #### L 500.2500, L100.0100, L501.4020 #### [facility] [address] [place], [address] Neutrophils/100 WBC (Bld) 62.6 % Normal 47-70 [facility] Comment on above: Order Comment: 'TROP ' Serial specimen #1, #2 or #3: 1 Performed By: #### L 500.2500, L100.0100, L501.4020 #### [facility] [address] [place], [address] Nucleated RBC (Bld) [#/Vol] 0 10*3/uL Normal 0-5 [facility] Comment on above: Order Comment: 'TROP ' Serial specimen #1, #2 or #3: 1 Performed By: #### L 500.2500, L100.0100, L501.4020 #### [facility] [address] [place], [address] Platelet mean volume (Bld) [Entitic vol] 11.3 fL Normal 6.2-12.0 [facility] Comment on above: Order Comment: 'TROP ' Serial specimen #1, #2 or #3: 1 Performed By: #### L 500.2500, L100.0100, L501.4020 #### [facility] [address] [place], [address] Platelets (Bld) [#/Vol] 178 10*3/uL Normal 150-450 [facility] Comment on above: Order Comment: 'TROP ' Serial specimen #1, #2 or #3: 1 Performed By: #### L 500.2500, L100.0100, L501.4020 #### [facility] [address] [place], [address] RBC (Bld) [#/Vol] 3.83 10*6/uL Low 4.2-5.4 [facility] Comment on above: Order Comment: 'TROP ' Serial specimen #1, #2 or #3: 1 Performed By: #### L 500.2500, L100.0100, L501.4020 #### [facility] [address] [place], [address] RDW SD 63.0 fl High 35.1-43.9 [facility] Comment on above: Order Comment: 'TROP ' Serial specimen #1, #2 or #3: 1 Performed By: #### L 500.2500, L100.0100, L501.4020 #### [facility] [address] [place], [address] WBC (Bld) [#/Vol] 4.6 10*3/uL Normal 4.4-11.0 [facility] Comment on above: Order Comment: 'TROP ' Serial specimen #1, #2 or #3: 1 Performed By: #### L 500.2500, L100.0100, L501.4020 #### [facility] [address] [place], [address] Ferritinon 07-31-2024 Ferritin [Mass/Vol] 88 ng/mL Normal 8-252 [facility] Comment on above: Order Comment: 'TROP ' Serial specimen #1, #2 or #3: 1 Performed By: #### L 500.2500, L100.0100, L501.4020 #### [facility] [address] [place], [address] Iron Binding Capacity,Totalo n 07-31-2024 TIBC 404 ug/dL Normal 250-450 [facility] Comment on above: Order Comment: 'TROP ' Serial specimen #1, #2 or #3: 1 Performed By: #### L 500.2500, L100.0100, L501.4020 #### [facility] [address] [place], [address] Lipaseon 07-31-2024 Lipase [Catalytic activity/Vol] 174 U/L High 13-75 [facility] Comment on above: Order Comment: Order Date: 07/23/24Order Info: 2500-7 - TIBCOrder Info: [id number] - DONY Result Comment: Kendra abrams note: LIPASE revised reference range effective 23. New Lipase methodology. Expected to produce lower values than the previous assay method. NEW Reference Range: 13 - 75 U/L Performed By: #### L 3410.2400, L501.2450 ####[facility] [address] [place], [address] Retic Panelon 07-31-2024 IM RET FRACTION 18.20 High 3.00-15.90 [facility] Comment on above: Order Comment: 'TROP ' Serial specimen #1, #2 or #3: 1 Performed By: #### L 500.2500, L100.0100, L501.4020 #### [facility] [address] [place], [address] RET-HE 31.9 pg Normal 30-35 [facility] Comment on above: Order Comment: 'TROP ' Serial specimen #1, #2 or #3: 1 Performed By: #### L 500.2500, L100.0100, L501.4020 #### [facility] [address] [place], [address] Retic Count 4.98 High 0.5-1.5 [facility] Comment on above: Order Comment: 'TROP ' Serial specimen #1, #2 or #3: 1 Performed By: #### L 500.2500, L100.0100, L501.4020 #### [facility] [address] [place], [address] [facility] Telephone (HCSIND) RUBEN LOBO ([id number]) 1945 F Date Time Provider Department 07/27/24 FRANCES VANN HCSIND During your visit today, we recorded the following information about you: Frances Vann, RESPITE COORDINATOR 07/27/2024 11:35 AM Signed Unmade PT visit [...] Status:Closed by FRANCES VANN on 07/27/24 Normal [facility] Culture, Blood (WB)on 2023 CUB No growth in 5 days. Normal [facility] Comment on above: Performed By: #### L 503.6005 #### [facility] [address] [place], [address] CBC W/Diff, Automatedon 07-12-2023 Absolute Lymph 1.46 X10 3/uL Normal 0.83-4.51 [facility] Comment on above: Performed By: #### L 500.2500, L100.0100, L501.4020 #### [facility] [address] [place], [address] Absolute Neut 6.5 X10 3/uL Normal 2.0-7.7 [facility] Comment on above: Performed By: #### L 500.2500, L100.0100, L501.4020 #### [facility] [address] [place], [address] Basophils/100 WBC (Bld) 0.3 % Normal 0-1 [facility] Comment on above: Performed By: #### L 500.2500, L100.0100, L501.4020 #### [facility] [address] [place], [address] Eosinophils/100 WBC (Bld) 0.8 % Normal 0-5 [facility] Comment on above: Performed By: #### L 500.2500, L100.0100, L501.4020 #### [facility] [address] [place], [address] Erythrocyte distribution width (RBC) [Ratio] 15.4 % High 11.6-14.6 [facility] Comment on above: Performed By: #### L 500.2500, L100.0100, L501.4020 #### [facility] [address] [place], [address] Hematocrit (Bld) [Volume fraction] 27.2 % Low 37-47 [facility] Comment on above: Performed By: #### L 500.2500, L100.0100, L501.4020 #### [facility] [address] [place], [address] Hemoglobin (Bld) [Mass/Vol] 8.4 g/dL Low 12.0-15.0 [facility] Comment on above: Performed By: #### L 500.2500, L100.0100, L501.4020 #### [facility] [address] [place], [address] IG% 0.600 Normal 0.0-0.9 [facility] Comment on above: Result Comment: IG% - Immature Granulocytes (promyelocytes, myelocytes and metamyelocytes) > 1% indicates that a LEFT SHIFT is Present. Performed By: #### L 500.2500, L100.0100, L501.4020 #### [facility] [address] [place], [address] Lymphocytes/100 WBC (Bld) 16.6 % Low 19-41 [facility] Comment on above: Performed By: #### L 500.2500, L100.0100, L501.4020 #### [facility] [address] [place], [address] MCH (RBC) [Entitic mass] 29.5 pg Normal 27.0-32.0 [facility] Comment on above: Performed By: #### L 500.2500, L100.0100, L501.4020 #### [facility] [address] [place], [address] MCHC (RBC) [Mass/Vol] 30.9 g/dL Low 32-36 [facility] Comment on above: Performed By: #### L 500.2500, L100.0100, L501.4020 #### [facility] [address] [place], [address] MCV (RBC) [Entitic vol] 95.4 fL Normal 81-99 [facility] Comment on above: Performed By: #### L 500.2500, L100.0100, L501.4020 #### [facility] [address] [place], [address] Monocytes/100 WBC (Bld) 7.8 % Normal 0-10 [facility] Comment on above: Performed By: #### L 500.2500, L100.0100, L501.4020 #### [facility] [address] [place], [address] Neutrophils/100 WBC (Bld) 73.9 % High 47-70 [facility] Comment on above: Performed By: #### L 500.2500, L100.0100, L501.4020 #### [facility] [address] [place], [address] Nucleated RBC (Bld) [#/Vol] 0 10*3/uL Normal 0-5 [facility] Comment on above: Performed By: #### L 500.2500, L100.0100, L501.4020 #### [facility] [address] [place], [address] Platelet mean volume (Bld) [Entitic vol] 10.7 fL Normal 6.2-12.0 [facility] Comment on above: Performed By: #### L 500.2500, L100.0100, L501.4020 #### [facility] [address] [place], [address] Platelets (Bld) [#/Vol] 142 10*3/uL Low 150-450 [facility] Comment on above: Performed By: #### L 500.2500, L100.0100, L501.4020 #### [facility] [address] [place], [address] RBC (Bld) [#/Vol] 2.85 10*6/uL Low 4.2-5.4 [facility] Comment on above: Performed By: #### L 500.2500, L100.0100, L501.4020 #### [facility] [address] [place], [address] RDW SD 53.0 fl High 35.1-43.9 [facility] Comment on above: Performed By: #### L 500.2500, L100.0100, L501.4020 #### [facility] [address] [place], [address] WBC (Bld) [#/Vol] 8.8 10*3/uL Normal 4.4-11.0 [facility] Comment on above: Performed By: #### L 500.2500, L100.0100, L501.4020 #### [facility] [address] [place], [address] CNPNon 07-21-2024 CNPN Telephone (HCSIND) RUBEN LOBO ([id number]) 1945 F Date Time Provider Department 07/21/24 [...] Allergies) Date Reviewed: 07/16/2024 Reviewed by: Pratima Vears, PT - Fully Assessed Reason for Visit: [...] Encounter Status:Closed by DORY العراقي on 07/21/24 [facility] Telephone (HCSIND) RUBEN LOBO ([id number]) 1945 F Date Time Provider Department 07/21/24 ERIN CHISHOLM HCSIND During your visit today, we recorded the following information about you: Erin Chisholm 07/21/2024 12:44 PM Signed Date/Time: 07/21/2024 12:42 PM Spoke with Jaxon @ phone #: [phone] - Preferred # for contact: [phone] Have you received help from a home care company in the last 60 days? [facility] Are you agreeable to [facility] services? yes What address will we be seeing you at? [address] [place] [id number] Do you have any upcoming appointments or [...] Status:Closed by ERIN CHISHOLM on 07/21/24 Normal [facility] Discharge Instructionon - Discharge Instruction [facility] Medical Records Department [address] [place] [address] Instructions for Home/Discharge Instructions 07/21/24 1220 MR#: [id number] Acct: [id number] Name: RUBEN LOBO Rep #: [id number] : 1945 79 From: Yahir Thrasher DO [...] MD; Dr. Mady Ricardo MD Signed Normal [facility] Basic Metabolic Profile (BMP )on 07-20-2024 BUN/CRE 26.3 RATIO High 10-20 [facility] Comment on above: Performed By: #### L 500.2500, L100.0100, L501.4020 #### [facility] [address] [place], [address] CA,Total 8.7 mg/dL Normal 8.5-10.1 [facility] Comment on above: Performed By: #### L 500.2500, L100.0100, L501.4020 #### [facility] [address] [place], [address] Chloride [Moles/Vol] 108 mmol/L High 98-107 [facility] Comment on above: Performed By: #### L 500.2500, L100.0100, L501.4020 #### [facility] [address] [place], [address] CO2 [Moles/Vol] 27.0 mmol/L Normal 21.0-32.0 [facility] Comment on above: Performed By: #### L 500.2500, L100.0100, L501.4020 #### [facility] [address] [place], [address] Creatinine [Mass/Vol] 0.84 mg/dL Normal 0.55-1.02 [facility] Comment on above: Result Comment: The validity of the calculated GFR GFRAA in patients over 70 years has not been determined. Clinical correlation is essential. Performed By: #### L 500.2500, L100.0100, L501.4020 #### [facility] [address] [place], [address] ECRCL 39.01 ml/min Normal [facility] Comment on above: Performed By: #### L 500.2500, L100.0100, L501.4020 #### [facility] [address] [place], [address] EST GFR - AA 85 mL/min Normal >60 [facility] Comment on above: Result Comment: Afri can Norwegian GFR Calc Performed By: #### L 500.2500, L100.0100, L501.4020 #### [facility] [address] [place], [address] GAP 6 Normal 5-15 [facility] Comment on above: Performed By: #### L 500.2500, L100.0100, L501.4020 #### [facility] [address] [place], [address] GFR/1.73 sq M.predicted among non-blacks MDRD (S/P/Bld) [Vol rate/Area] 70 mL/min/{1.73_m2} Normal >60 [facility] Comment on above: Result Comment: Non- GFR Calc Performed By: #### L 500.2500, L100.0100, L501.4020 #### [facility] [address] [place], [address] Glucose [Mass/Vol] 128 mg/dL High 74-106 [facility] Comment on above: Result Comment: Fast ing Glucose result greater than or equal to 126 mg/dL suggests DIABETES MELLITUS per A.D.A. criteria. Performed By: #### L 500.2500, L100.0100, L501.4020 #### [facility] [address] [place], [address] Potassium [Moles/Vol] 4.1 mmol/L Normal 3.5-5.1 [facility] Comment on above: Performed By: #### L 500.2500, L100.0100, L501.4020 #### [facility] [address] [place], [address] Sodium [Moles/Vol] 141 mmol/L Normal 136-145 [facility] Comment on above: Performed By: #### L 500.2500, L100.0100, L501.4020 #### [facility] [address] [place], [address] Urea nitrogen [Mass/Vol] 22 mg/dL High 7-18 [facility] Comment on above: Performed By: #### L 500.2500, L100.0100, L501.4020 #### [facility] [address] [place], [address] CBC W/Diff, Automatedon 09-0 9-2024 Absolute Lymph 2.08 X10 3/uL Normal 0.83-4.51 [facility] Comment on above: Performed By: #### L 500.2500, L100.0100, L501.4020 #### [facility] [address] [place], [address] Absolute Neut 6.0 X10 3/uL Normal 2.0-7.7 [facility] Comment on above: Performed By: #### L 500.2500, L100.0100, L501.4020 #### [facility] [address] [place], [address] Basophils/100 WBC (Bld) 0.4 % Normal 0-1 [facility] Comment on above: Performed By: #### L 500.2500, L100.0100, L501.4020 #### [facility] [address] [place], [address] Eosinophils/100 WBC (Bld) 0.4 % Normal 0-5 [facility] Comment on above: Performed By: #### L 500.2500, L100.0100, L501.4020 #### [facility] [address] [place], [address] Erythrocyte distribution width (RBC) [Ratio] 15.6 % High 11.6-14.6 [facility] Comment on above: Performed By: #### L 500.2500, L100.0100, L501.4020 #### [facility] [address] [place], [address] Hematocrit (Bld) [Volume fraction] 27.4 % Low 37-47 [facility] Comment on above: Performed By: #### L 500.2500, L100.0100, L501.4020 #### [facility] [address], [address] Hemoglobin (Bld) [Mass/Vol] 8.4 g/dL Low 12.0-15.0 [facility] Comment on above: Performed By: #### L 500.2500, L100.0100, L501.4020 #### [facility] [address] [place], [address] IG% 0.600 Normal 0.0-0.9 [facility] Comment on above: Result Comment: IG% - Immature Granulocytes (promyelocytes, myelocytes and metamyelocytes) > 1% indicates that a LEFT SHIFT is Present. Performed By: #### L 500.2500, L100.0100, L501.4020 #### [facility] [address] [place], [address] Lymphocytes/100 WBC (Bld) 23.2 % Normal 19-41 [facility] Comment on above: Performed By: #### L 500.2500, L100.0100, L501.4020 #### [facility] [address] [place], [address] MCH (RBC) [Entitic mass] 28.9 pg Normal 27.0-32.0 [facility] Comment on above: Performed By: #### L 500.2500, L100.0100, L501.4020 #### [facility] [address] [place], [address] MCHC (RBC) [Mass/Vol] 30.7 g/dL Low 32-36 [facility] Comment on above: Performed By: #### L 500.2500, L100.0100, L501.4020 #### [facility] [address] [place], [address] MCV (RBC) [Entitic vol] 94.2 fL Normal 81-99 [facility] Comment on above: Performed By: #### L 500.2500, L100.0100, L501.4020 #### [facility] [address] [place], [address] Monocytes/100 WBC (Bld) 8.7 % Normal 0-10 [facility] Comment on above: Performed By: #### L 500.2500, L100.0100, L501.4020 #### [facility] [address] [place], [address] Neutrophils/100 WBC (Bld) 66.7 % Normal 47-70 [facility] Comment on above: Performed By: #### L 500.2500, L100.0100, L501.4020 #### [facility] [address] [place], [address] Nucleated RBC (Bld) [#/Vol] 0 10*3/uL Normal 0-5 [facility] Comment on above: Performed By: #### L 500.2500, L100.0100, L501.4020 #### [facility] [address] [place], [address] Platelet mean volume (Bld) [Entitic vol] 10.8 fL Normal 6.2-12.0 [facility] Comment on above: Performed By: #### L 500.2500, L100.0100, L501.4020 #### [facility] [address] [place], [address] Platelets (Bld) [#/Vol] 149 10*3/uL Low 150-450 [facility] Comment on above: Performed By: #### L 500.2500, L100.0100, L501.4020 #### [facility] [address] [place], [address] RBC (Bld) [#/Vol] 2.91 10*6/uL Low 4.2-5.4 [facility] Comment on above: Performed By: #### L 500.2500, L100.0100, L501.4020 #### [facility] [address] [place], [address] RDW SD 53.1 fl High 35.1-43.9 [facility] Comment on above: Performed By: #### L 500.2500, L100.0100, L501.4020 #### [facility] [address] [place], [address] WBC (Bld) [#/Vol] 9.0 10*3/uL Normal 4.4-11.0 [facility] Comment on above: Performed By: #### L 500.2500, L100.0100, L501.4020 #### [facility] [address] [place], [address] Urine Cultureon 07-20-2024 URC Culture exhibits no growth. Normal [facility] Comment on above: Performed By: #### M 100.2200 ####[facility] [address] [place], [address] 12 Lead EKGon 07-19-2024 12 Lead EKG [facility] Cardiovascular Services [address] [place] [address] 12 Lead EKG 07/19/24 1014 MR#: [id number] Acct: [id number] Name: RUBEN LOBO Rep #: [id number] : 1945 79 From: Cory Montes MD Attending Dr: Dr. Yahir Thrasher DO Status: A DM IN Ordering Dr: Dana Casarez DO Date: 07/19/24 Location: [facility] Sex: F C Admitted: 07/19/24 Test Reason [...] Abnormal ECG Confirmed by CORY MONTES MD ([id number]), book or script editor KRISTINE DURAN ([id number]) on 07/20/2024 2:49:03 PM Referred By: Confirmed By:CORY MONTES MD 07/20/24 1449 Date Cory Montes MD CC: Dr. Dana Casarez DO; Dr. Rip De La Garza MD; Dr. Yahir Thrasher DO Signed Normal [facility] Basic Metabolic Profile (BMP )on 07-19-2024 BUN/CRE 23.5 RATIO High 10-20 [facility] Comment on above: Order Comment: 'TROP ' Serial specimen #1, #2 or #3: 1 Performed By: #### L 500.2500, L100.0100, L501.4020 #### [facility] [address] [place], [address] CA,Total 9.5 mg/dL Normal 8.5-10.1 [facility] Comment on above: Order Comment: 'TROP ' Serial specimen #1, #2 or #3: 1 Performed By: #### L 500.2500, L100.0100, L501.4020 #### [facility] [address] [place], [address] Chloride [Moles/Vol] 106 mmol/L Normal 98-107 [facility] Comment on above: Order Comment: 'TROP ' Serial specimen #1, #2 or #3: 1 Performed By: #### L 500.2500, L100.0100, L501.4020 #### [facility] [address] [place], [address] CO2 [Moles/Vol] 28.0 mmol/L Normal 21.0-32.0 [facility] Comment on above: Order Comment: 'TROP ' Serial specimen #1, #2 or #3: 1 Performed By: #### L 500.2500, L100.0100, L501.4020 #### [facility] [address] [place], [address] Creatinine [Mass/Vol] 0.89 mg/dL Normal 0.55-1.02 [facility] Comment on above: Order Comment: 'TROP ' Serial specimen #1, #2 or #3: 1 Result Comment: The validity of the calculated GFR GFRAA in patients over 70 years has not been determined. Clinical correlation is essential. Performed By: #### L 500.2500, L100.0100, L501.4020 #### [facility] [address] [place], [address] ECRCL 36.82 ml/min Normal [facility] Comment on above: Order Comment: 'TROP ' Serial specimen #1, #2 or #3: 1 Performed By: #### L 500.2500, L100.0100, L501.4020 #### [facility] [address] [place], [address] EST GFR - AA 78 mL/min Normal >60 [facility] Comment on above: Order Comment: 'TROP ' Serial specimen #1, #2 or #3: 1 Result Comment: Afri can Norwegian GFR Calc Performed By: #### L 500.2500, L100.0100, L501.4020 #### [facility] [address] [place], [address] GAP 5 Normal 5-15 [facility] Comment on above: Order Comment: 'TROP ' Serial specimen #1, #2 or #3: 1 Performed By: #### L 500.2500, L100.0100, L501.4020 #### [facility] [address] [place], [address] GFR/1.73 sq M.predicted among non-blacks MDRD (S/P/Bld) [Vol rate/Area] 65 mL/min/{1.73_m2} Normal >60 [facility] Comment on above: Order Comment: 'TROP ' Serial specimen #1, #2 or #3: 1 Result Comment: Non- GFR Calc Performed By: #### L 500.2500, L100.0100, L501.4020 #### [facility] [address] [place], [address] Glucose [Mass/Vol] 215 mg/dL High 74-106 [facility] Comment on above: Order Comment: 'TROP ' Serial specimen #1, #2 or #3: 1 Result Comment: Gluc ose result greater than or equal to 200 mg/dL suggests DIABETES MELLITUS per A.D.A. criteria. Performed By: #### L 500.2500, L100.0100, L501.4020 #### [facility] [address] [place], [address] Potassium [Moles/Vol] 3.8 mmol/L Normal 3.5-5.1 [facility] Comment on above: Order Comment: 'TROP ' Serial specimen #1, #2 or #3: 1 Performed By: #### L 500.2500, L100.0100, L501.4020 #### [facility] [address] [place], [address] Sodium [Moles/Vol] 139 mmol/L Normal 136-145 [facility] Comment on above: Order Comment: 'TROP ' Serial specimen #1, #2 or #3: 1 Performed By: #### L 500.2500, L100.0100, L501.4020 #### [facility] [address] [place], [address] Urea nitrogen [Mass/Vol] 21 mg/dL High 7-18 [facility] Comment on above: Order Comment: 'TROP ' Serial specimen #1, #2 or #3: 1 Performed By: #### L 500.2500, L100.0100, L501.4020 #### [facility] [address] [place], [address] CBC W/Diff, Automatedon 09-0 Absolute Lymph 2.26 X10 3/uL Normal 0.83-4.51 [facility] Comment on above: Performed By: #### L 500.2500, L100.0100, L501.4020 #### [facility] [address] [place], [address] Absolute Neut 11.8 X10 3/uL High 2.0-7.7 [facility] Comment on above: Performed By: #### L 500.2500, L100.0100, L501.4020 #### [facility] [address] [place], [address] Basophils/100 WBC (Bld) 0.4 % Normal 0-1 [facility] Comment on above: Performed By: #### L 500.2500, L100.0100, L501.4020 #### [facility] [address] [place], [address] Eosinophils/100 WBC (Bld) 0.1 % Normal 0-5 [facility] Comment on above: Performed By: #### L 500.2500, L100.0100, L501.4020 #### [facility] [address] [place], [address] Erythrocyte distribution width (RBC) [Ratio] 15.2 % High 11.6-14.6 [facility] Comment on above: Performed By: #### L 500.2500, L100.0100, L501.4020 #### [facility] [address] [place], [address] Hematocrit (Bld) [Volume fraction] 35.9 % Low 37-47 [facility] Comment on above: Performed By: #### L 500.2500, L100.0100, L501.4020 #### [facility] [address] [place], [address] Hemoglobin (Bld) [Mass/Vol] 11.1 g/dL Low 12.0-15.0 [facility] Comment on above: Performed By: #### L 500.2500, L100.0100, L501.4020 #### [facility] [address] [place], [address] IG% 0.900 Normal 0.0-0.9 [facility] Comment on above: Result Comment: IG% - Immature Granulocytes (promyelocytes, myelocytes and metamyelocytes) > 1% indicates that a LEFT SHIFT is Present. Performed By: #### L 500.2500, L100.0100, L501.4020 #### [facility] [address] [place], [address] Lymphocytes/100 WBC (Bld) 14.7 % Low 19-41 [facility] Comment on above: Performed By: #### L 500.2500, L100.0100, L501.4020 #### [facility] [address] [place], [address] MCH (RBC) [Entitic mass] 28.8 pg Normal 27.0-32.0 [facility] Comment on above: Performed By: #### L 500.2500, L100.0100, L501.4020 #### [facility] [address] [place], [address] MCHC (RBC) [Mass/Vol] 30.9 g/dL Low 32-36 [facility] Comment on above: Performed By: #### L 500.2500, L100.0100, L501.4020 #### [facility] [address] [place], [address] MCV (RBC) [Entitic vol] 93.2 fL Normal 81-99 [facility] Comment on above: Performed By: #### L 500.2500, L100.0100, L501.4020 #### [facility] [address] [place], [address] Monocytes/100 WBC (Bld) 7.0 % Normal 0-10 [facility] Comment on above: Performed By: #### L 500.2500, L100.0100, L501.4020 #### [facility] [address] [place], [address] Neutrophils/100 WBC (Bld) 76.9 % High 47-70 [facility] Comment on above: Performed By: #### L 500.2500, L100.0100, L501.4020 #### [facility] [address] [place], [address] Nucleated RBC (Bld) [#/Vol] 0 10*3/uL Normal 0-5 [facility] Comment on above: Performed By: #### L 500.2500, L100.0100, L501.4020 #### [facility] [address] [place], [address] Platelet mean volume (Bld) [Entitic vol] 11.1 fL Normal 6.2-12.0 [facility] Comment on above: Performed By: #### L 500.2500, L100.0100, L501.4020 #### [facility] [address] [place], [address] Platelets (Bld) [#/Vol] 262 10*3/uL Normal 150-450 [facility] Comment on above: Performed By: #### L 500.2500, L100.0100, L501.4020 #### [facility] [address] [place], [address] RBC (Bld) [#/Vol] 3.85 10*6/uL Low 4.2-5.4 [facility] Comment on above: Performed By: #### L 500.2500, L100.0100, L501.4020 #### [facility] [address] [place], [address] RDW SD 51.3 fl High 35.1-43.9 [facility] Comment on above: Performed By: #### L 500.2500, L100.0100, L501.4020 #### [facility] [address] [place], [address] WBC (Bld) [#/Vol] 15.4 10*3/uL High 4.4-11.0 [facility] Comment on above: Performed By: #### L 500.2500, L100.0100, L501.4020 #### [facility] [address] [place], [address] CRPon 07-19-2024 C-REACTIVE PROT 10.60 mg/L High 0.0-3.0 [facility] Comment on above: Result Comment: C-Re active Protein (CRP) provides useful information for the diagnosis, therapy and monitoring of inflammatory processes and associated diseases. For the evaluation of Relative Risk for Cardiovascular Disease, a High Sensitivity CRP (HSCRP) should be ordered. Performed By: #### L 500.2500, L100.0100, L501.4020 #### [facility] [address] [place], [address] Chest 1 View (Portable)on Chest 1 View (Portable) [facility] Imaging Services [address] [place] [address] Chest 1 View (Portable) MR#: [id number] Acct: [id number] Name: RUBEN LOBO Andres Rep #: [id number] : 1945 F 79 From: Smith Wood MD PCP: Dr. Rip De La Garza MD Status: [facility] ER Study: Chest 1 View (Portable) Date of Exam: 07/19/24 Exam# [id number] Ordering Dr: Dana Casarez DO [id number] EXAM: XR CHEST, 1 VIEW CLINICAL INDICATION: [...] DO; Dr. Rip De La Garza MD [employer] Detail: Signed Normal [facility] Emergency Department Summary on 07-19-2024 Emergency Department Summary [facility] Medical Records Department [address] [place] [address] Emergency Department Summary 07/19/24 MR#: [id number] Acct: [id number] Name: RUBEN LOBO Rep #: [id number] : 1945 79 From: Dana Casarez DO PCP: Dr. Rip De La Garza MD Status:ADM IN Location: [address] History of Present Illness Chief Complaint: Back Informant: patient Narrative Narrative: Patient is a 79-year-old female with history of chronic atrial flutter/fibrillation on Eliquis, diltiazem and metoprolol as well as recent epidural neck injection performed by pain management with complication of what sounds like an epidural hematoma requiring emergent surgery at [facility]. This was performed 10 days ago. [...] assist her. She has been wearing a [place] collar as well. This morning her [...] she did not take her morning medications. [facility] Medical History Wears hearing aid [...] cardioversion CLARISSE (obstructive sleep apnea) Mixed hyperlipidemia emt intermediate current use of 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 drug Pulmonary hypertension Chronic cholecystitis with calculus Paroxysmal atrial fibrillation Essential (primary) hypertension Esophageal hiatal hernia 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, left prison current use of anticoagulant Atrial flutter GERD [...] post l (more content not included)... Normal [facility] Erythrocyte Sed Rateon 07-19 SED RATE 5 mm/hr Normal 0-30 [facility] Comment on above: Performed By: #### L 500.2500, L100.0100, L501.4020 #### [facility] [address] [place], [address] H AND P Exam - Hospitaliston 07-19-2024 H&P Exam - Hospitalist [facility] Medical Records Department [address] [place] [address] H P Exam - Hospitalist 07/19/24 1742 MR#: [id number] Acct: [id number] Name: RUBEN LOBO Rep #: [id number] : 1945 79 From: Mady Ricardo MD PCP: Dr. Rip De La Garza MD Status:ADM IN Location: [facility] WI513-8 HPI - General General Date of Admission: [...] hematoma. She had to go to [facility] emergently for evacuation of the hematoma [...] in the ED were BP of 122/85, ND of 90, RR of 18 and temp [...] the findings with the spine surgeon at [facility] who did no think patient needed to be transferred there and didnt think her symptoms were due to the surgery. She is therefore being admitted to be managed for debility due to intractable back pain and UTI. [facility] Medical History Wears hearing aid Arthritis Restless [...] cardioversion CLARISSE (obstructive sleep apnea) Mixed hyperlipidemia prison current use of 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 drug Pulmonary hypertension Chronic cholecystitis with calculus Paroxysmal atrial fibrillation Essential (primary) hypertension Esophageal hiatal hernia 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, left prison current use of anticoagulant Atrial flutter GERD [...] of car (more content not included)... Normal [facility] L501.4020on 07-19-2024 TROPONIN-I HS 14 pg/mL Normal 3.0-54.0 [facility] Comment on above: Order Comment: 'TROP ' Serial specimen #1, #2 or #3: 1 Result Comment: Kendra abrams Note: New Test Units and Gender Specific Reference Ranges. For more information see Policy Stat Procedure [place] High Sensitivity Troponin (TNIH) and attachments. Performed By: #### L 500.2500, L100.0100, L501.4020 #### [facility] [address] [place], [address] Lactic Acidon 07-19-2024 Lactate [Moles/Vol] 1.1 mmol/L Normal 0.4-1.9 [facility] Comment on above: Performed By: #### L 503.6005 #### [facility] [address] [place], [address] Lactate [Moles/Vol] 2.4 mmol/L Invalid Interpretation Code 0.4-1.9 [facility] Comment on above: Order Comment: Y Result Comment: Crit ical Result(s) Called at: 11:44:21 07/19/2024 by: Linda De Leon. Results read back by same. Performed By: #### L 503.6005 ####[facility] [address] [place], [address] Spine Cervical without Contr ason 07-19-2024 Spine Cervical without Contras [facility] Imaging Services [address] [place] [address] Spine Cervical without Contras MR#: [id number] Acct: [id number] Name: RUBEN LOBO Rep #: [id number] : 1945 F 79 From: Smith Wood MD PCP: Dr. Rip De La Garza MD Status: REG ER Study: Spine Cervical without Contras Date of Exam: 0 07/19/24 Exam# [id number] Ordering Dr: Dana Casarez DO [id number] EXAM: CT CERVICAL SPINE WITHOUT INTRAVENOUS CONTRAST [...] 15:03 EDT Reading Location ID and State: [facility] / [place] , Service support , CC: Dr. Dana Casarez DO; Dr. Rip De La Garza MD [employer] Detail: Signed Normal [facility] Spine Thoracic without Contr ason 07-19-2024 Spine Thoracic without Contras [facility] Imaging Services [address] [place] [address] [id number] Spine Thoracic without Contras MR#: [id number] Acct: [id number] Name: RUBEN LOBO Rep #: [id number] : 1945 F 79 From: Smith Wood MD PCP: Dr. Rip De La Garza MD Status: REG ER Study: Spine Thoracic without Contras Date of Exam: 0 07/19/24 Exam# [id number] Ordering Dr: Dana Casarez DO [id number] STUDY: CT THORACIC SPINE WITHOUT CONTRAST REASON [...] DO; Dr. Rip De La Garza MD [employer] Detail: Signed Normal [facility] Urinalysis, Completeon 07-19 AMORPHOUS 1+ Normal [facility] Comment on above: Order Comment: COLOR OF URINE MAY AFFECT DIPSTICK RESULTS.CRATE ICER TO SPECIFY Performed By: #### L 400.0001 ####[facility] [address] [place], [address] BACTERIA 3+ /hpf Normal None Seen [facility] Comment on above: Order Comment: COLOR OF URINE MAY AFFECT DIPSTICK RESULTS.CRATE ICER TO SPECIFY Performed By: #### L 400.0001 ####[facility] [address] [place], [address] CAST,HYALINE 50-100 SEEN Normal 0-5 [facility] Comment on above: Order Comment: COLOR OF URINE MAY AFFECT DIPSTICK RESULTS.CRATE ICER TO SPECIFY Performed By: #### L 400.0001 ####[facility] [address] [place], [address] EPI,SQUAMOUS 5-10 SEEN Normal 5-10 [facility] Comment on above: Order Comment: COLOR OF URINE MAY AFFECT DIPSTICK RESULTS.CRATE ICER TO SPECIFY Performed By: #### L 400.0001 ####[facility] [address] [place], [address] Mucus Ql (Urine sed) 4+ /hpf Normal [facility] Comment on above: Order Comment: COLOR OF URINE MAY AFFECT DIPSTICK RESULTS.CRATE ICER TO SPECIFY Performed By: #### L 400.0001 ####[facility] [address] [place], [address] WBC 0-5 SEEN Normal 0-5 [facility] Comment on above: Order Comment: COLOR OF URINE MAY AFFECT DIPSTICK RESULTS.CRATE ICER TO SPECIFY Performed By: #### L 400.0001 ####[facility] [address] [place], [address] RBC 0 SEEN Normal 0-5 [facility] Comment on above: Order Comment: COLOR OF URINE MAY AFFECT DIPSTICK RESULTS.CRATE ICER TO SPECIFY Performed By: #### L 400.0001 ####[facility] [address] [place], [address] CNCOon 07-14-2024 CNCO Letter Text Normal [facility] CNPCate 07-14-2024 CNPN Telephone (HCSIND) RUBEN LOBO ([id number]) 1945 F Date Time Provider Department 07/14/24 [facility] During your visit today, we recorded the following information about you: Nasrin Lezama LPN 07/14/2024 11:09 AM Signed Date/Time: 07/14/2024 11:07 AM Spoke with Ruben @ phone #: [phone] - Preferred # for contact: [phone] Have you received help from a home care company in the last 60 days? No Are you agreeable to [facility] services? Yes What address will we be seeing you at? [address] [place] [id number] Do you have any upcoming appointments or [...] Encounter Status:Closed by NAS[facility]IN [facility]14[facility] HNO [facility]: [id number] Author: HECTOR HAAS MD Service: Hospital Medicine [...] on hold. Neurosurgery has recommended to continue [place] collar and to hold Eliquis till [...] Health Modification to Baseline: Discharge Checklist: Has Chemical Laboratory Scientist been notified of pending discharge today: Yes Medications reconciled: Yes Follow-up appointment orders placed: Yes Does the patient have a PICC line or central line: No Discharge medications reviewed: Yes Meds to Beds used: Yes General: AOX3. No acute distress. Well developed, hydrated and nourished. Head: [place] collar Neck: The neck is supple [...] MR 5B MED/SURG Home Health Care Agency [facility] Start of Care [...] Disposition - Home I have performed the euvc-xj-dfnz and relevant services for a total of >30 minutes. SIGNATURE: Hector Haas MD DATE: July 13, 2024 TIME: 10:13 (more content not included)... [facility]20[facility]UB[facility] ([id number]) 1945 F Date Time Provider Department 07/13/24 [...] Status:Closed by FLAVIA DAWSON on 07/13/24 Normal [facility] THERAPY NTon 07-13-2024 THERAPY NT HNO ID: [id number] Author: MICHAEL AMIN PT DPT Service: Physical Therapy Author Type: Tax Form Preparer Type: Therapy (PT/OT/Speech/Resp) Filed: 07/13/2024 15:31 Note Text: Attestation signed by Michael Amin PT DPT at 07/13/2024 3:31 PM I reviewed and agree with the documentation corresponding to this therapy visit. SIGNATURE: Michael Amin PT DPT DATE: July 13, 2024 TIME: 3:30 PM Physical Therapy Treatment Summary SERVICE DATE: 07/13/2024 SERVICE TIME: 853 to 932 ROOM: [id number] PT 6 Clicks Score: 21 Total Joint [...] Chair PRIOR FUNCTIONAL LEVEL Within Functional Limits RESPITE COORDINATOR reports independent self care and homemanagement w/o device for mobility. She sometimes has to assist husb w/ his self care but he can usually take care of himself. She does the driving. SUBJECTIVE per pt will have FFSU. Voiced concern w/ and his issues, stated FANTA viera w/ her sons. THERAPY DIAGNOSIS Reduced mobility-other TREATMENT INTERVENTIONS Therapeutic Exercise (73026), Gait Training (89093), Therapeutic Activity (79696) Timed Code Treatment (minutes): 39 Skilled Treatment [...] ww during turning. No LOB, no dizziness, daneil LE buckling. vc to not to attempt [...] NAME: Arline (more content not included)... Normal [facility] Basic metabolic 2000 panelon 07-12-2024 Anion gap [Moles/Vol] mmol/L Low 5-16 [facility] Comment on above: Order Comment: Speci men Type: BLOOD SPECIMEN Ordering Facility: [facility] Address: [address] [place] [address] Performed By: #### 2 4323-8, 2276-4, 25521-8, 2777-1, 61932-2, 85708-2 #### [facility] CLIA [id number] [address] [place], [place] [id number] [place] Calcium [Mass/Vol] 9.2 mg/dL Normal 8.5-10.5 [facility] Comment on above: Order Comment: Speci men Type: BLOOD SPECIMEN Ordering Facility: [facility] Address: [address] [place] [address] Performed By: #### 2 4323-8, 2276-4, 11972-4, 2777-1, 08997-1, 73696-5 #### [facility] CLIA [id number] [address] [place], [place] [id number] [place] JOHN Chloride [Moles/Vol] 104 mmol/L Normal 98-107 [facility] Comment on above: Order Comment: Speci men Type: BLOOD SPECIMEN Ordering Facility: [facility] Address: [address] [place] [place] [address] Performed By: #### 2 4323-8, 2276-4, 99045-0, 2777-1, 90585-0, 14320-5 #### [facility] CLIA [id number] [address] [place], [place] [address] [place] CO2 [Moles/Vol] 32 mmol/L Normal 21-32 [facility] Comment on above: Order Comment: Speci men Type: BLOOD SPECIMEN Ordering Facility: [facility] Address: [address] [place] [address] Performed By: #### 2 4323-8, 2276-4, 84231-1, 2777-1, 40305-2, 46443-4 #### [facility] CLIA [id number] [address] [place], [place] [address] [place] Creatinine [Mass/Vol] 0.49 mg/dL Low 0.51-0.95 [facility] Comment on above: Order Comment: Speci men Type: BLOOD SPECIMEN Ordering Facility: [facility] Address: [address] [place] [address] Result Comment: Huma ents receiving either N-Acetylcysteine (NAC) or Metamizole prior to venipuncture, may have falsely depressed results. Performed By: #### 2 4323-8, 2276-4, 56576-8, 2777-1, 53398-9, 00708-5 #### [facility] CLIA [id number] [address] [place], [place] [address] [place] Creatinine and Glomerular filtration rate.predicted panel (S/P/Bld) 96 mL/min/1.73m??? Normal >=60 [facility] Comment on above: Order Comment: Magalie lorenzo Type: BLOOD SPECIMEN Ordering Facility: [facility] Address: [address] [place] [address] Result Comment: Diana mated Glomerular Filtration Rate [...] GFR. Performed By: #### 2 4323-8, 2276-4, 09938-0, 2777-1, 53595-1, 50418-3 #### [facility] CLIA [id number] [address] [place], [place] [address] [place] Glucose [Mass/Vol] 178 mg/dL High 70-100 [facility] Comment on above: Order Comment: Magalie lorenzo Type: BLOOD SPECIMEN Ordering Facility: [facility] Address: [address] [place] [address] Result Comment: The [place] Diabetes Association (ADA) provides guidance for cutoff [...] Standards of Medical Care in Diabetes 2016, [place] Diabetes Association. Diabetes Care. 2016.39(Suppl 1). Results may be falsely elevated after the administration of Sulfapyridine. Results may be falsely depressed after the administration of Sulfasalazine. Performed By: #### 2 4323-8, 6-4, 54160-8, 2776-1, 20203-2, 26150-5 #### [facility] CLIA [id number] [address] [place], [place] [address] [place] Potassium [Moles/Vol] 4.1 mmol/L Normal 3.5-5.1 [facility] Comment on above: Order Comment: Speci men Type: BLOOD SPECIMEN Ordering Facility: [facility] Address: [address] [place] [address] Performed By: #### 2 4323-8, 2275-4, 60930-2, 2776-, 14052-1, 00846-5 #### [facility] CLIA [id number] [address] [place] [address] [place] Sodium [Moles/Vol] 138 mmol/L Normal 136-145 [facility] Comment on above: Order Comment: Speci men Type: BLOOD SPECIMEN Ordering Facility: [facility] Address: [address] [place] [address] Performed By: #### 2 4323-8, 2275-4, 04581-2, 2776-1, 34606-8, 23587-2 #### [facility] CLIA [id number] [address] [place] [address] [place] Urea nitrogen [Mass/Vol] 14 mg/dL Normal 7-26 [facility] Comment on above: Order Comment: Speci men Type: BLOOD SPECIMEN Ordering Facility: [facility] Address: [address] [place] [address] Performed By: #### 2 4323-8, 2275-4, 74890-1, 2776-1, 91308-7, 91776-9 #### [facility] CLIA [id number] [address] [place], [place] [address] [place] CBC W Auto Differential pane l (Bld)on 07-12-2024 Basophils (Bld) [#/Vol] 10*3/uL Normal <0.11 [facility] Comment on above: Order Comment: Speci men Type: BLOOD SPECIMEN Ordering Facility: [facility] Address: [address] [place] [address] Performed By: #### 2 4323-8, 2276-4, 50752-1, 2777-1, 74069-9, 19171-3 #### [facility] CLIA [id number] [address] [place], [place] [address] [place] Basophils/100 WBC (Bld) 0.1 % Normal [facility] Comment on above: Order Comment: Speci men Type: BLOOD SPECIMEN Ordering Facility: [facility] Address: [address] [place] [address] Performed By: #### 2 4323-8, 2276-4, 61938-8, 2777-1, 49351-6, 28688-7 #### [facility] CLIA [id number] [address] [place] [address] [place] Differential cell count method Nom (Bld) Auto Normal [facility] Comment on above: Order Comment: Speci men Type: BLOOD SPECIMEN Ordering Facility: [facility] Address: [address] [place] [address] Performed By: #### 2 4323-8, 2276-4, 34543-3, 2777-1, 06881-5, 40810-8 #### [facility] CLIA [id number] [address] [place], [place] [address] [place] Eosinophils (Bld) [#/Vol] 10*3/uL Normal <0.46 [facility] Comment on above: Order Comment: Speci men Type: BLOOD SPECIMEN Ordering Facility: [facility] Address: [address] [place] [address] Performed By: #### 2 4323-8, 2276-4, 07807-2, 2777-1, 40250-3, 96015-5 #### [facility] CLIA [id number] [address] [place], [place] [address] [place] Eosinophils/100 WBC (Bld) 0.3 % Normal [facility] Comment on above: Order Comment: Speci men Type: BLOOD SPECIMEN Ordering Facility: [facility] Address: [address] [place] [address] Performed By: #### 2 4323-8, 6-4, 03353-2, 2777-1, 94565-3, 64230-2 #### [facility] CLIA [id number] [address] [place] [address] [place] Erythrocyte distribution width (RBC) [Ratio] 15.2 % High 11.5-15.0 [facility] Comment on above: Order Comment: Speci men Type: BLOOD SPECIMEN Ordering Facility: [facility] Address: [address] [place] [address] Performed By: #### 2 4323-8, 6-4, 73406-6, 2777-1, 62009-4, 74187-6 #### [facility] CLIA [id number] [address] [place] [address] [place] Hematocrit (Bld) [Volume fraction] 35.4 % Low 36.0-46.0 [facility] Comment on above: Order Comment: Speci men Type: BLOOD SPECIMEN Ordering Facility: [facility] Address: [address] [place] [address] Performed By: #### 2 4323-8, 6-4, 69091-3, 2777-1, 52251-1, 88169-5 #### [facility] CLIA [id number] [address] [place], [place] [address] [place] Hemoglobin (Bld) [Mass/Vol] 11.2 g/dL Low 11.5-15.5 [facility] Comment on above: Order Comment: Speci men Type: BLOOD SPECIMEN Ordering Facility: [facility] Address: [address] [place] [address] Performed By: #### 2 4323-8, 6-4, 53316-2, 2777-1, 10023-5, 87198-6 #### [facility] CLIA [id number] [address] [place] [address] [place] Immature granulocytes (Bld) [#/Vol] 0.05 10*3/uL Normal <0.10 [facility] Comment on above: Order Comment: Speci men Type: BLOOD SPECIMEN Ordering Facility: [facility] Address: [address] [place], [place] [address] Performed By: #### 2 4323-8, 6-4, 99279-6, 2777-1, 97181-6, 69762-1 #### [facility] CLIA [id number] [address] [place], [place] [address] [place] Immature granulocytes/100 WBC (Bld) 0.7 % Normal [facility] Comment on above: Order Comment: Speci men Type: BLOOD SPECIMEN Ordering Facility: [facility] Address: [address] [place] [address] Performed By: #### 2 4323-8, 6-4, 12392-7, 2777-1, 28622-9, 69600-5 #### [facility] CLIA [id number] [address] [place] [address] [place] Lymphocytes (Bld) [#/Vol] 0.87 10*3/uL Low 1.00-4.00 [facility] Comment on above: Order Comment: Speci men Type: BLOOD SPECIMEN Ordering Facility: [facility] Address: [address] [place], [place] [address] Performed By: #### 2 4323-8, 6-4, 04825-4, 2777-1, 84050-1, 74422-6 #### [facility] CLIA [id number] [address] [place], [place] [address] [place] Lymphocytes/100 WBC (Bld) 11.9 % Normal [facility] Comment on above: Order Comment: Speci men Type: BLOOD SPECIMEN Ordering Facility: [facility] Address: [address] [place] [address] Performed By: #### 2 4323-8, 6-4, 73515-1, 7-1, 90413-6, 85718-9 #### [facility] CLIA [id number] [address] [place], [place] [address] [place] MCH (RBC) [Entitic mass] 29.2 pg Normal 26.0-34.0 [facility] Comment on above: Order Comment: Speci men Type: BLOOD SPECIMEN Ordering Facility: [facility] Address: [address] [place] [address] Performed By: #### 2 4323-8, 6-4, 56790-5, 7-1, 28714-1, 66173-4 #### [facility] CLIA [id number] [address] [place] [address] [place] MCHC (RBC) [Mass/Vol] 31.6 g/dL Normal 30.5-36.0 [facility] Comment on above: Order Comment: Speci men Type: BLOOD SPECIMEN Ordering Facility: [facility] Address: [address] [place] [address] Performed By: #### 2 4323-8, 6-4, 65349-3, 7-1, 26146-7, 57717-6 #### [facility] CLIA [id number] [address] [place], [place] [address] [place] MCV (RBC) [Entitic vol] 92.2 fL Normal 80.0-100.0 [facility] Comment on above: Order Comment: Speci men Type: BLOOD SPECIMEN Ordering Facility: [facility] Address: [address] [place] [address] Performed By: #### 2 4323-8, 6-4, 28986-9, 2777-1, 30705-3, 34071-5 #### [facility] CLIA [id number] [address] [place] [address] [place] Monocytes (Bld) [#/Vol] 0.61 10*3/uL Normal <0.87 [facility] Comment on above: Order Comment: Speci men Type: BLOOD SPECIMEN Ordering Facility: [facility] Address: [address] [place], [place] [address] Performed By: #### 2 4323-8, 6-4, 39013-5, 7-1, 21844-6, 91456-4 #### [facility] CLIA [id number] [address] [place] [address] [place] Monocytes/100 WBC (Bld) 8.3 % Normal [facility] Comment on above: Order Comment: Speci men Type: BLOOD SPECIMEN Ordering Facility: [facility] Address: [address] [place], [place] [address] Performed By: #### 2 4323-8, 6-4, 98939-6, 7-1, 14444-0, 13932-0 #### [facility] CLIA [id number] [address] [place], [place] [address] [place] Neutrophils (Bld) [#/Vol] 5.75 10*3/uL Normal 1.45-7.50 [facility] Comment on above: Order Comment: Speci men Type: BLOOD SPECIMEN Ordering Facility: [facility] Address: [address] [place], [place] [address] Performed By: #### 2 4323-8, 6-4, 19645-0, 2777-1, 99891-1, 49432-0 #### [facility] CLIA [id number] [address] [place], [place] [address] [place] Neutrophils/100 WBC (Bld) 78.7 % Normal [facility] Comment on above: Order Comment: Speci men Type: BLOOD SPECIMEN Ordering Facility: [facility] Address: [address] [place], [place] [address] Performed By: #### 2 4323-8, 6-4, 61222-9, 7-1, 63410-7, 99001-6 #### [facility] CLIA [id number] [address] [place] [address] [place] Nucleated RBC (Bld) [#/Vol] 10*3/uL Normal <0.01 [facility] Comment on above: Order Comment: Speci men Type: BLOOD SPECIMEN Ordering Facility: [facility] Address: [address] [place] [address] Performed By: #### 2 4323-8, 2276-4, 61590-9, 2777-1, 70114-1, 05750-7 #### [facility] CLIA [id number] [address] [place], [place] [address] [place] Nucleated RBC/100 WBC (Bld) [Ratio] 0.0 /100 WBC Normal [facility] Comment on above: Order Comment: Speci men Type: BLOOD SPECIMEN Ordering Facility: [facility] Address: [address] [place] [address] Performed By: #### 2 4323-8, 6-4, 95640-1, 7-1, 79075-8, 63768-8 #### [facility] CLIA [id number] [address] [place], [place] [address] [place] Platelet mean volume (Bld) [Entitic vol] 11.3 fL Normal 9.0-12.7 [facility] Comment on above: Order Comment: Speci men Type: BLOOD SPECIMEN Ordering Facility: [facility] Address: [address] [place] [address] Performed By: #### 2 4323-8, 6-4, 55846-1, 7-1, 00214-4, 63410-3 #### [facility] CLIA [id number] [address] [place], [place] [address] [place] Platelets (Bld) [#/Vol] 92 10*3/uL Low 150-400 [facility] Comment on above: Order Comment: Speci men Type: BLOOD SPECIMEN Ordering Facility: [facility] Address: [address] [place] [address] Result Comment: No c lot detected. Performed By: #### 2 4323-8, 2276-4, 31253-9, 2777-1, 34528-0, 19503-7 #### [facility] CLIA [id number] [address] [place], [place] [address] [facility] OF [place] RBC (Bld) [#/Vol] 3.84 10*6/uL Low 3.90-5.20 [facility] Comment on above: Order Comment: Speci men Type: BLOOD SPECIMEN Ordering Facility: [facility] Address: [address] [place] [address] Performed By: #### 2 4323-8, 2276-4, 85555-3, 2777-1, 91952-1, 21732-1 #### [facility] CLIA [id number] [address] [place], [place] [address] [facility] [place] WBC (Bld) [#/Vol] 7.31 10*3/uL Normal 3.70-11.00 [facility] Comment on above: Order Comment: Speci men Type: BLOOD SPECIMEN Ordering Facility: [facility] Address: [address] [place] [address] Performed By: #### 2 4323-8, 2276-4, 09141-2, 2777-1, 75461-8, 87895-2 #### [facility] CLIA [id number] [address] [place], [place] [address] [facility] CONSULT PROGon 07-12-2024 CONSULT PROG HNO ID: [id number] Author: JUSTINO PALMER APRN.BUSINESS MANAGEMENT ASSOCIATE Service: Neurosurgery Author Type: Nurse Practitioner Type: [...] BID, ambulate, PT/OT, IS CANDDB Q1H Continue [place] J collar Will DC drain today Continue [...] follows commands, NAD, voice normal, speech clear, [place] J collar intact Eyes: PERRLA HEENT: normocephalic, [...] July 12, 2024 TIME: 9:20 AM Normal [facility] Magnesium SerPl-mCncon 07-12 Magnesium [Mass/Vol] 1.6 mg/dL Normal 1.6-2.6 [facility] Comment on above: Order Comment: Speci men Type: BLOOD SPECIMEN Ordering Facility: [facility] Address: [address] [place] [address] [place] [address] Performed By: #### 2 4323-8, 2276-4, 70711-1, 2777-1, 51795-5, 42140-0 #### [facility] CLIA [id number] [address] [place] [address] THERAPY NTon 07-12-2024 THERAPY NT HNO ID: [id number] Author: MICHAEL AMIN PT, DPT Service: Physical Therapy Author Type: Tax Form Preparer Type: Therapy (PT/OT/Speech/Resp) Filed: 07/12/2024 14:53 Note Text: Attestation signed by Michael Amin PT, DPT at 07/12/2024 2:53 PM I reviewed and agree with the documentation corresponding to this therapy visit. SIGNATURE: Michael Amin PT, DPT DATE: July 12, 2024 TIME: 2:53 PM Physical Therapy Treatment Summary SERVICE DATE: 07/12/2024 SERVICE TIME: 955 to 105 ROOM: WX-2P-100-02 PT 6 Clicks Score: 21 Total Joint [...] PRECAUTIONS Spine, Brace Gina horne, log roll, RPIYA CURRENT HOSPITAL COURSE cervical epidural steroid injection [...] Chair PRIOR FUNCTIONAL LEVEL Within Functional Limits RESPITE COORDINATOR reports independent self care and homemanagement w/o device for mobility. She sometimes has to assist husb w/ his self care but he can usually take care of himself. She does the driving. SUBJECTIVE Pt agreeable to therapy THERAPY DIAGNOSIS Reduced mobility-other TREATMENT INTERVENTIONS Therapeutic Activity (75560), Gait Training (43515) Timed Code Treatment (minutes): 57 Skilled Treatment [...] July 12, 2024 TIME: 11:11 AM Normal [facility] Basic metabolic 2000 panelon 07-11-2024 Anion gap [Moles/Vol] mmol/L Low 5-16 [facility] Comment on above: Order Comment: Speci men Type: BLOOD SPECIMEN Ordering Facility: [facility] Address: [address] [place], [place] [address] Performed By: #### 2 4323-8, 2276-4, 27758-6, 2777-1, 13108-5, 37024-2 #### [facility] CLIA [id number] [address] [place] [address] [place] Calcium [Mass/Vol] 9.3 mg/dL Normal 8.5-10.5 [facility] Comment on above: Order Comment: Speci men Type: BLOOD SPECIMEN Ordering Facility: [facility] Address: [address] [place] [address] Performed By: #### 2 4323-8, 2276-4, 01828-3, 2777-1, 72493-3, 68869-4 #### [facility] CLIA [id number] [address] [place] [address] [place] Chloride [Moles/Vol] 105 mmol/L Normal 98-107 [facility] Comment on above: Order Comment: Speci men Type: BLOOD SPECIMEN Ordering Facility: [facility] Address: [address] [place] [address] Performed By: #### 2 4323-8, 2276-4, 81674-9, 2777-1, 32404-9, 04580-1 #### [facility] CLIA [id number] [address] [place] [address] [place] CO2 [Moles/Vol] 32 mmol/L Normal 21-32 [facility] Comment on above: Order Comment: Speci men Type: BLOOD SPECIMEN Ordering Facility: [facility] Address: [address] [place] [address] Performed By: #### 2 4323-8, 6-4, 97568-9, 2777-1, 07584-9, 68041-8 #### [facility] CLIA [id number] [address] [place], [place] [address] [place] Creatinine [Mass/Vol] 0.62 mg/dL Normal 0.51-0.95 [facility] Comment on above: Order Comment: Speci men Type: BLOOD SPECIMEN Ordering Facility: [facility] Address: [address] [place] [address] Result Comment: Huma ents receiving either N-Acetylcysteine (NAC) or Metamizole prior to venipuncture, may have falsely depressed results. Performed By: #### 2 4323-8, 2276-4, 87022-0, 2777-1, 99050-3, 40205-7 #### [facility] CLIA [id number] [address] [place], [place] [address] [place] Creatinine and Glomerular filtration rate.predicted panel (S/P/Bld) 91 mL/min/1.73m??? Normal >=60 [facility] Comment on above: Order Comment: Speci men Type: BLOOD SPECIMEN Ordering Facility: [facility] Address: [address] [place] [address] Result Comment: Diana mated Glomerular Filtration Rate [...] GFR. Performed By: #### 2 4323-8, 2276-4, 66128-2, 2777-1, 70614-3, 33258-0 #### [facility] CLIA [id number] [address] [place], [place] [address] [place] Glucose [Mass/Vol] 136 mg/dL High 70-100 [facility] Comment on above: Order Comment: Speci men Type: BLOOD SPECIMEN Ordering Facility: [facility] Address: [address] [place] [address] Result Comment: The [place] [employer] (ADA) provides guidance for cutoff [...] Standards of Medical Care in Diabetes 2016, [place] [employer]. Diabetes Care. 2016.39(Suppl 1). Results may be falsely elevated after the administration of Sulfapyridine. Results may be falsely depressed after the administration of Sulfasalazine. Performed By: #### 2 4323-8, 2276-4, 16288-4, 7-1, 21975-8, 15103-2 #### [facility] CLIA [id number] [address] [place], [place] [address] [place] Potassium [Moles/Vol] 4.3 mmol/L Normal 3.5-5.1 [facility] Comment on above: Order Comment: Speci men Type: BLOOD SPECIMEN Ordering Facility: [facility] Address: [facility] [place] [address] Performed By: #### 2 4323-8, 6-4, 83996-4, 2777-1, 37055-3, 78850-0 #### [facility] CLIA [id number] [address] [place], [place] [address] [place] Sodium [Moles/Vol] 137 mmol/L Normal 136-145 [facility] Comment on above: Order Comment: Speci men Type: BLOOD SPECIMEN Ordering Facility: [facility] Address: [address] [place] [address] Performed By: #### 2 4323-8, 6-4, 44786-8, 7-1, 22555-1, 53221-3 #### [facility] CLIA [id number] [address] [place], [place] [address] [place] Urea nitrogen [Mass/Vol] 18 mg/dL Normal 7-26 [facility] Comment on above: Order Comment: Speci men Type: BLOOD SPECIMEN Ordering Facility: [facility] Address: [address] [place] [address] Performed By: #### 2 4323-8, 6-4, 70153-4, 7-1, 42185-6, 49752-4 #### [facility] CLIA [id number] [address] [place], [place] [address] [place] CBC W Auto Differential pane l (Bld)on 07-11-2024 Basophils (Bld) [#/Vol] 10*3/uL Normal <0.11 [facility] Comment on above: Order Comment: Speci men Type: BLOOD SPECIMEN Ordering Facility: [facility] Address: [address] [place] [address] Performed By: #### 2 4323-8, 6-4, 72946-5, 7-1, 32075-4, 23616-0 #### [facility] CLIA [id number] [address] [place] [id number] [place] Basophils/100 WBC (Bld) 0.1 % Normal [facility] Comment on above: Order Comment: Speci men Type: BLOOD SPECIMEN Ordering Facility: [facility] Address: [address] [place] [address] Performed By: #### 2 4323-8, 2276-4, 24405-3, 2777-1, 77932-5, 93678-4 #### [facility] CLIA [id number] [address] [place], [place] [id number] [place] Differential cell count method Nom (Bld) Auto Normal [facility] Comment on above: Order Comment: Speci men Type: BLOOD SPECIMEN Ordering Facility: [facility] Address: [address] [place] [address] Performed By: #### 2 4323-8, 2276-4, 78552-3, 2777-1, 83971-7, 44621-3 #### [facility] CLIA [id number] [address] [place], [place] [id number] [place] Eosinophils (Bld) [#/Vol] 10*3/uL Normal <0.46 [facility] Comment on above: Order Comment: Speci men Type: BLOOD SPECIMEN Ordering Facility: [facility] Address: [address] [place] [address] Performed By: #### 2 4323-8, 6-4, 26755-3, 2777-1, 53867-6, 57798-6 #### [facility] CLIA [id number] [address] [place], [place] [address] [place] Eosinophils/100 WBC (Bld) 0.0 % Normal [facility] Comment on above: Order Comment: Speci men Type: BLOOD SPECIMEN Ordering Facility: [facility] Address: [address] [place] [address] Performed By: #### 2 4323-8, 2276-4, 99693-5, 2777-1, 50732-8, 53542-1 #### [facility] CLIA [id number] [address] [place], [place] [address] [place] Erythrocyte distribution width (RBC) [Ratio] 15.7 % High 11.5-15.0 [facility] Comment on above: Order Comment: Speci men Type: BLOOD SPECIMEN Ordering Facility: [facility] Address: [address] [place] [address] Performed By: #### 2 4323-8, 6-4, 61063-6, 2777-1, 12532-7, 00276-1 #### [facility] CLIA [id number] [address] [place] [address] [place] Hematocrit (Bld) [Volume fraction] 35.5 % Low 36.0-46.0 [facility] Comment on above: Order Comment: Speci men Type: BLOOD SPECIMEN Ordering Facility: [facility] Address: [address] [place] [address] Performed By: #### 2 4323-8, 6-4, 49119-8, 7-1, 86400-7, 57978-8 #### [facility] CLIA [id number] [address] [place], [place] [address] [place] Hemoglobin (Bld) [Mass/Vol] 11.2 g/dL Low 11.5-15.5 [facility] Comment on above: Order Comment: Speci men Type: BLOOD SPECIMEN Ordering Facility: [facility] Address: [address] [place] [address] Performed By: #### 2 4323-8, 6-4, 34464-3, 2777-1, 87533-2, 98289-2 #### [facility] CLIA [id number] [address] [place], [place] [address] [place] Immature granulocytes (Bld) [#/Vol] 0.09 10*3/uL Normal <0.10 [facility] Comment on above: Order Comment: Speci men Type: BLOOD SPECIMEN Ordering Facility: [facility] Address: [address] [place] [address] Performed By: #### 2 4323-8, 6-4, 92052-6, 2777-1, 03946-5, 27800-9 #### [facility] CLIA [id number] [address] [place], [place] [address] [place] Immature granulocytes/100 WBC (Bld) 1.1 % Normal [facility] Comment on above: Order Comment: Speci men Type: BLOOD SPECIMEN Ordering Facility: [facility] Address: [address] [place] [address] Performed By: #### 2 4323-8, 6-4, 36434-8, 7-1, 34176-5, 08610-9 #### [facility] CLIA [id number] [address] [place] [address] [place] Lymphocytes (Bld) [#/Vol] 0.61 10*3/uL Low 1.00-4.00 [facility] Comment on above: Order Comment: Speci men Type: BLOOD SPECIMEN Ordering Facility: [facility] Address: [address] [place] [address] Performed By: #### 2 4323-8, 6-4, 06720-1, 2777-1, 20828-9, 24313-5 #### [facility] CLIA [id number] [address] [place], [place] [address] [place] Lymphocytes/100 WBC (Bld) 7.2 % Normal [facility] Comment on above: Order Comment: Speci men Type: BLOOD SPECIMEN Ordering Facility: [facility] Address: [address] [place] [address] Performed By: #### 2 4323-8, 6-4, 99717-2, 7-1, 94942-6, 88062-8 #### [facility] CLIA [id number] [address] [place], [place] [address] [place] MCH (RBC) [Entitic mass] 29.0 pg Normal 26.0-34.0 [facility] Comment on above: Order Comment: Speci men Type: BLOOD SPECIMEN Ordering Facility: [facility] Address: [address] [place] [address] Performed By: #### 2 4323-8, 6-4, 85453-7, 2777-1, 11026-0, 91006-3 #### [facility] CLIA [id number] [address] [place], [place] [address] [place] MCHC (RBC) [Mass/Vol] 31.5 g/dL Normal 30.5-36.0 [facility] Comment on above: Order Comment: Speci men Type: BLOOD SPECIMEN Ordering Facility: [facility] Address: [address] [place] [address] Performed By: #### 2 4323-8, 6-4, 42288-2, 2777-1, 52569-3, 81346-2 #### [facility] CLIA [id number] [address] [place], [place] [address] [place] MCV (RBC) [Entitic vol] 92.0 fL Normal 80.0-100.0 [facility] Comment on above: Order Comment: Speci men Type: BLOOD SPECIMEN Ordering Facility: [facility] Address: [address] [place] [address] Performed By: #### 2 4323-8, 6-4, 02898-9, 277-1, 51875-3, 26340-0 #### [facility] CLIA [id number] [address] [place] [address] [place] Monocytes (Bld) [#/Vol] 0.91 10*3/uL High <0.87 [facility] Comment on above: Order Comment: Speci men Type: BLOOD SPECIMEN Ordering Facility: [facility] Address: [address] [place] [address] Performed By: #### 2 4323-8, 6-4, 89059-0, 277-1, 94500-8, 39978-0 #### [facility] CLIA [id number] [address] [place] [address] [place] Monocytes/100 WBC (Bld) 10.7 % Normal [facility] Comment on above: Order Comment: Speci men Type: BLOOD SPECIMEN Ordering Facility: [facility] Address: [address] [place] [address] Performed By: #### 2 4323-8, 6-4, 52674-1, 2776-1, 42349-7, 92171-2 #### [facility] CLIA [id number] [address] [place] [address] [place] Neutrophils (Bld) [#/Vol] 6.85 10*3/uL Normal 1.45-7.50 [facility] Comment on above: Order Comment: Speci men Type: BLOOD SPECIMEN Ordering Facility: [facility] Address: [address] [place] [address] Performed By: #### 2 4323-8, 2275-4, 62226-2, 7-1, 25922-8, 57123-8 #### [facility] CLIA [id number] [address] [place], [place] [address] [place] Neutrophils/100 WBC (Bld) 80.9 % Normal [facility] Comment on above: Order Comment: Speci men Type: BLOOD SPECIMEN Ordering Facility: [facility] Address: [address] [place] [address] Performed By: #### 2 4323-8, 6-4, 52693-4, 7-1, 57664-9, 56489-0 #### [facility] CLIA [id number] [address] [place], [place] [address] [place] Nucleated RBC (Bld) [#/Vol] 10*3/uL Normal <0.01 [facility] Comment on above: Order Comment: Speci men Type: BLOOD SPECIMEN Ordering Facility: [facility] Address: [address] [place] [address] Performed By: #### 2 4323-8, 6-4, 97580-8, 7-1, 65191-9, 03870-6 #### [facility] CLIA [id number] [address] [place], [place] [address] [place] Nucleated RBC/100 WBC (Bld) [Ratio] 0.0 /100 WBC Normal [facility] Comment on above: Order Comment: Speci men Type: BLOOD SPECIMEN Ordering Facility: [facility] Address: [address] [place] [address] Performed By: #### 2 4323-8, 2276-4, 90517-2, 2777-1, 09118-9, 30644-7 #### [facility] CLIA [id number] [address] [place], [place] [address] [place] Platelet mean volume (Bld) [Entitic vol] 11.6 fL Normal 9.0-12.7 [facility] Comment on above: Order Comment: Speci men Type: BLOOD SPECIMEN Ordering Facility: [facility] Address: [address] [place] [address] Performed By: #### 2 4323-8, 6-4, 65906-0, 7-1, 86917-3, 89197-8 #### [facility] CLIA [id number] [address] [place] [address] [place] Platelets (Bld) [#/Vol] 96 10*3/uL Low 150-400 [facility] Comment on above: Order Comment: Speci men Type: BLOOD SPECIMEN Ordering Facility: [facility] Address: [address] [place] [address] Result Comment: No c lot detected. Performed By: #### 2 4323-8, 6-4, 21116-3, 7-1, 61831-0, 56967-8 #### [facility] CLIA [id number] [address] [place], [place] [address] [place] RBC (Bld) [#/Vol] 3.86 10*6/uL Low 3.90-5.20 [facility] Comment on above: Order Comment: Speci men Type: BLOOD SPECIMEN Ordering Facility: [facility] Address: [address] [place] [address] Performed By: #### 2 4323-8, 6-4, 75902-0, 7-1, 82753-3, 69540-9 #### [facility] CLIA [id number] [address] [id number] [place] WBC (Bld) [#/Vol] 8.47 10*3/uL Normal 3.70-11.00 [facility] Comment on above: Order Comment: Speci men Type: BLOOD SPECIMEN Ordering Facility: [facility] Address: [address] [place] [address] Performed By: #### 2 4323-8, 2276-4, 48068-1, 2777-1, 62218-4, 87494-6 #### [facility] CLIA [id number] [address] [id number] [facility] CONSULT PROGon 07-11-2024 CONSULT PROG HNO ID: [id number] Author: JUSTINO PALMER APRN.BUSINESS MANAGEMENT ASSOCIATE Service: Neurosurgery Author Type: Nurse Practitioner Type: [...] BID, ambulate, PT/OT, IS CANDDB Q1H Continue [place] collar Continue drain Continue ABX until [...] bedside. She is resting in bed with [place] collar intact. Pain controlled at this [...] follows commands, NAD, voice normal, speech clear, [place] collar intact Eyes: PERRLA HEENT: normocephalic, [...] P 1.8* 2.8 4.2 SIGNATURE: Justino Palmer APRN.BUSINESS MANAGEMENT ASSOCIATE DATE: July 11, 2024 TIME: 2:20 PM [facility] Calcium.ionized [Moles/Vol]o n 07-11-2024 Calcium.ionized (Bld) [Mass/Vol] 1.22 mmol/L Normal 1.08-1.30 [facility] Comment on above: Order Comment: Speci men Type: BLOOD SPECIMEN Ordering Facility: [facility] Address: [address] [place] [address] Performed By: #### 2 4323-8, 6-4, 48187-9, 2777-1, 36791-2, 13340-4 #### [facility] CLIA [id number] [address] [place] [address] [place] Calcium.ionized adjusted to pH 7.4 (Bld) [Moles/Vol] 1.19 mmol/L Normal 1.08-1.30 [facility] Comment on above: Order Comment: Speci men Type: BLOOD SPECIMEN Ordering Facility: [facility] Address: [address] [place] [address] Performed By: #### 2 4323-8, 6-4, 33659-6, 2777-1, 30477-2, 18172-3 #### [facility] CLIA [id number] [address] [place], [place] [address] [place] Magnesium SerPl-mCncon 07-11 Magnesium [Mass/Vol] 1.9 mg/dL Normal 1.6-2.6 [facility] Comment on above: Order Comment: Speci men Type: BLOOD SPECIMEN Ordering Facility: [facility] Address: [address] [place] [address] Performed By: #### 2 4323-8, 6-4, 45044-3, 2777-1, 40717-0, 49193-8 #### [facility] CLIA [id number] [address] [place], [place] [address] [place] Phosphate SerPl-mCncon 07-11 Phosphate [Mass/Vol] 1.8 mg/dL Low 2.5-4.9 [facility] Comment on above: Order Comment: Speci men Type: BLOOD SPECIMEN Ordering Facility: [facility] Address: [address] [place] [address] Result Comment: Elev ated m-protein (paraprotein) levels in the serum may be exhibited in patients with monoclonal gammopathies, causing falsely elevated inorganic phosphorus results. Performed By: #### 2 4323-8, 2276-4, 69036-9, 2777-1, 92434-9, 58201-3 #### [facility] CLIA [id number] [address] THERAPY NTon 07-11-2024 THERAPY NT HNO ID: [id number] Author: GIANLUCA AVILEZ, OTR/L Service: Occupational Therapy Author Type: Occupational Therapist Type: Therapy (PT/OT/Speech/Resp) Filed: 07/11/2024 12:31 Note Text: Occupational Therapy Evaluation Summary SERVICE DATE: 07/11/2024 SERVICE TIME: 45 to 1015 ROOM: OG-2Y-068-02 OT 6 Clicks Score: 15 DISCHARGE RECOMMENDATIONS [...] Chair PRIOR FUNCTIONAL LEVEL Within Functional Limits RESPITE COORDINATOR reports independent self care and homemanagement w/o [...] daily living (ADL) TREATMENT INTERVENTIONS Evaluation, Self Fpc Management (32862) Timed Code Treatment (minutes): 16 Skilled Treatment [...] Visit: Bat (more content not included)... Normal [facility] Basic metabolic 2000 panelon 07-10-2024 Anion gap [Moles/Vol] 4 mmol/L Low 5-16 [facility] Comment on above: Order Comment: Speci men Type: BLOOD SPECIMEN Ordering Facility: [facility] Address: [address] [place] [address] Performed By: #### 3 255-7, 58848-4, 09564-1 #### [facility] CLIA [id number] [address] [place] [address] [place] Calcium [Mass/Vol] 9.1 mg/dL Normal 8.5-10.5 [facility] Comment on above: Order Comment: Speci men Type: BLOOD SPECIMEN Ordering Facility: [facility] Address: [address] [place] [address] Performed By: #### 3 255-7, 76944-0, 65348-2 #### [facility] CLIA [id number] [address] [place] [address] [place] Chloride [Moles/Vol] 105 mmol/L Normal 98-107 [facility] Comment on above: Order Comment: Speci men Type: BLOOD SPECIMEN Ordering Facility: [facility] Address: [address] [place] [address] Performed By: #### 3 255-7, 69383-3, 73260-8 #### [facility] CLIA [id number] [address] [place] [address] [place] CO2 [Moles/Vol] 28 mmol/L Normal 21-32 [facility] Comment on above: Order Comment: Speci men Type: BLOOD SPECIMEN Ordering Facility: [facility] Address: [address] [place] [address] Performed By: #### 3 255-7, 41317-0, 54076-9 #### [facility] CLIA [id number] [address] [place] [address] [place] Creatinine [Mass/Vol] 0.51 mg/dL Normal 0.51-0.95 [facility] Comment on above: Order Comment: Magalie lorenzo Type: BLOOD SPECIMEN Ordering Facility: [facility] Address: [address] [facility] [place] [address] Result Comment: Huma ents receiving either N-Acetylcysteine (NAC) or Metamizole prior to venipuncture, may have falsely depressed results. Performed By: #### 3 255-7, 19185-2, 47623-0 #### [facility] CLIA [id number] [address] [place] [address] Creatinine and Glomerular filtration rate.predicted panel (S/P/Bld) 95 mL/min/1.73m??? Normal >=60 [facility] Comment on above: Order Comment: Magalie lorenzo Type: BLOOD SPECIMEN Ordering Facility: [facility] Address: [address] [place] [address] Result Comment: Diana mated Glomerular Filtration Rate [...] actual GFR. Performed By: #### 3 255-7, 18535-5, 30391-2 #### [facility] CLIA [id number] [address] [place] [address] [place] Glucose [Mass/Vol] 149 mg/dL High 70-100 [facility] Comment on above: Order Comment: Magalie lorenzo Type: BLOOD SPECIMEN Ordering Facility: [facility] Address: [address] [place] [address] Result Comment: The [place] [employer] (ADA) provides guidance for cutoff [...] Standards of Medical Care in Diabetes 2016, [place] [employer]. Diabetes Care. 2016.39(Suppl 1). Results may be falsely elevated after the administration of Sulfapyridine. Results may be falsely depressed after the administration of Sulfasalazine. Performed By: #### 3 255-7, 94037-1, 65344-7 #### [facility] CLIA [id number] [address] [place] [address] [place] Potassium [Moles/Vol] 4.2 mmol/L Normal 3.5-5.1 [facility] Comment on above: Order Comment: Magalie lorenzo Type: BLOOD SPECIMEN Ordering Facility: [facility] Address: [address] [place] [address] Performed By: #### 3 255-7, 12102-4, 36313-6 #### [facility] CLIA [id number] [address] [place] [address] [place] Sodium [Moles/Vol] 137 mmol/L Normal 136-145 [facility] Comment on above: Order Comment: Magalie lorenzo Type: BLOOD SPECIMEN Ordering Facility: [facility] Address: [address] [place] [address] Performed By: #### 3 255-7, 49256-0, 66746-7 #### [facility] CLIA [id number] [address] [place], [place] [address] [place] Urea nitrogen [Mass/Vol] 15 mg/dL Normal 7-26 [facility] Comment on above: Order Comment: Magalie lorenzo Type: BLOOD SPECIMEN Ordering Facility: [facility] Address: [address] [place] [address] Performed By: #### 3 255-7, 29186-8, 38504-8 #### [facility] CLIA [id number] [address] [place] [address] [place] CBC W Auto Differential pane l (Bld)on 07-10-2024 Basophils (Bld) [#/Vol] 10*3/uL Normal <0.11 [facility] Comment on above: Order Comment: Speci men Type: BLOOD SPECIMEN Ordering Facility: [facility] Address: [address] [place] [address] Performed By: #### 3 255-7, 74031-4, 30649-6 #### [facility] CLIA [id number] [address] [place] [address] [place] Basophils/100 WBC (Bld) 0.1 % Normal [facility] Comment on above: Order Comment: Speci men Type: BLOOD SPECIMEN Ordering Facility: [facility] Address: [address] [place] [address] Performed By: #### 3 255-7, 17084-4, 80549-9 #### [facility] CLIA [id number] [address] [place] [address] Differential cell count method Nom (Bld) Auto Normal [facility] Comment on above: Order Comment: Speci men Type: BLOOD SPECIMEN Ordering Facility: [facility] Address: [address] [place] [address] Performed By: #### 3 255-7, 37497-2, 98817-1 #### [facility] CLIA [id number] [address] [place] [address] [place] Eosinophils (Bld) [#/Vol] 10*3/uL Normal <0.46 [facility] Comment on above: Order Comment: Speci men Type: BLOOD SPECIMEN Ordering Facility: [facility] Address: [address] [place] [address] Performed By: #### 3 255-7, 75443-3, 19034-9 #### [facility] CLIA [id number] [address] [place] [address] [place] Eosinophils/100 WBC (Bld) 0.0 % Normal [facility] Comment on above: Order Comment: Speci men Type: BLOOD SPECIMEN Ordering Facility: [facility] Address: [address] [place] [address] Performed By: #### 3 255-7, 91912-5, 21980-2 #### [facility] CLIA [id number] [address] [place], [place] [address] [place] Erythrocyte distribution width (RBC) [Ratio] 15.2 % High 11.5-15.0 [facility] Comment on above: Order Comment: Speci men Type: BLOOD SPECIMEN Ordering Facility: [facility] Address: [address] [place] [address] Performed By: #### 3 255-7, 78362-2, 96103-7 #### [facility] CLIA [id number] [address] [place] [address] [place] Hematocrit (Bld) [Volume fraction] 36.0 % Normal 36.0-46.0 [facility] Comment on above: Order Comment: Speci men Type: BLOOD SPECIMEN Ordering Facility: [facility] Address: [address] [place] [address] Performed By: #### 3 255-7, 72236-9, 31679-9 #### [facility] CLIA [id number] [address] [place] [address] [place] Hemoglobin (Bld) [Mass/Vol] 11.7 g/dL Normal 11.5-15.5 [facility] Comment on above: Order Comment: Speci men Type: BLOOD SPECIMEN Ordering Facility: [facility] Address: [address] [place] [address] Performed By: #### 3 255-7, 10875-8, 83771-9 #### [facility] CLIA [id number] [address] [place] [address] [place] Immature granulocytes (Bld) [#/Vol] 0.10 10*3/uL High <0.10 [facility] Comment on above: Order Comment: Speci men Type: BLOOD SPECIMEN Ordering Facility: [facility] Address: [address] [place] [address] Performed By: #### 3 255-7, 04773-4, 90922-4 #### [facility] CLIA [id number] [address] [place] [address] [place] Immature granulocytes/100 WBC (Bld) 0.8 % Normal [facility] Comment on above: Order Comment: Speci men Type: BLOOD SPECIMEN Ordering Facility: [facility] Address: [address] [place] [address] Performed By: #### 3 255-7, 73962-0, 87048-1 #### [facility] CLIA [id number] [address] [place] [address] [place] Lymphocytes (Bld) [#/Vol] 0.46 10*3/uL Low 1.00-4.00 [facility] Comment on above: Order Comment: Speci men Type: BLOOD SPECIMEN Ordering Facility: [facility] Address: [address] [place] [address] Performed By: #### 3 255-7, 31244-7, 10406-5 #### [facility] CLIA [id number] [address] [place] [address] [place] Lymphocytes/100 WBC (Bld) 3.5 % Normal [facility] Comment on above: Order Comment: Speci men Type: BLOOD SPECIMEN Ordering Facility: [facility] Address: [address] [place] [address] Performed By: #### 3 255-7, 31891-0, 72430-0 #### [facility] CLIA [id number] [address] [place] [address] [place] MCH (RBC) [Entitic mass] 29.0 pg Normal 26.0-34.0 [facility] Comment on above: Order Comment: Speci men Type: BLOOD SPECIMEN Ordering Facility: [facility] Address: [address] [place] [address] Performed By: #### 3 255-7, 98677-0, 12644-2 #### [facility] CLIA [id number] [address] [place] [address] [place] MCHC (RBC) [Mass/Vol] 32.5 g/dL Normal 30.5-36.0 [facility] Comment on above: Order Comment: Speci men Type: BLOOD SPECIMEN Ordering Facility: [facility] Address: [address] [place] [address] Performed By: #### 3 255-7, 90880-7, 76937-2 #### [facility] CLIA [id number] [address] [place], [place] [id number] [place] MCV (RBC) [Entitic vol] 89.3 fL Normal 80.0-100.0 [facility] Comment on above: Order Comment: Speci men Type: BLOOD SPECIMEN Ordering Facility: [facility] Address: [address] [place] [address] Performed By: #### 3 255-7, 04196-7, 07993-2 #### [facility] CLIA [id number] [address] [place] [address] [place] Monocytes (Bld) [#/Vol] 0.90 10*3/uL High <0.87 [facility] Comment on above: Order Comment: Speci men Type: BLOOD SPECIMEN [facility] [facility] Address: [address] [place] [address] Performed By: #### 3 255-7, 57241-5, 10573-3 #### [facility] CLIA [id number] [address] [place] [address] [place] Monocytes/100 WBC (Bld) 6.8 % Normal [facility] Comment on above: Order Comment: Speci men Type: BLOOD SPECIMEN Ordering Facility: [facility] Address: [address] [place] [address] Performed By: #### 3 255-7, 07437-0, 85937-6 #### [facility] CLIA [id number] [address] [place], [place] [address] [place] Neutrophils (Bld) [#/Vol] 11.82 10*3/uL High 1.45-7.50 [facility] Comment on above: Order Comment: Speci men Type: BLOOD SPECIMEN Ordering Facility: [facility] Address: [address] [place] [address] Performed By: #### 3 255-7, 18996-6, 36587-2 #### [facility] CLIA [id number] [address] [place] [address] [place] Neutrophils/100 WBC (Bld) 88.8 % Normal [facility] Comment on above: Order Comment: Speci men Type: BLOOD SPECIMEN Ordering Facility: [facility] Address: [address] [place] [address] Performed By: #### 3 255-7, 57219-3, 40970-3 #### [facility] CLIA [id number] [address] [place] [address] [place] Nucleated RBC (Bld) [#/Vol] 10*3/uL Normal <0.01 [facility] Comment on above: Order Comment: Speci men Type: BLOOD SPECIMEN Ordering Facility: [facility] Address: [address] [place] [address] Performed By: #### 3 255-7, 37543-5, 20434-2 #### [facility] CLIA [id number] [address] [place] [address] [place] Nucleated RBC/100 WBC (Bld) [Ratio] 0.0 /100 WBC Normal [facility] Comment on above: Order Comment: Speci men Type: BLOOD SPECIMEN Ordering Facility: [facility] Address: [address] [place] [address] Performed By: #### 3 255-7, 09185-5, 30694-0 #### [facility] CLIA [id number] [address] [place] [address] [place] Platelet mean volume (Bld) [Entitic vol] 11.5 fL Normal 9.0-12.7 [facility] Comment on above: Order Comment: Speci men Type: BLOOD SPECIMEN Ordering Facility: [facility] Address: [address] [place] [address] Performed By: #### 3 255-7, 71074-8, 86929-8 #### [facility] CLIA [id number] [address] [place] [address] [place] Platelets (Bld) [#/Vol] 95 10*3/uL Low 150-400 [facility] Comment on above: Order Comment: Speci men Type: BLOOD SPECIMEN Ordering Facility: [facility] Address: [address] [place] [address] Result Comment: No c lot detected. Performed By: #### 3 255-7, 06667-8, 23463-8 #### [facility] CLIA [id number] [address] [place], [place] [address] [place] RBC (Bld) [#/Vol] 4.03 10*6/uL Normal 3.90-5.20 [facility] Comment on above: Order Comment: Speci men Type: BLOOD SPECIMEN Ordering Facility: [facility] Address: [address] [place] [address] Performed By: #### 3 255-7, 59779-4, 21639-0 #### [facility] CLIA [id number] [address] [place], [place] [address] [place] WBC (Bld) [#/Vol] 13.29 10*3/uL High 3.70-11.00 [facility] Comment on above: Order Comment: Speci men Type: BLOOD SPECIMEN Ordering Facility: [facility] Address: [address] [place] [address] Performed By: #### 3 255-7, 67910-7, 43362-9 #### [facility] CLIA [id number] [address] [place] [address] [facility] [place] CONSULT PROGon 07-10-2024 CONSULT PROG HNO ID: [id number] Author: JUSTINO PALMER APRN.BUSINESS MANAGEMENT ASSOCIATE Service: Neurosurgery Author Type: Nurse Practitioner Type: [...] BID, ambulate, PT/OT, IS CANDDB Q1H Continue [place] J collar Continue drain Continue ABX until [...] 23 99 % (more content not included)... [facility] Calcium.ionized [Moles/Vol]o n 07-10-2024 Calcium.ionized (Bld) [Mass/Vol] 1.15 mmol/L Normal 1.08-1.30 [facility] Comment on above: Order Comment: Magalie lorenzo Type: BLOOD SPECIMEN Ordering Facility: [facility] Address: [address] [place] [address] Performed By: #### 3 255-7, 11290-1, 36995-5 #### [facility] CLIA [id number] [address] [place] [address] [place] Calcium.ionized adjusted to pH 7.4 (Bld) [Moles/Vol] 1.11 mmol/L Normal 1.08-1.30 [facility] Comment on above: Order Comment: Magalie lorenzo Type: BLOOD SPECIMEN Ordering Facility: [facility] Address: [address] [place] [address] Performed By: #### 3 255-7, 83266-7, 89328-2 #### [facility] CLIA [id number] [address] [place] [address] [place] Magnesium SerPl-mCncon 07-10 Magnesium [Mass/Vol] 2.1 mg/dL Normal 1.6-2.6 [facility] Comment on above: Order Comment: Magalie lorenzo Type: BLOOD SPECIMEN Ordering Facility: [facility] Address: [address] [place] [address] Performed By: #### 3 255-7, 51236-2, 95496-6 #### [facility] CLIA [id number] [address] [place], [place] [address] [place] NURSING PROGon 07-10-2024 NURSING PROG HNO ID: [id number] Author: MUSA OSEI, RN Service: Nursing Author Type: Registered Nurse Type: Nursing Progress Note Filed: 07/10/2024 12:45 Note Text: Report called to 5b; all questions addressed. All belongings sent with patient, family present. Normal [facility] Phosphate SerPl-mCncon 07-10 Phosphate [Mass/Vol] 2.8 mg/dL Normal 2.5-4.9 [facility] Comment on above: Order Comment: Speci men Type: BLOOD SPECIMEN Ordering Facility: [facility] Address: [address] [place] [address] Result Comment: Elev ated m-protein (paraprotein) levels in the serum may be exhibited in patients with monoclonal gammopathies, causing falsely elevated inorganic phosphorus results. Performed By: #### 3 255-7, 51910-7, 46261-9 #### [facility] CLIA [id number] [facility] [address] THERAPY NTon 07-10-2024 THERAPY NT HNO ID: [id number] Author: FLAVIA BAUMAN, PT, DPT Service: Physical Therapy Author Type: Physical Therapist Type: Therapy (PT/OT/Speech/Resp) Filed: 07/10/2024 14:42 Note Text: Physical Therapy Evaluation Summary SERVICE DATE: 07/10/2024 SERVICE TIME: 1351 to 1430 ROOM: [place] [address] PT 6 Clicks Score: 11 Total Joint [...] Wheeled PRIOR FUNCTIONAL LEVEL Within Functional Limits RESPITE COORDINATOR denies use of AD. Falls noted due to hard to get up- requring intermittent assistance to achieve stand SUBJECTIVE THERAPY DIAGNOSIS Reduced mobility-other TREATMENT INTERVENTIONS Evaluation, Therapeutic Activity (10391) Timed Code Treatment (minutes): 24 Skilled Treatment [...] DATE: July 10, 2024 TIME: 2:42 PM [facility] THERAPY NT HNO ID: [id number] Author: FLAVIA BAUMAN PT, DPT Service: Physical Therapy Author Type: Physical Therapist Type: Therapy (PT/OT/Speech/Resp) Filed: 07/10/2024 08:15 Note Text: PHYSICAL THERAPY MISSED VISIT SERVICE DATE: 07/10/2024 SERVICE TIME: ROOM: [facility]-23 Patient not seen due to Clinical Appropriateness (Pt with BR orders). SIGNATURE: Flavia Bauman PT, DPT PATIENT NAME: Ruben Lobo DATE: July 10, 2024 TIME: 8:15 AM [facility] THERAPY NT HNO ID: [id number] Author: TODD COLON OTR/Xochitl Service: ? Author [...] DATE: July 10, 2024 TIME: 8:06 AM [facility] ANES POSTPROC EVALon 024 ANES POSTPROC EVAL HNO ID: [id number] Author: JONO LEBLANC MD Service: Anesthesiology Author [...] July 09, 2024 TIME: 4:03 PM CSN: [id number] [facility] ANES PRE-OPon 08-29-2024 ANES PRE-OP HNO ID: [id number] Author: JONO LEBLANC MD Service: Anesthesiology Author [...] and consent discussed: yes. Patient / Responsible [employer] agrees to proceed: yes Patient / Surrogate [...] July 09, 2024 TIME: 10:29 AM CSN: [id number] [facility] BLOOD BANK COMMENTon 024 BLOOD BANK COMMENT See Comment [facility] Comment on above: Order Comment: Speci men Type: BLOOD SPECIMEN Ordering Facility: [facility] Address: [address] [place] [address] Result Comment: CONA YANA sample requested from :[facility] 07/09/24 02:33 SE Performed By: #### 3 255-7, 62532-3, 24501-2 #### [facility] CLIA [id number] [address] [place] [address] OF [facility] BRIEF OP NOTon 07-09-2024 BRIEF OP NOT HNO ID: [id number] Author: ABDULAZIZ BANEGAS MD Service: Neurosurgery Author Type: Physician Type: Brief Op Note Filed: 07/09/2024 13:03 Note Text: BRIEF OPERATIVE / PROCEDURE NOTE LOG ID: [id number] SURGERY/PROCEDURE DATE: 07/09/2024 INCISION/PROCEDURE START TIME: 11:51 AM INCISION CLOSE/PROCEDURE END TIME: 1:01 PM SURGEON(S)/PROCEDURA LIST(S) AND CIRCULAR RIPSAW OPERATOR(S): Surgeons and Role: * Abdulaziz aBnegas MD - Primary Contact Lens Edge Buffer: Jese Maravilla SA SURGERY/PROCEDURE(S) : T1-5 laminectomy/evac [...] July 09, 2024 TIME: 1:01 PM Normal [facility] CBC panel Auto (Bld)on 07-09 Erythrocyte distribution width (RBC) [Ratio] 15.0 % Normal 11.5-15.0 [facility] Comment on above: Order Comment: Speci men Type: BLOOD SPECIMEN Ordering Facility: [facility] Address: [address] [place] [address] Performed By: #### 3 255-7, 83452-6, 85621-5 #### [facility] CLIA [id number] [address] [place] [address] [place] Hematocrit (Bld) [Volume fraction] 40.5 % Normal 36.0-46.0 [facility] Comment on above: Order Comment: Speci men Type: BLOOD SPECIMEN Ordering Facility: [facility] Address: [address] [place] [address] Performed By: #### 3 255-7, 11150-6, 57029-3 #### [facility] CLIA [id number] [address] [place] [address] [place] Hemoglobin (Bld) [Mass/Vol] 12.9 g/dL Normal 11.5-15.5 [facility] Comment on above: Order Comment: Speci men Type: BLOOD SPECIMEN Ordering Facility: [facility] Address: [address] [place] [address] Performed By: #### 3 255-7, 83530-4, 08473-1 #### [facility] CLIA [id number] [address] [place] [address] [place] MCH (RBC) [Entitic mass] 28.4 pg Normal 26.0-34.0 [facility] Comment on above: Order Comment: Speci men Type: BLOOD SPECIMEN Ordering Facility: [facility] Address: [address] [place] [address] Performed By: #### 3 255-7, 45492-1, 24047-8 #### [facility] CLIA [id number] [address] [place], [place] [address] [place] MCHC (RBC) [Mass/Vol] 31.9 g/dL Normal 30.5-36.0 [facility] Comment on above: Order Comment: Speci men Type: BLOOD SPECIMEN Ordering Facility: [facility] Address: [address] [place] [address] Performed By: #### 3 255-7, 28089-4, 61173-3 #### [facility] CLIA [id number] [address] [place] [address] [place] MCV (RBC) [Entitic vol] 89.0 fL Normal 80.0-100.0 [facility] Comment on above: Order Comment: Speci men Type: BLOOD SPECIMEN Ordering Facility: [facility] Address: [address] [place] [address] Performed By: #### 3 255-7, 29360-1, 57680-5 #### [facility] CLIA [id number] [address] [place] [address] [place] Nucleated RBC (Bld) [#/Vol] 10*3/uL Normal <0.01 [facility] Comment on above: Order Comment: Speci men Type: BLOOD SPECIMEN Ordering Facility: [facility] Address: [address] [place] [address] Performed By: #### 3 255-7, 67575-0, 96526-1 #### [facility] CLIA [id number] [address] [place], [place] [address] [place] Platelet mean volume (Bld) [Entitic vol] 11.9 fL Normal 9.0-12.7 [facility] Comment on above: Order Comment: Speci men Type: BLOOD SPECIMEN Ordering Facility: [facility] Address: [address] [place] [address] Performed By: #### 3 255-7, 67397-0, 77432-6 #### [facility] CLIA [id number] [address] [place], [place] [address] [place] Platelets (Bld) [#/Vol] 105 10*3/uL Low 150-400 [facility] Comment on above: Order Comment: Speci men Type: BLOOD SPECIMEN Ordering Facility: [facility] Address: [address] [place] [address] Result Comment: Resu lts checked and verified. No clot detected. Performed By: #### 3 255-7, 51690-8, 79990-6 #### [facility] CLIA [id number] [address] [place] [address] [place] RBC (Bld) [#/Vol] 4.55 10*6/uL Normal 3.90-5.20 [facility] Comment on above: Order Comment: Speci men Type: BLOOD SPECIMEN Ordering Facility: [facility] Address: [address] [place] [address] Performed By: #### 3 255-7, 96603-6, 13169-6 #### [facility] CLIA [id number] [address] [place] [address] [place] WBC (Bld) [#/Vol] 9.69 10*3/uL Normal 3.70-11.00 [facility] Comment on above: Order Comment: Speci men Type: BLOOD SPECIMEN Ordering Facility: [facility] Address: [address] [place] [address] Performed By: #### 3 255-7, 81792-1, 25341-3 #### [facility] CLIA [id number] [address] [place] [address] OF [place] CONFIRM BLOOD TYPEon 024 ABO O Normal [facility] Comment on above: Order Comment: Speci men Type: BLOOD SPECIMEN Ordering Facility: [facility] Address: [address] [place] [address] Performed By: #### 3 255-7, 94027-5, 51552-2 #### [facility] CLIA [id number] [address] [place] [address] [place] Rh Nom (Bld) Positive Normal [facility] Comment on above: Order Comment: Speci men Type: BLOOD SPECIMEN Ordering Facility: [facility] Address: [address] [place] [address] Performed By: #### 3 255-7, 46764-1, 60996-4 #### [facility] CLIA [id number] [address] [place] [address] [address] [facility] CONSULTon 07-09-2024 CONSULT HNO ID: [id number] Author: ABDULAZIZ BANEGAS MD Service: Neurosurgery Author Type: Nurse Practitioner Type: Consults Filed: 07/10/2024 16:22 Note Text: Attestation signed by Abdulaziz Banegas MD at 07/10/2024 4:22 PM I reviewed and agree with Z SPino eval CONSULT: NEUROSURGERY PATIENT NAME: Ruben Lobo DATE of SERVICE: 07/09/2024 TIME of SERVICE: 8:00 AM REASON FOR CONSULT: Cervicothoracic epidural hematoma REQUESTING PHYSICIAN: Dylon Farley APRN.BUSINESS MANAGEMENT ASSOCIATE PRIMARY CARE PHYSICIAN: Rip De La Garza MD HPI: Ms. Lobo is a 79 year old female who presents to [facility] ED as a transfer from [facility]. She received a cervical epidural steroid injection yesterday on 07/08. After the procedure she began to have difficulty walking, slurred speech, and progressive weakness. She is on Eliquis at home for a-fib and the medication was reportedly stopped 2 days before injection. An MRI was done at [facility] and showed extensive posterior epidural hematoma spanning [...] of care discussed with Dr. 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 Normal [facility] Comprehensive metabolic 2000 panelon 07-09-2024 Albumin [Mass/Vol] 3.8 g/dL Normal 3.2-5.0 [facility] Comment on above: Order Comment: Magalie lorenzo Type: BLOOD SPECIMEN Ordering Facility: [facility] Address: [address] [place] [address] Performed By: #### 2 4323-8, 2276-4, 01045-9, 2777-1, 46529-3, 34881-4 #### [facility] CLIA [id number] [address] [place], [place] [address] [place] ALP [Catalytic activity/Vol] 70 U/L Normal 45-117 [facility] Comment on above: Order Comment: Magalie lorenzo Type: BLOOD SPECIMEN Ordering Facility: [facility] Address: [address] [facility] [place] [address] Performed By: #### 2 4323-8, 6-4, 13221-4, 7-1, 11858-4, 77185-5 #### [facility] CLIA [id number] [address] [place], [place] [address] [place] ALT [Catalytic activity/Vol] 10 U/L Low 13-61 [facility] Comment on above: Order Comment: Speci men Type: BLOOD SPECIMEN Ordering Facility: [facility] Address: [address] [place] [address] Result Comment: Resu lts may be falsely depressed after the administration of Sulfasalazine and/or Sulfapyridine. Performed By: #### 2 4323-8, 6-4, 18578-9, 7-1, 60604-0, 61766-1 #### [facility] CLIA [id number] [address] [place], [place] [address] [place] Anion gap [Moles/Vol] 7 mmol/L Normal 5-16 [facility] Comment on above: Order Comment: Speci men Type: BLOOD SPECIMEN Ordering Facility: [facility] Address: [facility] [place] [address] Performed By: #### 2 4323-8, 6-4, 28795-0, 7-1, 56716-2, 79400-8 #### [facility] CLIA [id number] [address] [place], [place] [address] [place] AST [Catalytic activity/Vol] 24 U/L Normal 8-34 [facility] Comment on above: Order Comment: Speci men Type: BLOOD SPECIMEN Ordering Facility: [facility] Address: [address] [place] [address] Result Comment: Resu lts may be falsely depressed after the administration of Sulfasalazine and/or Sulfapyridine. Performed By: #### 2 4323-8, 6-4, 41810-0, 2777-1, 59918-6, 95639-8 #### [facility] CLIA [id number] [address] [place], [place] [address] [place] Bilirubin [Mass/Vol] 1.0 mg/dL Normal 0.2-1.0 [facility] Comment on above: Order Comment: Speci men Type: BLOOD SPECIMEN Ordering Facility: [facility] Address: [address] [place] [address] Performed By: #### 2 4323-8, 6-4, 57125-8, 2777-1, 80666-7, 45074-7 #### [facility] CLIA [id number] [address] [place] [address] [place] Calcium [Mass/Vol] 9.7 mg/dL Normal 8.5-10.5 [facility] Comment on above: Order Comment: Speci men Type: BLOOD SPECIMEN Ordering Facility: [facility] Address: [address] [place] [address] Performed By: #### 2 4323-8, 6-4, 10270-5, 2777-1, 22784-5, 88853-0 #### [facility] CLIA [id number] [address] [place], [place] [address] [place] Chloride [Moles/Vol] 104 mmol/L Normal 98-107 [facility] Comment on above: Order Comment: Speci men Type: BLOOD SPECIMEN Ordering Facility: [facility] Address: [address] [place] [address] Performed By: #### 2 4323-8, 6-4, 12693-1, 2777-1, 11666-3, 43677-2 #### [facility] CLIA [id number] [address] [place], [place] [address] [place] CO2 [Moles/Vol] 28 mmol/L Normal 21-32 [facility] Comment on above: Order Comment: Speci men Type: BLOOD SPECIMEN Ordering Facility: [facility] Address: [address] [place] [address] Performed By: #### 2 4323-8, 6-4, 00240-3, 2777-1, 90956-1, 30389-1 #### [facility] CLIA [id number] [address] [place] [address] [place] Creatinine [Mass/Vol] 0.58 mg/dL Normal 0.51-0.95 [facility] Comment on above: Order Comment: Magalie lorenzo Type: BLOOD SPECIMEN Ordering Facility: [facility] Address: [address] [place] [address] Result Comment: Huma ents receiving either N-Acetylcysteine (NAC) or Metamizole prior to venipuncture, may have falsely depressed results. Performed By: #### 2 4323-8, 6-4, 13663-7, 2777-1, 62932-2, 08380-3 #### [facility] CLIA [id number] [address] [place] [address] [place] Creatinine and Glomerular filtration rate.predicted panel (S/P/Bld) 92 mL/min/1.73m??? Normal >=60 [facility] Comment on above: Order Comment: Magalie lorenzo Type: BLOOD SPECIMEN Ordering Facility: [facility] Address: [address] [place] [address] Result Comment: Diana mated Glomerular Filtration Rate [...] GFR. Performed By: #### 2 4323-8, 6-4, 16734-3, 2777-1, 51974-4, 62256-2 #### [facility] CLIA [id number] [address] [place] [address] [place] Glucose [Mass/Vol] 150 mg/dL High 70-100 [facility] Comment on above: Order Comment: Magalie lorenzo Type: BLOOD SPECIMEN Ordering Facility: [facility] Address: [address] [place] [address] Result Comment: The [place] [employer] (ADA) provides guidance for cutoff [...] Standards of Medical Care in Diabetes 2016, [place] [employer]. Diabetes Care. 2016.39(Suppl 1). Results may be falsely elevated after the administration of Sulfapyridine. Results may be falsely depressed after the administration of Sulfasalazine. Performed By: #### 2 4323-8, 6-4, 76798-2, 7-1, 04080-3, 63747-8 #### [facility] CLIA [id number] [address] [place], [place] [address] [place] Potassium [Moles/Vol] 4.0 mmol/L Normal 3.5-5.1 [facility] Comment on above: Order Comment: Speci men Type: BLOOD SPECIMEN Ordering Facility: [facility] Address: [address] [place] [address] Performed By: #### 2 4323-8, 6-4, 49188-7, 2776-1, 20429-8, 42347-1 #### [facility] CLIA [id number] [address] [place], [place] [id number] [place] Protein [Mass/Vol] 7.2 g/dL Normal 6.0-8.5 [facility] Comment on above: Order Comment: Speci men Type: BLOOD SPECIMEN Ordering Facility: [facility] Address: [address] [place] [address] Performed By: #### 2 4323-8, 6-4, 85544-8, 7-1, 68830-8, 01878-9 #### [facility] CLIA [id number] [address] [place], [place] [address] [place] Sodium [Moles/Vol] 139 mmol/L Normal 136-145 [facility] Comment on above: Order Comment: Speci men Type: BLOOD SPECIMEN Ordering Facility: [facility] Address: [address] [place] [address] Performed By: #### 2 4323-8, 2276-4, 49514-5, 2777-1, 05092-3, 79370-7 #### [facility] CLIA [id number] [address] [place] [address] [place] Urea nitrogen [Mass/Vol] 15 mg/dL Normal 7-26 [facility] Comment on above: Order Comment: Speci men Type: BLOOD SPECIMEN Ordering Facility: [facility] Address: [address] [place] [address] Performed By: #### 2 4323-8, 6-4, 98728-5, 2777-1, 17392-5, 87847-5 #### [facility] CLIA [id number] [address] [place] [address] [place] Ferritin SerPl-ncon 2023 Ferritin [Mass/Vol] 22.8 ng/mL Normal 8.0-307.0 [facility] Comment on above: Order Comment: Speci men Type: BLOOD SPECIMEN Ordering Facility: [facility] Address: [address] [place] [address] Performed By: #### 2 4323-8, 6-4, 17592-5, 2777-1, 52364-2, 17145-4 #### [facility] CLIA [id number] [address] [place], [place] [address] [place] Fibrinogen PPP-mCncon 2023 Fibrinogen Coag (PPP) [Mass/Vol] 278 mg/dL Normal 200-400 [facility] Comment on above: Order Comment: Speci men Type: BLOOD SPECIMEN Ordering Facility: [facility] Address: [address] [place] [address] Performed By: #### 3 255-7, 53528-3, 39071-2 #### [facility] CLIA [id number] [address] [place] [address] [place] [address] [place] HISTORY PHYSICALon HISTORY PHYSICAL HNO ID: [id number] Author: ABDULAZIZ BANEGAS MD Service: Neurosurgery Author [...] July 09, 2024 TIME: 10:42 AM Normal [facility] HISTORY PHYSICAL HNO ID: [id number] Author: HAILE GONZALEZ DO Service: Critical Care Author Type: Physician Type: H&P Filed: 07/09/2024 09:42 Note Text: [facility] SERVICE DATE: July [...] for cervical spine pain. [facility]. After the procedure the patient reports [...] assessments. Patient was accepted for admission to [facility] ICU. 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 ONLY (NO CORONARIES); N/A 1964: PAST SURGICAL [...] mg injec (more content not included)... Normal [facility] IMMATURE PLATELET FRACTIONon 07-09-2024 Platelets reticulated/100 platelets Auto (Bld) 5.9 % Normal 0.9-7.2 [facility] Comment on above: Order Comment: Magalie lorenzo Type: BLOOD SPECIMEN Ordering Facility: [facility] Address: [address] [place] [address] Performed By: #### 3 255-7, 98894-6, 15104-3 #### [facility] CLIA [id number] [address] [place], [place] [address] [place] Iron and Iron binding capaci ty panelon 07-09-2024 Iron [Mass/Vol] 71 ug/dL Normal 50-170 [facility] Comment on above: Order Comment: Magalie lorenzo Type: BLOOD SPECIMEN Ordering Facility: [facility] Address: [address] [place], [place] [address] Result Comment: Huma ents treated with metal-binding drugs (e.g.deferoxamine) may have depressed iron values, as chelated iron may not properly react in the Siemens iron assay. Performed By: #### 2 4323-8, 2276-4, 41797-7, 2777-1, 94657-8, 83227-1 #### [facility] CLIA [id number] [address] [place], [place] [address] [place] Iron binding capacity [Mass/Vol] 398 ug/dL Normal 221-481 [facility] Comment on above: Order Comment: Magalie lorenzo Type: BLOOD SPECIMEN Ordering Facility: [facility] Address: [address] [place] [address] Performed By: #### 2 4323-8, 6-4, 95231-9, 7-1, 65397-2, 50835-8 #### [facility] CLIA [id number] [address] [place], [place] [address] [place] Iron/TIBC [Molar ratio] 17.8 % Low 22.0-44.0 [facility] Comment on above: Order Comment: Magalie lorenzo Type: BLOOD SPECIMEN Ordering Facility: [facility] Address: [address] [place] [address] Performed By: #### 2 4323-8, 2276-4, 62811-9, 2777-1, 07091-4, 85949-8 #### [facility] CLIA [id number] [address] [place], [place] [address] [place] LDH SerPl-cCncon 07-09-2024 LDH [Catalytic activity/Vol] 177 U/L Normal 84-246 [facility] Comment on above: Order Comment: Magalie lorenzo Type: BLOOD SPECIMEN Ordering Facility: [facility] Address: [address] [place] [address] Performed By: #### 2 532-0 #### [facility] CLIA [id number] [address] [place], [place] [address] [place] Lipid 1996 panelon 4 Cholesterol [Mass/Vol] 166 mg/dL Normal 0-199 [facility] Comment on above: Order Comment: Chandanjag lorenzo Type: BLOOD SPECIMEN Ordering Facility: [facility] Address: [address] [place] [address] Result Comment: <200 mg/dL, Desirable 200-239 mg/dL, Borderline high >239 mg/dL, High Performed By: #### 2 4323-8, 6-4, 57200-7, 7-1, 84635-9, 04040-6 #### [facility] CLIA [id number] [address] OF [place] Cholesterol in HDL [Mass/Vol] 49 mg/dL Normal >40 [facility] Comment on above: Order Comment: Magalie lorenzo Type: BLOOD SPECIMEN Ordering Facility: [facility] Address: [address] [place] [address] Result Comment: 40-5 9 mg/dL, Acceptable >59 mg/dL, High: Negative risk factor for coronary heart disease <40 mg/dL, Low: Positive risk factor for coronary heart disease Performed By: #### 2 4323-8, 6-4, 83421-2, 7-1, 87441-7, 80765-1 #### [facility] CLIA [id number] [facility] [employer] [address] OF [facility] Cholesterol in LDL [Mass/Vol] 108 mg/dL Normal 0-129 [facility] Comment on above: Order Comment: Chandanjag lorenzo Type: BLOOD SPECIMEN Ordering Facility: [facility] Address: [address] [place] [address] Result Comment: <100 mg/dL, Optimal 100-129 mg/dL, Near optimal/above optimal 130-159 mg/dL, Borderline high 160-189 mg/dL, High >189 mg/dL, Very high Secondary prevention optimal LDL Cholesterol levels are recommended to be < 70 mg/dL Performed By: #### 2 4323-8, 2276-4, 46907-5, 7-1, 85642-7, 24194-5 #### [facility] CLIA [id number] [address] [place], [place] [address] [facility] Cholesterol in LDL/Cholesterol in HDL [Mass ratio] 2.20 {ratio} Normal <2.54 [facility] Comment on above: Order Comment: Magalie lorenzo Type: BLOOD SPECIMEN Ordering Facility: [facility] Address: [address] [place] [address] Result Comment: Refe romulo: 1. National Cholesterol Education Program ATP III Guideline At-A-Glance Quick Desk Reference: National Heart, Lung, and Blood [place]. National Institutes of Health. 2001: NIH Publication No. 01-3305. 2. An International Atherosclerosis Society position paper: global recommendations for the management of dyslipidemia: executive summary, Atherosclerosis. 2014: 232(2):410-413. Performed By: #### 2 4323-8, 6-4, 05067-2, 2777-1, 65137-8, 02804-3 #### [facility] CLIA [id number] [address] [place], [place] [address] [place] Cholesterol in VLDL [Mass/Vol] 9 mg/dL Normal <30 [facility] Comment on above: Order Comment: Magalie lorenzo Type: BLOOD SPECIMEN Ordering Facility: [facility] Address: [address] [place] [address] Performed By: #### 2 4323-8, 6-4, 32321-7, 2777-1, 95852-4, 75854-1 #### [facility] CLIA [id number] [address] [place], [place] [address] [place] Cholesterol non HDL [Mass/Vol] 117 mg/dL Normal <130 [facility] Comment on above: Order Comment: Magalie lorenzo Type: BLOOD SPECIMEN Ordering Facility: [facility] Address: [address] [place], [place] [address] Result Comment: <130 mg/dL, Optimal 130-159 mg/dL, Near optimal/above optimal 160-189 mg/dL, Borderline high 190-219 mg/dL, High >219 mg/dL, Very high Secondary prevention optimal non HDL Cholesterol levels are recommended to be <100 mg/dL Performed By: #### 2 4323-8, 6-4, 34708-8, 7-1, 55368-9, 24271-9 #### [facility] CLIA [id number] [address] [place], [place] [address] [place] Cholesterol.total/Choles terol in HDL [Mass ratio] 3.39 {ratio} Normal <5.10 [facility] Comment on above: Order Comment: Speci men Type: BLOOD SPECIMEN Ordering Facility: [facility] Address: [address] [place] [address] Performed By: #### 2 4323-8, 6-4, 58368-1, 7-1, 84411-6, 90897-9 #### [facility] CLIA [id number] [address] [place] [address] [place] [facility] FASTING TIME Normal [facility] Comment on above: Order Comment: Speci men Type: BLOOD SPECIMEN Ordering Facility: [facility] Address: [address] [place] [address] Result Comment: Unkn own Performed By: #### 2 4323-8, 6-4, 36494-0, 7-1, 60231-3, 75660-2 #### [facility] CLIA [id number] [address] [place] [address] [place] Triglyceride [Mass/Vol] 47 mg/dL Normal 30-149 [facility] Comment on above: Order Comment: Speci men Type: BLOOD SPECIMEN Ordering Facility: [facility] Address: [address] [place] [address] Result Comment: <150 mg/dL, Normal 150-199 mg/dL, Borderline high 200-499 mg/dL, High >499 mg/dL, Very high Patients receiving either N-Acetylcysteine (NAC) or Metamizole prior to venipuncture, may have falsely depressed results. Performed By: #### 2 4323-8, 6-4, 98763-9, 2777-1, 45209-8, 96071-6 #### [facility] CLIA [id number] [address] [place], [place] [address] [place] Magnesium SerPl-mCncon 07-09 Magnesium [Mass/Vol] 1.7 mg/dL Normal 1.6-2.6 [facility] Comment on above: Order Comment: Speci men Type: BLOOD SPECIMEN Ordering Facility: [facility] Address: [address] [place] [address] Performed By: #### 2 4323-8, 2276-4, 08128-7, 2777-1, 00797-1, 25102-1 #### [facility] CLIA [id number] [address] [place] [id number] [facility] NURSING PROGon 07-09-2024 NURSING PROG HNO ID: [id number] Author: KELLIE CHANG RN Service: Nursing Author [...] she arrived to in house holding Normal [facility] NUTRITIONon 07-09-2024 NUTRITION HNO ID: [id number] Author: AJ RUSSO RD Service: Nutrition Therapy [...] follows PAST MEDICAL HISTORY No date: A-fib ([facility]) Comment: On Eliquis No date: [...] Weight Type: Current weight Estimated kilocalorie needs: 7026-3309 Calorie Calculation Method: 25-30 kcals/kg Estimated protein [...] DATE: July 09, 2024 TIME: 2:17 PM [facility] OPERATIVE NOon 07-09-2024 OPERATIVE NO HNO ID: [id number] Author: ABDULAZIZ BANEGAS MD Service: Neurosurgery Author Type: Physician Type: Operative Report Filed: 07/10/2024 16:23 Note Text: [facility] OPERATIVE REPORT RUBEN LOBO : 1945 AGE: 79. SEX: F PATIENT TYPE: I [facility] LOCATION: [place] [address] ATTENDING PHYSICIAN: HAILE GONZALEZ CSN NUMBER: [id number] DATE OF SURGERY/PROCEDURE: 07/09/2024 INCISION/PROCEDURE START TIME: 11:51 AM INCISION CLOSE/PROCEDURE END TIME: 1:24 PM PREOPERATIVE DIAGNOSIS: POSTOPERATIVE DIAGNOSIS: SURGEON: Abdulaziz Banegas MD CIRCULAR RIPSAW OPERATOR: transition assistant, Justino Palmer CNP SURGERY/PROCEDURE: 1. T1-T5 laminectomy. [...] C7 and level was confirmed according to [facility] Spine localization protocol. Copious irrigation was used. At that point, we proceeded with laminectomy T1-T5, spinous process of T1-T5 were removed with Leksell rongeurs, utilizing high-speed Midas Jonel drill, 2 and 3 mm Kerrison rongeurs. Laminectomy was performed. Spinal cord was decompressed. A large amount of blood was removed. Utilizing gentle irrigation and Morrill elevator, the rest of the tissues were [...] were no intraoperative complications. Abdulaziz Banegas MD TA:[id number] /[id number] Normal [facility] PT panel Coag (PPP)on 2023 INR Coag (PPP) [Relative time] 1.0 {INR} Normal 0.9-1.3 [facility] Comment on above: Order Comment: Speci men Type: BLOOD SPECIMEN Ordering Facility: [facility] Address: [address] [place] [address] Result Comment: Komal min K Antagonist (VKA) Therapeutic Range: INR 2 to 3 (Target INR of 2.5) Note: For patients treated with VKA drugs, such as warfarin, the [employer] 2012 Guideline recommends [...] Chest 2012, 141:7S-47S Kari RA, et al. [facility] 2017, 70: 252-289 Performed By: #### 3 255-7, 52192-2, 24182-7 #### [facility] CLIA [id number] [address] [place] [address] [place] PT Coag (PPP) [Time] 10.9 s Normal 9.7-13.0 [facility] Comment on above: Order Comment: Magalie lorenzo Type: BLOOD SPECIMEN Ordering Facility: [facility] Address: [address] [place] [address] Performed By: #### 3 255-7, 19700-1, 22330-5 #### [facility] CLIA [id number] [address] [place], [place] [address] [place] [facility] Phosphate [Mass/Vol] 4.2 mg/dL Normal 2.5-4.9 [facility] Comment on above: Order Comment: Magalie lorenzo Type: BLOOD SPECIMEN Ordering Facility: [facility] Address: [address] [place] [address] Result Comment: Elev ated m-protein (paraprotein) levels in the serum may be exhibited in patients with monoclonal gammopathies, causing falsely elevated inorganic phosphorus results. Performed By: #### 2 4323-8, 2276-4, 02056-8, 2777-1, 20923-8, 24656-2 #### [facility] CLIA [id number] [address] [place], [place] [address] [place] STAPHYLOCOCCUS AUREUS AND MR SA SCREEN, PCR, NASALon 07-09-2024 S. aureus and MRSA panel JOANN+probe (Nose) Not detected Normal Not Detected [facility] Comment on above: Order Comment: Speci men Type: BLOOD SPECIMEN Ordering Facility: [facility] Address: [facility] [place] [address] Performed By: #### 3 255-7, 96664-2, 71710-7 #### [facility] CLIA [id number] [address] THERAPY NTon 07-09-2024 THERAPY NT HNO ID: [id number] Author: TODD COLON OTR/Xochitl Service: ? Author Type: Occupational Therapist Type: Therapy (PT/OT/Speech/Resp) Filed: 07/09/2024 12:47 Note Text: OCCUPATIONAL THERAPY MISSED VISIT SERVICE DATE: 07/09/2024 SERVICE TIME: 1247 ROOM: SURGERY POOL (MR SURGERY) Patient not seen due to Test / Procedure. SIGNATURE: CHETAN Kamara/Xochitl PATIENT NAME: Ruben Lobo DATE: July 09, 2024 TIME: 12:47 PM Normal [facility] THERAPY NT HNO ID: [id number] Author: FLAVIA BAUMAN PT, DPT Service: Physical [...] July 09, 2024 TIME: 11:07 AM Normal [facility] THERAPY NT HNO ID: [id number] Author: ALVAREZ VALDERRAMA RRT Service: Respiratory Therapy [...] and NIF) NIF (cm H2O) (Non-Intubated) -36 [facility] TYPE + SCREENon 07-09-2024 ABO O [facility] Comment on above: Order Comment: Speci men Type: BLOOD SPECIMEN Ordering Facility: [facility] Address: [address] [place] [address] Performed By: #### 3 255-7, 89684-3, 11257-8 #### [facility] CLIA [id number] [address] [place] [address] [place] HISTORICAL AB SCR STATUS Negative [facility] Comment on above: Order Comment: Speci men Type: BLOOD SPECIMEN Ordering Facility: [facility] Address: [address] [place] [address] Performed By: #### 3 255-7, 91301-9, 81436-1 #### [facility] CLIA [id number] [address] [place] [address] [place] Rh Nom (Bld) Positive [facility] Comment on above: Order Comment: Speci men Type: BLOOD SPECIMEN Ordering Facility: [facility] Address: [address] [place] [address] Performed By: #### 3 255-7, 92067-6, 49645-0 #### [facility] CLIA [id number] [address] [place] [address] [place] TYPE AND SCREEN EXPIRATION 07/12/2024 23:59 [facility] Comment on above: Order Comment: Speci men Type: BLOOD SPECIMEN Ordering Facility: [facility] Address: [address] [place] [address] Performed By: #### 3 255-7, 96080-3, 09038-3 #### [facility] CLIA [id number] [address] [place] [address] [place] Urinalysis complete panel (U )on 07-09-2024 Bacteria LM.HPF (Urine sed) [#/Area] None Seen Normal None Seen [facility] Comment on above: Order Comment: Speci men Type: BLOOD SPECIMEN Ordering Facility: [facility] Address: [address] [place] [address] Performed By: #### 3 255-7, 08092-0, 72451-0 #### [facility] CLIA [id number] [address] [place], [place] [address] [place] Bilirubin Ql (U) Negative Normal Negative [facility] Comment on above: Order Comment: Speci men Type: BLOOD SPECIMEN Ordering Facility: [facility] Address: [address] [place] [address] Performed By: #### 3 255-7, 97546-7, 05842-5 #### [facility] CLIA [id number] [address] [place], [place] [address] [place] OF [place] Clarity (Unsp spec) Cloudy Abnormal Clear [facility] Comment on above: Order Comment: Speci men Type: BLOOD SPECIMEN Ordering Facility: [facility] Address: [address] [place] [address] Performed By: #### 3 255-7, 26933-1, 73771-4 #### [facility] CLIA [id number] [address] [place] [address] [place] Color (U) Yellow Normal Yellow [facility] Comment on above: Order Comment: Speci men Type: BLOOD SPECIMEN Ordering Facility: [facility] Address: [address] [place] [address] Performed By: #### 3 255-7, 03083-6, 06068-5 #### [facility] CLIA [id number] [address] [place], [place] [address] [place] Epithelial cells LM.HPF (Urine sed) [#/Area] Few Normal [facility] Comment on above: Order Comment: Speci men Type: BLOOD SPECIMEN Ordering Facility: [facility] Address: [address] [place] [address] Performed By: #### 3 255-7, 95738-4, 46554-7 #### [facility] CLIA [id number] [address] [place] [address] [place] Glucose Test strip (U) [Mass/Vol] Negative Normal Negative [facility] Comment on above: Order Comment: Speci men Type: BLOOD SPECIMEN Ordering Facility: [facility] Address: [address] [place] [address] Performed By: #### 3 255-7, 42708-3, 06858-6 #### [facility] CLIA [id number] [address] [place] [address] OF [place] Hemoglobin Ql (U) Negative Normal Negative [facility] Comment on above: Order Comment: Speci men Type: BLOOD SPECIMEN Ordering Facility: [facility] Address: [address] [place] [address] Performed By: #### 3 255-7, 52463-3, 81424-8 #### [facility] CLIA [id number] [address] [place] [address] Ketones Ql (U) Trace Abnormal Negative [facility] Comment on above: Order Comment: Speci men Type: BLOOD SPECIMEN Ordering Facility: [facility] Address: [address] [place] [place] [address] Performed By: #### 3 255-7, 10433-4, 44804-9 #### [facility] CLIA [id number] [address] [place] [address] Leukocyte esterase Test strip Ql (U) Negative Normal Negative [facility] Comment on above: Order Comment: Speci men Type: BLOOD SPECIMEN Ordering Facility: [facility] Address: [address] [place] [address] Performed By: #### 3 255-7, 54627-3, 07392-6 #### [facility] CLIA [id number] [address] [place] [address] [place] Nitrite Ql (U) Negative Normal Negative [facility] Comment on above: Order Comment: Speci men Type: BLOOD SPECIMEN Ordering Facility: [facility] Address: [address] [place] [address] Performed By: #### 3 255-7, 65666-0, 22812-2 #### [facility] CLIA [id number] [address] [place], [place] [address] [place] pH (U) 7.0 [pH] Normal 5.0-8.0 [facility] Comment on above: Order Comment: Speci men Type: BLOOD SPECIMEN Ordering Facility: [facility] Address: [address] [place] [address] Performed By: #### 3 255-7, 09150-7, 11405-2 #### [facility] CLIA [id number] [address] [place], [place] [address] [place] Protein (U) [Mass/Vol] Negative Normal Negative [facility] Comment on above: Order Comment: Speci men Type: BLOOD SPECIMEN Ordering Facility: [facility] Address: [address] [place] [address] Performed By: #### 3 255-7, 06144-4, 94718-1 #### [facility] CLIA [id number] [address] [place] [address] [place] RBC LM.HPF (Urine sed) [#/Area] 0-3 /HPF Normal 0-3 /HPF [facility] Comment on above: Order Comment: Speci men Type: BLOOD SPECIMEN Ordering Facility: [facility] Address: [address] [place] [address] Performed By: #### 3 255-7, 99876-2, 04668-9 #### [facility] CLIA [id number] [address] [place], [place] [id number] [place] Specific gravity (U) [Rel density] 1.014 Normal 1.005-1.030 [facility] Comment on above: Order Comment: Speci men Type: BLOOD SPECIMEN Ordering Facility: [facility] Address: [address] [place] [address] Performed By: #### 3 255-7, 51079-1, 79903-5 #### [facility] CLIA [id number] [address] [place], [place] [id number] [place] Urobilinogen Ql (U) Negative Normal Negative [facility] Comment on above: Order Comment: Speci men Type: BLOOD SPECIMEN Ordering Facility: [facility] Address: [address] [place] [address] [place] [id number] Performed By: #### 3 255-7, 40420-6, 90789-3 #### [facility] CLIA [id number] [address] [place], [place] [address] [facility] WBC LM.HPF (Urine sed) [#/Area] 0-5 /HPF Normal 0-5 /HPF [facility] Comment on above: Order Comment: Speci men Type: BLOOD SPECIMEN Ordering Facility: [facility] Address: [address] [place] [address] [place] [id number] Performed By: #### 3 255-7, 73976-1, 52365-6 #### [facility] CLIA [id number] [address] [place], [place] [id number] [facility] XR VERIFY LEVEL X-ANOAL-BTwj 07-09-2024 XR VERIFY LEVEL C-SPINE-NB * * [...] surgeon at the time of the examination. [employer] Detail: PSCB Transcribe Date/Time: Jul 09 2024 12:22P Dictated by : GINGER BLAS MD This examination was interpreted and the report reviewed and electronically signed by: GINGER BLAS MD on Jul 09 2024 12:29PM EST [id number] CN Normal [facility] aPTT PPPon 07-09-2024 aPTT Coag (PPP) [Time] 25.4 s Normal 23.0-32.4 [facility] Comment on above: Order Comment: Speci men Type: BLOOD SPECIMEN Ordering Facility: [facility] Address: [address], [place] [address] Performed By: #### 3 255-7, 18630-4, 80386-1 #### [facility] CLIA [id number] [address] [place] [address] [place] Basic Metabolic Profile (BMP )on 07-08-2024 BUN/CRE 28.6 RATIO High 10-20 [facility] Comment on above: Performed By: #### L 500.2500, L100.0100, L501.4020 #### [facility] [address] [place], [address] CA,Total 9.5 mg/dL Normal 8.5-10.1 [facility] Comment on above: Performed By: #### L 500.2500, L100.0100, L501.4020 #### [facility] [address] [place], [address] Chloride [Moles/Vol] 107 mmol/L Normal 98-107 [facility] Comment on above: Performed By: #### L 500.2500, L100.0100, L501.4020 #### [facility] [address] [place], [address] CO2 [Moles/Vol] 29.0 mmol/L Normal 21.0-32.0 [facility] Comment on above: Performed By: #### L 500.2500, L100.0100, L501.4020 #### [facility] [address] [place], [address] Creatinine [Mass/Vol] 0.63 mg/dL Normal 0.55-1.02 [facility] Comment on above: Result Comment: The validity of the calculated GFR GFRAA in patients over 70 years has not been determined. Clinical correlation is essential. Performed By: #### L 500.2500, L100.0100, L501.4020 #### [facility] [address] [place], [address] ECRCL 46.67 ml/min Normal [facility] Comment on above: Performed By: #### L 500.2500, L100.0100, L501.4020 #### [facility] [address] [place], [address] EST GFR - AA 117 mL/min Normal >60 [facility] Comment on above: Result Comment: Afri can Norwegian GFR Calc Performed By: #### L 500.2500, L100.0100, L501.4020 #### [facility] [address] [place], [address] GAP 5 Normal 5-15 [facility] Comment on above: Performed By: #### L 500.2500, L100.0100, L501.4020 #### [facility] [address] [place], [address] GFR/1.73 sq M.predicted among non-blacks MDRD (S/P/Bld) [Vol rate/Area] 97 mL/min/{1.73_m2} Normal >60 [facility] Comment on above: Result Comment: Non- GFR Calc Performed By: #### L 500.2500, L100.0100, L501.4020 #### [facility] [address] [place], [address] Glucose [Mass/Vol] 127 mg/dL High 74-106 [facility] Comment on above: Result Comment: Fast ing Glucose result greater than or equal to 126 mg/dL suggests DIABETES MELLITUS per A.D.A. criteria. Performed By: #### L 500.2500, L100.0100, L501.4020 #### [facility] [address] [place], [address] Potassium [Moles/Vol] 3.9 mmol/L Normal 3.5-5.1 [facility] Comment on above: Performed By: #### L 500.2500, L100.0100, L501.4020 #### [facility] [address] [place], [address] Sodium [Moles/Vol] 141 mmol/L Normal 136-145 [facility] Comment on above: Performed By: #### L 500.2500, L100.0100, L501.4020 #### [facility] [address] [place], [address] Urea nitrogen [Mass/Vol] 18 mg/dL Normal 7-18 [facility] Comment on above: Performed By: #### L 500.2500, L100.0100, L501.4020 #### [facility] [address] [place], [address] CBC W/Diff, Automatedon 06-12 Absolute Lymph 0.61 X10 3/uL Low 0.83-4.51 [facility] Comment on above: Performed By: #### L 500.2500, L100.0100, L501.4020 #### [facility] [address] [place], [address] Absolute Neut 6.0 X10 3/uL Normal 2.0-7.7 [facility] Comment on above: Performed By: #### L 500.2500, L100.0100, L501.4020 #### [facility] [address] [place], [address] Basophils/100 WBC (Bld) 0.6 % Normal 0-1 [facility] Comment on above: Performed By: #### L 500.2500, L100.0100, L501.4020 #### [facility] [address] [place], [address] Eosinophils/100 WBC (Bld) 0.3 % Normal 0-5 [facility] Comment on above: Performed By: #### L 500.2500, L100.0100, L501.4020 #### [facility] [address] [place], [address] Erythrocyte distribution width (RBC) [Ratio] 15.0 % High 11.6-14.6 [facility] Comment on above: Performed By: #### L 500.2500, L100.0100, L501.4020 #### [facility] [address] [place], [address] Hematocrit (Bld) [Volume fraction] 41.0 % Normal 37-47 [facility] Comment on above: Performed By: #### L 500.2500, L100.0100, L501.4020 #### [facility] [address] [place], [address] Hemoglobin (Bld) [Mass/Vol] 12.9 g/dL Normal 12.0-15.0 [facility] Comment on above: Performed By: #### L 500.2500, L100.0100, L501.4020 #### [facility] [address] [place], [address] IG% 0.700 Normal 0.0-0.9 [facility] Comment on above: Result Comment: IG% - Immature Granulocytes (promyelocytes, myelocytes and metamyelocytes) > 1% indicates that a LEFT SHIFT is Present. Performed By: #### L 500.2500, L100.0100, L501.4020 #### [facility] [address] [place], [address] Lymphocytes/100 WBC (Bld) 8.9 % Low 19-41 [facility] Comment on above: Performed By: #### L 500.2500, L100.0100, L501.4020 #### [facility] [address] [place], [address] MCH (RBC) [Entitic mass] 28.2 pg Normal 27.0-32.0 [facility] Comment on above: Performed By: #### L 500.2500, L100.0100, L501.4020 #### [facility] [address] [place], [address] MCHC (RBC) [Mass/Vol] 31.5 g/dL Low 32-36 [facility] Comment on above: Performed By: #### L 500.2500, L100.0100, L501.4020 #### [facility] [address] [place], [address] MCV (RBC) [Entitic vol] 89.7 fL Normal 81-99 [facility] Comment on above: Performed By: #### L 500.2500, L100.0100, L501.4020 #### [facility] [address] [place], [address] Monocytes/100 WBC (Bld) 1.3 % Normal 0-10 [facility] Comment on above: Performed By: #### L 500.2500, L100.0100, L501.4020 #### [facility] [address] [place], [address] Neutrophils/100 WBC (Bld) 88.2 % High 47-70 [facility] Comment on above: Performed By: #### L 500.2500, L100.0100, L501.4020 #### [facility] [address] [place], [address] Nucleated RBC (Bld) [#/Vol] 0 10*3/uL Normal 0-5 [facility] Comment on above: Performed By: #### L 500.2500, L100.0100, L501.4020 #### [facility] [address] [place], [address] Platelet mean volume (Bld) [Entitic vol] 11.0 fL Normal 6.2-12.0 [facility] Comment on above: Performed By: #### L 500.2500, L100.0100, L501.4020 #### [facility] [address] [place], [address] Platelets (Bld) [#/Vol] 90 10*3/uL Low 150-450 [facility] Comment on above: Performed By: #### L 500.2500, L100.0100, L501.4020 #### [facility] [address] [place], [address] RBC (Bld) [#/Vol] 4.57 10*6/uL Normal 4.2-5.4 [facility] Comment on above: Performed By: #### L 500.2500, L100.0100, L501.4020 #### [facility] [address] [place], [address] RDW SD 49.8 fl High 35.1-43.9 [facility] Comment on above: Performed By: #### L 500.2500, L100.0100, L501.4020 #### [facility] [address] [place], [address] WBC (Bld) [#/Vol] 6.9 10*3/uL Normal 4.4-11.0 [facility] Comment on above: Performed By: #### L 500.2500, L100.0100, L501.4020 #### [facility] [address] [place], [address] Emergency Department Summary on 07-08-2024 Emergency Department Summary [facility] Medical Records Department [address] [place] [address] Emergency Department Summary 07/08/24 MR#: [id number] Acct: [id number] Name: RUBEN LOBO Rep #: [id number] : 1945 79 From: Rip Buenrostro DO [...] Patient is on Eliquis for atrial fibrillation. [facility] Medical History Wears hearing aid [...] cardioversion CLARISSE (obstructive sleep apnea) Mixed hyperlipidemia emt intermediate current use of 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 drug Pulmonary hypertension Chronic cholecystitis with calculus Paroxysmal atrial fibrillation Essential (primary) hypertension Esophageal hiatal hernia 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, left emt intermediate current use of anticoagulant Atrial flutter GERD (gastroesophageal reflux disease) Home Medications ???Medication ???Instructions ???Recorded ???Last Taken ???Type denosumab 60 mg/mL subcutaneous 60 mg subcut [id number] 12/14/20 04/25/22 History syringe (Prolia) pantoprazole 40 [...] or palpit (more content not included)... Normal [facility] Partial Thromboplast Timeon 07-08-2024 aPTT Coag (Bld) [Time] 22.8 s Low 24.1-36.2 [facility] Comment on above: Performed By: #### L 300.0175, L300.3901 #### [facility] [address] [place], [address] Prothrombin Time w/INRon INR Coag (PPP) [Relative time] 1.1 {INR} Normal [facility] Comment on above: Performed By: #### L 300.4310, L300.3900 #### [facility] [address] [place], [address] PT Coag (PPP) [Time] 14.2 s Normal 11.7-14.9 [facility] Comment on above: Performed By: #### L 300.4310, L300.3900 #### [facility] [address] [place], [address] Spine Cervical (Routine)on 0 07-08-2024 Spine Cervical (Routine) [facility] Imaging Services [address] [place] [address] Spine Cervical (Routine) MR#: [id number] Acct: [id number] Name: RUBEN LOBO Rep #: [id number] : 1945 F 79 From: Karthik Barnard PCP: Dr. Rip De La Garza MD Status: [facility] Study: Spine Cervical (Routine) Date of Exam: Exam# [id number] Ordering Dr: Rip Buenrostro DO ADDENDUM by Dr. Karthik Johnston MD on 07/08/24 at 1956 [id number] STUDY: MRI CERVICAL SPINE REASON FOR EXAM: [...] State: 3337 (more content not included)... Normal [facility] Spine Thoracic (Routine)on 07-08-2024 Spine Thoracic (Routine) [facility] Imaging Services [address] [place], [place] [address] Spine Thoracic (Routine) MR#: [id number] Acct: [id number] Name: RUBEN LOBO Andres Rep #: [id number] : 1945 F 79 From: Karthik Barnard PCP: Dr. Rip De La Garza MD Status: [facility] Study: Spine Thoracic (Routine) Date of Exam: Exam# [id number] Ordering Dr: Rip Buenrostro DO [id number] STUDY: MRI THORACIC SPINE WithoutCONTRAST REASON FOR [...] DO; Dr. Rip De La Garza MD [employer] Detail: Signed Normal [facility] CBC W/Diff, Automatedon 05-11 Absolute Lymph 1.23 X10 3/uL Normal 0.83-4.51 [facility] Comment on above: Order Comment: Order Date: 05/26/24Order Info: 0184-1 - CBCD Performed By: #### L 502.0250, L100.0100, L501.9520, L500.4050 ####[facility] [address] [place], [address] Absolute Neut 3.1 X10 3/uL Normal 2.0-7.7 [facility] Comment on above: Order Comment: Order Date: 05/26/24Order Info: 0184-1 - CBCD Performed By: #### L 502.0250, L100.0100, L501.9520, L500.4050 ####[facility] [address] [place], [address] Basophils/100 WBC (Bld) 0.6 % Normal 0-1 [facility] Comment on above: Order Comment: Order Date: 05/26/24Order Info: 0184-1 - CBCD Performed By: #### L 502.0250, L100.0100, L501.9520, L500.4050 ####[facility] [address] [place], [address] Eosinophils/100 WBC (Bld) 1.0 % Normal 0-5 [facility] Comment on above: Order Comment: Order Date: 05/26/24Order Info: 0184-1 - CBCD Performed By: #### L 502.0250, L100.0100, L501.9520, L500.4050 ####[facility] [address] [place], [address] Erythrocyte distribution width (RBC) [Ratio] 16.3 % High 11.6-14.6 [facility] Comment on above: Order Comment: Order Date: 05/26/24Order Info: 018- - CBCD Performed By: #### L 502.0250, L100.0100, L501.9520, L500.4050 ####[facility] [address] [place], [address] Hematocrit (Bld) [Volume fraction] 41.9 % Normal 37-47 [facility] Comment on above: Order Comment: Order Date: 05/26/24Order Info: 018- - CBCD Performed By: #### L 502.0250, L100.0100, L501.9520, L500.4050 ####[facility] [address] [place], [address] Hemoglobin (Bld) [Mass/Vol] 12.5 g/dL Normal 12.0-15.0 [facility] Comment on above: Order Comment: Order Date: 05/26/24Order Info: 018- - CBCD Performed By: #### L 502.0250, L100.0100, L501.9520, L500.4050 ####[facility] [address] [place], [address] IG% 0.200 Normal 0.0-0.9 [facility] Comment on above: Order Comment: Order Date: 05/26/24Order Info: 018- - CBCD Result Comment: IG% - Immature Granulocytes (promyelocytes, myelocytes and metamyelocytes) > 1% indicates that a LEFT SHIFT is Present. Performed By: #### L 502.0250, L100.0100, L501.9520, L500.4050 ####[facility] [address] [place], [address] Lymphocytes/100 WBC (Bld) 25.6 % Normal 19-41 [facility] Comment on above: Order Comment: Order Date: 05/26/24Order Info: 0184-1 - CBCD Performed By: #### L 502.0250, L100.0100, L501.9520, L500.4050 ####[facility] [address] [place], [address] MCH (RBC) [Entitic mass] 26.5 pg Low 27.0-32.0 [facility] Comment on above: Order Comment: Order Date: 05/26/24Order Info: 0184-1 - CBCD Performed By: #### L 502.0250, L100.0100, L501.9520, L500.4050 ####[facility] [address] [place], [address] MCHC (RBC) [Mass/Vol] 29.8 g/dL Low 32-36 [facility] Comment on above: Order Comment: Order Date: 05/26/24Order Info: 018-1 - CBCD Performed By: #### L 502.0250, L100.0100, L501.9520, L500.4050 ####[facility] [address] [place], [address] MCV (RBC) [Entitic vol] 88.8 fL Normal 81-99 [facility] Comment on above: Order Comment: Order Date: 05/26/24Order Info: 0184-1 - CBCD Performed By: #### L 502.0250, L100.0100, L501.9520, L500.4050 ####[facility] [address] [place], [address] Monocytes/100 WBC (Bld) 7.9 % Normal 0-10 [facility] Comment on above: Order Comment: Order Date: 05/26/24Order Info: 0184-1 - CBCD Performed By: #### L 502.0250, L100.0100, L501.9520, L500.4050 ####[facility] [address] [place], [address] Neutrophils/100 WBC (Bld) 64.7 % Normal 47-70 [facility] Comment on above: Order Comment: Order Date: 05/26/24Order Info: 0184-1 - CBCD Performed By: #### L 502.0250, L100.0100, L501.9520, L500.4050 ####[facility] [address] [place], [address] Nucleated RBC (Bld) [#/Vol] 0 10*3/uL Normal 0-5 [facility] Comment on above: Order Comment: Order Date: 05/26/24Order Info: 0184-1 - CBCD Performed By: #### L 502.0250, L100.0100, L501.9520, L500.4050 ####[facility] [address] [place], [address] Platelet mean volume (Bld) [Entitic vol] 11.5 fL Normal 6.2-12.0 [facility] Comment on above: Order Comment: Order Date: 05/26/24Order Info: 0184-1 - CBCD Performed By: #### L 502.0250, L100.0100, L501.9520, L500.4050 ####[facility] [address] [place], [address] Platelets (Bld) [#/Vol] 128 10*3/uL Low 150-450 [facility] Comment on above: Order Comment: Order Date: 05/26/24Order Info: 0184-1 - CBCD Performed By: #### L 502.0250, L100.0100, L501.9520, L500.4050 ####[facility] [address] [place], [address] RBC (Bld) [#/Vol] 4.72 10*6/uL Normal 4.2-5.4 [facility] Comment on above: Order Comment: Order Date: 05/26/24Order Info: 0184-1 - CBCD Performed By: #### L 502.0250, L100.0100, L501.9520, L500.4050 ####[facility] [address] [place], [address] RDW SD 53.2 fl High 35.1-43.9 [facility] Comment on above: Order Comment: Order Date: 05/26/24Order Info: 0184-1 - CBCD Performed By: #### L 502.0250, L100.0100, L501.9520, L500.4050 ####[facility] [address] [place], [address] WBC (Bld) [#/Vol] 4.8 10*3/uL Normal 4.4-11.0 [facility] Comment on above: Order Comment: Order Date: 05/26/24Order Info: 0184-1 - CBCD Performed By: #### L 502.0250, L100.0100, L501.9520, L500.4050 ####[facility] [address] [place], [address] Comprehensive Metabolic Prof [facility] 05-26-2024 Albumin [Mass/Vol] 3.6 g/dL Normal 3.2-5.0 [facility] Comment on above: Order Comment: Order Date: 05/26/24Order Info: 0786-1 - CMPOrder Info: 3016-3 - TSH Performed By: #### L 502.0250, L100.0100, L501.9520, L500.4050 ####[facility] [address] [place], [address] Albumin/Globulin [Mass ratio] 0.9 {ratio} Normal 0.9-2.4 [facility] Comment on above: Order Comment: Order Date: 05/26/24Order Info: 0786-1 - CMPOrder Info: 3016-3 - TSH Performed By: #### L 502.0250, L100.0100, L501.9520, L500.4050 ####[facility] [address] [place], [address] ALK P 61 U/L Normal 45-117 [facility] Comment on above: Order Comment: Order Date: 05/26/24Order Info: 07-1 - CMPOrder Info: 6-3 - TSH Performed By: #### L 502.0250, L100.0100, L501.9520, L500.4050 ####[facility] [address] [place], [address] ALT [Catalytic activity/Vol] 17 U/L Normal 13-56 [facility] Comment on above: Order Comment: Order Date: 05/26/24Order Info: 0786- - CMPOrder Info: 3016-3 - TSH Performed By: #### L 502.0250, L100.0100, L501.9520, L500.4050 ####[facility] [address] [place], [address] AST [Catalytic activity/Vol] 21 U/L Normal 15-37 [facility] Comment on above: Order Comment: Order Date: 05/26/24Order Info: 0786- - CMPOrder Info: 3016-3 - TSH Performed By: #### L 502.0250, L100.0100, L501.9520, L500.4050 ####[facility] [address] [place], [address] Bilirubin [Mass/Vol] 0.80 mg/dL Normal 0.20-1.00 [facility] Comment on above: Order Comment: Order Date: 05/26/24Order Info: 0786-1 - CMPOrder Info: 3016-3 - TSH Result Comment: For patients on eltrombopag therapy, use of Dimension [place] TBIL is not recommended. Performed By: #### L 502.0250, L100.0100, L501.9520, L500.4050 ####[facility] [address] [place], [address] BUN/CRE 20.4 RATIO High 10-20 [facility] Comment on above: Order Comment: Order Date: 05/26/24Order Info: 0786-1 - CMPOrder Info: 301-3 - TSH Performed By: #### L 502.0250, L100.0100, L501.9520, L500.4050 ####[facility] [address] [place], [address] CA,Total 8.9 mg/dL Normal 8.5-10.1 [facility] Comment on above: Order Comment: Order Date: 05/26/24Order Info: 0786-1 - CMPOrder Info: 3015-3 - TSH Performed By: #### L 502.0250, L100.0100, L501.9520, L500.4050 ####[facility] [address] [place], [address] Chloride [Moles/Vol] 104 mmol/L Normal 98-107 [facility] Comment on above: Order Comment: Order Date: 05/26/24Order Info: 0786-1 - CMPOrder Info: 301-3 - TSH Performed By: #### L 502.0250, L100.0100, L501.9520, L500.4050 ####[facility] [address] [place], [address] CO2 [Moles/Vol] 29.0 mmol/L Normal 21.0-32.0 [facility] Comment on above: Order Comment: Order Date: 05/26/24Order Info: 0786-1 - CMPOrder Info: 3016-3 - TSH Performed By: #### L 502.0250, L100.0100, L501.9520, L500.4050 ####[facility] [address] [place], [address] Creatinine [Mass/Vol] 0.74 mg/dL Normal 0.55-1.02 [facility] Comment on above: Order Comment: Order Date: 05/26/24Order Info: 0786-1 - CMPOrder Info: 3016-3 - TSH Result Comment: The validity of the calculated GFR GFRAA in patients over 70 years has not been determined. Clinical correlation is essential. Performed By: #### L 502.0250, L100.0100, L501.9520, L500.4050 ####[facility] [address] [place], [address] EST GFR - AA 98 mL/min Normal >60 [facility] Comment on above: Order Comment: Order Date: 05/26/24Order Info: [id number] - CMPOrder Info: [id number] - TSH Result Comment: Afri can Norwegian GFR Calc Performed By: #### L 502.0250, L100.0100, L501.9520, L500.4050 ####[facility] [address] [place], [address] GAP 6 Normal 5-15 [facility] Comment on above: Order Comment: Order Date: 05/26/24Order Info: [id number] - CMPOrder Info: [id number] - TSH Performed By: #### L 502.0250, L100.0100, L501.9520, L500.4050 ####[facility] [address] [place], [address] GFR/1.73 sq M.predicted among non-blacks MDRD (S/P/Bld) [Vol rate/Area] 81 mL/min/{1.73_m2} Normal >60 [facility] Comment on above: Order Comment: Order Date: 05/26/24Order Info: [id number] - CMPOrder Info: [id number] - TSH Result Comment: Non- GFR Calc Performed By: #### L 502.0250, L100.0100, L501.9520, L500.4050 ####[facility] [address] [place], [address] Globulin (S) [Mass/Vol] 3.8 g/dL Normal 2.2-4.2 [facility] Comment on above: Order Comment: Order Date: 05/26/24Order Info: 07- - CMPOrder Info: 3 - TSH Performed By: #### L 502.0250, L100.0100, L501.9520, L500.4050 ####[facility] [address] [place], [address] Glucose [Mass/Vol] 106 mg/dL Normal 74-106 [facility] Comment on above: Order Comment: Order Date: 05/26/24Order Info: [id number] - CMPOrder Info: [id number] - TSH Result Comment: Fast ing Glucose result from 100 to 125 mg/dL suggests IMPAIRED HOMEOSTASIS per A.D.A. criteria. Performed By: #### L 502.0250, L100.0100, L501.9520, L500.4050 ####[facility] [address] [place], [address] Potassium [Moles/Vol] 3.6 mmol/L Normal 3.5-5.1 [facility] Comment on above: Order Comment: Order Date: 05/26/24Order Info: [id number] - CMPOrder Info: [id number] - TSH Performed By: #### L 502.0250, L100.0100, [id number], L500.4050 ####[facility] [address] [place], [address] Sodium [Moles/Vol] 139 mmol/L Normal 136-145 [facility] Comment on above: Order Comment: Order Date: 05/26/24Order Info: [id number] - CMPOrder Info: [id number] - TSH Performed By: #### L 502.0250, L100.0100, L501.9520, L500.4050 ####[facility] [address] [place], [address] T PROT 7.4 g/dL Normal 6.4-8.2 [facility] Comment on above: Order Comment: Order Date: 05/26/24Order Info: [id number] - CMPOrder Info: [id number] - TSH Performed By: #### L 502.0250, L100.0100, L501.9520, L500.4050 ####[facility] [address] [place], [address] Urea nitrogen [Mass/Vol] 15 mg/dL Normal 7-18 [facility] Comment on above: Order Comment: Order Date: 05/26/24Order Info: [id number] - CMPOrder Info: [id number] - TSH Performed By: #### L 502.0250, L100.0100, L501.9520, L500.4050 ####[facility] [address] [place], [address] Microalb:Creat Ratio,Random URon 05-26-2024 Creatinine [Mass/Vol] 76.10 mg/dL Normal NO RAN GE EST. [facility] Comment on above: Order Comment: Order Date: 05/26/24Order Info: [id number] - MIACRE Performed By: #### L 502.0250, L100.0100, [id number], L500.4050 ####[facility] [address] [place], [address] MALB:CRE 25.6 mg/g CRE Normal <30 mg/g CRE [facility] Comment on above: Order Comment: Order Date: 05/26/24Order Info: [id number] - MIACRE Performed By: #### L 502.0250, L100.0100, [id number], L500.4050 ####[facility] [address] [place], [address] MICROALBUMIN,UR 19.5 mg/L Normal NO RANGE EST. [facility] Comment on above: Order Comment: Order Date: 05/26/24Order Info: [id number] - MIACRE Performed By: #### L 502.0250, L100.0100, [id number], L500.4050 ####[facility] [address] [place], [address] Thyroid Stim Hormone (TSH)on 05-26-2024 TSH 1.76 uIU/mL Normal 0.358-3.74 [facility] Comment on above: Order Comment: Order Date: 05/26/24Order Info: [id number] - CMPOrder Info: [id number] - TSH Performed By: #### L 502.0250, L100.0100, L501.9520, L500.4050 ####[facility] [address] [place], [place], [id number] Absolute lymphocyte countOrd ered By: Earnest Haji on 10-12-2023 Lymphocytes Auto (Unsp spec) [#/Vol] 1.03 10*3/uL 0.83-4.51 [facility] Basophil percentageOrdered B y: Earnest Haji on 10-12-2023 Basophil percentage 0 SEEN /hpf 0-5 [facility] Basophils/100 WBC (Bld) 0.7 % 0-1 [facility] Bilirubin [Mass/Vol] 0.80 mg/dL 0.20-1.00 [facility] Comment on above: For patients on eltr ombopag therapy, use of Dimension [place] TBIL is not recommended. Chloride [Moles/Vol] 106 mmol/L 98-107 [facility] Eosinophils/100 WBC (Bld) 0.7 % 0-5 [facility] Glucose [Mass/Vol] 125 mg/dL 74-106 [facility] Comment on above: Fasting Glucose resu lt from 100 to 125 mg/dL suggests IMPAIRED HOMEOSTASIS per A.D.A. criteria. Neutrophils (Bld) [#/Vol] 3.0 10*3/uL 2.0-7.7 [facility] Neutrophils/100 WBC (Bld) 66.9 % 47-70 [facility] Potassium [Moles/Vol] 3.8 mmol/L 3.5-5.1 [facility] Protein [Mass/Vol] 7.0 g/dL 6.4-8.2 [facility] Sodium [Moles/Vol] 141 mmol/L 136-145 [facility] WBC (Bld) [#/Vol] 4.5 10*3/uL 4.4-11.0 [facility] Bilirubin Test strip Ql (U)O rdered By: Earnest Haji on 10-12-2023 Bilirubin Ql (U) Negative Negative [facility] Blood erythrocytes count (nu mber/volume)Ordered By: Earnest Haji on 10-12-2023 RBC (Bld) [#/Vol] 4.47 10*6/uL 4.2-5.4 [facility] Blood hemoglobin measurement (mass/volume)Ordered By: Earnest Haji on 10-12-2023 Hemoglobin (Bld) [Mass/Vol] 13.5 g/dL 12.0-15.0 [facility] Blood lymphocytes/100 leukoc ytesOrdered By: Earnest Haji on 10-12-2023 Lymphocytes/100 WBC (Bld) 23.0 % 19-41 [facility] Blood monocytes/100 leukocyt esOrdered By: Earnest Haji on 10-12-2023 Monocytes/100 WBC (Bld) 8.0 % 0-10 [facility] Blood platelet mean volumeOr dered By: Earnest Haji on 10-12-2023 Platelet mean volume (Bld) [Entitic vol] 10.7 fL 6.2-12.0 [facility] Determination of erythrocyte mean corpuscular volume (MCV)Ordered By: Earnest Haji on 10-12-2023 MCV (RBC) [Entitic vol] 93.7 fL 81-99 [facility] Hematocrit Auto (Bld) [Volum e fraction]Ordered By: Earnest Haji on 10-12-2023 Hematocrit (Bld) [Volume fraction] 41.9 % 37-47 [facility] Ketones Test strip Ql (U)Ord ered By: Earnest Haji on 10-12-2023 Ketones Ql (U) Negative Negative [facility] Laboratory - Chemistry and C hemistry - challengeOrdered By: Earnest Haji on 10-12-2023 ALP [Catalytic activity/Vol] 70 U/L 45-117 [facility] ALT [Catalytic activity/Vol] 22 U/L 13-56 [facility] CO2 [Moles/Vol] 30.0 mmol/L 21.0-32.0 [facility] Globulin (S) [Mass/Vol] 3.4 g/dL 2.2-4.2 [facility] Urea nitrogen/Creatinine [Mass ratio] 20.3 mg/mg 10-20 [facility] Laboratory - Hematology and Cell countsOrdered By: Earnest Haji on 10-12-2023 Erythrocyte distribution width (RBC) [Entitic vol] 47.0 fL 35.1-43.9 [facility] Erythrocyte distribution width (RBC) [Ratio] 13.6 % 11.6-14.6 [facility] Immature granulocytes/100 WBC (Bld) 0.700 % 0.0-0.9 [facility] Comment on above: IG% - Immature Granu locytes (promyelocytes, myelocytes and metamyelocytes) > 1% indicates that a LEFT SHIFT is Present. MCH (RBC) [Entitic mass] 30.2 pg 27.0-32.0 [facility] Nucleated RBC/100 WBC (Bld) [Ratio] 0 % 0-5 [facility] MCHC Auto (RBC) [Mass/Vol]Or dered By: Earnest Haji on 10-12-2023 MCHC (RBC) [Mass/Vol] 32.2 g/dL 32-36 [facility] Mucus LM Ql (Urine sed)Order ed By: Earnest Haji on 10-12-2023 Mucus Ql (Urine sed) 0 SEEN /hpf [facility] Nitrite Test strip Ql (U)Ord ered By: Earnest Haji on 10-12-2023 Nitrite Ql (U) Negative Negative [facility] No Panel InformationOrdered By: Earnest Haji on 10-12-2023 Estimated Creatinine Clearance Calc 33.30 ml/min [facility] Estimated GFR (MDRD) Amer 98 mL/min >60 [facility] Comment on above: GFR Calc Estimated GFR (MDRD) Non-Af Amer 81 mL/min >60 [facility] Comment on above: Non- GFR Calc Troponin I High Sensitivity 16 pg/mL 3.0-54.0 [facility] Comment on above: Please Note: [place] t Units and Gender Specific Reference Ranges. For more information see Policy Stat Procedure [place] High Sensitivity Troponin (TNIH) and attachments. Platelets bldOrdered By: Abdulkadir Haji on 10-12-2023 Platelets (Bld) [#/Vol] 119 10*3/uL 150-450 [facility] Protein Test strip Ql (U)Ord ered By: Earnest Haji on 10-12-2023 Protein Ql (U) Negative Negative [facility] Serum or plasma albumin unruly urement (mass/volume)Ordered By: Earnest Haji on 10-12-2023 Albumin [Mass/Vol] 3.6 g/dL 3.2-5.0 [facility] Serum or plasma albumin/glob ulin mass ratioOrdered By: Earnest Haji on 10-12-2023 Albumin/Globulin [Mass ratio] 1.1 {ratio} 0.9-2.4 [facility] Serum or plasma calcium unruly urement (mass/volume)Ordered By: Earnest Haji on 10-12-2023 Calcium [Mass/Vol] 8.9 mg/dL 8.5-10.1 [facility] Serum or plasma creatinine m easurement (mass/volume)Ordered By: Earnest Haji on 10-12-2023 Creatinine [Mass/Vol] 0.74 mg/dL 0.55-1.02 [facility] Comment on above: The validity of the calculated GFR & GFRAA in patients over 70 years has not been determined. Clinical correlation is essential. Serum or plasma urea nitroge n measurement (mass/volume)Ordered By: Earnest Haji on 10-12-2023 Urea nitrogen [Mass/Vol] 15 mg/dL 7-18 [facility] Squamous epithelial cells de tection in urine sediment by light microscopyOrdered By: Earnest Haji on 10-12-2023 Epithelial cells.squamous LM Ql (Urine sed) 0 SEEN /hpf 5-10 [facility] Thin prep Papanicolaou smear with manual screeningOrdered By: Earnest Haji on 10-12-2023 Thin prep Papanicolaou smear with manual screening 20 U/L 15-37 [facility] Thin prep Papanicolaou smear with manual screening 5 5-15 [facility] Urine blood detectionOrdered By: Earnest Haji on 10-12-2023 RBC Ql (U) Negative Negative [facility] RBC Ql (U) 0 SEEN /hpf 0-5 [facility] Urine clarityOrdered By: Abdulkadir Haji on 10-12-2023 Clarity (U) Clear Clear [facility] Urine color determinationOrd ered By: Earnest Haji on 10-12-2023 Color (U) Straw Yellow [facility] Urine glucose detectionOrder ed By: Earnest Haji on 10-12-2023 Glucose Ql (U) Normal mg/dl Normal [facility] Urine leukocyte esterase det ection by dipstickOrdered By: Earnest Haji on 10-12-2023 Leukocyte esterase Test strip Ql (U) Negative Negative [facility] Urine pHOrdered By: Earnest mckoen on 10-12-2023 pH (U) 7.0 [pH] 5.0 - 8.0 [facility] Urine sediment bacteria coun t by microscopy (number/high power field)Ordered By: Earnest Haji on 10-12-2023 Bacteria LM.HPF (Urine sed) [#/Area] 0 /[HPF] None Seen [facility] Urine specific gravity measu rementOrdered By: Earnest Haji on 10-12-2023 Specific gravity (U) [Rel density] 1.010 1.002-1.030 [facility] Urobilinogen Auto test strip Ql (U)Ordered By: Earnest Haji on 10-12-2023 Urobilinogen Ql (U) Normal mg/dl Normal [facility] Absolute lymphocyte countOrd ered By: Rip De La Garza on 06-14-2023 Lymphocytes Auto (Unsp spec) [#/Vol] 1.33 10*3/uL 0.83-4.51 [facility] Basophil percentageOrdered B y: Rip De La Garza on 06-14-2023 Basophils/100 WBC (Bld) 0.4 % 0-1 [facility] Bilirubin [Mass/Vol] 0.70 mg/dL 0.20-1.00 [facility] Comment on above: For patients on eltr ombopag therapy, use of Dimension [place] TBIL is not recommended. Chloride [Moles/Vol] 108 mmol/L 98-107 [facility] Eosinophils/100 WBC (Bld) 0.5 % 0-5 [facility] Glucose [Mass/Vol] 104 mg/dL 74-106 [facility] Comment on above: Fasting Glucose resu lt from 100 to 125 mg/dL suggests IMPAIRED HOMEOSTASIS per A.D.A. criteria. Neutrophils (Bld) [#/Vol] 3.6 10*3/uL 2.0-7.7 [facility] Neutrophils/100 WBC (Bld) 66.4 % 47-70 [facility] Potassium [Moles/Vol] 3.7 mmol/L 3.5-5.1 [facility] Protein [Mass/Vol] 7.5 g/dL 6.4-8.2 [facility] Sodium [Moles/Vol] 141 mmol/L 136-145 [facility] WBC (Bld) [#/Vol] 5.5 10*3/uL 4.4-11.0 [facility] Blood erythrocytes count (nu mber/volume)Ordered By: Rip De La Garza on 06-14-2023 RBC (Bld) [#/Vol] 4.66 10*6/uL 4.2-5.4 [facility] Blood hemoglobin measurement (mass/volume)Ordered By: Rip De La Garza on 06-14-2023 Hemoglobin (Bld) [Mass/Vol] 12.8 g/dL 12.0-15.0 [facility] Blood lymphocytes/100 leukoc ytesOrdered By: Rip De La Garza on 06-14-2023 Lymphocytes/100 WBC (Bld) 24.4 % 19-41 [facility] Blood monocytes/100 leukocyt esOrdered By: Rip De La Garza on 06-14-2023 Monocytes/100 WBC (Bld) 7.9 % 0-10 [facility] Blood platelet mean volumeOr dered By: Rip De La Garza on 06-14-2023 Platelet mean volume (Bld) [Entitic vol] 11.9 fL 6.2-12.0 [facility] Determination of erythrocyte mean corpuscular volume (MCV)Ordered By: Rip De La Garza on 06-14-2023 MCV (RBC) [Entitic vol] 91.0 fL 81-99 [facility] Hematocrit Auto (Bld) [Volum e fraction]Ordered By: Rip De La Garza on 06-14-2023 Hematocrit (Bld) [Volume fraction] 42.4 % 37-47 [facility] Laboratory - Chemistry and C hemistry - challengeOrdered By: Rip De La Garza on 06-14-2023 ALP [Catalytic activity/Vol] 55 U/L 45-117 [facility] ALT [Catalytic activity/Vol] 20 U/L 13-56 [facility] CO2 [Moles/Vol] 31.0 mmol/L 21.0-32.0 [facility] Globulin (S) [Mass/Vol] 3.8 g/dL 2.2-4.2 [facility] Urea nitrogen/Creatinine [Mass ratio] 17.3 mg/mg 10-20 [facility] Laboratory - Hematology and Cell countsOrdered By: Rip De La Garza on 06-14-2023 Erythrocyte distribution width (RBC) [Entitic vol] 51.2 fL 35.1-43.9 [facility] Erythrocyte distribution width (RBC) [Ratio] 15.5 % 11.6-14.6 [facility] Immature granulocytes/100 WBC (Bld) 0.400 % 0.0-0.9 [facility] Comment on above: IG% - Immature Granu locytes (promyelocytes, myelocytes and metamyelocytes) > 1% indicates that a LEFT SHIFT is Present. MCH (RBC) [Entitic mass] 27.5 pg 27.0-32.0 [facility] Nucleated RBC/100 WBC (Bld) [Ratio] 0 % 0-5 [facility] MCHC Auto (RBC) [Mass/Vol]Or dered By: Rip De La Garza on 06-14-2023 MCHC (RBC) [Mass/Vol] 30.2 g/dL 32-36 [facility] No Panel InformationOrdered By: Rip De La Garza on 06-14-2023 Estimated GFR (MDRD) Amer 88 mL/min >60 [facility] Comment on above: GFR Calc Estimated GFR (MDRD) Non-Af Amer 73 mL/min >60 [facility] Comment on above: Non- GFR Calc Thyroid Stimulating Hormone (TSH) 1.87 uIU/mL 0.358-3.74 [facility] Platelets bldOrdered By: Julianna De La Garza on 06-14-2023 Platelets (Bld) [#/Vol] 142 10*3/uL 150-450 [facility] Serum or plasma albumin unruly urement (mass/volume)Ordered By: Rip De La Garza on 06-14-2023 Albumin [Mass/Vol] 3.7 g/dL 3.2-5.0 [facility] Serum or plasma albumin/glob ulin mass ratioOrdered By: Rip De La Garza on 06-14-2023 Albumin/Globulin [Mass ratio] 1.0 {ratio} 0.9-2.4 [facility] Serum or plasma calcium unruly urement (mass/volume)Ordered By: Rip De La Garza on 06-14-2023 Calcium [Mass/Vol] 8.9 mg/dL 8.5-10.1 [facility] Serum or plasma creatinine m easurement (mass/volume)Ordered By: Rip De La Garza on 06-14-2023 Creatinine [Mass/Vol] 0.81 mg/dL 0.55-1.02 [facility] Comment on above: The validity of the calculated GFR & GFRAA in patients over 70 years has not been determined. Clinical correlation is essential. Serum or plasma urea nitroge n measurement (mass/volume)Ordered By: Rip De La Garza on 06-14-2023 Urea nitrogen [Mass/Vol] 14 mg/dL 7-18 [facility] Thin prep Papanicolaou smear with manual screeningOrdered By: Rip De La Garza on 06-14-2023 Thin prep Papanicolaou smear with manual screening 27 U/L 15-37 [facility] Thin prep Papanicolaou smear with manual screening 2 5-15 [facility] Glucose Glucometer (BldC) [M ass/Vol]on 10-01-2022 Glucose [Mass/Vol] 145 mg/dL 74-106 [facility] Work Phone: Comment on above: MANAGEMENT OF PATIEN T CARE PER NURSING PROTOCOL Absolute lymphocyte counton 09-24-2022 Lymphocytes Auto (Unsp spec) [#/Vol] 1.08 10*3/uL 0.83-4.51 [facility] Work Phone: Basophil percentageon 2021 Basophils/100 WBC (Bld) 0.6 % 0-1 [facility] Work Phone: Chloride [Moles/Vol] 107 mmol/L 98-107 [facility] Work Phone: Eosinophils/100 WBC (Bld) 2.1 % 0-5 [facility] Work Phone: Glucose [Mass/Vol] 142 mg/dL 74-106 [facility] Work Phone: Comment on above: Fasting Glucose resu lt greater than or equal to 126 mg/dL suggests DIABETES MELLITUS per A.D.A. criteria. Neutrophils (Bld) [#/Vol] 3.1 10*3/uL 2.0-7.7 [facility] Work Phone: Neutrophils/100 WBC (Bld) 66.0 % 47-70 [facility] Work Phone: Potassium [Moles/Vol] 4.1 mmol/L 3.5-5.1 [facility] Work Phone: Sodium [Moles/Vol] 143 mmol/L 136-145 [facility] Work Phone: WBC (Bld) [#/Vol] 4.8 10*3/uL 4.4-11.0 [facility] Work Phone: Blood erythrocytes count (nu mber/volume)on 09-24-2022 RBC (Bld) [#/Vol] 4.11 10*6/uL 4.2-5.4 [facility] Work Phone: Blood hemoglobin measurement (mass/volume)on 09-24-2022 Hemoglobin (Bld) [Mass/Vol] 12.9 g/dL 12.0-15.0 [facility] Work Phone: Blood lymphocytes/100 leukoc yteson 09-24-2022 Lymphocytes/100 WBC (Bld) 22.7 % 19-41 [facility] Work Phone: Blood monocytes/100 leukocyt eson 09-24-2022 Monocytes/100 WBC (Bld) 8.4 % 0-10 [facility] Work Phone: Blood platelet mean volumeon 09-24-2022 Platelet mean volume (Bld) [Entitic vol] 11.5 fL 6.2-12.0 [facility] Work Phone: Determination of erythrocyte mean corpuscular volume (MCV)on 09-24-2022 MCV (RBC) [Entitic vol] 96.6 fL 81-99 [facility] Work Phone: Hematocrit Auto (Bld) [Volum e fraction]on 09-24-2022 Hematocrit (Bld) [Volume fraction] 39.7 % 37-47 [facility] Work Phone: Laboratory - Chemistry and C hemistry - challengeon 09-24-2022 CO2 [Moles/Vol] 31.0 mmol/L 21.0-32.0 [facility] Work Phone: Magnesium [Mass/Vol] 2.3 mg/dL 1.6-2.6 [facility] Work Phone: [phone] Urea nitrogen/Creatinine [Mass ratio] 26.3 mg/mg 10-20 [facility] Work Phone: [phone] Laboratory - Hematology and Cell countson 09-24-2022 Erythrocyte distribution width (RBC) [Entitic vol] 47.4 fL 35.1-43.9 [facility] Work Phone: [phone] Erythrocyte distribution width (RBC) [Ratio] 13.3 % 11.6-14.6 [facility] Work Phone: Immature granulocytes/100 WBC (Bld) 0.200 % 0.0-0.9 [facility] Work Phone: Comment on above: IG% - Immature Granu locytes (promyelocytes, myelocytes and metamyelocytes) > 1% indicates that a LEFT SHIFT is Present. MCH (RBC) [Entitic mass] 31.4 pg 27.0-32.0 [facility] Work Phone: Nucleated RBC/100 WBC (Bld) [Ratio] 0 % 0-5 [facility] Work Phone: MCHC Auto (RBC) [Mass/Vol]on 09-24-2022 MCHC (RBC) [Mass/Vol] 32.5 g/dL 32-36 [facility] Work Phone: No Panel Informationon 09-24 Estimated GFR (MDRD) Amer 90 mL/min >60 [facility] Work Phone: Comment on above: GFR Calc Estimated GFR (MDRD) Non-Af Amer 74 mL/min >60 [facility] Work Phone: Comment on above: Non- GFR Calc Platelets bldon 09-24-2022 Platelets (Bld) [#/Vol] 119 10*3/uL 150-450 [facility] Work Phone: Serum or plasma albumin unruly urement (mass/volume)on 09-24-2022 Albumin [Mass/Vol] 3.3 g/dL 3.2-5.0 [facility] Work Phone: Serum or plasma calcium unruly urement (mass/volume)on 09-24-2022 Calcium [Mass/Vol] 9.1 mg/dL 8.5-10.1 [facility] Work Phone: Serum or plasma creatinine m easurement (mass/volume)on 09-24-2022 Creatinine [Mass/Vol] 0.80 mg/dL 0.55-1.02 [facility] Work Phone: Comment on above: The validity of the calculated GFR & GFRAA in patients over 70 years has not been determined. Clinical correlation is essential. Serum or plasma urea nitroge n measurement (mass/volume)on 09-24-2022 Urea nitrogen [Mass/Vol] 21 mg/dL 7-18 [facility] Work Phone: Thin prep Papanicolaou smear with manual screeningon 09-24-2022 Thin prep Papanicolaou smear with manual screening 5 5-15 [facility] Work Phone: Whole blood hemoglobin A1c/t otal hemoglobin ratio (mass fraction)on 09-24-2022 HbA1c (Bld) [Mass fraction] 5.2 % 3.8-5.6 [facility] Work Phone: [phone] Comment on above: Normal < 5.7 % Predi abetic 5.7 - 6.4 % Diabetic >or= 6.5 % Please note range changes. Basophil percentageon 2021 Bilirubin [Mass/Vol] 0.60 mg/dL 0.20-1.00 [facility] Work Phone: [phone] Comment on above: For patients on eltr ombopag therapy, use of Dimension [place] TBIL is not recommended. Protein [Mass/Vol] 7.7 g/dL 6.4-8.2 [facility] Work Phone: [phone] Direct bilirubinon Bilirubin.direct [Mass/Vol] 0.17 mg/dL 0.00-0.30 [facility] Work Phone: [phone] Laboratory - Chemistry and C hemistry - challengeon 09-13-2022 ALP [Catalytic activity/Vol] 80 U/L 45-117 [facility] Work Phone: [phone] ALT [Catalytic activity/Vol] 41 U/L 13-56 [facility] Work Phone: [phone] Globulin (S) [Mass/Vol] 4.2 g/dL 2.2-4.2 [facility] Work Phone: [phone] No Panel Informationon 09-13 Thyroid Stimulating Hormone (TSH) 2.77 uIU/mL 0.358-3.74 [facility] Work Phone: [phone] Serum or plasma albumin unruly urement (mass/volume)on 09-13-2022 Albumin [Mass/Vol] 3.5 g/dL 3.2-5.0 [facility] Work Phone: [phone] Thin prep Papanicolaou smear with manual screeningon 09-13-2022 Thin prep Papanicolaou smear with manual screening 48 U/L 15-37 [facility] Work Phone: Basophil percentageon 2021 Bilirubin [Mass/Vol] 0.40 mg/dL 0.20-1.00 [facility] Work Phone: [phone] Comment on above: For patients on eltr ombopag therapy, use of Dimension [place] TBIL is not recommended. Cholesterol [Mass/Vol] 125 mg/dL <200 [facility] Work Phone: [phone] Comment on above: <200 mg/dL Desirable 200-240 mg/dL Borderline >240 mg/dL High Risk Protein [Mass/Vol] 6.4 g/dL 6.4-8.2 [facility] Work Phone: [phone] Triglyceride [Mass/Vol] 129 mg/dL <199 [facility] Work Phone: [phone] Comment on above: The drugs N-Acetylcy steine and Metamizole may falsely depress this assay.Serum Triglycerides Reference Interval Normal <150 mg/dL Borderline high 150 - 199 mg/dL High 200 - 499 mg/dL Very High > or = 500 mg/dL Direct bilirubinon Bilirubin.direct [Mass/Vol] 0.12 mg/dL 0.00-0.30 [facility] Work Phone: [phone] Laboratory - Chemistry and C hemistry - challengeon 07-12-2022 ALP [Catalytic activity/Vol] 96 U/L 45-117 [facility] Work Phone: [phone] [Catalytic activity/Vol] 107 U/L 13-56 [facility] Work Phone: [phone] Globulin (S) [Mass/Vol] 3.9 g/dL 2.2-4.2 [facility] Work Phone: [phone] [Mass/Vol] 8.6 ug/dL 4.8-13.9 [facility] Work Phone: [phone] Panel Informationon 07-12 Thyroid Stimulating Hormone (TSH) 4.19 uIU/mL 0.358-3.74 [facility] Work Phone: [phone] Serum or plasma albumin unruly urement (mass/volume)on 07-12-2022 Albumin [Mass/Vol] 2.5 g/dL 3.2-5.0 [facility] Work Phone: [phone] Serum or plasma cholesterol in HDL measurement (mass/volume)on 07-12-2022 Cholesterol in HDL [Mass/Vol] 34 mg/dL >40 [facility] Work Phone: Comment on above: The drugs N-Acetylcy steine and Metamizole may falsely depress this assay. Reference Range HDL <40 mg/dL Low HDL Cholesterol HDL >or= 60 mg/dL High HDL Cholesterol Serum or plasma cholesterol in VLDL measurement (mass/volume)on 07-12-2022 Cholesterol in VLDL [Mass/Vol] 26 mg/dL 5-40 [facility] Work Phone: [phone] Serum or plasma low density lipoprotein (LDL) cholesterol measurement (mass/volume)on 07-12-2022 Cholesterol in LDL [Mass/Vol] 65 mg/dL 0-130 [facility] Work Phone: Thin prep Papanicolaou smear with manual screeningon 07-12-2022 Thin prep Papanicolaou smear with manual screening 74 U/L 15-37 [facility] Work Phone: Serum heterophile antibody d etectionon 07-10-2022 Heterophile Ab Ql (S) Negative Negative [facility] Work Phone: Absolute lymphocyte counton 07-06-2022 Lymphocytes Auto (Unsp spec) [#/Vol] 1.16 10*3/uL 0.83-4.51 [facility] Work Phone: Basophil percentageon 2021 Basophils/100 WBC (Bld) 0.6 % 0-1 [facility] Work Phone: [phone] Bilirubin [Mass/Vol] 0.70 mg/dL 0.20-1.00 [facility] Work Phone: Comment on above: For patients on eltr ombopag therapy, use of Dimension [place] TBIL is not recommended. Chloride [Moles/Vol] 106 mmol/L 98-107 [facility] Work Phone: Eosinophils/100 WBC (Bld) 0.3 % 0-5 [facility] Work Phone: Glucose [Mass/Vol] 122 mg/dL 74-106 [facility] Work Phone: Comment on above: Fasting Glucose resu lt from 100 to 125 mg/dL suggests IMPAIRED HOMEOSTASIS per A.D.A. criteria. Neutrophils (Bld) [#/Vol] 5.9 10*3/uL 2.0-7.7 [facility] Work Phone: Neutrophils/100 WBC (Bld) 76.2 % 47-70 [facility] Work Phone: Potassium [Moles/Vol] 4.2 mmol/L 3.5-5.1 [facility] Work Phone: [phone] Protein [Mass/Vol] 6.8 g/dL 6.4-8.2 [facility] Work Phone: [phone] Sodium [Moles/Vol] 141 mmol/L 136-145 [facility] Work Phone: WBC (Bld) [#/Vol] 7.7 10*3/uL 4.4-11.0 [facility] Work Phone: Blood erythrocytes count (nu mber/volume)on 07-06-2022 RBC (Bld) [#/Vol] 4.25 10*6/uL 4.2-5.4 [facility] Work Phone: Blood hemoglobin measurement (mass/volume)on 07-06-2022 Hemoglobin (Bld) [Mass/Vol] 13.3 g/dL 12.0-15.0 [facility] Work Phone: Blood lymphocytes/100 leukoc yteson 07-06-2022 Lymphocytes/100 WBC (Bld) 15.0 % 19-41 [facility] Work Phone: Blood monocytes/100 leukocyt eson 07-06-2022 Monocytes/100 WBC (Bld) 6.6 % 0-10 [facility] Work Phone: Blood platelet mean volumeon 07-06-2022 Platelet mean volume (Bld) [Entitic vol] 11.0 fL 6.2-12.0 [facility] Work Phone: [phone] Determination of erythrocyte mean corpuscular volume (MCV)on 07-06-2022 MCV (RBC) [Entitic vol] 97.9 fL 81-99 [facility] Work Phone: [phone] Erythrocyte sedimentation ra marcia 07-06-2022 ESR (Bld) [Velocity] 14 mm/h 0-30 [facility] Work Phone: [phone] Hematocrit Auto (Bld) [Volum e fraction]on 07-06-2022 Hematocrit (Bld) [Volume fraction] 41.6 % 37-47 [facility] Work Phone: [phone] Laboratory - Chemistry and C hemistry - challengeon 07-06-2022 ALP [Catalytic activity/Vol] 91 U/L 45-117 [facility] Work Phone: [phone] ALT [Catalytic activity/Vol] 274 U/L 13-56 [facility] Work Phone: [phone] CO2 [Moles/Vol] 32.0 mmol/L 21.0-32.0 [facility] Work Phone: [phone] Globulin (S) [Mass/Vol] 4.2 g/dL 2.2-4.2 [facility] Work Phone: [phone] Urea nitrogen/Creatinine [Mass ratio] 17.4 mg/mg 10-20 [facility] Work Phone: [phone] Laboratory - Hematology and Cell countson 07-06-2022 Erythrocyte distribution width (RBC) [Entitic vol] 50.8 fL 35.1-43.9 [facility] Work Phone: [phone] Erythrocyte distribution width (RBC) [Ratio] 14.1 % 11.6-14.6 [facility] Work Phone: [phone] Immature granulocytes/100 WBC (Bld) 1.300 % 0.0-0.9 [facility] Work Phone: [phone] Comment on above: IG% - Immature Granu locytes (promyelocytes, myelocytes and metamyelocytes) > 1% indicates that a LEFT SHIFT is Present. MCH (RBC) [Entitic mass] 31.3 pg 27.0-32.0 [facility] Work Phone: [phone] Nucleated RBC/100 WBC (Bld) [Ratio] 0 % 0-5 [facility] Work Phone: [phone] MCHC Auto (RBC) [Mass/Vol]on 07-06-2022 MCHC (RBC) [Mass/Vol] 32.0 g/dL 32-36 [facility] Work Phone: [phone] Panel Informationon 07-06 Estimated GFR (MDRD) Amer 63 mL/min >60 [facility] Work Phone: [phone] Comment on above: GFR Calc Estimated GFR (MDRD) Non-Af Amer 52 mL/min >60 [facility] Work Phone: [phone] Comment on above: Non- GFR Calc Thyroid Stimulating Hormone (TSH) 2.23 uIU/mL 0.358-3.74 [facility] Work Phone: Platelets bldon 07-06-2022 Platelets (Bld) [#/Vol] 235 10*3/uL 150-450 [facility] Work Phone: [phone] Serum or plasma albumin unruly urement (mass/volume)on 07-06-2022 Albumin [Mass/Vol] 2.6 g/dL 3.2-5.0 [facility] Work Phone: [phone] Serum or plasma albumin/glob ulin mass ratioon 07-06-2022 Albumin/Globulin [Mass ratio] 0.6 {ratio} 0.9-2.4 [facility] Work Phone: [phone] Serum or plasma calcium unruly urement (mass/volume)on 07-06-2022 Calcium [Mass/Vol] 8.2 mg/dL 8.5-10.1 [facility] Work Phone: [phone] Serum or plasma creatinine m easurement (mass/volume)on 07-06-2022 Creatinine [Mass/Vol] 1.09 mg/dL 0.55-1.02 [facility] Work Phone: Comment on above: The validity of the calculated GFR & GFRAA in patients over 70 years has not been determined. Clinical correlation is essential. Serum or plasma urea nitroge n measurement (mass/volume)on 07-06-2022 Urea nitrogen [Mass/Vol] 19 mg/dL 7-18 [facility] Work Phone: Thin prep Papanicolaou smear with manual screeningon 07-06-2022 Thin prep Papanicolaou smear with manual screening 230 U/L 15-37 [facility] Work Phone: Thin prep Papanicolaou smear with manual screening 3 5-15 [facility] Work Phone: Absolute lymphocyte counton 05-17-2022 Lymphocytes Auto (Unsp spec) [#/Vol] 0.97 10*3/uL 0.83-4.51 [facility] Work Phone: Basophil percentageon 2021 Basophils/100 WBC (Bld) 0.5 % 0-1 [facility] Work Phone: Chloride [Moles/Vol] 108 mmol/L 98-107 [facility] Work Phone: Eosinophils/100 WBC (Bld) 1.8 % 0-5 [facility] Work Phone: Glucose [Mass/Vol] 106 mg/dL 74-106 [facility] Work Phone: Comment on above: Fasting Glucose resu lt from 100 to 125 mg/dL suggests IMPAIRED HOMEOSTASIS per A.D.A. criteria. Neutrophils (Bld) [#/Vol] 3.0 10*3/uL 2.0-7.7 [facility] Work Phone: Neutrophils/100 WBC (Bld) 66.5 % 47-70 [facility] Work Phone: Potassium [Moles/Vol] 4.4 mmol/L 3.5-5.1 [facility] Work Phone: Sodium [Moles/Vol] 142 mmol/L 136-145 [facility] Work Phone: [phone] WBC (Bld) [#/Vol] 4.4 10*3/uL 4.4-11.0 [facility] Work Phone: Blood erythrocytes count (nu mber/volume)on 05-17-2022 RBC (Bld) [#/Vol] 4.27 10*6/uL 4.2-5.4 [facility] Work [facility]: Blood hemoglobin measurement (mass/volume)on 05-17-2022 Hemoglobin (Bld) [Mass/Vol] 13.0 g/dL 12.0-15.0 [facility] Work Phone: Blood lymphocytes/100 leukoc yteson 05-17-2022 Lymphocytes/100 WBC (Bld) 21.9 % 19-41 [facility] Work Phone: [phone] Blood monocytes/100 leukocyt eson 05-17-2022 Monocytes/100 WBC (Bld) 8.8 % 0-10 [facility] Work Phone: Blood platelet mean volumeon 05-17-2022 Platelet mean volume (Bld) [Entitic vol] 11.1 fL 6.2-12.0 [facility] Work Phone: Determination of erythrocyte mean corpuscular volume (MCV)on 05-17-2022 MCV (RBC) [Entitic vol] 97.0 fL 81-99 [facility] Work Phone: [phone] Hematocrit Auto (Bld) [Volum e fraction]on 05-17-2022 Hematocrit (Bld) [Volume fraction] 41.4 % 37-47 [facility] Work Phone: Laboratory - Chemistry and C hemistry - challengeon 05-17-2022 CO2 [Moles/Vol] 30.0 mmol/L 21.0-32.0 [facility] Work Phone: Free T4 [Mass/Vol] 1.36 ng/dL 0.76-1.46 [facility] Work Phone: [phone] Urea nitrogen/Creatinine [Mass ratio] 20.0 mg/mg 10-20 [facility] Work Phone: [phone] Laboratory - Hematology and Cell countson 05-17-2022 Erythrocyte distribution width (RBC) [Entitic vol] 47.6 fL 35.1-43.9 [facility] Work Phone: [phone] Erythrocyte distribution width (RBC) [Ratio] 13.4 % 11.6-14.6 [facility] Work Phone: [phone] Immature granulocytes/100 WBC (Bld) 0.500 % 0.0-0.9 [facility] Work Phone: [phone] Comment on above: IG% - Immature Granu locytes (promyelocytes, myelocytes and metamyelocytes) > 1% indicates that a LEFT SHIFT is Present. MCH (RBC) [Entitic mass] 30.4 pg 27.0-32.0 [facility] Work Phone: [phone] Nucleated RBC/100 WBC (Bld) [Ratio] 0 % 0-5 [facility] Work Phone: [phone] MCHC Auto (RBC) [Mass/Vol]on 05-17-2022 MCHC (RBC) [Mass/Vol] 31.4 g/dL 32-36 [facility] Work Phone: No Panel Informationon 05-17 Estimated GFR (MDRD) Amer 96 mL/min >60 [facility] Work Phone: [phone] Comment on above: GFR Calc Estimated GFR (MDRD) Non-Af Amer 80 mL/min >60 [facility] Work Phone: [phone] Comment on above: Non- GFR Calc Thyroid Stimulating Hormone (TSH) 2.46 uIU/mL 0.358-3.74 [facility] Work Phone: Platelets bldon 05-17-2022 Platelets (Bld) [#/Vol] 106 10*3/uL 150-450 [facility] Work Phone: Serum or plasma calcium unruly urement (mass/volume)on 05-17-2022 Calcium [Mass/Vol] 8.7 mg/dL 8.5-10.1 [facility] Work Phone: Serum or plasma creatinine m easurement (mass/volume)on 05-17-2022 Creatinine [Mass/Vol] 0.75 mg/dL 0.55-1.02 [facility] Work Phone: Comment on above: The validity of the calculated GFR & GFRAA in patients over 70 years has not been determined. Clinical correlation is essential. Serum or plasma urea nitroge n measurement (mass/volume)on 05-17-2022 Urea nitrogen [Mass/Vol] 15 mg/dL 7-18 [facility] Work Phone: Thin prep Papanicolaou smear with manual screeningon 05-17-2022 Thin prep Papanicolaou smear with manual screening 4 5-15 [facility] Work Phone: Culture, urineon 03-07-2022 Bacteria identified Cx Nom (U) Positive [facility] Work Phone: Basophil percentageon 2021 Basophil percentage 0 SEEN /hpf 0-5 [facility] Work Phone: Bilirubin Test strip Ql (U)o n 02-13-2022 Bilirubin Ql (U) Negative Negative [facility] Work Phone: Calcium oxalate crystals det ection in urine sediment by light microscopyon 02-13-2022 Calcium oxalate crystals LM Ql (Urine sed) 1+ /hpf [facility] Work Phone: Culture, urineon 02-13-2022 Bacteria identified Cx Nom (U) Enterococcus faecalis [facility] Work Phone: Ketones Test strip Ql (U)on 02-13-2022 Ketones Ql (U) 5 mg/dl Negative [facility] Work Phone: Mucus LM Ql (Urine sed)on Mucus Ql (Urine sed) 0 SEEN /hpf [facility] Work Phone: Nitrite Test strip Ql (U)on 02-13-2022 Nitrite Ql (U) Negative Negative [facility] Work Phone: Protein Test strip Ql (U)on 02-13-2022 Protein Ql (U) 100 mg/dl Negative [facility] Work Phone: Squamous epithelial cells de tection in urine sediment by light microscopyon 02-13-2022 Epithelial cells.squamous LM Ql (Urine sed) 0 SEEN /hpf 5-10 [facility] Work Phone: Urine blood detectionon RBC Ql (U) 250 /ul Negative [facility] Work Phone: [phone] RBC Ql (U) > 100 SEEN /hpf 0-5 [facility] Work Phone: [phone] Urine clarityon 02-13-2022 Clarity (U) Cloudy Clear [facility] Work Phone: Urine color determinationon 02-13-2022 Color (U) Brown Yellow [facility] Work Phone: Urine glucose detectionon Glucose Ql (U) Normal mg/dl Normal [facility] Work Phone: Urine leukocyte esterase det ection by dipstickon 02-13-2022 Leukocyte esterase Test strip Ql (U) 25 /ul Negative [facility] Work Phone: Urine pHon 02-13-2022 pH (U) 6.5 [pH] 5.0 - 8.0 [facility] Work Phone: Urine sediment bacteria coun t by microscopy (number/high power field)on 02-13-2022 Bacteria LM.HPF (Urine sed) [#/Area] 1 /[HPF] None Seen [facility] Work Phone: Urine specific gravity measu rementon 02-13-2022 Specific gravity (U) [Rel density] 1.020 1.002-1.030 [facility] Work Phone: Urobilinogen Auto test strip Ql (U)on 02-13-2022 Urobilinogen Ql (U) 1 mg/dl Normal [facility] Work Phone: Absolute lymphocyte counton 01-10-2022 Lymphocytes Auto (Unsp spec) [#/Vol] 0.99 10*3/uL 0.83-4.51 [facility] Work Phone: Basophil percentageon 2021 Basophils/100 WBC (Bld) 0.5 % 0-1 [facility] Work Phone: Bilirubin [Mass/Vol] 0.70 mg/dL 0.20-1.00 [facility] Work Phone: Comment on above: For patients on eltr ombopag therapy, use of Dimension [place] TBIL is not recommended. Chloride [Moles/Vol] 104 mmol/L 98-107 [facility] Work Phone: Eosinophils/100 WBC (Bld) 1.0 % 0-5 [facility] Work Phone: Glucose [Mass/Vol] 85 mg/dL 74-106 [facility] Work Phone: Neutrophils (Bld) [#/Vol] 2.5 10*3/uL 2.0-7.7 [facility] Work Phone: Neutrophils/100 WBC (Bld) 63.4 % 47-70 [facility] Work Phone: Potassium [Moles/Vol] 4.1 mmol/L 3.5-5.1 [facility] Work Phone: Protein [Mass/Vol] 7.1 g/dL 6.4-8.2 [facility] Work Phone: Sodium [Moles/Vol] 139 mmol/L 136-145 [facility] Work Phone: WBC (Bld) [#/Vol] 4.0 10*3/uL 4.4-11.0 [facility] Work Phone: Blood erythrocytes count (nu mber/volume)on 01-10-2022 RBC (Bld) [#/Vol] 4.51 10*6/uL 4.2-5.4 [facility] Work Phone: Blood hemoglobin measurement (mass/volume)on 01-10-2022 Hemoglobin (Bld) [Mass/Vol] 14.1 g/dL 12.0-15.0 [facility] Work Phone: Blood lymphocytes/100 leukoc yteson 01-10-2022 Lymphocytes/100 WBC (Bld) 25.0 % 19-41 [facility] Work Phone: [phone] Blood monocytes/100 leukocyt eson 01-10-2022 Monocytes/100 WBC (Bld) 9.6 % 0-10 [facility] Work Phone: Blood platelet mean volumeon 01-10-2022 Platelet mean volume (Bld) [Entitic vol] 11.1 fL 6.2-12.0 [facility] Work Phone: Determination of erythrocyte mean corpuscular volume (MCV)on 01-10-2022 MCV (RBC) [Entitic vol] 94.2 fL 81-99 [facility] Work Phone: Erythrocyte sedimentation ra marcia 01-10-2022 ESR (Bld) [Velocity] 7 mm/h 0-30 [facility] Work Phone: Hematocrit Auto (Bld) [Volum e fraction]on 01-10-2022 Hematocrit (Bld) [Volume fraction] 42.5 % 37-47 [facility] Work Phone: Laboratory - Chemistry and C hemistry - challengeon 01-10-2022 ALP [Catalytic activity/Vol] 70 U/L 45-117 [facility] Work Phone: ALT [Catalytic activity/Vol] 51 U/L 13-56 [facility] Work Phone: CO2 [Moles/Vol] 32.0 mmol/L 21.0-32.0 [facility] Work Phone: Globulin (S) [Mass/Vol] 3.7 g/dL 2.2-4.2 [facility] Work Phone: Urea nitrogen/Creatinine [Mass ratio] 25.0 mg/mg 10-20 [facility] Work Phone: [phone] Laboratory - Hematology and Cell countson 01-10-2022 Erythrocyte distribution width (RBC) [Entitic vol] 45.2 fL 35.1-43.9 [facility] Work Phone: [phone] Erythrocyte distribution width (RBC) [Ratio] 13.0 % 11.6-14.6 [facility] Work Phone: [phone] Immature granulocytes/100 WBC (Bld) 0.500 % 0.0-0.9 [facility] Work Phone: [phone] Comment on above: IG% - Immature Granu locytes (promyelocytes, myelocytes and metamyelocytes) > 1% indicates that a LEFT SHIFT is Present. MCH (RBC) [Entitic mass] 31.3 pg 27.0-32.0 [facility] Work Phone: [phone] Nucleated RBC/100 WBC (Bld) [Ratio] 0 % 0-5 [facility] Work Phone: [phone] MCHC Auto (RBC) [Mass/Vol]on 01-10-2022 MCHC (RBC) [Mass/Vol] 33.2 g/dL 32-36 [facility] Work Phone: [phone] No Panel Informationon 01-10 Estimated GFR (MDRD) Amer 116 mL/min >60 [facility] Work Phone: [phone] Comment on above: GFR Calc Estimated GFR (MDRD) Non-Af Amer 96 mL/min >60 [facility] Work Phone: [phone] Comment on above: Non- GFR Calc Platelets bldon 01-10-2022 Platelets (Bld) [#/Vol] 114 10*3/uL 150-450 [facility] Work Phone: [phone] Serum or plasma C reactive p rotein measurement (mass/volume)on 01-10-2022 CRP [Mass/Vol] mg/L 0.0-3.0 [facility] Work Phone: [phone] Comment on above: C-Reactive Protein ( CRP) provides useful information for thediagnosis, therapy and monitoring of inflammatory processesand associated diseases. For the evaluation of Relative Riskfor Cardiovascular Disease, a High Sensitivity CRP (HSCRP)should be ordered. Serum or plasma albumin unruly urement (mass/volume)on 01-10-2022 Albumin [Mass/Vol] 3.4 g/dL 3.2-5.0 [facility] Work Phone: Serum or plasma albumin/glob ulin mass ratioon 01-10-2022 Albumin/Globulin [Mass ratio] 0.9 {ratio} 0.9-2.4 [facility] Work Phone: [phone] Serum or plasma calcium unruly urement (mass/volume)on 01-10-2022 Calcium [Mass/Vol] 8.8 mg/dL 8.5-10.1 [facility] Work Phone: Serum or plasma creatinine m easurement (mass/volume)on 01-10-2022 Creatinine [Mass/Vol] 0.64 mg/dL 0.55-1.02 [facility] Work Phone: Comment on above: The validity of the calculated GFR & GFRAA in patients over 70 years has not been determined. Clinical correlation is essential. Serum or plasma urea nitroge n measurement (mass/volume)on 01-10-2022 Urea nitrogen [Mass/Vol] 16 mg/dL 7-18 [facility] Work Phone: Thin prep Papanicolaou smear with manual screeningon 01-10-2022 Thin prep Papanicolaou smear with manual screening 48 U/L 15-37 [facility] Work Phone: [phone] Thin prep Papanicolaou smear with manual screening 3 5-15 [facility] Work Phone: [phone] Lab Report: Prothrombin Time w/INRon 12-02-2017 Coagulation tissue factor induced in platelet poor plasma 18.7 s High 11.7-14.9 [facility] Work Phone: [phone] INR in blood by coagulation 1.6 {INR} Invalid Interpretation Code [facility] Work Phone: [phone] Lab Report: Prothrombin Time w/INRon 11-28-2017 Coagulation tissue factor induced in platelet poor plasma 40.9 s High 11.7-14.9 [facility] Work Phone: [phone] INR in blood by coagulation 4.5 {INR} Critically high [facility] Work Phone: [phone] Lab Report: Prothrombin Time w/INRon 11-25-2017 Coagulation tissue factor induced in platelet poor plasma 50.3 s High 11.7-14.9 [facility] Work Phone: [phone] INR in blood by coagulation 5.8 {INR} Critically high [facility] Work Phone: [phone] Lab Report: T4 Total, Thyrox inon 07-08-2017 T4 mass conc 12.3 ug/dL Invalid Interpretation Code 4.8-13.9 [facility] Work Phone: [phone] Lab Report: Thyroid Stim Hor pearl (TSH)on 07-08-2017 Thyrotropin Qn 1.13 u[iU]/mL Invalid Interpretation Code 0.358-3.74 [facility] Work Phone: [phone] Office Visit: [facility] 07-08-20 17 Documentation of current medications (procedure) Done Invalid Interpretation Code [facility] Work Phone: [phone] Protein mass conc Done [facility] Work Phone: [phone] Tobacco smoking status AKIS Tobacco smoking status [facility] Invalid Interpretation Code [facility] Work Phone: [phone] Tobacco smoking status [facility] Never smoker [facility] Work Phone: [phone] Tobacco use [facility] Never smoker Invalid Interpretation Code [facility] Work Phone: [phone] Lab Report: Basic Metabolic Profile (BMP)on 05-06-2017 Anion gap 6 mmol/L Invalid Interpretation Code 5-15 [facility] Work Phone: [phone] Anion gap molar conc 6 mmol/L 5-[address] [facility] Work Phone: [phone] BUN/Creatinine Ratio 19.0 RATIO Invalid Interpretation Code 10-20 [facility] Work Phone: [phone] Calcium 8.7 mg/dL Invalid Interpretation Code 8.5-10.1 [facility] Work Phone: [phone] Chloride 102 mmol/L Invalid Interpretation Code 98-107 [facility] Work Phone: [phone] CO2 31.0 mmol/L Invalid Interpretation Code 21.0-32.0 [facility] Work Phone: [phone] CO2 ppres (BldV) 31.0 mmol/L 21.0-32.0 [facility] Work Phone: [phone] Creatinine 0.89 mg/dL Invalid Interpretation Code 0.55-1.02 [facility] Work Phone: [phone] eGFR (non-black) 80 mL/min/{1.73_m2} Invalid Interpretation Code >60 [facility] Work Phone: [phone] eGFR (non-black) 66 mL/min/{1.73_m2} Invalid Interpretation Code >60 [facility] Work Phone: [phone] EST GFR - AA 80 mL/min >60 [facility] Work Phone: [phone] Glucose 107 mg/dL Invalid Interpretation Code 70-110 [facility] Work Phone: [phone] Glucose mass conc 107 mg/dL 70-110 [facility] Work Phone: [phone] Potassium 3.9 mmol/L Invalid Interpretation Code 3.5-5.1 [facility] Work Phone: [phone] Sodium 139 mmol/L Invalid Interpretation Code 136-145 [facility] Work Phone: [phone] Urea nitrogen 17 mg/dL Invalid Interpretation Code 7-18 [facility] Work Phone: [phone] Lab Report: Lipid Profileon 05-06-2017 Cholesterol 226 mg/dL High 200 [facility] Work Phone: [phone] HDL Cholesterol 65 mg/dL Invalid Interpretation Code [facility] Work Phone: [phone] LDL Cholesterol 141 mg/dL High 0-130 [facility] Work Phone: [phone] Triglyceride 100 mg/dL Invalid Interpretation Code [facility] Work Phone: [phone] very low density lipoproteins 20 mg/dL Invalid Interpretation Code 5-40 [facility] Work Phone: [phone] Lab Report: Liver Profileon 05-06-2017 Alanine aminotransferase (ALT) 27 U/L Invalid Interpretation Code 12-78 [facility] Work Phone: [phone] Albumin 3.6 g/dL Invalid Interpretation Code 3.4-5.0 [facility] Work Phone: [phone] Alkaline phosphatase (ALP) 114 U/L Invalid Interpretation Code 45-117 [facility] Work Phone: [phone] ALP enzyme act/vol (Bld) 114 U/L 45-117 [facility] Work Phone: [phone] Aspartate aminotransferase (AST) 25 U/L Invalid Interpretation Code 15-37 [facility] Work Phone: [phone] Bilirubin (direct) 0.13 mg/dL Invalid Interpretation Code 0.00-0.30 [facility] Work Phone: [phone] Bilirubin (total) 0.70 mg/dL Invalid Interpretation Code 0.20-1.00 [facility] Work Phone: [phone] Globulin 4.2 g/dL High 2.3-3.5 [facility] Work Phone: [phone] Globulin mass conc (S) 4.2 g/dL High 2.3-3.5 [facility] Work Phone: [phone] Protein 7.8 g/dL Invalid Interpretation Code 6.4-8.2 [facility] Work Phone: [phone] Lab Report: Lipid Profileon 01-07-2017 Cholesterol [Mass/Vol] 222 mg/dL High 200 [facility] Work Phone: [phone] Cholesterol in HDL [Mass/Vol] 71 mg/dL [facility] Work Phone: [phone] Cholesterol in LDL [Mass/Vol] 130 mg/dL 0-130 [facility] Work Phone: [phone] Lipoprotein.pre-beta [Mass/Vol] 21 mg/dL 5-40 [facility] Work Phone: [phone] Triglyceride [Mass/Vol] 105 mg/dL [facility] Work Phone: [phone] Lab Report: Liver Profileon 01-07-2017 Albumin [Mass/Vol] 3.8 g/dL 3.4-5.0 [facility] Work Phone: [phone] ALP (Bld) [Catalytic activity/Vol] 112 U/L 45-117 [facility] Work Phone: [phone] ALT [Catalytic activity/Vol] 25 U/L 12-78 [facility] Work Phone: [phone] AST [Catalytic activity/Vol] 22 U/L 15-37 [facility] Work Phone: [phone] Bilirubin [Mass/Vol] 0.60 mg/dL 0.20-1.[address] [facility] [address] [facility] Work Phone: [phone] Bilirubin.direct [Mass/Vol] 0.14 mg/dL 0.00-0.30 [facility] Work Phone: [phone] Globulin (S) [Mass/Vol] 4.1 g/dL High 2.3-3.5 [facility] Work Phone: [phone] Protein [Mass/Vol] 7.9 g/dL 6.4-8.2 [facility] Work Phone: [phone] Lab Report: T4 Total, Thyrox inon 01-07-2017 T4 [Mass/Vol] 13.3 ug/dL Invalid Interpretation Code 4.8-13.9 [facility] Work Phone: [phone]) Lab Report: Thyroid Stim Hor pearl (TSH)on 01-07-2017 TSH Qn 1.41 u[iU]/mL 0.358-3.74 [facility] Work Phone: [phone] Office Visiton 01-07-2017 Dietary management education, guidance, and counseling (procedure) yes Invalid Interpretation Code [facility] Work Phone: [phone] Documentation of current medications (procedure) Done Invalid Interpretation Code [facility] Work Phone: [phone] Replaced Document: [facility] E CG Observationson 01-07-2017 EKG QRS axis 26 deg [facility] Work Phone: [phone] electrocardiogram interpretation Sinus Rhythm - Nonspecific T-abnormality. ABNORMAL Invalid Interpretation Code [facility] Work Phone: GE use only - for [employer] import when terms are not otherwise specified 442 ms Invalid Interpretation Code [facility] Phone: [phone] Interpretation Sinus Rhythm - Nonspecific T-abnormality. ABNORMAL [facility] Work Phone: [phone] P [place] 32 deg [facility] Work Phone: [phone] P wave axis, electrocardiogram 32 deg Invalid Interpretation Code [facility] Work Phone: [phone] ND Interval 138 ms [facility] Work Phone: [phone] ND interval, electrocardiogram 138 ms Invalid Interpretation Code [facility] Work Phone: [phone] Pulse (Heart Rate) 74 /min Invalid Interpretation Code [facility] Phone: [phone] QRS axis, electrocardiogram 26 deg Invalid Interpretation Code [facility] Phone: [phone] QRS Duration 88 ms [facility] Phone: [phone] QRS duration, electrocardiogram 88 ms Invalid Interpretation Code [facility] Phone: [phone] QT Interval new path ms [facility] Work Phone: [phone] QT interval, electrocardiogram new path ms Invalid Interpretation Code [facility] Phone: [phone] QTc [place] 442 ms [facility] Work Phone: [phone] T [place] 90 deg [facility] Phone: [phone] T wave axis, electrocardiogram 90 deg Invalid Interpretation Code [facility] Phone: [phone] 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 Left ventricular Ejection fraction 60 % Invalid Interpretation Code [facility] Phone: [phone] Office Visit: [facility] 10-26-20 15 Tobacco smoking status NHIS Never smoker [employer] Phone: [phone] Tobacco use CPHS Never smoker Invalid Interpretation Code [facility] Phone: [phone] Office Visiton 09-15-2015 cardiac risk group B Invalid Interpretation Code [facility] Phone: [phone] General cardiovascular disease 10Y risk [#] [place] 11 % Invalid Interpretation Code [facility] Work Phone: [phone] 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 Anion gap [Moles/Vol] 8 mmol/L [facility] Work Phone: [phone] Chloride [Moles/Vol] 105 mmol/L [facility] Work Phone: [phone] CO2 (BldV) [Partial pressure] 28.0 mmol/L [facility] Work Phone: [phone] Creatinine [Mass/Vol] 1.04 mg/dL [facility] Work Phone: [phone] Erythrocytes (RBC) 4.51 10*6/uL Invalid Interpretation Code [facility] Work Phone: [phone] Hematocrit (Bld) [Volume fraction] 36.3 % Low [facility] Work Phone: [phone] Hematocrit (HCT) 36.3 % Low [facility] Work Phone: [phone] Hemoglobin (Bld) [Mass/Vol] 11.1 g/dL Low [facility] Work Phone: [phone] MCH 24.6 pg Low [facility] Work Phone: [phone] MCH (RBC) [Entitic mass] 24.6 pg Low [facility] Work Phone: [phone] MCHC 30.6 g/dL Low [facility] Work Phone: [phone] MCHC (RBC) [Mass/Vol] 30.6 g/dL Low [facility] Work Phone: [phone]) MCV 80.5 fL Low [facility] Work Phone: [phone] MCV (RBC) [Entitic vol] 80.5 fL Low [facility] Work Phone: [phone] Platelets 185 10*3/mm3 Invalid Interpretation Code [facility] Work Phone: [phone] Platelets (Bld) [#/Vol] 185 10*3/mm3 [facility] Work Phone: [phone] Potassium [Moles/Vol] 3.7 mmol/L [facility] Work Phone: [phone]) RBC (Bld) [#/Vol] 4.51 10*6/uL [facility] Work Phone: [phone] Sodium [Moles/Vol] 141 mmol/L [facility] Work Phone: [phone] Urea nitrogen [Mass/Vol] 21 mg/dL [facility] Work Phone: [phone] Urea nitrogen/Creatinine [Mass ratio] 20.2 mg/mg [facility] Work Phone: [phone] WBC (Bld) [#/Vol] 7.8 10*3/uL [facility] Work Phone: [phone] WBC (Leukocytes) 7.8 10*3/uL Invalid Interpretation Code [facility] Work Phone: [phone] Culture, urine Bacteria identified Cx Nom (U) Enterococcus faecalis [facility] Work Phone: Bacteria identified Cx Nom (U) Positive [facility] Work Phone: [phone] Bacteria identified Cx Nom (U) Presumptive E. coli [facility] Work Phone: [phone] Bacteria identified Cx Nom (U) Escherichia coli [facility] Work Phone: [phone] Panel Information Nasal Screen MRSA/MSSA [facility] Work Phone: Vital Signs Date Time Vital Sign Value Performing Clinician Nani trimble 05-25-2025 13:23-0400 Body height 152.4 cm Vinita Thakur MD Work Phone: [facility] 05-25-2025 13:23-0400 Body mass index (BMI) [Ratio] 22.89 kg/m2 Vinita Thakur MD Work Phone: [facility] 05-25-2025 13:23-0400 Body weight 53.16 kg Vinita Thakur MD Work Phone: [facility] 05-25-2025 13:23-0400 Diastolic blood pressure 82 mm[Hg] Vinita Thakur MD Work Phone: [facility] 05-25-2025 13:23-0400 Heart rate 103 /min Vinita Thakur MD Work Phone: [facility] 05-25-2025 13:23-0400 SaO2% (BldA) [Mass fraction] 97 % Vinita Thakur MD Work Phone: [facility] 05-25-2025 13:23-0400 Systolic blood pressure 130 mm[Hg] Vinita Thakur MD Work Phone: [facility] 2025 14:41-0400 Body height 152.[address] Rip De La Garza MD Work Phone: [facility] 2025 14:41-0400 Body mass index (BMI) [Ratio] 22.1 kg/m2 Dr. Rip De La Garza MD Work Phone: [facility] 2025 14:41-0400 Body weight 51.[address] Rip De La Garza MD Work Phone: [facility] 03-13-2025 14:29-0400 Body temperature 97.9 [degF] Dr. Rip De La Garza MD Work Phone: [facility] 03-13-2025 14:29-0400 Diastolic blood pressure 100 mm[Hg] Dr. Rip De La Garza MD Work Phone: [facility] 03-13-2025 14:29-0400 Heart rate 89 /min Dr. Rip De La Garza MD Work Phone: [facility] 03-13-2025 14:29-0400 Respiratory rate 18 /min Dr. Rip De La Garza MD Work Phone: [facility] 03-13-2025 14:29-0400 SaO2% (BldA) [Mass fraction] 96 % Dr. Rip De La Garza MD Work Phone: [facility] 03-13-2025 14:29-0400 Systolic blood pressure 150 mm[Hg] Dr. Rip De La Garza MD Work Phone: [facility] 03-13-2025 05:19-0400 Body mass index (BMI) [Ratio] 23.6 kg/m2 Dr. Rip De La Garza MD Work Phone: [facility] 03-13-2025 05:19-0400 Body weight 54.[address] Rip De La Garza MD Work Phone: [facility] 08-17-2024 13:46-0400 Body temperature 97.39 [degF] Pratima Halderman-Mckeon PT Work Phone: [facility] 08-17-2024 13:46-0400 Diastolic blood pressure 80 mm[Hg] Pratima Halderman-Mckeon PT Work Phone: [facility] 08-17-2024 13:46-0400 Heart rate 100 /min Pratima Halderman-Mckeon PT Work Phone: [facility] 08-17-2024 13:46-0400 Respiratory rate 16 /min Pratima Halderman-Mckeon PT Work Phone: [facility] 08-17-2024 13:46-0400 SaO2% (BldA) [Mass fraction] 97 % Pratima Halderman-Mckeon PT Work Phone: [facility] 08-17-2024 13:46-0400 Systolic blood pressure 120 mm[Hg] Pratima Halderman-Mckeon PT Work Phone: [facility] 08-11-2024 12:09-0400 Body temperature 97.3 [degF] Frances Hugo RESPITE COORDINATOR Work Phone: [facility] 08-11-2024 12:09-0400 Diastolic blood pressure 84 mm[Hg] Frances Hugo RESPITE COORDINATOR Work Phone: [facility] 08-11-2024 12:09-0400 Heart rate 99 /min Frances Hugo RESPITE COORDINATOR Work Phone: [facility] 08-11-2024 12:09-0400 Respiratory rate 18 /min Frances Hugo RESPITE COORDINATOR Work Phone: [facility] 08-11-2024 12:09-0400 SaO2% (BldA) [Mass fraction] 99 % Frances Hugo RESPITE COORDINATOR Work Phone: [facility] 08-11-2024 12:09-0400 Systolic blood pressure 128 mm[Hg] Frances Hugo RESPITE COORDINATOR Work Phone: [facility] 08-04-2024 13:20-0400 Body temperature 98.01 [degF] Pratima Legerhafsacrystal-Mckeon PT Work Phone: [facility] 08-04-2024 13:20-0400 Diastolic blood pressure 76 mm[Hg] Pratima Halhafsacrystal-Mckeon PT Work Phone: [facility] 08-04-2024 13:20-0400 Heart rate 92 /min Pratima Arsenadrian-Mckeon PT Work Phone: [facility] 08-04-2024 13:20-0400 Respiratory rate 16 /min Pratima Arsenhafsacrystal-Mckeon PT Work Phone: [facility] 08-04-2024 13:20-0400 SaO2% (BldA) [Mass fraction] 99 % Pratima Tenorio-Mckeon PT Work Phone: [facility] 08-04-2024 13:20-0400 Systolic blood pressure 128 mm[Hg] Pratima Tenorio-Mckeon PT Work Phone: [facility] 07-29-2024 13:14-0400 Body temperature 97.39 [degF] Frances Hugo RESPITE COORDINATOR Work Phone: [facility] 07-29-2024 13:14-0400 Diastolic blood pressure 88 mm[Hg] Frances Hugo RESPITE COORDINATOR Work Phone: [facility] 07-29-2024 13:14-0400 Heart rate 89 /min Frances Hugo RESPITE COORDINATOR Work Phone: [facility] 07-29-2024 13:14-0400 Respiratory rate 18 /min Frances Hugo RESPITE COORDINATOR Work Phone: [facility] 07-29-2024 13:14-0400 SaO2% (BldA) [Mass fraction] 98 % Frances Hugo RESPITE COORDINATOR Work Phone: [facility] 07-29-2024 13:14-0400 Systolic blood pressure 128 mm[Hg] Frances Hugo RESPITE COORDINATOR Work Phone: [facility] 07-23-2024 10:26-0400 Body temperature 97 [degF] Felicia Gerstenslager O T Work Phone: [facility] 07-23-2024 10:26-0400 Diastolic blood pressure 82 mm[Hg] Felicia Gerstenslager OT Work Phone: [facility] 07-23-2024 10:26-0400 Heart rate 90 /min Felicia Gerstenslager O T Work Phone: [facility] 07-23-2024 10:26-0400 SaO2% (BldA) [Mass fraction] 99 % Felicia Gerstenslager OT Work Phone: [facility] 07-23-2024 10:26-0400 Systolic blood pressure 128 mm[Hg] Felicia Gerstenslager OT Work Phone: [facility] 07-22-2024 14:18-0400 Diastolic blood pressure 72 mm[Hg] Chevy Rufener PT Work Phone: [facility] 07-22-2024 14:18-0400 Heart rate 99 /min Chevy Rufener PT Work Phone: [facility] 07-22-2024 14:18-0400 Respiratory rate 16 /min Chevy Rufener PT Work Phone: [facility] 07-22-2024 14:18-0400 SaO2% (BldA) [Mass fraction] 98 % Chevy Rufener PT Work Phone: [facility] 07-22-2024 14:18-0400 Systolic blood pressure 132 mm[Hg] Chevy Rufener PT Work Phone: [facility] 07-22-2024 14:02-0400 Body temperature 97.81 [degF] Chevy Rufener PT Work Phone: [facility] 07-17-2024 13:46-0400 Heart rate 100 /min Anna Clancey OTR/L Work Phone: [facility] 07-17-2024 13:46-0400 SaO2% (BldA) [Mass fraction] 98 % Anna Clancey OTR/L Work Phone: [facility] 07-17-2024 13:34-0400 Body temperature 98.71 [degF] Anna Clancey OTR/L Work Phone: [facility] 07-17-2024 13:34-0400 Diastolic blood pressure 78 mm[Hg] Anna Clancey OTR/L Work Phone: [facility] 07-17-2024 13:34-0400 Systolic blood pressure 116 mm[Hg] Anna Clancey OTR/L Work Phone: [facility] 07-16-2024 15:52-0400 Body temperature 96.91 [degF] Pratima Personman-Mckeon PT Work Phone: [facility] 07-16-2024 15:52-0400 Diastolic blood pressure 84 mm[Hg] Pratima Halderman-Mckeon PT Work Phone: [facility] 07-16-2024 15:52-0400 Heart rate 100 /min Pratima Halderman-Mckeon PT Work Phone: [facility] 07-16-2024 15:52-0400 Respiratory rate 16 /min Pratima Halderman-Mckeon PT Work Phone: [facility] 07-16-2024 15:52-0400 SaO2% (BldA) [Mass fraction] 99 % Pratima Legerderman-Mckeon PT Work Phone: [facility] 07-16-2024 15:52-0400 Systolic blood pressure 140 mm[Hg] Pratima Halderman-Mckeon PT Work Phone: [facility] 07-15-2024 10:29-0400 Body temperature 97 [degF] Pratima Veras PT Work Phone: [facility] 07-15-2024 10:29-0400 Diastolic blood pressure 70 mm[Hg] Pratima Veras PT Work Phone: [facility] 07-15-2024 10:29-0400 Heart rate 78 /min Pratima Veras PT Work Phone: [facility] 07-15-2024 10:29-0400 Respiratory rate 16 /min Pratima HalDomingo PT Work Phone: [facility] 07-15-2024 10:29-0400 SaO2% (BldA) [Mass fraction] 97 % Pratima Veras PT Work Phone: [facility] 07-15-2024 10:29-0400 Systolic blood pressure 132 mm[Hg] Pratima Veras PT Work Phone: [facility] 01-29-2024 12:27-0400 Body height 152.[address] Rip De La Garza Work Phone: [facility] 01-29-2024 12:27-0400 Body mass index (BMI) [Ratio] 22.8 kg/m2 Dr. Rip De La Garza Work Phone: [facility] 01-29-2024 12:27-0400 Body weight 53.[address] Rip De La Garza Work Phone: [facility] 01-29-2024 12:27-0400 Diastolic blood pressure 70 mm[Hg] Dr. Rip De La Garza Work Phone: [facility] 01-29-2024 12:27-0400 Heart rate 89 /min Dr. Rip De La Garza Work Phone: [facility] 01-29-2024 12:27-0400 Systolic blood pressure 128 mm[Hg] Dr. Rip De La Garza Work Phone: [facility] 12-20-2023 10:33-0500 Body mass index (BMI) [Ratio] 22.8 kg/m2 Dr. Rip De La Garza Work Phone: [facility] 12-20-2023 10:33-0500 Body temperature 98.6 [degF] Dr. Rip De La Garza Work Phone: [facility] 12-20-2023 10:33-0500 Body weight 53.[address] Rip De La Garza Work Phone: [facility] 12-20-2023 10:33-0500 Diastolic blood pressure 86 mm[Hg] Dr. Rip De La Garza Work Phone: [facility] 12-20-2023 10:33-0500 Heart rate 102 /min Dr. Rip De La Garza Work Phone: [facility] 12-20-2023 10:33-0500 Respiratory rate 18 /min Dr. Rip De La Garza Work Phone: [facility] 12-20-2023 10:33-0500 SaO2% (BldA) [Mass fraction] 97 % Dr. Rip De La Garza Work Phone: [facility] 12-20-2023 10:33-0500 Systolic blood pressure 134 mm[Hg] Dr. Rip De La Garza Work Phone: [facility] 12-18-2023 13:01-0500 Body mass index (BMI) [Ratio] 23.4 kg/m2 Dr. Rip De La Garza Work Phone: [facility] 12-18-2023 13:01-0500 Body weight 54.[address] Rip De La Garza Work Phone: [facility] 12-18-2023 13:01-0500 Diastolic blood pressure 91 mm[Hg] Dr. Rip De La Garza Work Phone: [facility] 12-18-2023 13:01-0500 Heart rate 105 /min Dr. Rip De La Garza Work Phone: [facility] 12-18-2023 13:01-0500 Respiratory rate 18 /min Dr. Rip De La Garza Work Phone: [facility] 12-18-2023 13:01-0500 SaO2% (BldA) [Mass fraction] 95 % Dr. Rip De La Garza Work Phone: [facility] 12-18-2023 13:01-0500 Systolic blood pressure 136 mm[Hg] Dr. Rip De La Garza Work Phone: [facility] 10-12-2023 20:37-0500 Body temperature 98 [degF] [facility] 10-12-2023 20:37-0500 Diastolic blood pressure 98 mm[Hg] [facility] 10-12-2023 20:37-0500 Heart rate 98 /min [facility] 10-12-2023 20:37-0500 Respiratory rate 16 /min [facility] 10-12-2023 20:37-0500 SaO2% (BldA) [Mass fraction] 98 % [facility] 10-12-2023 20:37-0500 Systolic blood pressure 144 mm[Hg] [facility] 10-12-2023 14:55-0500 Body height 152.4 cm [facility] 10-12-2023 14:55-0500 Body mass index (BMI) [Ratio] 23.3 kg/m2 [facility] 10-12-2023 14:55-0500 Body weight 54.15 kg [facility] 10-02-2022 13:42-0500 Body temperature 98.9 [degF] Dr. Rip De La Garza Work Phone: [facility] Work Phone: 10-02-2022 13:42-0500 Diastolic blood pressure 61 mm[Hg] Dr. Rip De La Garza Work Phone: [facility] Work Phone: 10-02-2022 13:42-0500 Heart rate 84 /min Dr. Rip De La Garza Work Phone: [facility] Work Phone: 10-02-2022 13:42-0500 Respiratory rate 18 /min Dr. Rip De La Garza Work Phone: [facility] Work Phone: 10-02-2022 13:42-0500 SaO2% (BldA) [Mass fraction] 98 % Dr. Rip De La Garza Work Phone: [facility] Work Phone: 10-02-2022 13:42-0500 Systolic blood pressure 114 mm[Hg] Dr. Rip De La Garza Work Phone: [facility] Work Phone: 10-01-2022 18:10-0500 Body height 152.[address] Rip De La Garza Work Phone: [facility] Work Phone: 10-01-2022 18:10-0500 Body mass index (BMI) [Ratio] 21.4 kg/m2 Dr. Rip De La Garza Work Phone: [facility] Work Phone: 10-01-2022 18:10-0500 Body weight 49.[address] Rip De La Garza Work Phone: [facility] Work Phone: 10-01-2022 12:45-0500 Inhaled oxygen flow rate 4 L/min Dr. Rip De La Garza Work Phone: [facility] Work Phone: 08-01-2022 16:49-0400 Body temperature 98.3 [degF] Dr. Rip De La Garza Work Phone: [facility] Work Phone: 08-01-2022 16:49-0400 Diastolic blood pressure 76 mm[Hg] Dr. Rip De La Garza Work Phone: [facility] Work Phone: 08-01-2022 16:49-0400 Heart rate 81 /min Dr. Rip De La Garza Work Phone: [facility] Work Phone: 08-01-2022 16:49-0400 Respiratory rate 16 /min Dr. Rip De La Garza Work Phone: [facility] Work Phone: 08-01-2022 16:49-0400 SaO2% (BldA) [Mass fraction] 95 % Dr. Rip De La Garza Work Phone: [facility] Work Phone: 08-01-2022 16:49-0400 Systolic blood pressure 140 mm[Hg] Dr. Rip De La Garza Work Phone: [facility] Work Phone: 08-01-2022 12:27-0400 Body height 152.[address] Rip De La Garza Work Phone: [facility] Work Phone: 08-01-2022 12:27-0400 Body mass index (BMI) [Ratio] 19.8 kg/m2 Dr. Rip De La Garza Work Phone: [facility] Work Phone: 08-01-2022 12:27-0400 Body weight 46.[address] Rip De La Garza Work Phone: [facility] Work Phone: 07-12-2022 11:00-0400 Body height 154.[address] Rip De La Garza Work Phone: [facility] Work Phone: 07-12-2022 11:00-0400 Body mass index (BMI) [Ratio] 20.2 kg/m2 Dr. Rip De La Garza Work Phone: [facility] Work Phone: 07-12-2022 11:00-0400 Body temperature 97.2 [degF] Dr. Rip De La Garza Work Phone: [facility] Work Phone: 07-12-2022 11:00-0400 Body weight 48.[address] Rip De La Garza Work Phone: [facility] Work Phone: 07-12-2022 11:00-0400 Diastolic blood pressure 65 mm[Hg] Dr. Rip De La Garza Work Phone: [facility] Work Phone: 07-12-2022 11:00-0400 Heart rate 72 /min Dr. Rip De La Garza Work Phone: [facility] Work Phone: 07-12-2022 11:00-0400 Respiratory rate 16 /min Dr. Rip De La Garza Work Phone: [facility] Work Phone: 07-12-2022 11:00-0400 SaO2% (BldA) [Mass fraction] 96 % Dr. Rip De La Garza Work Phone: [facility] Work Phone: 07-12-2022 11:00-0400 Systolic blood pressure 129 mm[Hg] Dr. Rip De La Garza Work Phone: [facility] Work Phone: 05-17-2022 08:32-0400 Body height 154.[address] Rip De La Garza Work Phone: [facility] Work Phone: 05-17-2022 08:32-0400 Body mass index (BMI) [Ratio] 21.3 kg/m2 Dr. Rip De La Garza Work Phone: [facility] Work Phone: 05-17-2022 08:32-0400 Body weight 51.[address] Rip De La Garza Work Phone: [facility] Work Phone: 05-17-2022 08:32-0400 Diastolic blood pressure 76 mm[Hg] Dr. Rip De La Garza Work Phone: [facility] Work Phone: 05-17-2022 08:32-0400 Heart rate 69 /min Dr. Rip De La Garza Work Phone: [facility] Work Phone: 05-17-2022 08:32-0400 Respiratory rate 18 /min Dr. Rip De La Garza Work Phone: [facility] Work Phone: 05-17-2022 08:32-0400 SaO2% (BldA) [Mass fraction] 95 % Dr. Rip De La Garza Work Phone: [facility] Work Phone: 05-17-2022 08:32-0400 Systolic blood pressure 134 mm[Hg] Dr. Rip De La Garza Work Phone: [facility] Work Phone: 05-02-2022 13:57-0400 Body height 152.4 cm Snehal Cross MD Work Phone: [facility] 05-02-2022 13:57-0400 Body weight 51.53 kg Snehal Cross MD Work Phone: [facility] 05-02-2022 13:57-0400 Diastolic blood pressure 63 mm[Hg] Snehal Cross MD Work Phone: [facility] 05-02-2022 13:57-0400 Heart rate 69 /min Snehal Cross MD Work Phone: [facility] 05-02-2022 13:57-0400 SaO2% (BldA) [Mass fraction] 98 % Snehal Cross MD Work Phone: [facility] 05-02-2022 13:57-0400 Systolic blood pressure 130 mm[Hg] Snehal Cross MD Work Phone: [facility] 03-21-2022 10:48-0400 Body height 154.94 cm [facility] Work Phone: 07-08-2017 10:23-0400 BMI (Body Mass Index) 24.72 kg/m2 Lauryn Thompson RN [facility] Work Phone: 07-08-2017 10:23-0400 BP Diastolic 68 mm[Hg] Lauryn Thompson RN [facility] Work Phone: 07-08-2017 10:23-0400 BP Systolic 138 mm[Hg] Lauryn Thompson RN [facility] Work Phone: 07-08-2017 10:0400 Height 156.21 cm Lauryn Thompson RN [facility] Work Phone: 07-08-2017 10:-0400 Pulse (Heart Rate) 80 /min Lauryn Thompson RN [facility] Work Phone: 07-08-2017 10:-0400 Respiratory Rate 18 /min Lauryn Thompson RN [facility] Work Phone: 07-08-2017 10:0400 Weight [...] BP Diastolic 72 mm[Hg] Jack Duran MD [facility] Work Phone: 01-07-2017 13:01-0500 BP Systolic 128 mm[Hg] Jack Duran MD [facility] Work Phone: 01-07-2017 13:01-0500 BSA (Body Surface Area) 1.62 m2 Jack Duran MD [facility] Work Phone: 01-07-2017 13:01-0500 Pulse (Heart Rate) 72 /min [facility] Work Phone: 01-07-2017 13:01-0500 Respiratory Rate 18 /min Jack Duran MD [facility] Work Phone: 01-07-2017 13:01-0500 Weight 62.6 kg Jack Duran MD [facility] Work Phone: 09-15-2015 13:36-0500 Height 156.21 cm Jack Duran MD [facility] Work Phone: Encounters Encounter Date Encounter Type Care Provider Facility Start: 05-25-2025 End: 05-25-2025 Office outpatient visit 25 minutes Vinita Thakur MD Work Phone: [facility] Comment on above: Typical atrial flutt er (HCC) (Primary Dx); Longstanding persistent atrial fibrillation (HCC); Congenital heart disease; Essential hypertension; Paraspinal hematoma; CLARISSE on CPAP Start: 05-25-2025 End: 05-25-2025 ambulatory [facility] Start: 05-19-2025 End: 05-19-[address] Rip De La Garza MD Work Phone: -Physical Therapy Start: 05-19-2025 End: 05-19-[address] Juan Manuel Martinez MD -Physical Therapy Work Phone: Start: 2025 End: [address] Juan Manuel Martinez MD -[facility] Work Phone: Start: 2025 End: 2025 ambulatory uJan Manuel Martinez Facility:[facility] Start: 03-13-2025 Non-patient / Non-visit Dr. Anthony Owen MD -[facility] Work Phone: Start: 03-13-2025 End: 03-13-2025 ambulatory Rip De La Garza Facility:[facility] Start: 03-13-2025 End: 03-13-2025 Non-patient / Non-visit Dr. Cory Montes MD -[facility] Work Phone: Start: 03-12-2025 Non-patient / Non-visit Dr. Quincy Martin MD -[facility] Start: 03-12-2025 End: 03-13-2025 ambulatory Quincy Martin Facility:[facility] Start: 03-12-2025 End: 03-13-2025 Evaluation and management of inpatient Dr. Anthony Owen MD -Pro[facility] Care Unit Work Phone: Start: 02-03-2025 ambulatory Rip De La Garza Facility:[facility] Start: 01-26-2025 End: 01-26-[address] Rip De La Garza MD Work Phone: [facility] Work Phone: Start: 01-26-2025 End: 01-26-[address] Rip De La Garza MD -[facility] Work Phone: Start: 01-26-2025 End: 01-26-2025 ambulatory Rip De La Garza Facility:[facility] Start: 01-05-2025 End: 01-05-2025 ambulatory [facility] Start: 10-16-2024 End: 10-16-2024 ambulatory Abdulaziz Banegas Facility:[facility] Start: 10-16-2024 End: 10-16-2024 Discharged Recurring Abdulaziz Banegas MD -Physical Therapy Work Phone: Start: 09-15-2024 End: 09-15-2024 ambulatory Rip De La Garza Facility:[facility] Start: 09-08-2024 ambulatory Rip De La Garza [facility] Start: 09-04-2024 ambulatory Rip De La Garza [facility] Start: 09-04-2024 End: 09-04-2024 ambulatory Rip De La Garza Facility:[facility] Start: 08-28-2024 End: 08-28-2024 ambulatory Rip De La Garza Facility:[facility] Start: 08-18-2024 End: 08-18-2024 ambulatory Radha Rodriguez Facility:[facility] Start: 08-17-2024 End: 08-17-2024 Home visit Pratima Veras PT Work Phone: [facility] Comment on above: PT AGENCY DC W VISIT Start: 08-12-2024 End: 08-12-2024 Home visit Natalie Cantu EMBROIDERY WORKER Work Phone: [facility] Comment on above: EMBROIDERY WORKER DISC DC W VISIT Start: 08-11-2024 End: 08-11-2024 Home visit Frances Vann RESPITE COORDINATOR Work Phone: [facility] Comment on above: RESPITE COORDINATOR ROUTINE Start: 08-05-2024 End: 08-05-2024 Home visit Natalie Cantu EMBROIDERY WORKER Work Phone: [facility] Comment on above: EMBROIDERY WORKER ROUTINE Start: 08-04-2024 End: 08-04-2024 Home visit Pratima Veras PT Work Phone: [facility] Comment on above: PT REASSESSMENT Start: 07-31-2024 End: 07-31-2024 [facility] Facility:[facility] Start: 07-29-2024 End: 07-29-2024 Home visit Frances Vann RESPITE COORDINATOR Work Phone: [facility] Comment on above: RESPITE COORDINATOR ROUTINE EMBROIDERY WORKER UNMADE VISIT Start: 07-27-2024 End: 07-27-2024 Telephone encounter Frances Vann RESPITE COORDINATOR Work Phone: [facility] Comment on above: Home Care (Unmade PT visit) Start: 07-27-2024 End: 07-27-2024 Home visit Frances Vann RESPITE COORDINATOR Work Phone: [facility] Comment on above: RESPITE COORDINATOR UNMADE VISIT Start: 07-23-2024 End: 07-23-2024 Home visit Rachel Baker RN Work Phone: [facility] Comment on above: CARE COORDINATION Start: 07-23-2024 End: 07-23-2024 Home visit Felicia Caicedo OT Work Phone: [facility] Comment on above: OT EVAL Start: 07-22-2024 End: 07-22-2024 Home visit Chevy Hernandez PT Work Phone: [facility] Comment on above: PT ROMA Start: 07-21-2024 End: 07-21-2024 Telephone encounter Erin Chisholm Work Phone: [facility] Comment on above: Home Care (Confirmat ion Call ) Home Care (Resumptio n of Care) Start: 07-21-2024 End: 07-21-2024 Home visit Pratima Veras PT Work Phone: [facility] Comment on above: PT TRANSFER PT UNMADE VISIT Start: 07-19-2024 ambulatory Mady Cristel Koram Facility :[facility] Start: 07-19-2024 End: 07-21-2024 Evaluation and management of inpatient Mady Cristel Koram Facility:[facility] Start: 07-17-2024 End: 07-17-2024 Home visit Anna Alexandre OTR/L Work Phone: [facility] Comment on above: OT EVAL Start: 07-16-2024 End: 07-16-2024 Home visit Rachel Baker RN Work Phone: [facility] Comment on above: CARE COORDINATION PT ROUTINE Start: 07-15-2024 End: 07-15-2024 Home visit Pratima Veras PT Work Phone: [facility] Comment on above: PT SOC Start: 07-14-2024 End: 07-14-2024 Telephone encounter Nasrin Lezama LPN Work Phone: [facility] Comment on above: Home Care (Confirmat ion Call ) Start: 07-13-2024 End: 07-13-2024 Telephone encounter Flavia Dawson BALANCE CLERK [facility] Comment on above: Home Care (MD ELOY MURPHY) Start: 07-09-2024 Evaluation and management of inpatient HAILE GONZALEZ Facility:[id number] Start: 07-08-2024 End: 07-08-2024 Emergency department patient visit Rip Adak Facility:[facility] Start: 05-26-2024 End: 05-26-[address] [facility] Facility:[facility] Start: 02-07-2024 End: 02-07-[address] Rip De La Garza Work Phone: [facility] Work Phone: Start: 02-07-2024 End: 02-07-[address] Rip De La Garza Work Phone: [facility]-Pulmonary Services/Neurology Work Phone: Start: 01-29-2024 End: 01-29-[address] Rip De La Garza Work Phone: [facility] Work Phone: Start: 12-20-2023 End: 12-20-[address] Rip De La Garza Work Phone: [facility]-Pulmonary Medicine [facility] Work Phone: Start: 12-18-2023 End: 12-18-[address] Rip De La Garza Work Phone: [facility] Work Phone: Start: 12-03-2023 End: 12-03-[address] Rip De La Garza Work Phone: [facility]-Radiology, [place] Work Phone: Start: 10-12-2023 End: 10-12-2023 Emergency department patient visit [facility]-Emergency Department Work Phone: Start: 06-14-2023 End: 06-14-2023 ambulatory [facility] Work Phone: Start: 06-14-2023 End: 06-14-2023 Patient encounter procedure [facility]-Laboratory, [place] Work Phone: Start: 04-11-2023 End: 04-11-2023 Patient encounter procedure [facility] Work Phone: Start: 10-01-2022 End: 10-02-2022 Evaluation and management of inpatient Dr. Rip De La Garza Work Phone: [facility]-Medical Surgical 3 Start: 10-01-2022 End: 10-02-[address] Rip De La Garza Work Phone: [facility] Work Phone: Start: 09-20-2022 End: 09-20-[address] Rip De La Garza Work Phone: [facility] Work Phone: Start: 09-20-2022 End: 09-20-[address] Rip De La Garza Work Phone: [facility]-Laboratory, Specimen Start: 09-13-2022 End: 09-13-[address] Rip De La Garza Work Phone: [facility] Work Phone: Start: 09-13-2022 End: 09-13-[address] Rip De La Garza Work Phone: [facility]-Cat Scan, [facility] Start: 08-06-2022 End: 08-06-[address] Rip De La Garza Work Phone: [facility] Work Phone: Start: 08-06-2022 End: 08-06-[address] Rip De La Garza Work Phone: [facility]-Radiology, [facility] Start: 08-01-2022 End: 08-01-2022 Admission to same day surgery center Dr. Rip De La Garza Work Phone: [facility]-Surgical Day Care Start: 08-01-2022 End: 08-01-[address] Rip De La Garza Work Phone: [facility] Work Phone: Start: 07-25-2022 End: 07-25-[address] Rip De La Garza Work Phone: [facility] Work Phone: Start: 07-25-2022 End: 07-25-[address] Rip De La Garza Work Phone: [facility] Start: 07-12-2022 End: 07-12-[address] Rip De La Garza Work Phone: [facility] Work Phone: Start: 07-12-2022 End: 07-12-[address] Rip De La Garza Work Phone: [facility]-Pulmonary Medicine [facility] Start: 07-10-2022 End: 07-10-[address] Rip De La Garza Work Phone: [facility] Work Phone: Start: 07-10-2022 End: 07-10-[address] Rip De La Garza Work Phone: [facility]-Laboratory Start: 07-06-2022 End: 07-06-[address] Rip De La Garza Work Phone: [facility] Work Phone: Start: 07-06-2022 End: 07-06-[address] Rip De La Garza Work Phone: [facility] Start: 06-29-2022 Non-patient / Non-visit Dr. Rip De La Garza Work Phone: [facility] Start: 06-29-2022 End: 06-29-[address] Rip De La Garza Work Phone: [facility] Work Phone: Start: 06-29-2022 End: 06-29-[address] Rip De La Garza Work Phone: [facility] Start: 06-01-2022 End: 06-01-[address] Rip De La Garza Work Phone: [facility] Start: 05-17-2022 End: 05-17-[address] Rip De La Garza Work Phone: [facility] Start: 05-02-2022 End: 05-02-2022 Patient encounter procedure Snehal Cross MD Work Phone: Neurology Comment on above: Essential tremor (Pr imary Dx) Start: 04-19-2022 End: 04-19-[address] Rip De La Garza Work Phone: [facility]-Laboratory, Specimen Start: 04-03-2022 Telephone encounter Snehal hermosillo MD Work Phone: Neurology Comment on above: Patient Update (Expo sure to Covid ) Start: 03-30-2022 Telephone encounter Snehal hermosillo MD Work Phone: Neurology Comment on above: Referral Request ([facility] for Dr. Cross) Start: 03-21-2022 End: 03-21-2022 Patient encounter procedure [facility]-Outpatient Bone Densitometry Start: 03-07-2022 End: 03-07-2022 Patient encounter procedure [facility]-Laboratory, Specimen Start: 02-13-2022 End: 02-13-2022 Patient encounter procedure [facility]-Laboratory, [facility] Start: 02-12-2022 End: 02-12-2022 Patient encounter procedure [facility]-Cat Scan, [facility] Start: 01-10-2022 End: 01-10-2022 Patient encounter procedure [facility]-Laboratory Procedures Date Procedure Procedure Detail [...] Speci men Type: BLOOD SPECIMEN Ordering Facility: [facility] Address: [facility] [place] [address] Performed By: #### [id number], [id number] #### [facility] CLIA [id number] [address] [place] [address] OF JOHN Start: 12-03-2023 X-ray of cervical [...] End: 01-07-2017 Thyroid stimulating hormone (TSH) Jack Duran MD Start: 01-07-2017 End: 01-07-2017 Thyroxine (T4) Jack Duran MD Start: 08-02-2016 End: 06-26-2017 *Hepatic Function Panel Yahir Jeanine Russo ACUTE CARE SURGEON -C Start: 08-02-2016 End: 08-02-2016 Follow Up Appt 6 months Yahir Jeanine Russo ACUTE CARE SURGEON -C Start: 08-02-2016 End: 08-02-2016 PFM Yahir A Russo ACUTE CARE SURGEON-C Start: 08-02-2016 End: 06-26-2017 Pulmonary Function Test - complete Yahir Solorzano Russo ACUTE CARE SURGEON-C Start: 08-02-2016 End: 06-26-2017 Thyroid stimulating hormone (TSH) Yahir A Russo ACUTE CARE SURGEON-C Start: 08-02-2016 End: 06-26-2017 Thyroxine (T4) Yahir Solorzano Russo ACUTE CARE SURGEON-C Start: 05-01-2016 End: 05-01-2016 Follow Up Appt 3 months Adrianna wong PA-C Work Phone: Start: 05-01-2016 End: 05-01-2016 Follow Up Appt 6 months Adrianna wong PA-C Work Phone: Start: 05-01-2016 End: 05-01-2016 MMM Adrianna Box PA-C Work Phone: Start: 05-01-2016 End: 05-01-2016 PFM Adrianna Box PA-C Work Phone: Start: 04-19-2016 End: 06-09-2016 Electrocardiogram, complete Jack stover MD Start: 10-26-2015 End: 10-26-2015 Follow Up [...] DTaP/Tdap/Td Vaccines (2 - Td or Tdap) [facility] Start: 12-07-2029 Urine microalbumin profile DTa P,Tdap,Td Vaccine (2 - Td or Tdap) [facility] Start: 07-12-2027 Diabetes Screening Diabetes Screenin g [facility] Start: 08-04-2025 BP Controlled (<130/80) BP Con trolled (<130/80) [facility] Start: 07-17-2025 BP Controlled (<130/80) BP Con trolled (<130/80) [facility] Start: 07-12-2025 Influenza vaccination Influenza Vacc ine (#1) [facility] Start: 03-13-2025 Patient discharge [facility] Start: 03-12-2025 Ambulation without limitation [facility] Start: 03-12-2025 Assessment of risk o f venous thromboembolism [facility] Start: 03-12-2025 Catheterization of vein [facility] Start: 03-12-2025 Insertion of cathete r into peripheral vein [facility] Start: 03-12-2025 Measuring intake and output [facility] Start: 03-12-2025 Oxygen therapy [facility] Start: 03-12-2025 Providing care accor ding to standard [facility] Start: 03-12-2025 Referral to egg packer [facility] Start: 03-12-2025 Referral to occupati onal therapist [facility] Start: 03-12-2025 Referral to service [facility] Start: 03-12-2025 Admission procedure [facility] Start: 03-12-2025 End: 03-12-2025 [facility] Start: 11-11-2024 Medicare Advantage A nnual Wellness Visit Medicare Advantage Annual Wellness Visit [facility] Start: 07-22-2024 End: 07-22-2024 Home visit 07/22/2024 2:00 PM EDT Home Care Visit [facility] [address], [place] [id number] Chevy Hernandez, PT [address] [place] [address] PT ROMA [facility] Comment on above: PT ROMA Start: 07-12-2024 Covid-19 Vaccine ( season) Covid-19 Vaccine ( season) [facility] Start: 07-12-2024 Covid-19 Vaccine ( season) Covid-19 Vaccine ( season) [facility] Start: 07-12-2024 COVID-19 Vaccine ( season) COVID-19 Vaccine ( season) [facility] Start: 07-12-2024 Influenza vaccination Influenza Vacc ine (#1) [facility] Start: 12-20-2023 Patient referral [facility] Work Phone: Start: 11-11-2023 Advance Directive Discussion Advance Directive Discussion [facility] Start: 10-12-2023 [facility] Start: 05-02-2023 Adult depression scr eening assessment DEPRESSION SCREENING [facility] Start: 10-01-2022 Following clinical p athway protocol [facility] Work Phone: Start: 10-01-2022 Admission procedure [facility] Work Phone: Start: 10-01-2022 Application of ice c ollar, cap or bag [facility] Work Phone: Start: 10-01-2022 Exercises [facility] Work Phone: Start: 10-01-2022 Incentive spirometry [facility] Work Phone: Start: 10-01-2022 Neurovascular assessment [facility] Work Phone: Start: 10-01-2022 End: 10-02-2022 Patient discharge [facility] Work Phone: Start: 10-01-2022 Patient education [facility] Work Phone: Start: 10-01-2022 Provision of activit y privileges [facility] Work Phone: Start: 10-01-2022 Referral to service [facility] Work Phone: Start: 10-01-2022 Vital signs measurements [facility] Work Phone: Start: 10-01-2022 Wound care [facility] Work Phone: Start: 10-01-2022 [facility] Work Phone: Start: 08-01-2022 Anes lithotrp xtrcor p shock wave w/o water bath ANESTH KIDNEY STONE DESTRUCT [facility] Work Phone: Start: 08-01-2022 Patient discharge [facility] Work Phone: Start: 08-01-2022 Ambulation without limitation [facility] Work Phone: Start: 08-01-2022 Medication education [facility] Work Phone: Start: 08-01-2022 Taking patient vital signs [facility] Work Phone: Start: 08-01-2022 [facility] Work Phone: Start: 07-12-2022 Influenza vaccination INFLUENZ A (Season Ended) [facility] Start: 04-11-2022 Lipid panel Lipid Panel [facility] Start: 01-12-2022 COVID-19 VACCINE (4 - Booster for Pfizer series) COVID-19 VACCINE (4 - Booster for Pfizer series) [facility] Start: 11-11-2021 ADVANCE DIRECTIVE DISCUSSION ADVANCE DIRECTIVE DISCUSSION [facility] Start: 2020 RSV Immunization for Adults (1 - 1-dose 75+ series) RSV Immunization for Adults (1 - 1-dose 75+ series) [facility] Start: 2020 RSV Vaccine (1 - 1-d ose 75+ series) RSV Vaccine (1 - 1-dose 75+ series) [facility] Start: 02-24-2018 End: 02-24-2018 [facility]ointment [facility] Work Phone: Start: 07-08-2017 End: 07-08-2017 Appointment Appointment [facility] Work Phone: Start: 07-08-2017 End: 07-08-2017 Follow Up Appt 6 months Follow Up Appt 6 months [facility][Note 2] [facility] Work Phone: Start: 07-08-2017 End: 07-08-2017 PFM PFM [facility][Note 2] [facility] Work Phone: Start: 07-08-2017 End: 07-08-2017 Thyroid stimulating hormone (TSH) *TSH [facility][Note 2] [facility] Work Phone: Start: 07-08-2017 End: 07-08-2017 Thyroxine (T4) *T4 (Total) [facility][Note 2] [facility] Work Phone: Start: 04-11-2017 End: 05-06-2017 *Hepatic Function Panel *Hepatic Function Panel [facility][Note 2] [facility] Work Phone: Start: 04-11-2017 End: 05-06-2017 Lipid panel [AGGREGATE] *Lipid Profile CC PCP [facility] Work Phone: Start: 01-07-2017 End: 01-07-2017 *Hepatic Function Panel *Hepatic Function Panel [facility] Work Phone: Start: 01-07-2017 End: 01-07-2017 Electrocardiogram, complete EKG (In office) [facility] Work Phone: Start: 01-07-2017 End: 01-07-2017 Follow Up Appt 6 months Follow Up Appt 6 months [facility] Work Phone: Start: 01-07-2017 End: 01-07-2017 Lipid panel [AGGREGATE] *Lipid Profile CC PCP [facility] Work Phone: Start: 01-07-2017 End: 01-07-2017 MMM MMM [facility] Work Phone: Start: 01-07-2017 End: 01-07-2017 Nuclear stress test -exercise Nuclear stress test -exercise [facility] Work Phone: Start: 01-07-2017 End: 01-07-2017 Thyroid stimulating hormone (TSH) *TSH [facility] Work Phone: Start: 01-07-2017 End: 01-07-2017 Thyroxine (T4) *T4 (Total) [facility] Work Phone: Start: 08-02-2016 End: 06-26-2017 *Hepatic Function Panel *Hepatic Function Panel [facility] Phone: Start: 08-02-2016 End: 08-02-2016 Follow Up Appt 6 months Follow Up Appt 6 months [facility] Work Phone: Start: 08-02-2016 End: 08-02-2016 PFM PFM [facility] Work Phone: Start: 08-02-2016 End: 08-02-2016 Pulmonary Function Test - complete Pulmonary Function Test - complete [facility] Work Phone: Start: 08-02-2016 End: 06-26-2017 Thyroid stimulating hormone (TSH) *TSH [facility] Work Phone: Start: 08-02-2016 End: 06-26-2017 Thyroxine (T4) *T4 (Total) [facility] Work Phone: Start: 05-01-2016 End: 05-01-2016 Follow Up Appt 3 months Follow Up Appt 3 months [facility] Work Phone: Start: 05-01-2016 End: 05-01-2016 Follow Up Appt 6 months Follow Up Appt 6 months [facility] Work Phone: Start: 05-01-2016 End: 05-01-2016 MMM MMM [facility] Work Phone: Start: 05-01-2016 End: [...] Phone: Start: 09-15-2015 End: 09-15-2015 MMM MMM [facility] Work Phone: Start: 09-15-2015 End: 09-15-2015 Nuclear stress test -Lexiscan Nuclear stress test -Lexiscan [facility] Work Phone: Start: 2010 BONE DENSITY BONE DENSITY [facility] Start: 2010 PNEUMOCOCCAL: 65+ (1 - PCV) PNEUMOCOCCAL: 65+ (1 - PCV) [facility] Start: 2010 PNEUMOVAX AGE 65 AND OVER WITH 5YR LOOKBACK (#1) PNEUMOVAX AGE 65 AND OVER WITH 5YR LOOKBACK (#1) [facility] Start: 2010 Screening for osteoporosis Bone Dens ity Screening [facility] Start: 2005 RSV Vaccine (1 - 1-d ose 60+ series) RSV Vaccine (1 - 1-dose 60+ series) [facility] Start: 1995 SHINGRIX VACCINE (1 of 2) [place] GRIX VACCINE (1 of 2) [facility] [facility] Start: 1995 Zoster Vaccines (1 of 2) Zoste r Vaccines (1 of 2) [facility] Start: 1990 DIABETES SCREEN DIABETES SCREEN [facility] Start: 1964 Urine microalbumin profile DTA P,TDAP,TD (1 - Tdap) [facility] Start: 1963 ANNUAL PCP TEAM MEAT CLERK JIMMIE DISEASE VISIT ANNUAL PCP TEAM CHRONIC DISEASE VISIT [facility] Start: 1963 BP CONTROLLED (<130/80) BP CON TROLLED (<130/80) [facility] Start: 1963 HEPATITIS C SCREENING HEPATITIS C SC REENING [facility] Start: 1957 Adult depression scr eening assessment DEPRESSION SCREENING [facility] Start: 1957 Depression Monitoring Depression Mon itoring [facility] Start: 1950 COVID-19 VACCINE (#1) COVID-19 VACCI NE (#1) [facility] Start: 1945 Screening for osteoporosis Bone Dens ity Scan [facility] Patient Education [facility] Work Phone: Patient referral [facility] Work Phone: Polysomnography [facility] Phone[facility] Immunizations Immunization Date Immunization Notes Care Provider Ezequiel bautista 11-27-2023 influenza virus vaccine, unspecified formulation Vinita Thakur MD Work Phone: [facility] 08-01-2021 influenza virus vaccine, unspecified formulation Flavia Dawson LPN [facility] 12-30-2020 influenza, injectabl e, quadrivalent, preservative free [facility] 12-30-2020 influenza, seasonal, injectable [facility] 12-30-2020 Fluad Quad (65yr up)(PF) 60 mcg (15 mcg x 4)/0.5mL IM syringe (flu vac [facility] Work Phone: 08-12-2019 Fluad 2019- 65yr up(PF)45 mcg(15 mcgx3)/0.5 mL intramuscular syringe (flu vac [facility] Work Phone: 07-12-2015 Influenza virus vaccine [facility] Payers Date Payer Category Payer Self-pay [id number] [phone] [id number] 2019 Medicare HUMANA MEDICARE HUMANA MEDICARE PPO [id number] 2019-Present [phone] [place], [place] [id number] PPO [id number] 2019 Medicare [facility] MEDICARE HUMANA MEDICARE PPO [id number] 2019-Present [phone] [place] [address] [id number] 2019 Medicare HMO [facility] MEDICARE [id number] 2019 Medicare [id number] 2015 Medicare [id number] Unknown [id number] 2.16.840.1.453366.3.579.2.46 2 Unknown [id number] 2.16.840.1.837361.3.579.2.46 2 Unknown [id number] 2.16.840.1.198839.3.579.2.46 2 Unknown [id number] 2.16.840.1.565716.3.579.2.46 2 Unknown [id number] 2.16.840.1.469194.3.579.2.46 2 Unknown [id number] 2.16.840.1.530080.3.579.2.46 2 Unknown [id number] 2.16.840.1.026463.3.579.2.46 2 Unknown [id number] 2.16.840.1.316045.3.579.2.46 2 Unknown [id number] 2.16.840.1.228605.3.579.2.46 2 Unknown [id number] 2.16.840.1.966290.3.579.2.46 2 Unknown [id number] 2.16.840.1.673830.3.579.2.46 2 Unknown [id number] 2.16.840.1.478269.3.579.2.46 2 Unknown [id number] 2.16.840.1.161053.3.579.2.46 2 Unknown [id number] 2.16.840.1.190518.3.579.2.46 2 Unknown [id number] 2.16.840.1.912375.3.579.2.46 2 Unknown [id number] 2.16.840.1.231836.3.579.2.46 2 Unknown [id number] 2.16.840.1.677412.3.579.2.46 2 Unknown [id number] 2.16.840.1.191222.3.579.2.46 2 Unknown [id number] 2.16.840.1.480038.3.579.2.46 2 Unknown [id number] 2.16.840.1.853807.3.579.2.46 2 Unknown [id number] 2.16.840.1.791538.3.579.2.46 2 Unknown [id number] 2.16.840.1.184446.3.579.2.46 2 Unknown [id number] 2.16.840.1.939018.3.579.2.46 2 Unknown [id number] 2.16.840.1.070309.3.579.2.46 2 Social History Date Type Detail Facility Start: 10-09-2021 End: 01-29-2024 Tobacco smoking status AKIS Unknown if ever smoked [facility] Start: 1945 Sex Assigned At Female W [facility] Start: 05-13-2018 End: 10-14-2024 Tobacco smoking status AKIS Never smoked tobacco [facility] Start: 05-13-2018 End: 10-14-2024 Tobacco use and exposure Smokeless tobacco non-user [facility] Start: 11-05-2019 End: 07-08-2024 Alcohol intake Current non-drinker of alcohol (finding) [facility] Start: 1945 Sex Assigned At Not on file [facility] Start: 04-22-2022 End: 05-02-2022 Exposure to SARS-CoV-2 (event) Not sure [facility] Start: 04-11-2016 None [facility] Start: 04-11-2016 Spouse/ Signif icant Other [facility] Start: 09-03-2015 Non-smoker [facility] Start: 07-09-2024 End: 05-25-2025 History of Social function [facility] Start: 07-09-2024 End: 05-25-2025 [facility] Has the [employer], [employer], oil, or water company threatened to shut off services in your home in past 12Mo No [facility] Adult Depression Screening Assessment 4 [facility] (I/We) worried gavin er (my/our) food would run out before (I/we) got money to buy more. Never true [facility] Start: 06-11-2022 End: 02-01-2025 Sex Female (finding) [facility] Start: 05-25-2025 Alcoholic beverage intake Lifetime non-drinker (finding) [employer] Medical Equipment Procedure Code Equipment Code Equipment [...] PATCH,CAROTID THIN FDA Start: 12-08-2018 Lithotripsy, ESWL ([id number]) Polymeric uret eral stent ()[id number] FDA Start: 08-01-2022 Lithotripsy, ESWL ([id number]) Polymeric uret eral stent ()[id number] FDA Start: 08-01-2022 ([id number]) Metal-backed patella prosthesis ()[id number] FDA Start: 10-01-2022 ([id number]) Coated knee femu r prosthesis ()[id number] FDA Start: 10-01-2022 ([id number]) Coated knee tibi a prosthesis ()[id number] FDA Start: 10-01-2022 ([id number]) Tibial insert ()[id number] FDA Start: 10-01-2022 Goals Date Patient Goal Desired Activity /State Functional Status Date Assessment Result Facility 03-13-2025 Functional status Ambulates [facility] Work Phone: 10-02-2022 Functional status Chair [facility] Work Phone: 08-01-2022 Functional status Bathroom Privilege [facility] Work Phone: Mental Status Date Assessment Result Facility 03-13-2025 Cognitive function Voice/Name [facility] Work Phone: 10-12-2023 Cognitive function Level Of Cons ciousness Awake;Alert;Appropriate;Follow s Commands [facility] Work Phone: 10-02-2022 Cognitive function Level Of Cons ciousness Awake;Alert;Appropriate;Follow s Commands [facility] Work Phone: 10-01-2022 Cognitive function Voice/Name [facility] Work Phone: 08-01-2022 Cognitive function Voice/Name [facility] Work Phone: Clinical Notes 05-13-2018 to 05-25-2025 Vinita Thakur MD - 05/25/2025 1:45 PM EDTPatient Instructions Note Date & Type Note Facility 05-25-2025 History of Presen t illness Narrative ;;[facility] Card[facility]/Electrophysiology Follow Up Clinic Note Chief Complaint: [...] her baseline. However, she presented to the [place] ED in early March for weakness. She [...] for parkinsonism recently was moved to a longterm facility. She does not exercise regularly, but can do all of her ADLs. The ECG from the [place] ED in March showed a slow atrial [...] [1] Past Medical History: Diagnosis Date A-fib ([facility]) ([facility]) 10/14/2024 On Eliquis Anxiety 10/14/2024 Congenital heart disease 11/11/1963 Mixed hyperlipidemia 07/09/2024 CLARISSE on CPAP 10/14/2024 Rheumatoid arthritis involving multiple sites ([facility]) ([facility]) 07/09/2024 Typical atrial flutter ([facility]) 10/14/2024 [2] Past Surgical History: Procedure Laterality Date APPENDECTOMY ASD REPAIR CHOLECYSTECTOMY HYSTERECTOMY KNEE ARTHROPLASTY Right DIOGENES FUNDOPLICATION [3] No family history on file. [4] Social History Tobacco Use Smoking status: Never Smokeless tobacco: Never Vaping Use Vaping status: Never Used Substance Use Topics Alcohol use: Never Drug use: Never documented in this encounter [facility] 05-25-2025 Instructions Vinita Thakur MD - [...] Dr Rodriguez appointment. documented in this encounter [facility] 05-19-2025 Discharge summary Note Date/Time May 19, 2025 7:00p [facility] [address] [place] [address] / REHABILITATION SERVICES DISCHARGE SUMMARY MR#: [id number] Acct: [id number] Name: RUBEN LOBO Rep #: [id number] : 1945 80 From: Cert. NATALIIA Cevallos, OCS Referring Dr.: Dr. Juan Manuel Martinez MD Status: REG RCR Insurance: [employer] MEDICARE PPO SELF PAY INSURANCE Discharge Summary [...] please feel free to call me at [phone]. Thank you for the referral of thispatient. Sincerely, Berny Freitas PT, Cert T, OCS Balance/Gait/Functional tests Balance/Special Test Scores Oswestry Neck Score: 10 Improvement % Improvement: 50 <Electronically signed by Samantha Mckeon PT. NATALIIA, OCS> 05/20/25 1302 CC: Dr. Juan Manuel Martinez MD; Dr. Rip De La Garza MD ~ JLA Signed [facility] Work Phone: 1(466) 687-334207-09-2025 Discharge summary [facility] Physical [facility] [address] [place] [address] [address] [place] [id number] / REHABILITATION SERVICES DISCHARGE SUMMARY MR#: [id number] Acct: [id number] Name: RUBEN LOBO Rep #: [id number] : 1945 80 From: Cert. NATALIIA [...] please feel free to call me at [phone]. Thank you for the referral of thispatient. Sincerely, Berny Freitas, PT, Cert MDT, OCS Balance/Gait/Functional tests Balance/Special Test Scores Oswestry Neck Score: 10 Improvement % Improvement: 50 05/20/25 1302 CC: Dr. Juan Manuel Martinez MD; Dr. Rip De La Garza MD ~ JLA Signed [facility]05-03-2025 [facility] Medical Records Department [address] [place] [address] Discharge Summary 03/13/25 09 MR#: [id number] Acct: [id number] Name: RUBEN LOBO Rep #: [id number] : 1945 79 From: Anthony Owen MD PCP: Dr. Rip De La Garza MD Status:ADM MELI Location: [place] [address] Providers Date of Admission: 03/12/25 Date of [...] debility ??? Requested for PT OT and psychiatric social worker to assist with discharge planning. Also ordered [...] % (Auto) 54.0, Lymph % (Auto) 33.6, Doniphan % (Auto) 10.0, Eos % (Auto) 1.6, Baso % (more contentnot included)...[facility]05-02-2025 Evaluation note* Diagnosis Onset Date [...] region, unspecified level acute March 222024 2:22pm [facility] Work Phone: 1(816) 299-963910-07-2024 Miscellaneous Notes* PT DISCHARGE - Pratima Veras, [...] (reason for Home Care): hospital admission to [place] on 07/19/24-07/21/24 [facility]: pt had a cervical epidural on 07/08 then presented to the ER on 07/09 with difficulty walking, slurredspeech and weakness Diagnoses (reason for Home Care): [facility] 07/09/24 on 07/13/24. Encounter for other [...] summary for intervention/education details. [facility] Patient[facility] home Note* PT DISCHARGE - [...] (reason for Home Care): hospital admission to [place] on 07/19/24-07/21/24 [facility]: pt had a cervical epidural on 07/08 then presented to the ER on 07/09 with difficulty walking, slurredspeech and weakness Diagnoses (reason for Home Care): [facility] 07/09/24 on 07/13/24. Encounter for other [...] directed See intervention summary for intervention/education details. [facility] Work Phone: 1(836) 705-923409-24-2024 Miscellaneous Notes* PT ROUTINE/REASSESSMENT/RECERT/CASE MGMT - Pratima [...] (reason for Home Care): hospital admission to [place] on 07/19/24-07/21/24 [facility]: pt had a cervical epidural on 07/08 then presented to the ER on 07/09 with difficulty walking, slurred speech and weakness Diagnoses (reason for Home Care): [facility] 07/09/24 on 07/13/24. Encounter for other [...] summary for intervention/education details. [facility] Patient's home Note* PT ROUTINE/REASSESSMENT/RECERT/CASE MGMT [...] (reason for Home Care): hospital admission to [place] on 07/19/24-07/21/24 [facility]: pt had a cervical epidural on 07/08 then presented to the ER on 07/09 with difficulty walking, slurred speech and weakness Diagnoses (reason for Home Care): [facility] 07/09/24 on 07/13/24. Encounter for other [...] able See intervention summary for intervention/education details. [facility] Work Phone: 1(855) 984-610509-18-2024 Miscellaneous Notes* PT ROUTINE/REASSESSMENT/RECERT/CASE MGMT - Frances Vann PTA - 07/29/2024 1:03 PM EDT SITUATION: son present during today's visit. patient reports the following since the last homecare visit: medications/allergies--no changes, no fall. patient reports she is doing ok. just got home from hospital yesterday. things have been crazy around here.. BACKGROUND: Diagnoses (reason for Home Care): hospital admission to [place] on 07/19/24-07/21/24. pt had a cervical epidural on 07/08 then presented to the ER on 07/09 with difficulty walking, slurred speech and weakness Diagnoses (reason for Home Care): [facility] 07/09/24 on 07/13/24. Encounter for other [...] summary for intervention/education details. [facility] Patient's home Note* PT ROUTINE/REASSESSMENT/RECERT/CASE MGMT - Frances Vann PTA - 07/29/2024 1:03 PM EDT SITUATION: son present during today's visit. patient reports the following since the last homecare visit: medications/allergies--no changes, no fall. patient reports she is doing ok. just got home from hospital yesterday. things have been crazy around here.. BACKGROUND: Diagnoses (reason for Home Care): hospital admission to [place] on 07/19/24-07/21/24. pt had a cervical epidural on 07/08 then presented to the ER on 07/09 with difficulty walking, slurred speech and weakness Diagnoses (reason for Home Care): [facility] 07/09/24 on 07/13/24. Encounter for other [...] able See intervention summary for intervention/education details. [facility] Work Phone: 1(856) 178-585009-16-2024 Telephone encounter Note* Telephone Encounter - Frances Vann PTA - 07/27/2024 11:28 AM EDT Unmade PT visit today due to patients being admitted to hospital. [facility] Work Phone: [phone]) 890-365309-16-2024 Miscellaneous Notes* Telephone Encounter - Frances Vann PTA - 07/27/2024 11:28 AM EDT Unmade PT visit today due to patients being admitted to hospital. [facility] Miscellaneous Notes* CARE COORDINATION - Rachel [...] list. Rachel Baker RN documented in [facility]The [facility] Patient's home Note* CARE COORDINATION - [...] added to medication list. Rachel Baker RN [facility] Work Phone: 1(971) 849-858809-12-2024 Miscellaneous Notes* OT EVALUATION/REASSESSMENT/RECERT - Felicia Caicedo [...] a cervical collar. Cystitis. 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 Patient evaluated by [facility] occupational therapy. Reviewed and explained [...] summary for intervention/education details. documented [facility] Patient's home Note* OT EVALUATION/REASSESSMENT/RECERT - [...] a cervical collar. Cystitis. 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 Patient evaluated by [facility] occupational therapy. Reviewed and explained [...] services.. See intervention summary for intervention/education details. [facility] Work Phone: 1(834) 854-820709-11-2024 Miscellaneous Notes* HH PT SOC/ROMA/FOLLOW UP/OTHER - Chevy Hernandez, PT - 07/22/2024 2:30 PM EDT SITUATION: spouse and son present during today's visit. patient reports she is tired today. Reports she wants to get better so she can take care of her who has Parkinsons. BACKGROUND: Diagnoses (reason for Home Care): hospital admission to [place] on 07/19/24-07/21/24. pt had a cervical epidural on 07/08 then presented to the ER on 07/09 with difficulty walking, slurred speech and weakness Diagnoses (reason for Home Care): [facility] 07/09/24 on 07/13/24. Encounter for other [...] care: Foam- Adhesive ASSESSMENT: Patient evaluated by [facility] physical therapy. Reviewed and explained [...] as tolerated Agreeable to PT, OT and EMBROIDERY WORKER; declining NA. See intervention summary for intervention/education details. documented [facility]The [facility] Patient's home Note* HH PT SOC/ROMA/FOLLOW UP/OTHER - Chevy Hernandez PT - 07/22/2024 2:30 PM EDT SITUATION: spouse and son present during today's visit. patient reports she is tired today. Reports she wants to get better so she can take care of her who has Parkinsons. BACKGROUND: Diagnoses (reason for Home Care): hospital admission to [place] on 07/19/24-07/21/24. pt had a cervical epidural on 07/08 then presented to the ER on 07/09 with difficulty walking, slurred speech and weakness Diagnoses (reason for Home Care): [facility] 07/09/24 on 07/13/24. Encounter for other [...] care: Foam- Adhesive ASSESSMENT: Patient evaluated by [facility] physical therapy. Reviewed and explained [...] as tolerated Agreeable to PT, OT and EMBROIDERY WORKER; declining NA. See intervention summary for intervention/education details. [facility] Work Phone: [phone]) 846-655409-10-2024 Telephone encounter Note* Telephone Encounter - Dory العراقي LPN - 07/21/2024 2:[address] De La Garza's office, spoke with Roberta, advised we will be resuming care on 07/23/24. She confirmed and will Dr De La Garza know. [facility] Work Phone: 1(512) 453-820809-10-2024 Miscellaneous Notes* Telephone Encounter - Dory العراقي LPN - 07/21/2024 2:[address] De La Garza's office, spoke with Roberta, advised we will be resuming care on 07/23/24. She confirmed and will Dr De La Garza know. documented in [facility]The [facility]09[facility]2024 [facility] Medical Records Department [address] [place] [address] Discharge Summary 07/21/24 1319 MR#: [id number] Acct: [id number] Name: RUBEN LOBO Rep #: [id number] : 1945 79 From: Yahir Thrasher DO PCP: Dr. Rip De La Garza MD Status:DIS IN Location: [facility] [id number] Providers Date of Admission: 07/19/24 Date of Discharge: 07/21/24 Primary Care Physician: Dr. Rip De La Garza MD Consultations 07/20/24 03:27 Consult: Onc/Wound/lead oxide mill tender Routine Comment: Reason for Consult:: chronic wounds on upper buttocks/lower back that come and go Reason For Visit: UTI Diagnosis Discharge Diagnosis (1) Postoperative hematoma: Status: Acute Plan 1. Acute cystitis #2 status postevacuation of hematoma of the upper thoracic spinal area #3 paroxysmal D-bvt-vbbevwl is on metoprolol and Eliquis #4 chronic [...] was seen in the emergency room at [facility] with complaints of increased pain [...] patient needed to be transferred back to [facility] where the surgery had been performed and [...] hemoglobin at the time of discharge from [facility] on 07/12/2024 was 11.2. On 07/21/2024, patient [...] not appear agitated. Patie (more content not included)...[facility]09-10-2024 Telephone encounter Note* Telephone Encounter - Erin Chisholm - 07/21/2024 12:42 PM EDT Date/Time: 07/21/2024 12:42 PM Spoke with Jaxon @ phone #: [phone] - Preferred # for contact: [phone] Have you received help from a home care company in the last 60 days? [facility] Are you agreeable to [facility] services? yes What address will we be seeing you at? [address] [place] [address] Do you have any upcoming appointments or things we need to schedule around? Not sure Do you have a teachable CG or can you manage your care independently? [facility] Work Phone: [phone] Miscellaneous Notes* Telephone Encounter - Erin Chisholm - 07/21/2024 12:42 PM EDT Date/Time: 07/21/2024 12:42 PM Spoke with Jaxon @ phone #: [phone] - Preferred # for contact: [phone] Have you received help from a home care company in the last 60 days? [facility] Are you agreeable to [facility] services? yes What address will we be seeing you at? [address] [place] [address] Do you have any upcoming appointments or things we need to schedule around? Not sure Do you have a teachable CG or can you manage your care independently? documented in [facility] encounterThe [facility]09[facility] Miscellaneous Notes* OT EVALUATION/REASSESSMENT/RECERT - Anna [...] and feels like she doesn't need the EMBROIDERY WORKER. BACKGROUND: Diagnoses or reason for home care: Encounter for other orthopedic aftercare SURGERY/PROCEDURE: T1-T5 laminectomy. Past medical history: HTN, A-Fib, HLD, Rheumatoid Arthritis, Depression, anxiety, CLARISSE Weight Bearing or Precautions: Gerson wyatt ASSESSMENT: Patient evaluated by [facility] occupational therapy. Reviewed and explained [...] summary for intervention/education details. documented in this encounterThe [facility]09[facility] Patient's home Note* OT EVALUATION/REASSESSMENT/RECERT - [...] and feels like she doesn't need the EMBROIDERY WORKER. BACKGROUND: Diagnoses or reason for home care: [...] date. See intervention summary for intervention/education details. [facility] Work Phone: 1(881) 102-824409-05-2024 Miscellaneous Notes* PT ROUTINE/REASSESSMENT/RECERT/CASE MGMT - Pratima Veras, PT - 07/16/2024 3:01 PM EDT SITUATION: spouse present during today's visit. patient reports the following since the last homecare visit: medications/allergies--no changes, no fall. patient reports she's eager to get her dressing off its bugging me Pt reports that the son who came from [place] to help her is now in the [...] and weakness Diagnoses (reason for Home Care): [facility] 07/09/24 on 07/13/24. Encounter for other [...] Shower Chair - PRECAUTIONS Spine, Brace Gina horen, log roll, PRIYA - Wound location: Incision [...] pts permission a photo was uploaded to [employer] for MD to review Pts sister found [...] summary for intervention/education details. documented in [facility] encounterThe [facility] Patient's home Note* PT ROUTINE/REASSESSMENT/RECERT/CASE MGMT - Pratima Veras, PT - 07/16/2024 3:01 PM EDT SITUATION: spouse present during today's visit. patient reports the following since the last homecare visit: medications/allergies--no changes, no fall. patient reports she's eager to get her dressing off its bugging me Pt reports that the son who came from [place] to help her is now in the [...] and weakness Diagnoses (reason for Home Care): [facility] 07/09/24 on 07/13/24. Encounter for other [...] pts permission a photo was uploaded to [employer] for MD to review Pts sister found [...] balance See intervention summary for intervention/education details. [facility] Work Phone: 1(864) 717-522209-05-2024 Miscellaneous Notes* CARE COORDINATION - Rachel Baker [...] list. Rachel Baker RN documented in this [facility] Note* CARE COORDINATION - [...] not. Updated medication list. Rachel Baker RN [facility] Work Phone: 1(477) 248-196809-04-2024 Miscellaneous Notes* HH PT SOC/ROMA/FOLLOW UP/OTHER - Pratima Veras, PT - 07/15/2024 9:31 AM EDT SITUATION: spouse and son present during today's visit. patient reports this really hurts, its kind of a crazy situation . BACKGROUND:pt had a cervical epidural on 07/08 then presented to the ER on 07/09 with difficulty walking, slurred speech and weakness Diagnoses (reason for Home Care): [facility] 07/09/24 on 07/13/24. Encounter for other [...] incision check/staple removal ASSESSMENT: Patient evaluated by [facility]. Reviewed and explained [...] gait, transfers Agreeable to PT, OT and EMBROIDERY WORKER; declining none. See intervention summary for intervention/education details. [facility] Patient's home Note* PT SOC/ROMA/FOLLOW UP/OTHER - Pratima Veras PT - 07/15/2024 9:31 AM EDT SITUATION: spouse and son present during today's visit. patient reports this really hurts, its kind of a crazy situation . BACKGROUND:pt had a cervical epidural on 07/08 then presented to the ER on 07/09 with difficulty walking, slurred speech and weakness Diagnoses (reason for Home Care): [facility] 07/09/24 on 07/13/24. Encounter for other [...] incision check/staple removal ASSESSMENT: Patient evaluated by [facility] therapy. Reviewed and explained [...] gait, transfers Agreeable to PT, OT and EMBROIDERY WORKER; declining none. See intervention summary for intervention/education details. [facility] Work Phone: 1(204) 420-102109-03-2024 Telephone encounter Note* Telephone Encounter - Nasrin Lezama LPN - 07/14/2024 11:07 AM EDT Date/Time: 07/14/2024 11:07 AM Spoke with Ruben @ phone #: [phone] - Preferred # for contact: [phone] Have you received help from a home care company in the last 60 days? No Are you agreeable to [facility] services? Yes What address will we be seeing you at? [address] [place], [place] [id number] Do you have any upcoming appointments or things we need to schedule around? No Do you have a teachable CG or can you manage your care independently? Independent with care . [facility] Work Phone: 1(309) 511-411109-03-2024 Miscellaneous Notes* Telephone Encounter - Nasrin Lezama LPN - 07/14/2024 11:07 AM EDT Date/Time: 07/14/2024 11:07 AM Spoke with Ruben @ phone #: [phone] - Preferred # for contact: [phone] Have you received help from a home care company in the last 60 days? No Are you agreeable to [facility] services? Yes What address will we be seeing you at? [address] [place] [id number] Do you have any upcoming appointments or things we need to schedule around? No Do you have a teachable CG or can you manage your care independently? Independent with care . [facility] Telephone encounter Note * Telephone Encounter - Flavia Dawson LPN - 07/13/2024 11:45 AM EDT Unable to leave message to follow for home care due to holiday. Flavia Dawson LPN July 13, 2024 11:45 AM [facility]-02-[facility] Miscellaneous Notes* Telephone Encounter - Flavia Dawson LPN - 07/13/2024 11:45 AM EDT Unable to leave message to follow for home care due to holiday. Flavia Dawson LPN July 13, 2024 11:45 AM documented in this [facility]24 NoteHNO ID: [id number] Author: SEE JOYCE LISW Service: Care Management Author Type: Property Accountant Type: Care Mgt Progress Note Filed: 07/13/2024 10:50 Note Text: Summary: Discharge Planning CARE MANAGEMENT DISCHARGE NOTE SERVICE DATE: July 13, 2024 SERVICE TIME: 10:28 AM Admission Date: 07/09/2024 LOS: 4 days Discharge Arrangement Services Arranged Provider Name: [facility] Phone: see below Caregiver Assessment Transportation Arrangements Transportation Arrangements: Car Date of Trip: 07/13/24 Time of Trip: 1600 Destination: Home Handoff Communication: Additional Information: Pt will d/c to home with [facility] for home therapy. Pt has necessary dme at baseline. Pt and family agreeable for d/c plan. Spouse to transport. Case closed Discharge Information Row Name Admission (Current) from 07/09/2024 in [facility] 5B MED/SURG [facility] Health Care Agency [facility] Start of Care 07/14/24 start of care will be in the next 24-48 hours after you are discharged SIGNATURE: SHOBHA [place] PATIENT NAME: Ruben Lobo DATE: July 13, 2024 TIME: 10:28 AM CONTACT #: [phone] NoteHNO ID: [id number] Author: SEE JOYCE LISW Service: Care Management Author Type: Property Accountant Type: Care Mgt Progress Note Filed: 07/12/2024 13:49 Note Text: Summary: Discharge Planning CARE MANAGEMENT PROGRESS NOTE SERVICE DATE: 07/12/2024 SERVICE TIME: 1:48 PM LOS: 3 days [place] Given: Yes Level of Care Discussed: Home Care Financial Disclosure Provided: Yes Provider List: Home Care Provider list within the patient's requested geographic area shared with the patient/family: Yes within: 20 miles of zip code: [address] Quality and resource use metrics shared with the patient that are relevant to the patient's goals of care and treatment preferences:: Yes Pt gave choice for [facility] home care. Referral sent. Encouraged additional choices as able. Will follow for [facility] set up. SIGNATURE: SHOBHA [place] PATIENT NAME: Ruben Lobo DATE: July 12, 2024 TIME: 1:48 PM PAGER/CONTACT #: [phone]09-01-2024 Note HNO ID: [id number] Author: SEE JOYCE LISW Service: Care Management Author Type: Property Accountant Type: Care Mgt Progress Note Filed: 07/12/2024 12:08 Note Text: Summary: Discharge Planning Update Note: D/c plan recommended for [facility] for home therapy. Pt,spouse, son rip notified and in agreement. Pt to given FOC as soon as able. Pt has necessary DME at baseline. 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 She was given resources to assist with this concern. Will continue to follow for [facility] set up. Family to transport at discharge.[facility] NoteHNO ID: [id number] Author: REGI RIOJAS MD Service: Hospital Medicine [...] mg ORAL DAILY (6 AM) García Snow APRN.BUSINESS MANAGEMENT ASSOCIATE 40 mg at 07/11/24 0511 dilTIAZem CD 120 mg cap(s) (CARDIZEM CD, CARTIA XT) 120 mg ORAL DAILY García Snow APRN.BUSINESS MANAGEMENT ASSOCIATE 120 mg at 07/11/24 0850 potassium chloride ER 20-40 mEq tab(s) (KLOR-CON) 20-40 mEq ORAL/FEEDING TUBE PRN García Snow APRN.BUSINESS MANAGEMENT ASSOCIATE Or potassium chloride iv piggyback 20 mEq/100 mL 20 mEq INTRAVENOUS PRN García Snow APRN.BUSINESS MANAGEMENT ASSOCIATE phosphorus 500 mg tab(s) (K PHOS NEUTRAL) 500 mg ORAL/FEEDING TUBE PRN(NO DISPENSE) García Snow APRN.BUSINESS MANAGEMENT ASSOCIATE magnesium sulfate iv piggyback in sterile water 2 g 50 mL 2 g INTRAVENOUS PRN García Snow APRN.BUSINESS MANAGEMENT ASSOCIATE NaCl 0.9% iv flush bag 20 mL INTRAVENOUS PRN Neidert, García Taj, TOE STAPLER.BUSINESS MANAGEMENT ASSOCIATE albuterol 2.5 mg /3 mL (0.083 %) 2.5 mg (PROVENTIL) 2.5 mg INHALATION q 4 H PRN García Snow APRN.BUSINESS MANAGEMENT ASSOCIATE ondansetron 4 mg tab(s) (ZOFRAN) 4 mg ORAL q 6 H PRN García Snow APRN.BUSINESS MANAGEMENT ASSOCIATE Or ondansetron (PF) 4 mg injection (ZOFRAN) 4 mg INTRAVENOUS q 6 H PRN García Snow APRN.BUSINESS MANAGEMENT ASSOCIATE 4 mg at 07/09/24 1257 docusate sodium 200 mg cap(s) (COLACE) 200 mg ORAL BID García Snow APRN.BUSINESS MANAGEMENT ASSOCIATE 200 mg at 07/11/242022 magnesium hydroxide 400 mg/5 mL 30 mL (MOM) 30 mL ORAL/FEEDING TUBE DAILY PRN García Snow APRN.BUSINESS MANAGEMENT ASSOCIATE sertraline 100 mg tab(s) (ZOLOFT) 100 mg ORAL AT BEDTIME García Snow APRN.BUSINESS MANAGEMENT ASSOCIATE 100 mg at 07/11/242022 bisacodyl EC 10 mg tab(s) (DULCOLAX) 10 mg ORAL DAILY PRN García Snow APRN.BUSINESS MANAGEMENT ASSOCIATE bisacodyl 10 mg suppository (DULCOLAX) 10 mg RECTAL DAILY PRN García Snow APRN.BUSINESS MANAGEMENT ASSOCIATE ceFAZolin iv piggyback 2 g in D5W (iso-osmotic) 100 mL (ANCEF) 2 g INTRAVENOUS q 6 HR García Snow APRN.BUSINESS MANAGEMENT ASSOCIATE Stopped at 07/12/24 0008 polyethylene glycol 3350 17 g packet 17 g ORAL DAILY García Snow APRN.BUSINESS MANAGEMENT ASSOCIATE 17 g at 07/11/24 0850 morphine 4 mg injection 4 mg INTRAVENOUS q 2 H PRN García Snow APRN.BUSINESS MANAGEMENT ASSOCIATE 4 mg at 07/11/24 1419 oxyCODONE-acetaminophen 5-325 mg 1 tablet (PERCOCET) 1 tablet ORAL q 4 H PRN García Snow APRN.BUSINESS MANAGEMENT ASSOCIATE 1 tablet at 07/11/24 1731 oxyCODONE-acetaminophen 5-325 mg 2 tablet (PERCOCET) 2 tablet ORAL q 4 H PRN García Snow APRN.BUSINESS MANAGEMENT ASSOCIATE 2 tablet at 07/11/24 1229 tiZANidine 4 mg tab(s) (ZANAFLEX) 4 mg ORAL q 8 H PRN García Snow APRN.BUSINESS MANAGEMENT ASSOCIATE acetaminophen 650 mg tab(s) (TYLENOL) 650 mg ORAL q 6 H PRN García Snow APRN.BUSINESS MANAGEMENT ASSOCIATE 650 mg at 07/09/242031 Recent Results (from [...] 4.00 k/uL Monocytes % 10.7 % Abs [place]han 0.91 (H) <0.87 k/uL Eosinophils % 0.0 % Abs Eosin <0.03 <0.46 k/uL Basophils % 0.1 % Abs Baso <0.03 <0.11 k/uL Immature Granulocytes % 1.1 % Abs Immature Gran 0.09 <0.10 k/uL NRBC 0.0 /100 WBC Absolute nRBC <0.01 <0.01 k/uL Diff Type Auto BASIC METABOLIC PANEL Collection Time: 07/11/24 6:01 AM Result Value Ref Range (more content not included)...[facility] NoteHNO ID: [id number] Author: TONYA HENNESSY MD Service: Hospital Medicine [...] Performed General-appears comfortable in no acute distress. Nzqt-p-uzdtpy in place, drain in place with drainage [...] PRIYA drain in. Co (more content not included)...[facility]-30[facility]24 NoteHNO ID: [id number] Author: GARCÍA SNOW APRN.CNP Service: Critical Care Author Type: Nurse Practitioner Type: Plan of Care Filed: 07/10/2024 11:50 Note Text: Reached out and discussed patient with Sagar Palmer (Neurosurgery). He is ok for patient be transferred to floors.[facility]-30-[facility]24 NoteHNO ID: [id number] Author: SHILOH NUNEZ RN Service: Care Management Author Type: Registered Nurse Type: Care Mgt Progress Note Filed: 07/10/2024 11:15 Note Text: CARE MANAGEMENT PROGRESS NOTE SERVICE DATE: 07/10/2024 SERVICE TIME: 1110 LOS: 1 day Post-Acute Discharge Planning Patient Goal(s): Be able to go home, General wellness [place] Explained: Discharge Planning Participant(s): Patient/Family Comments: Anticipated # of Days Until Discharge: Transport at Discharge: Needs Prior to Discharge: Needs Prior to Discharge: To Be Determined Post-Acute Discharge Plan: Chart reviewed. Patient came to the hospital from home with her for a steroid injection for back pain 07/08 at [place]. Post procedure she had slurred speech and weakness. She had an MRI which showed a large hematoma vs epidural abscess. She was transferred to [facility] for a higher level of care. Neurosurgery [...] be obtained and verified we will follow [place] NOK. Patient is legally but her has Parkinson's and Dementia- per patient he does not have capacity to make decisions and requires real time trader care. She has 2 adult biological children and they are legal NOK. They are listed below: Buck Hood (son) [phone] Rip Lobo (son) [phone] SIGNATURE: Shiloh Nunez RN PATIENT NAME: Ruben Lobo DATE: July 10, 2024 TIME: 11:10 AM PAGER/CONTACT #: [phone] Hospital08-30-2024 Note HNO ID: [id number] Author: HAILE GONZALEZ DO Service: Critical Care [...] - Hx of Osteo (more content not included)...[facility] Note HNO ID: [id number] Author: JONO LEBLANC MD Service: Anesthesiology Author [...] July 09, 2024 TIME: 12:13 PM CSN: [id number] Hospital08-29-2024 NoteHNO ID: [id number] Author: ALYX HUERTA AA Service: ? Author Type: Splicing Supervisor Type: Anesthesia Procedure Notes Filed: 07/09/2024 11:47 [...] July 09, 2024 TIME: 11:46 AM CSN: [id number] Hospital08-29-2024 NoteHNO ID: [id number] Author: SHILOH NUNEZ RN Service: Care Management [...] Current Advance Directive: Health Care Power of Real Estate Office Manager In Chart: No Forestry Instructor Attempted to Assist with AD Completion: Yes Action: Patient Unwilling Current Living Arrangements and Support Lives with: Spouse/significant other Type of Residence: Private Residence (House) Support: Children, Family members How do you manage to accomplish the following: Independent: Ambulation;Bathe/Shower;Dress;Meals/Meal Prep;Going to the bathroom;Medication Management;Transportation to appointments/community Current Services/Equipment Discharge Planning Patient Goal(s): Be able to go home, General wellness [place] Choice Explained: Are you interested in [...] were you homeless or living in a detention (including now)?: No Utilities In the past 12 months has the [employer], gas, oil, or water Voucheres threatened to shut off services in your home?: No Chart reviewed. Patient came to the hospital from home with her for a steroid injection for back pain 07/08 at [place]. Post procedure she had slurred speech and weakness. She had an MRI which showed a large hematoma vs epidural abscess. She was transferred to [facility] for a higher level of care. Neurosurgery [...] be obtained and verified we will follow [place] NO. Patient is legally but her has Parkinson's and Dementia- per patient he does not have capacity to make decisions and requires real time trader care. She has 2 adult biological children and they are legal NOK. They are listed below: Buck Hood (son) [phone] Rip Pablito (son) [phone] SIGNATURE: Shiloh Nunez RN PATIENT NAME: Ruben Lobo DATE: July 09, 2024 TIME: 9:08 AM CONTACT #: [phone] Hospital06-22-2022 History of Present illness Narrative* Snehal Cross MD - 05/02/2022 2:15 PM EDT [facility] - NEW PATIENT EVALUATION Rip De La Garza MD ([facility]) [address] [facility] [address] Rip De La Garza MD, MD [address] [facility] [address] De La Garza: Thank you [...] Sundar's absent. Ankle clonus absent. Coordination Right: Mosqdd-gb-twwv normal. Rapid alternating movement normal. Yzcr-mp-ngmx normal. Left: Hmzhdv-yg-buei normal. Rapid alternating movement normal. Hpcs-mv-oxbe normal. Gait Casual gait: Normal stance. Normal [...] Disorders Medication Schedule: Level of service : 84589 (45-59 min). Time spent 46 min on the day of service, which included preparing to see the patient, heow-cf-tlpl patient care, completing clinical documentation, performing a medically appropriate examination and counseling and educating the patient/family/caregiver. Thank you for allowing me to be part of the clinical care of this patient! I look forward to continued participation in the patient s care with you. Please do not hesitate to call with any questions. Sincerely, Snehal Cross MD documented in this [facility]05-24-2022 Miscellaneous Notes* Telephone Encounter - Felicita [...] 03, 2022 9:08 AM documented in this encounterThe [facility]05-20-2022 Miscellaneous Notes* Telephone Encounter - Lizzette Mandujano - 03/30/2022 4:14 PM EDT Called and spoke with patient. She is scheduled for 04/03/2022. Referral scanned into patient's chart. Lizztete Mandujano * Telephone Encounter - Carrie Alvarenga MA - 03/30/2022 2:01 PM EDT New patient referral received from [facility], for patients tremors. I have placed the referral in the PSS box for review and scheduling. Thanks! Carrie Alvarenga MA documented in this [facility] History of Past illness Narrative* Problem Noted Date Resolved Date After-cataract obscuring vision, right 8 11/05/2019 documented as of this encounter (statuses as of 03/30/2022) [facility] History of Past illness Narrative* Problem Noted Date Resolved Date After-cataract obscuring vision, right 8 11/05/2019 documented as of this encounter (statuses as of 04/03/2022) [facility] History of Past illness Narrative* Problem Noted Date Resolved Date After-cataract obscuring vision, right 8 11/05/2019 documented as of this encounter (statuses as of 05/02/2022) [facility] noteNo assessment information availableWSelect [facility] Work Phone: Evaluation note* Diagnosis Essential tremor- Primary Essential and other specified forms of tremor documented in this encounter [facility]* Diagnosis Onset Date Resolution Status Fatigue acute Tremor acute Congenital heart disease chr onic Essential (primary) hypertension chronic Mixed hyperlipidemia chronic Paroxysmal atrial fibrillation chronic [facility] Work Phone: Evaluation note* Diagnosis Onset Date Resolution Status Fatigue acute Tremor acute Congenital heart disease chr onic Essential (primary) hypertension chronic Mixed hyperlipidemia chronic Paroxysmal atrial fibrillation chronic COVID-19 acute [facility] Work Phone: Evaluation note* Diagnosis Onset Date Resolution Status Fatigue acute Tremor acute Congenital heart disease chr onic Essential (primary) hypertension chronic Mixed hyperlipidemia chronic Paroxysmal atrial fibrillation chronic COVID-19 acute CLARISSE (obstructive sleep apnea) [facility] Work Phone: Evaluation note* Diagnosis Onset Date Resolution Status COVID-19 acute CLARISSE (obstructive sleep apnea) chronic [facility] Work Phone: Evaluation note* Diagnosis Onset Date Resolution Status CLARISSE (obstructive sleep apnea) chronic Postoperative bleeding from incision acute Status post total right knee replacement not using cement acute [facility] Work Phone: Evaluation note* Diagnosis Onset Date Resolution Status Syncope acute Congenital heart disease chr onic Essential (primary) hypertension chronic Paroxysmal atrial fibrillation chronic CLARISSE (obstructive sleep apnea) chronic Syncope acute Congenital heart disease chr onic Essential (primary) hypertension chronic Paroxysmal atrial fibrillation chronic [facility] Work Phone: Evaluation note* Diagnosis Typical atrial flutter (HCC)- Primary Longstanding persistent atrial fibrillation (HCC) Congenital heart disease Unspecified congenital anomaly of heart Essential hypertension Unspecified essential hypertension Paraspinal hematoma Contusion of unspecified site CLARISSE on CPAP [facility] Additional Instructions Implant Used?: [facility] Work Phone: Patient's home Plan of care [...] orthopedic bracing Description: Orthopedic bracing to include [place] J collar . Problem:PT Orthopedic Condition Goal:Manage Orthopedic Condition Completed patient instructed on orthopedic bracing including wearing schedule and skin care. Instruct on orthopedic precautions and weight bearing restrictions Description: Orthopedic precautions including- spine, wearing [place] collar at all times except bathing No [...] to call provider. documented in this encounter [facility]'s home Plan of care note* Visit Details [...] orthopedic bracing Description: Orthopedic bracing to include [place] J collar . Problem:PT Orthopedic Condition Goal:Manage Orthopedic Condition Completed patient instructed on orthopedic bracing including how to don/doff and wearing schedule. Instruct on orthopedic precautions and weight bearing restrictions Description: Orthopedic precautions including- spine, wearing [place] collar at all times except bathing No [...] pts permission a photo was uploaded to [employer] for MD to review Instruct on self-management of post surgical and/or non-surgical orthopedic intervention Problem:PT Orthopedic Condition Goal:Manage Orthopedic Condition Completed patient instructed on managagement of orthopedic condition, staying well hydrated, eating foods with high protein, signs and symptoms of infection, follow provider guidance for showering and instructed on when to call provider. [facility]* Visit [...] at this time. documented in this encounter [facility] home Plan of care note* Visit Details [...] orthopedic bracing Description: Orthopedic bracing to include [place] J collar . Problem:PT Orthopedic Condition Goal:Manage Orthopedic Condition Completed patient and caregiver instructed on orthopedic bracing including wearing schedule. Instruct on orthopedic precautions and weight bearing restrictions Description: Orthopedic precautions including- spine, wearing [place] collar at all times except bathing No [...] indicated to help with indigestion. Taking an ekrj-lly-vapwquq probiotic or eating yogurt with live and active cultures three times a day can help prevent antibiotic-associated diarrhea. Call your provider immediately if you develop rashes or hives as this could be a delayed allergic reaction. Seek emergency treatment if you develop severe allergic reaction symptoms such as mouth or tongue swelling. [facility] this [facility]* Visit [...] and shower chair. documented [facility] this encounter [facility]* Visit Details Visit Type -RESPITE COORDINATOR ROUTINE Discipline -Physical Therapy Problems Problem Description [...] orthopedic bracing Description: Orthopedic bracing to include [place] J collar . Problem:PT Orthopedic Condition Goal:Manage Orthopedic Condition Completed patient instructed on orthopedic bracing including how to don/doff, wearing schedule and skin care. Instruct on orthopedic precautions and weight bearing restrictions Description: Orthopedic precautions including- spine, wearing [place] collar at all times except bathing No [...] to call 911. documented [facility] this [facility]* Visit Details Visit Type -EMBROIDERY WORKER UNMADE VISIT Discipline -Home Health Aide Problems Problem Description Start Date Status Goals Interve ntions Home Health Aide Care Plan Disciplines: All Services, EMBROIDERY WORKER 07/15/2024 Active 1 goal linked to scheduled/documente d intervention 3 goal interventions scheduled/documented in this visit Goals Goal Associated Problem Outcome Goal Met? Visit Notes Patient will maintain adequate hygiene and demonstrate safe ambulation,transfers, positioning. Patient status will be reported to incident response manager. Patient will be provided with assistance for IADLs. Home Health Aide Care Plan No Interventions Intervention Associated Problem/Goal Status Variance Visit Notes Provide skin care Description: Provide the following skin care: lotion as patient requests Problem:Home Health Aide Care Plan Goal:Patient will maintain adequate hygiene and demonstrate safe ambulation,transfers, positioning. Patient status will be reported to incident response manager. Patient will be provided with assistance for IADLs. Scheduled Provide oral care Problem:Home Health Aide Care Plan Goal:Patient will maintain adequate hygiene and demonstrate safe ambulation,transfers, positioning. Patient status will be reported to incident response manager. Patient will be provided with assistance for IADLs. Scheduled Bathe patient Description: Bathe patient sponge bath on commode. Problem:Home Health Aide Care Plan Goal:Patient will maintain adequate hygiene and demonstrate safe ambulation,transfers, positioning. Patient status will be reported to incident response manager. Patient will be provided with assistance for IADLs. Scheduled [facility] [...] orthopedic bracing Description: Orthopedic bracing to include [place] collar . Problem:PT Orthopedic Condition Goal:Manage [...] symptoms of DVT/PE. [facility] Visit Details Visit Type -EMBROIDERY WORKER ROUTINE Discipline -Home Health Aide Problems Problem Description Start Date Status Goals Interve ntions Home Health Aide Care Plan Disciplines: All Services, EMBROIDERY WORKER 07/15/2024 Active 1 goal linked to scheduled/documente d intervention 3 goal interventions scheduled/documented in this visit Goals Goal Associated Problem Outcome Goal Met? Visit Notes Patient will maintain adequate hygiene and demonstrate safe ambulation,transfers, positioning. Patient status will be reported to incident response manager. Patient will be provided with assistance for IADLs. Home Health Aide Care Plan No Interventions Intervention Associated Problem/Goal Status Variance Visit Notes Provide skin care Description: Provide the following skin care: lotion as patient requests Problem:Home Health Aide Care Plan Goal:Patient will maintain adequate hygiene and demonstrate safe ambulation,transfers, positioning. Patient status will be reported to incident response manager. Patient will be provided with assistance for IADLs. Completed Completed Provide oral care Problem:Home Health Aide Care Plan Goal:Patient will maintain adequate hygiene and demonstrate safe ambulation,transfers, positioning. Patient status will be reported to incident response manager. Patient will be provided with assistance for IADLs. Completed Completed Bathe patient Description: Bathe patient sponge bath on commode. Problem:Home Health Aide Care Plan Goal:Patient will maintain adequate hygiene and demonstrate safe ambulation,transfers, positioning. Patient status will be reported to incident response manager. Patient will be provided with assistance for IADLs. Completed Completed [facility] Visit Details Visit Type -RESPITE COORDINATOR ROUTINE Discipline -Physical Therapy Problems Problem Description [...] orthopedic bracing Description: Orthopedic bracing to include [place] J collar . Problem:PT Orthopedic Condition Goal:Manage Orthopedic Condition Completed patient instructed on orthopedic bracing including how to don/doff and wearing schedule. Instruct on orthopedic precautions and weight bearing restrictions Description: Orthopedic precautions including- spine, wearing [place] collar at all times except bathing No [...] to call 911. [facility] Visit Details Visit Type -EMBROIDERY WORKER DISC DC W Vi sit Discipline -Home Health Aide Problems Problem Description Start Date Status Goals Interve ntions Home Health Aide Care Plan Disciplines: All Services, EMBROIDERY WORKER 07/15/2024 Active 1 goal linked to scheduled/documente d intervention 3 goal interventions scheduled/documented in this visit Goals Goal Associated Problem Outcome Goal Met? Visit Notes Patient will maintain adequate hygiene and demonstrate safe ambulation,transfers, positioning. Patient status will be reported to incident response manager. Patient will be provided with assistance for IADLs. Home Health Aide Care Plan No Interventions Intervention Associated Problem/Goal Status Variance Visit Notes Provide skin care Description: Provide the following skin care: lotion as patient requests Problem:Home Health Aide Care Plan Goal:Patient will maintain adequate hygiene and demonstrate safe ambulation,transfers, positioning. Patient status will be reported to incident response manager. Patient will be provided with assistance for IADLs. Completed Completed Provide oral care Problem:Home Health Aide Care Plan Goal:Patient will maintain adequate hygiene and demonstrate safe ambulation,transfers, positioning. Patient status will be reported to incident response manager. Patient will be provided with assistance for IADLs. Completed Completed Bathe patient Description: Bathe patient sponge bath on commode. Problem:Home Health Aide Care Plan Goal:Patient will maintain adequate hygiene and demonstrate safe ambulation,transfers, positioning. Patient status will be reported to incident response manager. Patient will be provided with assistance for IADLs. Completed Completed documented in this encounter [facility] Plan of care note* Visit Details [...] Care Plan Disciplines: All Services, Physical Therapy, EMBROIDERY WORKER 07/15/2024 Resolved on 08/17/2024 1 goal linked [...] positioning. Patient status will be reported to incident response manager. Patient will be provided with assistance [...] orthopedic bracing Description: Orthopedic bracing to include [place] collar . Problem:PT Orthopedic Condition Goal:Manage Orthopedic Condition Completed patient instructed on orthopedic bracing including wearing schedule. Instruct on orthopedic precautions and weight bearing restrictions Description: Orthopedic precautions including- spine, wearing [place] collar at all times except bathing No [...] positioning. Patient status will be reported to incident response manager. Patient will be provided with assistance for IADLs. Scheduled Provide oral care Problem:Home Health Aide Care Plan Goal:Patient will maintain adequate hygiene and demonstrate safe ambulation,transfers, positioning. Patient status will be reported to incident response manager. Patient will be provided with assistance for IADLs. Scheduled Bathe patient Description: Bathe patient sponge bath on commode. Problem:Home Health Aide Care Plan Goal:Patient will maintain adequate hygiene and demonstrate safe ambulation,transfers, positioning. Patient status will be reported to incident response manager. Patient will be provided with assistance for IADLs. [facility]uled [facility]No reason for referral information availableWSelect Medical [facility] Work Phone: Chief Complaint and Reason [...] Will Yes August 21 11:21am Power of Real Estate Office Manager Yes August 21, 2021 11:21am Advance Directive Response Recorded Date/ Time Advance Directives No April 13 1:15pm Living Will No July 30, 2022 9:11am Power of Real Estate Office Manager No July 9:11am Advance Directive Response Recorded Date/ Time Advance Directives No April 13 12:15pm Living Will No September 17 10:09am Power of Real Estate Office Manager No September 17, 2022 10:09am Advance Directive Response Recorded Date/ Time Advance Directives No April 13 12:15pm Living Will No October 01, 022 6:10pm Power of Real Estate Office Manager No October 01, 2022 6:10pm Advance Directive Response Recorded Date/ Time Advance Directives No April 13 1:15pm Living Will No October 01, 022 7:10pm Power of Real Estate Office Manager No October 01, 2022 7:10pm Advance Directive Response Recorded Date/ Time Advance Directives No April 13 12:15pm Living Will No October 12 3:18pm Power of Real Estate Office Manager No October 12, 2023 3:18pm Advance Directive Response Recorded Date/ Time Advance Directives No April 13 1:15pm Living Will No October 12 4:18pm Power of Real Estate Office Manager No October 12, 2023 4:18pm Date Activated [...] Do you have a Healthcare Power of Real Estate Office Manager? No July 19, 2024 6:23pm Advance Directives No April 13 1:15pm Advance Directive Response Recorded Date/ Time Do you have a Healthcare Power of Real Estate Office Manager? Yes March 12, 2025 10:30am Name of Medical Power of Real Estate Office Manager Isaac ingram March 12, 2025 10:30am Advance [...] or prosecute any alcohol or drug abuse patient.[facility] the event this information is protected by the Federal Confidentiality of Alcohol and Drug Abuse Patient Records regulations: The Federal rules restrict any use of the information to criminally investigate or prosecute any alcohol or drug abuse patient.[facility]In the event this information is protected by the Federal Confidentiality of Alcohol and Drug Abuse Patient Records regulations: The Federal rules restrict any use of the information to criminally investigate or prosecute any alcohol or drug abuse patient.[facility] the event this information is protected by the Federal Confidentiality of Alcohol and Drug Abuse Patient Records regulations: The Federal rules restrict any use of the information to criminally investigate or prosecute any alcohol or drug abuse patient.[facility] the event this information is protected by the Federal Confidentiality of Alcohol and Drug Abuse Patient Records regulations: The Federal rules restrict any use of the information to criminally investigate or prosecute any alcohol or drug abuse patient.[facility] the event this information is protected by the Federal Confidentiality of Alcohol and Drug Abuse Patient Records regulations: The Federal rules restrict any use of the information to criminally investigate or prosecute any alcohol or drug abuse patient.[facility] the event this information is protected by the Federal Confidentiality of Alcohol and Drug Abuse Patient Records regulations: The Federal rules restrict any use of the information to criminally investigate or prosecute any alcohol or drug abuse patient.[facility]In the event this information is protected [...] or prosecute any alcohol or drug abuse patient.[facility]In the event this information is protected by the Federal Confidentiality of Alcohol and Drug Abuse Patient Records regulations: The Federal rules restrict any use of the information to criminally investigate or prosecute any alcohol or drug abuse patient.[facility]In the event this information is protected by the Federal Confidentiality of Alcohol and Drug Abuse Patient Records regulations: The Federal rules restrict any use of the information to criminally investigate or prosecute any alcohol or drug abuse patient.[facility]In the event this information is protected by the Federal Confidentiality of Alcohol and Drug Abuse Patient Records regulations: The Federal rules restrict any use of the information to criminally investigate or prosecute any alcohol or drug abuse patient.[facility] the event this information is protected by the Federal Confidentiality of Alcohol and Drug Abuse Patient Records regulations: The Federal rules restrict any use of the information to criminally investigate or prosecute any alcohol or drug abuse patient.[facility]In the event this information is protected by the Federal Confidentiality of Alcohol and Drug Abuse Patient Records regulations: The Federal rules restrict any use of the information to criminally investigate or prosecute any alcohol or drug abuse patient.[facility]In the event this information is protected by the Federal Confidentiality of Alcohol and Drug Abuse Patient Records regulations: The Federal rules restrict any use of the information to criminally investigate or prosecute any alcohol or drug abuse patient.[facility]In the event this information is protected by the Federal Confidentiality of Alcohol and Drug Abuse Patient Records regulations: The Federal rules restrict any use of the information to criminally investigate or prosecute any alcohol or drug abuse patient.[facility]In the event this information is protected by the Federal Confidentiality of Alcohol and Drug Abuse Patient Records regulations: The Federal rules restrict any use of the information to criminally investigate or prosecute any alcohol or drug abuse patient.[facility]In the event this information is protected by the Federal Confidentiality of Alcohol and Drug Abuse Patient Records regulations: The Federal rules restrict any use of the information to criminally investigate or prosecute any alcohol or drug abuse patient.[facility]In the event this information is protected by the Federal Confidentiality of Alcohol and Drug Abuse Patient Records regulations: The Federal rules restrict any use of the information to criminally investigate or prosecute any alcohol or drug abuse patient.[facility]In the event this information is protected by the Federal Confidentiality of Alcohol and Drug Abuse Patient Records regulations: The Federal rules restrict any use of the information to criminally investigate or prosecute any alcohol or drug abuse patient.[facility]In the event this information is protected by the Federal Confidentiality of Alcohol and Drug Abuse Patient Records regulations: The Federal rules restrict any use of the information to criminally investigate or prosecute any alcohol or drug abuse patient.[facility]In the event this information is protected by the Federal Confidentiality of Alcohol and Drug Abuse Patient Records regulations: The Federal rules restrict any use of the information to criminally investigate or prosecute any alcohol or drug abuse patient.[facility]In the event this information is protected by the Federal Confidentiality of Alcohol and Drug Abuse Patient Records regulations: The Federal rules restrict any use of the information to criminally investigate or prosecute any alcohol or drug abuse patient.[facility]In the event this information is protected by the Federal Confidentiality of Alcohol and Drug Abuse Patient Records regulations: The Federal rules restrict any use of the information to criminally investigate or prosecute any alcohol or drug abuse patient.[facility]In the event this information is protected by the Federal Confidentiality of Alcohol and Drug Abuse Patient Records regulations: The Federal rules restrict any use of the information to criminally investigate or prosecute any alcohol or drug abuse patient.[facility] Reason for Visit (unrecogniz ed section and content) Reason Comments Referral Request [facility] for Dr. 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 Atrial Fibrillation Persisitent Hypertension Sleep Apnea Does not have C-PAP Care Teams (unrecognized sec tion and content) 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 Specialty Start Date End Date Rip De La Garza MD [address] [place] [id number] PCP - General Family Practice 05/13/18 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 Specialty Start Date End Date Rip De La Garza MD [address] [facility] [place], [place] [id number] PCP - General Family Practice 05/13/18 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 Specialty Start Date End Date Rip De La Garza MD [address] [place], [place] [id number] PCP - General Family Practice 05/13/18 Team [...] Referring P rovider Active Rosario Quan NP, BUCKLE SEWER-C Attending Provider Active Team Status: Inactive Member [...] La Garza MD Primary Care Provider Active BUCKLE SEWERMary Kilgore Attending Provider, Referring Provid er Active Team Status: Inactive Member Role Status Dates Dr. Rip De La Garza MD Primary Care Provider Active Adrianna Box PA, PA Attending Provider, Referr ing Provider Active 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 Specialty Start Date End Date Rip De La Garza MD [address] [place] [id number] PCP - General Family Medicine 05/13/18 [place] [address] [place] [address] [place] [address] Referring Internal Medicine 07/13/24 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 Specialty Start Date End Date Rip De La Garza MD [address] [place] [id number] PCP - General Family Medicine 05/13/18 Regi Riojas MD [address] [place] [address] Referring Internal Medicine 07/13/24 Rip De La Garza MD [address] [facility] [address] [place] [address] Home Care Provider Family Medicine 07/14/24 Pratima Veras, PT [address] [place] [address] [employer] Acute Care 07/14/24 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 Specialty Start Date End Date Rip De La Garza MD [address] [place] [address] PCP - General Family Medicine 05/13/18 Regi Riojas MD [address] [place] [address] Referring Internal Medicine 07/13/24 Rip De La Garza MD [address] [facility] [address] [place] [address] Home Care Provider Family Medicine 07/14/24 Pratima Veras, PT [address] [place] [address] [employer] Acute Care 07/14/24 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 Specialty Start Date End Date Rip De La Garza MD [address] [place] [address] PCP - General Family Medicine 05/13/18 Regi Riojas MD [address] [place] [address] Referring Internal Medicine 07/13/24 Rip De La Garza MD [address] [place] [address] Home Care Provider Family Medicine 07/14/24 Pratima Veras, PT [address] [place] [address] [employer] Acute Care 07/14/24 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 Specialty Start Date End Date Rip De La Garza MD [address] [address] PCP - General Family Medicine 05/13/18 Regi Riojas MD [address] [place] [address] Referring Internal Medicine 07/13/24 Rip De La Garza MD [address] [facility] [address] [place] [address] Home Care Provider Family Medicine 07/14/24 Pratima Veras, PT [address] [place] [address] [employer] Acute Care 07/14/24 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 Specialty Start Date End Date Rip De La Garza MD [address] [place] [address] PCP - General Family Medicine 05/13/18 Regi Riojas MD [address] [place] [address] Referring Internal Medicine 07/13/24 Rip De La Garza MD [address] [facility] [address] [place] [address] Home Care Provider Family Medicine 07/14/24 Pratima Veras, PT [address] [facility] [place] [address] [employer] Acute Care 07/14/24 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 Specialty Start Date End Date Rip De La Garza MD [address] [place] [address] PCP - General Family Medicine 05/13/18 Regi Riojas MD [address] [place] [address] Referring Internal Medicine 07/13/24 Rip De La Garza MD [address] [facility] [address] [place] [address] Home Care Provider Family Medicine 07/14/24 Pratima Veras, PT [address] [place] [address] [employer] Acute Care 07/14/24 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 Start Date End Date Rip De La Garza MD [address] [place] [address] PCP - General Family Medicine 05/13/18 Regi Riojas MD [address] [place] [address] Referring Internal Medicine 07/13/24 Rip De La Garza MD [address] [facility] [address] [place] [address] Home Care Provider Family Medicine 07/14/24 Pratima Veras, PT [address] [place] [address] [employer] Acute Care 07/14/24 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 [employer] provides no warranty or guarantee of the accuracy or completeness of information in this document.
[2025-05-29 22:40] LABS: Reflex Lactate? Y
--- NOTE | 2025-05-29 23:08 | CT_ITS ---
PROCEDURE: CHEST WITHOUT CONTRAST 05/29/2025 REASON FOR EXAM: ABNORMAL CXR WITH FEVER. TECHNIQUE: Chest CT without contrast. Coronal and Sagittal reconstruction series were provided. One or more dose reduction techniques were used (e.g., Automated exposure control, adjustment of the mA and/or kV according to patient size, use of iterative reconstruction technique RADIATION DOSE SUMMARY: CTDlvol: 7.5 mGy DLP: 241 mGycm COMPARISON: Chest radiographs 05/29/2025, CT thoracic spine 07/19/2024 FINDINGS: Lymph nodes: No significant thoracic lymphadenopathy. Heart and Vasculature: Cardiomegaly, predominantly of the atria, similar to prior. Multivessel coronary calcifications. Additionally, there are pericardial calcifications which are unchanged. Marked enlargement of the pulmonary arteries, with the main pulmonary artery measuring 4.4 cm in diameter and the left pulmonary artery measuring 4.8 cm (previously 4.5 cm on 07/19/2024). Aortic atherosclerosis without aneurysm. Lungs and Airways: Respiratory motion limits evaluation. Central airways are predominantly clear. Interlobular septal thickening bilaterally. Consolidation at the periphery of the right middle lobe Pleura: Trace calcification along the pleura overlying the right middle lobe. No significant effusion. No pneumothorax. Upper Abdomen: Small hiatal hernia. Mild thickening of both adrenal glands. Bones: Postoperative changes from laminectomy in the upper thoracic spine. Vertebral body hemangiomas at several levels, unchanged. Degenerative changes of the spine and shoulders. CT/Chest without Contrast IMPRESSION: 1. Slight interval worsening of pulmonary artery dilation since 07/19/2024. Ca rdiomegaly with biatrial enlargement and pericardial calcifications are unchanged. Consider Cardiology consultation, in addition to echocardiogram and MRI if not previously performed. 2. Interlobular septal thickening, likely the result of pulmonary edema. 3. Peripheral consolidation in the right middle lobe may represent atelectasis , though infection could appear similar. Reading Location: [facility]
[2025-05-29 23:51] LABS: Magnesium 2.0 mg/dL (1.5-2.2)
[2025-05-30] VITALS (8 sets, daily range): BP systolic 118–168; BP diastolic 73–94; PULSE 60–103; RESP 15–18; TEMP 36–36.7; O2SAT 93–100; BMI 24.1
[2025-05-30 00:09] LABS: Pro- Brain NATRIURETIC PEPTIDE 1850 pg/mL (<=1800)
[2025-05-30] MEDS: APIXABAN 2.5 MG TABLET (WCH) PO ×3 (00:23→20:38)
[2025-05-30] MEDS: MELATONIN 3 MG TABLET PO (00:23)
[2025-05-30 00:28] LABS: CORTISOL PM 21.20 ug/dL (2.68-10.50)
[2025-05-30] MEDS: 0.9% Normal Saline (1000mL) 1,000 ML 100 ML IV ×2 (00:31→08:46)
[2025-05-30 01:05] LABS: Troponin T High Sensitivity 14 ng/L (<=14)
[2025-05-30 02:50] LABS: Troponin T High Sens 2 HR 15 ng/L (<=14)
--- NOTE | 2025-05-30 03:58 | CPS ---
Patient refused PAP therapy for night time use
[2025-05-30 04:38] LABS: Hematocrit 34.3 % (37-47); Hemoglobin 10.9 g/dL (12.0-15.0); Immature Granulocytes Count 0.020 X10^3/uL (0.0-0.0); Mean Corp Hgb Conc 31.8 g/dL (32-36); Mean Corpuscular Volume 88.2 fL (81-99); Mean Platelet Vol. 10.8 fl (6.2-12.0); NRBC Flagged by Analyzer 0 % (0-5); Platelet Count 112 K/mm3 (150-450); RBC Distribution Width CV 15.0 % (11.6-14.6); RBC Distribution Width SD 47.9 fl (35.1-43.9); Red Blood Count 3.89 M/mm3 (4.2-5.4); White Blood Count 6.5 K/mm3 (4.4-11.0)
[2025-05-30 05:14] LABS: Troponin T High Sens 4 HR 15 ng/L (<=14)
[2025-05-30 05:33] LABS: AST(SGOT) 77 U/L (<=31); Alanine Aminotransfer ALT/SGPT 61 U/L (<=34); Albumin, Serum 3.6 g/dL (3.4-4.8); Alkaline Phosphatase 123 U/L (35-104); Anion Gap 10 (5-15); BUN 22 mg/dL (4-19); BUN/Creat Ratio 27.4 RATIO (10-20); Calcium,Total 8.4 mg/dL (7.6-11.0); Carbon Dioxide 22.3 mmol/L (21.0-32.0); Chloride 108 mmol/L (98-108); Cholesterol 133 mg/dL (<=200); Estimated Creatinine Clearance 44.01 ml/min (50-250); Globulin 2.6 g/dL (2.2-4.2); Glucose 134 mg/dL (70-99); Low Density Lipoprotein Calc. 77 mg/dL; Potassium 4.2 mmol/L (3.3-5.1); Triglycerides 61 mg/dL; Very Low Density Lipoprotein 12 mg/dL (5-40); cholesterol:hdl ratio screen 3.00
--- NOTE | 2025-05-30 06:24 | RAD_ITS ---
PROCEDURE: CHEST 1 VIEW (PORTABLE) 05/30/2025 REASON FOR EXAM: CARDIOGENIC SHOCK TECHNIQUE: Frontal view of the chest. COMPARISON: Chest x-ray study dated 05/29/2025. CT scan of the chest dated 05/29 2025 FINDINGS: The overall chest x-ray findings are similar when compared to the prior chest x- ray study. Hardware: Cardiac leads overlie the chest Heart: Heart is mildly enlarged however similar in size and configuration when compared to the prior study. Arteriosclerotic vascular disease of the coronary vessels is noted. Pericardial calcifications are noted and similar when compared to the prior study. There is increased prominence and a rounded density at the aortopulmonary window and similar when compared to the prior study. Mediastinum: Arteriosclerotic vascular disease of the aorta is noted. Trachea is midline. Pulmonary vasculature is enlarged and similar when compared to the prior study. Lungs: Prominent interstitial markings are noted throughout both lungs and are similar when compared to the prior study. There are no pneumothoraces. There are no pleural effusions. Bones: Diffuse osteopenia of the bony thorax is seen. Degenerative changes of the thoracic spine are noted. Arthritic changes of the shoulders are noted. RAD/Chest 1 View (Portable) IMPRESSION: Chest x-ray findings compatible with pulmonary edema and/or pneumonia. The rounded opacity in the aortopulmonary window is similar when compared to th e prior study. Reading Location: [id number]
[2025-05-30] MEDS: Cholecalciferol (VIT D3) 25 MCG TABLET (1,000 UNITS) 50 MCG PO (08:47)
[2025-05-30] MEDS: Magnesium Chloride 64 MG Delay Rel.Tablet 128 MG PO (08:48)
--- NOTE | 2025-05-30 08:59 | PCM.CONS.C ---
Assessment & Plan Assessment/Plan (1) Shock: PLAN: Likely distributive. Improved with IV fluids. Started on IV antibiotics. (2) Atrial flutter, paroxysmal: PLAN: On apixaban. Resume diltiazem. Hold metoprolol. (3) Pneumonia: PLAN: Started on ceftriaxone. (4) History of hypertension: PLAN: Resume diltiazem. HPI Consult Data Date of Consult: 05/30/25 HPI Narrative Reason for Consultation: Hypotension HPI Narrative: 80-year-old female with past medical history significant for paroxysmal atrial flutter/fibrillation, hypertension mitral regurgitation. She presented to the hospital with complaints of generalized weakness and fatigue. According to her, her symptoms started few days ago but particularly worsened yesterday. In the emergency room, she was noted to be hypotensive with systolic blood pressure in the 60s. Also noted to be in atrial flutter with variable conduction. Ventricular rate in the 40s. She was administered fluids in the emergency room. Also started on a dopamine infusion. According to the ER physician note, she was then noted to be hypothermic. She was started on empiric antibiotics. A CT scan of the chest showed possible right middle lobe consolidation versus atelectasis. Denies any chest pains or shortness of breath. No palpitations. Denies any syncope or presyncope. No orthopnea. No PND. [facility] Medical History Postoperative hematoma Dehydration Dizziness Intractable pain UTI (urinary tract infection) Wears hearing aid Arthritis Restless legs Shortness of breath on exertion On amiodarone therapy Wears dentures Post-menopausal Depression Anxiety Rheumatoid arthritis History of hiatal hernia Gastric reflux Non-smoker CPAP (continuous positive airway pressure) dependence Sleep apnea History of pain when walking History of echocardiogram History of stress test Hypertension Cardiology follow-up encounter History of atrial fibrillation History of cardioversion CLARISSE (obstructive sleep apnea) Mixed hyperlipidemia retirement current use of 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 drug Pulmonary hypertension Chronic cholecystitis with calculus Paroxysmal atrial fibrillation Essential (primary) hypertension Esophageal hiatal hernia 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, 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 Atrial flutter GERD (gastroesophageal reflux disease) Home Medications ?Medication ?Instructions ?Recorded ?Last Taken ?Type sertraline 100 mg tablet 100 mg PO QHS sleep 12/14/20 03/11/25 History cholecalciferol (vitamin D3) 50 50 mcg PO DAILY vitamin 07/19/24 03/11/25 History mcg (2,000 unit) capsule pantoprazole 40 mg tablet,delayed 40 mg PO DAILY reflux #90 tabs 08/19/24 03/11/25 Rx release magnesium oxide 400 mg PO DAILY SUPPLEMENT 03/12/25 03/11/25 History apixaban 2.5 mg tablet (Eliquis) 2.5 mg PO BID 05/29/25 Unknown History ascorbic acid (vitamin C) 500 mg 500 mg PO QDAY 05/29/25 Unknown History tablet diltiazem HCl 180 mg 180 mg PO Q24H 05/29/25 Unknown History capsule,extended release 24 hr duloxetine 20 mg capsule,delayed 20 mg PO DAILY 05/29/25 Unknown History release hydrocodone-acetaminophen 5-325mg 1 tab PO Q6H PRN PRN pain 05/29/25 Unknown History 5mg-325mg indapamide 1.25 mg tablet 0.625 mg PO DAILY 05/29/25 Unknown History metoprolol succinate 50 mg 50 mg PO QPM 05/29/25 Unknown History tablet,extended release 24 hr Allergy/AdvReac Type Severity Reaction Status Date / Time No Known Allergies Allergy Verified 03/22/25 14:44 Family History Mother Hypertension Arthritis Heart disease Father Cancer Brother Cancer Son CVA (cerebral vascular accident) Diabetes Brother TIA (transient ischemic attack) Sister Cancer kidney cancer Thyroid disorder Surgical History Status post right knee replacement Hx of cystoscopy History of arthroscopy of right knee History of cardiac catheterization History of open heart surgery History of cholecystectomy History of atrial septal defect repair History of appendectomy Status post laparoscopic Himanshu fundoplication (~11/2018) History of hysterectomy Social History Smoking Status: Never smoker alcohol intake: never substance use type: does not use caffeine: Yes Type: coffee Number of servings: 1 what type of physical activity do you participate in: walking frequency: daily duration: 30-45 minutes/day seatbelt use: always do you feel safe at home: Yes Physical Exam Narrative No apparent distress. Heart sounds 1 and 2 noted. Chest with decreased breath sounds on the right side. Alert oriented x 3. No ankle edema. Risk Stratification Risk Stratification Applicable: No Objective Data Vital Signs: Vital Signs Temp Pulse Resp BP Pulse Ox O2 Del Method O2 Flow Rate 96.8 F L 101 H 15 168/94 H 98 Nasal Cannula 2 05/30/25 06:05 05/30/25 06:05 05/30/25 06:05 05/30/25 06:05 05/30/25 06:05 05/30/25 06:05 05/30/25 06:05 Oxygen Flow Rate (L/min) 2 Oxygen Delivery Method Nasal Cannula Weight: 123 lb 8 oz Body Mass Index (BMI) 24.1 Intake & Output: Intake and Output for Last 24 Hours 05/28/25 05/29/25 05/30/25 23:59 23:59 23:59 Intake Total 3659.1 / 3659.1 825 / 825 Output Total 750 / 750 Balance 3649.1 / 3649.1 75 / 75 Lab / Micro Data 05/30/25 04:26 05/30/25 04:26 Labs: Laboratory Results - last 24 hr 05/29/25 18:15: WBC 7.6, RBC 4.34, Hgb 12.2, Hct 38.2, MCV 88.0, MCH 28.1, MCHC 31.9 L, RDW Std Deviation 48.8 H, RDW Coeff of Reji 15.1 H, Plt Count 181, MPV 11.6, Immature Gran % (Auto) 0.400, Neut % (Auto) 61.1, Lymph % (Auto) 27.1, [place] % (Auto) 9.4, Eos % (Auto) 1.2, Baso % (Auto) 0.8, Absolute Neuts (auto) 4.6, Absolute Lymphs (auto) 2.05, Nucleated RBC % 0, PT 16.3 H, INR 1.3, APTT 31.7, Sodium 139, Potassium 4.2, Chloride 103, Carbon Dioxide 22.8, Anion Gap 13, BUN 32 H, Creatinine 1.43 H, Estim Creat Clear Calc 24.46 L, Est GFR (MDRD) Non-Af 37 L, BUN/Creatinine Ratio 22.4 H, Glucose 211 H, Lactic Acid 2.8 H*, Calcium 9.4, Magnesium 2.0, Total Bilirubin 0.46, AST 30, ALT 16, Alkaline Phosphatase 130 H, NT pro BNP II 1850 H, Total Protein 6.9, Albumin 4.1, Globulin 2.8, Albumin/Globulin Ratio 1.4, TSH 3.430, Cortisol PM Sample 21.20 H 05/29/25 18:25: Blood Type O POSITIVE, Antibody Screen NEGATIVE 05/29/25 19:56: Urine Color Yellow, Urine Clarity Sl. Cloudy, Urine pH 5.0, Ur Specific [place] 1.020, Urine Protein 100 H, Urine Glucose (UA) Normal, Urine Ketones 5 H, Urine Occult Blood 10 H, Urine Nitrite Negative, Urine Bilirubin 1 H, Urine Urobilinogen 1 H, Ur Leukocyte Esterase 100 H, Urine RBC 0-5 SEEN, Urine WBC 0-5 SEEN, Ur Squamous Epith Cells 0-5 SEEN, Ur Transition Epith Cell 0-5 SEEN, Calcium Oxalate Crystal 1+, Urine Bacteria 2+, Hyaline Casts 50-100 SEEN, Urine Mucus 1+ 05/29/25 23:39: Lactic Acid < 1.0 05/30/25 00:26: Troponin T High Sens 14 D 05/30/25 02:20: Troponin T Hi Sens 2 Hr 15 H 05/30/25 04:26: WBC 6.5, RBC 3.89 L, Hgb 10.9 L, Hct 34.3 L, MCV 88.2, MCH 28.0, MCHC 31.8 L, RDW Std Deviation 47.9 H, RDW Coeff of Reji 15.0 H, Plt Count 112 L, MPV 10.8, Immature Gran % (Auto) 0.300, Neut % (Auto) 70.5 H, Lymph % (Auto) 19.4, [place] % (Auto) 9.1, Eos % (Auto) 0.2, Baso % (Auto) 0.5, Absolute Neuts (auto) 4.6, Absolute Lymphs (auto) 1.26, Nucleated RBC % 0, Sodium 140, Potassium 4.2, Chloride 108, Carbon Dioxide 22.3, Anion Gap 10, BUN 22 H, Creatinine 0.80, Estim Creat Clear Calc 44.01 L, Est GFR (MDRD) Non-Af 75, BUN/Creatinine Ratio 27.4 H, Glucose 134 H, Calcium 8.4, Phosphorus 4.1, Total Bilirubin 0.51, AST 77 H, ALT 61 H, Alkaline Phosphatase 123 H, Troponin T Hi Sens 4Hr 15 H, Total Protein 6.2, Albumin 3.6, Globulin 2.6, Albumin/Globulin Ratio 1.4, Triglycerides 61, Cholesterol 133, LDL Cholesterol, Calc 77, VLDL Cholesterol 12, HDL Cholesterol 44, Cholesterol/HDL Ratio 3.00 Micro: Microbiology 05/29/25 22:50 Mucosa - Nasopharyngeal Respiratory Panel (PCR) - Final Cardiology Labs/Tests 05/29/25 18:15: WBC 7.6, RBC 4.34, Hgb 12.2, Hct 38.2, MCV 88.0, MCH 28.1, MCHC 31.9 L, Plt Count 181, MPV 11.6, Immature Gran % (Auto) 0.400, Neut % (Auto) 61.1, Lymph % (Auto) 27.1, [place] % (Auto) 9.4, Eos % (Auto) 1.2, Baso % (Auto) 0.8, Absolute Neuts (auto) 4.6, Nucleated RBC % 0, PT 16.3 H, INR 1.3, APTT 31.7, Sodium 139, Potassium 4.2, Chloride 103, Carbon Dioxide 22.8, Anion Gap 13, BUN 32 H, Creatinine 1.43 H, Est GFR (MDRD) Non-Af 37 L, BUN/Creatinine Ratio 22.4 H, Glucose 211 H, Lactic Acid 2.8 H*, Calcium 9.4, Magnesium 2.0, Total Bilirubin 0.46 05/29/25 19:56: Urine Color Yellow, Urine Clarity Sl. Cloudy, Urine pH 5.0, Ur Specific [place] 1.020, Urine Protein 100 H, Urine Glucose (UA) Normal, Urine Ketones 5 H, Urine Occult Blood 10 H, Urine Nitrite Negative, Urine Bilirubin 1 H, Urine Urobilinogen 1 H, Ur Leukocyte Esterase 100 H, Urine RBC 0-5 SEEN, Urine WBC 0-5 SEEN 05/29/25 23:39: Lactic Acid < 1.0 05/30/25 04:26: WBC 6.5, RBC 3.89 L, Hgb 10.9 L, Hct 34.3 L, MCV 88.2, MCH 28.0, MCHC 31.8 L, Plt Count 112 L, MPV 10.8, Immature Gran % (Auto) 0.300, Neut % (Auto) 70.5 H, Lymph % (Auto) 19.4, [place] % (Auto) 9.1, Eos % (Auto) 0.2, Baso % (Auto) 0.5, Absolute Neuts (auto) 4.6, Nucleated RBC % 0, Sodium 140, Potassium 4.2, Chloride 108, Carbon Dioxide 22.3, Anion Gap 10, BUN 22 H, Creatinine 0.80, Est GFR (MDRD) Non-Af 75, BUN/Creatinine Ratio 27.4 H, Glucose 134 H, Calcium 8.4, Phosphorus 4.1, Total Bilirubin 0.51, Triglycerides 61, Cholesterol 133, VLDL Cholesterol 12, HDL Cholesterol 44, Cholesterol/HDL Ratio 3.00 Rhythm: Presently sinus rhythm EKG:ECG done in the emergency room showed atrial flutter with variable AV block. Ventricular rate 45 bpm. ECHO: Stress Test: Cardiac Cath: PCI: CT Surgery: Holter monitor: EPS: PPM: CXR: Chest CT Scan: Radiography Diagnostic Testing: Radiology Impression Chest X-Ray 05/29/25 18:45 IMPRESSION: 1. Increased interstitial markings, which may represent pulmonary edema or atypical/viral infection 2. Opacity at the aortopulmonary window, in keeping with known enlargement of the pulmonary artery in this location, appears intervally enlarged compared to most recent radiographs on 07/19/2024. Reading Location: [facility] Chest CT 05/29/25 23:08 IMPRESSION: 1. Slight interval worsening of pulmonary artery dilation since 07/19/2024. Cardiomegaly with biatrial enlargement and pericardial calcifications are unchanged. Consider Cardiology consultation, in addition to echocardiogram and MRI if not previously performed. 2. Interlobular septal thickening, likely the result of pulmonary edema. 3. Peripheral consolidation in the right middle lobe may represent atelectasis, though infection could appear similar. Reading Location: [id number] Chest X-Ray 05/30/25 06:24 IMPRESSION: Chest x-ray findings compatible with pulmonary edema and/or pneumonia. The rounded opacity in the aortopulmonary window is similar when compared to the prior study. Reading Location: [id number]
--- NOTE | 2025-05-30 09:07 | ECHOL_ITS ---
Reason For Study Reason For Study: AFib/Flutter Procedure This was a limited 2D transthoracic echocardiogram. Exam performed portable in patient room. Left Ventricle Normal size and thickness. The LV ejection fraction is 55 %. Diastolic function is indeterminate. Right Ventricle Normal right ventricle. Atria The left atrium is severely enlarged. The right atrium is moderately enlarged. Mitral Valve Moderate (2+) mitral valve insufficiency. Tricuspid Valve Moderately severe (3+) tricuspid valve insufficiency. Right ventricular systolic pressure estimated to be 55 mmHg. Aortic Valve Trisinus/trileaflet aortic valve. Trivial aortic valve insufficiency. Pulmonic Valve Mild stenosis of the pulmonic valve. Great Vessels Normal sized aortic root. Pericardium/Pleural No pericardial effusion. MMode/2D Measurements & Calculations LVIDd: 3.6 cm IVSd: 0.88 cm LAV(MOD-bp): 82.8 ml LVIDs: 2.8 cm LVPWd: 1.1 cm LAV(MOD-bp) Indexed: 55.1 ml/m2 FS: 22.6 % LAV(MOD- sp2): 68.0 ml LAV(MOD- sp4): 91.9 ml RVOT diam: 2.0 cm SV(MOD-sp4): 29.5 ml LVAd ap4: 21.3 cm2 LVLd ap4: 6.8 cm SI(MOD-sp4): 19.6 ml/m2 EDV(MOD-sp4): 56.5 ml EDV(sp4-el): 56.6 ml LVAs ap4: 14.0 cm2 LVLs ap4: 6.1 cm ESV(MOD-sp4): 27.1 ml ESV(sp4-el): 27.0 ml EF(MOD-sp4): 52.2 % EF(sp4-el): 52.2 % SV(sp4-el): 29.5 ml LA A4 area: 27.3 cm2 RA A4 area: 22.3 cm2 Doppler Measurements & Calculations AI max bart: 409.2 cm/sec PA V2 max: 188.3 cm/sec SV(RVOT): 91.0 ml AI max P.0 mmHg PA V2 mean: 118.8 cm/sec AI dec slope: 206.3 cm/sec2 PA mean PG (full): 2.0 mmHg AI P1/2t: 580.8 msec TR max bart: 338.0 cm/sec TR max P.7 mmHg ECHO/Echo, Limited Study Interpretation Summary The LV ejection fraction is 55 %. Diastolic function is indeterminate. The left atrium is severely enlarged. The right atrium is moderately enlarged. Moderate (2+) mitral valve insufficiency. Moderately severe (3+) tricuspid valve insufficiency. Right ventricular systolic pressure estimated to be 55 mmHg. Mild stenosis of the pulmonic valve. Ordering Physician: Yasmin Contreras Referring Physician: Fadi Krueger Performed By: Jhonathan Sharp RCS
--- NOTE | 2025-05-30 09:26 | PCM.PN.HOSP ---
Reason for Visit Chief Complaint: Weakness and Lightheadedness. Objective Data Objective Data Vital Signs: Vital Signs Temp Pulse Resp BP Pulse Ox O2 Del Method O2 Flow Rate 96.8 F L 101 H 15 168/94 H 98 Nasal Cannula 2 05/30/25 06:05 05/30/25 06:05 05/30/25 06:05 05/30/25 06:05 05/30/25 06:05 05/30/25 06:05 05/30/25 06:05 Oxygen Flow Rate (L/min) 2 Oxygen Delivery Method Nasal Cannula Weight: 123 lb 8 oz Body Mass Index (BMI) 24.1 Intake & Output: Intake and Output for Last 24 Hours 05/28/25 05/29/25 05/30/25 23:59 23:59 23:59 Intake Total 3659.1 / 3659.1 825 / 825 Output Total 750 / 750 Balance 3649.1 / 3649.1 75 / 75 Lab / Micro Data 05/30/25 04:26 05/30/25 04:26 Labs: Laboratory Results - last 24 hr 05/29/25 18:15: WBC 7.6, RBC 4.34, Hgb 12.2, Hct 38.2, MCV 88.0, MCH 28.1, MCHC 31.9 L, RDW Std Deviation 48.8 H, RDW Coeff of Reji 15.1 H, Plt Count 181, MPV 11.6, Immature Gran % (Auto) 0.400, Neut % (Auto) 61.1, Lymph % (Auto) 27.1, [place] % (Auto) 9.4, Eos % (Auto) 1.2, Baso % (Auto) 0.8, Absolute Neuts (auto) 4.6, Absolute Lymphs (auto) 2.05, Nucleated RBC % 0, PT 16.3 H, INR 1.3, APTT 31.7, Sodium 139, Potassium 4.2, Chloride 103, Carbon Dioxide 22.8, Anion Gap 13, BUN 32 H, Creatinine 1.43 H, Estim Creat Clear Calc 24.46 L, Est GFR (MDRD) Non-Af 37 L, BUN/Creatinine Ratio 22.4 H, Glucose 211 H, Lactic Acid 2.8 H*, Calcium 9.4, Magnesium 2.0, Total Bilirubin 0.46, AST 30, ALT 16, Alkaline Phosphatase 130 H, NT pro BNP II 1850 H, Total Protein 6.9, Albumin 4.1, Globulin 2.8, Albumin/Globulin Ratio 1.4, TSH 3.430, Cortisol PM Sample 21.20 H 05/29/25 18:25: Blood Type O POSITIVE, Antibody Screen NEGATIVE 05/29/25 19:56: Urine Color Yellow, Urine Clarity Sl. Cloudy, Urine pH 5.0, Ur Specific [place] 1.020, Urine Protein 100 H, Urine Glucose (UA) Normal, Urine Ketones 5 H, Urine Occult Blood 10 H, Urine Nitrite Negative, Urine Bilirubin 1 H, Urine Urobilinogen 1 H, Ur Leukocyte Esterase 100 H, Urine RBC 0-5 SEEN, Urine WBC 0-5 SEEN, Ur Squamous Epith Cells 0-5 SEEN, Ur Transition Epith Cell 0-5 SEEN, Calcium Oxalate Crystal 1+, Urine Bacteria 2+, Hyaline Casts 50-100 SEEN, Urine Mucus 1+ 05/29/25 23:39: Lactic Acid < 1.0 05/30/25 00:26: Troponin T High Sens 14 D 05/30/25 02:20: Troponin T Hi Sens 2 Hr 15 H 05/30/25 04:26: WBC 6.5, RBC 3.89 L, Hgb 10.9 L, Hct 34.3 L, MCV 88.2, MCH 28.0, MCHC 31.8 L, RDW Std Deviation 47.9 H, RDW Coeff of Reji 15.0 H, Plt Count 112 L, MPV 10.8, Immature Gran % (Auto) 0.300, Neut % (Auto) 70.5 H, Lymph % (Auto) 19.4, [place] % (Auto) 9.1, Eos % (Auto) 0.2, Baso % (Auto) 0.5, Absolute Neuts (auto) 4.6, Absolute Lymphs (auto) 1.26, Nucleated RBC % 0, Sodium 140, Potassium 4.2, Chloride 108, Carbon Dioxide 22.3, Anion Gap 10, BUN 22 H, Creatinine 0.80, Estim Creat Clear Calc 44.01 L, Est GFR (MDRD) Non-Af 75, BUN/Creatinine Ratio 27.4 H, Glucose 134 H, Calcium 8.4, Phosphorus 4.1, Total Bilirubin 0.51, AST 77 H, ALT 61 H, Alkaline Phosphatase 123 H, Troponin T Hi Sens 4Hr 15 H, Total Protein 6.2, Albumin 3.6, Globulin 2.6, Albumin/Globulin Ratio 1.4, Triglycerides 61, Cholesterol 133, LDL Cholesterol, Calc 77, VLDL Cholesterol 12, HDL Cholesterol 44, Cholesterol/HDL Ratio 3.00 Micro: Microbiology 05/29/25 22:50 Mucosa - Nasopharyngeal Respiratory Panel (PCR) - Final Radiography Diagnostic Testing: Radiology Impression Chest X-Ray 05/29/25 18:45 IMPRESSION: 1. Increased interstitial markings, which may represent pulmonary edema or atypical/viral infection 2. Opacity at the aortopulmonary window, in keeping with known enlargement of the pulmonary artery in this location, appears intervally enlarged compared to most recent radiographs on 07/19/2024. Reading Location: [id number] Chest CT 05/29/25 23:08 IMPRESSION: 1. Slight interval worsening of pulmonary artery dilation since 07/19/2024. Cardiomegaly with biatrial enlargement and pericardial calcifications are unchanged. Consider Cardiology consultation, in addition to echocardiogram and MRI if not previously performed. 2. Interlobular septal thickening, likely the result of pulmonary edema. 3. Peripheral consolidation in the right middle lobe may represent atelectasis, though infection could appear similar. Reading Location: [facility] Chest X-Ray 05/30/25 06:24 IMPRESSION: Chest x-ray findings compatible with pulmonary edema and/or pneumonia. The rounded opacity in the aortopulmonary window is similar when compared to the prior study. Reading Location: [id number] Physical Exam Narrative Patient complain of weakness and tiredness. No chest pain pressure or tightness. Mild chronic cough. [place] very weak tired almost passed out but did not pass out. lunchroom monitor shows irregular rhythm in 100s with alternating PVCs Seen and examined General: Alert, Oriented x3, Cooperative. BMI 24.1 kg/m? HEENT: Atraumatic, PERRLA, EOMI, Normocephalic. Oral: No Gingival or Mucosal Lesions/ Ulcerations Neck: Supple, No JVD, Negative Carotid Bruits Chest wall/Lungs: Air entry diminished in bilateral lung bases. Bilateral basal crepitations Cardiovascular: S1-S2 irregular, S2 loud. Sinus with alternating PVCs no murmur Abdomen: Bowel Sounds Present, Soft, Non Tender, Non-Distended : Sampson catheter. Dark-colored urine. No dysuria. No renal angle tenderness. No suprapubic tenderness. Extremities: No edema, Capillary Refill Less than 3 Seconds Skin: No rashes, No breakdown Musculoskeletal: No Tenderness to Palpation of Joints or Extremities Neurological: Cranial nerves II-XII grossly intact, DTR 2+/4. No acute focal neurological deficit. Psych/Mental Status: Normal Affect, Appropriate. Assessment & Plan Assessment/Plan (1) Cardiogenic shock: (2) Symptomatic bradycardia: (3) Hypotension: QUALIFIERS: Hypotension type: unspecified hypotension type Qualified Code(s): I95.9 - Hypotension, unspecified (4) Hypothermia: QUALIFIERS: Encounter type: initial encounter Qualified Code(s): T68.XXXA - Hypothermia, initial encounter (5) Atypical atrial flutter: (6) Lactic acidosis: (7) AURELIA (acute kidney injury): (8) Adverse drug reaction: QUALIFIERS: Encounter type: initial encounter Qualified Code(s): T50.905A - Adverse effect of unspecified drugs, medicaments and biological substances, initial encounter PLAN: Plan 80-year-old female was brought to ED by her sister for increased weakness lightheadedness, nauseated, feeling like pass out while she was taking dinner yesterday. She has not been feeling well/generalized weakness for some time. Patient has chronic cough, not able to clear up phlegm. In the ED she was found to have atrial flutter with bradycardia, heart rate in 40s, BP 160s. She has a history of type II AV block 1. Shock most likely cardiogenic probably distributive shock: Patient had severe bradycardia with atrial flutter, 45/min with BP in the 60s. She had 1 mg atropine, dopamine drip was started after discussion with lab associate. Lactic acidosis 2.8. Repeat lactic acid less than 1.0 creatinine 1.43 from baseline 0.6. Chest x-ray today reviewed and shows interstitial edema with probability of infiltrate. Pulmonary artery also symptoms prominent with concern of PAH. Hypotension has resolved. Currently heart rate sinus and 108/min.BP 168/94. TSH 3.430, Cortisol PM Sample 21.20 H. Serial troponin does not show any significant delta change. ACS ruled out. proBNP elevated at 350. Troponin is 14,15 and 15. Liver chemistry shows elevated AST ALT probably due to shock liver. Cultures pending Discussed with lab associate Dr. Contreras. Suggested starting antibiotic therefore started on IV ceftriaxone and azithromycin. 2. Atrial flutter/A-fib with bradycardia and hypotension: On apixaban. Diltiazem resumed. Hold metoprolol. Probably due to metoprolol and diltiazem. 3. Pulmonary artery hypertension: CT chest shows worsening dilatation of pulmonary artery compared to previous CT scan of 2023. 2D echo is ordered 4. AURELIA; with elevated serum creatinine of 1.43 mg/dL (up from 0.69 mg/dL last admission): Patient has pulmonary crepitations and blood pressure is 160s systolic therefore IV fluid started. Urine output 250 mL. Monitor intake and output. Patient has Sampson catheter. Repeat BUN/creatinine improved to 22 and 0.80 on baseline. AURELIA resolved. UA positive LE 100 H, Urine RBC 0-5 SEEN, Urine WBC 0-5 SEEN but patient denies any recent blood intact symptoms including increased frequency urgency or burning micturition. Urine culture pending. 5 history of admission here from March 12, 2025 to March 13, 2025 for treatment of atrial fibrillation; with 2-1 block and EKG in the ER revealing Mobitz type II AV block with echocardiogram on March 13, 2025 that revealed LVEF ~60% with 1+ mitral valve insufficiency and 2+ tricuspid valve insufficiency: Patient saw EP Dr. Dr. More from [facility]iology past Saturday about 6 days ago 7. Congenital heart disease with ASD; s/p repair, paroxysmal atrial fibrillation: Noted 8. Essential hypertension; blood pressure is elevated. Hold metoprolol 9. Chronic hyperlipidemia; currently not on treatment -lipid profile shows LDL 77, TC 133, TG 61. HDL 44. OA; with history of right TKR plus chronic back pain; s/p laminectomy on oxycodone nightly as needed - Give acetaminophen as needed for [id number] (level 1-5/10) pain or fever. Give oxycodone as needed for severe (level 6-10/10) pain. DVT prophylaxis - Patient is already on apixaban as outlined in #6 which will be continued. Living will/advanced directive/end of life care: Patient does not have living will or advanced directive. She states her next of kin is her . After discussion of benefits/risks procedures involved with full code, DNR CC arrest and DNR CC, the patient opted for full code. At this time, patient is not sure about artificial life support including intubation, tube feed, ventilator and/chest compression, central venous catheter, vasopressor and DC shock if needed. For now until she makes disease and will keep full code Total time spent in [id number] encounter in discussion of advanced directive 17 minutes. Microbiology Past 72 Hours 05/29/25 22:50 Mucosa - Nasopharyngeal Respiratory Panel (PCR) - Final Laboratory Results 05/29/25 18:15: WBC 7.6, RBC 4.34, Hgb 12.2, Hct 38.2, MCV 88.0, MCH 28.1, MCHC 31.9 L, RDW Std Deviation 48.8 H, RDW Coeff of Reji 15.1 H, Plt Count 181, MPV 11.6, Immature Gran % (Auto) 0.400, Neut % (Auto) 61.1, Lymph % (Auto) 27.1, [place] % (Auto) 9.4, Eos % (Auto) 1.2, Baso % (Auto) 0.8, Absolute Neuts (auto) 4.6, Absolute Lymphs (auto) 2.05, Nucleated RBC % 0, PT 16.3 H, INR 1.3, APTT 31.7, Sodium 139, Potassium 4.2, Chloride 103, Carbon Dioxide 22.8, Anion Gap 13, BUN 32 H, Creatinine 1.43 H, Estim Creat Clear Calc 24.46 L, Est GFR (MDRD) Non-Af 37 L, BUN/Creatinine Ratio 22.4 H, Glucose 211 H, Lactic Acid 2.8 H*, Calcium 9.4, Magnesium 2.0, Total Bilirubin 0.46, AST 30, ALT 16, Alkaline Phosphatase 130 H, NT pro BNP II 1850 H, Total Protein 6.9, Albumin 4.1, Globulin 2.8, Albumin/Globulin Ratio 1.4, TSH 3.430, Cortisol PM Sample 21.20 H 05/29/25 18:25: Blood Type O POSITIVE, Antibody Screen NEGATIVE 05/29/25 19:56: Urine Color Yellow, Urine Clarity Sl. Cloudy, Urine pH 5.0, Ur Specific [place] 1.020, Urine Protein 100 H, Urine Glucose (UA) Normal, Urine Ketones 5 H, Urine Occult Blood 10 H, Urine Nitrite Negative, Urine Bilirubin 1 H, Urine Urobilinogen 1 H, Ur Leukocyte Esterase 100 H, Urine RBC 0-5 SEEN, Urine WBC 0-5 SEEN, Ur Squamous Epith Cells 0-5 SEEN, Ur Transition Epith Cell 0-5 SEEN, Calcium Oxalate Crystal 1+, Urine Bacteria 2+, Hyaline Casts 50-100 SEEN, Urine Mucus 1+ 05/29/25 23:39: Lactic Acid < 1.0 05/30/25 00:26: Troponin T High Sens 14 D 05/30/25 02:20: Troponin T Hi Sens 2 Hr 15 H 05/30/25 04:26: WBC 6.5, RBC 3.89 L, Hgb 10.9 L, Hct 34.3 L, MCV 88.2, MCH 28.0, MCHC 31.8 L, RDW Std Deviation 47.9 H, RDW Coeff of Reji 15.0 H, Plt Count 112 L, MPV 10.8, Immature Gran % (Auto) 0.300, Neut % (Auto) 70.5 H, Lymph % (Auto) 19.4, [place] % (Auto) 9.1, Eos % (Auto) 0.2, Baso % (Auto) 0.5, Absolute Neuts (auto) 4.6, Absolute Lymphs (auto) 1.26, Nucleated RBC % 0, Sodium 140, Potassium 4.2, Chloride 108, Carbon Dioxide 22.3, Anion Gap 10, BUN 22 H, Creatinine 0.80, Estim Creat Clear Calc 44.01 L, Est GFR (MDRD) Non-Af 75, BUN/Creatinine Ratio 27.4 H, Glucose 134 H, Calcium 8.4, Phosphorus 4.1, Total Bilirubin 0.51, AST 77 H, ALT 61 H, Alkaline Phosphatase 123 H, Troponin T Hi Sens 4Hr 15 H, Total Protein 6.2, Albumin 3.6, Globulin 2.6, Albumin/Globulin Ratio 1.4, Triglycerides 61, Cholesterol 133, LDL Cholesterol, Calc 77, VLDL Cholesterol 12, HDL Cholesterol 44, Cholesterol/HDL Ratio 3.00 Charges/Coding Addendum Addendum: Total time of the visit including total time spent in counseling or coordination of care, (more than 50% of the total time, spent in obtaining medical information from nurses and other ancillary care providers ,explaining to the patient about labs, imaging, diagnosis and management of active complex medical conditions), taking care of shock patient, discussion with lab associate review of medical records, clinical update to the patient, review of labs and imaging is 35 minutes. Visit Charges Inpatient E&M: 77880 Subs Hosp L3 Procedures Hospitalists Procedures: 79292 Advncd Care Plan 30 Min
[2025-05-31 02:30] VITALS: BP 124/74; PULSE 101; RESP 16; TEMP 36.4; O2SAT 94
[2025-05-31 05:14] VITALS: BMI 23.4
[2025-05-31 07:02] LABS: Hematocrit 33.9 % (37-47); Hemoglobin 10.7 g/dL (12.0-15.0); Immature Granulocytes Count 0.040 X10^3/uL (0.0-0.0); Mean Corp Hgb Conc 31.6 g/dL (32-36); Mean Corpuscular Volume 88.7 fL (81-99); Mean Platelet Vol. 11.4 fl (6.2-12.0); NRBC Flagged by Analyzer 0 % (0-5); POSITIVE COUNT YES; Platelet Count 96 K/mm3 (150-450); RBC Distribution Width CV 14.9 % (11.6-14.6); RBC Distribution Width SD 48.2 fl (35.1-43.9); Red Blood Count 3.82 M/mm3 (4.2-5.4); White Blood Count 5.1 K/mm3 (4.4-11.0)
[2025-05-31 07:13] LABS: Differential Indicated SCAN CRITERIA MET
[2025-05-31 07:47] LABS: CPK Total, Creatine Kinase 38 U/L (24-195)
[2025-05-31 09:14] VITALS: BP 149/94; PULSE 105; RESP 16; TEMP 37.2; O2SAT 90
[2025-05-31] MEDS: 0.9% Saline Lock 10 ML Syringe IV ×2 (09:21→22:08)
[2025-05-31] MEDS: Cholecalciferol (VIT D3) 25 MCG TABLET (1,000 UNITS) 50 MCG PO (09:21)
[2025-05-31] MEDS: Magnesium Chloride 64 MG Delay Rel.Tablet 128 MG PO (09:21)
[2025-05-31] MEDS: APIXABAN 2.5 MG TABLET (WCH) PO ×2 (09:22→22:07)
--- NOTE | 2025-05-31 09:58 | CON.PCM.CA_ITS ---
Assessment & Plan Assessment/Plan (1) Atrial flutter, paroxysmal: PLAN: Patient carries a history of paroxysmal atrial flutter both typical and atypical as well as paroxysmal atrial fibrillation. Currently telemetry shows sinus tach at 102 bpm she was in atrial fibrillation at 120 bpm at 0400 hrs. today. The patient's treatment has been oral anticoagulation with Eliquis 2.5 mg twice daily given her age and weight. And rate control with a combination of diltiazem and metoprolol. I would recommend we reintroduce metoprolol slowly given her hypotension on presentation. And then transition her back to her home dosing regimen. (2) H/O congenital atrial septal defect (ASD) repair: PLAN: Status post surgical ASD repair in 1962. This does complicate her atrial tachyarrhythmia therapy. She has been evaluated by EP at [facility] by Dr. Johnathan Thakur. The best treatment was felt to be rate control with oral anticoagulation long-term. (3) Essential (primary) hypertension: PLAN: Patient's blood pressure is now returned it is in the 145?150 systolic range. Will slowly reinstitute her rate modulating drugs with diltiazem and metoprolol. Her home dosing was diltiazem CD1 180 mg in the morning and metoprolol succinate 50 mg in the evening. (4) Shock: PLAN: Patient originally presented with a blood pressure of 60 was resuscitated with volume and transient inotropes. Is uncertain of the etiology of this shock. It does not appear to be primarily cardiogenic. The patient was having some shaking chills but and dysuria but only after placement of a Sampson catheter on admission. The patient remains afebrile today. There is some mention of a medication reaction of some type. But I cannot find documentation of it. PLAN: Plan 1. Continue Cardizem CD 30 mg every 6 hours. Consider switching to 180 mg CD tomorrow. 2. Add metoprolol to tartrate 25 mg twice daily. Hold for heart rate less than 55 or systolic less than 100. Will switch back to her metoprolol succinate 50 mg in the evening as tolerated. 3. Continue to monitor the patient for the next 24 to 48 hours. HPI Consult Data Date of Consult: 05/31/25 HPI Narrative Reason for Consultation: Hypotension in atrial fibrillation. HPI Narrative: RUBEN LOBO, is a 80 F who presents with a sudden onset of feeling very sick lightheaded and nauseated with loss of appetite yesterday afternoon. Upon presentation to emergency room she was in atrial flutter with a blood pressure systolic of 60. She was resuscitated with fluids and transient inotropes. Patient also had elevated lactic acid and acute kidney injury pattern on her lab work. The patient is now up in the chair seated in her room. Telemetry shows sinus tachycardia 102 bpm. She did have an episode of paroxysmal atrial fibrillation at approximately 0400 hrs. this morning heart rate was 120s. The patient also complained of shaking chills this morning. She also complains of dysuria but this started after removal of the Sampson catheter. The patient has a known history of ASD repair in 1962. She also gives a history of both typical and atypical flutter as well as atrial fibrillation. She was evaluated by electrophysiology Dr. Johnathan Thakur within the past year. It was felt given her ASD repair and the fact that she was really asymptomatic with her tachyarrhythmias that we would continue with rate control and oral anticoagulation. She was not felt to be a good candidate for flutter RF ablation therapy given her ASD repair and propensity to develop nonflutter tachyarrhythmias. [facility] Medical History Postoperative hematoma Dehydration Dizziness Intractable pain UTI (urinary tract infection) Wears hearing aid Arthritis Restless legs Shortness of breath on exertion On amiodarone therapy Wears dentures Post-menopausal Depression Anxiety Rheumatoid arthritis History of hiatal hernia Gastric reflux Non-smoker CPAP (continuous positive airway pressure) dependence Sleep apnea History of pain when walking History of echocardiogram History of stress test Hypertension Cardiology follow-up encounter History of atrial fibrillation History of cardioversion CLARISSE (obstructive sleep apnea) Mixed hyperlipidemia [employer]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 Pulmonary hypertension Chronic cholecystitis with calculus Paroxysmal atrial fibrillation Essential (primary) hypertension Esophageal hiatal hernia 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, left retirement current use of anticoagulant Atrial flutter GERD (gastroesophageal reflux disease) Home Medications ?Medication ?Instructions ?Recorded ?Last Taken ?Type sertraline 100 mg tablet 100 mg PO QHS sleep 12/14/20 03/11/25 History cholecalciferol (vitamin D3) 50 50 mcg PO DAILY vitami n 07/19/24 03/11/25 History mcg (2,000 unit) capsule pantoprazole 40 mg tablet,delayed 40 mg PO DAILY reflu x #90 tabs 08/19/24 03/11/25 Rx release magnesium oxide 400 mg PO DAILY SUPPLEMENT 0 03/12/25 03/11/25 History apixaban 2.5 mg tablet (Eliquis) 2.5 mg PO BID 5 Unknown History ascorbic acid (vitamin C) 500 mg 500 mg PO QDAY Unknown History tablet diltiazem HCl 180 mg 180 mg PO Q24H 05/29/25 Unkn own History capsule,extended release 24 hr duloxetine 20 mg capsule,delayed 20 mg PO DAILY Unknown History release hydrocodone-acetaminophen 5-325mg 1 tab PO Q6H PRN PRN pain 05/29/25 Unknown History 5mg-325mg indapamide 1.25 mg tablet 0.625 mg PO DAILY 05/29/25 U nknown History metoprolol succinate 50 mg 50 mg PO QPM 05/29/25 Unkno wn History tablet,extended release 24 hr Allergy/AdvReac Type Severity Reaction Status Date / Time No Known Allergies Allergy Verified 03/22/25 14:44 Family History Mother Hypertension Arthritis Heart disease Father Cancer Brother Cancer Son CVA (cerebral vascular accident) Diabetes Brother TIA (transient ischemic attack) Sister Cancer kidney cancer Thyroid disorder Surgical History Status post right knee replacement Hx of cystoscopy History of arthroscopy of right knee History of cardiac catheterization History of open heart surgery History of cholecystectomy History of atrial septal defect repair History of appendectomy Status post laparoscopic Himanshu fundoplication (~11/2018) History of hysterectomy Social History Smoking Status: Never smoker alcohol intake: never substance use type: does not use caffeine: Yes Type: coffee Number of servings: 1 what type of physical activity do you participate in: walking frequency: daily duration: 30-45 minutes/day seatbelt use: always do you feel safe at home: Yes ROS Constitutional Constitutional: Reports as per HPI Eyes Eyes: Reports systems reviewed and no addt'l complaints, except as documented ENT HEENT: Reports systems reviewed and no addt'l complaints, except as documented Cardiovascular Cardiovascular: Reports as per HPI Respiratory/Chest Respiratory/Chest: Reports as per HPI Gastrointestinal Gastrointestinal: Reports as per HPI Genitourinary Genitourinary: Reports as per HPI Musculoskeletal Musculoskeletal: Reports systems reviewed and no addt'l complaints, except as documented Integumentary Integumentary: Reports systems reviewed and no addt'l complaints, except as documented Neurologic Neurologic: Reports systems reviewed and no addt'l complaints, except as documented Psychiatric Psychiatric: Reports systems reviewed and no addt'l complaints, except as documented Endocrine Endocrinology: Reports systems reviewed and no addt'l complaints, except as documented Hematologic/Lymphatic Hematologic/Lymphatic: Reports systems reviewed and no addt'l complaints, except as documented Allergic/Immunologic Allergic/Immunologic: Reports systems reviewed and no addt'l complaints, except as documented Physical Exam Const alert and oriented x3 HEENT normocephalic Eyes EOMs intact bilaterally Neck no JVD and no carotid bruits Chest inspection of chest normal Resp normal respiratory effort Auscultation: diminished lung sounds right lower Cardio Rate: regular rate Rhythm: regular rhythm Heart Sounds: S1 normal and S2 normal; Negative for click, gallop or murmur Extremity no pedal edema Neuro Neuro Narrative: Alert and oriented x 3 Psych mental status grossly normal Risk Stratification Risk Stratification Applicable: Yes Age >/= 65: Yes >/= 3 CAD Risk Factors (HTN, HLD, DM, family hx of CAD, or current smoker): No Aspirin Use in the Past 7 Days: No Severe Angina (>/= episodes in 24 hours): No EKG ST Changes >/= 0.5mm: No Positive Cardiac Marker: No BARBIE Risk Stratification Score: 1 BARBIE % Risk: 5% Risk Charges/Coding Visit Charges Inpatient E&M: 63511 Init Hosp L2 Objective Data Vital Signs: Vital Signs Temp Pulse Resp BP Pulse Ox O2 Del Method O2 Flow Rate 98.9 F 105 H 16 149/94 H 90 Room Air 2 05/31/25 09:14 05/31/25 09:14 05/31/25 09:14 05/31/25 09:14 05/31/25 09:14 05/31/25 09:50 05/30/25 22:00 Oxygen Flow Rate (L/min) 2 Oxygen Delivery Method Room Air Weight: 120 lb 3.2 oz Body Mass Index (BMI) 23.4 Intake & Output: Intake and Output for Last 24 Hours 05/29/25 05/30/25 05/31/25 23:59 23:59 23:59 Intake Total 3659.1 / 3659.1 1316.67 / 1316.67 Output Total 1550 / 1550 Balance 3649.1 / 3649.1 -233.33 / -233.33 Lab / Micro Data Attestation: I reviewed the patient's lab results. 05/31/25 06:47 05/30/25 04:26 Labs: Laboratory Results - last 24 hr 05/31/25 06:47: WBC 5.1, RBC 3.82 L, Hgb 10.7 L, Hct 33.9 L, MCV 88.7, MCH 28.0, MCHC 31.6 L, RDW Std Deviation 48.2 H, RDW Coeff of Reji 14.9 H, Plt Count 96 L, MPV 11.4, Immature Gran % (Auto) 0.800, Neut % (Auto) 67.9, Lymph % (Auto) 20.0, [place] % (Auto) 9.9, Eos % (Auto) 0.8, Baso % (Auto) 0.6, Absolute Neuts (auto) 3.4, Absolute Lymphs (auto) 1.01, Nucleated RBC % 0, Platelet Estimate SLT DEC, Phosphorus 2.9, Total Creatine Kinase 38 Micro: Microbiology 05/29/25 19:56 Urine Catheter - Sampson Urine Culture - Final Culture exhibits no growth. Rhythm Strip Rhythm Strip: Sinus Rhythm Rate: 102 Ectopy: - (Paroxysmal atrial fibs noted) Cardiology Labs/Tests 05/31/25 06:47: WBC 5.1, RBC 3.82 L, Hgb 10.7 L, Hct 33.9 L, MCV 88.7, MCH 28.0, MCHC 31.6 L, Plt Count 96 L, MPV 11.4, Immature Gran % (Auto) 0.800, Neut % (Auto) 67.9, Lymph % (Auto) 20.0, [place] % (Auto) 9.9, Eos % (Auto) 0.8, Baso % (Auto) 0.6, Absolute Neuts (auto) 3.4, Nucleated RBC % 0, Phosphorus 2.9 Rhythm: EKG: ECHO: Stress Test: Cardiac Cath: PCI: CT Surgery: Holter monitor: EPS: PPM: CXR: Chest CT Scan:
--- NOTE | 2025-05-31 12:25 | CASEMGMT ---
TAIWO AGUILERA Assessment Face to Face with patient for initial transition planning/care coordination assessment. TAIWO AGUILERA introduced self and role at [facility], pt voices understanding. Pt is A&Ox4 and is resting comfortably in bed and is calm. Care providers, pharmacy, and demographics verified. Admitting dx: Cardiogenic Shock LACE Strata: 2 PCP: Frederic Specialists: Jorge Luis Devine, Pulmonary Preferred Pharmacy: [facility] Insurance: [employer] [facility] Prescription Benefit: Yes LNOK: Son, Jaxon Living Arrangements: Pt lives alone in a 1 level with no steps to enter. The washer and dryer are in the basement, pt states she is having them moved to the main floor. ADLs/IADLs: Pt reports I at baseline Transportation: Self, Denies current concerns DME: FWW, canes, Grab bars, HHC/SNF: Reports Hx of SNF stay but cannot recall the name of the facility. Previously used [facility]HC but does not recall what agency. Pt?s goal: Pt would like to go to TCU if able, TAIWO AGUILERA informed Pt will have to see what therapy recommends. Pt denies wanting HHC or OP therapy if does not qualify. Report given to MS3 TAIWO AGUILERA. TAIWO Soler CM
[2025-05-31 13:43] VITALS: BP 162/94; PULSE 105; RESP 14; TEMP 36.7; O2SAT 92
[2025-05-31 13:44] VITALS: PULSE 105
--- NOTE | 2025-05-31 15:12 | PCM.PN.HOSP ---
Reason for Visit Chief Complaint: Weakness and Lightheadedness. Objective Data Objective Data Vital Signs: Vital Signs Temp Pulse Resp BP Pulse Ox O2 Del Method O2 Flow Rate 98.0 F 105 H 14 162/94 H 92 Room Air 2 05/31/25 13:43 05/31/25 13:44 05/31/25 13:43 05/31/25 13:43 05/31/25 13:43 05/31/25 13:43 05/31/25 06:50 Oxygen Flow Rate (L/min) 2 Oxygen Delivery Method Room Air Weight: 120 lb 3.2 oz Body Mass Index (BMI) 23.4 Intake & Output: Intake and Output for Last 24 Hours 05/29/25 05/30/25 05/31/25 23:59 23:59 23:59 Intake Total 3659.1 / 3659.1 1316.67 / 1316.67 290 / 290 Output Total 1550 / 1550 Balance 3649.1 / 3649.1 -233.33 / -233.33 290 / 290 Lab / Micro Data 05/31/25 06:47 05/30/25 04:26 Labs: Laboratory Results - last 24 hr 05/31/25 06:47: WBC 5.1, RBC 3.82 L, Hgb 10.7 L, Hct 33.9 L, MCV 88.7, MCH 28.0, MCHC 31.6 L, RDW Std Deviation 48.2 H, RDW Coeff of Reji 14.9 H, Plt Count 96 L, MPV 11.4, Immature Gran % (Auto) 0.800, Neut % (Auto) 67.9, Lymph % (Auto) 20.0, Barry % (Auto) 9.9, Eos % (Auto) 0.8, Baso % (Auto) 0.6, Absolute Neuts (auto) 3.4, Absolute Lymphs (auto) 1.01, Nucleated RBC % 0, Platelet Estimate SLT DEC, Phosphorus 2.9, Total Creatine Kinase 38 Micro: Microbiology 05/29/25 19:56 Urine Catheter - Sampson Urine Culture - Final Culture exhibits no growth. 05/29/25 22:50 Mucosa - Nasopharyngeal Respiratory Panel (PCR) - Final Rhythm Strip Rhythm Strip: Sinus Rhythm Rate: 102 Ectopy: - (Paroxysmal atrial fibs noted) Physical Exam Narrative Overall she is feeling good. She felt like shaking/cold. Temperature was taken at 98.7 Fahrenheit. No burning micturition but had Sampson catheter which was removed. Urine culture shows no growth. rfid strategist reviewed shows sinus tachycardia at about 202 per night. Earlier she was atrial flutter alternating with atrial fibs, converted. Patient complain of weakness and tiredness. No chest pain pressure or tightness. Mild chronic cough. [place] very weak tired almost passed out but did not pass out. Seen and examined General: Alert, Oriented x3, Cooperative. BMI 24.1 kg/m? HEENT: Atraumatic, PERRLA, EOMI, Normocephalic. Oral: No Gingival or Mucosal Lesions/ Ulcerations Neck: Supple, No JVD, Negative Carotid Bruits Chest wall/Lungs: Air entry diminished in bilateral lung bases. No crepitations. Cardiovascular: S1-S2 irregular, S2 loud. Sinus with alternating PVCs no murmur Abdomen: Bowel Sounds Present, Soft, Non Tender, Non-Distended : Sampson catheter. Dark-colored urine. No dysuria. No renal angle tenderness. No suprapubic tenderness. Extremities: No edema, Capillary Refill Less than 3 Seconds Skin: No rashes, No breakdown Musculoskeletal: No Tenderness to Palpation of Joints or Extremities Neurological: Cranial nerves II-XII grossly intact, DTR 2+/4. No acute focal neurological deficit. Psych/Mental Status: Normal Affect, Appropriate. Assessment & Plan Assessment/Plan (1) Cardiogenic shock: (2) Symptomatic bradycardia: (3) Hypotension: QUALIFIERS: Hypotension type: unspecified hypotension type Qualified Code(s): I95.9 - Hypotension, unspecified (4) Hypothermia: QUALIFIERS: Encounter type: initial encounter Qualified Code(s): T68.XXXA - Hypothermia, initial encounter (5) Atypical atrial flutter: (6) Lactic acidosis: (7) AURELIA (acute kidney injury): (8) Adverse drug reaction: QUALIFIERS: Encounter type: initial encounter Qualified Code(s): T50.905A - Adverse effect of unspecified drugs, medicaments and biological substances, initial encounter PLAN: Plan 80-year-old female was brought to ED by her sister for increased weakness lightheadedness, nauseated, feeling like pass out while she was taking dinner yesterday. She has not been feeling well/generalized weakness for some time. Patient has chronic cough, not able to clear up phlegm. In the ED she was found to have atrial flutter with bradycardia, heart rate in 40s, BP 160s. She has a history of type II AV block 1. Shock most likely distributive shock: Patient had severe bradycardia with atrial flutter, 45/min with BP in the 60s. She had 1 mg atropine, dopamine drip was started after discussion with [employer] unified communications engineer. Lactic acidosis 2.8. Repeat lactic acid less than 1.0 creatinine 1.43 from baseline 0.6. Chest x-ray today reviewed and shows interstitial edema with probability of infiltrate. Pulmonary artery also symptoms prominent with concern of PAH. Hypotension has resolved. Currently heart rate sinus and 108/min.BP 168/94. TSH 3.430, Cortisol PM Sample 21.20 H. Serial troponin does not show any significant delta change. ACS ruled out. proBNP elevated at 350. Troponin is 14,15 and 15. Liver chemistry shows elevated AST ALT probably due to shock liver. Cultures pending Discussed with [employer] unified communications engineer Dr. Contreras. Suggested starting antibiotic therefore started on IV ceftriaxone and azithromycin. 05/31: It seems shock was not cardiogenic as per opinion of [address] [address] Contre[address] Rodriguez. The heart rate of 40 cannot result into SBP of 60 mmHg, etiology remains unclear but possible distributive shock. It does not seem septic shock. Cultures so far negative urine culture shows no growth. Blood culture pending since 05/29 probably negative for 48 hours. 2. Atrial flutter/A-fib with bradycardia and hypotension: On apixaban. Diltiazem resumed. Hold metoprolol. Probably due to metoprolol and diltiazem. 05/31: Patient converted to sinus tachycardia 100-206 per night. Discussed with the [employer] unified communications engineer. Patient reintroduced on patient is reintroduced on metoprolol 25 mg twice daily. Yesterday, diltiazem 30 g every 6 hourly by [employer] unified communications engineer. Patient's home regimen age diltiazem 180 mg daily in the morning and metoprolol succinate in the evening. She might have atrial tachycardia from ASD repair scar tissue. She has been evaluated by [facility] Dr. Johnathan Thakur and best treatment for a failed rate control with anticoagulant Eliquis 2.5 mg twice daily 3. Pulmonary artery hypertension: CT chest shows worsening dilatation of pulmonary artery compared to previous CT scan of 2023. 2D echo is ordered 4. AURELIA; with elevated serum creatinine of 1.43 mg/dL (up from 0.69 mg/dL last admission): Patient has pulmonary crepitations and blood pressure is 160s systolic therefore IV fluid started. Urine output 250 mL. Monitor intake and output. Patient has Sampson catheter. Repeat BUN/creatinine improved to 22 and 0.80 on baseline. AURELIA resolved. UA positive LE 100 H, Urine RBC 0-5 SEEN, Urine WBC 0-5 SEEN but patient denies any recent blood intact symptoms including increased frequency urgency or burning micturition. Urine culture pending. 05/30 1 repeat BMP shows creatinine 0.8 and electrolytes in normal limit. AURELIA resolved. Urine culture shows no growth. CPK 38. Serum phosphorus 2.9. 5 history of admission here from March 12, 2025 to March 13, 2025 for treatment of atrial fibrillation; with 2-1 block and EKG in the ER revealing Mobitz type II AV block with echocardiogram on March 13, 2025 that revealed LVEF ~60% with 1+ mitral valve insufficiency and 2+ tricuspid valve insufficiency: Patient saw EP Dr. Dr. More from [facility] electrophysiology past Saturday about 6 days ago 7. Congenital heart disease with ASD; s/p repair, paroxysmal atrial fibrillation: Noted 8. Essential hypertension; blood pressure is elevated. Hold metoprolol 9. Chronic hyperlipidemia; currently not on treatment -lipid profile shows LDL 77, TC 133, TG 61. HDL 44. OA; with history of right TKR plus chronic back pain; s/p laminectomy on oxycodone nightly as needed - Give acetaminophen as needed for [id number] (level 1-5/10) pain or fever. Give oxycodone as needed for severe (level 6-10/10) pain. DVT prophylaxis - Patient is already on apixaban as outlined in #6 which will be continued. Living will/advanced directive/end of life care: Patient does not have living will or advanced directive. She states her next of kin is her . After discussion of benefits/risks procedures involved with full code, DNR CC arrest and DNR CC, the patient opted for full code. At this time, patient is not sure about artificial life support including intubation, tube feed, ventilator and/chest compression, central venous catheter, vasopressor and DC shock if needed. For now until she makes disease and will keep full code Total time spent in [id number] encounter in discussion of advanced directive 17 minutes. Microbiology Past 72 Hours 05/29/25 22:50 Mucosa - Nasopharyngeal Respiratory Panel (PCR) - Final Laboratory Results 05/29/25 18:15: WBC 7.6, RBC 4.34, Hgb 12.2, Hct 38.2, MCV 88.0, MCH 28.1, MCHC 31.9 L, RDW Std Deviation 48.8 H, RDW Coeff of Reji 15.1 H, Plt Count 181, MPV 11.6, Immature Gran % (Auto) 0.400, Neut % (Auto) 61.1, Lymph % (Auto) 27.1, Barry % (Auto) 9.4, Eos % (Auto) 1.2, Baso % (Auto) 0.8, Absolute Neuts (auto) 4.6, Absolute Lymphs (auto) 2.05, Nucleated RBC % 0, PT 16.3 H, INR 1.3, APTT 31.7, Sodium 139, Potassium 4.2, Chloride 103, Carbon Dioxide 22.8, Anion Gap 13, BUN 32 H, Creatinine 1.43 H, Estim Creat Clear Calc 24.46 L, Est GFR (MDRD) Non-Af 37 L, BUN/Creatinine Ratio 22.4 H, Glucose 211 H, Lactic Acid 2.8 H*, Calcium 9.4, Magnesium 2.0, Total Bilirubin 0.46, AST 30, ALT 16, Alkaline Phosphatase 130 H, NT pro BNP II 1850 H, Total Protein 6.9, Albumin 4.1, Globulin 2.8, Albumin/Globulin Ratio 1.4, TSH 3.430, Cortisol PM Sample 21.20 H 05/29/25 18:25: Blood Type O POSITIVE, Antibody Screen NEGATIVE 05/29/25 19:56: Urine Color Yellow, Urine Clarity Sl. Cloudy, Urine pH 5.0, Ur Specific [place] 1.020, Urine Protein 100 H, Urine Glucose (UA) Normal, Urine Ketones 5 H, Urine Occult Blood 10 H, Urine Nitrite Negative, Urine Bilirubin 1 H, Urine Urobilinogen 1 H, Ur Leukocyte Esterase 100 H, Urine RBC 0-5 SEEN, Urine WBC 0-5 SEEN, Ur Squamous Epith Cells 0-5 SEEN, Ur Transition Epith Cell 0-5 SEEN, Calcium Oxalate Crystal 1+, Urine Bacteria 2+, Hyaline Casts 50-100 SEEN, Urine Mucus 1+ 05/29/25 23:39: Lactic Acid < 1.0 05/30/25 00:26: Troponin T High Sens 14 D 05/30/25 02:20: Troponin T Hi Sens 2 Hr 15 H 05/30/25 04:26: WBC 6.5, RBC 3.89 L, Hgb 10.9 L, Hct 34.3 L, MCV 88.2, MCH 28.0, MCHC 31.8 L, RDW Std Deviation 47.9 H, RDW Coeff of Reji 15.0 H, Plt Count 112 L, MPV 10.8, Immature Gran % (Auto) 0.300, Neut % (Auto) 70.5 H, Lymph % (Auto) 19.4, Barry % (Auto) 9.1, Eos % (Auto) 0.2, Baso % (Auto) 0.5, Absolute Neuts (auto) 4.6, Absolute Lymphs (auto) 1.26, Nucleated RBC % 0, Sodium 140, Potassium 4.2, Chloride 108, Carbon Dioxide 22.3, Anion Gap 10, BUN 22 H, Creatinine 0.80, Estim Creat Clear Calc 44.01 L, Est GFR (MDRD) Non-Af 75, BUN/Creatinine Ratio 27.4 H, Glucose 134 H, Calcium 8.4, Phosphorus 4.1, Total Bilirubin 0.51, AST 77 H, ALT 61 H, Alkaline Phosphatase 123 H, Troponin T Hi Sens 4Hr 15 H, Total Protein 6.2, Albumin 3.6, Globulin 2.6, Albumin/Globulin Ratio 1.4, Triglycerides 61, Cholesterol 133, LDL Cholesterol, Calc 77, VLDL Cholesterol 12, HDL Cholesterol 44, Cholesterol/HDL Ratio 3.00 Microbiology Past 72 Hours 05/29/25 19:56 Urine Catheter - Sampson Urine Culture - Final Culture exhibits no growth. 05/29/25 22:50 Mucosa - Nasopharyngeal Respiratory Panel (PCR) - Final Laboratory Results 05/31/25 06:47: WBC 5.1, RBC 3.82 L, Hgb 10.7 L, Hct 33.9 L, MCV 88.7, MCH 28.0, MCHC 31.6 L, RDW Std Deviation 48.2 H, RDW Coeff of Reji 14.9 H, Plt Count 96 L, MPV 11.4, Immature Gran % (Auto) 0.800, Neut % (Auto) 67.9, Lymph % (Auto) 20.0, Barry % (Auto) 9.9, Eos % (Auto) 0.8, Baso % (Auto) 0.6, Absolute Neuts (auto) 3.4, Absolute Lymphs (auto) 1.01, Nucleated RBC % 0, Platelet Estimate SLT DEC, Phosphorus 2.9, Total Creatine Kinase 38 Charges/Coding Visit Charges Inpatient E&M: 84619 Subs Hosp L2
[2025-05-31 21:59] VITALS: BP 144/96; PULSE 103; RESP 18; TEMP 36.8; O2SAT 98
[2025-05-31 22:07] VITALS: BP 144/96; PULSE 103
[2025-06-01] VITALS (7 sets, daily range): BP systolic 128–148; BP diastolic 83–105; PULSE 85–96; RESP 16–18; TEMP 36.1–36.8; O2SAT 95–96; BMI 23.9
--- NOTE | 2025-06-01 00:46 | NURSING ---
pt bp 142/97, HR 102, administered Cardizem
[2025-06-01 06:54] LABS: Hematocrit 36.7 % (37-47); Hemoglobin 11.5 g/dL (12.0-15.0); Immature Granulocytes Count 0.020 X10^3/uL (0.0-0.0); Mean Corp Hgb Conc 31.3 g/dL (32-36); Mean Corpuscular Volume 88.6 fL (81-99); Mean Platelet Vol. 10.3 fl (6.2-12.0); NRBC Flagged by Analyzer 0 % (0-5); Platelet Count 115 K/mm3 (150-450); RBC Distribution Width CV 15.0 % (11.6-14.6); RBC Distribution Width SD 47.7 fl (35.1-43.9); Red Blood Count 4.14 M/mm3 (4.2-5.4); White Blood Count 6.3 K/mm3 (4.4-11.0)
[2025-06-01 08:07] LABS: CPK Total, Creatine Kinase 39 U/L (24-195)
--- NOTE | 2025-06-01 08:59 | PCM.PN.CARD ---
Subjective Subjective Patient examined in the bed this morning. She is much more alert and awake oriented x 3. Her blood pressures come up significantly over the last 24 hours. Heart rate has been adequately controlled atrial fibrillation 90 to 100 bpm. Patient's had no recurrence of her chills and is tolerating the diltiazem and metoprolol in divided doses. Objective Data Vital Signs: Vital Signs Temp Pulse Resp BP Pulse Ox O2 Del Method O2 Flow Rate 97 F L 94 18 138/93 H 95 Room Air 2 06/01/25 04:39 06/01/25 06:31 06/01/25 04:39 06/01/25 06:31 06/01/25 04:39 06/01/25 05:00 05/31/25 06:50 Oxygen Flow Rate (L/min) 2 Oxygen Delivery Method Room Air Weight: 122 lb 9.232 oz Body Mass Index (BMI) 23.9 Intake & Output: Intake and Output for Last 24 Hours 05/30/25 05/31/25 06/01/25 23:59 23:59 23:59 Intake Total 1316.67 / 1316.67 530 / 530 Output Total 1550 / 1550 Balance -233.33 / -233.33 530 / 530 Lab / Micro Data Attestation: I reviewed the patient's lab results. 06/01/25 06:44 05/30/25 04:26 Labs: Laboratory Results - last 24 hr 06/01/25 06:44: WBC 6.3, RBC 4.14 L, Hgb 11.5 L, Hct 36.7 L, MCV 88.6, MCH 27.8, MCHC 31.3 L, RDW Std Deviation 47.7 H, RDW Coeff of Reji 15.0 H, Plt Count 115 L, MPV 10.3, Immature Gran % (Auto) 0.300, Neut % (Auto) 67.6, Lymph % (Auto) 19.8, [place] % (Auto) 10.2 H, Eos % (Auto) 1.8, Baso % (Auto) 0.3, Absolute Neuts (auto) 4.2, Absolute Lymphs (auto) 1.24, Nucleated RBC % 0, Total Creatine Kinase 39 Micro: Microbiology 05/29/25 19:56 Urine Catheter - Sampson Urine Culture - Final Culture exhibits no growth. Rhythm Strip Rhythm Strip: A-fib Rate: 95 Ectopy: - (Paroxysmal atrial fibs noted) Cardiology Labs/Tests 06/01/25 06:44: WBC 6.3, RBC 4.14 L, Hgb 11.5 L, Hct 36.7 L, MCV 88.6, MCH 27.8, MCHC 31.3 L, Plt Count 115 L, MPV 10.3, Immature Gran % (Auto) 0.300, Neut % (Auto) 67.6, Lymph % (Auto) 19.8, [place] % (Auto) 10.2 H, Eos % (Auto) 1.8, Baso % (Auto) 0.3, Absolute Neuts (auto) 4.2, Nucleated RBC % 0 Rhythm: EKG: ECHO: Stress Test: Cardiac Cath: PCI: CT Surgery: Holter monitor: EPS: PPM: CXR: Chest CT Scan: Physical Exam Const alert and oriented x3 HEENT normocephalic Eyes EOMs intact bilaterally Neck no JVD Chest inspection of chest normal Resp normal respiratory effort and clear to auscultation bilaterally Cardio Rate: regular rate Rhythm: abnormal rhythm irregularly irregular Heart Sounds: S1 normal and S2 normal; Negative for click, gallop or murmur Neuro Neuro Narrative: Alert and oriented x 3 Psych mental status grossly normal Assessment & Plan Assessment/Plan (1) Paroxysmal atrial fibrillation: PLAN: Patient goes in and out of atrial fibrillation. This morning she is back in atrial fibs with a relatively controlled response at 95 bpm. Blood pressure is stable and actually slightly elevated. The patient has been previously evaluated by electrophysiology and felt given her complex atrial anatomy status post ASD repair that rate controlled with long-term oral anticoagulation was the best treatment option. Historically the patient has been well-controlled on diltiazem 180 mg in the morning and metoprolol 50 mg in the evening. We will reinstitute this dosing regiment today. (2) Essential (primary) hypertension: PLAN: Patient's blood pressure is slightly elevated and today. Will increase her rate modulating drugs which should also help better control the blood pressure. She is back on her home dose as of this evening. (3) Hypotension: QUALIFIERS: Hypotension type: unspecified hypotension type Qualified Code(s): I95.9 - Hypotension, unspecified PLAN: Etiology of the hypotension is still uncertain. The patient does not appear to have an infection it is highly unlikely that her heart rate alone caused her blood pressure to go as low as it did. She has had some medication changes in her home environment that may have potentiated some of the effects of her cardiovascular meds. Recommend continue to monitor the patient and increase her activities as tolerated. She should be able to be discharged in the next 24 hours. PLAN: Plan 1. Reinstitute home medical regiment from a cardiovascular standpoint today. 2. The patient is up and ad elo. without incident should be able to be discharged in the next 24 hours. 3. Patient should follow-up in the [facility] office in the next 3 to 4 weeks with advanced practitioner. Charges/Coding Visit Charges Inpatient E&M: 02471 Subs Hosp L2
[2025-06-01] MEDS: Magnesium Chloride 64 MG Delay Rel.Tablet 128 MG PO (10:13)
[2025-06-01] MEDS: APIXABAN 2.5 MG TABLET (WCH) PO ×2 (10:14→21:24)
[2025-06-01] MEDS: Cholecalciferol (VIT D3) 25 MCG TABLET (1,000 UNITS) 50 MCG PO (10:14)
--- NOTE | 2025-06-01 11:18 | CASEMGMT ---
TAIWO AGUILERA reviewed progress with therapy, patient ambulated 40ft stand by assist. TAIWO CM in to discuss progress with therapy and plans for at discharge. TAIWO AGUILERA updated patient that she did well with therapy and therapy was recommending patient can return home. Patient voiced understanding and is agreeable to discharge to home. Patient declines need for C or outpatient therapy. TAIWO AGUILERA updated patient that should she reconsider outpatient therapy at discharge to follow-up with PCP. Patient voiced understanding and appreciations. Patient denied further needs or concerns. Patient had no further questions. CM will remain available should discharge needs arise.
[2025-06-01] MEDS: 0.9% Saline Lock 10 ML Syringe IV (17:29)
[2025-06-01] MEDS: Metoprolol(XL)Succ 50 MG Tablet PO (17:29)
--- NOTE | 2025-06-01 18:08 | PN.HOSP_ITS ---
Subjective Subjective Doing well, feels better today. No leukocytosis, afebrile and heart rates better. No dizziness or lightheadedness Objective Data Objective Data Vital Signs: Vital Signs Temp Pulse Resp BP Pulse Ox O2 Del Method O2 Flow Rate 97.9 F 85 17 148/83 H 96 Room Air 2 06/01/25 14:47 06/01/25 17:29 06/01/25 14:47 06/01/25 17:27 06/01/25 14:47 06/01/25 14:48 05/31/25 06:50 Oxygen Flow Rate (L/min) 2 Oxygen Delivery Method Room Air Weight: 122 lb 9.232 oz Body Mass Index (BMI) 23.9 Intake & Output: Intake and Output for Last 24 Hours 05/31/25 06/01/25 06/02/25 03:59 03:59 03:59 Intake Total 1316.67 / 1316.67 530 / 530 Output Total 1550 / 1550 Balance -233.33 / -233.33 530 / 530 Lab / Micro Data 06/01/25 06:44 05/30/25 04:26 Labs: Laboratory Results - last 24 hr 06/01/25 06:44: WBC 6.3, RBC 4.14 L, Hgb 11.5 L, Hct 36.7 L, MCV 88.6, MCH 27.8, MCHC 31.3 L, RDW Std Deviation 47.7 H, RDW Coeff of Reji 15.0 H, Plt Count 115 L, MPV 10.3, Immature Gran % (Auto) 0.300, Neut % (Auto) 67.6, Lymph % (Auto) 19.8, Simpson % (Auto) 10.2 H, Eos % (Auto) 1.8, Baso % (Auto) 0.3, Absolute Neuts (auto) 4.2, Absolute Lymphs (auto) 1.24, Nucleated RBC % 0, Total Creatine Kinase 39 Micro: Microbiology 05/29/25 18:28 Blood Culture (Wb) - Left Forearm Blood Culture - Preliminary No growth in 48 hours. 05/29/25 18:29 Blood Culture (Wb) - Left Forearm Blood Culture - Preliminary No growth in 48 hours. 05/29/25 19:56 Urine Catheter - Sampson Urine Culture - Final Culture exhibits no growth. 05/29/25 22:50 Mucosa - Nasopharyngeal Respiratory Panel (PCR) - Final Rhythm Strip Rhythm Strip: A-fib Rate: 95 Ectopy: - (Paroxysmal atrial fibs noted) Physical Exam Narrative General: Alert, Oriented x3, Cooperative, No apparent distress HEENT: Atraumatic, PERRLA, EOMI, Normocephalic Oral: Moist Mucosa Neck: Supple, No JVD Lungs: Diminished, Normal air movement, No rhonchi, No wheeze, No rales Cardiovascular: Regular rate, Regular Rhythm, Normal S1, Normal S2, No murmurs Abdomen: Soft, Non Tender, Non-Distended, No Hepato-splenomegaly Extremities: No edema, Capillary Refill Less than 3 Seconds Skin: No rashes, No breakdown Musculoskeletal: No Tenderness to Palpation of Joints or Extremities Neurological: No focal neurological deficits, Motor Exam 5/5 strength throughout, Sensory exam intact to light touch and pain Psych/Mental Status: Normal Affect, Appropriate Assessment & Plan Assessment/Plan (1) Cardiogenic shock: (2) Symptomatic bradycardia: (3) Atypical atrial flutter: (4) AURELIA (acute kidney injury): PLAN: Plan 1. Shock most likely distributive shock: Patient had severe bradycardia with atrial flutter, 45/min with BP in the 60s. She had 1 mg atropine, dopamine drip was started after discussion with juvenile probation officer. Lactic acidosis 2.8. Repeat lactic acid less than 1.0 creatinine 1.43 from baseline 0.6. Chest x-ray today reviewed and shows interstitial edema with probability of infiltrate. Pulmonary artery also symptoms prominent with concern of PAH. Hypotension has resolved. Currently heart rate sinus and 108/min.BP 168/94. TSH 3.430, Cortisol PM Sample 21.20 H. Serial troponin does not show any significant delta change. ACS ruled out. proBNP elevated at 350. Troponin is 14,15 and 15. Liver chemistry shows elevated AST ALT probably due to shock liver. Cultures pending Discussed with juvenile probation officer Dr. Contreras. Suggested starting antibiotic therefore started on IV ceftriaxone and azithromycin. 05/31: It seems shock was not cardiogenic as per opinion of [address] Contre[address]. Rodriguez. The heart rate of 40 cannot result into SBP of 60 mmHg, etiology remains unclear but possible distributive shock. It does not seem septic shock. Cultures so far negative urine culture shows no growth. Blood culture pending since 05/29 probably negative for 48 hours. 06/01/2025: Shock is resolved and she has been restarted on her Cardizem 180 mg, will continue with metoprolol 50 mg tonight and see how she tolerates. There is a possibility that the family states that she has been inconsistent with her medications so unclear if this shock is due to atrial flutter all bradycardic currently heart rate stable. So far infectious workup was unremarkable and antibiotics have been discontinued 2. Atrial flutter/A-fib with bradycardia and hypotension: On apixaban. Diltiazem resumed. Hold metoprolol. Probably due to metoprolol and diltiazem. 05/31: Patient converted to sinus tachycardia 100-206 per night. Discussed with the juvenile probation officer. Patient reintroduced on patient is reintroduced on metoprolol 25 mg twice daily. Yesterday, diltiazem 30 g every 6 hourly by juvenile probation officer. Patient's home regimen age diltiazem 180 mg daily in the morning and metoprolol succinate in the evening. She might have atrial tachycardia from ASD repair scar tissue. She has been evaluated by [facility] Dr. Johnathan Thakur and best treatment for a failed rate control with anticoagulant Eliquis 2.5 mg twice daily 06/01/2025: Will continue with both her rate control medications and see if we can catch anything on telemetry 3. Pulmonary artery hypertension: CT chest shows worsening dilatation of pulmonary artery compared to previous CT scan of 2023. 4. AURELIA; with elevated serum creatinine of 1.43 mg/dL (up from 0.69 mg/dL last admission): Patient has pulmonary crepitations and blood pressure is 160s systolic therefore IV fluid started. Urine output 250 mL. Monitor intake and output. Patient has Sampson catheter. Repeat BUN/creatinine improved to 22 and 0.80 on baseline. AURELIA resolved. UA positive LE 100 H, Urine RBC 0-5 SEEN, Urine WBC 0-5 SEEN but patient denies any recent blood intact symptoms including increased frequency urgency or burning micturition. Urine culture pending. 05/30 1 repeat BMP shows creatinine 0.8 and electrolytes in normal limit. AURELIA resolved. Urine culture shows no growth. CPK 38. Serum phosphorus 2.9. 5 history of admission here from March 12, 2025 to March 13, 2025 for treatment of atrial fibrillation; with 2-1 block and EKG in the ER revealing Mobitz type II AV block with echocardiogram on March 13, 2025 that revealed LVEF ~60% with 1+ mitral valve insufficiency and 2+ tricuspid valve insufficiency: Patient saw EP Dr. Dr. More from [facility] electrophysiology past Saturday about 6 days ago 7. Congenital heart disease with ASD; s/p repair, paroxysmal atrial fibrillation: Noted 8. Essential hypertension; blood pressure is elevated. Hold metoprolol 06/01/2025: Blood pressures are controlled with the reinstitution of her medications. Will monitor overnight on telemetry 9. Chronic hyperlipidemia; currently not on treatment -lipid profile shows LDL 77, TC 133, TG 61. HDL 44. DVT: Eliquis Charges/Coding Visit Charges Inpatient E&M: 43603 Subs Hosp L2
[2025-06-02 02:00] VITALS: BP 146/90; PULSE 85; RESP 16; TEMP 36.6; O2SAT 94
[2025-06-02 05:32] VITALS: BMI 23.5
[2025-06-02 07:36] LABS: Anion Gap 10 (5-15); BUN 11 mg/dL (4-19); BUN/Creat Ratio 15.9 RATIO (10-20); Calcium,Total 8.9 mg/dL (7.6-11.0); Carbon Dioxide 27.0 mmol/L (21.0-32.0); Chloride 105 mmol/L (98-108); Estimated Creatinine Clearance 43.54 ml/min (50-250); Glucose 103 mg/dL (70-99); Potassium 3.6 mmol/L (3.3-5.1)
--- NOTE | 2025-06-02 08:59 | PN.CARD_ITS ---
Subjective Subjective Patient examined seated in the chair today. She reports that she is feeling much better. Denies any lightheaded dizzy spells denies any significant change in her overall clinical status over the last 24 hours. Objective Data Vital Signs: Vital Signs Temp Pulse Resp BP Pulse Ox O2 Del Method O2 Flow Rate 97.8 F 85 16 146/90 H 94 Room Air 2 06/02/25 02:00 06/02/25 02:00 06/02/25 02:00 06/02/25 02:00 06/02/25 02:00 06/02/25 08:17 05/31/25 06:50 Oxygen Flow Rate (L/min) 2 Oxygen Delivery Method Room Air Weight: 120 lb 9.486 oz Body Mass Index (BMI) 23.5 Intake & Output: Intake and Output for Last 24 Hours 05/31/25 06/01/25 06/02/25 23:59 23:59 23:59 Intake Total 530 / 530 Balance 530 / 530 Lab / Micro Data Attestation: I reviewed the patient's lab results. 06/01/25 06:44 06/02/25 06:14 Labs: Laboratory Results - last 24 hr 06/02/25 06:14: Sodium 141, Potassium 3.6, Chloride 105, Carbon Dioxide 27.0, Anion Gap 10, BUN 11, Creatinine 0.67 L, Estim Creat Clear Calc 43.54 L, Est GFR (MDRD) Non-Af 88, BUN/Creatinine Ratio 15.9, Glucose 103 H, Calcium 8.9 Micro: Microbiology 05/29/25 18:28 Blood Culture (Wb) - Left Forearm Blood Culture - Preliminary No growth in 48 hours. 05/29/25 18:29 Blood Culture (Wb) - Left Forearm Blood Culture - Preliminary No growth in 48 hours. Rhythm Strip Rhythm Strip: Sinus Rhythm Rate: 86 Ectopy: - (Paroxysmal atrial fibs noted) Cardiology Labs/Tests 06/02/25 06:14: Sodium 141, Potassium 3.6, Chloride 105, Carbon Dioxide 27.0, Anion Gap 10, BUN 11, Creatinine 0.67 L, Est GFR (MDRD) Non-Af 88, BUN/Creatinine Ratio 15.9, Glucose 103 H, Calcium 8.9 Rhythm: EKG: ECHO: Stress Test: Cardiac Cath: PCI: CT Surgery: Holter monitor: EPS: PPM: CXR: Chest CT Scan: Physical Exam Narrative Patient resting comfortably in seated position in her chair. Const alert and oriented x3 HEENT normocephalic Eyes EOMs intact bilaterally Chest inspection of chest normal Cardio regular rate and regular rhythm Cardio Narrative: Currently telemetry shows normal sinus rhythm. She does have episodes of paroxysmal atrial fibrillation which is chronic. Neuro Neuro Narrative: Alert and oriented x 3 Psych mental status grossly normal Assessment & Plan Assessment/Plan (1) Shock: PLAN: Patient's blood pressures are recovered. She is actually borderline hypertensive. The patient is tolerating reinstitution of her rate modulating therapy with diltiazem and metoprolol. (2) Paroxysmal atrial fibrillation: PLAN: Patient has a history of paroxysmal atrial fibrillation has been in and out of atrial fib with a controlled ventricular response during this hospitalization. The patient is on appropriate dose of Eliquis 2.5 mg twice daily given her age and her weight. Patient should continue her diltiazem and metoprolol at her home doses. From a cardiovascular standpoint the patient could be discharged to home. PLAN: Plan 1. Continue current home medications for cardiovascular issues. 2. Eliquis should be 2.5 mg twice daily. 3. From a cardiovascular standpoint the patient could be discharged to home. 4. The patient has a follow-up appointment a week from Saturday in the [place] [facility] office she should keep that appointment. Charges/Coding Visit Charges Inpatient E&M: 21057 Subs Hosp L2
[2025-06-02 09:01] VITALS: BP 144/95; PULSE 103; RESP 18; TEMP 37.1; O2SAT 97
[2025-06-02] MEDS: Magnesium Chloride 64 MG Delay Rel.Tablet 128 MG PO (09:05)
[2025-06-02] MEDS: APIXABAN 2.5 MG TABLET (WCH) PO (09:05)
[2025-06-02] MEDS: Cholecalciferol (VIT D3) 25 MCG TABLET (1,000 UNITS) 50 MCG PO (09:05)
--- NOTE | 2025-06-02 10:44 | DCINST_ITS ---
Discharge Instructions DC O2, CPAP, BIPAP needs Home O2 Discharge instructions: No Dressing / Incision Discharge Activity: Return to Normal Activity Dressing / Incision Call your doctor if you observe: Fever of 101 or Higher, Shortness of breath, Dizziness, Fainting spells, Swelling in the ankles, Chest pain and Increased palpitations (irregular heartbeat) Follow Up Care Test Results: Test results from this visit will be discussed in further detail at your follow- up appointment, if applicable. Discharge Plan Admission Admit Date/Time: 05/29/25 21:54 Attending Provider: Arik Santillan Primary Care Provider: Jame De La Garza Consulting Providers: Kellie Qureshi; Cassidy Tavares; Steven Carr; Yasmin Contreras; Myron Bryan; Steve Ho; Cory Montse; Quincy Martin; Cy Rodriguez; Osmin Williamson; Andrew Humphries; Mundo Leiva; Sampson Cuevas NP; Adrianna Box; Pascual Brumfield; Anthony Arnold; Stefano Steward Instructions Additional Instructions / Restrictions: I held your indapamide which is a diuretic type medication which can cause dehydration and lightheadedness. I would like you to follow-up with your primary care doctor in 3 to 5 days to monitor your blood pressure to see if this medication needs to be continued or if it can be discontinued without any major side effect to your blood pressure. Discharge Orders/Prescriptions Prescriptions: Continued sertraline 100 mg tablet 100 mg PO QHS cholecalciferol (vitamin D3) 50 mcg (2,000 unit) capsule 50 mcg PO DAILY diltiazem HCl 180 mg capsule,extended release 24hr 180 mg PO Q24H Patient Comments: [NO ORIGINAL SIG] Eliquis 2.5 mg tablet 2.5 mg PO BID metoprolol succinate 50 mg tablet extended release 24 hr 50 mg PO QPM duloxetine 20 mg capsule,delayed release(DR/EC) 20 mg PO DAILY ascorbic acid (vitamin C) 500 mg tablet 500 mg PO QDAY hydrocodone-acetaminophen 5-325 mg tablet 1 tab PO Q6H PRN PRN (Reason: pain) magnesium oxide 400 mg magnesium tablet 400 mg PO DAILY pantoprazole 40 mg tablet,delayed release (DR/EC) 40 mg PO DAILY Qty: 90 3RF Held indapamide 1.25 mg tablet 0.625 mg PO DAILY Hold Instructions: Resume on 06/10/25. Referrals / Follow Up: Jame De La Garza MD [Primary Care Provider] - Within 1 Week Disposition Disposition (needs filled in before D/C Order can be placed): Home, Self Care
[2025-06-02 10:50] VITALS: BP 151/94; PULSE 95; RESP 14; TEMP 36.7; O2SAT 97
--- NOTE | 2025-06-02 10:51 | PHA.DC.MR.R ---
Pharmacy [place] Med Reconciliation Pharmacy Service has performed discharge medication reconciliation for this patient. The patient's discharge medication list was reviewed for discrepancies and discrepancies were resolved. Medications at Discharge Home Medications sertraline 100 mg tablet 100 mg PO QHS sleep 12/14/20 cholecalciferol (vitamin D3) 50 mcg (2,000 unit) capsule 50 mcg PO DAILY vitamin 07/19/24 pantoprazole 40 mg tablet,delayed release 40 mg PO DAILY reflux #90 tabs 08/19/24 magnesium oxide 400 mg PO DAILY SUPPLEMENT 03/12/25 apixaban 2.5 mg tablet (Eliquis) 2.5 mg PO BID 05/29/25 ascorbic acid (vitamin C) 500 mg tablet 500 mg PO QDAY 05/29/25 diltiazem HCl 180 mg capsule,extended release 24 hr 180 mg PO Q24H 05/29/25 duloxetine 20 mg capsule,delayed release 20 mg PO DAILY 05/29/25 hydrocodone-acetaminophen 5-325mg 5mg-325mg 1 tab PO Q6H PRN PRN pain 05/29/25 indapamide 1.25 mg tablet 0.625 mg PO DAILY 05/29/25 Held on 06/02/25. Instructions: Resume on 06/10/25. metoprolol succinate 50 mg tablet,extended release 24 hr 50 mg PO QPM 05/29/25
--- NOTE | 2025-06-02 13:39 | DS.PCM_ITS ---
Providers Date of Admission: 05/29/25 Primary Care Physician: Dr. Jame De La Garza MD Consultations 05/29/25 23:56 Consult: Cardiology Routine Consulting Provider: Valentina Portillo Reason for Consult: Cardiogenic Shock; with Bradycardia, Hypotension and Hypothermia. EMERGENT Consult: No MD Notified: Yes Date Notified: 05/29/25 Time Notified: 21:54 Method of Notification: ED Physician Initiated Method of Consult:: In-Person Reason For Visit: CARDIOGENIC SHOCK Diagnosis Discharge Diagnosis (1) Shock: Status: Acute Code(s): R57.9 - Shock, unspecified (2) Paroxysmal atrial fibrillation: Status: Chronic Code(s): I48.0 - Paroxysmal atrial fibrillation Medications at Discharge Home Medications sertraline 100 mg tablet 100 mg PO QHS sleep 12/14/20 cholecalciferol (vitamin D3) 50 mcg (2,000 unit) capsule 50 mcg PO DAILY vitamin 07/19/24 pantoprazole 40 mg tablet,delayed release 40 mg PO DAILY reflux #90 tabs 08/19/24 magnesium oxide 400 mg PO DAILY SUPPLEMENT 03/12/25 apixaban 2.5 mg tablet (Eliquis) 2.5 mg PO BID 05/29/25 ascorbic acid (vitamin C) 500 mg tablet 500 mg PO QDAY 05/29/25 diltiazem HCl 180 mg capsule,extended release 24 hr 180 mg PO Q24H 05/29/25 duloxetine 20 mg capsule,delayed release 20 mg PO DAILY 05/29/25 hydrocodone-acetaminophen 5-325mg 5mg-325mg 1 tab PO Q6H PRN PRN pain 05/29/25 indapamide 1.25 mg tablet 0.625 mg PO DAILY 05/29/25 Held on 06/02/25. Instructions: Resume on 06/10/25. metoprolol succinate 50 mg tablet,extended release 24 hr 50 mg PO QPM 05/29/25 Hospital Course Operations None Procedures None Summary of Care Provided Minutes Spent on Discharge: 36 Hospital Course: Per HPI: RUBEN LOBO, is a 80 F with a past medical history of essential hypertension; on metoprolol twice daily, history of hyperlipidemia; currently not on treatment, congenital heart disease with ASD; s/p repair, paroxysmal atrial fibrillation; on diltiazem TID daily plus apixaban BID followed by [facility], history of DCCV (2016), history of mitral valve insufficiency, CLARISSE, history of pulmonary hypertension, history of syncope, RLS, depression with anxiety; on sertraline, history of chronic cholecystitis with calculus, GERD with history of hiatal hernia; s/p Himanshu fundoplication (2019) on pantoprazole, OA; with history of right TKR plus chronic back pain; s/p laminectomy on oxycodone nightly as needed and history of admission here from March 12, 2025 to March 13, 2025 for treatment of atrial fibrillation; with 2-1 block and EKG in the ER revealing Mobitz type II AV block with echocardiogram on March 13, 2025 that revealed LVEF ~60% with 1+ mitral valve insufficiency and 2+ tricuspid valve insufficiency which was not significantly changed from previous echocardiogram who presents to [facility] ER complaining of weakness and lightheadedness. Ms. Lobo reports her symptoms began just prior to arrival when she was eating dinner with her sister and suddenly began to feel weak and lightheaded. Her sister brought her in via private vehicle and was noted to have a systolic blood pressure in the ~60 mmHg range with a EKG that revealed atrial flutter; with variable AV block and a rate of [address] changes and she was subsequently diagnosed with cardiogenic shock that was treated with aggressive volume resuscitation and 1 mg of atropine x 2 followed by dopamine drip IV with spontaneous conversion back to normal sinus rhythm and blood pressure increasing to 108/71 mmHg. She was also noted to have transient hypothermia requiring Maikol hugger and laboratory evidence of AURELIA; with elevated serum creatinine of 1.43 mg/dL (up from 0.69 mg/dL last admission) and Lactic Acidosis of 2.8 mmol/L present on admission during concern for sepsis but with no signs of infection including negative urinalysis and patient stating she was feeling completely fine up until this event. She denies associated fever, chills, nausea, vomiting, diarrhea, constipation, blood in stools, abdominal pain, chest pain, palpitations, heart racing, lower extremity edema, dysuria, hematuria, headache, rash or wounds. The ER physician spoke directly with the culinary artist on-call who recommended holding her AV magdalene blocking agents including diltiazem and metoprolol with formal consultation pending in the a.m. and appreciated advance. She was then admitted to the PCU for ongoing care for a stay that is expected to extend beyond 2 midnights. Hospital Course: 1. Shock most likely distributive shock: Patient had severe bradycardia with atrial flutter, 45/min with BP in the 60s. She had 1 mg atropine, dopamine drip was started after discussion with culinary artist. Lactic acidosis 2.8. Repeat lactic acid less than 1.0 creatinine 1.43 from baseline 0.6. Chest x-ray today reviewed and shows interstitial edema with probability of infiltrate. Pulmonary artery also symptoms prominent with concern of PAH. Hypotension has resolved. Currently heart rate sinus and 108/min.BP 168/94. TSH 3.430, Cortisol PM Sample 21.20 H. Serial troponin does not show any significant delta change. ACS ruled out. proBNP elevated at 350. Troponin is 14,15 and 15. Liver chemistry shows elevated AST ALT probably due to shock liver. Cultures pending Discussed with culinary artist Dr. Contreras. Suggested starting antibiotic therefore started on IV ceftriaxone and azithromycin. 05/31: It seems shock was not cardiogenic as per opinion of [address] Rodriguez. The heart rate of 40 cannot result into SBP of 60 mmHg, etiology remains unclear but possible distributive shock. It does not seem septic shock. Cultures so far negative urine culture shows no growth. Blood culture pending since 05/29 probably negative for 48 hours. 06/01/2025: Shock is resolved and she has been restarted on her Cardizem 180 mg, will continue with metoprolol 50 mg tonight and see how she tolerates. There is a possibility that the family states that she has been inconsistent with her medications so unclear if this shock is due to atrial flutter all bradycardic currently heart rate stable. So far infectious workup was unremarkable and antibiotics have been discontinued 06/02/2025: She is doing much better today heart rate and blood pressure are controlled on the Cardizem and the metoprolol without any syncope or near syncope. I discussed with her the possibility for discharge today she expressed understanding of the risks and benefits of going home and would like to go home today. Cardiology also felt that she would be stable for discharge. I did hold her indapamide on discharge to be evaluated by her PCP as an outpatient to make sure that her blood pressures do not need to be added back on as this is also likely causing some of her dehydration and syncope episodes. 2. Atrial flutter/A-fib with bradycardia and hypotension: On apixaban. Diltiazem resumed. Hold metoprolol. Probably due to metoprolol and diltiazem. 05/31: Patient converted to sinus tachycardia 100-206 per night. Discussed with the culinary artist. Patient reintroduced on patient is reintroduced on metoprolol 25 mg twice daily. Yesterday, diltiazem 30 g every 6 hourly by culinary artist. Patient's home regimen age diltiazem 180 mg daily in the morning and metoprolol succinate in the evening. She might have atrial tachycardia from ASD repair scar tissue. She has been evaluated by EP [facility] Dr. Johnathan Thakur and best treatment for a failed rate control with anticoagulant Eliquis 2.5 mg twice daily 06/01/2025: Will continue with both her rate control medications and see if we can catch anything on telemetry 3. Pulmonary artery hypertension: CT chest shows worsening dilatation of pulmonary artery compared to previous CT scan of 2023. 4. AURELIA; with elevated serum creatinine of 1.43 mg/dL (up from 0.69 mg/dL last admission): Patient has pulmonary crepitations and blood pressure is 160s systolic therefore IV fluid started. Urine output 250 mL. Monitor intake and output. Patient has Sampson catheter. Repeat BUN/creatinine improved to 22 and 0.80 on baseline. AURELIA resolved. UA positive LE 100 H, Urine RBC 0-5 SEEN, Urine WBC 0-5 SEEN but patient denies any recent blood intact symptoms including increased frequency urgency or burning micturition. Urine culture pending. 05/30 1 repeat BMP shows creatinine 0.8 and electrolytes in normal limit. AURELIA resolved. Urine culture shows no growth. CPK 38. Serum phosphorus 2.9. 5 history of admission here from March 12, 2025 to March 13, 2025 for treatment of atrial fibrillation; with 2-1 block and EKG in the ER revealing Mobitz type II AV block with echocardiogram on March 13, 2025 that revealed LVEF ~60% with 1+ mitral valve insufficiency and 2+ tricuspid valve insufficiency: Patient saw EP Dr. Dr. More from [facility] electrophysiology past Saturday about 6 days ago 7. Congenital heart disease with ASD; s/p repair, paroxysmal atrial fibrillation: Noted 8. Essential hypertension; blood pressure is elevated. Hold metoprolol 06/01/2025: Blood pressures are controlled with the reinstitution of her medications. Will monitor overnight on telemetry 9. Chronic hyperlipidemia; currently not on treatment -lipid profile shows LDL 77, TC 133, TG 61. HDL 44. Physical Exam Narrative General: Alert, Oriented x3, Cooperative, No apparent distress HEENT: Atraumatic, PERRLA, EOMI, Normocephalic Oral: Moist Mucosa Neck: Supple, No JVD Lungs: Diminished, Normal air movement, No rhonchi, No wheeze, No rales Cardiovascular: Regular rate, Regular Rhythm, Normal S1, Normal S2, No murmurs Abdomen: Soft, Non Tender, Non-Distended, No Hepato-splenomegaly Extremities: No edema, Capillary Refill Less than 3 Seconds Skin: No rashes, No breakdown Musculoskeletal: No Tenderness to Palpation of Joints or Extremities Neurological: No focal neurological deficits, Motor Exam 5/5 strength throughout, Sensory exam intact to light touch and pain Psych/Mental Status: Normal Affect, Appropriate Weight / BMI Weight Weight: 120 lb 9.486 oz Body Mass Index (BMI) 23.5 ABG / Lab / Microbiology Data 06/01/25 06:44 06/02/25 06:14 Laboratory: Laboratory Results - last 24 hr 06/02/25 06:14: Sodium 141, Potassium 3.6, Chloride 105, Carbon Dioxide 27.0, Anion Gap 10, BUN 11, Creatinine 0.67 L, Estim Creat Clear Calc 43.54 L, Est GFR (MDRD) Non-Af 88, BUN/Creatinine Ratio 15.9, Glucose 103 H, Calcium 8.9 Microbiology: Microbiology 05/29/25 18:28 Blood Culture (Wb) - Left Forearm Blood Culture - Preliminary No growth in 48 hours. 05/29/25 18:29 Blood Culture (Wb) - Left Forearm Blood Culture - Preliminary No growth in 48 hours. 05/29/25 19:56 Urine Catheter - Sampson Urine Culture - Final Culture exhibits no growth. 05/29/25 22:50 Mucosa - Nasopharyngeal Respiratory Panel (PCR) - Final D/C Instructions Call your doctor if you observe: Fever of 101 or Higher, Shortness of breath, Dizziness, Fainting spells, Swelling in the ankles, Chest pain and Increased palpitations (irregular heartbeat) DC O2, CPAP, BIPAP Needs Home O2 Discharge instructions: No Meaningful Use Info Meaningful Use Meaningful Use Diagnoses (Choose all that apply): None applicable Discharge Plan Admission Admit Date/Time: 05/29/25 21:54 Attending Provider: Arik Santillan Primary Care Provider: Jame De La Garza Consulting Providers: Kellie Qureshi; Cassidy Tavares; Steven Carr; Yasmin Contreras; Myron Bryan; Steve Ho; Cory Montes; Quincy Martin; yC Rodriguez; Osmin Williamson; Andrew Humphries; Mundo Leiva; Sampson Cuevas NP; Adrianna Box; Pascual Brumfield; Anthony Arnold; Stefano Steward Instructions Additional Instructions / Restrictions: I held your indapamide which is a diuretic type medication which can cause dehydration and lightheadedness. I would like you to follow-up with your primary care doctor in 3 to 5 days to monitor your blood pressure to see if this medication needs to be continued or if it can be discontinued without any major side effect to your blood pressure. Discharge Orders/Prescriptions Prescriptions: Continued sertraline 100 mg tablet 100 mg PO QHS cholecalciferol (vitamin D3) 50 mcg (2,000 unit) capsule 50 mcg PO DAILY diltiazem HCl 180 mg capsule,extended release 24hr 180 mg PO Q24H Patient Comments: [NO ORIGINAL SIG] Eliquis 2.5 mg tablet 2.5 mg PO BID metoprolol succinate 50 mg tablet extended release 24 hr 50 mg PO QPM duloxetine 20 mg capsule,delayed release(DR/EC) 20 mg PO DAILY ascorbic acid (vitamin C) 500 mg tablet 500 mg PO QDAY hydrocodone-acetaminophen 5-325 mg tablet 1 tab PO Q6H PRN PRN (Reason: pain) magnesium oxide 400 mg magnesium tablet 400 mg PO DAILY pantoprazole 40 mg tablet,delayed release (DR/EC) 40 mg PO DAILY Qty: 90 3RF Held indapamide 1.25 mg tablet 0.625 mg PO DAILY Hold Instructions: Resume on 06/10/25. Referrals / Follow Up: Jame De La Garza MD [Primary Care Provider] - 06/08/25 4:00 pm Disposition Disposition (needs filled in before D/C Order can be placed): Home, Self Care Charges/Coding Visit Charges Inpatient E&M: 21541 Disch Hosp >30min
== END 2025-06-02 13:34 | disposition home or self-care (01) | DRG 871 ==
LOC: ED 21:25 → PCU 22:14
PROVIDERS: Internal Medicine; Admitting Provider Internal Medicine; Emergency Provider Emergency Medicine; PCP Family Medicine; Referring Provider Emergency Medicine; Visit Provider Family Medicine
DX: R57.8 Other shock (principal); K72.00 Acute and subacute hepatic failure without coma; E87.20 Acidosis, unspecified; I48.92 Unspecified atrial flutter; N17.9 Acute kidney failure, unspecified; I27.21 Secondary pulmonary arterial hypertension; G25.81 Restless legs syndrome; I48.0 Paroxysmal atrial fibrillation; M06.9 Rheumatoid arthritis, unspecified; I10 Essential (primary) hypertension; I34.0 Nonrheumatic mitral (valve) insufficiency; F41.8 Other specified anxiety disorders; I95.2 Hypotension due to drugs; G47.33 Obstructive sleep apnea (adult) (pediatric); K21.9 Gastro-esophageal reflux disease without esophagitis; M17.11 Unilateral primary osteoarthritis, right knee; M54.9 Dorsalgia, unspecified; I44.39 Other atrioventricular block; E78.5 Hyperlipidemia, unspecified; R00.1 Bradycardia, unspecified; R68.0 Hypothermia, not associated with low environmental temperature; T44.7X5A Adverse effect of beta-adrenoreceptor antagonists, initial encounter; I49.3 Ventricular premature depolarization; G89.29 Other chronic pain; T46.1X5A Adverse effect of calcium-channel blockers, initial encounter; Z79.01 Long term (current) use of 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; Z87.74 Personal history of (corrected) congenital malformations of heart and circulatory system; Z79.899 Other long term (current) drug therapy; Z87.19 Personal history of other diseases of the digestive system; Z90.49 Acquired absence of other specified parts of digestive tract; Z98.890 Other specified postprocedural states
CPT/HCPCS: 36415; 51702; 71045; 71250; 80048; 80053; 80061; 81001; 82533; 82550; 83605; 83735; 83880; 84100; 84443; 84484; 85025; 85610; 85730; 86850; 86900; 86901; 87040; 87086; 87633; 93005; 93308; 97162; 97530; 97802; 99285; A4216; J2405